=== PATIENT | male | born 1940 | race Caucasian/White ===

== ENCOUNTER 2018-03-09 09:57 | Day surgery (SDC) | payer MEDICARE, SELFPAY ==
[2018-03-09 10:15] VITALS: BP 141/78; PULSE 74; RESP 14; TEMP 37.4; O2SAT 96; BMI 30.4
[2018-03-09 10:36] LABS: Prothrombin Time Fingerstick 25.5 SEC (11.9-14.4)
--- NOTE | 2018-03-09 11:00 | COLBX_PTH ---
PATIENT: CLEVELAND MORLEY LOC: EN U#:[id number] AGE/SX: 77/M ROOM: RE03/09/[address]: Dr. Adin Garcia MD : 1940 BED: DIS: 03/09/2018 SPEC #: [id number] RECD: 03/09/18 15:12 STATUS: AASHISH KENRICK #: [id number] DARIANA: 03/09/18 11:[address]: Adin Garcia DEPT: SURGICAL PATHOLOGY RECD BY: Kayla Caputo ENTERED: 03/10/18 10:05 SP TYPE: COLON BX OT DR: Dr. Geoffrey Garcia III, MD Tissues: A - COLON BIOPSY B - Rectum, NOS Procedures: Surgery Specimen Level IV HEADER OPERATION: Colonoscopy (MAC) PRE-OP DIAGNOSIS: Diarrhea TISSUE SUBMITTED: A. Random colonic biopsies, B. Rectal polyp MICROSCOPIC DIAGNOSIS A. Colon, random biopsy: Fragments of colonic mucosa, no pathologic diagnosis. B. Rectal polyp, biopsy: Hyperplastic polyp. MENDEZ:jayjay 03/11/18 MICROSCOPIC DESCRIPTION Slides are reviewed. GROSS DESCRIPTION A - Received in fixative is one container labeled with the patient's name and designated random colonic biopsy. The specimen consists of multiple irregular fragments of light salazar soft tissue that in aggregate measure 1 x 1 x 0.1 cm. The specimen is totally submitted in one cassette. B - Received in fixative is one container labeled with the patient's name and designated rectal polyp. The specimen consists of one irregular fragment of light salazar soft tissue that measures 0.3 x 0.3 x 0.1 cm. The specimen is totally submitted in one cassette. / MENDEZ:jayjay 03/10/18 TC:1 CPT: 55211 x2
[2018-03-09 11:27] VITALS: BP 103/50; BP 141/78; PULSE 70; RESP 16; TEMP 36.6; O2SAT 93
[2018-03-09 11:31] VITALS: BP 105/55; BP 141/78; PULSE 66; RESP 16; O2SAT 93
--- NOTE | 2018-03-09 11:31 | OP.ENDO_ITS ---
Patient Name: Wilmer Thompson Procedure Date: 03/09/2018 10:37 AM Date of : 1940 Age: 77 Procedure: Colonoscopy Indications: Clinically significant diarrhea of unexplained origin Providers: Adin Garcia MD Medicines: See the Anesthesia note for documentation of the administered medications Patient Profile: Last Colonoscopy: February 2014. Complications: No immediate complications. Procedure: Pre-Anesthesia Assessment: - Prior to the procedure, a History and Physical was performed, and patient medications and allergies were reviewed. The patient's tolerance of previous anesthesia was also reviewed. The risks and benefits of the procedure and the sedation options and risks were discussed with the patient. All questions were answered, and informed consent was obtained. Prior Anticoagulants: The patient has taken Coumadin (warfarin), last dose was 1 day prior to procedure. ASA Grade Assessment: II - A patient with mild systemic disease. After reviewing the risks and benefits, the patient was deemed in satisfactory condition to undergo the procedure. After I obtained informed consent, the scope was passed under direct vision. Throughout the procedure, the patient's blood pressure, pulse, and oxygen saturations were monitored continuously. The colonoscope was introduced through the anus and advanced to the cecum, identified by appendiceal orifice and ileocecal valve. The colonoscopy was extremely difficult due to a tortuous colon. Successful completion of the procedure was aided by changing the patient to a supine position and using manual pressure. The patient tolerated the procedure well. The quality of the bowel preparation was good. Scope In: 10:50:58 AM Scope Withdrawal Time 0 hours 6 minutes 0 seconds Scope Out: 11:24:15 AM Total Procedure Duration Time 0 hours 33 minutes 17 seconds Findings: Hemorrhoids were found on perianal exam. Multiple diverticula were found in the sigmoid colon and descending colon. Biopsies for histology were taken with a cold forceps from the entire colon for evaluation of microscopic colitis. A 6 mm polyp was found in the rectum. The polyp was sessile. The polyp was removed with a cold biopsy forceps. Resection and retrieval were complete. Photograph was lost during processing. The exam was otherwise without abnormality. Impression: - Hemorrhoids found on perianal exam. - Diverticulosis in the sigmoid colon and in the descending colon. Biopsied. - One 6 mm polyp in the rectum, removed with a cold biopsy forceps. Resected and retrieved. - The examination was otherwise normal. A clear finding for the diarrhea is not established. Path is pending. Recommendation: - Discharge patient to home. - Resume previous diet. - Continue present medications. - Repeat colonoscopy in 5 years for surveillance based on pathology results. - Telephone my office for pathology results in 1 week. Procedure Code(s): --- Professional --- 92829, Colonoscopy, flexible; with biopsy, single or multiple Diagnosis Code(s): --- Professional --- K64.9, Unspecified hemorrhoids K62.1, Rectal polyp R19.7, Diarrhea, unspecified K57.30, Diverticulosis of large intestine without perforation or abscess without bleeding CPT copyright 2017 [employer]. All rights reserved. The codes documented in this report are preliminary and upon surgical resident review may be revised to meet current compliance requirements. Adin Garcia MD 03/09/2018 11:30:49 AM This report has been signed electronically. Number of Addenda: 0 Note Initiated On: 03/09/2018 10:37 AM
[2018-03-09 11:35] VITALS: BP 104/54; BP 141/78; PULSE 61; RESP 16; O2SAT 99
[2018-03-09 11:39] VITALS: BP 141/78; BP 97/55; PULSE 60; RESP 16; TEMP 36.5; O2SAT 93
[2018-03-09 12:02] VITALS: BP 141/78
== END 2018-03-09 12:04 | disposition home or self-care (01) ==
LOC: EN 09:57 → AC 09:59
PROVIDERS: Family Provider Family Medicine; PCP Family Medicine; Referring Provider Surgery; Visit Provider Surgery
PROC: 0DJD8ZZ Inspection of Lower Intestinal Tract, Via Natural or Artificial Opening Endoscopic (ICD-10-PCS; CPT 45378; principal; 2018-03-09 10:55)
DX: K62.1 Rectal polyp (principal); K64.9 Unspecified hemorrhoids; K57.30 Diverticulosis of large intestine without perforation or abscess without bleeding; R19.7 Diarrhea, unspecified; I48.91 Unspecified atrial fibrillation; F32.9 Major depressive disorder, single episode, unspecified; F41.9 Anxiety disorder, unspecified; I10 Essential (primary) hypertension; E78.00 Pure hypercholesterolemia, unspecified; Z87.891 Personal history of nicotine dependence; Z86.718 Personal history of other venous thrombosis and embolism; Z85.828 Personal history of other malignant neoplasm of skin; Z79.82 Long term (current) use of aspirin; Z79.01 Long term (current) use of anticoagulants; Z79.899 Other long term (current) drug therapy
CPT/HCPCS: 45380; 36416; 85610; 88305; J7120

== ENCOUNTER 2020-08-16 05:23 | Day surgery (SDC) | payer MEDICARE, SELFPAY ==
[2020-08-10 12:34] VITALS: BMI 28.8
--- NOTE | 2020-08-16 | EGD_PTH ---
PATIENT: CLEVELAND MORLEY LOC: EN U#:[id number] AGE/SX: 79/M ROOM: RE08/16/[address]: Dr. Adin Garcia MD : 1940 BED: DIS: 08/16/2020 SPEC #: [id number] RECD: 08/16/20 10:44 STATUS: AASHISH CHOUDHARY #: [id number] DARIANA: 08/16/20 00:[address]: Adin Garcia DEPT: SURGICAL PATHOLOGY RECD BY: Pablo Simons ENTERED: 08/16/20 10:45 SP TYPE: EGD BIOPSY OT DR: Dr. Geoffrey Garcia III, MD Tissues: A - Duodenum, NOS B - Gastric mucous membrane C - Cardioesophageal junction D - Gastric mucous membrane E - Esophageal mucous membrane Procedures: Special Stain Group II Surgery Specimen Level IV Alcian Blue/PAS (control) HEADER OPERATION: EGD ([facility]) PRE-OP DIAGNOSIS: Generalized abdominal pain, nausea TISSUE SUBMITTED: A - Duodenum biopsies, B - Antrum biopsy for H. pylori and path, C - Epigastric cardia polyp biopsy, D - GE junction biopsy, E - Mid esophagus biopsy MICROSCOPIC DIAGNOSIS A. Duodenum, biopsy: Mild Mary's gland hyperplasia. B. Gastric antrum, biopsy: Mild chronic gastritis with focal acute gastritis. See comment. C. Gastric cardia polyp, biopsy: Consistent with hyperplastic polyp, mildly inflamed. D. Gastroesophageal junction, biopsy: Chronic inflammation. Focal changes of reflux. No evidence of goblet cell metaplasia. See comment. E. Mid esophagus, biopsy: Fragments of benign squamous mucosa. No evidence of inflammation. AM:jayjay 08/17/2020 COMMENT B. The results of immunohistochemistry for Helicobacter pylori will be reported separately ([id number]). D. Alcian blue/PAS stain with matched control supports the above diagnosis. MICROSCOPIC DESCRIPTION Slides are reviewed. GROSS DESCRIPTION A - Received in fixative is one container labeled with the patient's name and designated duodenal biopsy. The specimen consists of multiple irregular fragments of light salazar soft tissue that in aggregate measure 0.7 x 0.5 x 0.1 cm. The specimen is totally submitted in one cassette. B - Received in fixative is one container labeled with the patient's name and designated antrum biopsy. The specimen consists of one irregular fragment of light salazar soft tissue that measures 0.5 x 0.2 x 0.1 cm. The specimen is totally submitted in one cassette. C - Received in fixative is one container labeled with the patient's name and designated epigastric polyp. The specimen consists of multiple irregular fragments of light salazar soft tissue that in aggregate measure 1.5 x 0.5 x 0.1 cm. The specimen is totally submitted in one cassette. D - Received in fixative is one container labeled with the patient's name and designated GE junction. The specimen consists of multiple irregular fragments of light salazar soft tissue that in aggregate measure 1 x 0.5 x 0.1 cm. The specimen is totally submitted in one cassette. E - Received in fixative is one container labeled with the patient's name and designated mid esophagus biopsy. The specimen consists of two irregular fragments of light salazar soft tissue that in aggregate measure 0.6 x 0.6 x 0.1 cm. The specimen is totally submitted in one cassette. / AM:jayjay 08/16/20 TC:2 CPT: 02117 x5, 18580
[2020-08-16 05:50] VITALS: BP 129/62; PULSE 59; RESP 16; TEMP 37.2; O2SAT 97; BMI 28.5
[2020-08-16] MEDS: Lactated Ringers 1,000 ML 100 ML IV (06:04)
[2020-08-16 06:11] LABS: Prothrombin Time Fingerstick 22.2 SEC (11.9-14.4)
--- NOTE | 2020-08-16 06:13 | HP.PCM_ITS ---
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: No Is patient in pain?: No (resolved) Allergies No Known Allergies Allergy (Verified 08/10/20 12:35) Medications amlodipine 5 mg tablet 5 mg PO DAILY 02/19/18 [History Confirmed 08/10/20] atorvastatin 20 mg tablet 20 mg PO DAILY 02/19/18 [History Confirmed 08/10/20] flecainide 100 mg tablet 100 mg PO Q12H 02/19/18 [History Confirmed 08/10/20] lisinopril 10 mg-hydrochlorothiazide 12.5 mg tablet 1 tab PO DAILY 02/19/18 [History Confirmed 08/10/20] sertraline 50 mg tablet 50 mg PO DAILY 02/19/18 [History Confirmed 08/10/20] warfarin 5 mg tablet 5 mg PO MOTUWETHFRSA 02/19/18 [History Confirmed 08/10/20] Warfarin Sodium 7 mg PO GILL 03/08/18 [History Confirmed 08/10/20] tamsulosin 0.4 mg capsule cap PO 08/10/20 [History Confirmed 08/10/20] [facility] Medical History (Updated 08/10/20 @ 13:[address] Adin Garcia MD) Nausea (Acute) Abdominal pain (Acute) Anxiety (Acute) Atrial fibrillation (Acute) Diarrhea (Acute) History of DVT (deep vein thrombosis) (Acute) History of basal cell carcinoma (Acute) History of colonic polyps (Acute) Hyperlipidemia (Acute) CKD (chronic kidney disease) (Chronic) Diverticulosis (Chronic) Hypertension (Chronic) Surgical History (Updated 08/10/20 @ 12:13 by Do [facility]) History of colonoscopy (Acute ~2018) History of elbow surgery (Acute) History of tonsillectomy (Acute) history bilateral cataract surgery (Acute) Family History (Updated 08/10/20 @ 12:16 by Do [employer]) Mother CAD (coronary artery disease) Father CAD (coronary artery disease) CHF (congestive heart failure) Brother Cancer Stomach Myocardial infarction Sister Asthma Social History (Updated 08/10/20 @ 13:[address] Adin Garcia MD) Smoking Status: Former smoker alcohol intake: current alcohol intake frequency: 0-2 drinks per day Alcohol type: other details: bhavin substance use type: does not use HPI HPI HPI: CLEVELAND MORLEY, is a 79 M who presents to the office today for surgical consultation regarding abdominal pain issues. The patient is referred by Dr. Geoffrey Garcia III and a written copy my surgical consult recommendations will return to him. Patient states that he has been unwell since Jayla time 2019. He has been complaining of a low abdominal pain. Nausea. No bright red blood per rectum or melena. No particular foods aggravate his situation but he is automatically dr opped down to a more bland diet. He has been feeling fatigued. He denies any exposure to COVID-19. He has not had any testing for COVID-19. Because of the discomfort he thought maybe it was a prostate infection but he states he was checked for that. He states that he had an ultrasound that was not revealing. We have evidence of a recent CT scan. That scan was performed without oral contrast but with and without IV contrast. Renal pathology was being evaluated. There was a 1.1 cm exophytic anterior lower pole lesion the right kidney. 3 mm calculus interpolar on the left. 1.8 cm simple cyst on the left. 1.2 cm exophytic lesion. There is not felt to be any biliary or bile findings albeit not with oral contrast. Mild hyperdense bilateral renal cyst. No acute pathology. Most recent laboratory demonstrates demonstrates normal liver function tests. Albumin 4.6. Total bilirubin 0.6. Alk phos 69. AST 20. His BUN is 24 and creatinine 1.43. GFR 48. Glucose slightly elevated 103. His white blood cell count 7.39 with a hemoglobin 14.8 hematocrit 42.9 platelet count 207,000. Now it is of note that I assisted him with a colonoscopy in 2018. There were no acute findings. Random colonic biopsies which were performed for diarrhea were normal After being seen by Dr. Geoffrey Garcia III the patient was initiated on omeprazole therapy. He actually is feeling some better. The nausea has improved. The abdominal pain has improved. HPI HPI HPI: CLEVELAND MORLEY, is a 79 M who presents to the office today for ROS General General: Yes appetite; no weight change, fatigue, colon cancer, breast cancer or weakness HEENT HEENT: No difficulty swallowing, eye injury, eye surgery, swollen glands or hoarseness Endo Endocrine: No thyroid disease, diabetes mellitus, thyroid cancer, Hair loss, heat intolerance or cold intolerance Musc Musculoskeletal: No back problems, arthritis, rheumatoid arthritis, gout or joint pain Cardio Cardiovascular: Yes atrial fibrillation and high blood pressure; no murmur, pacemaker, heart disease, heart attack, heart stent, palpitations, shortness of breat with exertion or chest pain Psych Psychiatric: Yes anxiety; no depression or hearing voices Resp Respiratory: No shortness of breath, No sleep apnea, No cough, No COPD, No asthma, No emphysema, No wheezing Gastro Gastrointestinal: Yes abdominal pain, Yes nausea or vomiting, No diarrhea, No constipation, No blood in stool, No acid reflux, No hemorrhoids, No ulcers, No gallbladder problem, No black,tarry stools Julio Cesar Hematologic: Yes blood thinners, No blood disorders, No bleeding, No anemia, Yes blood clots Neuro Neurologic: No weakness Exam Const General: cooperative, healthy appearing, comfortable, no acute distress Other: Diffuse tremors noted HENDC Head: normal to inspection Eyes General: appearance normal, both eyes and all related structures Chest Other: Increased anterior posterior diameter Resp Effort & Inspection: normal respiratory effort Auscultation: clear to auscultation bilaterally Cardio Rate: regular rate Rhythm: regular rhythm Heart Sounds: no murmurs GI Palpation: soft, no hepatosplenomegaly Auscultation: normal bowel sounds Musc Cervical Spine: normal cervical lordosis Neuro Cognition: normal cognition Extrem General: no calf tenderness Psych Affect: normal affect Assessment & Plan Problems 1. Generalized abdominal pain R10.84 2. Nausea R11.0 Plan Nausea and abdominal pain of undetermined etiology. Slightly improved on omeprazole therapy. I recommend a esophagogastroduodenoscopy with possible biopsy or polypectomy as indicated. He is aware of the technique, benefit, risk, alternatives. He is on Coumadin because of atrial fibrillation. We will have him hold that 2 days. He does have an interest in going to [place]. We will try to expedite his care. It may very well be that ongoing omeprazole therapy is the treatment of choice. We will inspect for active upper GI findings as well as H. pylori and eosinophilic esophagitis. I appreciate the opportunity of assisting with his surgical care Copy: Dr. Geoffrey Garcia, [facility] Adin Garcia M.D., F.A.C.S. I have re-examined the patient. There are no clinical changes since date of exam. Procedure Criteria Procedure Type: Elective COVID Risk Discussion: The surgeon/proceduralist and patient have discussed in detail the risk of exposure to and/or potential harm posed by the COVID-19 virus with having a surgery/procedure at this time versus the risk of delaying the surgery/procedure. It is not possible to know either the risk of delaying the surgery or procedure or chance of getting an infection with perfect accuracy, but a joint decision was made between the patient and the surgeon/proceduralist to proceed at this time with the scheduled surgery/procedure as indicated on the consent form.
--- NOTE | 2020-08-16 06:30 | IMM_PTH ---
PATIENT: CLEVELAND MORLEY LOC: EN U#:[id number] AGE/SX: 79/M ROOM: RE08/16/[address]: Dr. Adin Garcia MD : 1940 BED: DIS: 08/16/2020 SPEC #: [id number] RECD: 08/16/20 12:21 STATUS: AASHISH REAddison #: [id number] DARIANA: 08/16/20 06:[address]: Adin Garcia DEPT: IMMUNOHISTOCHEMISTRY RECD BY: Chanda Sidhu ENTERED: 08/16/20 12:22 SP TYPE: IMMUNO OTHR DR: Dr. Geoffrey Garcia III, MD Tissues: B - Stomach, NOS Procedures: H Pylori (initial) PHYSICIAN & INSTITUTION [place] [address] SPECIMEN INFORMATION: Tissue Source: B - Antrum biopsy Clinical Info: Abdominal pain, nausea Specimen Number: [id number] CPT code: 87038 METHODOLOGY: Deparaffinized sections of prefer/formalin-fixed tissue or PAP/DQ stained slides are incubated with monoclonal/polyclonal antibodies/oligonucleotide probes. Localization is made via biotin free immunoperoxidase method. Appropriate controls are performed and reacted as expected. Results on target cell population are indicated in the following table: RESULTS: ANTIBODY / CLONE RESULT Block B H Pylori (polyclonal) negative These tests were developed and their performance characteristics determined by [facility]. They may not have been cleared or approved by the U.S. Food and Drug Administration. The FDA has determined that such clearance or approval is not necessary. INTERPRETATION: B. Antrum, biopsy: Negative for Helicobacter pylori organisms. AM:jayjay 08/17/2020
[2020-08-16 07:00] VITALS: BP 129/62; BP 92/57; PULSE 61; RESP 16; TEMP 36.9; O2SAT 93
--- NOTE | 2020-08-16 07:02 | OP.EGD_ITS ---
Patient Name: Wilmer Thompson Procedure Date: 08/16/2020 6:23 AM Date of : 1940 Age: 79 Procedure: Upper GI endoscopy Indications: Generalized abdominal pain Providers: Adin Garcia MD Referring MD: Geoffrey Garcia Iii Medicines: See the Anesthesia note for documentation of the administered medications Complications: No immediate complications. Procedure: Pre-Anesthesia Assessment: - Prior to the procedure, a History and Physical was performed, and patient medications and allergies were reviewed. The patient's tolerance of previous anesthesia was also reviewed. The risks and benefits of the procedure and the sedation options and risks were discussed with the patient. All questions were answered, and informed consent was obtained. Prior Anticoagulants: The patient has taken no previous anticoagulant or antiplatelet agents. ASA Grade Assessment: II - A patient with mild systemic disease. After reviewing the risks and benefits, the patient was deemed in satisfactory condition to undergo the procedure. After obtaining informed consent, the endoscope was passed under direct vision. Throughout the procedure, the patient's blood pressure, pulse, and oxygen saturations were monitored continuously. The Endoscope was introduced through the mouth, and advanced to the second part of duodenum. The upper GI endoscopy was accomplished without difficulty. The patient tolerated the procedure well. Scope In: 6:41:05 AM Scope Out: 6:53:37 AM Total Procedure Duration Time 0 hours 12 minutes 32 seconds Findings: Esophagitis with no bleeding was found 41 cm from the incisors. Biopsies were taken with a cold forceps for histology. A 1 cm hiatal hernia was present. The middle third of the esophagus was normal. Biopsies were taken with a cold forceps for histology. A single 10 mm sessile polyp with no bleeding and stigmata of recent bleeding was found in the cardia. The polyp was removed with a cold biopsy forceps. Resection and retrieval were complete. Diffuse mildly erythematous mucosa without bleeding was found in the gastric antrum. Biopsies were taken with a cold forceps for histology. Diffuse mild inflammation characterized by erythema and friability was found in the duodenal bulb. Biopsies were taken with a cold forceps for histology. Impression: - Reflux esophagitis. Biopsied. - 1 cm hiatal hernia. - Normal middle third of esophagus. Biopsied. - A single gastric polyp. Resected and retrieved. - Erythematous mucosa in the antrum. Biopsied. - Duodenitis. Biopsied. Recommendation: - Discharge patient to home. - Resume previous diet. - Continue present medications. - Telephone my office for pathology results in 1 week. Findings of duodenitis could correlate with nausea and abdominal pain improved with omeprazole. Will notify pt of pathology. Procedure Code(s): --- Professional --- 37612, Esophagogastroduodenoscopy, flexible, transoral; with biopsy, single or multiple Diagnosis Code(s): --- Professional --- K21.0, Gastro-esophageal reflux disease with esophagitis K44.9, Diaphragmatic hernia without obstruction or gangrene K31.7, Polyp of stomach and duodenum K31.89, Other diseases of stomach and duodenum K29.80, Duodenitis without bleeding R10.84, Generalized abdominal pain CPT copyright 2017 [employer]. All rights reserved. The codes documented in this report are preliminary and upon clinical scientist review may be revised to meet current compliance requirements. Adin Garcia MD 08/16/2020 7:01:52 AM This report has been signed electronically. Number of Addenda: 0 Note Initiated On: 08/16/2020 6:23 AM
--- NOTE | 2020-08-16 07:02 | OP.CCLET_ITS ---
08/16/2020 Geoffrey Garcia [address] [place] [address] Re : Upper GI endoscopy procedure for Wilmer Guinda Dear Dr. Garcia This procedure was performed on August. My impressions and recommendations are as follows: Impressions : - Reflux esophagitis. Biopsied. - 1 cm hiatal hernia. - Normal middle third of esophagus. Biopsied. - A single gastric polyp. Resected and retrieved. - Erythematous mucosa in the antrum. Biopsied. - Duodenitis. Biopsied. Recommendations : - Discharge patient to home. - Resume previous diet. - Continue present medications. - Telephone my office for pathology results in 1 week. Findings of duodenitis could correlate with nausea and abdominal pain improved with omeprazole. Will notify pt of pathology. My findings are described in the full procedure note, which is enclosed. If I can be of further assistance, please feel free to contact me at Doctor phone number(s): Work: . Sincerely, Adin Garcia MD 08/16/2020 7:01:52 AM This report has been signed electronically.
[2020-08-16 07:05] VITALS: BP 112/71; BP 129/62; PULSE 56; RESP 16; O2SAT 93
[2020-08-16 07:10] VITALS: BP 129/62; BP 93/57; PULSE 57; RESP 16; O2SAT 93
[2020-08-16 07:15] VITALS: BP 116/69; BP 129/62; PULSE 60; RESP 16; TEMP 36.9; O2SAT 94
[2020-08-16 07:25] VITALS: BP 129/62
== END 2020-08-16 07:41 | disposition home or self-care (01) ==
LOC: EN 05:24 → AC 05:25
PROVIDERS: PCP Family Medicine; Referring Provider Family Medicine; Visit Provider Surgery
PROC: 0DJ08ZZ Inspection of Upper Intestinal Tract, Via Natural or Artificial Opening Endoscopic (ICD-10-PCS; CPT 43235; principal; 2020-08-16 06:25)
DX: K21.00 Gastro-esophageal reflux disease with esophagitis, without bleeding (principal); K29.50 Unspecified chronic gastritis without bleeding; K29.80 Duodenitis without bleeding; K44.9 Diaphragmatic hernia without obstruction or gangrene; N18.30 Chronic kidney disease, stage 3 unspecified; F32.9 Major depressive disorder, single episode, unspecified; Z20.828 Contact with and (suspected) exposure to other viral communicable diseases; K31.7 Polyp of stomach and duodenum; I48.91 Unspecified atrial fibrillation; E78.5 Hyperlipidemia, unspecified; F41.9 Anxiety disorder, unspecified; I12.9 Hypertensive chronic kidney disease with stage 1 through stage 4 chronic kidney disease, or unspecified chronic kidney disease; Z86.718 Personal history of other venous thrombosis and embolism; Z87.891 Personal history of nicotine dependence; Z79.01 Long term (current) use of anticoagulants; Z79.899 Other long term (current) drug therapy
CPT/HCPCS: 43239; 36416; 85610; 87426; 88305; 88313; 88342; C9803; J7120; J2405

== ENCOUNTER 2020-08-24 11:41 | Emergency (ER) | payer MEDICARE, SELFPAY ==
[2020-08-24 11:42] VITALS: BP 125/62; PULSE 53; RESP 14; TEMP 36.4; O2SAT 99; BMI 30.4
--- NOTE | 2020-08-24 11:50 | EKG12_ITS ---
Test Reason : SYNCOPE Blood Pressure : / mmHG Vent. Rate : 053 BPM Atrial Rate : 053 BPM P-R Int : 262 ms QRS Dur : 182 ms QT Int : 454 ms P-R-T Axes : 047 -55 068 degrees QTc Int : 426 ms Sinus bradycardia with 1st degree A-V block Left axis deviation Right bundle branch block Left ventricular hypertrophy with repolarization abnormality Abnormal ECG Confirmed by OMAR PARKS, JIM ([id number]), magazine editor LIZZIE BEARD ([id number]) on 08/27/2020 10:54:57 A M Referred By: DWIGHT/NICKY Confirmed By:JOSE NELSON MD
--- NOTE | 2020-08-24 11:52 | ED.DCSUM_ITS ---
History of Present Illness Chief Complaint: Syncope Informant: Patient, Family Narrative: 9-year-old male presenting with near syncopal episode. This occurred after his urology visit. Patient was supposed to have a urinalysis performed and was having difficulty urinating. He was not straining he states. Patient states that after he walked outside of the building he started to feel little lightheaded. He sat down. He waited about 10 minutes until he felt better. On his way over here he had a little bit more lightheadedness. Patient is on Coumadin for atrial fibrillation. He denies any chest pain, palpitations, shortness of breath. Past Medical History - Allergies and Home Meds Allergies/Adverse Reactions: Allergies No Known Allergies Allergy (Verified 08/24/20 11:46) Primary Care Physician: Geoffrey Garcia III, MD [Primary Care Provider] - Prior records reviewed: Yes Past Medical History: - - Atrial fibrillation, CKD, hypertension, hyperlipidemia, atrial fibrillation, anxiety Lives: Spouse/ Significant Other Smoking Status: Former smoker Alcohol: None Drugs: None Review of Systems General: Denies: Chills, Fever, Sweats Eyes: Denies: Visual changes - bilaterally, Diplopia ENT: Denies: Rhinorrhea, Sore throat Cardiovascular: Reports: - - Lightheadedness. Denies: Chest pain, Palpitations Respiratory: Denies: Dyspnea, Cough, Dyspnea on exertion Gastrointestinal: Denies: Abdominal pain, Nausea, Vomiting, Diarrhea, Melena, Hematochezia Genitourinary: Denies: Dysuria, Hematuria, Frequency Musculoskeletal: Denies: Back pain, Extremity Pain Skin: Denies: Rash, Wounds Neurological: Denies: Headache, Weakness, Numbness Psych: Denies: Depression, Anxiety, Suicidal thoughts, Suicidal ideations, -, - Physical Exam Vital Signs/Narrative: Vital Signs Temp Pulse Resp BP Pulse Ox 08/24/20 11:42 97.5 F L 53 L 14 125/62 H 99 Inital Vital Signs reviewed: Yes General: Well nourished, No Acute Distress Head: Normocephalic, Atraumatic Eyes: Perrl, EOMI. Negative for: Pale conjunctiva ENT: Moist mucous membranes, No rhinorrhea Cardiovascular: Regular rate, Regular rhythm Respiratory: No distress, CTA bilaterally Extremities: Nontender, No edema Skin: Normal color, No rash, Cyanosis, Diaphoresis Neurological: Alert, Oriented x3, Cranial nerves II-XII grossly intact Psychological: Normal affect, Normal Mood Diagnostic/Tx/Re-eval Clinical Impression(s) from Imaging Studies Chest X-Ray 08/24/20 12:15 IMPRESSION: No acute abnormality is seen. Electronically Signed: Willam Levy MD at 12:47 EDT , Service support , Brain CT 08/24/20 12:54 IMPRESSION: Chronic involutional changes of the brain. Electronically Signed: Willam Levy MD at 13:53 EDT , Service support , Laboratory Data 08/24/20 08/24/20 08/24/20 12:11 12:11 12:11 WBC 7.9 RBC 4.21 L Hgb 13.6 Hct 39.0 L MCV 92.6 MCH 32.3 H MCHC 34.9 RDW Std Deviation 39.3 RDW Coeff of Pierre 11.6 Plt Count 170 MPV 9.7 Immature Gran % (Auto) 0.400 Neut % (Auto) 78.6 H Lymph % (Auto) 9.9 L [place] % (Auto) 10.4 H Eos % (Auto) 0.4 Baso % (Auto) 0.3 Absolute Neuts (auto) 6.2 Absolute Lymphs (auto) 0.78 L Nucleated RBC % 0 PT 21.7 H INR 1.9 Sodium 129 L Potassium 4.0 Chloride 96 L Carbon Dioxide 27.0 Anion Gap 6 BUN 31 H Creatinine 1.98 H Estim Creat Clear Calc 31.75 Est GFR (MDRD) Af Amer 42 L Est GFR (MDRD) Non-Af 35 L BUN/Creatinine Ratio 15.7 Glucose 147 H Calcium 9.0 Troponin I 0.016 - Medical Decision Making Patient with near syncopal episode x2 prior to arrival. He denies any chest pain, palpitations, shortness of breath. He does have a slight posterior he adache. He denies any head injury. Patient had EKG performed on arrival which shows sinus bradycardia with first-degree AV block at 53 bpm as interpreted by myself. Patient is orthostatic negative. Patient had CT brain which is negative for acute findings. 1 view chest x-ray as interpreted by myself shows no acute cardiopulmonary process. Patient CBC shows no leukocytosis. Hemoglobin is stable. Patient's BMP does show an increase in his creatinine from 1.43-1.98 from August 06 this month. It does not appear to be prerenal. Patient's medications were reviewed and it is noted that he is on lisinopril HCTZ 10?12 0.5. Patient was discussed with Dr. Durant who recommended giving him a prescription for just the lisinopril and keeping his amlodipine 5 mg. He is to schedule an office appointment in 2 weeks for repeat labs and blood pressure check. Patient and acknowledged understanding. Patient stable for discharge at this time. Impression: 1. Near syncope 2. Acute kidney injury ED Disposition - Plan for ED Patient: Disposition: Home or Assisted Living Instructions: Kidney Disease: Understanding Fluids, ED Near-Fainting, Uncertain Cause Prescriptions: Lisinopril [Zestril] 10 mg PO DAILY #30 tablet Transmission Status: Received by [facility] Referrals: Geoffrey Garcia III, MD [Primary Care Provider] -
[2020-08-24] MEDS: 0.9% Normal Saline 1,000 ML 999 ML IV (12:00)
--- NOTE | 2020-08-24 12:15 | RAD_ITS ---
STUDY: X-RAY CHEST REASON FOR EXAM: Male, 79 years old. Chest pain TECHNIQUE: Single AP portable view of the chest. COMPARISON: None. FINDINGS: EKG electrodes are seen. The lungs are clear and expanded. There is no demonstrated pleural abnormality. Normal size heart. Normal mediastinum and wyatt. Normal visualized pulmonary arteries. Normal visualized aortic arch and descending thoracic aorta. There are diffuse degenerative changes of the visualized thoracic spine. Normal visualized ribs, clavicles, and shoulders. There is no demonstrated abnormality of the visualized soft tissue structures of the upper abdomen. RAD/Chest 1 View (Portable) IMPRESSION: No acute abnormality is seen. Electronically Signed: Willam Levy MD at 12:47 EDT , Service support ,
[2020-08-24 12:26] LABS: Absolute Lymphocyte Count 0.78 X10^3/uL (0.83-4.51); Absolute Neutrophil Count 6.2 X10^3/uL (2.0-7.7); Basophil# 0.02 X10^3/uL; Basophil% 0.3 % (0-1); Eosinophil# 0.03 X10^3/uL; Eosinophils% 0.4 % (0-5); Hemoglobin 13.6 g/dL (13.0-16.5); Lymphocyte # 0.78 X10^3/ul (4.0); Lymphocyte % 9.9 % (19-41); Mean Corp Hgb Conc 34.9 g/dL (32-36); Mean Corpuscular Hgb 32.3 pg (27.0-32.0); Mean Corpuscular Volume 92.6 fL (80-94); Mean Platelet Vol. 9.7 fl (6.2-12.0); Monocyte# 0.82 X10^3/uL; Monocyte% 10.4 % (0-10); NRBC Flagged by Analyzer 0 % (0-5); Neutrophil # 6.19 X10^3/uL (2.7-7.7); Neutrophil % 78.6 % (47-70); Platelet Count 170 K/mm3 (150-450); RBC Distribution Width CV 11.6 % (11.6-14.6); RBC Distribution Width SD 39.3 fl (35.1-43.9); Red Blood Count 4.21 M/mm3 (4.6-6.2); White Blood Count 7.9 K/mm3 (4.4-11.0)
[2020-08-24 12:35] LABS: International Normalized Ratio 1.9; Prothrombin Time (Protime)PT. 21.7 SECONDS (11.7-14.9)
[2020-08-24 12:45] LABS: Anion Gap 6 (5-15); BUN 31 mg/dL (7-18); BUN/Creat Ratio 15.7 RATIO (10-20); Chloride 96 mmol/L (98-107); Creatinine, Serum 1.98 mg/dL (0.70-1.30); EST Glomerular Filtration Rate 35 mL/min (>60); Est Glom Filt Rate - Afr Amer 42 mL/min (>60); Estimated Creatinine Clearance 31.75 ml/min; Glucose 147 mg/dL (74-106); Sodium Level 129 mmol/L (136-145)
--- NOTE | 2020-08-24 12:54 | CT_ITS ---
STUDY: CT BRAIN WITHOUT CONTRAST REASON FOR EXAM: Male, 79 years old. HEADACHE. Near syncopal episode. RADIATION DOSAGE (If Supplied By Facility): CTDIvol = ( 38.43 ) mGy, DLP = ( 755.92 ) mGycm TECHNIQUE: Transaxial CT imaging of the brain was performed without administration of intravenous contrast material. Individualized dose optimization techniques were used for this CT. COMPARISON: No relevant priors. FINDINGS: Normal soft tissue structures. Normal calvarium. There is mild cerebral atrophy with widening of the extra-axial spaces and ventricular dilatation. Normal white matter tracts of the cerebral hemispheres. Normal basal ganglia and thalami. Normal brainstem. Normal cerebellum. There is no intracranial hemorrhage. There are no findings of an acute ischemic infarction. Atherosclerotic calcification of the cavernous portions of the internal carotid arteries bilaterally. Normal visualized paranasal sinuses. CT/Brain/Head without Contrast IMPRESSION: Chronic involutional changes of the brain. Electronically Signed: Willam Levy MD at 13:53 EDT , Service support ,
[2020-08-24 13:12] VITALS: BP 112/65; BP 118/54; BP 125/73; PULSE 55; PULSE 58; PULSE 60; PULSE 61; RESP 14; O2SAT 99
[2020-08-24 14:48] VITALS: BP 121/64; PULSE 61; RESP 12; O2SAT 96
== END 2020-08-24 15:04 | disposition home or self-care (01) ==
PROVIDERS: Emergency Provider Student in an Organized Health Care Education/Training Program; PCP Family Medicine
DX: R55 Syncope and collapse (principal); N17.9 Acute kidney failure, unspecified; N18.9 Chronic kidney disease, unspecified; I48.91 Unspecified atrial fibrillation; Z87.891 Personal history of nicotine dependence; Z79.01 Long term (current) use of anticoagulants
CPT/HCPCS: 70450; 71045; 80048; 84484; 85025; 85610; 93005; 96360; 96361; 99285; A4216

== ENCOUNTER 2025-03-02 15:56 | Inpatient (IN) | payer MEDICARE, SELFPAY ==
[2025-03-02] VITALS (10 sets, daily range): BP systolic 97–177; BP diastolic 58–96; PULSE 64–85; RESP 11–18; TEMP 36.4–36.6; O2SAT 93–99; BMI 30.5
--- NOTE | 2025-03-02 16:16 | RAD_ITS ---
PROCEDURE: HIP, UNI W/ PELVIS 2-3 VIEWS 03/02/2025 REASON FOR EXAM: INJURY/PAIN TECHNIQUE: Procedure Code: RAD Modality: DX Procedure: HIP, UNI W/ PELVIS 2-3 VIEWS Laterality: FINDINGS: No evidence of acute fracture or dislocation. [id number] degenerative changes of the bilateral hips. Degenerative changes of the partially visualized spine. RAD/HIP, UNI W/ Pelvis 2-3 Views IMPRESSION: No acute osseous abnormalities. Bilateral hip osteoarthrosis. Reading Location: [id number]
--- NOTE | 2025-03-02 16:40 | CT_ITS ---
PROCEDURE: BRAIN/HEAD WITHOUT CONTRAST 03/02/2025 REASON FOR EXAM: INJURY/PAIN TECHNIQUE: Procedure Code: CTBR Modality: CT Procedure: BRAIN/HEAD WITHOUT CONTRAST Coronal and Sagittal reconstruction series were provided. One or more dose reduction techniques were used (e.g., Automated exposure control, adjustment of the mA and/or kV according to patient size, use of iterative reconstruction technique. RADIATION DOSE SUMMARY: CTDlvol: 44 mGy DLP: 914 mGycm COMPARISON: 08/24/2020. FINDINGS: The ventricles are normal in size and midline in position. No evidence of acute hemorrhage or infarction. No extra-axial blood or fluid collections. The paranasal sinuses and mastoid air cells are clear. The calvarial vault and skull base are intact. CT/Brain/Head without Contrast IMPRESSION: No acute intracranial abnormality. Reading Location: [id number]
--- NOTE | 2025-03-02 17:08 | EX.ED.GENINJ ---
HPI History of Present Illness Chief Complaint: Fall Detail of Chief Complaint: Patient was braiding the house and slipped and fell onto his right side. Informant: patient and spouse/S.O. Onset/Context/Timing Onset: Today and Hours Mechanism/Context: Blunt Injury and Fall Location of pain/injuries: Right hip Quality of Pain: Dull and Aching Location: Over the right greater trochanteric region and buttocks Current Severity: Mild Maximum Severity: Severe Worsened by: Movement and increased as he waited in the emergency department Relieved by: Temporary relief with Dilaudid. Associated Symptoms Associated Symptoms: Positive for Loss of function and Inability to ambulate; Negative for Parasthesias, Weakness or Loss of consciousness Narrative Narrative: Patient is an 84-year-old male. He slipped and fell while spraining the siding with Clorox. He presents because of trauma to his head, upper extremity and right hip area. He is on anticoagulant. He is on Coumadin. Is on Coumadin for prior DVT and dysrhythmia. Reviewing records indicates he has history of atrial fibrillation. He denies headache, double vision, blurred vision or loss of vision. Eyes cardona ears decreased hearing. Denies neck pain. He denies paresthesia, anesthesia or motor weakness in the upper or lower extremity. He denies chest pain, pressure, tightness or heaviness. No shortness of breath or difficulty breathing. He denies abdominal pain. Denies flank pain. He denies pain in his upper extremities or his left lower extremity. He does have cuts that will require repair. He denies low back pain. Tetanus Immunization: 5-10 years Prior similar symptoms: No Recent Illness/Hospitalization: No [facility] Medical History Acetabulum fracture Nausea Abdominal pain History of basal cell carcinoma CKD (chronic kidney disease) Diverticulosis Hyperlipidemia History of colonic polyps Diarrhea Anxiety Hypertension History of DVT (deep vein thrombosis) Atrial fibrillation Home Medications ?Medication ?Instructions ?Recorded ?Last Taken ?Type atorvastatin 20 mg tablet (Lipitor) 20 mg PO DAILY 02/19/18 Unknown History warfarin 5 mg tablet (Coumadin) 5 mg PO MOTUWETHFRSA 02/19/18 03/07/18 History warfarin 6 mg tablet 5 mg PO SUTUWETHSA 03/08/18 Unknown History lisinopril 10 mg tablet 10 mg PO DAILY #30 tabs 03/19/21 Unknown Rx albuterol sulfate 90 mcg/actuation 2 puff inhalation DAILY PRN 03/02/25 Unknown History aerosol inhaler shortness of breath or wheezing doxycycline hyclate 100 mg tablet 100 mg PO BID 03/02/25 Unknown History sertraline 100 mg tablet 100 mg PO DAILY 03/02/25 Unknown History umeclidinium 62.5 mcg-vilanterol inhalation DAILY 03/02/25 Unknown History 25 mcg/actuation powdr for inhalation (Anoro Ellipta) Allergy/AdvReac Type Severity Reaction Status Date / Time No Known Allergies Allergy Verified 03/02/25 15:57 Family History (Updated 08/10/20 @ 12:16 by Do Cornell) Mother CAD (coronary artery disease) Father CAD (coronary artery disease) CHF (congestive heart failure) Brother Cancer Stomach Myocardial infarction Sister Asthma Surgical History S/P Mohs surgery for basal cell carcinoma History of colonoscopy (~2017) history bilateral cataract surgery History of elbow surgery History of tonsillectomy Social History Smoking Status: Former smoker alcohol intake: current alcohol intake frequency: 0-2 drinks per day Alcohol type: other details: bhavin substance use type: does not use ROS ROS ED Constitutional Constitutional ED: Denies chills, fever(s), subjective or sweats Eyes Eyes: Denies blurry vision or change in vision ENT ENT ED: Denies ear pain, rhinorrhea or sore throat Cardiovascular Cardiovascular: Denies chest pain, palpitations or racing heartbeat Respiratory/Chest Respiratory/Chest: Denies cough, dyspnea or dyspnea on exertion Gastrointestinal Gastrointestinal: Denies abdominal pain, melena, nausea or vomiting Genitourinary Genitourinary ED: Denies dysuria, hematuria or urinary frequency Musculoskeletal Musculoskeletal: Reports other Details: Pain right hip region ; Denies arthralgias, back pain, myalgias or neck pain Integumentary Reports rash Psychiatric Psychiatric: Denies anxiety or depression Endocrine Endocrinology: Reports cold intolerance and heat intolerance Hematologic/Lymphatic Hematologic/Lymphatic: Reports easy bleeding, easy bruising and other Details: Patient is on anticoagulant for A-fib and remote history of DVT EXAM Physical Exam Const Vital Signs: 03/02/25 15:57 03/02/25 16:01 03/02/25 16:02 Temperature 97.8 F Temperature Source Oral Pulse Rate 71 64 Respiratory Rate 18 16 Respiratory Effort Normal Respiratory Depth Normal Respiratory Pattern Normal Blood Pressure 126/96 H 135/82 H Blood Pressure Mean 106 99 Pulse Ox 99 98 Oxygen Delivery Method Room Air Room Air 03/02/25 17:14 03/02/25 18:00 03/02/25 19:00 Temperature Temperature Source Pulse Rate 68 77 81 Respiratory Rate 14 16 16 Respiratory Effort Respiratory Depth Respiratory Pattern Blood Pressure 138/76 H 177/83 H 111/60 Blood Pressure Mean 96 114 77 Pulse Ox 95 99 96 Oxygen Delivery Method Room Air 03/02/25 20:00 03/02/25 21:00 03/02/25 22:00 Temperature Temperature Source Pulse Rate 77 73 78 Respiratory Rate 11 L 18 18 Respiratory Effort Respiratory Depth Respiratory Pattern Blood Pressure 97/82 H 121/63 H 118/58 L Blood Pressure Mean 87 82 78 Pulse Ox 94 94 93 Oxygen Delivery Method Room Air Room Air 03/02/25 22:23 Temperature 97.6 F L Temperature Source Pulse Rate 76 Respiratory Rate 18 Respiratory Effort Respiratory Depth Respiratory Pattern Blood Pressure 118/58 L Blood Pressure Mean 78 Pulse Ox 97 Oxygen Delivery Method Positive well nourished, well developed and obese Constitutional Narrative: The patient has a laceration right parietal area. There is also a laceration upper extremities. These were require suturing. General Appearance ED: well developed; Negative for NAD Nutritional Appearance: obese HEENT Reports TM's clear HEENT Narrative: There is no palp depression or findings of suggestive of basilar skull fracture. trauma and tenderness; Negative for atraumatic Nose: Negative for septum abnormal Tympanic Membrane ED: Yes TM's clear Eyes PERRL and EOMs intact bilaterally General Eye ED: Yes other Other Details: There is no nystagmus. There is no subconjunctival hemorrhage. Neck full ROM Neck Narrative: Trachea is midline. There is no stridor. General: Negative for tenderness Chest Wall inspection of chest normal and palpation of chest normal Resp normal respiratory effort and clear to auscultation bilaterally Cardio S1 normal heart sound, S2 normal heart sound and no murmurs Rate: regular rate Rhythm: abnormal rhythm irregularly irregular GI normal to inspection, nondistended, normoactive bowel sounds, non-tender, non-distended and no masses Back/Spine no thoracic nor lumbar tenderness Back/Spine Narrative: There is pain outpatient near the right ischial tuberosity and over the right greater trochanteric region. Logrolling does not cause him discomfort. There is no shortening the leg. Brayden Bri 4 test causes him pain in the gluteal area. He states the pain is significant. Distal pulses are palpable. Extremity normal to inspection; Negative for full ROM Extremity Narrative: Limited range of motion of the right lower leg because of pain in his proximal lateral right thigh. Neuro oriented x3, CN's II-XII intact bilaterally, moves all extremities, no focal motor deficits, no sensory deficits noted and No gait normal [place] Coma Scale: document GCS findings Spontaneous Obeys Commands Oriented 15 Sensorium / Orientation: alert Deep Tendon Reflexes: Rt Triceps (C7): 1+, Lt Triceps (C7): 1+, Rt Biceps (C5, C6): 1+, Lt Biceps (C5, C6): 1+, Rt Brachioradialis (C6): 1+, Lt Brachioradialis (C6): 1+, Rt Patellar (L4): 1+, Lt Patellar (L4): 1+, Rt Ankle (S1): 1+ and Lt Ankle (S1): 1+ Deep Tendon Reflexes Back: Rt Patellar (L4): 1+, Lt Patellar (L4): 1+, Rt Ankle (S1): 1+ and Lt Ankle (S1): 1+ Plantar Reflex: Downgoing: bilateral Psych mental status grossly normal and thought process normal PROC Procedures Other Procedures Procedure(s): Laceration repair: 1. Scalp located right temporal parietal area. Length 1.4 cm. Wound was prepped draped sterile manner. Anesthetized with 1% lidocaine by local infiltration 1 cc. Cleansed with surge cleanse and irrigated with normal saline 100 cc. 2 [address] were [address] with good approximation and hemostasis. 2. Laceration lateral right elbow. Length 1.5 cm patient's wound was prepped draped sterile manner. Anesthetized with 1% lidocaine with local infiltration, 1 cc. Using 5-0 Ethilon 3 simple interrupted stitches was placed. 3. Laceration webspace left hand 4.0 cm. Wound was anesthetized with 1% lidocaine, 3 cc was infiltrated. Wound was irrigated with 250 cc of normal saline. Using 5-0 Ethilon 7 interrupted sutures placed with good cosmesis and hemostasis. MDM MDM MDM Narrative Medical decision making narrative: Since patient is on anticoagulant will obtain CT of the head to rule out intracranial bleed. Israeli CT head rule. This was obtained to rule out subdural hematoma, epidural hematoma, intraparenchymal contusion and traumatic subarachnoid hemorrhage. X-ray of the hip was obtained to rule out fracture. Per my independent read there was no fracture. Radiologist agreed there was no fracture. Since patient was able to ambulate CT was obtained which revealed a comminuted acetabular fracture. Lab Data Attestation: I reviewed the patient's lab results. Labs: Laboratory Results - last 24 hr 03/02/25 17:10 PT 24.3 H INR 2.1 Radiography Chest X-Ray - ED: Read by ED Physician (Three-view x-ray of the right hip was independent reviewed interpreted by me at 1706 as negative. There is no fracture, subluxation dislocation of the femur or pelvis.) Diagnostic Testing: Clinical Impression(s) from Imaging Studies Hip/Pelvis X-Ray 03/02/25 16:16 IMPRESSION: No acute osseous abnormalities. Bilateral hip osteoarthrosis. Reading Location: [facility] Brain CT 03/02/25 16:40 IMPRESSION: No acute intracranial abnormality. Reading Location: [facility] Lower Extremity CT 03/02/25 18:18 IMPRESSION: Minimally displaced acute comminuted fractures of the right acetabulum, mainly involving the anterior column, which propagates along the medial aspect of right iliac wing, and nondisplaced fractures involving the superior and inferior pubic rami. No proximal right femur fracture or dislocation. Moderate right pelvic sidewall hematoma medial to the right acetabular wall, tracking along the right aspect of the pelvis and visualized lower retroperitoneum, with intramuscular component in the right obturator internus muscle belly. Suggest contrast-enhanced CT of the pelvis with early arterial and delayed venous phase images to assess for any potential active bleeding, if clinically warranted. Findings communicated with provider Edu Dean 03/02/2025 at 6:50 p.m. FIELD SALES SPECIALIST. Reading Location: [facility] CT of the head was reviewed. I agree there is no evidence of intracranial bleed i.e. subdural hematoma, epidural hematoma, traumatic subarachnoid hemorrhage or intraparenchymal contusion. Rhythm Strip Rhythm Strip: A-fib (83) Ectopy: None Management Discussion w/another healthcare provider: Hospitalist (Case discussed with hospitalist. He was admitted to [facility]. He was informed of Dr. Gee's recommendation), Juke Box Mechanic (Case was discussed with Dr. Gee. He reviewed the CT. He states this is treated nonoperatively. He would need to be nonweightbearing for 6 weeks. He will need a special type of walker and nonweightbearing) and Radiologist (Radiologist called because of the fracture noted on CT. He has a comminuted acetabular fracture.) Discharge Plan Dx/Rx/DC Orders Clinical Impression: Closed right acetabular fracture, Inability to ambulate due to right hip, Closed head injury, Anticoagulant long-term use, Atrial fibrillation, Laceration of scalp, Laceration of elbow, right, Laceration of left hand, Atrial fibrillation, chronic Disposition Disposition: Acute Care Hospital [facility]
--- NOTE | 2025-03-02 17:53 | ED.RN ---
pain 10/[address] william aware.
--- NOTE | 2025-03-02 18:14 | ED.RN ---
has been out several times saying that the pt is in pain. Dr Dean has been made aware on several occasions. He stated that he would go see the pt in a minute. Department is busy. Pt and have been made aware that he is doing his best and will be in to talk to the pt.
--- NOTE | 2025-03-02 18:18 | CT_ITS ---
PROCEDURE: CT EXTREMITY LOWER WITHOUT CONTRAST - RIGHT 03/02/2025 REASON FOR EXAM: UNABLE TO BEAR WEIGHT, NEGATIVE X-RAY TECHNIQUE: Procedure Code: CTELWO Modality: CT Procedure: EXTREMITY LOWER WITHOUT CONTRA CT right hip without contrast. Coronal and Sagittal reconstruction series were provided. One or more dose reduction techniques were used (e.g., Automated exposure control, adjustment of the mA and/or kV according to patient size, use of iterative reconstruction technique). RADIATION DOSE SUMMARY: CTDlvol: 21 mGy DLP: 702.49 mGycm COMPARISON: Radiographs earlier same day 03/02/2025. FINDINGS: Minimally displaced acute comminuted fracture of the right acetabulum, which involves mainly the anterior column and extends superiorly along the medial aspect of the right iliac wing approximating the anterior aspect of the right sacroiliac joint, and inferiorly there are nondisplaced fractures propagating through the superior and inferior pubic rami extending to the symphysis. No acute fracture of the proximal right femur. Right hip joint is intact. No pubic diastasis. Mild subcutaneous contusional changes overlying the right hip. Within the pelvis there is moderate amount of right pelvic sidewall hematoma, and small amount of retroperitoneal hemorrhage superiorly. There is also hematoma medial to the right acetabular wall and within right obturator internus muscle belly. Small fat containing right inguinal hernia noted. CT/Extremity Lower without Contra IMPRESSION: Minimally displaced acute comminuted fractures of the right acetabulum, mainly involving the anterior column, which propagates along the medial aspect of right iliac wing, and nondisplaced fractures involvi ng the superior and inferior pubic rami. No proximal right femur fracture or dislocation. Moderate right pelvic sidewall hematoma medial to the right acetabular wall, tr acking along the right aspect of the pelvis and visualized lower retroperitoneum, with intramuscular component in the right obt urator internus muscle belly. Suggest contrast-enhanced CT of the pelvis with early arterial and delayed venous phase images to assess for any potential active bleeding, if clinically warranted. Findings communicated with provider Edu Dean 03/02/2025 at 6:50 p.m. ELASTIC YARN TWISTER HELPER. Reading Location: [id number]
[2025-03-02 18:34] LABS: Prothrombin Time (Protime)PT. 24.3 SECONDS (11.7-14.9)
[2025-03-02] MEDS: HYDROmorphone 0.5 MG/0.5 ML SYRINGE IV ×2 (19:05→21:37)
--- NOTE | 2025-03-02 20:22 | CONS.ORTHO ---
HPI Consult Data Date of Consult: 03/02/25 HPI Narrative HPI Narrative: CLEVELAND MORLEY, is a 84 M who presents with anterior column acetabular fracture. no dislocation. good congruence of the hip. no hip fracture. low energy mechanism. [facility] Medical History (Updated 03/02/25 @ 20:22 by Domo Gee MD) Acetabulum fracture Nausea Abdominal pain History of basal cell carcinoma CKD (chronic kidney disease) Diverticulosis Hyperlipidemia History of colonic polyps Diarrhea Anxiety Hypertension History of DVT (deep vein thrombosis) Atrial fibrillation Home Medications ?Medication ?Instructions ?Recorded ?Last Taken ?Type atorvastatin 20 mg tablet (Lipitor) 20 mg PO DAILY 02/19/18 Unknown History warfarin 5 mg tablet (Coumadin) 5 mg PO MOTUWETHFRSA 02/19/18 03/07/18 History warfarin 6 mg tablet 5 mg PO SUTUWETHSA 03/08/18 Unknown History omeprazole 20 mg capsule,delayed 20 mg PO DAILY 08/14/20 08/16/20 05:00 History release 20 MG lisinopril 10 mg tablet 10 mg PO DAILY #30 tabs 08/24/20 Unknown Rx doxazosin 1 mg tablet 1 mg PO QHS 01/16/25 Unknown History Allergy/AdvReac Type Severity Reaction Status Date / Time No Known Allergies Allergy Verified 03/02/25 15:57 Family History (Updated 08/10/20 @ 12:16 by Do Cornell) Mother CAD (coronary artery disease) Father CAD (coronary artery disease) CHF (congestive heart failure) Brother Cancer Stomach Myocardial infarction Sister Asthma Surgical History S/P Mohs surgery for basal cell carcinoma History of colonoscopy (~2017) history bilateral cataract surgery History of elbow surgery History of tonsillectomy Social History (Updated 08/10/20 @ 13:[address] Adin Garcia MD) Smoking Status: Former smoker alcohol intake: current alcohol intake frequency: 0-2 drinks per day Alcohol type: other details: [place] substance use type: does not use Vital Signs Vital Signs Vital Signs: 03/02/25 15:57 03/02/25 16:01 03/02/25 16:02 Temperature 97.8 F Temperature Source Oral Pulse Rate 71 64 Respiratory Rate 18 16 Respiratory Effort Normal Respiratory Depth Normal Respiratory Pattern Normal Blood Pressure 126/96 H 135/82 H Blood Pressure Mean 106 99 Pulse Ox 99 98 Oxygen Delivery Method Room Air Room Air 03/02/25 17:14 03/02/25 18:00 03/02/25 19:00 Temperature Temperature Source Pulse Rate 68 77 81 Respiratory Rate 14 16 16 Respiratory Effort Respiratory Depth Respiratory Pattern Blood Pressure 138/76 H 177/83 H 111/60 Blood Pressure Mean 96 114 77 Pulse Ox 95 99 96 Oxygen Delivery Method Room Air 03/02/25 20:00 Temperature Temperature Source Pulse Rate 77 Respiratory Rate 11 L Respiratory Effort Respiratory Depth Respiratory Pattern Blood Pressure 97/82 H Blood Pressure Mean 87 Pulse Ox 94 Oxygen Delivery Method Weight Weight: 212 lb 15.465 oz Body Mass Index (BMI) 30.5 Lab / Micro Data Labs: Laboratory Results - last 24 hr 03/02/25 17:10: PT 24.3 H, INR 2.1 Imaging Radiology Impression Hip/Pelvis X-Ray 03/02/25 16:16 IMPRESSION: No acute osseous abnormalities. Bilateral hip osteoarthrosis. Reading Location: [facility] Brain CT 03/02/25 16:40 IMPRESSION: No acute intracranial abnormality. Reading Location: [facility] Lower Extremity CT 03/02/25 18:18 IMPRESSION: Minimally displaced acute comminuted fractures of the right acetabulum, mainly involving the anterior column, which propagates along the medial aspect of right iliac wing, and nondisplaced fractures involving the superior and inferior pubic rami. No proximal right femur fracture or dislocation. Moderate right pelvic sidewall hematoma medial to the right acetabular wall, tracking along the right aspect of the pelvis and visualized lower retroperitoneum, with intramuscular component in the right obturator internus muscle belly. Suggest contrast-enhanced CT of the pelvis with early arterial and delayed venous phase images to assess for any potential active bleeding, if clinically warranted. Findings communicated with provider Edu Dean 03/02/2025 at 6:50 p.m. 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 Reading Location: [facility] Assessment & Plan Assessment/Plan (1) Acetabulum fracture: PLAN: CLEVELAND MILLI, is a 84 M who presents with anterior column acetabular fracture. no dislocation. good congruence of the hip. no hip fracture. low energy mechanism. These can be treated non operatively. Other options for ORIF or immediate or delayed total hip arthroplasty. Given age, comorbidities, and low energy mechanicsm with good articular congurence, recommend non op trial. Protected WB 6-8 weeks, walker, PT/OT, admit under hospitalist, VTE prophylaxis, and repeat XR in 5-7 days to ensure stability. Will follow.
[2025-03-02] MEDS: Lidocaine 1% (20 ml mdv) 20 ML Vial INFILT (20:59)
--- NOTE | 2025-03-02 22:33 | PCM.HP.STD ---
[facility] - General General Date of Admission: 03/02/25 Date of Service: 03/02/25 Chief Complaint: Fall a Home with Scalp and Hand Lacerations plus Right Hip Pain. HPI Narrative CLEVELAND THOMPSON, is a 84 M with a past medical history of essential hypertension; on lisinopril, hyperlipidemia; on atorvastatin, obesity (class I); with BMI of 30.6 this admission, former tobacco abuse, chronic atrial fibrillation; on warfarin, remote history of DVT (~30 years ago), history of asthma; on umeclidinium-vilanterol plus albuterol sulfate daily as needed, CKD; stage III of uncertain subtype, history of diverticulosis, history of colon polyps, depression with anxiety; on sertraline, history of basal cell carcinoma; s/p Mohs surgery, and OA who presents to [facility] ER complaining of fall at home with scalp and hand lacerations plus Right hip pain. Mr. Thompson reports his symptoms began earlier this afternoon while he was [place] burying his house with bleach to remove mold when he accidentally lost his balance causing him to slip and fall onto his Right side. He does admit to hitting his head with a subsequent scalp laceration in addition to multiple lacerations to his Right hand but he denies LOC or related headache. He also noticed severe Right hip pain over the greater trochanteric region and buttocks that made it impossible for him to ambulate so he was brought in for further evaluation and treatment. He denies associated fever, chills, changes in vision, runny nose, sore throat, ear pain, changes in hearing, paresthesias, chest pain, palpitations, heart racing, shortness of breath, cough, dysuria, hematuria or flank pain. In the ER he was noted to have a CT scan of the lower extremities without contrast that revealed minimally displaced acute comminuted fractures of the Right acetabulum mainly involving the anterior column which propagates along the medial aspect of the Right iliac wing in addition to nondisplaced fractures involving superior and inferior pubic rami with no proximal Right femur fracture or dislocation complicated by moderate Right pelvic sidewall hematoma medial to the Right acetabular wall tracking along the Right aspect of the pelvis and visualized lower retroperitoneum with intramuscular component in the Right obturator internal muscle belly with contrast-enhanced CT suggested to assess for any potential active bleeding with a therapeutic INR of 2.1 present on admission with no CBC, CMP or abdominal/pelvic CT with IV contrast ordered at that time. He also had a head CT without contrast that revealed no acute intracranial abnormality. He was then admitted to the PCU for ongoing care for a stay that is expected to extend beyond 2 midnights. [facility], [facility] Medical History Acetabulum fracture Nausea Abdominal pain History of basal cell carcinoma CKD (chronic kidney disease) Diverticulosis Hyperlipidemia History of colonic polyps Diarrhea Anxiety Hypertension History of DVT (deep vein thrombosis) Atrial fibrillation Home Medications ?Medication ?Instructions ?Recorded ?Last Taken ?Type atorvastatin 20 mg tablet (Lipitor) 20 mg PO DAILY cholesterol 02/19/18 03/02/25 History warfarin 5 mg tablet (Coumadin) 5 mg PO MOTUWETHFRSA blood thinner 02/19/18 03/07/18 History warfarin 6 mg tablet 5 mg PO SUTUWETHSA blood thinner 03/08/18 03/02/25 History lisinopril 10 mg tablet 10 mg PO DAILY hypertension #30 08/24/20 03/02/25 Rx tabs albuterol sulfate 90 mcg/actuation 2 puff inhalation DAILY PRN 03/02/25 Unknown History aerosol inhaler shortness of breath or wheezing doxycycline hyclate 100 mg tablet 100 mg PO BID antibiotic 03/02/25 Unknown History sertraline 100 mg tablet 100 mg PO DAILY depression 03/02/25 03/02/25 History umeclidinium 62.5 mcg-vilanterol inhalation DAILY respiratory 03/02/25 03/02/25 History 25 mcg/actuation powdr for inhalation (Anoro Ellipta) Allergy/AdvReac Type Severity Reaction Status Date / Time No Known Allergies Allergy Verified 03/02/25 15:57 Family History Mother CAD (coronary artery disease) Father CAD (coronary artery disease) CHF (congestive heart failure) Brother Cancer Stomach Myocardial infarction Sister Asthma Surgical History S/P Mohs surgery for basal cell carcinoma History of colonoscopy (~2017) history bilateral cataract surgery History of elbow surgery History of tonsillectomy Social History Smoking Status: Former smoker alcohol intake: current alcohol intake frequency: 0-2 drinks per day Alcohol type: other details: bhavin substance use type: does not use ROS ROS Narrative Review of Systems: Constitutional: Patient denies fever or chills. Eyes: Patient denies change in vision or discharge from eyes. ENT: Patient denies runny nose, sore throat or ear pain. Resp: Patient denies shortness of breath or cough. CV: Patient denies chest pain, palpitations or heart racing. GI: Patient denies abdominal pain, nausea, vomiting, diarrhea or constipation. : Patient denies dysuria or hematuria. MSK: Patient admits to severe Right hip pain with inability to ambulate after fall as per HPI. Skin: Patient has lacerations to scalp, Right elbow and Left hand as per HPI but no rash. Psych: Patient denies symptoms of uncontrolled depression or anxiety. Neuro: Patient denies headache, paresthesias or focal neurologic deficits. Allergy: Patient denies lip swelling, tongue swelling or urticaria. Hematology: Patient admits to easy bleeding and bruisability on warfarin. Endocrinology: Patient denies polyuria, polydipsia, polyphagia but he does report heat/cold intolerance. 14 point ROS otherwise negative except for positives noted above in HPI. Vital Signs Vital Signs Vital Signs: 03/02/25 15:57 03/02/25 16:01 03/02/25 16:02 Temperature 97.8 F Temperature Source Oral Pulse Rate 71 64 Respiratory Rate 18 16 Respiratory Effort Normal Respiratory Depth Normal Respiratory Pattern Normal Blood Pressure 126/96 H 135/82 H Blood Pressure Mean 106 99 Pulse Ox 99 98 Oxygen Delivery Method Room Air Room Air 03/02/25 17:14 03/02/25 18:00 03/02/25 19:00 Temperature Temperature Source Pulse Rate 68 77 81 Respiratory Rate 14 16 16 Respiratory Effort Respiratory Depth Respiratory Pattern Blood Pressure 138/76 H 177/83 H 111/60 Blood Pressure Mean 96 114 77 Pulse Ox 95 99 96 Oxygen Delivery Method Room Air 03/02/25 20:00 03/02/25 21:00 03/02/25 22:00 Temperature Temperature Source Pulse Rate 77 73 78 Respiratory Rate 11 L 18 18 Respiratory Effort Respiratory Depth Respiratory Pattern Blood Pressure 97/82 H 121/63 H 118/58 L Blood Pressure Mean 87 82 78 Pulse Ox 94 94 93 Oxygen Delivery Method Room Air Room Air 03/02/25 22:23 Temperature 97.6 F L Temperature Source Pulse Rate 76 Respiratory Rate 18 Respiratory Effort Respiratory Depth Respiratory Pattern Blood Pressure 118/58 L Blood Pressure Mean 78 Pulse Ox 97 Oxygen Delivery Method Weight Weight: 212 lb 15.465 oz Body Mass Index (BMI) 30.5 Physical Exam Const alert and oriented x3 Constitutional Narrative: Obese elderly patient in moderate discomfort. General Appearance: cooperative HEENT HEENT Narrative: Patient has scalp laceration that has been stapled. Eyes PERRL, EOMs intact bilaterally and conjunctivae normal Neck no lymphadenopathy, supple and no JVD Resp normal respiratory effort, no retractions, no use of accessory muscles and clear to auscultation bilaterally Cardio Cardio Narrative: Irregularly irregular. GI normal to inspection, nondistended, normoactive bowel sounds, soft to palpation, non-tender and non-distended Extremity Extremity Narrative: Limited ROM due pain when attempting to move RLE mainly focused in his proximal/lateral thigh with associated large hematoma. Skin Skin Narrative: Patient has lacerations to scalp, Right elbow and Left hand with no evidence of rash. Neuro oriented x3, CN's II-XII intact bilaterally and no focal motor deficits Sensorium / Orientation: awake, alert, oriented to person, oriented to place and oriented to time Speech: speech normal Psych affect normal Results Medical Records Data Attestation: I reviewed the patient's medical records Lab / Micro Data Attestation: I reviewed the patient's lab results. 03/03/25 00:32 03/03/25 00:32 Labs: Laboratory Results - last 24 hr 03/02/25 17:10: PT 24.3 H, INR 2.1 Imaging Radiology Impression Hip/Pelvis X-Ray 03/02/25 16:16 IMPRESSION: No acute osseous abnormalities. Bilateral hip osteoarthrosis. Reading Location: [facility] Brain CT 03/02/25 16:40 IMPRESSION: No acute intracranial abnormality. Reading Location: [facility] Lower Extremity CT 03/02/25 18:18 IMPRESSION: Minimally displaced acute comminuted fractures of the right acetabulum, mainly involving the anterior column, which propagates along the medial aspect of right iliac wing, and nondisplaced fractures involving the superior and inferior pubic rami. No proximal right femur fracture or dislocation. Moderate right pelvic sidewall hematoma medial to the right acetabular wall, tracking along the right aspect of the pelvis and visualized lower retroperitoneum, with intramuscular component in the right obturator internus muscle belly. Suggest contrast-enhanced CT of the pelvis with early arterial and delayed venous phase images to assess for any potential active bleeding, if clinically warranted. Findings communicated with provider Edu Dean 03/02/2025 at 6:50 p.m. 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 Reading Location: [id number] Imaging Services [address] [place] [id number] Abdomen/Pelvis W IV Cont ONLY MR#: [id number] Acct: [id number] Name: CLEVELAND THOMPSON Rep #: [id number] : 1940 M 84 From: Kaley Trotter MD PCP: Dr. Tien Fernandez MD Status: ADM IN Study: Abdomen/Pelvis W IV Cont ONLY Date of Exam: 03/03/25 Exam# [id number] Ordering Dr: Isac Henderson DO PROCEDURE: ABDOMEN/PELVIS W IV CONT ONLY 03/03/2025 REASON FOR EXAM: RIGTH ACETABULAR FRACTURE WITH HEMATOMA ON COUMADIN TECHNIQUE: Procedure Code: [id number] Modality: CT Procedure: ABDOMEN/PELVIS W IV CONT ONLY Coronal and Sagittal reconstruction series were provided. CONTRAST: OMNIPAQUE 350 VOLUME: 100 mL One or more dose reduction techniques were used (e.g., Automated exposure control, adjustment of the mA and/or kV according to patient size, use of iterative reconstruction technique. RADIATION DOSE SUMMARY: CTDlvol: 21.18 mGy DLP: 2052 mGycm COMPARISON: None. FINDINGS: Acute oblique mildly displaced fracture of the right iliac bone reaching the right acetabular roof. Acute nondisplaced fracture of the right inferior pubic ramus. Acute oblique mildly displaced fracture of the lateral aspect of the right superior pubic ramus reaching the acetabulum. Underlying deep pelvic/periacetabular acute hematoma measuring 11.7 x 7.3 cm without associated active bleeding during the time of the exam. Minimal bilateral pleural effusions. Passive atelectatic airspace disease of the lower lobes. Mild cardiomegaly. 3 mm left renal nonobstructing stone. Scattered left renal simple cysts with the largest measuring 1.6 cm. Mild prostatomegaly. Scattered prostatic calcifications. Fat containing umbilical hernia without incarceration. Gastroparesis. Normal liver. Normal gallbladder and extrahepatic biliary system. Normal spleen. Normal pancreas. Normal bilateral adrenal glands. Normal size of the right kidney. There is no right renal mass. There are no right renal calculi. There is no right hydronephrosis. Normal visualized right ureter. Normal size of the left kidney. There is no left renal mass. There is no left hydronephrosis. Normal visualized left ureter. Normal small intestine. The appendix is visualized and appears normal. Normal inferior vena cava. Normal retroperitoneum. Normal urinary bladder. There is no pelvic mass lesion or lymphadenopathy. CT/Abdomen/Pelvis W IV Cont ONLY IMPRESSION: Acute oblique mildly displaced fracture of the right iliac bone reaching the right acetabular roof. Acute nondisplaced fracture of the right inferior pubic ramus. Acute oblique mildly displaced fracture of the lateral aspect of the right superior pubic ramus reaching the acetabulum. Underlying deep pelvic/periacetabular acute hematoma measuring 11.7 x 7.3 cm without associated active bleeding during the time of the exam. Minimal bilateral pleural effusions. Passive atelectatic airspace disease of the lower lobes. Mild cardiomegaly. 3 mm left renal nonobstructing stone. Scattered left renal simple cysts with the largest measuring 1.6 cm. Mild prostatomegaly. Scattered prostatic calcifications. Fat containing umbilical hernia without incarceration. Reading [id number] CC: Dr. Isac Henderson DO; Dr. 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 Analyst: Signed Assessment & Plan Assessment/Plan (1) Closed right acetabular fracture: QUALIFIERS: Encounter type: initial encounter Fracture alignment: displaced Sublocation of acetabulum: unspecified portion of acetabulum Qualified Code(s): S32.401A - Unspecified fracture of right acetabulum, initial encounter for closed fracture (2) Fracture of pubic ramus: QUALIFIERS: Encounter type: initial encounter Fracture type: closed Laterality: unspecified laterality Qualified Code(s): S32.599A - Other specified fracture of unspecified pubis, initial encounter for closed fracture (3) Pelvic hematoma in male: (4) Fall at home: QUALIFIERS: Encounter type: initial encounter Qualified Code(s): W19.XXXA - Unspecified fall, initial encounter; Y92.009 - Unspecified place in unspecified non-institutional (private) residence as the place of occurrence of the external cause (5) Difficulty balancing: (6) Inability to ambulate due to right hip: (7) Closed head injury: QUALIFIERS: Encounter type: initial encounter Qualified Code(s): S09.90XA - Unspecified injury of head, initial encounter (8) Laceration of scalp: QUALIFIERS: Encounter type: initial encounter Qualified Code(s): S01.01XA - Laceration without foreign body of scalp, initial encounter (9) Laceration of elbow, right: QUALIFIERS: Encounter type: initial encounter Qualified Code(s): S51.011A - Laceration without foreign body of right elbow, initial encounter (10) Laceration of left hand: QUALIFIERS: Encounter type: initial encounter Foreign body presence: without foreign body Qualified Code(s): S61.412A - Laceration without foreign body of left hand, initial encounter (11) Atrial fibrillation, chronic: (12) Anticoagulant long-term use: (13) Obesity (BMI 30.0-34.9): PLAN: Plan 1. CT scan of the lower extremities without contrast that revealed minimally displaced acute comminuted fractures of the Right acetabulum mainly involving the anterior column which propagates along the medial aspect of the Right iliac wing in addition to nondisplaced fractures involving superior and inferior pubic rami with no proximal Right femur fracture or dislocation complicated by moderate Right pelvic sidewall hematoma medial to the right acetabular wall tracking along the right aspect of the pelvis and visualized lower retroperitoneum with intramuscular component in the Right obturator internal muscle belly with contrast-enhanced CT suggested to assess for any potential active bleeding with a therapeutic INR of 2.1 present on admission with no CBC, CMP or abdominal/pelvic CT with IV contrast ordered by the ER physician - Admit to PCU. Obtain STAT CT scan of the abdomen/pelvis with IV contrast to evaluate for retroperitoneal hematoma with traumatic internal bleeding after Fall on warfarin in the setting of chronically Poor Balance. Type & Screen blood and transfuse for hemoglobin <7 g/dL. Patient will be treated with IV vitamin K if hematoma is enlarging, hemoglobin drops and/or hypotension worsens. Give acetaminophen prn for [id number] (level 1-5/10) pain or fever. Give hydromorphone IV prn for severe (level 6-10/10) pain. Dr. Gee of orthopedic surgery has written a note that reflects plan for nonoperative treatment of fractures with no further recommendations or contact regarding Right pelvic sidewall/retroperitoneal hematoma at this time. 2. Lacerations of Scalp, Right Elbow and Left Hand with Inability to Ambulate due to #1 - Stable with patient's wounds treated in ER. 3. Chronic atrial fibrillation; on warfarin plus remote history of DVT (~30 years ago) complicating #1 & #2 - Hold warfarin until further notice. Check PT/INR daily. 4. Obesity (class I); with BMI of 30.6 this admission adding to the burden of disease outlined in #1 - #3 - Weight loss will be recommended. Check TSH. This complicates his case and may hamper recovery. 5. CKD; stage III of uncertain subtype compounding #1 - #4 with patient needing IV contrast for #1 with no CMP ordered on admission - CMP has been ordered STAT. Hopefully IV contrast dye will not exacerbate his CKD with patient already ordered IVF. Labs returned shortly after midnight revealing Hyperkalemia of 5.6 mmol/L present on admission which was treated with Kayexalate. 6. Essential hypertension; on lisinopril - Hold lisinopril in light of #1. 7. Hyperlipidemia; on atorvastatin - Hold statin until further notice. 8. Former tobacco abuse - Noted. 9. History of asthma; on umeclidinium-vilanterol plus albuterol sulfate daily as needed - Stable with no evidence of acute flare at this time. Maintain home regimen. 10. History of diverticulosis - Noted. 11. History of colon polyps - Noted for the sake of completeness. 12. Depression with anxiety; on sertraline - Continue present therapy. 13. History of basal cell carcinoma; s/p Mohs surgery - Noted. 14. OA - Give acetaminophen prn as outlined in #1. 15. DVT prophylaxis - Patient had therapeutic INR of 2.1 present on admission so no additional treatment will be added at this time. Total time: Approximately (but not less than) 75 minutes. Update: Patient's contrasted CT scan of the abdomen pelvis was finally at approximately 5:20 AM which showed evidence of underlying deep pelvic/periacetabular acute hematoma measuring ~11.7 cm x ~7.3 cm without associated active bleeding during the time of exam in addition to fractures of the Right iliac bone inferior and superior pubic rami reaching the acetabulum. I then personally spoke with the pharmacist on-call with order placed for vitamin K 10 mg sq x 1 to fully reverse warfarin. Finally, patient was made NPO and consultation was placed to general surgery for recommendations regarding potential hematoma evacuation after trauma with help appreciated in advance. PATIENT AMBASSADOR was updated with plan. Charges/Coding Visit Charges Inpatient E&M: 60245 Init Hosp L3
--- OUTSIDE RECORDS SUMMARY | 2025-03-02 23:50 | XMS RPT_ITS | CCD ---
Author Organization [facility] Care Team Providers Care Office Machines Wirer Name Role Phone Radha Geoffrey Primary Care Provider 13, Pharmacist Unavailable Tien Serrano MD Primary Care Provider 13, Pharmacist Unavailable Tien Serrano MD Primary Care Provider Tien Serrano MD Primary Care Provider [phone] 13, Pharmacist Unavailable Tien Serrano MD Primary Care Provider Tien Serrano MD Primary Care Provider Tien Serrano MD Primary Care Provider Tien Serrano MD Primary Care Provider Haagen ANNEALING OPERATOR.SHIREEN Katy Unavailable Suppan ANNEALING OPERATOR.SHIREEN, Alejandrina A Unavailable [phone] Suppan ANNEALING OPERATOR.SHIREEN, Alejandrina A Unavailable Suppan ANNEALING OPERATOR.SHIREEN, Alejandrina A Unavailable [phone] Tien Serrano MD Primary Care Provider TIEN HEAD Attending Unavailable TIEN SERRANO Primary Care Unavailable TIEN HEAD Referring Unavailable TIEN HEAD Attending Unavailable TIEN SERRANO Primary Care Unavailable TIEN HEAD Referring Unavailable TIEN HEAD Referring Unavailable TIEN SERRANO Primary Care Unavailable TIEN HEAD Attending Unavailable TIEN SERRANO Referring Unavailable TIEN SERRANO Primary Care Unavailable TIEN HEAD Attending Unavailable TIEN HEAD Attending Unavailable MAGGIE, TIEN Primary Care Unavailable TIEN HEAD Referring Unavailable Iglesia Templeton Attending Provider Iglesia Templeton Attending Unavailable MAGGIE, TIEN Colmenares Primary Care Unavailable Kadeem'MICHELLE BERRIOS Attending Unavailable MAGGIE, TIEN Colmenares Referring Unavailable MAGGIE, TIEN Colmenares Attending Unavailable MAGGIE, TIEN Colmenares Primary Care Unavailable MAGGIE, TIEN Colmenares Attending Unavailable MAGGIE, TIEN Colmenares Primary Care Unavailable MAGGIE, TIEN Colmenares Primary Care Unavailable MAGGIE, TIEN Colmenares Referring Unavailable KATY GALDAMEZ Attending Unavailable MAGGIE, TIEN Colmenares Primary Care Unavailable MAGGIE, TIEN Colmenares Primary Care Unavailable BLAYNE DAVIS Attending Unavailable MAGGIE, TIEN Colmenares Referring Unavailable O'YASH, MICHELLE Attending Unavailable MAGGIE, TIEN Colmenares Primary Care Unavailable MAGGIE, TIEN Colmenares Referring Unavailable O'YASH, MICHELLE Attending Unavailable MAGGIE, TIEN Colmenares Primary Care Unavailable MAGGIE, TIEN Colmenares Referring Unavailable O'YASHMICHELLE Attending Unavailable MAGGIE, TIEN Colmenares Primary Care Unavailable MAGGIE, TIEN Colmenares Primary Care Unavailable MAGGIE, TIEN Colmenares Primary Care Unavailable MAGGIE, TIEN Colmenares Referring Unavailable MAGGIE, TIEN Colmenares Attending Unavailable MAGGIE, TIEN Colmenares Primary Care Unavailable MAGGIE, TIEN Colmenares Primary Care Unavailable MAGGIE, TIEN Colmenares Referring Unavailable LIA GRIFFIN Attending Unavailable MAGGIE, TIEN Colmenares Referring Unavailable MAGGIE, TIEN Colmenares Primary Care Unavailable MAGGIE, TIEN Colmenares Attending Unavailable MAGGIE, TIEN Colmenares Primary Care Unavailable MAGGIE, TIEN Colmenares Referring Unavailable MAGGIE, TIEN Colmenares Primary Care Unavailable MAGGIE, TIEN Colmenares Referring Unavailable MAGGIE, TIEN Colmenares Primary Care Unavailable MAGGIE, TIEN Colmenares Referring Unavailable MAGGIE, TIEN Colmenares Primary Care Unavailable MAGGIE, TIEN Colmenares Primary Care Unavailable MAGGIE, TIEN Colmenares Referring Unavailable MAGGIE, TIEN Colmenares Primary Care Unavailable MAGGIE, TIEN Colmenares Referring Unavailable Medications Current Medications Medication Drug Class(es) Dates Sig (Normalized) Sig (Original) [id number] 200 actuat albuterol 0.09 mg/actuat metered dose inhaler (20 sources) beta2-Adrenergic Agonist Start: 02-12-2024 End: 03-23-2024 take 2 puff(s) by inhalation every four hours as needed for wheezing albuterol HFA (VENTOLIN HFA) 90 mcg/actuation inhaler Indications: Chronic obstructive pulmonary disease, unspecified COPD type (HCC) Inhale 2 Puffs as instructed every 4 hours as needed for wheezing/shortness of breath. 3 Each 3 03/23/2024 Active take 1 puff(s) by in halation every six hours as needed Albuterol 108 (90 Base) MCG/ACT Aero Gabriela n inhaler Inhale 1 puff every 6 hours as needed for Shortness of Breath. Active amLODIPine 5 mg oral tablet (20 sources) Dihydropyridine Calcium Channel Terrell Start: 03-16-2017 End: 01-16-2025 take 1 tablet by mouth once daily amLODIPine (NORVASC) 5 mg tablet Take 5 mg by mouth once daily. 12/08/2023 Active atenolol 25 mg oral tablet (14 sources) beta-Adrenergic Terrell Start: 11-28-2024 take 1 tablet by mouth once daily atenolol (TENORMIN) 25 mg tablet Take 25 mg by mouth once daily. 11/28/2024 Active atorvastatin 20 mg oral tablet (20 sources) HMG-CoA Reductase Inhibitor Start: 03-16-2017 End: 02-21-2025 take 1 tablet by mouth once daily atorvastatin (LIPITOR) 20 mg tablet Indications: Hyperlipidemia LDL goal Take 1 tablet by mouth once daily. 90 tablet 1 02/21/2025 Active Comment on above: Take 1 tablet by thang once daily. cefuroxime 250 mg oral tablet (2 sources) Cephalosporin Antibacterial Start: 10-10-2024 End: 10-17-2024 take 1 tablet by mouth twice daily cefUROXime (CEFTIN) 250 mg tablet Indications: COPD with exacerbation (HCC) Take 1 tablet by mouth two times a day for 7 days. 14 tablet 10/10/2024 10/17/2024 Active CPAP (3 sources) Start: 02-03-2025 CPAP Indications: MARY BETH (obstructive sleep apnea) Initiate Auto PAP @ 5-20 cm of water with humidification. Mask (per patient preference) optional chin strap (if indicated) , filters, tubing, humidifier and lifetime supplies. 1 each 02/03/2025 Active doxazosin 1 mg oral tablet (20 sources) alpha-Adrenergic Terrell Start: 01-11-2024 End: 01-02-2026 take 1 tablet by mouth once daily at bedtime doxazosin (CARDURA) 1 mg tablet Indications: Essential hypertension, benign Take 1 tablet by mouth daily at bedtime. 90 tablet 3 01/02/2025 01/02/2026 Active Start: 10-31-2022 End: 01-07-2024 take 1 tablet by mouth once daily at bedtime doxazosin (CARDURA) 1 mg tablet Indications: Essential hypertension, benign Take 1 tablet by mouth daily at bedtime. 90 tablet 3 01/07/2023 01/07/2024 Active Comment on above: Take 1 tablet by thang th daily at bedtime. flecainide acetate 100 mg oral tablet (20 sources) Antiarrhythmic Start: take 1 tablet by mouth twice daily flecainide (TAMBOCOR) 100 mg tablet Take 100 mg by mouth two times a day. 11/28/2024 Active Start: 02-01-2024 End: 10-04-2024 take 1 tablet by mouth twice daily flecainide (TAMBOCOR) 100 mg tablet Take 100 mg by mouth two times a day. 11/28/2024 Active Start: 12-18-2022 End: 01-30-2024 take 1 tablet by mouth twice daily flecainide (TAMBOCOR) 100 mg tablet Take 1 tablet by mouth two times a day. 180 tablet 3 01/29/2024 01/30/2024 Discontinued Start: 02-19-2018 End: 01-16-2025 take 1 tablet by mouth every twelve hours Flecainide 100 mg tablet Discontinued 100 mg PO Q12H February 19, 2018 12:00am January 16, 2025 3:39pm Start: 05-08-2017 End: 12-15-2022 take 1 tablet by mouth twice daily flecainide (TAMBOCOR) 100 mg tablet Take 1 tablet by mouth twice daily. 10 tablet 0 12/15/2022 Active Comment on above: Take 1 tablet by thang th twice daily. lisinopril 10 mg oral tablet (20 sources) Angiotensin Converting Enzyme Inhibitor Start: End: 5 take 1 tablet by mouth once daily lisinopril (ZESTRIL) 10 mg tablet Take 1 tablet by mouth once daily. 90 tablet 1 11/07/2024 Active Comment on above: Take 1 tablet by thang th once daily. loperamide hydrochloride 2 mg oral tablet (20 sources) Opioid Agonist Start: 4 loperamide HCl (IMODIUM) 2 mg tab Take 1 tablet by mouth as needed. 03/23/2024 Active Start: 01-27-2019 End: 03-23-2024 take 1 mg by mouth every six hours as needed loperamide (ANTI-DIARRHEAL) 1 mg/5 mL solution Take 5 mL by mouth four times daily as needed. Take 1/2 tablet daily 01/27/2019 03/23/2024 Discontinued Comment on above: Take 5 mL by mouth f our times daily as needed. Take 1/2 tablet daily LORazepam 0.5 mg oral tablet (20 sources) Benzodiazepine Start: 3 End: take 1 tablet by mouth three times daily as needed for anxiety LORazepam (ATIVAN) 0.5 mg Indications: Generalized anxiety disorder Take 1 tablet by mouth three times a day as needed (anxiety) for up to 180 days. 60 tablet 0 03/27/2023 09/23/2023 Active Start: 02-19-2023 End: 03-21-2023 take 1 tablet by mouth three times daily as needed for anxiety LORazepam (ATIVAN) 0.5 mg Indications: Generalized anxiety disorder Take 1 tablet by mouth three times daily as needed (anxiety) for up to 30 days. 15 tablet 0 02/19/2023 03/21/2023 Active Start: 09-07-2020 End: 01-30-2022 take 1 tablet by mouth twice daily as needed for anxiety LORazepam (ATIVAN) 0.5 mg Indications: Generalized anxiety disorder Take 1 tablet by mouth twice daily as needed (anxiety) for up to 90 days. 180 tablet 0 09/07/2020 01/30/2022 Discontinued Comment on above: Take 1 tablet by thang th twice daily as needed (anxiety) for up to 90 days. Take 1 tablet by thang th three times daily as needed (anxiety) for up to 30 days. Take 1 tablet by thang th three times a day as needed (anxiety) for up to 180 days. omeprazole 20 mg delayed release oral capsule (1 source) Proton Pump Inhibitor Start: 1 take 1 capsule by mouth once daily Omeprazole 20 MG capsule Active 20 mg PO DAILY August 14, 2020 1:00am predniSONE 20 mg oral tablet (2 sources) Start: End: take 1 tablet by mouth once daily predniSONE (DELTASONE) 20 mg tablet Indications: COPD with exacerbation (HCC) Take 1 tablet by mouth once daily for 5 days. 5 tablet 10/10/2024 10/15/2024 Active sertraline 100 mg oral tablet (20 sources) Serotonin Reuptake Inhibitor Start: End: take 1 tablet by mouth once daily sertraline (ZOLOFT) 100 mg tablet Indications: Anxiety Take 1 tablet by mouth once daily. 90 tablet 1 11/28/2024 05/27/2025 Active Start: 03-27-2023 End: 09-23-2023 take 1.5 tablets by mouth once daily sertraline (ZOLOFT) 50 mg tablet Take 1.5 tablets by mouth once daily. 135 tablet 1 03/27/2023 09/23/2023 Active Start: 04-29-2022 take 0.5 tablet by m out once daily sertraline (ZOLOFT) 50 mg tablet Indications: Generalized anxiety disorder Take 0.5 tablets by mouth once daily. 135 tablet 3 04/29/2022 Active Start: 01-24-2021 End: 04-29-2022 take 1.5 tablets by mouth once daily sertraline (ZOLOFT) 50 mg tablet Indications: Generalized anxiety disorder Take 1.5 tablets by mouth once daily. 135 tablet 3 01/24/2021 04/29/2022 Discontinued Start: 01-15-2017 End: 01-16-2025 take 1 tablet by mouth once daily sertraline (ZOLOFT) 50 mg tablet Indications: Generalized anxiety disorder Take 1 tablet by mouth once daily. 90 tablet 1 02/19/2023 Active Comment on above: Take 1.5 tablets by mouth once daily. Take 0.5 tablets by mouth once daily. Take 1 tablet by thang once daily. tiotropium 0.018 mg inhalation powder (20 sources) Anticholinergic Start: 024 End: 025 take 1 capsule by inhalation once daily tiotropium (SPIRIVA WITH HANDIHALER) 18 mcg inhalation capsule Indications: Chronic obstructive pulmonary disease, unspecified COPD type (HCC) Inhale 1 capsule as instructed once daily. Use with handihaler. 90 capsule 3 03/23/2024 03/23/2025 Active 30 actuat umeclidinium 0.0625 mg/actuat / vilanterol 0.025 mg/actuat dry powder inhaler (17 sources) Anticholinergic, beta2-Adrenergic Agonist Start: take 1 dose by inhalation once daily umeclidinium-vilan terol (ANORO ELLIPTA) 62.5-25 mcg/actuation inhaler Inhale 1 Inhalation as instructed once daily. 3 each 2 11/14/2024 Active warfarin sodium 5 mg oral tablet (20 sources) Vitamin K Antagonist Start: End: warfarin (COUMADIN) 5 mg tablet 7.5 mg every Mon, Fri; 5 mg all other days 90 tablet 1 11/07/2024 Active Start: 10-14-2020 End: 01-09-2024 warfarin (COUMADIN) 5 mg tab let 7.5 mg every Mon, Fri; 5 mg all other days 90 tablet 1 07/27/2023 01/09/2024 Discontinued Start: 03-08-2018 Warfarin 6 MG tablet Active 5 mg PO SUTUWETHSA March 08, 2018 12:00am Start: 02-19-2018 Warfarin (Coum mame) 5 mg tablet Active 5 mg PO MOTUWETHFRSA February 19, 2018 12:00am Start: 01-21-2017 warfarin 2 MG tablet 2 mg + 5 mg = 7mg Sundays, and 5mg daily all other days or as directed. 01/21/2017 Active Comment on above: 7.5 mg every Mon, Fr i; 5 mg all other days Completed/Discontinued Medications Medication Drug Class(es) Dates Sig (Normalized) Sig (Original) aspirin 81 mg delayed release oral tablet (3 sources) Platelet Aggregation Inhibitor, Nonsteroidal Anti-inflammatory Drug Start: 02-09-2008 End: 08-10-2020 Aspirin (Adult Low Dose Aspirin) 81 mg tablet,delayed release (DR/EC) Discontinued 81 mg PO DAILY February 19, 2018 12:00am August 10, 2020 2:03pm furosemide 20 mg oral tablet (20 sources) Loop Diuretic Start: 11-02-2024 End: 11-02-2024 take 1 tablet by mouth once daily furosemide (LASIX) 20 mg tablet Take 1 tablet by mouth once daily. 30 tablet 5 11/02/2024 11/02/2024 Discontinued Start: 10-28-2024 End: 11-02-2024 take 3 tablets by mouth once daily furosemide (LASIX) 20 mg tablet Take 3 tablets by mouth once daily. 90 tablet 5 10/28/2024 11/02/2024 Discontinued Start: 10-11-2021 End: 01-30-2022 take 1 tablet by mouth once daily furosemide (LASIX) 40 mg tablet Indications: Congestive heart failure, unspecified HF chronicity, unspecified heart failure type (HCC) Take 1 tablet by mouth once daily. 3 tablet 0 10/11/2021 01/30/2022 Discontinued (Other) Comment on above: Take 1 tablet by thang once daily. hydroCHLOROthiazide 12.5 mg / lisinopril 10 mg oral tablet (3 sources) Thiazide Diuretic, Angiotensin Converting Enzyme Inhibitor Start: 02-19-2018 End: 01-16-2025 Lisinopril-Hydrochloro thiazide 10-12.5 mg tablet Discontinued 1 {tbl} PO DAILY February 19, 2018 12:00am January 16, 2025 3:38pm Start: 01-15-2017 lisinopril-hyd rochlorothiazide 20-25 MG Tab per tablet Take by mouth. 0 01/15/2017 Active tadalafil 5 mg oral tablet (1 source) Phosphodiesterase 5 Inhibitor Start: 04-20-2015 End: 11-11-2018 tadalafil 5 MG Tab Take 5 mg by mouth. 0 04/20/2015 11/11/2018 Discontinued (Therapy completed) tamsulosin hydrochloride 0.4 mg oral capsule (20 sources) alpha-Adrenergic Terrell Start: 08-10-2020 End: 01-16-2025 take 1 capsule by mouth once daily at bedtime tamsulosin (FLOMAX) 0.4 mg Take 1 capsule by mouth daily at bedtime. 90 capsule 3 02/20/2022 Active Comment on above: Take 1 capsule by mo [facility] daily at bedtime. Problems Active Problems Problem Classification Problem Date Documented Da te Episodic/Chronic Abdominal pain (2 sources) Left sided abdominal pain; Translations: [Unspecified abdominal pain] Episodic Anxiety disorders (20 sources) Generalized anxiety disorder; Translations: [Generalized anxiety disorder] Onset: 08-26-2006 11-09-2017 Chronic Cardiac dysrhythmias (20 sources) Atrial fibrillation; Translations: [Paroxysmal atrial fibrillation] Onset: 01-28-2007 Resolved: 04-11-2015 11-09-2017 Chronic Chronic kidney disease (20 sources) Chronic kidney disease stage 3; Translations: [CKD (chronic kidney disease), stage III] Onset: 04-08-2018 04-08-2018 Chronic Chronic kidney disease (2 sources) Chronic kidney disease; Translations: [Stage 3b chronic kidney disease (HCC)] Onset: 11-06-2021 Chronic obstructive pulmonary disease and bronchiectasis (20 sources) Chronic obstructive lung disease; Translations: [Chronic obstructive pulmonary disease, unspecified] Onset: 02-12-2024 02-12-2024 Chronic Congestive heart failure; nonhypertensive (20 sources) Left ventricular cardiac dysfunction; Translations: [Heart disease, unspecified] Onset: 10-28-2016 11-09-2017 Chronic Disorders of lipid metabolism (20 sources) Hyperlipidemia; Translations: [Hyperlipidemia, unspecified] Onset: 08-26-2006 Resolved: 05-04-2023 11-10-2019 Chronic Essential hypertension (20 sources) Essential hypertension; Translations: [Benign essential hypertension] Onset: 02-27-2010 11-11-2017 Chronic Genitourinary symptoms and ill-defined conditions (2 sources) Finding related to casts on urine microscopy; Translations: [Other abnormal findings in urine] Episodic Heart valve disorders (20 sources) Mitral valve regurgitation; Translations: [Tricuspid valve regurgitation] Onset: 02-01-2015 11-09-2017 Chronic Hemorrhoids (20 sources) Internal hemorrhoids; Translations: [Other hemorrhoids] Onset: 11-09-2017 11-09-2017 Episodic Hypertension with complications and secondary hypertension (20 sources) Hypertensive renal disease; Translations: [Hypertensive chronic kidney disease with stage 1 through stage 4 chronic kidney disease, or unspecified chronic kidney disease] Onset: 11-06-2021 Resolved: 10-31-2022 Chronic Nausea and vomiting (1 source) Nausea; Translations: [Nausea] 08-10-2020 Episodic Other aftercare (1 source) Removal of sutures done; Translations: [Encounter for removal of sutures] 01-16-2025 Episodic Other aftercare (1 source) Encounter for removal of sutures; Translations: [Visit for suture removal] Onset: 01-16-2025 Episodic Other and ill-defined heart disease (1 source) Heart disease; Translations: [Heart disease, unspecified] 01-16-2025 Chronic Other connective tissue disease (1 source) Difficulty balancing; Translations: [Other symptoms and signs involving the nervous system] 01-16-2025 Episodic Other diseases of kidney and ureters (2 sources) Renal impairment; Translations: [Disorder of kidney and ureter, unspecified] 11-12-2023 Episodic Other diseases of kidney and ureters (1 source) Disorder of kidney and ureter, unspecified; Translations: [Renal insufficiency] Onset: 12-15-2024 Episodic Other ear and sense organ disorders (1 source) Impacted cerumen in left ear; Translations: [Impacted cerumen, left ear] 11-11-2023 Episodic Other gastrointestinal disorders (1 source) Irritable bowel syndrome with diarrhea; Translations: [Irritable bowel syndrome with diarrhea] 03-23-2024 Chronic Other gastrointestinal disorders (1 source) Irritable bowel syndrome with diarrhea; Translations: [Irritable bowel syndrome with diarrhea] Onset: 03-23-2024 Chronic Other lower respiratory disease (10 sources) Dyspnea; Translations: [Shortness of breath] Episodic Other lower respiratory disease (2 sources) Abnormal breath sounds; Translations: [Other abnormalities of breathing] Episodic Other lower respiratory disease (1 source) Disorder of lung; Translations: [Other disorders of lung] 01-16-2025 Episodic Other nervous system disorders (1 source) Abnormal sensation; Translations: [Other disturbances of skin sensation] Episodic Other nervous system disorders (1 source) Impairment of balance; Translations: [Other abnormalities of gait and mobility] 11-11-2023 Episodic Other nutritional; endocrine; and metabolic disorders (3 sources) Obese class I; Translations: [Obesity, unspecified] Onset: 11-11-2018 11-11-2018 Chronic Other nutritional; endocrine; and metabolic disorders (2 sources) Obese class I; Translations: [Obesity (BMI 30.0-34.9)] Onset: 11-11-2018 11-11-2018 Other screening for suspected conditions (not mental disorders or infectious disease) (4 sources) Patient encounter status; Translations: [Encounter for screening for malignant neoplasm of colon] Episodic [place]-; endo-; and myocarditis; cardiomyopathy (except that caused by tuberculosis or sexually transmitted disease) (1 source) Heart valve disorder; Translations: [Endocarditis, valve unspecified] 02-20-2023 Chronic Pulmonary heart disease (20 sources) Pulmonary hypertension, unspecified; Translations: [Other chronic pulmonary heart diseases] Onset: 12-08-2023 11-14-2024 Chronic Residual codes; unclassified (10 sources) Obstructive sleep apnea syndrome; Translations: [Obstructive sleep apnea (adult) (pediatric)] Onset: 01-19-2025 12-07-2024 Chronic Residual codes; unclassified (1 source) Obstructive sleep apnea (adult) (pediatric); Translations: [MARY BETH (obstructive sleep apnea)] Onset: 01-10-2025 Chronic Unclassified (1 source) Long-term current use of drug therapy; Translations: [USP 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] Onset: 10-28-2016 11-09-2017 Unclassified (1 source) Drug therapy finding; Translations: [long term 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] Onset: 10-28-2016 11-09-2017 Past or Other Problems Problem Classification Problem Date Documented Da te Episodic/Chronic Cardiac dysrhythmias (6 sources) Palpitations; Translations: [Palpitations] Onset: 11-11-2018 11-11-2018 Episodic Cataract (1 source) Cataract 12-27-2021 Conditions associated with dizziness or vertigo (20 sources) Lightheadedness; Translations: [Dizziness] Onset: 04-11-2015 Resolved: 12-07-2024 11-09-2017 Episodic Diabetes mellitus without complication (20 sources) Hyperglycemia; Translations: [Hyperglycemia, unspecified] Onset: 03-14-2021 03-14-2021 Episodic Immunizations and screening for infectious disease (1 source) Encounter for immunization; Translations: [Encounter for immunization] Onset: 05-02-2024 Episodic Other aftercare (20 sources) Long-term current use of anticoagulant; Translations: [long term (current) use of anticoagulants] Onset: 04-11-2015 11-09-2017 Episodic Other aftercare (20 sources) Long-term current use of drug therapy; Translations: [Other group home (current) drug therapy] Onset: 10-28-2016 10-28-2016 Episodic Other aftercare (1 source) USP (current) use of anticoagulants; Translations: [USP (current) use of anticoagulants] Onset: 08-04-2019 Episodic Other aftercare (1 source) Other terminal carman (current) drug therapy; Translations: [long term 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] Onset: 10-28-2016 Episodic Other diseases of veins and lymphatics (20 sources) Peripheral venous insufficiency; Translations: [Venous insufficiency (chronic) (peripheral)] Onset: 04-11-2015 11-09-2017 Episodic Other gastrointestinal disorders (20 sources) Altered bowel function; Translations: [Other specified symptoms and signs involving the digestive system and abdomen] Onset: 01-21-2018 Resolved: 03-14-2021 03-14-2021 Episodic Other lower respiratory disease (3 sources) Dyspnea on exertion; Translations: [Other forms of dyspnea] Onset: 10-17-2021 10-17-2021 Episodic Other lower respiratory disease (1 source) Shortness of breath; Translations: [SOB (shortness of breath)] Onset: 10-10-2024 Episodic Other non-epithelial cancer of skin (20 sources) History of malignant basal cell neoplasm of skin; Translations: [Personal history of other malignant neoplasm of skin] Onset: 11-08-2021 Episodic Other skin disorders (20 sources) Skin lesion; Translations: [Disorder of the skin and subcutaneous tissue, unspecified] Onset: 03-05-2010 Resolved: 12-20-2014 Episodic Phlebitis; thrombophlebitis and thromboembolism (20 sources) H/O: Deep vein thrombosis; Translations: [Personal history of other venous thrombosis and embolism] Onset: 02-14-2016 11-09-2017 Episodic Residual codes; unclassified (5 sources) Edema of lower extremity; Translations: [Localized edema] Onset: 11-11-2017 11-11-2017 Episodic Residual codes; unclassified (20 sources) Bilateral lower limb edema; Translations: [Localized edema] Onset: 04-11-2015 Resolved: 01-10-2016 01-10-2016 Episodic Screening and history of mental health and substance abuse codes (3 sources) Ex-cigarette smoker; Translations: [Personal history of nicotine dependence] Onset: 11-02-2024 11-14-2024 Episodic Results Test Name Value Interpretation Reference Range Facility [facility] 02-20-2025 [facility] Telephone ([facility]) -------- WILMER MORLEY ([id number]) 1940 M Date Time Provider Department 02/20/25 NAMITA GEE During your visit today, we recorded the following information about you: Namita Gee Formerly [facility] 02/20/2025 4:27 PM Signed [facility] Amb[facility] Anticoagulation Clinic Anticoagulation Episode Summary Anticoagulation Care Providers Provider Role Specialty Phone number Tien Serrano MD Referring Family Medicine [phone] Wilmer Morley is a 84 year old year old male patient being evaluated today for a Telemanagement visit. Patient is currently on the following anticoagulant(s) Warfarin. Labs PT INR (no units) Date Value 09/16/2021 2.9 09/02/2021 3.2 06/06/2021 2.5 biotel INR Home CoaguChek (no units) Date Value 02/20/2025 2.0 02/06/2025 2.0 01/23/2025 2.4 Hemoglobin (g/dL) Date Value 10/27/2024 13.4 03/14/2021 14.8 Hematocrit (%) Date Value 10/27/2024 40.2 03/14/2021 44.9 Platelet Count (k/uL) Date Value 10/27/2024 149 03/14/2021 191 Creatinine (mg/dL) Date Value 01/26/2025 1.45 12/15/2024 1.65 12/07/2024 1.85 03/14/2021 1.34 09/06/2020 1.27 08/06/2020 1.43 Bilirubin, Total (mg/dL) Date Value 10/27/2024 0.6 03/14/2021 1.1 ALT (U/L) Date Value 10/27/2024 20 03/14/2021 32 AST (U/L) Date Value 10/27/2024 19 03/14/2021 30 Estimated Creatinine Clearance: 44.4 mL/min (A) (based on SCr of 1.45 mg/dL (H)). ALLERGIES No Known Allergies 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: Anticoagulation Episode Summary Current INR goal: 2.0-3.0 Assessment: INR result of 2.0 is therapeutic Plan: Current Warfarin Dosing As of 02/20/2025 Full warfarin instructions: 7.5 mg every Mon; 5 mg all other days Sent HowGood message Advised patient to continue current weekly dose as noted above Next INR check due on 03/06/2025 Namita Gee [facility]ly [facility] Clinical Pharmacist, Pharmacy Anticoagulation Clinic Pharmacy Anticoagulation Clinic Pager: [phone]. Allergies As of Date: 02/20/2025 (No Known Allergies) Date Reviewed: 01/16/2025 Reviewed by: Yoana aDily LPN - Fully Assessed Reason for Visit: Anticoagulation Telephone Fu [148] Cmt: Home INR Result Prescriptions as of 02/20/2025 - CPAP Initiate Auto PAP @ 5-20 cm of water with humidification. Mask (per patient preference) optional chin strap (if indicated) , filters, tubing, humidifier and lifetime supplies. - doxazosin (CARDURA) 1 mg tablet Take 1 tablet by mouth daily at bedtime. - atenolol (TENORMIN) 25 mg tablet Take 25 mg by mouth once daily. - flecainide (TAMBOCOR) 100 mg tablet Take 100 mg by mouth two times a day. - sertraline (ZOLOFT) 100 mg tablet Take 1 tablet by mouth once daily. - furosemide (LASIX) 40 mg tablet Take 40 mg by mouth once daily. - umeclidinium-vilanterol (ANORO ELLIPTA) 62.5-25 mcg/actuation inhaler Inhale 1 Inhalation as instructed once daily. - warfarin (COUMADIN) 5 mg tablet 7.5 mg every Mon, Fri; 5 mg all other days - lisinopril (ZESTRIL) 10 mg tablet Take 1 tablet by mouth once daily. - flecainide (TAMBOCOR) 100 mg tablet Take 1 tablet by mouth two times a day. - atorvastatin (LIPITOR) 20 mg tablet Take 1 tablet by mouth once daily. - albuterol HFA (VENTOLIN HFA) 90 mcg/actuation inhaler Inhale 2 Puffs as instructed every 4 hours as needed for wheezing/shortness of breath. - loperamide HCl (IMODIUM) 2 mg tab Take 1 tablet by mouth as needed. - amLODIPine (NORVASC) 5 mg tablet Take 5 mg by mouth once daily. Problem List As Of Date 02/20/2025 Noted Resolved Hyperlipidemia LDL goal <100 [E78.5] 08/26/2006 05/04/2023 GENERALIZED ANXIETY DIS [F41.1] 08/26/2006 ATRIAL FIBRILLATION [I48.91] 01/28/2007 INT HEMORRHOID W/O COMPL [K64.8] Essential hypertension, benign [I10] 02/27/2010 Skin lesion [L98.9] 03/05/2010 12/20/2014 Moderate mitral regurgitation [I34.0] 02/01/2015 Moderate tricuspid regurgitation [I07.1] 02/01/2015 Paroxysmal atrial fibrillation (HCC) [I48.0] 03/19/2015 04/11/2015 long term (current) use of anticoagulants [Z79.*04/11/2015 Episodic lightheadedness [R42] 04/11/2015 01/21/2018 Bilateral edema of lower extremity [R60.0] 04/11/2015 01/10/2016 Venous (peripheral) insufficiency [I87.2] 04/11/2015 History of DVT (deep vein thrombosis) [Z86.718] 02/14/2016 Asymptomatic LV dysfunction [I51.9] 10/28/2016 USP current use of antiarrhythmic medical*10/28/2016 Change in bowel movement [R19.8] 01/21/2018 03/14/2021 Stage 3a chronic kidney disease (HCC) [N18.31] 04/08/2018 Hyperglycemia [R73.9] 03/14/2021 Hypertensive kidney disease with stage 3a chron*11/06/2021 10/31/2022 Hx of skin cancer, basal cell [Z85.828] 11/08/2021 Vertigo [R42] 02/02/2024 Benign paroxysmal positional vertigo of right e*02/02/2024 Chronic obstructive pulmonary disease (HCC) [J4*02/12/2024 (more content not included)... Normal [facility] Chris 02-07-2025 CNPN Telephone ([facility] -------- WILMER MORLEY ([id number]) 1940 M Date Time Provider Department 02/07/25 ARABELLA LOPEZ During your visit today, we recorded the following information about you: Arabella Lopez Formerly [facility] 02/07/2025 8:40 AM Signed [facility] Ambulatory Pharmacy Anticoagulation Clinic Anticoagulation Episode Summary Anticoagulation Care Providers Provider Role Specialty Phone number Tien Serrano MD Referring Family Medicine [phone] Wilmer Morley is a 84 year old year old male patient being evaluated today for a Telemanagement visit. Patient is currently on the following anticoagulant(s) Warfarin. Labs Lab Results Component Value Date INR 2.0 02/06/2025 INR 2.4 01/23/2025 INR 2.4 01/09/2025 Lab Results Component Value Date HB 13.4 10/27/2024 HB 13.9 11/03/2023 HB 13.9 01/30/2022 Lab Results Component Value Date HCT 40.2 10/27/2024 HCT 42.3 11/03/2023 HCT 43.0 01/30/2022 Lab Results Component Value Date PLT 149 (L) 10/27/2024 PLT 162 11/03/2023 PLT 170 01/30/2022 Lab Results Component Value Date CREAT 1.45 (H) 01/26/2025 CREAT 1.65 (H) 12/15/2024 CREAT 1.85 (H) 12/07/2024 No components found for: TBILI3 Lab Results Component Value Date ALT 20 10/27/2024 ALT 35 11/03/2023 ALT 13 10/27/2022 Lab Results Component Value Date AST 19 10/27/2024 AST 33 11/03/2023 AST 14 10/27/2022 Estimated Creatinine Clearance: 44.4 mL/min (A) (based on SCr of 1.45 mg/dL (H)). ALLERGIES No Known Allergies 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: Anticoagulation Episode Summary Current INR goal: 2.0-3.0 Assessment: INR result of 2.0 is therapeutic Plan: Current Warfarin Dosing As of 02/07/2025 Full warfarin instructions: 7.5 mg every Mon; 5 mg all other days Sent HowGood message Advised patient to continue current weekly dose as noted above Next home INR check scheduled on 02/21/2025 Patient advised to call the PAC with any medication changes, bleeding/bruising concerns, recent changes in vitamin k consumption, if any procedures are coming up, if they have been ill or in the hospital, and if they have missed any doses of warfarin. Arabella Lopez Formerly [facility] Clinical Pharmacist, Pharmacy Anticoagulation Clinic Pharmacy Anticoagulation Clinic Pager: [phone]. Allergies As of Date: 02/07/2025 (No Known Allergies) Date Reviewed: 01/16/2025 Reviewed by: Yoana Daily LPN - Fully Assessed Reason for Visit: Anticoagulation Telephone Fu [148] Cmt: Home INR result Prescriptions as of 02/07/2025 - CPAP Initiate Auto PAP @ 5-20 cm of water with humidification. Mask (per patient preference) optional chin strap (if indicated) , filters, tubing, humidifier and lifetime supplies. - doxazosin (CARDURA) 1 mg tablet Take 1 tablet by mouth daily at bedtime. - atenolol (TENORMIN) 25 mg tablet Take 25 mg by mouth once daily. - flecainide (TAMBOCOR) 100 mg tablet Take 100 mg by mouth two times a day. - sertraline (ZOLOFT) 100 mg tablet Take 1 tablet by mouth once daily. - furosemide (LASIX) 40 mg tablet Take 40 mg by mouth once daily. - umeclidinium-vilanterol (ANORO ELLIPTA) 62.5-25 mcg/actuation inhaler Inhale 1 Inhalation as instructed once daily. - warfarin (COUMADIN) 5 mg tablet 7.5 mg every Mon, Fri; 5 mg all other days - lisinopril (ZESTRIL) 10 mg tablet Take 1 tablet by mouth once daily. - flecainide (TAMBOCOR) 100 mg tablet Take 1 tablet by mouth two times a day. - atorvastatin (LIPITOR) 20 mg tablet Take 1 tablet by mouth once daily. - albuterol HFA (VENTOLIN HFA) 90 mcg/actuation inhaler Inhale 2 Puffs as instructed every 4 hours as needed for wheezing/shortness of breath. - loperamide HCl (IMODIUM) 2 mg tab Take 1 tablet by mouth as needed. - amLODIPine (NORVASC) 5 mg tablet Take 5 mg by mouth once daily. Problem List As Of Date 02/07/2025 Noted Resolved Hyperlipidemia LDL goal <100 [E78.5] 08/26/2006 05/04/2023 GENERALIZED ANXIETY DIS [F41.1] 08/26/2006 ATRIAL FIBRILLATION [I48.91] 01/28/2007 INT HEMORRHOID W/O COMPL [K64.8] Essential hypertension, benign [I10] 02/27/2010 Skin lesion [L98.9] 03/05/2010 12/20/2014 Moderate mitral regurgitation [I34.0] 02/01/2015 Moderate tricuspid regurgitation [I07.1] 02/01/2015 Paroxysmal atrial fibrillation (HCC) [I48.0] 03/19/2015 04/11/2015 long term (current) use of anticoagulants [Z79.*04/11/2015 Episodic lightheadedness [R42] 04/11/2015 01/21/2018 Bilateral edema of lower extremity [R60.0] 04/11/2015 01/10/2016 Venous (peripheral) insufficiency [I87.2] 04/11/2015 History of DVT (deep vein thrombosis) [Z86.718] 02/14/2016 Asymptomatic LV dysfunction [I51.9] 10/28/2016 USP current use of antiarrhythmic medical*10/28/2016 Change in bowel movement [R19.8] 01/21/2018 03/14/2021 Stage 3a chronic kidney disease (HCC) [N18.31] 04/08/2018 Hyperglycemia [ (more content not included)... Normal [facility] Basic metabolic 2000 panelOr dered By: Seema Nix on 01-26-2025 Anion gap [Moles/Vol] 12 mmol/L 8 - 15 mmol/L [facility] Calcium [Mass/Vol] 9.3 mg/dL 8.5 - 10. 2 mg/dL [facility] Chloride [Moles/Vol] 104 mmol/L 98 - 10 7 mmol/L [facility] CO2 [Moles/Vol] 21 mmol/L Low 22 - 30 mmol/L [facility] Creatinine [Mass/Vol] 1.45 mg/dL High 0.73 - 1.22 mg/dL [facility] GFR/1.73 sq M.predicted among non-blacks MDRD (S/P/Bld) [Vol rate/Area] 48 mL/min/{1.73_m2} Low - PINF [facility] Comment on above: Estimated Glomerular Filtration Rate (eGFR) is calculated using the 2020 CKD-EPI creatinine equation. This equation utilizes serum creatinine, sex, and age as parameters. The creatinine assay has traceable calibration to isotope dilution-mass spectrometry. Refer to KDIGO guidelines for clinical interpretation. In patients with unstable renal function, e.g. those with acute kidney injury, the eGFR may not accurately reflect actual GFR. Glucose [Mass/Vol] 90 mg/dL 74 - 99 mg/dL [facility] Comment on above: The [place] Diab[employer] [place] Association (ADA) provides guidance for cutoff values for fasting glucose and random glucose. The ADA defines fasting as no caloric intake for at least 8 hours. Fasting plasma glucose results between 100 to 125 mg/dL indicate increased risk for diabetes (prediabetes). Fasting plasma glucose results greater than or equal to 126 mg/dL meet the criteria for diagnosis of diabetes. In the absence of unequivocal hyperglycemia, results should be confirmed by repeat testing. In a patient with classic symptoms of hyperglycemia or hyperglycemic crisis, random plasma glucose results greater than or equal to 200 mg/dL meet the criteria for diagnosis of diabetes. Reference: Standards of Medical Care in Diabetes 2016, [place] Diabetes Association. Diabetes Care. 2016.39(Suppl 1). Interpretation and review of laboratory results Abnormal [facility] Potassium [Moles/Vol] 4.5 mmol/L 3.7 - 5.1 mmol/L [facility] Sodium [Moles/Vol] 137 mmol/L 136 - 144 mmol/L [facility] Urea nitrogen [Mass/Vol] 31 mg/dL High 9 - 24 mg/dL [facility] Basic metabolic 2000 panelon 01-26-2025 Anion gap [Moles/Vol] 12 mmol/L Normal 8-15 [facility] Comment on above: Order Comment: Speci men Type: BLOOD SPECIMENOrdering Facility: [facility] Address: [address] [place] [address] Performed By: #### 2 4321-2 ####[facility] [id number] [place] [address] [place] Calcium [Mass/Vol] 9.3 mg/dL Normal 8.5-10.2 [facility] Comment on above: Order Comment: Speci men Type: BLOOD SPECIMENOrdering Facility: [facility] Address: [address] [place] [address] Performed By: #### 2 4321-2 ####[facility] MILLWDARELLLIA [id number] [place] [address] [place] Chloride [Moles/Vol] 104 mmol/L Normal 98-107 [facility] Comment on above: Order Comment: Speci men Type: BLOOD SPECIMENOrdering Facility: [facility] Address: [address] [place] [address] Performed By: #### 2 4321-2 ####[facility]ITALDARELLL[facility] [id number] [place] [address] [place] CO2 [Moles/Vol] 21 mmol/L Low 22-30 [facility] Comment on above: Order Comment: Speci men Type: BLOOD SPECIMENOrdering Facility: [facility] Address: [address] [place] [address] Performed By: #### 2 4321-2 ####[facility] SYSTEM[facility] [id number] [place] [address] [place] Creatinine [Mass/Vol] 1.45 mg/dL High 0.73-1.22 [facility] Comment on above: Order Comment: Speci men Type: BLOOD SPECIMENOrdering Facility: [facility] Address: [address] [place] [address] Performed By: #### 2 4321-2 ####[facility]ITALNCLIA [id number] [place] [address] [place] eGFRcr SerPlBld CKD-EPI 2020 48 mL/min/1.73m??? Low >=60 [facility] Comment on above: Order Comment: Martha murguia Type: BLOOD SPECIMENOrdering Facility: [facility] Address: [address] [place] [address] Result Comment: Mary Jo mated Glomerular Filtration Rate (eGFR) is calculated using the 2020 CKD-EPI creatinine equation. This equation utilizes serum creatinine, sex, and age as parameters. The creatinine assay has traceable calibration to isotope dilution-mass spectrometry. Refer to KDIGO guidelines for clinical interpretation. In patients with unstable renal function, e.g. those with acute kidney injury, the eGFR may not accurately reflect actual GFR. Performed By: #### 2 4321-2 ####[facility] [id number] [place] [address] [place] Glucose [Mass/Vol] 90 mg/dL Normal 74-99 [facility] Comment on above: Order Comment: Martha murguia Type: BLOOD SPECIMENOrdering Facility: [facility] Address: [address] [place] [address] Result Comment: The [place] Diabetes Association (ADA) provides guidance for cutoff values for fasting glucose and random glucose. The ADA defines fasting as no caloric intake for at least 8 hours. Fasting plasma glucose results between 100 to 125 mg/dL indicate increased risk for diabetes (prediabetes). Fasting plasma glucose results greater than or equal to 126 mg/dL meet the criteria for diagnosis of diabetes. In the absence of unequivocal hyperglycemia, results should be confirmed by repeat testing. In a patient with classic symptoms of hyperglycemia or hyperglycemic crisis, random plasma glucose results greater than or equal to 200 mg/dL meet the criteria for diagnosis of diabetes. Reference: Standards of Medical Care in Diabetes 2016, [place] Diabetes Association. Diabetes Care. 2016.39(Suppl 1). Performed By: #### 2 4321-2 ####[facility] [id number] [place] [address] [place] Potassium [Moles/Vol] 4.5 mmol/L Normal 3.7-5.1 [facility] Comment on above: Order Comment: Martha murguia Type: BLOOD SPECIMENOrdering Facility: [facility] Address: [address] [id number] Performed By: #### 2 4321-2 ####[facility] CLAUWNCLIA [id number] [place] [address] [place] Sodium [Moles/Vol] 137 mmol/L Normal 136-144 [facility] Comment on above: Order Comment: Speci men Type: BLOOD SPECIMENOrdering Facility: [facility] Address: [facility] [place] [address] Performed By: #### 2 4321-2 ####[facility] SHARIBUFFALONCLIA [id number] [place] [address] [place] Urea nitrogen [Mass/Vol] 31 mg/dL High 9-24 [facility] Comment on above: Order Comment: Speci men Type: BLOOD SPECIMENOrdering Facility: [facility] Address: [address] [place] [address] Performed By: #### 2 4321-2 ####[facility] SYSTEML[facility] [id number] [address] OF [place] CNPEufemia 01-23-20[facility] WILMER MORLEY ([id number]) 1940 M Date Time Provider Department 01/23/25 NAMITA GEE During your visit today, we recorded the following information about you: Namita Gee RPh 01/23/2025 1:35 PM S[address] [facility] Ambulatory Pharmacy Anticoagulation Clinic Anticoagulation Episode Summary Anticoagulation Care Providers Provider Role Specialty Phone number Tien Serrano MD Referring Family Medicine [phone] Wilmer Morley is a 84 year old year old male patient being evaluated today for a Telemanagement visit. Patient is currently on the following anticoagulant(s) Warfarin. Labs PT INR (no units) Date Value 09/16/2021 2.9 09/02/2021 3.2 06/06/2021 2.5 biotel INR Home CoaguChek (no units) Date Value 01/23/2025 2.4 01/09/2025 2.4 12/21/2024 3.0 Hemoglobin (g/dL) Date Value 10/27/2024 13.4 03/14/2021 14.8 Hematocrit (%) Date Value 10/27/2024 40.2 03/14/2021 44.9 Platelet Count (k/uL) Date Value 10/27/2024 149 03/14/2021 191 Creatinine (mg/dL) Date Value 12/15/2024 1.65 12/07/2024 1.85 11/07/2024 1.31 03/14/2021 1.34 09/06/2020 1.27 08/06/2020 1.43 Bilirubin, Total (mg/dL) Date Value 10/27/2024 0.6 03/14/2021 1.1 ALT (U/L) Date Value 10/27/2024 20 03/14/2021 32 AST (U/L) Date Value 10/27/2024 19 03/14/2021 30 Estimated Creatinine Clearance: 39.1 mL/min (A) (based on SCr of 1.65 mg/dL (H)). ALLERGIES No Known Allergies 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: Anticoagulation Episode Summary Current INR goal: 2.0-3.0 Assessment: INR result of 2.4 is therapeutic Plan: Current Warfarin Dosing As of 01/23/2025 Full warfarin instructions: 7.5 mg every Mon; 5 mg all other days Sent HowGood message Advised patient to continue current weekly dose as noted above Next INR check due on 02/13/2025 Namita Gee [facility] Clinical Pharmacist, Pharmacy Anticoagulation Clinic Pharmacy Anticoagulation Clinic Pager: [phone]. Allergies As of Date: 01/23/2025 (No Known Allergies) Date Reviewed: 01/16/2025 Reviewed by: Yoana Daily LPN - Fully Assessed Reason for Visit: Anticoagulation Telephone Fu [148] Cmt: Home INR Result Prescriptions as of 01/23/2025 - doxazosin (CARDURA) 1 mg tablet Take 1 tablet by mouth daily at bedtime. - atenolol (TENORMIN) 25 mg tablet Take 25 mg by mouth once daily. - flecainide (TAMBOCOR) 100 mg tablet Take 100 mg by mouth two times a day. - sertraline (ZOLOFT) 100 mg tablet Take 1 tablet by mouth once daily. - furosemide (LASIX) 40 mg tablet Take 40 mg by mouth once daily. - umeclidinium-vilanterol (ANORO ELLIPTA) 62.5-25 mcg/actuation inhaler Inhale 1 Inhalation as instructed once daily. - warfarin (COUMADIN) 5 mg tablet 7.5 mg every Mon, Fri; 5 mg all other days - lisinopril (ZESTRIL) 10 mg tablet Take 1 tablet by mouth once daily. - flecainide (TAMBOCOR) 100 mg tablet Take 1 tablet by mouth two times a day. - atorvastatin (LIPITOR) 20 mg tablet Take 1 tablet by mouth once daily. - albuterol HFA (VENTOLIN HFA) 90 mcg/actuation inhaler Inhale 2 Puffs as instructed every 4 hours as needed for wheezing/shortness of breath. - loperamide HCl (IMODIUM) 2 mg tab Take 1 tablet by mouth as needed. - amLODIPine (NORVASC) 5 mg tablet Take 5 mg by mouth once daily. Problem List As Of Date 01/23/2025 Noted Resolved Hyperlipidemia LDL goal <100 [E78.5] 08/26/2006 05/04/2023 GENERALIZED ANXIETY DIS [F41.1] 08/26/2006 ATRIAL FIBRILLATION [I48.91] 01/28/2007 INT HEMORRHOID W/O COMPL [K64.8] Essential hypertension, benign [I10] 02/27/2010 Skin lesion [L98.9] 03/05/2010 12/20/2014 Moderate mitral regurgitation [I34.0] 02/01/2015 Moderate tricuspid regurgitation [I07.1] 02/01/2015 Paroxysmal atrial fibrillation (HCC) [I48.0] 03/19/2015 04/11/2015 USP (current) use of anticoagulants [Z79.*04/11/2015 Episodic lightheadedness [R42] 04/11/2015 01/21/2018 Bilateral edema of lower extremity [R60.0] 04/11/2015 01/10/2016 Venous (peripheral) insufficiency [I87.2] 04/11/2015 History of DVT (deep vein thrombosis) [Z86.718] 02/14/2016 Asymptomatic LV dysfunction [I51.9] 10/28/2016 long term current use of antiarrhythmic medical*10/28/2016 Change in bowel movement [R19.8] 01/21/2018 03/14/2021 Stage 3a chronic kidney disease (HCC) [N18.31] 04/08/2018 Hyperglycemia [R73.9] 03/14/2021 Hypertensive kidney disease with stage 3a chron*11/06/2021 10/31/2022 Hx of skin cancer, basal cell [Z85.828] 11/08/2021 Vertigo [R42] 02/02/2024 Benign paroxysmal positional vertigo of right e*02/02/2024 Chronic obstructive pulmonary disease (HCC) [J4*02/12/2024 Pulmonary HTN (HCC) [I27.20] 12/07/2024 MARY BETH (obstructive sleep apnea) [G47.33] 01/19/2025 Encounter Status:Closed by NAMITA GEE [facility]/25 [facility] WILMER MORLEY ([id number]) 1940 M Date Time Provider Department 01/19/25 ITEN SERRANO During your visit today, we recorded the following information about you: Tien Serrano MD 01/19/2025 8:53 AM Signed Sleep study shows mild sleep apnea. We could consider cpap treatment or we can have him work on things like side sleeping and keeping weight tight if he does not want to. Let me know If he is willing to do cpap, we can set him up for autopap and a sleep apnea consult Stephany Stein MA 01/19/2025 9:58 AM Signed Patient was made aware of the results. Patient verbalizes understanding. He would like to think on this and call back Brian Stoll Lisa, MA 01/28/2025 12:04 PM Signed Closing encounter as patient has not called back in over a week since results were given Nicky Dodd LPN 02/03/2025 3:27 PM Signed Patient calling back decided he better do what Dr said, so he is willing to do the Autopap, and Sleep consult. He is calling his insurance to find out what DME is covered, he will call back. Pending Sleep Medicine consult, needs diagnosis. Nicky Dodd LPN 02/03/2025 3:27 PM Signed Addended by: NICKY DODD on: 02/03/2025 03:27 PM Modules accepted: Orders Tien Serrano MD 02/03/2025 5:13 PM Signed done Tien Serrano MD 02/03/2025 5:13 PM Signed Addended by: TIEN SERRANO on: 02/03/2025 05:13 PM Modules accepted: Orders Allergies As of Date: 01/19/2025 (No Known Allergies) Date Reviewed: 01/16/2025 Reviewed by: Yoana Daily LPN - Fully Assessed Reason for Visit: Results [95] Primary Visit Diagnosis:MARY BETH (obstructive sleep apnea) [G47.33] Comment:mild Order(s):CPAPInitiate Auto PAP @ 5-20 cm of water with humidification. Mask (per patient preference) optional chin strap (if indicated) , filters, tubing, humidifier and lifetime supplies.Disp: 1 eachRfl: 0 CONSULT TO SLEEP MEDICINE - ADULT [[id number]] Order #: [id number]: 1 FUTURE Prescriptions as of 02/03/2025 - CPAP Initiate Auto PAP @ 5-20 cm of water with humidification. Mask (per patient preference) optional chin strap (if indicated) , filters, tubing, humidifier and lifetime supplies. - doxazosin (CARDURA) 1 mg tablet Take 1 tablet by mouth daily at bedtime. - atenolol (TENORMIN) 25 mg tablet Take 25 mg by mouth once daily. - flecainide (TAMBOCOR) 100 mg tablet Take 100 mg by mouth two times a day. - sertraline (ZOLOFT) 100 mg tablet Take 1 tablet by mouth once daily. - furosemide (LASIX) 40 mg tablet Take 40 mg by mouth once daily. - umeclidinium-vilanterol (ANORO ELLIPTA) 62.5-25 mcg/actuation inhaler Inhale 1 Inhalation as instructed once daily. - warfarin (COUMADIN) 5 mg tablet 7.5 mg every Mon, Fri; 5 mg all other days - lisinopril (ZESTRIL) 10 mg tablet Take 1 tablet by mouth once daily. - flecainide (TAMBOCOR) 100 mg tablet Take 1 tablet by mouth two times a day. - atorvastatin (LIPITOR) 20 mg tablet Take 1 tablet by mouth once daily. - albuterol HFA (VENTOLIN HFA) 90 mcg/actuation inhaler Inhale 2 Puffs as instructed every 4 hours as needed for wheezing/shortness of breath. - loperamide HCl (IMODIUM) 2 mg tab Take 1 tablet by mouth as needed. - amLODIPine (NORVASC) 5 mg tablet Take 5 mg by mouth once daily. Problem List As Of Date 01/19/2025 Noted Resolved Hyperlipidemia LDL goal <100 [E78.5] 08/26/2006 05/04/2023 GENERALIZED ANXIETY DIS [F41.1] 08/26/2006 ATRIAL FIBRILLATION [I48.91] 01/28/2007 INT HEMORRHOID W/O COMPL [K64.8] Essential hypertension, benign [I10] 02/27/2010 Skin lesion [L98.9] 03/05/2010 12/20/2014 Moderate mitral regurgitation [I34.0] 02/01/2015 Moderate tricuspid regurgitation [I07.1] 02/01/2015 Paroxysmal atrial fibrillation (HCC) [I48.0] 03/19/2015 04/11/2015 long term (current) use of anticoagulants [Z79.*04/11/2015 Episodic lightheadedness [R42] 04/11/2015 01/21/2018 Bilateral edema of lower extremity [R60.0] 04/11/2015 01/10/2016 Venous (peripheral) insufficiency [I87.2] 04/11/2015 History of DVT (deep vein thrombosis) [Z86.718] 02/14/2016 Asymptomatic LV dysfunction [I51.9] 10/28/2016 long term current use of antiarrhythmic medical*10/28/2016 Change in bowel movement [R19.8] 01/21/2018 03/14/2021 Stage 3a chronic kidney disease (HCC) [N18.31] 04/08/2018 Hyperglycemia [R73.9] 03/14/2021 Hypertensive kidney disease with stage 3a chron*11/06/2021 10/31/2022 Hx of skin cancer, basal cell [Z85.828] 11/08/2021 Vertigo [R42] 02/02/2024 Benign paroxysmal positional vertigo of right e*02/02/2024 Chronic obstructive pulmonary disease (HCC) [J4*02/12/2024 Pulmonary HTN (HCC) [I27.20] 12/07/2024 MARY BETH (obstructive sleep apnea) [G47.33] 01/19/2025 Prescriptions ordered this encounter Disp Refills Start End CPAP 1 ea* 0 02/03/2025 Class: Print RX Sig: Initiate Auto PAP @ 5-20 cm of water w (more content not included)... Normal [facility] CNTHERAPYon 01-17-2025 CNTHERAPY OT/PT/Speech Visit (PTWS) -------- WILMER MORLEY ([id number]) 1940 M Date Time Provider Department 01/17/25 9:45 AM MICHELLE GOMEZ PTWS Date Time Provider Department Center 01/17/2025 9:45 AM [id number] GOMEZ PTMAURY Adames Reason for Visit: PT Eval [747] Primary Visit Diagnosis:Vertigo [R42] Allergies As of Date: 01/17/2025 (No Known Allergies) Date Reviewed: 01/16/2025 Reviewed by: Yoana Daily LPN - Fully Assessed Prescriptions as of 01/17/2025 - doxazosin (CARDURA) 1 mg tablet Take 1 tablet by mouth daily at bedtime. - atenolol (TENORMIN) 25 mg tablet Take 25 mg by mouth once daily. - flecainide (TAMBOCOR) 100 mg tablet Take 100 mg by mouth two times a day. - sertraline (ZOLOFT) 100 mg tablet Take 1 tablet by mouth once daily. - furosemide (LASIX) 40 mg tablet Take 40 mg by mouth once daily. - umeclidinium-vilanterol (ANORO ELLIPTA) 62.5-25 mcg/actuation inhaler Inhale 1 Inhalation as instructed once daily. - warfarin (COUMADIN) 5 mg tablet 7.5 mg every Mon, Fri; 5 mg all other days - lisinopril (ZESTRIL) 10 mg tablet Take 1 tablet by mouth once daily. - flecainide (TAMBOCOR) 100 mg tablet Take 1 tablet by mouth two times a day. - atorvastatin (LIPITOR) 20 mg tablet Take 1 tablet by mouth once daily. - albuterol HFA (VENTOLIN HFA) 90 mcg/actuation inhaler Inhale 2 Puffs as instructed every 4 hours as needed for wheezing/shortness of breath. - loperamide HCl (IMODIUM) 2 mg tab Take 1 tablet by mouth as needed. - amLODIPine (NORVASC) 5 mg tablet Take 5 mg by mouth once daily. [facility] WILMER MORLEY ([id number]) 1940 M Date Time Provider Department 01/16/25 2:15 PM BLAYNE DAVIS During your visit today, we recorded the following information about you: Blayne Davis APRN.OVERHEAD GARAGE DOOR HANGER 01/16/2025 2:42 PM Signed Patient triaged at [facility]. Here today with suture removal, surgical procedure removing skin cancer. I advised patient to have sutures removed via web designer developer. Appears to be a complex surgical removal. Allergies As of Date: 01/16/2025 (No Known Allergies) Date Reviewed: 01/16/2025 Reviewed by: Yonaa Daily LPN - Fully Assessed Reason for Visit: Other [0] Cmt: Stitch removal - Entered by patient Suture Removal [105] Cmt: Suture removal left forearm placed in [place] Primary Visit Diagnosis:Visit for suture removal [Z48.02] Prescriptions as of 01/16/2025 - doxazosin (CARDURA) 1 mg tablet Take 1 tablet by mouth daily at bedtime. - atenolol (TENORMIN) 25 mg tablet Take 25 mg by mouth once daily. - flecainide (TAMBOCOR) 100 mg tablet Take 100 mg by mouth two times a day. - sertraline (ZOLOFT) 100 mg tablet Take 1 tablet by mouth once daily. - furosemide (LASIX) 40 mg tablet Take 40 mg by mouth once daily. - umeclidinium-vilanterol (ANORO ELLIPTA) 62.5-25 mcg/actuation inhaler Inhale 1 Inhalation as instructed once daily. - warfarin (COUMADIN) 5 mg tablet 7.5 mg every Mon, Fri; 5 mg all other days - lisinopril (ZESTRIL) 10 mg tablet Take 1 tablet by mouth once daily. - flecainide (TAMBOCOR) 100 mg tablet Take 1 tablet by mouth two times a day. - atorvastatin (LIPITOR) 20 mg tablet Take 1 tablet by mouth once daily. - albuterol HFA (VENTOLIN HFA) 90 mcg/actuation inhaler Inhale 2 Puffs as instructed every 4 hours as needed for wheezing/shortness of breath. - loperamide HCl (IMODIUM) 2 mg tab Take 1 tablet by mouth as needed. - amLODIPine (NORVASC) 5 mg tablet Take 5 mg by mouth once daily. Problem List As Of Date 01/16/2025 Noted Resolved Hyperlipidemia LDL goal <100 [E78.5] 08/26/2006 05/04/2023 GENERALIZED ANXIETY DIS [F41.1] 08/26/2006 ATRIAL FIBRILLATION [I48.91] 01/28/2007 INT HEMORRHOID W/O COMPL [K64.8] Essential hypertension, benign [I10] 02/27/2010 Skin lesion [L98.9] 03/05/2010 12/20/2014 Moderate mitral regurgitation [I34.0] 02/01/2015 Moderate tricuspid regurgitation [I07.1] 02/01/2015 Paroxysmal atrial fibrillation (HCC) [I48.0] 03/19/2015 04/11/2015 long term (current) use of anticoagulants [Z79.*04/11/2015 Episodic lightheadedness [R42] 04/11/2015 01/21/2018 Bilateral edema of lower extremity [R60.0] 04/11/2015 01/10/2016 Venous (peripheral) insufficiency [I87.2] 04/11/2015 History of DVT (deep vein thrombosis) [Z86.718] 02/14/2016 Asymptomatic LV dysfunction [I51.9] 10/28/2016 USP current use of antiarrhythmic medical*10/28/2016 Change in bowel movement [R19.8] 01/21/2018 03/14/2021 Stage 3a chronic kidney disease (HCC) [N18.31] 04/08/2018 Hyperglycemia [R73.9] 03/14/2021 Hypertensive kidney disease with stage 3a chron*11/06/2021 10/31/2022 Hx of skin cancer, basal cell [Z85.828] 11/08/2021 Lightheaded [R42] 02/02/2024 12/07/2024 Benign paroxysmal positional vertigo of right e*02/02/2024 Chronic obstructive pulmonary disease (HCC) [J4*02/12/2024 Pulmonary HTN (HCC) [I27.20] 12/07/2024 Encounter Status:Closed by BLAYNE DAVIS on 01/16/25 [facility] Urgent Care Visit Reporton 0 01-16-2025 Urgent Care Visit Report [facility] [address], [address] [place] [address] OFFICE VISIT Date of Service: 01/16/25 MR#: [id number] Acct: [id number] Name: WILMER MORLEY Rep #: [id number] : 1940 Provider: BROOK Cabrera Age/Sex: 84/M Location: [facility] Status: Signed Intake Vital Signs 08/24/20 11:42 01/16/25 15:40 Height 5 ft 10 in 5 ft 10 in Weight: 206 lb 2 oz BMI 29.5 BP 110/60 Position Sitting Respiration 18 Pulse 100 Temp 98.3 F Temp Source Oral Pulse Oximetry (%) 96 Oxygen Delivery Method room air Intake Visit Reasons: suture removal Chief Complaint: suture removal Accompanied by: Self Allergies No Known Allergies Allergy (Verified 01/16/25 15:38) Medications ???Medication ???Instructions ???Recorded ???Confirmed ???Type atorvastatin 20 mg tablet (Lipitor) 20 mg PO DAILY 02/19/18 5 History warfarin 5 mg tablet (Coumadin) 5 mg PO MOTUWETHFRSA 02/19/1801/06 History warfarin 6 mg tablet 5 mg PO SUTUWETHSA 03/08/18 History omeprazole 20 mg capsule,delayed 20 mg PO DAILY 08/14/20 08/16/20 H istory release lisinopril 10 mg tablet 10 mg PO DAILY #30 tabs 08/24/20 0 01/16/25 Rx doxazosin 1 mg tablet 1 mg PO QHS 01/16/25 01/16/25 Hist ory Have you fallen in the past year?: No Nurse's Note: Patient goes to [place] half the year. 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 Patient just need the sutures taken out. [facility] Medical History (Updated 01/16/25 @ 15:40 by Olinda Echols MA) Nausea Abdominal pain History of basal cell carcinoma CKD (chronic kidney disease) Diverticulosis Hyperlipidemia History of colonic polyps Diarrhea Anxiety Hypertension History of DVT (deep vein thrombosis) Atrial fibrillation Surgical History (Updated 01/16/25 @ 16:05 by BROOK Prasad) S/P Mohs surgery for basal cell carcinoma History of colonoscopy ( 2018) history bilateral cataract surgery History of elbow surgery History of tonsillectomy Family History (Updated 08/10/20 @ 12:16 by Do Cornell) Mother CAD (coronary artery disease) Father CAD (coronary artery disease) CHF (congestive heart failure) Brother Cancer Stomach Myocardial infarction Sister Asthma Social History (Updated 08/10/20 @ 13:[address] Adin Garcia MD) Smoking Status: Former smoker alcohol intake: current alcohol intake frequency: 0-2 drinks per day Alcohol type: other details: [place] substance use type: does not use HPI HPI Chief Complaint: suture removal Details: WILMER MORLEY, is a 84 M who presents to the office today for suture removal s/p Mohs surgery to L FA 2 wks ago. Asymptomatic, noting x8 running sutures to the same. ROS Const Constitutional: No other (as above) Exam Const General: cooperative, healthy appearing and no acute distress Nutritional Appearance: average body habitus Orientation: alert and awake Resp Effort Inspection: normal respiratory effort and able to speak in complete sentences Cardio Rate: regular rate Pulses: radial pulses present Skin General: no rashes or lesions noted Other: Mohs surgery incision to left forearm with times 8 running sutures all removed without incident and wound approximation well-maintained. Site recleansed thereafter, then bacitracin ointment and dressing and Coban applied which patient tolerated well. Neuro General: patient alert and patient awake Cognition: normal cognition Speech: speech normal Extrem General: normal to inspection Psych Appearance: grossly normal Mental Status: mental status grossly normal Mood: congruent mood Affect: normal affect Speech and Movement: speech and movement normal Attitude: cooperative Coding Level of Care Code Attention Acid Adjuster Diagnoses S/P Mohs surgery for basal cell carcinoma Z98.890; Z85.828 Comment [id number], 10363 Assessment and Plan Assessment and Plan (1) S/P Mohs surgery for basal cell carcinoma: Status: Acute Plan: - To left forearm here for suture removal today All 8 running sutures removed without incident and wound approximation well-maintained. Continue daily wound care for an additional week as instructed today. Follow-up in the NOW clinic on an as-needed basis only. Patient states acknowledging understanding all the above. This note was generated with Flowonixation software. It may contain incorrect words, spelling, and punctuation that were not noted in checking the note before signing. Clinical Quality Measures Falls Risk Screening/Assistive Devices Have you fallen in the past year?: No 01/16/25 1607 Date Iglesia Perdue Signature: D (more content not included)... Normal [facility] POLYSOMNOGRAM (PSG)/HOME SLE EP APNEA TEST (HSAT)on 01-11-2025 POLYSOMNOGRAM (PSG)/HOME SLEEP APNEA TEST (HSAT) [facility] at [address], [address] [address] ; Home Sleep Apnea Test (HSAT) Study Report Name: WILMER MORLEY Date of Study: 01/11/2025 [facility]#: [id number] Age: 84 (: 1940) ESS: 08/29 Neck Circ. (cm): 40.0 Height (cm): 178.0 Weight (kg): 93.0 BMI: 29.4 Referring Provider: TIEN SERRANO Mailcode: [id number] Sleep history: The patient is a 84 year old male with a history of daytime sleepiness, fatigue, snoring, witnessed apneas, and mouth breathing. The patient is here for assessment of obstructive sleep apnea. The patient endorses being a habitual side sleeper. Pertinent medical history: Anxiety, Atrial fibrillation, Chronic obstructive pulmonary disease, Congestive heart failure, Hyperlipidemia, Hypertension, Pulmonary hypertension Medications: Zoloft, Lipitor, Zestril, Coumadin, Tambocor, Arnoro Ellipta Sleep procedure: PSG unattended Type III, minimum of 4 parameters (52660) Procedure: This study was performed using a Type III ambulatory PSG device and was unattended. The patient was instructed on proper use of the device by a registered biotechnologist. The monitored parameters included heart rate, oxygen saturation, continuous airflow with thermistor and nasal pressure transducer, snoring via nasal pressure transducer, chest and abdominal effort, and body position. RAQUEL definition: Respiratory event index (RAQUEL), calculated as respiratory events x 60 / TRT (total recording time in minutes). Note: the apnea hypopnea index has been replaced by the respiratory event index for home sleep apnea test. Since the home sleep apnea test does not measure sleep, the RAQUEL is most accurate index of respiratory events. The RAQUEL is a surrogate of the AHI per the AASM Manual for Scoring of Sleep and Associated Events version 3. Apnea definition: The peak signal excursions drop by >90% of pre-event baseline using an oronasal thermal sensor (diagnostic study), PAP device flow (titration study) or an alternative apnea sensor (diagnostic study). The duration of the >90% drop in signal excursion is >=10 seconds. Hypopnea definition: The peak signal excursions drop by >= 30% of pre-event baseline using nasal pressure (diagnostic study), PAP device flow (titration study) or an alternative hypopnea sensor (diagnostic study). The duration of the >= 30% drop in signal excursion is >=10 seconds. There is a greater than or equal to 4% oxygen desaturation from pre-event baseline. RESPIRATORY DATA: The study started at 22:21:31 and ended at 07:00:55 and the total recording time was 519 minutes. By convention, sleep is assumed for the whole recording. Snoring was noted. There was a total of 46 respiratory events. Of these events, the total number of apneas was 16 (16 obstructive) and 30 hypopneas. The central apnea index (KEN) was 0.0. The respiratory event index (RAQUEL) was 5.3 events per hour of study time. The mean oxygen saturation during the study was 93.0%, with a minimum oxygen saturation of 87.0%. The patient spent 31.9 minutes at oxygen saturation measured less than 90% (6.8% of recording time) and 7.1 minutes at oxygen saturation measured at or less than 88% (1.4% of recording time). Time RAQUEL/AHI Supine 241.0 min 8.0 Off-Supine 278.5 min 3.0 Total 519.5 min 5.3 ECG DATA: The average heart rate was 80 bpm with a range of 42 bpm to 107 bpm. ICSD DIAGNOSIS: Obstructive Sleep Apnea Syndrome [G47.33] IMPRESSION/RECOMMENDATIO NS: 1. This study confirms a diagnosis of at least mild obstructive sleep apnea. 2. The results of this study may represent an underestimation of the degree of obstructive sleep apnea, especially hypopneas, because of the known limitations of HSAT, such as inability to record arousals because EEG is not recorded. 3. Treatment of mild sleep apnea can include weight loss, positional therapy, treatment of allergies, oral appliance therapy or ENT evaluation of any airway abnormalities. PAP therapy may be considered in patients with documented symptoms of daytime sleepiness, impaired cognition, mood disorder, insomnia, or documented hypertension, ischemic heart disease, or history of stroke. INTERPRETING PHYSICIAN: Pankaj Diego MD I attest that I have performed epoch by epoch review of the entire raw data and find this study to be technically adequate. Report Digitally Signed By: PANKAJ DIEGO MD (01/18/2025 5:31:56 PM) Normal [facility] 01-09-2025 CNPN Telephone (PHAMTE) -------- WILMER MORLEY ([id number]) 1940 M Date Time Provider Department 01/09/25 NAMITA GEE During your visit today, we recorded the following information about you: Namita Gee RPh 01/09/2025 1:53 PM [address] [facility] Anticoagulation Clinic Anticoagulation Episode Summary Anticoagulation Care Providers Provider Role Specialty Phone number Tien Serrano MD Referring Family Medicine [phone] Wilmer Maxwelley is a 84 year old year old male patient being evaluated today for a Telemanagement visit. Patient is currently on the following anticoagulant(s) Warfarin. Labs PT INR (no units) Date Value 09/16/2021 2.9 09/02/2021 3.2 06/06/2021 2.5 biotel INR Home CoaguChek (no units) Date Value 01/09/2025 2.4 12/21/2024 3.0 12/07/2024 3.5 Hemoglobin (g/dL) Date Value 10/27/2024 13.4 03/14/2021 14.8 Hematocrit (%) Date Value 10/27/2024 40.2 03/14/2021 44.9 Platelet Count (k/uL) Date Value 10/27/2024 149 03/14/2021 191 Creatinine (mg/dL) Date Value 12/15/2024 1.65 12/07/2024 1.85 11/07/2024 1.31 03/14/2021 1.34 09/06/2020 1.27 08/06/2020 1.43 Bilirubin, Total (mg/dL) Date Value 10/27/2024 0.6 03/14/2021 1.1 ALT (U/L) Date Value 10/27/2024 20 03/14/2021 32 AST (U/L) Date Value 10/27/2024 19 03/14/2021 30 Estimated Creatinine Clearance: 39.1 mL/min (A) (based on SCr of 1.65 mg/dL (H)). ALLERGIES No Known Allergies 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: Anticoagulation Episode Summary Current INR goal: 2.0-3.0 Assessment: INR result of 2.4 is therapeutic Plan: Current Warfarin Dosing As of 01/09/2025 Full warfarin instructions: 7.5 mg every Mon; 5 mg all other days Sent HowGood message Advised patient to continue current weekly dose as noted above Next INR check due on 01/23/2025 Namita Gee [facility] Clinical Pharmacist, Pharmacy Anticoagulation Clinic Pharmacy Anticoagulation Clinic Pager: [phone]. Allergies As of Date: 01/09/2025 (No Known Allergies) Date Reviewed: 11/14/2024 Reviewed by: Lia Griffin MD - Fully Assessed Reason for Visit: Anticoagulation Telephone Fu [148] Cmt: Home INR Result Prescriptions as of 01/09/2025 - doxazosin (CARDURA) 1 mg tablet Take 1 tablet by mouth daily at bedtime. - atenolol (TENORMIN) 25 mg tablet Take 25 mg by mouth once daily. - flecainide (TAMBOCOR) 100 mg tablet Take 100 mg by mouth two times a day. - sertraline (ZOLOFT) 100 mg tablet Take 1 tablet by mouth once daily. - furosemide (LASIX) 40 mg tablet Take 40 mg by mouth once daily. - umeclidinium-vilanterol (ANORO ELLIPTA) 62.5-25 mcg/actuation inhaler Inhale 1 Inhalation as instructed once daily. - warfarin (COUMADIN) 5 mg tablet 7.5 mg every Mon, Fri; 5 mg all other days - lisinopril (ZESTRIL) 10 mg tablet Take 1 tablet by mouth once daily. - flecainide (TAMBOCOR) 100 mg tablet Take 1 tablet by mouth two times a day. - atorvastatin (LIPITOR) 20 mg tablet Take 1 tablet by mouth once daily. - albuterol HFA (VENTOLIN HFA) 90 mcg/actuation inhaler Inhale 2 Puffs as instructed every 4 hours as needed for wheezing/shortness of breath. - loperamide HCl (IMODIUM) 2 mg tab Take 1 tablet by mouth as needed. - amLODIPine (NORVASC) 5 mg tablet Take 5 mg by mouth once daily. Problem List As Of Date 01/09/2025 Noted Resolved Hyperlipidemia LDL goal <100 [E78.5] 08/26/2006 05/04/2023 GENERALIZED ANXIETY DIS [F41.1] 08/26/2006 ATRIAL FIBRILLATION [I48.91] 01/28/2007 INT HEMORRHOID W/O COMPL [K64.8] Essential hypertension, benign [I10] 02/27/2010 Skin lesion [L98.9] 03/05/2010 12/20/2014 Moderate mitral regurgitation [I34.0] 02/01/2015 Moderate tricuspid regurgitation [I07.1] 02/01/2015 Paroxysmal atrial fibrillation (HCC) [I48.0] 03/19/2015 04/11/2015 long term (current) use of anticoagulants [Z79.*04/11/2015 Episodic lightheadedness [R42] 04/11/2015 01/21/2018 Bilateral edema of lower extremity [R60.0] 04/11/2015 01/10/2016 Venous (peripheral) insufficiency [I87.2] 04/11/2015 History of DVT (deep vein thrombosis) [Z86.718] 02/14/2016 Asymptomatic LV dysfunction [I51.9] 10/28/2016 long term current use of antiarrhythmic medical*10/28/2016 Change in bowel movement [R19.8] 01/21/2018 03/14/2021 Stage 3a chronic kidney disease (HCC) [N18.31] 04/08/2018 Hyperglycemia [R73.9] 03/14/2021 Hypertensive kidney disease with stage 3a chron*11/06/2021 10/31/2022 Hx of skin cancer, basal cell [Z85.828] 11/08/2021 Lightheaded [R42] 02/02/2024 12/07/2024 Benign paroxysmal positional vertigo of right e*02/02/2024 Chronic obstructive pulmonary disease (HCC) [J4*02/12/2024 Pulmonary HTN (HCC) [I27.20] 12/07/2024 Encounter Status:Closed by NAMITA GEE on 01/09/[address] [facility] CNPNon 12-22-2024 CNPN Telephone (PHAMTE) -------- WILMER MORLEY ([id number]) 1940 M Date Time Provider Department 12/22/24 JINNY SHAH During your visit today, we recorded the following information about you: Jinny Shah [facility] 12/22/2024 8:13 AM Signed [facility] Ambulatory Pharm[facility] Anticoagulation Clinic Anticoagulation Episode Summary Anticoagulation Care Providers Provider Role Specialty Phone number Tien Serrano MD Referring Family Medicine [phone] Wilmer Johnsonaffey is a 83 year old year old male patient being evaluated today for a Telemanagement visit. Patient is currently on the following anticoagulant(s) Warfarin. Labs Lab Results Component Value Date INR 3.0 12/21/2024 INR 3.5 (A) 12/07/2024 INR 2.0 11/21/2024 Lab Results Component Value Date HB 13.4 10/27/2024 HB 13.9 11/03/2023 HB 13.9 01/30/2022 Lab Results Component Value Date HCT 40.2 10/27/2024 HCT 42.3 11/03/2023 HCT 43.0 01/30/2022 Lab Results Component Value Date PLT 149 (L) 10/27/2024 PLT 162 11/03/2023 PLT 170 01/30/2022 Lab Results Component Value Date CREAT 1.65 (H) 12/15/2024 CREAT 1.85 (H) 12/07/2024 CREAT 1.31 (H) 11/07/2024 No components found for: TBILI3 Lab Results Component Value Date ALT 20 10/27/2024 ALT 35 11/03/2023 ALT 13 10/27/2022 Lab Results Component Value Date AST 19 10/27/2024 AST 33 11/03/2023 AST 14 10/27/2022 Estimated Creatinine Clearance: 39.7 mL/min (A) (based on SCr of 1.65 mg/dL (H)). ALLERGIES No Known Allergies 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: long term (current) use of anticoagulants History of dvt (deep vein thrombosis) Anticoagulation Episode Summary Current INR goal: 2.0-3.0 Assessment: INR result of 3.0 is therapeutic Plan: Current Warfarin Dosing As of 12/22/2024 Full warfarin instructions: 7.5 mg every Mon; 5 mg all other days Sent HowGood message Advised patient to continue current weekly dose as noted above Next home INR check scheduled on 01/04/2025 Patient advised to call the PAC with any medication changes, bleeding/bruising concerns, recent changes in vitamin k consumption, if any procedures are coming up, if they have been ill or in the hospital, and if they have missed any doses of warfarin. Jinny Shah [facility] Clinical Pharmacist, Pharmacy Anticoagulation Clinic Pharmacy Anticoagulation Clinic Pager: [phone]. Arabella Lopez [facility] 01/05/2025 11:16 AM Signed Patient was due to test INR today. Will continue to monitor for results. Follow up in one week if no results received. Patient's INR Goal range is - 2.0-3.0 PT INR (no units) Date Value 09/16/2021 2.9 09/02/2021 3.2 06/06/2021 2.5 biotel INR Home CoaguChek (no units) Date Value 12/21/2024 3.0 12/07/2024 3.5 11/21/2024 2.0 Patient is in titration phase - No Patient has dosing provided until next INR - Yes Patient is on an injectable anticoagulant - No Arabella Lopez [facility] Allergies As of Date: 12/22/2024 (No Known Allergies) Date Reviewed: 11/14/2024 Reviewed by: Lia Griffin MD - Fully Assessed Reason for Visit: Anticoagulation Telephone Fu [148] Cmt: Home INR Primary Visit Diagnosis:long term (current) use of anticoagulants [Z79.01] Other Visit Diagnosis:History of DVT (deep vein thrombosis) [Z86.718] Prescriptions as of 01/05/2025 - doxazosin (CARDURA) 1 mg tablet Take 1 tablet by mouth daily at bedtime. - atenolol (TENORMIN) 25 mg tablet Take 25 mg by mouth once daily. - flecainide (TAMBOCOR) 100 mg tablet Take 100 mg by mouth two times a day. - sertraline (ZOLOFT) 100 mg tablet Take 1 tablet by mouth once daily. - furosemide (LASIX) 40 mg tablet Take 40 mg by mouth once daily. - umeclidinium-vilanterol (ANORO ELLIPTA) 62.5-25 mcg/actuation inhaler Inhale 1 Inhalation as instructed once daily. - warfarin (COUMADIN) 5 mg tablet 7.5 mg every Mon, Fri; 5 mg all other days - lisinopril (ZESTRIL) 10 mg tablet Take 1 tablet by mouth once daily. - flecainide (TAMBOCOR) 100 mg tablet Take 1 tablet by mouth two times a day. - atorvastatin (LIPITOR) 20 mg tablet Take 1 tablet by mouth once daily. - albuterol HFA (VENTOLIN HFA) 90 mcg/actuation inhaler Inhale 2 Puffs as instructed every 4 hours as needed for wheezing/shortness of breath. - loperamide HCl (IMODIUM) 2 mg tab Take 1 tablet by mouth as needed. - amLODIPine (NORVASC) 5 mg tablet Take 5 mg by mouth once daily. Problem List As Of Date 12/22/2024 Noted Resolved Hyperlipidemia LDL goal <100 [E78.5] 08/26/2006 05/04/2023 GENERALIZED ANXIETY DIS [F41.1] 08/26/2006 ATRIAL FIBRILLATION [I48.91] 01/28/2007 INT HEMORRHOID W/O COMPL [K64.8] Essential hypertension, benign [I10] 02/27/2010 Skin lesion [L98.9] 03/05/2010 12/20/2014 Moderate mitral regurgitation [I34.0] 02/01/2015 Moderate tricuspid regurgitation [I07.1] 02/02/20 (more content not included)... Normal [facility] Basic metabolic 2000 panelOr dered By: Laquita Sainz on 12-15-2024 Anion gap [Moles/Vol] 14 mmol/L 8 - 15 mmol/L [facility] Calcium [Mass/Vol] 9.4 mg/dL 8.5 - 10. 2 mg/dL [facility] Chloride [Moles/Vol] 103 mmol/L 98 - 10 7 mmol/L [facility] CO2 [Moles/Vol] 21 mmol/L Low 22 - 30 mmol/L [facility] Creatinine [Mass/Vol] 1.65 mg/dL High 0.73 - 1.22 mg/dL [facility] GFR/1.73 sq M.predicted among non-blacks MDRD (S/P/Bld) [Vol rate/Area] 41 mL/min/{1.73_m2} Low - PINF [facility] Comment on above: Estimated Glomerular Filtration Rate (eGFR) is calculated using the 2020 CKD-EPI creatinine equation. This equation utilizes serum creatinine, sex, and age as parameters. The creatinine assay has traceable calibration to isotope dilution-mass spectrometry. Refer to KDIGO guidelines for clinical interpretation. In patients with unstable renal function, e.g. those with acute kidney injury, the eGFR may not accurately reflect actual GFR. Glucose [Mass/Vol] 92 mg/dL 74 - 99 mg/dL [facility] Comment on above: The [place] Diab[employer] [place] Association (ADA) provides guidance for cutoff values for fasting glucose and random glucose. The ADA defines fasting as no caloric intake for at least 8 hours. Fasting plasma glucose results between 100 to 125 mg/dL indicate increased risk for diabetes (prediabetes). Fasting plasma glucose results greater than or equal to 126 mg/dL meet the criteria for diagnosis of diabetes. In the absence of unequivocal hyperglycemia, results should be confirmed by repeat testing. In a patient with classic symptoms of hyperglycemia or hyperglycemic crisis, random plasma glucose results greater than or equal to 200 mg/dL meet the criteria for diagnosis of diabetes. Reference: Standards of Medical Care in Diabetes 2016, [place] Diabetes Association. Diabetes Care. 2016.39(Suppl 1). Interpretation and review of laboratory results Abnormal [facility] Potassium [Moles/Vol] 4.2 mmol/L 3.7 - 5.1 mmol/L [facility] Sodium [Moles/Vol] 138 mmol/L 136 - 144 mmol/L [facility] Urea nitrogen [Mass/Vol] 40 mg/dL High 9 - 24 mg/dL [facility] Basic metabolic 2000 panelon 12-15-2024 Anion gap [Moles/Vol] 14 mmol/L Normal 8-15 [facility] Comment on above: Order Comment: Speci men Type: BLOOD SPECIMENOrdering Facility: [facility] Address: [address] [place] [address] Performed By: #### 2 4321-2 ####[facility] [id number] [place] [address] [place] Calcium [Mass/Vol] 9.4 mg/dL Normal 8.5-10.2 [facility] Comment on above: Order Comment: Speci men Type: BLOOD SPECIMENOrdering Facility: [facility] Address: [address] [place] [address] Performed By: #### 2 4321-2 ####[facility]ITAL[facility]LL[facility] [id number] [place] [address] [place] Chloride [Moles/Vol] 103 mmol/L Normal 98-107 [facility] Comment on above: Order Comment: Speci men Type: BLOOD SPECIMENOrdering Facility: [facility] Address: [address] [place] [address] Performed By: #### 2 4321-2 ####[facility]ITALNCLIA [id number] [place] [address] [place] CO2 [Moles/Vol] 21 mmol/L Low 22-30 [facility] Comment on above: Order Comment: Speci men Type: BLOOD SPECIMENOrdering Facility: [facility] Address: [address] [place] [address] Performed By: #### 2 4321-2 ####[facility]ITALNCLI [id number] [place] [address] [place] Creatinine [Mass/Vol] 1.65 mg/dL High 0.73-1.22 [facility] Comment on above: Order Comment: Speci men Type: BLOOD SPECIMENOrdering Facility: [facility] Address: [address] [place] [address] Performed By: #### 2 4321-2 ####[facility] [id number] [address] [place] Creatinine and Glomerular filtration rate.predicted panel (S/P/Bld) 41 mL/min/1.73m??? Low >=60 [facility] Comment on above: Order Comment: Martha murguia Type: BLOOD SPECIMENOrdering Facility: [facility] Address: [address] [place] [address] Result Comment: Mary Jo mated Glomerular Filtration Rate (eGFR) is calculated using the 2020 CKD-EPI creatinine equation. This equation utilizes serum creatinine, sex, and age as parameters. The creatinine assay has traceable calibration to isotope dilution-mass spectrometry. Refer to KDIGO guidelines for clinical interpretation. In patients with unstable renal function, e.g. those with acute kidney injury, the eGFR may not accurately reflect actual GFR. Performed By: #### 2 4321-2 ####[facility] [id number] [place] [address] [place] Glucose [Mass/Vol] 92 mg/dL Normal 74-99 [facility] Comment on above: Order Comment: Martha murguia Type: BLOOD SPECIMENOrdering Facility: [facility] Address: [address] [place] [address] Result Comment: The [place] Diabetes Association (ADA) provides guidance for cutoff values for fasting glucose and random glucose. The ADA defines fasting as no caloric intake for at least 8 hours. Fasting plasma glucose results between 100 to 125 mg/dL indicate increased risk for diabetes (prediabetes). Fasting plasma glucose results greater than or equal to 126 mg/dL meet the criteria for diagnosis of diabetes. In the absence of unequivocal hyperglycemia, results should be confirmed by repeat testing. In a patient with classic symptoms of hyperglycemia or hyperglycemic crisis, random plasma glucose results greater than or equal to 200 mg/dL meet the criteria for diagnosis of diabetes. Reference: Standards of Medical Care in Diabetes 2016, [place] Diabetes Association. Diabetes Care. 2016.39(Suppl 1). Performed By: #### 2 4321-2 ####[facility]ARELLLIA [id number] [place] [address] [place] Potassium [Moles/Vol] 4.2 mmol/L Normal 3.7-5.1 [facility] Comment on above: Order Comment: Martha mugruia Type: BLOOD SPECIMENOrdering Facility: [facility] Address: [address] [place] [address] Performed By: #### 2 4321-2 ####[facility] HOSPITALFay [id number] [place] [address] [place] Sodium [Moles/Vol] 138 mmol/L Normal 136-144 [facility] Comment on above: Order Comment: Martha murguia Type: BLOOD SPECIMENOrdering Facility: [facility] Address: [address] [place] [address] Performed By: #### 2 4321-2 ####[facility] SYSTEMLIFay [id number] [place] [address] [place] Urea nitrogen [Mass/Vol] 40 mg/dL High 9-24 [facility] Comment on above: Order Comment: Martha murguia Type: BLOOD SPECIMENOrdering Facility: [facility] Address: [address] [place] [address] Performed By: #### 2 4321-2 ####[facility] SYSTEMLIA [id number] [place] [address] [place] Basic metabolic 2000 panelon 12-07-2024 Anion gap [Moles/Vol] 13 mmol/L Normal 8-15 [facility] Comment on above: Order Comment: Speci men Type: BLOOD SPECIMENOrdering Facility: [facility] Address: [address] [place] [address] Performed By: #### 2 432-2, ####[facility] LABCLIA [id number] [place] [id number] [place] Calcium [Mass/Vol] 9.0 mg/dL Normal 8.5-10.2 [facility] Comment on above: Order Comment: Speci men Type: BLOOD SPECIMENOrdering Facility: [facility] Address: [address] [place] [address] Performed By: #### 2 4320-2, ####[facility] LABCLIA [id number] [place] [address] [place] Chloride [Moles/Vol] 104 mmol/L Normal 98-107 [facility] Comment on above: Order Comment: Speci men Type: BLOOD SPECIMENOrdering Facility: [facility] Address: [address] [place] [address] Performed By: #### 2 2, ####[facility] LABCLIA [id number] [place] [id number] [place] CO2 [Moles/Vol] 25 mmol/L Normal 22-30 [facility] Comment on above: Order Comment: Speci men Type: BLOOD SPECIMENOrdering Facility: [facility] Address: [address] [place], [place] [address] Performed By: #### 2 1-2, ####[facility] LABCLIA [id number] [place] [id number] [place] Creatinine [Mass/Vol] 1.85 mg/dL High 0.73-1.22 [facility] Comment on above: Order Comment: Speci men Type: BLOOD SPECIMENOrdering Facility: [facility] Address: [address] [place] [address] Performed By: #### 2 4321-2, ####[facility] LABIA [id number] [place] [address] [place] Creatinine and Glomerular filtration rate.predicted panel (S/P/Bld) 36 mL/min/1.73m??? Low >=60 [facility] Comment on above: Order Comment: Martha murguia Type: BLOOD SPECIMENOrdering Facility: [facility] Address: [address] [place] [address] Result Comment: Mary Jo mated Glomerular Filtration Rate (eGFR) is calculated using the 2020 CKD-EPI creatinine equation. This equation utilizes serum creatinine, sex, and age as parameters. The creatinine assay has traceable calibration to isotope dilution-mass spectrometry. Refer to KDIGO guidelines for clinical interpretation. In patients with unstable renal function, e.g. those with acute kidney injury, the eGFR may not accurately reflect actual GFR. Performed By: #### 2 4321-2, ####[facility] LABIA [id number] [place] [address] [place] Glucose [Mass/Vol] 153 mg/dL High 74-99 [facility] Comment on above: Order Comment: Martha murguia Type: BLOOD SPECIMENOrdering Facility: [facility] Address: [address] [place] [address] Result Comment: The [place] Diabetes Association (ADA) provides guidance for cutoff values for fasting glucose and random glucose. The ADA defines fasting as no caloric intake for at least 8 hours. Fasting plasma glucose results between 100 to 125 mg/dL indicate increased risk for diabetes (prediabetes). Fasting plasma glucose results greater than or equal to 126 mg/dL meet the criteria for diagnosis of diabetes. In the absence of unequivocal hyperglycemia, results should be confirmed by repeat testing. In a patient with classic symptoms of hyperglycemia or hyperglycemic crisis, random plasma glucose results greater than or equal to 200 mg/dL meet the criteria for diagnosis of diabetes. Reference: Standards of Medical Care in Diabetes 2016, [place] Diabetes Association. Diabetes Care. 2016.39(Suppl 1). Performed By: #### 2 432-2, ####[facility] LABIA [id number] [address] [place] [address] [place] Potassium [Moles/Vol] 3.9 mmol/L Normal 3.7-5.1 [facility] Comment on above: Order Comment: Speci men Type: BLOOD SPECIMENOrdering Facility: [facility] Address: [address] [place] [address] Performed By: #### 2 4321-2, ####[facility] LABIA [id number] [address] [address] [place] Sodium [Moles/Vol] 142 mmol/L Normal 136-144 [facility] Comment on above: Order Comment: Speci men Type: BLOOD SPECIMENOrdering Facility: [facility] Address: [address] [place] [address] Performed By: #### 2 4321-2, ####[facility] LABIA [id number] [address] [address] [place] Urea nitrogen [Mass/Vol] 46 mg/dL High 9-24 [facility] Comment on above: Order Comment: Speci men Type: BLOOD SPECIMENOrdering Facility: [facility] Address: [address] [place] [address] Performed By: #### 2 4321-2, ####[facility] LABIA [id number] [address] [address] [place] CNOVon 12-07-2024 CNOV Office Visit (FAMPWS ) -------- WILMER MORLEY ([id number]) 1940 Date Time Provider Department 12/07/24 9:00 AM TIEN SERRANOWS During your visit today, we recorded the following information about you: Pulse Blood pressure Weight 49/minute 118/58 93.9 kg Tien Serrano MD 12/07/2024 9:31 AM Signed - Take atenolol exactly as prescribed by your slipman and do not restart Norvasc. - Continue lasix 40 mg by mouth once daily as started last week. - Get blood drawn to check your kidney function and electrolytes (sodium, potassium, magnesium) following the start of lasix. - Wear daily compression socks (for example, [place] or similar) to help prevent leg swelling and improve circulation. - Schedule and attend a vestibular therapy refresher to work on balance; do the home exercises as instructed. - Complete a home sleep study to evaluate your sleep apnea and mail back the equipment when finished. - Continue your breathing medications as adjusted by Dr. Griffin and report any new wheezing or shortness of breath. - Monitor your blood pressure and heart rate at home regularly and bring your readings to your next visits. - Plan to return here in about four months for follow-up and keep routine cardiology appointments with Dr. Frank. Tien Serrano MD 12/07/2024 12:29 PM Signed Wilmer Morley is an 83-year-old male with a history of AFib, presenting for follow-up on dyspnea and lightheadedness. HPI Dyspnea: - Improvement in dyspnea since last visit. - Nocturnal wheezing resolved after medication adjustments by Dr. Griffin. - Denies current wheezing or lower extremity edema. Lightheadedness: - Chronic lightheadedness described as feeling teetery and like I'm going to pass out, x years. Dates back in chart nearly two decades. - Symptoms have increased in frequency and severity, limiting outdoor activities. - Aggravated by head movements, particularly up and down. - Denies actual syncope. - Previous evaluations by ENT and cardiology; underwent vestibular therapy with some improvement. - Recent echocardiogram by Dr. Frank showed no significant changes over the past three years. - Recent medication adjustments include discontinuation of Norvasc and initiation of atenolol, with no improvement in lightheadedness. - Blood pressure readings under 120/50-60 mmHg; heart rate in the 40s. - Denies current alcohol consumption; stopped drinking a month ago. Atrial Fibrillation: - History of AFib; recent discussion with Dr. Frank about potential ablation. - Dr. Frank noted AFib was okay and left ventricular function was okay. - Recent heart rate was 80 bpm, leading to medication adjustments. - Wilmer reports feeling tired and lacking energy. - Denies bleeding or bruising issues. - Denies increased thirst or polyuria. - Denies hearing problems. Chronic Kidney Disease: - Stage 3 CKD. - Recent initiation of Lasix 40 mg daily, x1 week. - No recent blood work to monitor kidney function or electrolytes since starting Lasix. MEDICATIONS: Current Outpatient Medications Medication Sig atenolol (TENORMIN) 25 mg tablet Take 25 mg by mouth once daily. flecainide (TAMBOCOR) 100 mg tablet Take 100 mg by mouth two times a day. sertraline (ZOLOFT) 100 mg tablet Take 1 tablet by mouth once daily. furosemide (LASIX) 40 mg tablet Take 40 mg by mouth once daily. umeclidinium-vilanterol (ANORO ELLIPTA) 62.5-25 mcg/actuation inhaler Inhale 1 Inhalation as instructed once daily. warfarin (COUMADIN) 5 mg tablet 7.5 mg every Mon, Fri; 5 mg all other days lisinopril (ZESTRIL) 10 mg tablet Take 1 tablet by mouth once daily. atorvastatin (LIPITOR) 20 mg tablet Take 1 tablet by mouth once daily. doxazosin (CARDURA) 1 mg tablet Take 1 tablet by mouth daily at bedtime. flecainide (TAMBOCOR) 100 mg tablet Take 1 tablet by mouth two times a day. (Patient taking differently: Take 100 mg by mouth once daily. Patient on Taper dose. Last dose is 11/16/24) albuterol HFA (VENTOLIN HFA) 90 mcg/actuation inhaler Inhale 2 Puffs as instructed every 4 hours as needed for wheezing/shortness of breath. loperamide HCl (IMODIUM) 2 mg tab Take 1 tablet by mouth as needed. amLODIPine (NORVASC) 5 mg tablet Take 5 mg by mouth once daily. (Patient not taking: Reported on 12/07/2024) No current facility-administered medications for this visit. 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 Benign neoplasm of colon CKD (chronic kidney disease), stage III (HCC) 04/08/2018 COPD (chronic obstructive pulmonary disease) (HCC) Diverticulosis of colon (without mention of hemorrhage) DVT (deep venous thrombosis) (HCC) Essential hypertension, benign 02/27/2010 Facial basal cell cancer 2009 Internal h (more content not included)... Normal [facility] CNPNon 12-07-2024 CNPN Telephone (PHAMTE) -------- WILMER MORLEY ([id number]) 1940 M Date Time Provider Department 12/07/24 GHAZAL BAILEY During your visit today, we recorded the following information about you: Ghazal Bailey RPh 12/07/2024 5:08 PM Signed [facility] Ambulatory [facility] Anticoagulation Clinic Anticoagulation Episode Summary Anticoagulation Care Providers Provider Role Specialty Phone number Tien Serrano MD Referring Family Medicine [phone] Wilmer Maxwelley is a 83 year old year old male patient being evaluated today for a Telemanagement visit. Patient is currently on the following anticoagulant(s) Warfarin. Labs Lab Results Component Value Date INR 3.5 (A) 12/07/2024 INR 2.0 11/21/2024 INR 2.9 11/05/2024 Lab Results Component Value Date HB 13.4 10/27/2024 HB 13.9 11/03/2023 HB 13.9 01/30/2022 Lab Results Component Value Date HCT 40.2 10/27/2024 HCT 42.3 11/03/2023 HCT 43.0 01/30/2022 Lab Results Component Value Date PLT 149 (L) 10/27/2024 PLT 162 11/03/2023 PLT 170 01/30/2022 Lab Results Component Value Date CREAT 1.31 (H) 11/07/2024 CREAT 1.55 (H) 11/01/2024 CREAT 1.43 (H) 10/27/2024 No components found for: TBILI3 Lab Results Component Value Date ALT 20 10/27/2024 ALT 35 11/03/2023 ALT 13 10/27/2022 Lab Results Component Value Date AST 19 10/27/2024 AST 33 11/03/2023 AST 14 10/27/2022 Estimated Creatinine Clearance: 50.1 mL/min (A) (based on SCr of 1.31 mg/dL (H)). ALLERGIES No Known Allergies 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: long term (current) use of anticoagulants Atrial fibrillation, unspecified type (hcc) History of dvt (deep vein thrombosis) Anticoagulation Episode Summary Current INR goal: 2.0-3.0 Assessment: INR result of 3.5 is SUPRAtherapeutic due to: unsure - possibly edema. He was having some edema and started atenolol and lasix. He d/c amlodipine. He hasn't had as much vit K lately but will start having his normal amount. Plan: Current Warfarin Dosing As of 12/07/2024 Full warfarin instructions: 7.5 mg every Mon; 5 mg all other days Called and spoke to patient/caregiver Advised patient to decrease dose for 1 day only then resume weekly regimen Next point of care INR check scheduled on 12/14/2024 Patient verbalizes understanding of the plan. Patient denies need for refills. Patient advised to call the PAC with any medication changes, bleeding/bruising concerns, recent changes in vitamin k consumption, if any procedures are coming up, if they have been ill or in the hospital, and if they have missed any doses of warfarin. Ghazal Bailey [facility] Clinical Pharmacist, Pharmacy Anticoagulation Clinic Pharmacy Anticoagulation Clinic Pager: [phone]. Allergies As of Date: 12/07/2024 (No Known Allergies) Date Reviewed: 11/14/2024 Reviewed by: Lia Griffin MD - Fully Assessed Reason for Visit: Anticoagulation Telephone Fu [148] Cmt: Home INR result Primary Visit Diagnosis:long term (current) use of anticoagulants [Z79.01] Other Visit Diagnoses:ATRIAL FIBRILLATION [I48.91] History of DVT (deep vein thrombosis) [Z86.718] Prescriptions as of 12/07/2024 - atenolol (TENORMIN) 25 mg tablet Take 25 mg by mouth once daily. - flecainide (TAMBOCOR) 100 mg tablet Take 100 mg by mouth two times a day. - sertraline (ZOLOFT) 100 mg tablet Take 1 tablet by mouth once daily. - furosemide (LASIX) 40 mg tablet Take 40 mg by mouth once daily. - umeclidinium-vilanterol (ANORO ELLIPTA) 62.5-25 mcg/actuation inhaler Inhale 1 Inhalation as instructed once daily. - warfarin (COUMADIN) 5 mg tablet 7.5 mg every Mon, Fri; 5 mg all other days - lisinopril (ZESTRIL) 10 mg tablet Take 1 tablet by mouth once daily. - flecainide (TAMBOCOR) 100 mg tablet Take 1 tablet by mouth two times a day. - atorvastatin (LIPITOR) 20 mg tablet Take 1 tablet by mouth once daily. - albuterol HFA (VENTOLIN HFA) 90 mcg/actuation inhaler Inhale 2 Puffs as instructed every 4 hours as needed for wheezing/shortness of breath. - loperamide HCl (IMODIUM) 2 mg tab Take 1 tablet by mouth as needed. - doxazosin (CARDURA) 1 mg tablet Take 1 tablet by mouth daily at bedtime. - amLODIPine (NORVASC) 5 mg tablet Take 5 mg by mouth once daily. 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 Normal [facility] Magnesium SerPl-mCncon 12-07 Magnesium [Mass/Vol] 1.7 mg/dL Normal 1.7-2.3 [facility] Comment on above: Order Comment: Speci men Type: BLOOD SPECIMENOrdering Facility: [facility] Address: [address] [place] [address] Performed By: #### 2 4321-2, 48221-2 ####[facility] LABCLIA [id number] [address] OF [facility] CNPNon 11-22-2024 CNPN Telephone (PHAMTE) -------- WILMER MORLEY ([id number]) 1940 M Date Time Provider Department 11/22/24 ARABELLA LOPEZ During your visit today, we recorded the following information about you: Arabella Lopez [facility] 11/22/2024 8:38 AM Signed [facility] Ambulatory Pharmacy Anticoagulation Clinic Anticoagulation Episode Summary Anticoagulation Care Providers Provider Role Specialty Phone number Tien Serrano MD Referring Family Medicine [phone] Wilmer Johnsonaffey is a 83 year old year old male patient being evaluated today for a Telemanagement visit. Patient is currently on the following anticoagulant(s) Warfarin. Labs Lab Results Component Value Date INR 2.0 11/21/2024 INR 2.9 11/05/2024 INR 2.7 10/20/2024 Lab Results Component Value Date HB 13.4 10/27/2024 HB 13.9 11/03/2023 HB 13.9 01/30/2022 Lab Results Component Value Date HCT 40.2 10/27/2024 HCT 42.3 11/03/2023 HCT 43.0 01/30/2022 Lab Results Component Value Date PLT 149 (L) 10/27/2024 PLT 162 11/03/2023 PLT 170 01/30/2022 Lab Results Component Value Date CREAT 1.31 (H) 11/07/2024 CREAT 1.55 (H) 11/01/2024 CREAT 1.43 (H) 10/27/2024 No components found for: TBILI3 Lab Results Component Value Date ALT 20 10/27/2024 ALT 35 11/03/2023 ALT 13 10/27/2022 Lab Results Component Value Date AST 19 10/27/2024 AST 33 11/03/2023 AST 14 10/27/2022 Estimated Creatinine Clearance: 49.6 mL/min (A) (based on SCr of 1.31 mg/dL (H)). ALLERGIES No Known Allergies 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: Anticoagulation Episode Summary Current INR goal: 2.0-3.0 Assessment: INR result of 2.0 is therapeutic Plan: Current Warfarin Dosing As of 11/22/2024 Full warfarin instructions: 7.5 mg every Mon; 5 mg all other days Sent HowGood message Advised patient to continue current weekly dose as noted above Next home INR check scheduled on 12/06/2024 Patient advised to call the PAC with any medication changes, bleeding/bruising concerns, recent changes in vitamin k consumption, if any procedures are coming up, if they have been ill or in the hospital, and if they have missed any doses of warfarin. Arabella Lopez RPh Clinical Pharmacist, Pharmacy Anticoagulation Clinic Pharmacy Anticoagulation Clinic Pager: [phone]. Arabella Lopez RPh 12/06/2024 11:21 AM Signed Patient was due to test INR today. Will continue to monitor for results. Follow up in one week if no results received. Patient's INR Goal range is - 2.0-3.0 PT INR (no units) Date Value 09/16/2021 2.9 09/02/2021 3.2 06/06/2021 2.5 biotel INR Home CoaguChek (no units) Date Value 11/21/2024 2.0 11/05/2024 2.9 10/20/2024 2.7 Patient is in titration phase - No Patient has dosing provided until next INR - Yes Patient is on an injectable anticoagulant - No Arabella Lopez RPh Allergies As of Date: 11/22/2024 (No Known Allergies) Date Reviewed: 11/14/2024 Reviewed by: Lia Griffin MD - Fully Assessed Reason for Visit: Anticoagulation Telephone Fu [148] Cmt: Home INR result Prescriptions as of 12/06/2024 - sertraline (ZOLOFT) 100 mg tablet Take 1 tablet by mouth once daily. - furosemide (LASIX) 40 mg tablet Take 40 mg by mouth once daily. - umeclidinium-vilanterol (ANORO ELLIPTA) 62.5-25 mcg/actuation inhaler Inhale 1 Inhalation as instructed once daily. - warfarin (COUMADIN) 5 mg tablet 7.5 mg every Mon, Fri; 5 mg all other days - lisinopril (ZESTRIL) 10 mg tablet Take 1 tablet by mouth once daily. - flecainide (TAMBOCOR) 100 mg tablet Take 1 tablet by mouth two times a day. - atorvastatin (LIPITOR) 20 mg tablet Take 1 tablet by mouth once daily. - albuterol HFA (VENTOLIN HFA) 90 mcg/actuation inhaler Inhale 2 Puffs as instructed every 4 hours as needed for wheezing/shortness of breath. - loperamide HCl (IMODIUM) 2 mg tab Take 1 tablet by mouth as needed. - doxazosin (CARDURA) 1 mg tablet Take 1 tablet by mouth daily at bedtime. - amLODIPine (NORVASC) 5 mg tablet Take 5 mg by mouth once daily. Problem List As Of Date 11/22/2024 Noted Resolved Hyperlipidemia LDL goal <100 [E78.5] 08/26/2006 05/04/2023 GENERALIZED ANXIETY DIS [F41.1] 08/26/2006 ATRIAL FIBRILLATION [I48.91] 01/28/2007 INT HEMORRHOID W/O COMPL [K64.8] Essential hypertension, benign [I10] 02/27/2010 Skin lesion [L98.9] 03/05/2010 12/20/2014 Moderate mitral regurgitation [I34.0] 02/01/2015 Moderate tricuspid regurgitation [I07.1] 02/01/2015 Paroxysmal atrial fibrillation (HCC) [I48.0] 03/19/2015 04/11/2015 USP (current) use of anticoagulants [Z79.*04/11/2015 Episodic lightheadedness [R42] 04/11/2015 01/21/2018 Bilateral edema of lower extremity [R60.0] 04/11/2015 01/10/2016 Venous (peripheral) insufficiency [I87.2] 04/11/2015 History of DVT (deep vein thrombosis) [Z86.718] 02/14/2016 Asymptomatic LV dysfunction [I (more content not included)... Normal [facility] CNOVon 11-14-2024 CNOV Office Visit (PULMWS ) -------- WILMER MORLEY ([id number]) 1940 M Date Time Provider Department 11/14/24 8:45 AM LIA GRIFFIN PULMWS During your visit today, we recorded the following information about you: Pulse Respiration Blood pressure Weight 81/minute 17/minute 136/74 92.3 kg Lia Griffin MD 11/14/2024 10:27 AM Signed . Respiratory [place] Note Patient name: Wilmer Morley PCP: Tien Serrano MD Referring Physician: Same Consultation requested by Dr. Serrano for an opinion regarding COPD. My final recommendations will be communicated back to the requesting physician by way of shared Medical record or letter to requesting physician via US mail. CC: Dyspnea HPI: Wilmer Morley 83 year old male former 25 pack year smoker, quitting in 2009 with PMH significant for CKD, AF, HTN, HLD being referred for evaluation COPD. Two year history of progressive dyspnea on exertion. Has to stop and rest with activities of daily living. He has had rather persistent wheezing. Rare cough with difficulty expectorating phlegm but when he is able to produce sputum it is clear to yellow in color. No chest pain. No peripheral edema. Recently started on Spiriva which does seem to help with wheezing and mild improvement in his shortness of breath. No history of recurrent bronchitis or pneumonia. No prior history of asthma. No nocturnal awakenings. DATA: COPD Assessment Test I never cough 0 1 2 3 4 5 I cough all the time; Score 2 I have no phlegm 0 1 2 3 4 5 My chest is completely full of phlegm; Score 3 My chest does not feel tight at all 0 1 2 3 4 5 My chest chest feels very tight; Score 1 When I walk up a hill or one flight of stairs I am not breathless 0 1 2 3 4 5 When I walk up a hill or one flight or stairs I am very breathless; Score 5 I am not limited doing any activities at home 0 1 2 3 4 5 I am very limited doing activities at home; Score 3 I am confident leaving my home despite my lung condition 0 1 2 3 4 5 I am not at all confident leaving my home because of my lung condition; Score 2 I sleep soundly 0 1 2 3 4 5 don't sleep soundly because of my lungs; Score 0 I have lots of energy 0 1 2 3 4 5 I have no energy at all; Score 3 Total Score: 19 PFT 2023: Pulmonary function test show moderate obstruction with marked improvement postbronchodilator, air trapping and hyperinflation Labs: Component Ref Range AND Units 8 d ago 3 yr ago NT Pro BNP <450 pg/mL 1,885 High 1,805 High Component Ref Range AND Units 8 d ago (10/27/24) WBC 3.70 - 11.00 k/uL 6.65 RBC 4.20 - 6.00 m/uL 4.15 Low Hemoglobin 13.0 - 17.0 g/dL 13.4 Hematocrit 39.0 - 51.0 % 40.2 MCV 80.0 - 100.0 fL 96.9 MCH 26.0 - 34.0 pg 32.3 MCHC 30.5 - 36.0 g/dL 33.3 RDW-CV 11.5 - 15.0 % 13.1 Platelet Count 150 - 400 k/uL 149 Low MPV 9.0 - 12.7 fL 9.4 Neutrophils % % 64.6 Abs Neut 1.45 - 7.50 k/uL 4.30 Lymphocytes % % 20.9 Abs Lymph 1.00 - 4.00 k/uL 1.39 Monocytes % % 9.3 Abs [place] <0.87 k/uL 0.62 Eosinophils % % 4.4 Abs Eosin <0.46 k/uL 0.29 Basophils % % 0.5 Abs Baso <0.11 k/uL 0.03 Immature Granulocytes % % 0.3 Abs Immature Gran <0.10 k/uL <0.03 Imaging / Diagnostic Studies: DATE OF EXAM: Oct 11 2024 11:07AM WRX [id number] - XR CHEST 2V FRONTAL/LAT / EXAM DATE/TIME: 10/11/2024 11:07 AM COMPARISON: Chest x-ray of 02/10/2024 RESULT: Lines, tubes, and devices: None. Lungs and pleura: No consolidation. No lung mass. No pleural effusion. No pneumothorax. Cardiomediastinal silhouette: Normal cardiomediastinal silhouette. Bones and soft tissues: Stable degenerative changes of the mid to lower thoracic spine. ECHO 2022: Conclusion Normal RV/LV size and function and ejection fraction 65%. Mild-moderate 2+ mitral and tricuspid regurgitation with moderate pulmonary hypertension at 51 mmHg. Trace pericardial effusion. Compared to study 11/2019, no significant changes. Left Ventricle The left ventricle is normal size. Left ventricular systolic function is normal. There is normal left ventricular wall thickness. There is normal LV segmental wall motion. Left ventricular filling pattern is normal for age. LVEF is 65%. Right Ventricle The right ventricle is normal size. The right ventricular systolic function is normal. Atria Left atrium is moderately dilated. Right atrium is moderately dilated. Aortic Valve Mild aortic valve sclerosis. There is no aortic valvular stenosis. No aortic regurgitation is present. Mitral Valve The mitral valve is normal in structure. Mild-moderate mitral regurgitation. Tricuspid Valve The tricuspid valve is normal in structure. Mild The RVSP is 50-55 mmHg.-moderate tricuspid regurgitation. Pulmonic Valve The pulmonary valve is normal in structure. Great Vessels The aortic r (more content not included)... Normal [facility] Chris 11-08-2024 [facility] -------- WILMER MORLEY ([id number]) 1940 Date Time Provider Department 11/08/24 TIEN SERRANO [facility] During your visit today, we recorded the following information about you: Tien Serrano MD 11/08/2024 8:34 AM Signed His labs are stable. His bnp is up a little higher. Verify with him but I think he is seeing his slipman, Dr Frank in [place] this week? If he is, lets fax to him. Verify how feeling, any worsening swelling or shortness of breath? Angie Jean MA 11/08/2024 12:32 PM Signed Message left for return call. BRIAN Murphy Beth, LPN 11/08/2024 2:27 PM Signed Patient returned call and went over results, notes from Dr Serrano with understanding. Patient said yes, appt is 11/09/2024 at 9 am. He is feeling the same with the shortness of breath, no increase in swelling. His weight is stable within a pound. Printed lab results and faxed to [phone] as requested. Tien Serrano MD 11/08/2024 2:28 PM Signed Ok. Can take a lasix today and keep appt with Dr Frank in tomorrow. Let me know what he says Stephany Stein MA 11/08/2024 2:46 PM Signed Patient notified of provider plan and is agreeable. Stephany Stein MA November 08, 2024 2:45 PM Allergies As of Date: 11/08/2024 (No Known Allergies) Date Reviewed: 11/02/2024 Reviewed by: Angie Jean MA - Fully Assessed Reason for Visit: Results [95] Prescriptions as of 11/08/2024 - warfarin (COUMADIN) 5 mg tablet 7.5 mg every Mon, Fri; 5 mg all other days - lisinopril (ZESTRIL) 10 mg tablet Take 1 tablet by mouth once daily. - flecainide (TAMBOCOR) 100 mg tablet Take 1 tablet by mouth two times a day. - atorvastatin (LIPITOR) 20 mg tablet Take 1 tablet by mouth once daily. - sertraline (ZOLOFT) 100 mg tablet Take 1 tablet by mouth once daily. - tiotropium (SPIRIVA WITH HANDIHALER) 18 mcg inhalation capsule Inhale 1 capsule as instructed once daily. Use with handihaler. - albuterol HFA (VENTOLIN HFA) 90 mcg/actuation inhaler Inhale 2 Puffs as instructed every 4 hours as needed for wheezing/shortness of breath. - loperamide HCl (IMODIUM) 2 mg tab Take 1 tablet by mouth as needed. - doxazosin (CARDURA) 1 mg tablet Take 1 tablet by mouth daily at bedtime. - amLODIPine (NORVASC) 5 mg tablet Take 5 mg by mouth once daily. Problem List As Of Date 11/08/2024 Noted Resolved Hyperlipidemia LDL goal <100 [E78.5] 08/26/2006 05/04/2023 GENERALIZED ANXIETY DIS [F41.1] 08/26/2006 ATRIAL FIBRILLATION [I48.91] 01/28/2007 INT HEMORRHOID W/O COMPL [K64.8] Essential hypertension, benign [I10] 02/27/2010 Skin lesion [L98.9] 03/05/2010 12/20/2014 Moderate mitral regurgitation [I34.0] 02/01/2015 Moderate tricuspid regurgitation [I07.1] 02/01/2015 Paroxysmal atrial fibrillation (HCC) [I48.0] 03/19/2015 04/11/2015 USP (current) use of anticoagulants [Z79.*04/11/2015 Episodic lightheadedness [R42] 04/11/2015 01/21/2018 Bilateral edema of lower extremity [R60.0] 04/11/2015 01/10/2016 Venous (peripheral) insufficiency [I87.2] 04/11/2015 History of DVT (deep vein thrombosis) [Z86.718] 02/14/2016 Asymptomatic LV dysfunction [I51.9] 10/28/2016 long term current use of antiarrhythmic medical*10/28/2016 Change in bowel movement [R19.8] 01/21/2018 03/14/2021 Stage 3a chronic kidney disease (HCC) [N18.31] 04/08/2018 Hyperglycemia [R73.9] 03/14/2021 Hypertensive kidney disease with stage 3a chron*11/06/2021 10/31/2022 Hx of skin cancer, basal cell [Z85.828] 11/08/2021 Lightheaded [R42] 02/02/2024 Benign paroxysmal positional vertigo of right e*02/02/2024 Chronic obstructive pulmonary disease (HCC) [J4*02/12/2024 Encounter Status:Closed by STEPHANY STEIN on 11/08/[address] [facility] Basic metabolic 2000 panelon 11-07-2024 Anion gap [Moles/Vol] 13 mmol/L Normal 8-15 [facility] Comment on above: Order Comment: Speci men Type: BLOOD SPECIMENOrdering Facility: [facility] Address: [address] [place] [address] Performed By: #### 1 9123-9, 77052-5 ####[facility] MILLWNCLIA [id number] [place] [address] [place] Calcium [Mass/Vol] 9.4 mg/dL Normal 8.5-10.2 [facility] Comment on above: Order Comment: Speci men Type: BLOOD SPECIMENOrdering Facility: [facility] Address: [address] [place] [address] Performed By: #### 1 9123-9, 66584-4 ####[facility] MILLWNCLIA [id number] [place] [address] [place] Chloride [Moles/Vol] 103 mmol/L Normal 98-107 [facility] Comment on above: Order Comment: Speci men Type: BLOOD SPECIMENOrdering Facility: [facility] Address: [address] [place] [address] Performed By: #### 1 9123-9, 65713-6 ####[facility] MILLTOWNCLIA [id number] [place] [address] [place] CO2 [Moles/Vol] 22 mmol/L Normal 22-30 [facility] Comment on above: Order Comment: Speci men Type: BLOOD SPECIMENOrdering Facility: [facility] Address: [address] [place] [address] Performed By: #### 1 9123-9, 54108-6 ####[facility] SE[facility] MILLTOWNCLIA [id number] [place] [address] [place] Creatinine [Mass/Vol] 1.31 mg/dL High 0.73-1.22 [facility] Comment on above: Order Comment: Martha murguia Type: BLOOD SPECIMENOrdering Facility: [facility] Address: [address] [place] [address] Performed By: #### 1 9123-9, 12458-0 ####[facility] [id number] [place] [address] [place] Creatinine and Glomerular filtration rate.predicted panel (S/P/Bld) 54 mL/min/1.73m??? Low >=60 [facility] Comment on above: Order Comment: Martha murguia Type: BLOOD SPECIMENOrdering Facility: [facility] Address: [address] [place] [address] Result Comment: Mary Jo mated Glomerular Filtration Rate (eGFR) is calculated using the 2020 CKD-EPI creatinine equation. This equation utilizes serum creatinine, sex, and age as parameters. The creatinine assay has traceable calibration to isotope dilution-mass spectrometry. Refer to KDIGO guidelines for clinical interpretation. In patients with unstable renal function, e.g. those with acute kidney injury, the eGFR may not accurately reflect actual GFR. Performed By: #### 1 9123-9, 84426-5 ####[facility] [id number] [place] [address] [place] Glucose [Mass/Vol] 102 mg/dL High 74-99 [facility] Comment on above: Order Comment: Martha murguia Type: BLOOD SPECIMENOrdering Facility: [facility] Address: [address] [place] [address] Result Comment: The [place] Diabetes Association (ADA) provides guidance for cutoff values for fasting glucose and random glucose. The ADA defines fasting as no caloric intake for at least 8 hours. Fasting plasma glucose results between 100 to 125 mg/dL indicate increased risk for diabetes (prediabetes). Fasting plasma glucose results greater than or equal to 126 mg/dL meet the criteria for diagnosis of diabetes. In the absence of unequivocal hyperglycemia, results should be confirmed by repeat testing. In a patient with classic symptoms of hyperglycemia or hyperglycemic crisis, random plasma glucose results greater than or equal to 200 mg/dL meet the criteria for diagnosis of diabetes. Reference: Standards of Medical Care in Diabetes 2016, [place] [employer] Association. Diabetes Care. 2016.39(Suppl 1). Performed By: #### 1 9123-9, 73497-7 ####[facility] SHARIGEETHA [id number] [place] [address] [place] Potassium [Moles/Vol] 4.4 mmol/L Normal 3.7-5.1 [facility] Comment on above: Order Comment: Martha murguia Type: BLOOD SPECIMENOrdering Facility: [facility] Address: [address] [place] [address] Performed By: #### 1 9123-9, 98147-2 ####[facility] [id number] [place] [address] [place] Sodium [Moles/Vol] 138 mmol/L Normal 136-144 [facility] Comment on above: Order Comment: Martha murguia Type: BLOOD SPECIMENOrdering Facility: [facility] Address: [address] [place] [address] Performed By: #### 1 9123-9, 00930-7 ####[facility] [id number] [place] [address] [place] Urea nitrogen [Mass/Vol] 32 mg/dL High 9-24 [facility] Comment on above: Order Comment: Martha murguia Type: BLOOD SPECIMENOrdering Facility: [facility] Address: [address] [place] [address] Performed By: #### 1 9123-9, 46265-3 ####[facility]ITAL[facility]CLIA [id number] [place] [address] [place] CNPEufemia 11-07-2024 CNPN Telephone ([facility]) -------- WILMER MORLEY ([id number]) 1940 M Date Time Provider Department 11/07/24 NAMITA GEE During your visit today, we recorded the following information about you: Namita Gee [facility] 11/07/2024 8:26 AM Signed [facility] Ambulatory Pharmacy Anticoagulation Clinic Anticoagulation Episode Summary Anticoagulation Care Providers Provider Role Specialty Phone number Tien Serrano MD Referring Family Medicine [phone] Wilmer Morley is a 83 year old year old male patient being evaluated today for a Telemanagement visit. Patient is currently on the following anticoagulant(s) Warfarin. Labs PT INR (no units) Date Value 09/16/2021 2.9 09/02/2021 3.2 06/06/2021 2.5 biotel INR Home CoaguChek (no units) Date Value 11/05/2024 2.9 10/20/2024 2.7 10/08/2024 1.6 Hemoglobin (g/dL) Date Value 10/27/2024 13.4 03/14/2021 14.8 Hematocrit (%) Date Value 10/27/2024 40.2 03/14/2021 44.9 Platelet Count (k/uL) Date Value 10/27/2024 149 03/14/2021 191 Creatinine (mg/dL) Date Value 11/01/2024 1.55 10/27/2024 1.43 12/28/2023 1.09 03/14/2021 1.34 09/06/2020 1.27 08/06/2020 1.43 Bilirubin, Total (mg/dL) Date Value 10/27/2024 0.6 03/14/2021 1.1 ALT (U/L) Date Value 10/27/2024 20 03/14/2021 32 AST (U/L) Date Value 10/27/2024 19 03/14/2021 30 Estimated Creatinine Clearance: 42.3 mL/min (A) (based on SCr of 1.55 mg/dL (H)). ALLERGIES No Known Allergies 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: Anticoagulation Episode Summary Current INR goal: 2.0-3.0 Assessment: INR result of 2.9 is therapeutic Plan: Current Warfarin Dosing As of 11/07/2024 Full warfarin instructions: 7.5 mg every Mon; 5 mg all other days Sent HowGood message Advised patient to continue current weekly dose as noted above Next INR check due on 11/21/2024 Namita Gee [facility] Clinical Pharmacist, Pharmacy Anticoagulation Clinic Pharmacy Anticoagulation Clinic Pager: [phone]. Namita Gee RPh 11/21/2024 3:54 PM Signed Patient was due to test INR today. Will continue to monitor for results. Follow up in one week if no results received. Patient's INR Goal range is - 2.0-3.0 PT INR (no units) Date Value 09/16/2021 2.9 09/02/2021 3.2 06/06/2021 2.5 biotel INR Home CoaguChek (no units) Date Value 11/05/2024 2.9 10/20/2024 2.7 10/08/2024 1.6 Patient is in titration phase - No Patient has dosing provided until next INR - Yes Patient is on an injectable anticoagulant - No Allergies As of Date: 11/07/2024 (No Known Allergies) Date Reviewed: 11/02/2024 Reviewed by: Angie Jean MA - Fully Assessed Reason for Visit: Anticoagulation Telephone Fu [148] Cmt: Home INR Result Prescriptions as of 11/21/2024 - furosemide (LASIX) 40 mg tablet Take 40 mg by mouth once daily. - umeclidinium-vilanterol (ANORO ELLIPTA) 62.5-25 mcg/actuation inhaler Inhale 1 Inhalation as instructed once daily. - warfarin (COUMADIN) 5 mg tablet 7.5 mg every Mon, Fri; 5 mg all other days - lisinopril (ZESTRIL) 10 mg tablet Take 1 tablet by mouth once daily. - flecainide (TAMBOCOR) 100 mg tablet Take 1 tablet by mouth two times a day. - atorvastatin (LIPITOR) 20 mg tablet Take 1 tablet by mouth once daily. - sertraline (ZOLOFT) 100 mg tablet Take 1 tablet by mouth once daily. - albuterol HFA (VENTOLIN HFA) 90 mcg/actuation inhaler Inhale 2 Puffs as instructed every 4 hours as needed for wheezing/shortness of breath. - loperamide HCl (IMODIUM) 2 mg tab Take 1 tablet by mouth as needed. - doxazosin (CARDURA) 1 mg tablet Take 1 tablet by mouth daily at bedtime. - amLODIPine (NORVASC) 5 mg tablet Take 5 mg by mouth once daily. Problem List As Of Date 11/07/2024 Noted Resolved Hyperlipidemia LDL goal <100 [E78.5] 08/26/2006 05/04/2023 GENERALIZED ANXIETY DIS [F41.1] 08/26/2006 ATRIAL FIBRILLATION [I48.91] 01/28/2007 INT HEMORRHOID W/O COMPL [K64.8] Essential hypertension, benign [I10] 02/27/2010 Skin lesion [L98.9] 03/05/2010 12/20/2014 Moderate mitral regurgitation [I34.0] 02/01/2015 Moderate tricuspid regurgitation [I07.1] 02/01/2015 Paroxysmal atrial fibrillation (HCC) [I48.0] 03/19/2015 04/11/2015 long term (current) use of anticoagulants [Z79.*04/11/2015 Episodic lightheadedness [R42] 04/11/2015 01/21/2018 Bilateral edema of lower extremity [R60.0] 04/11/2015 01/10/2016 Venous (peripheral) insufficiency [I87.2] 04/11/2015 History of DVT (deep vein thrombosis) [Z86.718] 02/14/2016 Asymptomatic LV dysfunction [I51.9] 10/28/2016 long term current use of antiarrhythmic medical*10/28/2016 Change in bowel movement [R19.8] 01/21/2018 03/14/2021 Stage 3a chronic kidney disease (HCC) [N18.31] 04/08/2018 Hyperglycemia [R73.9] 03/14/2021 Hypertensive kidney disease with stage 3a chron*11/06/2021 10/31/2022 Hx of skin (more content not included)... Normal [facility] Magnesium SerPl-mCncon 11-07 Magnesium [Mass/Vol] 1.8 mg/dL Normal 1.7-2.3 [facility] Comment on above: Order Comment: Speci men Type: BLOOD SPECIMENOrdering Facility: [facility] Address: [address] [place] [address] Performed By: #### 1 9123-9, 63011-5 ####[facility] [id number] [address] STATES OF [facility] NT-proBNP [facility] Natriuretic peptide.B prohormone N-Terminal [Mass/Vol] 2170 pg/mL High <450 [facility] Comment on above: Order Comment: Speci men Type: BLOOD SPECIMENOrdering Facility: [facility] Address: [address] [place] [address] Performed By: #### 3 3762-6 ####[facility] LABCLIA [id number] [address] [place] CNOVon 11-02-2024 CNOV Office Visit (FAMPWS ) -------- WILMER MORLEY ([id number]) 1940 M Date Time Provider Department 11/02/24 10:20 AM TIEN SERRANO FAMPWS During your visit today, we recorded the following information about you: Pulse Blood pressure Weight Height 79/minute 110/58 93.7 kg 1.778 m Tien Serrano MD 11/02/2024 11:18 AM Signed Patient presents with: 6 Month Exam HPI: Patient presents today for office visit for routine 6 month follow up. HTN: Denies chest pain No new or worsening shortness of breath Denies headaches Occ dizziness with exertion Currently in A-fib. Denies syncopal episodes No edema Over the last few months, he has noted occasional lightheadedness and has noted he is intermittently in fib again. Follows with Cardiology. Has appointment next week. Continues anticoag. No bleeding or bruising concerns. Due to his elevated bnp, we gave him some lasix. His renal function is not as much as it used to. He does feel better since on lasix. Will hold on it further since better. Remains on coumadin. He is not short of breath when he lays down. No new edema. HLD: No myalgias Seeing Pulmonary in November. Less wheezing. Note was copied and pasted, without alteration from previous ov: Wintered in [place]. Had elected initially not see pulmonary. Had pfts and work up done previously. Added inhalers. Feels like they are losing their effectiveness. Can cough but did start a month ago bringing up green sputum. Before was clear. No sore throat or ear pain or fever. Remains on coumadin. Inr has been up to date. Bp is stable. Still seeing cardiology. No worsening chest pain or worsening palpitations. No edema. Can be more short of breath when lying down. Had echo done in the past for same. Cardiology did not think it was his heart. No bleeding or bruising. Has labs scheduled soon. Last chest xray was ok. Recently inr had climbed due to doxycycline from derm. Latest Ref Rng 10/27/2024 11/01/2024 WBC 3.70 - 11.00 k/uL 6.65 RBC 4.20 - 6.00 m/uL 4.15 (L) Hemoglobin 13.0 - 17.0 g/dL 13.4 Hematocrit 39.0 - 51.0 % 40.2 MCV 80.0 - 100.0 fL 96.9 MCH 26.0 - 34.0 pg 32.3 MCHC 30.5 - 36.0 g/dL 33.3 RDW-CV 11.5 - 15.0 % 13.1 Platelet Count 150 - 400 k/uL 149 (L) MPV 9.0 - 12.7 fL 9.4 Neut% % 64.6 Abs Neut (ANC) 1.45 - 7.50 k/uL 4.30 Lymph% % 20.9 Abs Lymph 1.00 - 4.00 k/uL 1.39 [place]% % 9.3 Abs [place] <0.87 k/uL 0.62 Eosin% % 4.4 Abs Eosin <0.46 k/uL 0.29 Baso% % 0.5 Abs Baso <0.11 k/uL 0.03 Immature Gran % % 0.3 IMMATURE GRANS (ABS) <0.10 k/uL <0.03 NRBC /100 WBC 0.0 Absolute nRBC <0.01 k/uL <0.01 DTYPE Auto Protein, Total 6.3 - 8.0 g/dL 7.1 Albumin 3.9 - 4.9 g/dL 4.2 Calcium 8.5 - 10.2 mg/dL 9.2 9.0 Bilirubin, Total 0.2 - 1.3 mg/dL 0.6 Alkaline Phosphatase 38 - 113 U/L 87 AST 14 - 40 U/L 19 ALT 10 - 54 U/L 20 Glucose 74 - 99 mg/dL 90 98 BUN 9 - 24 mg/dL 37 (H) 42 (H) Creatinine 0.73 - 1.22 mg/dL 1.43 (H) 1.55 (H) Sodium 136 - 144 mmol/L 137 139 Potassium 3.7 - 5.1 mmol/L 4.8 4.3 Chloride 98 - 107 mmol/L 104 105 CO2 22 - 30 mmol/L 21 (L) 21 (L) Anion Gap 8 - 15 mmol/L 12 13 eGFR >=60 mL/min/1.73m? 49 (L) 44 (L) Cholesterol, Total <200 mg/dL 114 Triglyceride <150 mg/dL 80 HDL Cholesterol >39 mg/dL 48 LDL Cholesterol, Calculated <100 mg/dL 50 Non HDL Cholesterol <130 mg/dL 66 VLDL Cholesterol <30 mg/dL 11 TC:HDL Ratio <5.10 2.38 LDL:HDL Ratio <2.54 1.04 Fasting Time hrs 12 Hemoglobin A1C 4.3 - 5.6 % 5.8 (H) Estimated Average Glucose mg/dL 120 NT Pro BNP <450 pg/mL 1,885 (H) Legend: (L) Low (H) High MEDICATIONS: Current Outpatient Medications Medication Sig furosemide (LASIX) 20 mg tablet Take 3 tablets by mouth once daily. flecainide (TAMBOCOR) 100 mg tablet Take 1 tablet by mouth two times a day. atorvastatin (LIPITOR) 20 mg tablet Take 1 tablet by mouth once daily. warfarin (COUMADIN) 5 mg tablet 7.5 mg every Mon, Fri; 5 mg all other days sertraline (ZOLOFT) 100 mg tablet Take 1 tablet by mouth once daily. tiotropium (SPIRIVA WITH HANDIHALER) 18 mcg inhalation capsule Inhale 1 capsule as instructed once daily. Use with handihaler. albuterol HFA (VENTOLIN HFA) 90 mcg/actuation inhaler Inhale 2 Puffs as instructed every 4 hours as needed for wheezing/shortness of breath. lisinopril (ZESTRIL) 10 mg tablet Take 1 tablet by mouth once daily. loperamide HCl (IMODIUM) 2 mg tab Take 1 tablet by mouth as needed. doxazosin (CARDURA) 1 mg tablet Take 1 tablet by mouth daily at bedtime. amLODIPine (NORVASC) 5 mg tablet Take 5 mg by mouth once daily. No current facility-administered medications for this visit. 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 Normal [facility] Basic metabolic 2000 panelOr dered By: Seema Nix on 11-01-2024 Anion gap [Moles/Vol] 13 mmol/L 8 - 15 mmol/L [facility] Calcium [Mass/Vol] 9 mg/dL 8.5 - 10. 2 mg/dL [facility] Chloride [Moles/Vol] 105 mmol/L 98 - 10 7 mmol/L [facility] CO2 [Moles/Vol] 21 mmol/L Low 22 - 30 mmol/L [facility] Creatinine [Mass/Vol] 1.55 mg/dL High 0.73 - 1.22 mg/dL [facility] GFR/1.73 sq M.predicted among non-blacks MDRD (S/P/Bld) [Vol rate/Area] 44 mL/min/{1.73_m2} Low - PINF [facility] Comment on above: Estimated Glomerular Filtration Rate (eGFR) is calculated using the 2020 CKD-EPI creatinine equation. This equation utilizes serum creatinine, sex, and age as parameters. The creatinine assay has traceable calibration to isotope dilution-mass spectrometry. Refer to KDIGO guidelines for clinical interpretation. In patients with unstable renal function, e.g. those with acute kidney injury, the eGFR may not accurately reflect actual GFR. Glucose [Mass/Vol] 98 mg/dL 74 - 99 mg/dL [facility] Comment on above: The [place] Diab[employer] [place] Association (ADA) provides guidance for cutoff values for fasting glucose and random glucose. The ADA defines fasting as no caloric intake for at least 8 hours. Fasting plasma glucose results between 100 to 125 mg/dL indicate increased risk for diabetes (prediabetes). Fasting plasma glucose results greater than or equal to 126 mg/dL meet the criteria for diagnosis of diabetes. In the absence of unequivocal hyperglycemia, results should be confirmed by repeat testing. In a patient with classic symptoms of hyperglycemia or hyperglycemic crisis, random plasma glucose results greater than or equal to 200 mg/dL meet the criteria for diagnosis of diabetes. Reference: Standards of Medical Care in Diabetes 2016, [place] [employer] Association. Diabetes Care. 2016.39(Suppl 1). Interpretation and review of laboratory results Abnormal [facility] Potassium [Moles/Vol] 4.3 mmol/L 3.7 - 5.1 mmol/L [facility] Sodium [Moles/Vol] 139 mmol/L 136 - 144 mmol/L [facility] Urea nitrogen [Mass/Vol] 42 mg/dL High 9 - 24 mg/dL [facility] Basic metabolic 2000 panelon 11-01-2024 Anion gap [Moles/Vol] 13 mmol/L Normal 8-15 [facility] Comment on above: Order Comment: Speci men Type: BLOOD SPECIMENOrdering Facility: [facility] Address: [address] [place] [address] Performed By: #### 2 4321-2 ####[facility]ITALEUNICE [id number] [place] [address] [place] Calcium [Mass/Vol] 9.0 mg/dL Normal 8.5-10.2 [facility] Comment on above: Order Comment: Speci men Type: BLOOD SPECIMENOrdering Facility: [facility] Address: [address] [place] [address] Performed By: #### 2 4321-2 ####[facility] BEACHWDARELLLIA [id number] [place] [id number] [place] Chloride [Moles/Vol] 105 mmol/L Normal 98-107 [facility] Comment on above: Order Comment: Speci men Type: BLOOD SPECIMENOrdering Facility: [facility] Address: [address] [place] [address] Performed By: #### 2 4321-2 ####[facility] [id number] [place] [address] [place] CO2 [Moles/Vol] 21 mmol/L Low 22-30 [facility] Comment on above: Order Comment: Speci men Type: BLOOD SPECIMENOrdering Facility: [facility] Address: [address] [place] [address] Performed By: #### 2 4321-2 ####[facility] [id number] [place] [address] [place] Creatinine [Mass/Vol] 1.55 mg/dL High 0.73-1.22 [facility] Comment on above: Order Comment: Speci men Type: BLOOD SPECIMENOrdering Facility: [facility] Address: [address] [place] [address] Performed By: #### 2 4321-2 ####[facility] [id number] [place] [address] [place] Creatinine and Glomerular filtration rate.predicted panel (S/P/Bld) 44 mL/min/1.73m??? Low >=60 [facility] Comment on above: Order Comment: Speci men Type: BLOOD SPECIMENOrdering Facility: [facility] Address: [address] [place] [address] Result Comment: Mary Jo mated Glomerular Filtration Rate (eGFR) is calculated using the 2020 CKD-EPI creatinine equation. This equation utilizes serum creatinine, sex, and age as parameters. The creatinine assay has traceable calibration to isotope dilution-mass spectrometry. Refer to KDIGO guidelines for clinical interpretation. In patients with unstable renal function, e.g. those with acute kidney injury, the eGFR may not accurately reflect actual GFR. Performed By: #### 2 4321-2 ####[facility] SHARIMiahNCLIA [id number] [place] [address] [place] Glucose [Mass/Vol] 98 mg/dL Normal 74-99 [facility] Comment on above: Order Comment: Speci men Type: BLOOD SPECIMENOrdering Facility: [facility] Address: [address] [place] [address] Result Comment: The [place] Diabetes Association (ADA) provides guidance for cutoff values for fasting glucose and random glucose. The ADA defines fasting as no caloric intake for at least 8 hours. Fasting plasma glucose results between 100 to 125 mg/dL indicate increased risk for diabetes (prediabetes). Fasting plasma glucose results greater than or equal to 126 mg/dL meet the criteria for diagnosis of diabetes. In the absence of unequivocal hyperglycemia, results should be confirmed by repeat testing. In a patient with classic symptoms of hyperglycemia or hyperglycemic crisis, random plasma glucose results greater than or equal to 200 mg/dL meet the criteria for diagnosis of diabetes. Reference: Standards of Medical Care in Diabetes 2016, [place] Diabetes Association. Diabetes Care. 2016.39(Suppl 1). Performed By: #### 2 4321-2 ####[facility] [id number] [place] [address] [place] Potassium [Moles/Vol] 4.3 mmol/L Normal 3.7-5.1 [facility] Comment on above: Order Comment: Speci men Type: BLOOD SPECIMENOrdering Facility: [facility] Address: [address] [place] [address] Performed By: #### 2 4321-2 ####[facility] [id number] [place] [address] [place] Sodium [Moles/Vol] 139 mmol/L Normal 136-144 [facility] Comment on above: Order Comment: Speci men Type: BLOOD SPECIMENOrdering Facility: [facility] Address: [address] [place], [place] [address] Performed By: #### 2 4321-2 ####[facility] SHARIWNCLIA [id number] [address] [facility] Urea nitrogen [Mass/Vol] 42 mg/dL High 9-24 [facility] Comment on above: Order Comment: Speci men Type: BLOOD SPECIMENOrdering Facility: [facility] Address: [facility] [place] [id number] Performed By: #### 2 4321-2 ####[facility] SHARIWNCLIA [id number] [place] [address] [facility] CNPNon 10-28-2024 [facility] Telephone (FAMWS) -------- WILMER MORLEY ([id number]) 1940 M Date Time Provider Department 10/28/24 TIEN [facility]ERRANO [facility] During your visit today, we recorded the following information about you: Tien Serrano MD 10/28/2024 12:33 PM Signed His bnp or chf test is up some which can cause shortness of breath. Add lasix 20 mg a day and follow up in one week. When does he see cardiology next? Check bmp when he comes in. Velma Gonzalez LPN 10/28/2024 2:08 PM Signed Cardio is scheduled November 09. He is already scheduled with us next week. Verbalizes understanding of instructions. Allergies As of Date: 10/28/2024 (No Known Allergies) Date Reviewed: 10/10/2024 Reviewed by: Velma Gonzalez LPN - Fully Assessed Reason for Visit: Results [95] Primary Visit Diagnosis:Essential hypertension, benign [I10] Order(s):BASIC METABOLIC PANEL [SQBMP] Order #: [id number] FUTURE Prescriptions as of 11/02/2024 - flecainide (TAMBOCOR) 100 mg tablet Take 1 tablet by mouth two times a day. - atorvastatin (LIPITOR) 20 mg tablet Take 1 tablet by mouth once daily. - warfarin (COUMADIN) 5 mg tablet 7.5 mg every Mon, Fri; 5 mg all other days - sertraline (ZOLOFT) 100 mg tablet Take 1 tablet by mouth once daily. - tiotropium (SPIRIVA WITH HANDIHALER) 18 mcg inhalation capsule Inhale 1 capsule as instructed once daily. Use with handihaler. - albuterol HFA (VENTOLIN HFA) 90 mcg/actuation inhaler Inhale 2 Puffs as instructed every 4 hours as needed for wheezing/shortness of breath. - lisinopril (ZESTRIL) 10 mg tablet Take 1 tablet by mouth once daily. - loperamide HCl (IMODIUM) 2 mg tab Take 1 tablet by mouth as needed. - doxazosin (CARDURA) 1 mg tablet Take 1 tablet by mouth daily at bedtime. - amLODIPine (NORVASC) 5 mg tablet Take 5 mg by mouth once daily. 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] Essential hypertension, benign [I10] 02/27/2010 Skin lesion [L98.9] 03/05/2010 12/20/2014 Moderate mitral regurgitation [I34.0] 02/01/2015 Moderate tricuspid regurgitation [I07.1] 02/01/2015 Paroxysmal atrial fibrillation (HCC) [I48.0] 03/19/2015 04/11/2015 long term (current) use of anticoagulants [Z79.*04/11/2015 Episodic lightheadedness [R42] 04/11/2015 01/21/2018 Bilateral edema of lower extremity [R60.0] 04/11/2015 01/10/2016 Venous (peripheral) insufficiency [I87.2] 04/11/2015 History of DVT (deep vein thrombosis) [Z86.718] 02/14/2016 Asymptomatic LV dysfunction [I51.9] 10/28/2016 long term current use of antiarrhythmic medical*10/28/2016 Change in bowel movement [R19.8] 01/21/2018 03/14/2021 Stage 3a chronic kidney disease (HCC) [N18.31] 04/08/2018 Hyperglycemia [R73.9] 03/14/2021 Hypertensive kidney disease with stage 3a chron*11/06/2021 10/31/2022 Hx of skin cancer, basal cell [Z85.828] 11/08/2021 Lightheaded [R42] 02/02/2024 Benign paroxysmal positional vertigo of right e*02/02/2024 Chronic obstructive pulmonary disease (HCC) [J4*02/12/2024 Prescriptions ordered this encounter Disp Refills Start End FUROSEMIDE 20 MG TABLET 90 t* 5 10/28/2024 11/02/2024 Route: PO Sig: Take 3 tablets by mouth once daily. Encounter Status:Closed by TIEN SERRANO on 11/02/[address] [facility] CBC W Auto Differential pane l (Bld)on 10-27-2024 Basophils (Bld) [#/Vol] 0.03 10*3/uL Normal <0.11 [facility] Comment on above: Order Comment: Speci men Type: BLOOD SPECIMENOrdering Facility: [facility] Address: [address] [place] [address] Performed By: #### 5 7021-8 ####[facility] [id number] [place] [address] [place] Basophils/100 WBC (Bld) 0.5 % Normal [facility] Comment on above: Order Comment: Speci men Type: BLOOD SPECIMENOrdering Facility: [facility] Address: [address] [place] [address] Performed By: #### 5 7021-8 ####[facility] [id number] [place] [address] [place] Differential cell count method Nom (Bld) Auto Normal [facility] Comment on above: Order Comment: Speci men Type: BLOOD SPECIMENOrdering Facility: [facility] Address: [address] [place] [address] Performed By: #### 5 7021-8 ####[facility] SHARIBUFFALODARELLLIA [id number] [place] [address] [place] Eosinophils (Bld) [#/Vol] 0.29 10*3/uL Normal <0.46 [facility] Comment on above: Order Comment: Speci men Type: BLOOD SPECIMENOrdering Facility: [facility] Address: [address] [place] [address] Performed By: #### 5 7021-8 ####[facility] [id number] [place] [address] [place] Eosinophils/100 WBC (Bld) 4.4 % Normal [facility] Comment on above: Order Comment: Speci men Type: BLOOD SPECIMENOrdering Facility: [facility] Address: [address] [place] [address] Performed By: #### 5 7021-8 ####[facility] [id number] [place] [address] [place] Erythrocyte distribution width (RBC) [Ratio] 13.1 % Normal 11.5-15.0 [facility] Comment on above: Order Comment: Speci men Type: BLOOD SPECIMENOrdering Facility: [facility] Address: [address] [place] [address] Performed By: #### 5 7021-8 ####[facility] SYSTEMLIA [id number] [place] [address] [place] Hematocrit (Bld) [Volume fraction] 40.2 % Normal 39.0-51.0 [facility] Comment on above: Order Comment: Speci men Type: BLOOD SPECIMENOrdering Facility: [facility] Address: [address] [place] [address] Performed By: #### 5 7021-8 ####[facility] HOSPITALNCLIA [id number] [place] [address] [place] Hemoglobin (Bld) [Mass/Vol] 13.4 g/dL Normal 13.0-17.0 [facility] Comment on above: Order Comment: Speci men Type: BLOOD SPECIMENOrdering Facility: [facility] Address: [address] [place] [address] Performed By: #### 5 7021-8 ####[facility] SYSTEMLIA [id number] [place] [address] [place] Immature granulocytes (Bld) [#/Vol] 10*3/uL Normal <0.10 [facility] Comment on above: Order Comment: Speci men Type: BLOOD SPECIMENOrdering Facility: [facility] Address: [address] [place] [address] Performed By: #### 5 7021-8 ####[facility] [id number] [place] [address] [place] Immature granulocytes/100 WBC (Bld) 0.3 % Normal [facility] Comment on above: Order Comment: Speci men Type: BLOOD SPECIMENOrdering Facility: [facility] Address: [address] [place] [address] Performed By: #### 5 7021-8 ####[facility] SYSTEMLIA [id number] [place] [address] [place] Lymphocytes (Bld) [#/Vol] 1.39 10*3/uL Normal 1.00-4.00 [facility] Comment on above: Order Comment: Speci men Type: BLOOD SPECIMENOrdering Facility: [facility] Address: [address] [place] [address] Performed By: #### 5 7021-8 ####[facility] HOSPITALNCLIA [id number] [place] [address] [place] Lymphocytes/100 WBC (Bld) 20.9 % Normal [facility] Comment on above: Order Comment: Speci men Type: BLOOD SPECIMENOrdering Facility: [facility] Address: [address] [place] [address] Performed By: #### 5 7021-8 ####[facility] [id number] [place] [address] [place] MCH (RBC) [Entitic mass] 32.3 pg Normal 26.0-34.0 [facility] Comment on above: Order Comment: Speci men Type: BLOOD SPECIMENOrdering Facility: [facility] Address: [address] [place] [address] Performed By: #### 5 7021-8 ####[facility] [id number] [place] [address] [place] MCHC (RBC) [Mass/Vol] 33.3 g/dL Normal 30.5-36.0 [facility] Comment on above: Order Comment: Speci men Type: BLOOD SPECIMENOrdering Facility: [facility] Address: [address] [place] [address] Performed By: #### 5 7021-8 ####[facility] [id number] [place] [address] [place] MCV (RBC) [Entitic vol] 96.9 fL Normal 80.0-100.0 [facility] Comment on above: Order Comment: Speci men Type: BLOOD SPECIMENOrdering Facility: [facility] Address: [address] [place] [address] Performed By: #### 5 7021-8 ####[facility] [id number] [place] [address] [place] Monocytes (Bld) [#/Vol] 0.62 10*3/uL Normal <0.87 [facility] Comment on above: Order Comment: Speci men Type: BLOOD SPECIMENOrdering Facility: [facility] Address: [address] [place] [address] Performed By: #### 5 7021-8 ####[facility] MILLTOWNCLIA [id number] [place] [address] [place] Monocytes/100 WBC (Bld) 9.3 % Normal [facility] Comment on above: Order Comment: Speci men Type: BLOOD SPECIMENOrdering Facility: [facility] Address: [address] [place] [address] Performed By: #### 5 7021-8 ####[facility] MILLTOWNCLIA [id number] [place] [address] [place] Neutrophils (Bld) [#/Vol] 4.30 10*3/uL Normal 1.45-7.50 [facility] Comment on above: Order Comment: Speci men Type: BLOOD SPECIMENOrdering Facility: [facility] Address: [address] [place] [address] Performed By: #### 5 7021-8 ####[facility] BEACHWNCLIA [id number] [place] [address] [place] Neutrophils/100 WBC (Bld) 64.6 % Normal [facility] Comment on above: Order Comment: Speci men Type: BLOOD SPECIMENOrdering Facility: [facility] Address: [address] [place] [address] Performed By: #### 5 7021-8 ####[facility] MILLTOWNCLIA [id number] [place] [address] [place] Nucleated RBC (Bld) [#/Vol] 10*3/uL Normal <0.01 [facility] Comment on above: Order Comment: Speci men Type: BLOOD SPECIMENOrdering Facility: [facility] Address: [address] [place] [address] Performed By: #### 5 7021-8 ####[facility] MILLTOWNCLIA [id number] [place] [address] [place] Nucleated RBC/100 WBC (Bld) [Ratio] 0.0 /[address] [facility] Comment on above: Order Comment: Speci men Type: BLOOD SPECIMENOrdering Facility: [facility] Address: [address] [place] [address] Performed By: #### 5 7021-8 ####[facility] SHARIBUFFALOEUNICE [id number] [place] [address] [place] Platelet mean volume (Bld) [Entitic vol] 9.4 fL Normal 9.0-12.7 [facility] Comment on above: Order Comment: Speci men Type: BLOOD SPECIMENOrdering Facility: [facility] Address: [address] [place] [address] Performed By: #### 5 7021-8 ####[facility] HOSPITALDARELLFay [id number] [place] [address] [place] Platelets (Bld) [#/Vol] 149 10*3/uL Low 150-400 [facility] Comment on above: Order Comment: Speci men Type: BLOOD SPECIMENOrdering Facility: [facility] [facility] Address: [address] [place] [address] Performed By: #### 5 7021-8 ####[facility]ITALEUNICE [id number] [place] [address] [place] RBC (Bld) [#/Vol] 4.15 10*6/uL Low 4.20-6.00 [facility] Comment on above: Order Comment: Speci men Type: BLOOD SPECIMENOrdering Facility: [facility] Address: [address] [place] [address] Performed By: #### 5 7021-8 ####[facility] HOSPITALDARELLLIA [id number] [place] [address] [place] WBC (Bld) [#/Vol] 6.65 10*3/uL Normal 3.70-11.00 [facility] Comment on above: Order Comment: Speci men Type: BLOOD SPECIMENOrdering Facility: [facility] Address: [address] [place] [address] Performed By: #### 5 7021-8 ####[facility] [id number] [place] [address] [place] Comprehensive metabolic 2000 panelon 10-27-2024 Albumin [Mass/Vol] 4.2 g/dL Normal 3.9-4.9 [facility] Comment on above: Order Comment: Speci men Type: BLOOD SPECIMENOrdering Facility: [facility] Address: [address] [place] [address] Performed By: #### 2 4323-8 ####[facility] [id number] [place] [address] [place] ALP [Catalytic activity/Vol] 87 U/L Normal 38-113 [facility] Comment on above: Order Comment: Speci men Type: BLOOD SPECIMENOrdering Facility: [facility] Address: [address] [place] [address] Performed By: #### 2 4323-8 ####[facility] [id number] [address] STATES [place] ALT [Catalytic activity/Vol] 20 U/L Normal 10-54 [facility] Comment on above: Order Comment: Speci men Type: BLOOD SPECIMENOrdering Facility: [facility] Address: [address] [place] [address] Performed By: #### 2 4323-8 ####[facility]ITALNCLIA [id number] [place] [address] [place] Anion gap [Moles/Vol] 12 mmol/L Normal 8-15 [facility] Comment on above: Order Comment: Speci men Type: BLOOD SPECIMENOrdering Facility: [facility] Address: [address] [place] [address] Performed By: #### 2 4323-8 ####[facility] SHARIJESSICALIA [id number] [place] [address] [place] AST [Catalytic activity/Vol] 19 U/L Normal 14-40 [facility] Comment on above: Order Comment: Speci men Type: BLOOD SPECIMENOrdering Facility: [facility] Address: [address] [place] [address] Performed By: #### 2 4323-8 ####[facility]ITALNCLIA [id number] [place] [address] [place] Bilirubin [Mass/Vol] 0.6 mg/dL Normal 0.2-1.3 [facility] Comment on above: Order Comment: Speci men Type: BLOOD SPECIMENOrdering Facility: [facility] Address: [address] [place] [address] Performed By: #### 2 4323-8 ####[facility] SYSTEMLIA [id number] [place] [address] [place] Calcium [Mass/Vol] 9.2 mg/dL Normal 8.5-10.2 [facility] Comment on above: Order Comment: Speci men Type: BLOOD SPECIMENOrdering Facility: [facility] Address: [address] [place] [address] Performed By: #### 2 4323-8 ####[facility]ITALNCLIA [id number] [place] [address] [place] Chloride [Moles/Vol] 104 mmol/L Normal 98-107 [facility] Comment on above: Order Comment: Speci men Type: BLOOD SPECIMENOrdering Facility: [facility] Address: [address] [place] [address] Performed By: #### 2 4323-8 ####[facility]ITALNCLIA [id number] [place] [address] [place] CO2 [Moles/Vol] 21 mmol/L Low 22-30 [facility] Comment on above: Order Comment: Speci men Type: BLOOD SPECIMENOrdering Facility: [facility] Address: [address] [place] [address] Performed By: #### 2 4323-8 ####[facility]ITALNCLIA [id number] [place] [address] [place] Creatinine [Mass/Vol] 1.43 mg/dL High 0.73-1.22 [facility] Comment on above: Order Comment: Speci men Type: BLOOD SPECIMENOrdering Facility: [facility] Address: [address] [place] [address] Performed By: #### 2 4323-8 ####[facility]ITALNCLIA [id number] [place] [address] [place] Creatinine and Glomerular filtration rate.predicted panel (S/P/Bld) 49 mL/min/1.73m??? Low >=60 [facility] Comment on above: Order Comment: Speci men Type: BLOOD SPECIMENOrdering Facility: [facility] Address: [address] [place] [address] Result Comment: Mary Jo mated Glomerular Filtration Rate (eGFR) is calculated using the 2020 CKD-EPI creatinine equation. This equation utilizes serum creatinine, sex, and age as parameters. The creatinine assay has traceable calibration to isotope dilution-mass spectrometry. Refer to KDIGO guidelines for clinical interpretation. In patients with unstable renal function, e.g. those with acute kidney injury, the eGFR may not accurately reflect actual GFR. Performed By: #### 2 4323-8 ####[facility] SHARIWNCLIA [id number] [place] [address] [place] Glucose [Mass/Vol] 90 mg/dL Normal 74-99 [facility] Comment on above: Order Comment: Speci men Type: BLOOD SPECIMENOrdering Facility: [facility] Address: [address] [place] [address] Result Comment: The [place] Diabetes Association (ADA) provides guidance for cutoff values for fasting glucose and random glucose. The ADA defines fasting as no caloric intake for at least 8 hours. Fasting plasma glucose results between 100 to 125 mg/dL indicate increased risk for diabetes (prediabetes). Fasting plasma glucose results greater than or equal to 126 mg/dL meet the criteria for diagnosis of diabetes. In the absence of unequivocal hyperglycemia, results should be confirmed by repeat testing. In a patient with classic symptoms of hyperglycemia or hyperglycemic crisis, random plasma glucose results greater than or equal to 200 mg/dL meet the criteria for diagnosis of diabetes. Reference: Standards of Medical Care in Diabetes 2016, [place] Diabetes Association. Diabetes Care. 2016.39(Suppl 1). Performed By: #### 2 4323-8 ####[facility] [id number] [place] [address] [place] Potassium [Moles/Vol] 4.8 mmol/L Normal 3.7-5.1 [facility] Comment on above: Order Comment: Speci men Type: BLOOD SPECIMENOrdering Facility: [facility] Address: [address] [place] [address] Performed By: #### 2 4323-8 ####[facility] [id number] [place] [address] [place] Protein [Mass/Vol] 7.1 g/dL Normal 6.3-8.0 [facility] Comment on above: Order Comment: Speci men Type: BLOOD SPECIMENOrdering Facility: [facility] Address: [address] [place] [address] Performed By: #### 2 4323-8 ####[facility] [id number] [place] [address] [place] Sodium [Moles/Vol] 137 mmol/L Normal 136-144 [facility] Comment on above: Order Comment: Speci men Type: BLOOD SPECIMENOrdering Facility: [facility] Address: [address] [place] [address] Performed By: #### 2 4323-8 ####[facility] [id number] [place] [address] [place] Urea nitrogen [Mass/Vol] 37 mg/dL High 9-24 [facility] Comment on above: Order Comment: Speci men Type: BLOOD SPECIMENOrdering Facility: [facility] Address: [address] [place] [address] Performed By: #### 2 4323-8 ####[facility] [id number] [place] [address] [place] HbA1c (Bld)on 10-27-2024 Average glucose Estimated from glycated hemoglobin (Bld) [Mass/Vol] 120 mg/dL Normal [facility] Comment on above: Order Comment: Martha men Type: BLOOD SPECIMENOrdering Facility: [facility] Address: [address] [place] [address] Result Comment: eAG: (Estimated average glucose) is a calculated value from HgbA1c and is treasury representative of the average blood glucose level in the last 2-3 month period. Performed By: #### 5 5454-3 ####[facility] LABCLIA [id number] [address] [place] HbA1c (Bld) [Mass fraction] 5.8 % High 4.3-5.6 [facility] Comment on above: Order Comment: Martha murguia Type: BLOOD SPECIMENOrdering Facility: [facility] Address: [address] [place] [address] Result Comment: Amer [place] Diabetes Association guidelines indicate that patients with HgbA1c in the range 5.7-6.4% are at increased risk for development of diabetes, and intervention by lifestyle modification may be beneficial. HgbA1c greater or equal to 6.5% is considered diagnostic of diabetes. Performed By: #### 5 5454-3 ####[facility] LABCLIA [id number] [facility] [id number] [address] [place] Lipid 1996 panelon 5 Cholesterol [Mass/Vol] 114 mg/dL Normal <200 [facility] Comment on above: Order Comment: Martha men Type: BLOOD SPECIMENOrdering Facility: [facility] Address: [address] [place] [address] Result Comment: <200 mg/dL, Desirable 200-239 mg/dL, Borderline high >239 mg/dL, High Performed By: #### 2 4331-1 ####[facility] LABCLIA [id number] [facility] [address] [place] [address] [place] [facility] [id number] [place] [address] [place]#### 68895-6 ####[facility] LABCLIA [id number] [address], [facility] [place] Cholesterol in HDL [Mass/Vol] 48 mg/dL Normal >39 [facility] Comment on above: Order Comment: Tristini men Type: BLOOD SPECIMENOrdering Facility: [facility] Address: [address] [place] [address] Result Comment: 40-5 9 mg/dL, Acceptable >59 mg/dL, High: Negative risk factor for coronary heart disease <40 mg/dL, Low: Positive risk factor for coronary heart disease Performed By: #### 2 4331-1 ####[facility] LABCLIA [id number] [facility] [id number], [place] [address] [place] [facility] [id number] [place] [address] [place]#### 59280-6 ####[facility] LABCLIA [id number] [address] [place] [address] [place] Cholesterol in LDL [Mass/Vol] 50 mg/dL Normal <100 [facility] Comment on above: Order Comment: Speci blade Type: BLOOD SPECIMENOrdering Facility: [facility] Address: [address] [place] [address] Result Comment: <100 mg/dL, Optimal 100-129 mg/dL, Near optimal/above optimal 130-159 mg/dL, Borderline high 160-189 mg/dL, High >189 mg/dL, Very high Secondary prevention optimal LDL Cholesterol levels are recommended to be <70 mg/dL LDL cholesterol is calculated using the Felix-NIH equation. Performed By: #### 2 4331-1 ####[facility] LABCLIA [id number] [place] [id number] [place] [address]#### 81432-7 ####[facility] LABIA [id number] [address] Cholesterol in LDL/Cholesterol in HDL [Mass ratio] 1.04 {ratio} Normal <2.54 [facility] Comment on above: Order Comment: Martha murguia Type: BLOOD SPECIMENOrdering Facility: [facility] Address: [address] [place] [address] Result Comment: Lakhwinder venegas: 1. National Cholesterol Education Program ATP III Guideline At-A-Glance Quick Desk Reference: National Heart, Lung, and Blood [place]. National Institutes of Health. 2001: NIH Publication No. 01-3305. 2. An International Atherosclerosis Society position paper: global recommendations for the management of dyslipidemia: executive summary, Atherosclerosis. 2014: 232(2):410-413. Performed By: #### 2 4331-1 ####[facility] LABCLIA [id number] [id number] [place] [address] OF [place]#### 62318-5 ####[facility] LABCLIA [id number] [address] [address] [place] Cholesterol in VLDL [Mass/Vol] 11 mg/dL Normal <30 [facility] Comment on above: Order Comment: Speci men Type: BLOOD SPECIMENOrdering Facility: [facility] Address: [address] [place] [address] Performed By: #### 2 4331-1 ####[facility] LABCLIA [id number] [place] [id number] [place] [facility] [id number] [place] [address] [place]#### 94748-6 ####[facility] LABCLIA [id number] [address] [place] Cholesterol non HDL [Mass/Vol] 66 mg/dL Normal <130 [facility] Comment on above: Order Comment: Speci men Type: BLOOD SPECIMENOrdering Facility: [facility] Address: [address] [place] [address] Result Comment: <130 mg/dL, Optimal 130-159 mg/dL, Near optimal/above optimal 160-189 mg/dL, Borderline high 190-219 mg/dL, High >219 mg/dL, Very high Secondary prevention optimal non HDL Cholesterol levels are recommended to be <100 mg/dL Performed By: #### 2 4331-1 ####[facility] LABCLIA [id number] [place] [id number] [place] [facility] [id number] [place] [address] [place]#### 46877-8 ####[facility] LABCLIA [id number] [place] 5405[address] [place] Cholesterol.total/Ch olesterol in HDL [Mass ratio] 2.38 {ratio} Normal <5.10 [facility] Comment on above: Order Comment: Speci men Type: BLOOD SPECIMENOrdering Facility: [facility] Address: [address] [place], [place] [address] Performed By: #### 2 4331-1 ####[facility] LABCLIA [id number] [address] [place] [address] [place] [facility] [id number] [place] [address] [place]#### 33805-6 ####[facility] LABCLIA [id number] [address], [facility] [place] FASTING TIME [address] [facility] Comment on above: Order Comment: Speci men Type: BLOOD SPECIMENOrdering Facility: [facility] Address: [address] [place], [place] [address] Performed By: #### 2 4331-1 ####[facility] LABCLIA [id number] [address], [place] [address] [place] [facility] [id number] [place] [address] [place]#### 99437-6 ####[facility] LABCLIA [id number] [address], [facility] [place] Triglyceride [Mass/Vol] 80 mg/dL Normal <150 [facility] Comment on above: Order Comment: Speci men Type: BLOOD SPECIMENOrdering Facility: [facility] Address: [address] [place], [place] [address] Result Comment: <150 mg/dL, Normal 150-199 mg/dL, Borderline high 200-499 mg/dL, High >499 mg/dL, Very high Performed By: #### 2 4331-1 ####[facility] LABCLIA [id number] [address] [place] [address] [place] [facility] [id number] [place]#### 17891-3 ####[facility] [id number] [address] STATES OF [place] NT-proBNP [facility] 10-27 Natriuretic peptide.B prohormone N-Terminal [Mass/Vol] 1885 pg/mL High <450 [facility] Comment on above: Order Comment: Speci men Type: BLOOD SPECIMENOrdering Facility: [facility] Address: [address] [place] [address] Performed By: #### 2 4331-1 ####[facility] HOSPITALIA [id number] [address] STATES OF [facility] [id number] [address] OF [place]#### [address]86[address]-8 ####[facility] HOSPITALIA [id number] [address] OF [facility] 10-20-2024 CNPN Telephone (PHAMTE) -------- WILMER MORLEY ([id number]) 1940 M Date Time Provider Department 10/20/24 JINNY SHAH During your visit today, we recorded the following information about you: Jinny Shah, [facility] 10/20/2024 1:44 PM S[address] [facility] Ambulatory Pharmacy Anticoagulation Clinic Anticoagulation Episode Summary Anticoagulation Care Providers Provider Role Specialty Phone number Tien Serrano MD Referring Family Medicine [phone] Wilmer Maxwelley is a 83 year old year old male patient being evaluated today for a Telemanagement visit. Patient is currently on the following anticoagulant(s) Warfarin. Labs Lab Results Component Value Date INR 2.7 10/20/2024 INR 1.6 (A) 10/08/2024 INR 2.7 09/22/2024 Lab Results Component Value Date HB 13.9 11/03/2023 HB 13.9 01/30/2022 HB 13.0 10/10/2021 Lab Results Component Value Date HCT 42.3 11/03/2023 HCT 43.0 01/30/2022 HCT 40.4 10/10/2021 Lab Results Component Value Date PLT 162 11/03/2023 PLT 170 01/30/2022 PLT 173 10/10/2021 Lab Results Component Value Date CREAT 1.09 12/28/2023 CREAT 1.23 (H) 11/11/2023 CREAT 1.21 11/03/2023 No components found for: TBILI3 Lab Results Component Value Date ALT 35 11/03/2023 ALT 13 10/27/2022 ALT 19 01/30/2022 Lab Results Component Value Date AST 33 11/03/2023 AST 14 10/27/2022 AST 18 01/30/2022 CrCl cannot be calculated (Patient's most recent lab result is older than the maximum 180 days allowed.). ALLERGIES No Known Allergies 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: long term (current) use of anticoagulants History of dvt (deep vein thrombosis) Anticoagulation Episode Summary Current INR goal: 2.0-3.0 Assessment: INR result of 2.7 is therapeutic Plan: Current Warfarin Dosing As of 10/20/2024 Full warfarin instructions: 7.5 mg every Mon; 5 mg all other days Sent HowGood message Advised patient to continue current weekly dose as noted above Next home INR check scheduled on 11/03/2024 Patient advised to call the PAC with any medication changes, bleeding/bruising concerns, recent changes in vitamin k consumption, if any procedures are coming up, if they have been ill or in the hospital, and if they have missed any doses of warfarin. Jinny Shah [facility] Clinical Pharmacist, Pharmacy Anticoagulation Clinic Pharmacy Anticoagulation Clinic Pager: [phone]. Jinny Shah [facility] 11/03/2024 10:35 AM Signed Patient was due to test INR today. Will continue to monitor for results. Follow up in one week if no results received. Patient's INR Goal range is - 2.0-3.0 PT INR (no units) Date Value 09/16/2021 2.9 09/02/2021 3.2 06/06/2021 2.5 biotel INR Home CoaguChek (no units) Date Value 10/20/2024 2.7 10/08/2024 1.6 09/22/2024 2.7 Patient is in titration phase - No Patient has dosing provided until next INR - Yes Patient is on an injectable anticoagulant - No Jinny Shah [facility] Allergies As of Date: 10/20/2024 (No Known Allergies) Date Reviewed: 10/10/2024 Reviewed by: Velma Gonzalez LPN - Fully Assessed Reason for Visit: Anticoagulation Telephone Fu [148] Cmt: Home INR Primary Visit Diagnosis:long term (current) use of anticoagulants [Z79.01] Other Visit Diagnosis:History of DVT (deep vein thrombosis) [Z86.718] Prescriptions as of 11/03/2024 - flecainide (TAMBOCOR) 100 mg tablet Take 1 tablet by mouth two times a day. - atorvastatin (LIPITOR) 20 mg tablet Take 1 tablet by mouth once daily. - warfarin (COUMADIN) 5 mg tablet 7.5 mg every Mon, Fri; 5 mg all other days - sertraline (ZOLOFT) 100 mg tablet Take 1 tablet by mouth once daily. - tiotropium (SPIRIVA WITH HANDIHALER) 18 mcg inhalation capsule Inhale 1 capsule as instructed once daily. Use with handihaler. - albuterol HFA (VENTOLIN HFA) 90 mcg/actuation inhaler Inhale 2 Puffs as instructed every 4 hours as needed for wheezing/shortness of breath. - lisinopril (ZESTRIL) 10 mg tablet Take 1 tablet by mouth once daily. - loperamide HCl (IMODIUM) 2 mg tab Take 1 tablet by mouth as needed. - doxazosin (CARDURA) 1 mg tablet Take 1 tablet by mouth daily at bedtime. - amLODIPine (NORVASC) 5 mg tablet Take 5 mg by mouth once daily. Problem List As Of Date 10/20/2024 Noted Resolved Hyperlipidemia LDL goal <100 [E78.5] 08/26/2006 05/04/2023 GENERALIZED ANXIETY DIS [F41.1] 08/26/2006 ATRIAL FIBRILLATION [I48.91] 01/28/2007 INT HEMORRHOID W/O COMPL [K64.8] Essential hypertension, benign [I10] 02/27/2010 Skin lesion [L98.9] 03/05/2010 12/20/2014 Moderate mitral regurgitation [I34.0] 02/01/2015 Moderate tricuspid regurgitation [I07.1] 02/01/2015 Paroxysmal atrial fibrillation (HCC) [I48.0] 03/19/2015 04/11/2015 long term (current) use of anticoagulants [Z79.*04/11/2015 Episodic lightheadedness [R42] 04/11/2015 01/21/2018 (more content not included)... Normal [facility] XR CHEST 2V FRONTAL/LATon XR CHEST 2V FRONTAL/LAT * * *Final Report* * * DATE OF EXAM: Oct 11 2024 11:07AM [id number] - XR CHEST 2V FRONTAL/LAT / PROCEDURE REASON: multiple diagnoses * * * * Physician Interpretation * * * * EXAMINATION: CHEST RADIOGRAPH (2 VIEW FRONTAL and LATERAL) CLINICAL HISTORY: SOB (shortness of breath) COPD with exacerbation (HCC) MQ: XC2_6 EXAM DATE/TIME: 10/11/2024 11:07 AM COMPARISON: Chest x-ray of 02/10/2024 RESULT: Lines, tubes, and devices: None. Lungs and pleura: No consolidation. No lung mass. No pleural effusion. No pneumothorax. Cardiomediastinal silhouette: Normal cardiomediastinal silhouette. Bones and soft tissues: Stable degenerative changes of the mid to lower thoracic spine. IMPRESSION: No acute radiographic abnormality. 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 CNOVon 10-10-2024 CNOV Office Visit (FAMPWS ) -------- WILMER MORLEY ([id number]) 1940 M Date Time Provider Department 10/10/24 7:20 PM TIEN SERRANO During your visit today, we recorded the following information about you: Pulse Blood pressure Weight 60/minute 138/68 93.9 kg Tien Serrano MD 10/10/2024 7:47 PM Signed Patient presents with: Consult: Would like to see pulm. Had testing done in Feb. Breathing has gotten worse but just got back from [facility] HPI: Patient presents today for office visit for follow up. Wintered in [place]. Had elected initially not see pulmonary. Had pfts and work up done previously. Added inhalers. Feels like they are losing their effectiveness. Can cough but did start a month ago bringing up green sputum. Before was clear. No sore throat or ear pain or fever. Remains on coumadin. Inr has been up to date. Bp is stable. Still seeing cardiology. No worsening chest pain or worsening palpitations. No edema. Can be more short of breath when lying down. Had echo done in the past for same. Cardiology did not think it was his heart. No bleeding or bruising. Has labs scheduled soon. Last chest xray was ok. Recently inr had climbed due to doxycycline from derm. Note was copied and pasted, without alteration from last ov in Nov: Slight improvement with inhaler and breathing. Offered pulmonary. He overall feels things are improving enough that he is ok. No chest pain or shortness of breath. No cough Has rare sputum. Improved balance since therapy. Has also made adjustments to how he does things. Doing exercises that was given in therapy but could do them more often. See Katy's last note, copied and pasted. : He had PFTs completed, which showed. IMPRESSION: Spirometry indicates moderate obstruction. Positive bronchodilator response. Lung volumes (FRC and/or RV) are elevated indicating hyperinflation and air trapping He was started on spiriva and albuterol. Has noticed maybe a little better. Gets winded with activity, so going to try using the inhaler before activity to see if that helps prevent the SOB with exacerbation. MEDICATIONS: Current Outpatient Medications Medication Sig flecainide (TAMBOCOR) 100 mg tablet Take 1 tablet by mouth two times a day. atorvastatin (LIPITOR) 20 mg tablet Take 1 tablet by mouth once daily. warfarin (COUMADIN) 5 mg tablet 7.5 mg every Mon, Fri; 5 mg all other days (Patient taking differently: 7.5 mg every Mon; 5 mg all other days) sertraline (ZOLOFT) 100 mg tablet Take 1 tablet by mouth once daily. tiotropium (SPIRIVA WITH HANDIHALER) 18 mcg inhalation capsule Inhale 1 capsule as instructed once daily. Use with handihaler. albuterol HFA (VENTOLIN HFA) 90 mcg/actuation inhaler Inhale 2 Puffs as instructed every 4 hours as needed for wheezing/shortness of breath. lisinopril (ZESTRIL) 10 mg tablet Take 1 tablet by mouth once daily. loperamide HCl (IMODIUM) 2 mg tab Take 1 tablet by mouth as needed. doxazosin (CARDURA) 1 mg tablet Take 1 tablet by mouth daily at bedtime. amLODIPine (NORVASC) 5 mg tablet Take 5 mg by mouth once daily. No current facility-administered medications for this visit. 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 Benign neoplasm of colon CKD (chronic kidney disease), stage III (HCC) 04/08/2018 Diverticulosis of colon (without mention of hemorrhage) Essential hypertension, benign 02/27/2010 Facial basal cell cancer 2009 Internal hemorrhoids without mention of complication Other acute embolism veins Other and unspecified hyperlipidemia hypertriglyeridemia Personal history of colonic polyps PAST SURGICAL HISTORY Procedure Laterality Date CATARACT EXTRACTION HX Left CATARACT SURGERY, COMPLEX 2009 R eye COLONOSCOPY FLX DX W/COLLJ SPEC WHEN PFRMD 08/05/2000 Colonoscopy COLONOSCOPY FLX DX W/COLLJ SPEC WHEN PFRMD 11/02/2002 Colonoscopy COLONOSCOPY FLX DX W/COLLJ SPEC WHEN PFRMD 01/29/2009 COLONOSCOPY FLX DX W/COLLJ SPEC WHEN PFRMD 02/24/2014 Colonoscopy COLONOSCOPY FLX DX W/COLLJ SPEC WHEN PFRMD 03/09/[facility] ESOPHAGOGASTRODUODENOSCO PY TRANSORAL DIAGNOSTIC N/A 08/16/2020 [facility] H[facility] OF 2010 basal cell to right above upper lip FAMILY HISTORY Problem Relation Age of Onset Heart Father CHF Heart Mother CHF Heart Brother [place] - rheumatic fever Cancer Brother gastric Asthma Sister Social History Tobacco Use Smoking status: Former Current packs/day: 0.00 Types: Cigarettes Start date: 02/24/2010 Quit date: 02/24/2011 Years since quittin.6 Smokeless tobacco: Never Substance Use Topics Alcohol use: Yes Alcohol/week: 2.3 standard drinks of alcohol Types: 1 Glasses of Wine (5 (more content not included)... Normal [facility] CNPNon 10-10-2024 CNPN Telephone (PHARMN) -------- WILMER MORLEY ([id number]) 1940 M Date Time Provider Department 10/10/24 PHARMACIST PHARMN During your visit today, we recorded the following information about you: Sulema Villalobos RN 10/10/2024 10:03 AM Signed [facility]il from [facility] calling to report the patient's INR result 10/08. PT INR (no units) Date Value 09/16/2021 2.9 09/02/2021 3.2 06/06/2021 2.5 biotel INR Home CoaguChek (no units) Date Value 10/08/2024 1.6 09/22/2024 2.7 09/06/2024 2.4 Ivania Villalobos RN Pharmacy Anticoagulation Clinic Namita Gee RPh 10/10/2024 11:07 AM S[address] [facility] Ambulatory Pharmacy Anticoagulation Clinic Anticoagulation Episode Summary Anticoagulation Care Providers Provider Role Specialty Phone number Tien Serrano MD Referring Family Medicine [phone] Wilmer Maxwelley is a 83 year old year old male patient being evaluated today for a Telemanagement visit. Patient is currently on the following anticoagulant(s) Warfarin. Labs PT INR (no units) Date Value 09/16/2021 2.9 09/02/2021 3.2 06/06/2021 2.5 biotel INR Home CoaguChek (no units) Date Value 10/08/2024 1.6 09/22/2024 2.7 09/06/2024 2.4 CrCl cannot be calculated (Patient's most recent lab result is older than the maximum 180 days allowed.). ALLERGIES No Known Allergies 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: Anticoagulation Episode Summary Current INR goal: 2.0-3.0 Assessment: INR result of 1.6 is SUBtherapeutic due to: No obvious cause (patient denies liver, green tea, new herbal/nutritional supplements - such as Boost, Ensure, an increase in vit K foods and/or V8 type juices, any changes in warfarin tablet, or missed doses) Plan: Current Warfarin Dosing As of 10/10/2024 Full warfarin instructions: 7.5 mg every Mon; 5 mg all other days Called and spoke to patient/caregiver Advised patient to continue current weekly dose as noted above (already increased his dose on Thursday) Next INR check due on 10/24/2024 Patient verbalizes understanding of the plan. Namita Gee [facility] Clinical Pharmacist, Pharmacy Anticoagulation Clinic Pharmacy Anticoagulation Clinic Pager: [phone]. Allergies As of Date: 10/10/2024 (No Known Allergies) Date Reviewed: 03/23/2024 Reviewed by: Tra Foss LPN - Fully Assessed Reason for Visit: Anticoagulation [8] Prescriptions as of 10/10/2024 - flecainide (TAMBOCOR) 100 mg tablet Take 1 tablet by mouth two times a day. - atorvastatin (LIPITOR) 20 mg tablet Take 1 tablet by mouth once daily. - warfarin (COUMADIN) 5 mg tablet 7.5 mg every Mon, Fri; 5 mg all other days - sertraline (ZOLOFT) 100 mg tablet Take 1 tablet by mouth once daily. - tiotropium (SPIRIVA WITH HANDIHALER) 18 mcg inhalation capsule Inhale 1 capsule as instructed once daily. Use with handihaler. - albuterol HFA (VENTOLIN HFA) 90 mcg/actuation inhaler Inhale 2 Puffs as instructed every 4 hours as needed for wheezing/shortness of breath. - lisinopril (ZESTRIL) 10 mg tablet Take 1 tablet by mouth once daily. - loperamide HCl (IMODIUM) 2 mg tab Take 1 tablet by mouth as needed. - doxazosin (CARDURA) 1 mg tablet Take 1 tablet by mouth daily at bedtime. - amLODIPine (NORVASC) 5 mg tablet Take 5 mg by mouth once daily. Problem List As Of Date 10/10/2024 Noted Resolved Hyperlipidemia LDL goal <100 [E78.5] 08/26/2006 05/04/2023 GENERALIZED ANXIETY DIS [F41.1] 08/26/2006 ATRIAL FIBRILLATION [I48.91] 01/28/2007 INT HEMORRHOID W/O COMPL [K64.8] Essential hypertension, benign [I10] 02/27/2010 Skin lesion [L98.9] 03/05/2010 12/20/2014 Moderate mitral regurgitation [I34.0] 02/01/2015 Moderate tricuspid regurgitation [I07.1] 02/01/2015 Paroxysmal atrial fibrillation (HCC) [I48.0] 03/19/2015 04/11/2015 USP (current) use of anticoagulants [Z79.*04/11/2015 Episodic lightheadedness [R42] 04/11/2015 01/21/2018 Bilateral edema of lower extremity [R60.0] 04/11/2015 01/10/2016 Venous (peripheral) insufficiency [I87.2] 04/11/2015 History of DVT (deep vein thrombosis) [Z86.718] 02/14/2016 Asymptomatic LV dysfunction [I51.9] 10/28/2016 USP current use of antiarrhythmic medical*10/28/2016 Change in bowel movement [R19.8] 01/21/2018 03/14/2021 Stage 3a chronic kidney disease (HCC) [N18.31] 04/08/2018 Hyperglycemia [R73.9] 03/14/2021 Hypertensive kidney disease with stage 3a chron*11/06/2021 10/31/2022 Hx of skin cancer, basal cell [Z85.828] 11/08/2021 Lightheaded [R42] 02/02/2024 Benign paroxysmal positional vertigo of right e*02/02/2024 Chronic obstructive pulmonary disease (HCC) [J4*02/12/2024 Encounter Status:Closed by NAMITA GEE on 10/10/[address] [facility] Chris 09-22-2024 CNPN Telephone (PHAMTE) -------- MILLIWILMER SHARMA ([id number]) 1940 M Date Time Provider Department 09/22/24 JINNY SHAH During your visit today, we recorded the following information about you: Jinny Shah, [facility] 09/22/2024 2:00 PM [address] [facility] Ambulatory Pharmacy Anticoagulation Clinic Anticoagulation Episode Summary Anticoagulation Care Providers Provider Role Specialty Phone number Tien Serrano MD Referring Family Medicine [phone] Wilmer Morley is a 83 year old year old male patient being evaluated today for a Telemanagement visit. Patient is currently on the following anticoagulant(s) Warfarin. Labs PT INR (no units) Date Value 09/16/2021 2.9 09/02/2021 3.2 06/06/2021 2.5 biotel INR Home CoaguChek (no units) Date Value 09/22/2024 2.7 09/06/2024 2.4 08/16/2024 2.0 Hemoglobin (g/dL) Date Value 11/03/2023 13.9 03/14/2021 14.8 Hematocrit (%) Date Value 11/03/2023 42.3 03/14/2021 44.9 Platelet Count (k/uL) Date Value 11/03/2023 162 03/14/2021 191 Creatinine (mg/dL) Date Value 12/28/2023 1.09 11/11/2023 1.23 11/03/2023 1.21 03/14/2021 1.34 09/06/2020 1.27 08/06/2020 1.43 Bilirubin, Total (mg/dL) Date Value 11/03/2023 0.6 03/14/2021 1.1 ALT (U/L) Date Value 11/03/2023 35 03/14/2021 32 AST (U/L) Date Value 11/03/2023 33 03/14/2021 30 CrCl cannot be calculated (Patient's most recent lab result is older than the maximum 180 days allowed.). ALLERGIES No Known Allergies 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: USP (current) use of anticoagulants History of dvt (deep vein thrombosis) Anticoagulation Episode Summary Current INR goal: 2.0-3.0 Assessment: INR result of 2.7 is therapeutic Plan: Current Warfarin Dosing As of 09/22/2024 Full warfarin instructions: 7.5 mg every Mon; 5 mg all other days Sent HowGood message Advised patient to continue current weekly dose as noted above Next home INR check scheduled on 10/06/2024 Patient advised to call the PAC with any medication changes, bleeding/bruising concerns, recent changes in vitamin k consumption, if any procedures are coming up, if they have been ill or in the hospital, and if they have missed any doses of warfarin. Jinny Shah [facility] Clinical Pharmacist, Pharmacy Anticoagulation Clinic Pharmacy Anticoagulation Clinic Pager: [phone]. Jinny Shah [facility] 10/06/2024 3:56 PM Signed Patient was due to test INR today. Will continue to monitor for results. Follow up in one week if no results received. Patient's INR Goal range is - 2.0-3.0 PT INR (no units) Date Value 09/16/2021 2.9 09/02/2021 3.2 06/06/2021 2.5 biotel INR Home CoaguChek (no units) Date Value 09/22/2024 2.7 09/06/2024 2.4 08/16/2024 2.0 Patient is in titration phase - No Patient has dosing provided until next INR - Yes Patient is on an injectable anticoagulant - No Jinny Shah RPh Allergies As of Date: 09/22/2024 (No Known Allergies) Date Reviewed: 03/23/2024 Reviewed by: Tra Foss LPN - Fully Assessed Reason for Visit: Anticoagulation Telephone Fu [[id number]] Cmt: Home INR Primary Visit Diagnosis:USP (current) use of anticoagulants [Z79.01] Other Visit Diagnosis:History of DVT (deep vein thrombosis) [Z86.718] Prescriptions as of 10/06/2024 - flecainide (TAMBOCOR) 100 mg tablet Take 1 tablet by mouth two times a day. - atorvastatin (LIPITOR) 20 mg tablet Take 1 tablet by mouth once daily. - warfarin (COUMADIN) 5 mg tablet 7.5 mg every Mon, Fri; 5 mg all other days - sertraline (ZOLOFT) 100 mg tablet Take 1 tablet by mouth once daily. - tiotropium (SPIRIVA WITH HANDIHALER) 18 mcg inhalation capsule Inhale 1 capsule as instructed once daily. Use with handihaler. - albuterol HFA (VENTOLIN HFA) 90 mcg/actuation inhaler Inhale 2 Puffs as instructed every 4 hours as needed for wheezing/shortness of breath. - lisinopril (ZESTRIL) 10 mg tablet Take 1 tablet by mouth once daily. - loperamide HCl (IMODIUM) 2 mg tab Take 1 tablet by mouth as needed. - doxazosin (CARDURA) 1 mg tablet Take 1 tablet by mouth daily at bedtime. - amLODIPine (NORVASC) 5 mg tablet Take 5 mg by mouth once daily. Problem List As Of Date 09/22/2024 Noted Resolved Hyperlipidemia LDL goal <100 [E78.5] 08/26/2006 05/04/2023 GENERALIZED ANXIETY DIS [F41.1] 08/26/2006 ATRIAL FIBRILLATION [I48.91] 01/28/2007 INT HEMORRHOID W/O COMPL [K64.8] Essential hypertension, benign [I10] 02/27/2010 Skin lesion [L98.9] 03/05/2010 12/20/2014 Moderate mitral regurgitation [I34.0] 02/01/2015 Moderate tricuspid regurgitation [I07.1] 02/01/2015 Paroxysmal atrial fibrillation (HCC) [I48.0] 03/19/2015 04/11/2015 USP (current) use of anticoagulants [Z79.*04/11/2015 Episodic lightheadedness [R42] 04/11/2015 01/21/2018 Bilateral edema of lower ext (more content not included)... Normal [facility] CNPNon 09-06-2024 CNPN Telephone (PHAMTE) -------- MILLIWILMER ([id number]) 1940 M Date Time Provider Department 09/06/24 ARABELLA LOPEZ PHAMTE During your visit today, we recorded the following information about you: Arabella Lopez [facility] 09/06/2024 1:[address] PM [address] [facility] Ambulatory Pharmacy Anticoagulation Clinic Anticoagulation Episode Summary Anticoagulation Care Providers Provider Role Specialty Phone number Tien Serrano MD Referring Family Medicine [phone] Wilmer Dian Morley is a 83 year old year old male patient being evaluated today for a Telemanagement visit. Patient is currently on the following anticoagulant(s) Warfarin. Labs PT INR (no units) Date Value 09/16/2021 2.9 09/02/2021 3.2 06/06/2021 2.5 biotel INR Home CoaguChek (no units) Date Value 09/06/2024 2.4 08/16/2024 2.0 08/02/2024 2.0 Hemoglobin (g/dL) Date Value 11/03/2023 13.9 03/14/2021 14.8 Hematocrit (%) Date Value 11/03/2023 42.3 03/14/2021 44.9 Platelet Count (k/uL) Date Value 11/03/2023 162 03/14/2021 191 Creatinine (mg/dL) Date Value 12/28/2023 1.09 11/11/2023 1.23 11/03/2023 1.21 03/14/2021 1.34 09/06/2020 1.27 08/06/2020 1.43 Bilirubin, Total (mg/dL) Date Value 11/03/2023 0.6 03/14/2021 1.1 ALT (U/L) Date Value 11/03/2023 35 03/14/2021 32 AST (U/L) Date Value 11/03/2023 33 03/14/2021 30 CrCl cannot be calculated (Patient's most recent lab result is older than the maximum 180 days allowed.). ALLERGIES No Known Allergies 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: Anticoagulation Episode Summary Current INR goal: 2.0-3.0 Assessment: INR result of 2.4 is therapeutic Plan: Current Warfarin Dosing As of 09/06/2024 Full warfarin instructions: 7.5 mg every Mon; 5 mg all other days Sent HowGood message Advised patient to continue current weekly dose as noted above Next home INR check scheduled on 09/20/2024 Patient advised to call the PAC with any medication changes, bleeding/bruising concerns, recent changes in vitamin k consumption, if any procedures are coming up, if they have been ill or in the hospital, and if they have missed any doses of warfarin. Arabella Lopez RPh Clinical Pharmacist, Pharmacy Anticoagulation Clinic Pharmacy Anticoagulation Clinic Pager: [phone]. Arabella Lopez RPh 09/20/2024 10:55 AM Signed Patient was due to test INR today. Will continue to monitor for results. Follow up in one week if no results received. Patient's INR Goal range is - 2.0-3.0 PT INR (no units) Date Value 09/16/2021 2.9 09/02/2021 3.2 06/06/2021 2.5 biotel INR Home CoaguChek (no units) Date Value 09/06/2024 2.4 08/16/2024 2.0 08/02/2024 2.0 Patient is in titration phase - No Patient has dosing provided until next INR - Yes Patient is on an injectable anticoagulant - No Arabella Lpoez RPh Allergies As of Date: 09/06/2024 (No Known Allergies) Date Reviewed: 03/23/2024 Reviewed by: Tra Foss LPN - Fully Assessed Reason for Visit: Anticoagulation Telephone Fu [148] Cmt: Home INR result Prescriptions as of 09/20/2024 - atorvastatin (LIPITOR) 20 mg tablet Take 1 tablet by mouth once daily. - warfarin (COUMADIN) 5 mg tablet 7.5 mg every Mon, Fri; 5 mg all other days - sertraline (ZOLOFT) 100 mg tablet Take 1 tablet by mouth once daily. - tiotropium (SPIRIVA WITH HANDIHALER) 18 mcg inhalation capsule Inhale 1 capsule as instructed once daily. Use with handihaler. - albuterol HFA (VENTOLIN HFA) 90 mcg/actuation inhaler Inhale 2 Puffs as instructed every 4 hours as needed for wheezing/shortness of breath. - lisinopril (ZESTRIL) 10 mg tablet Take 1 tablet by mouth once daily. - loperamide HCl (IMODIUM) 2 mg tab Take 1 tablet by mouth as needed. - flecainide (TAMBOCOR) 100 mg tablet Take 1 tablet by mouth two times a day. - doxazosin (CARDURA) 1 mg tablet Take 1 tablet by mouth daily at bedtime. - amLODIPine (NORVASC) 5 mg tablet Take 5 mg by mouth once daily. Problem List As Of Date 09/06/2024 Noted Resolved Hyperlipidemia LDL goal <100 [E78.5] 08/26/2006 05/04/2023 GENERALIZED ANXIETY DIS [F41.1] 08/26/2006 ATRIAL FIBRILLATION [I48.91] 01/28/2007 INT HEMORRHOID W/O COMPL [K64.8] Essential hypertension, benign [I10] 02/27/2010 Skin lesion [L98.9] 03/05/2010 12/20/2014 Moderate mitral regurgitation [I34.0] 02/01/2015 Moderate tricuspid regurgitation [I07.1] 02/01/2015 Paroxysmal atrial fibrillation (HCC) [I48.0] 03/19/2015 04/11/2015 USP (current) use of anticoagulants [Z79.*04/11/2015 Episodic lightheadedness [R42] 04/11/2015 01/21/2018 Bilateral edema of lower extremity [R60.0] 04/11/2015 01/10/2016 Venous (peripheral) insufficiency [I87.2] 04/11/2015 History of DVT (deep vein thrombosis) [Z86.718] 02/14/2016 Asymptomatic LV dysfunction [I51.9] 10/28/2016 long term current use of antiarrhythmic medical*10/28/2016 (more content not included)... Normal [facility] -------- WILMER MORLEY ([id number]) 1940 M Date Time Provider Department 08/17/24 GHAZAL BAILEY During your visit today, we recorded the following information about you: Ghazal Bailey [facility] 08/17/2024 8:07 AM Signed [facility] Ambulatory Pharmacy Anticoagulation Clinic Anticoagulation Episode Summary Anticoagulation Care Providers Provider Role Specialty Phone number Tien Serrano MD Referring Family Medicine [phone] Wilmer Morley is a 83 year old year old male patient being evaluated today for a Telemanagement visit. Patient is currently on the following anticoagulant(s) Warfarin. Labs PT INR (no units) Date Value 09/16/2021 2.9 09/02/2021 3.2 06/06/2021 2.5 biotel INR Home CoaguChek (no units) Date Value 08/16/2024 2.0 08/02/2024 2.0 07/15/2024 3.1 Hemoglobin (g/dL) Date Value 11/03/2023 13.9 03/14/2021 14.8 Hematocrit (%) Date Value 11/03/2023 42.3 03/14/2021 44.9 Platelet Count (k/uL) Date Value 11/03/2023 162 03/14/2021 191 Creatinine (mg/dL) Date Value 12/28/2023 1.09 11/11/2023 1.23 11/03/2023 1.21 03/14/2021 1.34 09/06/2020 1.27 08/06/2020 1.43 Bilirubin, Total (mg/dL) Date Value 11/03/2023 0.6 03/14/2021 1.1 ALT (U/L) Date Value 11/03/2023 35 03/14/2021 32 AST (U/L) Date Value 11/03/2023 33 03/14/2021 30 CrCl cannot be calculated (Patient's most recent lab result is older than the maximum 180 days allowed.). ALLERGIES No Known Allergies 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: long term (current) use of anticoagulants Atrial fibrillation, unspecified type (hcc) History of dvt (deep vein thrombosis) Anticoagulation Episode Summary Current INR goal: 2.0-3.0 Assessment: INR result of 2.0 is therapeutic Plan: Current Warfarin Dosing As of 08/17/2024 Full warfarin instructions: 7.5 mg every Mon; 5 mg all other days Sent HowGood message Advised patient to continue current weekly dose as noted above Next home INR check scheduled on 08/31/2024 Patient advised to call the PAC with any medication changes, bleeding/bruising concerns, recent changes in vitamin k consumption, if any procedures are coming up, if they have been ill or in the hospital, and if they have missed any doses of warfarin. Ghazal Bailey [facility] Clinical Pharmacist, Pharmacy Anticoagulation Clinic Pharmacy Anticoagulation Clinic Pager: [phone]. Ghazal Bailey RPh 08/31/2024 2:21 PM Signed Patient was due to test INR today will continue to monitor for results. Follow up in one week if no results received. Patient's INR Goal range is - 2.0-3.0 PT INR (no units) Date Value 09/16/2021 2.9 09/02/2021 3.2 06/06/2021 2.5 biotel INR Home CoaguChek (no units) Date Value 08/16/2024 2.0 08/02/2024 2.0 07/15/2024 3.1 Patient is in titration phase - No Patient has dosing provided until next INR - Yes Patient is on an injectable anticoagulant - No Ghazal Bailey PharmD Pharmacy Anticoagulation Clinic Allergies As of Date: 08/17/2024 (No Known Allergies) Date Reviewed: 03/23/2024 Reviewed by: Tra Foss LPN - Fully Assessed Reason for Visit: Anticoagulation Telephone Fu [148] Cmt: Home INR result Primary Visit Diagnosis:long term (current) use of anticoagulants [Z79.01] Other Visit Diagnoses:ATRIAL FIBRILLATION [I48.91] History of DVT (deep vein thrombosis) [Z86.718] Prescriptions as of 08/31/2024 - atorvastatin (LIPITOR) 20 mg tablet Take 1 tablet by mouth once daily. - warfarin (COUMADIN) 5 mg tablet 7.5 mg every Mon, Fri; 5 mg all other days - sertraline (ZOLOFT) 100 mg tablet Take 1 tablet by mouth once daily. - tiotropium (SPIRIVA WITH HANDIHALER) 18 mcg inhalation capsule Inhale 1 capsule as instructed once daily. Use with handihaler. - albuterol HFA (VENTOLIN HFA) 90 mcg/actuation inhaler Inhale 2 Puffs as instructed every 4 hours as needed for wheezing/shortness of breath. - lisinopril (ZESTRIL) 10 mg tablet Take 1 tablet by mouth once daily. - loperamide HCl (IMODIUM) 2 mg tab Take 1 tablet by mouth as needed. - flecainide (TAMBOCOR) 100 mg tablet Take 1 tablet by mouth two times a day. - doxazosin (CARDURA) 1 mg tablet Take 1 tablet by mouth daily at bedtime. - amLODIPine (NORVASC) 5 mg tablet Take 5 mg by mouth once daily. Problem List As Of Date 08/17/2024 Noted Resolved Hyperlipidemia LDL goal <100 [E78.5] 08/26/2006 05/04/2023 GENERALIZED ANXIETY DIS [F41.1] 08/26/2006 ATRIAL FIBRILLATION [I48.91] 01/28/2007 INT HEMORRHOID W/O COMPL [K64.8] Essential hypertension, benign [I10] 02/27/2010 Skin lesion [L98.9] 03/05/2010 12/20/2014 Moderate mitral regurgitation [I34.0] 02/01/2015 Moderate tricuspid regurgitation [I07.1] 02/01/2015 Paroxysmal atrial fibrillation (HCC) [I48.0] 03/19/2015 04/11/2015 long term (current) use of anticoagulant (more content not included)... Normal [facility] 08-02-2024 [facility] Telephone ([facility]) -------- WILMER MORLEY ([id number]) 1940 M Date Time Provider Department 08/02/24 ARABELLA LOPEZ During your visit today, we recorded the following information about you: Arabella Lopez [facility] 08/02/2024 5:[address] PM [address] [facility] Ambulatory Pharmacy Anticoagulation Clinic Anticoagulation Episode Summary Anticoagulation Care Providers Provider Role Specialty Phone number Tien Serrano MD Referring Family Medicine [phone] Wilmer Morley is a 83 year old year old male patient being evaluated today for a Telemanagement visit. Patient is currently on the following anticoagulant(s) Warfarin. Labs PT INR (no units) Date Value 09/16/2021 2.9 09/02/2021 3.2 06/06/2021 2.5 biotel INR Home CoaguChek (no units) Date Value 08/02/2024 2.0 07/15/2024 3.1 06/29/2024 3.9 Hemoglobin (g/dL) Date Value 11/03/2023 13.9 03/14/2021 14.8 Hematocrit (%) Date Value 11/03/2023 42.3 03/14/2021 44.9 Platelet Count (k/uL) Date Value 11/03/2023 162 03/14/2021 191 Creatinine (mg/dL) Date Value 12/28/2023 1.09 11/11/2023 1.23 11/03/2023 1.21 03/14/2021 1.34 09/06/2020 1.27 08/06/2020 1.43 Bilirubin, Total (mg/dL) Date Value 11/03/2023 0.6 03/14/2021 1.1 ALT (U/L) Date Value 11/03/2023 35 03/14/2021 32 AST (U/L) Date Value 11/03/2023 33 03/14/2021 30 CrCl cannot be calculated (Patient's most recent lab result is older than the maximum 180 days allowed.). ALLERGIES No Known Allergies 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: Anticoagulation Episode Summary Current INR goal: 2.0-3.0 Assessment: INR result of 2.0 is therapeutic Plan: Current Warfarin Dosing As of 08/02/2024 Full warfarin instructions: 7.5 mg every Mon; 5 mg all other days Sent [employer] message Advised patient to continue current weekly dose as noted above Next home INR check scheduled on 08/16/2024 Patient advised to call the PAC with any medication changes, bleeding/bruising concerns, recent changes in vitamin k consumption, if any procedures are coming up, if they have been ill or in the hospital, and if they have missed any doses of warfarin. Arabella Lopez RPh Clinical Pharmacist, Pharmacy Anticoagulation Clinic Pharmacy Antico[facility] Pager: [phone]. Arabella Lopez RPh 08/16/2024 1:41 PM Signed Patient was due to test INR today. Will continue to monitor for results. Follow up in one week if no results received. Patient's INR Goal range is - 2.0-3.0 PT INR (no units) Date Value 09/16/2021 2.9 09/02/2021 3.2 06/06/2021 2.5 biotel INR Home CoaguChek (no units) Date Value 08/02/2024 2.0 07/15/2024 3.1 06/29/2024 3.9 Patient is in titration phase - No Patient has dosing provided until next INR - Yes Patient is on an injectable anticoagulant - No Arabella Lopez RPh Allergies As of Date: 08/02/2024 (No Known Allergies) Date Reviewed: 03/23/2024 Reviewed by: Tra Foss LPN - Fully Assessed Reason for Visit: Anticoagulation Telephone Fu [[id number]] Cmt: Home INR result Prescriptions as of 08/16/2024 - warfarin (COUMADIN) 5 mg tablet 7.5 mg every Mon, Fri; 5 mg all other days - sertraline (ZOLOFT) 100 mg tablet Take 1 tablet by mouth once daily. - tiotropium (SPIRIVA WITH HANDIHALER) 18 mcg inhalation capsule Inhale 1 capsule as instructed once daily. Use with handihaler. - albuterol HFA (VENTOLIN HFA) 90 mcg/actuation inhaler Inhale 2 Puffs as instructed every 4 hours as needed for wheezing/shortness of breath. - lisinopril (ZESTRIL) 10 mg tablet Take 1 tablet by mouth once daily. - loperamide HCl (IMODIUM) 2 mg tab Take 1 tablet by mouth as needed. - flecainide (TAMBOCOR) 100 mg tablet Take 1 tablet by mouth two times a day. - doxazosin (CARDURA) 1 mg tablet Take 1 tablet by mouth daily at bedtime. - atorvastatin (LIPITOR) 20 mg tablet Take 1 tablet by mouth once daily. - amLODIPine (NORVASC) 5 mg tablet Take 5 mg by mouth once daily. Problem List As Of Date 08/02/2024 Noted Resolved Hyperlipidemia LDL goal <100 [E78.5] 08/26/2006 05/04/2023 GENERALIZED ANXIETY DIS [F41.1] 08/26/2006 ATRIAL FIBRILLATION [I48.91] 01/28/2007 INT HEMORRHOID W/O COMPL [K64.8] Essential hypertension, benign [I10] 02/27/2010 Skin lesion [L98.9] 03/05/2010 12/20/2014 Moderate mitral regurgitation [I34.0] 02/01/2015 Moderate tricuspid regurgitation [I07.1] 02/01/2015 Paroxysmal atrial fibrillation (HCC) [I48.0] 03/19/2015 04/11/2015 USP (current) use of anticoagulants [Z79.*04/11/2015 Episodic lightheadedness [R42] 04/11/2015 01/21/2018 Bilateral edema of lower extremity [R60.0] 04/11/2015 01/10/2016 Venous (peripheral) insufficiency [I87.2] 04/11/2015 History of DVT (deep vein thrombosis) [Z86.718] 02/14/2016 Asymptomatic LV dysfunction [I51.9] 10/28/2016 long term current use of antiarrhythmic medical*10/29/19 (more content not included)... Normal [facility] 07-15-2024 [place] Telephone (ZarpoE) -------- WILMER MORLEY ([id number]) 1940 M Date Time Provider Department 07/15/24 ARABELLA LOPEZ During your visit today, we recorded the following information about you: Arabella Lopez [facility] 07/15/2024 4:28 PM S[address] [facility] Ambulatory Pharmacy Anticoagulation Clinic Anticoagulation Episode Summary Anticoagulation Care Providers Provider Role Specialty Phone number Tien Serrano MD Referring Family Medicine [phone] Wilmer Morley is a 83 year old year old male patient being evaluated today for a Telemanagement visit. Patient is currently on the following anticoagulant(s) Warfarin. Labs PT INR (no units) Date Value 09/16/2021 2.9 09/02/2021 3.2 06/06/2021 2.5 biotel INR Home CoaguChek (no units) Date Value 07/15/2024 3.1 06/29/2024 3.9 06/14/2024 3.2 Hemoglobin (g/dL) Date Value 11/03/2023 13.9 03/14/2021 14.8 Hematocrit (%) Date Value 11/03/2023 42.3 03/14/2021 44.9 Platelet Count (k/uL) Date Value 11/03/2023 162 03/14/2021 191 Creatinine (mg/dL) Date Value 12/28/2023 1.09 11/11/2023 1.23 11/03/2023 1.21 03/14/2021 1.34 09/06/2020 1.27 08/06/2020 1.43 Bilirubin, Total (mg/dL) Date Value 11/03/2023 0.6 03/14/2021 1.1 ALT (U/L) Date Value 11/03/2023 35 03/14/2021 32 AST (U/L) Date Value 11/03/2023 33 03/14/2021 30 CrCl cannot be calculated (Patient's most recent lab result is older than the maximum 180 days allowed.). ALLERGIES No Known Allergies 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: Anticoagulation Episode Summary Current INR goal: 2.0-3.0 Assessment: INR result of 3.1 is SUPRAtherapeutic due to: Patient taking incorrect warfarin dose or extra dose(s) Took 7.5 mg last Thursday Plan: Current Warfarin Dosing As of 07/15/2024 Full warfarin instructions: 7.5 mg every Mon; 5 mg all other days Called and spoke to patient/caregiver Advised patient to continue current weekly dose as noted above Next home INR check scheduled on 07/27/2024 Patient verbalizes understanding of the plan. Patient advised to call the PAC with any medication changes, bleeding/bruising concerns, recent changes in vitamin k consumption, if any procedures are coming up, if they have been ill or in the hospital, and if they have missed any doses of warfarin. Arabella Lopez [facility] Clinical Pharmacist, Pharmacy Anticoagulation Clinic Pharmacy Anticoagulation Clinic Pager: [phone]. Ghazal Bailey RPh 07/27/2024 9:12 AM Signed Patient was due to test INR today will continue to monitor for results. Follow up in one week if no results received. Patient's INR Goal range is - 2.0-3.0 INR Home CoaguChek (no units) Date Value 07/15/2024 3.1 06/29/2024 3.9 06/14/2024 3.2 Patient is in titration phase - No Patient has dosing provided until next INR - Yes Patient is on an injectable anticoagulant - No Ghazal Bailey, [place] [facility] Allergies As of Date: 07/15/2024 (No Known Allergies) Date Reviewed: 03/23/2024 Reviewed by: Tra Foss LPN - Fully Assessed Reason for Visit: Anticoagulation Telephone Fu [[id number]] Cmt: Home INR result Prescriptions as of 07/27/2024 - warfarin (COUMADIN) 5 mg tablet 7.5 mg every Mon, Fri; 5 mg all other days - sertraline (ZOLOFT) 100 mg tablet Take 1 tablet by mouth once daily. - tiotropium (SPIRIVA WITH HANDIHALER) 18 mcg inhalation capsule Inhale 1 capsule as instructed once daily. Use with handihaler. - albuterol HFA (VENTOLIN HFA) 90 mcg/actuation inhaler Inhale 2 Puffs as instructed every 4 hours as needed for wheezing/shortness of breath. - lisinopril (ZESTRIL) 10 mg tablet Take 1 tablet by mouth once daily. - loperamide HCl (IMODIUM) 2 mg tab Take 1 tablet by mouth as needed. - flecainide (TAMBOCOR) 100 mg tablet Take 1 tablet by mouth two times a day. - doxazosin (CARDURA) 1 mg tablet Take 1 tablet by mouth daily at bedtime. - atorvastatin (LIPITOR) 20 mg tablet Take 1 tablet by mouth once daily. - amLODIPine (NORVASC) 5 mg tablet Take 5 mg by mouth once daily. Problem List As Of Date 07/15/2024 Noted Resolved Hyperlipidemia LDL goal <100 [E78.5] 08/26/2006 05/04/2023 GENERALIZED ANXIETY DIS [F41.1] 08/26/2006 ATRIAL FIBRILLATION [I48.91] 01/28/2007 INT HEMORRHOID W/O COMPL [K64.8] Essential hypertension, benign [I10] 02/27/2010 Skin lesion [L98.9] 03/05/2010 12/20/2014 Moderate mitral regurgitation [I34.0] 02/01/2015 Moderate tricuspid regurgitation [I07.1] 02/01/2015 Paroxysmal atrial fibrillation (HCC) [I48.0] 03/19/2015 04/11/2015 long term (current) use of anticoagulants [Z79.*04/11/2015 Episodic lightheadedness [R42] 04/11/2015 01/21/2018 Bilateral edema of lower extremity [R60.0] 04/11/2015 01/10/2016 Venous (peripheral) insufficiency [I87.2] 04/11/2015 History of DVT (deep vein thrombosis) [Z86.718] (more content not included)... [facility] WILMER MORLEY ([id number]) 1940 M Date Time Provider Department 06/29/24 GHAZAL BAILEY During your visit today, we recorded the following information about you: Ghazal Bailey RPh 06/29/2024 2:[address] PM [address] [facility] Ambulatory Pharmacy Anticoagulation Clinic Anticoagulation Episode Summary Anticoagulation Care Providers Provider Role Specialty Phone number Tien Serrano MD Referring Family Medicine [phone] Wilmer Morley is a 83 year old year old male patient being evaluated today for a Telemanagement visit. Patient is currently on the following anticoagulant(s) Warfarin. Labs PT INR (no units) Date Value 09/16/2021 2.9 09/02/2021 3.2 06/06/2021 2.5 biotel INR Home CoaguChek (no units) Date Value 06/29/2024 3.9 06/14/2024 3.2 05/23/2024 2.3 Hemoglobin (g/dL) Date Value 11/03/2023 13.9 03/14/2021 14.8 Hematocrit (%) Date Value 11/03/2023 42.3 03/14/2021 44.9 Platelet Count (k/uL) Date Value 11/03/2023 162 03/14/2021 191 Creatinine (mg/dL) Date Value 12/28/2023 1.09 11/11/2023 1.23 11/03/2023 1.21 03/14/2021 1.34 09/06/2020 1.27 08/06/2020 1.43 Bilirubin, Total (mg/dL) Date Value 11/03/2023 0.6 03/14/2021 1.1 ALT (U/L) Date Value 11/03/2023 35 03/14/2021 32 AST (U/L) Date Value 11/03/2023 33 03/14/2021 30 CrCl cannot be calculated (Patient's most recent lab result is older than the maximum 180 days allowed.). ALLERGIES No Known Allergies 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: USP (current) use of anticoagulants Atrial fibrillation, unspecified type (hcc) History of dvt (deep vein thrombosis) Anticoagulation Episode Summary Current INR goal: 2.0-3.0 Assessment: INR result of 3.9 is SUPRAtherapeutic due to: No obvious cause (patient denies medication change, grapefruit/cranberry/pom egranate/barbara ingestion, OTC medication use, change in herbal/nutritional supplement, accidental overdosage, change in warfarin tablet shape or color, change in vit K consumption, recent illness (NVD, fever), any changes to general health, changes in tobacco use, or EtOH consumption) Plan: Current Warfarin Dosing As of 06/29/2024 Full warfarin instructions: 06/29: Hold; Otherwise 7.5 mg every Mon; 5 mg all other days Called and spoke to patient/caregiver Advised patient to hold 1 dose then decrease current regimen Next home INR check scheduled on 07/13/2024 Patient verbalizes understanding of the plan. Patient denies need for refills. Patient advised to call the PAC with any medication changes, bleeding/bruising concerns, recent changes in vitamin k consumption, if any procedures are coming up, if they have been ill or in the hospital, and if they have missed any doses of warfarin. Ghazal Bailey RPh Clinical Pharmacist, Pharmacy Anticoagulation Clinic Pharmacy Anticoagulation Clinic Pager: [phone]. Ghazal Bailey RPh 07/13/2024 8:57 AM Signed Patient was due to test INR today will continue to monitor for results. Follow up in one week if no results received. Patient's INR Goal range is - 2.0-3.0 PT INR (no units) Date Value 09/16/2021 2.9 09/02/2021 3.2 06/06/2021 2.5 biotel INR Home CoaguChek (no units) Date Value 06/29/2024 3.9 06/14/2024 3.2 05/23/2024 2.3 Patient is in titration phase - No Patient has dosing provided until next INR - Yes Patient is on an injectable anticoagulant - No Ghazal Bailey PharmD Pharmacy Anticoagulation Clinic Allergies As of Date: 06/29/2024 (No Known Allergies) Date Reviewed: 03/23/2024 Reviewed by: Tra Foss LPN - Fully Assessed Reason for Visit: Anticoagulation Telephone Fu [[id number]] Cmt: Home INR result Primary Visit Diagnosis:long term (current) use of anticoagulants [Z79.01] Other Visit Diagnoses:ATRIAL FIBRILLATION [I48.91] History of DVT (deep vein thrombosis) [Z86.718] Prescriptions as of 07/13/2024 - warfarin (COUMADIN) 5 mg tablet 7.5 mg every Mon, Fri; 5 mg all other days - sertraline (ZOLOFT) 100 mg tablet Take 1 tablet by mouth once daily. - tiotropium (SPIRIVA WITH HANDIHALER) 18 mcg inhalation capsule Inhale 1 capsule as instructed once daily. Use with handihaler. - albuterol HFA (VENTOLIN HFA) 90 mcg/actuation inhaler Inhale 2 Puffs as instructed every 4 hours as needed for wheezing/shortness of breath. - lisinopril (ZESTRIL) 10 mg tablet Take 1 tablet by mouth once daily. - loperamide HCl (IMODIUM) 2 mg tab Take 1 tablet by mouth as needed. - flecainide (TAMBOCOR) 100 mg tablet Take 1 tablet by mouth two times a day. - doxazosin (CARDURA) 1 mg tablet Take 1 tablet by mouth daily at bedtime. - atorvastatin (LIPITOR) 20 mg tablet Take 1 tablet by mouth once daily. - amLODIPine (NORVASC) 5 mg tablet Take 5 mg by mouth once daily. Problem List As Of Date 06/29/2024 Not (more content not included)... [facility] WILMER MORLEY ([id number]) 1940 M Date Time Provider Department 06/14/24 ARABELLA LOPEZ During your visit today, we recorded the following information about you: Arabella Lopez RPh 06/14/2024 2:04 PM Signed [facility] Ambulatory Pharmacy Anticoagulation Clinic Anticoagulation Episode Summary Anticoagulation Care Providers Provider Role Specialty Phone number Tien Serrano MD Referring Family Medicine [phone] Wilmer Johnsonaffey is a 83 year old year old male patient being evaluated today for a Telemanagement visit. Patient is currently on the following anticoagulant(s) Warfarin. Labs PT INR (no units) Date Value 09/16/2021 2.9 09/02/2021 3.2 06/06/2021 2.5 biotel INR Home CoaguChek (no units) Date Value 06/14/2024 3.2 05/23/2024 2.3 05/08/2024 2.8 Hemoglobin (g/dL) Date Value 11/03/2023 13.9 03/14/2021 14.8 Hematocrit (%) Date Value 11/03/2023 42.3 03/14/2021 44.9 Platelet Count (k/uL) Date Value 11/03/2023 162 03/14/2021 191 Creatinine (mg/dL) Date Value 12/28/2023 1.09 11/11/2023 1.23 11/03/2023 1.21 03/14/2021 1.34 09/06/2020 1.27 08/06/2020 1.43 Bilirubin, Total (mg/dL) Date Value 11/03/2023 0.6 03/14/2021 1.1 ALT (U/L) Date Value 11/03/2023 35 03/14/2021 32 AST (U/L) Date Value 11/03/2023 33 03/14/2021 30 Estimated Creatinine Clearance: 61.5 mL/min (based on SCr of 1.09 mg/dL). ALLERGIES No Known Allergies 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: Anticoagulation Episode Summary Current INR goal: 2.0-3.0 Assessment: INR result of 3.2 is SUPRAtherapeutic due to: Decreased vitamin k intake Plan: Current Warfarin Dosing As of 06/14/2024 Full warfarin instructions: 06/14: 2.5 mg; Otherwise 7.5 mg every Mon, Fri; 5 mg all other days Called and spoke to patient/caregiver Advised patient to continue current weekly dose as noted above and eat a serving of Vit K today and tomorrow. Next home INR check scheduled on 06/28/2024 Patient verbalizes understanding of the plan. Patient advised to call the PAC with any medication changes, bleeding/bruising concerns, recent changes in vitamin k consumption, if any procedures are coming up, if they have been ill or in the hospital, and if they have missed any doses of warfarin. Arabella Lopez RPh Clinical Pharmacist, Pharmacy Anticoagulation Clinic Pharmacy Anticoagulation Clinic Pager: [phone]. Arabella Lopez RPh 06/28/2024 12:05 PM Signed Patient was due to test INR today. Will continue to monitor for results. Follow up in one week if no results received. Patient's INR Goal range is - 2.0-3.0 PT INR (no units) Date Value 09/16/2021 2.9 09/02/2021 3.2 06/06/2021 2.5 biotel INR Home CoaguChek (no units) Date Value 06/14/2024 3.2 05/23/2024 2.3 05/08/2024 2.8 Patient is in titration phase - No Patient has dosing provided until next INR - Yes Patient is on an injectable anticoagulant - No Arabella Lopez RPh Allergies As of Date: 06/14/2024 (No Known Allergies) Date Reviewed: 03/23/2024 Reviewed by: Tra Foss LPN - Fully Assessed Prescriptions as of 06/28/2024 - warfarin (COUMADIN) 5 mg tablet 7.5 mg every Mon, Fri; 5 mg all other days - sertraline (ZOLOFT) 100 mg tablet Take 1 tablet by mouth once daily. - tiotropium (SPIRIVA WITH HANDIHALER) 18 mcg inhalation capsule Inhale 1 capsule as instructed once daily. Use with handihaler. - albuterol HFA (VENTOLIN HFA) 90 mcg/actuation inhaler Inhale 2 Puffs as instructed every 4 hours as needed for wheezing/shortness of breath. - lisinopril (ZESTRIL) 10 mg tablet Take 1 tablet by mouth once daily. - loperamide HCl (IMODIUM) 2 mg tab Take 1 tablet by mouth as needed. - flecainide (TAMBOCOR) 100 mg tablet Take 1 tablet by mouth two times a day. - doxazosin (CARDURA) 1 mg tablet Take 1 tablet by mouth daily at bedtime. - atorvastatin (LIPITOR) 20 mg tablet Take 1 tablet by mouth once daily. - amLODIPine (NORVASC) 5 mg tablet Take 5 mg by mouth once daily. Problem List As Of Date 06/14/2024 Noted Resolved Hyperlipidemia LDL goal <100 [E78.5] 08/26/2006 05/04/2023 GENERALIZED ANXIETY DIS [F41.1] 08/26/2006 ATRIAL FIBRILLATION [I48.91] 01/28/2007 INT HEMORRHOID W/O COMPL [K64.8] Essential hypertension, benign [I10] 02/27/2010 Skin lesion [L98.9] 03/05/2010 12/20/2014 Moderate mitral regurgitation [I34.0] 02/01/2015 Moderate tricuspid regurgitation [I07.1] 02/01/2015 Paroxysmal atrial fibrillation (HCC) [I48.0] 03/19/2015 04/11/2015 USP (current) use of anticoagulants [Z79.*04/11/2015 Episodic lightheadedness [R42] 04/11/2015 01/21/2018 Bilateral edema of lower extremity [R60.0] 04/11/2015 01/10/2016 Venous (peripheral) insufficiency [I87.2] 04/11/2015 History of DVT (deep vein thrombosis) [Z86.718] 02/14/2016 Asymptomatic LV dysfunction [I51.9] (more content not included)... Normal [facility] 05-24-2024 C[facility] Telephone (PHAMTE) -------- WILMER MORLEY ([id number]) 1940 M Date Time Provider Department 05/24/24 ARABELLA LOPEZ During your visit today, we recorded the following information about you: Arabella Lopez [facility] 05/24/2024 8:37 AM Signed [facility] Ambulatory Pharmacy Anticoagulation Clinic Anticoagulation Episode Summary Anticoagulation Care Providers Provider Role Specialty Phone number Tien Serrano MD Referring Family Medicine [phone] Wilmer Maxwelley is a 83 year old year old male patient being evaluated today for a Telemanagement visit. Patient is currently on the following anticoagulant(s) Warfarin. Labs PT INR (no units) Date Value 09/16/2021 2.9 09/02/2021 3.2 06/06/2021 2.5 biotel INR Home CoaguChek (no units) Date Value 05/23/2024 2.3 05/08/2024 2.8 04/20/2024 2.0 Hemoglobin (g/dL) Date Value 11/03/2023 13.9 03/14/2021 14.8 Hematocrit (%) Date Value 11/03/2023 42.3 03/14/2021 44.9 Platelet Count (k/uL) Date Value 11/03/2023 162 03/14/2021 191 Creatinine (mg/dL) Date Value 12/28/2023 1.09 11/11/2023 1.23 11/03/2023 1.21 03/14/2021 1.34 09/06/2020 1.27 08/06/2020 1.43 Bilirubin, Total (mg/dL) Date Value 11/03/2023 0.6 03/14/2021 1.1 ALT (U/L) Date Value 11/03/2023 35 03/14/2021 32 AST (U/L) Date Value 11/03/2023 33 03/14/2021 30 Estimated Creatinine Clearance: 61.5 mL/min (based on SCr of 1.09 mg/dL). ALLERGIES No Known Allergies 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: Anticoagulation Episode Summary Current INR goal: 2.0-3.0 Assessment: INR result of 2.3 is therapeutic Plan: Current Warfarin Dosing As of 05/24/2024 Full warfarin instructions: 7.5 mg every Mon, Fri; 5 mg all other days Called and spoke to patient/caregiver spouse Advised patient to continue current weekly dose as noted above Next home INR check scheduled on 06/14/2024 Patient's caregiver verbalizes understanding of the plan. Patient advised to call the PAC with any medication changes, bleeding/bruising concerns, recent changes in vitamin k consumption, if any procedures are coming up, if they have been ill or in the hospital, and if they have missed any doses of warfarin. Arabella Lopez RPh Clinical Pharmacist, Pharmacy Anticoagulation Clinic Pharmacy Anticoagulation Clinic Pager: [phone]. Arabella Lopez RPh 06/14/2024 11:01 AM Signed Patient was due to test INR today. Will continue to monitor for results. Follow up in one week if no results received. Patient's INR Goal range is - 2.0-3.0 PT INR (no units) Date Value 09/16/2021 2.9 09/02/2021 3.2 06/06/2021 2.5 biotel INR Home CoaguChek (no units) Date Value 05/23/2024 2.3 05/08/2024 2.8 04/20/2024 2.0 Patient is in titration phase - No Patient has dosing provided until next INR - Yes Patient is on an injectable anticoagulant - No Arabella Lopez RPh Allergies As of Date: 05/24/2024 (No Known Allergies) Date Reviewed: 03/23/2024 Reviewed by: Tra Foss LPN - Fully Assessed Reason for Visit: Anticoagulation Telephone Fu [[id number]] Cmt: Home INR result Prescriptions as of 06/14/2024 - sertraline (ZOLOFT) 100 mg tablet Take 1 tablet by mouth once daily. - warfarin (COUMADIN) 5 mg tablet 7.5 mg every Mon, Fri; 5 mg all other days - tiotropium (SPIRIVA WITH HANDIHALER) 18 mcg inhalation capsule Inhale 1 capsule as instructed once daily. Use with handihaler. - albuterol HFA (VENTOLIN HFA) 90 mcg/actuation inhaler Inhale 2 Puffs as instructed every 4 hours as needed for wheezing/shortness of breath. - lisinopril (ZESTRIL) 10 mg tablet Take 1 tablet by mouth once daily. - loperamide HCl (IMODIUM) 2 mg tab Take 1 tablet by mouth as needed. - flecainide (TAMBOCOR) 100 mg tablet Take 1 tablet by mouth two times a day. - doxazosin (CARDURA) 1 mg tablet Take 1 tablet by mouth daily at bedtime. - atorvastatin (LIPITOR) 20 mg tablet Take 1 tablet by mouth once daily. - amLODIPine (NORVASC) 5 mg tablet Take 5 mg by mouth once daily. Problem List As Of Date 05/24/2024 Noted Resolved Hyperlipidemia LDL goal <100 [E78.5] 08/26/2006 05/04/2023 GENERALIZED ANXIETY DIS [F41.1] 08/26/2006 ATRIAL FIBRILLATION [I48.91] 01/28/2007 INT HEMORRHOID W/O COMPL [K64.8] Essential hypertension, benign [I10] 02/27/2010 Skin lesion [L98.9] 03/05/2010 12/20/2014 Moderate mitral regurgitation [I34.0] 02/01/2015 Moderate tricuspid regurgitation [I07.1] 02/01/2015 Paroxysmal atrial fibrillation (HCC) [I48.0] 03/19/2015 04/11/2015 USP (current) use of anticoagulants [Z79.*04/11/2015 Episodic lightheadedness [R42] 04/11/2015 01/21/2018 Bilateral edema of lower extremity [R60.0] 04/11/2015 01/10/2016 Venous (peripheral) insufficiency [I87.2] 04/11/2015 History of DVT (deep vein thrombosis) [Z86.718] 02/14/2016 Asymptomatic LV dysfunction [I51.9] 10/28/2016 (more content not included)... Normal [facility] CNPNon 05-09-2024 CNPN Telephone (ELIZABETHMTE) -------- WILMER MORLEY ([id number]) 1940 M Date Time Provider Department 05/09/24 NAMITA GEE During your visit today, we recorded the following information about you: Namita Gee RPh 05/09/2024 7:07 AM Signed [facility] Ambulatory Pharmacy Anticoagulation Clinic Anticoagulation Episode Summary Anticoagulation Care Providers Provider Role Specialty Phone number Tien Serrano MD Referring Family Medicine [phone] Wilmer Johnsonaffey is a 83 year old year old male patient being evaluated today for a Telemanagement visit. Patient is currently on the following anticoagulant(s) Warfarin. Labs PT INR (no units) Date Value 09/16/2021 2.9 09/02/2021 3.2 06/06/2021 2.5 biotel INR Home CoaguChek (no units) Date Value 05/08/2024 2.8 04/20/2024 2.0 03/31/2024 2.6 Hemoglobin (g/dL) Date Value 11/03/2023 13.9 03/14/2021 14.8 Hematocrit (%) Date Value 11/03/2023 42.3 03/14/2021 44.9 Platelet Count (k/uL) Date Value 11/03/2023 162 03/14/2021 191 Creatinine (mg/dL) Date Value 12/28/2023 1.09 11/11/2023 1.23 11/03/2023 1.21 03/14/2021 1.34 09/06/2020 1.27 08/06/2020 1.43 Bilirubin, Total (mg/dL) Date Value 11/03/2023 0.6 03/14/2021 1.1 ALT (U/L) Date Value 11/03/2023 35 03/14/2021 32 AST (U/L) Date Value 11/03/2023 33 03/14/2021 30 Estimated Creatinine Clearance: 61.5 mL/min (based on SCr of 1.09 mg/dL). ALLERGIES No Known Allergies 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: Anticoagulation Episode Summary Current INR goal: 2.0-3.0 Assessment: INR result of 2.8 is therapeutic Plan: Current Warfarin Dosing As of 05/09/2024 Full warfarin instructions: 7.5 mg every Mon, Fri; 5 mg all other days Sent [employer] message Advised patient to continue current weekly dose as noted above Next INR check due on 05/23/2024 Namita Gee [facility] Clinical Pharmacist, Pharmacy [facility] Pager: [phone]. Arabella Lopez RPh 05/23/2024 8:05 AM Signed Patient was due to test INR today. Will continue to monitor for results. Follow up in one week if no results received. Arabella Lopez RPh Allergies As of Date: 05/09/2024 (No Known Allergies) Date Reviewed: 03/23/2024 Reviewed by: Tra Foss LPN - Fully Assessed Reason for Visit: Anticoagulation Telephone Fu [148] Cmt: Home INR Result Prescriptions as of 05/23/2024 - warfarin (COUMADIN) 5 mg tablet 7.5 mg every Mon, Fri; 5 mg all other days - tiotropium (SPIRIVA WITH HANDIHALER) 18 mcg inhalation capsule Inhale 1 capsule as instructed once daily. Use with handihaler. - albuterol HFA (VENTOLIN HFA) 90 mcg/actuation inhaler Inhale 2 Puffs as instructed every 4 hours as needed for wheezing/shortness of breath. - lisinopril (ZESTRIL) 10 mg tablet Take 1 tablet by mouth once daily. - loperamide HCl (IMODIUM) 2 mg tab Take 1 tablet by mouth as needed. - flecainide (TAMBOCOR) 100 mg tablet Take 1 tablet by mouth two times a day. - doxazosin (CARDURA) 1 mg tablet Take 1 tablet by mouth daily at bedtime. - atorvastatin (LIPITOR) 20 mg tablet Take 1 tablet by mouth once daily. - amLODIPine (NORVASC) 5 mg tablet Take 5 mg by mouth once daily. - sertraline (ZOLOFT) 100 mg tablet Take 1 tablet by mouth once daily. Problem List As Of Date 05/09/2024 Noted Resolved Hyperlipidemia LDL goal <100 [E78.5] 08/26/2006 05/04/2023 GENERALIZED ANXIETY DIS [F41.1] 08/26/2006 ATRIAL FIBRILLATION [I48.91] 01/28/2007 INT HEMORRHOID W/O COMPL [K64.8] Essential hypertension, benign [I10] 02/27/2010 Skin lesion [L98.9] 03/05/2010 12/20/2014 Moderate mitral regurgitation [I34.0] 02/01/2015 Moderate tricuspid regurgitation [I07.1] 02/01/2015 Paroxysmal atrial fibrillation (HCC) [I48.0] 03/19/2015 04/11/2015 long term (current) use of anticoagulants [Z79.*04/11/2015 Episodic lightheadedness [R42] 04/11/2015 01/21/2018 Bilateral edema of lower extremity [R60.0] 04/11/2015 01/10/2016 Venous (peripheral) insufficiency [I87.2] 04/11/2015 History of DVT (deep vein thrombosis) [Z86.718] 02/14/2016 Asymptomatic LV dysfunction [I51.9] 10/28/2016 long term current use of antiarrhythmic medical*10/28/2016 Change in bowel movement [R19.8] 01/21/2018 03/14/2021 Stage 3a chronic kidney disease (HCC) [N18.31] 04/08/2018 Hyperglycemia [R73.9] 03/14/2021 Hypertensive kidney disease with stage 3a chron*11/06/2021 10/31/2022 Hx of skin cancer, basal cell [Z85.828] 11/08/2021 Lightheaded [R42] 02/02/2024 Benign paroxysmal positional vertigo of right e*02/02/2024 Chronic obstructive pulmonary disease (HCC) [J4*02/12/2024 Encounter Status:Closed by NAMITA GEE on 05/09/[address] [facility] CNOVon 05-02-2024 CNOV Office Visit (FAMPWS ) -------- WILMER MORLEY ([id number]) 1940 M Date Time Provider Department 05/02/24 3:20 PM [facility] During your visit today, we recorded the following information about you: Pulse Blood pressure Weight 49/minute 122/62 98.4 kg Tien Serrano MD 05/02/2024 4:07 PM Signed Patient presents with: Follow Up HPI: Patient presents today for office visit for followed up. Slight improvement with inhaler and breathing. Offered pulmonary. He overall feels things are improving enough that he is ok. No chest pain or shortness of breath. No cough Has rare sputum. Improved balance since therapy. Has also made adjustments to how he does things. Doing exercises that was given in therapy but could do them more often. See Katy's last note, copied and pasted. : He had PFTs completed, which showed. IMPRESSION: Spirometry indicates moderate obstruction. Positive bronchodilator response. Lung volumes (FRC and/or RV) are elevated indicating hyperinflation and air trapping He was started on spiriva and albuterol. Has noticed maybe a little better. Gets winded with activity, so going to try using the inhaler before activity to see if that helps prevent the SOB with exacerbation. He has problems with IBS. He currently takes 1/2 tab of an imodium daily. He does notice that symptoms have gotten a little worse as far as urgency after he eats. No hematochezia/melena. Questions if okay to increase the imodium to a full tablet daily. Note was copied and pasted, without alteration from: my previous ov: ollowed up with PT for some balance concerns. Saw PT on 02/02/24. Nothing found inner ear. Plan is for balance training. To complete about 6 sessions. Will continue with home exercises. Denies dizziness. States nothing spins. Refers to feeling like he's had too much to drink. Has been monitoring his BP and HR. Hr often in the 50's which we discussed can be a normal finding. His slipman felt his symptoms were due to deconditioning. No headache, numbness or weakness. No vision or speech issues. Has not yet started back at [employer]. Trying to walk in his neighborhood. Still gets short of breath. Rare cough. No fever. Consider chest x-ray and PFT MEDICATIONS: Current Outpatient Medications Medication Sig warfarin (COUMADIN) 5 mg tablet 7.5 mg every Mon, Fri; 5 mg all other days tiotropium (SPIRIVA WITH HANDIHALER) 18 mcg inhalation capsule Inhale 1 capsule as instructed once daily. Use with handihaler. albuterol HFA (VENTOLIN HFA) 90 mcg/actuation inhaler Inhale 2 Puffs as instructed every 4 hours as needed for wheezing/shortness of breath. lisinopril (ZESTRIL) 10 mg tablet Take 1 tablet by mouth once daily. loperamide HCl (IMODIUM) 2 mg tab Take 1 tablet by mouth as needed. flecainide (TAMBOCOR) 100 mg tablet Take 1 tablet by mouth two times a day. doxazosin (CARDURA) 1 mg tablet Take 1 tablet by mouth daily at bedtime. atorvastatin (LIPITOR) 20 mg tablet Take 1 tablet by mouth once daily. amLODIPine (NORVASC) 5 mg tablet Take 5 mg by mouth once daily. sertraline (ZOLOFT) 100 mg tablet Take 1 tablet by mouth once daily. No current facility-administered medications for this visit. 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 Benign neoplasm of colon CKD (chronic kidney disease), stage III (HCC) 04/08/2018 Diverticulosis of colon (without mention of hemorrhage) Essential hypertension, benign 02/27/2010 Facial basal cell cancer 2009 Internal hemorrhoids without mention of complication Other acute embolism veins Other and unspecified hyperlipidemia hypertriglyeridemia Personal history of colonic polyps PAST SURGICAL HISTORY Procedure Laterality Date CATARACT EXTRACTION HX Left CATARACT SURGERY, COMPLEX 2009 R eye COLONOSCOPY FLX DX W/COLLJ SPEC WHEN PFRMD 08/05/2000 Colonoscopy COLONOSCOPY FLX DX W/COLLJ SPEC WHEN PFRMD 11/02/2002 Colonoscopy COLONOSCOPY FLX DX W/COLLJ SPEC WHEN PFRMD 01/29/2009 COLONOSCOPY FLX DX W/COLLJ SPEC WHEN PFRMD 02/24/2014 Colonoscopy COLONOSCOPY FLX DX W/COLLJ SPEC WHEN PFRMD 03/09/2018 [facility] ESOPHAGOGASTRODUODENOSCO PY TRANSORAL DIAGNOSTIC N/A 08/16/2020 [facility] PAST SURGICAL HISTORY OF 2010 basal cell to right above upper lip FAMILY HISTORY Problem Relation Age of Onset Heart Father CHF Heart Mother CHF Heart Brother [place] - rheumatic fever Cancer Brother gastric Asthma Sister Social History Tobacco Use Smoking status: Former Current packs/day: 0.00 Types: Cigarettes Start date: 02/24/2010 Quit date: 02/24/2011 Years since quittin.1 Smokeless tobacco: Never Substance Use Topics Alcohol use: Yes Alcohol/week: 2 (more content not included)... Normal [facility] Chris 04-20-2024 [facility] Telephone (LEANNE) -------- WILMER MORLEY ([id number]) 1940 M Date Time Provider Department 04/20/24 GHAZAL BAILEY During your visit today, we recorded the following information about you: Ghazal Bailey RPh 04/20/2024 2:[address] [facility] Ambulatory Pharmacy Anticoagulation Clinic Anticoagulation Episode Summary Anticoagulation Care Providers Provider Role Specialty Phone number Tien Serrano MD Referring Family Medicine [phone] Wilmer Morley is a 83 year old year old male patient being evaluated today for a Telemanagement visit. Patient is currently on the following anticoagulant(s) Warfarin. Labs PT INR (no units) Date Value 09/16/2021 2.9 09/02/2021 3.2 06/06/2021 2.5 biotel INR Home CoaguChek (no units) Date Value 04/20/2024 2.0 03/31/2024 2.6 03/16/2024 2.6 Hemoglobin (g/dL) Date Value 11/03/2023 13.9 03/14/2021 14.8 Hematocrit (%) Date Value 11/03/2023 42.3 03/14/2021 44.9 Platelet Count (k/uL) Date Value 11/03/2023 162 03/14/2021 191 Creatinine (mg/dL) Date Value 12/28/2023 1.09 11/11/2023 1.23 11/03/2023 1.21 03/14/2021 1.34 09/06/2020 1.27 08/06/2020 1.43 Bilirubin, Total (mg/dL) Date Value 11/03/2023 0.6 03/14/2021 1.1 ALT (U/L) Date Value 11/03/2023 35 03/14/2021 32 AST (U/L) Date Value 11/03/2023 33 03/14/2021 30 Estimated Creatinine Clearance: 60.4 mL/min (based on SCr of 1.09 mg/dL). ALLERGIES No Known Allergies 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: USP (current) use of anticoagulants Atrial fibrillation, unspecified type (hcc) History of dvt (deep vein thrombosis) Anticoagulation Episode Summary Current INR goal: 2.0-3.0 Assessment: INR result of 2.0 is therapeutic Plan: Current Warfarin Dosing As of 04/20/2024 Full warfarin instructions: 7.5 mg every Mon, Fri; 5 mg all other days Sent HowGood message Advised patient to continue current weekly dose as noted above Next home INR check scheduled on 05/04/2024 Patient advised to call the PAC with any medication changes, bleeding/bruising concerns, recent changes in vitamin k consumption, if any procedures are coming up, if they have been ill or in the hospital, and if they have missed any doses of warfarin. Ghazal Bailey [facility] Clinical Pharmacist, Pharmacy Anticoagulation Clinic Pharmacy Anticoagulation Clinic Pager: [phone]. Ghazal Bailey RPh 05/04/2024 9:50 AM Signed Patient was due to test INR today will continue to monitor for results. 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:long term (current) use of anticoagulants [Z79.01] Other Visit Diagnoses:ATRIAL FIBRILLATION [I48.91] History of DVT (deep vein thrombosis) [Z86.718] Prescriptions as of 05/04/2024 - warfarin (COUMADIN) 5 mg tablet 7.5 mg every Mon, Fri; 5 mg all other days - tiotropium (SPIRIVA WITH HANDIHALER) 18 mcg inhalation capsule Inhale 1 capsule as instructed once daily. Use with handihaler. - albuterol HFA (VENTOLIN HFA) 90 mcg/actuation inhaler Inhale 2 Puffs as instructed every 4 hours as needed for wheezing/shortness of breath. - lisinopril (ZESTRIL) 10 mg tablet Take 1 tablet by mouth once daily. - loperamide HCl (IMODIUM) 2 mg tab Take 1 tablet by mouth as needed. - flecainide (TAMBOCOR) 100 mg tablet Take 1 tablet by mouth two times a day. - doxazosin (CARDURA) 1 mg tablet Take 1 tablet by mouth daily at bedtime. - atorvastatin (LIPITOR) 20 mg tablet Take 1 tablet by mouth once daily. - amLODIPine (NORVASC) 5 mg tablet Take 5 mg by mouth once daily. - sertraline (ZOLOFT) 100 mg tablet Take 1 tablet by mouth once daily. Problem List As Of Date 04/20/2024 Noted Resolved Hyperlipidemia LDL goal <100 [E78.5] 08/26/2006 05/04/2023 GENERALIZED ANXIETY DIS [F41.1] 08/26/2006 ATRIAL FIBRILLATION [I48.91] 01/28/2007 INT HEMORRHOID W/O COMPL [K64.8] Essential hypertension, benign [I10] 02/27/2010 Skin lesion [L98.9] 03/05/2010 12/20/2014 Moderate mitral regurgitation [I34.0] 02/01/2015 Moderate tricuspid regurgitation [I07.1] 02/01/2015 Paroxysmal atrial fibrillation (HCC) [I48.0] 03/19/2015 04/11/2015 USP (current) use of anticoagulants [Z79.*04/11/2015 Episodic lightheadedness [R42] 04/11/2015 01/21/2018 Bilateral edema of lower extremity [R60.0] 04/11/2015 01/10/2016 Venous (peripheral) insufficiency [I87.2] 04/11/2015 History of DVT (deep vein thrombosis) [Z86.718] 02/14/2016 Asymptomatic LV dysfunction [I51.9] 10/28/2016 long term current use of antiarrhythmic medical*10/28/2016 Change in bowel movement [R19.8] 01/21/2018 03/14/2021 Stage 3a (more content not included)... [facility] WILMER MORLEY ([id number]) 1940 M Date Time Provider Department 03/31/24 JINNY SHAH During your visit today, we recorded the following information about you: Jinny Shah [facility] 03/31/2024 5:19 PM S[address] [facility] Ambulatory Pharmacy Anticoagulation Clinic Anticoagulation Episode Summary Anticoagulation Care Providers Provider Role Specialty Phone number Tien Serrano MD Referring Family Medicine [phone] Wilmer Morley is a 83 year old year old male patient being evaluated today for a Telemanagement visit. Patient is currently on the following anticoagulant(s) Warfarin. Labs PT INR (no units) Date Value 09/16/2021 2.9 09/02/2021 3.2 06/06/2021 2.5 biotel INR Home CoaguChek (no units) Date Value 03/31/2024 2.6 03/16/2024 2.6 03/02/2024 2.3 Hemoglobin (g/dL) Date Value 11/03/2023 13.9 03/14/2021 14.8 Hematocrit (%) Date Value 11/03/2023 42.3 03/14/2021 44.9 Platelet Count (k/uL) Date Value 11/03/2023 162 03/14/2021 191 Creatinine (mg/dL) Date Value 12/28/2023 1.09 11/11/2023 1.23 11/03/2023 1.21 03/14/2021 1.34 09/06/2020 1.27 08/06/2020 1.43 Bilirubin, Total (mg/dL) Date Value 11/03/2023 0.6 03/14/2021 1.1 ALT (U/L) Date Value 11/03/2023 35 03/14/2021 32 AST (U/L) Date Value 11/03/2023 33 03/14/2021 30 Estimated Creatinine Clearance: 60.4 mL/min (based on SCr of 1.09 mg/dL). ALLERGIES No Known Allergies 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: long term (current) use of anticoagulants History of dvt (deep vein thrombosis) Anticoagulation Episode Summary Current INR goal: 2.0-3.0 Assessment: INR result of 2.6 is therapeutic Plan: Current Warfarin Dosing As of 03/31/2024 Full warfarin instructions: 7.5 mg every Mon, Fri; 5 mg all other days Sent HowGood message Advised patient to continue current weekly dose as noted above Next home INR check scheduled on 04/14/2024 Patient advised to call the PAC with any medication changes, bleeding/bruising concerns, recent changes in vitamin k consumption, if any procedures are coming up, if they have been ill or in the hospital, and if they have missed any doses of warfarin. Jinny Shah [facility] Clinical Pharmacist, Pharmacy Anticoagulation Clinic Pharmacy Anticoagulation Clinic Pager: [phone]. Jinny Shah [facility] 04/14/2024 3:19 PM Signed Patient was due to test INR today. Will continue to monitor for results. Follow up in one week if no results received. Jinny Shah [facility] Allergies As of Date: 03/31/2024 (No Known Allergies) Date Reviewed: 03/23/2024 Reviewed by: Tra Foss LPN - Fully Assessed Reason for Visit: Anticoagulation Telephone Fu [148] Cmt: Home INR Primary Visit Diagnosis:USP (current) use of anticoagulants [Z79.01] Other Visit Diagnosis:History of DVT (deep vein thrombosis) [Z86.718] Prescriptions as of 04/14/2024 - warfarin (COUMADIN) 5 mg tablet 7.5 mg every Mon, Fri; 5 mg all other days - tiotropium (SPIRIVA WITH HANDIHALER) 18 mcg inhalation capsule Inhale 1 capsule as instructed once daily. Use with handihaler. - albuterol HFA (VENTOLIN HFA) 90 mcg/actuation inhaler Inhale 2 Puffs as instructed every 4 hours as needed for wheezing/shortness of breath. - lisinopril (ZESTRIL) 10 mg tablet Take 1 tablet by mouth once daily. - loperamide HCl (IMODIUM) 2 mg tab Take 1 tablet by mouth as needed. - flecainide (TAMBOCOR) 100 mg tablet Take 1 tablet by mouth two times a day. - doxazosin (CARDURA) 1 mg tablet Take 1 tablet by mouth daily at bedtime. - atorvastatin (LIPITOR) 20 mg tablet Take 1 tablet by mouth once daily. - amLODIPine (NORVASC) 5 mg tablet Take 5 mg by mouth once daily. - sertraline (ZOLOFT) 100 mg tablet Take 1 tablet by mouth once daily. Problem List As Of Date 03/31/2024 Noted Resolved Hyperlipidemia LDL goal <100 [E78.5] 08/26/2006 05/04/2023 GENERALIZED ANXIETY DIS [F41.1] 08/26/2006 ATRIAL FIBRILLATION [I48.91] 01/28/2007 INT HEMORRHOID W/O COMPL [K64.8] Essential hypertension, benign [I10] 02/27/2010 Skin lesion [L98.9] 03/05/2010 12/20/2014 Moderate mitral regurgitation [I34.0] 02/01/2015 Moderate tricuspid regurgitation [I07.1] 02/01/2015 Paroxysmal atrial fibrillation (HCC) [I48.0] 03/19/2015 04/11/2015 long term (current) use of anticoagulants [Z79.*04/11/2015 Episodic lightheadedness [R42] 04/11/2015 01/21/2018 Bilateral edema of lower extremity [R60.0] 04/11/2015 01/10/2016 Venous (peripheral) insufficiency [I87.2] 04/11/2015 History of DVT (deep vein thrombosis) [Z86.718] 02/14/2016 Asymptomatic LV dysfunction [I51.9] 10/28/2016 USP current use of antiarrhythmic medical*10/28/2016 Change in bowel movement [R19.8] 01/21/2018 03/14/2021 Stage 3a chronic kidney disease (HCC) [N18.31] 04/08/2018 Hyperg (more content not included)... Normal [facility] CNTHERAPYon 03-30-2024 CNTHERAPY OT/PT/Speech Visit (PTWS) -------- WILMER MORLEY ([id number]) 1940 M Date Time Provider Department 03/30/24 9:45 AM MICHELLE GOMEZ PTMAURY Date Time Provider Department Center 03/30/2024 9:45 AM [id number] GOMEZ PTMAURY Adames Reason for Visit: PT Discharge [752] Primary Visit Diagnosis:Lightheaded [R42] Other Visit Diagnosis:Benign paroxysmal positional vertigo of right ear [H81.11] Allergies As of Date: 03/30/2024 (No Known Allergies) Date Reviewed: 03/23/2024 Reviewed by: Tra Foss LPN - Fully Assessed Prescriptions as of 03/30/2024 - tiotropium (SPIRIVA WITH HANDIHALER) 18 mcg inhalation capsule Inhale 1 capsule as instructed once daily. Use with handihaler. - albuterol HFA (VENTOLIN HFA) 90 mcg/actuation inhaler Inhale 2 Puffs as instructed every 4 hours as needed for wheezing/shortness of breath. - lisinopril (ZESTRIL) 10 mg tablet Take 1 tablet by mouth once daily. - loperamide HCl (IMODIUM) 2 mg tab Take 1 tablet by mouth as needed. - flecainide (TAMBOCOR) 100 mg tablet Take 1 tablet by mouth two times a day. - doxazosin (CARDURA) 1 mg tablet Take 1 tablet by mouth daily at bedtime. - warfarin (COUMADIN) 5 mg tablet 7.5 mg every Mon, Fri; 5 mg all other days - atorvastatin (LIPITOR) 20 mg tablet Take 1 tablet by mouth once daily. - amLODIPine (NORVASC) 5 mg tablet Take 5 mg by mouth once daily. - sertraline (ZOLOFT) 100 mg tablet Take 1 tablet by mouth once daily. Dis[employer]: Therapy (PT/OT/Speech/Resp) ID: [id number] 03/30/2024 10:04 AM Author: MICHELLE GOMEZ Signed by MICHELLE GOMEZ PT on 03/30/2024 at 10:04 AM Document text: Program_ID:[id number] Access Code: [email or web address] URL: [email or web address] Date: 03-30-2024 Prepared By: Michelle Gomez Program Notes Exercises - Tandem Stance - 1-2 x daily - 7 x weekly - 1 sets - 3 reps - Single Leg Stance - 1-2 x daily - 7 x weekly - 1 sets - 3 reps - Single Leg Stance - 1-2 x daily - 7 x weekly - 1 sets - [address] [facility] THERAPY NTon 03-30-2024 THERAPY NT HNO ID: [id number] Author: MICHELLE GOMEZ PT Service: ? Author Type: Physical Therapist Type: Therapy (PT/OT/Speech/Resp) Filed: 03/30/2024 10:04 Note Text: Program_ID:[id number] Access Code: [email or web address] URL: [email or web address] Date: 03-30-2024 Prepared By: Michelle Gomez Program Notes Exercises - Tandem Stance - 1-2 x daily - 7 x weekly - 1 sets - 3 reps - Single Leg Stance - 1-2 x daily - 7 x weekly - 1 sets - 3 reps - Single Leg Stance - 1-2 x daily - 7 x weekly - 1 sets - [address] [facility] CNOVon 03-23-2024 CNOV [facility] -------- MILLIWILMER Dian ([id number]) 1940 M Date Time Provider Department 03/23/24 4:00 PM [facility] During your visit today, we recorded the following information about you: Pulse Respiration Blood pressure 54/minute 16/minute 142/70 Katy Galdamez APRN.[employer] 03/23/2024 5:15 PM Signed This is a 83 year old male who presents today with: Patient presents with: Recheck: 6 week follow up HISTORY OF PRESENT ILLNESS: Wilmer Morley is a 83 year old male. Patient presents with: Recheck: 6 week follow up Pt presents today for 6 week follow-up. He had PFTs completed, which showed. IMPRESSION: Spirometry indicates moderate obstruction. Positive bronchodilator response. Lung volumes (FRC and/or RV) are elevated indicating hyperinflation and air trapping He was started on spiriva and albuterol. Has noticed maybe a little better. Gets winded with activity, so going to try using the inhaler before activity to see if that helps prevent the SOB with exacerbation. He has problems with IBS. He currently takes 1/2 tab of an imodium daily. He does notice that symptoms have gotten a little worse as far as urgency after he eats. No hematochezia/melena. Questions if okay to increase the imodium to a full tablet daily. 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 Benign neoplasm of colon CKD (chronic kidney disease), stage III (HCC) 04/08/2018 Diverticulosis of colon (without mention of hemorrhage) Essential hypertension, benign 02/27/2010 Facial basal cell cancer 2009 Internal hemorrhoids without mention of complication Other acute embolism veins Other and unspecified hyperlipidemia hypertriglyeridemia Personal history of colonic polyps PAST SURGICAL HISTORY Procedure Laterality Date CATARACT EXTRACTION HX Left CATARACT SURGERY, COMPLEX 2009 R eye COLONOSCOPY FLX DX W/COLLJ SPEC WHEN PFRMD 08/05/2000 Colonoscopy COLONOSCOPY FLX DX W/COLLJ SPEC WHEN PFRMD 11/02/2002 Colonoscopy COLONOSCOPY FLX DX W/COLLJ SPEC WHEN PFRMD 01/29/2009 COLONOSCOPY FLX DX W/COLLJ SPEC WHEN PFRMD 02/24/2014 Colonoscopy COLONOSCOPY FLX DX W/COLLJ SPEC WHEN PFRMD 03/09/2018 [facility] 10 years ESOPHAGOGASTRODUODENOSCO PY TRANSORAL DIAGNOSTIC N/A 08/16/2020 [facility] PAST SURGICAL HISTORY OF 2010 basal cell to right above upper lip ALLERGIES Patient has no known allergies. MEDICATIONS Current Outpatient Medications Medication Sig tiotropium (SPIRIVA WITH HANDIHALER) 18 mcg inhalation capsule Inhale 1 capsule as instructed once daily. Use with handihaler. albuterol HFA (VENTOLIN HFA) 90 mcg/actuation inhaler Inhale 2 Puffs as instructed every 4 hours as needed for wheezing/shortness of breath. flecainide (TAMBOCOR) 100 mg tablet Take 1 tablet by mouth two times a day. doxazosin (CARDURA) 1 mg tablet Take 1 tablet by mouth daily at bedtime. warfarin (COUMADIN) 5 mg tablet 7.5 mg every Mon, Fri; 5 mg all other days atorvastatin (LIPITOR) 20 mg tablet Take 1 tablet by mouth once daily. amLODIPine (NORVASC) 5 mg tablet Take 5 mg by mouth once daily. lisinopril (ZESTRIL) 10 mg tablet Take 1 tablet by mouth once daily. sertraline (ZOLOFT) 100 mg tablet Take 1 tablet by mouth once daily. loperamide (ANTI-DIARRHEAL) 1 mg/5 mL solution Take 5 mL by mouth four times daily as needed. Take 1/2 tablet daily No current facility-administered medications for this visit. FAMILY HISTORY Problem Relation Age of Onset Heart Father CHF Heart Mother CHF Heart Brother [place] - rheumatic fever Cancer Brother gastric Asthma Sister Social History Tobacco Use Smoking status: Former Current packs/day: 0.00 Types: Cigarettes Start date: 02/24/2010 Quit date: 02/24/2011 Years since quittin.0 Smokeless tobacco: Never Substance Use Topics Alcohol use: Yes Alcohol/week: 2.3 standard drinks of alcohol Types: 1 Glasses of Wine (5oz), 1 Mixed Drinks per week Comment: one drink a day Drug use: No EXAM: BP 142/70 Pulse (!) 54 Resp 16 SpO2 96% PHYSICAL EXAM: General Appearance: Well appearing, alert, in no acute distress, well-hydrated, well nourished.. Skin: Skin color, texture, turgor normal, no suspicious rashes or lesions. Head: Normocephalic, no masses, lesions, tenderness or abnormalities. Eyes: Anicteric sclera. Pupils are equally round and reactive to light. Extraocular movements are intact. . Lungs:faint exp wheeze right upper field, otherwise CTA. Heart: RRR without murmur, gallop, or rubs. No ectopy. Neurologic: Gait normal. ASSESSMENT/PLAN: 1. Chronic obstructive pulmonary disease, unspecified COPD type (HCC) - ICD9: 496, ICD10: J44.9 (primary diagnosis) Some improvement. He is going to try adding albuterol before exe (more content not included)... [facility] [id number] 03-16-2024 [id number] HNO ID: [id number] Author: MICHELLE GOMEZ PT Service: ? Author Type: Physical Therapist Type: [id number] Filed: 03/16/2024 11:05 Note Text: [facility] Rehabilitation and Sports Therapy Physical Therapy Plan of Care Certification Patient Name: Wilmer Morley : 1940 [facility] #: [id number] Date: 03/16/2024 To: Tien Serrano MD From Therapist: Michelle Gomez PT RE: Patient Certification/ Recertification Your review, approval and electronic signature are required in order to comply with Payor: T MEDICARE / Plan: [employer] MEDICARE PPO / Product Type: PPO / regulations. The identified Physical Therapy PLAN OF CARE for the patient is as follows: R42 Lightheaded (primary encounter diagnosis) H81.11 Benign paroxysmal positional vertigo of right ear PLAN OF CARE UPDATE: Assessment: Wilmer Morley demonstrates improvements in rising from a chair and walking in the community. The patient has progressed toward goals. Patient continues to present with impairments in ADL's, balance, overall function, and patient reported outcome measures that interfere with (continues to have difficulty with amb with eyes closed and tandem stepping) . Current prognosis is Good due to: current objective clinical presentation, good support system/ coping skills, within-session changes, positive past response to therapy, acuteness of condition, good overall health status . The patient will benefit from continued skilled therapy services to meet the updated goals for this plan of care as noted below. Goals for Episode of Care: created on 02/02/24 through 03/15/24 Goals updated on 03/16/2024. Patient will be independent with home exercise program and progression. -- HEP Patient will return to prior level of function with all activities of daily living with trace reports of dizziness. -- MET Patient will deny dizziness with walking and standing. -- MET Patient will demonstrate the ability to complete VOR in static and dynamic positions with trace report of dizziness. -- MET Patient Goals: improve balance, become less SOB with minimal exertion -- MET Time Frame for Goals and Treatment : 04/13/24 Patient Goals: improve balance, become less SOB with minimal exertion Planned Interventions, Frequency, and Duration: 1x/week, 4 weeks Total Number of Visits Planned: 4 Patient to be seen for Therapeutic exercise (95104), Neuromuscular re-education (99602), Manual therapy (73193), Self-residential management (60605), Gait Training (31581), Therapeutic activities (04288) PLAN FOR NEXT VISIT: DC For further details regarding this patient refer to the Physical Therapy electronically documented visit dated 03/16/2024. Provider Attestation I have reviewed the treatment plan for Wilmer Morley, CCF# [id number] for the period of 03/16/24 -- 04/13/24, established on 03/16/2024. Signature certifies the need for therapy services. [facility] CNPNon 03-16-2024 CNPN Telephone (PHAMTE) -------- WILMER MORLEY ([id number]) 1940 M Date Time Provider Department 03/16/24 BEA ADAN During your visit today, we recorded the following information about you: Bea Adan [facility] 03/16/2024 5:08 PM S[address] [facility] Ambulatory Pharmacy Anticoagulation Clinic Anticoagulation Episode Summary Anticoagulation Care Providers Provider Role Specialty Phone number Tien Serrano MD Referring Family Medicine [phone] Wilmer Morley is a 83 year old year old male patient being evaluated today for a Telemanagement visit. Patient is currently on the following anticoagulant(s) Warfarin. Labs PT INR (no units) Date Value 09/16/2021 2.9 09/02/2021 3.2 06/06/2021 2.5 biotel INR Home CoaguChek (no units) Date Value 03/16/2024 2.6 03/02/2024 2.3 02/17/2024 2.5 Hemoglobin (g/dL) Date Value 11/03/2023 13.9 03/14/2021 14.8 Hematocrit (%) Date Value 11/03/2023 42.3 03/14/2021 44.9 Platelet Count (k/uL) Date Value 11/03/2023 162 03/14/2021 191 Creatinine (mg/dL) Date Value 12/28/2023 1.09 11/11/2023 1.23 11/03/2023 1.21 03/14/2021 1.34 09/06/2020 1.27 08/06/2020 1.43 Bilirubin, Total (mg/dL) Date Value 11/03/2023 0.6 03/14/2021 1.1 ALT (U/L) Date Value 11/03/2023 35 03/14/2021 32 AST (U/L) Date Value 11/03/2023 33 03/14/2021 30 Estimated Creatinine Clearance: 60.4 mL/min (based on SCr of 1.09 mg/dL). ALLERGIES No Known Allergies 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: USP (current) use of anticoagulants Atrial fibrillation, unspecified type (hcc) History of dvt (deep vein thrombosis) Anticoagulation Episode Summary Current INR goal: 2.0-3.0 Assessment: INR result of 2.6 is therapeutic Plan: Current Warfarin Dosing As of 03/16/2024 Full warfarin instructions: 7.5 mg every Mon, Fri; 5 mg all other days Sent HowGood message Advised patient to continue current weekly dose as noted above Next home INR check scheduled on 03/30/2024 Patient advised to call the PAC with any medication changes, bleeding/bruising concerns, recent changes in vitamin k consumption, if any procedures are coming up, if they have been ill or in the hospital, and if they have missed any doses of warfarin. Bea Adan [facility] Clinical Pharmacist, Pharmacy Anticoagulation Clinic Pharmacy Anticoagulation Clinic Pager: [phone]. Ghazal Bailey RPh 03/30/2024 11:05 AM Signed Patient was due to test INR today will continue to monitor for results. Ghazal Bailey PharmD Allergies As of Date: 03/16/2024 (No Known Allergies) Date Reviewed: 02/11/2024 Reviewed by: Bhavya Montaño RPFT - Fully Assessed Reason for Visit: Anticoagulation Telephone Fu [148] Cmt: INR Home Test Result Primary Visit Diagnosis:USP (current) use of anticoagulants [Z79.01] Other Visit Diagnoses:ATRIAL FIBRILLATION [I48.91] History of DVT (deep vein thrombosis) [Z86.718] Prescriptions as of 03/30/2024 - tiotropium (SPIRIVA WITH HANDIHALER) 18 mcg inhalation capsule Inhale 1 capsule as instructed once daily. Use with handihaler. - albuterol HFA (VENTOLIN HFA) 90 mcg/actuation inhaler Inhale 2 Puffs as instructed every 4 hours as needed for wheezing/shortness of breath. - lisinopril (ZESTRIL) 10 mg tablet Take 1 tablet by mouth once daily. - loperamide HCl (IMODIUM) 2 mg tab Take 1 tablet by mouth as needed. - flecainide (TAMBOCOR) 100 mg tablet Take 1 tablet by mouth two times a day. - doxazosin (CARDURA) 1 mg tablet Take 1 tablet by mouth daily at bedtime. - warfarin (COUMADIN) 5 mg tablet 7.5 mg every Mon, Fri; 5 mg all other days - atorvastatin (LIPITOR) 20 mg tablet Take 1 tablet by mouth once daily. - amLODIPine (NORVASC) 5 mg tablet Take 5 mg by mouth once daily. - sertraline (ZOLOFT) 100 mg tablet Take 1 tablet by mouth once daily. Problem List As Of Date 03/16/2024 Noted Resolved Hyperlipidemia LDL goal <100 [E78.5] 08/26/2006 05/04/2023 GENERALIZED ANXIETY DIS [F41.1] 08/26/2006 ATRIAL FIBRILLATION [I48.91] 01/28/2007 INT HEMORRHOID W/O COMPL [K64.8] Essential hypertension, benign [I10] 02/27/2010 Skin lesion [L98.9] 03/05/2010 12/20/2014 Moderate mitral regurgitation [I34.0] 02/01/2015 Moderate tricuspid regurgitation [I07.1] 02/01/2015 Paroxysmal atrial fibrillation (HCC) [I48.0] 03/19/2015 04/11/2015 long term (current) use of anticoagulants [Z79.*04/11/2015 Episodic lightheadedness [R42] 04/11/2015 01/21/2018 Bilateral edema of lower extremity [R60.0] 04/11/2015 01/10/2016 Venous (peripheral) insufficiency [I87.2] 04/11/2015 History of DVT (deep vein thrombosis) [Z86.718] 02/14/2016 Asymptomatic LV dysfunction [I51.9] 10/28/2016 USP current use of antiarrhythmic medical*10/28/2016 Change in bowel movement [R19.8] 01/21/2018 03/14/2021 Stage 3a chronic kidney disease (HCC) [N18.31] (more content not included)... [facility] CNTHERAPYon 03-16-2024 CNTHERAPY OT/PT/Speech Visit (PTWS) -------- WILMER MORLEY ([id number]) 1940 M Date Time Provider Department 03/16/24 10:30 AM MICHELLE GOMEZ PTWS Date Time Provider Department [place] 03/16/2024 10:30 AM [id number] GOMEZ PTMAURY [employer] Reason for Visit: PT Progress Note [1596] Primary Visit Diagnosis:Lightheaded [R42] Other Visit Diagnosis:Benign paroxysmal positional vertigo of right ear [H81.11] Allergies As of Date: 03/16/2024 (No Known Allergies) Date Reviewed: 02/11/2024 Reviewed by: Bhavya Montaño RPFT - Fully Assessed Prescriptions as of 03/16/2024 - tiotropium (SPIRIVA WITH HANDIHALER) 18 mcg inhalation capsule Inhale 1 capsule as instructed once daily. Use with handihaler. - albuterol HFA (VENTOLIN HFA) 90 mcg/actuation inhaler Inhale 2 Puffs as instructed every 4 hours as needed for wheezing/shortness of breath. - flecainide (TAMBOCOR) 100 mg tablet Take 1 tablet by mouth two times a day. - doxazosin (CARDURA) 1 mg tablet Take 1 tablet by mouth daily at bedtime. - warfarin (COUMADIN) 5 mg tablet 7.5 mg every Mon, Fri; 5 mg all other days - atorvastatin (LIPITOR) 20 mg tablet Take 1 tablet by mouth once daily. - amLODIPine (NORVASC) 5 mg tablet Take 5 mg by mouth once daily. - lisinopril (ZESTRIL) 10 mg tablet Take 1 tablet by mouth once daily. - sertraline (ZOLOFT) 100 mg tablet Take 1 tablet by mouth once daily. - loperamide (ANTI-DIARRHEAL) 1 mg/5 mL solution Take 5 mL by mouth four times daily as needed. Take 1/2 tablet daily [facility] WILMER MORLEY ([id number]) 1940 M Date Time Provider Department 03/03/24 JINNY SHAH During your visit today, we recorded the following information about you: Jinny Shah, [facility] 03/03/2024 7:02 AM Signed [facility] Ambulatory Pharmacy Anticoagulation Clinic Anticoagulation Episode Summary Anticoagulation Care Providers Provider Role Specialty Phone number Tien Serrano MD Referring Family Medicine [phone] Wilmer Maxwelley is a 83 year old year old male patient being evaluated today for a Telemanagement visit. Patient is currently on the following anticoagulant(s) Warfarin. Labs PT INR (no units) Date Value 09/16/2021 2.9 09/02/2021 3.2 06/06/2021 2.5 biotel INR Home CoaguChek (no units) Date Value 03/02/2024 2.3 02/17/2024 2.5 02/04/2024 2.4 Hemoglobin (g/dL) Date Value 11/03/2023 13.9 03/14/2021 14.8 Hematocrit (%) Date Value 11/03/2023 42.3 03/14/2021 44.9 Platelet Count (k/uL) Date Value 11/03/2023 162 03/14/2021 191 Creatinine (mg/dL) Date Value 12/28/2023 1.09 11/11/2023 1.23 11/03/2023 1.21 03/14/2021 1.34 09/06/2020 1.27 08/06/2020 1.43 Bilirubin, Total (mg/dL) Date Value 11/03/2023 0.6 03/14/2021 1.1 ALT (U/L) Date Value 11/03/2023 35 03/14/2021 32 AST (U/L) Date Value 11/03/2023 33 03/14/2021 30 Estimated Creatinine Clearance: 60.4 mL/min (based on SCr of 1.09 mg/dL). ALLERGIES No Known Allergies 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: USP (current) use of anticoagulants History of dvt (deep vein thrombosis) Anticoagulation Episode Summary Current INR goal: 2.0-3.0 Assessment: INR result of 2.3 is therapeutic Plan: Current Warfarin Dosing As of 03/03/2024 Full warfarin instructions: 7.5 mg every Mon, Fri; 5 mg all other days Sent HowGood message Advised patient to continue current weekly dose as noted above Next home INR check scheduled on 03/16/2024 Jinny Shah [facility] Clinical Pharmacist, Pharmacy Anticoagulation Clinic Pharmacy Anticoagulation Clinic Pager: [phone]. Allergies As of Date: 03/03/2024 (No Known Allergies) Date Reviewed: 02/11/2024 Reviewed by: Bhavya Montaño RPFT - Fully Assessed Reason for Visit: Anticoagulation Telephone Fu [148] Cmt: Home INR Primary Visit Diagnosis:USP (current) use of anticoagulants [Z79.01] Other Visit Diagnosis:History of DVT (deep vein thrombosis) [Z86.718] Prescriptions as of 03/03/2024 - tiotropium (SPIRIVA WITH HANDIHALER) 18 mcg inhalation capsule Inhale 1 capsule as instructed once daily. Use with handihaler. - albuterol HFA (VENTOLIN HFA) 90 mcg/actuation inhaler Inhale 2 Puffs as instructed every 4 hours as needed for wheezing/shortness of breath. - flecainide (TAMBOCOR) 100 mg tablet Take 1 tablet by mouth two times a day. - doxazosin (CARDURA) 1 mg tablet Take 1 tablet by mouth daily at bedtime. - warfarin (COUMADIN) 5 mg tablet 7.5 mg every Mon, Fri; 5 mg all other days - atorvastatin (LIPITOR) 20 mg tablet Take 1 tablet by mouth once daily. - amLODIPine (NORVASC) 5 mg tablet Take 5 mg by mouth once daily. - lisinopril (ZESTRIL) 10 mg tablet Take 1 tablet by mouth once daily. - sertraline (ZOLOFT) 100 mg tablet Take 1 tablet by mouth once daily. - loperamide (ANTI-DIARRHEAL) 1 mg/5 mL solution Take 5 mL by mouth four times daily as needed. Take 1/2 tablet daily Problem List As Of Date 03/03/2024 Noted Resolved Hyperlipidemia LDL goal <100 [E78.5] 08/26/2006 05/04/2023 GENERALIZED ANXIETY DIS [F41.1] 08/26/2006 ATRIAL FIBRILLATION [I48.91] 01/28/2007 INT HEMORRHOID W/O COMPL [K64.8] Essential hypertension, benign [I10] 02/27/2010 Skin lesion [L98.9] 03/05/2010 12/20/2014 Moderate mitral regurgitation [I34.0] 02/01/2015 Moderate tricuspid regurgitation [I07.1] 02/01/2015 Paroxysmal atrial fibrillation (HCC) [I48.0] 03/19/2015 04/11/2015 USP (current) use of anticoagulants [Z79.*04/11/2015 Episodic lightheadedness [R42] 04/11/2015 01/21/2018 Bilateral edema of lower extremity [R60.0] 04/11/2015 01/10/2016 Venous (peripheral) insufficiency [I87.2] 04/11/2015 History of DVT (deep vein thrombosis) [Z86.718] 02/14/2016 Asymptomatic LV dysfunction [I51.9] 10/28/2016 long term current use of antiarrhythmic medical*10/28/2016 Change in bowel movement [R19.8] 01/21/2018 03/14/2021 Stage 3a chronic kidney disease (HCC) [N18.31] 04/08/2018 Hyperglycemia [R73.9] 03/14/2021 Hypertensive kidney disease with stage 3a chron*11/06/2021 10/31/2022 Hx of skin cancer, basal cell [Z85.828] 11/08/2021 Lightheaded [R42] 02/02/2024 Benign paroxysmal positional vertigo of right e*02/02/2024 Chronic obstructive pulmonary disease (HCC) [J4*02/12/2024 Encounter Status:Closed by JINNY SHAH on 03/03/24 [facility] CNTHERAPYon 02-29-2024 CNTHERAPY OT/PT/Speech Visit (PTWS) -------- WILMER MORLEY ([id number]) 1940 M Date Time Provider Department 02/29/24 12:30 PM MICHELLE GOMEZ PTWS Date Time Provider Department [place] 02/29/2024 12:30 PM [id number] GOMEZ Reason for Visit: Physical Therapy [503] Primary Visit Diagnosis:Lightheaded [R42] Other Visit Diagnosis:Benign paroxysmal positional vertigo of right ear [H81.11] Allergies As of Date: 02/29/2024 (No Known Allergies) Date Reviewed: 02/11/2024 Reviewed by: Bhavya Montaño RPFT - Fully Assessed Prescriptions as of 02/29/2024 - tiotropium (SPIRIVA WITH HANDIHALER) 18 mcg inhalation capsule Inhale 1 capsule as instructed once daily. Use with handihaler. - albuterol HFA (VENTOLIN HFA) 90 mcg/actuation inhaler Inhale 2 Puffs as instructed every 4 hours as needed for wheezing/shortness of breath. - flecainide (TAMBOCOR) 100 mg tablet Take 1 tablet by mouth two times a day. - doxazosin (CARDURA) 1 mg tablet Take 1 tablet by mouth daily at bedtime. - warfarin (COUMADIN) 5 mg tablet 7.5 mg every Thu, Fri; 5 mg all other days - atorvastatin (LIPITOR) 20 mg tablet Take 1 tablet by mouth once daily. - amLODIPine (NORVASC) 5 mg tablet Take 5 mg by mouth once daily. - lisinopril (ZESTRIL) 10 mg tablet Take 1 tablet by mouth once daily. - sertraline (ZOLOFT) 100 mg tablet Take 1 tablet by mouth once daily. - loperamide (ANTI-DIARRHEAL) 1 mg/5 mL solution Take 5 mL by mouth four times daily as needed. Take 1/[address] [facility] No Panel Informationon 02-10 [facility] [address] [place] [address] Test Date: 2024-02-11 Pat Name: WILMER MORLEY Department: Room: Gender: Male Bark Tanner: : 1940 Requested By: Order Number: [id number] Reading MD: Lia Griffin MD Interpretive Statements 4 puffs Albuterol (360 mcg) delivered by MDI via holding chamber. HR pre = 66/min, HR post = /min. TGV is repeatable x 3. Pre/post BD The two largest FVCs were repeatable. The two largest FEV1s were repeatable. Glottic closure detected after 1 sec with repeated trials. IMPRESSION: Spirometry indicates moderate obstruction. Positive bronchodilator response. Lung volumes (FRC and/or RV) are elevated indicating hyperinflation and air trapping. Electronically Signed On 02-11-2024 15:03:07 EDT by Lia Griffin MD ID: [id number] Name: WILMER MORLEY Race: White Ht: 70.00 in Wt: 209.00 lbs Age: 83 Gender: Male : 1940 Dx: Shortness of breath Smoking Hx: Non-smoker Doctor: TIEN SERRANO Test Date: 02/11/2024 Site: [facility] Persaud: Bhavya Montaño PRE-BRONCH POST-BRONCH Pre LLN Pred ULN %Pred Post %Pred %Chg SPIROMETRY FVC (L) 2.95 2.76 3.75 4.76 78 3.80 101 22 FEV1 (L) 1.41 1.97 2.74 3.46 51 1.81 66 14 FEV1/FVC 0.48 0.61 0.75 0.87 63 0.48 63 0 PEF L/s (L/sec) 3.85 4.65 6.96 9.28 55 4.03 57 4 FEF50 (L/sec) 0.66 1.49 3.61 5.74 18 1.21 33 82 FIF50 (L/sec) 3.80 3.81 0 FEF50/FIF50 0.18 90-100 0.32 81 FIVC (L) 2.55 3.29 28 PNA41-32 (L/sec) 0.51 0.72 1.95 3.80 26 1.06 54 106 Time (sec) 12.16 12.38 1 FET PEF (sec) 0.08 0.10 31 STEPHANY (L) 0.07 0.09 32 Vol Extrap % (%) 2 2 3 LUNG VOLUMES TGV (L) 8.33 2.66 3.84 5.02 216 ERV (L) 0.62 1.25 49 RV (Pleth) (L) 7.78 2.09 2.70 3.32 288 SVC (L) 3.06 2.76 3.75 4.76 81 IC (L) 2.37 2.50 94 TLC (Pleth) (L) 10.69 5.76 7.06 8.37 151 RV/TLC (Pleth) (%) 73 32 39 47 184 Comments: 4 puffs Albuterol (360 mcg) delivered by MDI via holding chamber. HR pre = 66/min, HR post = /min. TGV is repeatable x 3. Pre/post BD The two largest FVCs were repeatable. The two largest FEV1s were repeatable. Glottic closure detected after 1 sec with repeated trials. PULMONARY FUNCTION LAB [facility] SPIROMETRY WITH DILATOR IF O BSTRUCTEDon 02-11-2024 ERV BOX (L) 0.[address] [facility] ERV PREDICTED (L) 1.25 L/S [facility] FEF25% POST (L/S) 2.53 L/S [facility] FEF25% PRE (L/S) 1.42 L/S [facility] BHY18-12% LLN (L/S) 0.72 L/S [facility] MFX98-66% POST (L/S) 1.06 L/S [facility] XSP35-10% PRE (L/S) 0.51 L/S [facility] GAI69-83% PREDICTED (L/S) 1.95 L/S [facility] FEF75% LLN (L/S) 0.16 L/S [facility] FEF75% POST (L/S) 0.49 L/S [facility] FEF75% PRE (L/S0 0.22 L/S [facility] FEF75% PREDICTED (L/S) 0.47 L/S [facility] FEF75% ULN (L/S) 1.38 L/S [facility] FET POST (S) 12.[address] [facility] FET PRE (S) 12.[address] [facility] FEV1 LLN (L) 1.[address] [facility] FEV1 PRE (L) 1.[address] [facility] FEV1 PREDICTED (L) 2.74 L [facility] FEV1 ULN (L) 3.[address] [facility] FEV1/FVC LLN (%) 61 % [facility] FEV1/FVC POST (%) 48 % [facility] FEV1/FVC PRE (%) 48 % [facility] FEV1/FVC PREDICTED (%) 75 % [facility] FEV1_POST (L) 1.[address] [facility] FRC Box (L) 8.[address] [facility] FVC LLN (L) 2.[address] [facility] FVC POST (L) 3.[address] [facility] FVC PRE (L) 2.[address] [facility] FVC PREDICTED (L) 3.75 L [facility] FVC ULN (L) 4.[address] [facility] IC BOX (L) 2.[address] [facility] IC PREDICTED (L) 2.50 L/S [facility] PEF LLN (L/S) 4.65 L/S [facility] PEF POST (L/S) 4.03 L/S [facility] PEF PRE (L/S) 3.85 L/S [facility] PEF ULN (L/S) 9.28 L/S [facility] RV Box (L) 7.[address] [facility] RV Box PREDICTED (L) 2.70 L [facility] RV/TLC Box (%) 73 % [facility] RV/TLC Box PREDICTED (%) 39 % [facility] SVC LLN (L) 2.76 L/S [facility] SVC PREDICTED (L) 3.75 L/S [facility] SVC ULN (L) 4.76 L/S [facility] TLC Box (L) 10.[address] [facility] TLC Box PREDICTED (L) 7.[address] [facility] VC (L) BOX 3.[address] [facility] XR Chest PA and Lateralon IMPRESSION: No acute radiographic abnormality. Boat Carpenter Mechanic: [email or web address] Transcribe Date/Time: Feb 10 2024 2:59P Dictated by : AMENA GRACE MD This examination was interpreted and the report reviewed and electronically signed by: AMENA GRACE MD on Feb 10 2024 2:59PM [facility] DIVISION OF RADIOLOGY * * *Final Report* * * DATE OF EXAM: Feb 10 2024 12:49PM WOX [id number] - XR CHEST 2V FRONTAL/LAT / PROCEDURE REASON: Lightheadedness * * * * Physician Interpretation * * * * EXAMINATION: CHEST RADIOGRAPH (2 VIEW FRONTAL & LATERAL) CLINICAL HISTORY: Lightheadedness MQ: XC2_6 EXAM DATE/TIME: 02/10/2024 12:49 PM COMPARISON: Chest x-ray on 04/29/2022 RESULT: Lines, tubes, and devices: None. Lungs and pleura: No consolidation. No lung mass. No pleural effusion. No pneumothorax. Cardiomediastinal silhouette: Stable cardiomediastinal silhouette. Bones and soft tissues: There are degenerative changes in the spine. DIVISION OF RADIOLOGY Provider, [facility] - 02/10/2024 * * *Final Report* * * DATE OF EXAM: Feb 10 2024 12:49PM WOX [id number] - XR CHEST 2V FRONTAL/LAT / PROCEDURE REASON: Lightheadedness * * * * Physician Interpretation * * * * EXAMINATION: CHEST RADIOGRAPH (2 VIEW FRONTAL & LATERAL) CLINICAL HISTORY: Lightheadedness MQ: XC2_6 EXAM DATE/TIME: 02/10/2024 12:49 PM COMPARISON: Chest x-ray on 04/29/2022 RESULT: Lines, tubes, and devices: None. Lungs and pleura: No consolidation. No lung mass. No pleural effusion. No pneumothorax. Cardiomediastinal silhouette: Stable cardiomediastinal silhouette. Bones and soft tissues: There are degenerative changes in the spine. IMPRESSION IMPRESSION: No acute radiographic abnormality. Boat Carpenter Mechanic: CRYSTAL Transcribe Date/Time: Feb 10 2024 2:59P Dictated by : AMENA GRACE MD This examination was interpreted and the report reviewed and electronically signed by: AMENA GRACE MD on Feb 10 2024 2:59PM EST [facility] Radiology Study observation (narrative) [facility] XR Chest PA and LateralOrder ed By: [facility] Provider on 02-10-[address] [facility] Cardiac echo study Procedure stress methodon 11-30-2023 [facility] REPORT EXAM: Treadmill Stress Echo Medical History Pretest Chest Pain Characteristics: No chest pain Conclusion normal electrocardiographic submax stress test, no anginal symptoms or ST segment changes. Baseline rhythm remained sinus. Bifascicular block with right bundle left axis. O2 sat 92% which is slightly low. Limited valvular interrogation demonstrated at least moderate tricuspid regurgitation and moderate severe pulmonary hypertension at 68 mmHg in addition to at least mild mitral regurgitation. Dyspnea and exercise limitations may be due to valvular insufficiency, moderate pulmonary hypertension, deconditioning and possible component of intrinsic lung disease with relatively low O2 saturation at 92%. Echo Findings The Pre-Stress Echocardiogram showed normal left ventricular contractility with an estimated Ejection Fraction of about 60%. The Post-Stress Echocardiogram showed normal left ventricular contractility with an estimated Ejection Fraction of about 70%. Other Information Study Quality: Good Stress Test Details Test: Exercise stress testing was performed using a 2 min Yoni protocol. HR Resting HR: 58 bpm Max Heart Rate (APMHR): 139.870923 bpm Max HR Achieved: 131 bpm Target HR (85% APMHR): 118.259984 bpm % of APMHR: 94.24 Recovery HR: 85 bpm HR response to stress: Attenuated secondary to medication BP Resting BP: 155/49 mmHg Max BP: 170/62 mmHg BP response to stress: Normal blood pressure response to stress. ECG Resting ECG: RBBB ST Change: none Arrhythmia: atrial premature beats-isolated Clinical Reason for Termination: Dyspnea Exercise duration: 3 min 30 sec Highest Stage Achieved: Stage 2: 2.5 mph at 12% grade. Exercise capacity: 6.3 METs Overall Exercise Capacity for Age: Average Scale: Active Angina Score: None CARDIOLOGY Tien Head, DO - 11/30/2023 APPROVED REPORT EXAM: Treadmill Stress Echo Medical History Pretest Chest Pain Characteristics: No chest pain Conclusion normal electrocardiographic submax stress test, no anginal symptoms or ST segment changes. Baseline rhythm remained sinus. Bifascicular block with right bundle left axis. O2 sat 92% which is slightly low. Limited valvular interrogation demonstrated at least moderate tricuspid regurgitation and moderate severe pulmonary hypertension at 68 mmHg in addition to at least mild mitral regurgitation. Dyspnea and exercise limitations may be due to valvular insufficiency, moderate pulmonary hypertension, deconditioning and possible component of intrinsic lung disease with relatively low O2 saturation at 92%. Echo Findings The Pre-Stress Echocardiogram showed normal left ventricular contractility with an estimated Ejection Fraction of about 60%. The Post-Stress Echocardiogram showed normal left ventricular contractility with an estimated Ejection Fraction of about 70%. Other Information Study Quality: Good Stress Test Details Test: Exercise stress testing was performed using a 2 min Yoni protocol. HR Resting HR: 58 bpmMax Heart Rate (APMHR): 139.781366 bpm Max HR Achieved: 131 bpmTarget HR (85% APMHR): 118.017864 bpm % of APMHR: 94.24 Recovery HR: 85 bpm HR response to stress: Attenuated secondary to medication BP Resting BP: 155/49 mmHg Max BP: 170/62 mmHg BP response to stress: Normal blood pressure response to stress. ECG Resting ECG: RBBB ST Change: none Arrhythmia: atrial premature beats-isolated Clinical Reason for Termination: Dyspnea Exercise duration: 3 min 30 sec Highest Stage Achieved: Stage 2: 2.5 mph at 12% grade. Exercise capacity: 6.3 METs Overall Exercise Capacity for Age: Average Scale: Active Angina Score: None [facility] Rad[facility] Study observation (narrative) [facility] Basic metabolic 2000 panelon 06-05-2024 Anion gap [Moles/Vol] 10 mmol/L 8 - 15 mmol/L [facility] Calcium [Mass/Vol] 9.6 mg/dL 8.5 - 10. 2 mg/dL [facility] Chloride [Moles/Vol] 104 mmol/L 98 - 10 7 mmol/L [facility] CO2 [Moles/Vol] 25 mmol/L 22 - 30 mmol/L [facility] Creatinine [Mass/Vol] 1.23 mg/dL High 0.73 - 1.22 mg/dL [facility] GFR/1.73 sq M.predicted among non-blacks MDRD (S/P/Bld) [Vol rate/Area] 59 mL/min/{1.73_m2} Low - PINF [facility] Comment on above: Estimated Glomerular Filtration Rate (eGFR) is calculated using the 2020 CKD-EPI creatinine equation. This equation utilizes serum creatinine, sex, and age as parameters. The creatinine assay has traceable calibration to isotope dilution-mass spectrometry. Refer to KDIGO guidelines for clinical interpretation. In patients with unstable renal function, e.g. those with acute kidney injury, the eGFR may not accurately reflect actual GFR. Glucose [Mass/Vol] 153 mg/dL High 74 - 99 mg/dL [facility] Comment on above: The [place] [employer] Association (ADA) provides guidance for cutoff values for fasting glucose and random glucose. The ADA defines fasting as no caloric intake for at least 8 hours. Fasting plasma glucose results between 100 to 125 mg/dL indicate increased risk for diabetes (prediabetes). Fasting plasma glucose results greater than or equal to 126 mg/dL meet the criteria for diagnosis of diabetes. In the absence of unequivocal hyperglycemia, results should be confirmed by repeat testing. In a patient with classic symptoms of hyperglycemia or hyperglycemic crisis, random plasma glucose results greater than or equal to 200 mg/dL meet the criteria for diagnosis of diabetes. Reference: Standards of Medical Care in Diabetes 2016, [place] [employer]. Diabetes Care. 2016.39(Suppl 1). Interpretation and review of laboratory results Abnormal [facility] Potassium [Moles/Vol] 4.5 mmol/L 3.7 - 5.1 mmol/L [facility] Sodium [Moles/Vol] 139 mmol/L 136 - 144 mmol/L [facility] Urea nitrogen [Mass/Vol] 29 mg/dL High 9 - 24 mg/dL [facility] Cardiac echo study Procedure on 04-22-2023 APPR [place] REPORT Other Information Study Quality: Good Conclusion Normal RV/LV size and function and ejection fraction 65%. Mild moderate 2+ mitral and tricuspid regurgitation with moderate pulmonary hypertension at 51 mmHg. Trace pericardial effusion. Compared to study 11/2019, no significant changes. Left Ventricle The left ventricle is normal size. Left ventricular systolic function is normal. There is normal left ventricular wall thickness. There is normal LV segmental wall motion. Left ventricular filling pattern is normal for age. LVEF is 65%. Right Ventricle The right ventricle is normal size. The right ventricular systolic function is normal. Atria Left atrium is moderately dilated. Right atrium is moderately dilated. Aortic Valve Mild aortic valve sclerosis. There is no aortic valvular stenosis. No aortic regurgitation is present. Mitral Valve The mitral valve is normal in structure. Mild moderate mitral regurgitation. Tricuspid Valve The tricuspid valve is normal in structure. Mild The RVSP is 50-55 mmHg. moderate tricuspid regurgitation. Pulmonic Valve The pulmonary valve is normal in structure. Great Vessels The aortic root is normal in size. Pericardium Trace pericardial effusion. EXAM: Comprehensive 2D, Doppler, and color-flow Echocardiogram Imaging system used: GE Vivid E9 2D Dimensions IVSd 1.0 cm M: 0.6-1.0 LVEF (Parish's) 65.23 % M: 52 - 72 PWd 1.0 cm M: 0.6 - 1.0 EF AP4-a2DQ 63.75 % LVDd 5.9 cm M: 4.2 - 5.8 EF AP2-a2DQ 69.22 % LVDs 3.87 cm M: 2.5 - 4.0 EF BP-a2DQ 65.23 % Aortic Root 4.08 cm M: 3.1 - 3.7 LVESV 39 mL Aortic Root Index 1.9 cm/m2 LVEDV 113.41 mL M: 62 - 150 Ascending Aorta 3.41 cm M: 2.6 - 3.4 LV Volume Index 53.50 mL/m2 M: 34 - 74 Ascending Aorta Index: 1.6 cm/m2 LA Volume 55.9 mL Left Atrium 4.63 cm M: 3.0 - 4.0 LA Volume Index 26.37 mL/m2 (M/F) 16-34 LVOT 2.57 cm (M/F) 1.5-2.5 RV Major 2.68 cm TAPSE 2.1 >1.7 cm RV Minor 8.29 cm IVC 2.4 cm RVIDd 3.60 cm (M/F) 2.5-4.1 Right Atrium 7.0 cm (M/F) 2.9-4.5 LV Diastology E/A Ratio 1.1 Septal E' 0.06 (>=.07 m/s) LAT E' 0.09 (>=.10 m/s) Aortic Valve LVOT Max 0.99 (0.7-1.1 m/s) LVOT VTI 21.94 cm LVOT Peak GR 3.92 mmHg LVOT Mean GR 2.11 mmHg AV DI 0.67 (>0.25) AoV Peak Gabe. 1.65 (0.5-1.3 m/s) AV Vmean 1.11 m/s AO Peak GR. 10.96 mmHg AO Mean GR. 5.91 (<5 mmHg) AO VTI 32.7 (18-25 cm) CHANO (VTI) 3.48 (2.5-4.5 cm2) Mitral Valve MV E Max Gabe. 0.8 (0.4-1.3 m/s) MV A Velocity 0.75 (0.4-1.3 m/s) E/A Ratio 1.10 MV PHT 82.10 ms MVA PHT 2.68 cm2 MR Vmax 5.19 m/s MV Dec [place] 318.53 cm/s2 MV Decel. Time 259.10 (160-240 ms) Pulmonary Valve PV Peak Velocity 1.1 (0.5-1.5 m/s) OR End VMAX 1.9 m/s PV maxPG 4.5 mmHg PV Vmax 1.1 m/s Tricuspid Valve TR P. Velocity 3.45 m/s RAP Estimate 3 mmHg RVSP 50.64 mmHg TR maxPG 47.64 mmHg S' 0.15 m/s CARDIOLOGY Tien Head DO - 04/22/2023 APPROVED REPORT Other Information Study Quality: Good Conclusion Normal RV/LV size and function and ejection fraction 65%. Mild moderate 2+ mitral and tricuspid regurgitation with moderate pulmonary hypertension at 51 mmHg. Trace pericardial effusion. Compared to study 11/2019, no significant changes. Left Ventricle The left ventricle is normal size. Left ventricular systolic function is normal. There is normal left ventricular wall thickness. There is normal LV segmental wall motion. Left ventricular filling pattern is normal for age. LVEF is 65%. Right Ventricle The right ventricle is normal size. The right ventricular systolic function is normal. Atria Left atrium is moderately dilated. Right atrium is moderately dilated. Aortic Valve Mild aortic valve sclerosis. There is no aortic valvular stenosis. No aortic regurgitation is present. Mitral Valve The mitral valve is normal in structure. Mild moderate mitral regurgitation. Tricuspid Valve The tricuspid valve is normal in structure. Mild The RVSP is 50-55 mmHg. moderate tricuspid regurgitation. Pulmonic Valve The pulmonary valve is normal in structure. Great Vessels The aortic root is normal in size. Pericardium Trace pericardial effusion. EXAM: Comprehensive 2D, Doppler, and color-flow Echocardiogram Imaging system used: GE Vivid E9 2D Dimensions IVSd 1.0 cm M: 0.6-1.0LVEF (Parish's)65.23 % M: 52 - 72 PWd 1.0 cm M: 0.6 - 1.0EF AP4-a2DQ63.75 % LVDd 5.9 cm M: 4.2 - 5.8EF AP2-a2DQ69.22 % LVDs 3.87 cm M: 2.5 - 4.0EF BP-a2DQ65.23 % Aortic Root 4.08 cm M: 3.1 - 3.5ONTHL74 mL Aortic Root Index1.9 cm/n4LCQPM134.41 mL M: 62 - 150 Ascending Aorta 3.41 cm M: 2.6 - 3.4LV Volume Index53.50 mL/m2 M: 34 - 74 Ascending Aorta Index: 1.6 cm/m2LA [place]94.9 mL Left Atrium 4.63 cm M: 3.0 - 4.0LA Volume Index26.37 mL/m2 (M/F) 16-34 LVOT2.57 cm (M/F) 1.5-2.5RV Major 2.68 cm TAPSE 2.1 >1.7 cmRV Minor8.29 cm IVC2.4 cmRVIDd3.60 cm (M/F) 2.5-4.1 Right Atrium 7.0 cm (M/F) 2.9-4.5 LV Diastology E/A Ratio 1.1Septal E'0.06 (>=.07 m/s) LAT E'0.09 (>=.10 m/s) Aortic Valve LVOT Max0.99 (0.7-1.1 m/s)LVOT VTI21.94 cm LVOT Peak GR3.92 mmHgLVOT Mean GR2.11 mmHg AV DI0.67 (>0.25)AoV Peak Gabe.1.65 (0.5-1.3 m/s) AV Vmean 1.11 m/Red Peak GR.10.96 mmHg AO Mean GR.5.91 (<5 mmHg)AO VTI32.7 (18-25 cm) CHANO (VTI)3.48 (2.5-4.5 cm2) Mitral Valve MV E Max Gabe.0.8 (0.4-1.3 m/s)MV A Velocity0.75 (0.4-1.3 m/s) E/A Ratio1.10MV PHT82.10 ms MVA PHT2.68 cm2MR Vmax5.19 m/s MV Dec [place] 318.53 cm/s2MV Decel. Xtwf701.10 (160-240 ms) Pulmonary Valve PV Peak Velocity1.1 (0.5-1.5 m/s)OR End VMAX1.9 m/s PV maxPG4.5 mmHgPV Vmax1.1 m/s Tricuspid Valve TR P. Velocity3.45 m/sRAP Estimate3 mmHg RVSP50.64 mmHgTR maxPG 47.64 mmHg S'0.15 m/s [facility] Radiology Study observation (narrative) [facility] XR CHEST 2V FRONTAL/LATon [facility] XR Chest PA and Lateralon IMPRESSION: No acute radiographic abnormality. Boat Carpenter Mechanic: CRYSTAL Transcribe Date/Time: Apr 29 2022 4:42P Dictated by : PAUL ARGUETA MD This examination was interpreted and the report reviewed and electronically signed by: PAUL ARGUETA MD on Apr 29 2022 4:43PM EST DIVISION OF RADIOLOGY * * *Final Report* * * DATE OF EXAM: Apr 29 2022 3:53PM WOX 5291 - XR CHEST 2V FRONTAL/LAT / PROCEDURE REASON: Abnormal breath sounds * * * * Physician Interpretation * * * * EXAMINATION: CHEST RADIOGRAPH (2 VIEW FRONTAL & LATERAL) CLINICAL HISTORY: Abnormal breath sounds MQ: XC2_6 EXAM DATE/TIME: 04/29/2022 3:53 PM COMPARISON: 10/10/2021 RESULT: Lines, tubes, and devices: None. Lungs and pleura: No consolidation. No lung mass. No pleural effusion. No pneumothorax. Stable minimal atelectasis or fibrosis at the left lung base Cardiomediastinal silhouette: Normal cardiomediastinal silhouette. Bones and soft tissues: Unremarkable. DIVISION OF RADIOLOGY Provider, [facility] - 04/29/2022 * * *Final Report* * * DATE OF EXAM: Apr 29 2022 3:53PM WOX 5291 - XR CHEST 2V FRONTAL/LAT / PROCEDURE REASON: Abnormal breath sounds * * * * Physician Interpretation * * * * EXAMINATION: CHEST RADIOGRAPH (2 VIEW FRONTAL & LATERAL) CLINICAL HISTORY: Abnormal breath sounds MQ: XC2_6 EXAM DATE/TIME: 04/29/2022 3:53 PM COMPARISON: 10/10/2021 RESULT: Lines, tubes, and devices: None. Lungs and pleura: No consolidation. No lung mass. No pleural effusion. No pneumothorax. Stable minimal atelectasis or fibrosis at the left lung base Cardiomediastinal silhouette: Normal cardiomediastinal silhouette. Bones and soft tissues: Unremarkable. IMPRESSION IMPRESSION: No acute radiographic abnormality. Boat Carpenter Mechanic: PSCB Transcribe Date/Time: Apr 29 2022 4:42P Dictated by : PAUL ARGUETA MD This examination was interpreted and the report reviewed and electronically signed by: PAUL ARGUETA MD on Apr 29 2022 4:43PM EST [facility] Radiology Study observation (narrative) [facility] XR Chest PA and LateralOrder ed By: [facility] Provider on 04-29-[address] [facility] HbA1c (Bld)on 02-04-2022 Average glucose Estimated from glycated hemoglobin (Bld) [Mass/Vol] 120 mg/dL [facility] HbA1c (Bld) [Mass fraction] 5.8 % High 4.3 - 5.6 % [facility] UA DIP, URINE (POC)on 2021 BILIRUBIN UA (POCT) Negative Negative [facility] CLARITY UA (POCT) Clear [facility] COLOR UA (POCT) Yellow [facility] GLUCOSE UA (POCT) Negative Negative mg/dL [facility] HEMOGLOBIN/BLOOD UA (POCT) Trace-intact Abnormal Negative [facility] KETONE UA (POCT) Negative Negative mg/dL [facility] LEUKOCYTES [facility] (POCT) [facility] NITRITE UA (POCT) Negative Negative [facility] PH UA (POCT) 6.0 4.5 - 8.[address] [facility] Protein Ql (U) Negative Negative mg/dL [facility] SPECIFIC GRAVITY UA (POCT) 1.020 1.005 - 1.[address] [facility] UROBILINOGEN UA (POCT) 0.2 E.U./dL Normal E.U./dL [facility] SURGICAL PATHOLOGYon 022 Case Report Surgical Pathology Report Case: [id number] Authorizing Provider: Cortney Miranda MD Collected: 01/22/2022 01:53 PM Ordering Location: General Surgery Received: 01/22/2022 02:21 PM Pathologist: Yazmin Browning MD Specimen: SKIN EXCISION, posterior scalp [facility] Clinical History skin lesion [facility] FINAL DIAGNOSIS A. Skin, excision, posterior scalp: - Seborrheic keratosis, irritated and inflamed. MP/HP 01/23/[address] [facility] Gross Description A. SKIN EXCISION Received in formalin is an unoriented elliptical segment of skin and subcutaneous tissue measuring 0.7 x 0.5 x 0.6 cm. The entire skin surface demonstrates an irregular salazar elevated, lobulated area. The marigns are inked black. The specimen is bisected. Totally submitted in one cassette. Gross examination performed at [facility], [address] [place], [place] [id number] FFS 01/23/2022 1:[address] [facility] Performing Lab Diagnostic interpretation performed at [facility], [address] [place] [id number] IA# [id number] Base Engineer: Alfonso Dugan M.D. [facility] XR Chest PA and Lateralon IMPRESSION: No acute radiographic abnormality. Boat Carpenter Mechanic: CRYSTAL Transcribe Date/Time: Oct 11 2021 11:14A Dictated by : FANNIE SCOTT MD This examination was interpreted and the report reviewed and electronically signed by: FANNIE SCOTT MD on Oct 11 2021 11:14AM EST [email or web address] E_DIVISION OF RADIOLOGY * * *Final Report* * * DATE OF EXAM: Oct 10 2021 3:29PM WOX 5291 - XR CHEST 2V FRONTAL/LAT / PROCEDURE REASON: SOB (shortness of breath) * * * * Physician Interpretation * * * * EXAMINATION: CHEST RADIOGRAPH (2 VIEW FRONTAL & LATERAL) CLINICAL HISTORY: SOB (shortness of breath) MQ: XC2_6 EXAM DATE/TIME: 10/10/2021 3:29 PM COMPARISON: No relevant prior studies available. RESULT: Lines, tubes, and devices: None. Lungs and pleura: No consolidation. No lung mass. No pleural effusion. No pneumothorax. Cardiomediastinal silhouette: Normal cardiomediastinal silhouette. Bones and soft tissues: Degenerative changes are present within the thoracic spine. [email or web address] E_DIVISION OF RADIOLOGY Provider, [facility] - 10/11/2021 * * *Final Report* * * DATE OF EXAM: Oct 10 2021 3:29PM WOX 5291 - XR CHEST 2V FRONTAL/LAT / PROCEDURE REASON: SOB (shortness of breath) * * * * Physician Interpretation * * * * EXAMINATION: CHEST RADIOGRAPH (2 VIEW FRONTAL & LATERAL) CLINICAL HISTORY: SOB (shortness of breath) MQ: XC2_6 EXAM DATE/TIME: 10/10/2021 3:29 PM COMPARISON: No relevant prior studies available. RESULT: Lines, tubes, and devices: None. Lungs and pleura: No consolidation. No lung mass. No pleural effusion. No pneumothorax. Cardiomediastinal silhouette: Normal cardiomediastinal silhouette. Bones and soft tissues: Degenerative changes are present within the thoracic spine. IMPRESSION IMPRESSION: No acute radiographic abnormality. Boat Carpenter Mechanic: PSCB Transcribe Date/Time: Oct 11 2021 11:14A Dictated by : FANNIE SCOTT MD This examination was interpreted and the report reviewed and electronically signed by: FANNIE SCOTT MD on Oct 11 2021 11:14AM EST [facility] XR Chest PA and LateralOrder ed By: Ccf Provider on 10-11-[address] [facility] XR Chest PA and Lateralon Radiology Study observation (narrative) [facility] INR FINGERSTICK B/Oon 2021 INR Coag (Bld) [Relative time] 2.9 {INR} [facility] Quality Check Yes [facility] INR FINGERSTICK B/Oon 2021 INR Coag (Bld) [Relative time] 3.2 {INR} [facility] Quality Check No [facility] ECHOCARDIOGRAMon 11-10-2019 APPR [place] REPORT Conclusion Mild moderate mitral regurgitation with moderate tricuspid regurgitation, biatrial enlargement with normal LV/RV size and function. No significant change from previous study at [facility] Left Ventricle The left ventricle is normal size. Left ventricular systolic function is normal. Borderline concentric left ventricular hypertrophy. There is normal LV segmental wall motion. Left ventricular filling pattern is normal for age. LVEF is 65-70%. Right Ventricle The right ventricle is normal size. The right ventricular systolic function is normal. Atria Left atrium is moderately dilated. Right atrium is moderately dilated. Aortic Valve Mild aortic valve sclerosis. There is no aortic valvular stenosis. No aortic regurgitation is present. Mitral Valve The mitral valve is normal in structure. Mild to moderate mitral regurgitation. Tricuspid Valve The tricuspid valve is normal in structure. Tricuspid annulus is dilated. Moderate tricuspid regurgitation. The RVSP is 40-45 mmHg. Pulmonic Valve The pulmonary valve is normal in structure. Great Vessels The aortic root is normal in size. Pericardium There is no pericardial effusion. EXAM: Comprehensive 2D, Doppler, and color-flow Echocardiogram 2D Dimensions IVSd 1.0 cm M: 0.6-1.0 LVEF (Parish's) 66.07 % M: 52 - 72 PWd 1.1 cm M: 0.6 - 1.0 EF AP4-a2DQ 61.36 % LVDd 5.7 cm M: 4.2 - 5.8 EF AP2-a2DQ 68.15 % LVDs 3.66 cm M: 2.5 - 4.0 EF BP-a2DQ 66.07 % Aortic Root 3.76 cm M: 3.1 - 3.7 LVSV 39 mL Aortic Root Index 1.8 cm/m2 LV Volume 114.64 mL M: 62 - 150 Ascending Aorta 3.44 cm M: 2.6 - 3.4 LV Volume Index 54.59 mL/m2 M: 34 - 74 Ascending Aorta Index: 1.6 cm/m2 LA Volume Index 35.00 mL/m2 (M/F) 16-34 Left Atrium 3.99 cm M: 3.0 - 4.0 RV Major 3.80 cm LVOT 2.40 cm (M/F) 1.5-2.5 RV Minor 6.54 cm TAPSE 4.0 <1.7 cm RVID Base (AP4) 2.73 cm (M/F) 2.5-4.1 IVC 1.7 cm Right Atrium 6.2 cm (M/F) 2.9-4.5 LV Diastology E/A Ratio 1.3 Septal E' 0.06 (<.07 m/s) LAT E' 0.10 (<.10 m/s) Aortic Valve LVOT Max 1.13 (0.7-1.1 m/s) LVOT VTI 19.17 cm AV DI 0.59 (>0.25) AoV Peak Gabe. 1.65 (0.5-1.3 m/s) AV Vmean 1.06 m/s AO Peak GR. 10.94 mmHg AO Mean GR. 5.21 (<5 mmHg) AO VTI 32.7 (18-25 cm) CHANO (VTI) 2.64 (2.5-4.5 cm2) Mitral Valve MV E Max Gabe. 1.1 (0.4-1.3 m/s) MV A Velocity 0.84 (0.4-1.3 m/s) E/A Ratio 1.29 MV PHT 56.26 ms MVA PHT 3.91 cm2 MV Dec [place] 509.07 cm/s2 MV Decel. Time 214.17 (160-240 ms) Pulmonary Valve PV Peak Velocity 1.1 (0.5-1.5 m/s) OR End VMAX 2.4 m/s PV maxPG 5.1 mmHg PV Vmax 1.1 m/s OR End PG 5.21 mmHg Tricuspid Valve TR P. Velocity 3.19 m/s RAP Estimate 3 mmHg RVSP 43.80 mmHg TR maxPG 40.80 mmHg [employer] User, Interfaces - 11/10/2019 12:09 PM EDT APPROVED REPORT Conclusion Mild moderate mitral regurgitation with moderate tricuspid regurgitation, biatrial enlargement with normal LV/RV size and function. No significant change from previous study at [facility] Left Ventricle The left ventricle is normal size. Left ventricular systolic function is normal. Borderline concentric left ventricular hypertrophy. There is normal LV segmental wall motion. Left ventricular filling pattern is normal for age. LVEF is 65-70%. Right Ventricle The right ventricle is normal size. The right ventricular systolic function is normal. Atria Left atrium is moderately dilated. Right atrium is moderately dilated. Aortic Valve Mild aortic valve sclerosis. There is no aortic valvular stenosis. No aortic regurgitation is present. Mitral Valve The mitral valve is normal in structure. Mild to moderate mitral regurgitation. Tricuspid Valve The tricuspid valve is normal in structure. Tricuspid annulus is dilated. Moderate tricuspid regurgitation. The RVSP is 40-45 mmHg. Pulmonic Valve The pulmonary valve is normal in structure. Great Vessels The aortic root is normal in size. Pericardium There is no pericardial effusion. EXAM: Comprehensive 2D, Doppler, and color-flow Echocardiogram 2D Dimensions IVSd 1.0 cm M: 0.6-1.0LVEF (Parish's)66.07 % M: 52 - 72 PWd 1.1 cm M: 0.6 - 1.0EF AP4-a2DQ61.36 % LVDd 5.7 cm M: 4.2 - 5.8EF AP2-a2DQ68.15 % LVDs 3.66 cm M: 2.5 - 4.0EF BP-a2DQ66.07 % Aortic Root 3.76 cm M: 3.1 - 3.8LMZC19 mL Aortic Root Index1.8 cm/m2LV Ajkcsr018.64 mL M: 62 - 150 Ascending Aorta 3.44 cm M: 2.6 - 3.4LV Volume Index54.59 mL/m2 M: 34 - 74 Ascending Aorta Index: 1.6 cm/m2LA Volume Index35.00 mL/m2 (M/F) 16-34 Left Atrium 3.99 cm M: 3.0 - 4.0RV Major 3.80 cm LVOT2.40 cm (M/F) 1.5-2.5RV Minor6.54 cm TAPSE 4.0 <1.7 cmRVID Base (AP4)2.73 cm (M/F) 2.5-4.1 IVC1.7 cmRight Atrium 6.2 cm (M/F) 2.9-4.5 LV Diastology E/A Ratio 1.3Septal E'0.06 (<.07 m/s) LAT E'0.10 (<.10 m/s) Aortic Valve LVOT Max1.13 (0.7-1.1 m/s)LVOT VTI19.17 cm AV DI0.59 (>0.25)AoV Peak Gabe.1.65 (0.5-1.3 m/s) AV Vmean 1.06 m/Red Peak GR.10.94 mmHg AO Mean GR.5.21 (<5 mmHg)AO VTI32.7 (18-25 cm) CHANO (VTI)2.64 (2.5-4.5 cm2) Mitral Valve MV E Max Gabe.1.1 (0.4-1.3 m/s)MV A Velocity0.84 (0.4-1.3 m/s) E/A Ratio1.29MV PHT56.26 ms MVA PHT3.91 cm2MV Dec [place] 509.07 cm/s2 MV Decel. Vpnw506.17 (160-240 ms) Pulmonary Valve PV Peak Velocity1.1 (0.5-1.5 m/s)OR End VMAX2.4 m/s PV maxPG5.1 mmHgPV Vmax1.1 m/s OR End PG 5.21 mmHg Tricuspid Valve TR P. Velocity3.19 m/sRAP Estimate3 mmHg RVSP43.80 mmHgTR maxPG 40.80 mmHg [facility] Vital Signs Date Time Vital Sign Value Performing Clinician Facility 01-17-2025 09:00-0400 Diastolic blood pressure 62 mm[Hg] Michelle Gomez PT [facility] 01-17-2025 09:00-0400 Heart rate 71 /min Michelle Gomez PT [facility] 01-17-2025 09:00-0400 SaO2% (BldA) [Mass fraction] 96 % Michelle Gomez PT [facility] 01-17-2025 09:00-0400 Systolic blood pressure 125 mm[Hg] Michelle Gomez PT [facility] 01-16-2025 15:40-0400 Body height 177.8 cm Iglesia DOE Work Phone: [facility] 01-16-2025 15:40-0400 Body mass index (BMI) [Ratio] 29.5 kg/m2 Iglesia DOE Work Phone: [facility] 01-16-2025 15:40-0400 Body temperature 98.3 [degF] Iglesia DOE Work Phone: [facility] 01-16-2025 15:40-0400 Body weight 93.49 kg Iglesia Lara PA Work Phone: [facility] 01-16-2025 15:40-0400 Diastolic blood pressure 60 mm[Hg] Iglesia Lara PA Work Phone: [facility] 01-16-2025 15:40-0400 Heart rate 100 /min Iglesia Lara PA Work Phone: [facility] 01-16-2025 15:40-0400 Respiratory rate 18 /min Iglesia Lara PA Work Phone: [facility] 01-16-2025 15:40-0400 SaO2% (BldA) [Mass fraction] 96 % Iglesia Lara PA Work Phone: [facility] 01-16-2025 15:40-0400 Systolic blood pressure 110 mm[Hg] Iglesia Lara PA Work Phone: [facility] 12-07-2024 09:01-0400 Body mass index (BMI) [Ratio] 29.7 kg/m2 Tien Serrano MD Work Phone: [facility] 12-07-2024 09:01-0400 Body weight 93.89 kg Tien Serrano MD Work Phone: [facility] 12-07-2024 09:01-0400 Diastolic blood pressure 58 mm[Hg] Tien Serrano MD Work Phone: [facility] 12-07-2024 09:01-0400 Heart rate 49 /min Tien Serrano MD Work Phone: [facility] 12-07-2024 09:01-0400 SaO2% (BldA) [Mass fraction] 98 % Tien Serrano MD Work Phone: [facility] 12-07-2024 09:01-0400 Systolic blood pressure 118 mm[Hg] Tien Serrano MD Work Phone: [facility] 11-14-2024 08:55-0400 Body mass index (BMI) [Ratio] 29.18 kg/m2 Lia Griffin MD Work Phone: [facility] 11-14-2024 08:55-0400 Body weight 92.26 kg Lia Griffin MD Work Phone: [facility] 11-14-2024 08:55-0400 Diastolic blood pressure 74 mm[Hg] Lia Griffin MD Work Phone: [facility] 11-14-2024 08:55-0400 Heart rate 81 /min Lia Griffin MD Work Phone: [facility] 11-14-2024 08:55-0400 Respiratory rate 17 /min Lia Griffin MD Work Phone: [facility] 11-14-2024 08:55-0400 SaO2% (BldA) [Mass fraction] 94 % Lia Griffin MD Work Phone: [facility] 11-14-2024 08:55-0400 Systolic blood pressure 136 mm[Hg] Lia Griffin MD Work Phone: [facility] 11-02-2024 10:22-0400 Body height 177.8 cm Tien Serrano MD Work Phone: [facility] 11-02-2024 10:22-0400 Body mass index (BMI) [Ratio] 29.64 kg/m2 Tien Serrano MD Work Phone: [facility] 11-02-2024 10:22-0400 Body weight 93.71 kg Tien Serrano MD Work Phone: [facility] 11-02-2024 10:22-0400 Diastolic blood pressure 58 mm[Hg] Tien Serrano MD Work Phone: [facility] 11-02-2024 10:22-0400 Heart rate 79 /min Tien Serrano MD Work Phone: [facility] Comment on above: Irregular 11-02-2024 10:22-0400 SaO2% (BldA) [Mass fraction] 95 % Tien Serrano MD Work Phone: [facility] 11-02-2024 10:22-0400 Systolic blood pressure 110 mm[Hg] Tien Serrano MD Work Phone: [facility] 10-10-2024 19:15-0400 Body mass index (BMI) [Ratio] 29.7 kg/m2 Tien Serrano MD Work Phone: [facility] 10-10-2024 19:15-0400 Body weight 93.89 kg Tien Serrano MD Work Phone: [facility] 10-10-2024 19:15-0400 Diastolic blood pressure 68 mm[Hg] Tien Serrano MD Work Phone: [facility] 10-10-2024 19:15-0400 Heart rate 60 /min Tien Serrano MD Work Phone: [facility] 10-10-2024 19:15-0400 SaO2% (BldA) [Mass fraction] 95 % Tien Serrano MD Work Phone: [facility] 10-10-2024 19:15-0400 Systolic blood pressure 138 mm[Hg] Tien Serrano MD Work Phone: [facility] 05-02-2024 15:19-0500 Body mass index (BMI) [Ratio] 31.14 kg/m2 Tien Serrano MD Work Phone: [facility] 05-02-2024 15:19-0500 Body weight 98.43 kg Tien Serrano MD Work Phone: [facility] 05-02-2024 15:19-0500 Diastolic blood pressure 62 mm[Hg] Tien Serrano MD Work Phone: [facility] 05-02-2024 15:19-0500 Heart rate 49 /min Tien Serrano MD Work Phone: [facility] 05-02-2024 15:19-0500 SaO2% (BldA) [Mass fraction] 97 % Tien Serrano MD Work Phone: [facility] 05-02-2024 15:19-0500 Systolic blood pressure 122 mm[Hg] Tien Serrano MD Work Phone: [facility] 03-30-2024 09:00-0400 Diastolic blood pressure 47 mm[Hg] Michelle O'Yash PT [facility] 03-30-2024 09:00-0400 Heart rate 61 /min Michelle O'Yash PT [facility] 03-30-2024 09:00-0400 SaO2% (BldA) [Mass fraction] 95 % Michelle O'Yash PT [facility] 03-30-2024 09:00-0400 Systolic blood pressure 137 mm[Hg] Michelle O'Yash PT [facility] 03-23-2024 15:44-0400 Diastolic blood pressure 70 mm[Hg] Katy Haagen ANNEALING OPERATOR.[employer] Work Phone: [facility] 03-23-2024 15:44-0400 Heart rate 54 /min Katy Haagen ANNEALING OPERATOR.[employer]ER Work Phone: [facility] 03-23-2024 15:44-0400 Respiratory rate 16 /min Katy Haagen ANNEALING OPERATOR.[employer]ER Work Phone: [facility] 03-23-2024 15:44-0400 SaO2% (BldA) [Mass fraction] 96 % Katy Galdamez ANNEALING OPERATOR.[employer]ER Work Phone: [facility] 03-23-2024 15:44-0400 Systolic blood pressure 142 mm[Hg] Katy Rudolph ROBERTN.[employer]ER Work Phone: [facility] 02-15-2024 09:00-0400 Diastolic blood pressure 58 mm[Hg] Michelle O'Ysah PT [facility] 02-15-2024 09:00-0400 Heart rate 69 /min Michelle O'Yash PT [facility] 02-15-2024 09:00-0400 SaO2% (BldA) [Mass fraction] 98 % Michelle O'Yash PT [facility] 02-15-2024 09:00-0400 Systolic blood pressure 153 mm[Hg] Michelle O'Yash PT [facility] 02-11-2024 13:09-0400 Body height 177.8 cm Pulm Wstr Work Phone: [facility] 02-11-2024 13:09-0400 Body mass index (BMI) [Ratio] 29.99 kg/m2 Pulm Wstr Work Phone: [facility] 02-11-2024 13:09-0400 Body weight 94.8 kg Pulm Wstr Work Phone: [facility] 02-11-2024 13:09-0400 Diastolic blood pressure 57 mm[Hg] Pulm Wstr Work Phone: [facility] 02-11-2024 13:09-0400 Heart rate 66 /min Pulm Wstr Work Phone: [facility] 02-11-2024 13:09-0400 Respiratory rate 14 /min Pulm Wstr Work Phone: [facility] 02-11-2024 13:09-0400 SaO2% (BldA) [Mass fraction] 96 % Pulm Wstr Work Phone: [facility] 02-11-2024 13:09-0400 Systolic blood pressure 149 mm[Hg] Pulm Wstr Work Phone: [facility] 02-10-2024 11:23-0400 Body height 180.3 cm Tien Serrano MD Work Phone: [facility] 02-10-2024 11:23-0400 Body mass index (BMI) [Ratio] 29.15 kg/m2 Tien Serrano MD Work Phone: [facility] 02-10-2024 11:23-0400 Body weight 94.8 kg Tien Serrano MD Work Phone: [facility] 02-10-2024 11:23-0400 Diastolic blood pressure 56 mm[Hg] Tien Serrano MD Work Phone: [facility] 02-10-2024 11:23-0400 Heart rate 72 /min Tien Serrano MD Work Phone: [facility] 02-10-2024 11:23-0400 SaO2% (BldA) [Mass fraction] 96 % Tien Serrano MD Work Phone: [facility] 02-10-2024 11:23-0400 Systolic blood pressure 144 mm[Hg] Tien Serrano MD Work Phone: [facility] 12-29-2023 15:33-0400 Body height 180.3 cm Tien Serrano MD Work Phone: [facility] 12-29-2023 15:33-0400 Body mass index (BMI) [Ratio] 29.71 kg/m2 Tien Serrano MD Work Phone: [facility] 12-29-2023 15:33-0400 Body weight 96.62 kg Tien Serrano MD Work Phone: [facility] 12-29-2023 15:33-0400 Diastolic blood pressure 54 mm[Hg] Tien Serrano MD Work Phone: [facility] 12-29-2023 15:33-0400 Heart rate 64 /min Tien Serrano MD Work Phone: [facility] 12-29-2023 15:33-0400 SaO2% (BldA) [Mass fraction] 96 % Tien Serrano MD Work Phone: [facility] 12-29-2023 15:33-0400 Systolic blood pressure 128 mm[Hg] Tien Serrano MD Work Phone: [facility] 11-11-2023 09:38-0400 Body height 180.3 cm Tien Serrano MD Work Phone: [facility] 11-11-2023 09:38-0400 Body mass index (BMI) [Ratio] 29.01 kg/m2 Tien Serrano MD Work Phone: [facility] 11-11-2023 09:38-0400 Body weight 94.35 kg Tien Serrano MD Work Phone: [facility] 11-11-2023 09:38-0400 Diastolic blood pressure 68 mm[Hg] Tien Serrano MD Work Phone: [facility] 11-11-2023 09:38-0400 Heart rate 76 /min Tien Serrano MD Work Phone: [facility] 11-11-2023 09:38-0400 Systolic blood pressure 178 mm[Hg] Tien Serrano MD Work Phone: [facility] 03-27-2023 08:55-0400 Body weight 92.53 kg NA Ruiz PA-C Work Phone: [facility] 03-27-2023 08:55-0400 Diastolic blood pressure 62 mm[Hg] NA Ruiz PA-C Work Phone: [facility] 03-27-2023 08:55-0400 Heart rate 64 /min NA Ruiz PA-C Work Phone: [facility] 03-27-2023 08:55-0400 Respiratory rate 16 /min NA Ruiz PA-C Work Phone: [facility] 03-27-2023 08:55-0400 SaO2% (BldA) [Mass fraction] 95 % NA Ruiz PA-C Work Phone: [facility] 03-27-2023 08:55-0400 Systolic blood pressure 144 mm[Hg] NA Ruiz PA-C Work Phone: [facility] 02-19-2023 13:55-0400 Body weight 94.8 kg NA Ruiz PA-C Work Phone: [facility] 02-19-2023 13:55-0400 Diastolic blood pressure 80 mm[Hg] NA Ruiz PA-C Work Phone: [facility] 02-19-2023 13:55-0400 Heart rate 64 /min NA Ruiz PA-C Work Phone: [facility] 02-19-2023 13:55-0400 Respiratory rate 16 /min NA Ruiz PA-C Work Phone: [facility] 02-19-2023 13:55-0400 SaO2% (BldA) [Mass fraction] 98 % NA Ruiz PA-C Work Phone: [facility] 02-19-2023 13:55-0400 Systolic blood pressure 150 mm[Hg] NA Ruiz PA-C Work Phone: [facility] 11-24-2022 09:19-0400 Diastolic blood pressure 62 mm[Hg] Katy Haagen ANNEALING OPERATOR.[employer]ER Work Phone: [facility] 11-24-2022 09:19-0400 Heart rate 63 /min Katy Haagen ANNEALING OPERATOR.[employer]ER Work Phone: [facility] 11-24-2022 09:19-0400 Respiratory rate 16 /min Katy Haagen ANNEALING OPERATOR.[employer]ER Work Phone: [facility] 11-24-2022 09:19-0400 SaO2% (BldA) [Mass fraction] 96 % Katy Haagen ANNEALING OPERATOR.[employer]ER Work Phone: [facility] 11-24-2022 09:19-0400 Systolic blood pressure 150 mm[Hg] Katy Haagen ANNEALING OPERATOR.[employer] DO[employer] HANGER Work Phone: [facility] 04-29-2022 15:21-0500 Diastolic blood pressure 74 mm[Hg] Tien Serrano MD Work Phone: [facility] 04-29-2022 15:21-0500 Systolic blood pressure 136 mm[Hg] Tien Serrano MD Work Phone: [facility] 04-29-2022 14:46-0500 Body weight 95.25 kg Tien Serrano MD Work Phone: [facility] 04-29-2022 14:46-0500 Heart rate 66 /min Tien Serrano MD Work Phone: [facility] 04-29-2022 14:46-0500 Respiratory rate 16 /min Tien Serrano MD Work Phone: [facility] 04-29-2022 14:46-0500 SaO2% (BldA) [Mass fraction] 95 % Tien Serrano MD Work Phone: [facility] 01-30-2022 10:35-0400 Body height 180.3 cm NA Ruiz PA-C Work Phone: [facility] 01-30-2022 10:35-0400 Body temperature 98.4 [degF] NA Ruiz PA-C Work Phone: [facility] 01-30-2022 10:35-0400 Body weight 93.44 kg NA Ruiz PA-C Work Phone: [facility] 01-30-2022 10:35-0400 Diastolic blood pressure 60 mm[Hg] NA Ruiz PA-C Work Phone: [facility] 01-30-2022 10:35-0400 Heart rate 72 /min NA Ruiz PA-C Work Phone: [facility] 01-30-2022 10:35-0400 SaO2% (BldA) [Mass fraction] 96 % NA Ruiz PA-C Work Phone: [facility] 01-30-2022 10:35-0400 Systolic blood pressure 144 mm[Hg] NA Ruiz PA-C Work Phone: [facility] 01-15-2022 14:57-0400 Body height 180.3 cm Cortney Miranda MD Work Phone: [facility] 01-15-2022 14:57-0400 Body temperature 99.3 [degF] Cortney Miranda MD Work Phone: [facility] 01-15-2022 14:57-0400 Body weight 94.8 kg Cortney Miranda MD Work Phone: [facility] 01-15-2022 14:57-0400 Diastolic blood pressure 70 mm[Hg] Cortney Miranda MD Work Phone: [facility] 01-15-2022 14:57-0400 Heart rate 53 /min Cortney Miranda MD Work Phone: [facility] 01-15-2022 14:57-0400 SaO2% (BldA) [Mass fraction] 95 % Cortney Miranda MD Work Phone: [facility] 01-15-2022 14:57-0400 Systolic blood pressure 149 mm[Hg] Cortney Miranda MD Work Phone: [facility] 11-08-2021 12:00-0400 Diastolic blood pressure 73 mm[Hg] Tien Serrano MD Work Phone: [facility] 11-08-2021 12:00-0400 Heart rate 55 /min Tien Serrano MD Work Phone: [facility] 11-08-2021 12:00-0400 Systolic blood pressure 163 mm[Hg] Tien Serrano MD Work Phone: [facility] 11-08-2021 11:05-0400 Body weight 96.62 kg Tien Serrano MD Work Phone: [facility] 11-11-2018 10:53-0400 BMI (Body Mass Index) 29.99 kg/m2 [facility] 11-11-2018 10:53-0400 Body weight 94.8 kg [facility] 11-11-2018 10:53-0400 BP Diastolic 64 mm[Hg] [facility] 11-11-2018 10:53-0400 BP Systolic 130 mm[Hg] [facility] 11-11-2018 10:53-0400 Height 177.8 cm [facility] 11-11-2018 10:53-0400 Pulse (Heart Rate) 68 /min [facility] 11-11-2018 10:53-0400 Pulse [facility] 98 % [facility] 11-11-2018 10:53-0400 Respiratory Rate 16 /min [facility] Encounters Encounter Date Encounter Type Care Provider Facility Start: 02-21-2025 End: 02-21-2025 Refill Tien Serrano MD Work Phone: [facility] Comment on above: Refill Request Start: 02-20-2025 End: 02-20-2025 Telephone encounter Namita Antonieta [facility] Comment on above: Anticoagulation Tele phone Fu (Home INR Result ) Start: 02-07-2025 End: 02-07-2025 Telephone encounter Arabella John [facility] Comment on above: Anticoagulation Tele phone Fu (Home INR result) Start: 01-26-2025 End: 01-26-2025 ambulatory TIEN SERRANO Facility:[facility] Start: 01-23-2025 End: 01-23-2025 Telephone encounter Namita Gee [facility] Comment on above: Anticoagulation Tele phone Fu (Home INR Result ) Start: 01-19-2025 End: 01-28-2025 Telephone encounter Tien Serrano MD Work Phone: [facility] Comment on above: Results Start: 01-17-2025 End: 01-17-2025 ambulatory Michelle Gomez PT [facility] Physical Therapy Comment on above: Vertigo (Primary Dx) Start: 01-16-2025 End: 01-16-2025 ambulatory Iglesia Lara PA [facility] Start: 01-16-2025 End: 01-16-2025 Patient encounter procedure Iglesia Lara PA [facility] Work Phone: Start: 01-16-2025 End: 01-16-2025 Patient encounter procedure Blayne Davis APRN.[facility] Work Phone: [facility] Comment on above: Visit for suture rem oval (Primary Dx) Start: 01-16-2025 End: 01-16-2025 ambulatory TIEN SERRANO Facility:[facility] Start: 01-10-2025 End: 01-11-2025 ambulatory TIEN SERRANO Facility:[facility] Start: 01-09-2025 End: 01-09-2025 Telephone encounter Namita Gee [facility] Comment on above: Anticoagulation Tele phone Fu (Home INR Result ) Start: 01-05-[address] [facility] Start: 12-30-2024 End: 01-02-2025 Refill Tien Serrano MD Work Phone: [facility] Comment on above: Refill Request Start: 12-22-2024 End: 12-22-2024 Telephone encounter Jinny Shah [facility] Comment on above: Anticoagulation Tele phone Fu (Home INR) Start: 12-15-2024 End: 02-14-2025 Follow-up encounter Tien Serrano MD Work Phone: Pulmonology [facility] Start: 12-15-2024 End: 12-15-2024 ambulatory TIEN SERRANO Facility:[facility] Start: 12-08-2024 End: 02-07-2025 Follow-up encounter Tien Serrano MD Work Phone: [facility] Start: 12-07-2024 End: 12-07-2024 Telephone encounter Ghazal Bailey [facility] Comment on above: Anticoagulation Tele phone Fu (Home INR result) Start: 12-07-2024 End: 12-07-2024 ambulatory TIEN SERRANO Facility:[facility] Start: 12-07-2024 End: 12-07-2024 Patient encounter procedure Tien Serrano MD Work Phone: [facility] Comment on above: Vertigo (Primary Dx) ; Atrial fibrillation, unspecified type (HCC); Essential hypertension, benign; Chronic obstructive pulmonary disease, unspecified COPD type (HCC); Stage 3a chronic kidney disease (HCC); Hyperglycemia; USP (current) use of anticoagulants; History of DVT (deep vein thrombosis); Pulmonary HTN (HCC); Congestive heart failure, unspecified HF chronicity, unspecified heart failure type ([facility]); MARY BETH (obstructive sleep apnea) Start: 12-07-2024 End: 12-07-2024 ambulatory TIEN SERRANO Facility:[facility] Start: 11-28-2024 End: 11-28-2024 Refill Tien Serrano MD Work Phone: [facility] Comment on above: Refill Request Start: 11-22-2024 End: 11-22-2024 Telephone encounter Arabella Lopez [facility] Comment on above: Anticoagulation Tele phone Fu (Home INR result) Start: 11-18-2024 [facility] Start: 11-18-2024 End: 11-18-2024 Subsequent hospital visit by physician Tien Head DO Work Phone: [facility] Comment on above: Arrived Start: 11-14-2024 End: 11-14-2024 Patient encounter procedure Lia Griffin MD Work Phone: Pulmonary Medicine Comment on above: COPD, moderate (HCC) (Primary Dx); Former cigarette smoker; Moderate pulmonary hypertension (HCC) Start: 11-14-2024 End: 11-14-2024 ambulatory TIEN SERRANO Facility:[facility] Start: 11-09-2024 [facility]ulatory [facility] Start: 11-08-2024 End: 11-08-2024 Telephone encounter Tien Serrano MD Work Phone: [facility] Comment on above: Results Start: 11-07-2024 End: 11-07-2024 Telephone encounter Namita Gee [facility] Comment on above: Anticoagulation Tele phone Fu (Home INR Result ) Refill Request Start: 11-07-2024 End: 11-07-2024 ambulatory TIEN SERRANO Facility:[facility] Start: 11-02-2024 End: 11-02-2024 Patient encounter procedure Tien Serrano MD Work Phone: [facility] Comment on above: Essential hypertensi on, benign (Primary Dx); Screening for depression; Congestive heart failure, unspecified HF chronicity, unspecified heart failure type (HCC); Atrial fibrillation, unspecified type (HCC); Stage 3a chronic kidney disease (HCC); Chronic obstructive pulmonary disease, unspecified COPD type (HCC); SOB (shortness of breath) Start: 11-02-2024 End: 11-02-2024 ambulatory [facility] Facility:[facility] Start: 11-01-2024 End: 11-01-2024 ambulatory [facility] Facility:[facility] Start: 10-28-2024 End: 11-02-2024 Telephone encounter Tien Serrano MD Work Phone: [facility] Comment on above: Results Start: 10-27-2024 End: 10-27-2024 ambulatory [facility] Facility:[facility] Start: 10-20-2024 End: 10-20-2024 Telephone encounter Jinny Shah [facility] Comment on above: Anticoagulation Tele phone Fu (Home INR) Start: 10-12-2024 End: 12-12-2024 Follow-up encounter Tien Serrano MD Work Phone: [facility] Start: 10-11-2024 ambulatory [facility] Facility :[facility] Start: 10-11-2024 End: 10-11-2024 Subsequent hospital visit by physician Tyrell [facility] Polanco Work Phone: Radiology Comment on above: SOB (shortness of br eath) [R06.02] Start: 10-10-2024 End: 10-10-2024 Patient encounter procedure Tien Serrano MD Work Phone: [facility] Comment on above: COPD with exacerbati on (HCC) (Primary Dx); Atrial fibrillation, unspecified type (HCC); Essential hypertension, benign; Moderate mitral regurgitation; Moderate tricuspid regurgitation; Chronic obstructive pulmonary disease, unspecified COPD type (HCC); Stage 3a chronic kidney disease (HCC); Hyperglycemia; long term (current) use of anticoagulants; History of DVT (deep vein thrombosis); USP 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; SOB (shortness of breath) Start: 10-10-2024 End: 10-10-2024 ambulatory [facility] Start: 10-10-2024 End: 10-10-2024 Telephone encounter [facility] Comment on above: Anticoagulation Start: 10-04-2024 End: 10-04-2024 Refill Tien Serrano MD Work Phone: [facility] Comment on above: Refill Request Start: 09-22-2024 End: 09-22-2024 Telephone encounter Jinny Shah [facility] Comment on above: Anticoagulation Tele phone Fu (Home INR) Start: 09-06-2024 End: 09-06-2024 Telephone encounter Arabella Lopez [facility] Comment on above: Anticoagulation Tele phone Fu (Home INR result) Start: 08-18-2024 End: 08-19-2024 Refill Tien Serrano MD Work Phone: [facility] Comment on above: Refill Request Start: 08-17-2024 End: 08-17-2024 Telephone encounter Ghazal Smithcheko [facility] Comment on above: Anticoagulation Tele phone Fu (Home INR result ) Start: 08-02-2024 End: 08-02-2024 Telephone encounter Arabella John [facility] Comment on above: Anticoagulation Tele phone Fu (Home INR result) Start: 07-15-2024 End: 07-15-2024 Telephone encounter Arabella John [facility] Comment on above: Anticoagulation Tele phone Fu (Home INR result) Start: 06-29-2024 End: 06-29-2024 Telephone encounter Ghazal Smithcheko [facility] Comment on above: Anticoagulation Tele phone Fu (Home INR result ) Start: 06-27-2024 End: 06-27-2024 Refill Tien Serrano MD Work Phone: [facility] [place] Comment on above: Refill Request Start: 06-14-2024 End: 06-14-2024 Telephone encounter Arabella Lopez [facility] Start: 06-09-2024 End: 06-09-2024 Refill Alejandrina Quiglye APRN.CNP Work Phone: [facility] [place] Comment on above: Refill Request Start: 05-24-2024 End: 05-24-2024 Telephone encounter Arabella Lopez [facility] Comment on above: Anticoagulation Tele phone Fu (Home INR result) Start: 05-10-[address] [facility] Start: 05-09-2024 End: 05-09-2024 Telephone encounter Namita Antonieta [facility] Comment on above: Anticoagulation Tele phone Fu (Home INR Result ) Start: 05-02-2024 End: 05-02-2024 Patient encounter procedure Tien Serrano MD Work Phone: [facility] [place] Comment on above: Chronic obstructive pulmonary disease, unspecified COPD type (HCC) (Primary Dx); Atrial fibrillation, unspecified type (HCC); Essential hypertension, benign; Stage 3a chronic kidney disease (HCC); Generalized anxiety disorder; Anxiety; Encounter for immunization; Hyperglycemia Start: 05-02-2024 End: 05-02-2024 ambulatory TIEN SERRANO Facility:[facility] Start: 04-20-2024 End: 04-20-2024 Telephone encounter Ghazal Bailey [facility] Comment on above: Anticoagulation Tele phone Fu (Home INR results ) Start: 04-01-2024 End: 04-01-2024 Refill Tien Serrano MD Work Phone: [facility] Comment on above: Refill Request Start: 03-31-2024 End: 03-31-2024 Telephone encounter Jinny Shah [facility] Comment on above: Anticoagulation Tele phone Fu (Home INR) Start: 03-30-2024 End: 03-30-2024 ambulatory Michelle Gomez PT [place] [facility] Physical Therapy Comment on above: Lightheaded (Primary Dx); Benign paroxysmal positional vertigo of right ear Start: 03-23-2024 End: 03-23-2024 Office outpatient visit 25 minutes Katy Galdamez APRN.CNP Work Phone: [facility] [place] Comment on above: Chronic obstructive pulmonary disease, unspecified COPD type (HCC) (Primary Dx); Irritable bowel syndrome with diarrhea Start: 03-23-2024 End: 03-23-2024 ambulatory KATY GALDAMEZ Facility:[facility] Start: 03-16-2024 End: 03-16-2024 Telephone encounter Bea Adan [facility] Comment on above: Anticoagulation Tele phone Fu (INR Home Test Result) Start: 03-16-2024 End: 03-16-2024 ambulatory Michelle O'Yash PT [facility] Physical Therapy Comment on above: Lightheaded (Primary Dx); Benign paroxysmal positional vertigo of right ear Start: 03-03-2024 End: 03-03-2024 Telephone encounter Jinny Shah [facility] Comment on above: Anticoagulation Tele phone Fu (Home INR) Start: 02-29-2024 End: 02-29-2024 ambulatory Michelle O'Yash PT [facility] Physical Therapy Comment on above: Lightheaded (Primary Dx); Benign paroxysmal positional vertigo of right ear Start: 02-18-2024 End: 02-18-2024 Telephone encounter Jinny Shah [facility] Comment on above: Anticoagulation Tele phone Fu (Home INR) Start: 02-15-2024 End: 02-15-2024 ambulatory Michelle O'Yash PT [facility] Physical Therapy Comment on above: Lightheaded (Primary Dx); Benign paroxysmal positional vertigo of right ear Start: 02-12-2024 End: 02-12-2024 Telephone encounter Tien Serrano MD Work Phone: [facility] Comment on above: Results Start: 02-11-2024 End: 02-11-2024 ambulatory Pulm [facility] Work Phone: PULM LAB [facility] Comment on above: Spirometry Start: 02-11-2024 End: 02-11-2024 Patient encounter procedure [facility] Work Phone: PULM [facility] Start: 02-10-2024 End: 02-10-2024 Subsequent hospital visit by physician Xr [facility] [place] Work Phone: Radiology Comment on above: Lightheadedness [R42 ] Start: 02-10-2024 End: 02-10-2024 Patient encounter procedure Tien Serrano MD Work Phone: [facility] Comment on above: SOB (shortness of br eath) (Primary Dx); Lightheadedness; Lightheaded Start: 02-04-2024 End: 02-04-2024 Telephone encounter Jamie Zelayazman [facility] Comment on above: Anticoagulation Tele phone Fu Start: 02-02-2024 End: 02-02-2024 ambulatory Michelle Gomez PT [place] [facility] Physical Therapy Comment on above: Lightheaded (Primary Dx); Benign paroxysmal positional vertigo of right ear Refill Request Start: 01-30-2024 End: 02-01-2024 Get Medical Advice Tien Serrano MD Work Phone: [facility] [place] Comment on above: Refill for flecainid e Start: 01-28-2024 End: 01-29-2024 Refill Tien Serrano MD Work Phone: [facility] Comment on above: Refill Request Start: 01-21-2024 Telephone encounter Jinny adams [facility] Comment on above: Anticoagulation Tele phone Fu (Home INR) Start: 01-09-2024 Refill Tien Serrano MD Work Phone: [facility] Comment on above: Refill Request Start: 01-05-2024 End: 06-29-2024 Telephone encounter Pharmacist [facility] Comment on above: Patient Update (Note s request) Start: 01-04-2024 Telephone encounter Namita [facility] Comment on above: Anticoagulation Tele phone Fu (Home INR Result ) Start: 12-29-2023 End: 12-29-2023 Patient encounter procedure Tien Serrano MD Work Phone: [facility] Comment on above: Lightheaded (Primary Dx); Atrial fibrillation, unspecified type (HCC); Essential hypertension, benign; Moderate mitral regurgitation; Moderate tricuspid regurgitation; Hyperglycemia; Generalized anxiety disorder; History of DVT (deep vein thrombosis); Benign paroxysmal positional vertigo of right ear; SOB (shortness of breath) Start: 12-18-2023 Telephone encounter Arabella Lopez [facility] Tele[facility] Comment on above: Anticoagulation Tele phone Fu (Home INR result) Start: 12-03-2023 Telephone encounter Jinny adams [facility] Comment on above: Anticoagulation Tele phone Fu (Home INR) Start: 11-30-2023 End: 11-30-2023 Subsequent hospital visit by physician Tien Head DO Work Phone: [facility] Echocardi[facility] Comment on above: Arrived Start: 11-27-2023 Telephone encounter Arabella Wilidaniel RPh P [facility]acy Ambulatory Telemanagement Comment on above: Anticoagulation Tele phone Fu (Home INR result) Start: 11-12-2023 Telephone encounter Tien Serrano MD Work Phone: [facility] [place] Comment on above: Results Start: 11-11-2023 End: 11-11-2023 Patient encounter procedure Tien Serrano MD Work Phone: [facility] [place] Comment on above: Atrial fibrillation, unspecified type (HCC) (Primary Dx); Essential hypertension, benign; Moderate mitral regurgitation; Stage 3a chronic kidney disease (HCC); Hyperglycemia; Hx of skin cancer, basal cell; Generalized anxiety disorder; long term (current) use of anticoagulants; long term 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; Balance problem; Impacted cerumen of left ear Start: 10-30-2023 Telephone encounter Ghazal Sanches [facility] Comment on above: Anticoagulation Tele phone Fu Start: 10-15-2023 Refill Tien Serrano MD Work Phone: [facility] [place] Comment on above: Refill Request Start: 10-13-2023 Telephone encounter Arabella Lopez RPh P [facility] Comment on above: Anticoagulation Tele phone Fu (Home INR result) Start: 09-24-2023 Telephone encounter Arabella John RPh P [facility] Comment on above: Anticoagulation Tele phone Fu (Home INR result) Start: 09-09-2023 Telephone encounter Bea Loco RPh P [facility] Comment on above: Anticoagulation Tele phone Fu (INR Home Test Result) Start: 08-21-2023 Telephone encounter Bea Loco RPh P [facility] Comment on above: Anticoagulation Tele phone Fu (INR Home Result) Start: 07-25-2023 Refill Tien Serrano MD Work Phone: [facility] [place] Comment on above: Refill Request new pharmacy provide r Start: 07-14-2023 Telephone encounter Arabella Lopez [facility] Tele[facility] Comment on above: Anticoagulation Tele phone Fu (Home INR result) Start: 05-15-2023 Telephone encounter Namita [facility] Comment on above: Anticoagulation Tele phone Fu (Home INR Result ) Start: 04-22-2023 End: 04-22-2023 Subsequent hospital visit by physician Tien Head DO Work Phone: [facility] Comment on above: Arrived Start: 04-16-2023 [facility] Comment on above: Anticoagulation Tele phone Fu (Home INR) Start: 03-31-2023 Telephone encounter Arabella Lopez [facility] Comment on above: Anticoagulation Tele phone Fu (Home INR result) Start: 03-27-2023 End: 03-27-2023 Patient encounter procedure Paulino Namita Ruiz PA-C Work Phone: [facility] Comment on above: Hypertensive kidney disease with stage 3a chronic kidney disease (HCC) (Primary Dx); Hyperlipidemia LDL goal <100; Atrial fibrillation, unspecified type (HCC); USP 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; Moderate mitral regurgitation; Moderate tricuspid regurgitation; Asymptomatic LV dysfunction; Venous (peripheral) insufficiency; History of DVT (deep vein thrombosis); USP (current) use of anticoagulants; Generalized anxiety disorder; Hyperglycemia; Encounter for immunization Start: 03-12-2023 Telephone encounter Jinny adams [facility] Comment on above: Anticoagulation Tele phone Fu (Home INR) Start: 02-26-2023 Telephone encounter [facility] Comment on above: Anticoagulation Tele phone Fu (Home INR) Start: 02-19-2023 End: 02-19-2023 Patient encounter procedure Paulino Namita Ruiz PA-C Work Phone: [facility] Comment on above: Essential hypertensi on, benign (Primary Dx); Stage 3a chronic kidney disease (HCC); Generalized anxiety disorder; USP 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; Atrial fibrillation, unspecified type (HCC); Dizziness; Valvular heart disease Start: 02-19-2023 Telephone encounter Tien Serrano MD Work Phone: [facility] [place] Comment on above: Medication Request Start: 02-18-2023 Refill Tien Serrano MD Work Phone: [facility] [place] Comment on above: Refill Request Start: 02-10-2023 Telephone encounter Arabella Lopez RPh P [facility] Comment on above: Anticoagulation Tele phone Fu Start: 01-23-2023 Telephone encounter Bea Loco [facility] Tele[facility] Comment on above: Anticoagulation Tele phone Fu Start: 01-07-2023 Refill Tien Serrano MD Work Phone: [facility] [place] Comment on above: Refill Request Start: 01-06-2023 Telephone encounter Namita Gee R [facility] Tele[facility] Comment on above: Anticoagulation (Marcello e INR Result ) Start: 12-19-2022 Telephone encounter Bea Loco [facility] Tele[facility] Comment on above: Anticoagulation Tele phone Fu Start: 12-15-2022 Refill Tien Serrano MD Work Phone: [facility] [place] Comment on above: Refill Request Start: 12-05-2022 Telephone encounter Ghazal [facility] Comment on above: Anticoagulation Tele phone Fu (Home INR result ) BP Readings Start: 11-24-2022 Telephone encounter Katy soria APRN.[employer] Work Phone: [facility] Comment on above: Consult Start: 11-24-2022 End: 11-24-2022 Office outpatient visit 15 minutes Katy Galdamez APRN.[employer] Work Phone: [facility] [place] Comment on above: Essential hypertensi on, benign (Primary Dx); Screening for colon cancer Start: 11-20-2022 Telephone encounter Marcelina ricci [facility] Work Phone: [facility] Comment on above: Anticoagulation Tele phone Fu Start: 11-05-2022 Telephone encounter Ghazal [facility] Comment on above: Anticoagulation Tele phone Fu (Home INR result ) Start: 10-22-2022 Telephone encounter Jamie Motley [facility]ulatory Tele[facility] Comment on above: Anticoagulation Tele phone Fu (Home INR Result) Start: 10-21-2022 Telephone encounter Love Awad [facility] Comment on above: Anticoagulation Tele phone Fu (Home INR ) Start: 09-08-2022 Telephone encounter Namita Antonieta [facility] Comment on above: Anticoagulation Tele phone Fu (Home INR Result ) Start: 08-26-2022 Telephone encounter Arabella John CASTREJON P [facility]acy Ambulatory Telemanagement Comment on above: Anticoagulation Tele phone Fu (Home INR expected) Start: 08-21-2022 Refill Tien Serrano MD Work Phone: [facility] [place] Comment on above: Refill Request Start: 08-13-2022 Telephone encounter Ghazal Lynn [facility] Comment on above: Anticoagulation Tele phone Fu (Home INR) Start: 08-06-2022 Refill Tien Serrano MD Work Phone: [facility] [place] Comment on above: Refill Request Start: 07-24-2022 Telephone encounter Jinny adams [facility] Comment on above: Anticoagulation Tele phone Fu (Home INR ) Start: 07-11-2022 Telephone encounter Bea Loco [facility] Telemanagement Comment on above: Anticoagulation Tele phone Fu (INR Home Test Result) Start: 06-24-2022 Telephone encounter Arabella John RPh P [facility] Comment on above: Anticoagulation Tele phone Fu (Home INR) Start: 06-05-2022 Telephone encounter Jinny adams [facility] Comment on above: Anticoagulation Tele phone Fu (Home INR result) Start: 05-22-2022 Telephone encounter Jinny adams [facility] Comment on above: Anticoagulation Tele phone Fu (Home INR result) Start: 05-06-2022 Telephone encounter Arabella John CASTREJONh P [facility] Tele[facility] Comment on above: Anticoagulation Tele phone Fu (Home INR) Start: 04-29-2022 End: 04-29-2022 Subsequent hospital visit by physician Tyrell [facility] [place] Work Phone: Radiology Comment on above: Abnormal breath soun ds [R06.89] Start: 04-29-2022 End: 04-29-2022 Patient encounter procedure Tien Serrano MD Work Phone: [facility] [place] Comment on above: Essential hypertensi on, benign (Primary Dx); Hyperlipidemia LDL goal <100; Atrial fibrillation, unspecified type (HCC); Moderate tricuspid regurgitation; Stage 3a chronic kidney disease (HCC); Hyperglycemia; Hx of skin cancer, basal cell; Generalized anxiety disorder; Abnormal breath sounds Start: 04-22-2022 Telephone encounter Arabella John [facility] Tele[facility] Comment on above: Anticoagulation Tele phone Fu (Home INR) Start: 04-07-2022 Telephone encounter Namita [facility] Comment on above: Anticoagulation Tele phone Fu (Home INR Result) Start: 04-04-2022 Telephone encounter Bea Loco [facility] Tele[facility] Comment on above: Anticoagulation Tele phone Fu Start: 03-21-2022 Telephone encounter Bea Adan [facility] Tele[facility] Comment on above: Anticoagulation Tele phone Fu (INR Home Test Result) Start: 03-19-2022 Telephone encounter Rere Roberto [facility] Comment on above: Anticoagulation Tele phone Fu Start: 02-20-2022 Refill Tien Serrano MD Work Phone: [facility] [place] Comment on above: Refill Request Start: 02-18-2022 Telephone encounter Marcelina Mark [facility] Comment on above: Anticoagulation Tele phone Fu Start: 02-03-2022 Telephone encounter Paulino Ruiz PA-C Work Phone: [facility] [place] Comment on above: Opened In Error Results, Lab Anticoagulation Tele phone Fu (Home INR /) Results Start: 01-30-2022 End: 01-30-2022 Patient encounter procedure Paulino Ruiz PA-C Work Phone: [facility] [place] Comment on above: Abdominal pain, left lateral (Primary Dx) Start: 01-24-2022 Telephone encounter Cortney Lozada MD Work Phone: General Surgery Comment on above: Results Start: 01-22-2022 End: 01-22-2022 Patient encounter procedure Cortney Miranda MD Work Phone: General Surgery Comment on above: Skin lesion (Primary Dx); Dysesthesia Start: 01-15-2022 End: 01-15-2022 Patient encounter procedure Cortney Miranda MD Work Phone: General Surgery Comment on above: Skin lesion (Primary Dx) Start: 01-08-2022 Telephone encounter Ghazal Bailey [facility] Tele[facility] Comment on above: Anticoagulation Tele phone Fu (Home INR result) Start: 2021 Telephone encounter Ghazal Bailey R [facility] Tele[facility] Comment on above: Anticoagulation Tele phone Fu (Home INR result) Blood Pressure Check Start: 11-26-2021 Telephone encounter Arabella Lopez RP P [facility] Tele[facility] Comment on above: Anticoagulation Tele phone Fu Start: 11-08-2021 End: 11-08-2021 Patient encounter procedure Tien Serrano MD Work Phone: [facility] Comment on above: Hypertensive kidney disease with stage 3a chronic kidney disease (HCC) (Primary Dx); Moderate tricuspid regurgitation; Atrial fibrillation, unspecified type (HCC); Essential hypertension, benign; Stage 3a chronic kidney disease (HCC); SOB (shortness of breath); Generalized anxiety disorder; Hx of skin cancer, basal cell Start: 10-28-2021 Telephone encounter Love Awad [facility] Comment on above: Anticoagulation Tele phone Fu (Home INR ) Start: 10-14-2021 Telephone encounter Namita Antonieta [facility] Comment on above: Anticoagulation Tele phone Fu (Home INR Result) Start: 10-11-2021 Telephone encounter Tien Serrano MD Work Phone: [facility] Comment on above: Results Start: 10-10-2021 End: 10-10-2021 Subsequent hospital visit by physician Tyrell [facility] [place] Work Phone: Radiology Comment on above: SOB (shortness of br eath) [R06.02] Start: 09-30-2021 Telephone encounter Arabella Lopez RPh P [facility] Comment on above: Anticoagulation Tele phone Fu (Home INR result) Start: 09-16-2021 Refill Tien Serrano MD Work Phone: [facility] [place] Comment on above: Refill Request Anticoagulation Tele phone Fu (Home INR Result) Start: 09-03-2021 Telephone encounter Arabella Rasheeddaniel [facility] Comment on above: Anticoagulation Tele phone Fu (Home INR result) Start: 04-25-2021 Telephone encounter Tien Serrano MD Work Phone: [facility] [place] Comment on above: Blood Pressure Check Start: 11-10-2019 End: 11-10-2019 Subsequent hospital visit by physician Tien Head Work Phone: [facility] E[facility] Comment on above: Arrived Start: 11-11-2018 End: 11-11-2018 Office outpatient visit 15 minutes Tien eHad Work Phone: [facility] Cardiology Comment on above: Moderate mitral regu rgitation (Primary Dx); Paroxysmal atrial fibrillation; Chronic anticoagulation; Essential hypertension; Palpitations Procedures Date Procedure Procedure Detail Performing Clinician Start: 02-11-2024 End: 02-11-2024 Brncdilat rspse spmtry pre&post-brncdilat admn Tien Serrano MD Work Phone: Start: 02-10-2024 Radiologic exam chest 2 views Tien Serrano MD Work Phone: Start: 11-30-2023 Echo tthrc r-t 2d w/ wo m-mode complete rest&st Tien Head DO Work Phone: Start: 11-11-2023 Adult depression scr eening assessment Namita Gee [facility] Start: 04-22-2023 Echo tthrc r-t 2d w/ wom-mode compl spec&colr d Tien Head DO Work Phone: Start: 03-27-2023 INFLUENZA VACCINE, P RSV FREE, AGE 65+ YR, HIGH DOSE, QUADRIVALENT (FLUZONE HIGH-DOSE) M Namita Ruiz PA-C Work Phone: Start: 03-27-2023 [employer] COVI D-19 VACCINE (2022- SEASON) AGE 12+ YR M Nmaita Ruiz PA-C Work Phone: Start: 04-29-2022 Radiologic exam chest 2 views Tien Serrano MD Work Phone: Start: 01-30-2022 Urnls dip stick/tabl et rgnt auto w/o microscopy M Namita Ruiz PA-C Work Phone: Start: 01-22-2022 SURGICAL PATHOLOGY Oanh Miranda MD Work Phone: Start: 10-10-2021 Radiologic exam chest 2 views Tien Serrano MD Work Phone: Start: 09-16-2021 Prothrombin time [facility] Start: 09-02-2021 Prothrombin time [facility] Start: 03-09-2021 Adult depression scr eening assessment Arabella Lopez [facility] Start: 11-10-2019 Transthoracic echocardiography Tien Head Work Phone: Plan of Treatment Date Care Activity Detail Author Start: 05-02-2029 Tetanus vaccination TETANUS [facility] Start: 05-02-2029 Urine microalbumin profile [facility] Start: 01-27-2028 Diabetes Screening Diabetes Screening [facility] Start: 12-16-2027 Diabetes Screening Diabetes Screening [facility] Start: 12-08-2027 Diabetes Screening Diabetes Screening [facility] Start: 11-08-2027 Diabetes Screening Diabetes Screening [facility] Start: 11-02-2027 Diabetes Screening Diabetes Screening [facility] Start: 12-27-2026 Diabetes Screening Diabetes Screening [facility] Start: 11-10-2026 Diabetes Screening Diabetes Screening [facility] Start: 03-23-2026 Diabetes Screening Diabetes Screening [facility] Start: 11-20-2025 DIABETES SCREEN DIABETES SCREEN [facility] Start: 11-20-2025 Diabetes Screening Diabetes Screening [facility] Start: 10-27-2025 DIABETES SCREEN DIABETES SCREEN [facility] Start: 05-16-2025 End: 05-16-2025 Patient encounter procedure 05/16/2025 9:00 AM EST Office Visit [facility] [address] [place] [address] Tien Head, [address] [place] [address] [facility] Start: 04-22-2025 End: 04-22-2025 Patient encounter procedure 04/22/2025 8:40 AM EST Office Visit [facility] [place] [address] [place] [address] Tien Serrano MD [address] [place] [address] 4 month follow up [facility] [place] Comment on above: 4 month follow up Start: 03-17-2025 End: 03-17-2025 Patient encounter procedure Pulmonary Medicine Comment on above: 4 month f/u Start: 02-09-2025 Covid-19 Vaccine () Covid-19 Vaccine () [facility] Comment on above: Postponed from 02/07/2024 (Declined at t his time) Start: 02-09-2025 Covid-19 Vaccine () Covid-19 Vaccine () [facility] Comment on above: Postponed from 02/07/2024 (Declined at t his time) Start: 02-06-2025 Influenza vaccination Influenza Vaccine [facility] Start: 01-30-2025 DIABETES SCREEN DIABETES SCREEN [facility] Start: 01-26-2025 End: 01-26-2025 ambulatory 01/26/2025 8:15 AM EDT Results Only [place] [facility] Laboratory [address] [place] [address] [place] [facility] Start: 01-17-2025 End: 01-17-2025 ambulatory 01/17/2025 9:45 AM EDT OT/PT/Speech Visit [facility] [address] [place] [address] Michelle Gomez, PT Vertigo [R42] [facility] Comment on above: Vertigo [R42] Start: 01-11-2025 End: 01-11-2025 Patient encounter procedure 01/11/2025 2:00 PM EDT Office Visit Neurology [address] [place] [address] MARY BETH (obstructive sleep apnea) [G47.33] Neurology Comment on above: MARY BETH (obstructive sleep apnea) [G47.33] Start: 12-15-2024 End: 12-15-2024 ambulatory 12/15/2024 8:15 AM EDT Results Only [place] [facility] [address] [place] [address] [facility] Start: 12-07-2024 End: 03-08-2025 Basic metabolic 2000 panel - Serum or Plasma [facility] Work Phone: Comment on above: Expected: 12/07/2024, Expires: Start: 12-07-2024 End: 03-08-2025 Magnesium [Mass/volume] in Serum or Plasma [facility] Comment on above: Expected: 12/07/2024, Expires: Start: 12-07-2024 End: 12-07-2024 Patient encounter procedure 12/07/2024 9:00 AM EDT Office Visit Family Medicine Sean [address] [place] [address] Tien Serrano MD [address] [place] [address] 6 week follow up [facility] [place] Comment on above: 6 week follow up Start: 12-05-2024 Influenza vaccination Influenza Vaccine (#1) [facility] Comment on above: Postponed from 02/07/2024 (Declined at t his time) Start: 11-14-2024 End: 11-14-2024 Patient encounter procedure 11/14/2024 8:45 AM EDT Office Visit Pulmonary Medicine [address] [place] [address] Lia Griffin MD [address] [place] [place] [address] Chronic obstructive pulmonary disease, unspecified COPD type (HCC) [J44.9]; SOB (shortness of breath) [R06.02] Pulmonary Medicine Comment on above: Chronic obstructive pulmonary disease, u nspecified COPD type (HCC) [J44.9]; SOB (shortness of breath) [R06.02] Start: 11-10-2024 Depression Screening Depression Screening [facility] Start: 11-07-2024 End: 11-07-2024 ambulatory 11/07/2024 9:45 AM EDT [facility] [address] [place] [address] [facility] [place] [address] [facility] Start: 11-02-2024 End: 02-01-2025 Basic metabolic 2000 panel - Serum or Plasma BASIC METABOLIC PANEL Lab Routine Essential hypertension, benign Expected: 11/02/2024, Expires: 02/01/2025 [facility] Work Phone: Comment on above: Expected: 11/02/2024, Expires: Start: 11-02-2024 End: 02-01-2025 Magnesium [Mass/volume] in Serum or Plasma MAGNESIUM Lab Routine Essential hypertension, benign Expected: 11/02/2024, Expires: 02/01/[address] [facility] Comment on above: Expected: 11/02/2024, Expires: Start: 11-02-2024 End: 02-01-2025 Natriuretic peptide.B prohormone N-Terminal [Mass/volume] in Serum or Plasma NT PRO BNP Lab Routine Congestive heart failure, unspecified HF chronicity, unspecified heart failure type (HCC) Expected: 11/02/2024, Expires: 02/01/[address] [facility] Comment on above: Expected: 11/02/2024, Expires: Start: 11-02-2024 End: 11-02-2024 Patient encounter procedure 11/02/2024 10:20 AM EDT Office Visit Family Medicine [place] [address] [place] [address] Tien Serrano MD [address] [place] [address] 6 month follow up Family Medicine [place] Comment on above: 6 month follow up Start: 10-30-2024 End: 01-29-2025 CBC W Auto Differential panel - Blood COMPLETE BLOOD COUNT AND DIFFERENTIAL Lab Routine Essential hypertension, benign Expected: 10/30/2024, Expires: 01/29/2025 [facility] Work Phone: Comment on above: Expected: 10/30/2024, Expires: Start: 10-30-2024 End: 01-29-2025 Comprehensive metabolic 2000 panel - Serum or Plasma COMPREHENSIVE METABOLIC PANEL Lab Routine Essential hypertension, benign Expected: 10/30/2024, Expires: 01/29/[address] [facility] Comment on above: Expected: 10/30/2024, Expires: Start: 10-30-2024 End: 01-29-2025 Hemoglobin A1c in Blood HEMOGLOBIN A1C Lab Routine Hyperglycemia Expected: 10/30/2024, Expires: 01/29/[address] [facility] Comment on above: Expected: 10/30/2024, Expires: Start: 10-30-2024 End: 01-29-2025 Lipid 1996 panel - Serum or Plasma LIPID PANEL BASIC Lab Routine Essential hypertension, benign Expected: 10/30/2024, Expires: 01/29/[address] [facility] Comment on above: Expected: 10/30/2024, Expires: Start: 10-27-2024 End: 10-27-2024 ambulatory 10/27/2024 9:30 AM EDT Results Only [place] [facility] [address] [place] [address] [facility] Start: 10-15-2024 DIABETES SCREEN DIABETES SCREEN [facility] Start: 10-10-2024 End: 10-10-2024 Patient encounter procedure 10/10/2024 7:20 PM EDT Office Visit Family [place] [address] [place] [address] Tien Serrano MD [address] [place] [address] discuss referral to pulm Family [facility] [place] Comment on above: discuss referral to pulm Start: 10-10-2024 DIABETES SCREEN DIABETES SCREEN [facility] Start: 10-10-2024 End: 01-09-2025 Natriuretic peptide.B prohormone N-Terminal [Mass/volume] in Serum or Plasma NT PRO BNP Lab Routine SOB (shortness of breath) Expected: 10/10/2024, Expires: 01/09/2025 [facility] Work Phone: Comment on above: Expected: 10/10/2024, Expires: Start: 09-02-2024 Covid-19 Vaccine () Covid-19 Vaccine () [facility] Start: 06-08-2024 Advance Directive Discussion Advance Directive Discussion [facility] Start: 06-08-2024 Medicare Advantage Annual Wellness Visit Medicare Advantage Annual Wellness Visit [facility] Start: 05-10-2024 End: 05-10-2024 Patient encounter procedure 05/10/2024 10:00 AM EST Office Visit [facility] [address] [place] [address] Tien Head DO [address] [place] [address] [facility] Start: 05-02-2024 End: 05-02-2024 Patient encounter procedure 05/02/2024 3:20 PM EST Office Visit Family [place] [address] [place] [address] Tien Serrano MD [address] [place] [address] 2 month follow up Family [facility] [place] Comment on above: 2 month follow up Start: 04-13-2024 End: 04-13-2024 ambulatory 04/13/2024 9:45 AM EST OT/PT/Speech Visit [facility] [address] [place] [id number] Michelle Gomez, PT Priority: Routine [place] [facility] Physical Therapy Comment on above: Priority: Routine Start: 03-30-2024 End: 03-30-2024 ambulatory 03/30/2024 9:45 AM EDT OT/PT/Speech Visit [facility] [address] [place] [address] Michelle Gomez, PT Priority: Routine [facility] Comment on above: Priority: Routine Start: 03-23-2024 End: 03-23-2024 Patient encounter procedure [facility] [place] Comment on above: 6 week follow up PFT testing Start: 03-16-2024 End: 03-16-2024 ambulatory 03/16/2024 10:30 AM EDT OT/PT/Speech Visit [facility] [address] [place] [address] Michelle Gomez, PT Priority: Routine [facility] Comment on above: Priority: Routine Start: 03-14-2024 DIABETES SCREEN DIABETES SCREEN [facility] Start: 02-29-2024 End: 02-29-2024 ambulatory 02/29/2024 12:30 PM EDT OT/PT/Speech Visit [facility] [address] [place] [address] Kadeem'Michelle Berrios, PT Dx: Lightheaded [R42 (ICD-10-CM)]; Benign paroxysmal positional vertigo of right ear [H81.11 (ICD-10-CM)] [facility] Comment on above: Dx: Lightheaded [R42 (ICD-10-CM)]; Benig n paroxysmal positional vertigo of right ear [H81.11 (ICD-10-CM)] Start: 02-15-2024 End: 02-15-2024 Follow-up encounter 02/15/2024 9:30 AM EDT OT/PT/Speech Visit [facility] [address] [place] [address] O'Michelle Berrios, PT follow up [facility] Comment on above: follow up Start: 02-11-2024 End: 02-11-2024 ambulatory PULM LAB [facility] Comment on above: SOB (shortness of breath) [R06.02] Start: 02-10-2024 End: 02-10-2024 Patient encounter procedure 02/10/2024 11:20 AM EDT Office Visit Family [facility] [address] [place] [address] Tien Serrano MD [address] [place] [address] 6 week follow up Family [place] Comment on above: 6 week follow up Start: 02-07-2024 Influenza vaccination Influenza Vaccine (#1) [facility] Start: 02-02-2024 End: 02-02-2024 ambulatory 02/02/2024 9:45 AM EDT OT/PT/Speech Visit [facility] [address] [place] [address] Michelle Gomez, PT Lightheaded [R42]; Benign paroxysmal positional vertigo of right ear [H81.11] [facility] Comment on above: Lightheaded [R42]; Benign paroxysmal pos itional vertigo of right ear [H81.11] Start: 12-29-2023 End: 12-29-2023 Patient encounter procedure 12/29/2023 3:40 PM EDT Office Visit Family [place]ardo [place] [address] [place] [address] Tien Serrano MD [address] [place] [address] 6 week follow up Family [place]ardo [place] Comment on above: 6 week follow up Start: 12-26-2023 End: 12-26-2023 Patient encounter procedure 12/26/2023 10:20 AM EDT Office Visit Family [place] [address] [place] [address] Tien Serrano MD [address] [facility] [place] [id number] 6 week follow up Family [place] Comment on above: 6 week follow up Start: 12-08-2023 End: 12-08-2023 Patient encounter procedure 12/08/2023 9:15 AM EDT Office Visit [facility] [address] [place] [address] Tien Head, [address] [place] [address] [facility] Start: 11-25-2023 ANNUAL PCP TEAM CHRONIC DISEASE VISIT ANNUAL PCP TEAM CHRONIC DISEASE VISIT [facility] Start: 11-21-2023 SERUM CREATININE SERUM CREATININE [facility] Start: 11-12-2023 End: 02-11-2024 Basic metabolic 2000 panel - Serum or Plasma BASIC METABOLIC PANEL Lab Routine Renal insufficiency Expected: 11/12/2023, Expires: 02/11/2024 [facility] Work Phone: Comment on above: Expected: 11/12/2023, Expires: Start: 11-11-2023 End: 11-11-2023 Patient encounter procedure 11/11/2023 9:40 AM EDT Office Visit Family Medicine [place] [address] [place] [address] Tien Serrano MD [address] [place] [address] 6 month follow up Family Medicine [place] Comment on above: 6 month follow up Start: 11-09-2023 End: 11-09-2023 Patient encounter procedure 11/09/2023 10:00 AM EDT Office Visit [facility] [address] [place] [address] Tien Head, DO [address] [place] [address] [facility] Start: 11-01-2023 ANNUAL PCP TEAM CHRONIC DISEASE VISIT ANNUAL PCP TEAM CHRONIC DISEASE VISIT [facility] Start: 10-28-2023 SERUM CREATININE SERUM CREATININE [facility] Start: 07-28-2023 Covid-19 Vaccine ( season) Covid-19 Vaccine ( season) [facility] Start: 06-08-2023 Advance Directive Discussion Advance Directive Discussion [facility] Start: 06-08-2023 Behavioral Health Screening Behavioral Health Screening [facility] Start: 06-08-2023 Depression Assessment Depression Assessment [facility] Start: 04-29-2023 ANNUAL PCP TEAM CHRONIC DISEASE VISIT ANNUAL PCP TEAM CHRONIC DISEASE VISIT [facility] Start: 02-19-2023 End: 04-21-2023 Basic metabolic 2000 panel - Serum or Plasma BASIC METABOLIC PNL Lab Routine Stage 3a chronic kidney disease (HCC) Expected: 02/19/2023, Expires: 04/21/2023 [facility] Work Phone: Comment on above: Expected: 02/19/2023, Expires: Start: 02-06-2023 Influenza vaccination [facility] Start: 01-30-2023 ANNUAL PCP TEAM CHRONIC DISEASE VISIT ANNUAL PCP TEAM CHRONIC DISEASE VISIT [facility] Start: 01-30-2023 HEMOGLOBIN/HEMATOCRIT HEMOGLOBIN/HEMATOCRIT [facility] Start: 01-30-2023 SERUM CREATININE SERUM CREATININE [facility] Start: 11-08-2022 ANNUAL PCP TEAM CHRONIC DISEASE VISIT ANNUAL PCP TEAM CHRONIC DISEASE VISIT [facility] Start: 10-27-2022 End: 12-27-2022 Comprehensive metabolic 2000 panel - Serum or Plasma COMP METABOLIC PANEL Lab Routine Hyperlipidemia LDL goal <100 Expected: 10/27/2022, Expires: 12/27/2022 [facility] Work Phone: Comment on above: Expected: 10/27/2022, Expires: 3 Start: 10-27-2022 End: 12-27-2022 Hemoglobin A1c in Blood HGB A1C Lab Routine Hyperglycemia Expected: 10/27/2022, Expires: 12/27/2022 [facility] Work Phone: Comment on above: Expected: 10/27/2022, Expires: 3 Start: 10-27-2022 End: 12-27-2022 Lipid 1996 panel - Serum or Plasma LIPID PANEL BASIC Lab Routine Hyperlipidemia LDL goal <100 Expected: 10/27/2022, Expires: 12/27/2022 [facility] Work Phone: Comment on above: Expected: 10/27/2022, Expires: 3 Start: 10-15-2022 SERUM CREATININE SERUM CREATININE [facility] Start: 10-10-2022 ANNUAL PCP TEAM CHRONIC DISEASE VISIT ANNUAL PCP TEAM CHRONIC DISEASE VISIT [facility] Start: 10-10-2022 HEMOGLOBIN/HEMATOCRIT HEMOGLOBIN/HEMATOCRIT [facility] Start: 10-10-2022 SERUM CREATININE SERUM CREATININE [facility] Start: 08-12-2022 COVID-19 VACCINE (5 - Moderna series) COVID-19 VACCINE (5 - Moderna series) [facility] Start: 06-08-2022 ADVANCE DIRECTIVE DISCUSSION ADVANCE DIRECTIVE DISCUSSION [facility] Start: 06-08-2022 DEPRESSION ASSESSMENT DEPRESSION ASSESSMENT [facility] Start: 04-25-2022 BP CONTROLLED (<130/80) BP CONTROLLED (<130/80) [facility] Start: 03-14-2022 ANNUAL PCP TEAM CHRONIC DISEASE VISIT ANNUAL PCP TEAM CHRONIC DISEASE VISIT [facility] Start: 03-14-2022 HEMOGLOBIN/HEMATOCRIT HEMOGLOBIN/HEMATOCRIT [facility] Start: 03-14-2022 SERUM CREATININE SERUM CREATININE [facility] Start: 03-09-2022 Adult depression screening assessment DEPRESSION SCREENING [facility] Start: 02-06-2022 Influenza vaccination INFLUENZA (#1) [facility] Start: 02-03-2022 End: 04-05-2022 ALBUMIN/CREAT RATIO RND UR ALBUMIN/CREAT RATIO RND UR Lab Routine Abnormal casts in urine Urine protein increased Expected: 02/03/2022, Expires: 04/05/2022 [facility] Work Phone: Comment on above: Expected: 02/03/2022, Expires: 2 Start: 02-03-2022 End: 04-05-2022 Urinalysis complete panel - Urine URINALYSIS, WITH MICROSCOPIC Lab Routine Abnormal casts in urine Urine protein increased Expected: 02/03/2022, Expires: 04/05/2022 [facility] Work Phone: Comment on above: Expected: 02/03/2022, Expires: 2 Start: 01-30-2022 End: 04-01-2022 CBC W Auto Differential panel - Blood [facility] Work Phone: Comment on above: Expected: 01/30/2022, Expires: 2 Start: 01-30-2022 End: 04-01-2022 Comprehensive metabolic 2000 panel - Serum or Plasma [facility] Work Phone: Comment on above: Expected: 01/30/2022, Expires: 2 Start: 01-30-2022 End: 04-01-2022 Lipase [Enzymatic activity/volume] in Serum or Plasma [facility] Work Phone: Comment on above: Expected: 01/30/2022, Expires: 2 Start: 10-11-2021 End: 12-11-2021 Basic metabolic 2000 panel - Serum or Plasma BASIC METABOLIC PNL Lab Routine Congestive heart failure, unspecified HF chronicity, unspecified heart failure type (HCC) Expected: 10/11/2021, Expires: 12/11/2021 [facility] Work Phone: Comment on above: Expected: 10/11/2021, Expires: 2 Start: 08-07-2021 COVID-19 VACCINE (4 - Booster for Moderna series) COVID-19 VACCINE (4 - Booster for Moderna series) [facility] Start: 06-08-2021 ADVANCE DIRECTIVE DISCUSSION ADVANCE DIRECTIVE DISCUSSION [facility] Start: 06-08-2021 DEPRESSION ASSESSMENT DEPRESSION ASSESSMENT [facility] Start: 06-04-2021 COVID-19 VACCINE (4 - Booster for Moderna series) COVID-19 VACCINE (4 - Booster for Moderna series) [facility] Start: 03-26-2021 Tetanus vaccination TETANUS [facility] Start: 11-12-2020 End: 11-12-2020 Office Visit 11/12/2020 Office Visit Cardiovascular Medicine Tien Head, [address] [place] [address] [facility] Start: 08-02-2020 COVID-19 VACCINE (2 - Moderna 3-dose series) COVID-19 VACCINE (2 - Moderna 3-dose series) [facility] Start: 11-12-2019 End: 11-12-2019 Transthoracic echocardiography ECHOCARDIOGRAM Echocardiography Routine Moderate mitral regurgitation Expected: 11/12/2019, Expires: 11/12/2019 [facility] Comment on above: Expected: 11/12/2019, Expires: 0 Start: 11-10-2019 End: 11-10-2019 Office Visit 11/10/2019 Office Visit Cardiovascular Medicine Tien Head, DO [address] [place] [id number] [facility] Start: 02-24-2015 Screening for malignant neoplasm of colon COLORECTAL CANCER SCREENING DISCUSSION [facility] Start: 2001 RSV Vaccine (1 - 1-dose 60+ series) RSV Vaccine (1 - 1-dose 60+ series) [facility] Start: 12-26-1991 Colonoscopy [facility] Start: 12-26-1991 Zoster vaccine hzv live for subcutaneous use ZOSTER (SHINGLES) VACCINE (1 of 2) [facility] Start: 1986 Screening for malignant neoplasm of colon COLORECTAL CANCER SCREENING DISCUSSION [facility] Start: 1960 Third diphtheria, tetanus and acellular pertussis (DTaP) vaccination TDAP (ADULT) [facility] Start: 12-26-1959 BP CONTROLLED (<130/80) BP CONTROLLED (<130/80) [facility] in Echocardiography ECHOCARDIOGRAM Echocardiography Routine Atrial fibrillation, unspecified type Dyspnea on exertion 11/18/2024 11:20 AM EDT [facility] End: 12-07-2025 HOME SLEEP APNEA TEST (HSAT) HOME SLEEP APNEA TEST (HSAT) Procedures Routine MARY BETH (obstructive sleep apnea) 1 Occurrences starting 12/07/2024 until 12/07/[address] [facility] Comment on above: 1 Occurrences starting 12/07/2024 until 12/07/2025 End: 03-11-2025 LUNG VOLUMES LUNG VOLUMES PFT Routine SOB (shortness of breath) Lightheadedness 1 Occurrences starting 02/10/2024 until 03/11/[address] [facility] Comment on above: 1 Occurrences starting 02/10/2024 until 03/11/2025 Removal impacted cer umen irrigation/lvg unilat AMBULATORY EAR LAVAGE/IRRIGATION Procedures Routine Impacted cerumen of left ear Ordered: 11/11/2023 [facility] Work Phone: Comment on above: Ordered: 11/11/2023 End: 03-11-2025 SIX MINUTE WALK SIX MINUTE WALK PFT Routine SOB (shortness of breath) Lightheadedness 1 Occurrences starting 02/10/2024 until 03/11/[address] [facility] Comment on above: 1 Occurrences starting 02/10/2024 until 03/11/2025 SIX MINUTE WALK SIX MINUTE WALK PFT Routine SOB (shortness of breath) Lightheadedness 02/11/2024 1:12 PM EDT [facility] Work Phone: End: 03-11-2025 SPIROMETRY WITH DILATOR IF OBSTRUCTED SPIROMETRY WITH DILATOR IF OBSTRUCTED PFT Routine SOB (shortness of breath) Lightheadedness 1 Occurrences starting 02/10/2024 until 03/11/2025 [facility] Work Phone: Comment on above: 1 Occurrences starting 02/10/2024 until 03/11/2025 Urinalysis complete panel - Urine URINALYSIS, WITH MICROSCOPIC Lab Routine Abdominal pain, left lateral 01/30/2022 11:36 AM EDT [facility] Work Phone: End: 11-09-2025 XR Chest PA and Lateral XR CHEST 2V FRONTAL/LAT Radiology Routine SOB (shortness of breath) COPD with exacerbation (HCC) 1 Occurrences starting 10/10/2024 until 11/09/[address] [facility] Comment on above: 1 Occurrences starting 10/10/2024 until 11/09/2025 XR Chest PA and Lateral XR CHEST 2V FRONTAL/LAT Radiology Routine SOB (shortness of breath) COPD with exacerbation (HCC) 10/11/2024 11:07 AM EDT [facility] Work Phone: [facility] Immunizations Immunization Date Immunization Notes Care Provider Vicente beal 05-02-2024 influenza, high dose seasonal, preservative-free Tien Serrano MD Work Phone: [facility] 05-02-2024 influenza virus vacc ine, unspecified formulation Tien Serrano MD Work Phone: [facility] 03-05-2024 COVID-19 vaccine, ag e 12+ yr (PFIZER-BIONTECH COMIRNATY) Michelle Gomez PT [facility] 04-21-2023 pneumococcal (PCV20) vaccine, 20 valent (PREVNAR 20) Namita Gee [facility] 04-21-2023 respiratory syncytia l virus (RSV) vaccine, bivalent (ABRYSVO) Namita Gee [facility] 03-27-2023 COVID-19 vaccine, ag e 12+ yr, season (Garmentory-BIONTSummitIG) AMBER Ruiz PA-C Work Phone: [facility] 03-27-2023 influenza (HD-IIV4) vaccine, age 65+ yr, high dose, quadrivalent, PF (FLUZONE HIGH-DOSE) NA Ruiz PA-C Work Phone: [facility] 03-27-2023 influenza virus vacc ine, unspecified formulation Arabella Lopez [facility] 04-01-2022 influenza (HD-IIV4) vaccine, age 65+ yr, high dose, quadrivalent, PF (FLUZONE HIGH-DOSE) NA Ruiz PA-C Work Phone: [facility] 04-01-2022 influenza, high dose seasonal, preservative-free Bea Adan [facility] 04-01-2022 influenza virus vacc ine, unspecified formulation Tien Serrano MD Work Phone: [facility] 03-14-2021 influenza, high-dose , quadrivalent vaccine (FLUZONE HIGH DOSE QUADRIVALENT) Arabella Lopez [facility] 07-05-2020 COVID-19 vaccine, fu ll dose (MODERNA) Arabella Lopez [facility] 03-08-2020 influenza, high-dose , quadrivalent vaccine (FLUZONE HIGH DOSE QUADRIVALENT) Arabella Lopez [facility] 05-02-2019 influenza, injectabl e, quadrivalent, preservative free NA Ruiz PA-C Work Phone: [facility] 05-02-2019 tetanus toxoid, redu mary diphtheria toxoid, and acellular pertussis vaccine, adsorbed Arabella Begany [facility] 04-10-2019 zoster vaccine recombinant Arabella Begany [facility] 04-06-2019 influenza, high dose seasonal, preservative-free Arabella [facility] 04-06-2019 tetanus toxoid, redu mary diphtheria toxoid, and acellular pertussis vaccine, adsorbed NA Ruiz PA-C Work Phone: [facility] [facility] 02-20-2019 zoster vaccine recombinant Arabella Began [facility] 09-25-2018 zoster vaccine recombinant NA Ruiz PA-C Work Phone: [facility] 07-31-2018 zoster vaccine recombinant NA Ruiz PA-C Work Phone: [facility] 04-10-2018 influenza, high dose seasonal, preservative-free Arabella Begany [facility] 04-07-2017 influenza, high dose seasonal, preservative-free [facility] Work Phone: 03-29-2016 influenza, high dose seasonal, preservative-free [facility] 04-20-2015 influenza, high dose seasonal, preservative-free Arabella Begany [facility] 04-20-2015 pneumococcal conjuga te vaccine, [address] [facility] 04-12-2015 influenza, injectabl e, quadrivalent, contains preservative [facility] 04-12-2015 influenza, seasonal, injectable, preservative free Arabella Began [facility] 04-05-2014 influenza, high dose seasonal, preservative-free Arabella Begany [facility] 04-05-2014 influenza, seasonal, injectable [facility] 03-26-2011 influenza virus vacc ine, unspecified formulation Arabella y [facility] Work Phone: 03-26-2011 TD(adult) unspecifie d formulation Arabella y [facility] 03-26-2011 tetanus and diphther ia toxoids, adsorbed, preservative free, for adult use (2 Lf of tetanus toxoid and 2 Lf of diphtheria toxoid) [facility] Work Phone: 03-10-2011 zoster vaccine, live Arabella [facility] 04-13-2010 influenza virus vacc ine, unspecified formulation Arabella [facility] Work Phone: 04-19-2009 H1N1 Flu Vaccine Tien Head [facility] 04-19-2009 influenza, high dose seasonal, preservative-free Arabella [facility] 04-19-2009 novel influenza-H1N1 -09, all formulations Arabella daniel [facility] Work Phone: 04-19-2009 novel influenza-H1N1 -09, preservative-free, injectable Arabella [facility] 04-16-2009 influenza virus vacc ine, unspecified formulation Arabella [facility] 04-21-2008 influenza virus vacc ine, unspecified formulation Arabella [facility] Work Phone: 04-14-2007 influenza virus vacc ine, whole virus Tien Head [facility] Work Phone: 04-14-2007 pneumococcal polysaccharide vaccine, 23 valent Tien Head [facility] Work Phone: 05-29-2005 influenza virus vacc ine, whole virus Tien [facility] Payers Date Payer Category Payer Self-pay 2021 Medicare AETNA MEDICARE A ETNA MEDICARE PPO [id number] 2021-Present [phone] [address] [place] [address] PPO [id number] 2017 Medicare [id number] 2017 Medicare MEDICARE AETNA [place] P[place] MEDICARE AETNA PPO [id number] 2017-Present [id number] 2017 Medicare [id number] 2017 Medicare (Managed Care) [id number] 2017 Medicare [id number] 1940 Unknown [id number] 1941 Unknown [id number] 1941 Unknown [id number] 1941 Unknown [id number] 1941 Unknown [id number] 83 Unknown [id number] Social History Date Type Detail Facility Start: 11-10-2019 End: 11-14-2024 Tobacco smoking status NHIS Former smoker [facility] Start: 11-10-2019 End: 11-14-2024 Tobacco use and exposure Never used [facility] Start: 11-10-2019 End: 01-16-2025 Alcohol intake Current drinker of alcohol (finding) [facility] Start: 11-11-2017 End: 04-17-2022 Tobacco Comment quit 20 years ago [facility] Start: 11-11-2017 Alcohol Comment 7 - 8 drinks per week. wine/martini [facility] Start: 1940 Sex Assigned At Not on file [facility] Start: 09-30-2021 End: 04-29-2022 Exposure to SARS-CoV-2 (event) Not sure [facility] Start: [birth year]08-1959 End: 02-24-2011 History of tobacco use Current smoker [facility] Start: [birth year]08-1958 End: 02-24-2011 History of tobacco use Cigarette Smoker [facility] Start: 04-25-2021 End: 01-17-[address] [facility] Start: 03-02-2020 End: 10-25-2022 History SDOH Alcohol Std Drinks [address] [facility] Start: 03-25-2011 History SDOH Alcohol Comment one drink a day [facility] Start: 03-02-2020 End: 10-25-2022 History SDOH Social Connections Phone [address] [facility] Start: 03-02-2020 End: 10-25-2022 History SDOH Social Connections Get Together [address] [facility] Start: 03-02-2020 End: 10-25-2022 History SDOH Transport Med [address] [facility] Start: 03-02-2020 Education [address] [facility] Start: 1940 Sex Assigned At Male [facility] Start: 11-01-2021 History SDOH Social Connections Get Together [address] [facility] Start: 11-01-2021 History SDOH Physical Activity DPW [address] [facility] Start: 10-25-2022 History SDOH Physical Activity MPS [address] [facility] Start: 10-25-2022 End: 01-17-2025 Social connection and isolation panel [facility] Do you belong to any clubs or organizations such as yazidi groups, unions, fraternal or athletic groups, or school groups? Yes [facility] Are you now , , , , never or living with a partner? [facility] How often to you hav e a drink containing alcohol? 4 or more times a week [facility] How many standard dr inks containing alcohol do you have on a typical day? 1 or [address] [facility] How often do you hav e 6 or more drinks on 1 occasion? Never [facility] Start: 05-09-2012 How hard is it for you to pay for the very basics like food, housing, medical care, and heating Not hard at all [facility] Do you feel stress - tense, restless, nervous, or anxious, or unable to sleep at night because your mind is troubled all the time - these days [OSQ] Not at all [facility] (I/We) worried wheth er (my/our) food would run out before (I/we) got money to buy more. Never true [facility] In the past 12 month s, was there a time when you were not able to pay the mortgage or rent on time? No [facility] Start: 11-04-2017 Gender identity Identifies as male gender (finding) [facility] Start: 11-09-2019 Sexual orientation Heterosexual (finding) [facility] Start: 11-11-2017 Alcohol Comment 7 - 8 drinks per week. wine/martini [facility] Start: 11-04-2017 Sex Male (finding) [facility] Start: 08-24-2020 Alcohol Alcohol [facility] Start: 08-24-2020 Lives Lives [facility] Start: 08-14-2020 Tobacco Use Tobacco Use [facility] Functional Status Date Assessment Result Facility 01-21-2018 Are you deaf, or do you have serious difficulty hearing No 01/21/2018 9:58 AM HARPERT Geoffrey Garcia III, MD [facility] 01-21-2018 Are you blind, or do you have serious difficulty seeing, even when wearing glasses No 01/21/2018 9:58 AM Geoffrey Carmen III, MD [facility] 01-21-2018 Do you have serious difficulty walking or climbing stairs No 01/21/2018 9:58 AM Geoffrey Carmen III, MD [facility] 01-21-2018 Do you have difficul ty dressing or bathing No 01/21/2018 9:58 AM Geoffrey Carmen III, MD [facility] 01-21-2018 Because of a physica l, mental, or emotional condition, do you have difficulty doing errands alone such as visiting a physician's office or shopping No 01/21/2018 9:58 AM Geoffrey Carmen III, MD [facility] Mental Status Date Assessment Result Facility 01-21-2018 Because of a physica l, mental, or emotional condition, do you have serious difficulty concentrating, remembering, or making decisions No 01/21/2018 9:58 AM Geoffrey Carmen III, MD No [facility] Clinical Notes 01-21-2018 to 02-21-2025 Telephone Encounter - Tra Foss LPN - 02/21/2025 12:26 PM EDTTelephone Encounter - Tra Foss LPN - 02/21/2025 12:26 PM EDTTelephone Encounter - Namita Gee RP - 02/20/2025 4:26 PM EDT Note Date & Type Note Facility 02-21-2025 Telephone encounter Note Prescription Refill Information The patient has been identified by name and date of : Yes Caregiver verified no other encounters exist for this prescription request: Yes Caregiver confirmed with patient/requestor that no other refills are due, in the near future, with this provider at this time: Yes The last office visit in the department: 12/07/24 Does the patient have a future office visit with this provider/department: Yes, 04/22/25 Requested Prescriptions Pending Prescriptions Disp Refills atorvastatin (LIPITOR) 20 mg tablet 90 tablet 1 Sig: Take 1 tablet by mouth once daily. Tra Foss LPN February 21, 2025 12:[address] [facility] 02-21-2025 Miscellaneous Notes Prescription Refill Information The patient has been identified by name and date of : Yes Caregiver verified no other encounters exist for this prescription request: Yes Caregiver confirmed with patient/requestor that no other refills are due, in the near future, with this provider at this time: Yes The last office visit in the department: 12/07/24 Does the patient have a future office visit with this provider/department: Yes, 04/22/25 Requested Prescriptions Pending Prescriptions Disp Refills atorvastatin (LIPITOR) 20 mg tablet 90 tablet 1 Sig: Take 1 tablet by mouth once daily. Tra Foss LPN February 21, 2025 12:26 PM documented in this encounter [facility] 02-20-2025 Telephone encounter Note [facility] Ambulatory Pharmacy Anticoagulation Clinic Anticoagulation Episode Summary Anticoagulation Care Providers Provider Role Specialty Phone number Tien Serrano MD Referring Family Medicine [phone] Wilmer Morley is a 84 year old year old male patient being evaluated today for a Telemanagement visit. Patient is currently on the following anticoagulant(s) Warfarin. Labs PT INR (no units) Date Value 09/16/2021 2.9 09/02/2021 3.2 06/06/2021 2.5 biotel INR Home CoaguChek (no units) Date Value 02/20/2025 2.0 02/06/2025 2.0 01/23/2025 2.4 Hemoglobin (g/dL) Date Value 10/27/2024 13.4 03/14/2021 14.8 Hematocrit (%) Date Value 10/27/2024 40.2 03/14/2021 44.9 Platelet Count (k/uL) Date Value 10/27/2024 149 03/14/2021 191 Creatinine (mg/dL) Date Value 01/26/2025 1.45 12/15/2024 1.65 12/07/2024 1.85 03/14/2021 1.34 09/06/2020 1.27 08/06/2020 1.43 Bilirubin, Total (mg/dL) Date Value 10/27/2024 0.6 03/14/2021 1.1 ALT (U/L) Date Value 10/27/2024 20 03/14/2021 32 AST (U/L) Date Value 10/27/2024 19 03/14/2021 30 Estimated Creatinine Clearance: 44.4 mL/min (A) (based on SCr of 1.45 mg/dL (H)). ALLERGIES No Known Allergies 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: Anticoagulation Episode Summary Current INR goal: 2.0-3.0 Assessment: INR result of 2.0 is therapeutic Plan: Current Warfarin Dosing As of 02/20/2025 Full warfarin instructions: 7.5 mg every Mon; 5 mg all other days Sent HowGood message Advised patient to continue current weekly dose as noted above Next INR check due on 03/06/2025 Namita Gee RPh Clinical Pharmacist, Pharmacy Anticoagulation Clinic [facility] Pager: [phone]. [facility] 02-20-2025 Miscellaneous Notes [facility] Ambulatory Pharmacy Anticoagulation Clinic Anticoagulation Episode Summary Anticoagulation Care Providers Provider Role Specialty Phone number Tien Serrano MD Referring Family Medicine [phone] Wlimer Morley is a 84 year old year old male patient being evaluated today for a Telemanagement visit. Patient is currently on the following anticoagulant(s) Warfarin. Labs PT INR (no units) Date Value 09/16/2021 2.9 09/02/2021 3.2 06/06/2021 2.5 biotel INR Home CoaguChek (no units) Date Value 02/20/2025 2.0 02/06/2025 2.0 01/23/2025 2.4 Hemoglobin (g/dL) Date Value 10/27/2024 13.4 03/14/2021 14.8 Hematocrit (%) Date Value 10/27/2024 40.2 03/14/2021 44.9 Platelet Count (k/uL) Date Value 10/27/2024 149 03/14/2021 191 Creatinine (mg/dL) Date Value 01/26/2025 1.45 12/15/2024 1.65 12/07/2024 1.85 03/14/2021 1.34 09/06/2020 1.27 08/06/2020 1.43 Bilirubin, Total (mg/dL) Date Value 10/27/2024 0.6 03/14/2021 1.1 ALT (U/L) Date Value 10/27/2024 20 03/14/2021 32 AST (U/L) Date Value 10/27/2024 19 03/14/2021 30 Estimated Creatinine Clearance: 44.4 mL/min (A) (based on SCr of 1.45 mg/dL (H)). ALLERGIES No Known Allergies 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: Anticoagulation Episode Summary Current INR goal: 2.0-3.0 Assessment: INR result of 2.0 is therapeutic Plan: Current Warfarin Dosing As of 02/20/2025 Full warfarin instructions: 7.5 mg every Mon; 5 mg all other days Sent HowGood message Advised patient to continue current weekly dose as noted above Next INR check due on 03/06/2025 Namita Gee RPh Clinical Pharmacist, Pharmacy Anticoagulation Clinic Pharmacy An[facility] Pager: [phone]. documented in this encounter [facility] 02-07-2025 Telephone encounter Note [facility] Ambulatory Pharmacy Anticoagulation Clinic Anticoagulation Episode Summary Anticoagulation Care Providers Provider Role Specialty Phone number Tien Serrano MD Referring Family Medicine [phone] Wilmer Morley is a 84 year old year old male patient being evaluated today for a Telemanagement visit. Patient is currently on the following anticoagulant(s) Warfarin. Labs Lab Results Component Value Date INR 2.0 02/06/2025 INR 2.4 01/23/2025 INR 2.4 01/09/2025 Lab Results Component Value Date HB 13.4 10/27/2024 HB 13.9 11/03/2023 HB 13.9 01/30/2022 Lab Results Component Value Date HCT 40.2 10/27/2024 HCT 42.3 11/03/2023 HCT 43.0 01/30/2022 Lab Results Component Value Date PLT 149 (L) 10/27/2024 PLT 162 11/03/2023 PLT 170 01/30/2022 Lab Results Component Value Date CREAT 1.45 (H) 01/26/2025 CREAT 1.65 (H) 12/15/2024 CREAT 1.85 (H) 12/07/2024 No components found for: TBILI3 Lab Results Component Value Date ALT 20 10/27/2024 ALT 35 11/03/2023 ALT 13 10/27/2022 Lab Results Component Value Date AST 19 10/27/2024 AST 33 11/03/2023 AST 14 10/27/2022 Estimated Creatinine Clearance: 44.4 mL/min (A) (based on SCr of 1.45 mg/dL (H)). ALLERGIES No Known Allergies 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: Anticoagulation Episode Summary Current INR goal: 2.0-3.0 Assessment: INR result of 2.0 is therapeutic Plan: Current Warfarin Dosing As of 02/07/2025 Full warfarin instructions: 7.5 mg every Mon; 5 mg all other days Sent [employer] message Advised patient to continue current weekly dose as noted above Next home INR check scheduled on 02/21/2025 Patient advised to call the PAC with any medication changes, bleeding/bruising concerns, recent changes in vitamin k consumption, if any procedures are coming up, if they have been ill or in the hospital, and if they have missed any doses of warfarin. Arabella Lopez RPh Clinical Pharmacist, Pharmacy Anticoagulation Clinic Pharmacy Anticoagulation Clinic Pager: [phone]. [facility] 02-07-2025 Miscellaneous Notes [facility] Ambulatory Pharmacy Anticoagulation Clinic Anticoagulation Episode Summary Anticoagulation Care Providers Provider Role Specialty Phone number Tien Serrano MD Referring Family Medicine [phone] Wilmer Morley is a 84 year old year old male patient being evaluated today for a Telemanagement visit. Patient is currently on the following anticoagulant(s) Warfarin. Labs Lab Results Component Value Date INR 2.0 02/06/2025 INR 2.4 01/23/2025 INR 2.4 01/09/2025 Lab Results Component Value Date HB 13.4 10/27/2024 HB 13.9 11/03/2023 HB 13.9 01/30/2022 Lab Results Component Value Date HCT 40.2 10/27/2024 HCT 42.3 11/03/2023 HCT 43.0 01/30/2022 Lab Results Component Value Date PLT 149 (L) 10/27/2024 PLT 162 11/03/2023 PLT 170 01/30/2022 Lab Results Component Value Date CREAT 1.45 (H) 01/26/2025 CREAT 1.65 (H) 12/15/2024 CREAT 1.85 (H) 12/07/2024 No components found for: TBILI3 Lab Results Component Value Date ALT 20 10/27/2024 ALT 35 11/03/2023 ALT 13 10/27/2022 Lab Results Component Value Date AST 19 10/27/2024 AST 33 11/03/2023 AST 14 10/27/2022 Estimated Creatinine Clearance: 44.4 mL/min (A) (based on SCr of 1.45 mg/dL (H)). ALLERGIES No Known Allergies 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: Anticoagulation Episode Summary Current INR goal: 2.0-3.0 Assessment: INR result of 2.0 is therapeutic Plan: Current Warfarin Dosing As of 02/07/2025 Full warfarin instructions: 7.5 mg every Mon; 5 mg all other days Sent mychart message Advised patient to continue current weekly dose as noted above Next home INR check scheduled on 02/21/2025 Patient advised to call the PAC with any medication changes, bleeding/bruising concerns, recent changes in vitamin k consumption, if any procedures are coming up, if they have been ill or in the hospital, and if they have missed any doses of warfarin. Arabella Lopez RPh Clinical Pharmacist, Pharmacy Anticoagulation Clinic Pharmacy Anticoagulation Clinic Pager: [phone]. documented in this encounter [facility] 01-28-2025 Telephone encounter Note Closing encounter as patient has not called back in over a week since results were given [facility] 01-28-2025 Miscellaneous Notes Closing encounter as patient has not called back in over a week since results were given Patient was made aware of the results. Patient verbalizes understanding. He would like to think on this and call back Stephany Stein Ma Sleep study shows mild sleep apnea. We could consider cpap treatment or we can have him work on things like side sleeping and keeping weight tight if he does not want to. Let me know If he is willing to do cpap, we can set him up for autopap and a sleep apnea consult documented in this encounter [facility] 01-23-2025 Telephone encounter Note [facility] Ambulatory Pharmacy Anticoagulation Clinic Anticoagulation Episode Summary Anticoagulation Care Providers Provider Role Specialty Phone number Tien Serrano MD Referring Family Medicine [phone] Wilmer Morley is a 84 year old year old male patient being evaluated today for a Telemanagement visit. Patient is currently on the following anticoagulant(s) Warfarin. Labs PT INR (no units) Date Value 09/16/2021 2.9 09/02/2021 3.2 06/06/2021 2.5 biotel INR Home CoaguChek (no units) Date Value 01/23/2025 2.4 01/09/2025 2.4 12/21/2024 3.0 Hemoglobin (g/dL) Date Value 10/27/2024 13.4 03/14/2021 14.8 Hematocrit (%) Date Value 10/27/2024 40.2 03/14/2021 44.9 Platelet Count (k/uL) Date Value 10/27/2024 149 03/14/2021 191 Creatinine (mg/dL) Date Value 12/15/2024 1.65 12/07/2024 1.85 11/07/2024 1.31 03/14/2021 1.34 09/06/2020 1.27 08/06/2020 1.43 Bilirubin, Total (mg/dL) Date Value 10/27/2024 0.6 03/14/2021 1.1 ALT (U/L) Date Value 10/27/2024 20 03/14/2021 32 AST (U/L) Date Value 10/27/2024 19 03/14/2021 30 Estimated Creatinine Clearance: 39.1 mL/min (A) (based on SCr of 1.65 mg/dL (H)). ALLERGIES No Known Allergies 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: Anticoagulation Episode Summary Current INR goal: 2.0-3.0 Assessment: INR result of 2.4 is therapeutic Plan: Current Warfarin Dosing As of 01/23/2025 Full warfarin instructions: 7.5 mg every Mon; 5 mg all other days Sent HowGood message Advised patient to continue current weekly dose as noted above Next INR check due on 02/13/2025 Namita Gee RPh Clinical Pharmacist, Pharmacy Anticoagulation Clinic Pharmacy Anticoagulation Clinic Pager: [phone]. [facility] 01-23-2025 Miscellaneous Notes [facility] Ambulatory Pharmacy Anticoagulation Clinic Anticoagulation Episode Summary Anticoagulation Care Providers Provider Role Specialty Phone number Tien Serrano MD Referring Family Medicine [phone] Wilmer Morley is a 84 year old year old male patient being evaluated today for a Telemanagement visit. Patient is currently on the following anticoagulant(s) Warfarin. Labs PT INR (no units) Date Value 09/16/2021 2.9 09/02/2021 3.2 06/06/2021 2.5 biotel INR Home CoaguChek (no units) Date Value 01/23/2025 2.4 01/09/2025 2.4 12/21/2024 3.0 Hemoglobin (g/dL) Date Value 10/27/2024 13.4 03/14/2021 14.8 Hematocrit (%) Date Value 10/27/2024 40.2 03/14/2021 44.9 Platelet Count (k/uL) Date Value 10/27/2024 149 03/14/2021 191 Creatinine (mg/dL) Date Value 12/15/2024 1.65 12/07/2024 1.85 11/07/2024 1.31 03/14/2021 1.34 09/06/2020 1.27 08/06/2020 1.43 Bilirubin, Total (mg/dL) Date Value 10/27/2024 0.6 03/14/2021 1.1 ALT (U/L) Date Value 10/27/2024 20 03/14/2021 32 AST (U/L) Date Value 10/27/2024 19 03/14/2021 30 Estimated Creatinine Clearance: 39.1 mL/min (A) (based on SCr of 1.65 mg/dL (H)). ALLERGIES No Known Allergies 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: Anticoagulation Episode Summary Current INR goal: 2.0-3.0 Assessment: INR result of 2.4 is therapeutic Plan: Current Warfarin Dosing As of 01/23/2025 Full warfarin instructions: 7.5 mg every Mon; 5 mg all other days Sent HowGood message Advised patient to continue current weekly dose as noted above Next INR check due on 02/13/2025 Namita Gee [facility] Clinical Pharmacist, Pharmacy Anticoagulation Clinic Pharmacy Anticoagulation Clinic Pager: [phone]. documented in this encounter [facility] 01-19-2025 Telephone encounter Note Patient was made aware of the results. Patient verbalizes understanding. He would like to think on this and call back Stephany Stein Ma [facility] 01-19-2025 Telephone encounter Note Sleep study shows mild sleep apnea. We could consider cpap treatment or we can have him work on things like side sleeping and keeping weight tight if he does not want to. Let me know If he is willing to do cpap, we can set him up for autopap and a sleep apnea consult [facility] 01-17-2025 Note HNO ID: [id number] Author: MICHELLE GOMEZ, PT Service: ? Author Type: Physical Therapist Type: Progress Notes Filed: 01/17/2025 10:28 Note Text: Episode Visit Count: 1 Therapist That Will Accept/Oversee The Plan Of Care: Michelle Gomez Start of Care Date: 01/17/25 Onset Date: 01/18/20 Plan of Care Certification Date: 01/17/25 Next Certification Due Date: 01/17/25 Patient Identified by Name and Date of : Yes REHABILITATION AND SPORTS THERAPY PHYSICAL THERAPY EVALUATION PLAN OF CARE: Assessment: Wilmer Morley presents with diagnosis of vertigo that interferes with walking . The patient presents with impairments in slight imbalance with moderate exertion. PROMIS? (Patient-Reported Outcomes Measurement Information System) scores were reviewed and identified as within normal limits. Prognosis for therapy is Good due to: current objective clinical presentation . The patient will benefit from skilled therapy services to meet the goals established for this plan of care as noted below. Goals for Episode of Care: established 01/17/25 DC. Patient Goals: improve activity tolerance Time Frame for Goals and Treatment : 01/17/25 Planned Interventions, Frequency, and Duration: Current Frequency: Discontinue Therapy Services Duration: 1 visit Total Number of Visits Planned: 1 Planned Treatment Interventions: Therapeutic exercise (37555), Neuromuscular re-education (24358), Manual therapy (10902), Therapeutic activities (95791), Self-residential management (22129), Gait Training (39172) PLAN FOR NEXT VISIT: DC Patient demonstrates good understanding of plan of care and treatment. The above goals and plan of care were discussed and agreed upon by patient/family. SUBJECTIVE: for SOB with exertion, but this resolves with rest. Pt. uses the inhaler intermittently. Feels as though he has had too much to drink and this has been going on for about 5 years. Admits he did not do the HEP from previous PT episode. Pt. admits that therapy was not much help previously but attributes this to his own lack of consistency with HEP completion. Patient Goals: improve activity tolerance Functional Limitations: walking Prior Level of Function: Independent without limitations Relevant History Past Relevant Medical Conditions: COPD, Atrial Fibrillation Intake Information: Prescription present Falls Interview: No positive findings with falls interview Vestibular Symptoms present for: years Symptom onset: gradual Dizziness: No Imbalance: Yes Imbalance triggered by: Walking Fall Assessment: No falls Nausea: no Motion Sickness: None Headache: No Neck Symptoms: No Jaw Symptoms: No Ear Symptoms: No Hearing Changes: No recent changes Tinnitus: No recent changes Sleep Affected by Symptoms: Not affected by dizziness, not affected by pain History of Syncope: No History of Migraine: No Denies: neuropathy, paresthesia, visual changes, focal weakness, tremors, dizziness, neurological complaints Pain: PROMIS Scales 01/10/2025 02/29/2024 02/01/2024 Higher is Better Phys Func - T Score 33 (moderate dysfunction) 40 (mild dysfunction) Phys Func - Percentile 4 16 Self-Eff Symptom - T Score 49 (Average) 44 (Average) 50 (Average) Self-Eff Symptom - Percentile 46 27 50 T-Score and Percentile Interpretation T-scores: mean of general population = 50. 5 points is clinically meaningfully difference Percentiles provide an indication of how the patient's score ranks in relation to the general population. Higher percentile rankings indicate better function/quality of life. 50th percentile is the average of the general population and indicates half of respondents had a worse score. OBJECTIVE MEASURES WITH LEVEL OF FUNCTION: Gait Gait: Independent Gait Distance (feet): 1900 Gait Device: None Gait Deviations: General Deviations Gait Observation: some slight lateral lean to the L with SOB at ~3 minutes into test, resolved and SP02 returned from 86% to 93% Functional Performance Test Results 6 Minute Walk Test (ft): 1900 ft (579 meters) 6 Minute Walk Test Gait Speed (calculated): 1.61 m/s Vitals BP: 125/62 Pulse: 71 SpO2: 96 % Additional Vitals: Yes Intra Assessment 1: Heart Rate Intra 1, Resp Rate Intra 1, BP Intra 1, SpO2 Intra 1 Intra Heart Rate 1: 85 Intra BP 1: 114/69 Intra SpO2 1: 93 Education: Education Learning Preferences: Demonstration, Explanation, Performance, Printed Materials Barriers: None Learning/educational needs: Plan of Care Education Provided: Yes, see treatment interventions for education provided Education Provided To: Patient Education Mode/Type: Demonstration, Explanation/Discussion Response to Education/Teach Back: States/Identifies, Return Demonstration TREATMENT: PT Treatment Interventions: Self-Chcf Management Evaluation Self-Chcf Management: 1: advised activity modification and monitoring his vitals at (more content not included)... [facility] 01-17-2025 History of Present illness Narrative Images from the original note were not included. Episode Visit Count: 1 Therapist That Will Accept/Oversee The Plan Of Care: Michelle Gomez Start of Care Date: 01/17/25 Onset Date: 01/18/20 Plan of Care Certification Date: 01/17/25 Next Certification Due Date: 01/17/25 Patient Identified by Name and Date of : Yes REHABILITATION AND SPORTS THERAPY PHYSICAL THERAPY EVALUATION PLAN OF CARE: Assessment: Wilmer Morley presents with diagnosis of vertigo that interferes with walking . The patient presents with impairments in slight imbalance with moderate exertion. PROMIS (Patient-Reported Outcomes Measurement Information System) scores were reviewed and identified as within normal limits. Prognosis for therapy is Good due to: current objective clinical presentation . The patient will benefit from skilled therapy services to meet the goals established for this plan of care as noted below. Goals for Episode of Care: established 01/17/25 DC. Patient Goals: improve activity tolerance Time Frame for Goals and Treatment : 01/17/25 Planned Interventions, Frequency, and Duration: Current Frequency: Discontinue Therapy Services Duration: 1 visit Total Number of Visits Planned: 1 Planned Treatment Interventions: Therapeutic exercise (51841), Neuromuscular re-education (15330), Manual therapy (89032), Therapeutic activities (00988), Self-residential management (05809), Gait Training (34105) PLAN FOR NEXT VISIT: DC Patient demonstrates good understanding of plan of care and treatment. The above goals and plan of care were discussed and agreed upon by patient/family. SUBJECTIVE: for SOB with exertion, but this resolves with rest. Pt. uses the inhaler intermittently. Feels as though he has had too much to drink and this has been going on for about 5 years. Admits he did not do the HEP from previous PT episode. Pt. admits that therapy was not much help previously but attributes this to his own lack of consistency with HEP completion. Patient Goals: improve activity tolerance Functional Limitations: walking Prior Level of Function: Independent without limitations Relevant History Past Relevant Medical Conditions: COPD, Atrial Fibrillation Intake Information: Prescription present Falls Interview: No positive findings with falls interview Vestibular Symptoms present for: years Symptom onset: gradual Dizziness: No Imbalance: Yes Imbalance triggered by: Walking Fall Assessment: No falls Nausea: no Motion Sickness: None Headache: No Neck Symptoms: No Jaw Symptoms: No Ear Symptoms: No Hearing Changes: No recent changes Tinnitus: No recent changes Sleep Affected by Symptoms: Not affected by dizziness, not affected by pain History of Syncope: No History of Migraine: No Denies: neuropathy, paresthesia, visual changes, focal weakness, tremors, dizziness, neurological complaints Pain: PROMIS Scales 01/10/2025 02/29/2024 02/01/2024 Higher is Better Phys Func - T Score 33 (moderate dysfunction) 40 (mild dysfunction) Phys Func - Percentile 4 16 Self-Eff Symptom - T Score 49 (Average) 44 (Average) 50 (Average) Self-Eff Symptom - Percentile 46 27 50 T-Score and Percentile Interpretation T-scores: mean of general population = 50. 5 points is clinically meaningfully difference Percentiles provide an indication of how the patient's score ranks in relation to the general population. Higher percentile rankings indicate better function/quality of life. 50th percentile is the average of the general population and indicates half of respondents had a worse score. OBJECTIVE MEASURES WITH LEVEL OF FUNCTION: Gait Gait: Independent Gait Distance (feet): 1900 Gait Device: None Gait Deviations: General Deviations Gait Observation: some slight lateral lean to the L with SOB at ~3 minutes into test, resolved and SP02 returned from 86% to 93% Functional Performance Test Results 6 Minute Walk Test (ft): 1900 ft (579 meters) 6 Minute Walk Test Gait Speed (calculated): 1.61 m/s Vitals BP: 125/62 Pulse: 71 SpO2: 96 % Additional Vitals: Yes Intra Assessment 1: Heart Rate Intra 1, Resp Rate Intra 1, BP Intra 1, SpO2 Intra 1 Intra Heart Rate 1: 85 Intra BP 1: 114/69 Intra SpO2 1: 93 Education: Education Learning Preferences: Demonstration, Explanation, Performance, Printed Materials Barriers: None Learning/educational needs: Plan of Care Education Provided: Yes, see treatment interventions for education provided Education Provided To: Patient Education Mode/Type: Demonstration, Explanation/Discussion Response to Education/Teach Back: States/Identifies, Return Demonstration TREATMENT: PT Treatment Interventions: Self-Chcf Management Evaluation Self-Chcf Management: 1: advised activity modification and monitoring his vitals at home when he feels symptoms 2: discussed age related values with regards to 6 MWT 3: encouraged continued activity as tolerated, frequent rest is ok, avoid gradual decline in activity tolerance Skilled Intervention: Skilled judgment in the selection of proper modification for activity of daily living/home management based on clinical presentation, deficits, and needs. Reviewed patient specific diagnosis in relation to activities of daily living/home management. Activity progression based on professional judgement. Billing * Evaluation Moderate Complexity: 1 Unit Self-Care/Home Management Treatment Minutes: 13 Skilled Treatment Time Minutes (timed and untimed codes): 43 Total Session Time (minutes): 43 Session Start Time : 943 Session Stop Time : 1026 Michelle Goemz PT documented in this encounter [facility] 01-16-2025 Note HNO ID: [id number] Author: BLAYNE DAVIS APRN.[employer]OR HANGER Service: ? Author Type: Nurse Practitioner Type: Progress Notes Filed: 01/16/2025 14:42 Note Text: Patient triaged at [facility]. Here today with suture removal, surgical procedure removing skin cancer. I advised patient to have sutures removed via web designer developer. Appears to be a complex surgical removal. [facility] 01-16-2025 History of Present illness Narrative Patient triaged at [facility]. Here today with suture removal, surgical procedure removing skin cancer. I advised patient to have sutures removed via web designer developer. Appears to be a complex surgical removal. documented in this encounter [facility] 01-13-2025 Note HNO ID: [id number] Author: ?, ?, ? Service: ? Author Type: ? Type: Progress Notes Filed: 01/13/2025 16:38 Note Text: Date: January 13, 2025 Name: Wilmer Morley Comments HSAT have been returned in working order with QANDA completed online. Possible belt failure, unsure. Passing study through for readers to determine result status. Maureen Gilman [facility] 01-09-2025 Note HNO ID: [id number] Author: ?, ?, ? Service: ? Author Type: ? Type: Progress Notes Filed: 01/13/2025 16:38 Note Text: [facility] # [id number] , date shipped out 01-10-25 Fed ex only Tracking mailout: [id number] Tracking return: [id number] [facility] 01-09-2025 Telephone encounter Note [facility] Ambulatory Pharmacy Anticoagulation Clinic Anticoagulation Episode Summary Anticoagulation Care Providers Provider Role Specialty Phone number Tien Serrano MD Referring Family Medicine [phone] Wilmer Morley is a 84 year old year old male patient being evaluated today for a Telemanagement visit. Patient is currently on the following anticoagulant(s) Warfarin. Labs PT INR (no units) Date Value 09/16/2021 2.9 09/02/2021 3.2 06/06/2021 2.5 biotel INR Home CoaguChek (no units) Date Value 01/09/2025 2.4 12/21/2024 3.0 12/07/2024 3.5 Hemoglobin (g/dL) Date Value 10/27/2024 13.4 03/14/2021 14.8 Hematocrit (%) Date Value 10/27/2024 40.2 03/14/2021 44.9 Platelet Count (k/uL) Date Value 10/27/2024 149 03/14/2021 191 Creatinine (mg/dL) Date Value 12/15/2024 1.65 12/07/2024 1.85 11/07/2024 1.31 03/14/2021 1.34 09/06/2020 1.27 08/06/2020 1.43 Bilirubin, Total (mg/dL) Date Value 10/27/2024 0.6 03/14/2021 1.1 ALT (U/L) Date Value 10/27/2024 20 03/14/2021 32 AST (U/L) Date Value 10/27/2024 19 03/14/2021 30 Estimated Creatinine Clearance: 39.1 mL/min (A) (based on SCr of 1.65 mg/dL (H)). ALLERGIES No Known Allergies 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: Anticoagulation Episode Summary Current INR goal: 2.0-3.0 Assessment: INR result of 2.4 is therapeutic Plan: Current Warfarin Dosing As of 01/09/2025 Full warfarin instructions: 7.5 mg every Mon; 5 mg all other days Sent HowGood message Advised patient to continue current weekly dose as noted above Next INR check due on 01/23/2025 Namita Gee RPh Clinical Pharmacist, Pharmacy Anticoagulation Clinic Pharmacy Anticoagulation Clinic Pager: [phone]. [facility] 01-09-2025 Miscellaneous Notes [facility] Ambulatory Pharmacy Anticoagulation Clinic Anticoagulation Episode Summary Anticoagulation Care Providers Provider Role Specialty Phone number Tien Serrano MD Referring Family Medicine [phone] Wilmer Morley is a 84 year old year old male patient being evaluated today for a Telemanagement visit. Patient is currently on the following anticoagulant(s) Warfarin. Labs PT INR (no units) Date Value 09/16/2021 2.9 09/02/2021 3.2 06/06/2021 2.5 biotel INR Home CoaguChek (no units) Date Value 01/09/2025 2.4 12/21/2024 3.0 12/07/2024 3.5 Hemoglobin (g/dL) Date Value 10/27/2024 13.4 03/14/2021 14.8 Hematocrit (%) Date Value 10/27/2024 40.2 03/14/2021 44.9 Platelet Count (k/uL) Date Value 10/27/2024 149 03/14/2021 191 Creatinine (mg/dL) Date Value 12/15/2024 1.65 12/07/2024 1.85 11/07/2024 1.31 03/14/2021 1.34 09/06/2020 1.27 08/06/2020 1.43 Bilirubin, Total (mg/dL) Date Value 10/27/2024 0.6 03/14/2021 1.1 ALT (U/L) Date Value 10/27/2024 20 03/14/2021 32 AST (U/L) Date Value 10/27/2024 19 03/14/2021 30 Estimated Creatinine Clearance: 39.1 mL/min (A) (based on SCr of 1.65 mg/dL (H)). ALLERGIES No Known Allergies 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: Anticoagulation Episode Summary Current INR goal: 2.0-3.0 Assessment: INR result of 2.4 is therapeutic Plan: Current Warfarin Dosing As of 01/09/2025 Full warfarin instructions: 7.5 mg every Mon; 5 mg all other days Sent HowGood message Advised patient to continue current weekly dose as noted above Next INR check due on 01/23/2025 Namita Gee RPh Clinical Pharmacist, Pharmacy Anticoagulation Clinic Pharmacy Anticoagulation Clinic Pager: [phone]. documented in this encounter [facility] 01-02-2025 Telephone encounter Note The following approved medication requests have been transmitted electronically. Requested Prescriptions Pending Prescriptions Disp Refills doxazosin (CARDURA) 1 mg tablet 90 tablet 3 Sig: Take 1 tablet by mouth daily at bedtime. Alejandrina Quigley APRN.CNP [facility] 01-02-2025 Miscellaneous Notes The following approved medication requests have been transmitted electronically. Requested Prescriptions Pending Prescriptions Disp Refills doxazosin (CARDURA) 1 mg tablet 90 tablet 3 Sig: Take 1 tablet by mouth daily at bedtime. Alejandrina Quigley APRN.CNP Prescription Refill Information The patient has been identified by name and date of : Yes Caregiver verified no other encounters exist for this prescription request: Yes Caregiver confirmed with patient/requestor that no other refills are due, in the near future, with this provider at this time: Yes The last office visit in the department: 12/07/24 Does the patient have a future office visit with this provider/department: Yes Requested Prescriptions Pending Prescriptions Disp Refills doxazosin (CARDURA) 1 mg tablet 90 tablet 3 Sig: Take 1 tablet by mouth daily at bedtime. Cortney Laughlin LPN January 02, 2025 11:23 AM documented in this encounter [facility] 01-02-2025 Telephone encounter Note Prescription Refill Information The patient has been identified by name and date of : Yes Caregiver verified no other encounters exist for this prescription request: Yes Caregiver confirmed with patient/requestor that no other refills are due, in the near future, with this provider at this time: Yes The last office visit in the department: 12/07/24 Does the patient have a future office visit with this provider/department: Yes Requested Prescriptions Pending Prescriptions Disp Refills doxazosin (CARDURA) 1 mg tablet 90 tablet 3 Sig: Take 1 tablet by mouth daily at bedtime. oCrtney Laughlin LPN January 02, 2025 11:[address] [facility] 12-22-2024 Telephone encounter Note [facility] Ambulatory Pharmacy Anticoagulation Clinic Anticoagulation Episode Summary Anticoagulation Care Providers Provider Role Specialty Phone number Tien Serrano MD Referring Family Medicine [phone] Wilmer Morley is a 83 year old year old male patient being evaluated today for a Telemanagement visit. Patient is currently on the following anticoagulant(s) Warfarin. Labs Lab Results Component Value Date INR 3.0 12/21/2024 INR 3.5 (A) 12/07/2024 INR 2.0 11/21/2024 Lab Results Component Value Date HB 13.4 10/27/2024 HB 13.9 11/03/2023 HB 13.9 01/30/2022 Lab Results Component Value Date HCT 40.2 10/27/2024 HCT 42.3 11/03/2023 HCT 43.0 01/30/2022 Lab Results Component Value Date PLT 149 (L) 10/27/2024 PLT 162 11/03/2023 PLT 170 01/30/2022 Lab Results Component Value Date CREAT 1.65 (H) 12/15/2024 CREAT 1.85 (H) 12/07/2024 CREAT 1.31 (H) 11/07/2024 No components found for: TBILI3 Lab Results Component Value Date ALT 20 10/27/2024 ALT 35 11/03/2023 ALT 13 10/27/2022 Lab Results Component Value Date AST 19 10/27/2024 AST 33 11/03/2023 AST 14 10/27/2022 Estimated Creatinine Clearance: 39.7 mL/min (A) (based on SCr of 1.65 mg/dL (H)). ALLERGIES No Known Allergies 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: USP (current) use of anticoagulants History of dvt (deep vein thrombosis) Anticoagulation Episode Summary Current INR goal: 2.0-3.0 Assessment: INR result of 3.0 is therapeutic Plan: Current Warfarin Dosing As of 12/22/2024 Full warfarin instructions: 7.5 mg every Mon; 5 mg all other days Sent HowGood message Advised patient to continue current weekly dose as noted above Next home INR check scheduled on 01/04/2025 Patient advised to call the PAC with any medication changes, bleeding/bruising concerns, recent changes in vitamin k consumption, if any procedures are coming up, if they have been ill or in the hospital, and if they have missed any doses of warfarin. Jinny Shah [facility] Clinical Pharmacist, Pharmacy Anticoagulation Clinic Pharmacy Anticoagulation Clinic Pager: [phone]. [facility] 12-22-2024 Miscellaneous Notes [facility] Ambulatory Pharmacy Anticoagulation Clinic Anticoagulation Episode Summary Anticoagulation Care Providers Provider Role Specialty Phone number Tien Serrano MD Referring Family Medicine [phone] Wilmer Morley is a 83 year old year old male patient being evaluated today for a Telemanagement visit. Patient is currently on the following anticoagulant(s) Warfarin. Labs Lab Results Component Value Date INR 3.0 12/21/2024 INR 3.5 (A) 12/07/2024 INR 2.0 11/21/2024 Lab Results Component Value Date HB 13.4 10/27/2024 HB 13.9 11/03/2023 HB 13.9 01/30/2022 Lab Results Component Value Date HCT 40.2 10/27/2024 HCT 42.3 11/03/2023 HCT 43.0 01/30/2022 Lab Results Component Value Date PLT 149 (L) 10/27/2024 PLT 162 11/03/2023 PLT 170 01/30/2022 Lab Results Component Value Date CREAT 1.65 (H) 12/15/2024 CREAT 1.85 (H) 12/07/2024 CREAT 1.31 (H) 11/07/2024 No components found for: TBILI3 Lab Results Component Value Date ALT 20 10/27/2024 ALT 35 11/03/2023 ALT 13 10/27/2022 Lab Results Component Value Date AST 19 10/27/2024 AST 33 11/03/2023 AST 14 10/27/2022 Estimated Creatinine Clearance: 39.7 mL/min (A) (based on SCr of 1.65 mg/dL (H)). ALLERGIES No Known Allergies 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: long term (current) use of anticoagulants History of dvt (deep vein thrombosis) Anticoagulation Episode Summary Current INR goal: 2.0-3.0 Assessment: INR result of 3.0 is therapeutic Plan: Current Warfarin Dosing As of 12/22/2024 Full warfarin instructions: 7.5 mg every Mon; 5 mg all other days Sent mychart message Advised patient to continue current weekly dose as noted above Next home INR check scheduled on 01/04/2025 Patient advised to call the PAC with any medication changes, bleeding/bruising concerns, recent changes in vitamin k consumption, if any procedures are coming up, if they have been ill or in the hospital, and if they have missed any doses of warfarin. Jinny Shah [facility] Clinical Pharmacist, Pharmacy Anticoagulation Clinic Pharmacy Anticoagulation Clinic Pager: [phone]. documented in this encounter [facility] 12-20-2024 Note HNO ID: [id number] Author: MELQUIADES DEL VALLE APRN.[employer]OR HANGER Service: ? Author Type: Nurse Practitioner Type: Progress Notes Filed: 01/13/2025 16:38 Note Text: December 20, 2024 Standing PSG Orders signed in the last 90 days None Future PSG Orders signed in the last 90 days Ordered Auth. provider HOME SLEEP APNEA TEST (HSAT) [[id number]] 12/07/24 Tien Serrano MD Assoc. diagnoses: MARY BETH (obstructive sleep apnea) [G47.33] Q: Indications: A: Obstructive sleep apnea Q: STOP-BANG conditions - Select All That Apply: A: GENDER = male A2: AGE > 50 A3: high blood PRESSURE A4: SNORING that is loud or disruptive A5: TIREDNESS, fatigue or sleepiness during the day A6: OBSERVED sleep apnea Q: Current use of supplemental oxygen during sleep period?: A: No All Prior Sleep Studies (past 365 days) 12/07/2024 09:29 Sleep Studies HOME SLEEP APNEA TEST (HSAT) HOME SLEEP APNEA TEST (HSAT) Order Status: Ordered, Future Expires: 12/07/25 BMI Readings from Last 2 Encounters: 12/07/24 : 29.70 kg/m? 11/14/24 : 29.18 kg/m? 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 Benign neoplasm of colon CKD (chronic kidney disease), stage III (HCC) 04/08/2018 COPD (chronic obstructive pulmonary disease) (HCC) Diverticulosis of colon (without mention of hemorrhage) DVT (deep venous thrombosis) (HCC) Essential hypertension, benign 02/27/2010 Facial basal cell cancer 2010 Internal hemorrhoids without mention of complication Other and unspecified hyperlipidemia hypertriglyeridemia Personal history of colonic polyps The medical record was reviewed to determine if the proposed sleep study conforms to the AASM Practice Parameters for the Indications for Polysomnography and Related Procedures, or if the sleep study is indicated for other reasons. Indications for study: MARY BETH suspected without comorbid medical or sleep disorders Sleep study to be performed: Home Sleep Apnea Test (HSAT) Special instructions: None-follow laboratory protocol Estela Cespedes Sleep [facility] Staff Note: I have read the above protocol, edited as needed, and agree to the plan. Melquiades Del Valle APRN.[employer] DOOR HANGER 2:57 PM, 12/20/2024 [facility] 12-20-2024 Note HNO ID: [id number] Author: ?, ?, ? Service: ? Author Type: ? Type: Progress Notes Filed: 01/13/2025 16:38 Note Text: December 20, 2024 An order has been received for Home Sleep Apnea Test (HSAT) from Tien Sweeney a B. [facility] Staff. Visit prep complete. Comments :No The sleep study is scheduled for 01/11. Insurance: Payor: [employer] MEDICARE / Plan: [employer] MEDICARE PPO / Product Type: PPO / Payer/Plan Subscr Sex Relation Sub. Ins. ID Effective Group Num 1. [employer] MEDICAR* MILLIWILMER Dian 1940 Male Self [id number] [birth year] [id number] [facility]ista [address] [facility] 12-07-2024 Telephone encounter Note [facility] Ambulatory Pharmacy Anticoagulation Clinic Anticoagulation Episode Summary Anticoagulation Care Providers Provider Role Specialty Phone number Tien Serrano MD Referring Family Medicine [phone] Wilmer Dian Morley is a 83 year old year old male patient being evaluated today for a Telemanagement visit. Patient is currently on the following anticoagulant(s) Warfarin. Labs Lab Results Component Value Date INR 3.5 (A) 12/07/2024 INR 2.0 11/21/2024 INR 2.9 11/05/2024 Lab Results Component Value Date HB 13.4 10/27/2024 HB 13.9 11/03/2023 HB 13.9 01/30/2022 Lab Results Component Value Date HCT 40.2 10/27/2024 HCT 42.3 11/03/2023 HCT 43.0 01/30/2022 Lab Results Component Value Date PLT 149 (L) 10/27/2024 PLT 162 11/03/2023 PLT 170 01/30/2022 Lab Results Component Value Date CREAT 1.31 (H) 11/07/2024 CREAT 1.55 (H) 11/01/2024 CREAT 1.43 (H) 10/27/2024 No components found for: [id number] Lab Results Component Value Date ALT 20 10/27/2024 ALT 35 11/03/2023 ALT 13 10/27/2022 Lab Results Component Value Date AST 19 10/27/2024 AST 33 11/03/2023 AST 14 10/27/2022 Estimated Creatinine Clearance: 50.1 mL/min (A) (based on SCr of 1.31 mg/dL (H)). ALLERGIES No Known Allergies 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: USP (current) use of anticoagulants Atrial fibrillation, unspecified type (hcc) History of dvt (deep vein thrombosis) Anticoagulation Episode Summary Current INR goal: 2.0-3.0 Assessment: INR result of 3.5 is SUPRAtherapeutic due to: unsure - possibly edema. He was having some edema and started atenolol and lasix. He d/c amlodipine. He hasn't had as much vit K lately but will start having his normal amount. Plan: Current Warfarin Dosing As of 12/07/2024 Full warfarin instructions: 7.5 mg every Mon; 5 mg all other days Called and spoke to patient/caregiver Advised patient to decrease dose for 1 day only then resume weekly regimen Next point of care INR check scheduled on 12/14/2024 Patient verbalizes understanding of the plan. Patient denies need for refills. Patient advised to call the PAC with any medication changes, bleeding/bruising concerns, recent changes in vitamin k consumption, if any procedures are coming up, if they have been ill or in the hospital, and if they have missed any doses of warfarin. Ghazal Bailey RPh Clinical Pharmacist, Pharmacy Anticoagulation Clinic Pharmacy Anticoagulation Clinic Pager: [phone]. [facility] 12-07-2024 Miscellaneous Notes [facility] Ambulatory Pharmacy Anticoagulation Clinic Anticoagulation Episode Summary Anticoagulation Care Providers Provider Role Specialty Phone number Tien Serrano MD Referring Family Medicine [phone] Wilmer Morley is a 83 year old year old male patient being evaluated today for a Telemanagement visit. Patient is currently on the following anticoagulant(s) Warfarin. Labs Lab Results Component Value Date INR 3.5 (A) 12/07/2024 INR 2.0 11/21/2024 INR 2.9 11/05/2024 Lab Results Component Value Date HB 13.4 10/27/2024 HB 13.9 11/03/2023 HB 13.9 01/30/2022 Lab Results Component Value Date HCT 40.2 10/27/2024 HCT 42.3 11/03/2023 HCT 43.0 01/30/2022 Lab Results Component Value Date PLT 149 (L) 10/27/2024 PLT 162 11/03/2023 PLT 170 01/30/2022 Lab Results Component Value Date CREAT 1.31 (H) 11/07/2024 CREAT 1.55 (H) 11/01/2024 CREAT 1.43 (H) 10/27/2024 No components found for: [id number] Lab Results Component Value Date ALT 20 10/27/2024 ALT 35 11/03/2023 ALT 13 10/27/2022 Lab Results Component Value Date AST 19 10/27/2024 AST 33 11/03/2023 AST 14 10/27/2022 Estimated Creatinine Clearance: 50.1 mL/min (A) (based on SCr of 1.31 mg/dL (H)). ALLERGIES No Known Allergies 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: long term (current) use of anticoagulants Atrial fibrillation, unspecified type (hcc) History of dvt (deep vein thrombosis) Anticoagulation Episode Summary Current INR goal: 2.0-3.0 Assessment: INR result of 3.5 is SUPRAtherapeutic due to: unsure - possibly edema. He was having some edema and started atenolol and lasix. He d/c amlodipine. He hasn't had as much vit K lately but will start having his normal amount. Plan: Current Warfarin Dosing As of 12/07/2024 Full warfarin instructions: 7.5 mg every Mon; 5 mg all other days Called and spoke to patient/caregiver Advised patient to decrease dose for 1 day only then resume weekly regimen Next point of care INR check scheduled on 12/14/2024 Patient verbalizes understanding of the plan. Patient denies need for refills. Patient advised to call the PAC with any medication changes, bleeding/bruising concerns, recent changes in vitamin k consumption, if any procedures are coming up, if they have been ill or in the hospital, and if they have missed any doses of warfarin. Ghazal Bailey RPh Clinical Pharmacist, Pharmacy Anticoagulation Clinic Pharmacy Anticoagulation Clinic Pager: [phone]. documented in this encounter [facility] 12-07-2024 Note HNO ID: [id number] Author: TIEN SERRANO MD Service: ? Author Type: Physician Type: Progress Notes Filed: 12/07/2024 12:29 Note Text: Wilmer Morley is an 83-year-old male with a history of AFib, presenting for follow-up on dyspnea and lightheadedness. HPI Dyspnea: - Improvement in dyspnea since last visit. - Nocturnal wheezing resolved after medication adjustments by Dr. Griffin. - Denies current wheezing or lower extremity edema. Lightheadedness: - Chronic lightheadedness described as feeling teetery and like I'm going to pass out, x years. Dates back in chart nearly two decades. - Symptoms have increased in frequency and severity, limiting outdoor activities. - Aggravated by head movements, particularly up and down. - Denies actual syncope. - Previous evaluations by ENT and cardiology; underwent vestibular therapy with some improvement. - Recent echocardiogram by Dr. Frank showed no significant changes over the past three years. - Recent medication adjustments include discontinuation of Norvasc and initiation of atenolol, with no improvement in lightheadedness. - Blood pressure readings under 120/50-60 mmHg; heart rate in the 40s. - Denies current alcohol consumption; stopped drinking a month ago. Atrial Fibrillation: - History of AFib; recent discussion with Dr. Frank about potential ablation. - Dr. Frank noted AFib was okay and left ventricular function was okay. - Recent heart rate was 80 bpm, leading to medication adjustments. - Wilmer reports feeling tired and lacking energy. - Denies bleeding or bruising issues. - Denies increased thirst or polyuria. - Denies hearing problems. Chronic Kidney Disease: - Stage 3 CKD. - Recent initiation of Lasix 40 mg daily, x1 week. - No recent blood work to monitor kidney function or electrolytes since starting Lasix. MEDICATIONS: Current Outpatient Medications Medication Sig atenolol (TENORMIN) 25 mg tablet Take 25 mg by mouth once daily. flecainide (TAMBOCOR) 100 mg tablet Take 100 mg by mouth two times a day. sertraline (ZOLOFT) 100 mg tablet Take 1 tablet by mouth once daily. furosemide (LASIX) 40 mg tablet Take 40 mg by mouth once daily. umeclidinium-vilanterol (ANORO ELLIPTA) 62.5-25 mcg/actuation inhaler Inhale 1 Inhalation as instructed once daily. warfarin (COUMADIN) 5 mg tablet 7.5 mg every Mon, Fri; 5 mg all other days lisinopril (ZESTRIL) 10 mg tablet Take 1 tablet by mouth once daily. atorvastatin (LIPITOR) 20 mg tablet Take 1 tablet by mouth once daily. doxazosin (CARDURA) 1 mg tablet Take 1 tablet by mouth daily at bedtime. flecainide (TAMBOCOR) 100 mg tablet Take 1 tablet by mouth two times a day. (Patient taking differently: Take 100 mg by mouth once daily. Patient on Taper dose. Last dose is 11/16/24) albuterol HFA (VENTOLIN HFA) 90 mcg/actuation inhaler Inhale 2 Puffs as instructed every 4 hours as needed for wheezing/shortness of breath. loperamide HCl (IMODIUM) 2 mg tab Take 1 tablet by mouth as needed. amLODIPine (NORVASC) 5 mg tablet Take 5 mg by mouth once daily. (Patient not taking: Reported on 12/07/2024) No current facility-administered medications for this visit. 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 Benign neoplasm of colon CKD (chronic kidney disease), stage III (HCC) 04/08/2018 COPD (chronic obstructive pulmonary disease) (HCC) Diverticulosis of colon (without mention of hemorrhage) DVT (deep venous thrombosis) (HCC) Essential hypertension, benign 02/27/2010 Facial basal cell cancer 2009 Internal hemorrhoids without mention of complication Other and unspecified hyperlipidemia hypertriglyeridemia Personal history of colonic polyps PAST SURGICAL HISTORY Procedure Laterality Date CATARACT EXTRACTION HX Left CATARACT SURGERY, COMPLEX 2009 R eye COLONOSCOPY FLX DX W/COLLJ SPEC WHEN PFRMD 08/05/2000 Colonoscopy COLONOSCOPY FLX DX W/COLLJ SPEC WHEN PFRMD 11/02/2002 Colonoscopy COLONOSCOPY FLX DX W/COLLJ SPEC WHEN PFRMD 01/29/2009 COLONOSCOPY FLX DX W/COLLJ SPEC WHEN PFRMD 02/24/2014 Colonoscopy COLONOSCOPY FLX DX W/COLLJ SPEC WHEN PFRMD [facility]/09/[facility] ESOPHAGOGASTRODUODENOSCOPY TRANSORAL DIAGNOSTIC N/A 08/16/[facility] H[facility] OF 2010 basal cell to right above upper lip FAMILY HISTORY Problem Relation Age of Onset Heart Father CHF Heart Mother CHF Heart Brother [place] - rheumatic fever Cancer Brother gastric Asthma Sister Social History Tobacco Use Smoking status: Former Average packs/day: 0.5 packs/day for 50.0 years (25.0 ttl pk-yrs) Types: Cigarettes Start date: 1958 Smokeless tobacco: Never Vaping Use Vaping status: Never Used Substance Use Topics Alcohol use: Yes Alcohol/week: 2.3 standard drinks of alcohol Types: 1 Glasses (more content not included)... [facility] 12-07-2024 History of Present illness Narrative Wilmer Morley is an 83-year-old male with a history of AFib, presenting for follow-up on dyspnea and lightheadedness. HPI Dyspnea: - Improvement in dyspnea since last visit. - Nocturnal wheezing resolved after medication adjustments by Dr. Griffin. - Denies current wheezing or lower extremity edema. Lightheadedness: - Chronic lightheadedness described as feeling teetery and like I'm going to pass out, x years. Dates back in chart nearly two decades. - Symptoms have increased in frequency and severity, limiting outdoor activities. - Aggravated by head movements, particularly up and down. - Denies actual syncope. - Previous evaluations by ENT and cardiology; underwent vestibular therapy with some improvement. - Recent echocardiogram by Dr. Frank showed no significant changes over the past three years. - Recent medication adjustments include discontinuation of Norvasc and initiation of atenolol, with no improvement in lightheadedness. - Blood pressure readings under 120/50-60 mmHg; heart rate in the 40s. - Denies current alcohol consumption; stopped drinking a month ago. Atrial Fibrillation: - History of AFib; recent discussion with Dr. Frank about potential ablation. - Dr. Frank noted AFib was okay and left ventricular function was okay. - Recent heart rate was 80 bpm, leading to medication adjustments. - Wilmer reports feeling tired and lacking energy. - Denies bleeding or bruising issues. - Denies increased thirst or polyuria. - Denies hearing problems. Chronic Kidney Disease: - Stage 3 CKD. - Recent initiation of Lasix 40 mg daily, x1 week. - No recent blood work to monitor kidney function or electrolytes since starting Lasix. MEDICATIONS: Current Outpatient Medications Medication Sig atenolol (TENORMIN) 25 mg tablet Take 25 mg by mouth once daily. flecainide (TAMBOCOR) 100 mg tablet Take 100 mg by mouth two times a day. sertraline (ZOLOFT) 100 mg tablet Take 1 tablet by mouth once daily. furosemide (LASIX) 40 mg tablet Take 40 mg by mouth once daily. umeclidinium-vilanterol (ANORO ELLIPTA) 62.5-25 mcg/actuation inhaler Inhale 1 Inhalation as instructed once daily. warfarin (COUMADIN) 5 mg tablet 7.5 mg every Mon, Fri; 5 mg all other days lisinopril (ZESTRIL) 10 mg tablet Take 1 tablet by mouth once daily. atorvastatin (LIPITOR) 20 mg tablet Take 1 tablet by mouth once daily. doxazosin (CARDURA) 1 mg tablet Take 1 tablet by mouth daily at bedtime. flecainide (TAMBOCOR) 100 mg tablet Take 1 tablet by mouth two times a day. (Patient taking differently: Take 100 mg by mouth once daily. Patient on Taper dose. Last dose is 11/16/24) albuterol HFA (VENTOLIN HFA) 90 mcg/actuation inhaler Inhale 2 Puffs as instructed every 4 hours as needed for wheezing/shortness of breath. loperamide HCl (IMODIUM) 2 mg tab Take 1 tablet by mouth as needed. amLODIPine (NORVASC) 5 mg tablet Take 5 mg by mouth once daily. (Patient not taking: Reported on 12/07/2024) No current facility-administered medications for this visit. 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 Benign neoplasm of colon CKD (chronic kidney disease), stage III (HCC) 04/08/2018 COPD (chronic obstructive pulmonary disease) (HCC) Diverticulosis of colon (without mention of hemorrhage) DVT (deep venous thrombosis) (HCC) Essential hypertension, benign 02/27/2010 Facial basal cell cancer 2009 Internal hemorrhoids without mention of complication Other and unspecified hyperlipidemia hypertriglyeridemia Personal history of colonic polyps PAST SURGICAL HISTORY Procedure Laterality Date CATARACT EXTRACTION HX Left CATARACT SURGERY, COMPLEX 2009 R eye COLONOSCOPY FLX DX W/COLLJ SPEC WHEN PFRMD 08/05/2000 Colonoscopy COLONOSCOPY FLX DX W/COLLJ SPEC WHEN PFRMD 11/02/2002 Colonoscopy COLONOSCOPY FLX DX W/COLLJ SPEC WHEN PFRMD 01/29/2009 COLONOSCOPY FLX DX W/COLLJ SPEC WHEN PFRMD 02/24/2014 Colonoscopy COLONOSCOPY FLX DX W/COLLJ SPEC WHEN PFRMD 03/09/2018 [facility]-repeat 10 years ESOPHAGOGASTRODUODENOSCOPY TRANSORAL DIAGNOSTIC N/A 08/16/2020 [facility] PAST SURGICAL HISTORY OF 2010 basal cell to right above upper lip FAMILY HISTORY Problem Relation Age of Onset Heart Father CHF Heart Mother CHF Heart Brother [place] - rheumatic fever Cancer Brother gastric Asthma Sister Social History Tobacco Use Smoking status: Former Average packs/day: 0.5 packs/day for 50.0 years (25.0 ttl pk-yrs) Types: Cigarettes Start date: 1958 Smokeless tobacco: Never Vaping Use Vaping status: Never Used Substance Use Topics Alcohol use: Yes Alcohol/week: 2.3 standard drinks of alcohol Types: 1 Glasses of Wine (5oz), 1 Mixed Drinks per week Comment: one drink a day Drug use: No Reviewed current medications, allergies, past medical history, surgical history, family history and social history today. REVIEW OF SYSTEMS Constitutional: (+) fatigue Ears/Nose/Mouth/Throat: (+) snoring, (-) hearing loss Cardiovascular: (+) near-syncope, (-) lower extremity edema Respiratory: (+) witnessed apnea, (-) wheezing Gastrointestinal: (-) constipation, (-) diarrhea Genitourinary: (-) dysuria Skin: (+) lower extremity discoloration Neurological: (+) balance instability, (+) positional disequilibrium, (-) dizziness Endocrine: (-) polydipsia Hematologic/Lymphatic: (-) easy bruising, (-) bleeding HEALTH MAINTENANCE: Reviewed health maintenance issues today and recommended the following in detail. Advance Directive Discussion due on 06/08/2024 Medicare Advantage Annual Wellness Visit Never done Covid-19 Vaccine( season) due on 09/02/2024 Depression Screening due on 11/10/2024 LAB REVIEWED: Labs: - BNP: 2170 (elevated) Imaging: - (11/28) Echocardiogram: No significant change from prior, normal left ventricular function VITALS: BP 118/58 Pulse (!) 49 Wt 93.9 kg (207 lb) SpO2 98% BMI 29.70 kg/m Last 4 Encounter Wt Readings: Date: Wt: 12/07/2024 93.9 kg (207 lb) 11/14/2024 92.3 kg (203 lb 6.4 oz) 11/02/2024 93.7 kg (206 lb 9.6 oz) 10/10/2024 93.9 kg (207 lb) PHYSICAL EXAMINATION: GENERAL: NAD, alert and oriented. SKIN: Unremarkable, no rash or skin lesions. OROPHARYNX: Lips, mucosa, and tongue normal, good dentition. No oral lesions noted. NECK: Supple, no lymphadenopathy, normal thyroid, no carotid bruits. LUNGS: Clear to auscultation bilaterally, no wheezes/rhonchi/rales. HEART: Irregular rhythm, no murmurs. No ectopy. EXTREMITIES: Normal, no deformities, no skin discoloration, no edema. NEURO: Awake, alert and oriented x3, cranial nerves II-XII grossly intact, normal gait, no involuntary motions. ASSESSMENT AND PLAN 1. Vertigo (R42) - Chronic imbalance described as feeling teetery and almost passing out, exacerbated by head movements up and down; no actual syncope reported. - Previous evaluations by ENT and vestibular therapy with minimal improvement. - Referred for vestibular therapy refresher. 2. Atrial fibrillation, unspecified type ([facility]) (I48.91) - Recent echocardiogram shows no significant changes over the last three years; left ventricular function remains stable. - Current heart rate controlled with atenolol, but patient reports fatigue and low heart rate in the 40s. - Discussed potential for ablation with slipman Dr. Frank. - Continue current medication regimen; monitor heart rate and symptoms. 3. Essential hypertension, benign (I10) - Blood pressure well-controlled with recent readings under 120/50-60 mmHg. - Recent medication adjustments by slipman, including discontinuation of Norvasc. - Continue monitoring blood pressure at home. 4. Chronic obstructive pulmonary disease, unspecified COPD type ([facility]) (J44.9) - Recent medication adjustments by Dr. Griffin have improved symptoms; no current wheezing. - Continue current medication regimen. 5. Stage 3a chronic kidney disease ([facility]) (N18.31) - Kidney function stable but requires monitoring due to recent initiation of Lasix 40 mg daily. - Ordered blood work to monitor kidney function, electrolytes, and magnesium levels. 6. Hyperglycemia (R73.9) - No current issues with hyperglycemia reported. 7. long term (current) use of anticoagulants (Z79.01) - Continue current anticoagulation therapy. 8. History of DVT (deep vein thrombosis) (Z86.718) - No new DVT events reported. 9. Pulmonary HTN ([facility]) (I27.20) - No worsening symptoms reported. - Continue current management. 10. Congestive heart failure, unspecified HF chronicity, unspecified heart failure type ([facility]) (I50.9) - Recent BNP elevated at 2,170 pg/mL. - No worsening edema reported. - Continue current management and follow-up with slipman. 11. MARY BETH (obstructive sleep apnea) (G47.33) - Symptoms of snoring and daytime fatigue reported. - Ordered home sleep study to evaluate for obstructive sleep apnea. (See patient after visit summary for additional instructions to patient) Tien Serrano MD Recording using [employer] software for draft documentation of the visit was discussed with the patient/authorized treasury representative; all questions welcomed and answered. Patient/authorized treasury representative agreed to proceed documented in this encounter [facility] 12-07-2024 Instructions Tien Serrano MD - 12/07/2024 9:31 AM EDT - Take atenolol exactly as prescribed by your slipman and do not restart Norvasc. - Continue lasix 40 mg by mouth once daily as started last week. - Get blood drawn to check your kidney function and electrolytes (sodium, potassium, magnesium) following the start of lasix. - Wear daily compression socks (for example, [place] or similar) to help prevent leg swelling and improve circulation. - Schedule and attend a vestibular therapy refresher to work on balance; do the home exercises as instructed. - Complete a home sleep study to evaluate your sleep apnea and mail back the equipment when finished. - Continue your breathing medications as adjusted by Dr. Griffin and report any new wheezing or shortness of breath. - Monitor your blood pressure and heart rate at home regularly and bring your readings to your next visits. - Plan to return here in about four months for follow-up and keep routine cardiology appointments with Dr. Frank. documented in this encounter [facility] 11-28-2024 Telephone encounter Note The following approved medication requests have been transmitted electronically. Requested Prescriptions Pending Prescriptions Disp Refills sertraline (ZOLOFT) 100 mg tablet 90 tablet 1 Sig: Take 1 tablet by mouth once daily. Alejandrina Quigley APRN.CNP [facility] 11-28-2024 Miscellaneous Notes The following approved medication requests have been transmitted electronically. Requested Prescriptions Pending Prescriptions Disp Refills sertraline (ZOLOFT) 100 mg tablet 90 tablet 1 Sig: Take 1 tablet by mouth once daily. Alejandrina Quigley APRN.CNP Prescription Refill Information The patient has been identified by name and date of : Yes Caregiver verified no other encounters exist for this prescription request: Yes Caregiver confirmed with patient/requestor that no other refills are due, in the near future, with this provider at this time: Yes The last office visit in the department: 11/02/24 Does the patient have a future office visit with this provider/department: Yes, 12/07/24 Requested Prescriptions Pending Prescriptions Disp Refills sertraline (ZOLOFT) 100 mg tablet 90 tablet 1 Sig: Take 1 tablet by mouth once daily. Tra Foss LPN November 28, 2024 5:52 PM documented in this encounter [facility] 11-28-2024 Telephone encounter Note Prescription Refill Information The patient has been identified by name and date of : Yes Caregiver verified no other encounters exist for this prescription request: Yes Caregiver confirmed with patient/requestor that no other refills are due, in the near future, with this provider at this time: Yes The last office visit in the department: 11/02/24 Does the patient have a future office visit with this provider/department: Yes, 12/07/24 Requested Prescriptions Pending Prescriptions Disp Refills sertraline (ZOLOFT) 100 mg tablet 90 tablet 1 Sig: Take 1 tablet by mouth once daily. Tra Foss LPN November 28, 2024 5:[address] [facility] 11-22-2024 Telephone encounter Note [facility] Ambulatory Pharmacy Anticoagulation Clinic Anticoagulation Episode Summary Anticoagulation Care Providers Provider Role Specialty Phone number Tien Serrano MD Referring Family Medicine [phone] Wilmer Morley is a 83 year old year old male patient being evaluated today for a Telemanagement visit. Patient is currently on the following anticoagulant(s) Warfarin. Labs Lab Results Component Value Date INR 2.0 11/21/2024 INR 2.9 11/05/2024 INR 2.7 10/20/2024 Lab Results Component Value Date HB 13.4 10/27/2024 HB 13.9 11/03/2023 HB 13.9 01/30/2022 Lab Results Component Value Date HCT 40.2 10/27/2024 HCT 42.3 11/03/2023 HCT 43.0 01/30/2022 Lab Results Component Value Date PLT 149 (L) 10/27/2024 PLT 162 11/03/2023 PLT 170 01/30/2022 Lab Results Component Value Date CREAT 1.31 (H) 11/07/2024 CREAT 1.55 (H) 11/01/2024 CREAT 1.43 (H) 10/27/2024 No components found for: TBILI3 Lab Results Component Value Date ALT 20 10/27/2024 ALT 35 11/03/2023 ALT 13 10/27/2022 Lab Results Component Value Date AST 19 10/27/2024 AST 33 11/03/2023 AST 14 10/27/2022 Estimated Creatinine Clearance: 49.6 mL/min (A) (based on SCr of 1.31 mg/dL (H)). ALLERGIES No Known Allergies 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: Anticoagulation Episode Summary Current INR goal: 2.0-3.0 Assessment: INR result of 2.0 is therapeutic Plan: Current Warfarin Dosing As of 11/22/2024 Full warfarin instructions: 7.5 mg every Mon; 5 mg all other days Sent HowGood message Advised patient to continue current weekly dose as noted above Next home INR check scheduled on 12/06/2024 Patient advised to call the PAC with any medication changes, bleeding/bruising concerns, recent changes in vitamin k consumption, if any procedures are coming up, if they have been ill or in the hospital, and if they have missed any doses of warfarin. Arabella Lopez RPh Clinical Pharmacist, Pharmacy Anticoagulation Clinic Pharmacy Anticoagulation Clinic Pager: [phone]. [facility] 11-22-2024 Miscellaneous Notes [facility] Ambulatory Pharmacy Anticoagulation Clinic Anticoagulation Episode Summary Anticoagulation Care Providers Provider Role Specialty Phone number Tien Serrano MD Referring Family Medicine [phone] Wilmer Morley is a 83 year old year old male patient being evaluated today for a Telemanagement visit. Patient is currently on the following anticoagulant(s) Warfarin. Labs Lab Results Component Value Date INR 2.0 11/21/2024 INR 2.9 11/05/2024 INR 2.7 10/20/2024 Lab Results Component Value Date HB 13.4 10/27/2024 HB 13.9 11/03/2023 HB 13.9 01/30/2022 Lab Results Component Value Date HCT 40.2 10/27/2024 HCT 42.3 11/03/2023 HCT 43.0 01/30/2022 Lab Results Component Value Date PLT 149 (L) 10/27/2024 PLT 162 11/03/2023 PLT 170 01/30/2022 Lab Results Component Value Date CREAT 1.31 (H) 11/07/2024 CREAT 1.55 (H) 11/01/2024 CREAT 1.43 (H) 10/27/2024 No components found for: [id number] Lab Results Component Value Date ALT 20 10/27/2024 ALT 35 11/03/2023 ALT 13 10/27/2022 Lab Results Component Value Date AST 19 10/27/2024 AST 33 11/03/2023 AST 14 10/27/2022 Estimated Creatinine Clearance: 49.6 mL/min (A) (based on SCr of 1.31 mg/dL (H)). ALLERGIES No Known Allergies 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: Anticoagulation Episode Summary Current INR goal: 2.0-3.0 Assessment: INR result of 2.0 is therapeutic Plan: Current Warfarin Dosing As of 11/22/2024 Full warfarin instructions: 7.5 mg every Mon; 5 mg all other days Sent HowGood message Advised patient to continue current weekly dose as noted above Next home INR check scheduled on 12/06/2024 Patient advised to call the PAC with any medication changes, bleeding/bruising concerns, recent changes in vitamin k consumption, if any procedures are coming up, if they have been ill or in the hospital, and if they have missed any doses of warfarin. Arabella Lopez RPh Clinical Pharmacist, Pharmacy Anticoagulation Clinic Pharm[facility] Pager: [phone]. documented in this encounter [facility] 11-14-2024 History of Present illness Narrative Images from the original note were not included. . [facility] [place] Note Patient name: Wilmer Morley PCP: Tien Serrano MD Referring Physician: Same Consultation requested by Dr. Serrano for an opinion regarding COPD. My final recommendations will be communicated back to the requesting physician by way of shared Medical record or letter to requesting physician via US mail. CC: Dyspnea HPI: Wilmer Morley 83 year old male former 25 pack year smoker, quitting in 2009 with PMH significant for CKD, AF, HTN, HLD being referred for evaluation COPD. Two year history of progressive dyspnea on exertion. Has to stop and rest with activities of daily living. He has had rather persistent wheezing. Rare cough with difficulty expectorating phlegm but when he is able to produce sputum it is clear to yellow in color. No chest pain. No peripheral edema. Recently started on Spiriva which does seem to help with wheezing and mild improvement in his shortness of breath. No history of recurrent bronchitis or pneumonia. No prior history of asthma. No nocturnal awakenings. DATA: COPD Assessment Test I never cough 0 1 2 3 4 5 I cough all the time; Score 2 I have no phlegm 0 1 2 3 4 5 My chest is completely full of phlegm; Score 3 My chest does not feel tight at all 0 1 2 3 4 5 My chest chest feels very tight; Score 1 When I walk up a hill or one flight of stairs I am not breathless 0 1 2 3 4 5 When I walk up a hill or one flight or stairs I am very breathless; Score 5 I am not limited doing any activities at home 0 1 2 3 4 5 I am very limited doing activities at home; Score 3 I am confident leaving my home despite my lung condition 0 1 2 3 4 5 I am not at all confident leaving my home because of my lung condition; Score 2 I sleep soundly 0 1 2 3 4 5 don't sleep soundly because of my lungs; Score 0 I have lots of energy 0 1 2 3 4 5 I have no energy at all; Score 3 Total Score: 19 PFT 2023: Pulmonary function test show moderate obstruction with marked improvement postbronchodilator, air trapping and hyperinflation Labs: Component Ref Range & Units 8 d ago 3 yr ago NT Pro BNP <450 pg/mL 1,885 High 1,805 High Component Ref Range & Units 8 d ago (10/27/24) WBC 3.70 - 11.00 k/uL 6.65 RBC 4.20 - 6.00 m/uL 4.15 Low Hemoglobin 13.0 - 17.0 g/dL 13.4 Hematocrit 39.0 - 51.0 % 40.2 MCV 80.0 - 100.0 fL 96.9 MCH 26.0 - 34.0 pg 32.3 MCHC 30.5 - 36.0 g/dL 33.3 RDW-CV 11.5 - 15.0 % 13.1 Platelet Count 150 - 400 k/uL 149 Low MPV 9.0 - 12.7 fL 9.4 Neutrophils % % 64.6 Abs Neut 1.45 - 7.50 k/uL 4.30 Lymphocytes % % 20.9 Abs Lymph 1.00 - 4.00 k/uL 1.39 Monocytes % % 9.3 Abs [place] <0.87 k/uL 0.62 Eosinophils % % 4.4 Abs Eosin <0.46 k/uL 0.29 Basophils % % 0.5 Abs Baso <0.11 k/uL 0.03 Immature Granulocytes % % 0.3 Abs Immature Gran <0.10 k/uL <0.03 Imaging / Diagnostic Studies: DATE OF EXAM: Oct 11 2024 11:07AM [id number] - XR CHEST 2V FRONTAL/LAT / EXAM DATE/TIME: 10/11/2024 11:07 AM COMPARISON: Chest x-ray of 02/10/2024 RESULT: Lines, tubes, and devices: None. Lungs and pleura: No consolidation. No lung mass. No pleural effusion. No pneumothorax. Cardiomediastinal silhouette: Normal cardiomediastinal silhouette. Bones and soft tissues: Stable degenerative changes of the mid to lower thoracic spine. ECHO 2022: Conclusion Normal RV/LV size and function and ejection fraction 65%. Mild-moderate 2+ mitral and tricuspid regurgitation with moderate pulmonary hypertension at 51 mmHg. Trace pericardial effusion. Compared to study 11/2019, no significant changes. Left Ventricle The left ventricle is normal size. Left ventricular systolic function is normal. There is normal left ventricular wall thickness. There is normal LV segmental wall motion. Left ventricular filling pattern is normal for age. LVEF is 65%. Right Ventricle The right ventricle is normal size. The right ventricular systolic function is normal. Atria Left atrium is moderately dilated. Right atrium is moderately dilated. Aortic Valve Mild aortic valve sclerosis. There is no aortic valvular stenosis. No aortic regurgitation is present. Mitral Valve The mitral valve is normal in structure. Mild-moderate mitral regurgitation. Tricuspid Valve The tricuspid valve is normal in structure. Mild The RVSP is 50-55 mmHg.-moderate tricuspid regurgitation. Pulmonic Valve The pulmonary valve is normal in structure. Great Vessels The aortic root is normal in size. Pericardium Trace pericardial effusion. 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 warfarin (COUMADIN) 5 mg tablet 7.5 mg every Mon, Fri; 5 mg all other days (Patient taking differently: 7.5 mg every Mon, 5 mg all other days) lisinopril (ZESTRIL) 10 mg tablet Take 1 tablet by mouth once daily. flecainide (TAMBOCOR) 100 mg tablet Take 1 tablet by mouth two times a day. (Patient taking differently: Take 100 mg by mouth once daily. Patient on Taper dose. Last dose is 11/16/24) atorvastatin (LIPITOR) 20 mg tablet Take 1 tablet by mouth once daily. sertraline (ZOLOFT) 100 mg tablet Take 1 tablet by mouth once daily. albuterol HFA (VENTOLIN HFA) 90 mcg/actuation inhaler Inhale 2 Puffs as instructed every 4 hours as needed for wheezing/shortness of breath. loperamide HCl (IMODIUM) 2 mg tab Take 1 tablet by mouth as needed. doxazosin (CARDURA) 1 mg tablet Take 1 tablet by mouth daily at bedtime. amLODIPine (NORVASC) 5 mg tablet Take 5 mg by mouth once daily. umeclidinium-vilanterol (ANORO ELLIPTA) 62.5-25 mcg/actuation inhaler Inhale 1 Inhalation as instructed once daily. 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 FAMILY HISTORY Problem Relation Age of Onset Heart Father CHF Heart Mother CHF Heart Brother [place] - rheumatic fever Cancer Brother gastric Asthma Sister PAST SURGICAL HISTORY Procedure Laterality Date CATARACT EXTRACTION HX Left CATARACT SURGERY, COMPLEX 2009 R eye COLONOSCOPY FLX DX W/COLLJ SPEC WHEN PFRMD 08/05/2000 Colonoscopy COLONOSCOPY FLX DX W/COLLJ SPEC WHEN PFRMD 11/02/2002 Colonoscopy COLONOSCOPY FLX DX W/COLLJ SPEC WHEN PFRMD 01/29/2009 COLONOSCOPY FLX DX W/COLLJ SPEC WHEN PFRMD 02/24/2014 Colonoscopy COLONOSCOPY FLX DX W/COLLJ SPEC WHEN PFRMD 03/09/2018 MARCIAL Garcia-repeat 10 years ESOPHAGOGASTRODUODENOSCOPY TRANSORAL DIAGNOSTIC N/A 08/16/[facility] 2010 basal cell to right above upper lip PMH, Social history, family history and surgical history reviewed and updated in EMR REVIEW OF SYSTEMS: CONSTITUTIONAL: No fevers, chills, nightsweats, unintended weight loss HEENT: Denies nasal congestion/sinus symptoms, problematic allergy problems. CARDIOVASCULAR: No chest pain, palpitations, orthopnea, edema. PULM: See HPI GI: No dysphagia/odynophagia, problematic reflux NEURO: Balance problems. No peripheral weakness/paresthesias or numbness of concern. MUSC-SKEL: No joint pain, swelling, or erythema. INTEGUMENTARY: No new skin changes PHYSICAL EXAMINATION: BP 136/74 Pulse 81 Resp 17 Wt 203 lb 6.4 oz (92.3kg) SpO2 94% General Appearance: age appropriate, NAD. Skin: Skin color, texture, turgor normal, no suspicious rashes or lesions. Head: Normocephalic, no masses, lesions, tenderness or abnormalities. Eyes: Sclera, conjunctiva normal. Oropharynx: No oral lesions or thrush. Neck: No masses, adenopathy or JVD. Lungs: Not labored, few rhonchi on the right. Heart: RRR, no murmur. Extremities: Left edema with chronic venous stasis, no clubbing. Assessment/Plan: Moderate COPD -Symptomatic moderate COPD -Changed inhaled therapy to LAMA/LABA with continued use of albuterol as needed Former smoker -Former smoker with sequelae of COPD -Continue abstinence -Does not qualify for lung cancer screening based on duration of smoking cessation and his age Moderate pulmonary hypertension - Follows with cardiology. Pending updated echocardiogram - Continue Elan Griffin MD [facility] [place] documented in this encounter [facility] 11-14-2024 Note HNO ID: [id number] Author: LIA GRIFFIN MD Service: ? Author Type: Physician Type: Progress Notes Filed: 11/14/2024 10:27 Note Text: . [facility] [place] Note Patient name: Wilmer Morley PCP: Tien Serrano MD Referring Physician: Same Consultation requested by Dr. Serrano for an opinion regarding COPD. My final recommendations will be communicated back to the requesting physician by way of shared Medical record or letter to requesting physician via [place] mail. CC: Dyspnea HPI: Wilmer Morley 83 year old male former 25 pack year smoker, quitting in 2009 with PMH significant for CKD, AF, HTN, HLD being referred for evaluation COPD. Two year history of progressive dyspnea on exertion. Has to stop and rest with activities of daily living. He has had rather persistent wheezing. Rare cough with difficulty expectorating phlegm but when he is able to produce sputum it is clear to yellow in color. No chest pain. No peripheral edema. Recently started on Spiriva which does seem to help with wheezing and mild improvement in his shortness of breath. No history of recurrent bronchitis or pneumonia. No prior history of asthma. No nocturnal awakenings. DATA: COPD Assessment Test I never cough 0 1 2 3 4 5 I cough all the time; Score 2 I have no phlegm 0 1 2 3 4 5 My chest is completely full of phlegm; Score 3 My chest does not feel tight at all 0 1 2 3 4 5 My chest chest feels very tight; Score 1 When I walk up a hill or one flight of stairs I am not breathless 0 1 2 3 4 5 When I walk up a hill or one flight or stairs I am very breathless; Score 5 I am not limited doing any activities at home 0 1 2 3 4 5 I am very limited doing activities at home; Score 3 I am confident leaving my home despite my lung condition 0 1 2 3 4 5 I am not at all confident leaving my home because of my lung condition; Score 2 I sleep soundly 0 1 2 3 4 5 don't sleep soundly because of my lungs; Score 0 I have lots of energy 0 1 2 3 4 5 I have no energy at all; Score 3 Total Score: 19 PFT 2023: Pulmonary function test show moderate obstruction with marked improvement postbronchodilator, air trapping and hyperinflation Labs: Component Ref Range AND Units 8 d ago 3 yr ago NT Pro BNP <450 pg/mL 1,885 High 1,805 High Component Ref Range AND Units 8 d ago (10/27/24) WBC 3.70 - 11.00 k/uL 6.65 RBC 4.20 - 6.00 m/uL 4.15 Low Hemoglobin 13.0 - 17.0 g/dL 13.4 Hematocrit 39.0 - 51.0 % 40.2 MCV 80.0 - 100.0 fL 96.9 MCH 26.0 - 34.0 pg 32.3 MCHC 30.5 - 36.0 g/dL 33.3 RDW-CV 11.5 - 15.0 % 13.1 Platelet Count 150 - 400 k/uL 149 Low MPV 9.0 - 12.7 fL 9.4 Neutrophils % % 64.6 Abs Neut 1.45 - 7.50 k/uL 4.30 Lymphocytes % % 20.9 Abs Lymph 1.00 - 4.00 k/uL 1.39 Monocytes % % 9.3 Abs [place] <0.87 k/uL 0.62 Eosinophils % % 4.4 Abs Eosin <0.46 k/uL 0.29 Basophils % % 0.5 Abs Baso <0.11 k/uL 0.03 Immature Granulocytes % % 0.3 Abs Immature Gran <0.10 k/uL <0.03 Imaging / Diagnostic Studies: DATE OF EXAM: Oct 11 2024 11:07AM [id number] - XR CHEST 2V FRONTAL/LAT / EXAM DATE/TIME: 10/11/2024 11:07 AM COMPARISON: Chest x-ray of 02/10/2024 RESULT: Lines, tubes, and devices: None. Lungs and pleura: No consolidation. No lung mass. No pleural effusion. No pneumothorax. Cardiomediastinal silhouette: Normal cardiomediastinal silhouette. Bones and soft tissues: Stable degenerative changes of the mid to lower thoracic spine. ECHO 2022: Conclusion Normal RV/LV size and function and ejection fraction 65%. Mild-moderate 2+ mitral and tricuspid regurgitation with moderate pulmonary hypertension at 51 mmHg. Trace pericardial effusion. Compared to study 11/2019, no significant changes. Left Ventricle The left ventricle is normal size. Left ventricular systolic function is normal. There is normal left ventricular wall thickness. There is normal LV segmental wall motion. Left ventricular filling pattern is normal for age. LVEF is 65%. Right Ventricle The right ventricle is normal size. The right ventricular systolic function is normal. Atria Left atrium is moderately dilated. Right atrium is moderately dilated. Aortic Valve Mild aortic valve sclerosis. There is no aortic valvular stenosis. No aortic regurgitation is present. Mitral Valve The mitral valve is normal in structure. Mild-moderate mitral regurgitation. Tricuspid Valve The tricuspid valve is normal in structure. Mild The RVSP is 50-55 mmHg.-moderate tricuspid regurgitation. Pulmonic Valve The pulmonary valve is normal in structure. Great Vessels The aortic root is normal in size. Pericardium Trace pericardial effusion. 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 [facility] 11-08-2024 Telephone encounter Note Patient notified of provider plan and is agreeable. Stephany Stein MA November 08, 2024 2:[address] [facility] 11-08-2024 Miscellaneous Notes Patient notified of provider plan and is agreeable. Stephany Stein MA November 08, 2024 2:45 PM Ok. Can take a lasix today and keep appt with Dr Frank in tomorrow. Let me know what he says Patient returned call and went over results, notes from Dr Serrano with understanding. Patient said yes, appt is 11/09/2024 at 9 am. He is feeling the same with the shortness of breath, no increase in swelling. His weight is stable within a pound. Printed lab results and faxed to [phone] as requested. Message left for return call. Angie Jean MA His labs are stable. His bnp is up a little higher. Verify with him but I think he is seeing his slipman, Dr Frank in [place] this week? If he is, lets fax to him. Verify how feeling, any worsening swelling or shortness of breath? documented in this encounter [facility] 11-08-2024 Telephone encounter Note Ok. Can take a lasix today and keep appt with Dr Frank in tomorrow. Let me know what he says [facility] 11-08-2024 Telephone encounter Note Patient returned call and went over results, notes from Dr Serrano with understanding. Patient said yes, appt is 11/09/2024 at 9 am. He is feeling the same with the shortness of breath, no increase in swelling. His weight is stable within a pound. Printed lab results and faxed to [phone] [facility] 11-08-2024 Telephone encounter Note Message left for return call. Angie Jean MA [facility] 11-08-2024 Telephone encounter Note His labs are stable. His bnp is up a little higher. Verify with him but I think he is seeing his slipman, Dr Frank in [place] this week? If he is, lets fax to him. Verify how feeling, any worsening swelling or shortness of breath? [facility] 11-07-2024 Telephone encounter Note Prescription Refill Information The patient has been identified by name and date of : Yes Caregiver verified no other encounters exist for this prescription request: Yes Caregiver confirmed with patient/requestor that no other refills are due, in the near future, with this provider at this time: Yes The last office visit in the department: 11/02/24 Does the patient have a future office visit with this provider/department: Yes, 12/07/24 Requested Prescriptions Pending Prescriptions Disp Refills warfarin (COUMADIN) 5 mg tablet 90 tablet 1 Si.5 mg every Mon, Fri; 5 mg all other days Tra Foss LPN November 07, 2024 5:[address] [facility] 11-07-2024 Miscellaneous Notes Prescription Refill Information The patient has been identified by name and date of : Yes Caregiver verified no other encounters exist for this prescription request: Yes Caregiver confirmed with patient/requestor that no other refills are due, in the near future, with this provider at this time: Yes The last office visit in the department: 11/02/24 Does the patient have a future office visit with this provider/department: Yes, 12/07/24 Requested Prescriptions Pending Prescriptions Disp Refills warfarin (COUMADIN) 5 mg tablet 90 tablet 1 Si.5 mg every Mon, Fri; 5 mg all other days Tra Foss LPN November 07, 2024 5:35 PM documented in this encounter [facility] 11-07-2024 Telephone encounter Note Prescription Refill Information The patient has been identified by name and date of : Yes Caregiver verified no other encounters exist for this prescription request: Yes Caregiver confirmed with patient/requestor that no other refills are due, in the near future, with this provider at this time: Yes The last office visit in the department: 11/02/24 Does the patient have a future office visit with this provider/department: Yes, 12/07/24 Requested Prescriptions Pending Prescriptions Disp Refills lisinopril (ZESTRIL) 10 mg tablet 90 tablet 1 Sig: Take 1 tablet by mouth once daily. Tra Foss LPN November 07, 2024 3:[address] [facility] 11-07-2024 Miscellaneous Notes Prescription Refill Information The patient has been identified by name and date of : Yes Caregiver verified no other encounters exist for this prescription request: Yes Caregiver confirmed with patient/requestor that no other refills are due, in the near future, with this provider at this time: Yes The last office visit in the department: 11/02/24 Does the patient have a future office visit with this provider/department: Yes, 12/07/24 Requested Prescriptions Pending Prescriptions Disp Refills lisinopril (ZESTRIL) 10 mg tablet 90 tablet 1 Sig: Take 1 tablet by mouth once daily. Tra Foss LPN November 07, 2024 3:39 PM documented in this encounter [facility] 11-07-2024 Telephone encounter Note [facility] Ambulatory Pharmacy Anticoagulation Clinic Anticoagulation Episode Summary Anticoagulation Care Providers Provider Role Specialty Phone number Tien Serrano MD Referring Family Medicine [phone] Wilmer Morley is a 83 year old year old male patient being evaluated today for a Telemanagement visit. Patient is currently on the following anticoagulant(s) Warfarin. Labs PT INR (no units) Date Value 09/16/2021 2.9 09/02/2021 3.2 06/06/2021 2.5 biotel INR Home CoaguChek (no units) Date Value 11/05/2024 2.9 10/20/2024 2.7 10/08/2024 1.6 Hemoglobin (g/dL) Date Value 10/27/2024 13.4 03/14/2021 14.8 Hematocrit (%) Date Value 10/27/2024 40.2 03/14/2021 44.9 Platelet Count (k/uL) Date Value 10/27/2024 149 03/14/2021 191 Creatinine (mg/dL) Date Value 11/01/2024 1.55 10/27/2024 1.43 12/28/2023 1.09 03/14/2021 1.34 09/06/2020 1.27 08/06/2020 1.43 Bilirubin, Total (mg/dL) Date Value 10/27/2024 0.6 03/14/2021 1.1 ALT (U/L) Date Value 10/27/2024 20 03/14/2021 32 AST (U/L) Date Value 10/27/2024 19 03/14/2021 30 Estimated Creatinine Clearance: 42.3 mL/min (A) (based on SCr of 1.55 mg/dL (H)). ALLERGIES No Known Allergies 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: Anticoagulation Episode Summary Current INR goal: 2.0-3.0 Assessment: INR result of 2.9 is therapeutic Plan: Current Warfarin Dosing As of 11/07/2024 Full warfarin instructions: 7.5 mg every Mon; 5 mg all other days Sent HowGood message Advised patient to continue current weekly dose as noted above Next INR check due on 11/21/2024 Namita Gee RPh Clinical Pharmacist, Pharmacy Anticoagulation Clinic Pharmacy [facility] Pager: [phone]. [facility] 11-07-2024 Miscellaneous Notes [facility] Ambulatory Pharmacy Anticoagulation Clinic Anticoagulation Episode Summary Anticoagulation Care Providers Provider Role Specialty Phone number Tien Serrano MD Referring Family Medicine [phone] Wilmer Morley is a 83 year old year old male patient being evaluated today for a Telemanagement visit. Patient is currently on the following anticoagulant(s) Warfarin. Labs PT INR (no units) Date Value 09/16/2021 2.9 09/02/2021 3.2 06/06/2021 2.5 biotel INR Home CoaguChek (no units) Date Value 11/05/2024 2.9 10/20/2024 2.7 10/08/2024 1.6 Hemoglobin (g/dL) Date Value 10/27/2024 13.4 03/14/2021 14.8 Hematocrit (%) Date Value 10/27/2024 40.2 03/14/2021 44.9 Platelet Count (k/uL) Date Value 10/27/2024 149 03/14/2021 191 Creatinine (mg/dL) Date Value 11/01/2024 1.55 10/27/2024 1.43 12/28/2023 1.09 03/14/2021 1.34 09/06/2020 1.27 08/06/2020 1.43 Bilirubin, Total (mg/dL) Date Value 10/27/2024 0.6 03/14/2021 1.1 ALT (U/L) Date Value 10/27/2024 20 03/14/2021 32 AST (U/L) Date Value 10/27/2024 19 03/14/2021 30 Estimated Creatinine Clearance: 42.3 mL/min (A) (based on SCr of 1.55 mg/dL (H)). ALLERGIES No Known Allergies 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: Anticoagulation Episode Summary Current INR goal: 2.0-3.0 Assessment: INR result of 2.9 is therapeutic Plan: Current Warfarin Dosing As of 11/07/2024 Full warfarin instructions: 7.5 mg every Thu; 5 mg all other days Sent HowGood message Advised patient to continue current weekly dose as noted above Next INR check due on 11/21/2024 Namita Gee RPh Clinical Pharmacist, Pharmacy Anticoagulation Clinic Pharmacy Antico[facility] Clinic Pager: [phone]. documented in this encounter [facility] 11-02-2024 Instructions Tien Serrano MD - 11/02/2024 11:16 AM EDT Get labs on Thursday. Hold on further lasix unless we tell you to use it. Weigh daily and call if you gain more than three or four lbs in a 24 hours. Call if more short of breath or edema. documented in this encounter [facility] 11-02-2024 Note HNO ID: [id number] Author: TIEN SERRANO MD Service: ? Author Type: Physician Type: Progress Notes Filed: 11/02/2024 11:18 Note Text: Patient presents with: 6 Month Exam HPI: Patient presents today for office visit for routine 6 month follow up. HTN: Denies chest pain No new or worsening shortness of breath Denies headaches Occ dizziness with exertion Currently in A-fib. Denies syncopal episodes No edema Over the last few months, he has noted occasional lightheadedness and has noted he is intermittently in fib again. Follows with Cardiology. Has appointment next week. Continues anticoag. No bleeding or bruising concerns. Due to his elevated bnp, we gave him some lasix. His renal function is not as much as it used to. He does feel better since on lasix. Will hold on it further since better. Remains on coumadin. He is not short of breath when he lays down. No new edema. HLD: No myalgias Seeing Pulmonary in November. Less wheezing. Note was copied and pasted, without alteration from previous ov: Wintered in [place]. Had elected initially not see pulmonary. Had pfts and work up done previously. Added inhalers. Feels like they are losing their effectiveness. Can cough but did start a month ago bringing up green sputum. Before was clear. No sore throat or ear pain or fever. Remains on coumadin. Inr has been up to date. Bp is stable. Still seeing cardiology. No worsening chest pain or worsening palpitations. No edema. Can be more short of breath when lying down. Had echo done in the past for same. Cardiology did not think it was his heart. No bleeding or bruising. Has labs scheduled soon. Last chest xray was ok. Recently inr had climbed due to doxycycline from derm. Latest Ref Rng 10/27/2024 11/01/2024 WBC 3.70 - 11.00 k/uL 6.65 RBC 4.20 - 6.00 m/uL 4.15 (L) Hemoglobin 13.0 - 17.0 g/dL 13.4 Hematocrit 39.0 - 51.0 % 40.2 MCV 80.0 - 100.0 fL 96.9 MCH 26.0 - 34.0 pg 32.3 MCHC 30.5 - 36.0 g/dL 33.3 RDW-CV 11.5 - 15.0 % 13.1 Platelet Count 150 - 400 k/uL 149 (L) MPV 9.0 - 12.7 fL 9.4 Neut% % 64.6 Abs Neut (ANC) 1.45 - 7.50 k/uL 4.30 Lymph% % 20.9 Abs Lymph 1.00 - 4.00 k/uL 1.39 [place]% % 9.3 Abs [place] <0.87 k/uL 0.62 Eosin% % 4.4 Abs Eosin <0.46 k/uL 0.29 Baso% % 0.5 Abs Baso <0.11 k/uL 0.03 Immature Gran % % 0.3 IMMATURE GRANS (ABS) <0.10 k/uL <0.03 NRBC /100 WBC 0.0 Absolute nRBC <0.01 k/uL <0.01 DTYPE Auto Protein, Total 6.3 - 8.0 g/dL 7.1 Albumin 3.9 - 4.9 g/dL 4.2 Calcium 8.5 - 10.2 mg/dL 9.2 9.0 Bilirubin, Total 0.2 - 1.3 mg/dL 0.6 Alkaline Phosphatase 38 - 113 U/L 87 AST 14 - 40 U/L 19 ALT 10 - 54 U/L 20 Glucose 74 - 99 mg/dL 90 98 BUN 9 - 24 mg/dL 37 (H) 42 (H) Creatinine 0.73 - 1.22 mg/dL 1.43 (H) 1.55 (H) Sodium 136 - 144 mmol/L 137 139 Potassium 3.7 - 5.1 mmol/L 4.8 4.3 Chloride 98 - 107 mmol/L 104 105 CO2 22 - 30 mmol/L 21 (L) 21 (L) Anion Gap 8 - 15 mmol/L 12 13 eGFR >=60 mL/min/1.73m? 49 (L) 44 (L) Cholesterol, Total <200 mg/dL 114 Triglyceride <150 mg/dL 80 HDL Cholesterol >39 mg/dL 48 LDL Cholesterol, Calculated <100 mg/dL 50 Non HDL Cholesterol <130 mg/dL 66 VLDL Cholesterol <30 mg/dL 11 TC:HDL Ratio <5.10 2.38 LDL:HDL Ratio <2.54 1.04 Fasting Time hrs 12 Hemoglobin A1C 4.3 - 5.6 % 5.8 (H) Estimated Average Glucose mg/dL 120 NT Pro BNP <450 pg/mL 1,885 (H) Legend: (L) Low (H) High MEDICATIONS: Current Outpatient Medications Medication Sig furosemide (LASIX) 20 mg tablet Take 3 tablets by mouth once daily. flecainide (TAMBOCOR) 100 mg tablet Take 1 tablet by mouth two times a day. atorvastatin (LIPITOR) 20 mg tablet Take 1 tablet by mouth once daily. warfarin (COUMADIN) 5 mg tablet 7.5 mg every Mon, Fri; 5 mg all other days sertraline (ZOLOFT) 100 mg tablet Take 1 tablet by mouth once daily. tiotropium (SPIRIVA WITH HANDIHALER) 18 mcg inhalation capsule Inhale 1 capsule as instructed once daily. Use with handihaler. albuterol HFA (VENTOLIN HFA) 90 mcg/actuation inhaler Inhale 2 Puffs as instructed every 4 hours as needed for wheezing/shortness of breath. lisinopril (ZESTRIL) 10 mg tablet Take 1 tablet by mouth once daily. loperamide HCl (IMODIUM) 2 mg tab Take 1 tablet by mouth as needed. doxazosin (CARDURA) 1 mg tablet Take 1 tablet by mouth daily at bedtime. amLODIPine (NORVASC) 5 mg tablet Take 5 mg by mouth once daily. No current facility-administered medications for this visit. 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 [facility] 11-02-2024 History of Present illness Narrative Patient presents with: 6 Month Exam HPI: Patient presents today for office visit for routine 6 month follow up. HTN: Denies chest pain No new or worsening shortness of breath Denies headaches Occ dizziness with exertion Currently in A-fib. Denies syncopal episodes No edema Over the last few months, he has noted occasional lightheadedness and has noted he is intermittently in fib again. Follows with Cardiology. Has appointment next week. Continues anticoag. No bleeding or bruising concerns. Due to his elevated bnp, we gave him some lasix. His renal function is not as much as it used to. He does feel better since on lasix. Will hold on it further since better. Remains on coumadin. He is not short of breath when he lays down. No new edema. HLD: No myalgias Seeing Pulmonary in November. Less wheezing. Note was copied and pasted, without alteration from previous ov: Wintered in [place]. Had elected initially not see pulmonary. Had pfts and work up done previously. Added inhalers. Feels like they are losing their effectiveness. Can cough but did start a month ago bringing up green sputum. Before was clear. No sore throat or ear pain or fever. Remains on coumadin. Inr has been up to date. Bp is stable. Still seeing cardiology. No worsening chest pain or worsening palpitations. No edema. Can be more short of breath when lying down. Had echo done in the past for same. Cardiology did not think it was his heart. No bleeding or bruising. Has labs scheduled soon. Last chest xray was ok. Recently inr had climbed due to doxycycline from derm. Latest Ref Rng 10/27/2024 11/01/2024 WBC 3.70 - 11.00 k/uL 6.65 RBC 4.20 - 6.00 m/uL 4.15 (L) Hemoglobin 13.0 - 17.0 g/dL 13.4 Hematocrit 39.0 - 51.0 % 40.2 MCV 80.0 - 100.0 fL 96.9 MCH 26.0 - 34.0 pg 32.3 MCHC 30.5 - 36.0 g/dL 33.3 RDW-CV 11.5 - 15.0 % 13.1 Platelet Count 150 - 400 k/uL 149 (L) MPV 9.0 - 12.7 fL 9.4 Neut% % 64.6 Abs Neut (ANC) 1.45 - 7.50 k/uL 4.30 Lymph% % 20.9 Abs Lymph 1.00 - 4.00 k/uL 1.39 [place]% % 9.3 Abs [place] <0.87 k/uL 0.62 Eosin% % 4.4 Abs Eosin <0.46 k/uL 0.29 Baso% % 0.5 Abs Baso <0.11 k/uL 0.03 Immature Gran % % 0.3 IMMATURE GRANS (ABS) <0.10 k/uL <0.03 NRBC /100 WBC 0.0 Absolute nRBC <0.01 k/uL <0.01 DTYPE Auto Protein, Total 6.3 - 8.0 g/dL 7.1 Albumin 3.9 - 4.9 g/dL 4.2 Calcium 8.5 - 10.2 mg/dL 9.2 9.0 Bilirubin, Total 0.2 - 1.3 mg/dL 0.6 Alkaline Phosphatase 38 - 113 U/L 87 AST 14 - 40 U/L 19 ALT 10 - 54 U/L 20 Glucose 74 - 99 mg/dL 90 98 BUN 9 - 24 mg/dL 37 (H) 42 (H) Creatinine 0.73 - 1.22 mg/dL 1.43 (H) 1.55 (H) Sodium 136 - 144 mmol/L 137 139 Potassium 3.7 - 5.1 mmol/L 4.8 4.3 Chloride 98 - 107 mmol/L 104 105 CO2 22 - 30 mmol/L 21 (L) 21 (L) Anion Gap 8 - 15 mmol/L 12 13 eGFR >=60 mL/min/1.73m 49 (L) 44 (L) Cholesterol, Total <200 mg/dL 114 Triglyceride <150 mg/dL 80 HDL Cholesterol >39 mg/dL 48 LDL Cholesterol, Calculated <100 mg/dL 50 Non HDL Cholesterol <130 mg/dL 66 VLDL Cholesterol <30 mg/dL 11 TC:HDL Ratio <5.10 2.38 LDL:HDL Ratio <2.54 1.04 Fasting Time hrs 12 Hemoglobin A1C 4.3 - 5.6 % 5.8 (H) Estimated Average Glucose mg/dL 120 NT Pro BNP <450 pg/mL 1,885 (H) Legend: (L) Low (H) High MEDICATIONS: Current Outpatient Medications Medication Sig furosemide (LASIX) 20 mg tablet Take 3 tablets by mouth once daily. flecainide (TAMBOCOR) 100 mg tablet Take 1 tablet by mouth two times a day. atorvastatin (LIPITOR) 20 mg tablet Take 1 tablet by mouth once daily. warfarin (COUMADIN) 5 mg tablet 7.5 mg every Mon, Fri; 5 mg all other days sertraline (ZOLOFT) 100 mg tablet Take 1 tablet by mouth once daily. tiotropium (SPIRIVA WITH HANDIHALER) 18 mcg inhalation capsule Inhale 1 capsule as instructed once daily. Use with handihaler. albuterol HFA (VENTOLIN HFA) 90 mcg/actuation inhaler Inhale 2 Puffs as instructed every 4 hours as needed for wheezing/shortness of breath. lisinopril (ZESTRIL) 10 mg tablet Take 1 tablet by mouth once daily. loperamide HCl (IMODIUM) 2 mg tab Take 1 tablet by mouth as needed. doxazosin (CARDURA) 1 mg tablet Take 1 tablet by mouth daily at bedtime. amLODIPine (NORVASC) 5 mg tablet Take 5 mg by mouth once daily. No current facility-administered medications for this visit. 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 Benign neoplasm of colon CKD (chronic kidney disease), stage III (HCC) 04/08/2018 Diverticulosis of colon (without mention of hemorrhage) Essential hypertension, benign 02/27/2010 Facial basal cell cancer 2009 Internal hemorrhoids without mention of complication Other acute embolism veins Other and unspecified hyperlipidemia hypertriglyeridemia Personal history of colonic polyps PAST SURGICAL HISTORY Procedure Laterality Date CATARACT EXTRACTION HX Left CATARACT SURGERY, COMPLEX 2009 R eye COLONOSCOPY FLX DX W/COLLJ SPEC WHEN PFRMD 08/05/2000 Colonoscopy COLONOSCOPY FLX DX W/COLLJ SPEC WHEN PFRMD 11/02/2002 Colonoscopy COLONOSCOPY FLX DX W/COLLJ SPEC WHEN PFRMD 01/29/2009 COLONOSCOPY FLX DX W/COLLJ SPEC WHEN PFRMD 02/24/2014 Colonoscopy COLONOSCOPY FLX DX W/COLLJ SPEC WHEN PFRMD 03/09/2018 [facility] ESOPHAGOGASTRODUODENOSCOPY TRANSORAL DIAGNOSTIC N/A 08/16/2020 [facility] PAST [facility] H[facility] OF 2010 basal cell to right above upper lip FAMILY HISTORY Problem Relation Age of Onset Heart Father CHF Heart Mother CHF Heart Brother [place] - rheumatic fever Cancer Brother gastric Asthma Sister Social History Tobacco Use Smoking status: Former Current packs/day: 0.00 Types: Cigarettes Start date: 02/24/2010 Quit date: 02/24/2011 Years since quittin.6 Smokeless tobacco: Never Substance Use Topics Alcohol use: Yes Alcohol/week: 2.3 standard drinks of alcohol Types: 1 Glasses of Wine (5oz), 1 Mixed Drinks per week Comment: one drink a day Drug use: No Reviewed current medications, allergies, past medical history, surgical history, family history and social history today. REVIEW OF SYSTEMS All other reviewed and negative other than HPI. VITALS: BP 110/58 Pulse 79 Ht 177.8 cm (5' 10) Wt 93.7 kg (206 lb 9.6 oz) SpO2 95% BMI 29.64 kg/m Last 4 Encounter Wt Readings: Date: Wt: 10/10/2024 93.9 kg (207 lb) 05/02/2024 98.4 kg (217 lb) 02/11/2024 94.8 kg (209 lb) 02/10/2024 94.8 kg (209 lb) PHYSICAL EXAMINATION: General appearance: Well appearing, alert, in no acute distress, well-hydrated, well nourished. Skin: Skin color, texture, turgor normal, no suspicious rashes or lesions Head: Normocephalic, no masses, lesions, tenderness or abnormalities Lungs: Lungs clear to auscultation. No wheezing, rhonchi, rales Heart: RRR without murmur, gallop, or rubs. No ectopy Abdomen: Normal abdominal exam, Abdomen soft, non-tender. Bowel sounds normal. No masses, organomegaly Extremities: No deformities, edema, skin discoloration, clubbing or cyanosis. Good capillary refill. ASSESSMENT/PLAN: 1. Essential hypertension, benign - ICD9: 401.1, ICD10: I10 (primary diagnosis) - Controlled - Continue current medications - BASIC METABOLIC PANEL- check labs early next week after stopping lasix. - MAGNESIUM 2. Screening for depression - ICD9: V79.0, ICD10: Z13.31 - DEPRESSION SCREENING 3. Congestive heart failure, unspecified HF chronicity, unspecified heart failure type (HCC) - ICD9: 428.0, ICD10: I50.9 - improved since on lasix. Hold on it giving his group home, given his ckd. . Will not use it again unless it worsens. - weigh daily and call if goes up. - see cardiology. Has appt soon. - NT PRO BNP 4. Atrial fibrillation, unspecified type (HCC) - ICD9: 427.31, ICD10: I48.91 - rate controlled, ? Contributing to his dypsnea. 5. Stage 3a chronic kidney disease (HCC) - ICD9: 585.3, ICD10: N18.31 - stable for a decade but will follow next week to make sure ok since we gave him lasix. 6. Chronic obstructive pulmonary disease, unspecified COPD type (HCC) - ICD9: 496, ICD10: J44.9 - seeing pulmonary. ? Contributing to breathing. 7. SOB (shortness of breath) - ICD9: 786.05, ICD10: R06.02 - stable. Tien Serrano MD documented in this encounter [facility] 10-28-2024 Telephone encounter Note Cardio is scheduled November 09. He is already scheduled with us next week. Verbalizes understanding of instructions. [facility] 10-28-2024 Miscellaneous Notes Cardio is scheduled November 09. He is already scheduled with us next week. Verbalizes understanding of instructions. His bnp or chf test is up some which can cause shortness of breath. Add lasix 20 mg a day and follow up in one week. When does he see cardiology next? Check bmp when he comes in. documented in this encounter [facility] 10-28-2024 Telephone encounter Note His bnp or chf test is up some which can cause shortness of breath. Add lasix 20 mg a day and follow up in one week. When does he see cardiology next? Check bmp when he comes in. [facility] 10-20-2024 Telephone encounter Note [facility] Ambulatory Pharmacy Anticoagulation Clinic Anticoagulation Episode Summary Anticoagulation Care Providers Provider Role Specialty Phone number Tien Serrano MD Referring Family Medicine [phone] Wilmer Morley is a 83 year old year old male patient being evaluated today for a Telemanagement visit. Patient is currently on the following anticoagulant(s) Warfarin. Labs Lab Results Component Value Date INR 2.7 10/20/2024 INR 1.6 (A) 10/08/2024 INR 2.7 09/22/2024 Lab Results Component Value Date HB 13.9 11/03/2023 HB 13.9 01/30/2022 HB 13.0 10/10/2021 Lab Results Component Value Date HCT 42.3 11/03/2023 HCT 43.0 01/30/2022 HCT 40.4 10/10/2021 Lab Results Component Value Date PLT 162 11/03/2023 PLT 170 01/30/2022 PLT 173 10/10/2021 Lab Results Component Value Date CREAT 1.09 12/28/2023 CREAT 1.23 (H) 11/11/2023 CREAT 1.21 11/03/2023 No components found for: TBILI3 Lab Results Component Value Date ALT 35 11/03/2023 ALT 13 10/27/2022 ALT 19 01/30/2022 Lab Results Component Value Date AST 33 11/03/2023 AST 14 10/27/2022 AST 18 01/30/2022 CrCl cannot be calculated (Patient's most recent lab result is older than the maximum 180 days allowed.). ALLERGIES No Known Allergies 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: long term (current) use of anticoagulants History of dvt (deep vein thrombosis) Anticoagulation Episode Summary Current INR goal: 2.0-3.0 Assessment: INR result of 2.7 is therapeutic Plan: Current Warfarin Dosing As of 10/20/2024 Full warfarin instructions: 7.5 mg every Mon; 5 mg all other days Sent HowGood message Advised patient to continue current weekly dose as noted above Next home INR check scheduled on 11/03/2024 Patient advised to call the PAC with any medication changes, bleeding/bruising concerns, recent changes in vitamin k consumption, if any procedures are coming up, if they have been ill or in the hospital, and if they have missed any doses of warfarin. Jinny Shah RPh Clinical Pharmacist, Pharmacy Anticoagulation Clinic Pharmacy Anticoagulation Clinic Pager: [phone]. [facility] 10-20-2024 Miscellaneous Notes [facility] Ambulatory Pharmacy Anticoagulation Clinic Anticoagulation Episode Summary Anticoagulation Care Providers Provider Role Specialty Phone number Tien Serrano MD Referring Family Medicine [phone] Wilmer Morley is a 83 year old year old male patient being evaluated today for a Telemanagement visit. Patient is currently on the following anticoagulant(s) Warfarin. Labs Lab Results Component Value Date INR 2.7 10/20/2024 INR 1.6 (A) 10/08/2024 INR 2.7 09/22/2024 Lab Results Component Value Date HB 13.9 11/03/2023 HB 13.9 01/30/2022 HB 13.0 10/10/2021 Lab Results Component Value Date HCT 42.3 11/03/2023 HCT 43.0 01/30/2022 HCT 40.4 10/10/2021 Lab Results Component Value Date PLT 162 11/03/2023 PLT 170 01/30/2022 PLT 173 10/10/2021 Lab Results Component Value Date CREAT 1.09 12/28/2023 CREAT 1.23 (H) 11/11/2023 CREAT 1.21 11/03/2023 No components found for: TBILI3 Lab Results Component Value Date ALT 35 11/03/2023 ALT 13 10/27/2022 ALT 19 01/30/2022 Lab Results Component Value Date AST 33 11/03/2023 AST 14 10/27/2022 AST 18 01/30/2022 CrCl cannot be calculated (Patient's most recent lab result is older than the maximum 180 days allowed.). ALLERGIES No Known Allergies 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: long term (current) use of anticoagulants History of dvt (deep vein thrombosis) Anticoagulation Episode Summary Current INR goal: 2.0-3.0 Assessment: INR result of 2.7 is therapeutic Plan: Current Warfarin Dosing As of 10/20/2024 Full warfarin instructions: 7.5 mg every Mon; 5 mg all other days Sent HowGood message Advised patient to continue current weekly dose as noted above Next home INR check scheduled on 11/03/2024 Patient advised to call the PAC with any medication changes, bleeding/bruising concerns, recent changes in vitamin k consumption, if any procedures are coming up, if they have been ill or in the hospital, and if they have missed any doses of warfarin. Jinny Shah RPh Clinical Pharmacist, Pharmacy Anticoagulation Clinic Pharmacy Anticoagulation Clinic Pager: [phone]. documented in this encounter [facility] 10-11-2024 History of Present illness Narrative Radiology Service Progress Note PATIENT NAME: Wilmer Morley DATE OF SERVICE: October 11, 2024 TIME: 11:01 AM PATIENT IDENTITY VERIFICATION COMPLETED USING TWO (2) IDENTIFIERS: Name and Date of confirmed by patient verbally. FALL SCREENING: Has the patient had 2 falls in the last year or 1 fall with injury or currently using an Ambulatory Assistive Device (Walker, Cane, Wheelchair, Crutches, etc.)? No PATIENT GENDER DATA: Assigned male at PATIENT RELEVANT IMPLANT DATA REVIEWED: Not Applicable PATIENT PRESENTS WITH AN IMPLANTABLE OR ATTACHED CENTRAL OFFICE INSTALLER: No RADIOLOGY DEPARTMENT: General X-ray: Exam(s) Completed: Chest X-Ray PERIPHERAL IV DATA: Not applicable SIGNED BY: RT Duc(R) October 11, 2024 11:01 AM documented in this encounter [facility] 10-11-2024 Note HNO ID: [id number] Author: ERIN POWER RT (R) Service: Radiology Author Type: Technologist Type: Progress Notes Filed: 10/11/2024 11:08 Note Text: Radiology Service Progress Note PATIENT NAME: Wilmer Morley DATE OF SERVICE: October 11, 2024 TIME: 11:01 AM PATIENT IDENTITY VERIFICATION COMPLETED USING TWO (2) IDENTIFIERS: Name and Date of confirmed by patient verbally. FALL SCREENING: Has the patient had 2 falls in the last year or 1 fall with injury or currently using an Ambulatory Assistive Device (Walker, Cane, Wheelchair, Crutches, etc.)? No PATIENT GENDER DATA: Assigned male at PATIENT RELEVANT IMPLANT DATA REVIEWED: Not Applicable PATIENT PRESENTS WITH AN IMPLANTABLE OR ATTACHED CENTRAL OFFICE INSTALLER: No RADIOLOGY DEPARTMENT: General X-ray: Exam(s) Completed: Chest X-Ray PERIPHERAL IV DATA: Not applicable SIGNED BY: RT Duc(Verónica) October 11, 2024 11:[address] [facility] 10-10-2024 Note HNO ID: [id number] Author: TIEN SERRANO MD Service: ? Author Type: Physician Type: Progress Notes Filed: 10/10/2024 19:47 Note Text: Patient presents with: Consult: Would like to see pulm. Had testing done in Feb. Breathing has gotten worse but just got back from [facility] HPI: Patient presents today for office visit for follow up. Wintered in [place]. Had elected initially not see pulmonary. Had pfts and work up done previously. Added inhalers. Feels like they are losing their effectiveness. Can cough but did start a month ago bringing up green sputum. Before was clear. No sore throat or ear pain or fever. Remains on coumadin. Inr has been up to date. Bp is stable. Still seeing cardiology. No worsening chest pain or worsening palpitations. No edema. Can be more short of breath when lying down. Had echo done in the past for same. Cardiology did not think it was his heart. No bleeding or bruising. Has labs scheduled soon. Last chest xray was ok. Recently inr had climbed due to doxycycline from derm. Note was copied and pasted, without alteration from last ov in Nov: Slight improvement with inhaler and breathing. Offered pulmonary. He overall feels things are improving enough that he is ok. No chest pain or shortness of breath. No cough Has rare sputum. Improved balance since therapy. Has also made adjustments to how he does things. Doing exercises that was given in therapy but could do them more often. See Katy's last note, copied and pasted. : He had PFTs completed, which showed. IMPRESSION: Spirometry indicates moderate obstruction. Positive bronchodilator response. Lung volumes (FRC and/or RV) are elevated indicating hyperinflation and air trapping He was started on spiriva and albuterol. Has noticed maybe a little better. Gets winded with activity, so going to try using the inhaler before activity to see if that helps prevent the SOB with exacerbation. MEDICATIONS: Current Outpatient Medications Medication Sig flecainide (TAMBOCOR) 100 mg tablet Take 1 tablet by mouth two times a day. atorvastatin (LIPITOR) 20 mg tablet Take 1 tablet by mouth once daily. warfarin (COUMADIN) 5 mg tablet 7.5 mg every Mon, Fri; 5 mg all other days (Patient taking differently: 7.5 mg every Mon; 5 mg all other days) sertraline (ZOLOFT) 100 mg tablet Take 1 tablet by mouth once daily. tiotropium (SPIRIVA WITH HANDIHALER) 18 mcg inhalation capsule Inhale 1 capsule as instructed once daily. Use with handihaler. albuterol HFA (VENTOLIN HFA) 90 mcg/actuation inhaler Inhale 2 Puffs as instructed every 4 hours as needed for wheezing/shortness of breath. lisinopril (ZESTRIL) 10 mg tablet Take 1 tablet by mouth once daily. loperamide HCl (IMODIUM) 2 mg tab Take 1 tablet by mouth as needed. doxazosin (CARDURA) 1 mg tablet Take 1 tablet by mouth daily at bedtime. amLODIPine (NORVASC) 5 mg tablet Take 5 mg by mouth once daily. No current facility-administered medications for this visit. 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 Benign neoplasm of colon CKD (chronic kidney disease), stage III (HCC) 04/08/2018 Diverticulosis of colon (without mention of hemorrhage) Essential hypertension, benign 02/27/2010 Facial basal cell cancer 2009 Internal hemorrhoids without mention of complication Other acute embolism veins Other and unspecified hyperlipidemia hypertriglyeridemia Personal history of colonic polyps PAST SURGICAL HISTORY Procedure Laterality Date CATARACT EXTRACTION HX Left CATARACT SURGERY, COMPLEX 2009 R eye COLONOSCOPY FLX DX W/COLLJ SPEC WHEN PFRMD 08/05/2000 Colonoscopy COLONOSCOPY FLX DX W/COLLJ SPEC WHEN PFRMD 11/02/2002 Colonoscopy COLONOSCOPY FLX DX W/COLLJ SPEC WHEN PFRMD 01/29/2009 COLONOSCOPY FLX DX W/COLLJ SPEC WHEN PFRMD 02/24/2014 Colonoscopy COLONOSCOPY FLX DX W/COLLJ SPEC WHEN PFRMD 03/09/2018 [facility] Garcia-repeat 10 years ESOPHAGOGASTRODUODENOSCOPY TRANSORAL DIAGNOSTIC N/A 08/16/2020 [facility] H[facility] OF 2010 basal cell to right above upper lip FAMILY HISTORY Problem Relation Age of Onset Heart Father CHF Heart Mother CHF Heart Brother [place] - rheumatic fever Cancer Brother gastric Asthma Sister Social History Tobacco Use Smoking status: Former Current packs/day: 0.00 Types: Cigarettes Start date: 02/24/2010 Quit date: 02/24/2011 Years since quittin.6 Smokeless tobacco: Never Substance Use Topics Alcohol use: Yes Alcohol/week: 2.3 standard drinks of alcohol Types: 1 Glasses of Wine (5oz), 1 Mixed Drinks per week Comment: one drink a day Drug use: No Reviewed current medications, allergies, past medical history, surgical history, family history and social history today. REVIEW OF SYSTEMS All other reviewed and negative (more content not included)... [facility] 10-10-2024 History of Present illness Narrative Patient presents with: Consult: Would like to see pulm. Had testing done in Feb. Breathing has gotten worse but just got back from [facility] HPI: Patient presents today for office visit for follow up. Wintered in [place]. Had elected initially not see pulmonary. Had pfts and work up done previously. Added inhalers. Feels like they are losing their effectiveness. Can cough but did start a month ago bringing up green sputum. Before was clear. No sore throat or ear pain or fever. Remains on coumadin. Inr has been up to date. Bp is stable. Still seeing cardiology. No worsening chest pain or worsening palpitations. No edema. Can be more short of breath when lying down. Had echo done in the past for same. Cardiology did not think it was his heart. No bleeding or bruising. Has labs scheduled soon. Last chest xray was ok. Recently inr had climbed due to doxycycline from derm. Note was copied and pasted, without alteration from last ov in Nov: Slight improvement with inhaler and breathing. Offered pulmonary. He overall feels things are improving enough that he is ok. No chest pain or shortness of breath. No cough Has rare sputum. Improved balance since therapy. Has also made adjustments to how he does things. Doing exercises that was given in therapy but could do them more often. See Katy's last note, copied and pasted. : He had PFTs completed, which showed. IMPRESSION: Spirometry indicates moderate obstruction. Positive bronchodilator response. Lung volumes (FRC and/or RV) are elevated indicating hyperinflation and air trapping He was started on spiriva and albuterol. Has noticed maybe a little better. Gets winded with activity, so going to try using the inhaler before activity to see if that helps prevent the SOB with exacerbation. MEDICATIONS: Current Outpatient Medications Medication Sig flecainide (TAMBOCOR) 100 mg tablet Take 1 tablet by mouth two times a day. atorvastatin (LIPITOR) 20 mg tablet Take 1 tablet by mouth once daily. warfarin (COUMADIN) 5 mg tablet 7.5 mg every Mon, Fri; 5 mg all other days (Patient taking differently: 7.5 mg every Mon; 5 mg all other days) sertraline (ZOLOFT) 100 mg tablet Take 1 tablet by mouth once daily. tiotropium (SPIRIVA WITH HANDIHALER) 18 mcg inhalation capsule Inhale 1 capsule as instructed once daily. Use with handihaler. albuterol HFA (VENTOLIN HFA) 90 mcg/actuation inhaler Inhale 2 Puffs as instructed every 4 hours as needed for wheezing/shortness of breath. lisinopril (ZESTRIL) 10 mg tablet Take 1 tablet by mouth once daily. loperamide HCl (IMODIUM) 2 mg tab Take 1 tablet by mouth as needed. doxazosin (CARDURA) 1 mg tablet Take 1 tablet by mouth daily at bedtime. amLODIPine (NORVASC) 5 mg tablet Take 5 mg by mouth once daily. No current facility-administered medications for this visit. 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 Benign neoplasm of colon CKD (chronic kidney disease), stage III (HCC) 04/08/2018 Diverticulosis of colon (without mention of hemorrhage) Essential hypertension, benign 02/27/2010 Facial basal cell cancer 2009 Internal hemorrhoids without mention of complication Other acute embolism veins Other and unspecified hyperlipidemia hypertriglyeridemia Personal history of colonic polyps PAST SURGICAL HISTORY Procedure Laterality Date CATARACT EXTRACTION HX Left CATARACT SURGERY, COMPLEX 2009 R eye COLONOSCOPY FLX DX W/COLLJ SPEC WHEN PFRMD 08/05/2000 Colonoscopy COLONOSCOPY FLX DX W/COLLJ SPEC WHEN PFRMD 11/02/2002 Colonoscopy COLONOSCOPY FLX DX W/COLLJ SPEC WHEN PFRMD 01/29/2009 COLONOSCOPY FLX DX W/COLLJ SPEC WHEN PFRMD 02/24/2014 Colonoscopy COLONOSCOPY FLX DX W/COLLJ SPEC WHEN PFRMD 03/09/2018 [facility] ESOPHAGOGASTRODUODENOSCOPY TRANSORAL DIAGNOSTIC N/A 08/16/2020 [facility] PAST SURGICAL HISTORY OF 2010 basal cell to right above upper lip FAMILY HISTORY Problem Relation Age of Onset Heart Father CHF Heart Mother CHF Heart Brother [place] - rheumatic fever Cancer Brother gastric Asthma Sister Social History Tobacco Use Smoking status: Former Current packs/day: 0.00 Types: Cigarettes Start date: 02/24/2010 Quit date: 02/24/2011 Years since quittin.6 Smokeless tobacco: Never Substance Use Topics Alcohol use: Yes Alcohol/week: 2.3 standard drinks of alcohol Types: 1 Glasses of Wine (5oz), 1 Mixed Drinks per week Comment: one drink a day Drug use: No Reviewed current medications, allergies, past medical history, surgical history, family history and social history today. REVIEW OF SYSTEMS All other reviewed and negative other than HPI. VITALS: BP 138/68 Pulse 60 Wt 93.9 kg (207 lb) SpO2 95% BMI 29.70 kg/m Last 4 Encounter Wt Readings: Date: Wt: 10/10/2024 93.9 kg (207 lb) 05/02/2024 98.4 kg (217 lb) 02/11/2024 94.8 kg (209 lb) 02/10/2024 94.8 kg (209 lb) PHYSICAL EXAMINATION: General appearance: Well appearing, alert, in no acute distress, well-hydrated, well nourished. Skin: Skin color, texture, turgor normal, no suspicious rashes or lesions Head: Normocephalic, no masses, lesions, tenderness or abnormalities Lungs: bilateral rhonchi. Moving air well. Heart: Heart sounds distant Abdomen: Normal abdominal exam, Abdomen soft, non-tender. Bowel sounds normal. No masses, organomegaly Extremities: No deformities, edema, skin discoloration, clubbing or cyanosis. Good capillary refill. ASSESSMENT/PLAN: 1. COPD with exacerbation (HCC) - ICD9: 491.21, ICD10: J44.1 (primary diagnosis) - Discussed risks and benefits of new medication with the patient. Advised them to call if any side effects or questions. Red flags for re-assessment reviewed with patient in detail. Call if symptoms worsen at all or if not better in one to two weeks Reviewed diagnosis and treatment options in detail. Questions were answered. Patient expressed understanding of treatment plan. Keep next follow up. - PREDNISONE 20 MG TABLET - CEFUROXIME AXETIL 250 MG TABLET - XR CHEST 2V FRONTAL/LAT 2. Atrial fibrillation, unspecified type (HCC) - ICD9: 427.31, ICD10: I48.91 - stable. Sees Dr Head. 3. Essential hypertension, benign - ICD9: 401.1, ICD10: I10 - Controlled 4. Moderate mitral regurgitation - ICD9: 424.0, ICD10: I34.0 - stable. 5. Moderate tricuspid regurgitation - ICD9: 397.0, ICD10: I07.1 - stable. 6. Chronic obstructive pulmonary disease, unspecified COPD type (HCC) - ICD9: 496, ICD10: J44.9 - CONSULT TO PULMONARY MEDICINE 7. Stage 3a chronic kidney disease (HCC) - ICD9: 585.3, ICD10: N18.31 - get labs. 8. Hyperglycemia - ICD9: 790.29, ICD10: R73.9 - stable . 9. long term (current) use of anticoagulants - ICD9: V58.61, ICD10: Z79.01 - up to date on testing. Test inr at the end of the week. 10. History of DVT (deep vein thrombosis) - ICD9: V12.51, ICD10: Z86.718 - up to date on testing. 11. USP 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 - ICD9: V58.69, ICD10: Z79.899 - stable. 12. SOB (shortness of breath) - ICD9: 786.05, ICD10: R06.02 - Discussed risks and benefits of new medication with the patient. Advised them to call if any side effects or questions. Red flags for re-assessment reviewed with patient in detail. Call if symptoms worsen at all or if not better in one to two weeks Reviewed diagnosis and treatment options in detail. Questions were answered. Patient expressed understanding of treatment plan. - NT PRO BNP - CONSULT TO PULMONARY MEDICINE - XR CHEST 2V FRONTAL/LAT Tien Serrano MD documented in this encounter [facility] 10-10-2024 Telephone encounter Note [facility] Ambulatory Pharmacy Anticoagulation Clinic Anticoagulation Episode Summary Anticoagulation Care Providers Provider Role Specialty Phone number Tien Serrano MD Referring Family [facility] [phone] Wilmer Morley is a 83 year old year old male patient being evaluated today for a Telemanagement visit. Patient is currently on the following anticoagulant(s) Warfarin. Labs PT INR (no units) Date Value 09/16/2021 2.9 09/02/2021 3.2 06/06/2021 2.5 biotel INR Home CoaguChek (no units) Date Value 10/08/2024 1.6 09/22/2024 2.7 09/06/2024 2.4 CrCl cannot be calculated (Patient's most recent lab result is older than the maximum 180 days allowed.). ALLERGIES No Known Allergies 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: Anticoagulation Episode Summary Current INR goal: 2.0-3.0 Assessment: INR result of 1.6 is SUBtherapeutic due to: No obvious cause (patient denies liver, green tea, new herbal/nutritional supplements - such as Boost, Ensure, an increase in vit K foods and/or V8 type juices, any changes in warfarin tablet, or missed doses) Plan: Current Warfarin Dosing As of 10/10/2024 Full warfarin instructions: 7.5 mg every Mon; 5 mg all other days Called and spoke to patient/caregiver Advised patient to continue current weekly dose as noted above (already increased his dose on Thursday) Next INR check due on 10/24/2024 Patient verbalizes understanding of the plan. Namita Gee RPh Clinical Pharmacist, Pharmacy Anticoagulation Clinic Pharmacy Anticoagulation Clinic Pager: [phone]. [facility] 10-10-2024 Miscellaneous Notes [facility] Ambulatory Pharmacy Anticoagulation Clinic Anticoagulation Episode Summary Anticoagulation Care Providers Provider Role Specialty Phone number Tien Serrano MD Referring Family Medicine [phone] Wilmer Morley is a 83 year old year old male patient being evaluated today for a Telemanagement visit. Patient is currently on the following anticoagulant(s) Warfarin. Labs PT INR (no units) Date Value 09/16/2021 2.9 09/02/2021 3.2 06/06/2021 2.5 biotel INR Home CoaguChek (no units) Date Value 10/08/2024 1.6 09/22/2024 2.7 09/06/2024 2.4 CrCl cannot be calculated (Patient's most recent lab result is older than the maximum 180 days allowed.). ALLERGIES No Known Allergies 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: Anticoagulation Episode Summary Current INR goal: 2.0-3.0 Assessment: INR result of 1.6 is SUBtherapeutic due to: No obvious cause (patient denies liver, green tea, new herbal/nutritional supplements - such as Boost, Ensure, an increase in vit K foods and/or V8 type juices, any changes in warfarin tablet, or missed doses) Plan: Current Warfarin Dosing As of 10/10/2024 Full warfarin instructions: 7.5 mg every Thu; 5 mg all other days Called and spoke to patient/caregiver Advised patient to continue current weekly dose as noted above (already increased his dose on Thursday) Next INR check due on 10/24/2024 Patient verbalizes understanding of the plan. Namita Gee RPh Clinical Pharmacist, Pharmacy Anticoagulation Clinic Pharmacy Anticoagulation Clinic Pager: [phone]. Summer from [employer] calling to report the patient's INR result 10/08. PT INR (no units) Date Value 09/16/2021 2.9 09/02/2021 3.2 06/06/2021 2.5 biotel INR Home CoaguChek (no units) Date Value 10/08/2024 1.6 09/22/2024 2.7 09/06/2024 2.4 Ivania Villalobos RN Pharmacy Anticoagulation Clinic documented in this encounter [facility] 10-10-2024 Telephone encounter Note Summer from [employer] calling to report the patient's INR result 10/08. PT INR (no units) Date Value 09/16/2021 2.9 09/02/2021 3.2 06/06/2021 2.5 biotel INR Home CoaguChek (no units) Date Value 10/08/2024 1.6 09/22/2024 2.7 09/06/2024 2.4 Ivania Villalobos RN Pharmacy Anticoagulation Clinic [facility] 10-04-2024 Telephone encounter Note Patient MyChart message requesting the following refill Refill(s) Requested: Requested Prescriptions Pending Prescriptions Disp Refills flecainide (TAMBOCOR) 100 mg tablet 180 tablet 3 Sig: Take 1 tablet by mouth two times a day. ALLERGIES No Known Allergies (home) [phone] (cell) Last Office Visit Date: 05/02/2024 Last Distance Health Visit: Visit date not found Future Appointment: 10/10/2024 The patients preferred pharmacy has been captured for this encounter? yes Request is for script(s) to be escript to pharmacy. Heidy Benavides LPN [facility] 10-04-2024 Miscellaneous Notes Patient Ciashophart message requesting the following refill Refill(s) Requested: Requested Prescriptions Pending Prescriptions Disp Refills flecainide (TAMBOCOR) 100 mg tablet 180 tablet 3 Sig: Take 1 tablet by mouth two times a day. ALLERGIES No Known Allergies (home) [phone] (cell) Last Office Visit Date: 05/02/2024 Last Distance Health Visit: Visit date not found Future Appointment: 10/10/2024 The patients preferred pharmacy has been captured for this encounter? yes Request is for script(s) to be escript to pharmacy. Heidy Benavides LPN documented in this encounter [facility] 09-22-2024 Telephone encounter Note [facility] Ambulatory Pharmacy Anticoagulation Clinic Anticoagulation Episode Summary Anticoagulation Care Providers Provider Role Specialty Phone number Tien Serrano MD Referring Family Medicine [phone] Wilmer Morley is a 83 year old year old male patient being evaluated today for a Telemanagement visit. Patient is currently on the following anticoagulant(s) Warfarin. Labs PT INR (no units) Date Value 09/16/2021 2.9 09/02/2021 3.2 06/06/2021 2.5 biotel INR Home CoaguChek (no units) Date Value 09/22/2024 2.7 09/06/2024 2.4 08/16/2024 2.0 Hemoglobin (g/dL) Date Value 11/03/2023 13.9 03/14/2021 14.8 Hematocrit (%) Date Value 11/03/2023 42.3 03/14/2021 44.9 Platelet Count (k/uL) Date Value 11/03/2023 162 03/14/2021 191 Creatinine (mg/dL) Date Value 12/28/2023 1.09 11/11/2023 1.23 11/03/2023 1.21 03/14/2021 1.34 09/06/2020 1.27 08/06/2020 1.43 Bilirubin, Total (mg/dL) Date Value 11/03/2023 0.6 03/14/2021 1.1 ALT (U/L) Date Value 11/03/2023 35 03/14/2021 32 AST (U/L) Date Value 11/03/2023 33 03/14/2021 30 CrCl cannot be calculated (Patient's most recent lab result is older than the maximum 180 days allowed.). ALLERGIES No Known Allergies 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: long term (current) use of anticoagulants History of dvt (deep vein thrombosis) Anticoagulation Episode Summary Current INR goal: 2.0-3.0 Assessment: INR result of 2.7 is therapeutic Plan: Current Warfarin Dosing As of 09/22/2024 Full warfarin instructions: 7.5 mg every Mon; 5 mg all other days Sent How[employer] message Advised patient to continue current weekly dose as noted above Next home INR check scheduled on 10/06/2024 Patient advised to call the PAC with any medication changes, bleeding/bruising concerns, recent changes in vitamin k consumption, if any procedures are coming up, if they have been ill or in the hospital, and if they have missed any doses of warfarin. Jinny Shah RPh Clinical Pharmacist, Pharmacy Anticoagulation Clinic Pharmacy Anticoagulation Clinic Pager: [phone]. [facility] 09-22-2024 Miscellaneous Notes [facility] Ambulatory Pharmacy Anticoagulation Clinic Anticoagulation Episode Summary Anticoagulation Care Providers Provider Role Specialty Phone number Tien Serrano MD Referring Family Medicine [phone] Wilmer Morley is a 83 year old year old male patient being evaluated today for a Telemanagement visit. Patient is currently on the following anticoagulant(s) Warfarin. Labs PT INR (no units) Date Value 09/16/2021 2.9 09/02/2021 3.2 06/06/2021 2.5 biotel INR Home CoaguChek (no units) Date Value 09/22/2024 2.7 09/06/2024 2.4 08/16/2024 2.0 Hemoglobin (g/dL) Date Value 11/03/2023 13.9 03/14/2021 14.8 Hematocrit (%) Date Value 11/03/2023 42.3 03/14/2021 44.9 Platelet Count (k/uL) Date Value 11/03/2023 162 03/14/2021 191 Creatinine (mg/dL) Date Value 12/28/2023 1.09 11/11/2023 1.23 11/03/2023 1.21 03/14/2021 1.34 09/06/2020 1.27 08/06/2020 1.43 Bilirubin, Total (mg/dL) Date Value 11/03/2023 0.6 03/14/2021 1.1 ALT (U/L) Date Value 11/03/2023 35 03/14/2021 32 AST (U/L) Date Value 11/03/2023 33 03/14/2021 30 CrCl cannot be calculated (Patient's most recent lab result is older than the maximum 180 days allowed.). ALLERGIES No Known Allergies 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: long term (current) use of anticoagulants History of dvt (deep vein thrombosis) Anticoagulation Episode Summary Current INR goal: 2.0-3.0 Assessment: INR result of 2.7 is therapeutic Plan: Current Warfarin Dosing As of 09/22/2024 Full warfarin instructions: 7.5 mg every Mon; 5 mg all other days Sent HowGood message Advised patient to continue current weekly dose as noted above Next home INR check scheduled on 10/06/2024 Patient advised to call the PAC with any medication changes, bleeding/bruising concerns, recent changes in vitamin k consumption, if any procedures are coming up, if they have been ill or in the hospital, and if they have missed any doses of warfarin. Jinny Shah RPh Clinical Pharmacist, Pharmacy Anticoagulation Clinic Pharmacy Anticoagulation Clinic Pager: [phone]. documented in this encounter [facility] 09-06-2024 Miscellaneous Notes [facility] Ambulatory Pharmacy Anticoagulation Clinic Anticoagulation Episode Summary Anticoagulation Care Providers Provider Role Specialty Phone number Tien Serrano MD Referring Family Medicine [phone] Wilmer Morley is a 83 year old year old male patient being evaluated today for a Telemanagement visit. Patient is currently on the following anticoagulant(s) Warfarin. Labs PT INR (no units) Date Value 09/16/2021 2.9 09/02/2021 3.2 06/06/2021 2.5 biotel INR Home CoaguChek (no units) Date Value 09/06/2024 2.4 08/16/2024 2.0 08/02/2024 2.0 Hemoglobin (g/dL) Date Value 11/03/2023 13.9 03/14/2021 14.8 Hematocrit (%) Date Value 11/03/2023 42.3 03/14/2021 44.9 Platelet Count (k/uL) Date Value 11/03/2023 162 03/14/2021 191 Creatinine (mg/dL) Date Value 12/28/2023 1.09 11/11/2023 1.23 11/03/2023 1.21 03/14/2021 1.34 09/06/2020 1.27 08/06/2020 1.43 Bilirubin, Total (mg/dL) Date Value 11/03/2023 0.6 03/14/2021 1.1 ALT (U/L) Date Value 11/03/2023 35 03/14/2021 32 AST (U/L) Date Value 11/03/2023 33 03/14/2021 30 CrCl cannot be calculated (Patient's most recent lab result is older than the maximum 180 days allowed.). ALLERGIES No Known Allergies 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: Anticoagulation Episode Summary Current INR goal: 2.0-3.0 Assessment: INR result of 2.4 is therapeutic Plan: Current Warfarin Dosing As of 09/06/2024 Full warfarin instructions: 7.5 mg every Mon; 5 mg all other days Sent HowGood message Advised patient to continue current weekly dose as noted above Next home INR check scheduled on 09/20/2024 Patient advised to call the PAC with any medication changes, bleeding/bruising concerns, recent changes in vitamin k consumption, if any procedures are coming up, if they have been ill or in the hospital, and if they have missed any doses of warfarin. Arabella Lopez RPh Clinical Pharmacist, Pharmacy Anticoagulation Clinic Pharmacy Anticoagulation Clinic Pager: [phone]. documented in this encounter [facility] 09-06-2024 Telephone encounter Note [facility] Ambulatory Pharmacy Anticoagulation Clinic Anticoagulation Episode Summary Anticoagulation Care Providers Provider Role Specialty Phone number Tien Serrano MD Referring Family Medicine [phone] Wilmer Morley is a 83 year old year old male patient being evaluated today for a Telemanagement visit. Patient is currently on the following anticoagulant(s) Warfarin. Labs PT INR (no units) Date Value 09/16/2021 2.9 09/02/2021 3.2 06/06/2021 2.5 biotel INR Home CoaguChek (no units) Date Value 09/06/2024 2.4 08/16/2024 2.0 08/02/2024 2.0 Hemoglobin (g/dL) Date Value 11/03/2023 13.9 03/14/2021 14.8 Hematocrit (%) Date Value 11/03/2023 42.3 03/14/2021 44.9 Platelet Count (k/uL) Date Value 11/03/2023 162 03/14/2021 191 Creatinine (mg/dL) Date Value 12/28/2023 1.09 11/11/2023 1.23 11/03/2023 1.21 03/14/2021 1.34 09/06/2020 1.27 08/06/2020 1.43 Bilirubin, Total (mg/dL) Date Value 11/03/2023 0.6 03/14/2021 1.1 ALT (U/L) Date Value 11/03/2023 35 03/14/2021 32 AST (U/L) Date Value 11/03/2023 33 03/14/2021 30 CrCl cannot be calculated (Patient's most recent lab result is older than the maximum 180 days allowed.). ALLERGIES No Known Allergies 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: Anticoagulation Episode Summary Current INR goal: 2.0-3.0 Assessment: INR result of 2.4 is therapeutic Plan: Current Warfarin Dosing As of 09/06/2024 Full warfarin instructions: 7.5 mg every Mon; 5 mg all other days Sent HowGood message Advised patient to continue current weekly dose as noted above Next home INR check scheduled on 09/20/2024 Patient advised to call the PAC with any medication changes, bleeding/bruising concerns, recent changes in vitamin k consumption, if any procedures are coming up, if they have been ill or in the hospital, and if they have missed any doses of warfarin. Arabella Lopez RPh Clinical Pharmacist, Pharmacy Anticoagulation Clinic Pharmacy Anticoagulation Clinic Pager: [phone]. [facility] 08-19-2024 Telephone encounter Note Prescription Refill Information The patient has been identified by name and date of : Yes Caregiver verified no other encounters exist for this prescription request: Yes Caregiver confirmed with patient/requestor that no other refills are due, in the near future, with this provider at this time: Yes The last office visit in the department: 05/02/2024 Does the patient have a future office visit with this provider/department: Yes Requested Prescriptions Pending Prescriptions Disp Refills atorvastatin (LIPITOR) 20 mg tablet 90 tablet 1 Sig: Take 1 tablet by mouth once daily. Alejandrina Rebollar LPN August 19, 2024 10:[address] [facility] 08-19-2024 Miscellaneous Notes Prescription Refill Information The patient has been identified by name and date of : Yes Caregiver verified no other encounters exist for this prescription request: Yes Caregiver confirmed with patient/requestor that no other refills are due, in the near future, with this provider at this time: Yes The last office visit in the department: 05/02/2024 Does the patient have a future office visit with this provider/department: Yes Requested Prescriptions Pending Prescriptions Disp Refills atorvastatin (LIPITOR) 20 mg tablet 90 tablet 1 Sig: Take 1 tablet by mouth once daily. Alejandrina Rebollar LPN August 19, 2024 10:12 AM documented in this encounter [facility] 08-17-2024 Telephone encounter Note [facility] Ambulatory Pharmacy Anticoagulation Clinic Anticoagulation Episode Summary Anticoagulation Care Providers Provider Role Specialty Phone number Tien Serrano MD Referring Family Medicine [phone] Wilmer Morley is a 83 year old year old male patient being evaluated today for a Telemanagement visit. Patient is currently on the following anticoagulant(s) Warfarin. Labs PT INR (no units) Date Value 09/16/2021 2.9 09/02/2021 3.2 06/06/2021 2.5 biotel INR Home CoaguChek (no units) Date Value 08/16/2024 2.0 08/02/2024 2.0 07/15/2024 3.1 Hemoglobin (g/dL) Date Value 11/03/2023 13.9 03/14/2021 14.8 Hematocrit (%) Date Value 11/03/2023 42.3 03/14/2021 44.9 Platelet Count (k/uL) Date Value 11/03/2023 162 03/14/2021 191 Creatinine (mg/dL) Date Value 12/28/2023 1.09 11/11/2023 1.23 11/03/2023 1.21 03/14/2021 1.34 09/06/2020 1.27 08/06/2020 1.43 Bilirubin, Total (mg/dL) Date Value 11/03/2023 0.6 03/14/2021 1.1 ALT (U/L) Date Value 11/03/2023 35 03/14/2021 32 AST (U/L) Date Value 11/03/2023 33 03/14/2021 30 CrCl cannot be calculated (Patient's most recent lab result is older than the maximum 180 days allowed.). ALLERGIES No Known Allergies 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: long term (current) use of anticoagulants Atrial fibrillation, unspecified type (hcc) History of dvt (deep vein thrombosis) Anticoagulation Episode Summary Current INR goal: 2.0-3.0 Assessment: INR result of 2.0 is therapeutic Plan: Current Warfarin Dosing As of 08/17/2024 Full warfarin instructions: 7.5 mg every Mon; 5 mg all other days Sent HowGood message Advised patient to continue current weekly dose as noted above Next home INR check scheduled on 08/31/2024 Patient advised to call the PAC with any medication changes, bleeding/bruising concerns, recent changes in vitamin k consumption, if any procedures are coming up, if they have been ill or in the hospital, and if they have missed any doses of warfarin. Ghazal Bailey RPh Clinical Pharmacist, Pharmacy Anticoagulation Clinic Pharmacy Anticoagulation Clinic Pager: [phone]. [facility] 08-17-2024 Miscellaneous Notes [facility] Ambulatory Pharmacy Anticoagulation Clinic Anticoagulation Episode Summary Anticoagulation Care Providers Provider Role Specialty Phone number Tien Serrano MD Referring Family Medicine [phone] Wilmer Morley is a 83 year old year old male patient being evaluated today for a Telemanagement visit. Patient is currently on the following anticoagulant(s) Warfarin. Labs PT INR (no units) Date Value 09/16/2021 2.9 09/02/2021 3.2 06/06/2021 2.5 biotel INR Home CoaguChek (no units) Date Value 08/16/2024 2.0 08/02/2024 2.0 07/15/2024 3.1 Hemoglobin (g/dL) Date Value 11/03/2023 13.9 03/14/2021 14.8 Hematocrit (%) Date Value 11/03/2023 42.3 03/14/2021 44.9 Platelet Count (k/uL) Date Value 11/03/2023 162 03/14/2021 191 Creatinine (mg/dL) Date Value 12/28/2023 1.09 11/11/2023 1.23 11/03/2023 1.21 03/14/2021 1.34 09/06/2020 1.27 08/06/2020 1.43 Bilirubin, Total (mg/dL) Date Value 11/03/2023 0.6 03/14/2021 1.1 ALT (U/L) Date Value 11/03/2023 35 03/14/2021 32 AST (U/L) Date Value 11/03/2023 33 03/14/2021 30 CrCl cannot be calculated (Patient's most recent lab result is older than the maximum 180 days allowed.). ALLERGIES No Known Allergies 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: USP (current) use of anticoagulants Atrial fibrillation, unspecified type (hcc) History of dvt (deep vein thrombosis) Anticoagulation Episode Summary Current INR goal: 2.0-3.0 Assessment: INR result of 2.0 is therapeutic Plan: Current Warfarin Dosing As of 08/17/2024 Full warfarin instructions: 7.5 mg every Mon; 5 mg all other days Sent HowGood message Advised patient to continue current weekly dose as noted above Next home INR check scheduled on 08/31/2024 Patient advised to call the PAC with any medication changes, bleeding/bruising concerns, recent changes in vitamin k consumption, if any procedures are coming up, if they have been ill or in the hospital, and if they have missed any doses of warfarin. Ghazal Bailey RPh Clinical Pharmacist, Pharmacy Anticoagulation Clinic Pharmacy Anticoagulation Clinic Pager: [phone]. documented in this encounter [facility] 08-02-2024 Telephone encounter Note [facility] Ambulatory Pharmacy Anticoagulation Clinic Anticoagulation Episode Summary Anticoagulation Care Providers Provider Role Specialty Phone number Tien Serrano MD Referring Family Medicine [phone] Wilmer Morley is a 83 year old year old male patient being evaluated today for a Telemanagement visit. Patient is currently on the following anticoagulant(s) Warfarin. Labs PT INR (no units) Date Value 09/16/2021 2.9 09/02/2021 3.2 06/06/2021 2.5 biotel INR Home CoaguChek (no units) Date Value 08/02/2024 2.0 07/15/2024 3.1 06/29/2024 3.9 Hemoglobin (g/dL) Date Value 11/03/2023 13.9 03/14/2021 14.8 Hematocrit (%) Date Value 11/03/2023 42.3 03/14/2021 44.9 Platelet Count (k/uL) Date Value 11/03/2023 162 03/14/2021 191 Creatinine (mg/dL) Date Value 12/28/2023 1.09 11/11/2023 1.23 11/03/2023 1.21 03/14/2021 1.34 09/06/2020 1.27 08/06/2020 1.43 Bilirubin, Total (mg/dL) Date Value 11/03/2023 0.6 03/14/2021 1.1 ALT (U/L) Date Value 11/03/2023 35 03/14/2021 32 AST (U/L) Date Value 11/03/2023 33 03/14/2021 30 CrCl cannot be calculated (Patient's most recent lab result is older than the maximum 180 days allowed.). ALLERGIES No Known Allergies 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: Anticoagulation Episode Summary Current INR goal: 2.0-3.0 Assessment: INR result of 2.0 is therapeutic Plan: Current Warfarin Dosing As of 08/02/2024 Full warfarin instructions: 7.5 mg every Mon; 5 mg all other days Sent HowGood message Advised patient to continue current weekly dose as noted above Next home INR check scheduled on 08/16/2024 Patient advised to call the PAC with any medication changes, bleeding/bruising concerns, recent changes in vitamin k consumption, if any procedures are coming up, if they have been ill or in the hospital, and if they have missed any doses of warfarin. Arabella Lopez RPh Clinical Pharmacist, Pharmacy Anticoagulation Clinic Pharmacy Anticoagulation Clinic Pager: [phone]. [facility] 08-02-2024 Miscellaneous Notes [facility] Ambulatory Pharmacy Anticoagulation Clinic Anticoagulation Episode Summary Anticoagulation Care Providers Provider Role Specialty Phone number Tien Serrano MD Referring Family Medicine [phone] Wilmer Morley is a 83 year old year old male patient being evaluated today for a Telemanagement visit. Patient is currently on the following anticoagulant(s) Warfarin. Labs PT INR (no units) Date Value 09/16/2021 2.9 09/02/2021 3.2 06/06/2021 2.5 biotel INR Home CoaguChek (no units) Date Value 08/02/2024 2.0 07/15/2024 3.1 06/29/2024 3.9 Hemoglobin (g/dL) Date Value 11/03/2023 13.9 03/14/2021 14.8 Hematocrit (%) Date Value 11/03/2023 42.3 03/14/2021 44.9 Platelet Count (k/uL) Date Value 11/03/2023 162 03/14/2021 191 Creatinine (mg/dL) Date Value 12/28/2023 1.09 11/11/2023 1.23 11/03/2023 1.21 03/14/2021 1.34 09/06/2020 1.27 08/06/2020 1.43 Bilirubin, Total (mg/dL) Date Value 11/03/2023 0.6 03/14/2021 1.1 ALT (U/L) Date Value 11/03/2023 35 03/14/2021 32 AST (U/L) Date Value 11/03/2023 33 03/14/2021 30 CrCl cannot be calculated (Patient's most recent lab result is older than the maximum 180 days allowed.). ALLERGIES No Known Allergies 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: Anticoagulation Episode Summary Current INR goal: 2.0-3.0 Assessment: INR result of 2.0 is therapeutic Plan: Current Warfarin Dosing As of 08/02/2024 Full warfarin instructions: 7.5 mg every Mon; 5 mg all other days Sent HowGood message Advised patient to continue current weekly dose as noted above Next home INR check scheduled on 08/16/2024 Patient advised to call the PAC with any medication changes, bleeding/bruising concerns, recent changes in vitamin k consumption, if any procedures are coming up, if they have been ill or in the hospital, and if they have missed any doses of warfarin. Arabella Lopez RPh Clinical Pharmacist, Pharmacy Anticoagulation Clinic Pharmacy Anticoagulation Clinic Pager: [phone]. documented in this encounter [facility] 07-15-2024 Telephone encounter Note [facility] Ambulatory Pharmacy Anticoagulation Clinic Anticoagulation Episode Summary Anticoagulation Care Providers Provider Role Specialty Phone number Tien Serrano MD Referring Family Medicine [phone] Wilmer Morley is a 83 year old year old male patient being evaluated today for a Telemanagement visit. Patient is currently on the following anticoagulant(s) Warfarin. Labs PT INR (no units) Date Value 09/16/2021 2.9 09/02/2021 3.2 06/06/2021 2.5 biotel INR Home CoaguChek (no units) Date Value 07/15/2024 3.1 06/29/2024 3.9 06/14/2024 3.2 Hemoglobin (g/dL) Date Value 11/03/2023 13.9 03/14/2021 14.8 Hematocrit (%) Date Value 11/03/2023 42.3 03/14/2021 44.9 Platelet Count (k/uL) Date Value 11/03/2023 162 03/14/2021 191 Creatinine (mg/dL) Date Value 12/28/2023 1.09 11/11/2023 1.23 11/03/2023 1.21 03/14/2021 1.34 09/06/2020 1.27 08/06/2020 1.43 Bilirubin, Total (mg/dL) Date Value 11/03/2023 0.6 03/14/2021 1.1 ALT (U/L) Date Value 11/03/2023 35 03/14/2021 32 AST (U/L) Date Value 11/03/2023 33 03/14/2021 30 CrCl cannot be calculated (Patient's most recent lab result is older than the maximum 180 days allowed.). ALLERGIES No Known Allergies 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: Anticoagulation Episode Summary Current INR goal: 2.0-3.0 Assessment: INR result of 3.1 is SUPRAtherapeutic due to: Patient taking incorrect warfarin dose or extra dose(s) Took 7.5 mg last Thursday Plan: Current Warfarin Dosing As of 07/15/2024 Full warfarin instructions: 7.5 mg every Thu; 5 mg all other days Called and spoke to patient/caregiver Advised patient to continue current weekly dose as noted above Next home INR check scheduled on 07/27/2024 Patient verbalizes understanding of the plan. Patient advised to call the PAC with any medication changes, bleeding/bruising concerns, recent changes in vitamin k consumption, if any procedures are coming up, if they have been ill or in the hospital, and if they have missed any doses of warfarin. Arabella Lopez RPh Clinical Pharmacist, Pharmacy Anticoagulation Clinic Pharmacy Anticoagulation Clinic Pager: [phone]. [facility] 07-15-2024 [address]iscellaneous [address] [facility] Ambulatory Pharmacy Anticoagulation Clinic Anticoagulation Episode Summary Anticoagulation Care Providers Provider Role Specialty Phone number Tien Serrano MD Referring Family Medicine [phone] Wilmer Morley is a 83 year old year old male patient being evaluated today for a Telemanagement visit. Patient is currently on the following anticoagulant(s) Warfarin. Labs PT INR (no units) Date Value 09/16/2021 2.9 09/02/2021 3.2 06/06/2021 2.5 biotel INR Home CoaguChek (no units) Date Value 07/15/2024 3.1 06/29/2024 3.9 06/14/2024 3.2 Hemoglobin (g/dL) Date Value 11/03/2023 13.9 03/14/2021 14.8 Hematocrit (%) Date Value 11/03/2023 42.3 03/14/2021 44.9 Platelet Count (k/uL) Date Value 11/03/2023 162 03/14/2021 191 Creatinine (mg/dL) Date Value 12/28/2023 1.09 11/11/2023 1.23 11/03/2023 1.21 03/14/2021 1.34 09/06/2020 1.27 08/06/2020 1.43 Bilirubin, Total (mg/dL) Date Value 11/03/2023 0.6 03/14/2021 1.1 ALT (U/L) Date Value 11/03/2023 35 03/14/2021 32 AST (U/L) Date Value 11/03/2023 33 03/14/2021 30 CrCl cannot be calculated (Patient's most recent lab result is older than the maximum 180 days allowed.). ALLERGIES No Known Allergies 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: Anticoagulation Episode Summary Current INR goal: 2.0-3.0 Assessment: INR result of 3.1 is SUPRAtherapeutic due to: Patient taking incorrect warfarin dose or extra dose(s) Took 7.5 mg last Thursday Plan: Current Warfarin Dosing As of 07/15/2024 Full warfarin instructions: 7.5 mg every Mon; 5 mg all other days Called and spoke to patient/caregiver Advised patient to continue current weekly dose as noted above Next home INR check scheduled on 07/27/2024 Patient verbalizes understanding of the plan. Patient advised to call the PAC with any medication changes, bleeding/bruising concerns, recent changes in vitamin k consumption, if any procedures are coming up, if they have been ill or in the hospital, and if they have missed any doses of warfarin. Arabella Lopez RPh Clinical Pharmacist, Pharmacy Anticoagulation Clinic Pharmacy Anticoagulation Clinic Pager: [phone]. documented in this encounter [facility] 06-29-2024 Telephone encounter Note [facility] Ambulatory Pharmacy Anticoagulation Clinic Anticoagulation Episode Summary Anticoagulation Care Providers Provider Role Specialty Phone number Tien Serrano MD Referring Family Medicine [phone] Wilmer Morley is a 83 year old year old male patient being evaluated today for a Telemanagement visit. Patient is currently on the following anticoagulant(s) Warfarin. Labs PT INR (no units) Date Value 09/16/2021 2.9 09/02/2021 3.2 06/06/2021 2.5 biotel INR Home CoaguChek (no units) Date Value 06/29/2024 3.9 06/14/2024 3.2 05/23/2024 2.3 Hemoglobin (g/dL) Date Value 11/03/2023 13.9 03/14/2021 14.8 Hematocrit (%) Date Value 11/03/2023 42.3 03/14/2021 44.9 Platelet Count (k/uL) Date Value 11/03/2023 162 03/14/2021 191 Creatinine (mg/dL) Date Value 12/28/2023 1.09 11/11/2023 1.23 11/03/2023 1.21 03/14/2021 1.34 09/06/2020 1.27 08/06/2020 1.43 Bilirubin, Total (mg/dL) Date Value 11/03/2023 0.6 03/14/2021 1.1 ALT (U/L) Date Value 11/03/2023 35 03/14/2021 32 AST (U/L) Date Value 11/03/2023 33 03/14/2021 30 CrCl cannot be calculated (Patient's most recent lab result is older than the maximum 180 days allowed.). ALLERGIES No Known Allergies 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: long term (current) use of anticoagulants Atrial fibrillation, unspecified type (hcc) History of dvt (deep vein thrombosis) Anticoagulation Episode Summary Current INR goal: 2.0-3.0 Assessment: INR result of 3.9 is SUPRAtherapeutic due to: No obvious cause (patient denies medication change, grapefruit/cranberry/pomegranate/barbara ingestion, OTC medication use, change in herbal/nutritional supplement, accidental overdosage, change in warfarin tablet shape or color, change in vit K consumption, recent illness (NVD, fever), any changes to general health, changes in tobacco use, or EtOH consumption) Plan: Current Warfarin Dosing As of 06/29/2024 Full warfarin instructions: 06/29: Hold; Otherwise 7.5 mg every Mon; 5 mg all other days Called and spoke to patient/caregiver Advised patient to hold 1 dose then decrease current regimen Next home INR check scheduled on 07/13/2024 Patient verbalizes understanding of the plan. Patient denies need for refills. Patient advised to call the PAC with any medication changes, bleeding/bruising concerns, recent changes in vitamin k consumption, if any procedures are coming up, if they have been ill or in the hospital, and if they have missed any doses of warfarin. Ghazal Bailey RPh Clinical Pharmacist, Pharmacy Anticoagulation Clinic Pharmacy Anticoagulation Clinic Pager: [phone]. [facility] 06-29-2024 [address]iscellaneous [address] [facility] Ambulatory Pharmacy Anticoagulation Clinic Anticoagulation Episode Summary Anticoagulation Care Providers Provider Role Specialty Phone number Tien Serrano MD Referring Family Medicine [phone] Wilmer Morley is a 83 year old year old male patient being evaluated today for a Telemanagement visit. Patient is currently on the following anticoagulant(s) Warfarin. Labs PT INR (no units) Date Value 09/16/2021 2.9 09/02/2021 3.2 06/06/2021 2.5 biotel INR Home CoaguChek (no units) Date Value 06/29/2024 3.9 06/14/2024 3.2 05/23/2024 2.3 Hemoglobin (g/dL) Date Value 11/03/2023 13.9 03/14/2021 14.8 Hematocrit (%) Date Value 11/03/2023 42.3 03/14/2021 44.9 Platelet Count (k/uL) Date Value 11/03/2023 162 03/14/2021 191 Creatinine (mg/dL) Date Value 12/28/2023 1.09 11/11/2023 1.23 11/03/2023 1.21 03/14/2021 1.34 09/06/2020 1.27 08/06/2020 1.43 Bilirubin, Total (mg/dL) Date Value 11/03/2023 0.6 03/14/2021 1.1 ALT (U/L) Date Value 11/03/2023 35 03/14/2021 32 AST (U/L) Date Value 11/03/2023 33 03/14/2021 30 CrCl cannot be calculated (Patient's most recent lab result is older than the maximum 180 days allowed.). ALLERGIES No Known Allergies 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: USP (current) use of anticoagulants Atrial fibrillation, unspecified type (hcc) History of dvt (deep vein thrombosis) Anticoagulation Episode Summary Current INR goal: 2.0-3.0 Assessment: INR result of 3.9 is SUPRAtherapeutic due to: No obvious cause (patient denies medication change, grapefruit/cranberry/pomegranate/barbara ingestion, OTC medication use, change in herbal/nutritional supplement, accidental overdosage, change in warfarin tablet shape or color, change in vit K consumption, recent illness (NVD, fever), any changes to general health, changes in tobacco use, or EtOH consumption) Plan: Current Warfarin Dosing As of 06/29/2024 Full warfarin instructions: 06/29: Hold; Otherwise 7.5 mg every Mon; 5 mg all other days Called and spoke to patient/caregiver Advised patient to hold 1 dose then decrease current regimen Next home INR check scheduled on 07/13/2024 Patient verbalizes understanding of the plan. Patient denies need for refills. Patient advised to call the PAC with any medication changes, bleeding/bruising concerns, recent changes in vitamin k consumption, if any procedures are coming up, if they have been ill or in the hospital, and if they have missed any doses of warfarin. Ghazal Bailey RPh Clinical Pharmacist, Pharmacy Anticoagulation Clinic Pharmacy Anticoagulation Clinic Pager: [phone]. documented in this encounter [facility] 06-27-2024 Telephone encounter Note Patient's calls and states that [facility] shipped out medications to [place] address and not where they currently are living. states that she talked to [facility] and they are going to need a new order for medication and that they will override previous order and send out medication to correct address. The patient has been identified by name and date of : Yes Caregiver verified no other encounters exist for this prescription request: Yes Caregiver confirmed with patient/requestor that no other refills are due, in the near future, with this provider at this time: Yes The last office visit in the department: 05/02/2024 Does the patient have a future office visit with this provider/department: Yes 11/02/2024 Requested Prescriptions Pending Prescriptions Disp Refills warfarin (COUMADIN) 5 mg tablet 90 tablet 1 Si.5 mg every Mon, Fri; 5 mg all other days Nerissa Zuniga RN June 27, 2024 12:[address] [facility] 06-27-2024 Miscellaneous Notes Patient's calls and states that [facility] shipped out medications to [place] address and not where they currently are living. states that she talked to [facility] and they are going to need a new order for medication and that they will override previous order and send out medication to correct address. The patient has been identified by name and date of : Yes Caregiver verified no other encounters exist for this prescription request: Yes Caregiver confirmed with patient/requestor that no other refills are due, in the near future, with this provider at this time: Yes The last office visit in the department: 05/02/2024 Does the patient have a future office visit with this provider/department: Yes 11/02/2024 Requested Prescriptions Pending Prescriptions Disp Refills warfarin (COUMADIN) 5 mg tablet 90 tablet 1 Si.5 mg every Mon, Fri; 5 mg all other days Nerissa Zuniga RN June 27, 2024 12:05 PM documented in this encounter [facility] 06-14-2024 Telephone encounter Note [facility] Ambulatory Pharmacy Anticoagulation Clinic Anticoagulation Episode Summary Anticoagulation Care Providers Provider Role Specialty Phone number Tien Serrano MD Referring Family Medicine [phone] Wilmer Morley is a 83 year old year old male patient being evaluated today for a Telemanagement visit. Patient is currently on the following anticoagulant(s) Warfarin. Labs PT INR (no units) Date Value 09/16/2021 2.9 09/02/2021 3.2 06/06/2021 2.5 biotel INR Home CoaguChek (no units) Date Value 06/14/2024 3.2 05/23/2024 2.3 05/08/2024 2.8 Hemoglobin (g/dL) Date Value 11/03/2023 13.9 03/14/2021 14.8 Hematocrit (%) Date Value 11/03/2023 42.3 03/14/2021 44.9 Platelet Count (k/uL) Date Value 11/03/2023 162 03/14/2021 191 Creatinine (mg/dL) Date Value 12/28/2023 1.09 11/11/2023 1.23 11/03/2023 1.21 03/14/2021 1.34 09/06/2020 1.27 08/06/2020 1.43 Bilirubin, Total (mg/dL) Date Value 11/03/2023 0.6 03/14/2021 1.1 ALT (U/L) Date Value 11/03/2023 35 03/14/2021 32 AST (U/L) Date Value 11/03/2023 33 03/14/2021 30 Estimated Creatinine Clearance: 61.5 mL/min (based on SCr of 1.09 mg/dL). ALLERGIES No Known Allergies 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: Anticoagulation Episode Summary Current INR goal: 2.0-3.0 Assessment: INR result of 3.2 is SUPRAtherapeutic due to: Decreased vitamin k intake Plan: Current Warfarin Dosing As of 06/14/2024 Full warfarin instructions: 06/14: 2.5 mg; Otherwise 7.5 mg every Mon, Fri; 5 mg all other days Called and spoke to patient/caregiver Advised patient to continue current weekly dose as noted above and eat a serving of Vit K today and tomorrow. Next home INR check scheduled on 06/28/2024 Patient verbalizes understanding of the plan. Patient advised to call the PAC with any medication changes, bleeding/bruising concerns, recent changes in vitamin k consumption, if any procedures are coming up, if they have been ill or in the hospital, and if they have missed any doses of warfarin. Arabella Lopez RPh Clinical Pharmacist, Pharmacy Anticoagulation Clinic Pharmacy Anticoagulation Clinic Pager: [phone]. [facility] 06-14-2024 Miscellaneous Notes [facility] Ambulatory Pharmacy Anticoagulation Clinic Anticoagulation Episode Summary Anticoagulation Care Providers Provider Role Specialty Phone number Tien Serrano MD Referring Family Medicine [phone] Wilmre Morley is a 83 year old year old male patient being evaluated today for a Telemanagement visit. Patient is currently on the following anticoagulant(s) Warfarin. Labs PT INR (no units) Date Value 09/16/2021 2.9 09/02/2021 3.2 06/06/2021 2.5 biotel INR Home CoaguChek (no units) Date Value 06/14/2024 3.2 05/23/2024 2.3 05/08/2024 2.8 Hemoglobin (g/dL) Date Value 11/03/2023 13.9 03/14/2021 14.8 Hematocrit (%) Date Value 11/03/2023 42.3 03/14/2021 44.9 Platelet Count (k/uL) Date Value 11/03/2023 162 03/14/2021 191 Creatinine (mg/dL) Date Value 12/28/2023 1.09 11/11/2023 1.23 11/03/2023 1.21 03/14/2021 1.34 09/06/2020 1.27 08/06/2020 1.43 Bilirubin, Total (mg/dL) Date Value 11/03/2023 0.6 03/14/2021 1.1 ALT (U/L) Date Value 11/03/2023 35 03/14/2021 32 AST (U/L) Date Value 11/03/2023 33 03/14/2021 30 Estimated Creatinine Clearance: 61.5 mL/min (based on SCr of 1.09 mg/dL). ALLERGIES No Known Allergies 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: Anticoagulation Episode Summary Current INR goal: 2.0-3.0 Assessment: INR result of 3.2 is SUPRAtherapeutic due to: Decreased vitamin k intake Plan: Current Warfarin Dosing As of 06/14/2024 Full warfarin instructions: 06/14: 2.5 mg; Otherwise 7.5 mg every Mon, Fri; 5 mg all other days Called and spoke to patient/caregiver Advised patient to continue current weekly dose as noted above and eat a serving of Vit K today and tomorrow. Next home INR check scheduled on 06/28/2024 Patient verbalizes understanding of the plan. Patient advised to call the PAC with any medication changes, bleeding/bruising concerns, recent changes in vitamin k consumption, if any procedures are coming up, if they have been ill or in the hospital, and if they have missed any doses of warfarin. Arabella Lopez RPh Clinical Pharmacist, Pharmacy Anticoagulation Clinic Pharmacy Anticoagulation Clinic Pager: [phone]. documented in this encounter [facility] 06-09-2024 Telephone encounter Note Prescription Refill Information The patient has been identified by name and date of : Yes Caregiver verified no other encounters exist for this prescription request: Yes Caregiver confirmed with patient/requestor that no other refills are due, in the near future, with this provider at this time: Yes The last office visit in the department: 05/02/24 Does the patient have a future office visit with this provider/department: Yes Requested Prescriptions Pending Prescriptions Disp Refills sertraline (ZOLOFT) 100 mg tablet 90 tablet 1 Sig: Take 1 tablet by mouth once daily. Velma Gonzalez LPN June 09, 2024 2:[address] [facility] 06-09-2024 Miscellaneous Notes Prescription Refill Information The patient has been identified by name and date of : Yes Caregiver verified no other encounters exist for this prescription request: Yes Caregiver confirmed with patient/requestor that no other refills are due, in the near future, with this provider at this time: Yes The last office visit in the department: 05/02/24 Does the patient have a future office visit with this provider/department: Yes Requested Prescriptions Pending Prescriptions Disp Refills sertraline (ZOLOFT) 100 mg tablet 90 tablet 1 Sig: Take 1 tablet by mouth once daily. Velma Gonzalez LPN June 09, 2024 2:10 PM documented in this encounter [facility] 05-24-2024 Telephone encounter Note [facility] Ambulatory Pharmacy Anticoagulation Clinic Anticoagulation Episode Summary Anticoagulation Care Providers Provider Role Specialty Phone number Tien Serrano MD Referring Family Medicine [phone] Wilmer Morley is a 83 year old year old male patient being evaluated today for a Telemanagement visit. Patient is currently on the following anticoagulant(s) Warfarin. Labs PT INR (no units) Date Value 09/16/2021 2.9 09/02/2021 3.2 06/06/2021 2.5 biotel INR Home CoaguChek (no units) Date Value 05/23/2024 2.3 05/08/2024 2.8 04/20/2024 2.0 Hemoglobin (g/dL) Date Value 11/03/2023 13.9 03/14/2021 14.8 Hematocrit (%) Date Value 11/03/2023 42.3 03/14/2021 44.9 Platelet Count (k/uL) Date Value 11/03/2023 162 03/14/2021 191 Creatinine (mg/dL) Date Value 12/28/2023 1.09 11/11/2023 1.23 11/03/2023 1.21 03/14/2021 1.34 09/06/2020 1.27 08/06/2020 1.43 Bilirubin, Total (mg/dL) Date Value 11/03/2023 0.6 03/14/2021 1.1 ALT (U/L) Date Value 11/03/2023 35 03/14/2021 32 AST (U/L) Date Value 11/03/2023 33 03/14/2021 30 Estimated Creatinine Clearance: 61.5 mL/min (based on SCr of 1.09 mg/dL). ALLERGIES No Known Allergies 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: Anticoagulation Episode Summary Current INR goal: 2.0-3.0 Assessment: INR result of 2.3 is therapeutic Plan: Current Warfarin Dosing As of 05/24/2024 Full warfarin instructions: 7.5 mg every Mon, Fri; 5 mg all other days Called and spoke to patient/caregiver spouse Advised patient to continue current weekly dose as noted above Next home INR check scheduled on 06/14/2024 Patient's caregiver verbalizes understanding of the plan. Patient advised to call the PAC with any medication changes, bleeding/bruising concerns, recent changes in vitamin k consumption, if any procedures are coming up, if they have been ill or in the hospital, and if they have missed any doses of warfarin. Arabella Lopez RPh Clinical Pharmacist, Pharmacy Anticoagulation Clinic Pharmacy Anticoagulation Clinic Pager: [phone]. [facility] 05-24-2024 Miscellaneous Notes [facility] Ambulatory Pharmacy Anticoagulation Clinic Anticoagulation Episode Summary Anticoagulation Care Providers Provider Role Specialty Phone number Tien Serrano MD Referring Family Medicine [phone] Wilmer Morley is a 83 year old year old male patient being evaluated today for a Telemanagement visit. Patient is currently on the following anticoagulant(s) Warfarin. Labs PT INR (no units) Date Value 09/16/2021 2.9 09/02/2021 3.2 06/06/2021 2.5 biotel INR Home CoaguChek (no units) Date Value 05/23/2024 2.3 05/08/2024 2.8 04/20/2024 2.0 Hemoglobin (g/dL) Date Value 11/03/2023 13.9 03/14/2021 14.8 Hematocrit (%) Date Value 11/03/2023 42.3 03/14/2021 44.9 Platelet Count (k/uL) Date Value 11/03/2023 162 03/14/2021 191 Creatinine (mg/dL) Date Value 12/28/2023 1.09 11/11/2023 1.23 11/03/2023 1.21 03/14/2021 1.34 09/06/2020 1.27 08/06/2020 1.43 Bilirubin, Total (mg/dL) Date Value 11/03/2023 0.6 03/14/2021 1.1 ALT (U/L) Date Value 11/03/2023 35 03/14/2021 32 AST (U/L) Date Value 11/03/2023 33 03/14/2021 30 Estimated Creatinine Clearance: 61.5 mL/min (based on SCr of 1.09 mg/dL). ALLERGIES No Known Allergies 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: Anticoagulation Episode Summary Current INR goal: 2.0-3.0 Assessment: INR result of 2.3 is therapeutic Plan: Current Warfarin Dosing As of 05/24/2024 Full warfarin instructions: 7.5 mg every Mon, Fri; 5 mg all other days Called and spoke to patient/caregiver spouse Advised patient to continue current weekly dose as noted above Next home INR check scheduled on 06/14/2024 Patient's caregiver verbalizes understanding of the plan. Patient advised to call the PAC with any medication changes, bleeding/bruising concerns, recent changes in vitamin k consumption, if any procedures are coming up, if they have been ill or in the hospital, and if they have missed any doses of warfarin. Arabella Lopez RPh Clinical Pharmacist, Pharmacy Anticoagulation Clinic Pharmacy Anticoagulation Clinic Pager: [phone]. documented in this encounter [facility] 05-09-2024 Telephone encounter Note [facility] Ambulatory Pharmacy Anticoagulation Clinic Anticoagulation Episode Summary Anticoagulation Care Providers Provider Role Specialty Phone number Tien Serrano MD Referring Family Medicine [phone] Wilmer Morley is a 83 year old year old male patient being evaluated today for a Telemanagement visit. Patient is currently on the following anticoagulant(s) Warfarin. Labs PT INR (no units) Date Value 09/16/2021 2.9 09/02/2021 3.2 06/06/2021 2.5 biotel INR Home CoaguChek (no units) Date Value 05/08/2024 2.8 04/20/2024 2.0 03/31/2024 2.6 Hemoglobin (g/dL) Date Value 11/03/2023 13.9 03/14/2021 14.8 Hematocrit (%) Date Value 11/03/2023 42.3 03/14/2021 44.9 Platelet Count (k/uL) Date Value 11/03/2023 162 03/14/2021 191 Creatinine (mg/dL) Date Value 12/28/2023 1.09 11/11/2023 1.23 11/03/2023 1.21 03/14/2021 1.34 09/06/2020 1.27 08/06/2020 1.43 Bilirubin, Total (mg/dL) Date Value 11/03/2023 0.6 03/14/2021 1.1 ALT (U/L) Date Value 11/03/2023 35 03/14/2021 32 AST (U/L) Date Value 11/03/2023 33 03/14/2021 30 Estimated Creatinine Clearance: 61.5 mL/min (based on SCr of 1.09 mg/dL). ALLERGIES No Known Allergies 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: Anticoagulation Episode Summary Current INR goal: 2.0-3.0 Assessment: INR result of 2.8 is therapeutic Plan: Current Warfarin Dosing As of 05/09/2024 Full warfarin instructions: 7.5 mg every Mon, Fri; 5 mg all other days Sent HowGood message Advised patient to continue current weekly dose as noted above Next INR check due on 05/23/2024 Namita Gee RPh Clinical Pharmacist, Pharmacy Anticoagulation Clinic Pharmacy Anticoagulation Clinic Pager: [phone]. [facility] 05-09-2024 Miscellaneous Notes [facility] Ambulatory Pharmacy Anticoagulation Clinic Anticoagulation Episode Summary Anticoagulation Care Providers Provider Role Specialty Phone number Tien Serrano MD Referring Family Medicine [phone] Wilmer Morley is a 83 year old year old male patient being evaluated today for a Telemanagement visit. Patient is currently on the following anticoagulant(s) Warfarin. Labs PT INR (no units) Date Value 09/16/2021 2.9 09/02/2021 3.2 06/06/2021 2.5 biotel INR Home CoaguChek (no units) Date Value 05/08/2024 2.8 04/20/2024 2.0 03/31/2024 2.6 Hemoglobin (g/dL) Date Value 11/03/2023 13.9 03/14/2021 14.8 Hematocrit (%) Date Value 11/03/2023 42.3 03/14/2021 44.9 Platelet Count (k/uL) Date Value 11/03/2023 162 03/14/2021 191 Creatinine (mg/dL) Date Value 12/28/2023 1.09 11/11/2023 1.23 11/03/2023 1.21 03/14/2021 1.34 09/06/2020 1.27 08/06/2020 1.43 Bilirubin, Total (mg/dL) Date Value 11/03/2023 0.6 03/14/2021 1.1 ALT (U/L) Date Value 11/03/2023 35 03/14/2021 32 AST (U/L) Date Value 11/03/2023 33 03/14/2021 30 Estimated Creatinine Clearance: 61.5 mL/min (based on SCr of 1.09 mg/dL). ALLERGIES No Known Allergies 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: Anticoagulation Episode Summary Current INR goal: 2.0-3.0 Assessment: INR result of 2.8 is therapeutic Plan: Current Warfarin Dosing As of 05/09/2024 Full warfarin instructions: 7.5 mg every Mon, Fri; 5 mg all other days Sent HowGood message Advised patient to continue current weekly dose as noted above Next INR check due on 05/23/2024 Namita Gee RPh Clinical Pharmacist, Pharmacy Anticoagulation Clinic Pharmacy Anticoagulation Clinic Pager: [phone]. documented in this encounter [facility] 05-02-2024 Note HNO ID: [id number] Author: TIEN SERRANO MD Service: ? Author Type: Physician Type: Progress Notes Filed: 05/02/2024 16:07 Note Text: Patient presents with: Follow Up HPI: Patient presents today for office visit for followed up. Slight improvement with inhaler and breathing. Offered pulmonary. He overall feels things are improving enough that he is ok. No chest pain or shortness of breath. No cough Has rare sputum. Improved balance since therapy. Has also made adjustments to how he does things. Doing exercises that was given in therapy but could do them more often. See Katy's last note, copied and pasted. : He had PFTs completed, which showed. IMPRESSION: Spirometry indicates moderate obstruction. Positive bronchodilator response. Lung volumes (FRC and/or RV) are elevated indicating hyperinflation and air trapping He was started on spiriva and albuterol. Has noticed maybe a little better. Gets winded with activity, so going to try using the inhaler before activity to see if that helps prevent the SOB with exacerbation. He has problems with IBS. He currently takes 1/2 tab of an imodium daily. He does notice that symptoms have gotten a little worse as far as urgency after he eats. No hematochezia/melena. Questions if okay to increase the imodium to a full tablet daily. Note was copied and pasted, without alteration from: my previous ov: ollowed up with PT for some balance concerns. Saw PT on 02/02/24. Nothing found inner ear. Plan is for balance training. To complete about 6 sessions. Will continue with home exercises. Denies dizziness. States nothing spins. Refers to feeling like he's had too much to drink. Has been monitoring his BP and HR. Hr often in the 50's which we discussed can be a normal finding. His slipman felt his symptoms were due to deconditioning. No headache, numbness or weakness. No vision or speech issues. Has not yet started back at [employer]. Trying to walk in his neighborhood. Still gets short of breath. Rare cough. No fever. Consider chest x-ray and PFT MEDICATIONS: Current Outpatient Medications Medication Sig warfarin (COUMADIN) 5 mg tablet 7.5 mg every Mon, Fri; 5 mg all other days tiotropium (SPIRIVA WITH HANDIHALER) 18 mcg inhalation capsule Inhale 1 capsule as instructed once daily. Use with handihaler. albuterol HFA (VENTOLIN HFA) 90 mcg/actuation inhaler Inhale 2 Puffs as instructed every 4 hours as needed for wheezing/shortness of breath. lisinopril (ZESTRIL) 10 mg tablet Take 1 tablet by mouth once daily. loperamide HCl (IMODIUM) 2 mg tab Take 1 tablet by mouth as needed. flecainide (TAMBOCOR) 100 mg tablet Take 1 tablet by mouth two times a day. doxazosin (CARDURA) 1 mg tablet Take 1 tablet by mouth daily at bedtime. atorvastatin (LIPITOR) 20 mg tablet Take 1 tablet by mouth once daily. amLODIPine (NORVASC) 5 mg tablet Take 5 mg by mouth once daily. sertraline (ZOLOFT) 100 mg tablet Take 1 tablet by mouth once daily. No current facility-administered medications for this visit. 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 Benign neoplasm of colon CKD (chronic kidney disease), stage III (HCC) 04/08/2018 Diverticulosis of colon (without mention of hemorrhage) Essential hypertension, benign 02/27/2010 Facial basal cell cancer 2009 Internal hemorrhoids without mention of complication Other acute embolism veins Other and unspecified hyperlipidemia hypertriglyeridemia Personal history of colonic polyps PAST SURGICAL HISTORY Procedure Laterality Date CATARACT EXTRACTION HX Left CATARACT SURGERY, COMPLEX 2009 R eye COLONOSCOPY FLX DX W/COLLJ SPEC WHEN PFRMD 08/05/2000 Colonoscopy COLONOSCOPY FLX DX W/COLLJ SPEC WHEN PFRMD 11/02/2002 Colonoscopy COLONOSCOPY FLX DX W/COLLJ SPEC WHEN PFRMD 01/29/2009 COLONOSCOPY FLX DX W/COLLJ SPEC WHEN PFRMD 02/24/2014 Colonoscopy COLONOSCOPY FLX DX W/COLLJ SPEC WHEN PFRMD 03/09/2018 [facility]-repeat 10 years ESOPHAGOGASTRODUODENOSCOPY TRANSORAL DIAGNOSTIC N/A 08/16/2020 [facility] 2010 basal cell to right above upper lip FAMILY HISTORY Problem Relation Age of Onset Heart Father CHF Heart Mother CHF Heart Brother [place] - rheumatic fever Cancer Brother gastric Asthma Sister Social History Tobacco Use Smoking status: Former Current packs/day: 0.00 Types: Cigarettes Start date: 02/24/2010 Quit date: 02/24/2011 Years since quittin.1 Smokeless tobacco: Never Substance Use Topics Alcohol use: Yes Alcohol/week: 2.3 standard drinks of alcohol Types: 1 Glasses of Wine (5oz), 1 Mixed Drinks per week Comment: one drink a day Drug use: No Reviewed current medications, allergies, past medical history, surgical history, family history and social history today (more content not included)... [facility] 05-02-2024 History of Present illness Narrative Patient presents with: Follow Up HPI: Patient presents today for office visit for followed up. Slight improvement with inhaler and breathing. Offered pulmonary. He overall feels things are improving enough that he is ok. No chest pain or shortness of breath. No cough Has rare sputum. Improved balance since therapy. Has also made adjustments to how he does things. Doing exercises that was given in therapy but could do them more often. See Katy's last note, copied and pasted. : He had PFTs completed, which showed. IMPRESSION: Spirometry indicates moderate obstruction. Positive bronchodilator response. Lung volumes (FRC and/or RV) are elevated indicating hyperinflation and air trapping He was started on spiriva and albuterol. Has noticed maybe a little better. Gets winded with activity, so going to try using the inhaler before activity to see if that helps prevent the SOB with exacerbation. He has problems with IBS. He currently takes 1/2 tab of an imodium daily. He does notice that symptoms have gotten a little worse as far as urgency after he eats. No hematochezia/melena. Questions if okay to increase the imodium to a full tablet daily. Note was copied and pasted, without alteration from: my previous ov: ollowed up with PT for some balance concerns. Saw PT on 02/02/24. Nothing found inner ear. Plan is for balance training. To complete about 6 sessions. Will continue with home exercises. Denies dizziness. States nothing spins. Refers to feeling like he's had too much to drink. Has been monitoring his BP and HR. Hr often in the 50's which we discussed can be a normal finding. His slipman felt his symptoms were due to deconditioning. No headache, numbness or weakness. No vision or speech issues. Has not yet started back at [employer]. Trying to walk in his neighborhood. Still gets short of breath. Rare cough. No fever. Consider chest x-ray and PFT MEDICATIONS: Current Outpatient Medications Medication Sig warfarin (COUMADIN) 5 mg tablet 7.5 mg every Mon, Fri; 5 mg all other days tiotropium (SPIRIVA WITH HANDIHALER) 18 mcg inhalation capsule Inhale 1 capsule as instructed once daily. Use with handihaler. albuterol HFA (VENTOLIN HFA) 90 mcg/actuation inhaler Inhale 2 Puffs as instructed every 4 hours as needed for wheezing/shortness of breath. lisinopril (ZESTRIL) 10 mg tablet Take 1 tablet by mouth once daily. loperamide HCl (IMODIUM) 2 mg tab Take 1 tablet by mouth as needed. flecainide (TAMBOCOR) 100 mg tablet Take 1 tablet by mouth two times a day. doxazosin (CARDURA) 1 mg tablet Take 1 tablet by mouth daily at bedtime. atorvastatin (LIPITOR) 20 mg tablet Take 1 tablet by mouth once daily. amLODIPine (NORVASC) 5 mg tablet Take 5 mg by mouth once daily. sertraline (ZOLOFT) 100 mg tablet Take 1 tablet by mouth once daily. No current facility-administered medications for this visit. 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 Benign neoplasm of colon CKD (chronic kidney disease), stage III (HCC) 04/08/2018 Diverticulosis of colon (without mention of hemorrhage) Essential hypertension, benign 02/27/2010 Facial basal cell cancer 2009 Internal hemorrhoids without mention of complication Other acute embolism veins Other and unspecified hyperlipidemia hypertriglyeridemia Personal history of colonic polyps PAST SURGICAL HISTORY Procedure Laterality Date CATARACT EXTRACTION HX Left CATARACT SURGERY, COMPLEX 2009 R eye COLONOSCOPY FLX DX W/COLLJ SPEC WHEN PFRMD 08/05/2000 Colonoscopy COLONOSCOPY FLX DX W/COLLJ SPEC WHEN PFRMD 11/02/2002 Colonoscopy COLONOSCOPY FLX DX W/COLLJ SPEC WHEN PFRMD 01/29/2009 COLONOSCOPY FLX DX W/COLLJ SPEC WHEN PFRMD 02/24/2014 Colonoscopy COLONOSCOPY FLX DX W/COLLJ SPEC WHEN PFRMD 03/09/2018 MARCIAL Garcia-repeat 10 years ESOPHAGOGASTRODUODENOSCOPY TRANSORAL DIAGNOSTIC N/A 08/16/2020 MARCIAL Garcia PAST SURGICAL HISTORY OF 2010 basal cell to right above upper lip FAMILY HISTORY Problem Relation Age of Onset Heart Father CHF Heart Mother CHF Heart Brother [place] - rheumatic fever Cancer Brother gastric Asthma Sister Social History Tobacco Use Smoking status: Former Current packs/day: 0.00 Types: Cigarettes Start date: 02/24/2010 Quit date: 02/24/2011 Years since quittin.1 Smokeless tobacco: Never Substance Use Topics Alcohol use: Yes Alcohol/week: 2.3 standard drinks of alcohol Types: 1 Glasses of Wine (5oz), 1 Mixed Drinks per week Comment: one drink a day Drug use: No Reviewed current medications, allergies, past medical history, surgical history, family history and social history today. REVIEW OF SYSTEMS All other reviewed and negative other than HPI. HEALTH MAINTENANCE: Reviewed health maintenance issues today and recommended the following in detail. There are no preventive care reminders to display for this patient. VITALS: BP 122/62 Pulse (!) 49 Wt 98.4 kg (217 lb) SpO2 97% BMI 31.14 kg/m Last 4 Encounter Wt Readings: Date: Wt: 02/11/2024 94.8 kg (209 lb) 02/10/2024 94.8 kg (209 lb) 12/29/2023 96.6 kg (213 lb) 11/11/2023 94.3 kg (208 lb) PHYSICAL EXAMINATION: General appearance: Well appearing, alert, in no acute distress, well-hydrated, well nourished. Skin: Skin color, texture, turgor normal, no suspicious rashes or lesions Head: Normocephalic, no masses, lesions, tenderness or abnormalities Lungs: Lungs clear to auscultation. No wheezing, rhonchi, rales Heart: RRR without murmur, gallop, or rubs. No ectopy Abdomen: Normal abdominal exam, Abdomen soft, non-tender. Bowel sounds normal. No masses, organomegaly Extremities: No deformities, edema, skin discoloration, clubbing or cyanosis. Good capillary refill. ASSESSMENT/PLAN: 1. Chronic obstructive pulmonary disease, unspecified COPD type (HCC) - ICD9: 496, ICD10: J44.9 (primary diagnosis) - continue current meds. Call if any issues. 2. Atrial fibrillation, unspecified type (HCC) - ICD9: 427.31, ICD10: I48.91 - follow progress. 3. Essential hypertension, benign - ICD9: 401.1, ICD10: I10 - Controlled - Continue current medications - COMPLETE BLOOD COUNT AND DIFFERENTIAL - COMPREHENSIVE METABOLIC PANEL - LIPID PANEL BASIC 4. Stage 3a chronic kidney disease (HCC) - ICD9: 585.3, ICD10: N18.31 -stable. 5. Generalized anxiety disorder - ICD9: 300.02, ICD10: F41.1 - stable. 6. Anxiety - ICD9: 300.00, ICD10: F41.9 - stable. 7. Encounter for immunization - ICD9: V03.89, ICD10: Z23 - INFLUENZA VACCINE, PRSV FREE, AGE 65+ YR, HIGH DOSE, TRIVALENT (FLUZONE HIGH-DOSE) 8. Hyperglycemia - ICD9: 790.29, ICD10: R73.9 - HEMOGLOBIN A1C Tien Serrano RTO in six months and prn. documented in this encounter [facility] 04-20-2024 Telephone encounter Note [facility] Ambulatory Pharmacy Anticoagulation Clinic Anticoagulation Episode Summary Anticoagulation Care Providers Provider Role Specialty Phone number Tien Serrano MD Referring Family Medicine [phone] Wilmer Morley is a 83 year old year old male patient being evaluated today for a Telemanagement visit. Patient is currently on the following anticoagulant(s) Warfarin. Labs PT INR (no units) Date Value 09/16/2021 2.9 09/02/2021 3.2 06/06/2021 2.5 biotel INR Home CoaguChek (no units) Date Value 04/20/2024 2.0 03/31/2024 2.6 03/16/2024 2.6 Hemoglobin (g/dL) Date Value 11/03/2023 13.9 03/14/2021 14.8 Hematocrit (%) Date Value 11/03/2023 42.3 03/14/2021 44.9 Platelet Count (k/uL) Date Value 11/03/2023 162 03/14/2021 191 Creatinine (mg/dL) Date Value 12/28/2023 1.09 11/11/2023 1.23 11/03/2023 1.21 03/14/2021 1.34 09/06/2020 1.27 08/06/2020 1.43 Bilirubin, Total (mg/dL) Date Value 11/03/2023 0.6 03/14/2021 1.1 ALT (U/L) Date Value 11/03/2023 35 03/14/2021 32 AST (U/L) Date Value 11/03/2023 33 03/14/2021 30 Estimated Creatinine Clearance: 60.4 mL/min (based on SCr of 1.09 mg/dL). ALLERGIES No Known Allergies 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: USP (current) use of anticoagulants Atrial fibrillation, unspecified type (hcc) History of dvt (deep vein thrombosis) Anticoagulation Episode Summary Current INR goal: 2.0-3.0 Assessment: INR result of 2.0 is therapeutic Plan: Current Warfarin Dosing As of 04/20/2024 Full warfarin instructions: 7.5 mg every Mon, Fri; 5 mg all other days Sent HowGood message Advised patient to continue current weekly dose as noted above Next home INR check scheduled on 05/04/2024 Patient advised to call the PAC with any medication changes, bleeding/bruising concerns, recent changes in vitamin k consumption, if any procedures are coming up, if they have been ill or in the hospital, and if they have missed any doses of warfarin. Ghazal Bailey RPh Clinical Pharmacist, Pharmacy Anticoagulation Clinic Pharmacy Anticoagulation Clinic Pager: [phone]. [facility] 04-20-2024 Miscellaneous Notes [facility] Ambulatory Pharmacy Anticoagulation Clinic Anticoagulation Episode Summary Anticoagulation Care Providers Provider Role Specialty Phone number Tien Serrano MD Referring Family Medicine [phone] Wilmer Morley is a 83 year old year old male patient being evaluated today for a Telemanagement visit. Patient is currently on the following anticoagulant(s) Warfarin. Labs PT INR (no units) Date Value 09/16/2021 2.9 09/02/2021 3.2 06/06/2021 2.5 biotel INR Home CoaguChek (no units) Date Value 04/20/2024 2.0 03/31/2024 2.6 03/16/2024 2.6 Hemoglobin (g/dL) Date Value 11/03/2023 13.9 03/14/2021 14.8 Hematocrit (%) Date Value 11/03/2023 42.3 03/14/2021 44.9 Platelet Count (k/uL) Date Value 11/03/2023 162 03/14/2021 191 Creatinine (mg/dL) Date Value 12/28/2023 1.09 11/11/2023 1.23 11/03/2023 1.21 03/14/2021 1.34 09/06/2020 1.27 08/06/2020 1.43 Bilirubin, Total (mg/dL) Date Value 11/03/2023 0.6 03/14/2021 1.1 ALT (U/L) Date Value 11/03/2023 35 03/14/2021 32 AST (U/L) Date Value 11/03/2023 33 03/14/2021 30 Estimated Creatinine Clearance: 60.4 mL/min (based on SCr of 1.09 mg/dL). ALLERGIES No Known Allergies 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: USP (current) use of anticoagulants Atrial fibrillation, unspecified type (hcc) History of dvt (deep vein thrombosis) Anticoagulation Episode Summary Current INR goal: 2.0-3.0 Assessment: INR result of 2.0 is therapeutic Plan: Current Warfarin Dosing As of 04/20/2024 Full warfarin instructions: 7.5 mg every Mon, Fri; 5 mg all other days Sent HowGood message Advised patient to continue current weekly dose as noted above Next home INR check scheduled on 05/04/2024 Patient advised to call the PAC with any medication changes, bleeding/bruising concerns, recent changes in vitamin k consumption, if any procedures are coming up, if they have been ill or in the hospital, and if they have missed any doses of warfarin. Ghazal Bailey RPh Clinical Pharmacist, Pharmacy Anticoagulation Clinic Pharmacy Anticoagulation Clinic Pager: [phone]. documented in this encounter [facility] 04-01-2024 Telephone encounter Note Prescription Refill Information The patient has been identified by name and date of : Yes Caregiver verified no other encounters exist for this prescription request: Yes Caregiver confirmed with patient/requestor that no other refills are due, in the near future, with this provider at this time: Yes The last office visit in the department: 03/23/24 Does the patient have a future office visit with this provider/department: Yes Requested Prescriptions Pending Prescriptions Disp Refills warfarin (COUMADIN) 5 mg tablet 90 tablet 1 Si.5 mg every Mon, Fri; 5 mg all other days Nkechi Hair LPN April 01, 2024 9:[address] [facility] 04-01-2024 Miscellaneous Notes Prescription Refill Information The patient has been identified by name and date of : Yes Caregiver verified no other encounters exist for this prescription request: Yes Caregiver confirmed with patient/requestor that no other refills are due, in the near future, with this provider at this time: Yes The last office visit in the department: 03/23/24 Does the patient have a future office visit with this provider/department: Yes Requested Prescriptions Pending Prescriptions Disp Refills warfarin (COUMADIN) 5 mg tablet 90 tablet 1 Si.5 mg every Mon, Fri; 5 mg all other days Nkechi Hair LPN April 01, 2024 9:40 AM documented in this encounter [facility] 03-31-2024 Telephone encounter Note [facility] Ambulatory Pharmacy Anticoagulation Clinic Anticoagulation Episode Summary Anticoagulation Care Providers Provider Role Specialty Phone number Tien Serrano MD Referring Family Medicine [phone] Wilmer Morley is a 83 year old year old male patient being evaluated today for a Telemanagement visit. Patient is currently on the following anticoagulant(s) Warfarin. Labs PT INR (no units) Date Value 09/16/2021 2.9 09/02/2021 3.2 06/06/2021 2.5 biotel INR Home CoaguChek (no units) Date Value 03/31/2024 2.6 03/16/2024 2.6 03/02/2024 2.3 Hemoglobin (g/dL) Date Value 11/03/2023 13.9 03/14/2021 14.8 Hematocrit (%) Date Value 11/03/2023 42.3 03/14/2021 44.9 Platelet Count (k/uL) Date Value 11/03/2023 162 03/14/2021 191 Creatinine (mg/dL) Date Value 12/28/2023 1.09 11/11/2023 1.23 11/03/2023 1.21 03/14/2021 1.34 09/06/2020 1.27 08/06/2020 1.43 Bilirubin, Total (mg/dL) Date Value 11/03/2023 0.6 03/14/2021 1.1 ALT (U/L) Date Value 11/03/2023 35 03/14/2021 32 AST (U/L) Date Value 11/03/2023 33 03/14/2021 30 Estimated Creatinine Clearance: 60.4 mL/min (based on SCr of 1.09 mg/dL). ALLERGIES No Known Allergies 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: USP (current) use of anticoagulants History of dvt (deep vein thrombosis) Anticoagulation Episode Summary Current INR goal: 2.0-3.0 Assessment: INR result of 2.6 is therapeutic Plan: Current Warfarin Dosing As of 03/31/2024 Full warfarin instructions: 7.5 mg every Mon, Fri; 5 mg all other days Sent HowGood message Advised patient to continue current weekly dose as noted above Next home INR check scheduled on 04/14/2024 Patient advised to call the PAC with any medication changes, bleeding/bruising concerns, recent changes in vitamin k consumption, if any procedures are coming up, if they have been ill or in the hospital, and if they have missed any doses of warfarin. Jinny Shah RPh Clinical Pharmacist, Pharmacy Anticoagulation Clinic Pharmacy Anticoagulation Clinic Pager: [phone]. [facility] 03-31-2024 Miscellaneous Notes [facility] Ambulatory Pharmacy Anticoagulation Clinic Anticoagulation Episode Summary Anticoagulation Care Providers Provider Role Specialty Phone number Tien Serrano MD Referring Family Medicine [phone] Wilmer Morley is a 83 year old year old male patient being evaluated today for a Telemanagement visit. Patient is currently on the following anticoagulant(s) Warfarin. Labs PT INR (no units) Date Value 09/16/2021 2.9 09/02/2021 3.2 06/06/2021 2.5 biotel INR Home CoaguChek (no units) Date Value 03/31/2024 2.6 03/16/2024 2.6 03/02/2024 2.3 Hemoglobin (g/dL) Date Value 11/03/2023 13.9 03/14/2021 14.8 Hematocrit (%) Date Value 11/03/2023 42.3 03/14/2021 44.9 Platelet Count (k/uL) Date Value 11/03/2023 162 03/14/2021 191 Creatinine (mg/dL) Date Value 12/28/2023 1.09 11/11/2023 1.23 11/03/2023 1.21 03/14/2021 1.34 09/06/2020 1.27 08/06/2020 1.43 Bilirubin, Total (mg/dL) Date Value 11/03/2023 0.6 03/14/2021 1.1 ALT (U/L) Date Value 11/03/2023 35 03/14/2021 32 AST (U/L) Date Value 11/03/2023 33 03/14/2021 30 Estimated Creatinine Clearance: 60.4 mL/min (based on SCr of 1.09 mg/dL). ALLERGIES No Known Allergies 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: USP (current) use of anticoagulants History of dvt (deep vein thrombosis) Anticoagulation Episode Summary Current INR goal: 2.0-3.0 Assessment: INR result of 2.6 is therapeutic Plan: Current Warfarin Dosing As of 03/31/2024 Full warfarin instructions: 7.5 mg every Mon, Fri; 5 mg all other days Sent HowGood message Advised patient to continue current weekly dose as noted above Next home INR check scheduled on 04/14/2024 Patient advised to call the PAC with any medication changes, bleeding/bruising concerns, recent changes in vitamin k consumption, if any procedures are coming up, if they have been ill or in the hospital, and if they have missed any doses of warfarin. Jinny Shah [facility] Clinical Pharmacist, Pharmacy Anticoagulation Clinic Pharmacy Anticoagulation Clinic Pager: [phone]. documented in this encounter [facility] 03-30-2024 History of Present illness Narrative Program_ID:[id number] Access Code: [email or web address] URL: [email or web address] Date: 03-30-2024 Prepared By: Michelle Gomez Program Notes Exercises - Tandem Stance - 1-2 x daily - 7 x weekly - 1 sets - 3 reps - Single Leg Stance - 1-2 x daily - 7 x weekly - 1 sets - 3 reps - Single Leg Stance - 1-2 x daily - 7 x weekly - 1 sets - 3 reps Images from the original note were not included. Episode Visit Count: 5 Therapist That Will Accept/Oversee The Plan Of Care: Michelle Gomez Start of Care Date: 02/02/24 Onset Date: 08/04/22 Plan of Care Certification Date: 03/16/24 Next Certification Due Date: 04/13/24 REHABILITATION AND SPORTS THERAPY PHYSICAL THERAPY DISCONTINUANCE OF CARE PLAN OF CARE UPDATE: Assessment: Wilmer Morley is discontinued from Physical Therapy services due to goal achievement.. Patient was seen for 5 visits from Start of Care Date: 02/02/24 to 03/30/2024 and treatment included: Therapeutic exercise, Neuromuscular re-education, and Self-residential management. Goals for Episode of Care: created on 02/02/24 through 03/15/24 Goals updated on 03/16/2024. Goals updated on 03/30/2024. Patient will be independent with home exercise program and progression. -- MET Patient will return to prior level of function with all activities of daily living with trace reports of dizziness. -- MET Patient will deny dizziness with walking and standing. -- MET Patient will demonstrate the ability to complete VOR in static and dynamic positions with trace report of dizziness. -- MET Patient Goals: improve balance, become less SOB with minimal exertion -- MET SUBJECTIVE: Pt. now gets up a little more slower and this really helps however, he had dizziness after walking about 1 mile. Pt. has an appointment to see cardiology. He becomes SOB with exertion, but this resolves with rest. Pt. uses the inhaler intermittently. Pt. is confident that he does not feel that he will fall.. Patient Goals: improve balance, become less SOB with minimal exertion Pain: PROMIS Scales 02/29/2024 02/01/2024 Higher is Better Phys Func - Score 33 (moderate dysfunction) 40 (mild dysfunction) Phys Func - Percentile 4 16 Self-Eff Symptom - Score 44 (Average) 50 (Average) Self-Eff Symptom - Percentile 27 50 T-scores: mean of general population = 50. 5 points is clinically meaningfully difference Percentiles provide an indication of how the patient's score ranks in relation to the general population. Higher percentile rankings indicate better function/quality of life. 50th percentile is the average of the general population and indicates half of respondents had a worse score. OBJECTIVE MEASURES WITH LEVEL OF FUNCTION: Vitals BP: (!) 137/47 Pulse: 61 SpO2: 95 % TREATMENT: Neuromuscular Re-Education: 1: static standing VORx1 horrizontal head movement 60 sec at 1-2 hz - denies symptoms 2: static standing VORx1 vertical head movement 60 sec at 1-2 hz - denies symptoms (swaying but without LOB or reports of dizziness) 3: static seated VORx1 vertical head movement 60 sec at 1-2 hz - denies symptoms 4: tandem static standing 30 sec EO firm surface 5: tandem static standing EC x 22 sec without UE support firm surface Skilled Intervention: Skilled judgment used to assess appropriate program for balance and coordination activity. Education in proprioceptive/kinesthetic awareness during sitting, standing, and dynamic activities. Patient education as noted. Self-Chcf Management: 1: advised that pt. take inhaler as Rx'd for the benefit of improving airway dialation 2: discussed that symptoms that increase with exertion are to be discussed with slipman Skilled Intervention: Skilled judgment in the selection of proper modification for activity of daily living/home management based on clinical presentation, deficits, and needs. Reviewed patient specific diagnosis in relation to activities of daily living/home management. Activity progression based on professional judgement. Reviewed and educated patient on additions/changes for home program as noted above with an (*). Correct performance of home program was facilitated with verbal, visual, and tactile cueing. Billing Neuromuscular Re-Education Treatment Minutes: 21 Self-Care/Home Management Treatment Minutes: 5 Skilled Treatment Time Minutes (timed and untimed codes): 26 Total Session Time (minutes): 26 Session Start Time : 939 Session Stop Time : 1006 Michelle Gomez PT documented in this encounter [facility] 03-30-2024 Note HNO ID: [id number] Author: MICHELLE GOMEZ PT Service: ? Author Type: Physical Therapist Type: Progress Notes Filed: 03/30/2024 10:07 Note Text: Episode Visit Count: 5 Therapist That Will Accept/Oversee The Plan Of Care: Michelle Gomez Start of Care Date: 02/02/24 Onset Date: 08/04/22 Plan of Care Certification Date: 03/16/24 Next Certification Due Date: 04/13/24 REHABILITATION AND SPORTS THERAPY PHYSICAL THERAPY DISCONTINUANCE OF CARE PLAN OF CARE UPDATE: Assessment: Wilmer Morley is discontinued from Physical Therapy services due to goal achievement.. Patient was seen for 5 visits from Start of Care Date: 02/02/24 to 03/30/2024 and treatment included: Therapeutic exercise, Neuromuscular re-education, and Self-residential management. Goals for Episode of Care: created on 02/02/24 through 03/15/24 Goals updated on 03/16/2024. Goals updated on 03/30/2024. Patient will be independent with home exercise program and progression. -- MET Patient will return to prior level of function with all activities of daily living with trace reports of dizziness. -- MET Patient will deny dizziness with walking and standing. -- MET Patient will demonstrate the ability to complete VOR in static and dynamic positions with trace report of dizziness. -- MET Patient Goals: improve balance, become less SOB with minimal exertion -- MET SUBJECTIVE: Pt. now gets up a little more slower and this really helps however, he had dizziness after walking about 1 mile. Pt. has an appointment to see cardiology. He becomes SOB with exertion, but this resolves with rest. Pt. uses the inhaler intermittently. Pt. is confident that he does not feel that he will fall.. Patient Goals: improve balance, become less SOB with minimal exertion Pain: PROMIS Scales 02/29/2024 02/01/2024 Higher is Better Phys Func - Score 33 (moderate dysfunction) 40 (mild dysfunction) Phys Func - Percentile 4 16 Self-Eff Symptom - Score 44 (Average) 50 (Average) Self-Eff Symptom - Percentile 27 50 T-scores: mean of general population = 50. 5 points is clinically meaningfully difference Percentiles provide an indication of how the patient's score ranks in relation to the general population. Higher percentile rankings indicate better function/quality of life. 50th percentile is the average of the general population and indicates half of respondents had a worse score. OBJECTIVE MEASURES WITH LEVEL OF FUNCTION: Vitals BP: (!) 137/47 Pulse: 61 SpO2: 95 % TREATMENT: Neuromuscular Re-Education: 1: static standing VORx1 horrizontal head movement 60 sec at 1-2 hz - denies symptoms 2: static standing VORx1 vertical head movement 60 sec at 1-2 hz - denies symptoms (swaying but without LOB or reports of dizziness) 3: static seated VORx1 vertical head movement 60 sec at 1-2 hz - denies symptoms 4: tandem static standing 30 sec EO firm surface 5: tandem static standing EC x 22 sec without UE support firm surface Skilled Intervention: Skilled judgment used to assess appropriate program for balance and coordination activity. Education in proprioceptive/kinesthetic awareness during sitting, standing, and dynamic activities. Patient education as noted. Self-Chcf Management: 1: advised that pt. take inhaler as Rx'd for the benefit of improving airway dialation 2: discussed that symptoms that increase with exertion are to be discussed with slipman Skilled Intervention: Skilled judgment in the selection of proper modification for activity of daily living/home management based on clinical presentation, deficits, and needs. Reviewed patient specific diagnosis in relation to activities of daily living/home management. Activity progression based on professional judgement. Reviewed and educated patient on additions/changes for home program as noted above with an (*). Correct performance of home program was facilitated with verbal, visual, and tactile cueing. Billing Neuromuscular Re-Education Treatment Minutes: 21 Self-Care/Home Management Treatment Minutes: 5 Skilled Treatment Time Minutes (timed and untimed codes): 26 Total Session Time (minutes): 26 Session Start Time : 939 Session Stop Time : 1006 Michelle Gomez, PT [facility] 03-23-2024 Note HNO ID: [id number] Author: KATY GALDAMEZ APRN.[employer] Service: ? Author Type: Nurse Practitioner Type: Progress Notes Filed: 03/23/2024 17:15 Note Text: This is a 83 year old male who presents today with: Patient presents with: Recheck: 6 week follow up HISTORY OF PRESENT ILLNESS: Wilmer Morley is a 83 year old male. Patient presents with: Recheck: 6 week follow up Pt presents today for 6 week follow-up. He had PFTs completed, which showed. IMPRESSION: Spirometry indicates moderate obstruction. Positive bronchodilator response. Lung volumes (FRC and/or RV) are elevated indicating hyperinflation and air trapping He was started on spiriva and albuterol. Has noticed maybe a little better. Gets winded with activity, so going to try using the inhaler before activity to see if that helps prevent the SOB with exacerbation. He has problems with IBS. He currently takes 1/2 tab of an imodium daily. He does notice that symptoms have gotten a little worse as far as urgency after he eats. No hematochezia/melena. Questions if okay to increase the imodium to a full tablet daily. 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 Benign neoplasm of colon CKD (chronic kidney disease), stage III (HCC) 04/08/2018 Diverticulosis of colon (without mention of hemorrhage) Essential hypertension, benign 02/27/2010 Facial basal cell cancer 2009 Internal hemorrhoids without mention of complication Other acute embolism veins Other and unspecified hyperlipidemia hypertriglyeridemia Personal history of colonic polyps PAST SURGICAL HISTORY Procedure Laterality Date CATARACT EXTRACTION HX Left CATARACT SURGERY, COMPLEX 2009 R eye COLONOSCOPY FLX DX W/COLLJ SPEC WHEN PFRMD 08/05/2000 Colonoscopy COLONOSCOPY FLX DX W/COLLJ SPEC WHEN PFRMD 11/02/2002 Colonoscopy COLONOSCOPY FLX DX W/COLLJ SPEC WHEN PFRMD 01/29/2009 COLONOSCOPY FLX DX W/COLLJ SPEC WHEN PFRMD 02/24/2014 Colonoscopy COLONOSCOPY FLX DX W/COLLJ SPEC WHEN PFRMD 03/09/2018 MARCIAL Garcia-repeat 10 years ESOPHAGOGASTRODUODENOSCOPY TRANSORAL DIAGNOSTIC N/A 08/16/2020 [facility] basal cell to right above upper lip ALLERGIES Patient has no known allergies. MEDICATIONS Current Outpatient Medications Medication Sig tiotropium (SPIRIVA WITH HANDIHALER) 18 mcg inhalation capsule Inhale 1 capsule as instructed once daily. Use with handihaler. albuterol HFA (VENTOLIN HFA) 90 mcg/actuation inhaler Inhale 2 Puffs as instructed every 4 hours as needed for wheezing/shortness of breath. flecainide (TAMBOCOR) 100 mg tablet Take 1 tablet by mouth two times a day. doxazosin (CARDURA) 1 mg tablet Take 1 tablet by mouth daily at bedtime. warfarin (COUMADIN) 5 mg tablet 7.5 mg every Mon, Fri; 5 mg all other days atorvastatin (LIPITOR) 20 mg tablet Take 1 tablet by mouth once daily. amLODIPine (NORVASC) 5 mg tablet Take 5 mg by mouth once daily. lisinopril (ZESTRIL) 10 mg tablet Take 1 tablet by mouth once daily. sertraline (ZOLOFT) 100 mg tablet Take 1 tablet by mouth once daily. loperamide (ANTI-DIARRHEAL) 1 mg/5 mL solution Take 5 mL by mouth four times daily as needed. Take 1/2 tablet daily No current facility-administered medications for this visit. FAMILY HISTORY Problem Relation Age of Onset Heart Father CHF Heart Mother CHF Heart Brother [place] - rheumatic fever Cancer Brother gastric Asthma Sister Social History Tobacco Use Smoking status: Former Current packs/day: 0.00 Types: Cigarettes Start date: 02/24/2010 Quit date: 02/24/2011 Years since quittin.0 Smokeless tobacco: Never Substance Use Topics Alcohol use: Yes Alcohol/week: 2.3 standard drinks of alcohol Types: 1 Glasses of Wine (5oz), 1 Mixed Drinks per week Comment: one drink a day Drug use: No EXAM: BP 142/70 Pulse (!) 54 Resp 16 SpO2 96% PHYSICAL EXAM: General Appearance: Well appearing, alert, in no acute distress, well-hydrated, well nourished.. Skin: Skin color, texture, turgor normal, no suspicious rashes or lesions. Head: Normocephalic, no masses, lesions, tenderness or abnormalities. Eyes: Anicteric sclera. Pupils are equally round and reactive to light. Extraocular movements are intact. . Lungs:faint exp wheeze right upper field, otherwise CTA. Heart: RRR without murmur, gallop, or rubs. No ectopy. Neurologic: Gait normal. ASSESSMENT/PLAN: 1. Chronic obstructive pulmonary disease, unspecified COPD type (HCC) - ICD9: 496, ICD10: J44.9 (primary diagnosis) Some improvement. He is going to try adding albuterol before exertional activities. Will continue to monitor. May need to consider adding inhaled steroid. - TIOTROPIUM BROMIDE 18 MCG CAPSULE WITH INHALATION DEVICE - ALBUTEROL SULFATE HFA 90 MCG/ACTUATION AEROSOL INHALER 2. Irritable bowel syndrome with di (more content not included)... [facility] 03-23-2024 History of Present illness Narrative This is a 83 year old male who presents today with: Patient presents with: Recheck: 6 week follow up HISTORY OF PRESENT ILLNESS: Wilmer Morley is a 83 year old male. Patient presents with: Recheck: 6 week follow up Pt presents today for 6 week follow-up. He had PFTs completed, which showed. IMPRESSION: Spirometry indicates moderate obstruction. Positive bronchodilator response. Lung volumes (FRC and/or RV) are elevated indicating hyperinflation and air trapping He was started on spiriva and albuterol. Has noticed maybe a little better. Gets winded with activity, so going to try using the inhaler before activity to see if that helps prevent the SOB with exacerbation. He has problems with IBS. He currently takes 1/2 tab of an imodium daily. He does notice that symptoms have gotten a little worse as far as urgency after he eats. No hematochezia/melena. Questions if okay to increase the imodium to a full tablet daily. 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 Benign neoplasm of colon CKD (chronic kidney disease), stage III (HCC) 04/08/2018 Diverticulosis of colon (without mention of hemorrhage) Essential hypertension, benign 02/27/2010 Facial basal cell cancer 2009 Internal hemorrhoids without mention of complication Other acute embolism veins Other and unspecified hyperlipidemia hypertriglyeridemia Personal history of colonic polyps PAST SURGICAL HISTORY Procedure Laterality Date CATARACT EXTRACTION HX Left CATARACT SURGERY, COMPLEX 2009 R eye COLONOSCOPY FLX DX W/COLLJ SPEC WHEN PFRMD 08/05/2000 Colonoscopy COLONOSCOPY FLX DX W/COLLJ SPEC WHEN PFRMD 11/02/2002 Colonoscopy COLONOSCOPY FLX DX W/COLLJ SPEC WHEN PFRMD 01/29/2009 COLONOSCOPY FLX DX W/COLLJ SPEC WHEN PFRMD 02/24/2014 Colonoscopy COLONOSCOPY FLX DX W/COLLJ SPEC WHEN PFRMD 03/09/2018 [facility] ESOPHAGOGASTRODUODENOSCOPY TRANSORAL DIAGNOSTIC N/A 08/16/2020 [facility] PAST [facility] H[facility] OF 2010 basal cell to right above upper lip ALLERGIES Patient has no known allergies. MEDICATIONS Current Outpatient Medications Medication Sig tiotropium (SPIRIVA WITH HANDIHALER) 18 mcg inhalation capsule Inhale 1 capsule as instructed once daily. Use with handihaler. albuterol HFA (VENTOLIN HFA) 90 mcg/actuation inhaler Inhale 2 Puffs as instructed every 4 hours as needed for wheezing/shortness of breath. flecainide (TAMBOCOR) 100 mg tablet Take 1 tablet by mouth two times a day. doxazosin (CARDURA) 1 mg tablet Take 1 tablet by mouth daily at bedtime. warfarin (COUMADIN) 5 mg tablet 7.5 mg every Mon, Fri; 5 mg all other days atorvastatin (LIPITOR) 20 mg tablet Take 1 tablet by mouth once daily. amLODIPine (NORVASC) 5 mg tablet Take 5 mg by mouth once daily. lisinopril (ZESTRIL) 10 mg tablet Take 1 tablet by mouth once daily. sertraline (ZOLOFT) 100 mg tablet Take 1 tablet by mouth once daily. loperamide (ANTI-DIARRHEAL) 1 mg/5 mL solution Take 5 mL by mouth four times daily as needed. Take 1/2 tablet daily No current facility-administered medications for this visit. FAMILY HISTORY Problem Relation Age of Onset Heart Father CHF Heart Mother CHF Heart Brother [place] - rheumatic fever Cancer Brother gastric Asthma Sister Social History Tobacco Use Smoking status: Former Current packs/day: 0.00 Types: Cigarettes Start date: 02/24/2010 Quit date: 02/24/2011 Years since quittin.0 Smokeless tobacco: Never Substance Use Topics Alcohol use: Yes Alcohol/week: 2.3 standard drinks of alcohol Types: 1 Glasses of Wine (5oz), 1 Mixed Drinks per week Comment: one drink a day Drug use: No EXAM: BP 142/70 Pulse (!) 54 Resp 16 SpO2 96% PHYSICAL EXAM: General Appearance: Well appearing, alert, in no acute distress, well-hydrated, well nourished.. Skin: Skin color, texture, turgor normal, no suspicious rashes or lesions. Head: Normocephalic, no masses, lesions, tenderness or abnormalities. Eyes: Anicteric sclera. Pupils are equally round and reactive to light. Extraocular movements are intact. . Lungs:faint exp wheeze right upper field, otherwise CTA. Heart: RRR without murmur, gallop, or rubs. No ectopy. Neurologic: Gait normal. ASSESSMENT/PLAN: 1. Chronic obstructive pulmonary disease, unspecified COPD type (HCC) - ICD9: 496, ICD10: J44.9 (primary diagnosis) Some improvement. He is going to try adding albuterol before exertional activities. Will continue to monitor. May need to consider adding inhaled steroid. - TIOTROPIUM BROMIDE 18 MCG CAPSULE WITH INHALATION DEVICE - ALBUTEROL SULFATE HFA 90 MCG/ACTUATION AEROSOL INHALER 2. Irritable bowel syndrome with diarrhea - ICD9: 564.1, ICD10: K58.0 Okay to increase to a whole imodium daily. He can also try peppermint oil. Also discussed trial of cutting out dairy. Discussed treatment plan and patient voices understanding. Patient's questions answered appropriately. Medications and potential side effects were discussed and patient voices understanding. Return to the office as scheduled or as needed for worsening/no improvement. Katy Galdamez APRN.[employer] documented in this encounter [facility] 03-16-2024 Telephone encounter Note [facility] Ambulatory Pharmacy Anticoagulation Clinic Anticoagulation Episode Summary Anticoagulation Care Providers Provider Role Specialty Phone number Tien Serrano MD Referring Family Medicine [phone] Wilmer Morley is a 83 year old year old male patient being evaluated today for a Telemanagement visit. Patient is currently on the following anticoagulant(s) Warfarin. Labs PT INR (no units) Date Value 09/16/2021 2.9 09/02/2021 3.2 06/06/2021 2.5 biotel INR Home CoaguChek (no units) Date Value 03/16/2024 2.6 03/02/2024 2.3 02/17/2024 2.5 Hemoglobin (g/dL) Date Value 11/03/2023 13.9 03/14/2021 14.8 Hematocrit (%) Date Value 11/03/2023 42.3 03/14/2021 44.9 Platelet Count (k/uL) Date Value 11/03/2023 162 03/14/2021 191 Creatinine (mg/dL) Date Value 12/28/2023 1.09 11/11/2023 1.23 11/03/2023 1.21 03/14/2021 1.34 09/06/2020 1.27 08/06/2020 1.43 Bilirubin, Total (mg/dL) Date Value 11/03/2023 0.6 03/14/2021 1.1 ALT (U/L) Date Value 11/03/2023 35 03/14/2021 32 AST (U/L) Date Value 11/03/2023 33 03/14/2021 30 Estimated Creatinine Clearance: 60.4 mL/min (based on SCr of 1.09 mg/dL). ALLERGIES No Known Allergies 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: USP (current) use of anticoagulants Atrial fibrillation, unspecified type (hcc) History of dvt (deep vein thrombosis) Anticoagulation Episode Summary Current INR goal: 2.0-3.0 Assessment: INR result of 2.6 is therapeutic Plan: Current Warfarin Dosing As of 03/16/2024 Full warfarin instructions: 7.5 mg every Mon, Fri; 5 mg all other days Sent HowGood message Advised patient to continue current weekly dose as noted above Next home INR check scheduled on 03/30/2024 Patient advised to call the PAC with any medication changes, bleeding/bruising concerns, recent changes in vitamin k consumption, if any procedures are coming up, if they have been ill or in the hospital, and if they have missed any doses of warfarin. Bea Adan RPh Clinical Pharmacist, Pharmacy Anticoagulation Clinic Pharmacy Anticoagulation Clinic Pager: [phone]. [facility] 03-16-2024 Miscellaneous Notes [facility] Ambulatory Pharmacy Anticoagulation Clinic Anticoagulation Episode Summary Anticoagulation Care Providers Provider Role Specialty Phone number Tien Serrano MD Referring Family Medicine [phone] Wilmer Morley is a 83 year old year old male patient being evaluated today for a Telemanagement visit. Patient is currently on the following anticoagulant(s) Warfarin. Labs PT INR (no units) Date Value 09/16/2021 2.9 09/02/2021 3.2 06/06/2021 2.5 biotel INR Home CoaguChek (no units) Date Value 03/16/2024 2.6 03/02/2024 2.3 02/17/2024 2.5 Hemoglobin (g/dL) Date Value 11/03/2023 13.9 03/14/2021 14.8 Hematocrit (%) Date Value 11/03/2023 42.3 03/14/2021 44.9 Platelet Count (k/uL) Date Value 11/03/2023 162 03/14/2021 191 Creatinine (mg/dL) Date Value 12/28/2023 1.09 11/11/2023 1.23 11/03/2023 1.21 03/14/2021 1.34 09/06/2020 1.27 08/06/2020 1.43 Bilirubin, Total (mg/dL) Date Value 11/03/2023 0.6 03/14/2021 1.1 ALT (U/L) Date Value 11/03/2023 35 03/14/2021 32 AST (U/L) Date Value 11/03/2023 33 03/14/2021 30 Estimated Creatinine Clearance: 60.4 mL/min (based on SCr of 1.09 mg/dL). ALLERGIES No Known Allergies 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: long term (current) use of anticoagulants Atrial fibrillation, unspecified type (hcc) History of dvt (deep vein thrombosis) Anticoagulation Episode Summary Current INR goal: 2.0-3.0 Assessment: INR result of 2.6 is therapeutic Plan: Current Warfarin Dosing As of 03/16/2024 Full warfarin instructions: 7.5 mg every Mon, Fri; 5 mg all other days Sent HowGood message Advised patient to continue current weekly dose as noted above Next home INR check scheduled on 03/30/2024 Patient advised to call the PAC with any medication changes, bleeding/bruising concerns, recent changes in vitamin k consumption, if any procedures are coming up, if they have been ill or in the hospital, and if they have missed any doses of warfarin. Bea Adan RPh Clinical Pharmacist, Pharmacy Anticoagulation Clinic Pharmacy Anticoagulation Clinic Pager: [phone]. documented in this encounter [facility] 03-16-2024 Note HNO ID: [id number] Author: MICHELLE GOMEZ, PT Service: ? Author Type: Physical Therapist Type: Progress Notes Filed: 03/16/2024 11:05 Note Text: Episode Visit Count: 4 Therapist That Will Accept/Oversee The Plan Of Care: Michelle Gomez Start of Care Date: 02/02/24 Onset Date: 08/04/22 Plan of Care Certification Date: 03/16/24 Next Certification Due Date: 04/13/24 REHABILITATION AND SPORTS THERAPY PHYSICAL THERAPY PROGRESS REPORT PLAN OF CARE UPDATE: Assessment: Wilmer Morley demonstrates improvements in rising from a chair and walking in the community. The patient has progressed toward goals. Patient continues to present with impairments in ADL's, balance, overall function, and patient reported outcome measures that interfere with (continues to have difficulty with amb with eyes closed and tandem stepping) . Current prognosis is Good due to: current objective clinical presentation, good support system/ coping skills, within-session changes, positive past response to therapy, acuteness of condition, good overall health status . The patient will benefit from continued skilled therapy services to meet the updated goals for this plan of care as noted below. Goals for Episode of Care: created on 02/02/24 through 03/15/24 Goals updated on 03/16/2024. Patient will be independent with home exercise program and progression. -- HEP Patient will return to prior level of function with all activities of daily living with trace reports of dizziness. -- MET Patient will deny dizziness with walking and standing. -- MET Patient will demonstrate the ability to complete VOR in static and dynamic positions with trace report of dizziness. -- MET Patient Goals: improve balance, become less SOB with minimal exertion -- MET Time Frame for Goals and Treatment : 04/13/24 Patient Goals: improve balance, become less SOB with minimal exertion Planned Interventions, Frequency, and Duration: 1x/week, 4 weeks Total Number of Visits Planned: 4 Patient to be seen for Therapeutic exercise (52982), Neuromuscular re-education (34504), Manual therapy (85999), Self-residential management (68491), Gait Training (87748), Therapeutic activities (68935) PLAN FOR NEXT VISIT: NANDINI SUBJECTIVE: Pt. reports that he now takes a moment before he keeps walking upon standing. He is able to do work in the yard, although occasional bouts of light headedness upon standing after being stooped.. Patient Goals: improve balance, become less SOB with minimal exertion Functional Limitations: (continues to have difficulty with amb with eyes closed and tandem stepping) Vestibular Dizziness: No Pain: Pain Pain Level: 0 Post Treatment Pain Post Treatment Pain Level: 0 PROMIS Scales 02/29/2024 02/01/2024 Higher is Better Phys Func - Score 33 (moderate dysfunction) 40 (mild dysfunction) Phys Func - Percentile 4 16 Self-Eff Symptom - Score 44 (Average) 50 (Average) Self-Eff Symptom - Percentile 27 50 T-scores: mean of general population = 50. 5 points is clinically meaningfully difference Percentiles provide an indication of how the patient's score ranks in relation to the general population. Higher percentile rankings indicate better function/quality of life. 50th percentile is the average of the general population and indicates half of respondents had a worse score. OBJECTIVE MEASURES WITH LEVEL OF FUNCTION: TREATMENT: Neuromuscular Re-Education: 1: tandem walking in // bars 20' 6x 2: walking with eyes clsoed in // bars 20' 2x 3: walking with horizontal head movement // bars 20' 2x (no symptoms produced) 4: walking with vertical head movement // bars 20' 2x (no symptoms produced) 5: tandem stance 30 sec each LE lead Skilled Intervention: Skilled judgment used to assess appropriate program for balance and coordination activity. Education in proprioceptive/kinesthetic awareness during standing and dynamic activities. Ensured patient safety with use of // bars. Reviewed and educated patient on additions/changes for home program as noted above with an (*). Patient education as noted. Self-Chcf Management: 1: suggested hallway motion detector lights 2: advised use of AD on uneven ground or negociating obstacles if he is feeling off balance 3: advised slow walking and taking rest as needed, don't wait until he has SOB 4: discussed light headedness with exertion vs. seated rest with head movement not producing lightheadedness symptoms is suggestive that it is not peripheral vestibular involvement producing symptoms Skilled Intervention: Skilled judgment in the selection of proper modification for activity of daily living/home management based on clinical presentation, deficits, and needs. Educated the patient regarding recommendations and provided written instruction to facilitate compliance. Reviewed patient specific diagnosis in relation to activities of daily living/home manage (more content not included)... [facility] 03-16-2024 History of Present illness Narrative Images from the original note were not included. Episode Visit Count: 4 Therapist That Will Accept/Oversee The Plan Of Care: Michelle Gomez Start of Care Date: 02/02/24 Onset Date: 08/04/22 Plan of Care Certification Date: 03/16/24 Next Certification Due Date: 04/13/24 REHABILITATION AND SPORTS THERAPY PHYSICAL THERAPY PROGRESS REPORT PLAN OF CARE UPDATE: Assessment: Wilmer Morley demonstrates improvements in rising from a chair and walking in the community. The patient has progressed toward goals. Patient continues to present with impairments in ADL's, balance, overall function, and patient reported outcome measures that interfere with (continues to have difficulty with amb with eyes closed and tandem stepping) . Current prognosis is Good due to: current objective clinical presentation, good support system/ coping skills, within-session changes, positive past response to therapy, acuteness of condition, good overall health status . The patient will benefit from continued skilled therapy services to meet the updated goals for this plan of care as noted below. Goals for Episode of Care: created on 02/02/24 through 03/15/24 Goals updated on 03/16/2024. Patient will be independent with home exercise program and progression. -- HEP Patient will return to prior level of function with all activities of daily living with trace reports of dizziness. -- MET Patient will deny dizziness with walking and standing. -- MET Patient will demonstrate the ability to complete VOR in static and dynamic positions with trace report of dizziness. -- MET Patient Goals: improve balance, become less SOB with minimal exertion -- MET Time Frame for Goals and Treatment : 04/13/24 Patient Goals: improve balance, become less SOB with minimal exertion Planned Interventions, Frequency, and Duration: 1x/week, 4 weeks Total Number of Visits Planned: 4 Patient to be seen for Therapeutic exercise (40001), Neuromuscular re-education (83598), Manual therapy (28144), Self-residential management (27104), Gait Training (48959), Therapeutic activities (08566) PLAN FOR NEXT VISIT: NANDINI SUBJECTIVE: Pt. reports that he now takes a moment before he keeps walking upon standing. He is able to do work in the yard, although occasional bouts of light headedness upon standing after being stooped.. Patient Goals: improve balance, become less SOB with minimal exertion Functional Limitations: (continues to have difficulty with amb with eyes closed and tandem stepping) Vestibular Dizziness: No Pain: Pain Pain Level: 0 Post Treatment Pain Post Treatment Pain Level: 0 PROMIS Scales 02/29/2024 02/01/2024 Higher is Better Phys Func - Score 33 (moderate dysfunction) 40 (mild dysfunction) Phys Func - Percentile 4 16 Self-Eff Symptom - Score 44 (Average) 50 (Average) Self-Eff Symptom - Percentile 27 50 T-scores: mean of general population = 50. 5 points is clinically meaningfully difference Percentiles provide an indication of how the patient's score ranks in relation to the general population. Higher percentile rankings indicate better function/quality of life. 50th percentile is the average of the general population and indicates half of respondents had a worse score. OBJECTIVE MEASURES WITH LEVEL OF FUNCTION: TREATMENT: Neuromuscular Re-Education: 1: tandem walking in // bars 20' 6x 2: walking with eyes clsoed in // bars 20' 2x 3: walking with horizontal head movement // bars 20' 2x (no symptoms produced) 4: walking with vertical head movement // bars 20' 2x (no symptoms produced) 5: tandem stance 30 sec each LE lead Skilled Intervention: Skilled judgment used to assess appropriate program for balance and coordination activity. Education in proprioceptive/kinesthetic awareness during standing and dynamic activities. Ensured patient safety with use of // bars. Reviewed and educated patient on additions/changes for home program as noted above with an (*). Patient education as noted. Self-Chcf Management: 1: suggested hallway motion detector lights 2: advised use of AD on uneven ground or negociating obstacles if he is feeling off balance 3: advised slow walking and taking rest as needed, don't wait until he has SOB 4: discussed light headedness with exertion vs. seated rest with head movement not producing lightheadedness symptoms is suggestive that it is not peripheral vestibular involvement producing symptoms Skilled Intervention: Skilled judgment in the selection of proper modification for activity of daily living/home management based on clinical presentation, deficits, and needs. Educated the patient regarding recommendations and provided written instruction to facilitate compliance. Reviewed patient specific diagnosis in relation to activities of daily living/home management. Activity progression based on professional judgement. Reviewed and educated patient on additions/changes for home program as noted above with an (*). Billing Neuromuscular Re-Education Treatment Minutes: 20 Self-Care/Home Management Treatment Minutes: 18 Skilled Treatment Time Minutes (timed and untimed codes): 38 Total Session Time (minutes): 38 Session Start Time : 1022 Session Stop Time : 1100 Michelle Gomez PT documented in this encounter [facility] 03-03-2024 Telephone encounter Note [facility] Ambulatory Pharmacy Anticoagulation Clinic Anticoagulation Episode Summary Anticoagulation Care Providers Provider Role Specialty Phone number Tien Serrano MD Referring Family Medicine [phone] Wilmer Morley is a 83 year old year old male patient being evaluated today for a Telemanagement visit. Patient is currently on the following anticoagulant(s) Warfarin. Labs PT INR (no units) Date Value 09/16/2021 2.9 09/02/2021 3.2 06/06/2021 2.5 biotel INR Home CoaguChek (no units) Date Value 03/02/2024 2.3 02/17/2024 2.5 02/04/2024 2.4 Hemoglobin (g/dL) Date Value 11/03/2023 13.9 03/14/2021 14.8 Hematocrit (%) Date Value 11/03/2023 42.3 03/14/2021 44.9 Platelet Count (k/uL) Date Value 11/03/2023 162 03/14/2021 191 Creatinine (mg/dL) Date Value 12/28/2023 1.09 11/11/2023 1.23 11/03/2023 1.21 03/14/2021 1.34 09/06/2020 1.27 08/06/2020 1.43 Bilirubin, Total (mg/dL) Date Value 11/03/2023 0.6 03/14/2021 1.1 ALT (U/L) Date Value 11/03/2023 35 03/14/2021 32 AST (U/L) Date Value 11/03/2023 33 03/14/2021 30 Estimated Creatinine Clearance: 60.4 mL/min (based on SCr of 1.09 mg/dL). ALLERGIES No Known Allergies 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: USP (current) use of anticoagulants History of dvt (deep vein thrombosis) Anticoagulation Episode Summary Current INR goal: 2.0-3.0 Assessment: INR result of 2.3 is therapeutic Plan: Current Warfarin Dosing As of 03/03/2024 Full warfarin instructions: 7.5 mg every Mon, Fri; 5 mg all other days Sent HowGood message Advised patient to continue current weekly dose as noted above Next home INR check scheduled on 03/16/2024 Jinny Shah RPh Clinical Pharmacist, Pharmacy Anticoagulation Clinic Pharmacy Anticoagulation Clinic Pager: [phone]. [facility] 03-03-2024 Miscellaneous Notes [facility] Ambulatory Pharmacy Anticoagulation Clinic Anticoagulation Episode Summary Anticoagulation Care Providers Provider Role Specialty Phone number Tien Serrano MD Referring Family Medicine [phone] Wilmer Morley is a 83 year old year old male patient being evaluated today for a Telemanagement visit. Patient is currently on the following anticoagulant(s) Warfarin. Labs PT INR (no units) Date Value 09/16/2021 2.9 09/02/2021 3.2 06/06/2021 2.5 biotel INR Home CoaguChek (no units) Date Value 03/02/2024 2.3 02/17/2024 2.5 02/04/2024 2.4 Hemoglobin (g/dL) Date Value 11/03/2023 13.9 03/14/2021 14.8 Hematocrit (%) Date Value 11/03/2023 42.3 03/14/2021 44.9 Platelet Count (k/uL) Date Value 11/03/2023 162 03/14/2021 191 Creatinine (mg/dL) Date Value 12/28/2023 1.09 11/11/2023 1.23 11/03/2023 1.21 03/14/2021 1.34 09/06/2020 1.27 08/06/2020 1.43 Bilirubin, Total (mg/dL) Date Value 11/03/2023 0.6 03/14/2021 1.1 ALT (U/L) Date Value 11/03/2023 35 03/14/2021 32 AST (U/L) Date Value 11/03/2023 33 03/14/2021 30 Estimated Creatinine Clearance: 60.4 mL/min (based on SCr of 1.09 mg/dL). ALLERGIES No Known Allergies 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: long term (current) use of anticoagulants History of dvt (deep vein thrombosis) Anticoagulation Episode Summary Current INR goal: 2.0-3.0 Assessment: INR result of 2.3 is therapeutic Plan: Current Warfarin Dosing As of 03/03/2024 Full warfarin instructions: 7.5 mg every Mon, Fri; 5 mg all other days Sent HowGood message Advised patient to continue current weekly dose as noted above Next home INR check scheduled on 03/16/2024 Jinny Shah RPh Clinical Pharmacist, Pharmacy Anticoagulation Clinic Pharmacy Anticoagulation Clinic Pager: [phone]. documented in this encounter [facility] 02-29-2024 Note HNO ID: [id number] Author: MICHELLE GOMEZ PT Service: ? Author Type: Physical Therapist Type: Progress Notes Filed: 02/29/2024 13:13 Note Text: Episode Visit Count: 3 Therapist That Will Accept/Oversee The Plan Of Care: Michelle Gomez Start of Care Date: 02/02/24 Onset Date: 08/04/22 Plan of Care Certification Date: 02/02/24 Next Certification Due Date: 03/15/24 REHABILITATION AND SPORTS THERAPY PHYSICAL THERAPY TREATMENT NOTE ASSESSMENT: Wilmer Morley tolerated the session with decreased symptoms. He demonstrated difficulty with SLS as well as tandem stepping. Pt. Demonstrates no difficulty this visit with head movement while walking-- as long as the eyes are open. Pt. Has much more difficulty with eyes closed static activities but without LOB. The patient will continue to benefit from ongoing skilled physical therapy to progress toward set goals. PLAN FOR NEXT VISIT: Pt. to discuss corrlation between anxiety and wooziness. Continue balance training with emphasis on eyes closed activities, uneven surface, SLS, and dynamic tandem walking. Mentions at end of visit that he has taken his BP at home one instance when he felt woozy- the systolic pressure was in the 90s. However when he had it taken at the clinic - systolic was in the 120s. Pt. reports symptoms improve when he changes or removes himself from situations - provides example that his drove for him to [facility]. He has 1 drink a day and this also relieves symptoms. SUBJECTIVE: Pt. attributes his symptoms to anxiety. He notices that he feels better when he has a drink. He has been mindful to stay hydrated. Denies falls.Denies symptoms currenlty. Vestibular Dizziness: No Pain: Pain Pain Level: 0 Post Treatment Pain Post Treatment Pain Level: 0 OBJECTIVE MEASURES WITH LEVEL OF FUNCTION: TREATMENT: Neuromuscular Re-Education: 1: foam static standing 30 sec 2: foam romberg standing 30 sec EO 3: amb with vertical head movement 40' 2x 4: amb with horizontal head movement 40' 2x 5: static standing on foam EC 30 sec 6: static standing on foam EO vertical and horizontal head movement x 30 sec 7: tandem walking x 10 steps - semi - tandem steps demonstrated and no LOB 8: tandem static stance 30 sec each side, no UE support 9: SLS static standing 5x attempts each side - 2-3 sec with LOB Skilled Intervention: Skilled judgment used to assess appropriate program for balance and coordination activity. Education in proprioceptive/kinesthetic awareness during standing and dynamic activities. Ensured patient safety with use of gait belt. Reviewed and educated patient on additions/changes for home program as noted above with an (*). Patient education as noted. Self-Chcf Management: 1: discussed how balance deficits can be present with or without inner ear involvement 2: discussed how stress can cause dizziness 3: encouraged pt.to discuss concerns of wooziness associated with anxiety Skilled Intervention: Skilled judgment in the selection of proper modification for activity of daily living/home management based on clinical presentation, deficits, and needs. Provided written instruction for activities of daily living techniques to facilitate proper performance and compliance. Reviewed patient specific diagnosis in relation to activities of daily living/home management. Activity progression based on professional judgement. Moderate verbal cues for maintaining neutral spine alignment. Provided written instruction for home program to facilitate proper performance and compliance. Correct performance of home program was facilitated with verbal, visual, and tactile cueing. Billing Neuromuscular Re-Education Treatment Minutes: 30 Self-Care/Home Management Treatment Minutes: 10 Skilled Treatment Time Minutes (timed and untimed codes): 40 Total Session Time (minutes): 40 Session Start Time : 1226 Session Stop Time : 1306 Michelle Gomez, PT [facility] 02-29-2024 History of Present illness Narrative Episode Visit Count: 3 Therapist That Will Accept/Oversee The Plan Of Care: Michelle Gomez Start of Care Date: 02/02/24 Onset Date: 08/04/22 Plan of Care Certification Date: 02/02/24 Next Certification Due Date: 03/15/24 REHABILITATION AND SPORTS THERAPY PHYSICAL THERAPY TREATMENT NOTE ASSESSMENT: Wilmer Morley tolerated the session with decreased symptoms. He demonstrated difficulty with SLS as well as tandem stepping. Pt. Demonstrates no difficulty this visit with head movement while walking-- as long as the eyes are open. Pt. Has much more difficulty with eyes closed static activities but without LOB. The patient will continue to benefit from ongoing skilled physical therapy to progress toward set goals. PLAN FOR NEXT VISIT: Pt. to discuss corrlation between anxiety and wooziness. Continue balance training with emphasis on eyes closed activities, uneven surface, SLS, and dynamic tandem walking. Mentions at end of visit that he has taken his BP at home one instance when he felt woozy- the systolic pressure was in the 90s. However when he had it taken at the clinic - systolic was in the 120s. Pt. reports symptoms improve when he changes or removes himself from situations - provides example that his drove for him to [facility]. He has 1 drink a day and this also relieves symptoms. SUBJECTIVE: Pt. attributes his symptoms to anxiety. He notices that he feels better when he has a drink. He has been mindful to stay hydrated. Denies falls.Denies symptoms currenlty. Vestibular Dizziness: No Pain: Pain Pain Level: 0 Post Treatment Pain Post Treatment Pain Level: 0 OBJECTIVE MEASURES WITH LEVEL OF FUNCTION: TREATMENT: Neuromuscular Re-Education: 1: foam static standing 30 sec 2: foam romberg standing 30 sec EO 3: amb with vertical head movement 40' 2x 4: amb with horizontal head movement 40' 2x 5: static standing on foam EC 30 sec 6: static standing on foam EO vertical and horizontal head movement x 30 sec 7: tandem walking x 10 steps - semi - tandem steps demonstrated and no LOB 8: tandem static stance 30 sec each side, no UE support 9: SLS static standing 5x attempts each side - 2-3 sec with LOB Skilled Intervention: Skilled judgment used to assess appropriate program for balance and coordination activity. Education in proprioceptive/kinesthetic awareness during standing and dynamic activities. Ensured patient safety with use of gait belt. Reviewed and educated patient on additions/changes for home program as noted above with an (*). Patient education as noted. Self-Chcf Management: 1: discussed how balance deficits can be present with or without inner ear involvement 2: discussed how stress can cause dizziness 3: encouraged pt.to discuss concerns of wooziness associated with anxiety Skilled Intervention: Skilled judgment in the selection of proper modification for activity of daily living/home management based on clinical presentation, deficits, and needs. Provided written instruction for activities of daily living techniques to facilitate proper performance and compliance. Reviewed patient specific diagnosis in relation to activities of daily living/home management. Activity progression based on professional judgement. Moderate verbal cues for maintaining neutral spine alignment. Provided written instruction for home program to facilitate proper performance and compliance. Correct performance of home program was facilitated with verbal, visual, and tactile cueing. Billing Neuromuscular Re-Education Treatment Minutes: 30 Self-Care/Home Management Treatment Minutes: 10 Skilled Treatment Time Minutes (timed and untimed codes): 40 Total Session Time (minutes): 40 Session Start Time : 1226 Session Stop Time : 1306 Michelle Gomez PT documented in this encounter [facility] 02-18-2024 Telephone encounter Note [facility] Ambulatory Pharmacy Anticoagulation Clinic Anticoagulation Episode Summary Anticoagulation Care Providers Provider Role Specialty Phone number Tien Serrano MD Referring Family Medicine [phone] Wilmer Morley is a 83 year old year old male patient being evaluated today for a Telemanagement visit. Patient is currently on the following anticoagulant(s) Warfarin. Labs PT INR (no units) Date Value 09/16/2021 2.9 09/02/2021 3.2 06/06/2021 2.5 biotel INR Home CoaguChek (no units) Date Value 02/17/2024 2.5 02/04/2024 2.4 01/21/2024 2.2 Hemoglobin (g/dL) Date Value 11/03/2023 13.9 03/14/2021 14.8 Hematocrit (%) Date Value 11/03/2023 42.3 03/14/2021 44.9 Platelet Count (k/uL) Date Value 11/03/2023 162 03/14/2021 191 Creatinine (mg/dL) Date Value 12/28/2023 1.09 11/11/2023 1.23 11/03/2023 1.21 03/14/2021 1.34 09/06/2020 1.27 08/06/2020 1.43 Bilirubin, Total (mg/dL) Date Value 11/03/2023 0.6 03/14/2021 1.1 ALT (U/L) Date Value 11/03/2023 35 03/14/2021 32 AST (U/L) Date Value 11/03/2023 33 03/14/2021 30 Estimated Creatinine Clearance: 60.4 mL/min (based on SCr of 1.09 mg/dL). ALLERGIES No Known Allergies 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: USP (current) use of anticoagulants History of dvt (deep vein thrombosis) Anticoagulation Episode Summary Current INR goal: 2.0-3.0 Assessment: INR result of 2.5 is therapeutic Plan: Current Warfarin Dosing As of 02/18/2024 Full warfarin instructions: 7.5 mg every Mon, Fri; 5 mg all other days Sent HowGood message Advised patient to continue current weekly dose as noted above Next home INR check scheduled on 03/02/2024 Jinny Shah RPh Clinical Pharmacist, Pharmacy Anticoagulation Clinic Pharmacy Anticoagulation Clinic Pager: [phone]. [facility] 02-18-2024 Miscellaneous Notes [facility] Ambulatory Pharmacy Anticoagulation Clinic Anticoagulation Episode Summary Anticoagulation Care Providers Provider Role Specialty Phone number Tien Serrano MD Referring Family Medicine [phone] Wilmer Morley is a 83 year old year old male patient being evaluated today for a Telemanagement visit. Patient is currently on the following anticoagulant(s) Warfarin. Labs PT INR (no units) Date Value 09/16/2021 2.9 09/02/2021 3.2 06/06/2021 2.5 biotel INR Home CoaguChek (no units) Date Value 02/17/2024 2.5 02/04/2024 2.4 01/21/2024 2.2 Hemoglobin (g/dL) Date Value 11/03/2023 13.9 03/14/2021 14.8 Hematocrit (%) Date Value 11/03/2023 42.3 03/14/2021 44.9 Platelet Count (k/uL) Date Value 11/03/2023 162 03/14/2021 191 Creatinine (mg/dL) Date Value 12/28/2023 1.09 11/11/2023 1.23 11/03/2023 1.21 03/14/2021 1.34 09/06/2020 1.27 08/06/2020 1.43 Bilirubin, Total (mg/dL) Date Value 11/03/2023 0.6 03/14/2021 1.1 ALT (U/L) Date Value 11/03/2023 35 03/14/2021 32 AST (U/L) Date Value 11/03/2023 33 03/14/2021 30 Estimated Creatinine Clearance: 60.4 mL/min (based on SCr of 1.09 mg/dL). ALLERGIES No Known Allergies 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: USP (current) use of anticoagulants History of dvt (deep vein thrombosis) Anticoagulation Episode Summary Current INR goal: 2.0-3.0 Assessment: INR result of 2.5 is therapeutic Plan: Current Warfarin Dosing As of 02/18/2024 Full warfarin instructions: 7.5 mg every Mon, Fri; 5 mg all other days Sent HowGood message Advised patient to continue current weekly dose as noted above Next home INR check scheduled on 03/02/2024 Jinny Shah [facility] Clinical Pharmacist, Pharmacy Anticoagulation Clinic Pharmacy Anticoagulation Clinic Pager: [phone]. documented in this encounter [facility] 02-15-2024 History of Present illness Narrative Episode Visit Count: 2 Therapist That Will Accept/Oversee The Plan Of Care: Michelle Gomez Start of Care Date: 02/02/24 Onset Date: 08/04/22 Plan of Care Certification Date: 02/02/24 Next Certification Due Date: 03/15/24 REHABILITATION AND SPORTS THERAPY PHYSICAL THERAPY TREATMENT NOTE ASSESSMENT: Wilmer Morley tolerated the session with increased symptoms. He demonstrated difficulty with amb with horizontal head movements as well as vertical due to increased SOB, and fogginess reported. Pt. Did not become SOB with seated stepper warm up but did get SOB with negotiating stairs and dynamic balance activities. 22/30 score suggesting lower risk for falls. BP slightly elevated but possible drop in systolic BP from before and after seated stepper. BP increased slightly as expected following standing/walking balance activities. Symptoms of fogginess do reduce with seated rest. The patient will continue to benefit from ongoing skilled physical therapy to progress toward set goals. PLAN FOR NEXT VISIT: hold chart x1 mo. Pt. advised to schedule 1 week from today to determine if Rx'd medication is effective for fogginess. Return to PT for head movement with ambulation if head movement continues SUBJECTIVE: Not dizzinss. Not spinning. COPD and asthma dx per nurse. Rx'd an inhaler but [facility] is out of stock. Continues to get SOB with minimal exertion. Patient Goals: improve balance, become less SOB with minimal exertion Vestibular Dizziness: No Imbalance: Yes Imbalance triggered by: Walking Pain: Pain Pain Level: 0 OBJECTIVE MEASURES WITH LEVEL OF FUNCTION: Functional Gait Assessment Gait level surface : 3 - Normal- walks 20' no assist device, good speed, no imbalance, normal gait pattern Change in gait speed: 2 - Mild impairment- is able to change speed but demonstrates mild gait deviations or no gait deviations but unable to achieve a significant change in velocity, or uses an assistive device Gait and horizontal head turns: 2 - Mild impairment- performs R/L head turns smoothly with slight change in gait velocity, minor disruption to smooth gait path or uses assistive device Gait and vertical head turns: 2 - Mild impairment- performs up/ down head turns smoothly with slight change in gait velocity, minor disruption to smooth gait path or uses assistive device Gait and pivot: 3 - Normal- pivot turn safely within 3 sec, stops quickly, no loss of balance Step over obstacle: 3 - Normal- is able to steop over box without changing speed, no evidence of imbalance Gait with narrow base of support : 1 - Moderate impairment- ambulates 4-7 steps Gait with eyes closed : 2 - Mild impairment- walks 20' uses assist device, slower speed, mild gait deviation, deviates 6-10 outside of 12 walkway Ambulates backward : 2 - Mild impairment- walks 20', uses assist device, slower speed, mild gait deviations, deviates 6-10 outside 12 walk[address] Steps: 2 - Mild impairment- alternating feet, must use rail Functional Gait Assessment Total : 22 Vitals BP: 153/58 Pulse: 69 SpO2: 98 % Additional Vitals: Yes Intra Assessment 1: Heart Rate Intra 1, SpO2 Intra 1, BP Intra 1 Intra Heart Rate 1: 70 Intra BP 1: 126/57 Intra BP Position 1: Sitting Intra SpO2 1: 97 Post Assessment: Heart Rate Post, SpO2 Post, BP Post Post Heart Rate: 70 Post BP: 132/55 Post BP Position: Standing Post SpO2: 94 Vitals response to exercise: Yes TREATMENT: Therapeutic Exercise: 1: seated Scifit stepper, 5 min, 1:1 throughout, level 2, subjective collected (vitals taken before and after - no SOB throughout warm up, BP dropped) Skilled Intervention: Patient was educated in proper exercise technique and purpose for exercises. Reviewed and educated patient on additions/changes for home exercise program as above (*). Skilled judgment was used in selection of appropriate interventions. Provided written instruction for home exercise program to facilitate proper performance and compliance. Correct performance of therapeutic exercises was facilitated with verbal, visual, and tactile cuing. Patient education as noted. Neuromuscular Re-Education: 1: FGA no AD (symptoms produced by head movement vertical and horizontal, side to side head movement worse per pt. report) Skilled Intervention: Skilled judgment used to assess appropriate program for balance and coordination activity. Education in proprioceptive/kinesthetic awareness during dynamic activities. Reviewed and educated patient on additions/changes for home program as noted above with an (*). Patient education as noted. Self-Chcf Management: 1: discussed difference between symptoms that onset with exertion vs. head movement alone causing fogginess. Head movement provoking symptoms suggests it is possible that pt. may have a slight UVL but can also be secondary to respiratory inovovlement 2: discussed vitals with seated stepper and exercise WNL with the exception of slightly elevatred BP. Possible that first systolic BP reading at rest is innacuate due to no change in other vitals or symptoms, but advised pt. to monitor at home and take medications as Rx'd 3: discussed FGA results determine low risk for falling 4: discussed that pt. may continue balance traiing with head movement if Rx'd medication does not reduce fogginess with exertion, however, also resturn to physician regarding ineffectiveness of medication should this happen Skilled Intervention: Skilled judgment in the selection of proper modification for activity of daily living/home management based on clinical presentation, deficits, and needs. Activity progression based on professional judgement. Reviewed and educated patient on additions/changes for home program as noted above with an (*). Billing Therapeutic Exercise Treatment Minutes: 5 Neuromuscular Re-Education Treatment Minutes: 25 Self-Care/Home Management Treatment Minutes: 10 Skilled Treatment Time Minutes (timed and untimed codes): 40 Total Session Time (minutes): 40 Session Start Time : 923 Session Stop Time : 100 Michelle Gomez PT documented in this encounter [facility] 02-12-2024 Telephone encounter Note Pt called and is notified of providers results and instructions. Pt voices understanding. Lakisha Morales RN [facility] 02-12-2024 Miscellaneous Notes Pt called and is notified of providers results and instructions. Pt voices understanding. Lakisha Morales RN Pfts show moderate asthma/copd. Can cause breathing issues. Add albuterol prn and maintenance inhaler. To take daily documented in this encounter [facility] 02-12-2024 Telephone encounter Note Pfts show moderate asthma/copd. Can cause breathing issues. Add albuterol prn and maintenance inhaler. To take daily [facility] 02-11-2024 History of Present illness Narrative PULM FUNCTION: Provider: Tien Serrano MD Assisting Tech: Bhavya Montaño RPFT Spirometry w/BD: 1 LV - Box: 1 6 MW: 1 documented in this encounter [facility] 02-10-2024 History of Present illness Narrative Radiology Service Progress Note PATIENT NAME: Wilmer Morley DATE OF SERVICE: February 10, 2024 TIME: 12:44 PM PATIENT IDENTITY VERIFICATION COMPLETED USING TWO (2) IDENTIFIERS: Name and Date of confirmed by patient verbally. FALL SCREENING: Has the patient had 2 falls in the last year or 1 fall with injury or currently using an Ambulatory Assistive Device (Walker, Cane, Wheelchair, Crutches, etc.)? No PATIENT GENDER DATA: Male PATIENT RELEVANT IMPLANT DATA REVIEWED: Not Applicable PATIENT PRESENTS WITH AN IMPLANTABLE OR ATTACHED CENTRAL OFFICE INSTALLER: No RADIOLOGY DEPARTMENT: General X-ray: Exam(s) Completed: Chest X-Ray PERIPHERAL IV DATA: Not applicable SIGNED BY: RT Duc(R) February 10, 2024 12:44 PM documented in this encounter [facility] 02-10-2024 History of Present illness Narrative Patient presents with: Follow Up HPI: Patient presents today for office visit for follow up. Followed up with PT for some balance concerns. Saw PT on 02/02/24. Nothing found inner ear. Plan is for balance training. To complete about 6 sessions. Will continue with home exercises. Denies dizziness. States nothing spins. Refers to feeling like he's had too much to drink. Has been monitoring his BP and HR. Hr often in the 50's which we discussed can be a normal finding. His slipman felt his symptoms were due to deconditioning. No headache, numbness or weakness. No vision or speech issues. Has not yet started back at [employer]. Trying to walk in his neighborhood. Still gets short of breath. Rare cough. No fever. Consider chest x-ray and PFT Note was copied and pasted, without alteration from: Had noted dizziness and balance last time. Offered neuro work up etc. He wanted to reassess today. No true vertigo. No headache or numbness or weakness. No vision or speech issues. No burning in the feet. See Stress echo: normal electrocardiographic submax stress test, no anginal symptoms or ST segment changes. Baseline rhythm remained sinus. Bifascicular block with right bundle left axis. O2 sat 92% which is slightly low. Limited valvular interrogation demonstrated at least moderate tricuspid regurgitation and moderate severe pulmonary hypertension at 68 mmHg in addition to at least mild mitral regurgitation. Dyspnea and exercise limitations may be due to valvular insufficiency, moderate pulmonary hypertension, deconditioning and possible component of intrinsic lung disease with relatively low O2 saturation at 92%. Follows with Cardiology, Dr. Head. Recent OV on 12/08/23. Added Amlodipine 5 mg daily. Monitors BP at home. Denies chest pain. No new or worsening shortness of breath. Denies palpitations and syncopal episodes. Denies edema. Dr. Head mentioned his shortness of breath and dizziness could very well be related to be being out of shape. Patient is going to start back at [employer]. Followed with ENT, Dr. Hernandez. Was able to removed impacted cerumen, left ear. Feeling of being off balance still comes and goes. Refers to it maybe being a little better. MEDICATIONS: Current Outpatient Medications Medication Sig flecainide (TAMBOCOR) 100 mg tablet Take 1 tablet by mouth two times a day. doxazosin (CARDURA) 1 mg tablet Take 1 tablet by mouth daily at bedtime. warfarin (COUMADIN) 5 mg tablet 7.5 mg every Mon, Fri; 5 mg all other days atorvastatin (LIPITOR) 20 mg tablet Take 1 tablet by mouth once daily. amLODIPine (NORVASC) 5 mg tablet Take 5 mg by mouth once daily. lisinopril (ZESTRIL) 10 mg tablet Take 1 tablet by mouth once daily. sertraline (ZOLOFT) 100 mg tablet Take 1 tablet by mouth once daily. loperamide (ANTI-DIARRHEAL) 1 mg/5 mL solution Take 5 mL by mouth four times daily as needed. Take 1/2 tablet daily No current facility-administered medications for this visit. ALLERGIES: ALLERGIES No Known Allergies PAST MEDICAL HISTORY No date: Anxiety No date: Atrial fibrillation (HCC) 2021: 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 No date: Benign neoplasm of colon 04/08/2018: CKD (chronic kidney disease), stage III (HCC) No date: Diverticulosis of colon (without mention of hemorrhage) 02/27/2010: Essential hypertension, benign 2009: Facial basal cell cancer No date: Internal hemorrhoids without mention of complication No date: Other acute embolism veins No date: Other and unspecified hyperlipidemia Comment: hypertriglyeridemia No date: Personal history of colonic polyps PAST SURGICAL HISTORY No date: CATARACT EXTRACTION HX; Left 2009: CATARACT SURGERY, COMPLEX Comment: R eye 08/05/2000: COLONOSCOPY FLX DX W/COLLJ SPEC WHEN PFRMD Comment: Colonoscopy 11/02/2002: COLONOSCOPY FLX DX W/COLLJ SPEC WHEN PFRMD Comment: Colonoscopy 01/29/2009: COLONOSCOPY FLX DX W/COLLJ SPEC WHEN PFRMD 02/24/2014: COLONOSCOPY FLX DX W/COLLJ SPEC WHEN PFRMD Comment: Colonoscopy 03/09/2018: COLONOSCOPY FLX DX W/COLLJ SPEC WHEN PFRMD Comment: MARCIAL Garcia-repeat 10 years 08/16/2020: ESOPHAGOGASTRODUODENOSCOPY TRANSORAL DIAGNOSTIC; N/A Comment: MARCIAL Garcia 2010: PAST SURGICAL HISTORY OF Comment: basal cell to right above upper lip FAMILY HISTORY Problem Relation Age of Onset Heart Father CHF Heart Mother CHF Heart Brother [place] - rheumatic fever Cancer Brother gastric Asthma Sister Social History Tobacco Use Smoking status: Former Current packs/day: 0.00 Types: Cigarettes Start date: 02/24/2010 Quit date: 02/24/2011 Years since quittin.9 Smokeless tobacco: Never Substance Use Topics Alcohol use: Yes Alcohol/week: 2.3 standard drinks of alcohol Types: 1 Glasses of Wine (5oz), 1 Mixed Drinks per week Comment: one drink a day Drug use: No Reviewed current medications, allergies, past medical history, surgical history, family history and social history today. REVIEW OF SYSTEMS All other reviewed and negative other than HPI. HEALTH MAINTENANCE: Reviewed health maintenance issues today and recommended the following in detail. Covid-19 Vaccine( season) due on 02/07/2024 Influenza Vaccine(1) due on 02/07/2024 VITALS: BP 144/56 Pulse 72 Ht 180.3 cm (5' 11) Wt 94.8 kg (209 lb) SpO2 96% BMI 29.15 kg/m Last 4 Encounter Wt Readings: Date: Wt: 12/29/2023 96.6 kg (213 lb) 11/11/2023 94.3 kg (208 lb) 05/04/2023 91.6 kg (202 lb) 03/27/2023 92.5 kg (204 lb) PHYSICAL EXAMINATION: General appearance: Well appearing, alert, in no acute distress, well-hydrated, well nourished. Skin: Skin color, texture, turgor normal, no suspicious rashes or lesions Head: Normocephalic, no masses, lesions, tenderness or abnormalitie Lungs: Lungs clear to auscultation. No wheezing, rhonchi, rales Heart: RRR without murmur, gallop, or rubs. No ectopy Abdomen: Normal abdominal exam, Abdomen soft, non-tender. Bowel sounds normal. No masses, organomegaly Extremities: No deformities, edema, skin discoloration, clubbing or cyanosis. Good capillary refill. Musculoskeletal: No joint swelling, deformity, or tenderness Peripheral pulses: Normal Neuro: Gait normal. Reflexes normal and symmetric. Sensation grossly intact. ASSESSMENT/PLAN: 1. SOB (shortness of breath) - ICD9: 786.05, ICD10: R06.02 (primary diagnosis) - willing to do pulmonary work up. Consider seeing pulmonary. - SPIROMETRY WITH DILATOR IF OBSTRUCTED - LUNG VOLUMES - SIX MINUTE WALK 2. Lightheadedness - ICD9: 780.4, ICD10: R42 - continue therapy. Declines neuro arnie and MRI. Red flags for re-assessment reviewed with patient in detail. - SPIROMETRY WITH DILATOR IF OBSTRUCTED - LUNG VOLUMES - XR CHEST 2V FRONTAL/LAT - SIX MINUTE WALK 3. Lightheaded - ICD9: 780.4, ICD10: R42 As above. Continue to follow with cardiology Tien Serrano MD RTO in six weeks documented in this encounter [facility] 02-02-2024 History of Present illness Narrative Images from the original note were not included. Episode Visit Count: 1 Therapist That Will Accept/Oversee The Plan Of Care: Michelle Gomez Start of Care Date: 02/02/24 Onset Date: 08/04/22 Plan of Care Certification Date: 02/02/24 Next Certification Due Date: 03/15/24 Patient Identified by Name and Date of : Yes REHABILITATION AND SPORTS THERAPY PHYSICAL THERAPY EVALUATION PLAN OF CARE: Assessment: Wilmer Morley presents with diagnosis of lightheaded and BPPV that interferes with walking in the community, rising from a chair . He presents with impairments in ADL's, balance, gait, independence in exercise, joint mobility, overall function, patient reported outcome measures, and symptom management. PROMIS (Patient-Reported Outcomes Measurement Information System) scores were reviewed and identified as a rehabilitation concern. Prognosis for therapy is Good due to: current objective clinical presentation, good support system/ coping skills, within-session changes, positive past response to therapy, acuteness of condition, good overall health status . He will benefit from skilled therapy services to meet the goals established for this plan of care as noted below. Goals for Episode of Care: created on 02/02/24 through 03/15/24 Patient will be independent with home exercise program and progression. Patient will return to prior level of function with all activities of daily living with trace reports of dizziness. Patient will deny dizziness with walking and standing. Patient will demonstrate the ability to complete VOR in static and dynamic positions with trace report of dizziness. Patient Goals: improve balance, become less SOB with minimal exertion Planned Interventions, Frequency, and Duration: Current Frequency: 1x/week Duration: 6 weeks Total Number of Visits Planned: 6 Planned Treatment Interventions: Therapeutic exercise (23319), Neuromuscular re-education (89936), Manual therapy (83004), Therapeutic activities (36011), Self-residential management (20293), Gait Training (33263), General Conditioning PLAN FOR NEXT VISIT: balance training FGA. Take BP. Patient demonstrates good understanding of plan of care and treatment. The above goals and plan of care were discussed and agreed upon by patient/family. SUBJECTIVE: for lightheadedness longer than a year. Pt. states it's not dizziness. SOB upon minimal exertion and lightheadedness upon standing that clears with rest. Never has symtoms at seated rest. Limits hims from working out. Denies symptoms with bending, laying down, or turning. Never feels lightheaded with walking, only SOB.Pt. is being treated with a medication for anxiety, but does not correlate stressful situations with symptoms consistently. Denies numbness, tingling, weakness, vision changes, dizziness, or vertigo. Mentions cardiovascular hx. Some symptoms he needs to mention to physician yet. Patient Goals: improve balance, become less SOB with minimal exertion Functional Limitations: walking in the community, rising from a chair Prior Level of Function: Independent without limitations Intake Information: Prescription present Previous Treatment: Physical Therapy Falls Interview: No positive findings with falls interview Concussion History of Concussion: No Vestibular Symptoms present for: years Symptom onset: gradual Dizziness: No Imbalance: Yes Imbalance triggered by: Walking (standing) Imbalance Comments: intermittent, not daily Fall Assessment: No falls Nausea: no Motion Sickness: None Headache: No Neck Symptoms: No Jaw Symptoms: No Ear Symptoms: No Hearing Changes: No recent changes Tinnitus: No recent changes Sleep Affected by Symptoms: pain keeps from falling asleep, not affected by pain History of Syncope: Yes (years ago, pt. passed out 2x) History of Migraine: No Denies: neurological complaints, tremors, focal weakness, headaches, paresthesia, neuropathy, visual changes, dizziness Pain: Pain Pain Level: 0 Post Treatment Pain Post Treatment Pain Level: 0 PROMIS Scales 02/01/2024 Higher is Better Phys Func - Score 40 (mild dysfunction) Phys Func - Percentile 16 Self-Eff Symptom - Score 50 (Average) Self-Eff Symptom - Percentile 50 T-scores: mean of general population = 50. 5 points is clinically meaningfully difference Percentiles provide an indication of how the patient's score ranks in relation to the general population. Higher percentile rankings indicate better function/quality of life. 50th percentile is the average of the general population and indicates half of respondents had a worse score. OBJECTIVE MEASURES WITH LEVEL OF FUNCTION: Posture / Alignment Posture: Forward head, Increased thoracic kyphosis Oculomotor Testing Fixation Present Ocular ROM: WNL Spontaneous Nystagmus: No nystagmus Gaze Evoked Nystagmus: Not Present Smooth pursuit: Horizontal, Vertical and Diagonal all WNL Saccadic eye movements: Horizontal, vertical and oblique all WNL. Head Thrusts: Negative VOR cancelation: Negative Convergence (Distance): WNL VOR to slow head movements: Negative X1 Viewing - Horizontal: negative - but minimal lightheadedness reported X1 Viewing - Vertical: negative - but minimal lightheadedness reported Cross Cover: Negative Oculomotor Testing Fixation Removed Spontaneous Nystagmus: No nystagmus Gaze Evoked Nystagmus: Not present Head Shake: Negative (negative - but minimal lightheadedness reported) Tragal Pressure: negative Positional Testing Positional Test Comments: TBA - pt. describes only feeling breif lightheadedness with sitting up Mobility Sit To Stand: Independent (without symptoms) Stand To Sit: Independent (without symptoms) Gait Gait: Independent Gait Distance (feet): 100 Gait Device: None Gait Observation: unremarkable, but minimal SOB upon entering exam room, resolves within a minute of rest Balance Static Standing Balance: Narrow Base of Support, Semi/Partial Tandem Stance, Tandem Stance, Single Leg Stance Narrow Base of Support: 30 Semi/Partial Tandem Stance: 30 Tandem Stance: 30 Education: Education Learning Preferences: Demonstration, Explanation, Performance, Printed Materials Barriers: None Learning/educational needs: Plan of Care, Home exercise program, Gait Training Education Provided: Yes, see treatment interventions for education provided Education Provided To: Patient Education Mode/Type: Demonstration, Explanation/Discussion, Performance, Literature/Printed Materials Response to Education/Teach Back: States/Identifies, Return Demonstration TREATMENT: PT Treatment Interventions: Therapeutic Exercise, Self-Chcf Management Evaluation Self-Chcf Management: 1: discussed negative vestibular testing with and without fixation 2: discussed how holding the breath may be causing lightheadedness - encouraged to be mindful and correct as necessary 3: encouraged pt. to mention all symptoms to physician regarding heart concerns 4: discussed how lightheadedness can be a symptom that overlaps other etiologies 5: discussed the benefit of balance training and PLB Skilled Intervention: Skilled judgment in the selection of proper modification for activity of daily living/home management based on clinical presentation, deficits, and needs. Reviewed patient specific diagnosis in relation to activities of daily living/home management. Activity progression based on professional judgement. Reviewed and educated patient on additions/changes for home program as noted above with an (*). Billing * Evaluation Moderate Complexity: 1 Unit Self-Care/Home Management Treatment Minutes: 15 Skilled Treatment Time Minutes (timed and untimed codes): 45 Total Session Time (minutes): 45 Session Start Time : 0930 Session Stop Time : 1015 Michelle oGmez PT documented in this encounter [facility] 01-30-2024 Telephone encounter Note Rx pending to correct pharmacy. Tra Foss LPN [facility] 01-30-2024 Miscellaneous Notes Rx pending to correct pharmacy. Tra Foss LPN documented in this encounter [facility] 01-29-2024 Telephone encounter Note The following approved medication requests have been transmitted electronically. Requested Prescriptions Pending Prescriptions Disp Refills flecainide (TAMBOCOR) 100 mg tablet 180 tablet 3 Sig: Take 1 tablet by mouth two times a day. Alejandrina Quigley APRN.CNP [facility] 01-29-2024 Miscellaneous Notes The following approved medication requests have been transmitted electronically. Requested Prescriptions Pending Prescriptions Disp Refills flecainide (TAMBOCOR) 100 mg tablet 180 tablet 3 Sig: Take 1 tablet by mouth two times a day. Alejandrina Quigley APRN.CNP Prescription Refill Information The patient has been identified by name and date of : Yes Caregiver verified no other encounters exist for this prescription request: Yes Caregiver confirmed with patient/requestor that no other refills are due, in the near future, with this provider at this time: Yes The last office visit in the department: 12/29/23 Does the patient have a future office visit with this provider/department: Yes Requested Prescriptions Pending Prescriptions Disp Refills flecainide (TAMBOCOR) 100 mg tablet 180 tablet 3 Sig: Take 1 tablet by mouth two times a day. Velma Gonzalez LPN January 29, 2024 10:20 AM documented in this encounter [facility] 01-29-2024 Telephone encounter Note Prescription Refill Information The patient has been identified by name and date of : Yes Caregiver verified no other encounters exist for this prescription request: Yes Caregiver confirmed with patient/requestor that no other refills are due, in the near future, with this provider at this time: Yes The last office visit in the department: 12/29/23 Does the patient have a future office visit with this provider/department: Yes Requested Prescriptions Pending Prescriptions Disp Refills flecainide (TAMBOCOR) 100 mg tablet 180 tablet 3 Sig: Take 1 tablet by mouth two times a day. Velma Gonzalez LPN January 29, 2024 10:[address] [facility] 01-21-2024 Telephone encounter Note [facility] Ambulatory Pharmacy Anticoagulation Clinic Anticoagulation Episode Summary Anticoagulation Care Providers Provider Role Specialty Phone number Tien Serrano MD Referring Family Medicine [phone] Wilmer Morley is a 83 year old year old male patient being evaluated today for a Telemanagement visit. Patient is currently on the following anticoagulant(s) Warfarin. Labs PT INR (no units) Date Value 09/16/2021 2.9 09/02/2021 3.2 06/06/2021 2.5 biotel INR Home CoaguChek (no units) Date Value 01/21/2024 2.2 01/03/2024 2.0 12/17/2023 3.0 Hemoglobin (g/dL) Date Value 11/03/2023 13.9 03/14/2021 14.8 Hematocrit (%) Date Value 11/03/2023 42.3 03/14/2021 44.9 Platelet Count (k/uL) Date Value 11/03/2023 162 03/14/2021 191 Creatinine (mg/dL) Date Value 12/28/2023 1.09 11/11/2023 1.23 11/03/2023 1.21 03/14/2021 1.34 09/06/2020 1.27 08/06/2020 1.43 Bilirubin, Total (mg/dL) Date Value 11/03/2023 0.6 03/14/2021 1.1 ALT (U/L) Date Value 11/03/2023 35 03/14/2021 32 AST (U/L) Date Value 11/03/2023 33 03/14/2021 30 Estimated Creatinine Clearance: 61.9 mL/min (based on SCr of 1.09 mg/dL). ALLERGIES No Known Allergies 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: USP (current) use of anticoagulants History of dvt (deep vein thrombosis) Anticoagulation Episode Summary Current INR goal: 2.0-3.0 Assessment: INR result of 2.2 is therapeutic Plan: Current Warfarin Dosing As of 01/21/2024 Full warfarin instructions: 7.5 mg every Mon, Fri; 5 mg all other days Sent HowGood message Advised patient to continue current weekly dose as noted above Next home INR check scheduled on 02/04/2024 Jinny Shah RPh Clinical Pharmacist, Pharmacy Anticoagulation Clinic Pharmacy [facility] Pager: [phone]. [facility] 01-21-2024 Miscellaneous Notes [facility] Ambulatory Pharmacy Anticoagulation Clinic Anticoagulation Episode Summary Anticoagulation Care Providers Provider Role Specialty Phone number Tien Serrano MD Referring Family Medicine [phone] Wilmer Morley is a 83 year old year old male patient being evaluated today for a Telemanagement visit. Patient is currently on the following anticoagulant(s) Warfarin. Labs PT INR (no units) Date Value 09/16/2021 2.9 09/02/2021 3.2 06/06/2021 2.5 biotel INR Home CoaguChek (no units) Date Value 01/21/2024 2.2 01/03/2024 2.0 12/17/2023 3.0 Hemoglobin (g/dL) Date Value 11/03/2023 13.9 03/14/2021 14.8 Hematocrit (%) Date Value 11/03/2023 42.3 03/14/2021 44.9 Platelet Count (k/uL) Date Value 11/03/2023 162 03/14/2021 191 Creatinine (mg/dL) Date Value 12/28/2023 1.09 11/11/2023 1.23 11/03/2023 1.21 03/14/2021 1.34 09/06/2020 1.27 08/06/2020 1.43 Bilirubin, Total (mg/dL) Date Value 11/03/2023 0.6 03/14/2021 1.1 ALT (U/L) Date Value 11/03/2023 35 03/14/2021 32 AST (U/L) Date Value 11/03/2023 33 03/14/2021 30 Estimated Creatinine Clearance: 61.9 mL/min (based on SCr of 1.09 mg/dL). ALLERGIES No Known Allergies 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: long term (current) use of anticoagulants History of dvt (deep vein thrombosis) Anticoagulation Episode Summary Current INR goal: 2.0-3.0 Assessment: INR result of 2.2 is therapeutic Plan: Current Warfarin Dosing As of 01/21/2024 Full warfarin instructions: 7.5 mg every Mon, Fri; 5 mg all other days Sent HowGood message Advised patient to continue current weekly dose as noted above Next home INR check scheduled on 02/04/2024 Jinny Shah RP Clinical Pharmacist, Pharmacy Anticoagulation Clinic Pharmacy Anticoagulation Clinic Pager: [phone]. documented in this encounter [facility] 01-11-2024 Telephone encounter Note Prescription Refill Information The patient has been identified by name and date of : Yes Caregiver verified no other encounters exist for this prescription request: Yes Caregiver confirmed with patient/requestor that no other refills are due, in the near future, with this provider at this time: Yes The last office visit in the department: 12/29/2023 Does the patient have a future office visit with this provider/department: Yes Requested Prescriptions Pending Prescriptions Disp Refills doxazosin (CARDURA) 1 mg tablet 90 tablet 3 Sig: Take 1 tablet by mouth daily at bedtime. warfarin (COUMADIN) 5 mg tablet 90 tablet 1 Si.5 mg every Mon, Fri; 5 mg all other days atorvastatin (LIPITOR) 20 mg tablet 90 tablet 1 Sig: Take 1 tablet by mouth once daily. Alejandrina Rebollar LPN January 11, 2024 11:[address] [facility] 01-11-2024 Miscellaneous Notes Prescription Refill Information The patient has been identified by name and date of : Yes Caregiver verified no other encounters exist for this prescription request: Yes Caregiver confirmed with patient/requestor that no other refills are due, in the near future, with this provider at this time: Yes The last office visit in the department: 12/29/2023 Does the patient have a future office visit with this provider/department: Yes Requested Prescriptions Pending Prescriptions Disp Refills doxazosin (CARDURA) 1 mg tablet 90 tablet 3 Sig: Take 1 tablet by mouth daily at bedtime. warfarin (COUMADIN) 5 mg tablet 90 tablet 1 Si.5 mg every Mon, Fri; 5 mg all other days atorvastatin (LIPITOR) 20 mg tablet 90 tablet 1 Sig: Take 1 tablet by mouth once daily. Alejandrina Rebollar LPN January 11, 2024 11:10 AM documented in this encounter [facility] 01-05-2024 Telephone encounter Note PAC received faxed request for office/clinical notes to continue home INR meter enrollment. Fax has been scanned into patient's chart and are located under 'Scanned Documents'. Will fax requested documents to [facility], as requested. Lakisha Avila CPhT (Button Machine Operator) Pharmacy Anticoagulation Clinic [facility] 01-05-2024 Miscellaneous Notes PAC received faxed request for office/clinical notes to continue home INR meter enrollment. Fax has been scanned into patient's chart and are located under 'Scanned Documents'. Will fax requested documents to [facility], as requested. Lakisha Avila CPhT (Button Machine Operator) Pharmacy Anticoagulation Clinic documented in this encounter [facility] 12-29-2023 History of Present illness Narrative Patient presents with: Follow Up HPI: Patient presents today for office visit for follow up. Had noted dizziness and balance last time. Offered neuro work up etc. He wanted to reassess today. No true vertigo. No headache or numbness or weakness. No vision or speech issues. No burning in the feet. See Stress echo: normal electrocardiographic submax stress test, no anginal symptoms or ST segment changes. Baseline rhythm remained sinus. Bifascicular block with right bundle left axis. O2 sat 92% which is slightly low. Limited valvular interrogation demonstrated at least moderate tricuspid regurgitation and moderate severe pulmonary hypertension at 68 mmHg in addition to at least mild mitral regurgitation. Dyspnea and exercise limitations may be due to valvular insufficiency, moderate pulmonary hypertension, deconditioning and possible component of intrinsic lung disease with relatively low O2 saturation at 92%. Follows with Cardiology, Dr. Head. Recent OV on 12/08/23. Added Amlodipine 5 mg daily. Monitors BP at home. Denies chest pain. No new or worsening shortness of breath. Denies palpitations and syncopal episodes. Denies edema. Dr. Head mentioned his shortness of breath and dizziness could very well be related to be being out of shape. Patient is going to start back at [employer]. Followed with ENT, Dr. Hernandez. Was able to removed impacted cerumen, left ear. Feeling of being off balance still comes and goes. Refers to it maybe being a little better. Note was copied and pasted, without alteration from: previous ov: HTN: Continues on Lisinopril 10 mg daily Doxazosin 1 mg daily Monitors BP at home occ. Are good at home. Stable. Denies chest pain. Increased shortness of breath over the last 6 months. Only with exertion. Denies headaches. Occasionally feels off balance. Refers to feeling when you've had too much to drink. States it's not dizziness and that the feeling is hard to describe. Has been there for years. Maybe just a little more frequently. Had a ct scan once for syncope when he had symptoms. Told cardiology about it on Thursday and he scheduled an echo and stress test. Is on doxazosin which might contribute but symptoms preceded it. Happens when he is upright. No new headaches. No tinnitus. No new numbness or weakness. No falls. No true vertigo. Denies palpitations. Does have Hx of A-fib. No recent episodes. Follows with cardiology. No recent syncopal episodes. No new or worsening edema. Always with some swelling to left leg due to Hx of DVT. Continues on Warfarin. Sees Dr Head. Coumadin is managed by pharmacy Bun is up a little. Discussed that it could help. MEDICATIONS: Current Outpatient Medications Medication Sig amLODIPine (NORVASC) 5 mg tablet Take 5 mg by mouth once daily. lisinopril (ZESTRIL) 10 mg tablet Take 1 tablet by mouth once daily. sertraline (ZOLOFT) 100 mg tablet Take 1 tablet by mouth once daily. warfarin (COUMADIN) 5 mg tablet 7.5 mg every Mon, Fri; 5 mg all other days atorvastatin (LIPITOR) 20 mg tablet Take 1 tablet by mouth once daily. doxazosin (CARDURA) 1 mg tablet Take 1 tablet by mouth daily at bedtime. flecainide (TAMBOCOR) 100 mg tablet Take 1 tablet by mouth twice daily. loperamide (ANTI-DIARRHEAL) 1 mg/5 mL solution Take 5 mL by mouth four times daily as needed. Take 1/2 tablet daily No current facility-administered medications for this visit. 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 Benign neoplasm of colon CKD (chronic kidney disease), stage III (HCC) 04/08/2018 Diverticulosis of colon (without mention of hemorrhage) Essential hypertension, benign 02/27/2010 Facial basal cell cancer 2009 Internal hemorrhoids without mention of complication Other acute embolism veins Other and unspecified hyperlipidemia hypertriglyeridemia Personal history of colonic polyps PAST SURGICAL HISTORY Procedure Laterality Date CATARACT EXTRACTION HX Left CATARACT SURGERY, COMPLEX 2009 R eye COLONOSCOPY FLX DX W/COLLJ SPEC WHEN PFRMD 08/05/2000 Colonoscopy COLONOSCOPY FLX DX W/COLLJ SPEC WHEN PFRMD 11/02/2002 Colonoscopy COLONOSCOPY FLX DX W/COLLJ SPEC WHEN PFRMD 01/29/2009 COLONOSCOPY FLX DX W/COLLJ SPEC WHEN PFRMD 02/24/2014 Colonoscopy COLONOSCOPY FLX DX W/COLLJ SPEC WHEN PFRMD 03/09/2018 LUZ MARINAMauro Garcia-repeat 10 years ESOPHAGOGASTRODUODENOSCOPY TRANSORAL DIAGNOSTIC N/A 08/16/2020 LUZ MARINAMauro Garcia PAST SURGICAL HISTORY OF 2010 basal cell to right above upper lip FAMILY HISTORY Problem Relation Age of Onset Heart Father CHF Heart Mother CHF Heart Brother [place] - rheumatic fever Cancer Brother gastric Asthma Sister Social History Tobacco Use Smoking status: Former Years: 1 Types: Cigarettes Quit date: 02/24/2011 Years since quittin.8 Smokeless tobacco: Never Substance Use Topics Alcohol use: Yes Alcohol/week: 2.3 standard drinks of alcohol Types: 1 Glasses of Wine (5oz), 1 Mixed Drinks per week Comment: one drink a day Drug use: No Reviewed current medications, allergies, past medical history, surgical history, family history and social history today. REVIEW OF SYSTEMS All other reviewed and negative other than HPI. HEALTH MAINTENANCE: VITALS: BP 128/54 Pulse 64 Ht 180.3 cm (5' 11) Wt 96.6 kg (213 lb) SpO2 96% BMI 29.71 kg/m Last 4 Encounter Wt Readings: Date: Wt: 12/29/2023 96.6 kg (213 lb) 11/11/2023 94.3 kg (208 lb) 05/04/2023 91.6 kg (202 lb) 03/27/2023 92.5 kg (204 lb) PHYSICAL EXAMINATION: General appearance: Well appearing, alert, in no acute distress, well-hydrated, well nourished. Skin: Skin color, texture, turgor normal, no suspicious rashes or lesions Head: Normocephalic, no masses, lesions, tenderness or abnormalities Eyes: Anicteric sclera. Pupils are equally round and reactive to light. Extraocular movements are intact. , no nystagmus. Neck: Supple, no adenopathy; thyroid symmetric, normal size, no bruits Lungs: Lungs clear to auscultation. No wheezing, rhonchi, rales Heart: RRR without murmur, gallop, or rubs. No ectopy Abdomen: Normal abdominal exam, Abdomen soft, non-tender. Bowel sounds normal. No masses, organomegaly Extremities: No deformities, edema, skin discoloration, clubbing or cyanosis. Good capillary refill. Musculoskeletal: No joint swelling, deformity, or tenderness Peripheral pulses: Normal Neuro: Gait normal. Reflexes normal and symmetric. Sensation grossly intact., normal motor exam. Positive rodríguez pike with horizontal gaze to the right that reproduces his symptoms. ASSESSMENT/PLAN: 1. Lightheaded - ICD9: 780.4, ICD10: R42 (primary diagnosis) -declines mri etc. Vestibular eval. Red flags for re-assessment reviewed with patient in detail. - CONSULT TO PHYSICAL THERAPY 2. Atrial fibrillation, unspecified type (HCC) - ICD9: 427.31, ICD10: I48.91 - stable. 3. Essential hypertension, benign - ICD9: 401.1, ICD10: I10 - Improving control - Continue current medications 4. Moderate mitral regurgitation - ICD9: 424.0, ICD10: I34.0 - per cardiology 5. Moderate tricuspid regurgitation - ICD9: 397.0, ICD10: I07.1 - per cardiology 6. Hyperglycemia - ICD9: 790.29, ICD10: R73.9 - stable. 7. Generalized anxiety disorder - ICD9: 300.02, ICD10: F41.1 - doing well. 8. History of DVT (deep vein thrombosis) - ICD9: V12.51, ICD10: Z86.718 Stable. 9. Benign paroxysmal positional vertigo of right ear - ICD9: 386.11, ICD10: H81.11 - CONSULT TO PHYSICAL THERAPY 10. SOB (shortness of breath) - ICD9: 786.05, ICD10: R06.02 - wants to wait and see how his exercising helps. Consider xray of chest and spirometry if continues. Tien Serrano MD RTO in six weeks or prn documented in this encounter [facility] 12-18-2023 Telephone encounter Note [facility] Ambulatory Pharmacy Anticoagulation Clinic Anticoagulation Episode Summary Anticoagulation Care Providers Provider Role Specialty Phone number Tien Serrano MD Referring Family Medicine [phone] Wilmer Morley is a 82 year old year old male patient being evaluated today for a Telemanagement visit. Patient is currently on the following anticoagulant(s) Warfarin. Labs PT INR (no units) Date Value 09/16/2021 2.9 09/02/2021 3.2 06/06/2021 2.5 biotel INR Home CoaguChek (no units) Date Value 12/17/2023 3.0 12/03/2023 2.6 11/26/2023 1.9 Hemoglobin (g/dL) Date Value 11/03/2023 13.9 03/14/2021 14.8 Hematocrit (%) Date Value 11/03/2023 42.3 03/14/2021 44.9 Platelet Count (k/uL) Date Value 11/03/2023 162 03/14/2021 191 Creatinine (mg/dL) Date Value 11/11/2023 1.23 11/03/2023 1.21 03/23/2023 1.19 03/14/2021 1.34 09/06/2020 1.27 08/06/2020 1.43 Bilirubin, Total (mg/dL) Date Value 11/03/2023 0.6 03/14/2021 1.1 ALT (U/L) Date Value 11/03/2023 35 03/14/2021 32 AST (U/L) Date Value 11/03/2023 33 03/14/2021 30 Estimated Creatinine Clearance: 55.2 mL/min (A) (based on SCr of 1.23 mg/dL (H)). ALLERGIES No Known Allergies 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: Anticoagulation Episode Summary Current INR goal: 2.0-3.0 Assessment: INR result of 3.0 is therapeutic Plan: Current Warfarin Dosing As of 12/18/2023 Full warfarin instructions: 7.5 mg every Mon, Fri; 5 mg all other days Sent HowGood message Advised patient to continue current weekly dose as noted above Next home INR check scheduled on 01/01/2024 Arabella Lopez RPh Clinical Pharmacist, Pharmacy Anticoagulation Clinic Pharmacy Anticoagulation Clinic Pager: [phone]. [facility] 12-18-2023 Miscellaneous Notes [facility] Ambulatory Pharmacy Anticoagulation Clinic Anticoagulation Episode Summary Anticoagulation Care Providers Provider Role Specialty Phone number Tien Serrano MD Referring Family Medicine [phone] Wilmer Morley is a 82 year old year old male patient being evaluated today for a Telemanagement visit. Patient is currently on the following anticoagulant(s) Warfarin. Labs PT INR (no units) Date Value 09/16/2021 2.9 09/02/2021 3.2 06/06/2021 2.5 biotel INR Home CoaguChek (no units) Date Value 12/17/2023 3.0 12/03/2023 2.6 11/26/2023 1.9 Hemoglobin (g/dL) Date Value 11/03/2023 13.9 03/14/2021 14.8 Hematocrit (%) Date Value 11/03/2023 42.3 03/14/2021 44.9 Platelet Count (k/uL) Date Value 11/03/2023 162 03/14/2021 191 Creatinine (mg/dL) Date Value 11/11/2023 1.23 11/03/2023 1.21 03/23/2023 1.19 03/14/2021 1.34 09/06/2020 1.27 08/06/2020 1.43 Bilirubin, Total (mg/dL) Date Value 11/03/2023 0.6 03/14/2021 1.1 ALT (U/L) Date Value 11/03/2023 35 03/14/2021 32 AST (U/L) Date Value 11/03/2023 33 03/14/2021 30 Estimated Creatinine Clearance: 55.2 mL/min (A) (based on SCr of 1.23 mg/dL (H)). ALLERGIES No Known Allergies 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: Anticoagulation Episode Summary Current INR goal: 2.0-3.0 Assessment: INR result of 3.0 is therapeutic Plan: Current Warfarin Dosing As of 12/18/2023 Full warfarin instructions: 7.5 mg every Mon, Fri; 5 mg all other days Sent HowGood message Advised patient to continue current weekly dose as noted above Next home INR check scheduled on 01/01/2024 Arabella Lopez RPh Clinical Pharmacist, Pharmacy Anticoagulation Clinic Pharmacy Anticoagulation Clinic Pager: [phone]. documented in this encounter [facility] 12-03-2023 Telephone encounter Note [facility] Ambulatory Pharmacy Anticoagulation Clinic Anticoagulation Episode Summary Anticoagulation Care Providers Provider Role Specialty Phone number Tien Serrano MD Referring Family Medicine [phone] Wilmer Morley is a 82 year old year old male patient being evaluated today for a Telemanagement visit. Patient is currently on the following anticoagulant(s) Warfarin. Labs PT INR (no units) Date Value 09/16/2021 2.9 09/02/2021 3.2 06/06/2021 2.5 biotel INR Home CoaguChek (no units) Date Value 12/03/2023 2.6 11/26/2023 1.9 10/29/2023 2.0 Hemoglobin (g/dL) Date Value 11/03/2023 13.9 03/14/2021 14.8 Hematocrit (%) Date Value 11/03/2023 42.3 03/14/2021 44.9 Platelet Count (k/uL) Date Value 11/03/2023 162 03/14/2021 191 Creatinine (mg/dL) Date Value 11/11/2023 1.23 11/03/2023 1.21 03/23/2023 1.19 03/14/2021 1.34 09/06/2020 1.27 08/06/2020 1.43 Bilirubin, Total (mg/dL) Date Value 11/03/2023 0.6 03/14/2021 1.1 ALT (U/L) Date Value 11/03/2023 35 03/14/2021 32 AST (U/L) Date Value 11/03/2023 33 03/14/2021 30 Estimated Creatinine Clearance: 55.2 mL/min (A) (based on SCr of 1.23 mg/dL (H)). ALLERGIES No Known Allergies 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: long term (current) use of anticoagulants History of dvt (deep vein thrombosis) Anticoagulation Episode Summary Current INR goal: 2.0-3.0 Assessment: INR result of 2.6 is therapeutic Plan: Current Warfarin Dosing As of 12/03/2023 Full warfarin instructions: 7.5 mg every Mon, Fri; 5 mg all other days Sent HowGood message Advised patient to continue current weekly dose as noted above Next home INR check scheduled on 12/17/2023 Jinny Shah RPh Clinical Pharmacist, Pharmacy Anticoagulation Clinic Pharmacy Anticoagulation Clinic Pager: [phone]. [facility] 12-03-2023 Miscellaneous Notes [facility] Ambulatory Pharmacy Anticoagulation Clinic Anticoagulation Episode Summary Anticoagulation Care Providers Provider Role Specialty Phone number Tien Serrano MD Referring Family Medicine [phone] Wilmer Morley is a 82 year old year old male patient being evaluated today for a Telemanagement visit. Patient is currently on the following anticoagulant(s) Warfarin. Labs PT INR (no units) Date Value 09/16/2021 2.9 09/02/2021 3.2 06/06/2021 2.5 biotel INR Home CoaguChek (no units) Date Value 12/03/2023 2.6 11/26/2023 1.9 10/29/2023 2.0 Hemoglobin (g/dL) Date Value 11/03/2023 13.9 03/14/2021 14.8 Hematocrit (%) Date Value 11/03/2023 42.3 03/14/2021 44.9 Platelet Count (k/uL) Date Value 11/03/2023 162 03/14/2021 191 Creatinine (mg/dL) Date Value 11/11/2023 1.23 11/03/2023 1.21 03/23/2023 1.19 03/14/2021 1.34 09/06/2020 1.27 08/06/2020 1.43 Bilirubin, Total (mg/dL) Date Value 11/03/2023 0.6 03/14/2021 1.1 ALT (U/L) Date Value 11/03/2023 35 03/14/2021 32 AST (U/L) Date Value 11/03/2023 33 03/14/2021 30 Estimated Creatinine Clearance: 55.2 mL/min (A) (based on SCr of 1.23 mg/dL (H)). ALLERGIES No Known Allergies 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: long term (current) use of anticoagulants History of dvt (deep vein thrombosis) Anticoagulation Episode Summary Current INR goal: 2.0-3.0 Assessment: INR result of 2.6 is therapeutic Plan: Current Warfarin Dosing As of 12/03/2023 Full warfarin instructions: 7.5 mg every Mon, Fri; 5 mg all other days Sent HowGood message Advised patient to continue current weekly dose as noted above Next home INR check scheduled on 12/17/2023 Jinny Shah RPh Clinical Pharmacist, Pharmacy Anticoagulation Clinic Pharmacy Anticoagulation Clinic Pager: [phone]. documented in this encounter [facility] 11-27-2023 Telephone encounter Note [facility] Ambulatory Pharmacy Anticoagulation Clinic Anticoagulation Episode Summary Anticoagulation Care Providers Provider Role Specialty Phone number Tien Serrano MD Referring Family Medicine [phone] Wilmer Morley is a 82 year old year old male patient being evaluated today for a Telemanagement visit. Patient is currently on the following anticoagulant(s) Warfarin. Labs PT INR (no units) Date Value 09/16/2021 2.9 09/02/2021 3.2 06/06/2021 2.5 biotel INR Home CoaguChek (no units) Date Value 11/26/2023 1.9 10/29/2023 2.0 10/12/2023 2.6 Hemoglobin (g/dL) Date Value 11/03/2023 13.9 03/14/2021 14.8 Hematocrit (%) Date Value 11/03/2023 42.3 03/14/2021 44.9 Platelet Count (k/uL) Date Value 11/03/2023 162 03/14/2021 191 Creatinine (mg/dL) Date Value 11/11/2023 1.23 11/03/2023 1.21 03/23/2023 1.19 03/14/2021 1.34 09/06/2020 1.27 08/06/2020 1.43 Bilirubin, Total (mg/dL) Date Value 11/03/2023 0.6 03/14/2021 1.1 ALT (U/L) Date Value 11/03/2023 35 03/14/2021 32 AST (U/L) Date Value 11/03/2023 33 03/14/2021 30 Estimated Creatinine Clearance: 55.2 mL/min (A) (based on SCr of 1.23 mg/dL (H)). ALLERGIES No Known Allergies 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: Anticoagulation Episode Summary Current INR goal: 2.0-3.0 Assessment: INR result of 1.9 is SUBtherapeutic due to: Missed dose(s) Plan: Current Warfarin Dosing As of 11/27/2023 Full warfarin instructions: 7.5 mg every Mon, Fri; 5 mg all other days Called and spoke to patient/caregiver Advised patient to continue current weekly dose as noted above Next home INR check scheduled on 12/11/2023 Patient verbalizes understanding of the plan. Arabella Lopez RPh Clinical Pharmacist, Pharmacy Anticoagulation Clinic Pharmacy Anticoagulation Clinic Pager: [phone]. [facility] 11-27-2023 Miscellaneous Notes [facility] Ambulatory Pharmacy Anticoagulation Clinic Anticoagulation Episode Summary Anticoagulation Care Providers Provider Role Specialty Phone number Tien Serrano MD Referring Family Medicine [phone] Wilmer Morley is a 82 year old year old male patient being evaluated today for a Telemanagement visit. Patient is currently on the following anticoagulant(s) Warfarin. Labs PT INR (no units) Date Value 09/16/2021 2.9 09/02/2021 3.2 06/06/2021 2.5 biotel INR Home CoaguChek (no units) Date Value 11/26/2023 1.9 10/29/2023 2.0 10/12/2023 2.6 Hemoglobin (g/dL) Date Value 11/03/2023 13.9 03/14/2021 14.8 Hematocrit (%) Date Value 11/03/2023 42.3 03/14/2021 44.9 Platelet Count (k/uL) Date Value 11/03/2023 162 03/14/2021 191 Creatinine (mg/dL) Date Value 11/11/2023 1.23 11/03/2023 1.21 03/23/2023 1.19 03/14/2021 1.34 09/06/2020 1.27 08/06/2020 1.43 Bilirubin, Total (mg/dL) Date Value 11/03/2023 0.6 03/14/2021 1.1 ALT (U/L) Date Value 11/03/2023 35 03/14/2021 32 AST (U/L) Date Value 11/03/2023 33 03/14/2021 30 Estimated Creatinine Clearance: 55.2 mL/min (A) (based on SCr of 1.23 mg/dL (H)). ALLERGIES No Known Allergies 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: Anticoagulation Episode Summary Current INR goal: 2.0-3.0 Assessment: INR result of 1.9 is SUBtherapeutic due to: Missed dose(s) Plan: Current Warfarin Dosing As of 11/27/2023 Full warfarin instructions: 7.5 mg every Mon, Fri; 5 mg all other days Called and spoke to patient/caregiver Advised patient to continue current weekly dose as noted above Next home INR check scheduled on 12/11/2023 Patient verbalizes understanding of the plan. Arabella Lopez RPh Clinical Pharmacist, Pharmacy Anticoagulation Clinic Pharmacy Anticoagulation Clinic Pager: [phone]. PATIENT CALL Patient called call center regarding message. Patient stated he missed a dose of warfarin 2-3 days ago and he also had a basal cell removed two days ago and is on an antibiotic-doxycycline 100 mg BID for ten days. Patient has already had two days of antibiotic. PT INR (no units) Date Value 09/16/2021 2.9 09/02/2021 3.2 06/06/2021 2.5 biotel INR Home CoaguChek (no units) Date Value 11/26/2023 1.9 10/29/2023 2.0 10/12/2023 2.6 Patient can be reached at [phone] to discuss Robel Stanford (RRsat) [facility] Ambulatory Pharmacy Anticoagulation Clinic Anticoagulation Episode Summary Anticoagulation Care Providers Provider Role Specialty Phone number Tien Serrano MD Referring Family Medicine [phone] Wilmer Morley is a 82 year old year old male patient being evaluated today for a Telemanagement visit. Patient is currently on the following anticoagulant(s) Warfarin. Labs PT INR (no units) Date Value 09/16/2021 2.9 09/02/2021 3.2 06/06/2021 2.5 biotel INR Home CoaguChek (no units) Date Value 11/26/2023 1.9 10/29/2023 2.0 10/12/2023 2.6 Hemoglobin (g/dL) Date Value 11/03/2023 13.9 03/14/2021 14.8 Hematocrit (%) Date Value 11/03/2023 42.3 03/14/2021 44.9 Platelet Count (k/uL) Date Value 11/03/2023 162 03/14/2021 191 Creatinine (mg/dL) Date Value 11/11/2023 1.23 11/03/2023 1.21 03/23/2023 1.19 03/14/2021 1.34 09/06/2020 1.27 08/06/2020 1.43 Bilirubin, Total (mg/dL) Date Value 11/03/2023 0.6 03/14/2021 1.1 ALT (U/L) Date Value 11/03/2023 35 03/14/2021 32 AST (U/L) Date Value 11/03/2023 33 03/14/2021 30 Estimated Creatinine Clearance: 55.2 mL/min (A) (based on SCr of 1.23 mg/dL (H)). ALLERGIES No Known Allergies 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: Anticoagulation Episode Summary Current INR goal: 2.0-3.0 Assessment: INR result of 1.9 is SUBtherapeutic due to: unknown cause - did not speak to patient Plan: Current Warfarin Dosing As of 11/27/2023 Full warfarin instructions: 7.5 mg every Mon, Fri; 5 mg all other days Left voice message Advised patient to increase total weekly regimen Next home INR check scheduled on 12/10/2023 Arabella Lopez RPh Clinical Pharmacist, Pharmacy Anticoagulation Clinic Pharmacy Anticoagulation Clinic Pager: [phone]. documented in this encounter [facility] 11-27-2023 Telephone encounter Note PATIENT CALL Patient called call center regarding message. Patient stated he missed a dose of warfarin 2-3 days ago and he also had a basal cell removed two days ago and is on an antibiotic-doxycycline 100 mg BID for ten days. Patient has already had two days of antibiotic. PT INR (no units) Date Value 09/16/2021 2.9 09/02/2021 3.2 06/06/2021 2.5 biotel INR Home CoaguChek (no units) Date Value 11/26/2023 1.9 10/29/2023 2.0 10/12/2023 2.6 Patient can be reached at [phone] to discuss Robel Stanford (RRsat) [facility] 11-27-2023 Telephone encounter Note [facility] Ambulatory Pharmacy Anticoagulation Clinic Anticoagulation Episode Summary Anticoagulation Care Providers Provider Role Specialty Phone number Tien Serrano MD Referring Family Medicine [phone] Wilmer Morley is a 82 year old year old male patient being evaluated today for a Telemanagement visit. Patient is currently on the following anticoagulant(s) Warfarin. Labs PT INR (no units) Date Value 09/16/2021 2.9 09/02/2021 3.2 06/06/2021 2.5 biotel INR Home CoaguChek (no units) Date Value 11/26/2023 1.9 10/29/2023 2.0 10/12/2023 2.6 Hemoglobin (g/dL) Date Value 11/03/2023 13.9 03/14/2021 14.8 Hematocrit (%) Date Value 11/03/2023 42.3 03/14/2021 44.9 Platelet Count (k/uL) Date Value 11/03/2023 162 03/14/2021 191 Creatinine (mg/dL) Date Value 11/11/2023 1.23 11/03/2023 1.21 03/23/2023 1.19 03/14/2021 1.34 09/06/2020 1.27 08/06/2020 1.43 Bilirubin, Total (mg/dL) Date Value 11/03/2023 0.6 03/14/2021 1.1 ALT (U/L) Date Value 11/03/2023 35 03/14/2021 32 AST (U/L) Date Value 11/03/2023 33 03/14/2021 30 Estimated Creatinine Clearance: 55.2 mL/min (A) (based on SCr of 1.23 mg/dL (H)). ALLERGIES No Known Allergies 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: Anticoagulation Episode Summary Current INR goal: 2.0-3.0 Assessment: INR result of 1.9 is SUBtherapeutic due to: unknown cause - did not speak to patient Plan: Current Warfarin Dosing As of 11/27/2023 Full warfarin instructions: 7.5 mg every Mon, Fri; 5 mg all other days Left voice message Advised patient to increase total weekly regimen Next home INR check scheduled on 12/10/2023 Arabella Lopez RPh Clinical Pharmacist, Pharmacy Anticoagulation Clinic Pharmacy Anticoagulation Clinic Pager: [phone]. [facility] 11-12-2023 Telephone encounter Note Patient was notified Lia Willard MA [facility] 11-12-2023 Miscellaneous Notes Patient was notified Lia Willard MA Kidney function still slightly up. Encourage fluids and recheck labs in a few weeks. documented in this encounter [facility] 11-12-2023 Telephone encounter Note Kidney function still slightly up. Encourage fluids and recheck labs in a few weeks. [facility] 11-11-2023 Nurse Note Ambulatory Ear Lavage Pre-treatment: No pre-treatment Treatment: Left ear Equipment and Irrigation solution and Volume used: Single use syringe with single use irrigation tip Return flow appearance: Clear Patient tolerated procedure: yes Tympanic membrane assessment: Tympanic membrane assessed by LIP pre and post procedure [facility] 11-11-2023 Nurse Note Ambulatory Ear Lavage Pre-treatment: No pre-treatment Treatment: Left ear Equipment and Irrigation solution and Volume used: Single use syringe with single use irrigation tip Return flow appearance: Clear Patient tolerated procedure: yes Tympanic membrane assessment: Tympanic membrane assessed by LIP pre and post procedure documented in this encounter [facility] 11-11-2023 History of Present illness Narrative Patient presents with: 6 Month Exam HPI: Patient presents today for office visit for follow up. HTN: Continues on Lisinopril 10 mg daily Doxazosin 1 mg daily Monitors BP at home occ. Are good at home. Stable. Denies chest pain. Increased shortness of breath over the last 6 months. Only with exertion. Denies headaches. Occasionally feels off balance. Refers to feeling when you've had too much to drink. States it's not dizziness and that the feeling is hard to describe. Has been there for years. Maybe just a little more frequently. Had a ct scan once for syncope when he had symptoms. Told cardiology about it on Thursday and he scheduled an echo and stress test. Is on doxazosin which might contribute but symptoms preceded it. Happens when he is upright. No new headaches. No tinnitus. No new numbness or weakness. No falls. No true vertigo. Denies palpitations. Does have Hx of A-fib. No recent episodes. Follows with cardiology. No recent syncopal episodes. No new or worsening edema. Always with some swelling to left leg due to Hx of DVT. Continues on Warfarin. Sees Dr Head. Coumadin is managed by pharmacy Bun is up a little. Discussed that it could help. HLD: Continues on Atorvastatin No myalgias PSYCH: Continues on Sertraline 100 mg Does not feel like he's under any stress Feels more pleasant Uses ativan prn. States he rarely uses. MEDICATIONS: Current Outpatient Medications Medication Sig lisinopril (ZESTRIL) 10 mg tablet Take 1 tablet by mouth once daily. sertraline (ZOLOFT) 100 mg tablet Take 1 tablet by mouth once daily. warfarin (COUMADIN) 5 mg tablet 7.5 mg every Mon, Fri; 5 mg all other days atorvastatin (LIPITOR) 20 mg tablet Take 1 tablet by mouth once daily. doxazosin (CARDURA) 1 mg tablet Take 1 tablet by mouth daily at bedtime. flecainide (TAMBOCOR) 100 mg tablet Take 1 tablet by mouth twice daily. loperamide (ANTI-DIARRHEAL) 1 mg/5 mL solution Take 5 mL by mouth four times daily as needed. Take 1/2 tablet daily No current facility-administered medications for this visit. 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 Benign neoplasm of colon CKD (chronic kidney disease), stage III (HCC) 04/08/2018 Diverticulosis of colon (without mention of hemorrhage) Essential hypertension, benign 02/27/2010 Facial basal cell cancer 2009 Internal hemorrhoids without mention of complication Other acute embolism veins Other and unspecified hyperlipidemia hypertriglyeridemia Personal history of colonic polyps PAST SURGICAL HISTORY Procedure Laterality Date CATARACT EXTRACTION HX Left CATARACT SURGERY, COMPLEX 2009 R eye COLONOSCOPY FLX DX W/COLLJ SPEC WHEN PFRMD 08/05/2000 Colonoscopy COLONOSCOPY FLX DX W/COLLJ SPEC WHEN PFRMD 11/02/2002 Colonoscopy COLONOSCOPY FLX DX W/COLLJ SPEC WHEN PFRMD 01/29/2009 COLONOSCOPY FLX DX W/COLLJ SPEC WHEN PFRMD 02/24/2014 Colonoscopy COLONOSCOPY FLX DX W/COLLJ SPEC WHEN PFRMD 03/09/2018 [facility]-repeat 10 years ESOPHAGOGASTRODUODENOSCOPY TRANSORAL DIAGNOSTIC N/A 08/16/2020 [facility] H[facility] OF 2010 basal cell to right above upper lip FAMILY HISTORY Problem Relation Age of Onset Heart Father CHF Heart Mother CHF Heart Brother [place] - rheumatic fever Cancer Brother gastric Asthma Sister Social History Tobacco Use Smoking status: Former Years: 1 Types: Cigarettes Quit date: 02/24/2011 Years since quittin.7 Smokeless tobacco: Never Substance Use Topics Alcohol use: Yes Alcohol/week: 2.3 standard drinks of alcohol Types: 1 Glasses of Wine (5oz), 1 Mixed Drinks per week Comment: one drink a day Drug use: No Reviewed current medications, allergies, past medical history, surgical history, family history and social history today. REVIEW OF SYSTEMS No urine or bowel issues that are new. All other reviewed and negative other than HPI. HEALTH MAINTENANCE: Reviewed health maintenance issues today and recommended the following in detail. Advance Directive Discussion due on 06/08/2023 Behavioral Health Screening-Behavioral Health Screening PHQ-2 Score: 0 (Lower risk for depression) SILVIO-7 Score: 1 (Minimal Anxiety) Recommendation: no further intervention at this time Covid-19 Vaccine() due on 07/28/2023 Latest Ref Rng 11/03/2023 WBC 3.70 - 11.00 k/uL 5.63 RBC 4.20 - 6.00 m/uL 4.32 Hemoglobin 13.0 - 17.0 g/dL 13.9 Hematocrit 39.0 - 51.0 % 42.3 MCV 80.0 - 100.0 fL 97.9 MCH 26.0 - 34.0 pg 32.2 MCHC 30.5 - 36.0 g/dL 32.9 RDW-CV 11.5 - 15.0 % 12.6 Platelet Count 150 - 400 k/uL 162 MPV 9.0 - 12.7 fL 10.6 Neut% % 55.6 Abs Neut (ANC) 1.45 - 7.50 k/uL 3.13 Lymph% % 31.6 Abs Lymph 1.00 - 4.00 k/uL 1.78 [place]% % 10.3 Abs [place] <0.87 k/uL 0.58 Eosin% % 1.4 Abs Eosin <0.46 k/uL 0.08 Baso% % 0.7 Abs Baso <0.11 k/uL 0.04 Immature Gran % % 0.4 IMMATURE GRANS (ABS) <0.10 k/uL <0.03 NRBC /100 WBC 0.0 Absolute nRBC <0.01 k/uL <0.01 DTYPE Auto Protein, Total 6.3 - 8.0 g/dL 7.0 Albumin 3.9 - 4.9 g/dL 4.2 Calcium 8.5 - 10.2 mg/dL 9.2 Bilirubin, Total 0.2 - 1.3 mg/dL 0.6 Alkaline Phosphatase 38 - 113 U/L 88 AST 14 - 40 U/L 33 ALT 10 - 54 U/L 35 Glucose 74 - 99 mg/dL 89 BUN 9 - 24 mg/dL 30 (H) Creatinine 0.73 - 1.22 mg/dL 1.21 Sodium 136 - 144 mmol/L 136 Potassium 3.7 - 5.1 mmol/L 4.8 Chloride 97 - 105 mmol/L 102 CO2 22 - 30 mmol/L 23 Anion Gap 9 - 18 mmol/L 11 eGFR >=60 mL/min/1.73m 60 Cholesterol, Total <200 mg/dL 125 Triglyceride <150 mg/dL 83 HDL Cholesterol >39 mg/dL 45 Non HDL Cholesterol <130 mg/dL 80 Fasting Time hrs 12 VLDL Cholesterol <30 mg/dL 17 TC:HDL Ratio <5.10 2.78 LDL Cholesterol <100 mg/dL 63 LDL:HDL Ratio <2.54 1.40 Hemoglobin A1C 4.3 - 5.6 % 5.6 Estimated Average Glucose mg/dL 114 Legend: (H) High VITALS: BP 178/68 Pulse 76 Ht 180.3 cm (5' 11) Wt 94.3 kg (208 lb) BMI 29.01 kg/m BP w/Orthostatic Vitals Date and Time Orthostatic BP Orthostatic Pulse BP Pulse BP Position BP Site BP Cuff Size 11/11/23 1040 128/55 57 -- -- Standing -- -- 11/11/23 1037 151/69 55 -- -- Sitting -- -- 11/11/23 1034 153/71 52 -- -- Supine -- -- 11/11/23 0938 -- -- 178/68 76 -- -- -- Last 4 Encounter Wt Readings: Date: Wt: 11/11/2023 94.3 kg (208 lb) 05/04/2023 91.6 kg (202 lb) 03/27/2023 92.5 kg (204 lb) 02/19/2023 94.8 kg (209 lb) PHYSICAL EXAMINATION: General appearance: Well appearing, alert, in no acute distress, well-hydrated, well nourished. Skin: Skin color, texture, turgor normal, no suspicious rashes or lesions Head: Normocephalic, no masses, lesions, tenderness or abnormalities Eyes: Anicteric sclera. Pupils are equally round and reactive to light. Extraocular movements are intact. Ears: - left tm has cerumen. Neck: Supple, no adenopathy; thyroid symmetric, normal size, no bruits Back: Normal exam Lungs: Lungs clear to auscultation. No wheezing, rhonchi, rales Heart: RRR without murmur, gallop, or rubs. No ectopy Abdomen: Normal abdominal exam, Abdomen soft, non-tender. Bowel sounds normal. No masses, organomegaly Extremities: No deformities, edema, skin discoloration, clubbing or cyanosis. Good capillary refill. Musculoskeletal: No joint swelling, deformity, or tenderness Peripheral pulses: Normal Neuro: Gait normal. Reflexes normal and symmetric. Sensation grossly intact., Negative findings: speech normal, muscle tone normal, muscle strength normal ASSESSMENT/PLAN: 1. Atrial fibrillation, unspecified type (HCC) - ICD9: 427.31, ICD10: I48.91 (primary diagnosis) - stable. Continue per cardiology 2. Essential hypertension, benign - ICD9: 401.1, ICD10: I10 - Controlled - Continue current medications 3. Moderate mitral regurgitation - ICD9: 424.0, ICD10: I34.0 - no change. 4. Stage 3a chronic kidney disease (HCC) - ICD9: 585.3, ICD10: N18.31 - doing well. 5. Hyperglycemia - ICD9: 790.29, ICD10: R73.9 - no change 6. Hx of skin cancer, basal cell - ICD9: V10.83, ICD10: Z85.828 - stable. 7. Generalized anxiety disorder - ICD9: 300.02, ICD10: F41.1 - no current issues. 8. long term (current) use of anticoagulants - ICD9: V58.61, ICD10: Z79.01 - tolerating well. 9. long term 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 - ICD9: V58.69, ICD10: Z79.899 - per cardiology 10. Balance problem - ICD9: 781.99, ICD10: R26.89 - offered neuro eval wishes to see ENT and have ear looked at first. Red flags for re-assessment reviewed with patient in detail. - do cardiac work up. 11. Impacted cerumen of left ear - ICD9: 380.4, ICD10: H61.22 -irrigated with warm tap water. Unable to remove. Tolerated well. Refer to ENT - AMBULATORY EAR LAVAGE/IRRIGATION Tien Serrano MD documented in this encounter [facility] 10-30-2023 Telephone encounter Note [facility] Ambulatory Pharmacy Anticoagulation Clinic Anticoagulation Episode Summary Anticoagulation Care Providers Provider Role Specialty Phone number Tien Serrano MD Referring Family Medicine [phone] Wilmer Morley is a 82 year old year old male patient being evaluated today for a Telemanagement visit. Patient is currently on the following anticoagulant(s) Warfarin. Labs PT INR (no units) Date Value 09/16/2021 2.9 09/02/2021 3.2 06/06/2021 2.5 biotel INR Home CoaguChek (no units) Date Value 10/29/2023 2.0 10/12/2023 2.6 09/24/2023 1.9 Hemoglobin (g/dL) Date Value 01/30/2022 13.9 03/14/2021 14.8 Hematocrit (%) Date Value 01/30/2022 43.0 03/14/2021 44.9 Platelet Count (k/uL) Date Value 01/30/2022 170 03/14/2021 191 Creatinine (mg/dL) Date Value 03/23/2023 1.19 11/20/2022 1.36 10/27/2022 1.32 03/14/2021 1.34 09/06/2020 1.27 08/06/2020 1.43 Bilirubin, Total (mg/dL) Date Value 10/27/2022 0.6 03/14/2021 1.1 ALT (U/L) Date Value 10/27/2022 13 03/14/2021 32 AST (U/L) Date Value 10/27/2022 14 03/14/2021 30 CrCl cannot be calculated (Patient's most recent lab result is older than the maximum 180 days allowed.). ALLERGIES No Known Allergies 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: long term (current) use of anticoagulants Atrial fibrillation, unspecified type (hcc) History of dvt (deep vein thrombosis) Anticoagulation Episode Summary Current INR goal: 2.0-3.0 Assessment: INR result of 2.0 is therapeutic Plan: Current Warfarin Dosing As of 10/30/2023 Full warfarin instructions: 7.5 mg every Mon, Fri; 5 mg all other days Sent HowGood message Advised patient to continue current weekly dose as noted above Next home INR check scheduled on 11/13/2023 Ghazal Bailey RPh Clinical Pharmacist, Pharmacy Anticoagulation Clinic Pharmacy Anticoagulation Clinic Pager: [phone]. [facility] 10-30-2023 Miscellaneous Notes [facility] Ambulatory Pharmacy Anticoagulation Clinic Anticoagulation Episode Summary Anticoagulation Care Providers Provider Role Specialty Phone number Tien Serrano MD Referring Family Medicine [phone] Wilmer Morley is a 82 year old year old male patient being evaluated today for a Telemanagement visit. Patient is currently on the following anticoagulant(s) Warfarin. Labs PT INR (no units) Date Value 09/16/2021 2.9 09/02/2021 3.2 06/06/2021 2.5 biotel INR Home CoaguChek (no units) Date Value 10/29/2023 2.0 10/12/2023 2.6 09/24/2023 1.9 Hemoglobin (g/dL) Date Value 01/30/2022 13.9 03/14/2021 14.8 Hematocrit (%) Date Value 01/30/2022 43.0 03/14/2021 44.9 Platelet Count (k/uL) Date Value 01/30/2022 170 03/14/2021 191 Creatinine (mg/dL) Date Value 03/23/2023 1.19 11/20/2022 1.36 10/27/2022 1.32 03/14/2021 1.34 09/06/2020 1.27 08/06/2020 1.43 Bilirubin, Total (mg/dL) Date Value 10/27/2022 0.6 03/14/2021 1.1 ALT (U/L) Date Value 10/27/2022 13 03/14/2021 32 AST (U/L) Date Value 10/27/2022 14 03/14/2021 30 CrCl cannot be calculated (Patient's most recent lab result is older than the maximum 180 days allowed.). ALLERGIES No Known Allergies 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: long term (current) use of anticoagulants Atrial fibrillation, unspecified type (hcc) History of dvt (deep vein thrombosis) Anticoagulation Episode Summary Current INR goal: 2.0-3.0 Assessment: INR result of 2.0 is therapeutic Plan: Current Warfarin Dosing As of 10/30/2023 Full warfarin instructions: 7.5 mg every Mon, Fri; 5 mg all other days Sent HowGood message Advised patient to continue current weekly dose as noted above Next home INR check scheduled on 11/13/2023 Ghazal Bailey RPh Clinical Pharmacist, Pharmacy Anticoagulation Clinic Pharmacy Antico[facility] Pager: [phone]. documented in this encounter [facility] 10-15-2023 Telephone encounter Note The following approved medication requests have been transmitted electronically. Requested Prescriptions Pending Prescriptions Disp Refills lisinopril (ZESTRIL) 10 mg tablet 90 tablet 1 Sig: Take 1 tablet by mouth once daily. sertraline (ZOLOFT) 100 mg tablet 90 tablet 1 Sig: Take 1 tablet by mouth once daily. Alejandrina Quigley APRN.CNS [facility] 10-15-2023 Miscellaneous Notes The following approved medication requests have been transmitted electronically. Requested Prescriptions Pending Prescriptions Disp Refills lisinopril (ZESTRIL) 10 mg tablet 90 tablet 1 Sig: Take 1 tablet by mouth once daily. sertraline (ZOLOFT) 100 mg tablet 90 tablet 1 Sig: Take 1 tablet by mouth once daily. Alejandrina Quigley APRN.CNS Patient has been identified by name and date of : Yes Requested Prescriptions Pending Prescriptions Disp Refills lisinopril (ZESTRIL) 10 mg tablet 90 tablet 2 Sig: Take 1 tablet by mouth once daily. sertraline (ZOLOFT) 100 mg tablet 90 tablet 1 Sig: Take 1 tablet by mouth once daily. RX INSTRUCTIONS: Patient aware RX will be sent to pharmacy. No need to notify patient. Scheduled 11/11/23 Velma Gonzalez LPN documented in this encounter [facility] 10-15-2023 Telephone encounter Note Patient has been identified by name and date of : Yes Requested Prescriptions Pending Prescriptions Disp Refills lisinopril (ZESTRIL) 10 mg tablet 90 tablet 2 Sig: Take 1 tablet by mouth once daily. sertraline (ZOLOFT) 100 mg tablet 90 tablet 1 Sig: Take 1 tablet by mouth once daily. RX INSTRUCTIONS: Patient aware RX will be sent to pharmacy. No need to notify patient. Scheduled 11/11/23 Velma Gonzalez LPN [facility] 10-13-2023 Telephone encounter Note [facility] Ambulatory Pharmacy Anticoagulation Clinic Anticoagulation Episode Summary Anticoagulation Care Providers Provider Role Specialty Phone number Tien Serrano MD Referring Family Medicine [phone] Wilmer Morley is a 82 year old year old male patient being evaluated today for a Telemanagement visit. Patient is currently on the following anticoagulant(s) Warfarin. Labs PT INR (no units) Date Value 09/16/2021 2.9 09/02/2021 3.2 06/06/2021 2.5 biotel INR Home CoaguChek (no units) Date Value 10/12/2023 2.6 09/24/2023 1.9 09/09/2023 2.0 Hemoglobin (g/dL) Date Value 01/30/2022 13.9 03/14/2021 14.8 Hematocrit (%) Date Value 01/30/2022 43.0 03/14/2021 44.9 Platelet Count (k/uL) Date Value 01/30/2022 170 03/14/2021 191 Creatinine (mg/dL) Date Value 03/23/2023 1.19 11/20/2022 1.36 10/27/2022 1.32 03/14/2021 1.34 09/06/2020 1.27 08/06/2020 1.43 Bilirubin, Total (mg/dL) Date Value 10/27/2022 0.6 03/14/2021 1.1 ALT (U/L) Date Value 10/27/2022 13 03/14/2021 32 AST (U/L) Date Value 10/27/2022 14 03/14/2021 30 CrCl cannot be calculated (Patient's most recent lab result is older than the maximum 180 days allowed.). ALLERGIES No Known Allergies 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: Anticoagulation Episode Summary Current INR goal: 2.0-3.0 Assessment: INR result of 2.6 is therapeutic Plan: Current Warfarin Dosing As of 10/13/2023 Full warfarin instructions: 7.5 mg every Mon, Fri; 5 mg all other days Sent HowGood message Advised patient to continue current weekly dose as noted above Next home INR check scheduled on 10/27/2023 Arabella Lopez RPh Clinical Pharmacist, Pharmacy Anticoagulation Clinic Pharmacy Anticoagulation Clinic Pager: [phone]. [facility] 10-13-2023 Miscellaneous Notes [facility] Ambulatory Pharmacy Anticoagulation Clinic Anticoagulation Episode Summary Anticoagulation Care Providers Provider Role Specialty Phone number Tien Serrano MD Referring Family Medicine [phone] Wilmer Morley is a 82 year old year old male patient being evaluated today for a Telemanagement visit. Patient is currently on the following anticoagulant(s) Warfarin. Labs PT INR (no units) Date Value 09/16/2021 2.9 09/02/2021 3.2 06/06/2021 2.5 biotel INR Home CoaguChek (no units) Date Value 10/12/2023 2.6 09/24/2023 1.9 09/09/2023 2.0 Hemoglobin (g/dL) Date Value 01/30/2022 13.9 03/14/2021 14.8 Hematocrit (%) Date Value 01/30/2022 43.0 03/14/2021 44.9 Platelet Count (k/uL) Date Value 01/30/2022 170 03/14/2021 191 Creatinine (mg/dL) Date Value 03/23/2023 1.19 11/20/2022 1.36 10/27/2022 1.32 03/14/2021 1.34 09/06/2020 1.27 08/06/2020 1.43 Bilirubin, Total (mg/dL) Date Value 10/27/2022 0.6 03/14/2021 1.1 ALT (U/L) Date Value 10/27/2022 13 03/14/2021 32 AST (U/L) Date Value 10/27/2022 14 03/14/2021 30 CrCl cannot be calculated (Patient's most recent lab result is older than the maximum 180 days allowed.). ALLERGIES No Known Allergies 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: Anticoagulation Episode Summary Current INR goal: 2.0-3.0 Assessment: INR result of 2.6 is therapeutic Plan: Current Warfarin Dosing As of 10/13/2023 Full warfarin instructions: 7.5 mg every Mon, Fri; 5 mg all other days Sent HowGood message Advised patient to continue current weekly dose as noted above Next home INR check scheduled on 10/27/2023 Arabella Lopez RPh Clinical Pharmacist, Pharmacy Anticoagulation Clinic Pharmacy Anticoagulation Clinic Pager: [phone]. documented in this encounter [facility] 09-24-2023 Miscellaneous Notes [facility] Ambulatory Pharmacy Anticoagulation Clinic Anticoagulation Episode Summary Anticoagulation Care Providers Provider Role Specialty Phone number Tien Serrano MD Referring Family Medicine [phone] Wilmer Morley is a 82 year old year old male patient being evaluated today for a Telemanagement visit. Patient is currently on the following anticoagulant(s) Warfarin. Labs PT INR (no units) Date Value 09/16/2021 2.9 09/02/2021 3.2 06/06/2021 2.5 biotel INR Home CoaguChek (no units) Date Value 09/24/2023 1.9 09/09/2023 2.0 08/21/2023 2.0 Hemoglobin (g/dL) Date Value 01/30/2022 13.9 03/14/2021 14.8 Hematocrit (%) Date Value 01/30/2022 43.0 03/14/2021 44.9 Platelet Count (k/uL) Date Value 01/30/2022 170 03/14/2021 191 Creatinine (mg/dL) Date Value 03/23/2023 1.19 11/20/2022 1.36 10/27/2022 1.32 03/14/2021 1.34 09/06/2020 1.27 08/06/2020 1.43 Bilirubin, Total (mg/dL) Date Value 10/27/2022 0.6 03/14/2021 1.1 ALT (U/L) Date Value 10/27/2022 13 03/14/2021 32 AST (U/L) Date Value 10/27/2022 14 03/14/2021 30 CrCl cannot be calculated (Patient's most recent lab result is older than the maximum 180 days allowed.). ALLERGIES No Known Allergies 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: Anticoagulation Episode Summary Current INR goal: 2.0-3.0 Assessment: INR result of 1.9 is SUBtherapeutic due to: Increased vitamin k intake Plan: Current Warfarin Dosing As of 09/24/2023 Full warfarin instructions: 7.5 mg every Mon, Fri; 5 mg all other days Called and spoke to patient/caregiver Advised patient to continue current weekly dose as noted above Next home INR check scheduled on 10/07 Patient verbalizes understanding of the plan. Arabella Lopez RPh Clinical Pharmacist, Pharmacy Anticoagulation Clinic Pharmacy Anticoagulation Clinic Pager: [phone]. documented in this encounter [facility] 09-24-2023 History of Past i llness Narrative Problem Noted Date Diagnosed Date Resolved Date Hypertensive kidney disease with stage 3a chronic kidney disease 11/06/2021 10/31/2022 Change in bowel movement 01/21/201812/2020 Episodic lightheadedness 04/11/2015 Bilateral edema of lower extremity 04/11/2015 01/10/2016 Paroxysmal atrial fibrillation 03/19/2015 04/11/2015 Skin lesion 03/05/2010 12/20/2014 Hyperlipidemia LDL goal <100 08/26/2006 05/04/2023 documented as of this encounter (statuses as of 09/25/2023) [facility]04-03-2024 Miscellaneous Notes* Telephone Encounter - Bea Adan RPh - 09/09/2023 4:58 PM EDT [facility] Ambulatory Pharmacy Anticoagulation Clinic Anticoagulation Episode Summary Anticoagulation Care Providers Provider Role Specialty Phone number Tien Serrano MD Referring Family Medicine [phone] Wilmer Morley is a 82 year old year old male patient being evaluated today for a Telemanagement visit. Patient is currently on the following anticoagulant(s) Warfarin. Labs PT INR (no units) Date Value 09/16/2021 2.9 09/02/2021 3.2 06/06/2021 2.5 biotel INR Home CoaguChek (no units) Date Value 09/09/2023 2.0 08/21/2023 2.0 08/02/2023 2.3 Hemoglobin (g/dL) Date Value 01/30/2022 13.9 03/14/2021 14.8 Hematocrit (%) Date Value 01/30/2022 43.0 03/14/2021 44.9 Platelet Count (k/uL) Date Value 01/30/2022 170 03/14/2021 191 Creatinine (mg/dL) Date Value 03/23/2023 1.19 11/20/2022 1.36 10/27/2022 1.32 03/14/2021 1.34 09/06/2020 1.27 08/06/2020 1.43 Bilirubin, Total (mg/dL) Date Value 10/27/2022 0.6 03/14/2021 1.1 ALT (U/L) Date Value 10/27/2022 13 03/14/2021 32 AST (U/L) Date Value 10/27/2022 14 03/14/2021 30 CrCl cannot be calculated (Unknown ideal weight.). ALLERGIES No Known Allergies 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: USP (current) use of anticoagulants Atrial fibrillation, unspecified type (hcc) History of dvt (deep vein thrombosis) Anticoagulation Episode Summary Current INR goal: 2.0-3.0 Assessment: INR result of 2.0 is therapeutic Plan: Current Warfarin Dosing As of 09/09/2023 Full warfarin instructions: 7.5 mg every Mon, Fri; 5 mg all other days Sent HowGood message Advised patient to continue current weekly dose as noted above Next home INR check scheduled on 09/23/2023 Bea Adan RPh Clinical Pharmacist, Pharmacy Anticoagulation Clinic Pharmacy Anticoagulation Clinic Pager: [phone]. [facility] Miscellaneous Notes* Telephone Encounter - Bea Adan RPh - 08/21/2023 4:40 PM EDT [facility] Ambulatory Pharmacy Anticoagulation Clinic Anticoagulation Episode Summary Anticoagulation Care Providers Provider Role Specialty Phone number Tien Serrano MD Referring Family Medicine [phone] Wilmer Morley is a 82 year old year old male patient being evaluated today for a Telemanagement visit. Patient is currently on the following anticoagulant(s) Warfarin. Labs PT INR (no units) Date Value 09/16/2021 2.9 09/02/2021 3.2 06/06/2021 2.5 biotel INR Home CoaguChek (no units) Date Value 08/21/2023 2.0 08/02/2023 2.3 07/13/2023 2.2 Hemoglobin (g/dL) Date Value 01/30/2022 13.9 03/14/2021 14.8 Hematocrit (%) Date Value 01/30/2022 43.0 03/14/2021 44.9 Platelet Count (k/uL) Date Value 01/30/2022 170 03/14/2021 191 Creatinine (mg/dL) Date Value 03/23/2023 1.19 11/20/2022 1.36 10/27/2022 1.32 03/14/2021 1.34 09/06/2020 1.27 08/06/2020 1.43 Bilirubin, Total (mg/dL) Date Value 10/27/2022 0.6 03/14/2021 1.1 ALT (U/L) Date Value 10/27/2022 13 03/14/2021 32 AST (U/L) Date Value 10/27/2022 14 03/14/2021 30 CrCl cannot be calculated (Unknown ideal weight.). ALLERGIES No Known Allergies 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: long term (current) use of anticoagulants Atrial fibrillation, unspecified type (hcc) History of dvt (deep vein thrombosis) Anticoagulation Episode Summary Current INR goal: 2.0-3.0 Assessment: INR result of 2.0 is therapeutic Plan: Current Warfarin Dosing As of 08/21/2023 Full warfarin instructions: 7.5 mg every Mon, Fri; 5 mg all other days Sent HowGood message Advised patient to continue current weekly dose as noted above Next home INR check scheduled on 09/04/2023 Bea Adan RPh Clinical Pharmacist, Pharmacy Anticoagulation Clinic Pharmacy Anticoagulation Clinic Pager: [phone]. [facility] History of Past illness Narrative* Problem Noted Date Diagnosed Date Resolved Date Hypertensive kidney disease with stage 3a chronic kidney disease 11/06/2021 10/31/2022 Change in bowel movement 01/21/201812/2020 Episodic lightheadedness 04/11/2015 Bilateral edema of lower extremity 04/11/2015 01/10/2016 Paroxysmal atrial fibrillation 03/19/2015 04/11/2015 Skin lesion 03/05/2010 12/20/2014 Hyperlipidemia LDL goal <100 08/26/2006 05/04/2023 documented as of this encounter (statuses as of 08/21/2023) [facility]02-21-2024 History of Past illness Narrative* Problem Noted Date Diagnosed Date Resolved Date Hypertensive kidney disease with stage 3a chronic kidney disease 11/06/2021 10/31/2022 Change in bowel movement 01/21/201812/2020 Episodic lightheadedness 04/11/2015 Bilateral edema of lower extremity 04/11/2015 01/10/2016 Paroxysmal atrial fibrillation 03/19/2015 04/11/2015 Skin lesion 03/05/2010 12/20/2014 Hyperlipidemia LDL goal <100 08/26/2006 05/04/2023 documented as of this encounter (statuses as of 07/29/2023) [facility]02-19-2024 Miscellaneous Notes* Telephone Encounter - Hanna Freitas Ma - 07/27/2023 9:23 AM EST Pt wrote in, in another mychart message that he changed Pharmacy Providers and needs Rx's sent to [facility]. Patient has been identified by name and date of : Yes, Provider Dr. Serrano Date July 27, 2023 Time 9:25 AM Patient mycharts for refill(s): Requested Prescriptions Pending Prescriptions Disp Refills warfarin (COUMADIN) 5 mg tablet 90 tablet 1 Si.5 mg every Mon, Fri; 5 mg all other days atorvastatin (LIPITOR) 20 mg tablet 90 tablet 1 Sig: Take 1 tablet by mouth once daily. Date of last office visit in primary care: 05/04/2023 Date of next office visit in primary care: 11/11/2023 Pt changed Pharmacy Providers due to insurance. Please advise. Thank you. Hanna Freitas Ma. documented in [facility] History of Past illness Narrative* Problem Noted Date Diagnosed Date Resolved Date Hypertensive kidney disease with stage 3a chronic kidney disease 11/06/2021 10/31/2022 Change in bowel movement 01/21/201812/2020 Episodic lightheadedness 04/11/2015 Bilateral edema of lower extremity 04/11/2015 01/10/2016 Paroxysmal atrial fibrillation 03/19/2015 04/11/2015 Skin lesion 03/05/2010 12/20/2014 Hyperlipidemia LDL goal <100 08/26/2006 05/04/2023 documented as of this encounter (statuses as of 07/27/2023) [facility]02-06-2024 Miscellaneous Notes* Telephone Encounter - Arabella Lopez RPh - 07/14/2023 9:13 AM EST [facility] Ambulatory Pharmacy Anticoagulation Clinic Anticoagulation Episode Summary Anticoagulation Care Providers Provider Role Specialty Phone number Tien Serrano MD Referring Family Medicine [phone] Wilmer Morley is a 82 year old year old male patient being evaluated today for a Telemanagement visit. Patient is currently on the following anticoagulant(s) Warfarin. Labs PT INR (no units) Date Value 09/16/2021 2.9 09/02/2021 3.2 06/06/2021 2.5 biotel INR Home CoaguChek (no units) Date Value 07/13/2023 2.2 06/23/2023 2.0 06/03/2023 2.6 Hemoglobin (g/dL) Date Value 01/30/2022 13.9 03/14/2021 14.8 Hematocrit (%) Date Value 01/30/2022 43.0 03/14/2021 44.9 Platelet Count (k/uL) Date Value 01/30/2022 170 03/14/2021 191 Creatinine (mg/dL) Date Value 03/23/2023 1.19 11/20/2022 1.36 10/27/2022 1.32 03/14/2021 1.34 09/06/2020 1.27 08/06/2020 1.43 Bilirubin, Total (mg/dL) Date Value 10/27/2022 0.6 03/14/2021 1.1 ALT (U/L) Date Value 10/27/2022 13 03/14/2021 32 AST (U/L) Date Value 10/27/2022 14 03/14/2021 30 Estimated Creatinine Clearance: 56.3 mL/min (based on SCr of 1.19 mg/dL). ALLERGIES No Known Allergies 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: Anticoagulation Episode Summary Current INR goal: 2.0-3.0 Assessment: INR result of 2.2 is therapeutic Plan: Current Warfarin Dosing As of 07/14/2023 Full warfarin instructions: 7.5 mg every Mon, Fri; 5 mg all other days Sent HowGood message Advised patient to continue current weekly dose as noted above Next home INR check scheduled on 07/28/2023 Arabella Lopez RPh Clinical Pharmacist, Pharmacy Anticoagulation Clinic Pharmacy Anticoagulation Clinic Pager: [phone]. documented in [facility] encounter[facility] History of Past illness Narrative* Problem Noted Date Diagnosed Date Resolved Date Hypertensive kidney disease with stage 3a chronic kidney disease 11/06/2021 10/31/2022 Change in bowel movement 01/21/201812/2020 Episodic lightheadedness 04/11/2015 Bilateral edema of lower extremity 04/11/2015 01/10/2016 Paroxysmal atrial fibrillation 03/19/2015 04/11/2015 Skin lesion 03/05/2010 12/20/2014 Hyperlipidemia LDL goal <100 08/26/2006 05/04/2023 documented as of this encounter (statuses as of 07/14/2023) [facility]12[facility] History of Past illness Narrative* Problem Noted Date Diagnosed Date Resolved Date Hypertensive kidney disease with stage 3a chronic kidney disease 11/06/2021 10/31/2022 Change in bowel movement 01/21/201812/2020 Episodic lightheadedness 04/11/2015 Bilateral edema of lower extremity 04/11/2015 01/10/2016 Paroxysmal atrial fibrillation 03/19/2015 04/11/2015 Skin lesion 03/05/2010 12/20/2014 Hyperlipidemia LDL goal <100 08/26/2006 05/04/2023 documented as of this encounter (statuses as of 05/15/2023) [facility]11-09-2023 Miscellaneous Notes* Telephone Encounter - Jinny Shah, [facility] - 04/16/2023 1:24 PM EST [facility] Ambulatory Pharmacy Anticoagulation Clinic Anticoagulation Episode Summary Anticoagulation Care Providers Provider Role Specialty Phone number Tien Serrano MD Referring Family Medicine [phone] Wilmer Morley is a 82 year old year old male patient being evaluated today for a Telemanagement visit. Patient is currently on the following anticoagulant(s) Warfarin. Labs PT INR (no units) Date Value 09/16/2021 2.9 09/02/2021 3.2 06/06/2021 2.5 biotel INR Home CoaguChek (no units) Date Value 04/16/2023 2.6 03/31/2023 2.1 03/12/2023 1.9 Hemoglobin (g/dL) Date Value 01/30/2022 13.9 03/14/2021 14.8 Hematocrit (%) Date Value 01/30/2022 43.0 03/14/2021 44.9 Platelet Count (k/uL) Date Value 01/30/2022 170 03/14/2021 191 Creatinine (mg/dL) Date Value 03/23/2023 1.19 11/20/2022 1.36 10/27/2022 1.32 03/14/2021 1.34 09/06/2020 1.27 08/06/2020 1.43 Bilirubin, Total (mg/dL) Date Value 10/27/2022 0.6 03/14/2021 1.1 ALT (U/L) Date Value 10/27/2022 13 03/14/2021 32 AST (U/L) Date Value 10/27/2022 14 03/14/2021 30 Estimated Creatinine Clearance: 56.6 mL/min (based on SCr of 1.19 mg/dL). ALLERGIES No Known Allergies 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: USP (current) use of anticoagulants History of dvt (deep vein thrombosis) Anticoagulation Episode Summary Current INR goal: 2.0-3.0 Assessment: INR result of 2.6 is therapeutic Plan: Current Warfarin Dosing As of 04/16/2023 Full warfarin instructions: 7.5 mg every Mon, Fri; 5 mg all other days Sent HowGood message Advised patient to continue current weekly dose as noted above Next home INR check scheduled on 05/07/2023 Jinny Shah RPh Clinical Pharmacist, Pharmacy Anticoagulation Clinic Pharmacy Anticoagulation Clinic Pager: [phone]. documented in [facility] encounter[facility] History of Past illness Narrative* Problem Noted Date Diagnosed Date Resolved Date Hypertensive kidney disease with stage 3a chronic kidney disease 11/06/2021 10/31/2022 Change in bowel movement 01/21/201812/2020 Episodic lightheadedness 04/11/2015 Bilateral edema of lower extremity 04/11/2015 01/10/2016 Paroxysmal atrial fibrillation 03/19/2015 04/11/2015 Skin lesion 03/05/2010 12/20/2014 documented as of this encounter (statuses as of 04/17/2023) [facility] Miscellaneous Notes* Telephone Encounter - Arabella Lopez RPh - 03/31/2023 1:41 PM EDT [facility] Ambulatory Pharmacy Anticoagulation Clinic Anticoagulation Episode Summary Anticoagulation Care Providers Provider Role Specialty Phone number Tien Serrano MD Referring Family Medicine [phone] Wilmer Morley is a 82 year old year old male patient being evaluated today for a Telemanagement visit. Patient is currently on the following anticoagulant(s) Warfarin. Labs PT INR (no units) Date Value 09/16/2021 2.9 09/02/2021 3.2 06/06/2021 2.5 biotel INR Home CoaguChek (no units) Date Value 03/31/2023 2.1 03/12/2023 1.9 02/26/2023 3.1 Hemoglobin (g/dL) Date Value 01/30/2022 13.9 03/14/2021 14.8 Hematocrit (%) Date Value 01/30/2022 43.0 03/14/2021 44.9 Platelet Count (k/uL) Date Value 01/30/2022 170 03/14/2021 191 Creatinine (mg/dL) Date Value 03/23/2023 1.19 11/20/2022 1.36 10/27/2022 1.32 03/14/2021 1.34 09/06/2020 1.27 08/06/2020 1.43 Bilirubin, Total (mg/dL) Date Value 10/27/2022 0.6 03/14/2021 1.1 ALT (U/L) Date Value 10/27/2022 13 03/14/2021 32 AST (U/L) Date Value 10/27/2022 14 03/14/2021 30 Estimated Creatinine Clearance: 56.6 mL/min (based on SCr of 1.19 mg/dL). ALLERGIES No Known Allergies 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: Anticoagulation Episode Summary Current INR goal: 2.0-3.0 Assessment: INR result of 2.1 is therapeutic Plan: Current Warfarin Dosing As of 03/31/2023 Full warfarin instructions: 7.5 mg every Mon, Fri; 5 mg all other days Sent HowGood message Advised patient to continue current weekly dose as noted above Next home INR check scheduled on 04/14/2023 Arabella Lopez RPh Clinical Pharmacist, Pharmacy Anticoagulation Clinic Pharmacy Anticoagulation Clinic Pager: [phone]. documented in this encounter[facility] History of Past illness Narrative* Problem Noted Date Diagnosed Date Resolved Date Hypertensive kidney disease with stage 3a chronic kidney disease 11/06/2021 10/31/2022 Change in bowel movement 01/21/201812/2020 Episodic lightheadedness 04/11/2015 Bilateral edema of lower extremity 04/11/2015 01/10/2016 Paroxysmal atrial fibrillation 03/19/2015 04/11/2015 Skin lesion 03/05/2010 12/20/2014 documented as of this encounter (statuses as of 03/31/2023) [facility]10-20-[facility] History of Present illness Narrative* Paulino Ruiz PA-C - 03/27/2023 8:40 AM EDT 82 year old male with c/o here to review sertraline Feels like sertraline didn't kick in well, was impatient. Going to [place] for winter. Notes medication is finally having an effect. Has used all 15 of last rx over 20 days. Feeling much better now. Asking for ativan over next 6 months 2/ week. Identifies on days he doesn't use Ativan in past Dr. Garcia said it was okay to have a beer, which he does routinely, generally just one From last visit: Has had afib for years. Notes was anxious. Was given ativan 0.5mg as needed, very effective. Gets a feeling of grogginess when get anxious. Was started on sertraline later. Stopped ativan three years ago. Was feeling better so tapered of sertraline 75mg over 3 weeks. Feels he is getting sx back. Has a feeling like too much to drink. Has hx remote syncope x 1 Hypertensive kidney disease with stage 3a chronic kidney disease (hcc) (primary encounter diagnosis) Hyperlipidemia ldl goal <100 Atrial fibrillation, unspecified type (hcc) USP 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 Moderate mitral regurgitation Moderate tricuspid regurgitation Asymptomatic lv dysfunction Venous (peripheral) insufficiency History of dvt (deep vein thrombosis) USP (current) use of anticoagulants Occup[employer] with [facility] in [place] Last visit 2022: mild stable BP elevation 10/15/2022 EKG SB, RBBB, LAD 11/24/2014 echo stable CONCLUSIONS: - Exam indication: Sustained atrial fibrillation - The left ventricle is normal in size. There is mild left ventricular hypertrophy. Left ventricular systolic function is mildly decreased. EF = 49 5% (2D 4-ch.) Baseline left ventricular diastolic function was not evaluated due to AF. - The right ventricle is mildly dilated. Right ventricular systolic function is normal. - The left atrial cavity is mildly dilated. - The right atrial cavity is dilated. - There is moderate (2+) mitral valve regurgitation. Mild thickened mitral leaflets with 2+ regurgitaion, no stenosis. - There is moderate (2+) tricuspid valve regurgitation. 2+ tricuspid regurgitation, RVSP 31mmHg C/W normal pulmonary pressure. - Mild aortic sclerosis, no regurgitation, no stenosis. - Since prior echocardiogram performed on 03/31/2012, the rhythm is now a fib. LVEF has decreased. The RA is larger, although RVSP is lower. There is more MR and TR. The small effusion is new. Current meds: Doxazosin 1 mg daily Flecainide 100mg twice a day Lisinopril 10mg daily Warfarin 5mg as directed Patient is compliant with meds Yes Monitors bp at home: Yes. If yes, readings: about the same as here today, occasionally 150-160 Denies side effects: No. Chest pain: No. Dyspnea: none. Edema: No. Palpitations: Yes. On occasion, has improved since restarting psych meds Syncope: one episode fully worked up. None since.. Headache: No. Dizziness: Yes. Associates as above Additional hx: Does treadmill for 30 minute and upper body work out. Feels getting out of breath with exercise working in yard or exercising. Last 3 Encounter BP Readings: Date: BP: 03/27/2023 144/62 02/19/2023 150/80 11/24/2022 150/62 Last 2 Encounter Wt Readings: Date: Wt: 03/27/2023 92.5 kg (204 lb) 02/19/2023 94.8 kg (209 lb) Component Latest Ref Rng & Units 01/30/2022 10/27/2022 11/20/2022 03/23/2023 WBC 3.70 - 11.00 k/uL 6.22 RBC 4.20 - 6.00 m/uL 4.42 Hemoglobin 13.0 - 17.0 g/dL 13.9 Hematocrit 39.0 - 51.0 % 43.0 MCV 80.0 - 100.0 fL 97.3 MCH 26.0 - 34.0 pg 31.4 MCHC 30.5 - 36.0 g/dL 32.3 RDW-CV 11.5 - 15.0 % 12.7 Platelet Count 150 - 400 k/uL 170 MPV 9.0 - 12.7 fL 10.8 Neut% % 72.3 Abs Neut (ANC) 1.45 - 7.50 k/uL 4.50 Lymph% % 19.5 Abs Lymph 1.00 - 4.00 k/uL 1.21 [place]% % 6.9 Abs [place] <0.87 k/uL 0.43 Eosin% % 0.8 Abs Eosin <0.46 k/uL 0.05 Baso% % 0.3 Abs Baso <0.11 k/uL <0.03 Immature Gran % % 0.2 IMMATURE GRANS (ABS) <0.10 k/uL <0.03 NRBC /100 WBC 0.0 Absolute nRBC <0.01 k/uL <0.01 DTYPE Auto Protein, Total 6.3 - 8.0 g/dL 7.2 6.8 Albumin 3.9 - 4.9 g/dL 4.2 4.0 Calcium 8.5 - 10.2 mg/dL 9.7 9.4 9.1 9.3 Bilirubin, Total 0.2 - 1.3 mg/dL 0.5 0.6 Alkaline Phosphatase 38 - 113 U/L 80 85 AST 14 - 40 U/L 18 14 ALT 10 - 54 U/L 19 13 Glucose 74 - 99 mg/dL 211 (H) 98 111 (H) 97 BUN 9 - 24 mg/dL 23 23 32 (H) 25 (H) Creatinine 0.73 - 1.22 mg/dL 1.17 1.32 (H) 1.36 (H) 1.19 Sodium 136 - 144 mmol/L 139 139 133 (L) 135 (L) Potassium 3.7 - 5.1 mmol/L 4.3 4.5 5.1 4.7 Chloride 97 - 105 mmol/L 101 104 99 102 CO2 22 - 30 mmol/L 27 28 26 23 Anion Gap 9 - 18 mmol/L 11 7 (L) 8 (L) 10 eGFR >=60 mL/min/1.73m 63 55 (L) 53 (L) 61 Cholesterol, Total <200 mg/dL 119 Triglyceride <150 mg/dL 71 HDL Cholesterol >39 mg/dL 52 Non HDL Cholesterol <130 mg/dL 67 Fasting Time hrs 10 VLDL Cholesterol <30 mg/dL 14 TC:HDL Ratio <5.10 2.29 LDL Cholesterol <100 mg/dL 53 LDL:HDL Ratio <2.54 1.02 Hyperglycemia 5.6 (10/27/2022) Current medications: Loperamide 1mg/5ml 5mL4 times a day as needed Hasn't used in a long time 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 Benign neoplasm of colon CKD (chronic kidney disease), stage III (HCC) 04/08/2018 Diverticulosis of colon (without mention of hemorrhage) Essential hypertension, benign 02/27/2010 Facial basal cell cancer 2009 Internal hemorrhoids without mention of complication Other acute embolism veins Other and unspecified hyperlipidemia hypertriglyeridemia Personal history of colonic polyps PAST SURGICAL HISTORY Procedure Laterality Date CATARACT EXTRACTION HX Left CATARACT SURGERY, COMPLEX 2009 R eye COLONOSCOPY FLX DX W/COLLJ SPEC WHEN PFRMD 08/05/2000 Colonoscopy COLONOSCOPY FLX DX W/COLLJ SPEC WHEN PFRMD 11/02/2002 Colonoscopy COLONOSCOPY FLX DX W/COLLJ SPEC WHEN PFRMD 01/29/2009 COLONOSCOPY FLX DX W/COLLJ SPEC WHEN PFRMD 02/24/2014 Colonoscopy COLONOSCOPY FLX DX W/COLLJ SPEC WHEN PFRMD 03/09/2018 MARCIAL Garcia-repeat 10 years ESOPHAGOGASTRODUODENOSCOPY TRANSORAL DIAGNOSTIC N/A 08/16/2020 LUZ MARINAMauro Garcia PAST SURGICAL HISTORY OF 2010 basal cell to right above upper lip Social History Tobacco Use Smoking status: Former Years: 1 Types: Cigarettes Quit date: 02/24/2011 Years since quittin.0 Smokeless tobacco: Never Substance Use Topics Alcohol use: Yes Alcohol/week: 5.0 standard drinks of alcohol Types: 1 Glasses of Wine (5oz), 1 Mixed Drinks per week Comment: one drink a day Drug use: No ACTIVE PROBLEM LIST Hyperlipidemia Ldl Goal <100 Generalized Anxiety Disorder ATRIAL FIBRILLATION Internal Hemorrhoids Without Mention of Complication Essential Hypertension, Benign Moderate Mitral Regurgitation Moderate Tricuspid Regurgitation Custodial (Current) Use of Anticoagulants Venous (Peripheral) Insufficiency History of Dvt (Deep Vein Thrombosis) Asymptomatic Lv Dysfunction Custodial Current Use of Antiarrhythmic Medical Therapy Stage 3a Chronic Kidney Disease (Hcc) Hyperglycemia Hx of Skin Cancer, Basal Cell Current Outpatient Medications Medication Sig Dispense Refill atorvastatin (LIPITOR) 20 mg tablet Take 1 tablet by mouth once daily. 90 tablet 1 warfarin (COUMADIN) 5 mg tablet 7.5 mg every Mon, Fri; 5 mg all other days 90 tablet 1 sertraline (ZOLOFT) 50 mg tablet Take 1 tablet by mouth once daily. 90 tablet 1 lisinopril (ZESTRIL) 10 mg tablet Take 1 tablet by mouth once daily. 90 tablet 2 warfarin (COUMADIN) 5 mg tablet 7.5 mg every Mon, Fri; 5 mg all other days 14 tablet 0 doxazosin (CARDURA) 1 mg tablet Take 1 tablet by mouth daily at bedtime. 90 tablet 3 flecainide (TAMBOCOR) 100 mg tablet Take 1 tablet by mouth twice daily. 180 tablet 3 loperamide (ANTI-DIARRHEAL) 1 mg/5 mL solution Take 5 mL by mouth four times daily as needed. Take 1/2 tablet daily No current facility-administered medications for this visit. RSV Vaccine(1 - 1-dose 60+ series) Never done Influenza Vaccine(1) due on 02/06/2023 Covid-19 Vaccine(2022-24 season) due on 02/06/2023 EXAM: BP 144/62 Pulse 64 Resp 16 Wt 92.5 kg (204 lb) SpO2 95% BMI 28.45 kg/m Pleasant older man in no acute distress. Alert and oriented all spheres. Euthymic, cheerful affect,and normal cognition. Speech normal. No deficits to learning or comprehension. Skin warm, dry, pink to lips and nailbeds. Normal turgor. Respirations regular and unlabored. HEENT: NCAT. No scleral icterus or conjunctival injection. TM's clear. Nose and oropharynx free from injection or lesion. Oral membranes moist and pink. No cervical lymph nodes. Thyroid non-tender, no masses, or enlargement. Carotids pulses 2+/4+ without bruits. No JVD with HOB at 30 degrees. Extrem: no clubbing or cyanosis. Edema: none. Extremities are warm and pink with prompt capillary refill. ASSESSMENT/PLAN: 1. Hypertensive kidney disease with stage 3a chronic kidney disease (HCC) - ICD9: 403.90, 585.3, ICD10: I12.9, N18.31 (primary diagnosis) - Controlled - Continue current medications - Recommend home blood pressure monitoring, to bring results to next visit - Encouraged sodium restriction, DASH or Mediterranean diet - Recommend regular aerobic exercise - eGFR: 61 Stable - Counseled on avoiding NSAIDs, adequate hydration 2. Hyperlipidemia LDL goal <100 - ICD9: 272.4, ICD10: E78.5 - Controlled - Continue current medications - Counseled on healthy diet and regular exercise 3. Atrial fibrillation, unspecified type (HCC) - ICD9: 427.31, ICD10: I48.91 stable 4. long term 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 - ICD9: V58.69, ICD10: Z79.899 compliant 5. Moderate mitral regurgitation - ICD9: 424.0, ICD10: I34.0 6. Moderate tricuspid regurgitation - ICD9: 397.0, ICD10: I07.1 7. Asymptomatic LV dysfunction - ICD9: 429.9, ICD10: I51.9 Follows with Alex Pyle 8. Venous (peripheral) insufficiency - ICD9: 459.81, ICD10: I87.2 Stable. 9. History of DVT (deep vein thrombosis) - ICD9: V12.51, ICD10: Z86.718 10. long term (current) use of anticoagulants - ICD9: V58.61, ICD10: Z79.01 compliant 11. Generalized anxiety disorder - ICD9: 300.02, ICD10: F41.1 Discussed use of ETOH as similar to ativan. Cannot mix ETOH and ativ - LORAZEPAM 0.5 MG TABLET - LORAZEPAM 0.5 MG TABLET 12. Hyperglycemia - ICD9: 790.29, ICD10: R73.9 Stable without medication 13. Encounter for immunization - ICD9: V03.89, ICD10: Z23 - INFLUENZA VACCINE, PRSV FREE, AGE 65+ YR, HIGH DOSE, QUADRIVALENT (FLUZONE HIGH-DOSE) - [employer] COVID-19 VACCINE ( SEASON) AGE 12+ YR - RSV PRINTED PHARMACY INSTRUCTIONS Paulino Ruiz PA-C Some of this note may have been copied and pasted for the purpose of history context and comparisonand has been adjusted for changes in prior data. Paulino Ruiz PA-C documented in [facility]* Diagnosis Hypertensive kidney disease with stage 3a chronic kidney disease (HCC)- Primary Hyperlipidemia LDL goal <100 Other and unspecified hyperlipidemia Atrial fibrillation, unspecified type (HCC) long term 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 Moderate mitral regurgitation Mitral valve disorders Moderate tricuspid regurgitation Diseases of tricuspid valve Asymptomatic LV dysfunction Heart disease, unspecified Venous (peripheral) insufficiency Unspecified venous (peripheral) insufficiency History of DVT (deep vein thrombosis) Personal history of venous thrombosis and embolism long term (current) use of anticoagulants Long-term (current) use of anticoagulants Generalized anxiety disorder Hyperglycemia Other abnormal glucose Encounter for immunization Need for other specified prophylactic vaccination against single bacterial disease documented in this encounter [facility] History of Past illness Narrative* Problem Noted Date Diagnosed Date Resolved Date Hypertensive kidney disease with stage 3a chronic kidney disease 11/06/2021 10/31/2022 Change in bowel movement 01/21/201812/2020 Episodic lightheadedness 04/11/2015 Bilateral edema of lower extremity 04/11/2015 01/10/2016 Paroxysmal atrial fibrillation 03/19/2015 04/11/2015 Skin lesion 03/05/2010 12/20/2014 documented as of this encounter (statuses as of 03/27/2023) [facility] History of Past illness Narrative* Problem Noted Date Diagnosed Date Resolved Date Hypertensive kidney disease with stage 3a chronic kidney disease 11/06/2021 10/31/2022 Change in bowel movement 01/21/201812/2020 Episodic lightheadedness 04/11/2015 Bilateral edema of lower extremity 04/11/2015 01/10/2016 Paroxysmal atrial fibrillation 03/19/2015 04/11/2015 Skin lesion 03/05/2010 12/20/2014 documented as of this encounter (statuses as of 03/14/2023) [facility] Miscellaneous Notes* Telephone Encounter - Jinny Shah, [facility] - 03/12/2023 3:25 PM EDT [facility] Ambulatory Pharmacy Anticoagulation Clinic Anticoagulation Episode Summary Anticoagulation Care Providers Provider Role Specialty Phone number Tien Serrano MD Referring Family Medicine [phone] Wilmer Morley is a 82 year old year old male patient being evaluated today for a Telemanagement visit. Patient is currently on the following anticoagulant(s) Warfarin. Labs PT INR (no units) Date Value 09/16/2021 2.9 09/02/2021 3.2 06/06/2021 2.5 biotel INR Home CoaguChek (no units) Date Value 03/12/2023 1.9 02/26/2023 3.1 02/10/2023 2.1 Hemoglobin (g/dL) Date Value 01/30/2022 13.9 03/14/2021 14.8 Hematocrit (%) Date Value 01/30/2022 43.0 03/14/2021 44.9 Platelet Count (k/uL) Date Value 01/30/2022 170 03/14/2021 191 Creatinine (mg/dL) Date Value 11/20/2022 1.36 10/27/2022 1.32 01/30/2022 1.17 03/14/2021 1.34 09/06/2020 1.27 08/06/2020 1.43 Bilirubin, Total (mg/dL) Date Value 10/27/2022 0.6 03/14/2021 1.1 ALT (U/L) Date Value 10/27/2022 13 03/14/2021 32 AST (U/L) Date Value 10/27/2022 14 03/14/2021 30 Estimated Creatinine Clearance: 50.1 mL/min (A) (based on SCr of 1.36 mg/dL (H)). ALLERGIES No Known Allergies 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: long term (current) use of anticoagulants History of dvt (deep vein thrombosis) Anticoagulation Episode Summary Current INR goal: 2.0-3.0 Assessment: INR result of 1.9 is SUBtherapeutic due to: Increased vitamin k intake Plan: Current Warfarin Dosing As of 03/12/2023 Full warfarin instructions: 03/12: 7.5 mg; Otherwise 7.5 mg every Mon, Fri; 5 mg all other days Called and spoke to patient/caregiver Advised patient to increase dose for 1 day only then resume weekly regimen Next home INR check scheduled on 03/26/23 Patient verbalizes understanding of the plan. Patient denies need for refills. Jinny Shah RP Clinical Pharmacist, Pharmacy Anticoagulation Clinic Pharmacy Anticoagulation Clinic Pager: [phone]. documented in this encounterMer[facility] History of Past illness Narrative* Problem Noted Date Diagnosed Date Resolved Date Hypertensive kidney disease with stage 3a chronic kidney disease 11/06/2021 10/31/2022 Change in bowel movement 01/21/201812/2020 Episodic lightheadedness 04/11/2015 Bilateral edema of lower extremity 04/11/2015 01/10/2016 Paroxysmal atrial fibrillation 03/19/2015 04/11/2015 Skin lesion 03/05/2010 12/20/2014 documented as of this encounter (statuses as of 02/27/2023) [facility] Miscellaneous Notes* Telephone Encounter - Jinny Shah [facility] - 02/26/2023 2:58 PM EDT [facility] Amb[facility] Anticoagulation Clinic Anticoagulation Episode Summary Anticoagulation Care Providers Provider Role Specialty Phone number Tien Serrano MD Referring Family Medicine [phone] Wilmer Morley is a 82 year old year old male patient being evaluated today for a Telemanagement visit. Patient is currently on the following anticoagulant(s) Warfarin. Labs PT INR (no units) Date Value 09/16/2021 2.9 09/02/2021 3.2 06/06/2021 2.5 biotel INR Home CoaguChek (no units) Date Value 02/26/2023 3.1 02/10/2023 2.1 01/23/2023 2.0 Hemoglobin (g/dL) Date Value 01/30/2022 13.9 03/14/2021 14.8 Hematocrit (%) Date Value 01/30/2022 43.0 03/14/2021 44.9 Platelet Count (k/uL) Date Value 01/30/2022 170 03/14/2021 191 Creatinine (mg/dL) Date Value 11/20/2022 1.36 10/27/2022 1.32 01/30/2022 1.17 03/14/2021 1.34 09/06/2020 1.27 08/06/2020 1.43 Bilirubin, Total (mg/dL) Date Value 10/27/2022 0.6 03/14/2021 1.1 ALT (U/L) Date Value 10/27/2022 13 03/14/2021 32 AST (U/L) Date Value 10/27/2022 14 03/14/2021 30 Estimated Creatinine Clearance: 50.1 mL/min (A) (based on SCr of 1.36 mg/dL (H)). ALLERGIES No Known Allergies 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: long term (current) use of anticoagulants History of dvt (deep vein thrombosis) Anticoagulation Episode Summary Current INR goal: 2.0-3.0 Assessment: INR result of 3.1 is SUPRAtherapeutic due to: Decreased vitamin k intake Plan: Current Warfarin Dosing As of 02/26/2023 Full warfarin instructions: 7.5 mg every Mon, Fri; 5 mg all other days Called and spoke to patient/caregiver Advised patient to continue current weekly dose as noted above and he will have a helping of vitamin K Next home INR check scheduled on 03/12/2023 Patient verbalizes understanding of the plan. Patient denies need for refills. Jinny Shah RPh Clinical Pharmacist, Pharmacy Anticoagulation Clinic Pharmacy Anticoagulation Clinic Pager: [phone]. documented in this encounterMer[facility] Evaluation note* Diagnosis Essential hypertension, benign- Primary Stage 3a chronic kidney disease (HCC) Generalized anxiety disorder USP 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 Atrial fibrillation, unspecified type (HCC) Dizziness Dizziness and giddiness Valvular heart disease Endocarditis, valve unspecified, unspecified cause documented in this encounter [facility] History of Past illness Narrative* Problem Noted Date Diagnosed Date Resolved Date Hypertensive kidney disease with stage 3a chronic kidney disease 11/06/2021 10/31/2022 Change in bowel movement 01/21/201812/2020 Episodic lightheadedness 04/11/2015 Bilateral edema of lower extremity 04/11/2015 01/10/2016 Paroxysmal atrial fibrillation 03/19/2015 04/11/2015 Skin lesion 03/05/2010 12/20/2014 documented as of this encounter (statuses as of 02/20/2023) [facility] Miscellaneous Notes* Telephone Encounter - Blanca Gomez RN - 02/19/2023 4:08 PM EDT Patient had 1 year script for Lisinopril sent to pharmacy in [place] in December. Asking if the script can be sent to [facility] instead? Pended. Thank you. documented in this encounterMer[facility]09-14-20[facility] History of Present illness Narrative* Paulino Ruiz PA-C - 02/19/2023 2:00 PM EDT 82 year old male with hx HTN, AF, HLD, Stage 3a CRF, hyperglycemia c/o anxiety issues. Has had afib for years. Notes was anxious. Was given ativan 0.5mg as needed, very effective. Gets a feeling of grogginess when get anxious. Was started on sertraline later. Stopped ativan three years ago. Was feeling better so tapered of sertraline 75mg over 3 weeks. Feels he is getting sx back. Has a feeling like too much to drink. Has hx remote syncope x [address] [employer] [facility] [employer] [facility] [place] Last visit 2022: mild stable BP elevation 10/15/2022 EKG SB, RBBB, LAD 11/24/2014 echo stable CONCLUSIONS: - Exam indication: Sustained atrial fibrillation - The left ventricle is normal in size. There is mild left ventricular hypertrophy. Left ventricular systolic function is mildly decreased. EF = 49 5% (2D 4-ch.) Baseline left ventricular diastolic function was not evaluated due to AF. - The right ventricle is mildly dilated. Right ventricular systolic function is normal. - The left atrial cavity is mildly dilated. - The right atrial cavity is dilated. - There is moderate (2+) mitral valve regurgitation. Mild thickened mitral leaflets with 2+ regurgitaion, no stenosis. - There is moderate (2+) tricuspid valve regurgitation. 2+ tricuspid regurgitation, RVSP 31mmHg C/W normal pulmonary pressure. - Mild aortic sclerosis, no regurgitation, no stenosis. - Since prior echocardiogram performed on 03/31/2012, the rhythm is now a fib. LVEF has decreased. The RA is larger, although RVSP is lower. There is more MR and TR. The small effusion is new. Current meds: Doxazosin 1 mg daily Lisinopril 10mg daily Patient is compliant with meds Yes Monitors bp at home: Yes. If yes, readings: Denies side effects: No. Chest pain: No. Dyspnea: none. Edema: No. Palpitations: Yes. On occasion Syncope: one episode fully worked up. None since.. Headache: No. Dizziness: Yes. Associates as above Last 3 Encounter BP Readings: Date: BP: 02/19/2023 150/80 11/24/2022 150/62 10/31/2022 160/64 Last 2 Encounter Wt Readings: Date: Wt: 02/19/2023 94.8 kg (209 lb) 10/31/2022 94.3 kg (207 lb 12.8 oz) Does treadmill for 30 minute and upper body work out. Feels getting out of breath with exercise working in yard or exercising. 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 Benign neoplasm of colon CKD (chronic kidney disease), stage III (HCC) 04/08/2018 Diverticulosis of colon (without mention of hemorrhage) Essential hypertension, benign 02/27/2010 Facial basal cell cancer 2010 Internal hemorrhoids without mention of complication Other acute embolism veins Other and unspecified hyperlipidemia hypertriglyeridemia Personal history of colonic polyps PAST SURGICAL HISTORY Procedure Laterality Date CATARACT EXTRACTION HX Left CATARACT SURGERY, COMPLEX 2009 R eye COLONOSCOPY FLX DX W/COLLJ SPEC WHEN PFRMD 08/05/2000 Colonoscopy COLONOSCOPY FLX DX W/COLLJ SPEC WHEN PFRMD 11/02/2002 Colonoscopy COLONOSCOPY FLX DX W/COLLJ SPEC WHEN PFRMD 01/29/2009 COLONOSCOPY FLX DX W/COLLJ SPEC WHEN PFRMD 02/24/2014 Colonoscopy COLONOSCOPY FLX DX W/COLLJ SPEC WHEN PFRMD 03/09/2018 LUZ MARINAMauro Garcia-repeat 10 years ESOPHAGOGASTRODUODENOSCOPY TRANSORAL DIAGNOSTIC N/A 08/16/2020 [facility] OF 2010 basal cell to right above upper lip Social History Tobacco Use Smoking status: Former Years: 1 Types: Cigarettes Quit date: 02/24/2011 Years since quittin.9 Smokeless tobacco: Never Substance Use Topics Alcohol use: Yes Alcohol/week: 5.0 standard drinks of alcohol Types: 1 Glasses of Wine (5oz), 1 Mixed Drinks per week Comment: one drink a day Drug use: No ACTIVE PROBLEM LIST Hyperlipidemia Ldl Goal <100 Generalized Anxiety Disorder ATRIAL FIBRILLATION Internal Hemorrhoids Without Mention of Complication Essential Hypertension, Benign Moderate Mitral Regurgitation Moderate Tricuspid Regurgitation Custodial (Current) Use of Anticoagulants Venous (Peripheral) Insufficiency History of Dvt (Deep Vein Thrombosis) Asymptomatic Lv Dysfunction [employer] Current Use of Antiarrhythmic Medical Therapy Stage 3a Chronic Kidney Disease (Hcc) Hyperglycemia Hx of Skin Cancer, Basal Cell Current Outpatient Medications Medication Sig Dispense Refill warfarin (COUMADIN) 5 mg tablet 7.5 mg every Mon, Fri; 5 mg all other days 14 tablet 0 doxazosin (CARDURA) 1 mg tablet Take 1 tablet by mouth daily at bedtime. 90 tablet 3 flecainide (TAMBOCOR) 100 mg tablet Take 1 tablet by mouth twice daily. 180 tablet 3 lisinopril (ZESTRIL) 10 mg tablet Take 1 tablet by mouth once daily. 90 tablet 3 atorvastatin (LIPITOR) 20 mg tablet Take 1 tablet by mouth once daily. 10 tablet 0 loperamide (ANTI-DIARRHEAL) 1 mg/5 mL solution Take 5 mL by mouth four times daily as needed. Take 1/2 tablet daily No current facility-administered medications for this visit. Covid-19 Vaccine(5 - Moderna series) due on 08/12/2022 Influenza Vaccine(1) due on 02/06/2023 EXAM: BP 150/80 Pulse 64 Resp 16 Wt 94.8 kg (209 lb) SpO2 98% BMI 29.15 kg/m BP w/Orthostatic Vitals Date and Time Orthostatic BP Orthostatic Pulse BP Pulse BP Position BP Site BP Cuff Size 02/20/23 0546 155/77 48 -- -- Standing Left Arm Regular Adult 02/20/23 0544 166/76 51 -- -- Supine Left Arm Regular Adult 02/19/23 1355 -- -- 150/80 64 -- -- -- Delayed documentation Peak Flow Date and Time PF Resp 02/19/23 1355 -- 16 Pleasant older adult man who appears younger than stated age in no acute distress. Alert and oriented all spheres. Normal affect and cognition. Speech normal. No deficits to learning or comprehension. Mood is euthymic, affect congruent Goal oriented Skin warm, dry, pink to lips and nailbeds. Normal turgor. Respirations regular and unlabored. HEENT: NCAT. No scleral icterus or conjunctival injection. TM's clear. Nose and oropharynx free from injection or lesion. Oral membranes moist and pink. No cervical lymph nodes. Thyroid non-tender, no masses, or enlargement. Carotids pulses 2+/4+ without bruits. No JVD with HOB at 30 degrees. Chest is normal shape. Lungs are clear to all draper with good air exchange through out. HRRR without murmur or gallop. No lifts, heaves, or rubs. Extrem: no clubbing or cyanosis. Edema: none. Extremities are warm and pink with prompt capillary refill. Stiff gait ASSESSMENT/PLAN: 1. Essential hypertension, benign - ICD9: 401.1, ICD10: I10 (primary diagnosis) - Uncontrolled - Continue current medications - Recommend home blood pressure monitoring, to bring results to next visit - Encouraged sodium restriction, DASH or Mediterranean diet - Recommend regular aerobic exercise - review at followup with Dr. Serrano 05/04/2023 - Follows with cardiology with same range with BP 2. Stage 3a chronic kidney disease (HCC) - ICD9: 585.3, ICD10: N18.31 - eGFR: 53 Stable - Counseled on avoiding NSAIDs, adequate hydration - BASIC METABOLIC PNL 3. Generalized anxiety disorder - ICD9: 300.02, ICD10: F41.1 Discussed use of enso not recommended in his age group: must use sparringly and with caution Will resume sertraline with goal to remain as sole agent Reviewed medication risks, side effects, not to mix medication with alcohol - SERTRALINE 50 MG TABLET - LORAZEPAM 0.5 MG TABLET 4. USP 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 - ICD9: V58.69, ICD10: Z79.899 Dizziness may be effect from flecainanide 5. Atrial fibrillation, unspecified type (HCC) - ICD9: 427.31, ICD10: I48.91 Currently regular bradycardic rhythm Has occasional flutters but asymptomatic 6. Dizziness - ICD9: 780.4, ICD10: R42 Patient feels this is identical to past issues with anxiety Discussed medication effects, cardiac risks Has echo scheduled with slipman Fall precautions reviewed- he is very careful 7. Valvular heart disease - ICD9: 424.90, ICD10: I38 As above F/u on medication through mychart over next 4 weeks on progress F/u here as needed and with upcoming appt Dr. Maggie Ruiz PA-C Some of this note may have been copied and pasted for the purpose of history context and comparison. documented in this encounterMer[facility]09-13-2023 Miscellaneous Notes* Telephone Encounter - Sylvie Gregory - 02/18/2023 10:28 AM EDT Patient has been identified by name and date of : Yes Requested Prescriptions Pending Prescriptions Disp Refills warfarin (COUMADIN) 5 mg tablet 14 tablet 0 Si.5 mg every Mon, Fri; 5 mg all other days MARY:11-24-22 NOV:02-19-23 RX INSTRUCTIONS: Patient aware RX will be sent to pharmacy. No need to notify patient. Sylvie Gregory documented in this encounterMercy Health St. [facility]09-13-2023 History of Past illness Narrative* Problem Noted Date Diagnosed Date Resolved Date Hypertensive kidney disease with stage 3a chronic kidney disease 11/06/2021 10/31/2022 Change in bowel movement 01/21/201812/2020 Episodic lightheadedness 04/11/2015 Bilateral edema of lower extremity 04/11/2015 01/10/2016 Paroxysmal atrial fibrillation 03/19/2015 04/11/2015 Skin lesion 03/05/2010 12/20/2014 documented as of this encounter (statuses as of 02/18/2023) [facility]-05-2023 Miscellaneous Notes* Telephone Encounter - Arabella Lopez [facility] - 02/10/2023 2:33 PM EDT [facility] Amb[facility] Clinic Anticoagulation Episode Summary Anticoagulation Care Providers Provider Role Specialty Phone number Tien Serrano MD Referring Family Medicine [phone] Wilmer Morley is a 82 year old year old male patient being evaluated today for a Telemanagement visit. Patient is currently on the following anticoagulant(s) Warfarin. Labs PT INR (no units) Date Value 09/16/2021 2.9 09/02/2021 3.2 06/06/2021 2.5 biotel INR Home CoaguChek (no units) Date Value 02/10/2023 2.1 01/23/2023 2.0 01/06/2023 2.6 Hemoglobin (g/dL) Date Value 01/30/2022 13.9 03/14/2021 14.8 Hematocrit (%) Date Value 01/30/2022 43.0 03/14/2021 44.9 Platelet Count (k/uL) Date Value 01/30/2022 170 03/14/2021 191 Creatinine (mg/dL) Date Value 11/20/2022 1.36 10/27/2022 1.32 01/30/2022 1.17 03/14/2021 1.34 09/06/2020 1.27 08/06/2020 1.43 Bilirubin, Total (mg/dL) Date Value 10/27/2022 0.6 03/14/2021 1.1 ALT (U/L) Date Value 10/27/2022 13 03/14/2021 32 AST (U/L) Date Value 10/27/2022 14 03/14/2021 30 CrCl cannot be calculated (Unknown ideal weight.). ALLERGIES No Known Allergies 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: Anticoagulation Episode Summary Current INR goal: 2.0-3.0 Assessment: INR result of 2.1 is therapeutic Plan: Current Warfarin Dosing As of 02/10/2023 Full warfarin instructions: 7.5 mg every Mon, Fri; 5 mg all other days Sent HowGood message Advised patient to continue current weekly dose as noted above Next home INR check scheduled on 02/24/2023 Arabella Lopez [facility] Clinical Pharmacist, Pharmacy Anticoagulation Clinic Pharmacy Anticoagulation Clinic Pager: [phone]. documented in this encounterMercy Health St. [facility]08-18-2023 Miscellaneous Notes* Telephone Encounter - Bea Adan RPh - 01/23/2023 4:18 PM EDT [facility] An[facility] Clinic Anticoagulation Episode Summary Anticoagulation Care Providers Provider Role Specialty Phone number Tien Serrano MD Referring Family Medicine [phone] Wilmer Morley is a 82 year old year old male patient being evaluated today for a Telemanagement visit. Patient is currently on the following anticoagulant(s) Warfarin. Labs PT INR (no units) Date Value 09/16/2021 2.9 09/02/2021 3.2 06/06/2021 2.5 biotel INR Home CoaguChek (no units) Date Value 01/23/2023 2.0 01/06/2023 2.6 12/22/2022 2.8 Hemoglobin (g/dL) Date Value 01/30/2022 13.9 03/14/2021 14.8 Hematocrit (%) Date Value 01/30/2022 43.0 03/14/2021 44.9 Platelet Count (k/uL) Date Value 01/30/2022 170 03/14/2021 191 Creatinine (mg/dL) Date Value 11/20/2022 1.36 10/27/2022 1.32 01/30/2022 1.17 03/14/2021 1.34 09/06/2020 1.27 08/06/2020 1.43 Bilirubin, Total (mg/dL) Date Value 10/27/2022 0.6 03/14/2021 1.1 ALT (U/L) Date Value 10/27/2022 13 03/14/2021 32 AST (U/L) Date Value 10/27/2022 14 03/14/2021 30 Estimated Creatinine Clearance: 49.9 mL/min (A) (based on SCr of 1.36 mg/dL (H)). ALLERGIES No Known Allergies 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: long term (current) use of anticoagulants Atrial fibrillation, unspecified type (hcc) History of dvt (deep vein thrombosis) Anticoagulation Episode Summary Current INR goal: 2.0-3.0 Assessment: INR result of 2.0 is therapeutic Plan: Current Warfarin Dosing As of 01/23/2023 Full warfarin instructions: 7.5 mg every Mon, Fri; 5 mg all other days Sent HowGood message Advised patient to continue current weekly dose as noted above Next home INR check scheduled on 02/06/2023 Bea Adan RPh Clinical Pharmacist, Pharmacy Anticoagulation Clinic Pharmacy Anticoagulation Clinic Pager: [phone]. documented in this encounterMercy Health St. [facility]08-18-2023 History of Past illness Narrative* Problem Noted Date Diagnosed Date Resolved Date Hypertensive kidney disease with stage 3a chronic kidney disease 11/06/2021 10/31/2022 Change in bowel movement 01/21/201812/2020 Episodic lightheadedness 04/11/2015 Bilateral edema of lower extremity 04/11/2015 01/10/2016 Paroxysmal atrial fibrillation 03/19/2015 04/11/2015 Skin lesion 03/05/2010 12/20/2014 documented as of this encounter (statuses as of 01/24/2023) [facility]-02-2023 Miscellaneous Notes* Telephone Encounter - Tra Foss LPN - 01/07/2023 1:31 PM EDT Patient phones requesting refills as follows: Requested Prescriptions Pending Prescriptions Disp Refills doxazosin (CARDURA) 1 mg tablet 10 tablet 0 Sig: Take 1 tablet by mouth daily at bedtime. flecainide (TAMBOCOR) 100 mg tablet 10 tablet 0 Sig: Take 1 tablet by mouth twice daily. *Previous 90 day rx's were cancelled when the short term supply rx's were sent to pharmacy. Please review and advise. Tra Foss LPN documented in this encounterMercy Health St. [facility]08-02-2023 History of Past illness Narrative* Problem Noted Date Diagnosed Date Resolved Date Hypertensive kidney disease with stage 3a chronic kidney disease 11/06/2021 10/31/2022 Change in bowel movement 01/21/201812/2020 Episodic lightheadedness 04/11/2015 Bilateral edema of lower extremity 04/11/2015 01/10/2016 Paroxysmal atrial fibrillation 03/19/2015 04/11/2015 Skin lesion 03/05/2010 12/20/2014 documented as of this encounter (statuses as of 01/07/2023) [facility]-14-2023 Miscellaneous Notes* Telephone Encounter - Bea Adan RPh - 12/19/2022 2:32 PM EDT Patient due to test INR today. Will continue to monitor for results. Bea Adan RPh documented in this encounterMercy Health St. [facility]07-14-2023 History of Past illness Narrative* Problem Noted Date Diagnosed Date Resolved Date Hypertensive kidney disease with stage 3a chronic kidney disease 11/06/2021 10/31/2022 Change in bowel movement 01/21/201812/2020 Episodic lightheadedness 04/11/2015 Bilateral edema of lower extremity 04/11/2015 01/10/2016 Paroxysmal atrial fibrillation 03/19/2015 04/11/2015 Skin lesion 03/05/2010 12/20/2014 documented as of this encounter (statuses as of 12/19/2022) [facility]-10-2023 Miscellaneous Notes* Telephone Encounter - Cortney Laughlin LPN - 12/15/2022 10:44 AM EDT Pt calls states he is on vacation , something has happened that is stopping him from returning for another 10 days .Asking if the following scripts can be called to a local pharmacy for a 10 day supply for him? Please advise . They are pended for you. documented in this encounterMercy Health St. [facility]07-10-2023 History of Past illness Narrative* Problem Noted Date Diagnosed Date Resolved Date Hypertensive kidney disease with stage 3a chronic kidney disease 11/06/2021 10/31/2022 Change in bowel movement 01/21/201812/2020 Episodic lightheadedness 04/11/2015 Bilateral edema of lower extremity 04/11/2015 01/10/2016 Paroxysmal atrial fibrillation 03/19/2015 04/11/2015 Skin lesion 03/05/2010 12/20/2014 documented as of this encounter (statuses as of 12/15/2022) [facility]-30-2023 Miscellaneous Notes* Telephone Encounter - Lia Willard Ma - 12/05/2022 3:18 PM EDT Patient was notified Lia Willard Ma * Telephone Encounter - Katy Galdamez APRN.CNP - 12/05/2022 3:14 PM EDT Blood pressures look good. Please continue the same medication. Katy Galdamez APRN.CNP * Telephone Encounter - Blanca Gomez RN - 12/05/2022 11:45 AM EDT Patient calling with BP readings for Kayt Galdamez CNP. Pt was instructed to let Katy know a week's worth of BP's: 11/27 112/63 P40 11/28 114/60 P58 11/29 127/64 P47 11/30 136/68 P50 12/01 122/57 P53 12/02 128/60 P51 Please call patient if provider has additional instructions. Blanca Gomez RN documented in this encounterMercy Health St. [facility]06-30-2023 Miscellaneous Notes* Telephone Encounter - Ghazal Bailey RPh - 12/05/2022 12:07 PM EDT [employer] message sent for therapeutic INR. documented in this encounterMercy Health St. [facility]06-30-2023 History of Past illness Narrative* Problem Noted Date Resolved Date Hypertensive kidney disease with stage 3a chronic kidney disease 11/06/2021 10/31/2022 Change in bowel movement 01/21/2018 021 Episodic lightheadedness 04/11/2015 018 Bilateral edema of lower extremity 04/11/2015 01/10/2016 Paroxysmal atrial fibrillation 03/19/2015 1 06/11/2014 Skin lesion 03/05/2010 12/20/2014 documented as of this encounter (statuses as of 12/05/2022) [facility]-30-[facility] History of Past illness Narrative* Problem Noted Date Resolved Date Hypertensive kidney disease with stage 3a chronic kidney disease 11/06/2021 10/31/2022 Change in bowel movement 01/21/2018 021 Episodic lightheadedness 04/11/2015 018 Bilateral edema of lower extremity 04/11/2015 01/10/2016 Paroxysmal atrial fibrillation 03/19/2015 1 06/11/2014 Skin lesion 03/05/2010 12/20/2014 documented as of this encounter (statuses as of 12/05/2022) [facility]-20-2023 Miscellaneous Notes* Telephone Encounter - Tra Foss LPN - 11/25/2022 3:44 PM EDT Referral faxed. Tra Foss LPN * Telephone Encounter - Katy Galdamez APRN.[employer] - 11/24/2022 8:11 PM EDT Can we please forward gen surg referral to Dr. Verónica Garcia. Katy Galdamez APRN.CNP documented in this encounterMercy Health St. [facility]06-19-2023 Instructions* Patient Instructions* Katy Galdamez APRN.CNP - 11/24/2022 9:47 AM EDT Continue the same medications. Send me the blood pressures in a week. documented in this encounterMercy Health St. [facility]06-19-2023 History of Present illness Narrative* Katy Galdamez APRN.CNP - 11/24/2022 9:21 AM EDT This is a 81 year old male who presents today with: Patient presents with: Recheck: 1 month follow up HISTORY OF PRESENT ILLNESS: Wilmer Morley is a 81 year old male. Patient presents with: Recheck: 1 month follow up Pt presents today for recheck blood pressure. BP was elevated at last visit. Flomax was stopped. Doxazosin was added. No worsening noturia. Stream about the same. More urgency with urination. BP elevated here. Has been check in with his home cuff -- 120's/60's. 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 Benign neoplasm of colon CKD (chronic kidney disease), stage III (HCC) 04/08/2018 Diverticulosis of colon (without mention of hemorrhage) Essential hypertension, benign 02/27/2010 Facial basal cell cancer 2009 Internal hemorrhoids without mention of complication Other acute embolism veins Other and unspecified hyperlipidemia hypertriglyeridemia Personal history of colonic polyps PAST SURGICAL HISTORY Procedure Laterality Date CATARACT EXTRACTION HX Left CATARACT SURGERY, COMPLEX 2009 R eye COLONOSCOPY FLX DX W/COLLJ SPEC WHEN PFRMD 08/05/2000 Colonoscopy COLONOSCOPY FLX DX W/COLLJ SPEC WHEN PFRMD 11/02/2002 Colonoscopy COLONOSCOPY FLX DX W/COLLJ SPEC WHEN PFRMD 01/29/2009 COLONOSCOPY FLX DX W/COLLJ SPEC WHEN PFRMD 02/24/2014 Colonoscopy COLONOSCOPY FLX DX W/COLLJ SPEC WHEN PFRMD 03/09/2018 LUZ MARINAMauro Garcia-repeat 10 years ESOPHAGOGASTRODUODENOSCOPY TRANSORAL DIAGNOSTIC N/A 08/16/2020 MARCIAL Garcia PAST SURGICAL HISTORY OF 2010 basal cell to right above upper lip ALLERGIES Patient has no known allergies. MEDICATIONS Current Outpatient Medications Medication Sig doxazosin (CARDURA) 1 mg tablet Take 1 tablet by mouth daily at bedtime. warfarin (COUMADIN) 5 mg tablet 7.5 mg every Mon, Fri; 5 mg all other days lisinopril (ZESTRIL, PRINIVIL) 10 mg tablet Take 1 tablet by mouth once daily. atorvastatin (LIPITOR) 20 mg tablet Take 1 tablet by mouth once daily. flecainide (TAMBOCOR) 100 mg tablet Take 1 tablet by mouth twice daily. loperamide (ANTI-DIARRHEAL) 1 mg/5 mL solution Take 5 mL by mouth four times daily as needed. Take 1/2 tablet daily No current facility-administered medications for this visit. FAMILY HISTORY Problem Relation Age of Onset Heart Father CHF Heart Mother CHF Heart Brother [place] - rheumatic fever Cancer Brother gastric Asthma Sister Social History Tobacco Use Smoking status: Former Years: 1.00 Types: Cigarettes Quit date: 02/24/2011 Years since quittin.7 Smokeless tobacco: Never Substance Use Topics Alcohol use: Yes Alcohol/week: 5.0 standard drinks Types: 1 Glasses of Wine (5oz), 1 Mixed Drinks per week Comment: one drink a day Drug use: No EXAM: BP 150/62 Pulse 63 Resp 16 SpO2 96% PHYSICAL EXAM: General Appearance: Well appearing, alert, in no acute distress, well-hydrated, well nourished.. Skin: Skin color, texture, turgor normal, no suspicious rashes or lesions. Head: Normocephalic, no masses, lesions, tenderness or abnormalities. Eyes: Anicteric sclera. Extraocular movements are intact. Lungs: Lungs clear to auscultation. No wheezing, rhonchi, rales.. Heart: RRR without murmur, gallop, or rubs. No ectopy. Neurologic: Gait normal. ASSESSMENT/PLAN: 1. Essential hypertension, benign - ICD9: 401.1, ICD10: I10 (primary diagnosis) - Home blood pressure readings controlled - Continue current medications - Recommend home blood pressure monitoring, to bring results to next visit - Encouraged sodium restriction, DASH or Mediterranean diet - Recommend regular aerobic exercise He will check daily home blood pressures for a week and send results to provider. If above goal, consider increasing doxazosin, as may help with urinary symptoms, as well. 2. Screening for colon cancer - ICD9: V76.51, ICD10: Z12.11 Reports d/t 5 year colonoscopy. Previously done by Dr. Verónica Garcia. - CONSULT TO GENERAL SURGERY Discussed treatment plan and patient voices understanding. Patient's questions answered appropriately. Medications and potential side effects were discussed and patient voices understanding. Return to the office as scheduled or as needed for worsening/no improvement. Katy Galdamez APRN.[employer] documented in this encounterMercy Health St. [facility]06-15-2023 Miscellaneous Notes* Telephone Encounter - Marcelina Flores [facility] - 11/20/2022 4:23 PM EDT [facility] Amb[facility] Pharmacy Anticoagulation Clinic Anticoagulation Episode Summary Anticoagulation Care Providers Provider Role Specialty Phone number Tien Serrano MD Referring Family Medicine [phone] Wilmer Morley is a 81 year old year old male patient being evaluated today for a Telemanagement visit. Patient is currently on the following anticoagulant(s) Warfarin. Labs PT INR (no units) Date Value 09/16/2021 2.9 09/02/2021 3.2 06/06/2021 2.5 biotel INR Home CoaguChek (no units) Date Value 11/20/2022 2.3 11/05/2022 2.2 10/22/2022 2.0 Hemoglobin (g/dL) Date Value 01/30/2022 13.9 03/14/2021 14.8 Hematocrit (%) Date Value 01/30/2022 43.0 03/14/2021 44.9 Platelet Count (k/uL) Date Value 01/30/2022 170 03/14/2021 191 Creatinine (mg/dL) Date Value 11/20/2022 1.36 10/27/2022 1.32 01/30/2022 1.17 03/14/2021 1.34 09/06/2020 1.27 08/06/2020 1.43 Bilirubin, Total (mg/dL) Date Value 10/27/2022 0.6 03/14/2021 1.1 ALT (U/L) Date Value 10/27/2022 13 03/14/2021 32 AST (U/L) Date Value 10/27/2022 14 03/14/2021 30 Estimated Creatinine Clearance: 50.8 mL/min (A) (based on SCr of 1.36 mg/dL (H)). ALLERGIES No Known Allergies 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: History of dvt (deep vein thrombosis) long term (current) use of anticoagulants Atrial fibrillation, unspecified type (hcc) Anticoagulation Episode Summary Current INR goal: 2.0-3.0 Assessment: INR result of 2.3 is therapeutic Plan: Current Warfarin Dosing As of 11/20/2022 Full warfarin instructions: 7.5 mg every Mon, Fri; 5 mg all other days Sent ClasskickharSingWho message Advised patient to continue current weekly dose as noted above Next home INR check scheduled on 12/04/2022 Marcelina Flores RPh Clinical Pharmacist, Pharmacy Anticoagulation Clinic Pharmacy Anticoagulation Clinic Pager: [phone]. documented in this encounterMercy Health St. [facility]05-31-2023 Miscellaneous Notes* Telephone Encounter - Ghazal Bailey RPh - 11/05/2022 3:39 PM EDT Mychart message sent for therapeutic INR. documented in this encounterMercy Health St. [facility]05-16-2023 Miscellaneous Notes* Telephone Encounter - Love Awad RPh - 10/21/2022 11:18 AM EDT Patient was due to test INR today. Will continue to monitor for results. Love Felisha Delmi, PharmD documented in this encounterMercy Health St. [facility]03-28-2023 Miscellaneous Notes* Telephone Encounter - Arabella Lopez RPh - 09/02/2022 1:50 PM EDT Wilmer Morley was called and reminded to test INR today or as soon as possible. Left VM Arabella Lopez RPh * Telephone Encounter - Arabella Lopez RPh - 08/26/2022 3:07 PM EDT Patient due to test INR today. Will continue to monitor for results. Arabella Lopez RPh documented in this encounterMer[facility] Health [facility]. [facility]03-16-2023 Miscellaneous Notes* Telephone Encounter - Dariela Batista LPN - 08/21/2022 3:35 PM EDT Patient phones requesting refills as follows: Requested Prescriptions Pending Prescriptions Disp Refills warfarin (COUMADIN) 5 mg tablet 90 tablet 1 Si.5 mg every Mon, Fri; 5 mg all other days MARY-04/09/22 Labs-02/04/22 NOV-10/31/22 med filled 02/20/22 Please review and advise. Dariela Batista LPN documented in this encounterMercy Health [facility]. [facility]03-08-2023 Miscellaneous Notes* Telephone Encounter - Ghazal Bailey RPh - 08/13/2022 8:57 AM EST Mychart message sent for therapeutic INR. documented in this encounterMercy Health St. [facility]03-01-2023 Miscellaneous Notes* Telephone Encounter - Alejandrina Rebollar LPN - 08/06/2022 11:31 AM EST Patient has been identified by name and date of : Yes Patient phones for refill(s): Requested Prescriptions Pending Prescriptions Disp Refills lisinopril (ZESTRIL, PRINIVIL) 10 mg tablet 90 tablet 3 Sig: Take 1 tablet by mouth once daily. Date of last office visit in primary care: 04/29/2022 10/31/2022 Please advise. Thank you. Alejandrina Rebollar LPN documented in this encounterMercy Health St. [facility]02-16-2023 Miscellaneous Notes* Telephone Encounter - Jinny Shah, [facility] - 07/24/2022 12:59 PM EST [facility] Ambulatory Pharmacy Anticoagulation Clinic Anticoagulation Episode Summary Anticoagulation Care Providers Provider Role Specialty Phone number Tien Serrano MD Referring Family Medicine [phone] Wilmer Morley is a 81 year old year old male patient being evaluated today for a Telemanagement visit. Patient is currently on the following anticoagulant(s) Warfarin. Labs PT INR (no units) Date Value 09/16/2021 2.9 09/02/2021 3.2 06/06/2021 2.5 biotel INR Home CoaguChek (no units) Date Value 07/24/2022 2.3 07/11/2022 2.4 06/24/2022 2.3 Hemoglobin (g/dL) Date Value 01/30/2022 13.9 03/14/2021 14.8 Hematocrit (%) Date Value 01/30/2022 43.0 03/14/2021 44.9 Platelet Count (k/uL) Date Value 01/30/2022 170 03/14/2021 191 Creatinine (mg/dL) Date Value 01/30/2022 1.17 10/15/2021 1.18 10/10/2021 1.43 03/14/2021 1.34 09/06/2020 1.27 08/06/2020 1.43 Bilirubin, Total (mg/dL) Date Value 01/30/2022 0.5 03/14/2021 1.1 ALT (U/L) Date Value 01/30/2022 19 03/14/2021 32 AST (U/L) Date Value 01/30/2022 18 03/14/2021 30 Estimated Creatinine Clearance: 59.3 mL/min (based on SCr of 1.17 mg/dL). ALLERGIES No Known Allergies 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: History of dvt (deep vein thrombosis) long term (current) use of anticoagulants Atrial fibrillation, unspecified type (hcc) Anticoagulation Episode Summary Current INR goal: 2.0-3.0 Assessment: INR result of 2.3 is therapeutic Plan: Current Warfarin Dosing As of 07/24/2022 Full warfarin instructions: 7.5 mg every Mon, Fri; 5 mg all other days Sent HowGood message Advised patient to continue current weekly dose as noted above Next home INR check scheduled on 08/07/2022 Jinny Shah [facility] Clinical Pharmacist, Pharmacy Anticoagulation Clinic Pharmacy Anticoagulation Clinic Pager: [phone]. documented in this encounterMercy Health St. [facility]02-03-2023 Miscellaneous Notes* Telephone Encounter - Bea Adan [facility] - 07/11/2022 2:35 PM EST [facility] Ambulatory Pharmacy Anticoagulation Clinic Anticoagulation Episode Summary Anticoagulation Care Providers Provider Role Specialty Phone number Tien Serrano MD Referring Internal Medicine [phone] Wilmer Morley is a 81 year old year old male patient being evaluated today for a Telemanagement visit. Patient is currently on the following anticoagulant(s) Warfarin. Labs PT INR (no units) Date Value 09/16/2021 2.9 09/02/2021 3.2 06/06/2021 2.5 biotel INR Home CoaguChek (no units) Date Value 07/11/2022 2.4 06/24/2022 2.3 06/10/2022 2.8 Hemoglobin (g/dL) Date Value 01/30/2022 13.9 03/14/2021 14.8 Hematocrit (%) Date Value 01/30/2022 43.0 03/14/2021 44.9 Platelet Count (k/uL) Date Value 01/30/2022 170 03/14/2021 191 Creatinine (mg/dL) Date Value 01/30/2022 1.17 10/15/2021 1.18 10/10/2021 1.43 03/14/2021 1.34 09/06/2020 1.27 08/06/2020 1.43 Bilirubin, Total (mg/dL) Date Value 01/30/2022 0.5 03/14/2021 1.1 ALT (U/L) Date Value 01/30/2022 19 03/14/2021 32 AST (U/L) Date Value 01/30/2022 18 03/14/2021 30 Estimated Creatinine Clearance: 59.3 mL/min (based on SCr of 1.17 mg/dL). ALLERGIES No Known Allergies 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: History of dvt (deep vein thrombosis) long term (current) use of anticoagulants Atrial fibrillation, unspecified type (hcc) Anticoagulation Episode Summary Current INR goal: 2.0-3.0 Assessment: INR result of 2.4 is therapeutic Plan: Current Warfarin Dosing As of 07/11/2022 Full warfarin instructions: 7.5 mg every Mon, Fri; 5 mg all other days Sent HowGood message Advised patient to continue current weekly dose as noted above Next home INR check scheduled on 07/25/2022 Bea Adan RPh Clinical Pharmacist, Pharmacy Anticoagulation Clinic Pharmacy Anticoagulation Clinic Pager: [phone]. documented in this encounterMercy Health [facility]01-17-2023 Miscellaneous Notes* Telephone Encounter - Arabella Lopez RPh - 06/24/2022 3:42 PM EST [employer] message sent with INR result, dosing and information on when to test next. Arabella Lpoez RPh, PharmD, CACP Clinical Pharmacist, Pharmacy Anticoagulation Clinic documented in this encounterMercy Health St. [facility]12-29-2022 Miscellaneous Notes* Telephone Encounter - Jinny Shah RPh - 06/05/2022 2:18 PM EST Patient due to test INR today. Will continue to monitor for results. Jinny Shah RPh documented in this encounterMercy Health St. [facility]12-15-2022 Miscellaneous Notes* Telephone Encounter - Jinny Shah RPh - 05/22/2022 1:12 PM EST [facility] Clinic Anticoagulation Episode Summary Anticoagulation Care Providers Provider Role Specialty Phone number Tien Serrano MD Referring Family Medicine [phone] Wilmer Morley is a 81 year old year old male patient being evaluated today for a Telemanagement visit. Patient is currently on the following anticoagulant(s) Warfarin. Labs PT INR (no units) Date Value 09/16/2021 2.9 09/02/2021 3.2 06/06/2021 2.5 biotel INR Home CoaguChek (no units) Date Value 05/22/2022 3.2 05/07/2022 2.6 04/22/2022 2.3 Hemoglobin (g/dL) Date Value 01/30/2022 13.9 03/14/2021 14.8 Hematocrit (%) Date Value 01/30/2022 43.0 03/14/2021 44.9 Platelet Count (k/uL) Date Value 01/30/2022 170 03/14/2021 191 Creatinine (mg/dL) Date Value 01/30/2022 1.17 10/15/2021 1.18 10/10/2021 1.43 03/14/2021 1.34 09/06/2020 1.27 08/06/2020 1.43 Bilirubin, Total (mg/dL) Date Value 01/30/2022 0.5 03/14/2021 1.1 ALT (U/L) Date Value 01/30/2022 19 03/14/2021 32 AST (U/L) Date Value 01/30/2022 18 03/14/2021 30 Estimated Creatinine Clearance: 59.3 mL/min (based on SCr of 1.17 mg/dL). ALLERGIES No Known Allergies 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: History of dvt (deep vein thrombosis) long term (current) use of anticoagulants Atrial fibrillation, unspecified type (hcc) Anticoagulation Episode Summary Current INR goal: 2.0-3.0 Assessment: INR result of 3.2 is SUPRAtherapeutic due to: Decreased vitamin k intake Plan: Current Warfarin Dosing As of 05/22/2022 Full warfarin instructions: 05/22: 2.5 mg; Otherwise 7.5 mg every Mon, Fri; 5 mg all other days; Starting 05/22/2022 Called and spoke to patient/caregiver Advised patient to decrease dose for 1 day only then resume weekly regimen Next home INR check scheduled on 06/05/2022 Patient verbalizes understanding of the plan. Patient denies need for refills. Jinny Shah [facility] Clinical Pharmacist, Pharmacy Anticoagulation Clinic Pharmacy Anticoagulation Clinic Pager: [phone]. documented in this encounterMercy Health St. [facility]11-30-2022 Miscellaneous Notes* Telephone Encounter - Ghazal Bailey [facility] - 05/07/2022 1:59 PM EST [employer] message sent for therapeutic INR. * Telephone Encounter - Arabella Lopez [facility] - 05/06/2022 4:18 PM EST Wilmer Morley was called and reminded to test INR today or as soon as possible. Arabella Lopez [facility] documented in this encounterMercy Health St. [facility]11-22-2022 History of Present illness Narrative* Stephania Marcus, RT(R) - 04/29/2022 3:40 PM EST Radiology Service Progress Note PATIENT NAME: Wilmer Morley DATE OF SERVICE: April 29, 2022 TIME: 3:43 PM PATIENT IDENTITY VERIFICATION COMPLETED USING TWO (2) IDENTIFIERS: Name and Date of confirmedby patient verbally. FALL SCREENING: Has the patient had 2 falls in the last year or 1 fall with injury or currently using an Ambulatory Assistive Device (Walker, Cane, Wheelchair, Crutches, etc.)? No PATIENT GENDER DATA: Male PATIENT RELEVANT IMPLANT DATA REVIEWED: Yes RADIOLOGY DEPARTMENT: General X-ray: Exam(s) Completed: Chest X-Ray PERIPHERAL IV DATA: Not applicable SIGNED BY: RT Yahir(R) April 29, 2022 3:43 PM documented in this encounterMercy Health St. [facility]11-22-2022 History of Present illness Narrative* Tien Serrano MD - 04/29/2022 3:03 PM EST Patient presents with: 6 Month Exam HPI: Patient presents today for office visit for follow up. Bp is initially up. Saw Dr Head recently. He told him to take his meds at night. Home bps have been very good. No current chest pain, no new dyspnea. No edema. No palpitations. [facility] No bleeding or bruising issues. Follows with pharmacy regularly. Psych: wants to decrease dose. Only taking 50 mg day. No depressive or anxiety symptoms. No side effects. No myalgias. No urinary issues. Had a cold two weeks ago. No fever or chills. No issues with taste or smell. Did home covids Is overall feeling better MEDICATIONS: Current Outpatient Medications Medication Sig tamsulosin (FLOMAX) 0.4 mg Take 1 capsule by mouth daily at bedtime. atorvastatin (LIPITOR) 20 mg tablet Take 1 tablet by mouth once daily. warfarin (COUMADIN) 5 mg tablet 7.5 mg every Mon, Fri; 5 mg all other days flecainide (TAMBOCOR) 100 mg tablet Take 1 tablet by mouth twice daily. sertraline (ZOLOFT) 50 mg tablet Take 1.5 tablets by mouth once daily. (Patient taking differently:Take 50 mg by mouth once daily.) lisinopril (ZESTRIL, PRINIVIL) 10 mg tablet Take 1 tablet by mouth once daily. loperamide (ANTI-DIARRHEAL) 1 mg/5 mL solution Take 5 mL by mouth four times daily as needed. Take 1/2 tablet daily No current facility-administered medications for this visit. 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 Benign neoplasm of colon CKD (chronic kidney disease), stage III (HCC) 04/08/2018 Diverticulosis of colon (without mention of hemorrhage) Essential hypertension, benign 02/27/2010 Facial basal cell cancer 2009 Internal hemorrhoids without mention of complication Other acute embolism veins Other and unspecified hyperlipidemia hypertriglyeridemia Personal history of colonic polyps PAST SURGICAL HISTORY Procedure Laterality Date CATARACT EXTRACTION HX Left CATARACT SURGERY, COMPLEX 2009 R eye COLONOSCOPY FLX DX W/COLLJ SPEC WHEN PFRMD 08/05/2000 Colonoscopy COLONOSCOPY FLX DX W/COLLJ SPEC WHEN PFRMD 11/02/2002 Colonoscopy COLONOSCOPY FLX DX W/COLLJ SPEC WHEN PFRMD 01/29/2009 COLONOSCOPY FLX DX W/COLLJ SPEC WHEN PFRMD 02/24/2014 Colonoscopy COLONOSCOPY FLX DX W/COLLJ SPEC WHEN PFRMD 03/09/2018 MARCIAL Garcia-repeat 10 years ESOPHAGOGASTRODUODENOSCOPY TRANSORAL DIAGNOSTIC N/A 08[facility]16/[facility] 2010 basal cell to right above upper lip FAMILY HISTORY Problem Relation Age of Onset Heart Father CHF Heart Mother CHF Heart Brother [place] - rheumatic fever Cancer Brother gastric Asthma Sister Social History Tobacco Use Smoking status: Former Years: 1.00 Types: Cigarettes Quit date: 02/24/2011 Years since quittin.1 Smokeless tobacco: Never Substance Use Topics Alcohol use: Yes Alcohol/week: 5.0 standard drinks Types: 1 Glasses of Wine (5oz), 1 Mixed Drinks per week Comment: one drink a day Drug use: No Reviewed current medications, allergies, past medical history, surgical history, family history andsocial history today. REVIEW OF SYSTEMS All other reviewed and negative other than HPI. HEALTH MAINTENANCE: Reviewed health maintenance issues today and recommended the following in detail. BP CONTROLLED (<130/80) Never done ADVANCE DIRECTIVE DISCUSSION -discussed does not have available. DEPRESSION ASSESSMENT Never done Component Latest Ref Rng & Units 01/30/2022 WBC 3.70 - 11.00 k/uL 6.22 RBC 4.20 - 6.00 m/uL 4.42 Hemoglobin 13.0 - 17.0 g/dL 13.9 Hematocrit 39.0 - 51.0 % 43.0 MCV 80.0 - 100.0 fL 97.3 MCH 26.0 - 34.0 pg 31.4 MCHC 30.5 - 36.0 g/dL 32.3 RDW-CV 11.5 - 15.0 % 12.7 Platelet Count 150 - 400 k/uL 170 MPV 9.0 - 12.7 fL 10.8 Neut% % 72.3 Abs Neut (ANC) 1.45 - 7.50 k/uL 4.50 Lymph% % 19.5 Abs Lymph 1.00 - 4.00 k/uL 1.21 [place]% % 6.9 Abs [place] <0.87 k/uL 0.43 Eosin% % 0.8 Abs Eosin <0.46 k/uL 0.05 Baso% % 0.3 Abs Baso <0.11 k/uL <0.03 Immature Gran % % 0.2 IMMATURE GRANS (ABS) <0.10 k/uL <0.03 NRBC /100 WBC 0.0 Absolute nRBC <0.01 k/uL <0.01 DTYPE Auto Protein, Total 6.3 - 8.0 g/dL 7.2 Albumin 3.9 - 4.9 g/dL 4.2 Calcium 8.5 - 10.2 mg/dL 9.7 Bilirubin, Total 0.2 - 1.3 mg/dL 0.5 Alkaline Phosphatase 38 - 113 U/L 80 AST 14 - 40 U/L 18 ALT 10 - 54 U/L 19 Glucose 74 - 99 mg/dL 211 (H) BUN 9 - 24 mg/dL 23 Creatinine 0.73 - 1.22 mg/dL 1.17 Sodium 136 - 144 mmol/L 139 Potassium 3.7 - 5.1 mmol/L 4.3 Chloride 97 - 105 mmol/L 101 CO2 22 - 30 mmol/L 27 Anion Gap 9 - 18 mmol/L 11 eGFR >=60 mL/min/1.73m 63 Hemoglobin A1C 4.3 - 5.6 % 5.8 (H) Estimated Average Glucose mg/dL 120 Lipase 16 - 61 U/L 34 VITALS: BP 136/74 Pulse 66 Resp 16 Wt 95.3 kg (210 lb) SpO2 95% BMI 29.29 kg/m Last 4 Encounter Wt Readings: Date: Wt: 04/29/2022 95.3 kg (210 lb) 01/30/2022 93.4 kg (206 lb) 01/15/2022 94.8 kg (209 lb) 11/08/2021 96.6 kg (213 lb) PHYSICAL EXAMINATION: General appearance: Well appearing, alert, in no acute distress, well-hydrated, well nourished. Skin: Skin color, texture, turgor normal, no suspicious rashes or lesions Head: Normocephalic, no masses, lesions, tenderness or abnormalities Lungs: moving air well. Has rhonchi on the right Heart: RRR without murmur, gallop, or rubs. No ectopy Abdomen: Normal abdominal exam, Abdomen soft, non-tender. Bowel sounds normal. No masses, organomegaly Extremities: No deformities, edema, skin discoloration, clubbing or cyanosis. Good capillary refill. ASSESSMENT/PLAN: 1. Essential hypertension, benign - ICD9: 401.1, ICD10: I10 (primary diagnosis) - good control - Continue current medication(s) - Goal of BP <130/80 2. Hyperlipidemia LDL goal <100 - ICD9: 272.4, ICD10: E78.5 - good control - Continue current medication. - LIPID PANEL BASIC - COMP METABOLIC PANEL 3. Atrial fibrillation, unspecified type (HCC) - ICD9: 427.31, ICD10: I48.91 - stable. 4. Moderate tricuspid regurgitation - ICD9: 397.0, ICD10: I07.1 - per cardiology 5. Stage 3a chronic kidney disease (HCC) - ICD9: 585.3, ICD10: N18.31 - last labs were much better. 6. Hyperglycemia - ICD9: 790.29, ICD10: R73.9 - HGB A1C 7. Hx of skin cancer, basal cell - ICD9: V10.83, ICD10: Z85.828 - sees derm every six month 8. Generalized anxiety disorder - ICD9: 300.02, ICD10: F41.1 - decrease dose. - SERTRALINE 50 MG TABLET 9. Abnormal breath sounds - ICD9: 786.7, ICD10: R06.89 - check chest xray today. Red flags for re-assessment reviewed with patient in detail. Tien Serrano MD documented in this encounterMercy Health St. [facility]10-31-2022 Miscellaneous Notes* Telephone Encounter - Namita Gee [facility] - 04/07/2022 3:32 PM EDT [facility] Amb[facility] Anticoagulation Clinic Anticoagulation Episode Summary Anticoagulation Care Providers Provider Role Specialty Phone number Tien Serrano MD Referring Family Medicine [phone] Wilmre Morley is a 81 year old year old male patient being evaluated today for a Telemanagement visit. Patient is currently on the following anticoagulant(s) Warfarin. Labs PT INR (no units) Date Value 09/16/2021 2.9 09/02/2021 3.2 06/06/2021 2.5 biotel INR Home CoaguChek (no units) Date Value 04/07/2022 3.6 03/21/2022 3.0 03/05/2022 3.1 Estimated Creatinine Clearance: 58.8 mL/min (based on SCr of 1.17 mg/dL). ALLERGIES No Known Allergies 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: Anticoagulation Episode Summary Current INR goal: 2.0-3.0 Assessment: INR result of 3.6 is SUPRAtherapeutic due to: Decreased vitamin k intake Plan: Current Warfarin Dosing As of 04/07/2022 Full warfarin instructions: 04/07: 2.5 mg; Otherwise 7.5 mg every Mon, Fri; 5 mg all other days Called and spoke to patient/caregiver Advised patient to decrease dose for 1 day only then resume weekly regimen Next INR check due on 04/28/2022 Patient verbalizes understanding of the plan. Namita Gee RPh Clinical Pharmacist, Pharmacy Anticoagulation Clinic Pharmacy Anticoagulation Clinic Pager: [phone]. documented in this encounterMercy Health St. [facility]10-28-2022 Miscellaneous Notes* Telephone Encounter - Bea Adan RPh - 04/04/2022 5:25 PM EDT Patient due to test INR today. Will continue to monitor for results. Bea Adan RPh documented in this encounterMercy Health St. [facility]10-14-2022 Miscellaneous Notes* Telephone Encounter - Bea Adan RPh - 03/21/2022 3:13 PM EDT [facility] Amb[facility] Anticoagulation Clinic Anticoagulation Episode Summary Anticoagulation Care Providers Provider Role Specialty Phone number Tien Serrano MD Referring Family Medicine [phone] Wilmer Morley is a 81 year old year old male patient being evaluated today for a Telemanagement visit. Patient is currently on the following anticoagulant(s) Warfarin. Labs PT INR (no units) Date Value 09/16/2021 2.9 09/02/2021 3.2 06/06/2021 2.5 biotel INR Home CoaguChek (no units) Date Value 03/21/2022 3.0 03/05/2022 3.1 02/19/2022 2.2 Hemoglobin (g/dL) Date Value 01/30/2022 13.9 03/14/2021 14.8 Hematocrit (%) Date Value 01/30/2022 43.0 03/14/2021 44.9 Platelet Count (k/uL) Date Value 01/30/2022 170 03/14/2021 191 Creatinine (mg/dL) Date Value 01/30/2022 1.17 10/15/2021 1.18 10/10/2021 1.43 03/14/2021 1.34 09/06/2020 1.27 08/06/2020 1.43 Bilirubin, Total (mg/dL) Date Value 01/30/2022 0.5 03/14/2021 1.1 ALT (U/L) Date Value 01/30/2022 19 03/14/2021 32 AST (U/L) Date Value 01/30/2022 18 03/14/2021 30 Estimated Creatinine Clearance: 58.8 mL/min (based on SCr of 1.17 mg/dL). ALLERGIES No Known Allergies 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: History of dvt (deep vein thrombosis) long term (current) use of anticoagulants Atrial fibrillation, unspecified type (hcc) Anticoagulation Episode Summary Current INR goal: 2.0-3.0 Assessment: INR result of 3.0 is therapeutic Plan: Current Warfarin Dosing As of 03/21/2022 Full warfarin instructions: 7.5 mg every Mon, Fri; 5 mg all other days Sent [employer] message Advised patient to continue current weekly dose as noted above Next home INR check scheduled on 04/04/2022 Bea Adan RPh Clinical Pharmacist, Pharmacy Anticoagulation Clinic Pharmacy Anticoagulation Clinic Pager: [phone]. documented in this encounterMercy Health [facility]. [facility]10-12-2022 Miscellaneous Notes* Telephone Encounter - Rere Mejia RPh - 03/19/2022 2:01 PM EDT Patient due to test INR today. Will continue to monitor for results. Rere Mejia RPh documented in this encounterMercy Health St. [facility]09-15-2022 Miscellaneous Notes* Telephone Encounter - Arpita Hurt Ma - 02/20/2022 3:37 PM EDT Last office visit: 01/30/22 F/u scheduled: 04/29/22 Arpita Hurt Ma documented in this encounterMercy Health St. [facility]09-13-2022 Miscellaneous Notes* Telephone Encounter - Marcelina Flores RPh - 02/18/2022 4:20 PM EDT Patient due to test INR today. Will continue to monitor for results. Marcelina Flores RPh documented in this encounterMercy Health St. [facility]08-29-2022 Miscellaneous Notes* Telephone Encounter - Stephany Stein Ma - 02/03/2022 11:30 AM EDT Added A1C to labs. Spoke with pt and will stop by lab to give urine sample. He wanted to update provider that he has little to no more abdominal pain. It has greatly improved. Stephany Stein Ma * Telephone Encounter - Paulino Ruiz PA-C - 02/03/2022 6:46 AM EDT There should be a message regarding urine casts and protein somewhere. Let him know we need to recheck urine micro and urine alb:creat ratio. Sugar is high: please have lab add [id number] from [facility]. Shivam Chávez PA-C documented in this encounterMercy Health St. [facility]08-29-2022 Miscellaneous Notes* Telephone Encounter - Love Awad RPh - 02/03/2022 11:01 AM EDT Patient was due to test INR today. Will continue to monitor for results. Love Awad PharmD documented in this encounterMercy Health St. [facility]08-29-2022 Miscellaneous Notes* Telephone Encounter - Paulino Ruiz PA-C - 02/03/2022 6:41 AM EDT Urine showed small protein and casts which are abnormal. Recheck urine micro and albumin:creat. Please have him cone in for recheck in lab. Telephone on 02/03/22 URINALYSIS, WITH MICROSCOPIC ALBUMIN/CREAT RATIO RND UR ThanksShivam PA-C documented in this encounterMercy Health St. [facility]08-25-2022 History of Present illness Narrative* Paulino Ruiz PA-C - 01/30/2022 10:40 AM EDT 81 year old male with c/o hx Valvular heart disease, AF on tambocor +coumadin, HLD, HTN, CRF3a, hyperglycemia, C/O: Abdominal pain left sided. Thursday evening, left lower abdomen, worried it's way up left side, varies Pain is achy. At current time: none, up to 3-4/10 at times. Last s a few minutes to Heat and tylenol about times help. Appetite good. No changes in diet. No nausea, vomiting, acid reflux. Bowels loose, once a day- in normal pattern currently. Takes Immodium AD 1/2 pill a day. No abdominal EGD 08/16/2020 Dr. Adin Dooley [place]: Esophagitis without bleeding, 1 cm hiatal hernia, single gastric polyp, duodenitis 03/09/2018 colonoscopy for diarrhea: Internal nonbleeding hemorrhoids, diverticulosis without diverticulitis, 6 mm polyp snared from the rectum: Surveillance recommended 5 years Colonoscopy 3 years ago No urinary sx. 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 Benign neoplasm of colon CKD (chronic kidney disease), stage III (HCC) 04/08/2018 Diverticulosis of colon (without mention of hemorrhage) Essential hypertension, benign 02/27/2010 Facial basal cell cancer 2009 Internal hemorrhoids without mention of complication Other acute embolism veins Other and unspecified hyperlipidemia hypertriglyeridemia Personal history of colonic polyps PAST SURGICAL HISTORY Procedure Laterality Date CATARACT EXTRACTION HX Left CATARACT SURGERY, COMPLEX 2009 R eye COLONOSCOPY FLX DX W/COLLJ SPEC WHEN PFRMD 08/05/2000 Colonoscopy COLONOSCOPY FLX DX W/COLLJ SPEC WHEN PFRMD 11/02/2002 Colonoscopy COLONOSCOPY FLX DX W/COLLJ SPEC WHEN PFRMD 01/29/2009 COLONOSCOPY FLX DX W/COLLJ SPEC WHEN PFRMD 02/24/2014 Colonoscopy COLONOSCOPY FLX DX W/COLLJ SPEC WHEN PFRMD 03/09/2018 MARCIAL Garcia-repeat 10 years ESOPHAGOGASTRODUODENOSCOPY TRANSORAL DIAGNOSTIC N/A 08/16/2020 MARCIAL Garcia PAST SURGICAL HISTORY OF 2010 basal cell to right above upper lip Social History Tobacco Use Smoking status: Former Years: 1.00 Types: Cigarettes Quit date: 02/24/2011 Years since quittin.9 Smokeless tobacco: Never Substance Use Topics Alcohol use: Yes Alcohol/week: 5.0 standard drinks Types: 1 Glasses of Wine (5oz), 1 Mixed Drinks per week Comment: one drink a day Drug use: No ACTIVE PROBLEM LIST Hyperlipidemia Ldl Goal <100 Generalized Anxiety Disorder ATRIAL FIBRILLATION Internal Hemorrhoids Without Mention of Complication Essential Hypertension, Benign Moderate Mitral Regurgitation Moderate Tricuspid Regurgitation Custodial (Current) Use of Anticoagulants Venous (Peripheral) Insufficiency History of Dvt (Deep Vein Thrombosis) Asymptomatic Lv Dysfunction Custodial Current Use of Antiarrhythmic Medical Therapy Stage 3a Chronic Kidney Disease (Hcc) Hyperglycemia Hypertensive Kidney Disease With Stage 3a Chronic Kidney Disease (Hcc) Hx of Skin Cancer, Basal Cell Current Outpatient Medications Medication Sig Dispense Refill flecainide (TAMBOCOR) 100 mg tablet Take 1 tablet by mouth twice daily. 180 tablet 3 furosemide (LASIX) 40 mg tablet Take 1 tablet by mouth once daily. (Patient not taking: Reported on01/15/2022) 3 tablet 0 warfarin (COUMADIN) 5 mg tablet 7.5 mg every Mon, Fri; 5 mg all other days 90 tablet 1 sertraline (ZOLOFT) 50 mg tablet Take 1.5 tablets by mouth once daily. (Patient taking differently:Take 50 mg by mouth once daily.) 135 tablet 3 lisinopril (ZESTRIL, PRINIVIL) 10 mg tablet Take 1 tablet by mouth once daily. 90 tablet 3 tamsulosin (FLOMAX) 0.4 mg Take 1 capsule by mouth daily at bedtime. 90 capsule 3 atorvastatin (LIPITOR) 20 mg tablet Take 1 tablet by mouth once daily. 90 tablet 3 LORazepam (ATIVAN) 0.5 mg Take 1 tablet by mouth twice daily as needed (anxiety) for up to 90 days.180 tablet 0 loperamide (ANTI-DIARRHEAL) 1 mg/5 mL solution Take 5 mL by mouth four times daily as needed. Take 1/2 tablet daily No current facility-administered medications for this visit. BP CONTROLLED (<130/80) Never done ADVANCE DIRECTIVE DISCUSSION Never done COVID-19 VACCINE(4 - Booster for Moderna series) due on 08/07/2021 EXAM: BP 144/60 Pulse 72 Temp 36.9 C (98.4 F) Ht 180.3 cm (5' 11) Wt 93.4 kg (206 lb) SpO2 96% BMI 28.73 kg/m Pleasant older man who appears younger than state in no acute distress. Alert and oriented all spheres. Normal affect and cognition. Speech normal. No deficits to learning or comprehension. Skin warm, dry, pink to lips and nailbeds. Normal turgor. Respirations regular and unlabored. HEENT: NCAT. No scleral icterus or conjunctival injection. TM's clear. Nose and oropharynx free from injection or lesion. Oral membranes moist and pink. No cervical lymph nodes. Thyroid non-tender, no masses, or enlargement. Carotids pulses 2+/4+ without bruits. No JVD with HOB at 30 degrees. Chest is normal shape. Lungs are clear to all draper with good air exchange through out. HRRR without murmur or gallop. No lifts, heaves, or rubs. Abdomen: active bowel sounds throughout, soft, nontender, no masses or organomegaly. No guarding. Negative heel strike. No CVAT. Extrem: no clubbing or cyanosis.none Edema: none. Extremities are warm and pink with prompt capillary refill. ASSESSMENT/PLAN: 1. Abdominal pain, left lateral - ICD9: 789.09, ICD10: R10.9 No indications of acute surgical abdomen. Will proceed with lab work. Exam is currently unremarkable- will hold on imaging. - CBC + DIFF - COMP METABOLIC PANEL - LIPASE BLD - UA DIP, URINE (POC) - URINALYSIS, WITH MICROSCOPIC Advised if severe pain, fever. Worsening to go to ED Will mychart results. Paulino Ruiz PA-C documented in this encounterMercy Health St. [facility]08-20-2022 Procedure note* Cortney Miranda MD - 01/25/2022 3:20 PM EDTProcedure(s): REM LESION NEC,HND,SCAL 0.6-1.0CM Pre-Procedure Diagnose(s): Skin lesion; Dysesthesia Post-Procedure Diagnose(s): Skin lesion; Dysesthesia Description of procedure: After informed consent was obtained, patient was brought to the procedure room. Appropriate time out protocol was followed. Patient was placed in the supine position. The site of the lesion was then cleansed with a sterile surgical skin preparation. Appropriate sterile surgical drapes were placed. The skin and subcutaneous tissues at the site were then infiltrated with local anesthetic. A skin incision was made at the site in an elliptical fashion to entirely incorporate the lesion with a 15 blade scalpel. The incision was carried down to the subcutaneous tissues. Dissection was done to separate the skin lesion from the surrounding subcutaneous tissues. The lesion was excised sharply down to the subcutaneous tissues. The lesion was 0.9 cm in size. The tissue was then removed and placed in formalin to be forwarded to pathology for analysis. Hemostasis was controlled by pressure. The skin edges were then reapproximated with interrupted 3-0 chromic in a simple fashion. Dermibond was applied to the incision site. Patient tolerated procedure well. Complications:none EBL: minimal documented in this encounterMercy Health St. [facility]08-19-2022 Miscellaneous Notes* Telephone Encounter - Cortney Miranda MD - 01/24/2022 1:48 PM EDT Patient underwent skin biopsy of scalp posterior to left ear on 01/22/2022. Pathology: FINAL DIAGNOSIS A. Skin, excision, posterior scalp: - Seborrheic keratosis, irritated and inflamed. Patient states that area is doing fine. Patient acknowledges above. documented in this encounterMercy Health St. [facility]08-17-2022 History of Present illness Narrative* Cortney Miranda MD - 01/22/2022 1:57 PM EDT Patient presents with skin lesion of the scalp posterior to the left ear. It is causing irritation and he is concerned about skin cancer. He tolerated procedure well. I will call patient with results. * Paulina Colbert RN - 01/22/2022 1:37 PM EDT UNIVERSAL PROTOCOL / SAFETY CHECKLIST Procedure to be Performed: Excision of skin excision posterior to left ear Sign In: A Moment of CARE was completed. Personnel directly involved with the procedure wore the appropriate PPE (Personal Protective Equipment). Patient/Surrogate Stated/Verified: PATIENT VERIFIED(optional for EMERGENT procedures): Patient name, Date of , Relevant allergies, and The intended procedure Time Out Communication: Intended patient and procedure match the source documents. Consent documented and matches the intended procedure. Sign Out: SIGN OUT (optional for EMERGENT procedures): All specimen containers correctly labeled. Paulina Colbert RN documented in this encounterMercy Health St. [facility]08-17-2022 Instructions* Patient Instructions* Paulina Colbert RN - 01/22/2022 1:44 PM EDT The following instructions are important for you related to your office visit today with the [facility]. Instructions After SKIN EXCISION-SUTURES If there is minor bleeding from this skin edge, you should hold pressure on the incision until the bleeding stops. If there is continued bleeding, you should contact our office immediately. You do not need to leave a dressing on the wound after two days. If the wound shows signs of redness, inflammation, or purulent drainage, you should contact our office immediately. You should keep the wound dry for the first two days. After that time, you may wash the wound with gentle soap and water. The wound should not be immersed in a pool, bathtub, or even hot tub. You can use Ibuprofen and Tylenol for pain. Dr. Miranda will call you in 7-10 days with results. If you note any additional difficulties, questions, or concerns, you should contact our office immediately @ [phone] and ask to be transferred to the General Surgery department. documented in this encounterMercy Health St. [facility]08-10-2022 History of Present illness Narrative* Cortney Miranda MD - 01/15/2022 6:55 PM EDT HISTORY AND PHYSICAL Wilmer Morley 1940 REFERRING PHYSICIAN: MD Brando CHIEF COMPLAINT: Consult (Check Lesion above Left Ear) HPI: The patient is a 81 year old male with a complaint of skin lesion of scalp behind left ear. He does not know how long it has been present. He has had BCCa in past, using Moh's surgery followed by a web designer developer in [place]. PAST MEDICAL HISTORY Diagnosis Date Anxiety Atrial fibrillation (HCC) 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 2022 Benign neoplasm of colon CKD (chronic kidney disease), stage III (HCC) 04/08/2018 Diverticulosis of colon (without mention of hemorrhage) Essential hypertension, benign 02/27/2010 Facial basal cell cancer 2009 Internal hemorrhoids without mention of complication Other acute embolism veins Other and unspecified hyperlipidemia hypertriglyeridemia Personal history of colonic polyps PAST SURGICAL HISTORY Procedure Laterality Date CATARACT EXTRACTION HX Left CATARACT SURGERY, COMPLEX 2009 R eye COLONOSCOPY FLX DX W/COLLJ SPEC WHEN PFRMD 08/05/2000 Colonoscopy COLONOSCOPY FLX DX W/COLLJ SPEC WHEN PFRMD 11/02/2002 Colonoscopy COLONOSCOPY FLX DX W/COLLJ SPEC WHEN PFRMD 01/29/2009 COLONOSCOPY FLX DX W/COLLJ SPEC WHEN PFRMD 02/24/2014 Colonoscopy COLONOSCOPY FLX DX W/COLLJ SPEC WHEN PFRMD [facility]/09/[facility] ESOPHAGOGASTRODUODENOSCOPY TRANSORAL DIAGNOSTIC N/A 08/16/2020 [facility] PAST [facility] H[facility] OF 2010 basal cell to right above upper lip Current Outpatient Medications Medication Sig warfarin (COUMADIN) 5 mg tablet 7.5 mg every Mon, Fri; 5 mg all other days sertraline (ZOLOFT) 50 mg tablet Take 1.5 tablets by mouth once daily. (Patient taking differently:Take 50 mg by mouth once daily.) flecainide (TAMBOCOR) 100 mg tablet Take 1 tablet by mouth twice daily. lisinopril (ZESTRIL, PRINIVIL) 10 mg tablet Take 1 tablet by mouth once daily. tamsulosin (FLOMAX) 0.4 mg Take 1 capsule by mouth daily at bedtime. atorvastatin (LIPITOR) 20 mg tablet Take 1 tablet by mouth once daily. loperamide (ANTI-DIARRHEAL) 1 mg/5 mL solution Take 5 mL by mouth four times daily as needed. Take 1/2 tablet daily furosemide (LASIX) 40 mg tablet Take 1 tablet by mouth once daily. (Patient not taking: Reported on01/15/2022) LORazepam (ATIVAN) 0.5 mg Take 1 tablet by mouth twice daily as needed (anxiety) for up to 90 days. ALLERGIES: Patient has no known allergies. PERSONAL HISTORY: Social History Tobacco Use Smoking status: Former Years: 1.00 Types: Cigarettes Quit date: 02/24/2011 Years since quittin.8 Smokeless tobacco: Never Substance Use Topics Alcohol use: Yes Alcohol/week: 5.0 standard drinks Types: 1 Glasses of Wine (5oz), 1 Mixed Drinks per week Comment: one drink a day Drug use: No FAMILY HISTORY Problem Relation Age of Onset Heart Father CHF Heart Mother CHF Heart Brother [place] - rheumatic fever Cancer Brother gastric Asthma Sister The review of systems data was entered by the nurse and reviewed by ut Nursing Notes: Ana Cabrera 01/15/2022 3:03 PM Signed REVIEW OF SYSTEMS: General: The patient denies fatigue, denies weight loss, denies weight gain, denies feeling hot, and denies feelings of cold. Eyes: The patient denies glaucoma, NOTES eye injury/surgery, wears glasses or contacts. Ear/Nose/Throat: The patient denies allergies, denies hayfever, denies ear infections, and denies bloody noses. Cardiovascular: The patient denies chest pain, denies heart disease, NOTES high blood pressure,denies cardiac stent, denies prior heart attack, denies irregular heart beat, denies high cholesterol, denies poor circulation, denies heart failure, other cardiac issues, denies claudication, denies coldfeet, denies peripheral arterial stent. Respiratory: The patient denies tuberculosis, denies pneumonia, denies frequent cough, denies pulmonary embolism, NOTES shortness of breath, and denies coughing up blood. Gastrointestinal: The patient denies difficulty swallowing, denies acid reflux, denies ulcers, denies vomiting, denies jaundice/hepatitis, denies gallbladder problems, denies black or tarry stools, denies hemorrhoids, denies bleeding from rectum, denies diverticulitis, denies constipation, denies diarrhea, denies loss of stool control, and denies hernias. Kidney/Bladder: The patient denies kidney stones, NOTES Kidney Failure. denies urine infections, and denies bloody urine. Skin: The patient denies a history of skin cancer, denies bleeding/changing moles, and denies a history of skin rash. Neurologic: The patient denies a history of epilepsy/convulsions, denies headaches, denies head/spinal injuries, and denies stroke/TIA. Psychiatric: The patient denies psychiatric medications, denies depression, and denies voices, denies substance abuse. Endocrine: The patient denies thyroid disorders, denies diabetes, and denies hormonal problems. Hematologic: The patient NOTES a history of bruising, NOTES bleeding, and denies anemia, denies blood clots. Infections: The patient NOTES a history of measles and mumps, denies rheumatic fever, and denies sexually transmitted diseases. Musculoskeletal: The patient denies back pain/injury, denies back problems, denies sciatica, deniesknee/foot trouble, denies arthritis, or denies gout. When was patient's last Mammogram screening? N/A Last Colonoscopy: 04/15/2018 Ana Cabrera PHYSICAL EXAMINATION: General: The patient is 81 year old male, well nourished, well hydrated in no acute distress. The patient is oriented to time, place, and person. VITALS: Blood pressure 149/70, pulse (!) 53, temperature 37.4 C (99.3 F), height 180.3 cm (5' 11),weight 94.8 kg (209 lb), SpO2 95 %. Body mass index is 29.15 kg/m . Head: Normal cephalic, atraumatic, 1 cm keratotic white lesion of scalp in area posterior to left ear Eyes: pupils are equally round, sclera are clear/anicteric Neck is supple with no tracheal deviation Respiratory: Normal respiratory excursion and pattern. Abdominal exam: benign Extremities: no clubbing, cyanosis or edema. Neuro: non focal Psych: normal mood Assessment IMPRESSION: skin lesion behind left ear PLAN: I have discussed the above with the patient. I have offered excision of this skin lesion. I have explained the procedure to the patient. To be done in the office using local anesthesia I have counseled the patient as to the risks of the procedure, including but not limited to: infection, bleeding, injury to any blood vessels/nerves, scar tissue, wound infections, complications of anesthesia, etc. - the patient understands. The patient wishes to proceed. He is instructed to hold coumadin three days prior to procedure. I have answered all questions to the patient s satisfaction and the patient has no further questions. I have confirmed and edited as necessary, the PFSH and ROS obtained by others. . Diagnoses: (L98.9) Skin lesion (primary encounter diagnosis) Return to Clinic: The patient will be scheduled for office procedure as described above. Medical Decision Making: Risk: Low: Low risk from testing/treatment Medical Decision Making Level: 2 - Straightforward Cortney Miranda MD documented in this encounterMercy Health St. [facility]08-10-2022 Nurse Note* Ana Cabrera - 01/15/2022 2:59 PM EDT REVIEW OF SYSTEMS: General: The patient denies fatigue, denies weight loss, denies weight gain, denies feeling hot, and denies feelings of cold. Eyes: The patient denies glaucoma, NOTES eye injury/surgery, wears glasses or contacts. Ear/Nose/Throat: The patient denies allergies, denies hayfever, denies ear infections, and denies bloody noses. Cardiovascular: The patient denies chest pain, denies heart disease, NOTES high blood pressure,denies cardiac stent, denies prior heart attack, denies irregular heart beat, denies high cholesterol, denies poor circulation, denies heart failure, other cardiac issues, denies claudication, denies coldfeet, denies peripheral arterial stent. Respiratory: The patient denies tuberculosis, denies pneumonia, denies frequent cough, denies pulmonary embolism, NOTES shortness of breath, and denies coughing up blood. Gastrointestinal: The patient denies difficulty swallowing, denies acid reflux, denies ulcers, denies vomiting, denies jaundice/hepatitis, denies gallbladder problems, denies black or tarry stools, denies hemorrhoids, denies bleeding from rectum, denies diverticulitis, denies constipation, denies diarrhea, denies loss of stool control, and denies hernias. Kidney/Bladder: The patient denies kidney stones, NOTES Kidney Failure. denies urine infections, and denies bloody urine. Skin: The patient denies a history of skin cancer, denies bleeding/changing moles, and denies a history of skin rash. Neurologic: The patient denies a history of epilepsy/convulsions, denies headaches, denies head/spinal injuries, and denies stroke/TIA. Psychiatric: The patient denies psychiatric medications, denies depression, and denies voices, denies substance abuse. Endocrine: The patient denies thyroid disorders, denies diabetes, and denies hormonal problems. Hematologic: The patient NOTES a history of bruising, NOTES bleeding, and denies anemia, denies blood clots. Infections: The patient NOTES a history of measles and mumps, denies rheumatic fever, and denies sexually transmitted diseases. Musculoskeletal: The patient denies back pain/injury, denies back problems, denies sciatica, deniesknee/foot trouble, denies arthritis, or denies gout. When was patient's last Mammogram screening? N/A Last Colonoscopy: 04/15/2018 Ana Cabrera documented in this encounterMercy Health St. [facility]08-03-2022 Miscellaneous Notes* Telephone Encounter - Ghazal Bailey RP - 01/08/2022 10:24 AM EDT MyChart message sent for INR in therapeutic range. documented in this encounterMercy Health St. [facility]07-20-2022 Miscellaneous Notes* Telephone Encounter - Ghazal Bailey [facility] - 2021 12:57 PM EDT MyChart message sent for therapeutic INR. documented in this encounterMercy Health St. [facility]07-20-2022 Miscellaneous Notes* Telephone Encounter - Tien Serrano MD - 2021 9:36 AM EDT bp came down nicely. Will follow. No changes. * Telephone Encounter - Keyla Rothman LPN - 2021 9:22 AM EDT Manual Readin/82 Pulse: 82 BP Og average: 137/73 P: 74 Repeat BP Check: 133/85 P69 #1 151/74 P79 #2 148/73 P75 #3 132/71 P73 #4 132/76 P71 #5 124/60 P74 #6 Reason for blood pressure check - Last BP elevated Patient is: Taking medication as prescribed Yes Took medication today Yes If no, date medication last taken N/A Experiencing side effects No BP was elevated at last appt 11/08/21. No BP medication changes were made at that time. Taking all medications as prescribed. Denies any chest pain, shortness of breath, dizziness, or headaches. No caffeine use. Past personal history of tobacco use; no current exposure. Alert and oriented. Pt has been identified by name and birthdate: Yes Allergies reviewed: Yes Latex allergy: no. Medication - prescribed and OTC reviewed and updated: Yes Do you need any prescription refills prior to your next visit: No Health Maintenance: Reviewed and not up to date and provider notified Patient advised that he would be contacted after review by PCP. Keyla Rothman LPN documented in this encounterMercy Health St. [facility]06-21-2022 Miscellaneous Notes* Telephone Encounter - Arabella Lopez [facility] - 11/26/2021 4:31 PM [address] [facility] Amb[facility] Anticoagulation Clinic Anticoagulation Episode Summary Anticoagulation Care Providers Provider Role Specialty Phone number Tien Serrano MD Referring [facility] [phone] Wimler Morley is a 80 year old year old male patient being evaluated today for a Telemanagement visit. Patient is currently on the following anticoagulant(s) Warfarin. Labs PT INR (no units) Date Value 09/16/2021 2.9 09/02/2021 3.2 06/06/2021 2.5 biotel INR Home CoaguChek (no units) Date Value 11/26/2021 3.1 11/11/2021 2.0 10/28/2021 2.8 Hemoglobin (g/dL) Date Value 10/10/2021 13.0 03/14/2021 14.8 Hematocrit (%) Date Value 10/10/2021 40.4 03/14/2021 44.9 Platelet Count (k/uL) Date Value 10/10/2021 173 03/14/2021 191 Creatinine (mg/dL) Date Value 10/15/2021 1.18 10/10/2021 1.43 03/14/2021 1.34 09/06/2020 1.27 08/06/2020 1.43 Bilirubin, Total (mg/dL) Date Value 03/14/2021 1.1 ALT (U/L) Date Value 03/14/2021 32 AST (U/L) Date Value 03/14/2021 30 CrCl cannot be calculated (Unknown ideal weight.). ALLERGIES No Known Allergies 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: Anticoagulation Episode Summary Current INR goal: 2.0-3.0 Assessment: INR result of 3.1 is SUPRAtherapeutic due to: No obvious cause Plan: Called and spoke to patient/caregiver Advised patient to continue current weekly dose and eat a serving of vit k today. Next home INR check scheduled on 12/10/2021 Patient verbalizes understanding of the plan. Arabella Lopez RPh Clinical Pharmacist, Pharmacy Anticoagulation Clinic Pharmacy Anticoagulation Clinic Pager: [phone] . documented in this encounterMercy Health St. [facility]06-03-2022 Nurse Note* Stephany Stein Ma - 11/08/2021 12:01 PM EDT BP AVERAGE 1. 172/79 56 2. 154/73 54 3. 169/73 53 4. 164/73 53 5. 162/74 58 6. 164/74 55 Average 163/73 55 * Velma Gonzalez LPN - 11/08/2021 11:01 AM EDT Follow up for shortness of breath feeling slight improvement. Had chest x-ray and lab work as ordered. Went to see cardiology for follow up. Was suggested that he increase his exercise. Going to [employer] about an hour a day 4 times a week. Was told that if that didn't seem to help him to contactcardio back and could order echo and stress test. documented in this encounterMercy Health St. [facility]06-03-2022 History of Present illness Narrative* Tien Serrano MD - 11/08/2021 11:28 AM EDT Patient presents with: Follow Up: shortness of breath HPI: Patient presents today for office visit for follow up. Nursing Notes: Velma Gonzalez EUSEBIA 11/08/2021 11:08 AM Signed Follow up for shortness of breath feeling slight improvement. Had chest x-ray and lab work as ordered. Went to see cardiology for follow up. Was suggested that he increase his exercise. Going to [employer] about an hour a day 4 times a week. Was told that if that didn't seem to help him to contactcardio back and could order echo and stress test. He is exercising and does feel as if he is improving. He is up to a mile and a half on a treadmill. No cough. No wheeze. No chest pain. Has lost weight. Dropped 4 lbs after three days of lasix. Has continued to lose. No edema. Component Latest Ref Rng & Units 10/10/2021 10/14/2021 10/15/2021 WBC 3.70 - 11.00 k/uL 6.34 RBC 4.20 - 6.00 m/uL 4.05 (L) Hemoglobin 13.0 - 17.0 g/dL 13.0 Hematocrit 39.0 - 51.0 % 40.4 MCV 80.0 - 100.0 fL 99.8 MCH 26.0 - 34.0 pg 32.1 MCHC 30.5 - 36.0 g/dL 32.2 RDW-CV 11.5 - 15.0 % 12.9 Platelet Count 150 - 400 k/uL 173 MPV 9.0 - 12.7 fL 10.2 Neut% % 66.7 Abs Neut (ANC) 1.45 - 7.50 k/uL 4.23 Lymph% % 20.5 Abs Lymph 1.00 - 4.00 k/uL 1.30 [place]% % 11.5 Abs [place] <0.87 k/uL 0.73 Eosin% % 0.6 Abs Eosin <0.46 k/uL 0.04 Baso% % 0.5 Abs Baso <0.11 k/uL 0.03 Immature Gran % % 0.2 IMMATURE GRANS (ABS) <0.10 k/uL <0.03 NRBC /100 WBC 0.0 Absolute nRBC <0.01 k/uL <0.01 DTYPE Auto Glucose 74 - 99 mg/dL 130 (H) 120 (H) BUN 9 - 24 mg/dL 31 (H) 30 (H) Creatinine 0.73 - 1.22 mg/dL 1.43 (H) 1.18 Sodium 136 - 144 mmol/L 140 141 Potassium 3.7 - 5.1 mmol/L 4.1 4.2 Chloride 97 - 105 mmol/L 104 105 CO2 22 - 30 mmol/L 28 26 Anion Gap 9 - 18 mmol/L 8 (L) 10 Calcium 8.5 - 10.2 mg/dL 9.2 8.8 eGFR >=60 mL/min/1.73m 50 (L) 63 Hemoglobin A1C 4.3 - 5.6 % 5.8 (H) Estimated Average Glucose mg/dL 120 NT Pro BNP <450 pg/mL 1,805 (H) INR Home CoaguChek 2.0 - 3.0 2.3 Chest xray was negative. See past ov: Velma Gonzalez LPN 10/10/2021 2:11 PM Signed Shortness of breath. Has noticed over the past 2-3 weeks. With exertion only. Mowing the grass willstart in 2-3 minutes with a couple flights of stairs. Denies any chest pain, cough, swelling, or dizziness. Happened one other time years ago and had chest x-ray that showed fluid. Cardio gave lasix and this solved issued. HTN: Patient is compliant with meds Holding lisinopril most of the time Monitors bp at home: Yes. Denies side effects: Yes. Chest pain: No. Dyspnea: Yes. Edema: No. Palpitations: No. Known A fib Syncope: No. Headache: No. Dizziness: No. Remains on coumadin. inr has been good. No bleeding issues. No cough or congestion. Sees Dr. Head in a few weeks. Does not feel ill. Shortness of breath is only with exertion. His weight is up today but does not recall any recent weight gain. Urine is stable. No recent ativan usage. MEDICATIONS: Current Outpatient Medications Medication Sig warfarin (COUMADIN) 5 mg tablet 7.5 mg every Mon, Fri; 5 mg all other days sertraline (ZOLOFT) 50 mg tablet Take 1.5 tablets by mouth once daily. (Patient taking differently:Take 50 mg by mouth once daily. ) flecainide (TAMBOCOR) 100 mg tablet Take 1 tablet by mouth twice daily. lisinopril (ZESTRIL, PRINIVIL) 10 mg tablet Take 1 tablet by mouth once daily. tamsulosin (FLOMAX) 0.4 mg Take 1 capsule by mouth daily at bedtime. atorvastatin (LIPITOR) 20 mg tablet Take 1 tablet by mouth once daily. furosemide (LASIX) 40 mg tablet Take 1 tablet by mouth once daily. LORazepam (ATIVAN) 0.5 mg Take 1 tablet by mouth twice daily as needed (anxiety) for up to 90 days. loperamide (ANTI-DIARRHEAL) 1 mg/5 mL solution Take 5 mL by mouth four times daily as needed. Take 1/2 tablet daily No current facility-administered medications for this visit. ALLERGIES: ALLERGIES No Known Allergies PAST MEDICAL HISTORY Diagnosis Date Anxiety Atrial fibrillation (HCC) Benign neoplasm of colon CKD (chronic kidney disease), stage III (HCC) 04/08/2018 Diverticulosis of colon (without mention of hemorrhage) Essential hypertension, benign 02/27/2010 Facial basal cell cancer 2009 Internal hemorrhoids without mention of complication Other acute embolism veins Other and unspecified hyperlipidemia hypertriglyeridemia Personal history of colonic polyps PAST SURGICAL HISTORY Procedure Laterality Date CATARACT EXTRACTION HX Left CATARACT SURGERY, COMPLEX 2009 R eye COLONOSCOPY FLX DX W/COLLJ SPEC WHEN PFRMD 08/05/2000 Colonoscopy COLONOSCOPY FLX DX W/COLLJ SPEC WHEN PFRMD 11/02/2002 Colonoscopy COLONOSCOPY FLX DX W/COLLJ SPEC WHEN PFRMD 01/29/2009 COLONOSCOPY FLX DX W/COLLJ SPEC WHEN PFRMD 02/24/2014 Colonoscopy COLONOSCOPY FLX DX W/COLLJ SPEC WHEN PFRMD 03/09/2018 [facility]-repeat 10 years ESOPHAGOGASTRODUODENOSCOPY TRANSORAL DIAGNOSTIC N/A 08/16/2020 [facility] PAST SURGICAL HISTORY OF 2010 basal cell to right above upper lip FAMILY HISTORY Problem Relation Age of Onset Heart Father CHF Heart Mother CHF Heart Brother [place] - rheumatic fever Cancer Brother gastric Asthma Sister Social History Tobacco Use Smoking status: Former Smoker Years: 1.00 Types: Cigarettes Quit date: 02/24/2011 Years since quittin.7 Smokeless tobacco: Never Used Substance Use Topics Alcohol use: Yes Alcohol/week: 5.0 standard drinks Types: 1 Glasses of Wine (5oz), 1 Mixed Drinks per week Comment: one drink a day Drug use: No Reviewed current medications, allergies, past medical history, surgical history, family history andsocial history today. REVIEW OF SYSTEMS Cut back his zoloft slightly and feeling well. All other reviewed and negative other than HPI. VITALS: BP 164/82 Pulse 60 Wt 96.6 kg (213 lb) BMI 30.56 kg/m Last 4 Encounter Wt Readings: Date: Wt: 11/08/2021 96.6 kg (213 lb) 10/10/2021 98.9 kg (218 lb) 03/14/2021 94.8 kg (209 lb) 09/07/2020 90.3 kg (199 lb) PHYSICAL EXAMINATION: General appearance: Well appearing, alert, in no acute distress, well-hydrated, well nourished. Skin: Skin color, texture, turgor normal, no suspicious rashes or lesions Head: Normocephalic, no masses, lesions, tenderness or abnormalities Lungs: Lungs clear to auscultation. No wheezing, rhonchi, rales Heart: RRR without murmur, gallop, or rubs. No ectopy Abdomen: Normal abdominal exam, Abdomen soft, non-tender. Bowel sounds normal. No masses, organomegaly Extremities: No deformities, edema, skin discoloration, clubbing or cyanosis. Good capillary refill. ASSESSMENT/PLAN: 1. Hypertensive kidney disease with stage 3a chronic kidney disease (HCC) - ICD9: 403.90, 585.3, ICD10: I12.9, N18.31 (primary diagnosis) - suboptimal control - Follow up in 1 month for BP recheck. - Goal of BP <130/80 2. Moderate tricuspid regurgitation - ICD9: 397.0, ICD10: I07.1 - per cardiology 3. Atrial fibrillation, unspecified type (HCC) - ICD9: 427.31, ICD10: I48.91 - follow progress. 4. Essential hypertension, benign - ICD9: 401.1, ICD10: I10 - as above. 5. Stage 3a chronic kidney disease (HCC) - ICD9: 585.3, ICD10: N18.31 - stable. 6. SOB (shortness of breath) - ICD9: 786.05, ICD10: R06.02 - agree with cardiology. Red flags for re-assessment reviewed with patient in detail. Tien Serrano RTO in one month for bp check and rto in six months and prn. documented in this encounterMercy Health [facility]. [facility]06-03-2022 Evaluation note* Diagnosis Hypertensive kidney disease with stage 3a chronic kidney disease (HCC)- Primary Moderate tricuspid regurgitation Diseases of tricuspid valve Atrial fibrillation, unspecified type (HCC) Essential hypertension, benign Stage 3a chronic kidney disease (HCC) SOB (shortness of breath) Shortness of breath Generalized anxiety disorder Hx of skin cancer, basal cell Personal history of other malignant neoplasm of skin documented in this encounter [facility]06-01-2022 History of Past illness Narrative* Problem Noted Date Resolved Date Hypertensive kidney disease with stage 3a chronic kidney disease 11/06/2021 10/31/2022 Change in bowel movement 01/21/2018 021 Episodic lightheadedness 04/11/2015 018 Bilateral edema of lower extremity 04/11/2015 01/10/2016 Paroxysmal atrial fibrillation 03/19/201506/11/2014 Skin lesion 03/05/2010 12/20/2014 documented as of this encounter (statuses as of 11/06/2022) [facility]-2022 History of Past illness Narrative* Problem Noted Date Resolved Date Hypertensive kidney disease with stage 3a chronic kidney disease 11/06/2021 10/31/2022 Change in bowel movement 01/21/2018 021 Episodic lightheadedness 04/11/2015 018 Bilateral edema of lower extremity 04/11/2015 01/10/2016 Paroxysmal atrial fibrillation 03/19/201506/11/2014 Skin lesion 03/05/2010 12/20/2014 documented as of this encounter (statuses as of 11/21/2022) [facility]22 History of Past illness Narrative* Problem Noted Date Resolved Date Hypertensive kidney disease with stage 3a chronic kidney disease 11/06/2021 10/31/2022 Change in bowel movement 01/21/2018 021 Episodic lightheadedness 04/11/2015 018 Bilateral edema of lower extremity 04/11/2015 01/10/2016 Paroxysmal atrial fibrillation 03/19/2015 1 06/11/2014 Skin lesion 03/05/2010 12/20/2014 documented as of this encounter (statuses as of 11/25/2022) [facility] History of Past illness Narrative* Problem Noted Date Resolved Date Hypertensive kidney disease with stage 3a chronic kidney disease 11/06/2021 10/31/2022 Change in bowel movement 01/21/2018 021 Episodic lightheadedness 04/11/2015 018 Bilateral edema of lower extremity 04/11/2015 01/10/2016 Paroxysmal atrial fibrillation 03/19/2015 1 06/11/2014 Skin lesion 03/05/2010 12/20/2014 documented as of this encounter (statuses as of 11/26/2022) [facility] History of Past illness Narrative* Problem Noted Date Diagnosed Date Resolved Date Hypertensive kidney disease with stage 3a chronic kidney disease 11/06/2021 10/31/2022 Change in bowel movement 01/21/201812/2020 Episodic lightheadedness 04/11/2015 Bilateral edema of lower extremity 04/11/2015 01/10/2016 Paroxysmal atrial fibrillation 03/19/2015 04/11/2015 Skin lesion 03/05/2010 12/20/2014 documented as of this encounter (statuses as of 01/07/2023) [facility] History of Past illness Narrative* Problem Noted Date Diagnosed Date Resolved Date Hypertensive kidney disease with stage 3a chronic kidney disease 11/06/2021 10/31/2022 Change in bowel movement 01/21/201812/2020 Episodic lightheadedness 04/11/2015 Bilateral edema of lower extremity 04/11/2015 01/10/2016 Paroxysmal atrial fibrillation 03/19/2015 04/11/2015 Skin lesion 03/05/2010 12/20/2014 documented as of this encounter (statuses as of 02/11/2023) [facility] History of Past illness Narrative* Problem Noted Date Diagnosed Date Resolved Date Hypertensive kidney disease with stage 3a chronic kidney disease 11/06/2021 10/31/2022 Change in bowel movement 01/21/201812/2020 Episodic lightheadedness 04/11/2015 Bilateral edema of lower extremity 04/11/2015 01/10/2016 Paroxysmal atrial fibrillation 03/19/2015 04/11/2015 Skin lesion 03/05/2010 12/20/2014 documented as of this encounter (statuses as of 02/20/2023) [facility] History of Past illness Narrative* Problem Noted Date Diagnosed Date Resolved Date Hypertensive kidney disease with stage 3a chronic kidney disease 11/06/2021 10/31/2022 Change in bowel movement 01/21/201812/2020 Episodic lightheadedness 04/11/2015 Bilateral edema of lower extremity 04/11/2015 01/10/2016 Paroxysmal atrial fibrillation 03/19/2015 04/11/2015 Skin lesion 03/05/2010 12/20/2014 Hyperlipidemia LDL goal <100 08/26/2006 05/04/2023 documented as of this encounter (statuses as of 09/10/2023) [facility]05-23-2022 Miscellaneous Notes* Telephone Encounter - Love Awad RPh - 10/28/2021 12:48 PM EDT [employer] message sent with INR result, dosing and information on when to test next. Love Awad PharmD documented in this encounter[facility] Miscellaneous Notes* Telephone Encounter - Steph Saravia LPN - 10/11/2021 8:57 AM EDT Phone call placed patient advised (see prior provider encounter) Patient verbalized understanding, agreed with plan of care currently scheduled with Dr. Head's office November 05 advised need to contact office sooner appointment. Patient denied changes in SOB, swelling, weight gain. Copy blood work faxed to Dr. Joshi's office [phone] along with updated provider instructions. Steph Saravia LPN * Telephone Encounter - Tien Serrano MD - 10/11/2021 8:05 AM EDT His test for fluid/chf is up. Kidney function is slightly reduced however. 1. Take lasix 40 mg po x 3 days. Call if any increased shortness of breath or edema. 2. See if we can get him back into Dr. Roberto holden 3. Fax copy of labs to him. 4. Recheck bmp next week. documented in this encounter[facility] Miscellaneous Notes* Telephone Encounter - Love Awad RPh - 09/30/2021 3:08 PM EDT [employer] message sent with INR result, dosing and information on when to test next. Love Awad PharmD * Telephone Encounter - Arabella Lopez RPh - 09/30/2021 2:46 PM EDT Patient due to test INR today. Will continue to monitor for results. Arabella Lopez RPh documented in [facility] encounter[facility] Miscellaneous Notes* Telephone Encounter - Jamie Motley RPh - 09/16/2021 1:39 PM EDT Images from the original note were not included. Jamie Motley RPh documented in this encounterMer[facility] Miscellaneous Notes* Telephone Encounter - Caryn Cornell MA - 09/16/2021 11:44 AM EDT Patient has been identified by name and date of : Yes Pending Prescriptions Disp Refills WARFARIN 5 MG TABLET 90 tablet 1 Si.5 mg every Mon, Fri; 5 mg all other days JODIE: No RX INSTRUCTIONS: Patient aware RX escripted to mail away pharmacy. No need to notify patient. Caryn Cornell MA Mary: 03/2021 Nov: 10/2021 Last refill; 04/25/2021 90 tablets 1 refill * Telephone Encounter - Rosa Singh Pss - 09/16/2021 11:44 AM EDT Patient has been identified by name and date of : Yes Pending Prescriptions Disp Refills WARFARIN 5 MG TABLET 90 tablet 1 Si.5 mg every Mon, Fri; 5 mg all other days JODIE: No RX INSTRUCTIONS: Patient aware RX escripted to mail away pharmacy. No need to notify patient. Rosa Singh Pss documented in this encounterMer[facility] Miscellaneous Notes* Telephone Encounter - Arabella Lopze RPh - 09/03/2021 3:27 PM EDT [facility] Ambulatory Pharmacy Anticoagulation Clinic Anticoagulation Episode Summary Anticoagulation Care Providers Provider Role Specialty Phone number Tien Serrano MD Referring [facility] [phone] Wilmer Morley is a 80 year old year old male patient being evaluated today for a Telemanagement visit. Patient is currently on the following anticoagulant(s) Warfarin. Labs PT INR (no units) Date Value 09/02/2021 3.2 06/06/2021 2.5 biotel 05/23/2021 2.9 biotel INR Home CoaguChek (no units) Date Value 08/19/2021 2.6 08/05/2021 3.1 07/22/2021 3.7 Hemoglobin (g/dL) Date Value 03/14/2021 14.8 Hematocrit (%) Date Value 03/14/2021 44.9 Platelet Count (k/uL) Date Value 03/14/2021 191 Creatinine (mg/dL) Date Value 03/14/2021 1.34 09/06/2020 1.27 08/06/2020 1.43 Bilirubin, Total (mg/dL) Date Value 03/14/2021 1.1 ALT (U/L) Date Value 03/14/2021 32 AST (U/L) Date Value 03/14/2021 30 CrCl cannot be calculated (Unknown ideal weight.). ALLERGIES No Known Allergies 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: Anticoagulation Episode Summary Current INR goal: 2.0-3.0 Assessment: INR result of 3.2 is SUPRAtherapeutic due to: unknown cause - did not speak to patient Plan: Left voice message Advised patient to decrease dose for 1 day only then resume weekly regimen Next home INR check scheduled on 09/17/2021 Arabella Lopez RPh Clinical Pharmacist, Pharmacy Anticoagulation Clinic Pharmacy Anticoagulation Clinic Pager: [phone] . documented in this encounterMer[facility] Miscellaneous Notes* Telephone Encounter - Dariela Batista LPN - 04/25/2021 12:29 PM EST TC to pt. Updated him on PCP recommendations. Pt stated he understood. Dariela Batista LPN * Telephone Encounter - Tien Serrano MD - 04/25/2021 12:16 PM EST Continue what he is doing. * Telephone Encounter - Keyla Rothman LPN - 04/25/2021 11:48 AM EST Manual Readin/66 Pulse: 68 Home Cuff: 140/65 P: 66 BP Og average: 114/60 P: 67 Repeat BP Check: 123/64 P67 #1 117/62 P72 #2 115/61 P66 #3 115/59 P64 #4 110/58 P66 #5 102/57 P64 #6 Reason for blood pressure check - Last BP elevated Patient is: Taking medication as prescribed No Took medication today Yes If no, date medication last taken N/A Experiencing side effects No BP was elevated at last appt 03/14/21. Reports that he has only been taking 1/2 tablet of Lisinoprilif his SBP is >140. States that if he takes it daily he has issues with dizziness/lightheadedness. He did take 1/2 tablet today. Home readings have ranged from 90's-150's/60-70's. No caffeine use.Past personal history of tobacco use; no current exposure. Alert and oriented. Pt has been identified by name and birthdate: Yes Allergies reviewed: Yes Latex allergy: no. Medication - prescribed and OTC reviewed and updated: Yes Do you need any prescription refills prior to your next visit: Yes Health Maintenance: Reviewed and not up to date and provider notified Patient advised that he would be contacted after review by PCP. Keyla Rothman LPN documented in this encounter[facility] History of Past illness Narrative* Problem Noted Date Resolved Date Change in bowel movement 01/21/2018 021 Episodic lightheadedness 04/11/2015 018 Bilateral edema of lower extremity 04/11/2015 01/10/2016 Paroxysmal atrial fibrillation 03/19/2015 1 06/11/2014 Skin lesion 03/05/2010 12/20/2014 documented as of this encounter (statuses as of 09/03/2021) [facility] History of Past illness Narrative* Problem Noted Date Resolved Date Change in bowel movement 01/21/2018 021 Episodic lightheadedness 04/11/2015 018 Bilateral edema of lower extremity 04/11/2015 01/10/2016 Paroxysmal atrial fibrillation 03/19/2015 1 06/11/2014 Skin lesion 03/05/2010 12/20/2014 documented as of this encounter (statuses as of 09/16/2021) [facility] History of Past illness Narrative* Problem Noted Date Resolved Date Change in bowel movement 01/21/2018 021 Episodic lightheadedness 04/11/2015 018 Bilateral edema of lower extremity 04/11/2015 01/10/2016 Paroxysmal atrial fibrillation 03/19/2015 1 06/11/2014 Skin lesion 03/05/2010 12/20/2014 documented as of this encounter (statuses as of 09/16/2021) [address]16-2018 History of Past illness Narrative* Problem Noted Date Resolved Date Change in bowel movement 01/21/2018 021 Episodic lightheadedness 04/11/2015 018 Bilateral edema of lower extremity 04/11/2015 01/10/2016 Paroxysmal atrial fibrillation 03/19/2015 1 06/11/2014 Skin lesion 03/05/2010 12/20/2014 documented as of this encounter (statuses as of 09/30/2021) [address]16-2018 History of Past illness Narrative* Problem Noted Date Resolved Date Change in bowel movement 01/21/2018 021 Episodic lightheadedness 04/11/2015 018 Bilateral edema of lower extremity 04/11/2015 01/10/2016 Paroxysmal atrial fibrillation 03/19/2015 1 06/11/2014 Skin lesion 03/05/2010 12/20/2014 documented as of this encounter (statuses as of 10/11/2021) [address]16-2018 History of Past illness Narrative* Problem Noted Date Resolved Date Change in bowel movement 01/21/2018 021 Episodic lightheadedness 04/11/2015 018 Bilateral edema of lower extremity 04/11/2015 01/10/2016 Paroxysmal atrial fibrillation 03/19/2015 1 06/11/2014 Skin lesion 03/05/2010 12/20/2014 documented as of this encounter (statuses as of 10/14/2021) [address]16-2018 History of Past illness Narrative* Problem Noted Date Resolved Date Change in bowel movement 01/21/2018 021 Episodic lightheadedness 04/11/2015 018 Bilateral edema of lower extremity 04/11/2015 01/10/2016 Paroxysmal atrial fibrillation 03/19/2015 1 06/11/2014 Skin lesion 03/05/2010 12/20/2014 documented as of this encounter (statuses as of 10/28/2021) [address]16-2018 History of Past illness Narrative* Problem Noted Date Resolved Date Change in bowel movement 01/21/2018 021 Episodic lightheadedness 04/11/2015 018 Bilateral edema of lower extremity 04/11/2015 01/10/2016 Paroxysmal atrial fibrillation 03/19/2015 1 06/11/2014 Skin lesion 03/05/2010 12/20/2014 documented as of this encounter (statuses as of 11/08/2021) [address]16-2018 History of Past illness Narrative* Problem Noted Date Resolved Date Change in bowel movement 01/21/2018 021 Episodic lightheadedness 04/11/2015 018 Bilateral edema of lower extremity 04/11/2015 01/10/2016 Paroxysmal atrial fibrillation 03/19/2015 1 06/11/2014 Skin lesion 03/05/2010 12/20/2014 documented as of this encounter (statuses as of 11/26/2021) [address]16-2018 History of Past illness Narrative* Problem Noted Date Resolved Date Change in bowel movement 01/21/2018 021 Episodic lightheadedness 04/11/2015 018 Bilateral edema of lower extremity 04/11/2015 01/10/2016 Paroxysmal atrial fibrillation 03/19/2015 1 06/11/2014 Skin lesion 03/05/2010 12/20/2014 documented as of this encounter (statuses as of 12/12/2021) [address]16-2018 History of Past illness Narrative* Problem Noted Date Resolved Date Change in bowel movement 01/21/2018 021 Episodic lightheadedness 04/11/2015 018 Bilateral edema of lower extremity 04/11/2015 01/10/2016 Paroxysmal atrial fibrillation 03/19/2015 1 06/11/2014 Skin lesion 03/05/2010 12/20/2014 documented as of this encounter (statuses as of 2021) [address]16-2018 History of Past illness Narrative* Problem Noted Date Resolved Date Change in bowel movement 01/21/2018 021 Episodic lightheadedness 04/11/2015 018 Bilateral edema of lower extremity 04/11/2015 01/10/2016 Paroxysmal atrial fibrillation 03/19/2015 1 06/11/2014 Skin lesion 03/05/2010 12/20/2014 documented as of this encounter (statuses as of 01/08/2022) [address]16-2018 History of Past illness Narrative* Problem Noted Date Resolved Date Change in bowel movement 01/21/2018 021 Episodic lightheadedness 04/11/2015 018 Bilateral edema of lower extremity 04/11/2015 01/10/2016 Paroxysmal atrial fibrillation 03/19/2015 1 06/11/2014 Skin lesion 03/05/2010 12/20/2014 documented as of this encounter (statuses as of 01/18/2022) [facility] History of Past illness Narrative* Problem Noted Date Resolved Date Change in bowel movement 01/21/2018 021 Episodic lightheadedness 04/11/2015 018 Bilateral edema of lower extremity 04/11/2015 01/10/2016 Paroxysmal atrial fibrillation 03/19/2015 1 06/11/2014 Skin lesion 03/05/2010 12/20/2014 documented as of this encounter (statuses as of 01/24/2022) [facility] History of Past illness Narrative* Problem Noted Date Resolved Date Change in bowel movement 01/21/2018 021 Episodic lightheadedness 04/11/2015 018 Bilateral edema of lower extremity 04/11/2015 01/10/2016 Paroxysmal atrial fibrillation 03/19/2015 1 06/11/2014 Skin lesion 03/05/2010 12/20/2014 documented as of this encounter (statuses as of 01/25/2022) [facility]08[facility] History of Past illness Narrative* Problem Noted Date Resolved Date Change in bowel movement 01/21/2018 021 Episodic lightheadedness 04/11/2015 018 Bilateral edema of lower extremity 04/11/2015 01/10/2016 Paroxysmal atrial fibrillation 03/19/2015 1 06/11/2014 Skin lesion 03/05/2010 12/20/2014 documented as of this encounter (statuses as of 01/30/2022) [address]16-2018 History of Past illness Narrative* Problem Noted Date Resolved Date Change in bowel movement 01/21/2018 021 Episodic lightheadedness 04/11/2015 018 Bilateral edema of lower extremity 04/11/2015 01/10/2016 Paroxysmal atrial fibrillation 03/19/2015 1 06/11/2014 Skin lesion 03/05/2010 12/20/2014 documented as of this encounter (statuses as of 02/03/2022) [address]16-2018 History of Past illness Narrative* Problem Noted Date Resolved Date Change in bowel movement 01/21/2018 021 Episodic lightheadedness 04/11/2015 018 Bilateral edema of lower extremity 04/11/2015 01/10/2016 Paroxysmal atrial fibrillation 03/19/2015 1 06/11/2014 Skin lesion 03/05/2010 12/20/2014 documented as of this encounter (statuses as of 02/03/2022) [address]16-2018 History of Past illness Narrative* Problem Noted Date Resolved Date Change in bowel movement 01/21/2018 021 Episodic lightheadedness 04/11/2015 018 Bilateral edema of lower extremity 04/11/2015 01/10/2016 Paroxysmal atrial fibrillation 03/19/2015 1 06/11/2014 Skin lesion 03/05/2010 12/20/2014 documented as of this encounter (statuses as of 02/18/2022) [address]16-2018 History of Past illness Narrative* Problem Noted Date Resolved Date Change in bowel movement 01/21/2018 021 Episodic lightheadedness 04/11/2015 018 Bilateral edema of lower extremity 04/11/2015 01/10/2016 Paroxysmal atrial fibrillation 03/19/2015 1 06/11/2014 Skin lesion 03/05/2010 12/20/2014 documented as of this encounter (statuses as of 02/20/2022) [address]16-2018 History of Past illness Narrative* Problem Noted Date Resolved Date Change in bowel movement 01/21/2018 021 Episodic lightheadedness 04/11/2015 018 Bilateral edema of lower extremity 04/11/2015 01/10/2016 Paroxysmal atrial fibrillation 03/19/2015 1 06/11/2014 Skin lesion 03/05/2010 12/20/2014 documented as of this encounter (statuses as of 03/19/2022) [address]16-2018 History of Past illness Narrative* Problem Noted Date Resolved Date Change in bowel movement 01/21/2018 021 Episodic lightheadedness 04/11/2015 018 Bilateral edema of lower extremity 04/11/2015 01/10/2016 Paroxysmal atrial fibrillation 03/19/2015 1 06/11/2014 Skin lesion 03/05/2010 12/20/2014 documented as of this encounter (statuses as of 03/21/2022) [facility] History of Past illness Narrative* Problem Noted Date Resolved Date Change in bowel movement 01/21/2018 021 Episodic lightheadedness 04/11/2015 018 Bilateral edema of lower extremity 04/11/2015 01/10/2016 Paroxysmal atrial fibrillation 03/19/2015 1 06/11/2014 Skin lesion 03/05/2010 12/20/2014 documented as of this encounter (statuses as of 04/04/2022) [facility] History of Past illness Narrative* Problem Noted Date Resolved Date Change in bowel movement 01/21/2018 021 Episodic lightheadedness 04/11/2015 018 Bilateral edema of lower extremity 04/11/2015 01/10/2016 Paroxysmal atrial fibrillation 03/19/2015 1 06/11/2014 Skin lesion 03/05/2010 12/20/2014 documented as of this encounter (statuses as of 04/07/2022) [facility] History of Past illness Narrative* Problem Noted Date Resolved Date Change in bowel movement 01/21/2018 021 Episodic lightheadedness 04/11/2015 018 Bilateral edema of lower extremity 04/11/2015 01/10/2016 Paroxysmal atrial fibrillation 03/19/2015 1 06/11/2014 Skin lesion 03/05/2010 12/20/2014 documented as of this encounter (statuses as of 04/22/2022) [address]16-2018 History of Past illness Narrative* Problem Noted Date Resolved Date Change in bowel movement 01/21/2018 021 Episodic lightheadedness 04/11/2015 018 Bilateral edema of lower extremity 04/11/2015 01/10/2016 Paroxysmal atrial fibrillation 03/19/2015 1 06/11/2014 Skin lesion 03/05/2010 12/20/2014 documented as of this encounter (statuses as of 04/29/2022) [facility] History of Past illness Narrative* Problem Noted Date Resolved Date Change in bowel movement 01/21/2018 021 Episodic lightheadedness 04/11/2015 018 Bilateral edema of lower extremity 04/11/2015 01/10/2016 Paroxysmal atrial fibrillation 03/19/2015 1 06/11/2014 Skin lesion 03/05/2010 12/20/2014 documented as of this encounter (statuses as of 05/07/2022) [facility] History of Past illness Narrative* Problem Noted Date Resolved Date Change in bowel movement 01/21/2018 021 Episodic lightheadedness 04/11/2015 018 Bilateral edema of lower extremity 04/11/2015 01/10/2016 Paroxysmal atrial fibrillation 03/19/2015 1 06/11/2014 Skin lesion 03/05/2010 12/20/2014 documented as of this encounter (statuses as of 05/08/2022) [place] [address]-16-2018 History of Past illness Narrative* Problem Noted Date Resolved Date Change in bowel movement 01/21/2018 021 Episodic lightheadedness 04/11/2015 018 Bilateral edema of lower extremity 04/11/2015 01/10/2016 Paroxysmal atrial fibrillation 03/19/2015 1 06/11/2014 Skin lesion 03/05/2010 12/20/2014 documented as of this encounter (statuses as of 05/22/2022) [place] [address]16-2018 History of Past illness Narrative* Problem Noted Date Resolved Date Change in bowel movement 01/21/2018 021 Episodic lightheadedness 04/11/2015 018 Bilateral edema of lower extremity 04/11/2015 01/10/2016 Paroxysmal atrial fibrillation 03/19/2015 1 06/11/2014 Skin lesion 03/05/2010 12/20/2014 documented as of this encounter (statuses as of 06/12/2022) [address]16-2018 History of Past illness Narrative* Problem Noted Date Resolved Date Change in bowel movement 01/21/2018 021 Episodic lightheadedness 04/11/2015 018 Bilateral edema of lower extremity 04/11/2015 01/10/2016 Paroxysmal atrial fibrillation 03/19/2015 1 06/11/2014 Skin lesion 03/05/2010 12/20/2014 documented as of this encounter (statuses as of 06/19/2022) [address]16-2018 History of Past illness Narrative* Problem Noted Date Resolved Date Change in bowel movement 01/21/2018 021 Episodic lightheadedness 04/11/2015 018 Bilateral edema of lower extremity 04/11/2015 01/10/2016 Paroxysmal atrial fibrillation 03/19/2015 1 06/11/2014 Skin lesion 03/05/2010 12/20/2014 documented as of this encounter (statuses as of 06/24/2022) [address]16-2018 History of Past illness Narrative* Problem Noted Date Resolved Date Change in bowel movement 01/21/2018 021 Episodic lightheadedness 04/11/2015 018 Bilateral edema of lower extremity 04/11/2015 01/10/2016 Paroxysmal atrial fibrillation 03/19/2015 1 06/11/2014 Skin lesion 03/05/2010 12/20/2014 documented as of this encounter (statuses as of 07/11/2022) [address]16-2018 History of Past illness Narrative* Problem Noted Date Resolved Date Change in bowel movement 01/21/2018 021 Episodic lightheadedness 04/11/2015 018 Bilateral edema of lower extremity 04/11/2015 01/10/2016 Paroxysmal atrial fibrillation 03/19/2015 1 06/11/2014 Skin lesion 03/05/2010 12/20/2014 documented as of this encounter (statuses as of 07/24/2022) [address]16-2018 History of Past illness Narrative* Problem Noted Date Resolved Date Change in bowel movement 01/21/2018 021 Episodic lightheadedness 04/11/2015 018 Bilateral edema of lower extremity 04/11/2015 01/10/2016 Paroxysmal atrial fibrillation 03/19/2015 1 06/11/2014 Skin lesion 03/05/2010 12/20/2014 documented as of this encounter (statuses as of 08/06/2022) [address]16-2018 History of Past illness Narrative* Problem Noted Date Resolved Date Change in bowel movement 01/21/2018 021 Episodic lightheadedness 04/11/2015 018 Bilateral edema of lower extremity 04/11/2015 01/10/2016 Paroxysmal atrial fibrillation 03/19/2015 1 06/11/2014 Skin lesion 03/05/2010 12/20/2014 documented as of this encounter (statuses as of 08/13/2022) [facility] illness Narrative* Problem Noted Date Resolved Date Change in bowel movement 01/21/2018 021 Episodic lightheadedness 04/11/2015 018 Bilateral edema of lower extremity 04/11/2015 01/10/2016 Paroxysmal atrial fibrillation 03/19/2015 1 06/11/2014 Skin lesion 03/05/2010 12/20/2014 documented as of this encounter (statuses as of 08/21/2022) [facility] History of Past illness Narrative* Problem Noted Date Resolved Date Change in bowel movement 01/21/2018 021 Episodic lightheadedness 04/11/2015 018 Bilateral edema of lower extremity 04/11/2015 01/10/2016 Paroxysmal atrial fibrillation 03/19/2015 1 06/11/2014 Skin lesion 03/05/2010 12/20/2014 documented as of this encounter (statuses as of 09/08/2022) [facility]08-16-2018 History of Past illness Narrative* Problem Noted Date Resolved Date Change in bowel movement 01/21/2018 021 Episodic lightheadedness 04/11/2015 018 Bilateral edema of lower extremity 04/11/2015 01/10/2016 Paroxysmal atrial fibrillation 03/19/2015 1 06/11/2014 Skin lesion 03/05/2010 12/20/2014 documented as of this encounter (statuses as of 09/13/2022) [address]16-2018 History of Past illness Narrative* Problem Noted Date Resolved Date Change in bowel movement 01/21/2018 021 Episodic lightheadedness 04/11/2015 018 Bilateral edema of lower extremity 04/11/2015 01/10/2016 Paroxysmal atrial fibrillation 03/19/2015 1 06/11/2014 Skin lesion 03/05/2010 12/20/2014 documented as of this encounter (statuses as of 10/22/2022) [facility]08-16-2018 History of Past illness Narrative* Problem Noted Date Resolved Date Change in bowel movement 01/21/2018 021 Episodic lightheadedness 04/11/2015 018 Bilateral edema of lower extremity 04/11/2015 01/10/2016 Paroxysmal atrial fibrillation 03/19/2015 1 06/11/2014 Skin lesion 03/05/2010 12/20/2014 documented as of this encounter (statuses as of 10/23/2022) [facility] note* Diagnosis USP (current) use of anticoagulants- Primary Long-term (current) use of anticoagulants History of DVT (deep vein thrombosis) Personal history of venous thrombosis and embolism [facility] Diagnosis Congestive heart failure, unspecified HF chronicity, unspecified heart failure type (HCC)- Primary [facility] Diagnosis long term (current) use of anticoagulants- Primary Long-term (current) use of anticoagulants History of DVT (deep vein thrombosis) Personal history of venous thrombosis and embolism Atrial fibrillation, unspecified type (HCC) [facility] Diagnosis USP (current) use of anticoagulants- Primary Long-term (current) use of anticoagulants History of DVT (deep vein thrombosis) Personal history of venous thrombosis and embolism Atrial fibrillation, unspecified type (HCC) [facility] Diagnosis Skin lesion- Primary Unspecified disorder of skin and subcutaneous tissue [facility] Diagnosis Skin lesion- Primary Unspecified disorder of skin and subcutaneous tissue Dysesthesia Disturbance of skin sensation [facility] Diagnosis Abdominal pain, left lateral- Primary Abdominal pain, unspecified site [facility] this [facility] Diagnosis Abnormal casts in urine- Primary Other cells and casts in urine Urine protein increased Proteinuria [facility] this [facility] Diagnosis Hyperlipidemia LDL goal <100 Other and unspecified hyperlipidemia [facility] this [facility] Diagnosis Essential hypertension, benign- Primary Hyperlipidemia LDL goal <100 Other and unspecified hyperlipidemia Atrial fibrillation, unspecified type (HCC) Moderate tricuspid regurgitation Diseases of tricuspid valve Stage 3a chronic kidney disease (HCC) Hyperglycemia Other abnormal glucose Hx of skin cancer, basal cell Personal history of other malignant neoplasm of skin Generalized anxiety disorder Abnormal breath sounds Abnormal chest sounds documented in this [facility]* Diagnosis USP (current) use of anticoagulants- Primary Long-term (current) use of anticoagulants History of DVT (deep vein thrombosis) Personal history of venous thrombosis and embolism Atrial fibrillation, unspecified type (HCC) documented in this encounter [facility]* Diagnosis Hyperglycemia- Primary Other abnormal glucose documented in this encounter [facility]* Diagnosis long term (current) use of anticoagulants- Primary Long-term (current) use of anticoagulants History of DVT (deep vein thrombosis) Personal history of venous thrombosis and embolism Atrial fibrillation, unspecified type (HCC) documented in this encounter [facility]* Diagnosis Essential hypertension, benign- Primary Screening for colon cancer Special screening for malignant neoplasms, colon documented in this [facility] Diagnosis Hyperlipidemia LDL goal <100 Other and unspecified hyperlipidemia Essential hypertension, benign documented in this encounter [facility]* Diagnosis USP (current) use of anticoagulants- Primary Long-term (current) use of anticoagulants Atrial fibrillation, unspecified type (HCC) History of DVT (deep vein thrombosis) Personal history of venous thrombosis and embolism documented in this encounter [facility]* Diagnosis Essential hypertension, benign documented in this [facility] Diagnosis USP (current) use of anticoagulants- Primary Long-term (current) use of anticoagulants ATRIAL FIBRILLATION History of DVT (deep vein thrombosis) Personal history of venous thrombosis and embolism documented in this [facility]* Diagnosis USP (current) use of anticoagulants- Primary Long-term (current) use of anticoagulants History of DVT (deep vein thrombosis) Personal history of venous thrombosis and embolism documented in this encounter [facility]* Diagnosis long term (current) use of anticoagulants- Primary Long-term (current) use of anticoagulants History of DVT (deep vein thrombosis) Personal history of venous thrombosis and embolism documented in this encounter [facility]* Diagnosis Moderate mitral regurgitation Mitral valve disorders [facility] Diagnosis Hyperlipidemia LDL goal <100 Other and unspecified hyperlipidemia documented in this encounter [facility]* Diagnosis Anxiety Anxiety state, unspecified Generalized anxiety disorder Hyperlipidemia LDL goal <100 Other and unspecified hyperlipidemia Essential hypertension, benign [facility] Diagnosis long term (current) use of anticoagulants- Primary Long-term (current) use of anticoagulants ATRIAL FIBRILLATION History of DVT (deep vein thrombosis) Personal history of venous thrombosis and embolism [facility] Diagnosis Anxiety Anxiety state, unspecified [facility] Diagnosis long term (current) use of anticoagulants- Primary Long-term (current) use of anticoagulants ATRIAL FIBRILLATION History of DVT (deep vein thrombosis) Personal history of venous thrombosis and embolism [facility] Diagnosis Atrial fibrillation, unspecified type (HCC)- Primary Essential hypertension, benign Moderate mitral regurgitation Mitral valve disorders Stage 3a chronic kidney disease (HCC) Hyperglycemia Other abnormal glucose Hx of skin cancer, basal cell Personal history of other malignant neoplasm of skin Generalized anxiety disorder USP (current) use of anticoagulants Long-term (current) use of anticoagulants long term 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 Balance problem Other symptoms involving nervous and musculoskeletal systems Impacted cerumen of left ear Impacted cerumen [facility] Diagnosis Renal insufficiency- Primary Unspecified disorder of kidney and ureter [facility] Diagnosis long term (current) use of anticoagulants- Primary Long-term (current) use of anticoagulants History of DVT (deep vein thrombosis) Personal history of venous thrombosis and embolism [facility]* Diagnosis Lightheaded- Primary Dizziness and giddiness Atrial fibrillation, unspecified type (HCC) Essential hypertension, benign Moderate mitral regurgitation Mitral valve disorders Moderate tricuspid regurgitation Diseases of tricuspid valve Hyperglycemia Other abnormal glucose Generalized anxiety disorder History of DVT (deep vein thrombosis) Personal history of venous thrombosis and embolism Benign paroxysmal positional vertigo of right ear SOB (shortness of breath) Shortness of breath [facility] Diagnosis Essential hypertension, benign Hyperlipidemia LDL goal <100 Other and unspecified hyperlipidemia [facility]* Diagnosis long term (current) use of anticoagulants- Primary Long-term (current) use of anticoagulants History of DVT (deep vein thrombosis) Personal history of venous thrombosis and embolism [facility] Diagnosis Lightheaded- Primary Dizziness and giddiness Benign paroxysmal positional vertigo of right ear documented in this encounter [facility] note* Diagnosis USP (current) use of anticoagulants- Primary Long-term (current) use of anticoagulants ATRIAL FIBRILLATION History of DVT (deep vein thrombosis) Personal history of venous thrombosis and embolism documented in this encounter [facility] note* Diagnosis SOB (shortness of breath)- Primary Shortness of breath Lightheadedness Dizziness and giddiness Lightheaded Dizziness and giddiness Lightheadedness Dizziness and giddiness documented in this encounter [facility] note* Diagnosis SOB (shortness of breath) Shortness of breath Lightheadedness Dizziness and giddiness documented in this encounter [facility] note* Diagnosis SOB (shortness of breath) Shortness of breath Lightheadedness Dizziness and giddiness documented in this encounter [facility] note* Diagnosis SOB (shortness of breath) Shortness of breath Lightheadedness Dizziness and giddiness documented in this encounter [facility] note* Diagnosis Chronic obstructive pulmonary disease, unspecified COPD type (HCC)- Primary documented in this encounter [facility] note* Diagnosis Lightheadedness Dizziness and giddiness documented in this encounter [facility] note* Diagnosis Lightheaded- Primary Dizziness and giddiness Benign paroxysmal positional vertigo of right ear documented in this encounter [facility] note* Diagnosis long term (current) use of anticoagulants- Primary Long-term (current) use of anticoagulants History of DVT (deep vein thrombosis) Personal history of venous thrombosis and embolism documented in this encounter [facility] note* Diagnosis Lightheaded- Primary Dizziness and giddiness Benign paroxysmal positional vertigo of right ear documented in this encounter [facility] note* Diagnosis Abnormal breath sounds Abnormal chest sounds documented in this encounter [facility] note* Diagnosis USP (current) use of anticoagulants- Primary Long-term (current) use of anticoagulants History of DVT (deep vein thrombosis) Personal history of venous thrombosis and embolism documented in this encounter [facility] note* Diagnosis SOB (shortness of breath) Shortness of breath documented in this encounter [facility] note* Diagnosis long term (current) use of anticoagulants- Primary Long-term (current) use of anticoagulants ATRIAL FIBRILLATION History of DVT (deep vein thrombosis) Personal history of venous thrombosis and embolism documented in this encounter [facility] note* Diagnosis Chronic obstructive pulmonary disease, unspecified COPD type (HCC)- Primary Irritable bowel syndrome with diarrhea Irritable bowel syndrome documented in this encounter [facility] note* Diagnosis Lightheaded- Primary Dizziness and giddiness Benign paroxysmal positional vertigo of right ear documented in this encounter [facility] note* Diagnosis long term (current) use of anticoagulants- Primary Long-term (current) use of anticoagulants ATRIAL FIBRILLATION History of DVT (deep vein thrombosis) Personal history of venous thrombosis and embolism documented in this encounter [facility] note* Diagnosis Chronic obstructive pulmonary disease, unspecified COPD type (HCC)- Primary Atrial fibrillation, unspecified type (HCC) Essential hypertension, benign Stage 3a chronic kidney disease (HCC) Generalized anxiety disorder Anxiety Anxiety state, unspecified Encounter for immunization Need for other specified prophylactic vaccination against single bacterial disease Hyperglycemia Other abnormal glucose documented [facility]* Diagnosis Anxiety Anxiety state, unspecified documented in this encounter [facility] note* Diagnosis USP (current) use of anticoagulants- Primary Long-term (current) use of anticoagulants ATRIAL FIBRILLATION History of DVT (deep vein thrombosis) Personal history of venous thrombosis and embolism documented in this encounter [facility] note* Diagnosis USP (current) use of anticoagulants- Primary Long-term (current) use of anticoagulants ATRIAL FIBRILLATION History of DVT (deep vein thrombosis) Personal history of venous thrombosis and embolism documented in this encounter [facility] note* Diagnosis Hyperlipidemia LDL goal <100 Other and unspecified hyperlipidemia documented in this encounter [facility] note* Diagnosis USP (current) use of anticoagulants- Primary Long-term (current) use of anticoagulants History of DVT (deep vein thrombosis) Personal history of venous thrombosis and embolism documented in this encounter [facility] note* Diagnosis COPD with exacerbation (HCC)- Primary Obstructive chronic bronchitis with exacerbation Atrial fibrillation, unspecified type (HCC) Essential hypertension, benign Moderate mitral regurgitation Mitral valve disorders Moderate tricuspid regurgitation Diseases of tricuspid valve Chronic obstructive pulmonary disease, unspecified COPD type (HCC) Stage 3a chronic kidney disease (HCC) Hyperglycemia Other abnormal glucose USP (current) use of anticoagulants Long-term (current) use of anticoagulants History of DVT (deep vein thrombosis) Personal history of venous thrombosis and embolism long term 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 SOB (shortness of breath) Shortness of breath documented in this encounter [facility] note* Diagnosis SOB (shortness of breath) Shortness of breath COPD with exacerbation (HCC) Obstructive chronic bronchitis with exacerbation documented in this encounter [facility] note* Diagnosis Essential hypertension, benign- Primary Screening for depression Congestive heart failure, unspecified HF chronicity, unspecified heart failure type (HCC) Atrial fibrillation, unspecified type (HCC) Stage 3a chronic kidney disease (HCC) Chronic obstructive pulmonary disease, unspecified COPD type (HCC) SOB (shortness of breath) Shortness of breath documented in this encounter [facility] note* Diagnosis Essential hypertension, benign- Primary documented in this encounter [facility] note* Diagnosis COPD, moderate (HCC)- Primary Chronic airway obstruction, not elsewhere classified Former cigarette smoker Personal history of tobacco use, presenting hazards to health Moderate pulmonary hypertension (HCC) documented in this encounter [facility] note* Diagnosis Anxiety Anxiety state, unspecified documented in this encounter [facility] note* Diagnosis Vertigo- Primary Dizziness and giddiness Atrial fibrillation, unspecified type (HCC) Essential hypertension, benign Chronic obstructive pulmonary disease, unspecified COPD type (HCC) Stage 3a chronic kidney disease (HCC) Hyperglycemia Other abnormal glucose USP (current) use of anticoagulants Long-term (current) use of anticoagulants History of DVT (deep vein thrombosis) Personal history of venous thrombosis and embolism Pulmonary HTN (HCC) Other chronic pulmonary heart diseases Congestive heart failure, unspecified HF chronicity, unspecified heart failure type (HCC) MARY BETH (obstructive sleep apnea) Obstructive sleep apnea (adult) (pediatric) documented in this encounter [facility] note* Diagnosis USP (current) use of anticoagulants- Primary Long-term (current) use of anticoagulants ATRIAL FIBRILLATION History of DVT (deep vein thrombosis) Personal history of venous thrombosis and embolism documented in this encounter [facility] note* Diagnosis USP (current) use of anticoagulants- Primary Long-term (current) use of anticoagulants History of DVT (deep vein thrombosis) Personal history of venous thrombosis and embolism documented in this encounter [facility] note* Diagnosis Essential hypertension, benign documented in this encounter [facility] noteNo assessment information availableKindred Hospital Work Phone: Evaluation note* Diagnosis Visit for suture removal- Primary Encounter for removal of sutures documented in this encounter [facility] note* Diagnosis Vertigo- Primary Dizziness and giddiness documented in this encounter [facility] note* Diagnosis MARY BETH (obstructive sleep apnea)- Primary Obstructive sleep apnea (adult) (pediatric) documented in this encounter [facility] note* Diagnosis Renal insufficiency- Primary Unspecified disorder of kidney and ureter documented in this encounter [facility] note* Diagnosis Stage 3b chronic kidney disease (HCC)- Primary documented in this encounter [facility] note* Diagnosis Hyperlipidemia LDL goal <100 Other and unspecified hyperlipidemia documented in this encounter [facility] for referral (narrative)* Outpatient Procedure (Routine) - Authorized Specialty Diagnoses / Procedures Referred By Contac t Referred To Contact [facility] Diagnoses SOB (shortness of breath) Lightheadedness Procedures SIX MINUTE WALK CARDIOPULMONARY EXERCISE STRESS Tien Serrano MD [address] [place] [address] Res[facility] [place] [id number] Referral ID Status Reason Start Date Expiration Date Visits Requested Visits Authorized [id number] Authorized Auto-Generat ed Referral 02/10/2024 03/11/2025 1 1 * Outpatient Procedure (Routine) - Authorized Specialty Diagnoses / Procedures Referred By Contac t Referred To Contact [facility] [place] Diagnoses SOB (shortness of breath) Lightheadedness Procedures LUNG VOLUMES Tien Serrano MD [address] [place] [address] Res[facility] [place] [id number] Referral ID Status Reason Start Date Expiration Date Visits Requested Visits Authorized [id number] Authorized Auto-Generat ed Referral 02/10/2024 03/11/2025 1 1 * Outpatient Procedure (Routine) - Authorized Specialty Diagnoses / Procedures Referred By Contac t Referred To Contact [facility] Diagnoses SOB (shortness of breath) Lightheadedness Procedures SPIROMETRY WITH DILATOR IF OBSTRUCTED BRNCDILAT RSPSE SPMTRY PRE&POST-BRNCDILAT ADMN Tien Serrano MD [address] [place] [address] Respiratory [place] [address] [place] [address] Referral ID Status Reason Start Date Expiration Date Visits Requested Visits Authorized [id number] Authorized Auto-Generat ed Referral 02/10/2024 03/11/2025 [address] [facility])No reason for referral information availableLogansport Memorial [facility] Work Phone: Reason for visit Narrative* Radiology (Routine) - Closed Specialty Diagnoses / Procedures Referred By Contac t Referred To Contact Diagnoses Atrial fibrillation, unspecified type Dyspnea on exertion Procedures ECHOCARDIOGRAM OR ECHO TTHRC R-T 2D W/WOM-MODE COMPL SPEC&COLR D Tien Head DO [address] [place] [address] Phone: tel: fax: Referral ID Status Reason Start Date Expiration Date Visits Re quested Visits Authorized [id number] Closed 11/09/2024 12/04/2025 1 1 [facility] Reason for Referral Status Reason Specialty Diagnoses / Procedures Referred By Contact Referred To Contact Closed Cardiovascular Medicine Diagnoses Moderate mitral regurgitation Procedures ECHOCARDIOGRAM Tien Head DO [address] [place] [address] [facility] Echocardiograph y [address] [place] [address] Status Reason Specialty Diagnoses / Procedures Re ferred By Contact Referred To Contact New Request Diagnoses Moderate mitral regurgitation Procedures ECHOCARDIOGRAM Tien Head DO [address] [place] [address] Specialty Diagnoses / Procedures Referred By Contac t Referred To Contact Cardiology Diagnoses Congestive heart failure, unspecified HF chronicity, unspecified heart failure type (HCC) Procedures CONSULT TO CARDIOLOGY Tien Serrano MD [address] [place] [address] Referral ID Status Reason Start Date Expiration Date Visits Requested Visits Authorized [id number] Ref Not Required PCP Requested Referral 10/11/2021 10/11/2022 1 1 Specialty Diagnoses / Procedures Referred By Contac t Referred To Contact General Surgery Diagnoses Screening for colon cancer Procedures CONSULT TO GENERAL SURGERY OFFICE/OUTPATIENT [facility] MDM 60-74 MINUTES Katy Galdamez APRN.CNP [address] [place] [address] Referral ID Status Reason Start Date Expiration Date Visits Requested Visits Authorized [id number] Pending Review PCP Requested Referral 11/24/2022 11/24/2023 1 1 Specialty Diagnoses / Procedures Referred By Contac t Referred To Contact Diagnoses Generalized anxiety disorder Paulino Ruiz PA-C [address] [place] [address] Referral ID Status Reason Start Date Expiration Date V isits Requested Visits Authorized [id number] Authorized 01/20/2023 02/19/2024 1 1 Specialty Diagnoses / Procedures Referred By Contac t Referred To Contact Diagnoses Moderate mitral regurgitation Procedures ECHOCARDIOGRAM OR ECHO HEART XTHORACIC,COMPLETE W DOPPLER Tien Head DO [address] [place] [id number] Referral ID Status Reason Start Date Expiration Date Visits Re quested Visits Authorized [id number] Closed 10/15/2022 11/09/2023 1 1 Specialty Diagnoses / Procedures Referred By Contac t Referred To Contact Ent - Otolaryngology Diagnoses Balance problem Impacted cerumen of left ear Procedures CONSULT TO ENT OFFICE/OUTPATIENT [facility] MDM 60 MINUTES Tien Serrano MD [address] [place] [address] Referral ID Status Reason Start Date Expiration Date Visits Requested Visits Authorized [id number] Authorized PCP Requested Referral 11/11/2023 11/10/2024 1 1 Specialty Diagnoses / Procedures Referred By Contac t Referred To Contact [facility] Diagnoses Lightheaded Benign paroxysmal positional vertigo of right ear Procedures CONSULT TO PHYSICAL THERAPY PH[facility] EVALUATION HIGH COMPLEX 45 MINS Tien Serrano MD [address] [place] [address] [facility] [place] [address] Referral ID Status Reason Start Date Expiration Date Visits Requested Visits Authorized [id number] Authorized Auto-Generat ed Referral 06/08/2023 06/07/2024 99 99 Assessments Diagnosis Moderate mitral regurgitation Mitral valve disorders Diagnosis Moderate mitral regurgitation- Primary Mitral valve disorders Paroxysmal atrial fibrillation Atrial fibrillation Chronic anticoagulation Encounter for long-term (current) use of anticoagulants Essential hypertension Unspecified essential hypertension Palpitations History of Present Illness * Tien Head, DO - 11/11/2018 11:00 AM EDT Pertinent cardiac diagnoses Paroxysmal atrial fibrillation (hcc) (primary encounter diagnosis) Essential hypertension, benign Moderate mitral regurgitation Moderate tricuspid regurgitation Hyperlipidemia ldl goal <100 Venous (peripheral) insufficiency Chronic anticoagulation Asymptomatic lv dysfunction long term 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 History of Present Illness 77 y.o. male here for one year follow-up. He remains asymptomatic from acardiac standpoint with only a rare palpitation. No unusual shortness of breath PND orthopnea lowerextremity edema. No exertional chest discomfort. He has not had an echocardiogram for several yearsto follow his valvular disease. No Known Allergies Outpatient Medications Prior to Visit Medication Sig Dispense Refill amLODIPine 5 MG Tab tablet TAKE 1 TABLET DAILY Aspirin (ECOTRIN LOW STRENGTH) [address] tablet Take by mouth. atorvastatin 20 MG Tab tablet TAKE 1 TABLET DAILY flecainide 100 MG Tab tablet Take 100 mg by mouth 2 times daily. lisinopril-hydrochlorothiazide 20-25 MG Tab per tablet Take by mouth. sertraline 50 MG Tab tablet Take 50 mg by mouth. warfarin 2 MG tablet 2 mg + 5 mg = 7mg Sundays, and 5mg daily all other days or as directed. tadalafil 5 MG Tab Take 5 mg by mouth. No facility-administered medications prior to visit. No family history on file. has no past surgical history on file. Social History Socioeconomic History Marital status: Spouse name: Not on file Number of children: Not on file Years of education: Not on file Highest education level: Not on file Occupational History Not on file Social Needs Financial resource strain: Not on file Food insecurity: Worry: Not on file Inability: Not on file Transportation needs: Medical: Not on file Non-medical: Not on file Tobacco Use Smoking status: Former Smoker Smokeless tobacco: Never Used Tobacco comment: quit 20 years ago Substance and Sexual Activity Alcohol use: Yes Comment: 7 - 8 drinks per week. wine/martini Drug use: No Sexual activity: Not on file Lifestyle Physical activity: Days per week: Not on file Minutes per session: Not on file Stress: Not on file Relationships Social connections: Talks on phone: Not on file Gets together: Not on file Attends confucianist service: Not on file Active member of club or organization: Not on file Attends meetings of clubs or organizations: Not on file Relationship status: Not on file Intimate partner violence: Fear of current or ex partner: Not on file Emotionally abused: Not on file Physically abused: Not on file Forced sexual activity: Not on file Other Topics Concern Not on file Social History Narrative Not on file Review of System 10 systems reviewed, pertinent positives listed above Blood pressure 130/64, pulse 68, resp. rate 16, height 1.778 m (5' 10), weight 94.8 kg (209 lb), SpO2 98 %. Body mass index is 29.99 kg/m . Physical Exam General appearance - alert, well developed, well nourished,77 y.o.male appropriate affect HEENT PERRLA, EOMI, no xanthelasma or icterus Neck - supple, No JVD or bruits. Upstrokes equal bilaterally. No adenopathy or thyromegaly. Lungs - clear to auscultation, no wheezes, rales or rhonchi Heart - regular rate and regular rhythm, occasional extrasystole. Normal S1 and S2 without S3. 1/6 midsystolic murmur apex Abdomen - soft, nontender, no organomegaly Extremities -trace ankle edema, no, clubbing or cyanosis, pulses 2+ bilaterally Neurologic: cranial nerves II through XII intact Musculoskeletal - no joint deformity, tendon xanthoma Skin - normal coloration and turgor, no laxity Psych- appropriate mood Lab Results: No results found for: SODIUM, POTASSIUM, MAGNESIUM, CALCIUM, CHLORIDE, TP, BUN, CREATSERUM, ALBUMIN, BILITOTAL, AST, ALKPHOS, CO2, AGRATIO, ALT, GFR, GFRAA, GFRCOMMENT, GLUCOSE, TROP No results found for: CHOLESTEROL, TRIG, HDL, LDLCALC, BLDL, TCHHDLMANENT No results found for: PT, INR, PTT, WBC, RBC, HGB, HCT, MCV, MEANCELHGB, MEANCELHGCON, RBCDISTRIBU,PLATELET, MPV, NEUTROPHILS, LYMPHOCYTES, MONOCYTE, EOSINOPHILS, BASOPHILS, RBCCOMMENTS, DIFFTYPE, PLTCMT, HGBA1C, ESTAVGGLUCOS, TSH Problem List Items Addressed This Visit Cardiovascular Atrial fibrillation Essential hypertension Moderate mitral regurgitation - Primary Relevant Orders ECHOCARDIOGRAM Palpitations Other Chronic anticoagulation Assessment & Plan Hemodynamically and electrically stable. Uncertain if he still has paroxysmal atrial fibrillation although his heart rate appears to be well-controlled and he is on full anticoagulation. Repeat echocardiogram at next visit to follow his valvular status. No overt left or right heart failure or anginal symptoms at this time. Lipids performed in [place] under good control. Tien Head DO 11/11/2018 1:25 PM documented in this encounter Summary Purpose Family History Relationship Condition Age at Onset Recorded Date/T artis mother Coronary artery disease Unknown father Coronary artery disease Unknown Congestive heart failure Unknown brother Malignant neoplasm Unknown Myocardial infarction Unknown sister Asthma Unknown Advance Directives No Advanced Directives Records FoundNo Advanced Directives Records FoundNo Advanced Directives Records Found Chief Complaint and Reason for Visit Chief Complaint Admit Date suture removal January 16, 2025 3: 37pm Additional Source Comments Reason for Visit (unrecogniz ed section and content) Reason Comments PT Eval Specialty Diagnoses / Procedures Referred By Maria Isabel zhao Referred To Contact [facility] Diagnoses Vertigo Procedures PHYSICAL THERAPY EVALUATION HIGH COMPLEX 45 MINS THERAPEUTIC EXERCISES RE, EA 15 MIN. Tien Serrano MD [address] [place] [address] Phone: tel: fax: [facility] [address] [place] [address] Referral ID Status Reason Start Date Expiration Date Visits Requested Visits Authorized [id number] Authorized Auto-Generat ed Referral 06/08/2024 06/07/2025 99 99 Reason Comments PT Progress Note Specialty Diagnoses / Procedures Referred By Maria Isabel zhao Referred To Contact [facility] Diagnoses Lightheaded Benign paroxysmal positional vertigo of right ear Procedures CONSULT TO PHYSICAL THERAPY PHYSICAL THERAPY EVALUATION HIGH COMPLEX 45 MINS Tien Serrano MD [address] [place] [address] [facility] [place] [address] [place] [address] Referral ID Status Reason Start Date Expiration Date Visits Requested Visits Authorized [id number] Authorized Auto-Generat ed Referral 06/08/2023 06/07/2024 99 99 Reason Comments Physical Therapy Status Reason Specialty Diagnoses / Procedures Referred By Contact Referred To Contact Closed Cardiovascular Medicine Diagnoses Moderate mitral regurgitation Procedures ECHOCARDIOGRAM Tien Head, DO [address] [place] [address] [facility] [address] [place] [address] Reason Comments Follow-up One year follow up. No complaints. Reason Comments Anticoagulation Telephone Fu Home INR re sult Reason Onset Date Comments Refill Request 09/16/2021 Reason Onset Date Comments Anticoagulation Telephone Fu 09/16/2021 [facility] Result Reason Comments Results Reason Onset Date Comments Anticoagulation Telephone Fu 10/14/2021 [facility] INR Result Reason Comments Anticoagulation Telephone Fu Home INR Reason Comments Follow Up shortness of breath Reason Comments Anticoagulation Telephone Fu Reason Comments Blood Pressure Check Reason Comments Consult Check Lesion above L eft Ear Reason Comments Results Reason Comments Procedure Skin excision Reason Comments Abdominal Pain Complaints of lower abd pain since Thursday that has radiated into the LUQ. Relieved with Tylenol. Reason Comments Opened In Error Reason Comments Results, Lab Reason Onset Date Comments Refill Request 02/20/2022 Reason Comments Anticoagulation Telephone Fu INR Home Te st Result Reason Onset Date Comments Anticoagulation Telephone Fu 04/07/2022 [facility] INR Result Reason Comments Anticoagulation Telephone Fu Home INR Reason Comments 6 Month Exam Reason Onset Date Comments Anticoagulation Telephone Fu 05/22/2022 [facility] INR result Reason Onset Date Comments Anticoagulation Telephone Fu 06/05/2022 [facility] INR result Reason Onset Date Comments Anticoagulation Telephone Fu 07/24/2022 [facility] INR Reason Onset Date Comments Refill Request 08/06/2022 Reason Onset Date Comments Refill Request 08/21/2022 Reason Onset Date Comments Anticoagulation Telephone Fu 09/08/2022 [facility] INR Result Reason Comments Anticoagulation Telephone Fu Home INR ex pected Reason Onset Date Comments Anticoagulation Telephone Fu 10/22/2022 [facility] Result Reason Comments Anticoagulation Telephone Fu Home INR re sult Reason Comments Recheck 1 month follow up Reason Comments Consult Reason Comments BP Readings Reason Onset Date Comments Refill Request 12/15/2022 Reason Onset Date Comments Anticoagulation 01/06/2023 Home INR Result Reason Onset Date Comments Refill Request 01/07/2023 Reason Onset Date Comments Refill Request 02/18/2023 Reason Comments Medication Request Reason Comments Anxiety Reason Onset Date Comments Anticoagulation Telephone Fu 02/26/2023 [facility] IN[facility] Reason Onset Date Comments Anticoagulation Telephone Fu 03/12/2023 [facility] INR Reason Comments Follow Up Medication follow up , lab results Reason Onset Date Comments Anticoagulation Telephone Fu 04/16/2023 [facility] INR Specialty Diagnoses / Procedures Referred By Maria Isabel zhao Referred To Contact Diagnoses Moderate mitral regurgitation Procedures ECHOCARDIOGRAM OR ECHO HEART XTHORACIC,COMPLETE W DOPPLER Tien Head, DO [address] [place] [id number] Referral ID Status Reason Start Date Expiration Date Visits Re quested Visits Authorized [id number] Closed 10/15/2022 11/09/2023 1 1 Reason Onset Date Comments Anticoagulation Telephone Fu 05/15/2023 [facility] INR Result Reason Onset Date Comments Refill Request 07/25/2023 Reason Comments Anticoagulation Telephone Fu INR Home Re sult Reason Onset Date Comments Anticoagulation Telephone Fu 09/09/2023 INR Home Test Result Reason Onset Date Comments Refill Request 10/15/2023 Reason Comments 6 Month Exam Specialty Diagnoses / Procedures Referred By Maria Isabel zhao Referred To Contact Cardiovascular Medicine Diagnoses Atrial fibrillation, unspecified type Dyspnea on exertion Procedures ECHOCARDIOGRAM TREADMILL STRESS TEST OR ECHO TTHRC R-T 2D W/WO M-MODE REST&STRS CONT ECG OR DOP ECHOCARD PULSE WAVE W/SPECTRAL F-UP/LMTD STD OR DOP ECHOCARD COLOR FLOW VELOCITY MAPPING OR ECHO TTHRC R-T 2D W/WO M-MODE COMPLETE REST&ST Tien Head, DO [address] [place] [address] [facility] [address] [place] [id number] Referral ID Status Reason Start Date Expiration Date Visits Re quested Visits Authorized [id number] Closed 11/09/2023 12/03/2024 1 1 Reason Onset Date Comments Anticoagulation Telephone Fu 12/03/2023 [facility] INR Reason Comments Follow Up Reason Onset Date Comments Anticoagulation Telephone Fu 01/04/2024 [facility] INR Result Reason Onset Date Comments Refill Request 01/09/2024 Reason Onset Date Comments Anticoagulation Telephone Fu 01/21/2024 [facility] INR Reason Onset Date Comments Refill Request 01/28/2024 Reason Onset Date Comments Refill Request 02/02/2024 Reason Onset Date Comments Anticoagulation Telephone Fu 02/04/2024 Reason Comments Follow Up Reason Comments Spirometry Specialty Diagnoses / Procedures Referred By Contac t Referred To Contact [facility] Diagnoses SOB (shortness of breath) Lightheadedness Procedures SPIROMETRY WITH DILATOR IF OBSTRUCTED BRNCDILAT RSPSE SPMTRY PRE&POST-BRNCDILAT ADMN Tien Serrano MD [address] [place] [address] [address] [address] Referral ID Status Reason Start Date Expiration Date V isits Requested Visits Authorized [id number] Closed Auto-Generate d Referral 02/10/2024 03/11/2025 1 1 Specialty Diagnoses / Procedures Referred By Contac t Referred To Contact [facility] Diagnoses SOB (shortness of breath) Lightheadedness Procedures SIX MINUTE WALK CARDIOPULMONARY EXERCISE STRESS Tien Serrano MD [address] [place] [id number] [address] [address] Referral ID Status Reason Start Date Expiration Date V isits Requested Visits Authorized [id number] Closed Auto-Generate d Referral 02/10/2024 03/11/2025 1 1 Specialty Diagnoses / Procedures Referred By Contac t Referred To Contact [facility] Diagnoses SOB (shortness of breath) Lightheadedness Procedures LUNG VOLUMES Tien Serrano MD [facility] [place] [address] [address] Referral ID Status Reason Start Date Expiration Date V isits Requested Visits Authorized [id number] Closed Auto-Generate d Referral 02/10/2024 03/11/2025 1 1 Reason Onset Date Comments Anticoagulation Telephone Fu 02/18/2024 [facility] IN[facility] Reason Onset Date Comments Anticoagulation Telephone Fu 03/03/2024 [facility] INR Reason Comments Recheck 6 week follow up Reason Comments PT Discharge Specialty Diagnoses / Procedures Referred By Contac t Referred To Contact PHYSICAL THERAPY Diagnoses Lightheaded Benign paroxysmal positional vertigo of right ear Procedures CONSULT TO PHYSICAL THERAPY PHYSICAL THERAPY EVALUATION HIGH COMPLEX 45 MINS Tien Serrano MD [address] [place] [address] [facility] [address] [place] [address] Reason Onset Date Comments Anticoagulation Telephone Fu 03/31/2024 [facility] INR Reason Onset Date Comments Refill Request 04/01/2024 Reason Comments Anticoagulation Telephone Fu Home INR re sults Reason Comments Follow Up Reason Onset Date Comments Anticoagulation Telephone Fu 05/09/2024 [facility] INR Result Reason Onset Date Comments Refill Request 06/09/2024 Reason Onset Date Comments Refill Request 06/27/2024 Reason Comments Patient Update Notes request Reason Onset Date Comments Refill Request 08/18/2024 Reason Onset Date Comments Anticoagulation Telephone Fu 09/22/2024 [facility] INR Reason Onset Date Comments Refill Request 10/04/2024 Reason Comments Anticoagulation Reason Comments Consult Would like to see pu lm. Had testing done in [place] gotten [place]set Date Comments Anticoagulation Telephone Fu 10/20/2024 [facility] INR Reason Onset Date Comments Anticoagulation Telephone Fu 11/07/2024 [facility] INR Result Reason Onset Date Comments Refill Request 11/07/2024 Reason Comments Consult COPD Reason Onset Date Comments Refill Request 11/28/2024 Reason Comments Follow Up Cardiology changed m eds. Still feeling out of balance. Has been to PT for this already. Pulm changed his inhaler. Reason Onset Date Comments Anticoagulation Telephone Fu 12/22/2024 [facility] INR Reason Onset Date Comments Refill Request 12/30/2024 Reason Onset Date Comments Anticoagulation Telephone Fu 01/09/2025 [facility] INR Result Reason Comments Other Stitch removal - Ent ered by patient Suture Removal Suture removal left forearm placed in [place] Reason Onset Date Comments Anticoagulation Telephone Fu 01/23/2025 [facility] INR Result Reason Onset Date Comments Anticoagulation Telephone Fu 02/20/2025 [facility] INR Result Reason Onset Date Comments Refill Request 02/21/2025 Source Comments (unrecognize d section and content) In the event this informatio n is protected by the Federal Confidentiality of Alcohol and Drug Abuse Patient Records regulations: The Federal rules restrict any use of the information to criminally investigate or prosecute any alcohol or drug abuse patient.[facility] CenterIn the event this information is protected by the Federal Confidentiality of Alcohol and Drug Abuse Patient Records regulations: The Federal rules restrict any use of the information to criminally investigate or prosecute any alcohol or drug abuse patient.[facility] CenterIn the event this information is protected by the Federal Confidentiality of Alcohol and Drug Abuse Patient Records regulations: The Federal rules restrict any use of the information to criminally investigate or prosecute any alcohol or drug abuse patient.[facility] CenterIn the event this information is protected by the Federal Confidentiality of Alcohol and Drug Abuse Patient Records regulations: The Federal rules restrict any use of the information to criminally investigate or prosecute any alcohol or drug abuse patient.[facility] CenterIn the event this information is protected by the Federal Confidentiality of Alcohol and Drug Abuse Patient Records regulations: The Federal rules restrict any use of the information to criminally investigate or prosecute any alcohol or drug abuse patient.[facility] CenterIn the event this information is protected by the Federal Confidentiality of Alcohol and Drug Abuse Patient Records regulations: The Federal rules restrict any use of the information to criminally investigate or prosecute any alcohol or drug abuse patient.[facility] CenterIn the event this information is protected by the Federal Confidentiality of Alcohol and Drug Abuse Patient Records regulations: The Federal rules restrict any use of the information to criminally investigate or prosecute any alcohol or drug abuse patient.[facility] CenterIn the event this information is protected by the Federal Confidentiality of Alcohol and Drug Abuse Patient Records regulations: The Federal rules restrict any use of the information to criminally investigate or prosecute any alcohol or drug abuse patient.[facility] CenterIn the event this information is protected by the Federal Confidentiality of Alcohol and Drug Abuse Patient Records regulations: The Federal rules restrict any use of the information to criminally investigate or prosecute any alcohol or drug abuse patient.[facility] CenterIn the event this information is protected by the Federal Confidentiality of Alcohol and Drug Abuse Patient Records regulations: The Federal rules restrict any use of the information to criminally investigate or prosecute any alcohol or drug abuse patient.[facility] CenterIn the event this information is protected by the Federal Confidentiality of Alcohol and Drug Abuse Patient Records regulations: The Federal rules restrict any use of the information to criminally investigate or prosecute any alcohol or drug abuse patient.[facility] CenterIn the event this information is protected by the Federal Confidentiality of Alcohol and Drug Abuse Patient Records regulations: The Federal rules restrict any use of the information to criminally investigate or prosecute any alcohol or drug abuse patient.[facility] CenterIn the event this information is protected by the Federal Confidentiality of Alcohol and Drug Abuse Patient Records regulations: The Federal rules restrict any use of the information to criminally investigate or prosecute any alcohol or drug abuse patient.[facility] CenterIn the event this information is protected by the Federal Confidentiality of Alcohol and Drug Abuse Patient Records regulations: The Federal rules restrict any use of the information to criminally investigate or prosecute any alcohol or drug abuse patient.[facility] CenterIn the event this information is protected by the Federal Confidentiality of Alcohol and Drug Abuse Patient Records regulations: The Federal rules restrict any use of the information to criminally investigate or prosecute any alcohol or drug abuse patient.[facility] CenterIn the event this information is protected by the Federal Confidentiality of Alcohol and Drug Abuse Patient Records regulations: The Federal rules restrict any use of the information to criminally investigate or prosecute any alcohol or drug abuse patient.[facility] CenterIn the event this information is protected by the Federal Confidentiality of Alcohol and Drug Abuse Patient Records regulations: The Federal rules restrict any use of the information to criminally investigate or prosecute any alcohol or drug abuse patient.[facility] CenterIn the event this information is protected by the Federal Confidentiality of Alcohol and Drug Abuse Patient Records regulations: The Federal rules restrict any use of the information to criminally investigate or prosecute any alcohol or drug abuse patient.[facility] CenterIn the event this information is protected by the Federal Confidentiality of Alcohol and Drug Abuse Patient Records regulations: The Federal rules restrict any use of the information to criminally investigate or prosecute any alcohol or drug abuse patient.[facility] CenterIn the event this information is protected by the Federal Confidentiality of Alcohol and Drug Abuse Patient Records regulations: The Federal rules restrict any use of the information to criminally investigate or prosecute any alcohol or drug abuse patient.[facility] CenterIn the event this information is protected by the Federal Confidentiality of Alcohol and Drug Abuse Patient Records regulations: The Federal rules restrict any use of the information to criminally investigate or prosecute any alcohol or drug abuse patient.[facility] CenterIn the event this information is protected by the Federal Confidentiality of Alcohol and Drug Abuse Patient Records regulations: The Federal rules restrict any use of the information to criminally investigate or prosecute any alcohol or drug abuse patient.[facility] CenterIn the event this information is protected by the Federal Confidentiality of Alcohol and Drug Abuse Patient Records regulations: The Federal rules restrict any use of the information to criminally investigate or prosecute any alcohol or drug abuse patient.[facility] CenterIn the event this information is protected by the Federal Confidentiality of Alcohol and Drug Abuse Patient Records regulations: The Federal rules restrict any use of the information to criminally investigate or prosecute any alcohol or drug abuse patient.[facility] CenterIn the event this information is protected by the Federal Confidentiality of Alcohol and Drug Abuse Patient Records regulations: The Federal rules restrict any use of the information to criminally investigate or prosecute any alcohol or drug abuse patient.[facility] CenterIn the event this information is protected by the Federal Confidentiality of Alcohol and Drug Abuse Patient Records regulations: The Federal rules restrict any use of the information to criminally investigate or prosecute any alcohol or drug abuse patient.[facility] CenterIn the event this information is protected by the Federal Confidentiality of Alcohol and Drug Abuse Patient Records regulations: The Federal rules restrict any use of the information to criminally investigate or prosecute any alcohol or drug abuse patient.[facility] CenterIn the event this information is protected by the Federal Confidentiality of Alcohol and Drug Abuse Patient Records regulations: The Federal rules restrict any use of the information to criminally investigate or prosecute any alcohol or drug abuse patient.[facility] CenterIn the event this information is protected by the Federal Confidentiality of Alcohol and Drug Abuse Patient Records regulations: The Federal rules restrict any use of the information to criminally investigate or prosecute any alcohol or drug abuse patient.[facility] CenterIn the event this information is protected by the Federal Confidentiality of Alcohol and Drug Abuse Patient Records regulations: The Federal rules restrict any use of the information to criminally investigate or prosecute any alcohol or drug abuse patient.[facility] CenterIn the event this information is protected by the Federal Confidentiality of Alcohol and Drug Abuse Patient Records regulations: The Federal rules restrict any use of the information to criminally investigate or prosecute any alcohol or drug abuse patient.[facility] CenterIn the event this information is protected by the Federal Confidentiality of Alcohol and Drug Abuse Patient Records regulations: The Federal rules restrict any use of the information to criminally investigate or prosecute any alcohol or drug abuse patient.[facility] CenterIn the event this information is protected by the Federal Confidentiality of Alcohol and Drug Abuse Patient Records regulations: The Federal rules restrict any use of the information to criminally investigate or prosecute any alcohol or drug abuse patient.[facility] CenterIn the event this information is protected by the Federal Confidentiality of Alcohol and Drug Abuse Patient Records regulations: The Federal rules restrict any use of the information to criminally investigate or prosecute any alcohol or drug abuse patient.[facility] CenterIn the event this information is protected by the Federal Confidentiality of Alcohol and Drug Abuse Patient Records regulations: The Federal rules restrict any use of the information to criminally investigate or prosecute any alcohol or drug abuse patient.[facility] CenterIn the event this information is protected by the Federal Confidentiality of Alcohol and Drug Abuse Patient Records regulations: The Federal rules restrict any use of the information to criminally investigate or prosecute any alcohol or drug abuse patient.[facility] CenterIn the event this information is protected by the Federal Confidentiality of Alcohol and Drug Abuse Patient Records regulations: The Federal rules restrict any use of the information to criminally investigate or prosecute any alcohol or drug abuse patient.[facility] CenterIn the event this information is protected by the Federal Confidentiality of Alcohol and Drug Abuse Patient Records regulations: The Federal rules restrict any use of the information to criminally investigate or prosecute any alcohol or drug abuse patient.[facility] CenterIn the event this information is protected by the Federal Confidentiality of Alcohol and Drug Abuse Patient Records regulations: The Federal rules restrict any use of the information to criminally investigate or prosecute any alcohol or drug abuse patient.[facility] CenterIn the event this information is protected by the Federal Confidentiality of Alcohol and Drug Abuse Patient Records regulations: The Federal rules restrict any use of the information to criminally investigate or prosecute any alcohol or drug abuse patient.[facility] CenterIn the event this information is protected by the Federal Confidentiality of Alcohol and Drug Abuse Patient Records regulations: The Federal rules restrict any use of the information to criminally investigate or prosecute any alcohol or drug abuse patient.[facility] CenterIn the event this information is protected by the Federal Confidentiality of Alcohol and Drug Abuse Patient Records regulations: The Federal rules restrict any use of the information to criminally investigate or prosecute any alcohol or drug abuse patient.[facility] CenterIn the event this information is protected by the Federal Confidentiality of Alcohol and Drug Abuse Patient Records regulations: The Federal rules restrict any use of the information to criminally investigate or prosecute any alcohol or drug abuse patient.[facility] CenterIn the event this information is protected by the Federal Confidentiality of Alcohol and Drug Abuse Patient Records regulations: The Federal rules restrict any use of the information to criminally investigate or prosecute any alcohol or drug abuse patient.[facility] CenterIn the event this information is protected by the Federal Confidentiality of Alcohol and Drug Abuse Patient Records regulations: The Federal rules restrict any use of the information to criminally investigate or prosecute any alcohol or drug abuse patient.[facility] CenterIn the event this information is protected by the Federal Confidentiality of Alcohol and Drug Abuse Patient Records regulations: The Federal rules restrict any use of the information to criminally investigate or prosecute any alcohol or drug abuse patient.[facility] CenterIn the event this information is protected by the Federal Confidentiality of Alcohol and Drug Abuse Patient Records regulations: The Federal rules restrict any use of the information to criminally investigate or prosecute any alcohol or drug abuse patient.[facility] CenterIn the event this information is protected by the Federal Confidentiality of Alcohol and Drug Abuse Patient Records regulations: The Federal rules restrict any use of the information to criminally investigate or prosecute any alcohol or drug abuse patient.[facility] CenterIn the event this information is protected by the Federal Confidentiality of Alcohol and Drug Abuse Patient Records regulations: The Federal rules restrict any use of the information to criminally investigate or prosecute any alcohol or drug abuse patient.[facility] CenterIn the event this information is protected by the Federal Confidentiality of Alcohol and Drug Abuse Patient Records regulations: The Federal rules restrict any use of the information to criminally investigate or prosecute any alcohol or drug abuse patient.[facility] CenterIn the event this information is protected by the Federal Confidentiality of Alcohol and Drug Abuse Patient Records regulations: The Federal rules restrict any use of the information to criminally investigate or prosecute any alcohol or drug abuse patient.[facility] CenterIn the event this information is protected by the Federal Confidentiality of Alcohol and Drug Abuse Patient Records regulations: The Federal rules restrict any use of the information to criminally investigate or prosecute any alcohol or drug abuse patient.[facility] CenterIn the event this information is protected by the Federal Confidentiality of Alcohol and Drug Abuse Patient Records regulations: The Federal rules restrict any use of the information to criminally investigate or prosecute any alcohol or drug abuse patient.[facility] CenterIn the event this information is protected by the Federal Confidentiality of Alcohol and Drug Abuse Patient Records regulations: The Federal rules restrict any use of the information to criminally investigate or prosecute any alcohol or drug abuse patient.[facility] CenterIn the event this information is protected by the Federal Confidentiality of Alcohol and Drug Abuse Patient Records regulations: The Federal rules restrict any use of the information to criminally investigate or prosecute any alcohol or drug abuse patient.[facility] CenterIn the event this information is protected by the Federal Confidentiality of Alcohol and Drug Abuse Patient Records regulations: The Federal rules restrict any use of the information to criminally investigate or prosecute any alcohol or drug abuse patient.[facility] CenterIn the event this information is protected by the Federal Confidentiality of Alcohol and Drug Abuse Patient Records regulations: The Federal rules restrict any use of the information to criminally investigate or prosecute any alcohol or drug abuse patient.[facility] CenterIn the event this information is protected by the Federal Confidentiality of Alcohol and Drug Abuse Patient Records regulations: The Federal rules restrict any use of the information to criminally investigate or prosecute any alcohol or drug abuse patient.[facility] CenterIn the event this information is protected by the Federal Confidentiality of Alcohol and Drug Abuse Patient Records regulations: The Federal rules restrict any use of the information to criminally investigate or prosecute any alcohol or drug abuse patient.[facility] CenterIn the event this information is protected by the Federal Confidentiality of Alcohol and Drug Abuse Patient Records regulations: The Federal rules restrict any use of the information to criminally investigate or prosecute any alcohol or drug abuse patient.[facility] CenterIn the event this information is protected by the Federal Confidentiality of Alcohol and Drug Abuse Patient Records regulations: The Federal rules restrict any use of the information to criminally investigate or prosecute any alcohol or drug abuse patient.[facility] CenterIn the event this information is protected by the Federal Confidentiality of Alcohol and Drug Abuse Patient Records regulations: The Federal rules restrict any use of the information to criminally investigate or prosecute any alcohol or drug abuse patient.[facility] CenterIn the event this information is protected by the Federal Confidentiality of Alcohol and Drug Abuse Patient Records regulations: The Federal rules restrict any use of the information to criminally investigate or prosecute any alcohol or drug abuse patient.[facility] CenterIn the event this information is protected by the Federal Confidentiality of Alcohol and Drug Abuse Patient Records regulations: The Federal rules restrict any use of the information to criminally investigate or prosecute any alcohol or drug abuse patient.[facility] CenterIn the event this information is protected by the Federal Confidentiality of Alcohol and Drug Abuse Patient Records regulations: The Federal rules restrict any use of the information to criminally investigate or prosecute any alcohol or drug abuse patient.[facility] CenterIn the event this information is protected by the Federal Confidentiality of Alcohol and Drug Abuse Patient Records regulations: The Federal rules restrict any use of the information to criminally investigate or prosecute any alcohol or drug abuse patient.[facility] CenterIn the event this information is protected by the Federal Confidentiality of Alcohol and Drug Abuse Patient Records regulations: The Federal rules restrict any use of the information to criminally investigate or prosecute any alcohol or drug abuse patient.[facility] CenterIn the event this information is protected by the Federal Confidentiality of Alcohol and Drug Abuse Patient Records regulations: The Federal rules restrict any use of the information to criminally investigate or prosecute any alcohol or drug abuse patient.[facility] CenterIn the event this information is protected by the Federal Confidentiality of Alcohol and Drug Abuse Patient Records regulations: The Federal rules restrict any use of the information to criminally investigate or prosecute any alcohol or drug abuse patient.[facility] CenterIn the event this information is protected by the Federal Confidentiality of Alcohol and Drug Abuse Patient Records regulations: The Federal rules restrict any use of the information to criminally investigate or prosecute any alcohol or drug abuse patient.[facility] CenterIn the event this information is protected by the Federal Confidentiality of Alcohol and Drug Abuse Patient Records regulations: The Federal rules restrict any use of the information to criminally investigate or prosecute any alcohol or drug abuse patient.[facility] CenterIn the event this information is protected by the Federal Confidentiality of Alcohol and Drug Abuse Patient Records regulations: The Federal rules restrict any use of the information to criminally investigate or prosecute any alcohol or drug abuse patient.[facility] CenterIn the event this information is protected by the Federal Confidentiality of Alcohol and Drug Abuse Patient Records regulations: The Federal rules restrict any use of the information to criminally investigate or prosecute any alcohol or drug abuse patient.[facility] CenterIn the event this information is protected by the Federal Confidentiality of Alcohol and Drug Abuse Patient Records regulations: The Federal rules restrict any use of the information to criminally investigate or prosecute any alcohol or drug abuse patient.[facility] CenterIn the event this information is protected by the Federal Confidentiality of Alcohol and Drug Abuse Patient Records regulations: The Federal rules restrict any use of the information to criminally investigate or prosecute any alcohol or drug abuse patient.[facility] CenterIn the event this information is protected by the Federal Confidentiality of Alcohol and Drug Abuse Patient Records regulations: The Federal rules restrict any use of the information to criminally investigate or prosecute any alcohol or drug abuse patient.[facility] CenterIn the event this information is protected by the Federal Confidentiality of Alcohol and Drug Abuse Patient Records regulations: The Federal rules restrict any use of the information to criminally investigate or prosecute any alcohol or drug abuse patient.[facility] CenterIn the event this information is protected by the Federal Confidentiality of Alcohol and Drug Abuse Patient Records regulations: The Federal rules restrict any use of the information to criminally investigate or prosecute any alcohol or drug abuse patient.[facility] CenterIn the event this information is protected by the Federal Confidentiality of Alcohol and Drug Abuse Patient Records regulations: The Federal rules restrict any use of the information to criminally investigate or prosecute any alcohol or drug abuse patient.[facility] CenterIn the event this information is protected by the Federal Confidentiality of Alcohol and Drug Abuse Patient Records regulations: The Federal rules restrict any use of the information to criminally investigate or prosecute any alcohol or drug abuse patient.[facility] CenterIn the event this information is protected by the Federal Confidentiality of Alcohol and Drug Abuse Patient Records regulations: The Federal rules restrict any use of the information to criminally investigate or prosecute any alcohol or drug abuse patient.[facility] CenterIn the event this information is protected by the Federal Confidentiality of Alcohol and Drug Abuse Patient Records regulations: The Federal rules restrict any use of the information to criminally investigate or prosecute any alcohol or drug abuse patient.[facility] CenterIn the event this information is protected by the Federal Confidentiality of Alcohol and Drug Abuse Patient Records regulations: The Federal rules restrict any use of the information to criminally investigate or prosecute any alcohol or drug abuse patient.[facility] CenterIn the event this information is protected by the Federal Confidentiality of Alcohol and Drug Abuse Patient Records regulations: The Federal rules restrict any use of the information to criminally investigate or prosecute any alcohol or drug abuse patient.[facility] CenterIn the event this information is protected by the Federal Confidentiality of Alcohol and Drug Abuse Patient Records regulations: The Federal rules restrict any use of the information to criminally investigate or prosecute any alcohol or drug abuse patient.[facility] CenterIn the event this information is protected by the Federal Confidentiality of Alcohol and Drug Abuse Patient Records regulations: The Federal rules restrict any use of the information to criminally investigate or prosecute any alcohol or drug abuse patient.[facility] CenterIn the event this information is protected by the Federal Confidentiality of Alcohol and Drug Abuse Patient Records regulations: The Federal rules restrict any use of the information to criminally investigate or prosecute any alcohol or drug abuse patient.[facility] CenterIn the event this information is protected by the Federal Confidentiality of Alcohol and Drug Abuse Patient Records regulations: The Federal rules restrict any use of the information to criminally investigate or prosecute any alcohol or drug abuse patient.[facility] CenterIn the event this information is protected by the Federal Confidentiality of Alcohol and Drug Abuse Patient Records regulations: The Federal rules restrict any use of the information to criminally investigate or prosecute any alcohol or drug abuse patient.[facility] CenterIn the event this information is protected by the Federal Confidentiality of Alcohol and Drug Abuse Patient Records regulations: The Federal rules restrict any use of the information to criminally investigate or prosecute any alcohol or drug abuse patient.[facility] CenterIn the event this information is protected by the Federal Confidentiality of Alcohol and Drug Abuse Patient Records regulations: The Federal rules restrict any use of the information to criminally investigate or prosecute any alcohol or drug abuse patient.[facility] CenterIn the event this information is protected by the Federal Confidentiality of Alcohol and Drug Abuse Patient Records regulations: The Federal rules restrict any use of the information to criminally investigate or prosecute any alcohol or drug abuse patient.[facility] CenterIn the event this information is protected by the Federal Confidentiality of Alcohol and Drug Abuse Patient Records regulations: The Federal rules restrict any use of the information to criminally investigate or prosecute any alcohol or drug abuse patient.[facility] CenterIn the event this information is protected by the Federal Confidentiality of Alcohol and Drug Abuse Patient Records regulations: The Federal rules restrict any use of the information to criminally investigate or prosecute any alcohol or drug abuse patient.[facility] CenterIn the event this information is protected by the Federal Confidentiality of Alcohol and Drug Abuse Patient Records regulations: The Federal rules restrict any use of the information to criminally investigate or prosecute any alcohol or drug abuse patient.[facility] CenterIn the event this information is protected by the Federal Confidentiality of Alcohol and Drug Abuse Patient Records regulations: The Federal rules restrict any use of the information to criminally investigate or prosecute any alcohol or drug abuse patient.[facility] CenterIn the event this information is protected by the Federal Confidentiality of Alcohol and Drug Abuse Patient Records regulations: The Federal rules restrict any use of the information to criminally investigate or prosecute any alcohol or drug abuse patient.[facility] CenterIn the event this information is protected by the Federal Confidentiality of Alcohol and Drug Abuse Patient Records regulations: The Federal rules restrict any use of the information to criminally investigate or prosecute any alcohol or drug abuse patient.[facility] CenterIn the event this information is protected by the Federal Confidentiality of Alcohol and Drug Abuse Patient Records regulations: The Federal rules restrict any use of the information to criminally investigate or prosecute any alcohol or drug abuse patient.[facility] CenterIn the event this information is protected by the Federal Confidentiality of Alcohol and Drug Abuse Patient Records regulations: The Federal rules restrict any use of the information to criminally investigate or prosecute any alcohol or drug abuse patient.[facility] CenterIn the event this information is protected by the Federal Confidentiality of Alcohol and Drug Abuse Patient Records regulations: The Federal rules restrict any use of the information to criminally investigate or prosecute any alcohol or drug abuse patient.[facility] CenterIn the event this information is protected by the Federal Confidentiality of Alcohol and Drug Abuse Patient Records regulations: The Federal rules restrict any use of the information to criminally investigate or prosecute any alcohol or drug abuse patient.[facility] CenterIn the event this information is protected by the Federal Confidentiality of Alcohol and Drug Abuse Patient Records regulations: The Federal rules restrict any use of the information to criminally investigate or prosecute any alcohol or drug abuse patient.[facility] CenterIn the event this information is protected by the Federal Confidentiality of Alcohol and Drug Abuse Patient Records regulations: The Federal rules restrict any use of the information to criminally investigate or prosecute any alcohol or drug abuse patient.[facility] CenterIn the event this information is protected by the Federal Confidentiality of Alcohol and Drug Abuse Patient Records regulations: The Federal rules restrict any use of the information to criminally investigate or prosecute any alcohol or drug abuse patient.[facility] CenterIn the event this information is protected by the Federal Confidentiality of Alcohol and Drug Abuse Patient Records regulations: The Federal rules restrict any use of the information to criminally investigate or prosecute any alcohol or drug abuse patient.[facility] CenterIn the event this information is protected by the Federal Confidentiality of Alcohol and Drug Abuse Patient Records regulations: The Federal rules restrict any use of the information to criminally investigate or prosecute any alcohol or drug abuse patient.[facility] CenterIn the event this information is protected by the Federal Confidentiality of Alcohol and Drug Abuse Patient Records regulations: The Federal rules restrict any use of the information to criminally investigate or prosecute any alcohol or drug abuse patient.[facility] CenterIn the event this information is protected by the Federal Confidentiality of Alcohol and Drug Abuse Patient Records regulations: The Federal rules restrict any use of the information to criminally investigate or prosecute any alcohol or drug abuse patient.[facility] CenterIn the event this information is protected by the Federal Confidentiality of Alcohol and Drug Abuse Patient Records regulations: The Federal rules restrict any use of the information to criminally investigate or prosecute any alcohol or drug abuse patient.[facility] CenterIn the event this information is protected by the Federal Confidentiality of Alcohol and Drug Abuse Patient Records regulations: The Federal rules restrict any use of the information to criminally investigate or prosecute any alcohol or drug abuse patient.[facility] CenterIn the event this information is protected by the Federal Confidentiality of Alcohol and Drug Abuse Patient Records regulations: The Federal rules restrict any use of the information to criminally investigate or prosecute any alcohol or drug abuse patient.[facility] CenterIn the event this information is protected by the Federal Confidentiality of Alcohol and Drug Abuse Patient Records regulations: The Federal rules restrict any use of the information to criminally investigate or prosecute any alcohol or drug abuse patient.[facility] CenterIn the event this information is protected by the Federal Confidentiality of Alcohol and Drug Abuse Patient Records regulations: The Federal rules restrict any use of the information to criminally investigate or prosecute any alcohol or drug abuse patient.[facility] CenterIn the event this information is protected by the Federal Confidentiality of Alcohol and Drug Abuse Patient Records regulations: The Federal rules restrict any use of the information to criminally investigate or prosecute any alcohol or drug abuse patient.[facility] CenterIn the event this information is protected by the Federal Confidentiality of Alcohol and Drug Abuse Patient Records regulations: The Federal rules restrict any use of the information to criminally investigate or prosecute any alcohol or drug abuse patient.[facility] CenterIn the event this information is protected by the Federal Confidentiality of Alcohol and Drug Abuse Patient Records regulations: The Federal rules restrict any use of the information to criminally investigate or prosecute any alcohol or drug abuse patient.[facility] CenterIn the event this information is protected by the Federal Confidentiality of Alcohol and Drug Abuse Patient Records regulations: The Federal rules restrict any use of the information to criminally investigate or prosecute any alcohol or drug abuse patient.[facility] CenterIn the event this information is protected by the Federal Confidentiality of Alcohol and Drug Abuse Patient Records regulations: The Federal rules restrict any use of the information to criminally investigate or prosecute any alcohol or drug abuse patient.[facility] CenterIn the event this information is protected by the Federal Confidentiality of Alcohol and Drug Abuse Patient Records regulations: The Federal rules restrict any use of the information to criminally investigate or prosecute any alcohol or drug abuse patient.[facility] CenterIn the event this information is protected by the Federal Confidentiality of Alcohol and Drug Abuse Patient Records regulations: The Federal rules restrict any use of the information to criminally investigate or prosecute any alcohol or drug abuse patient.[facility] CenterIn the event this information is protected by the Federal Confidentiality of Alcohol and Drug Abuse Patient Records regulations: The Federal rules restrict any use of the information to criminally investigate or prosecute any alcohol or drug abuse patient.[facility] CenterIn the event this information is protected by the Federal Confidentiality of Alcohol and Drug Abuse Patient Records regulations: The Federal rules restrict any use of the information to criminally investigate or prosecute any alcohol or drug abuse patient.[facility] CenterIn the event this information is protected by the Federal Confidentiality of Alcohol and Drug Abuse Patient Records regulations: The Federal rules restrict any use of the information to criminally investigate or prosecute any alcohol or drug abuse patient.[facility] CenterIn the event this information is protected by the Federal Confidentiality of Alcohol and Drug Abuse Patient Records regulations: The Federal rules restrict any use of the information to criminally investigate or prosecute any alcohol or drug abuse patient.[facility] CenterIn the event this information is protected by the Federal Confidentiality of Alcohol and Drug Abuse Patient Records regulations: The Federal rules restrict any use of the information to criminally investigate or prosecute any alcohol or drug abuse patient.[facility] CenterIn the event this information is protected by the Federal Confidentiality of Alcohol and Drug Abuse Patient Records regulations: The Federal rules restrict any use of the information to criminally investigate or prosecute any alcohol or drug abuse patient.[facility] CenterIn the event this information is protected by the Federal Confidentiality of Alcohol and Drug Abuse Patient Records regulations: The Federal rules restrict any use of the information to criminally investigate or prosecute any alcohol or drug abuse patient.[facility] CenterIn the event this information is protected by the Federal Confidentiality of Alcohol and Drug Abuse Patient Records regulations: The Federal rules restrict any use of the information to criminally investigate or prosecute any alcohol or drug abuse patient.[facility] CenterIn the event this information is protected by the Federal Confidentiality of Alcohol and Drug Abuse Patient Records regulations: The Federal rules restrict any use of the information to criminally investigate or prosecute any alcohol or drug abuse patient.[facility] CenterIn the event this information is protected by the Federal Confidentiality of Alcohol and Drug Abuse Patient Records regulations: The Federal rules restrict any use of the information to criminally investigate or prosecute any alcohol or drug abuse patient.[facility] CenterIn the event this information is protected by the Federal Confidentiality of Alcohol and Drug Abuse Patient Records regulations: The Federal rules restrict any use of the information to criminally investigate or prosecute any alcohol or drug abuse patient.[facility] CenterIn the event this information is protected by the Federal Confidentiality of Alcohol and Drug Abuse Patient Records regulations: The Federal rules restrict any use of the information to criminally investigate or prosecute any alcohol or drug abuse patient.[facility] CenterIn the event this information is protected by the Federal Confidentiality of Alcohol and Drug Abuse Patient Records regulations: The Federal rules restrict any use of the information to criminally investigate or prosecute any alcohol or drug abuse patient.[facility] CenterIn the event this information is protected by the Federal Confidentiality of Alcohol and Drug Abuse Patient Records regulations: The Federal rules restrict any use of the information to criminally investigate or prosecute any alcohol or drug abuse patient.[facility] CenterIn the event this information is protected by the Federal Confidentiality of Alcohol and Drug Abuse Patient Records regulations: The Federal rules restrict any use of the information to criminally investigate or prosecute any alcohol or drug abuse patient.[facility] CenterIn the event this information is protected by the Federal Confidentiality of Alcohol and Drug Abuse Patient Records regulations: The Federal rules restrict any use of the information to criminally investigate or prosecute any alcohol or drug abuse patient.[facility] CenterIn the event this information is protected by the Federal Confidentiality of Alcohol and Drug Abuse Patient Records regulations: The Federal rules restrict any use of the information to criminally investigate or prosecute any alcohol or drug abuse patient.[facility] CenterIn the event this information is protected by the Federal Confidentiality of Alcohol and Drug Abuse Patient Records regulations: The Federal rules restrict any use of the information to criminally investigate or prosecute any alcohol or drug abuse patient.[facility] CenterIn the event this information is protected by the Federal Confidentiality of Alcohol and Drug Abuse Patient Records regulations: The Federal rules restrict any use of the information to criminally investigate or prosecute any alcohol or drug abuse patient.[facility] CenterIn the event this information is protected by the Federal Confidentiality of Alcohol and Drug Abuse Patient Records regulations: The Federal rules restrict any use of the information to criminally investigate or prosecute any alcohol or drug abuse patient.[facility] CenterIn the event this information is protected by the Federal Confidentiality of Alcohol and Drug Abuse Patient Records regulations: The Federal rules restrict any use of the information to criminally investigate or prosecute any alcohol or drug abuse patient.[facility] CenterIn the event this information is protected by the Federal Confidentiality of Alcohol and Drug Abuse Patient Records regulations: The Federal rules restrict any use of the information to criminally investigate or prosecute any alcohol or drug abuse patient.[facility] CenterIn the event this information is protected by the Federal Confidentiality of Alcohol and Drug Abuse Patient Records regulations: The Federal rules restrict any use of the information to criminally investigate or prosecute any alcohol or drug abuse patient.[facility] CenterIn the event this information is protected by the Federal Confidentiality of Alcohol and Drug Abuse Patient Records regulations: The Federal rules restrict any use of the information to criminally investigate or prosecute any alcohol or drug abuse patient.[facility] CenterIn the event this information is protected by the Federal Confidentiality of Alcohol and Drug Abuse Patient Records regulations: The Federal rules restrict any use of the information to criminally investigate or prosecute any alcohol or drug abuse patient.[facility] CenterIn the event this information is protected by the [facility] Confidentiality of Alcohol and Drug Abuse Patient Records regulations: The Federal rules restrict any use of the information to criminally investigate or prosecute any alcohol or drug abuse patient.[facility] CenterIn the event this information is protected by the Federal Confidentiality of Alcohol and Drug Abuse Patient Records regulations: The Federal rules restrict any use of the information to criminally investigate or prosecute any alcohol or drug abuse patient.[facility] Care Teams (unrecognized sec tion and content) [employer] Wirer Relationship Specialty Start Date End Date Tien Serrano MD [address] [place], [place] [address] PCP - General Family Practice 03/14/21 13, Pharmacist [address] [place] [address] Pharmacist Pharmacy 12/29/19 [employer] Wire[employer] Relationship Specialty Start Date End Date Tien Serrano MD [address] [place], [place] [address] PCP - General Family Practice 03/14/21 13, Pharmacist [id number] [place] [address] Pharmacist Pharmacy 12/29/19 [employer] Wirer Relationship Specialty Start Date End Date Tien Serrano MD [address] [facility] [place] [address] PCP - General Family Practice 03/14/21 13, Pharmacist [address] [place] [address] Pharmacist Pharmacy 12/29/19 [employer] Mach[employer] Wirer Relationship Specialty Start Date End Date Tien Serrano MD [address] [facility] [place] [address] PCP - General Family Practice 03/14/21 13, Pharmacist [id number] [place] [address] Pharmacist Pharmacy 12/29/19 [employer] Machines Wirer Relationship Specialty Start Date End Date Tien Serrano MD [address] [place] [address] PCP - General Family Practice 03/14/21 13, Pharmacist [address] [place] [address] Pharmacist Pharmacy 12/29/19 [employer] Mach[employer] Wirer Relationship Specialty Start Date End Date Tien Serrano MD [address] [place] [address] PCP - General Family Practice 03/14/21, Pharmacist [address] [place] [address] Pharmacist Pharmacy 12/29/19 [employer] Wirer Relationship Specialty Start Date End Date Tien Serrano MD [address] [place] [address] PCP - General Family Practice 03/14/21 13, Pharmacist [address] [place] [address] Pharmacist Pharmacy 12/29/19 [employer] Mach[employer] Wirer Relationship Specialty Start Date End Date Tien Serrano MD [address] [place] [address] PCP - General Family Practice 03/14/21 13, Pharmacist [address] [place] [address] Pharmacist Pharmacy 12/29/19 Office Mach[employer] Wirer Relationship Specialty Start Date End Date Tien Serrano MD [address] [facility] [place] [address] PCP - General Family Practice 03/14/21 13, Pharmacist [address] [place] [address] Pharmacist Pharmacy 12/29/19 Office Machines Wirer Relationship Specialty Start Date End Date Tien Serrano MD [address] [facility] [place] [address] PCP - General Family Practice 03/14/21, Pharmacist [address] [place] [address] Pharmacist Pharmacy 12/29/19 Office Machines Wirer Relationship Specialty Start Date End Date Tien Serrano MD [address] [facility] [place] [address] PCP - General Family Practice 03/14/21, Pharmacist [id number] [place] [address] Pharmacist Pharmacy 12/29/19 Office Machines Wirer Relationship Specialty Start Date End Date Tien Serrano MD [address] [place] [address] PCP - General Family Practice 03/14/21, Pharmacist [address] [place] [address] Pharmacist Pharmacy 12/29/19 Office Machines Wirer Relationship Specialty Start Date End Date Tien Serrano MD [address] [facility] [place] [address] PCP - General Family Medicine 03/14/21 13, Pharmacist [address] [place] [address] Pharmacist Pharmacy 12/29/19 Office Machines Wirer Relationship Specialty Start Date End Date Tien Serrano MD [address] [facility] [place] [address] PCP - General Family Medicine 03/14/21, Pharmacist [address] [place] [address] Pharmacist Pharmacy 12/29/19 Office Machines Wirer Relationship Specialty Start Date End Date Tien Serrano MD [address] [place] [address] PCP - General Family Medicine 03/14/21, Pharmacist [address] [place] [address] Pharmacist Pharmacy 12/29/19 [employer] Machines Wirer Relationship Specialty Start Date End Date Tien Serrano MD [address] [place] [address] PCP - General Family Medicine 03/14/21, Pharmacist [id number] [place] [address] Pharmacist Pharmacy 12/29/19 [employer] Machines Wirer Relationship Specialty Start Date End Date Tien Serrano MD [address] [place] [address] PCP - General Family Medicine 03/14/21, Pharmacist [id number] [place] [address] Pharmacist Pharmacy 12/29/19 Office Machines Wirer Relationship Specialty Start Date End Date Tien Serrano MD [address] [place] [address] PCP - General Family Medicine 03/14/21, Pharmacist [address] [place] [address] Pharmacist Pharmacy 12/29/19 Office Machines Wirer Relationship Specialty Start Date End Date Tien Serrano MD [address] [place] [address] PCP - General Family Medicine 03/14/21 13, Pharmacist [address] [place] [address] Pharmacist Pharmacy 12/29/19 Office Machines Wirer Relationship Specialty Start Date End Date Tien Serrano MD [address] [facility] [place] [address] PCP - General Family Medicine 03/14/21 13, Pharmacist [address] [place] [address] Pharmacist Pharmacy 12/29/19 Office Machines Wirer Relationship Specialty Start Date End Date Tien Serrano MD [address] [facility] [place] [address] PCP - General Family Medicine 03/14/21 13, Pharmacist [address] [place] [address] Pharmacist Pharmacy 12/29/19 Office Machines Wirer Relationship Specialty Start Date End Date Tien Serrano MD [address] [place] [address] PCP - General Family Medicine 03/14/21 13, Pharmacist [address] [place] [address] Pharmacist Pharmacy 12/29/19 Office Machines Wirer Relationship Specialty Start Date End Date Tien Serrano MD [address] [place] [address] PCP - General Family Medicine 03/14/21 13, Pharmacist [address] [place] [address] Pharmacist Pharmacy 12/29/19 Office Machines Wirer Relationship Specialty Start Date End Date Tien Serrano MD [address] [place] [address] PCP - General Family Medicine 03/14/21 13, Pharmacist [address] [place] [address] Pharmacist Pharmacy 12/29/19 Office Machines Wirer Relationship Specialty Start Date End Date Tien Serrano MD [address] [place] [address] PCP - General Family Medicine 03/14/21 13, Pharmacist [address] [place] [address] Pharmacist Pharmacy 12/29/19 Office Machines Wirer Relationship Specialty Start Date End Date Tien Serrano MD [address] [place] [address] PCP - General Family Medicine 03/14/21 13, Pharmacist [address] [place] [address] Pharmacist Pharmacy 12/29/19 Office Machines Wirer Relationship Specialty Start Date End Date Tien Serrano MD [address] [place] [address] PCP - General Family Medicine 03/14/21, Pharmacist [id number] [place] [address] Pharmacist Pharmacy 12/29/19 Office Machines Wirer Relationship Specialty Start Date End Date Tien Serrano MD [address] [place] [address] PCP - General Family Medicine 03/14/21, Pharmacist [address] [place] [address] Pharmacist Pharmacy 12/29/19 Office Machines Wirer Relationship Specialty Start Date End Date Tien Serrano MD [address] [place] [address] PCP - General Family Medicine 03/14/21 13, Pharmacist [address] [place] [address] Pharmacist Pharmacy 12/29/19 Office Machines Wirer Relationship Specialty Start Date End Date Tien Serrano MD [address] [place] [address] PCP - General Family Medicine 03/14/21 13, Pharmacist [address] [place] [address] Pharmacist Pharmacy 12/29/19 Office Machines Wirer Relationship Specialty Start Date End Date Tien Serrano MD [address] [facility] [place] [address] PCP - General Family Medicine 03/14/21 13, Pharmacist [address] [place] [address] Pharmacist Pharmacy 12/29/19 Office Machines Wirer Relationship Specialty Start Date End Date Tien Serrano MD [address] [place] [address] PCP - General Family Medicine 03/14/21, Pharmacist [address] [place] [address] Pharmacist Pharmacy 12/29/19 Office Machines Wirer Relationship Specialty Start Date End Date Tien Serrano MD [address] [facility] [place] [address] PCP - General Family Medicine 03/14/21, Pharmacist [address] [place] [address] Pharmacist Pharmacy 12/29/19 Office Machines Wirer Relationship Specialty Start Date End Date Tien Serrano MD [address] [place] [address] PCP - General Family Medicine 03/14/21 13, Pharmacist [address] [place] [address] Pharmacist Pharmacy 12/29/19 Office Machines Wirer Relationship Specialty Start Date End Date Tien Serrano MD [address] [facility] Mail [address] [place] [address] PCP - General Family Medicine 10/17/21 Office Machines Wirer Relationship Specialty Start Date End Date Tien Serrano MD [address] [facility] [place] [address] PCP - General Family Medicine 03/14/21, Pharmacist [address] [place] [address] Pharmacist Pharmacy 12/29/19 Office Machines Wirer Relationship Specialty Start Date End Date Tien Serrano MD [address] [facility] [place] [address] PCP - General Family Medicine 03/14/21, Pharmacist [address] [place] [address] Pharmacist Pharmacy 12/29/19 Office Machines Wirer Relationship Specialty Start Date End Date Tien Serrano MD [address] [facility] [place] [address] PCP - General Family Medicine 03/14/21, Pharmacist [address] [place] [address] Pharmacist Pharmacy 12/29/19 Office Machines Wirer Relationship Specialty Start Date End Date Tien Serrano MD [address] [facility] [place] [address] PCP - General Family Medicine 03/14/21, Pharmacist [address] [place] [address] Pharmacist Pharmacy 12/29/19 Office Machines Wirer Relationship Specialty Start Date End Date Tien Serrano MD [address] [facility] [place] [address] PCP - General Family Medicine 03/14/21 13, Pharmacist [address] [place] [address] Pharmacist Pharmacy 12/29/19 Office Machines Wirer Relationship Specialty Start Date End Date Tien Serrano MD [address] [facility] Mail Code [address] [place] [address] PCP - General Family Medicine 10/17/21 Office Machines Wirer Relationship Specialty Start Date End Date Tien Serrano MD [address] [place] [address] PCP - General Family Medicine 03/14/21 13, Pharmacist [address] [place] [address] Pharmacist Pharmacy 12/29/19 Office Machines Wirer Relationship Specialty Start Date End Date Tien Serrano MD [address] [place] [address] PCP - General Family Medicine 03/14/21 13, Pharmacist [address] [place] [address] Pharmacist Pharmacy 12/29/19 Office Machines Wirer Relationship Specialty Start Date End Date Tien Serrano MD [address] [place] [address] PCP - General Family Medicine 03/14/21 13, Pharmacist [address] [place] [address] Pharmacist Pharmacy 12/29/19 Office Machines Wirer Relationship Specialty Start Date End Date Tien Serrano MD [address] [place] [address] PCP - General Family Medicine 03/14/21 13, Pharmacist [address] [place] [address] Pharmacist Pharmacy 12/29/19 Office Machines Wirer Relationship Specialty Start Date End Date Tien Serrano MD [address] [place] [address] PCP - General Family Medicine 03/14/21 13, Pharmacist [address] [place] [address] Pharmacist Pharmacy 12/29/19 Office Machines Wirer Relationship Specialty Start Date End Date Tien Serrano MD [address] [place] [address] PCP - General Family Medicine 03/14/21 13, Pharmacist [address] [place] [address] Pharmacist Pharmacy 12/29/19 Office Machines Wirer Relationship Specialty Start Date End Date Tien Serrano MD [address] [place] [address] PCP - General Family Medicine 03/14/21 13, Pharmacist [address] [place] [address] Pharmacist Pharmacy 12/29/19 Office Machines Wirer Relationship Specialty Start Date End Date Tien Serrano MD [address] [place] [address] PCP - General Family Medicine 03/14/21 13, Pharmacist [address] [place] [address] Pharmacist Pharmacy 12/29/19 Office Machines Wirer Relationship Specialty Start Date End Date Tien Serrano MD [address] [place] [address] PCP - General Family Medicine 03/14/21 13, Pharmacist [address] [place] [address] Pharmacist Pharmacy 12/29/19 Office Machines Wirer Relationship Specialty Start Date End Date Tien Serrano MD [address] [place] [address] PCP - General Family Medicine 03/14/21 13, Pharmacist [address] [place] [address] Pharmacist Pharmacy 12/29/19 Office Machines Wirer Relationship Specialty Start Date End Date Tien Serrano MD [address] [place] [address] PCP - General Family Medicine 03/14/21 13, Pharmacist [address] [place] [address] Pharmacist Pharmacy 12/29/19 Office Machines Wirer Relationship Specialty Start Date End Date Tien Serrano MD [address] [place] [address] PCP - General Family Medicine 03/14/21, Pharmacist [address] [place] [address] Pharmacist Pharmacy 12/29/19 Office Machines Wirer Relationship Specialty Start Date End Date Tien Serrano MD [address] [place] [address] PCP - General Family Medicine 03/14/21 13, Pharmacist [id number] [place] [address] Pharmacist Pharmacy 12/29/19 Office Machines Wirer Relationship Specialty Start Date End Date Tien Serrano MD [address] [place] [address] PCP - General Family Medicine 03/14/21, Pharmacist [id number] [place] [address] Pharmacist Pharmacy 12/29/19 Office Machines Wirer Relationship Specialty Start Date End Date Tien Serrano MD [address] [place] [address] PCP - General Family Medicine 03/14/21 13, Pharmacist [address] [place] [address] Pharmacist Pharmacy 12/29/19 Katy Galdamez APRN.OVERHEAD GARAGE DOOR HANGER [address] [place] [address] [facility] Family [facility] 05/16/24 Alejandrina Quigley APRN.OVERHEAD GARAGE DOOR HANGER [address] [facility] [place] [address] [facility] 05/16/24 Office Machines Wirer Relationship Specialty Start Date End Date Tien Serrano MD [address] [place] [address] PCP - General Family Medicine 03/14/21 13, Pharmacist [id number] [place] [address] Pharmacist Pharmacy 12/29/19 Katy Galdamez APRN.OVERHEAD GARAGE DOOR HANGER [address] [place] [address] [facility] 05/16/24 Alejandrina Quigley APRN.OVERHEAD GARAGE DOOR HANGER [address] [place] [address] [facility] 05/16/24 Office Machines Wirer Relationship Specialty Start Date End Date Tien Serrano MD [address] [place] [address] PCP - General Family Medicine 03/14/21 13, Pharmacist [phone] [place] [address] Pharmacist Pharmacy 12/29/19 Katy Galdamez APRN.OVERHEAD GARAGE DOOR HANGER [address] [place] [address] Cookie Padder Family [facility] 05/16/24 Alejandrina Quigley APRN.OVERHEAD GARAGE DOOR HANGER [address] [place] [address] [facility] 05/16/24 Office Machines Wirer Relationship Specialty Start Date End Date Tien Serrano MD [address] [facility] [place] [address] PCP - General Family Medicine 03/14/21 13, Pharmacist [address] [place] [address] Pharmacist Pharmacy 12/29/19 Katy Galdamez ANNEALING OPERATOR.OVERHEAD GARAGE DOOR HANGER [address] [place] [address] [facility] Family [facility] 05/16/24 Alejandrina Quigley ANNEALING OPERATOR.OVERHEAD GARAGE DOOR HANGER [address] [facility] [place] [address] Cookie [facility] Family [facility] 05/16/24 Office Machines Wirer Relationship Specialty Start Date End Date Tien Serrano MD [address] [facility] [place] [address] PCP - General Family Medicine 03/14/21 13, Pharmacist [address] [place] [address] Pharmacist Pharmacy 12/29/19 Katy Galdamez ANNEALING OPERATOR.OVERHEAD GARAGE DOOR HANGER [address] [place] [address] Cookie Padder Family Medicine 05/16/24 Alejandrina Quigley ANNEALING OPERATOR.OVERHEAD GARAGE DOOR HANGER [address] [facility] [place] [address] Cookie P[facility] Family Medicine 05/16/24 Office Machines Wirer Relationship Specialty Start Date End Date Tien Serrano MD [address] [facility] [place] [address] PCP - General Family Medicine 03/14/21 13, Pharmacist [id number] [place] [address] Pharmacist Pharmacy 12/29/19 Katy Galdamez APRN.OVERHEAD GARAGE DOOR HANGER [address] [place] [address] Cookie [facility] Family [facility] 05/16/24 Alejandrina Quigley ANNEALING OPERATOR.OVERHEAD GARAGE DOOR HANGER [address] [facility] [place] [address] Cookie Padder Family Medicine 05/16/24 Office Machines Wirer Relationship Specialty Start Date End Date Tien Serrano MD [address] [place] [address] PCP - General Family Medicine 03/14/21 13, Pharmacist [address] [place] [address] Pharmacist Pharmacy 12/29/19 Katy Galdamez ANNEALING OPERATOR.OVERHEAD GARAGE DOOR HANGER [address] [place] [address] [facility] 05/16/24 Alejandrina Quigley ANNEALING OPERATOR.OVERHEAD GARAGE DOOR HANGER [address] [place] [address] [facility] 05/16/24 Office Machines Wirer Relationship Specialty Start Date End Date Tien Serrano MD [address] [place] [address] PCP - General Family Medicine 03/14/21 13, Pharmacist [address] [place] [address] Pharmacist Pharmacy 12/29/19 Katy Galdamez APRN.OVERHEAD GARAGE DOOR HANGER [address] [place] [address] Cookie [facility] Family [facility] 05/16/24 Alejandrina Quigley APRN.OVERHEAD GARAGE DOOR HANGER [address] [facility] [place] [address] Cookie Padder Family Medicine 05/16/24 Office Machines Wirer Relationship Specialty Start Date End Date Tien Serrano MD [address] [facility] [place] [address] PCP - General Family Medicine 03/14/21 13, Pharmacist [address] [place] [address] Pharmacist Pharmacy 12/29/19 Katy Galdamez APRN.OVERHEAD GARAGE DOOR HANGER [address] [place] [address] Cookie Padder Family Medicine 05/16/24 Alejandrina Quigley ANNEALING OPERATOR.OVERHEAD GARAGE DOOR HANGER [address] [facility] [place] [address] [facility] 05/16/24 Office Machines Wirer Relationship Specialty Start Date End Date Tien Serrano MD [address] [facility] [place] [address] PCP - General Family Medicine 03/14/21 13, Pharmacist [address] [place] [address] Pharmacist Pharmacy 12/29/19 Katy Galdamez ANNEALING OPERATOR.OVERHEAD GARAGE DOOR HANGER [address] [place] [address] Cookie [facility] Family [facility] 05/16/24 Alejandrina Quigley APRN.OVERHEAD GARAGE DOOR HANGER [address] [facility] [place] [address] Cookie Padder Family [facility] 05/16/24 Office Machines Wirer Relationship Specialty Start Date End Date Tien Serrano MD [address] [place] [address] PCP - General Family Medicine 03/14/21 13, Pharmacist [address] [place] [address] Pharmacist Pharmacy 12/29/19 Katy Galdamez APRN.OVERHEAD GARAGE DOOR HANGER [address] [place] [address] Cookie Padder Family Medicine 05/16/24 Alejandrina Quigley APRN.OVERHEAD GARAGE DOOR HANGER [address] [place] [address] Cookie Padder Family Medicine 05/16/24 Office Machines Wirer Relationship Specialty Start Date End Date Tien Serrano MD PCP - General Family Medicine 10/17/21 Office Machines Wirer Relationship Specialty Start Date End Date Tien Serrano MD [address] [place] [address] PCP - General Family Medicine 03/14/21 13, Pharmacist [address] [place] [address] Pharmacist Pharmacy 12/29/19 Katy Galdamez APRN.OVERHEAD GARAGE DOOR HANGER [address] [place] [address] Cookie P[facility] Family [facility] 05/16/24 Alejandrina Quigley APRN.OVERHEAD GARAGE DOOR HANGER [address] [place] [address] Cookie P[facility] Family [facility] 05/16/24 Office Machines Wirer Relationship Specialty Start Date End Date Tien Serrano MD [address] [place] [address] PCP - General Family Medicine 03/14/21 13, Pharmacist [address] [place] [address] Pharmacist Pharmacy 12/29/19 Katy Galdamez, ANNEALING OPERATOR.OVERHEAD GARAGE DOOR HANGER [address] [place] [address] Cookie P[facility] Family [facility] 05/16/24 Alejandrina Quigley ANNEALING OPERATOR.OVERHEAD GARAGE DOOR HANGER [address] [place] [address] Cookie [facility] Family [facility] 05/16/24 Office Machines Wirer Relationship Specialty Start Date End Date Tien Serrano MD [address] [place] [address] PCP - General Family Medicine 03/14/21 13, Pharmacist [address] [place] [address] Pharmacist Pharmacy 12/29/19 Katy Galdamez, ANNEALING OPERATOR.OVERHEAD GARAGE DOOR HANGER [address] [place] [address] Cookie P[facility] Family [facility] 05/16/24 Alejandrina Quigley ANNEALING OPERATOR.OVERHEAD GARAGE DOOR HANGER [address] [place] [address] Cookie Padder Family [facility] 05/16/24 Office Machines Wirer Relationship Specialty Start Date End Date Tien Serrano MD [address] [place] [address] PCP - General Family Medicine 03/14/21 13, Pharmacist [address] [place] [address] Pharmacist Pharmacy 12/29/19 Katy Galdamez APRN.OVERHEAD GARAGE DOOR HANGER [address] [place] [address] [facility] 05/16/24 Alejandrina Quigley APRN.OVERHEAD GARAGE DOOR HANGER [address] [facility] [place], [place] [address] [phone] [facility] 05/16/24 Office Machines Wirer Relationship Specialty Start Date End Date Tien Serrano MD [address] [place], [place] [address] PCP - General Family Medicine 03/14/21 13, Pharmacist [address] [place] [address] Pharmacist Pharmacy 12/29/19 Katy Galdamez APRN.OVERHEAD GARAGE DOOR HANGER [address] [place] [address] [facility] 05/16/24 Alejandrina Quigley APRN.OVERHEAD GARAGE DOOR HANGER [address] [facility] [place] [address] [facility] 05/16/24 Team Status: Active Member Role/Relationship Status Dates Dr. Geoffrey Garcia III, MD Family Provider Active Team Status: Inactive Member Role/Relationship Status Dates Iglesia DOE, PA Attending Provider Active Start: January 16, 2025 End: January 16, 2025 Office Machines Wirer Relationship Specialty Start Date End Date Tien Serrano MD [address] [facility] [place], [place] [address] PCP - General Family Medicine 03/14/21 13, Pharmacist [address] [place] [address] Pharmacist Pharmacy 12/29/19 Katy Galdamez APRN.OVERHEAD GARAGE DOOR HANGER [address] [place] [address] [facility] 05/16/24 Alejandrina Quigley APRN.OVERHEAD GARAGE DOOR HANGER [address] [place] [address] [facility] 05/16/24 (unrecognized sect ion and content) No Status Records FoundNo Status Records FoundNo Status Records Found INFORMATION SOURCE (unrecogn ized section and content) DATE CREATED AUTHOR 01/07/2025 [facility] DATE CREATED AUTHOR AUTHOR'S ORGANIZ ATION 01/17/2025 [facility] DATE CREATED AUTHOR AUTHOR'S ORGANIZ ATION 02/21/2025 [facility] Goals (unrecognized section and content) Goals may be documented in a n alternate section FOR RECORDS PERTAINING TO PATIENTS WHO ARE OR HAVE BEEN ENROLLED IN A CHEMICAL DEPENDENCY/SUBSTANCEABUSE PROGRAM, SOME INFORMATION MAY BE OMITTED. This clinical summary was aggregated from multiple sources. Caution should be exercised in using it in the provision of clinical care. This summary normalizes information from multiple sources, and as a consequence, information in this document may materially change the coding, format and clinical context of patient data. In addition, data may be omitted in some cases. CLINICAL DECISIONS SHOULD BE BASED ON THE PRIMARY CLINICAL RECORDS. [facility]. provides no warranty or guarantee of the accuracy or completeness of information in this document.
--- OUTSIDE RECORDS SUMMARY | 2025-03-02 23:58 | XMS RPT_ITS | CCD ---
Author Organization [facility] Care Team Providers Care Uptwist Spinner Name Role Phone Radha Geoffrey Primary Care Provider 13, Pharmacist Unavailable Tien Serrano MD Primary Care Provider 13, Pharmacist Unavailable Tien Serrano MD Primary Care Provider Tien Serrano MD Primary Care Provider [phone] 13, Pharmacist Unavailable Tien Serrano MD Primary Care Provider Tien Serrano MD Primary Care Provider Tien Serrano MD Primary Care Provider Tien Serrano MD Primary Care Provider Haagen CLINICAL UNIT EDUCATOR.SHIREEN Katy Unavailable Suppan CLINICAL UNIT EDUCATOR.SHIREEN, Alejandrina A Unavailable Suppan CLINICAL UNIT EDUCATOR.SHIREEN, Alejandrina A Unavailable Suppan CLINICAL UNIT EDUCATOR.SHIREEN, Alejandrina A Unavailable [phone] Tien Serrano MD Primary Care Provider TIEN HEAD Attending Unavailable TIEN SERRANO Primary Care Unavailable TIEN HEAD Referring Unavailable TIEN HEAD Attending Unavailable TINE SERRANO Primary Care Unavailable TIEN HEAD Referring Unavailable TIEN HEAD Referring Unavailable TIEN SERRANO Primary Care Unavailable TIEN HEAD Attending Unavailable TIEN SERRANO Referring Unavailable TIEN SERRANO Primary Care Unavailable TIEN HEAD Attending Unavailable TIEN HEAD Attending Unavailable MAGGIE, TIEN Primary Care Unavailable TIEN HEAD Referring Unavailable Iglesia Templeton Attending Provider [phone] Iglesia Templeton Attending Unavailable MAGGIE, TIEN Colmenares [...] Drug Class(es) Dates Sig (Normalized) Sig (Original) [id number] 200 actuat albuterol 0.09 mg/actuat metered dose [...] on above: Take 1 capsule by mo [facility] daily at bedtime. Problems Active Problems Problem [...] Long-term current use of drug therapy; Translations: [longterm 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] Onset: 10-28-2016 11-09-2017 Unclassified (1 source) Drug therapy finding; Translations: [terminal make up operator 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] Onset: [...] sources) Long-term current use of anticoagulant; Translations: [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] Onset: 04-11-2015 11-09-2017 Episodic Other aftercare (20 sources) Long-term current use of drug therapy; Translations: [Other longterm (current) drug therapy] Onset: 10-28-2016 10-28-2016 Episodic Other aftercare (1 source) longterm (current) use of anticoagulants; Translations: [longterm (current) use of anticoagulants] Onset: 08-04-2019 Episodic Other aftercare (1 source) Other remote computer terminal operator (current) drug therapy; Translations: [terminal make up operator 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] Onset: [...] Test Name Value Interpretation Reference Range Facility [facility] 02-20-2025 [facility] Telephone ([facility]) -------- WILMER MORLEY ([id number]) 1940 M Date Time Provider Department 02/20/25 NAMITA GEE During your visit today, we recorded the following information about you: Namita Gee [facility] 02/20/2025 4:27 PM Signed [facility] Ambulatory Pharmacy Anticoagulation Clinic Anticoagulation Episode Summary Anticoagulation Care Providers Provider Role Specialty Phone number Tien Serrano MD Referring Family Medicine [phone] Wilmer Morley is a 84 year old [...] Mon; 5 mg all other days Sent Aquaporin message Advised patient to continue current weekly dose as noted above Next INR check due on 03/06/2025 Namita Gee [facility] Clinical Pharmacist, Pharmacy Anticoagulation Clinic Pharmacy Anticoagulation Clinic Pager: [phone]. Allergies As of Date: 02/20/2025 (No Known [...] Paroxysmal atrial fibrillation (HCC) [I48.0] 03/19/2015 04/11/2015 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 [Z79.*04/11/2015 Episodic lightheadedness [R42] 04/11/2015 01/21/2018 Bilateral edema of lower extremity [R60.0] 04/11/2015 01/10/2016 Venous (peripheral) insufficiency [I87.2] 04/11/2015 History of DVT (deep vein thrombosis) [Z86.718] 02/14/2016 Asymptomatic LV dysfunction [I51.9] 10/28/2016 longterm current use of antiarrhythmic medical*10/28/2016 Change in bowel movement [R19.8] 01/21/2018 03/14/2021 Stage 3a chronic kidney disease (HCC) [N18.31] 04/08/2018 Hyperglycemia [R73.9] 03/14/2021 Hypertensive kidney disease with stage 3a chron*11/06/2021 10/31/2022 Hx of skin cancer, basal cell [Z85.828] 11/08/2021 Vertigo [R42] 02/02/2024 Benign paroxysmal positional vertigo of right e*02/02/2024 Chronic obstructive pulmonary disease (HCC) [J4*02/12/2024 (more content not included)... Normal [facility] Chris 02-07-2025 CNPN Telephone ([facility] -------- WILMER MORLEY ([id number]) 1940 M Date Time Provider Department 02/07/25 ARABELLA LOPEZ During your visit today, we recorded the following information about you: Arabella Lopez [facility] 02/07/2025 8:40 AM Signed [facility] Ambulatory Pharmacy Anticoagulation Clinic Anticoagulation Episode Summary Anticoagulation Care Providers Provider Role Specialty Phone number Tien Serrano MD Referring Family Medicine [phone] Wilmer Morley is a 84 year old [...] Mon; 5 mg all other days Sent Aquaporin message Advised patient to continue current weekly dose as noted above Next home INR check scheduled on 02/21/2025 Patient advised to call the PAC with any medication changes, bleeding/bruising concerns, recent changes in vitamin k consumption, if any procedures are coming up, if they have been ill or in the hospital, and if they have missed any doses of warfarin. Arabella Lopez [facility] Clinical Pharmacist, Pharmacy Anticoagulation Clinic Pharmacy Anticoagulation Clinic Pager: [phone]. Allergies As of Date: 02/07/2025 (No Known [...] Paroxysmal atrial fibrillation (HCC) [I48.0] 03/19/2015 04/11/2015 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 [Z79.*04/11/2015 Episodic lightheadedness [R42] 04/11/2015 01/21/2018 Bilateral edema of lower extremity [R60.0] 04/11/2015 01/10/2016 Venous (peripheral) insufficiency [I87.2] 04/11/2015 History of DVT (deep vein thrombosis) [Z86.718] 02/14/2016 Asymptomatic LV dysfunction [I51.9] 10/28/2016 longterm current use of antiarrhythmic medical*10/28/2016 Change in bowel movement [R19.8] 01/21/2018 03/14/2021 Stage 3a chronic kidney disease (HCC) [N18.31] 04/08/2018 Hyperglycemia [ (more content not included)... Normal [facility] Basic metabolic 2000 panelOr dered By: Seema Nix on 01-26-2025 Anion gap [Moles/Vol] 12 mmol/L 8 - 15 mmol/L [facility] Calcium [Mass/Vol] 9.3 mg/dL 8.5 - 10. 2 mg/dL [facility] Chloride [Moles/Vol] 104 mmol/L 98 - 10 7 mmol/L [facility] CO2 [Moles/Vol] 21 mmol/L Low 22 - 30 mmol/L [facility] Creatinine [Mass/Vol] 1.45 mg/dL High 0.73 - 1.22 mg/dL [facility] GFR/1.73 sq M.predicted among non-blacks MDRD (S/P/Bld) [Vol rate/Area] 48 mL/min/{1.73_m2} Low - PINF [facility] Comment on above: Estimated Glomerular Filtration Rate [...] [Mass/Vol] 90 mg/dL 74 - 99 mg/dL [facility] Comment on above: The [place] Diabete s Association (ADA) provides guidance for [...] Standards of Medical Care in Diabetes 2016, [place] Diabetes Association. Diabetes Care. 2016.39(Suppl 1). Interpretation and review of laboratory results Abnormal [facility] Potassium [Moles/Vol] 4.5 mmol/L 3.7 - 5.1 mmol/L [facility] Sodium [Moles/Vol] 137 mmol/L 136 - 144 mmol/L [facility] Urea nitrogen [Mass/Vol] 31 mg/dL High 9 - 24 mg/dL [facility] Basic metabolic 2000 panelon 01-26-2025 Anion gap [Moles/Vol] 12 mmol/L Normal 8-15 [facility] Comment on above: Order Comment: Speci men Type: BLOOD SPECIMENOrdering Facility: [facility] Address: [address] [place] [address] Performed By: #### 2 4321-2 ####[facility] [id number] [place] [address] [place] Calcium [Mass/Vol] 9.3 mg/dL Normal 8.5-10.2 [facility] Comment on above: Order Comment: Speci men Type: BLOOD SPECIMENOrdering Facility: [facility] Address: [address] [place] [address] Performed By: #### 2 4321-2 ####[facility] MILLWDARELLLIA [id number] [place] [address] [place] Chloride [Moles/Vol] 104 mmol/L Normal 98-107 [facility] Comment on above: Order Comment: Speci men Type: BLOOD SPECIMENOrdering Facility: [facility] Address: [address] [place] [address] Performed By: #### 2 4321-2 ####[facility] EMERGENCYDARELLLIA [id number] [place] [address] [place] CO2 [Moles/Vol] 21 mmol/L Low 22-30 [facility] Comment on above: Order Comment: Speci men Type: BLOOD SPECIMENOrdering Facility: [facility] Address: [address] [place] [address] Performed By: #### 2 4321-2 ####[facility] [id number] [place] [address] [place] Creatinine [Mass/Vol] 1.45 mg/dL High 0.73-1.22 [facility] Comment on above: Order Comment: Speci men Type: BLOOD SPECIMENOrdering Facility: [facility] Address: [address] [place] [address] Performed By: #### 2 4321-2 ####[facility] EMER[facility]ENCYNCL[facility] [id number] [place] [address] [place] eGFRcr SerPlBld CKD-EPI 2020 48 mL/min/1.73m??? Low >=60 [facility] Comment on above: Order Comment: Martha murguia Type: BLOOD SPECIMENOrdering Facility: [facility] Address: [address] [place] [address] Result Comment: Mary Jo mated Glomerular Filtration [...] actual GFR. Performed By: #### 2 4321-2 ####[facility] [id number] [place] [address] [place] Glucose [Mass/Vol] 90 mg/dL Normal 74-99 [facility] Comment on above: Order Comment: Martha murguia Type: BLOOD SPECIMENOrdering Facility: [facility] Address: [address] [place] [address] Result Comment: The [place] Diabetes Association (ADA) provides guidance for cutoff [...] Standards of Medical Care in Diabetes 2016, [place] Diabetes Association. Diabetes Care. 2016.39(Suppl 1). Performed By: #### 2 4321-2 ####[facility] [id number] [place] [address] [place] Potassium [Moles/Vol] 4.5 mmol/L Normal 3.7-5.1 [facility] Comment on above: Order Comment: Martha murguia Type: BLOOD SPECIMENOrdering Facility: [facility] Address: [address] [place] [id number] Performed By: #### 2 4321-2 ####[facility] CLAUWNCLIA [id number] [place] [address] [place] Sodium [Moles/Vol] 137 mmol/L Normal 136-144 [facility] Comment on above: Order Comment: Speci men Type: BLOOD SPECIMENOrdering Facility: [facility] Address: [facility] [place] [address] Performed By: #### 2 4321-2 ####[facility] SHARIHERMITAGENCLIA [id number] [place] [address] [place] Urea nitrogen [Mass/Vol] 31 mg/dL High 9-24 [facility] Comment on above: Order Comment: Speci men Type: BLOOD SPECIMENOrdering Facility: [facility] Address: [address] [place] [address] Performed By: #### 2 4321-2 ####[facility] [id number] [address] OF [place] CNPEufemia [facility]-23-2025 [facility] WILMER MORLEY ([id number]) 1940 M Date Time Provider Department 01/23/25 NAMITA GEE During your visit today, we recorded the following information about you: Namita Gee RPh 01/23/2025 1:35 PM Signed [facility] Ambulatory Pharmacy Anticoagulation Clinic Anticoagulation Episode Summary Anticoagulation Care Providers Provider Role Specialty Phone number Tien Serrano MD Referring Family Medicine [phone] Wilmer Morley is a 84 year old [...] Mon; 5 mg all other days Sent Aquaporin message Advised patient to continue current weekly dose as noted above Next INR check due on 02/13/2025 Namita Gee [facility] Clinical Pharmacist, Pharmacy Anticoagulation Clinic Pharmacy Anticoagulation Clinic Pager: [phone]. Allergies As of Date: 01/23/2025 (No Known [...] Paroxysmal atrial fibrillation (HCC) [I48.0] 03/19/2015 04/11/2015 longterm (current) use of anticoagulants [Z79.*04/11/2015 Episodic lightheadedness [R42] 04/11/2015 01/21/2018 Bilateral edema of lower extremity [R60.0] 04/11/2015 01/10/2016 Venous (peripheral) insufficiency [I87.2] 04/11/2015 History of DVT (deep vein thrombosis) [Z86.718] 02/14/2016 Asymptomatic LV dysfunction [I51.9] 10/28/2016 terminal make up operator current use of antiarrhythmic medical*10/28/2016 Change in [...] Encounter Status:Closed by NAMITA GEE on [facility]/23/25 [facility] WILMER MORLEY ([id number]) 1940 M Date Time Provider Department 01/19/25 TIEN SERRANO During your visit today, we [...] 0 CONSULT TO SLEEP MEDICINE - ADULT [[id number]] Order #: [id number]: 1 FUTURE Prescriptions as of 02/03/2025 - [...] Paroxysmal atrial fibrillation (HCC) [I48.0] 03/19/2015 04/11/2015 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 [Z79.*04/11/2015 Episodic lightheadedness [R42] 04/11/2015 01/21/2018 Bilateral edema of lower extremity [R60.0] 04/11/2015 01/10/2016 Venous (peripheral) insufficiency [I87.2] 04/11/2015 History of DVT (deep vein thrombosis) [Z86.718] 02/14/2016 Asymptomatic LV dysfunction [I51.9] 10/28/2016 terminal make up operator current use of antiarrhythmic medical*10/28/2016 Change in [...] water w (more content not included)... Normal [facility] CNTHERAPYon 01-17-2025 CNTHERAPY OT/PT/Speech Visit (PTWS) -------- WILMER MORLEY ([id number]) 1940 M Date Time Provider Department 01/17/25 9:45 AM MICHELLE GOMEZ PTWS Date Time Provider Department Center 01/17/2025 9:45 AM [id number] GOMEZ PTMAURY Adames Reason for Visit: PT [...] 5 mg by mouth once daily. [facility] (DALIA[facility] -------- WILMER MORLEY ([id number]) 1940 M Date Time Provider Department 01/16/25 2:15 PM BLAYNE DAVIS During your visit today, we recorded the following information about you: Blayne Davis APRN.SR. OPERATIONS MANAGER 01/16/2025 2:42 PM Signed Patient triaged at [facility]. Here today with suture removal, surgical procedure removing skin cancer. I advised patient to have sutures removed via precast concrete ironworker. Appears to be a complex surgical removal. Allergies As of Date: 01/16/2025 (No Known Allergies) Date Reviewed: 01/16/2025 Reviewed by: Yoana Daily LPN - Fully Assessed Reason for Visit: Other [0] Cmt: Stitch removal - Entered by patient Suture Removal [105] Cmt: Suture removal left forearm placed in [place] Primary Visit Diagnosis:Visit for suture removal [Z48.02] [...] Paroxysmal atrial fibrillation (HCC) [I48.0] 03/19/2015 04/11/2015 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 [Z79.*04/11/2015 Episodic lightheadedness [R42] 04/11/2015 01/21/2018 Bilateral edema of lower extremity [R60.0] 04/11/2015 01/10/2016 Venous (peripheral) insufficiency [I87.2] 04/11/2015 History of DVT (deep vein thrombosis) [Z86.718] 02/14/2016 Asymptomatic LV dysfunction [I51.9] 10/28/2016 longterm current use of antiarrhythmic medical*10/28/2016 Change in [...] Encounter Status:Closed by BLAYNE DAVIS on 01/16/25 [facility] Urgent Care Visit Reporton 0 01-16-2025 Urgent Care Visit Report [facility] [address], [address] [place] [address] OFFICE VISIT Date of Service: 01/16/25 MR#: [id number] Acct: [id number] Name: WILMER MORLEY Rep #: [id number] : 1940 Provider: BROOK Cabrera Age/Sex: 84/M Location: [facility] Status: Signed Intake Vital Signs 08/24/20 11:42 [...] year?: No Nurse's Note: Patient goes to [place] half the year. 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 Patient just need the sutures taken out. [facility] Medical History (Updated 01/16/25 @ 15:40 by [...] cooperative Coding Level of Care Code Attention [employer] Librarian Diagnoses S/P Mohs surgery for basal cell carcinoma Z98.890; Z85.828 Comment 45396, [address]5119 Assessment and Plan Assessment and Plan (1) [...] the above. This note was generated with Ubitricityation software. It may contain incorrect words, spelling, and punctuation that were not noted in checking the note before signing. Clinical Quality Measures Falls Risk Screening/Assistive Devices Have you fallen in the past year?: No 01/16/25 1607 Date Iglseia Perdue Signature: D (more content not included)... Normal [facility] POLYSOMNOGRAM (PSG)/HOME SLE EP APNEA TEST (HSAT)on 01-11-2025 POLYSOMNOGRAM (PSG)/HOME SLEEP APNEA TEST (HSAT) [facility] at [address], [address] [address] ; Home Sleep Apnea Test (HSAT) Study Report Name: WILMER MORLEY Date of Study: 01/11/2025 [facility]#: [id number] Age: 84 (: 1940) ESS: 08/29 Neck [...] unattended Type III, minimum of 4 parameters (37506) Procedure: This study was performed using a Type III ambulatory PSG device and was unattended. The patient was instructed on proper use of the device by a registered cytotechnologist. The monitored parameters included heart rate, oxygen [...] PANKAJ DIEGO MD (01/18/2025 5:31:56 PM) Normal [facility] 01-09-2025 CNPN Telephone (PHAMTE) -------- WILMER MORLEY ([id number]) 1940 M Date Time Provider Department 01/09/25 NAMITA GEE During your visit today, we recorded the following information about you: Namita Gee RPh 01/09/2025 1:53 PM Signed [facility] Ambulatory Pharmacy Anticoagulation Clinic Anticoagulation Episode Summary Anticoagulation Care Providers Provider Role Specialty Phone number Tien Serrano MD Referring Family Medicine [phone] Wilmer Maxwelley is a 84 year old [...] Mon; 5 mg all other days Sent Aquaporin message Advised patient to continue current weekly dose as noted above Next INR check due on 01/23/2025 Namita Gee [facility] Clinical Pharmacist, Pharmacy Anticoagulation Clinic Pharmacy Anticoagulation Clinic Pager: [phone]. Allergies As of Date: 01/09/2025 (No Known [...] Paroxysmal atrial fibrillation (HCC) [I48.0] 03/19/2015 04/11/2015 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 [Z79.*04/11/2015 Episodic lightheadedness [R42] 04/11/2015 01/21/2018 Bilateral edema of lower extremity [R60.0] 04/11/2015 01/10/2016 Venous (peripheral) insufficiency [I87.2] 04/11/2015 History of DVT (deep vein thrombosis) [Z86.718] 02/14/2016 Asymptomatic LV dysfunction [I51.9] 10/28/2016 terminal make up operator current use of antiarrhythmic medical*10/28/2016 Change in [...] Status:Closed by NAMITA GEE on 01/09/25 Normal [facility] CNPNon 12-22-2024 CNPN Telephone (PHAMTE) -------- WILMER MORLEY ([id number]) 1940 M Date Time Provider Department 12/22/24 JINNY SHAH During your visit today, we recorded the following information about you: Jinny Shah [facility] 12/22/2024 8:13 AM Signed [facility] Ambulatory Pharmacy Anticoagulation Clinic Anticoagulation Episode Summary Anticoagulation Care Providers Provider Role Specialty Phone number Tien Serrano MD Referring Family Medicine [phone] Wilmer Johnsonaffey is a 83 year old [...] ALLERGIES No Known Allergies 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 History of dvt (deep vein thrombosis) Anticoagulation Episode Summary Current INR goal: 2.0-3.0 Assessment: INR result of 3.0 is therapeutic Plan: Current Warfarin Dosing As of 12/22/2024 Full warfarin instructions: 7.5 mg every Mon; 5 mg all other days Sent Aquaporin message Advised patient to continue current weekly dose as noted above Next home INR check scheduled on 01/04/2025 Patient advised to call the PAC with any medication changes, bleeding/bruising concerns, recent changes in vitamin k consumption, if any procedures are coming up, if they have been ill or in the hospital, and if they have missed any doses of warfarin. Jinny Shah [facility] Clinical Pharmacist, Pharmacy Anticoagulation Clinic Pharmacy Anticoagulation Clinic Pager: [phone]. Arabella Lopez [facility] 01/05/2025 11:16 AM Signed Patient [...] an injectable anticoagulant - No Arabella Lopez [facility] Allergies As of Date: 12/22/2024 (No Known Allergies) Date Reviewed: 11/14/2024 Reviewed by: Lia Griffin MD - Fully Assessed Reason for Visit: Anticoagulation Telephone Fu [148] Cmt: Home INR Primary Visit Diagnosis: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 [Z79.01] Other Visit [...] [I07.1] 02/02/20 (more content not included)... Normal [facility] Basic metabolic 2000 panelOr dered By: Laquita Sainz on 12-15-2024 Anion gap [Moles/Vol] 14 mmol/L 8 - 15 mmol/L [facility] Calcium [Mass/Vol] 9.4 mg/dL 8.5 - 10. 2 mg/dL [facility] Chloride [Moles/Vol] 103 mmol/L 98 - 10 7 mmol/L [facility] CO2 [Moles/Vol] 21 mmol/L Low 22 - 30 mmol/L [facility] Creatinine [Mass/Vol] 1.65 mg/dL High 0.73 - 1.22 mg/dL [facility] GFR/1.73 sq M.predicted among non-blacks MDRD (S/P/Bld) [Vol rate/Area] 41 mL/min/{1.73_m2} Low - PINF [facility] Comment on above: Estimated Glomerular Filtration Rate [...] [Mass/Vol] 92 mg/dL 74 - 99 mg/dL [facility] Comment on above: The [place] Diabete s Association (ADA) provides guidance for [...] Standards of Medical Care in Diabetes 2016, [place] Diabetes Association. Diabetes Care. 2016.39(Suppl 1). Interpretation and review of laboratory results Abnormal [facility] Potassium [Moles/Vol] 4.2 mmol/L 3.7 - 5.1 mmol/L [facility] Sodium [Moles/Vol] 138 mmol/L 136 - 144 mmol/L [facility] Urea nitrogen [Mass/Vol] 40 mg/dL High 9 - 24 mg/dL [facility] Basic metabolic 2000 panelon 12-15-2024 Anion gap [Moles/Vol] 14 mmol/L Normal 8-15 [facility] Comment on above: Order Comment: Speci men Type: BLOOD SPECIMENOrdering Facility: [facility] Address: [address] [place] [address] Performed By: #### 2 4321-2 ####[facility] [id number] [place] [address] [place] Calcium [Mass/Vol] 9.4 mg/dL Normal 8.5-10.2 [facility] Comment on above: Order Comment: Speci men Type: BLOOD SPECIMENOrdering Facility: [facility] Address: [address] [place] [address] Performed By: #### 2 4321-2 ####[facility] [id number] [place] [address] [place] Chloride [Moles/Vol] 103 mmol/L Normal 98-107 [facility] Comment on above: Order Comment: Speci men Type: BLOOD SPECIMENOrdering Facility: [facility] Address: [address] [place] [address] Performed By: #### 2 4321-2 ####[facility]ENCYNCL[facility] [id number] [place] [address] [place] CO2 [Moles/Vol] 21 mmol/L Low 22-30 [facility] Comment on above: Order Comment: Speci men Type: BLOOD SPECIMENOrdering Facility: [facility] Address: [address] [place] [address] Performed By: #### 2 4321-2 ####[facility]ENCYNCLI [id number] [place] [address] [place] Creatinine [Mass/Vol] 1.65 mg/dL High 0.73-1.22 [facility] Comment on above: Order Comment: Speci men Type: BLOOD SPECIMENOrdering Facility: [facility] Address: [address] [place] [address] Performed By: #### 2 4321-2 ####[facility]YN[facility] [id number] [address] [place] Creatinine and Glomerular filtration rate.predicted panel (S/P/Bld) 41 mL/min/1.73m??? Low >=60 [facility] Comment on above: Order Comment: Martha murguia Type: BLOOD SPECIMENOrdering Facility: [facility] Address: [address] [place] [address] Result Comment: Mary Jo mated Glomerular Filtration [...] actual GFR. Performed By: #### 2 4321-2 ####[facility] [id number] [place] [address] [place] Glucose [Mass/Vol] 92 mg/dL Normal 74-99 [facility] Comment on above: Order Comment: Martha murguia Type: BLOOD SPECIMENOrdering Facility: [facility] Address: [address] [place] [address] Result Comment: The [place] Diabetes Association (ADA) provides guidance for cutoff [...] Standards of Medical Care in Diabetes 2016, [place] Diabetes Association. Diabetes Care. 2016.39(Suppl 1). Performed By: #### 2 4321-2 ####[facility]ITALWDARELLLIA [id number] [place] [address] [place] Potassium [Moles/Vol] 4.2 mmol/L Normal 3.7-5.1 [facility] Comment on above: Order Comment: Martha murguia Type: BLOOD SPECIMENOrdering Facility: [facility] Address: [address] [place] [address] Performed By: #### 2 4321-2 ####[facility]OSPITALFay [id number] [place] [address] [place] Sodium [Moles/Vol] 138 mmol/L Normal 136-144 [facility] Comment on above: Order Comment: Martha murguia Type: BLOOD SPECIMENOrdering Facility: [facility] Address: [address] [place] [address] Performed By: #### 2 4321-2 ####[facility]ENTERLIFay [id number] [place] [address] [place] Urea nitrogen [Mass/Vol] 40 mg/dL High 9-24 [facility] Comment on above: Order Comment: Martha murguia Type: BLOOD SPECIMENOrdering Facility: [facility] Address: [address] [place] [address] Performed By: #### 2 4321-2 ####[facility] CENTERLIA [id number] [place] [address] [place] Basic metabolic 2000 panelon 12-07-2024 Anion gap [Moles/Vol] 13 mmol/L Normal 8-15 [facility] Comment on above: Order Comment: Speci men Type: BLOOD SPECIMENOrdering Facility: [facility] Address: [address] [place] [address] Performed By: #### 2 432-2, ####[facility] LABCLIA [id number] [place] [id number] [place] Calcium [Mass/Vol] 9.0 mg/dL Normal 8.5-10.2 [facility] Comment on above: Order Comment: Speci men Type: BLOOD SPECIMENOrdering Facility: [facility] Address: [address] [place] [address] Performed By: #### 2 4320-2, ####[facility] LABCLIA [id number] [place] [address] [place] Chloride [Moles/Vol] 104 mmol/L Normal 98-107 [facility] Comment on above: Order Comment: Speci men Type: BLOOD SPECIMENOrdering Facility: [facility] Address: [address] [place] [address] Performed By: #### 2 2, ####[facility] LABCLIA [id number] [place] [id number] [place] CO2 [Moles/Vol] 25 mmol/L Normal 22-30 [facility] Comment on above: Order Comment: Speci men Type: BLOOD SPECIMENOrdering Facility: [facility] Address: [address] [place], [place] [address] Performed By: #### 2 1-2, ####[facility] LABCLIA [id number] [place] [id number] [place] Creatinine [Mass/Vol] 1.85 mg/dL High 0.73-1.22 [facility] Comment on above: Order Comment: Speci men Type: BLOOD SPECIMENOrdering Facility: [facility] Address: [address] [place] [address] Performed By: #### 2 4321-2, ####[facility] LABIA [id number] [place] [address] [place] Creatinine and Glomerular filtration rate.predicted panel (S/P/Bld) 36 mL/min/1.73m??? Low >=60 [facility] Comment on above: Order Comment: Martha murguia Type: BLOOD SPECIMENOrdering Facility: [facility] Address: [address] [place] [address] Result Comment: Mary Jo mated Glomerular Filtration [...] actual GFR. Performed By: #### 2 4321-2, ####[facility] LABIA [id number] [place] [address] [place] Glucose [Mass/Vol] 153 mg/dL High 74-99 [facility] Comment on above: Order Comment: Martha murguia Type: BLOOD SPECIMENOrdering Facility: [facility] Address: [address] [place] [address] Result Comment: The [place] Diabetes Association (ADA) provides guidance for cutoff [...] Standards of Medical Care in Diabetes 2016, [place] Diabetes Association. Diabetes Care. 2016.39(Suppl 1). Performed By: #### 2 432-2, ####[facility] LABIA [id number] [address] [place] [address] [place] Potassium [Moles/Vol] 3.9 mmol/L Normal 3.7-5.1 [facility] Comment on above: Order Comment: Speci men Type: BLOOD SPECIMENOrdering Facility: [facility] Address: [address] [place] [address] Performed By: #### 2 4321-2, ####[facility] LABIA [id number] [address] [address] [place] Sodium [Moles/Vol] 142 mmol/L Normal 136-144 [facility] Comment on above: Order Comment: Speci men Type: BLOOD SPECIMENOrdering Facility: [facility] Address: [address] [place] [address] Performed By: #### 2 4321-2, ####[facility] LABIA [id number] [address] [address] [place] Urea nitrogen [Mass/Vol] 46 mg/dL High 9-24 [facility] Comment on above: Order Comment: Speci men Type: BLOOD SPECIMENOrdering Facility: [facility] Address: [address] [place] [address] Performed By: #### 2 4321-2, ####[facility] LABIA [id number] [address] [address] [place] CNOVon 12-07-2024 CNOV Office Visit (FAMPWS ) -------- WILMER MORLEY ([id number]) 1940 Date Time Provider Department 12/07/24 9:00 AM TIEN SERRANOWS During your visit today, we recorded the following information about you: Pulse Blood pressure Weight 49/minute 118/58 93.9 kg Tien Serrano MD 12/07/2024 9:31 AM Signed - Take atenolol exactly 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 - Continue [...] Internal h (more content not included)... Normal [facility] CNPNon 12-07-2024 CNPN Telephone (PHAMTE) -------- WILMER MORLEY ([id number]) 1940 M Date Time Provider Department 12/07/24 GHAZAL BAILEY During your visit today, we recorded the following information about you: Ghazal Bailey RPh 12/07/2024 5:08 PM Signed [facility] Ambulatory Pharmacy Anticoagulation Clinic Anticoagulation Episode Summary Anticoagulation Care Providers Provider Role Specialty Phone number Tien Serrano MD Referring Family Medicine [phone] Wilmer Maxwelley is a 83 year old [...] ALLERGIES No Known Allergies 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 Ghazal Bailey [facility] Clinical Pharmacist, Pharmacy Anticoagulation Clinic Pharmacy Anticoagulation Clinic Pager: [phone]. 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 Normal [facility] Magnesium SerPl-mCncon 12-07 Magnesium [Mass/Vol] 1.7 mg/dL Normal 1.7-2.3 [facility] Comment on above: Order Comment: Speci men Type: BLOOD SPECIMENOrdering Facility: [facility] Address: [address] [place] [address] Performed By: #### 2 4321-2, 84734-9 ####[facility] LABCLIA [id number] [address] OF [facility] CNPNon 11-22-2024 CNPN Telephone (PHAMTE) -------- WILMER MORLEY ([id number]) 1940 M Date Time Provider Department 11/22/24 ARABELLA LOPEZ During your visit today, we recorded the following information about you: Arabella Lopez [facility] 11/22/2024 8:38 AM Signed [facility] Ambulatory Pharmacy Anticoagulation Clinic Anticoagulation Episode Summary Anticoagulation Care Providers Provider Role Specialty Phone number Tien Serrano MD Referring Family Medicine [phone] Wilmer Johnsonaffey is a 83 year old [...] Mon; 5 mg all other days Sent Aquaporin message Advised patient to continue current weekly [...] Pharmacy Anticoagulation Clinic Pharmacy Anticoagulation Clinic Pager: [phone]. Arabella Lopez RPh 12/06/2024 11:21 AM Signed [...] Paroxysmal atrial fibrillation (HCC) [I48.0] 03/19/2015 04/11/2015 longterm (current) use of anticoagulants [Z79.*04/11/2015 Episodic lightheadedness [R42] 04/11/2015 01/21/2018 Bilateral edema of lower extremity [R60.0] 04/11/2015 01/10/2016 Venous (peripheral) insufficiency [I87.2] 04/11/2015 History of DVT (deep vein thrombosis) [Z86.718] 02/14/2016 Asymptomatic LV dysfunction [I (more content not included)... Normal [facility] CNOVon 11-14-2024 CNOV Office Visit (PULMWS ) -------- WILMER MORLEY ([id number]) 1940 M Date Time Provider Department 11/14/24 8:45 AM LIA GRIFFIN PULMWS During your visit today, we recorded the following information about you: Pulse Respiration Blood pressure Weight 81/minute 17/minute 136/74 92.3 kg Lia Griffin MD 11/14/2024 10:27 AM Signed . Respiratory [place] Note Patient name: Wilmer Morley PCP: Tien [...] k/uL 1.39 Monocytes % % 9.3 Abs Screven <0.87 k/uL 0.62 Eosinophils % % 4.4 [...] aortic r (more content not included)... Normal [facility] Chris 11-08-2024 [facility] WILMER MORLEY ([id number]) 1940 Date Time Provider Department 11/08/24 TIEN SERRANO [facility] During your visit today, we recorded the following information about you: Tien Serrano MD 11/08/2024 8:34 AM Signed His labs are stable. His bnp is up a little higher. Verify with him but I think he is seeing his boat camp operator, Dr Frank in [place] this week? If he is, lets fax [...] pound. Printed lab results and faxed to [phone] as requested. Tien Serrano MD 11/08/2024 2:28 [...] Paroxysmal atrial fibrillation (HCC) [I48.0] 03/19/2015 04/11/2015 longterm (current) use of anticoagulants [Z79.*04/11/2015 Episodic lightheadedness [R42] 04/11/2015 01/21/2018 Bilateral edema of lower extremity [R60.0] 04/11/2015 01/10/2016 Venous (peripheral) insufficiency [I87.2] 04/11/2015 History of DVT (deep vein thrombosis) [Z86.718] 02/14/2016 Asymptomatic LV dysfunction [I51.9] 10/28/2016 terminal make up operator current use of antiarrhythmic medical*10/28/2016 Change in bowel movement [R19.8] 01/21/2018 03/14/2021 Stage 3a chronic kidney disease (HCC) [N18.31] 04/08/2018 Hyperglycemia [R73.9] 03/14/2021 Hypertensive kidney disease with stage 3a chron*11/06/2021 10/31/2022 Hx of skin cancer, basal cell [Z85.828] 11/08/2021 Lightheaded [R42] 02/02/2024 Benign paroxysmal positional vertigo of right e*02/02/2024 Chronic obstructive pulmonary disease (HCC) [J4*02/12/2024 Encounter Status:Closed by STEPHANY STEIN on 11/08/24 Normal [facility] Basic metabolic 2000 panelon 11-07-2024 Anion gap [Moles/Vol] 13 mmol/L Normal 8-15 [facility] Comment on above: Order Comment: Speci men Type: BLOOD SPECIMENOrdering Facility: [facility] Address: [address] [place] [address] Performed By: #### 1 9123-9, 96553-2 ####[facility] MILLWNCLIA [id number] [place] [address] [place] Calcium [Mass/Vol] 9.4 mg/dL Normal 8.5-10.2 [facility] Comment on above: Order Comment: Speci men Type: BLOOD SPECIMENOrdering Facility: [facility] Address: [address] [place] [address] Performed By: #### 1 9123-9, 27528-6 ####[facility] MILLWNCLIA [id number] [place] [address] [place] Chloride [Moles/Vol] 103 mmol/L Normal 98-107 [facility] Comment on above: Order Comment: Speci men Type: BLOOD SPECIMENOrdering Facility: [facility] Address: [address] [place] [address] Performed By: #### 1 9123-9, 27777-7 ####[facility] SEAN MILLTOWNCLIA [id number] [place] [address] [place] CO2 [Moles/Vol] 22 mmol/L Normal 22-30 [facility] Comment on above: Order Comment: Speci men Type: BLOOD SPECIMENOrdering Facility: [facility] Address: [address] [place] [address] Performed By: #### 1 9123-9, 14220-5 ####[facility] SEAN MILLTOWNCLIA [id number] [place] [address] [place] Creatinine [Mass/Vol] 1.31 mg/dL High 0.73-1.22 [facility] Comment on above: Order Comment: Martha murguia Type: BLOOD SPECIMENOrdering Facility: [facility] Address: [address] [place] [address] Performed By: #### 1 9123-9, 50878-8 ####[facility] [id number] [place] [address] [place] Creatinine and Glomerular filtration rate.predicted panel (S/P/Bld) 54 mL/min/1.73m??? Low >=60 [facility] Comment on above: Order Comment: Martha murguia Type: BLOOD SPECIMENOrdering Facility: [facility] Address: [address] [place] [address] Result Comment: Mary Jo mated Glomerular Filtration [...] actual GFR. Performed By: #### 1 9123-9, 70794-2 ####[facility] [id number] [place] [address] [place] Glucose [Mass/Vol] 102 mg/dL High 74-99 [facility] Comment on above: Order Comment: Martha murguia Type: BLOOD SPECIMENOrdering Facility: [facility] Address: [address] [place] [address] Result Comment: The [place] Diabetes Association (ADA) provides guidance for cutoff [...] Standards of Medical Care in Diabetes 2016, [place] Diabetes Association. Diabetes Care. 2016.39(Suppl 1). Performed By: #### 1 9123-9, 73431-9 ####[facility] SHARIGEETHA [id number] [place] [address] [place] Potassium [Moles/Vol] 4.4 mmol/L Normal 3.7-5.1 [facility] Comment on above: Order Comment: Martha murguia Type: BLOOD SPECIMENOrdering Facility: [facility] Address: [address] [place] [address] Performed By: #### 1 9123-9, 51461-3 ####[facility]UN[facility] [id number] [place] [address] [place] Sodium [Moles/Vol] 138 mmol/L Normal 136-144 [facility] Comment on above: Order Comment: Martha murguia Type: BLOOD SPECIMENOrdering Facility: [facility] Address: [address] [place] [address] Performed By: #### 1 9123-9, 06670-4 ####[facility]UN[facility] [id number] [place] [address] [place] Urea nitrogen [Mass/Vol] 32 mg/dL High 9-24 [facility] Comment on above: Order Comment: Martha murguia Type: BLOOD SPECIMENOrdering Facility: [facility] Address: [address] [place] [address] Performed By: #### 1 9123-9, 73696-0 ####[facility]ENCYNCLIA [id number] [place] [address] [place] CNPEufemia 11-07-2024 CNPN Telephone ([facility]) -------- WILMER MORLEY ([id number]) 1940 M Date Time Provider Department 11/07/24 NAMITA GEE During your visit today, we recorded the following information about you: Namita Gee [facility] 11/07/2024 8:26 AM Signed [facility] Ambulatory Pharmacy Anticoagulation Clinic Anticoagulation Episode Summary Anticoagulation Care Providers Provider Role Specialty Phone number Tien Serrano MD Referring Family Medicine [phone] Wilmer Morley is a 83 year old [...] Mon; 5 mg all other days Sent Aquaporin message Advised patient to continue current weekly dose as noted above Next INR check due on 11/21/2024 Namita Gee [facility] Clinical Pharmacist, Pharmacy Anticoagulation Clinic Pharmacy Anticoagulation Clinic Pager: [phone]. Namita Gee RPh 11/21/2024 3:54 PM Signed [...] Paroxysmal atrial fibrillation (HCC) [I48.0] 03/19/2015 04/11/2015 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 [Z79.*04/11/2015 Episodic lightheadedness [R42] 04/11/2015 01/21/2018 Bilateral edema of lower extremity [R60.0] 04/11/2015 01/10/2016 Venous (peripheral) insufficiency [I87.2] 04/11/2015 History of DVT (deep vein thrombosis) [Z86.718] 02/14/2016 Asymptomatic LV dysfunction [I51.9] 10/28/2016 terminal make up operator current use of antiarrhythmic medical*10/28/2016 Change in bowel movement [R19.8] 01/21/2018 03/14/2021 Stage 3a chronic kidney disease (HCC) [N18.31] 04/08/2018 Hyperglycemia [R73.9] 03/14/2021 Hypertensive kidney disease with stage 3a chron*11/06/2021 10/31/2022 Hx of skin (more content not included)... Normal [facility] Magnesium SerPl-mCncon 11-07 Magnesium [Mass/Vol] 1.8 mg/dL Normal 1.7-2.3 [facility] Comment on above: Order Comment: Speci men Type: BLOOD SPECIMENOrdering Facility: [facility] Address: [address] [place] [address] Performed By: #### 1 9123-9, 71637-5 ####[facility] [id number] [address] STATES OF [facility] NT-proBNP [facility]07 Natriuretic peptide.B prohormone N-Terminal [Mass/Vol] 2170 pg/mL High <450 [facility] Comment on above: Order Comment: Speci men Type: BLOOD SPECIMENOrdering Facility: [facility] Address: [address] [place] [address] Performed By: #### 3 3762-6 ####[facility] LABCLIA [id number] [address] [place] CNOVon 11-02-2024 CNOV Office Visit (FAMPWS ) -------- WILMER MORLEY ([id number]) 1940 M Date Time Provider Department 11/02/24 [...] without alteration from previous ov: Wintered in [place]. Had elected initially not see pulmonary. Had [...] Abs Lymph 1.00 - 4.00 k/uL 1.39 Screven% % 9.3 Abs Screven <0.87 k/uL 0.62 Eosin% % 4.4 Abs [...] (chronic kidn (more content not included)... Normal [facility] Basic metabolic 2000 panelOr dered By: Seema Nix on 11-01-2024 Anion gap [Moles/Vol] 13 mmol/L 8 - 15 mmol/L [facility] Calcium [Mass/Vol] 9 mg/dL 8.5 - 10. 2 mg/dL [facility] Chloride [Moles/Vol] 105 mmol/L 98 - 10 7 mmol/L [facility] CO2 [Moles/Vol] 21 mmol/L Low 22 - 30 mmol/L [facility] Creatinine [Mass/Vol] 1.55 mg/dL High 0.73 - 1.22 mg/dL [facility] GFR/1.73 sq M.predicted among non-blacks MDRD (S/P/Bld) [Vol rate/Area] 44 mL/min/{1.73_m2} Low - PINF [facility] Comment on above: Estimated Glomerular Filtration Rate [...] [Mass/Vol] 98 mg/dL 74 - 99 mg/dL [facility] Comment on above: The [place] Diabete s Association (ADA) provides guidance for [...] Standards of Medical Care in Diabetes 2016, [place] Diabetes Association. Diabetes Care. 2016.39(Suppl 1). Interpretation and review of laboratory results Abnormal [facility] Potassium [Moles/Vol] 4.3 mmol/L 3.7 - 5.1 mmol/L [facility] Sodium [Moles/Vol] 139 mmol/L 136 - 144 mmol/L [facility] Urea nitrogen [Mass/Vol] 42 mg/dL High 9 - 24 mg/dL [facility] Basic metabolic 2000 panelon 11-01-2024 Anion gap [Moles/Vol] 13 mmol/L Normal 8-15 [facility] Comment on above: Order Comment: Speci men Type: BLOOD SPECIMENOrdering Facility: [facility] Address: [address] [place] [address] Performed By: #### 2 4321-2 ####[facility] [id number] [place] [address] [place] Calcium [Mass/Vol] 9.0 mg/dL Normal 8.5-10.2 [facility] Comment on above: Order Comment: Speci men Type: BLOOD SPECIMENOrdering Facility: [facility] Address: [address] [place] [address] Performed By: #### 2 4321-2 ####[facility]ITALWDARELLLIA [id number] [place] [id number] [place] Chloride [Moles/Vol] 105 mmol/L Normal 98-107 [facility] Comment on above: Order Comment: Speci men Type: BLOOD SPECIMENOrdering Facility: [facility] Address: [address] [place] [address] Performed By: #### 2 4321-2 ####[facility] [id number] [place] [address] [place] CO2 [Moles/Vol] 21 mmol/L Low 22-30 [facility] Comment on above: Order Comment: Speci men Type: BLOOD SPECIMENOrdering Facility: [facility] Address: [address] [place] [address] Performed By: #### 2 4321-2 ####[facility] [id number] [place] [address] [place] Creatinine [Mass/Vol] 1.55 mg/dL High 0.73-1.22 [facility] Comment on above: Order Comment: Speci men Type: BLOOD SPECIMENOrdering Facility: [facility] Address: [address] [place] [address] Performed By: #### 2 4321-2 ####[facility] [id number] [place] [address] [place] Creatinine and Glomerular filtration rate.predicted panel (S/P/Bld) 44 mL/min/1.73m??? Low >=60 [facility] Comment on above: Order Comment: Speci men Type: BLOOD SPECIMENOrdering Facility: [facility] Address: [address] [place] [address] Result Comment: Mary Jo mated Glomerular Filtration [...] actual GFR. Performed By: #### 2 4321-2 ####[facility] SHARIMiahNCLIA [id number] [place] [address] [place] Glucose [Mass/Vol] 98 mg/dL Normal 74-99 [facility] Comment on above: Order Comment: Speci men Type: BLOOD SPECIMENOrdering Facility: [facility] Address: [address] [place] [address] Result Comment: The [place] Diabetes Association (ADA) provides guidance for cutoff [...] Standards of Medical Care in Diabetes 2016, [place] [employer]. Diabetes Care. 2016.39(Suppl 1). Performed By: #### 2 4321-2 ####[facility] [id number] [place] [address] [place] Potassium [Moles/Vol] 4.3 mmol/L Normal 3.7-5.1 [facility] Comment on above: Order Comment: Speci men Type: BLOOD SPECIMENOrdering Facility: [facility] Address: [address] [place] [address] Performed By: #### 2 4321-2 ####[facility] [id number] [place] [address] [place] Sodium [Moles/Vol] 139 mmol/L Normal 136-144 [facility] Comment on above: Order Comment: Speci men Type: BLOOD SPECIMENOrdering Facility: [facility] Address: [address] [place], [place] [address] Performed By: #### 2 4321-2 ####[facility] SHARIWNCLIA [id number] [address] OF [facility] Urea nitrogen [Mass/Vol] 42 mg/dL High 9-24 [facility] Comment on above: Order Comment: Speci men Type: BLOOD SPECIMENOrdering Facility: [facility] Address: [facility] [place] [id number] Performed By: #### 2 4321-2 ####[facility] SHARIWNCLIA [id number] [place] [address] [facility] CNPNon 10-28-2024 [facility] Telephone (FAMWS) -------- WILMER MORLEY ([id number]) 1940 M Date Time Provider Department 10/28/24 [facility] During your visit today, we recorded [...] [I10] Order(s):BASIC METABOLIC PANEL [SQBMP] Order #: [id number] FUTURE Prescriptions as of 11/02/2024 - flecainide [...] Paroxysmal atrial fibrillation (HCC) [I48.0] 03/19/2015 04/11/2015 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 [Z79.*04/11/2015 Episodic lightheadedness [R42] 04/11/2015 01/21/2018 Bilateral edema of lower extremity [R60.0] 04/11/2015 01/10/2016 Venous (peripheral) insufficiency [I87.2] 04/11/2015 History of DVT (deep vein thrombosis) [Z86.718] 02/14/2016 Asymptomatic LV dysfunction [I51.9] 10/28/2016 terminal make up operator current use of antiarrhythmic medical*10/28/2016 Change in [...] Status:Closed by TIEN SERRANO on 11/02/24 Normal [facility] CBC W Auto Differential pane l (Bld)on 10-27-2024 Basophils (Bld) [#/Vol] 0.03 10*3/uL Normal <0.11 [facility] Comment on above: Order Comment: Speci men Type: BLOOD SPECIMENOrdering Facility: [facility] Address: [address] [place] [address] Performed By: #### 5 7021-8 ####[facility] [id number] [place] [address] [place] Basophils/100 WBC (Bld) 0.5 % Normal [facility] Comment on above: Order Comment: Speci men Type: BLOOD SPECIMENOrdering Facility: [facility] Address: [address] [place] [address] Performed By: #### 5 7021-8 ####[facility] [id number] [place] [address] [place] Differential cell count method Nom (Bld) Auto Normal [facility] Comment on above: Order Comment: Speci men Type: BLOOD SPECIMENOrdering Facility: [facility] Address: [address] [place] [address] Performed By: #### 5 7021-8 ####[facility] SHARIHERMITAGEDARELLLIA [id number] [place] [address] [place] Eosinophils (Bld) [#/Vol] 0.29 10*3/uL Normal <0.46 [facility] Comment on above: Order Comment: Speci men Type: BLOOD SPECIMENOrdering Facility: [facility] Address: [address] [place] [address] Performed By: #### 5 7021-8 ####[facility] [id number] [place] [address] [place] Eosinophils/100 WBC (Bld) 4.4 % Normal [facility] Comment on above: Order Comment: Speci men Type: BLOOD SPECIMENOrdering Facility: [facility] Address: [address] [place] [address] Performed By: #### 5 7021-8 ####[facility] [id number] [place] [address] [place] Erythrocyte distribution width (RBC) [Ratio] 13.1 % Normal 11.5-15.0 [facility] Comment on above: Order Comment: Speci men Type: BLOOD SPECIMENOrdering Facility: [facility] Address: [address] [place] [address] Performed By: #### 5 7021-8 ####[facility]ENTERLIA [id number] [place] [address] [place] Hematocrit (Bld) [Volume fraction] 40.2 % Normal 39.0-51.0 [facility] Comment on above: Order Comment: Speci men Type: BLOOD SPECIMENOrdering Facility: [facility] Address: [address] [place] [address] Performed By: #### 5 7021-8 ####[facility]ERGENCYNCLIA [id number] [place] [address] [place] Hemoglobin (Bld) [Mass/Vol] 13.4 g/dL Normal 13.0-17.0 [facility] Comment on above: Order Comment: Speci men Type: BLOOD SPECIMENOrdering Facility: [facility] Address: [address] [place] [address] Performed By: #### 5 7021-8 ####[facility]ENTERLIA [id number] [place] [address] [place] Immature granulocytes (Bld) [#/Vol] 10*3/uL Normal <0.10 [facility] Comment on above: Order Comment: Speci men Type: BLOOD SPECIMENOrdering Facility: [facility] Address: [address] [place] [address] Performed By: #### 5 7021-8 ####[facility] [id number] [place] [address] [place] Immature granulocytes/100 WBC (Bld) 0.3 % Normal [facility] Comment on above: Order Comment: Speci men Type: BLOOD SPECIMENOrdering Facility: [facility] Address: [address] [place] [address] Performed By: #### 5 7021-8 ####[facility]ENTERLIA [id number] [place] [address] [place] Lymphocytes (Bld) [#/Vol] 1.39 10*3/uL Normal 1.00-4.00 [facility] Comment on above: Order Comment: Speci men Type: BLOOD SPECIMENOrdering Facility: [facility] Address: [address] [place] [address] Performed By: #### 5 7021-8 ####[facility]ER[facility]ENCYNCLIA [id number] [place] [address] [place] Lymphocytes/100 WBC (Bld) 20.9 % Normal [facility] Comment on above: Order Comment: Speci men Type: BLOOD SPECIMENOrdering Facility: [facility] Address: [address] [place] [address] Performed By: #### 5 7021-8 ####[facility] [id number] [place] [address] [place] MCH (RBC) [Entitic mass] 32.3 pg Normal 26.0-34.0 [facility] Comment on above: Order Comment: Speci men Type: BLOOD SPECIMENOrdering Facility: [facility] Address: [address] [place] [address] Performed By: #### 5 7021-8 ####[facility] [id number] [place] [address] [place] MCHC (RBC) [Mass/Vol] 33.3 g/dL Normal 30.5-36.0 [facility] Comment on above: Order Comment: Speci men Type: BLOOD SPECIMENOrdering Facility: [facility] Address: [address] [place] [address] Performed By: #### 5 7021-8 ####[facility] [id number] [place] [address] [place] MCV (RBC) [Entitic vol] 96.9 fL Normal 80.0-100.0 [facility] Comment on above: Order Comment: Speci men Type: BLOOD SPECIMENOrdering Facility: [facility] Address: [address] [place] [address] Performed By: #### 5 7021-8 ####[facility] [id number] [place] [address] [place] Monocytes (Bld) [#/Vol] 0.62 10*3/uL Normal <0.87 [facility] Comment on above: Order Comment: Speci men Type: BLOOD SPECIMENOrdering Facility: [facility] Address: [address] [place] [address] Performed By: #### 5 7021-8 ####[facility] MILLTOWNCLIA [id number] [place] [address] [place] Monocytes/100 WBC (Bld) 9.3 % Normal [facility] Comment on above: Order Comment: Speci men Type: BLOOD SPECIMENOrdering Facility: [facility] Address: [address] [place] [address] Performed By: #### 5 7021-8 ####[facility] MILLTOWNCLIA [id number] [place] [address] [place] Neutrophils (Bld) [#/Vol] 4.30 10*3/uL Normal 1.45-7.50 [facility] Comment on above: Order Comment: Speci men Type: BLOOD SPECIMENOrdering Facility: [facility] Address: [address] [place] [address] Performed By: #### 5 7021-8 ####[facility]ITALWNCLIA [id number] [place] [address] [place] Neutrophils/100 WBC (Bld) 64.6 % Normal [facility] Comment on above: Order Comment: Speci men Type: BLOOD SPECIMENOrdering Facility: [facility] Address: [address] [place] [address] Performed By: #### 5 7021-8 ####[facility] MILLTOWNCLIA [id number] [place] [address] [place] Nucleated RBC (Bld) [#/Vol] 10*3/uL Normal <0.01 [facility] Comment on above: Order Comment: Speci men Type: BLOOD SPECIMENOrdering Facility: [facility] Address: [address] [place] [address] Performed By: #### 5 7021-8 ####[facility] MILLTOWNCLIA [id number] [place] [address] [place] Nucleated RBC/100 WBC (Bld) [Ratio] 0.0 /100 WBC Normal [facility] Comment on above: Order Comment: Speci men Type: BLOOD SPECIMENOrdering Facility: [facility] Address: [address] [place] [address] Performed By: #### 5 7021-8 ####[facility] SHARIHERMITAGEEUNICE [id number] [place] [address] [place] Platelet mean volume (Bld) [Entitic vol] 9.4 fL Normal 9.0-12.7 [facility] Comment on above: Order Comment: Speci men Type: BLOOD SPECIMENOrdering Facility: [facility] Address: [address] [place] [address] Performed By: #### 5 7021-8 ####[facility] EMERGENCYDARELLFay [id number] [place] [address] [place] Platelets (Bld) [#/Vol] 149 10*3/uL Low 150-400 [facility] Comment on above: Order Comment: Speci men Type: BLOOD SPECIMENOrdering Facility: [facility] Address: [address] [place] [address] Performed By: #### 5 7021-8 ####[facility]ERGENCYEUNICE [id number] [place] [address] [place] RBC (Bld) [#/Vol] 4.15 10*6/uL Low 4.20-6.00 [facility] Comment on above: Order Comment: Speci men Type: BLOOD SPECIMENOrdering Facility: [facility] Address: [address] [place] [address] Performed By: #### 5 7021-8 ####[facility] EMERGENCYDARELLLIA [id number] [place] [address] [place] WBC (Bld) [#/Vol] 6.65 10*3/uL Normal 3.70-11.00 [facility] Comment on above: Order Comment: Speci men Type: BLOOD SPECIMENOrdering Facility: [facility] Address: [address] [place] [address] Performed By: #### 5 7021-8 ####[facility] [id number] [place] [address] [place] Comprehensive metabolic 2000 panelon 10-27-2024 Albumin [Mass/Vol] 4.2 g/dL Normal 3.9-4.9 [facility] Comment on above: Order Comment: Speci men Type: BLOOD SPECIMENOrdering Facility: [facility] Address: [address] [place] [address] Performed By: #### 2 4323-8 ####[facility] [id number] [place] [address] [place] ALP [Catalytic activity/Vol] 87 U/L Normal 38-113 [facility] Comment on above: Order Comment: Speci men Type: BLOOD SPECIMENOrdering Facility: [facility] Address: [address] [place] [address] Performed By: #### 2 4323-8 ####[facility] [id number] [address] [place] ALT [Catalytic activity/Vol] 20 U/L Normal 10-54 [facility] Comment on above: Order Comment: Speci men Type: BLOOD SPECIMENOrdering Facility: [facility] Address: [address] [place] [address] Performed By: #### 2 4323-8 ####[facility]ENCYNCLIA [id number] [place] [address] [place] Anion gap [Moles/Vol] 12 mmol/L Normal 8-15 [facility] Comment on above: Order Comment: Speci men Type: BLOOD SPECIMENOrdering Facility: [facility] Address: [address] [place] [address] Performed By: #### 2 4323-8 ####[facility] SHARIJESSICALIA [id number] [place] [address] [place] AST [Catalytic activity/Vol] 19 U/L Normal 14-40 [facility] Comment on above: Order Comment: Speci men Type: BLOOD SPECIMENOrdering Facility: [facility] Address: [address] [place] [address] Performed By: #### 2 4323-8 ####[facility]ENCYNCLIA [id number] [place] [address] [place] Bilirubin [Mass/Vol] 0.6 mg/dL Normal 0.2-1.3 [facility] Comment on above: Order Comment: Speci men Type: BLOOD SPECIMENOrdering Facility: [facility] Address: [address] [place] [address] Performed By: #### 2 4323-8 ####[facility]ENTERLIA [id number] [place] [address] [place] Calcium [Mass/Vol] 9.2 mg/dL Normal 8.5-10.2 [facility] Comment on above: Order Comment: Speci men Type: BLOOD SPECIMENOrdering Facility: [facility] Address: [address] [place] [address] Performed By: #### 2 4323-8 ####[facility]ERGENCYNCLIA [id number] [place] [address] [place] Chloride [Moles/Vol] 104 mmol/L Normal 98-107 [facility] Comment on above: Order Comment: Speci men Type: BLOOD SPECIMENOrdering Facility: [facility] Address: [address] [place] [address] Performed By: #### 2 4323-8 ####[facility]ENCYNCLIA [id number] [place] [address] [place] CO2 [Moles/Vol] 21 mmol/L Low 22-30 [facility] Comment on above: Order Comment: Speci men Type: BLOOD SPECIMENOrdering Facility: [facility] Address: [address] [place] [address] Performed By: #### 2 4323-8 ####[facility]ENCYNCLIA [id number] [place] [address] [place] Creatinine [Mass/Vol] 1.43 mg/dL High 0.73-1.22 [facility] Comment on above: Order Comment: Speci men Type: BLOOD SPECIMENOrdering Facility: [facility] Address: [address] [place] [address] Performed By: #### 2 4323-8 ####[facility]ENCYNCLIA [id number] [place] [address] [place] Creatinine and Glomerular filtration rate.predicted panel (S/P/Bld) 49 mL/min/1.73m??? Low >=60 [facility] Comment on above: Order Comment: Speci men Type: BLOOD SPECIMENOrdering Facility: [facility] Address: [address] [place] [address] Result Comment: Mary Jo mated Glomerular Filtration [...] actual GFR. Performed By: #### 2 4323-8 ####[facility] SHARIWNCLIA [id number] [place] [address] [place] Glucose [Mass/Vol] 90 mg/dL Normal 74-99 [facility] Comment on above: Order Comment: Speci men Type: BLOOD SPECIMENOrdering Facility: [facility] Address: [address] [place] [address] Result Comment: The [place] Diabetes Association (ADA) provides guidance for cutoff [...] Standards of Medical Care in Diabetes 2016, [place] Diabetes Association. Diabetes Care. 2016.39(Suppl 1). Performed By: #### 2 4323-8 ####[facility] [id number] [place] [address] [place] Potassium [Moles/Vol] 4.8 mmol/L Normal 3.7-5.1 [facility] Comment on above: Order Comment: Speci men Type: BLOOD SPECIMENOrdering Facility: [facility] Address: [address] [place] [address] Performed By: #### 2 4323-8 ####[facility] [id number] [place] [address] [place] Protein [Mass/Vol] 7.1 g/dL Normal 6.3-8.0 [facility] Comment on above: Order Comment: Speci men Type: BLOOD SPECIMENOrdering Facility: [facility] Address: [address] [place] [address] Performed By: #### 2 4323-8 ####[facility] [id number] [place] [address] [place] Sodium [Moles/Vol] 137 mmol/L Normal 136-144 [facility] Comment on above: Order Comment: Speci men Type: BLOOD SPECIMENOrdering Facility: [facility] Address: [address] [place] [address] Performed By: #### 2 4323-8 ####[facility] [id number] [place] [address] [place] Urea nitrogen [Mass/Vol] 37 mg/dL High 9-24 [facility] Comment on above: Order Comment: Speci men Type: BLOOD SPECIMENOrdering Facility: [facility] Address: [address] [place] [address] Performed By: #### 2 4323-8 ####[facility]ENCYNCM[facility] [id number] [place] [address] [place] HbA1c (Bld)on 10-27-2024 Average glucose Estimated from glycated hemoglobin (Bld) [Mass/Vol] 120 mg/dL Normal [facility] Comment on above: Order Comment: Martha men Type: BLOOD SPECIMENOrdering Facility: [facility] Address: [address] [place] [address] Result Comment: eAG: (Estimated average glucose) is a calculated value from HgbA1c and is sales representative of the average blood glucose level in the last 2-3 month period. Performed By: #### 5 5454-3 ####[facility] LABCLIA [id number] [address] [place] HbA1c (Bld) [Mass fraction] 5.8 % High 4.3-5.6 [facility] Comment on above: Order Comment: Martha murguia Type: BLOOD SPECIMENOrdering Facility: [facility] Address: [address] [place] [address] Result Comment: [place] Diabetes Association guidelines indicate that patients with HgbA1c in the range 5.7-6.4% are at increased risk for development of diabetes, and intervention by lifestyle modification may be beneficial. HgbA1c greater or equal to 6.5% is considered diagnostic of diabetes. Performed By: #### 5 5454-3 ####[facility] LABCLIA [id number] [facility] [id number], [place] [address] [place] Lipid 1996 panelon 5 Cholesterol [Mass/Vol] 114 mg/dL Normal <200 [facility] Comment on above: Order Comment: Martha men Type: BLOOD SPECIMENOrdering Facility: [facility] Address: [address] [place] [address] Result Comment: <200 mg/dL, Desirable 200-239 mg/dL, Borderline high >239 mg/dL, High Performed By: #### 2 4331-1 ####[facility] LABCLIA [id number] [facility]ITALK [address] [place] [address] [place] [facility] [id number] [place] [address] [place]#### 24446-5 ####[facility] LABCLIA [id number] [address], [facility] [place] Cholesterol in HDL [Mass/Vol] 48 mg/dL Normal >39 [facility] Comment on above: Order Comment: Tristini men Type: BLOOD SPECIMENOrdering Facility: [facility] Address: [address] [place] [address] Result Comment: 40-5 9 mg/dL, Acceptable >59 mg/dL, High: Negative risk factor for coronary heart disease <40 mg/dL, Low: Positive risk factor for coronary heart disease Performed By: #### 2 4331-1 ####[facility] LABCLIA [id number] [facility] [id number], [place] [address] [place] [address] [facility] [address] [id number] [place] [address] [place]#### 83098-7 ####[facility] LABCLIA [id number] [address] [place] [address] [place] Cholesterol in LDL [Mass/Vol] 50 mg/dL Normal <100 [facility] Comment on above: Order Comment: Speci blade Type: BLOOD SPECIMENOrdering Facility: [facility] Address: [address] [place] [address] Result Comment: <100 mg/dL, Optimal 100-129 mg/dL, Near optimal/above optimal 130-159 mg/dL, Borderline high 160-189 mg/dL, High >189 mg/dL, Very high Secondary prevention optimal LDL Cholesterol levels are recommended to be <70 mg/dL LDL cholesterol is calculated using the Felix-NIH equation. Performed By: #### 2 4331-1 ####[facility] LABCLIA [id number] [place] [id number] [place] [address]#### 24823-1 ####[facility] LABIA [id number] [address] Cholesterol in LDL/Cholesterol in HDL [Mass ratio] 1.04 {ratio} Normal <2.54 [facility] Comment on above: Order Comment: Martha murguia Type: BLOOD SPECIMENOrdering Facility: [facility] Address: [address] [place] [address] Result Comment: Lakhwinder venegas: 1. National Cholesterol Education Program ATP III Guideline At-A-Glance Quick Desk Reference: National Heart, Lung, and Blood Shapleigh. National Institutes of Health. 2001: NIH Publication No. 01-3305. 2. An International Atherosclerosis Society position paper: global recommendations for the management of dyslipidemia: executive summary, Atherosclerosis. 2014: 232(2):410-413. Performed By: #### 2 4331-1 ####[facility] LABCLIA [id number] [id number] [place] [address] [place]#### 53744-5 ####[facility] LABCLIA [id number] [address] [address] [place] Cholesterol in VLDL [Mass/Vol] 11 mg/dL Normal <30 [facility] Comment on above: Order Comment: Speci men Type: BLOOD SPECIMENOrdering Facility: [facility] Address: [address] [place] [address] Performed By: #### 2 4331-1 ####[facility] LABCLIA [id number] [place] [id number] [place] [facility] [id number] [place] [address] [place]#### 33766-9 ####[facility] LABCLIA [id number] [address] [place] Cholesterol non HDL [Mass/Vol] 66 mg/dL Normal <130 [facility] Comment on above: Order Comment: Speci men Type: BLOOD SPECIMENOrdering Facility: [facility] Address: [address] [place] [address] Result Comment: <130 mg/dL, Optimal 130-159 mg/dL, Near optimal/above optimal 160-189 mg/dL, Borderline high 190-219 mg/dL, High >219 mg/dL, Very high Secondary prevention optimal non HDL Cholesterol levels are recommended to be <100 mg/dL Performed By: #### 2 4331-1 ####[facility] LABCLIA [id number] [place] [id number] [place] [facility] [id number] [place] [address] [place]#### 49514-9 ####[facility] LABCLIA [id number] [place] [id number] [place] Cholesterol.total/Ch olesterol in HDL [Mass ratio] 2.38 {ratio} Normal <5.10 [facility] Comment on above: Order Comment: Speci men Type: BLOOD SPECIMENOrdering Facility: [facility] Address: [address] [place], [place] [address] Performed By: #### 2 4331-1 ####[facility] LABCLIA [id number] [address] [place] [address] [place] [facility] [id number] [place] [address] [place]#### 79146-5 ####[facility] LABCLIA [id number] [address], [facility] [place] FASTING TIME 12 hrs Normal [facility] Comment on above: Order Comment: Speci men Type: BLOOD SPECIMENOrdering Facility: [facility] Address: [address] [place], [place] [address] Performed By: #### 2 4331-1 ####[facility] LABCLIA [id number] [address], [place] [address] [place] [facility] [id number] [place] [address] [place] DONALD#### 18245-7 ####[facility] LABCLIA [id number] [address], [facility] [place] Triglyceride [Mass/Vol] 80 mg/dL Normal <150 [facility] Comment on above: Order Comment: Speci men Type: BLOOD SPECIMENOrdering Facility: [facility] Address: [address] [place], [place] [address] Result Comment: <150 mg/dL, Normal 150-199 mg/dL, Borderline high 200-499 mg/dL, High >499 mg/dL, Very high Performed By: #### 2 4331-1 ####[facility] LABCLIA [id number] [address] [place] [address] [place] [address] [id number] [address]#### [address]-4 ####[facility] [id number] [address] STATES OF [place] NT-proBNP [facility] 10-27 Natriuretic peptide.B prohormone N-Terminal [Mass/Vol] 1885 pg/mL High <450 [facility] Comment on above: Order Comment: Speci men Type: BLOOD SPECIMENOrdering Facility: [facility] Address: [address] [place] [address] Performed By: #### 2 4331-1 ####[facility] [id number] [address] STATES OF [facility] [id number] [address] OF [place]#### [address]-3 ####[facility] [id number] [address] OF [facility] 10-20-2024 CNPN Telephone (PHAMTE) -------- WILMER MORLEY ([id number]) 1940 M Date Time Provider Department 10/20/24 JINNY SHAH During your visit today, we recorded the following information about you: Jinny Shah, [facility] 10/20/2024 1:44 PM Signed [facility] Ambulatory Pharmacy Anticoagulation Clinic Anticoagulation Episode Summary Anticoagulation Care Providers Provider Role Specialty Phone number Tien Serrano MD Referring Family Medicine [phone] Wilmer Maxwelley is a 83 year old [...] ALLERGIES No Known Allergies 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 History of dvt (deep vein thrombosis) Anticoagulation Episode Summary Current INR goal: 2.0-3.0 Assessment: INR result of 2.7 is therapeutic Plan: Current Warfarin Dosing As of 10/20/2024 Full warfarin instructions: 7.5 mg every Mon; 5 mg all other days Sent Aquaporin message Advised patient to continue current weekly dose as noted above Next home INR check scheduled on 11/03/2024 Patient advised to call the PAC with any medication changes, bleeding/bruising concerns, recent changes in vitamin k consumption, if any procedures are coming up, if they have been ill or in the hospital, and if they have missed any doses of warfarin. Jinny Shah [facility] Clinical Pharmacist, Pharmacy Anticoagulation Clinic Pharmacy Anticoagulation Clinic Pager: [phone]. 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 Normal [facility] XR CHEST 2V FRONTAL/LATon XR CHEST [...] thoracic spine. IMPRESSION: No acute radiographic abnormality. 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 Transcribe Date/Time: Oct 12 2024 8:34A Dictated by : CAROLINE SHAVER MD This examination was interpreted and the report reviewed and electronically signed by: CAROLINE SHAVER MD on Oct 12 2024 8:35AM EST [id number] Normal [facility] CNOVon 10-10-2024 CNOV Office Visit (FAMPWS ) -------- WILMER MORLEY ([id number]) 1940 M Date Time Provider Department 10/10/24 7:20 PM TIEN SERRANO During your visit today, we recorded the following information about you: Pulse Blood pressure Weight 60/minute 138/68 93.9 kg Tien Serrano MD 10/10/2024 7:47 PM Signed Patient presents with: Consult: Would like to see pulm. Had testing done in Feb. Breathing has gotten worse but just got back from [facility] HPI: Patient presents today for office visit for follow up. Wintered in [place]. Had elected initially not see pulmonary. Had [...] FLX DX W/COLLJ SPEC WHEN [facility]FRMD [facility] years ESOPHAGOGASTRODUODENOSCO PY TRANSORAL DIAGNOSTIC N/A 08/16/2020 [facility] PA[facility] H[facility] OF 2010 basal cell to right above upper lip FAMILY HISTORY Problem Relation Age of Onset Heart Father CHF Heart Mother CHF Heart Brother PA - rheumatic fever Cancer Brother gastric Asthma Sister Social History Tobacco Use Smoking status: Former Current packs/day: 0.00 Types: Cigarettes Start date: 02/24/2010 Quit date: 02/24/2011 Years since quittin.6 Smokeless tobacco: Never Substance Use Topics Alcohol use: Yes Alcohol/week: 2.3 standard drinks of alcohol Types: 1 Glasses of Wine (5 (more content not included)... Normal [facility] CNPNon 10-10-2024 CNPN Telephone (PHARMN) -------- WILMER MORLEY ([id number]) 1940 M Date Time Provider Department 10/10/24 [...] Namita Gee RPh 10/10/2024 11:07 AM Signed [facility] Ambulatory Pharmacy Anticoagulation Clinic Anticoagulation Episode Summary Anticoagulation Care Providers Provider Role Specialty Phone number Tien Serrano MD Referring Family Medicine [phone] Wilmer Maxwelley is a 83 year old [...] verbalizes understanding of the plan. Namita Gee [facility] Clinical Pharmacist, Pharmacy Anticoagulation Clinic Pharmacy Anticoagulation Clinic Pager: [phone]. Allergies As of Date: 10/10/2024 (No Known [...] Paroxysmal atrial fibrillation (HCC) [I48.0] 03/19/2015 04/11/2015 longterm (current) use of anticoagulants [Z79.*04/11/2015 Episodic lightheadedness [R42] 04/11/2015 01/21/2018 Bilateral edema of lower extremity [R60.0] 04/11/2015 01/10/2016 Venous (peripheral) insufficiency [I87.2] 04/11/2015 History of DVT (deep vein thrombosis) [Z86.718] 02/14/2016 Asymptomatic LV dysfunction [I51.9] 10/28/2016 longterm current use of antiarrhythmic medical*10/28/2016 Change in bowel movement [R19.8] 01/21/2018 03/14/2021 Stage 3a chronic kidney disease (HCC) [N18.31] 04/08/2018 Hyperglycemia [R73.9] 03/14/2021 Hypertensive kidney disease with stage 3a chron*11/06/2021 10/31/2022 Hx of skin cancer, basal cell [Z85.828] 11/08/2021 Lightheaded [R42] 02/02/2024 Benign paroxysmal positional vertigo of right e*02/02/2024 Chronic obstructive pulmonary disease (HCC) [J4*02/12/2024 Encounter Status:Closed by NAMITA GEE on 10/10/24 Normal [facility] Chris 09-22-2024 CNPN Telephone (PHAMTE) -------- MILLIWILMER SHARMA ([id number]) 1940 M Date Time Provider Department 09/22/24 JINNY SHAH During your visit today, we recorded the following information about you: Jinny Shah, [facility] 09/22/2024 2:00 PM Signed [facility] Ambulatory Pharmacy Anticoagulation Clinic Anticoagulation Episode Summary Anticoagulation Care Providers Provider Role Specialty Phone number Tien Serrano MD Referring Family Medicine [phone] Wilmer Morley is a 83 year old [...] ALLERGIES No Known Allergies 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: longterm (current) use of anticoagulants History of dvt (deep vein thrombosis) Anticoagulation Episode Summary Current INR goal: 2.0-3.0 Assessment: INR result of 2.7 is therapeutic Plan: Current Warfarin Dosing As of 09/22/2024 Full warfarin instructions: 7.5 mg every Mon; 5 mg all other days Sent Aquaporin message Advised patient to continue current weekly dose as noted above Next home INR check scheduled on 10/06/2024 Patient advised to call the PAC with any medication changes, bleeding/bruising concerns, recent changes in vitamin k consumption, if any procedures are coming up, if they have been ill or in the hospital, and if they have missed any doses of warfarin. Jinny Shah [facility] Clinical Pharmacist, Pharmacy Anticoagulation Clinic Pharmacy Anticoagulation Clinic Pager: [phone]. Jinny Shah [facility] 10/06/2024 3:56 PM Signed Patient [...] Fu [148] Cmt: Home INR Primary Visit Diagnosis:longterm (current) use of anticoagulants [Z79.01] Other Visit [...] Paroxysmal atrial fibrillation (HCC) [I48.0] 03/19/2015 04/11/2015 longterm (current) use of anticoagulants [Z79.*04/11/2015 Episodic lightheadedness [R42] 04/11/2015 01/21/2018 Bilateral edema of lower ext (more content not included)... Normal [facility] CNPNon 09-06-2024 CNPN Telephone (PHAMTE) -------- MILLIWILMER ([id number]) 1940 M Date Time Provider Department 09/06/24 ARABELLA LOPEZ PHAMTE During your visit today, we recorded the following information about you: Arabella Lopez [facility] 09/06/2024 1:41 PM Signed [facility] Ambulatory Pharmacy Anticoagulation Clinic Anticoagulation Episode Summary Anticoagulation Care Providers Provider Role Specialty Phone number Tien Serrano MD Referring Family Medicine [phone] Wilmer Dian Morley is a 83 year [...] Mon; 5 mg all other days Sent Aquaporin message Advised patient to continue current weekly [...] Pharmacy Anticoagulation Clinic Pharmacy Anticoagulation Clinic Pager: [phone]. 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 [facility] -------- WILMER MORLEY ([id number]) 1940 M Date Time Provider Department 08/17/24 GHAZAL BAILEY During your visit today, we recorded the following information about you: Ghazal Bailey [facility] 08/17/2024 8:07 AM Signed [facility] Ambulatory Pharmacy Anticoagulation Clinic Anticoagulation Episode Summary Anticoagulation Care Providers Provider Role Specialty Phone number Tien Serrano MD Referring Family Medicine [phone] Wilmer Morley is a 83 year old [...] ALLERGIES No Known Allergies 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 Atrial fibrillation, unspecified type (hcc) History of dvt (deep vein thrombosis) Anticoagulation Episode Summary Current INR goal: 2.0-3.0 Assessment: INR result of 2.0 is therapeutic Plan: Current Warfarin Dosing As of 08/17/2024 Full warfarin instructions: 7.5 mg every Mon; 5 mg all other days Sent Aquaporin message Advised patient to continue current weekly dose as noted above Next home INR check scheduled on 08/31/2024 Patient advised to call the PAC with any medication changes, bleeding/bruising concerns, recent changes in vitamin k consumption, if any procedures are coming up, if they have been ill or in the hospital, and if they have missed any doses of warfarin. Ghazal Bailey [facility] Clinical Pharmacist, Pharmacy Anticoagulation Clinic Pharmacy Anticoagulation Clinic Pager: [phone]. 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 Normal [facility] 08-02-2024 ARMANI Telephone ([facility]) -------- WILMER MORLEY ([id number]) 1940 M Date Time Provider Department 08/02/24 ARABELLA LOPEZ During your visit today, we recorded the following information about you: Arabella Lopez [facility] 08/02/2024 5:09 PM Signed [facility] Ambulatory Pharmacy Anticoagulation Clinic Anticoagulation Episode Summary Anticoagulation Care Providers Provider Role Specialty Phone number Tien Serrano MD Referring Family Medicine [phone] Wilmer Morley is a 83 year old [...] Mon; 5 mg all other days Sent [employer] message Advised patient to continue current weekly [...] Pharmacy Anticoagulation Clinic Pharmacy Anticoagulation Clinic Pager: [phone]. Arabella Lopez RPh 08/16/2024 1:41 PM Signed [...] Paroxysmal atrial fibrillation (HCC) [I48.0] 03/19/2015 04/11/2015 longterm (current) use of anticoagulants [Z79.*04/11/2015 Episodic lightheadedness [R42] 04/11/2015 01/21/2018 Bilateral edema of lower extremity [R60.0] 04/11/2015 01/10/2016 Venous (peripheral) insufficiency [I87.2] 04/11/2015 History of DVT (deep vein thrombosis) [Z86.718] 02/14/2016 Asymptomatic LV dysfunction [I51.9] 10/28/2016 terminal make up operator current use of antiarrhythmic medical*10/29/19 (more content not included)... Normal [facility] Chris 07-15-2024 [place] Telephone ([employer]) -------- WILMER MORLEY ([id number]) 1940 M Date Time Provider Department 07/15/24 ARABELLA LOPEZ During your visit today, we recorded the following information about you: Arabella Lopez [facility] 07/15/2024 4:28 PM Signed [facility] Ambulatory Pharmacy Anticoagulation Clinic Anticoagulation Episode Summary Anticoagulation Care Providers Provider Role Specialty Phone number Tien Serrano MD Referring Family Medicine [phone] Wilmer Morley is a 83 year old [...] missed any doses of warfarin. Arabella Lopez [facility] Clinical Pharmacist, Pharmacy Anticoagulation Clinic Pharmacy Anticoagulation Clinic Pager: [phone]. Ghazal Bailey RPh 07/27/2024 9:12 AM Signed [...] Paroxysmal atrial fibrillation (HCC) [I48.0] 03/19/2015 04/11/2015 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 [Z79.*04/11/2015 Episodic lightheadedness [R42] 04/11/2015 01/21/2018 Bilateral edema of lower extremity [R60.0] 04/11/2015 01/10/2016 Venous (peripheral) insufficiency [I87.2] 04/11/2015 History of DVT (deep vein thrombosis) [Z86.718] (more content not included)... [facility] -------- WILMER MORLEY ([id number]) 1940 M Date Time Provider Department 06/29/24 GHAZAL BAILEY During your visit today, we recorded the following information about you: Ghazal Bailey RPh 06/29/2024 2:48 PM Signed [facility] Ambulatory Pharmacy Anticoagulation Clinic Anticoagulation Episode Summary Anticoagulation Care Providers Provider Role Specialty Phone number Tien Serrano MD Referring Family Medicine [phone] Wilmer Morley is a 83 year old [...] ALLERGIES No Known Allergies 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: longterm (current) use of anticoagulants Atrial fibrillation, unspecified [...] Pharmacy Anticoagulation Clinic Pharmacy Anticoagulation Clinic Pager: [phone]. Ghazal Bailey RPh 07/13/2024 8:57 AM Signed [...] [148] Cmt: Home INR result Primary Visit Diagnosis: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 [Z79.01] Other Visit [...] 06/29/2024 Not (more content not included)... [facility] -------- WILMER MORLEY ([id number]) 1940 M Date Time Provider Department 06/14/24 ARABELLA LOPEZ During your visit today, we recorded the following information about you: Arabella Lopez RPh 06/14/2024 2:04 PM Signed [facility] Ambulatory Pharmacy Anticoagulation Clinic Anticoagulation Episode Summary Anticoagulation Care Providers Provider Role Specialty Phone number Tien Serrano MD Referring Family Medicine [phone] Wilmer Johnsonaffey is a 83 year old [...] Pharmacy Anticoagulation Clinic Pharmacy Anticoagulation Clinic Pager: [phone]. Arabella Lopez RPh 06/28/2024 12:05 PM Signed [...] Paroxysmal atrial fibrillation (HCC) [I48.0] 03/19/2015 04/11/2015 longterm (current) use of anticoagulants [Z79.*04/11/2015 Episodic lightheadedness [R42] 04/11/2015 01/21/2018 Bilateral edema of lower extremity [R60.0] 04/11/2015 01/10/2016 Venous (peripheral) insufficiency [I87.2] 04/11/2015 History of DVT (deep vein thrombosis) [Z86.718] 02/14/2016 Asymptomatic LV dysfunction [I51.9] (more content not included)... Normal [facility] 05-24-2024 CNPN Telephone (PHAMTE) -------- WILMER MORLEY ([id number]) 1940 M Date Time Provider Department 05/24/24 ARABELLA LOPEZ During your visit today, we recorded the following information about you: Arabella Lopez [facility] 05/24/2024 8:37 AM Signed [facility] Ambulatory Pharmacy Anticoagulation Clinic Anticoagulation Episode Summary Anticoagulation Care Providers Provider Role Specialty Phone number Tien Serrano MD Referring Family Medicine [phone] Wilmer Maxwelley is a 83 year old [...] Pharmacy Anticoagulation Clinic Pharmacy Anticoagulation Clinic Pager: [phone]. Arabella Lopez RPh 06/14/2024 11:01 AM Signed [...] Paroxysmal atrial fibrillation (HCC) [I48.0] 03/19/2015 04/11/2015 longterm (current) use of anticoagulants [Z79.*04/11/2015 Episodic lightheadedness [R42] 04/11/2015 01/21/2018 Bilateral edema of lower extremity [R60.0] 04/11/2015 01/10/2016 Venous (peripheral) insufficiency [I87.2] 04/11/2015 History of DVT (deep vein thrombosis) [Z86.718] 02/14/2016 Asymptomatic LV dysfunction [I51.9] 10/28/2016 (more content not included)... Normal [facility] CNPNon 05-09-2024 CNPN Telephone (ELIZABETHMTE) -------- WILMER MORLEY ([id number]) 1940 M Date Time Provider Department 05/09/24 NAMITA GEE During your visit today, we recorded the following information about you: Namita Gee RPh 05/09/2024 7:07 AM Signed [facility] Ambulatory Pharmacy Anticoagulation Clinic Anticoagulation Episode Summary Anticoagulation Care Providers Provider Role Specialty Phone number Tien Serrano MD Referring Family Medicine [phone] Wilmer Johnsonaffey is a 83 year old [...] Fri; 5 mg all other days Sent Aquaporin message Advised patient to continue current weekly dose as noted above Next INR check due on 05/23/2024 Namita Gee [facility] Clinical Pharmacist, Pharmacy Anticoagulation Clinic Pharmacy Anticoagulation Clinic Pager: [phone]. Arabella Lopez RPh 05/23/2024 8:05 AM Signed [...] Paroxysmal atrial fibrillation (HCC) [I48.0] 03/19/2015 04/11/2015 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 [Z79.*04/11/2015 Episodic lightheadedness [R42] 04/11/2015 01/21/2018 Bilateral edema of lower extremity [R60.0] 04/11/2015 01/10/2016 Venous (peripheral) insufficiency [I87.2] 04/11/2015 History of DVT (deep vein thrombosis) [Z86.718] 02/14/2016 Asymptomatic LV dysfunction [I51.9] 10/28/2016 terminal make up operator current use of antiarrhythmic medical*10/28/2016 Change in bowel movement [R19.8] 01/21/2018 03/14/2021 Stage 3a chronic kidney disease (HCC) [N18.31] 04/08/2018 Hyperglycemia [R73.9] 03/14/2021 Hypertensive kidney disease with stage 3a chron*11/06/2021 10/31/2022 Hx of skin cancer, basal cell [Z85.828] 11/08/2021 Lightheaded [R42] 02/02/2024 Benign paroxysmal positional vertigo of right e*02/02/2024 Chronic obstructive pulmonary disease (HCC) [J4*02/12/2024 Encounter Status:Closed by NAMITA GEE on 05/09/24 Normal [facility] CNOVon 05-02-2024 CNOV Office Visit (FAMPWS ) -------- WILMER MORLEY ([id number]) 1940 M Date Time Provider Department 05/02/24 3:20 PM [facility] During your visit today, we recorded [...] discussed can be a normal finding. 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 Normal [facility] 04-20-2024 [facility] Telephone (LEANNE) -------- WILMER MORLEY ([id number]) 1940 M Date Time Provider Department 04/20/24 GHAZAL BAILEY During your visit today, we recorded the following information about you: Ghazal Bailey RPh 04/20/2024 2:24 PM Signed [facility] Ambulatory Pharmacy Anticoagulation Clinic Anticoagulation Episode Summary Anticoagulation Care Providers Provider Role Specialty Phone number Tien Serrano MD Referring Family Medicine [phone] Wilmer Morley is a 83 year old [...] ALLERGIES No Known Allergies 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: longterm (current) use of anticoagulants Atrial fibrillation, unspecified type (hcc) History of dvt (deep vein thrombosis) Anticoagulation Episode Summary Current INR goal: 2.0-3.0 Assessment: INR result of 2.0 is therapeutic Plan: Current Warfarin Dosing As of 04/20/2024 Full warfarin instructions: 7.5 mg every Mon, Fri; 5 mg all other days Sent Aquaporin message Advised patient to continue current weekly dose as noted above Next home INR check scheduled on 05/04/2024 Patient advised to call the PAC with any medication changes, bleeding/bruising concerns, recent changes in vitamin k consumption, if any procedures are coming up, if they have been ill or in the hospital, and if they have missed any doses of warfarin. Ghazal Bailey [facility] Clinical Pharmacist, Pharmacy Anticoagulation Clinic Pharmacy Anticoagulation Clinic Pager: [phone]. Ghazal Bailey RPh 05/04/2024 9:50 AM Signed Patient was due to test INR today will continue to monitor for results. 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: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 [Z79.01] Other Visit [...] Paroxysmal atrial fibrillation (HCC) [I48.0] 03/19/2015 04/11/2015 longterm (current) use of anticoagulants [Z79.*04/11/2015 Episodic lightheadedness [R42] 04/11/2015 01/21/2018 Bilateral edema of lower extremity [R60.0] 04/11/2015 01/10/2016 Venous (peripheral) insufficiency [I87.2] 04/11/2015 History of DVT (deep vein thrombosis) [Z86.718] 02/14/2016 Asymptomatic LV dysfunction [I51.9] 10/28/2016 terminal make up operator current use of antiarrhythmic medical*10/28/2016 Change in bowel movement [R19.8] 01/21/2018 03/14/2021 Stage 3a (more content not included)... Normal [facility] 03-31-2024 [facility] -------- WILMER MORLEY ([id number]) 1940 M Date Time Provider Department 03/31/24 JINNY SHAH During your visit today, we recorded the following information about you: Jinny Shah [facility] 03/31/2024 5:19 PM Signed [facility] Ambulatory Pharmacy Anticoagulation Clinic Anticoagulation Episode Summary Anticoagulation Care Providers Provider Role Specialty Phone number Tien Serrano MD Referring Family Medicine [phone] Wilmer Morley is a 83 year old [...] ALLERGIES No Known Allergies 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 History of dvt (deep vein thrombosis) Anticoagulation Episode Summary Current INR goal: 2.0-3.0 Assessment: INR result of 2.6 is therapeutic Plan: Current Warfarin Dosing As of 03/31/2024 Full warfarin instructions: 7.5 mg every Mon, Fri; 5 mg all other days Sent Aquaporin message Advised patient to continue current weekly dose as noted above Next home INR check scheduled on 04/14/2024 Patient advised to call the PAC with any medication changes, bleeding/bruising concerns, recent changes in vitamin k consumption, if any procedures are coming up, if they have been ill or in the hospital, and if they have missed any doses of warfarin. Jinny Shah [facility] Clinical Pharmacist, Pharmacy Anticoagulation Clinic Pharmacy Anticoagulation Clinic Pager: [phone]. Jinny Shah [facility] 04/14/2024 3:19 PM Signed Patient was due to test INR today. Will continue to monitor for results. Follow up in one week if no results received. Jinny Shah [facility] Allergies As of Date: 03/31/2024 (No Known Allergies) Date Reviewed: 03/23/2024 Reviewed by: Tra Foss LPN - Fully Assessed Reason for Visit: Anticoagulation Telephone Fu [148] Cmt: Home INR Primary Visit Diagnosis:longterm (current) use of anticoagulants [Z79.01] Other Visit [...] Paroxysmal atrial fibrillation (HCC) [I48.0] 03/19/2015 04/11/2015 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 [Z79.*04/11/2015 Episodic lightheadedness [R42] 04/11/2015 01/21/2018 Bilateral edema of lower extremity [R60.0] 04/11/2015 01/10/2016 Venous (peripheral) insufficiency [I87.2] 04/11/2015 History of DVT (deep vein thrombosis) [Z86.718] 02/14/2016 Asymptomatic LV dysfunction [I51.9] 10/28/2016 longterm current use of antiarrhythmic medical*10/28/2016 Change in bowel movement [R19.8] 01/21/2018 03/14/2021 Stage 3a chronic kidney disease (HCC) [N18.31] 04/08/2018 Hyperg (more content not included)... [facility] CNTHERAPYon 03-30-2024 CNTHERAPY OT/PT/Speech Visit (PTWS) -------- WILMER MORLEY ([id number]) 1940 M Date Time Provider Department 03/30/24 9:45 AM MICHELLE GOMEZ PTMAURY Date Time Provider Department Center 03/30/2024 9:45 AM [id number] GOMEZ PTMAURY Adames Reason for Visit: PT [...] Take 1 tablet by mouth once daily. Program Engineer: Therapy (PT/OT/Speech/Resp) ID: [id number] 03/30/2024 10:04 AM Author: MICHELLE GOMEZ Signed by MICHELLE GOMEZ PT on 03/30/2024 at 10:04 AM Document text: Program_ID:[id number] Access Code: [email or web address] URL: [email or web address] Date: 03-30-2024 Prepared By: Michelle Gomez Program Notes Exercises - Tandem Stance - 1-2 x daily - 7 x weekly - 1 sets - 3 reps - Single Leg Stance - 1-2 x daily - 7 x weekly - 1 sets - 3 reps - Single Leg Stance - 1-2 x daily - 7 x weekly - 1 sets - 3 reps [facility] THERAPY NTon 03-30-2024 THERAPY NT HNO ID: [id number] Author: MICHELLE GOMEZ PT Service: ? Author Type: Physical Therapist Type: Therapy (PT/OT/Speech/Resp) Filed: 03/30/2024 10:04 Note Text: Program_ID:[id number] Access Code: [email or web address] URL: [email or web address] Date: 03-30-2024 Prepared By: Michelle Gomez Program Notes Exercises - Tandem Stance - 1-2 x daily - 7 x weekly - 1 sets - 3 reps - Single Leg Stance - 1-2 x daily - 7 x weekly - 1 sets - 3 reps - Single Leg Stance - 1-2 x daily - 7 x weekly - 1 sets - 3 reps [facility] CNOV[facility] 03-23-2024 [facility] -------- MILLIWILMER Dian ([id number]) 1940 M Date Time Provider Department 03/23/24 4:00 PM [facility] During your visit today, we recorded the following information about you: Pulse Respiration Blood pressure 54/minute 16/minute 142/70 Katy Galdamez APRN.SR. OPERATIONS MANAGER 03/23/2024 5:15 PM Signed This is a [...] years ESOPHAGOGASTRODUODENOSCO PY TRANSORAL DIAGNOSTIC N/A 08[facility]16/2020 [facility] H[facility] 2010 basal [...] Father CHF Heart Mother CHF Heart Brother PA - rheumatic fever Cancer Brother gastric Asthma [...] before exe (more content not included)... [facility] [id number] 03-16-2024 [id number] HNO ID: [id number] Author: MICHELLE GOMEZ PT Service: ? Author Type: Physical Therapist Type: [id number] Filed: 03/16/2024 11:05 Note Text: [facility] Rehabilitation and Sports Therapy Physical Therapy Plan of Care Certification Patient Name: Wilmer Morley : 1940 [facility] #: [id number] Date: 03/16/2024 To: Tien Serrano MD From Therapist: Michelle Gomez PT RE: Patient Certification/ Recertification Your review, approval and electronic signature are required in order to comply with Payor: T MEDICARE / Plan: [employer] MEDICARE PPO / Product Type: PPO / [...] Patient to be seen for Therapeutic exercise (15026), Neuromuscular re-education (70991), Manual therapy (91181), Self-prison management (50434), Gait Training (38306), Therapeutic activities (43013) PLAN FOR NEXT VISIT: DC For further details regarding this patient refer to the Physical Therapy electronically documented visit dated 03/16/2024. Provider Attestation I have reviewed the treatment plan for Wilmer Morley, CCF# [id number] for the period of 03/16/24 -- 04/13/24, established on 03/16/2024. Signature certifies the need for therapy services. [facility] CNPNon 03-16-2024 CNPN Telephone (PHAMTE) -------- WILMER MORLEY ([id number]) 1940 M Date Time Provider Department 03/16/24 BEA ADAN During your visit today, we recorded the following information about you: Bea Adan [facility] 03/16/2024 5:08 PM Signed [facility] Ambulatory Pharmacy Anticoagulation Clinic Anticoagulation Episode Summary Anticoagulation Care Providers Provider Role Specialty Phone number Tien Serrano MD Referring Family Medicine [phone] Wilmer Morley is a 83 year old [...] ALLERGIES No Known Allergies 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: longterm (current) use of anticoagulants Atrial fibrillation, unspecified type (hcc) History of dvt (deep vein thrombosis) Anticoagulation Episode Summary Current INR goal: 2.0-3.0 Assessment: INR result of 2.6 is therapeutic Plan: Current Warfarin Dosing As of 03/16/2024 Full warfarin instructions: 7.5 mg every Mon, Fri; 5 mg all other days Sent Aquaporin message Advised patient to continue current weekly dose as noted above Next home INR check scheduled on 03/30/2024 Patient advised to call the PAC with any medication changes, bleeding/bruising concerns, recent changes in vitamin k consumption, if any procedures are coming up, if they have been ill or in the hospital, and if they have missed any doses of warfarin. Bea Adan [facility] Clinical Pharmacist, Pharmacy Anticoagulation Clinic Pharmacy Anticoagulation Clinic Pager: [phone]. Ghazal Bailey RPh 03/30/2024 11:05 AM Signed Patient was due to test INR today will continue to monitor for results. Ghazal Bailey PharmD Allergies As of Date: 03/16/2024 (No Known Allergies) Date Reviewed: 02/11/2024 Reviewed by: Bhavya Montaño RPFT - Fully Assessed Reason for Visit: Anticoagulation Telephone Fu [148] Cmt: INR Home Test Result Primary Visit Diagnosis:longterm (current) use of anticoagulants [Z79.01] Other Visit [...] Paroxysmal atrial fibrillation (HCC) [I48.0] 03/19/2015 04/11/2015 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 [Z79.*04/11/2015 Episodic lightheadedness [R42] 04/11/2015 01/21/2018 Bilateral edema of lower extremity [R60.0] 04/11/2015 01/10/2016 Venous (peripheral) insufficiency [I87.2] 04/11/2015 History of DVT (deep vein thrombosis) [Z86.718] 02/14/2016 Asymptomatic LV dysfunction [I51.9] 10/28/2016 longterm current use of antiarrhythmic medical*10/28/2016 Change in bowel movement [R19.8] 01/21/2018 03/14/2021 Stage 3a chronic kidney disease (HCC) [N18.31] (more content not included)... [facility] CNTHERAPYon 03-16-2024 CNTHERAPY OT/PT/Speech Visit (PTWS) -------- WILMER MORLEY ([id number]) 1940 M Date Time Provider Department 03/16/24 10:30 AM MICHELLE GOMEZ PTWS Date Time Provider Department [place] 03/16/2024 10:30 AM [id number] GOMEZ PTMAURY [employer] Reason for Visit: PT Progress Note [1596] [...] as needed. Take 1/2 tablet daily [facility] WILMER MORLEY ([id number]) 1940 M Date Time Provider Department 03/03/24 JINNY SHAH During your visit today, we recorded the following information about you: Jinny Shah, [facility] 03/03/2024 7:02 AM Signed [facility] Ambulatory Pharmacy Anticoagulation Clinic Anticoagulation Episode Summary Anticoagulation Care Providers Provider Role Specialty Phone number Tien Serrano MD Referring Family Medicine [phone] Wilmer Maxwelley is a 83 year old [...] ALLERGIES No Known Allergies 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: longterm (current) use of anticoagulants History of dvt (deep vein thrombosis) Anticoagulation Episode Summary Current INR goal: 2.0-3.0 Assessment: INR result of 2.3 is therapeutic Plan: Current Warfarin Dosing As of 03/03/2024 Full warfarin instructions: 7.5 mg every Mon, Fri; 5 mg all other days Sent Aquaporin message Advised patient to continue current weekly dose as noted above Next home INR check scheduled on 03/16/2024 Jinny Shah [facility] Clinical Pharmacist, Pharmacy Anticoagulation Clinic Pharmacy Anticoagulation Clinic Pager: [phone]. Allergies As of Date: 03/03/2024 (No Known Allergies) Date Reviewed: 02/11/2024 Reviewed by: Bhavya Montaño RPFT - Fully Assessed Reason for Visit: Anticoagulation Telephone Fu [148] Cmt: Home INR Primary Visit Diagnosis:longterm (current) use of anticoagulants [Z79.01] Other Visit [...] Paroxysmal atrial fibrillation (HCC) [I48.0] 03/19/2015 04/11/2015 longterm (current) use of anticoagulants [Z79.*04/11/2015 Episodic lightheadedness [R42] 04/11/2015 01/21/2018 Bilateral edema of lower extremity [R60.0] 04/11/2015 01/10/2016 Venous (peripheral) insufficiency [I87.2] 04/11/2015 History of DVT (deep vein thrombosis) [Z86.718] 02/14/2016 Asymptomatic LV dysfunction [I51.9] 10/28/2016 terminal make up operator current use of antiarrhythmic medical*10/28/2016 Change in bowel movement [R19.8] 01/21/2018 03/14/2021 Stage 3a chronic kidney disease (HCC) [N18.31] 04/08/2018 Hyperglycemia [R73.9] 03/14/2021 Hypertensive kidney disease with stage 3a chron*11/06/2021 10/31/2022 Hx of skin cancer, basal cell [Z85.828] 11/08/2021 Lightheaded [R42] 02/02/2024 Benign paroxysmal positional vertigo of right e*02/02/2024 Chronic obstructive pulmonary disease (HCC) [J4*02/12/2024 Encounter Status:Closed by JINNY SHAH on 03/03/24 [facility] CNTHERAPYon 02-29-2024 CNTHERAPY OT/PT/Speech Visit (PTWS) -------- WILMER MORLEY ([id number]) 1940 M Date Time Provider Department 02/29/24 12:30 PM MICHELLE GOMEZ PTWS Date Time Provider Department [place] 02/29/2024 12:30 PM [id number] GOMEZ Reason for Visit: Physical Therapy [503] [...] as needed. 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 PULMONARY FUNCTION LAB [facility] SPIROMETRY WITH DILATOR IF O BSTRUCTEDon 02-11-2024 ERV BOX (L) 0.62 L [facility] ERV PREDICTED (L) 1.25 L/S [facility] FEF25% POST (L/S) 2.53 L/S [facility] FEF25% PRE (L/S) 1.42 L/S [facility] PYT32-83% LLN (L/S) 0.72 L/S [facility] VKO18-27% POST (L/S) 1.06 L/S [facility] EHW15-10% PRE (L/S) 0.51 L/S [facility] UEF03-80% PREDICTED (L/S) 1.95 L/S [facility] FEF75% LLN (L/S) 0.16 L/S [facility] FEF75% POST (L/S) 0.49 L/S [facility] FEF75% PRE (L/S0 0.22 L/S [facility] FEF75% PREDICTED (L/S) 0.47 L/S [facility] FEF75% ULN (L/S) 1.38 L/S [facility] FET POST (S) 12.38 S [facility] FET PRE (S) 12.16 S [facility] FEV1 LLN (L) 1.97 L [facility] FEV1 PRE (L) 1.41 L [facility] FEV1 PREDICTED (L) 2.[address] [facility] FEV1 ULN (L) 3.46 L [facility] FEV1/FVC LLN (%) 61 % [facility] FEV1/FVC POST (%) 48 % [facility] FEV1/FVC PRE (%) 48 % [facility] FEV1/FVC PREDICTED (%) 75 % [facility] FEV1_POST (L) 1.81 L [facility] FRC Box (L) 8.33 L [facility] FVC LLN (L) 2.76 L [facility] FVC POST (L) 3.80 L [facility] FVC PRE (L) 2.95 L [facility] FVC PREDICTED (L) 3.75 L [facility] FVC ULN (L) 4.76 L [facility] IC BOX (L) 2.37 L [facility] IC PREDICTED (L) 2.50 L/S [facility] PEF LLN (L/S) 4.65 L/S [facility] PEF POST (L/S) 4.03 L/S [facility] PEF PRE (L/S) 3.85 L/S [facility] PEF ULN (L/S) 9.28 L/S [facility] RV Box (L) 7.78 L [facility] RV Box PREDICTED (L) 2.70 L [facility] RV/TLC Box (%) 73 % [facility] RV/TLC Box PREDICTED (%) 39 % [facility] SVC LLN (L) 2.76 L/S [facility] SVC PREDICTED (L) 3.75 L/S [facility] SVC ULN (L) 4.76 L/S [facility] TLC Box (L) 10.69 L [facility] TLC Box PREDICTED (L) 7.06 L [facility] VC (L) BOX 3.06 L [facility] XR Chest PA and Lateralon IMPRESSION: No acute radiographic abnormality. 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 Transcribe Date/Time: Feb 10 2024 2:59P Dictated by : AMENA GRACE MD This examination was interpreted and the report reviewed and electronically signed by: AMENA GRACE MD on Feb 10 2024 2:59PM [facility] DIVISION OF RADIOLOGY * * *Final Report* [...] in the spine. DIVISION OF RADIOLOGY Provider, [facility] - 02/10/2024 * * *Final Report* [...] spine. IMPRESSION IMPRESSION: No acute radiographic abnormality. Divisional Storekeeper: CRYSTAL Transcribe Date/Time: Feb 10 2024 2:59P Dictated by : AMENA GRACE MD This examination was interpreted and the report reviewed and electronically signed by: AMENA GRACE MD on Feb 10 2024 2:59PM EST [facility] Radiology Study observation (narrative) [facility] XR Chest PA and LateralOrder ed By: Ccf Provider on 02-10-2024 [facility] Cardiac echo study Procedure stress methodon 11-30-2023 [...] HR: 58 bpm Max Heart Rate (APMHR): 139.769499 bpm Max HR Achieved: 131 bpm Target HR (85% APMHR): 118.601504 bpm % of APMHR: 94.24 Recovery HR: [...] Resting HR: 58 bpmMax Heart Rate (APMHR): 139.352498 bpm Max HR Achieved: 131 bpmTarget HR (85% APMHR): 118.894059 bpm % of APMHR: 94.24 Recovery HR: [...] Age: Average Scale: Active Angina Score: None [facility] Radiology Study observation (narrative) [facility] Basic metabolic 2000 panelon 06-05-2024 Anion gap [Moles/Vol] 10 mmol/L 8 - 15 mmol/L [facility] Calcium [Mass/Vol] 9.6 mg/dL 8.5 - 10. 2 mg/dL [facility] Chloride [Moles/Vol] 104 mmol/L 98 - 10 7 mmol/L [facility] CO2 [Moles/Vol] 25 mmol/L 22 - 30 mmol/L [facility] Creatinine [Mass/Vol] 1.23 mg/dL High 0.73 - 1.22 mg/dL [facility] GFR/1.73 sq M.predicted among non-blacks MDRD (S/P/Bld) [Vol rate/Area] 59 mL/min/{1.73_m2} Low - PINF [facility] Comment on above: Estimated Glomerular Filtration Rate [...] 153 mg/dL High 74 - 99 mg/dL [facility] Comment on above: The [place] Diab[employer] Association (ADA) provides guidance for [...] Standards of Medical Care in Diabetes 2016, [place] [employer]. Diabetes Care. 2016.39(Suppl 1). Interpretation and review of laboratory results Abnormal [facility] Potassium [Moles/Vol] 4.5 mmol/L 3.7 - 5.1 mmol/L [facility] Sodium [Moles/Vol] 139 mmol/L 136 - 144 mmol/L [facility] Urea nitrogen [Mass/Vol] 29 mg/dL High 9 - 24 mg/dL [facility] Cardiac echo study Procedure on 04-22-2023 APPR [...] cm2 MR Vmax 5.19 m/s MV Dec Kerr 318.53 cm/s2 MV Decel. Time 259.10 (160-240 ms) Pulmonary Valve PV Peak Velocity 1.1 (0.5-1.5 m/s) DE End VMAX 1.9 m/s PV maxPG 4.5 [...] Aortic Root 4.08 cm M: 3.1 - 3.3BJLPO28 mL Aortic Root Index1.9 cm/f2ODCWX753.41 mL M: 62 - 150 Ascending Aorta 3.41 cm M: 2.6 - 3.4LV Volume Index53.50 mL/m2 M: 34 - 74 Ascending Aorta Index: 1.6 cm/m2LA Gvutsp94.9 mL Left Atrium 4.63 cm M: 3.0 [...] MVA PHT2.68 cm2MR Vmax5.19 m/s MV Dec Kerr 318.53 cm/s2MV Decel. Baqb868.10 (160-240 ms) Pulmonary Valve PV Peak Velocity1.1 (0.5-1.5 m/s)DE End VMAX1.9 m/s PV maxPG4.5 mmHgPV Vmax1.1 m/s Tricuspid Valve TR P. Velocity3.45 m/sRAP Estimate3 mmHg RVSP50.64 mmHgTR maxPG 47.64 mmHg S'0.15 m/s [facility] Radiology Study observation (narrative) [facility] XR CHEST 2V FRONTAL/LATon [facility] XR Chest PA and Lateralon IMPRESSION: No acute radiographic abnormality. Divisional Storekeeper: CRYSTAL Transcribe Date/Time: Apr 29 2022 4:42P [...] soft tissues: Unremarkable. DIVISION OF RADIOLOGY Provider, [facility] - 04/29/2022 * * *Final Report* [...] Unremarkable. IMPRESSION IMPRESSION: No acute radiographic abnormality. 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 Transcribe Date/Time: Apr 29 2022 4:42P Dictated by : PAUL ARGUETA MD This examination was interpreted and the report reviewed and electronically signed by: PAUL ARGUETA MD on Apr 29 2022 4:43PM EST [facility] Radiology Study observation (narrative) [facility] XR Chest PA and LateralOrder ed By: Ccf Provider on 04-29-2022 [facility] HbA1c (Bld)on 02-04-2022 Average glucose Estimated from glycated hemoglobin (Bld) [Mass/Vol] 120 mg/dL [facility] HbA1c (Bld) [Mass fraction] 5.8 % High 4.3 - 5.6 % [facility] UA DIP, URINE (POC)on 2021 BILIRUBIN UA (POCT) Negative Negative [facility] CLARITY UA (POCT) Clear [facility] COLOR UA (POCT) Yellow [facility] GLUCOSE UA (POCT) Negative Negative mg/dL [facility] HEMOGLOBIN/BLOOD UA (POCT) Trace-intact Abnormal Negative [facility] KETONE UA (POCT) Negative Negative mg/dL [facility] LEUKOCYTES UA (POCT) Negative [facility] NITRITE UA (POCT) Negative Negative [facility] PH UA (POCT) 6.0 4.5 - 8.0 [facility] Protein Ql (U) Negative Negative mg/dL [facility] SPECIFIC GRAVITY UA (POCT) 1.020 1.005 - 1.030 [facility] UROBILINOGEN UA (POCT) 0.2 E.U./dL Normal E.U./dL [facility] SURGICAL PATHOLOGYon 022 Case Report Surgical Pathology Report Case: [id number] Authorizing Provider: Cortney Miranda MD Collected: 01/22/2022 01:53 PM Ordering Location: General Surgery Received: 01/22/2022 02:21 PM Pathologist: Yazmin Browning MD Specimen: SKIN EXCISION, posterior scalp [facility] Clinical History skin lesion [facility] FINAL DIAGNOSIS A. Skin, excision, posterior scalp: - Seborrheic keratosis, irritated and inflamed. MP/HP 01/23/2022 [facility] Gross Description A. SKIN EXCISION Received in formalin is an unoriented elliptical segment of skin and subcutaneous tissue measuring 0.7 x 0.5 x 0.6 cm. The entire skin surface demonstrates an irregular salazar elevated, lobulated area. The marigns are inked black. The specimen is bisected. Totally submitted in one cassette. Gross examination performed at [facility], [address] [place], [place] [id number] FFS 01/23/2022 1:44 AM [facility] Performing Lab Diagnostic interpretation performed at [facility], [address] [place] [address] IA# [id number] Stitch Welder: Alfonso Dugan M.D. [facility] XR Chest PA and Lateralon IMPRESSION: No acute radiographic abnormality. Divisional Storekeeper: CRYSTAL Transcribe Date/Time: Oct 11 2021 11:14A [...] thoracic spine. [id number] E_DIVISION OF RADIOLOGY Provider, [facility] - 10/11/2021 * * *Final Report* [...] spine. IMPRESSION IMPRESSION: No acute radiographic abnormality. 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 Transcribe Date/Time: Oct 11 2021 11:14A Dictated by : FANNIE SCOTT MD This examination was interpreted and the report reviewed and electronically signed by: FANNIE SCOTT MD on Oct 11 2021 11:14AM EST [facility] XR Chest PA and LateralOrder ed By: Ccf Provider on 10-11-2021 [facility] XR Chest PA and Lateralon Radiology Study observation (narrative) [facility] INR FINGERSTICK B/Oon 2021 INR Coag (Bld) [Relative time] 2.9 {INR} [facility] Quality Check Yes [facility] INR FINGERSTICK B/Oon 2021 INR Coag (Bld) [Relative time] 3.2 {INR} [facility] Quality Check No [facility] ECHOCARDIOGRAMon 11-10-2019 APPR [facility] REPORT Conclusion Mild [...] ms MVA PHT 3.91 cm2 MV Dec Kerr 509.07 cm/s2 MV Decel. Time 214.17 (160-240 ms) Pulmonary Valve PV Peak Velocity 1.1 (0.5-1.5 m/s) DE End VMAX 2.4 m/s PV maxPG 5.1 mmHg PV Vmax 1.1 m/s DE End PG 5.21 mmHg Tricuspid Valve TR P. Velocity 3.19 m/s RAP Estimate 3 mmHg RVSP 43.80 mmHg TR maxPG 40.80 mmHg [employer] User, Interfaces - 11/10/2019 12:09 PM EDT [...] Aortic Root 3.76 cm M: 3.1 - 3.3DVZG58 mL Aortic Root Index1.8 cm/m2LV Cdjlza583.64 mL M: 62 - 150 Ascending Aorta [...] Ratio1.29MV PHT56.26 ms MVA PHT3.91 cm2MV Dec Kerr 509.07 cm/s2 MV Decel. Jrmw268.17 (160-240 ms) Pulmonary Valve PV Peak Velocity1.1 (0.5-1.5 m/s)DE End VMAX2.4 m/s PV maxPG5.1 mmHgPV Vmax1.1 m/s DE End PG 5.21 mmHg Tricuspid Valve TR P. Velocity3.19 m/sRAP Estimate3 mmHg RVSP43.80 mmHgTR maxPG 40.80 mmHg [facility] Vital Signs Date Time Vital Sign Value Performing Clinician Facility 01-17-2025 09:00-0400 Diastolic blood pressure 62 mm[Hg] Michelle Gomez PT [facility] 01-17-2025 09:00-0400 Heart rate 71 /min Michelle Gomez PT [facility] 01-17-2025 09:00-0400 SaO2% (BldA) [Mass fraction] 96 % Michelle Gomez PT [facility] 01-17-2025 09:00-0400 Systolic blood pressure 125 mm[Hg] Michelle Gomez PT [facility] 01-16-2025 15:40-0400 Body height 177.8 cm Iglesia DOE Work Phone: [facility] 01-16-2025 15:40-0400 Body mass index (BMI) [Ratio] 29.5 kg/m2 Iglesia DOE Work Phone: [facility] 01-16-2025 15:40-0400 Body temperature 98.3 [degF] Iglesia DOE Work Phone: [facility] 01-16-2025 15:40-0400 Body weight 93.49 kg Iglesia Lara PA Work Phone: [facility] 01-16-2025 15:40-0400 Diastolic blood pressure 60 mm[Hg] Iglesia Lara PA Work Phone: [facility] 01-16-2025 15:40-0400 Heart rate 100 /min Iglesia Lara PA Work Phone: [facility] 01-16-2025 15:40-0400 Respiratory rate 18 /min Iglesia Lara PA Work Phone: [facility] 01-16-2025 15:40-0400 SaO2% (BldA) [Mass fraction] 96 % Iglesia Lara PA Work Phone: [facility] 01-16-2025 15:40-0400 Systolic blood pressure 110 mm[Hg] Iglesia Lara PA Work Phone: [facility] 12-07-2024 09:01-0400 Body mass index (BMI) [Ratio] 29.7 kg/m2 Tien Serrano MD Work Phone: [facility] 12-07-2024 09:01-0400 Body weight 93.89 kg Tien Serrano MD Work Phone: [facility] 12-07-2024 09:01-0400 Diastolic blood pressure 58 mm[Hg] Tien Serrano MD Work Phone: [facility] 12-07-2024 09:01-0400 Heart rate 49 /min Tien Serrano MD Work Phone: [facility] 12-07-2024 09:01-0400 SaO2% (BldA) [Mass fraction] 98 % Tien Serrano MD Work Phone: [facility] 12-07-2024 09:01-0400 Systolic blood pressure 118 mm[Hg] Tien Serrano MD Work Phone: [facility] 11-14-2024 08:55-0400 Body mass index (BMI) [Ratio] 29.18 kg/m2 Lia Griffin MD Work Phone: [facility] 11-14-2024 08:55-0400 Body weight 92.26 kg Lia Griffin MD Work Phone: [facility] 11-14-2024 08:55-0400 Diastolic blood pressure 74 mm[Hg] Lia Griffin MD Work Phone: [facility] 11-14-2024 08:55-0400 Heart rate 81 /min Lia Griffin MD Work Phone: [facility] 11-14-2024 08:55-0400 Respiratory rate 17 /min Lia Griffin MD Work Phone: [facility] 11-14-2024 08:55-0400 SaO2% (BldA) [Mass fraction] 94 % Lia Griffin MD Work Phone: [facility] 11-14-2024 08:55-0400 Systolic blood pressure 136 mm[Hg] Lia Griffin MD Work Phone: [facility] 11-02-2024 10:22-0400 Body height 177.8 cm Tien Serrano MD Work Phone: [facility] 11-02-2024 10:22-0400 Body mass index (BMI) [Ratio] 29.64 kg/m2 Tien Serrano MD Work Phone: [facility] 11-02-2024 10:22-0400 Body weight 93.71 kg Tien Serrano MD Work Phone: [facility] 11-02-2024 10:22-0400 Diastolic blood pressure 58 mm[Hg] Tien Serarno MD Work Phone: [facility] 11-02-2024 10:22-0400 Heart rate 79 /min Tien Serrano MD Work Phone: [facility] Comment on above: Irregular 11-02-2024 10:22-0400 SaO2% (BldA) [Mass fraction] 95 % Tien Serrano MD Work Phone: [facility] 11-02-2024 10:22-0400 Systolic blood pressure 110 mm[Hg] Tien Serrano MD Work Phone: [facility] 10-10-2024 19:15-0400 Body mass index (BMI) [Ratio] 29.7 kg/m2 Tien Serrano MD Work Phone: [facility] 10-10-2024 19:15-0400 Body weight 93.89 kg Tien Serrano MD Work Phone: [facility] 10-10-2024 19:15-0400 Diastolic blood pressure 68 mm[Hg] Tien Serrano MD Work Phone: [facility] 10-10-2024 19:15-0400 Heart rate 60 /min Tien Serrano MD Work Phone: [facility] 10-10-2024 19:15-0400 SaO2% (BldA) [Mass fraction] 95 % Tien Serrano MD Work Phone: [facility] 10-10-2024 19:15-0400 Systolic blood pressure 138 mm[Hg] Tien Serrano MD Work Phone: [facility] 05-02-2024 15:19-0500 Body mass index (BMI) [Ratio] 31.14 kg/m2 Tien Serrano MD Work Phone: [facility] 05-02-2024 15:19-0500 Body weight 98.43 kg Tien Serrano MD Work Phone: [facility] 05-02-2024 15:19-0500 Diastolic blood pressure 62 mm[Hg] Tien Serrano MD Work Phone: [facility] 05-02-2024 15:19-0500 Heart rate 49 /min Tien Serrano MD Work Phone: [facility] 05-02-2024 15:19-0500 SaO2% (BldA) [Mass fraction] 97 % Tien Serrano MD Work Phone: [facility] 05-02-2024 15:19-0500 Systolic blood pressure 122 mm[Hg] Tien Serrano MD Work Phone: [facility] 03-30-2024 09:00-0400 Diastolic blood pressure 47 mm[Hg] Michelle O'Ysah PT [facility] 03-30-2024 09:00-0400 Heart rate 61 /min Michelle O'Yash PT [facility] 03-30-2024 09:00-0400 SaO2% (BldA) [Mass fraction] 95 % Michelle O'Yash PT [facility] 03-30-2024 09:00-0400 Systolic blood pressure 137 mm[Hg] Michelle O'Yash PT [facility] 03-23-2024 15:44-0400 Diastolic blood pressure 70 mm[Hg] Katy Haagen CLINICAL UNIT EDUCATOR.SR. OPERATIONS MANAGER Work Phone: [facility] 03-23-2024 15:44-0400 Heart rate 54 /min Katy Haagen CLINICAL UNIT EDUCATOR.SR. OPERATIONS MANAGER Work Phone: [facility] 03-23-2024 15:44-0400 Respiratory rate 16 /min Katy Haagen CLINICAL UNIT EDUCATOR.SR. OPERATIONS MANAGER Work Phone: [facility] 03-23-2024 15:44-0400 SaO2% (BldA) [Mass fraction] 96 % Katy Galdamez CLINICAL UNIT EDUCATOR.SR. OPERATIONS MANAGER Work Phone: [facility] 03-23-2024 15:44-0400 Systolic blood pressure 142 mm[Hg] Katy Rudolph ROBERTN.SR. OPERATIONS MANAGER Work Phone: [facility] 02-15-2024 09:00-0400 Diastolic blood pressure 58 mm[Hg] Michelle O'Yash PT [facility] 02-15-2024 09:00-0400 Heart rate 69 /min Michelle O'Yash PT [facility] 02-15-2024 09:00-0400 SaO2% (BldA) [Mass fraction] 98 % Michelle O'Yash PT [facility] 02-15-2024 09:00-0400 Systolic blood pressure 153 mm[Hg] Michelle O'Yash PT [facility] 02-11-2024 13:09-0400 Body height 177.8 cm Pulm Wstr Work Phone: [facility] 02-11-2024 13:09-0400 Body mass index (BMI) [Ratio] 29.99 kg/m2 Pulm Wstr Work Phone: [facility] 02-11-2024 13:09-0400 Body weight 94.8 kg Pulm Wstr Work Phone: [facility] 02-11-2024 13:09-0400 Diastolic blood pressure 57 mm[Hg] Pulm Wstr Work Phone: [facility] 02-11-2024 13:09-0400 Heart rate 66 /min Pulm Wstr Work Phone: [facility] 02-11-2024 13:09-0400 Respiratory rate 14 /min Pulm Wstr Work Phone: [facility] 02-11-2024 13:09-0400 SaO2% (BldA) [Mass fraction] 96 % Pulm Wstr Work Phone: [facility] 02-11-2024 13:09-0400 Systolic blood pressure 149 mm[Hg] Pulm Wstr Work Phone: [facility] 02-10-2024 11:23-0400 Body height 180.3 cm Tien Serrano MD Work Phone: [facility] 02-10-2024 11:23-0400 Body mass index (BMI) [Ratio] 29.15 kg/m2 Tien Serrano MD Work Phone: [facility] 02-10-2024 11:23-0400 Body weight 94.8 kg Tien Serrano MD Work Phone: [facility] 02-10-2024 11:23-0400 Diastolic blood pressure 56 mm[Hg] Tien Serrano MD Work Phone: [facility] 02-10-2024 11:23-0400 Heart rate 72 /min Tien Serrano MD Work Phone: [facility] 02-10-2024 11:23-0400 SaO2% (BldA) [Mass fraction] 96 % Tien Serrano MD Work Phone: [facility] 02-10-2024 11:23-0400 Systolic blood pressure 144 mm[Hg] Tien Serrano MD Work Phone: [facility] 12-29-2023 15:33-0400 Body height 180.3 cm Tien Serrano MD Work Phone: [facility] 12-29-2023 15:33-0400 Body mass index (BMI) [Ratio] 29.71 kg/m2 Tien Serrano MD Work Phone: [facility] 12-29-2023 15:33-0400 Body weight 96.62 kg Tien Serrano MD Work Phone: [facility] 12-29-2023 15:33-0400 Diastolic blood pressure 54 mm[Hg] Tien Serrano MD Work Phone: [facility] 12-29-2023 15:33-0400 Heart rate 64 /min Tien Serrano MD Work Phone: [facility] 12-29-2023 15:33-0400 SaO2% (BldA) [Mass fraction] 96 % Tien Serrano MD Work Phone: [facility] 12-29-2023 15:33-0400 Systolic blood pressure 128 mm[Hg] Tien Serrano MD Work Phone: [facility] 11-11-2023 09:38-0400 Body height 180.3 cm Tien Serrano MD Work Phone: [facility] 11-11-2023 09:38-0400 Body mass index (BMI) [Ratio] 29.01 kg/m2 Tien Serrano MD Work Phone: [facility] 11-11-2023 09:38-0400 Body weight 94.35 kg Tien Serrano MD Work Phone: [facility] 11-11-2023 09:38-0400 Diastolic blood pressure 68 mm[Hg] Tien Serrano MD Work Phone: [facility] 11-11-2023 09:38-0400 Heart rate 76 /min Tien Serrano MD Work Phone: [facility] 11-11-2023 09:38-0400 Systolic blood pressure 178 mm[Hg] Tien Serrano MD Work Phone: [facility] 03-27-2023 08:55-0400 Body weight 92.53 kg NA Ruiz PA-C Work Phone: [facility] 03-27-2023 08:55-0400 Diastolic blood pressure 62 mm[Hg] NA Ruiz PA-C Work Phone: [facility] 03-27-2023 08:55-0400 Heart rate 64 /min NA Ruiz PA-C Work Phone: [facility] 03-27-2023 08:55-0400 Respiratory rate 16 /min NA Ruiz PA-C Work Phone: [facility] 03-27-2023 08:55-0400 SaO2% (BldA) [Mass fraction] 95 % NA Ruiz PA-C Work Phone: [facility] 03-27-2023 08:55-0400 Systolic blood pressure 144 mm[Hg] NA Ruiz PA-C Work Phone: [facility] 02-19-2023 13:55-0400 Body weight 94.8 kg NA Ruiz PA-C Work Phone: [facility] 02-19-2023 13:55-0400 Diastolic blood pressure 80 mm[Hg] NA Ruiz PA-C Work Phone: [facility] 02-19-2023 13:55-0400 Heart rate 64 /min NA Ruiz PA-C Work Phone: [facility] 02-19-2023 13:55-0400 Respiratory rate 16 /min NA Ruiz PA-C Work Phone: [facility] 02-19-2023 13:55-0400 SaO2% (BldA) [Mass fraction] 98 % NA Ruiz PA-C Work Phone: [facility] 02-19-2023 13:55-0400 Systolic blood pressure 150 mm[Hg] NA Ruiz PA-C Work Phone: [facility] 11-24-2022 09:19-0400 Diastolic blood pressure 62 mm[Hg] Katy Haagen CLINICAL UNIT EDUCATOR.SR. OPERATIONS MANAGER Work Phone: [facility] 11-24-2022 09:19-0400 Heart rate 63 /min Katy Haagen CLINICAL UNIT EDUCATOR.SR. OPERATIONS MANAGER Work Phone: [facility] 11-24-2022 09:19-0400 Respiratory rate 16 /min Katy Haagen CLINICAL UNIT EDUCATOR.SR. OPERATIONS MANAGER Work Phone: [facility] 11-24-2022 09:19-0400 SaO2% (BldA) [Mass fraction] 96 % Katy Haagen CLINICAL UNIT EDUCATOR.SR. OPERATIONS MANAGER Work Phone: [facility] 11-24-2022 09:19-0400 Systolic blood pressure 150 mm[Hg] Katy Haagen CLINICAL UNIT EDUCATOR.SR. OPERATIONS MANAGER Work Phone: [facility] 04-29-2022 15:21-0500 Diastolic blood pressure 74 mm[Hg] Tien Serrano MD Work Phone: [facility] 04-29-2022 15:21-0500 Systolic blood pressure 136 mm[Hg] Tien Serrano MD Work Phone: [facility] 04-29-2022 14:46-0500 Body weight 95.25 kg Tien Serrano MD Work Phone: [facility] 04-29-2022 14:46-0500 Heart rate 66 /min Tien Serrano MD Work Phone: [facility] 04-29-2022 14:46-0500 Respiratory rate 16 /min Tien Serrano MD Work Phone: [facility] 04-29-2022 14:46-0500 SaO2% (BldA) [Mass fraction] 95 % Tien Serrano MD Work Phone: [facility] 01-30-2022 10:35-0400 Body height 180.3 cm NA Ruiz PA-C Work Phone: [facility] 01-30-2022 10:35-0400 Body temperature 98.4 [degF] NA Ruiz PA-C Work Phone: [facility] 01-30-2022 10:35-0400 Body weight 93.44 kg NA Ruiz PA-C Work Phone: [facility] 01-30-2022 10:35-0400 Diastolic blood pressure 60 mm[Hg] NA Ruiz PA-C Work Phone: [facility] 01-30-2022 10:35-0400 Heart rate 72 /min NA Ruiz PA-C Work Phone: [facility] 01-30-2022 10:35-0400 SaO2% (BldA) [Mass fraction] 96 % NA Ruiz PA-C Work Phone: [facility] 01-30-2022 10:35-0400 Systolic blood pressure 144 mm[Hg] NA Ruiz PA-C Work Phone: [facility] 01-15-2022 14:57-0400 Body height 180.3 cm Cortney Miranda MD Work Phone: [facility] 01-15-2022 14:57-0400 Body temperature 99.3 [degF] Cortney Miranda MD Work Phone: [facility] 01-15-2022 14:57-0400 Body weight 94.8 kg Cortney Miranda MD Work Phone: [facility] 01-15-2022 14:57-0400 Diastolic blood pressure 70 mm[Hg] Cortney Miranda MD Work Phone: [facility] 01-15-2022 14:57-0400 Heart rate 53 /min Cortney Miranda MD Work Phone: [facility] 01-15-2022 14:57-0400 SaO2% (BldA) [Mass fraction] 95 % Cortney Miranda MD Work Phone: [facility] 01-15-2022 14:57-0400 Systolic blood pressure 149 mm[Hg] Cortney Miranda MD Work Phone: [facility] 11-08-2021 12:00-0400 Diastolic blood pressure 73 mm[Hg] Tien Serrano MD Work Phone: [facility] 11-08-2021 12:00-0400 Heart rate 55 /min Tien Serrano MD Work Phone: [facility] 11-08-2021 12:00-0400 Systolic blood pressure 163 mm[Hg] Tien Serrano MD Work Phone: [facility] 11-08-2021 11:05-0400 Body weight 96.62 kg Tien Serrano MD Work Phone: [facility] 11-11-2018 10:53-0400 BMI (Body Mass Index) 29.99 kg/m2 [employer] 11-11-2018 10:53-0400 Body weight 94.8 kg [employer] 11-11-2018 10:53-0400 BP Diastolic 64 mm[Hg] [employer] 11-11-2018 10:53-0400 BP Systolic 130 mm[Hg] [employer] 11-11-2018 10:53-0400 Height 177.8 cm [employer] 11-11-2018 10:53-0400 Pulse (Heart Rate) 68 /min [facility] 11-11-2018 10:53-0400 Pulse Oximetry 98 % [facility] 11-11-2018 10:53-0400 Respiratory Rate 16 /min [facility] Encounters Encounter Date Encounter Type Care Provider Facility Start: 02-21-2025 End: 02-21-2025 Refill Tien Serrano MD Work Phone: [facility] Comment on above: Refill Request Start: 02-20-2025 End: 02-20-2025 Telephone encounter Namita Antonieta [facility] Comment on above: Anticoagulation Tele phone Fu (Home INR Result ) Start: 02-07-2025 End: 02-07-2025 Telephone encounter Arabella John [facility] Comment on above: Anticoagulation Tele phone Fu (Home INR result) Start: 01-26-2025 End: 01-26-2025 ambulatory TIEN SERRANO Facility:[facility] Start: 01-23-2025 End: 01-23-2025 Telephone encounter Namita Gee [facility] Comment on above: Anticoagulation Tele phone Fu (Home INR Result ) Start: 01-19-2025 End: 01-28-2025 Telephone encounter Tien Serrano MD Work Phone: [facility] Comment on above: Results Start: 01-17-2025 End: 01-17-2025 ambulatory Michelle Gomez PT [facility] Physical Therapy Comment on above: Vertigo (Primary Dx) Start: 01-16-2025 End: 01-16-2025 ambulatory Iglesia Lara [facility] Start: 01-16-2025 End: 01-16-2025 Patient encounter procedure Iglesia Lara PA [facility] Work Phone: Start: 01-16-2025 End: 01-16-2025 Patient encounter procedure Blayne Davis APRN.[facility] Work Phone: [facility] Comment on above: Visit for suture rem oval (Primary Dx) Start: 01-16-2025 End: 01-16-2025 ambulatory TIEN SERRANO Facility:[facility] Start: 01-10-2025 End: 01-11-2025 ambulatory TIEN SERRANO Facility:[facility] Start: 01-09-2025 End: 01-09-2025 Telephone encounter Namita Gee [facility] Comment on above: Anticoagulation Tele phone Fu (Home INR Result ) Start: 01-05-2025 ambulatory TIEN HEAD [facility] Start: 12-30-2024 End: 01-02-2025 Refill Tien Serrano MD Work Phone: [facility] Comment on above: Refill Request Start: 12-22-2024 End: 12-22-2024 Telephone encounter Jinny Shah [facility] Comment on above: Anticoagulation Tele phone Fu (Home INR) Start: 12-15-2024 End: 02-14-2025 Follow-up encounter Tien Serrano MD Work Phone: Pulmonology [facility] Start: 12-15-2024 End: 12-15-2024 ambulatory TIEN SERRANO Facility:[facility] Start: 12-08-2024 End: 02-07-2025 Follow-up encounter Tien Serrano MD Work Phone: [facility] Start: 12-07-2024 End: 12-07-2024 Telephone encounter Ghazal Bailey [facility] Comment on above: Anticoagulation Tele phone Fu (Home INR result) Start: 12-07-2024 End: 12-07-2024 ambulatory TIEN SERRANO Facility:[facility] Start: 12-07-2024 End: 12-07-2024 Patient encounter procedure Tien Serrano MD Work Phone: [facility] Comment on above: Vertigo (Primary Dx) ; Atrial fibrillation, unspecified type (HCC); Essential hypertension, benign; Chronic obstructive pulmonary disease, unspecified COPD type (HCC); Stage 3a chronic kidney disease (HCC); Hyperglycemia; longterm (current) use of anticoagulants; History of DVT (deep vein thrombosis); Pulmonary HTN (HCC); Congestive heart failure, unspecified HF chronicity, unspecified heart failure type ([facility]); MARY BETH (obstructive sleep apnea) Start: 12-07-2024 End: 12-07-2024 ambulatory TIEN SERRAON Facility:[facility] Start: 11-28-2024 End: 11-28-2024 Refill Tien Serrano MD Work Phone: [facility] Comment on above: Refill Request Start: 11-22-2024 End: 11-22-2024 Telephone encounter Arabella Lopez [facility] Comment on above: Anticoagulation Tele phone Fu (Home INR result) Start: 11-18-2024 [facility] Start: 11-18-2024 End: 11-18-2024 Subsequent hospital visit by physician Tien Head DO Work Phone: [facility] Echocardiography Comment on above: Arrived Start: 11-14-2024 End: 11-14-2024 Patient encounter procedure Lia Griffin MD Work Phone: Pulmonary Medicine Comment on above: COPD, moderate (HCC) (Primary Dx); Former cigarette smoker; Moderate pulmonary hypertension (HCC) Start: 11-14-2024 End: 11-14-2024 ambulatory TIEN SERRANO Facility:[facility] Start: 11-09-2024 [facility]ulatory [facility] Start: 11-08-2024 End: 11-08-2024 Telephone encounter Tien Serrano MD Work Phone: [facility] Comment on above: Results Start: 11-07-2024 End: 11-07-2024 Telephone encounter Namita Gee [facility] Comment on above: Anticoagulation Tele phone Fu (Home INR Result ) Refill Request Start: 11-07-2024 End: 11-07-2024 ambulatory TIEN SERRANO Facility:[facility] Start: 11-02-2024 End: 11-02-2024 Patient encounter procedure [...] of breath) Start: 11-02-2024 End: 11-02-2024 ambulatory [facility] Facility:[facility] Start: 11-01-2024 End: 11-01-2024 ambulatory [facility] Facility:[facility] Start: 10-28-2024 End: 11-02-2024 Telephone encounter Tien Serrano MD Work Phone: [facility] Comment on above: Results Start: 10-27-2024 End: 10-27-2024 ambulatory [facility] Facility:[facility] Start: 10-20-2024 End: 10-20-2024 Telephone encounter Jinny Shah [facility] Comment on above: Anticoagulation Tele phone Fu (Home INR) Start: 10-12-2024 End: 12-12-2024 Follow-up encounter Tien Serrano MD Work Phone: [facility] Start: 10-11-2024 ambulatory [facility] Facility :[facility] Start: 10-11-2024 End: 10-11-2024 Subsequent hospital visit by physician Tyrell [facility] Polanco Work Phone: Radiology Comment on above: SOB (shortness of br eath) [R06.02] Start: 10-10-2024 End: 10-10-2024 Patient encounter procedure Tien Serrano MD Work Phone: [facility] Comment on above: COPD with exacerbati on (HCC) (Primary Dx); Atrial fibrillation, unspecified type (HCC); Essential hypertension, benign; Moderate mitral regurgitation; Moderate tricuspid regurgitation; Chronic obstructive pulmonary disease, unspecified COPD type (HCC); Stage 3a chronic kidney disease (HCC); Hyperglycemia; 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; History of DVT (deep vein thrombosis); longterm 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; SOB (shortness of breath) Start: 10-10-2024 End: 10-10-2024 ambulatory [facility] Start: 10-10-2024 End: 10-10-2024 Telephone encounter [facility] Comment on above: Anticoagulation Start: 10-04-2024 End: 10-04-2024 Refill Tien Serrano MD Work Phone: [facility] Comment on above: Refill Request Start: 09-22-2024 End: 09-22-2024 Telephone encounter Jinny Shah [facility] Comment on above: Anticoagulation Tele phone Fu (Home INR) Start: 09-06-2024 End: 09-06-2024 Telephone encounter Arabella Lopez [facility] Comment on above: Anticoagulation Tele phone Fu (Home INR result) Start: 08-18-2024 End: 08-19-2024 Refill Tien Serrano MD Work Phone: [facility] Comment on above: Refill Request Start: 08-17-2024 End: 08-17-2024 Telephone encounter Ghazal Smithcheko [facility] Comment on above: Anticoagulation Tele phone Fu (Home INR result ) Start: 08-02-2024 End: 08-02-2024 Telephone encounter Arabella John [facility] Comment on above: Anticoagulation Tele phone Fu (Home INR result) Start: 07-15-2024 End: 07-15-2024 Telephone encounter Arabella John [facility] Comment on above: Anticoagulation Tele phone Fu (Home INR result) Start: 06-29-2024 End: 06-29-2024 Telephone encounter Ghazal Smithcheko [facility] Comment on above: Anticoagulation Tele phone Fu (Home INR result ) Start: 06-27-2024 End: 06-27-2024 Refill Tien Serrano MD Work Phone: [facility] Comment on above: Refill Request Start: 06-14-2024 End: 06-14-2024 Telephone encounter Arabella Lopez [facility] Start: 06-09-2024 End: 06-09-2024 Refill Alejandrina Quigley APRN.CNP Work Phone: [facility] Comment on above: Refill Request Start: 05-24-2024 End: 05-24-2024 Telephone encounter Arabella Lopez [facility] Telemanagement Comment on above: Anticoagulation Tele phone Fu (Home INR result) Start: 05-10-2024 ambulatory TIEN HEAD [facility] Start: 05-09-2024 End: 05-09-2024 Telephone encounter Namita Antonieta [facility] Ambulatory Telemanagement Comment on above: Anticoagulation Tele phone Fu (Home INR Result ) Start: 05-02-2024 End: 05-02-2024 Patient encounter procedure Tien Serrano MD Work Phone: [facility] [place] Comment on above: Chronic obstructive pulmonary disease, unspecified COPD type (HCC) (Primary Dx); Atrial fibrillation, unspecified type (HCC); Essential hypertension, benign; Stage 3a chronic kidney disease (HCC); Generalized anxiety disorder; Anxiety; Encounter for immunization; Hyperglycemia Start: 05-02-2024 End: 05-02-2024 ambulatory TIEN SERRANO Facility:[facility] Start: 04-20-2024 End: 04-20-2024 Telephone encounter Ghazal Bailey [facility] Ambulatory Telemanagement Comment on above: Anticoagulation Tele phone Fu (Home INR results ) Start: 04-01-2024 End: 04-01-2024 Refill Tien Serrano MD Work Phone: [facility] Comment on above: Refill Request Start: 03-31-2024 End: 03-31-2024 Telephone encounter Jinny Shah [facility] Ambulatory Telemanagement Comment on above: Anticoagulation Tele phone Fu (Home INR) Start: 03-30-2024 End: 03-30-2024 ambulatory Michelle Gomez PT [place] [facility] Physical Therapy Comment on above: Lightheaded (Primary Dx); Benign paroxysmal positional vertigo of right ear Start: 03-23-2024 End: 03-23-2024 Office outpatient visit 25 minutes Katy Galdamez APRN.CNP Work Phone: [facility] [place] Comment on above: Chronic obstructive pulmonary disease, unspecified COPD type (HCC) (Primary Dx); Irritable bowel syndrome with diarrhea Start: 03-23-2024 End: 03-23-2024 ambulatory KATY GALDAMEZ Facility:[facility] Start: 03-16-2024 End: 03-16-2024 Telephone encounter Bea Adan [facility] Ambulatory Telemanagement Comment on above: Anticoagulation Tele phone Fu (INR Home Test Result) Start: 03-16-2024 End: 03-16-2024 ambulatory Michelle O'Yash PT [facility] Comment on above: Lightheaded (Primary Dx); Benign paroxysmal positional vertigo of right ear Start: 03-03-2024 End: 03-03-2024 Telephone encounter Jinny Shah [facility] Ambulatory Telemanagement Comment on above: Anticoagulation Tele phone Fu (Home INR) Start: 02-29-2024 End: 02-29-2024 ambulatory Michelle O'Yash PT [facility] Comment on above: Lightheaded (Primary Dx); Benign paroxysmal positional vertigo of right ear Start: 02-18-2024 End: 02-18-2024 Telephone encounter Jinny Shah [facility] Comment on above: Anticoagulation Tele phone Fu (Home INR) Start: 02-15-2024 End: 02-15-2024 ambulatory Michelle O'Yash PT [facility] Comment on above: Lightheaded (Primary Dx); Benign paroxysmal positional vertigo of right ear Start: 02-12-2024 End: 02-12-2024 Telephone encounter Tien Serrano MD Work Phone: [facility] Comment on above: Results Start: 02-11-2024 End: 02-11-2024 ambulatory Pulm Lab [facility] Work Phone: PULM LAB [facility] Comment on above: Spirometry Start: 02-11-2024 End: 02-11-2024 Patient encounter procedure Pulm Lab [facility] Work Phone: PULM LAB [facility] Start: 02-10-2024 End: 02-10-2024 Subsequent hospital visit by physician Xr [facility] [place] Work Phone: Radiology Comment on above: Lightheadedness [R42 ] Start: 02-10-2024 End: 02-10-2024 Patient encounter procedure Tien Serrano MD Work Phone: [facility] Comment on above: SOB (shortness of br eath) (Primary Dx); Lightheadedness; Lightheaded Start: 02-04-2024 End: 02-04-2024 Telephone encounter Jamie Zelayazman [facility] Ambulatory Telemanagement Comment on above: Anticoagulation Tele phone Fu Start: 02-02-2024 End: 02-02-2024 ambulatory Michelle Gomez PT [place] [facility] Physical Therapy Comment on above: Lightheaded (Primary Dx); Benign paroxysmal positional vertigo of right ear Refill Request Start: 01-30-2024 End: 02-01-2024 Get Medical Advice Tien Serrano MD Work Phone: [facility] [place] Comment on above: Refill for flecainid e Start: 01-28-2024 End: 01-29-2024 Refill Tien Serrano MD Work Phone: [facility] Comment on above: Refill Request Start: 01-21-2024 Telephone encounter Jinny adams [facility] Ambulatory Telemanagement Comment on above: Anticoagulation Tele phone Fu (Home INR) Start: 01-09-2024 Refill Tien Serrano MD Work Phone: [facility] Comment on above: Refill Request Start: 01-05-2024 End: 06-29-2024 Telephone encounter Pharmacist [facility] Comment on above: Patient Update (Note s request) Start: 01-04-2024 Telephone encounter Namita [facility] Ambulatory Telemanagement Comment on above: Anticoagulation Tele phone Fu (Home INR Result ) Start: 12-29-2023 End: 12-29-2023 Patient encounter procedure Tien Serrano MD Work Phone: [facility] Comment on above: Lightheaded (Primary Dx); Atrial fibrillation, unspecified type (HCC); Essential hypertension, benign; Moderate mitral regurgitation; Moderate tricuspid regurgitation; Hyperglycemia; Generalized anxiety disorder; History of DVT (deep vein thrombosis); Benign paroxysmal positional vertigo of right ear; SOB (shortness of breath) Start: 12-18-2023 Telephone encounter Arabella Lopez [facility] Ambulatory Telemanagement Comment on above: Anticoagulation Tele phone Fu (Home INR result) Start: 12-03-2023 Telephone encounter Jinny adams [facility] Ambulatory Telemanagement Comment on above: Anticoagulation Tele phone Fu (Home INR) Start: 11-30-2023 End: 11-30-2023 Subsequent hospital visit by physician Tien Head DO Work Phone: [facility] Echocardiography Comment on above: Arrived Start: 11-27-2023 Telephone encounter Arabella Wilidaniel RPh P harmacy Ambulatory Telemanagement Comment on above: Anticoagulation Tele phone Fu (Home INR result) Start: 11-12-2023 Telephone encounter Tien Serrano MD Work Phone: [facility] [place] Comment on above: Results Start: 11-11-2023 End: 11-11-2023 Patient encounter procedure Tien Serrano MD Work Phone: [facility] [place] Comment on above: Atrial fibrillation, unspecified type (HCC) (Primary Dx); Essential hypertension, benign; Moderate mitral regurgitation; Stage 3a chronic kidney disease (HCC); Hyperglycemia; Hx of skin cancer, basal cell; Generalized anxiety disorder; 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; terminal make up operator 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; Balance problem; Impacted cerumen of left ear Start: 10-30-2023 Telephone encounter Ghazal Sanches [facility] Comment on above: Anticoagulation Tele phone Fu Start: 10-15-2023 Refill Tien Serrano MD Work Phone: [facility] [place] Comment on above: Refill Request Start: 10-13-2023 Telephone encounter Arabella Lopez RPh [facility] Comment on above: Anticoagulation [...] 07-25-2023 Refill Tien Serrano MD Work Phone: [facility] [place] Comment on above: Refill Request new pharmacy provide r Start: 07-14-2023 Telephone encounter Arabella Lopez [facility] harmacy Ambulatory Telemanagement Comment on above: Anticoagulation Tele phone Fu (Home INR result) Start: 05-15-2023 Telephone encounter Namita [facility] Ambulatory Telemanagement Comment on above: Anticoagulation Tele phone Fu (Home INR Result ) Start: 04-22-2023 End: 04-22-2023 Subsequent hospital visit by physician Tien Head DO Work Phone: [facility] Comment on above: Arrived Start: 04-16-2023 Telephone encounter [facility]ulatory Telemanagement Comment on above: Anticoagulation Tele phone Fu (Home INR) Start: 03-31-2023 Telephone encounter Arabella Lopez [facility]acy Ambulatory Telemanagement Comment on above: Anticoagulation Tele phone Fu (Home INR result) Start: 03-27-2023 End: 03-27-2023 Patient encounter procedure Paulino Namita Ruiz PA-C Work Phone: [facility] Comment on above: Hypertensive kidney disease with stage 3a chronic kidney disease (HCC) (Primary Dx); Hyperlipidemia LDL goal <100; Atrial fibrillation, unspecified type (HCC); longterm 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; Moderate mitral regurgitation; Moderate tricuspid regurgitation; Asymptomatic LV dysfunction; Venous (peripheral) insufficiency; History of DVT (deep vein thrombosis); longterm (current) use of anticoagulants; Generalized anxiety disorder; Hyperglycemia; Encounter for immunization Start: 03-12-2023 Telephone encounter Jinny adams [facility] Ambulatory Telemanagement Comment on above: Anticoagulation Tele phone Fu (Home INR) Start: 02-26-2023 Telephone encounter [facility]inny [facility] Ambulatory Telemanagement Comment on above: Anticoagulation Tele phone Fu (Home INR) Start: 02-19-2023 End: 02-19-2023 Patient encounter procedure Paulino Namita Ruiz PA-C Work Phone: [facility] Comment on above: Essential hypertensi on, benign (Primary Dx); Stage 3a chronic kidney disease (HCC); Generalized anxiety disorder; longterm 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; Atrial fibrillation, unspecified type (HCC); Dizziness; Valvular heart disease Start: 02-19-2023 Telephone encounter Tien Serrano MD Work Phone: [facility] [place] Comment on above: Medication Request Start: 02-18-2023 Refill Tien Serrano MD Work Phone: [facility] [place] Comment on above: Refill Request Start: 02-10-2023 Telephone encounter Arabella Lopez RPh P harmacy Ambulatory Telemanagement Comment on above: Anticoagulation Tele phone Fu Start: 01-23-2023 Telephone encounter Bea Loco [facility]acy Ambulatory Telemanagement Comment on above: Anticoagulation Tele phone Fu Start: 01-07-2023 Refill Tien Serrano MD Work Phone: [facility] [place] Comment on above: Refill Request Start: 01-06-2023 Telephone encounter Namita Gee R Pharmacy Ambulatory Telemanagement Comment on above: Anticoagulation (Marcello e INR Result ) Start: 12-19-2022 Telephone encounter Bea Loco [facility]acy Ambulatory Telemanagement Comment on above: Anticoagulation Tele phone Fu Start: 12-15-2022 Refill Tien Serrano MD Work Phone: [facility] [place] Comment on above: Refill Request Start: 12-05-2022 Telephone encounter Ghazal [facility] Comment on above: Anticoagulation Tele phone Fu (Home INR result ) BP Readings Start: 11-24-2022 Telephone encounter Katy soria APRN.SR. OPERATIONS MANAGER Work Phone: [facility] Comment on above: Consult Start: 11-24-2022 End: 11-24-2022 Office outpatient visit 15 minutes Katy Galdamez APRN.SR. OPERATIONS MANAGER Work Phone: [facility] [place] Comment on above: Essential hypertensi on, benign (Primary Dx); Screening for colon cancer Start: 11-20-2022 Telephone encounter Marcelina ricci [facility] Work Phone: [facility] Comment on above: Anticoagulation Tele phone Fu Start: 11-05-2022 Telephone encounter Ghazal [facility] Ambulatory Telemanagement Comment on above: Anticoagulation Tele phone Fu (Home INR result ) Start: 10-22-2022 Telephone encounter Jamie Motley [facility] Ambulatory Telemanagement Comment on above: Anticoagulation Tele phone Fu (Home INR Result) Start: 10-21-2022 Telephone encounter Love Awad [facility] Ambulatory Telemanagement Comment on [...] 08-21-2022 Refill Tien Serrano MD Work Phone: [facility] [place] Comment on above: Refill Request Start: 08-13-2022 Telephone encounter Ghazal Lynn [facility] Ambulatory Telemanagement Comment on above: Anticoagulation Tele phone Fu (Home INR) Start: 08-06-2022 Refill Tien Serrano MD Work Phone: [facility] [place] Comment on above: Refill Request Start: 07-24-2022 Telephone encounter Jinny adams [facility] Ambulatory Telemanagement Comment on above: Anticoagulation Tele phone Fu (Home INR ) Start: 07-11-2022 Telephone encounter Bea Loco [facility]acy Ambulatory Telemanagement Comment on above: Anticoagulation Tele phone Fu (INR Home Test Result) Start: 06-24-2022 Telephone encounter Arabella John RPh P harmacy Ambulatory Telemanagement Comment on above: Anticoagulation Tele phone Fu (Home INR) Start: 06-05-2022 Telephone encounter Jinny adams [facility] Ambulatory Telemanagement Comment on above: Anticoagulation Tele phone Fu (Home INR result) Start: 05-22-2022 Telephone encounter Jinny adams [facility] Ambulatory Telemanagement Comment on above: Anticoagulation Tele phone Fu (Home INR result) Start: 05-06-2022 Telephone encounter Arabella John CASTREJONh P harmacy Ambulatory Telemanagement Comment on above: Anticoagulation Tele phone Fu (Home INR) Start: 04-29-2022 End: 04-29-2022 Subsequent hospital visit by physician Tyrell [facility] [place] Work Phone: Radiology Comment on above: [...] sounds Start: 04-22-2022 Telephone encounter Arabella John [facility] Ambulatory Telemanagement Comment on above: Anticoagulation Tele phone Fu (Home INR) Start: 04-07-2022 Telephone encounter Namita [facility] Ambulatory Telemanagement Comment on above: Anticoagulation Tele phone Fu (Home INR Result) Start: 04-04-2022 Telephone encounter Bea Loco [facility] Ambulatory Telemanagement Comment on above: Anticoagulation Tele phone Fu Start: 03-21-2022 Telephone encounter Bea Adan [facility] Ambulatory Telemanagement Comment on above: Anticoagulation Tele phone Fu (INR Home Test Result) Start: 03-19-2022 Telephone encounter Rere Roberto [facility] Ambulatory Telemanagement Comment on above: Anticoagulation Tele phone Fu Start: 02-20-2022 Refill Tien Serrano MD Work Phone: [facility] [place] Comment on above: Refill Request Start: 02-18-2022 Telephone encounter Marcelina Mark [facility] Comment on above: Anticoagulation Tele phone Fu Start: 02-03-2022 Telephone encounter Paulino Ruiz PA-C Work Phone: [facility] [place] Comment on above: Opened In Error Results, Lab Anticoagulation Tele phone Fu (Home INR /) Results Start: 01-30-2022 End: 01-30-2022 Patient encounter procedure Paulino Ruiz PA-C Work Phone: [facility] [place] Comment on above: Abdominal [...] Dx) Start: 01-08-2022 Telephone encounter Ghazal Bailey [facility] Ambulatory Telemanagement Comment on above: Anticoagulation [...] encounter procedure Tien Serrano MD Work Phone: [facility] Comment on above: Hypertensive kidney disease with stage 3a chronic kidney disease (HCC) (Primary Dx); Moderate tricuspid regurgitation; Atrial fibrillation, unspecified type (HCC); Essential hypertension, benign; Stage 3a chronic kidney disease (HCC); SOB (shortness of breath); Generalized anxiety disorder; Hx of skin cancer, basal cell Start: 10-28-2021 Telephone encounter Love Awad [facility] Comment on above: Anticoagulation Tele phone Fu (Home INR ) Start: 10-14-2021 Telephone encounter Namita Antonieta [facility] Ambulatory Telemanagement Comment on above: Anticoagulation Tele phone Fu (Home INR Result) Start: 10-11-2021 Telephone encounter Tien Serrano MD Work Phone: [facility] Comment on above: Results Start: 10-10-2021 End: 10-10-2021 Subsequent hospital visit by physician Tyrell [facility] [place] Work Phone: Radiology Comment on above: SOB (shortness of br eath) [R06.02] Start: 09-30-2021 Telephone encounter Arabella Lopez RPh P harmacy Ambulatory Telemanagement Comment on above: Anticoagulation Tele phone Fu (Home INR result) Start: 09-16-2021 Refill Tien Serrano MD Work Phone: [facility] [place] Comment on above: Refill Request Anticoagulation Tele phone Fu (Home INR Result) Start: 09-03-2021 Telephone encounter Arabella Rasheeddaniel [facility] Ambulatory Telemanagement Comment on above: Anticoagulation Tele phone Fu (Home INR result) Start: 04-25-2021 Telephone encounter Tien Serrano MD Work Phone: [facility] [place] Comment on above: Blood Pressure Check Start: 11-10-2019 End: 11-10-2019 Subsequent hospital visit by physician Tien Head Work Phone: [facility] E[facility]ocardi[facility] Comment on above: Arrived Start: 11-11-2018 End: 11-11-2018 Office outpatient visit 15 minutes Tien Head Work Phone: [facility] Comment on above: Moderate mitral [...] Adult depression scr eening assessment Namita Gee [facility] Start: 04-22-2023 Echo tthrc r-t 2d w/ wom-mode compl spec&colr d Tien Head DO Work Phone: Start: 03-27-2023 INFLUENZA VACCINE, P RSV FREE, AGE 65+ YR, HIGH DOSE, QUADRIVALENT (FLUZONE HIGH-DOSE) M Namita Ruiz PA-C Work Phone: Start: 03-27-2023 [employer] COVI D-19 VACCINE (2022- [place]) AGE 12+ YR M Namita Ruiz PA-C Work Phone: Start: 04-29-2022 Radiologic [...] Adult depression scr eening assessment Arabella Lopez [facility] Start: 11-10-2019 Transthoracic echocardiography Tien Head Work Phone: Plan of Treatment Date Care Activity Detail Author Start: 05-02-2029 Tetanus vaccination [facility] Start: 05-02-2029 Urine microalbumin profile [facility] Start: 01-27-2028 Diabetes Screening Diabetes Screening [facility] Start: 12-16-2027 Diabetes Screening Diabetes Screening [facility] Start: 12-08-2027 Diabetes Screening Diabetes Screening [facility] Start: 11-08-2027 Diabetes Screening Diabetes Screening [facility] Start: 11-02-2027 Diabetes Screening Diabetes Screening [facility] Start: 12-27-2026 Diabetes Screening Diabetes Screening [facility] Start: 11-10-2026 Diabetes Screening Diabetes Screening [facility] Start: 03-23-2026 Diabetes Screening Diabetes Screening [facility] Start: 11-20-2025 DIABETES SCREEN DIABETES SCREEN [facility] Start: 11-20-2025 Diabetes Screening Diabetes Screening [facility] Start: 10-27-2025 DIABETES SCREEN DIABETES SCREEN [facility] Start: 05-16-2025 End: 05-16-2025 Patient encounter procedure 05/16/2025 9:00 AM EST Office Visit [facility] [address] [place] [address] Tien Head, [address] [place] [address] [facility] Start: 04-22-2025 End: 04-22-2025 Patient encounter procedure 04/22/2025 8:40 AM EST Office Visit [facility] [place] [address] [place] [address] Tien Serrano MD [address] [place] [address] 4 month follow up [facility] [place] Comment on above: 4 month follow up Start: 03-17-2025 End: 03-17-2025 Patient encounter procedure Pulmonary Medicine Comment on above: 4 month f/u Start: 02-09-2025 Covid-19 Vaccine () Covid-19 Vaccine () [facility] Comment on above: Postponed from 02/07/2024 (Declined at t his time) Start: 02-09-2025 Covid-19 Vaccine () Covid-19 Vaccine () [facility] Comment on above: Postponed from 02/07/2024 (Declined at t his time) Start: 02-06-2025 [facility] Start: 01-30-2025 DIABETES SCREEN DIABETES SCREEN [facility] Start: 01-26-2025 End: 01-26-2025 ambulatory 01/26/2025 8:15 AM EDT Results Only [place] [facility] Laboratory [address] [place] [address] [place] [facility] Start: 01-17-2025 End: 01-17-2025 ambulatory 01/17/2025 9:45 AM EDT OT/PT/Speech Visit [facility] [address] [place] [address] Michelle Gomez, PT Vertigo [R42] [facility] Comment on above: Vertigo [R42] Start: 01-11-2025 End: 01-11-2025 Patient encounter procedure 01/11/2025 2:00 PM EDT Office Visit Neurology [address] [place] [address] MARY BETH (obstructive sleep apnea) [G47.33] Neurology Comment on above: MARY BETH (obstructive sleep apnea) [G47.33] Start: 12-15-2024 End: 12-15-2024 ambulatory 12/15/2024 8:15 AM EDT Results Only [place] [facility] [address] [place] [address] [facility] Start: 12-07-2024 End: 03-08-2025 Basic metabolic 2000 panel - Serum or Plasma [facility] Work Phone: Comment on above: Expected: 12/07/2024, Expires: Start: 12-07-2024 End: 03-08-2025 Magnesium [Mass/volume] in Serum or Plasma [facility] Comment on above: Expected: 12/07/2024, Expires: Start: 12-07-2024 End: 12-07-2024 Patient encounter procedure 12/07/2024 9:00 AM EDT Office Visit [facility] [place] [address] [place] [address] Tien Serrano MD [address] [place] [address] 6 week follow up [facility] [place] Comment on above: 6 week follow up Start: 12-05-2024 Influenza vaccination Influenza Vaccine (#1) [facility] Comment on above: Postponed from 02/07/2024 (Declined at t his time) Start: 11-14-2024 End: 11-14-2024 Patient encounter procedure 11/14/2024 8:45 AM EDT Office Visit Pulmonary Medicine [address] [place] [address] Lia Griffin MD [address] [place] [address] Chronic obstructive pulmonary disease, unspecified COPD type (HCC) [J44.9]; SOB (shortness of breath) [R06.02] Pulmonary Medicine Comment on above: Chronic obstructive pulmonary disease, u nspecified COPD type (HCC) [J44.9]; SOB (shortness of breath) [R06.02] Start: 11-10-2024 Depression Screening Depression Screening [facility] Start: 11-07-2024 End: 11-07-2024 ambulatory 11/07/2024 9:45 AM EDT [facility] [address] [facility] [place] [address] [facility] Start: 11-02-2024 End: 02-01-2025 Basic metabolic 2000 panel - Serum or Plasma BASIC METABOLIC PANEL Lab Routine Essential hypertension, benign Expected: 11/02/2024, Expires: 02/01/2025 [facility] Work Phone: Comment on above: Expected: 11/02/2024, Expires: Start: 11-02-2024 End: 02-01-2025 Magnesium [Mass/volume] in Serum or Plasma MAGNESIUM Lab Routine Essential hypertension, benign Expected: 11/02/2024, Expires: 02/01/2025 [facility] Comment on above: Expected: 11/02/2024, Expires: Start: 11-02-2024 End: 02-01-2025 Natriuretic peptide.B prohormone N-Terminal [Mass/volume] in Serum or Plasma NT PRO BNP Lab Routine Congestive heart failure, unspecified HF chronicity, unspecified heart failure type (HCC) Expected: 11/02/2024, Expires: 02/01/2025 [facility] Comment on above: Expected: 11/02/2024, Expires: Start: 11-02-2024 End: 11-02-2024 Patient encounter procedure 11/02/2024 10:20 AM EDT Office Visit Family Medicine [place] [address] [place] [address] Tien Serrano MD [address] [place] [place] [address] 6 month follow up Family Medicine [place] Comment on above: 6 month follow up Start: 10-30-2024 End: 01-29-2025 CBC W Auto Differential panel - Blood COMPLETE BLOOD COUNT AND DIFFERENTIAL Lab Routine Essential hypertension, benign Expected: 10/30/2024, Expires: 01/29/2025 [facility] Work Phone: Comment on above: Expected: 10/30/2024, Expires: Start: 10-30-2024 End: 01-29-2025 Comprehensive metabolic 2000 panel - Serum or Plasma COMPREHENSIVE METABOLIC PANEL Lab Routine Essential hypertension, benign Expected: 10/30/2024, Expires: 01/29/2025 [facility] Comment on above: Expected: 10/30/2024, Expires: Start: 10-30-2024 End: 01-29-2025 Hemoglobin A1c in Blood HEMOGLOBIN A1C Lab Routine Hyperglycemia Expected: 10/30/2024, Expires: 01/29/2025 [facility] Comment on above: Expected: 10/30/2024, Expires: Start: 10-30-2024 End: 01-29-2025 Lipid 1996 panel - Serum or Plasma LIPID PANEL BASIC Lab Routine Essential hypertension, benign Expected: 10/30/2024, Expires: 01/29/2025 [facility] Comment on above: Expected: 10/30/2024, Expires: Start: 10-27-2024 End: 10-27-2024 ambulatory 10/27/2024 9:30 AM EDT Results Only [place] [facility] Laboratory [address] [place] [address] [facility] Start: 10-15-2024 DIABETES SCREEN DIABETES SCREEN [facility] Start: 10-10-2024 End: 10-10-2024 Patient encounter procedure 10/10/2024 7:20 PM EDT Office Visit Family Gerardo [place] [address] [place] [address] Tien Serrano MD [address] [place] [address] discuss referral to pulm Family Gerardo [place] Comment on above: discuss referral to pulm Start: 10-10-2024 DIABETES SCREEN DIABETES SCREEN [facility] Start: 10-10-2024 End: 01-09-2025 Natriuretic peptide.B prohormone N-Terminal [Mass/volume] in Serum or Plasma NT PRO BNP Lab Routine SOB (shortness of breath) Expected: 10/10/2024, Expires: 01/09/2025 [facility] Work Phone: Comment on above: Expected: 10/10/2024, Expires: Start: 09-02-2024 Covid-19 Vaccine () Covid-19 Vaccine () [facility] Start: 06-08-2024 Advance Directive Discussion Advance Directive Discussion [facility] Start: 06-08-2024 Medicare Advantage Annual Wellness Visit Medicare Advantage Annual Wellness Visit [facility] Start: 05-10-2024 End: 05-10-2024 Patient encounter procedure 05/10/2024 10:00 AM EST Office Visit [facility] [address] [place] [address] Tien Head DO [address] [place] [address] [facility] Start: 05-02-2024 End: 05-02-2024 Patient encounter procedure 05/02/2024 3:20 PM EST Office Visit Family Gerardo [place] [address] [place] [address] Tien Serrano MD [address] [place] [address] 2 month follow up Family Gerardo [place] Comment on above: 2 month follow up Start: 04-13-2024 End: 04-13-2024 ambulatory 04/13/2024 9:45 AM EST OT/PT/Speech Visit [facility] [address] [place] [id number] Michelle Gomez, PT Priority: Routine [place] [facility] Physical Therapy Comment on above: Priority: Routine Start: 03-30-2024 End: 03-30-2024 ambulatory 03/30/2024 9:45 AM EDT OT/PT/Speech Visit [facility] [address] [place] [address] Michelle Gomez, PT Priority: Routine [facility] Comment on above: Priority: Routine Start: 03-23-2024 End: 03-23-2024 Patient encounter procedure [facility] [place] Comment on above: 6 week follow up PFT testing Start: 03-16-2024 End: 03-16-2024 ambulatory 03/16/2024 10:30 AM EDT OT/PT/Speech Visit [facility] [address] [place] [address] Michelle Gomez, PT Priority: Routine [facility] Comment on above: Priority: Routine Start: 03-14-2024 DIABETES SCREEN DIABETES SCREEN [facility] Start: 02-29-2024 End: 02-29-2024 ambulatory 02/29/2024 12:30 PM EDT OT/PT/Speech Visit [facility] [address] [place] [address] Kadeem'Michelle Berrios, PT Dx: Lightheaded [R42 (ICD-10-CM)]; Benign paroxysmal positional vertigo of right ear [H81.11 (ICD-10-CM)] [facility] Comment on above: Dx: Lightheaded [R42 (ICD-10-CM)]; Benig n paroxysmal positional vertigo of right ear [H81.11 (ICD-10-CM)] Start: 02-15-2024 End: 02-15-2024 Follow-up encounter 02/15/2024 9:30 AM EDT OT/PT/Speech Visit [facility] [address] [place] [address] O'Michelle Berrios, PT follow up [facility] Comment on above: follow up Start: 02-11-2024 End: 02-11-2024 ambulatory [facility] Comment on above: SOB (shortness of breath) [R06.02] Start: 02-10-2024 End: 02-10-2024 Patient encounter procedure 02/10/2024 11:20 AM EDT Office Visit Family Gerardo [facility]avezoster [address] [place] [address] Tien Serrano MD [address] [place] [address] 6 week follow up Family Gerardo [place] Comment on above: 6 week follow up Start: 02-07-2024 Influenza vaccination Influenza Vaccine (#1) [facility] Start: 02-02-2024 End: 02-02-2024 ambulatory 02/02/2024 9:45 AM EDT OT/PT/Speech Visit [facility] [address] [place] [address] Michelle Gomez, PT Lightheaded [R42]; Benign paroxysmal positional vertigo of right ear [H81.11] [facility] Comment on above: Lightheaded [R42]; Benign paroxysmal pos itional vertigo of right ear [H81.11] Start: 12-29-2023 End: 12-29-2023 Patient encounter procedure 12/29/2023 3:40 PM EDT Office Visit Family Gerardo [place] [address] [facility] [address] Tien Serrano MD [address] [place] [address] 6 week follow up Family Gerardo [place] Comment on above: 6 week follow up Start: 12-26-2023 End: 12-26-2023 Patient encounter procedure 12/26/2023 10:20 AM EDT Office Visit Family Gerardo [place]oster [address] [place] [address] Tien Serrano MD [address] [facility] [place], [place] [id number] 6 week follow up Family Gerardo [place] Comment on above: 6 week follow up Start: 12-08-2023 End: 12-08-2023 Patient encounter procedure 12/08/2023 9:15 AM EDT Office Visit [facility] [address] [place] [address] Tien Head, [address] [place] [address] [facility] Start: 11-25-2023 ANNUAL PCP TEAM CHRONIC DISEASE VISIT ANNUAL PCP TEAM CHRONIC DISEASE VISIT [facility] Start: 11-21-2023 SERUM CREATININE SERUM CREATININE [facility] Start: 11-12-2023 End: 02-11-2024 Basic metabolic 2000 panel - Serum or Plasma BASIC METABOLIC PANEL Lab Routine Renal insufficiency Expected: 11/12/2023, Expires: 02/11/2024 [facility] Work Phone: Comment on above: Expected: 11/12/2023, Expires: Start: 11-11-2023 End: 11-11-2023 Patient encounter procedure 11/11/2023 9:40 AM EDT Office Visit Family Medicine [place] [address] [place] [address] Tien Serrano MD [address] [place] [address] 6 month follow up Family Medicine [place] Comment on above: 6 month follow up Start: 11-09-2023 End: 11-09-2023 Patient encounter procedure 11/09/2023 10:00 AM EDT Office Visit [facility] [address] [place] [address] Tien Head, DO [address] [place] [address] [facility] Start: 11-01-2023 ANNUAL PCP TEAM CHRONIC DISEASE VISIT ANNUAL PCP TEAM CHRONIC DISEASE VISIT [facility] Start: 10-28-2023 SERUM CREATININE SERUM CREATININE [facility] Start: 07-28-2023 Covid-19 Vaccine ( season) Covid-19 Vaccine ( season) [facility] Start: 06-08-2023 Advance Directive Discussion Advance Directive Discussion [facility] Start: 06-08-2023 Behavioral Health Screening Behavioral Health Screening [facility] Start: 06-08-2023 Depression Assessment Depression Assessment [facility] Start: 04-29-2023 ANNUAL PCP TEAM CHRONIC DISEASE VISIT ANNUAL PCP TEAM CHRONIC DISEASE VISIT [facility] Start: 02-19-2023 End: 04-21-2023 Basic metabolic 2000 panel - Serum or Plasma BASIC METABOLIC PNL Lab Routine Stage 3a chronic kidney disease (HCC) Expected: 02/19/2023, Expires: 04/21/2023 [facility] Work Phone: Comment on above: Expected: 02/19/2023, Expires: Start: 02-06-2023 Influenza vaccination [facility] Start: 01-30-2023 ANNUAL PCP TEAM CHRONIC DISEASE VISIT ANNUAL PCP TEAM CHRONIC DISEASE VISIT [facility] Start: 01-30-2023 HEMOGLOBIN/HEMATOCRIT HEMOGLOBIN/HEMATOCRIT [facility] Start: 01-30-2023 SERUM CREATININE SERUM CREATININE [facility] Start: 11-08-2022 ANNUAL PCP TEAM CHRONIC DISEASE VISIT ANNUAL PCP TEAM CHRONIC DISEASE VISIT [facility] Start: 10-27-2022 End: 12-27-2022 Comprehensive metabolic 2000 panel - Serum or Plasma COMP METABOLIC PANEL Lab Routine Hyperlipidemia LDL goal <100 Expected: 10/27/2022, Expires: 12/27/2022 [facility] Work Phone: Comment on above: Expected: 10/27/2022, Expires: 3 Start: 10-27-2022 End: 12-27-2022 Hemoglobin A1c in Blood HGB A1C Lab Routine Hyperglycemia Expected: 10/27/2022, Expires: 12/27/2022 [facility] Work Phone: Comment on above: Expected: 10/27/2022, Expires: 3 Start: 10-27-2022 End: 12-27-2022 Lipid 1996 panel - Serum or Plasma LIPID PANEL BASIC Lab Routine Hyperlipidemia LDL goal <100 Expected: 10/27/2022, Expires: 12/27/2022 [facility] Work Phone: Comment on above: Expected: 10/27/2022, Expires: 3 Start: 10-15-2022 SERUM CREATININE SERUM CREATININE [facility] Start: 10-10-2022 ANNUAL PCP TEAM CHRONIC DISEASE VISIT ANNUAL PCP TEAM CHRONIC DISEASE VISIT [facility] Start: 10-10-2022 HEMOGLOBIN/HEMATOCRIT HEMOGLOBIN/HEMATOCRIT [facility] Start: 10-10-2022 SERUM CREATININE SERUM CREATININE [facility] Start: 08-12-2022 COVID-19 VACCINE (5 - Moderna series) COVID-19 VACCINE (5 - Moderna series) [facility] Start: 06-08-2022 ADVANCE DIRECTIVE DISCUSSION ADVANCE DIRECTIVE DISCUSSION [facility] Start: 06-08-2022 DEPRESSION ASSESSMENT DEPRESSION ASSESSMENT [facility] Start: 04-25-2022 BP CONTROLLED (<130/80) BP CONTROLLED (<130/80) [facility] Start: 03-14-2022 ANNUAL PCP TEAM CHRONIC DISEASE VISIT ANNUAL PCP TEAM CHRONIC DISEASE VISIT [facility] Start: 03-14-2022 HEMOGLOBIN/HEMATOCRIT HEMOGLOBIN/HEMATOCRIT [facility] Start: 03-14-2022 SERUM CREATININE SERUM CREATININE [facility] Start: 03-09-2022 Adult depression screening assessment DEPRESSION SCREENING [facility] Start: 02-06-2022 Influenza vaccination INFLUENZA (#1) [facility] Start: 02-03-2022 End: 04-05-2022 ALBUMIN/CREAT RATIO RND UR ALBUMIN/CREAT RATIO RND UR Lab Routine Abnormal casts in urine Urine protein increased Expected: 02/03/2022, Expires: 04/05/2022 [facility] Work Phone: Comment on above: Expected: 02/03/2022, Expires: 2 Start: 02-03-2022 End: 04-05-2022 Urinalysis complete panel - Urine URINALYSIS, WITH MICROSCOPIC Lab Routine Abnormal casts in urine Urine protein increased Expected: 02/03/2022, Expires: 04/05/2022 [facility] Work Phone: Comment on above: Expected: 02/03/2022, Expires: 2 Start: 01-30-2022 End: 04-01-2022 CBC W Auto Differential panel - Blood [facility] Work Phone: Comment on above: Expected: 01/30/2022, Expires: 2 Start: 01-30-2022 End: 04-01-2022 Comprehensive metabolic 2000 panel - Serum or Plasma [facility] Work Phone: Comment on above: Expected: 01/30/2022, Expires: 2 Start: 01-30-2022 End: 04-01-2022 Lipase [Enzymatic activity/volume] in Serum or Plasma [facility] Work Phone: Comment on above: Expected: 01/30/2022, Expires: 2 Start: 10-11-2021 End: 12-11-2021 Basic metabolic 2000 panel - Serum or Plasma BASIC METABOLIC PNL Lab Routine Congestive heart failure, unspecified HF chronicity, unspecified heart failure type (HCC) Expected: 10/11/2021, Expires: 12/11/2021 [facility] Work Phone: Comment on above: Expected: 10/11/2021, Expires: 2 Start: 08-07-2021 COVID-19 VACCINE (4 - Booster for Moderna series) COVID-19 VACCINE (4 - Booster for Moderna series) [facility] Start: 06-08-2021 ADVANCE DIRECTIVE DISCUSSION ADVANCE DIRECTIVE DISCUSSION [facility] Start: 06-08-2021 DEPRESSION ASSESSMENT DEPRESSION ASSESSMENT [facility] Start: 06-04-2021 COVID-19 VACCINE (4 - Booster for Moderna series) COVID-19 VACCINE (4 - Booster for Moderna series) [facility] Start: 03-26-2021 Tetanus vaccination [facility] Start: 11-12-2020 End: 11-12-2020 Office Visit 11/12/2020 Office Visit Cardiovascular Medicine Tien Head, [address] [place] [address] [facility] Start: 08-02-2020 COVID-19 VACCINE (2 - Moderna 3-dose series) COVID-19 VACCINE (2 - Moderna 3-dose series) [facility] Start: 11-12-2019 End: 11-12-2019 Transthoracic echocardiography ECHOCARDIOGRAM Echocardiography Routine Moderate mitral regurgitation Expected: 11/12/2019, Expires: 11/12/2019 [facility] Comment on above: Expected: 11/12/2019, Expires: 0 Start: 11-10-2019 End: 11-10-2019 Office Visit 11/10/2019 Office Visit Cardiovascular Medicine Tien Head, DO [address] [place] [id number] [facility] Start: 02-24-2015 Screening for malignant neoplasm of colon COLORECTAL CANCER SCREENING DISCUSSION [facility] Start: 2001 RSV Vaccine (1 - 1-dose 60+ series) RSV Vaccine (1 - 1-dose 60+ series) [facility] Start: 12-26-1991 Colonoscopy [facility] Start: 12-26-1991 Zoster vaccine hzv live for subcutaneous use ZOSTER (SHINGLES) VACCINE (1 of 2) [facility] Start: 1986 Screening for malignant neoplasm of colon COLORECTAL CANCER SCREENING DISCUSSION [facility] Start: 1960 Third diphtheria, tetanus and acellular pertussis (DTaP) vaccination TDAP (ADULT) [facility] Start: 12-26-1959 BP CONTROLLED (<130/80) BP CONTROLLED (<130/80) [facility] in Echocardiography ECHOCARDIOGRAM Echocardiography Routine Atrial fibrillation, unspecified type Dyspnea on exertion 11/18/2024 11:20 AM EDT [facility] End: 12-07-2025 HOME SLEEP APNEA TEST (HSAT) HOME SLEEP APNEA TEST (HSAT) Procedures Routine MARY BETH (obstructive sleep apnea) 1 Occurrences starting 12/07/2024 until 12/07/2025 [facility] Comment on above: 1 Occurrences starting 12/07/2024 until 12/07/2025 End: 03-11-2025 LUNG VOLUMES LUNG VOLUMES PFT Routine SOB (shortness of breath) Lightheadedness 1 Occurrences starting 02/10/2024 until 03/11/2025 [facility] Comment on above: 1 Occurrences starting 02/10/2024 until 03/11/2025 Removal impacted cer umen irrigation/lvg unilat AMBULATORY EAR LAVAGE/IRRIGATION Procedures Routine Impacted cerumen of left ear Ordered: 11/11/2023 [facility] Work Phone: Comment on above: Ordered: 11/11/2023 End: 03-11-2025 SIX MINUTE WALK SIX MINUTE WALK PFT Routine SOB (shortness of breath) Lightheadedness 1 Occurrences starting 02/10/2024 until 03/11/2025 [facility] Comment on above: 1 Occurrences starting 02/10/2024 until 03/11/2025 SIX MINUTE WALK SIX MINUTE WALK PFT Routine SOB (shortness of breath) Lightheadedness 02/11/2024 1:12 PM EDT [facility] Work Phone: End: 03-11-2025 SPIROMETRY WITH DILATOR IF OBSTRUCTED SPIROMETRY WITH DILATOR IF OBSTRUCTED PFT Routine SOB (shortness of breath) Lightheadedness 1 Occurrences starting 02/10/2024 until 03/11/2025 [facility] Work Phone: Comment on above: 1 Occurrences starting 02/10/2024 until 03/11/2025 Urinalysis complete panel - Urine URINALYSIS, WITH MICROSCOPIC Lab Routine Abdominal pain, left lateral 01/30/2022 11:36 AM EDT [facility] Work Phone: End: 11-09-2025 XR Chest PA and Lateral XR CHEST 2V FRONTAL/LAT Radiology Routine SOB (shortness of breath) COPD with exacerbation (HCC) 1 Occurrences starting 10/10/2024 until 11/09/2025 [facility] Comment on above: 1 Occurrences starting 10/10/2024 until 11/09/2025 XR Chest PA and Lateral XR CHEST 2V FRONTAL/LAT Radiology Routine SOB (shortness of breath) COPD with exacerbation (HCC) 10/11/2024 11:07 AM EDT [facility] Work Phone: [facility] Immunizations Immunization Date Immunization Notes Care Provider Vicente beal 05-02-2024 influenza, high dose seasonal, preservative-free Tien Serrano MD Work Phone: [facility] 05-02-2024 influenza virus vacc ine, unspecified formulation Tien Serrano MD Work Phone: [facility] 03-05-2024 COVID-19 vaccine, ag e 12+ yr (PFIZER-BIONTECH COMIRNATY) Michelle Gomez PT [facility] 04-21-2023 pneumococcal (PCV20) vaccine, 20 valent (PREVNAR 20) Namita Gee [facility] 04-21-2023 respiratory syncytia l virus (RSV) vaccine, bivalent (ABRYSVO) Namita Gee [facility] 03-27-2023 COVID-19 vaccine, ag e 12+ yr, season (Mogi-BIONTAtlas Spine) AMBER Ruiz PA-C Work Phone: [facility] 03-27-2023 influenza (HD-IIV4) vaccine, age 65+ yr, high dose, quadrivalent, PF (FLUZONE HIGH-DOSE) NA Ruiz PA-C Work Phone: [facility] 03-27-2023 influenza virus vacc ine, unspecified formulation Arabella Lopez [facility] 04-01-2022 influenza (HD-IIV4) vaccine, age 65+ yr, high dose, quadrivalent, PF (FLUZONE HIGH-DOSE) NA Ruiz PA-C Work Phone: [facility] 04-01-2022 influenza, high dose seasonal, preservative-free Bea Adan [facility] 04-01-2022 influenza virus vacc ine, unspecified formulation Tien Serrano MD Work Phone: [facility] 03-14-2021 influenza, high-dose , quadrivalent vaccine (FLUZONE HIGH DOSE QUADRIVALENT) Arabella Lopez [facility] 07-05-2020 COVID-19 vaccine, fu ll dose (MODERNA) Arabella Lopez [facility] 03-08-2020 influenza, high-dose , quadrivalent vaccine (FLUZONE HIGH DOSE QUADRIVALENT) Arabella Lopez [facility] 05-02-2019 influenza, injectabl e, quadrivalent, preservative free NA Ruiz PA-C Work Phone: [facility] 05-02-2019 tetanus toxoid, redu mary diphtheria toxoid, and acellular pertussis vaccine, adsorbed Arabella Begany [facility] 04-10-2019 zoster vaccine recombinant Arabella Begany [facility] 04-06-2019 influenza, high dose seasonal, preservative-free Arabella [facility] 04-06-2019 tetanus toxoid, redu mary diphtheria toxoid, and acellular pertussis vaccine, adsorbed NA Ruiz PA-C Work Phone: [facility] 02-20-2019 zoster vaccine recombinant Arabella Began [facility] 09-25-2018 zoster vaccine recombinant NA Ruiz PA-C Work Phone: [facility] 07-31-2018 zoster vaccine recombinant NA Ruiz PA-C Work Phone: [facility] 04-10-2018 influenza, high dose seasonal, preservative-free Arabella Begany [facility] 04-07-2017 influenza, high dose seasonal, preservative-free [facility] Work Phone: 03-29-2016 influenza, high dose seasonal, preservative-free [facility] 04-20-2015 influenza, high dose seasonal, preservative-free Arabella Begany [facility] 04-20-2015 pneumococcal conjuga te vaccine, 13 valent [facility] 04-12-2015 influenza, injectabl e, quadrivalent, contains preservative [facility] 04-12-2015 influenza, seasonal, injectable, preservative free Arabella Began [facility] 04-05-2014 influenza, high dose seasonal, preservative-free Arabella Begany [facility] 04-05-2014 influenza, seasonal, injectable [facility] 03-26-2011 influenza virus vacc ine, unspecified formulation Arabella y [facility] Work Phone: 03-26-2011 TD(adult) unspecifie d formulation Arabella y [facility] 03-26-2011 tetanus and diphther ia toxoids, adsorbed, preservative free, for adult use (2 Lf of tetanus toxoid and 2 Lf of diphtheria toxoid) [facility] Work Phone: 03-10-2011 zoster vaccine, live Arab[facility] 04-13-2010 influenza virus vacc ine, unspecified formulation Arab[facility] Work Phone: 04-19-2009 H1N1 Flu Vaccine Tien Head [facility] 04-19-2009 influenza, high dose seasonal, preservative-free Arabella [facility] 04-19-2009 novel influenza-H1N1 -09, all formulations Arabella daniel [facility] Work Phone: 04-19-2009 novel influenza-H1N1 -09, preservative-free, injectable [facility] 04-16-2009 influenza virus vacc ine, unspecified formulation [facility] 04-21-2008 influenza virus vacc ine, unspecified formulation [facility] Work Phone: 04-14-2007 influenza virus vacc ine, whole virus Tien Head [facility] Work Phone: 04-14-2007 pneumococcal polysaccharide vaccine, 23 valent Tien Head [facility] Work Phone: 05-29-2005 influenza virus vacc ine, [facility] virus [facility] Payers Date Payer Category Payer Self-pay 2021 Medicare [employer] MEDICARE A ETNA MEDICARE PPO [id number] 2021-Present [phone] [address] [place] [address] PPO [id number] 2017 Medicare [id number] 2017 Medicare MEDICARE AET[place] MEDICARE AETNA PPO xxxxxxxx 2017-Present [id number] 2017 Medicare [id number] 2017 Medicare (Managed Care) [id number] 2017 Medicare [id number] 1941 Unknown [id number] 1941 Unknown [id number] 1941 Unknown [id number] 1941 Unknown [id number] 1941 Unknown [id number] 83 Unknown [id number] Social History Date Type Detail Facility Start: 11-10-2019 End: 11-14-2024 Tobacco smoking status NHIS Former smoker [facility] Start: 11-10-2019 End: 11-14-2024 Tobacco use and exposure Never used [facility] Start: 11-10-2019 End: 01-16-2025 Alcohol intake Current drinker of alcohol (finding) [facility] Start: 11-11-2017 End: 04-17-2022 Tobacco Comment quit 20 years ago [facility] Start: 11-11-2017 Alcohol Comment 7 - 8 drinks per week. wine/martini [facility] Start: 1940 Sex Assigned At Not on file [facility] Start: 09-30-2021 End: 04-29-2022 Exposure to SARS-CoV-2 (event) Not sure [facility] Start: 06-08-1958 End: 02-24-2011 History of tobacco use Current smoker [facility] Start: 06-08-1958 End: 02-24-2011 History of tobacco use Cigarette Smoker [facility] Start: 04-25-2021 End: 01-17-2025 Alcohol intake [facility] Start: 03-02-2020 End: 10-25-2022 History SDOH Alcohol Std Drinks 1 [facility] Start: 03-25-2011 History SDOH Alcohol Comment one drink a day [facility] Start: 03-02-2020 End: 10-25-2022 History SDOH Social Connections Phone 5 [facility] Start: 03-02-2020 End: 10-25-2022 History SDOH Social Connections Get Together 3 [facility] Start: 03-02-2020 End: 10-25-2022 History SDOH Transport Med 2 [facility] Start: 03-02-2020 Education 18 [facility] Start: 1940 Sex Assigned At Male [facility] Start: 11-01-2021 History SDOH Social Connections Get Together 4 [facility] Start: 11-01-2021 History SDOH Physical Activity DPW 6 [facility] Start: 10-25-2022 History SDOH Physical Activity MPS 98 [facility] Start: 10-25-2022 End: 01-17-2025 Social connection and isolation panel [facility] Do you belong to any clubs or organizations such as taoist groups, unions, fraternal or athletic groups, or school groups? Yes [facility] Are you now , , , , never or living with a partner? [facility] How often to you hav e a drink containing alcohol? 4 or more times a week [facility] How many standard dr inks containing alcohol do you have on a typical day? 1 or 2 [facility] How often do you hav e 6 or more drinks on 1 occasion? Never [facility] Start: 05-09-2012 How hard is it for you to pay for the very basics like food, housing, medical care, and heating Not hard at all [facility] Do you feel stress - tense, restless, nervous, or anxious, or unable to sleep at night because your mind is troubled all the time - these days [OSQ] Not at all [facility] (I/We) worried wheth er (my/our) food would run out before (I/we) got money to buy more. Never true [facility] In the past 12 month s, was there a time when you were not able to pay the mortgage or rent on time? No [facility] Start: 11-04-2017 Gender identity Identifies as male gender (finding) [facility] Start: 11-09-2019 Sexual orientation Heterosexual (finding) [facility] Start: 11-11-2017 Alcohol Comment 7 - 8 drinks per week. wine/martini [facility] Start: 11-04-2017 Sex Male (finding) [facility] Start: 08-24-2020 Alcohol Alcohol [facility] Start: 08-24-2020 Lives Lives [facility] Start: 08-14-2020 Tobacco Use Tobacco Use [facility] Functional Status Date Assessment Result Facility 01-21-2018 Are you deaf, or do you have serious difficulty hearing No 01/21/2018 9:58 AM HARPERT Geoffrey Garcia III, MD [facility] 01-21-2018 Are you blind, or do you have serious difficulty seeing, even when wearing glasses No 01/21/2018 9:58 AM Geoffrey Carmen III, MD [facility] 01-21-2018 Do you have serious difficulty walking or climbing stairs No 01/21/2018 9:58 AM Geoffrey Carmen III, MD [facility] 01-21-2018 Do you have difficul ty dressing or bathing No 01/21/2018 9:58 AM Geoffrey Carmen III, MD [facility] 01-21-2018 Because of a physica l, mental, or emotional condition, do you have difficulty doing errands alone such as visiting a physician's office or shopping No 01/21/2018 9:58 AM Geoffrey Carmen III, MD [facility] Mental Status Date Assessment Result Facility 01-21-2018 Because of a physica l, mental, or emotional condition, do you have serious difficulty concentrating, remembering, or making decisions No 01/21/2018 9:58 AM Geoffrey Carmen III, MD No [facility] Clinical Notes 01-21-2018 to 02-21-2025 Telephone Encounter [...] Foss LPN February 21, 2025 12:26 PM [facility] 02-21-2025 Miscellaneous Notes Prescription Refill Information The [...] 2025 12:26 PM documented in this encounter [facility] 02-20-2025 Telephone encounter Note [facility] Ambulatory Pharmacy Anticoagulation Clinic Anticoagulation Episode Summary Anticoagulation Care Providers Provider Role Specialty Phone number Tien Serrano MD Referring Family Medicine [phone] Wilmer Morley is a 84 year old [...] Mon; 5 mg all other days Sent Aquaporin message Advised patient to continue current weekly dose as noted above Next INR check due on 03/06/2025 Namita Gee RPh Clinical Pharmacist, Pharmacy Anticoagulation Clinic Pharmacy Antico[facility] Clinic Pager: [phone]. [facility] 02-20-2025 Miscellaneous Notes [facility] Ambulatory Pharmacy Anticoagulation Clinic Anticoagulation Episode Summary Anticoagulation Care Providers Provider Role Specialty Phone number Tien Serrano MD Referring Family Medicine [phone] Wilmer Morley is a 84 year old [...] Mon; 5 mg all other days Sent Aquaporin message Advised patient to continue current weekly dose as noted above Next INR check due on 03/06/2025 Namita Gee RPh Clinical Pharmacist, Pharmacy Anticoagulation Clinic Pharmacy Antico[facility] Clinic Pager: [phone]. documented in this encounter [facility] 02-07-2025 Telephone encounter Note [facility] Ambulatory Pharmacy Anticoagulation Clinic Anticoagulation Episode Summary Anticoagulation Care Providers Provider Role Specialty Phone number Tien Serrano MD Referring Family Medicine [phone] Wilmer Morley is a 84 year old [...] Mon; 5 mg all other days Sent [employer] message Advised patient to continue current weekly [...] Pharmacy Anticoagulation Clinic Pharmacy Anticoagulation Clinic Pager: [phone]. [facility] 02-07-2025 Miscellaneous Notes [facility] Ambulatory Pharmacy Anticoagulation Clinic Anticoagulation Episode Summary Anticoagulation Care Providers Provider Role Specialty Phone number Tien Serrano MD Referring Family Medicine [phone] Wilmer Morley is a 84 year old [...] Pharmacy Anticoagulation Clinic Pharmacy Anticoagulation Clinic Pager: [phone]. documented in this encounter [facility] 01-28-2025 Telephone encounter Note Closing encounter as patient has not called back in over a week since results were given [facility] 01-28-2025 Miscellaneous Notes Closing encounter as patient [...] sleep apnea consult documented in this encounter [facility] 01-23-2025 Telephone encounter Note [facility] Ambulatory Pharmacy Anticoagulation Clinic Anticoagulation Episode Summary Anticoagulation Care Providers Provider Role Specialty Phone number Tien Serrano MD Referring Family Medicine [phone] Wilmer Morley is a 84 year old [...] Mon; 5 mg all other days Sent Aquaporin message Advised patient to continue current weekly dose as noted above Next INR check due on 02/13/2025 Namita Gee RPh Clinical Pharmacist, Pharmacy Anticoagulation Clinic Pharmacy Anticoagulation Clinic Pager: [phone]. [facility] 01-23-2025 Miscellaneous Notes [facility] Ambulatory Pharmacy Anticoagulation Clinic Anticoagulation Episode Summary Anticoagulation Care Providers Provider Role Specialty Phone number Tien Serrano MD Referring Family Medicine [phone] Wilmer Morley is a 84 year old [...] Mon; 5 mg all other days Sent Aquaporin message Advised patient to continue current weekly dose as noted above Next INR check due on 02/13/2025 Namita Gee [facility] Clinical Pharmacist, Pharmacy Anticoagulation Clinic Pharmacy Anticoagulation Clinic Pager: [phone]. documented in this encounter [facility] 01-19-2025 Telephone encounter Note Patient was made aware of the results. Patient verbalizes understanding. He would like to think on this and call back Stephany Stein Ma [facility] 01-19-2025 Telephone encounter Note Sleep study shows mild sleep apnea. We could consider cpap treatment or we can have him work on things like side sleeping and keeping weight tight if he does not want to. Let me know If he is willing to do cpap, we can set him up for autopap and a sleep apnea consult [facility] 01-17-2025 Note HNO ID: [id number] Author: MICHELLE GOMEZ, PT Service: ? Author [...] Planned: 1 Planned Treatment Interventions: Therapeutic exercise (04482), Neuromuscular re-education (39311), Manual therapy (18042), Therapeutic activities (82358), Self-prison management (89162), Gait Training (77791) PLAN FOR NEXT VISIT: DC Patient demonstrates [...] States/Identifies, Return Demonstration TREATMENT: PT Treatment Interventions: Self-Long-Term Management Evaluation Self-Long-Term Management: 1: advised activity modification and monitoring his vitals at (more content not included)... [facility] 01-17-2025 History of Present illness Narrative [...] Planned: 1 Planned Treatment Interventions: Therapeutic exercise (60806), Neuromuscular re-education (78453), Manual therapy (76080), Therapeutic activities (48766), Self-prison management (37287), Gait Training (72018) PLAN FOR NEXT VISIT: DC Patient demonstrates [...] States/Identifies, Return Demonstration TREATMENT: PT Treatment Interventions: Self-Long-Term Management Evaluation Self-Long-Term Management: 1: advised activity modification and monitoring [...] 943 Session Stop Time : 1026 Michelle Gomez PT documented in this encounter [facility] 01-16-2025 Note HNO ID: [id number] Author: BLAYNE DAVIS APRN.SR. OPERATIONS MANAGER Service: ? Author Type: Nurse Practitioner Type: Progress Notes Filed: 01/16/2025 14:42 Note Text: Patient triaged at [facility]. Here today with suture removal, surgical procedure removing skin cancer. I advised patient to have sutures removed via precast concrete ironworker. Appears to be a complex surgical removal. [facility] 01-16-2025 History of Present illness Narrative Patient triaged at [facility]. Here today with suture removal, surgical procedure removing skin cancer. I advised patient to have sutures removed via precast concrete ironworker. Appears to be a complex surgical removal. documented in this encounter [facility] 01-13-2025 Note HNO ID: [id number] Author: ?, ?, ? Service: ? Author Type: ? Type: Progress Notes Filed: 01/13/2025 16:38 Note Text: Date: January 13, 2025 Name: Wilmer Morley Comments HSAT have been returned in working order with QANDA completed online. Possible belt failure, unsure. Passing study through for readers to determine result status. Maureen Gilman [facility] 01-09-2025 Note HNO ID: [id number] Author: ?, ?, ? Service: ? Author Type: ? Type: Progress Notes Filed: 01/13/2025 16:38 Note Text: Nomad # [id number] , date shipped out 01-10-25 Fed ex only Tracking mailout: [id number] Tracking return: [id number] [facility] 01-09-2025 Telephone encounter Note [facility] Ambulatory Pharmacy Anticoagulation Clinic Anticoagulation Episode Summary Anticoagulation Care Providers Provider Role Specialty Phone number Tien Serrano MD Referring Family Medicine [phone] Wilmer Morley is a 84 year old [...] Mon; 5 mg all other days Sent Aquaporin message Advised patient to continue current weekly dose as noted above Next INR check due on 01/23/2025 Namita Gee RPh Clinical Pharmacist, Pharmacy Anticoagulation Clinic Pharmacy Anticoagulation Clinic Pager: [phone]. [facility] 01-09-2025 Miscellaneous Notes [facility] Ambulatory Pharmacy Anticoagulation Clinic Anticoagulation Episode Summary Anticoagulation Care Providers Provider Role Specialty Phone number Tien Serrano MD Referring Family Medicine [phone] Wilmer Morley is a 84 year old [...] Mon; 5 mg all other days Sent Aquaporin message Advised patient to continue current weekly dose as noted above Next INR check due on 01/23/2025 Namita Gee RPh Clinical Pharmacist, Pharmacy Anticoagulation Clinic Pharmacy Anticoagulation Clinic Pager: [phone]. documented in this encounter [facility] 01-02-2025 Telephone encounter Note The following approved medication requests have been transmitted electronically. Requested Prescriptions Pending Prescriptions Disp Refills doxazosin (CARDURA) 1 mg tablet 90 tablet 3 Sig: Take 1 tablet by mouth daily at bedtime. Alejandrina Quigley APRN.CNP [facility] 01-02-2025 Miscellaneous Notes The following approved medication [...] 2025 11:23 AM documented in this encounter [facility] 01-02-2025 Telephone encounter Note Prescription Refill Information [...] Laughlin LPN January 02, 2025 11:23 AM [facility] 12-22-2024 Telephone encounter Note [facility] Ambulatory Pharmacy Anticoagulation Clinic Anticoagulation Episode Summary Anticoagulation Care Providers Provider Role Specialty Phone number Tien Serrano MD Referring Family Medicine [phone] Wilmer Morley is a 83 year old [...] ALLERGIES No Known Allergies 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: longterm (current) use of anticoagulants History of dvt (deep vein thrombosis) Anticoagulation Episode Summary Current INR goal: 2.0-3.0 Assessment: INR result of 3.0 is therapeutic Plan: Current Warfarin Dosing As of 12/22/2024 Full warfarin instructions: 7.5 mg every Mon; 5 mg all other days Sent Aquaporin message Advised patient to continue current weekly dose as noted above Next home INR check scheduled on 01/04/2025 Patient advised to call the PAC with any medication changes, bleeding/bruising concerns, recent changes in vitamin k consumption, if any procedures are coming up, if they have been ill or in the hospital, and if they have missed any doses of warfarin. Jinny Shah [facility] Clinical Pharmacist, Pharmacy Anticoagulation Clinic Pharmacy Anticoagulation Clinic Pager: [phone]. 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 Jinny Shah [facility] Clinical Pharmacist, Pharmacy Anticoagulation Clinic Pharmacy Anticoagulation Clinic Pager: [phone]. documented in this encounter [facility] 12-20-2024 Note HNO ID: [id number] Author: MELQUIADES DEL VALLE APRN.SR. OPERATIONS MANAGER Service: ? Author Type: Nurse Practitioner Type: Progress Notes Filed: 01/13/2025 16:38 Note Text: December 20, 2024 Standing PSG Orders signed in the last 90 days None Future PSG Orders signed in the last 90 days Ordered Auth. provider HOME SLEEP APNEA TEST (HSAT) [[id number]] 12/07/24 Tien Serrano MD Assoc. diagnoses: MARY [...] agree to the plan. Melquiades Del Valle APRN.SR. OPERATIONS MANAGER 2:57 PM, 12/20/2024 [facility] 12-20-2024 Note HNO ID: [id number] Author: ?, ?, ? Service: ? Author Type: ? Type: Progress Notes Filed: 01/13/2025 16:38 Note Text: December 20, 2024 An order has been received for Home Sleep Apnea Test (HSAT) from Tien Sweeney [facility] Staff. Visit prep complete. Comments :No The sleep study is scheduled for 01/11. Insurance: Payor: [employer] MEDICARE / Plan: [employer] MEDICARE PPO / Product Type: PPO / Payer/Plan Subscr Sex Relation Sub. Ins. ID Effective Group Num 1. [employer] MEDICAR* MILLIWILMER Dian 1940 Male Self [id number] [birth year] [id number] Trista Thomas [facility] 12-07-2024 Telephone encounter Note [facility] Ambulatory Pharmacy Anticoagulation Clinic Anticoagulation Episode Summary Anticoagulation Care Providers Provider Role Specialty Phone number Tien Serrano MD Referring Family Medicine [phone] Wilmer Dian Morley is a 83 year [...] ALLERGIES No Known Allergies 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: longterm (current) use of anticoagulants Atrial fibrillation, unspecified [...] Pharmacy Anticoagulation Clinic Pharmacy Anticoagulation Clinic Pager: [phone]. 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 documented in this encounter [facility] 12-07-2024 Note HNO ID: [id number] Author: TIEN SERRANO MD Service: ? 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 2. Atrial fibrillation, unspecified type ([facility]) (I48.91) - Recent echocardiogram shows no significant changes over the last three years; left ventricular function remains stable. - Current heart rate controlled with atenolol, but patient reports fatigue and low heart rate in the 40s. - Discussed potential for ablation with boat camp operator Dr. Frank. - Continue current medication regimen; monitor heart rate and symptoms. 3. Essential hypertension, benign (I10) - Blood pressure well-controlled with recent readings under 120/50-60 mmHg. - Recent medication adjustments by boat camp operator, including discontinuation of Norvasc. - Continue monitoring blood pressure at home. 4. Chronic obstructive pulmonary disease, unspecified COPD type ([facility]) (J44.9) - Recent medication adjustments by Dr. Griffin have improved symptoms; no current wheezing. - Continue current medication regimen. 5. Stage 3a chronic kidney disease ([facility]) (N18.31) - Kidney function stable but requires monitoring due to recent initiation of Lasix 40 mg daily. - Ordered blood work to monitor kidney function, electrolytes, and magnesium levels. 6. Hyperglycemia (R73.9) - No current issues with hyperglycemia reported. 7. 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 8. History of DVT (deep vein thrombosis) (Z86.718) - No new DVT events reported. 9. Pulmonary HTN ([facility]) (I27.20) - No worsening symptoms reported. - Continue current management. 10. Congestive heart failure, unspecified HF chronicity, unspecified heart failure type ([facility]) (I50.9) - Recent BNP elevated at 2,170 pg/mL. - No worsening edema reported. - Continue current management and follow-up with boat camp operator. 11. MARY BETH (obstructive sleep apnea) (G47.33) - Symptoms of snoring and daytime fatigue reported. - Ordered home sleep study to evaluate for obstructive sleep apnea. (See patient after visit summary for additional instructions to patient) Tien Serrano MD Recording using [employer] software for draft documentation of the visit was discussed with the patient/authorized sales representative; all questions welcomed and answered. Patient/authorized sales representative agreed to proceed documented in this encounter [facility] 12-07-2024 Instructions Tien Serrano MD - 12/07/2024 9:31 AM EDT - Take atenolol exactly 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 - Continue [...] with Dr. Frank. documented in this encounter [facility] 11-28-2024 Telephone encounter Note The following approved medication requests have been transmitted electronically. Requested Prescriptions Pending Prescriptions Disp Refills sertraline (ZOLOFT) 100 mg tablet 90 tablet 1 Sig: Take 1 tablet by mouth once daily. Alejandrina Quigley APRN.CNP [facility] 11-28-2024 Miscellaneous Notes The following approved medication [...] 2024 5:52 PM documented in this encounter [facility] 11-28-2024 Telephone encounter Note Prescription Refill Information [...] Foss LPN November 28, 2024 5:52 PM [facility] 11-22-2024 Telephone encounter Note [facility] Ambulatory Pharmacy Anticoagulation Clinic Anticoagulation Episode Summary Anticoagulation Care Providers Provider Role Specialty Phone number Tien Serrano MD Referring Family Medicine [phone] Wilmer Morley is a 83 year old [...] Mon; 5 mg all other days Sent Aquaporin message Advised patient to continue current weekly [...] Pharmacy Anticoagulation Clinic Pharmacy Anticoagulation Clinic Pager: [phone]. [facility] 11-22-2024 Miscellaneous Notes [facility] Ambulatory Pharmacy Anticoagulation Clinic Anticoagulation Episode Summary Anticoagulation Care Providers Provider Role Specialty Phone number Tien Serrano MD Referring Family Medicine [phone] Wilmer Morley is a 83 year old [...] Mon; 5 mg all other days Sent Aquaporin message Advised patient to continue current weekly [...] Pharmacy Anticoagulation Clinic Pharmacy Anticoagulation Clinic Pager: [phone]. documented in this encounter [facility] 11-14-2024 History of Present illness Narrative Images from the original note were not included. . 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 Author Type: Physician Type: Progress Notes Filed: 11/14/2024 10:27 Note Text: . [facility] Note Patient name: Wilmer [place] PCP: Tien [...] k/uL 1.39 Monocytes % % 9.3 Abs Screven <0.87 k/uL 0.62 Eosinophils % % 4.4 [...] (HCC) 04/08/2018 COPD (more content not included)... [facility] 11-08-2024 Telephone encounter Note Patient notified of provider plan and is agreeable. Stephany Stein MA November 08, 2024 2:45 PM [facility] 11-08-2024 Miscellaneous Notes Patient notified of provider [...] pound. Printed lab results and faxed to [phone] as requested. Message left for return call. Angie Jean MA His labs are stable. His bnp is up a little higher. Verify with him but I think he is seeing his boat camp operator, Dr Frank in [place] this week? If he is, lets fax to him. Verify how feeling, any worsening swelling or shortness of breath? documented in this encounter [facility] 11-08-2024 Telephone encounter Note Ok. Can take a lasix today and keep appt with Dr Frank in tomorrow. Let me know what he says [facility] 11-08-2024 Telephone encounter Note Patient returned call and went over results, notes from Dr Serrano with understanding. Patient said yes, appt is 11/09/2024 at 9 am. He is feeling the same with the shortness of breath, no increase in swelling. His weight is stable within a pound. Printed lab results and faxed to [phone] as requested. [facility] 11-08-2024 Telephone encounter Note Message left for return call. Angie Jean MA [facility] 11-08-2024 Telephone encounter Note His labs are stable. His bnp is up a little higher. Verify with him but I think he is seeing his boat camp operator, Dr Frank in [place] this week? If he is, lets fax to him. Verify how feeling, any worsening swelling or shortness of breath? [facility] 11-07-2024 Telephone encounter Note Prescription Refill Information [...] Foss LPN November 07, 2024 5:35 PM [facility] 11-07-2024 Miscellaneous Notes Prescription Refill Information The [...] 2024 5:35 PM documented in this encounter [facility] 11-07-2024 Telephone encounter Note Prescription Refill Information [...] Foss LPN November 07, 2024 3:39 PM [facility] 11-07-2024 Miscellaneous Notes Prescription Refill Information The [...] 2024 3:39 PM documented in this encounter [facility] 11-07-2024 Telephone encounter Note [facility] Ambulatory Pharmacy Anticoagulation Clinic Anticoagulation Episode Summary Anticoagulation Care Providers Provider Role Specialty Phone number Tien eSrrano MD Referring Family Medicine [phone] Wilmer Morley is a 83 year old [...] Mon; 5 mg all other days Sent Aquapor[employer] message Advised patient to continue current weekly dose as noted above Next INR check due on 11/21/2024 Namita Gee RPh Clinical Pharmacist, Pharmacy Anticoagulation Clinic Pharmacy Anticoagulation Clinic Pager: [phone]. [facility] 11-07-2024 Miscellaneous Notes [facility] Ambulatory Pharmacy Anticoagulation Clinic Anticoagulation Episode Summary Anticoagulation Care Providers Provider Role Specialty Phone number Tien Serrano MD Referring Family Medicine [phone] Wilmer Morley is a 83 year old [...] Thu; 5 mg all other days Sent Aquaporin message Advised patient to continue current weekly dose as noted above Next INR check due on 11/21/2024 Namita Gee RPh Clinical Pharmacist, Pharmacy Anticoagulation Clinic Pharmacy Anticoagulation Clinic Pager: [phone]. documented in this encounter [facility] 11-02-2024 Instructions Tien Serrano MD - 11/02/2024 11:16 AM EDT Get labs on Thursday. Hold on further lasix unless we tell you to use it. Weigh daily and call if you gain more than three or four lbs in a 24 hours. Call if more short of breath or edema. documented in this encounter [facility] 11-02-2024 Note HNO ID: [id number] Author: TIEN SERRANO MD Service: ? Author [...] without alteration from previous ov: Wintered in [place]. Had elected initially not see pulmonary. Had [...] Abs Lymph 1.00 - 4.00 k/uL 1.39 Screven% % 9.3 Abs Screven <0.87 k/uL 0.62 Eosin% % 4.4 Abs [...] veins Other and (more content not included)... [facility] 11-02-2024 History of Present illness Narrative [...] without alteration from previous ov: Wintered in [place]. Had elected initially not see pulmonary. 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 Hold on it giving his longterm, given his ckd. . Will not use [...] Tien Serrano MD documented in this encounter [facility] 10-28-2024 Telephone encounter Note Cardio is scheduled November 09. He is already scheduled with us next week. Verbalizes understanding of instructions. [facility] 10-28-2024 Miscellaneous Notes Cardio is scheduled November 09. He is already scheduled with us next week. Verbalizes understanding of instructions. His bnp or chf test is up some which can cause shortness of breath. Add lasix 20 mg a day and follow up in one week. When does he see cardiology next? Check bmp when he comes in. documented in this encounter [facility] 10-28-2024 Telephone encounter Note His bnp or chf test is up some which can cause shortness of breath. Add lasix 20 mg a day and follow up in one week. When does he see cardiology next? Check bmp when he comes in. 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 GENERATORS: No RADIOLOGY DEPARTMENT: General X-ray: Exam(s) Completed: Chest X-Ray PERIPHERAL IV DATA: Not applicable SIGNED BY: RT Duc(R) October 11, 2024 11:01 AM documented in this encounter [facility] 10-11-2024 Note HNO ID: [id number] Author: ERIN POWER RT (R) Service: Radiology [...] PATIENT PRESENTS WITH AN IMPLANTABLE OR ATTACHED GAS ENGINE OPERATOR GENERATORS: No RADIOLOGY DEPARTMENT: General X-ray: Exam(s) Completed: Chest X-Ray PERIPHERAL IV DATA: Not applicable SIGNED BY: RT Duc(Verónica) October 11, 2024 11:01 AM [facility] 10-10-2024 Note HNO ID: [id number] Author: TIEN SERRANO MD Service: ? Author Type: Physician Type: Progress Notes Filed: 10/10/2024 19:47 Note Text: Patient presents with: Consult: Would like to see pulm. Had testing done in Feb. Breathing has gotten worse but just got back from [facility] HPI: Patient presents today for office visit for follow up. Wintered in [place]. Had elected initially not see pulmonary. 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 [facility] 10-10-2024 History of Present illness Narrative Patient presents with: Consult: Would like to see pulm. Had testing done in Feb. Breathing has gotten worse but just got back from [facility] HPI: Patient presents today for office visit for follow up. Wintered in [place]. Had elected initially not see pulmonary. 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 9. 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 Test inr at the end of the week. 10. History of DVT (deep vein thrombosis) - ICD9: V12.51, ICD10: Z86.718 - up to date on testing. 11. longterm 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 - [...] Tien Serrano MD documented in this encounter [facility] 10-10-2024 Telephone encounter Note [facility] Ambulatory Pharmacy Anticoagulation Clinic Anticoagulation Episode Summary Anticoagulation Care Providers Provider Role Specialty Phone number Tien Serrano MD Referring Family [facility] [phone] Wilmer Morley is a 83 year old [...] Pharmacy Anticoagulation Clinic Pharmacy Anticoagulation Clinic Pager: [phone]. [facility] 10-10-2024 Miscellaneous Notes [facility] Ambulatory Pharmacy Anticoagulation Clinic Anticoagulation Episode Summary Anticoagulation Care Providers Provider Role Specialty Phone number Tien Serrano MD Referring Family Medicine [phone] Wilmer Morley is a 83 year old [...] Pharmacy Anticoagulation Clinic Pharmacy Anticoagulation Clinic Pager: [phone]. Summer from [employer] calling to report the patient's INR result 10/08. PT INR (no units) Date Value 09/16/2021 2.9 09/02/2021 3.2 06/06/2021 2.5 biotel INR Home CoaguChek (no units) Date Value 10/08/2024 1.6 09/22/2024 2.7 09/06/2024 2.4 Ivania Villalobos RN Pharmacy Anticoagulation Clinic documented in this encounter [facility] 10-10-2024 Telephone encounter Note Summer from [employer] calling to report the patient's INR result 10/08. PT INR (no units) Date Value 09/16/2021 2.9 09/02/2021 3.2 06/06/2021 2.5 biotel INR Home CoaguChek (no units) Date Value 10/08/2024 1.6 09/22/2024 2.7 09/06/2024 2.4 Ivania Villalobos RN Pharmacy Anticoagulation Clinic [facility] 10-04-2024 Telephone encounter Note Patient MyChart message requesting the following refill Refill(s) Requested: Requested Prescriptions Pending Prescriptions Disp Refills flecainide (TAMBOCOR) 100 mg tablet 180 tablet 3 Sig: Take 1 tablet by mouth two times a day. ALLERGIES No Known Allergies (home) [phone] (cell) Last Office Visit Date: 05/02/2024 Last Distance Health Visit: Visit date not found Future Appointment: 10/10/2024 The patients preferred pharmacy has been captured for this encounter? yes Request is for script(s) to be escript to pharmacy. Heidy Benavides LPN [facility] 10-04-2024 Miscellaneous Notes Patient KangaDohart message requesting the following refill Refill(s) Requested: Requested Prescriptions Pending Prescriptions Disp Refills flecainide (TAMBOCOR) 100 mg tablet 180 tablet 3 Sig: Take 1 tablet by mouth two times a day. ALLERGIES No Known Allergies (home) [phone] (cell) Last Office Visit Date: 05/02/2024 Last Distance [facility] Visit: Visit date not found Future Appointment: 10/10/2024 The patients preferred pharmacy has been captured for this encounter? yes Request is for script(s) to be escript to pharmacy. 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 documented in this encounter [facility] 09-06-2024 Miscellaneous Notes [facility] Ambulatory Pharmacy Anticoagulation Clinic Anticoagulation Episode Summary Anticoagulation Care Providers Provider Role Specialty Phone number Tien Serrano MD Referring Family Medicine [phone] Wilmer Morley is a 83 year old [...] Mon; 5 mg all other days Sent Aquaporin message Advised patient to continue current weekly [...] Pharmacy Anticoagulation Clinic Pharmacy Anticoagulation Clinic Pager: [phone]. documented in this encounter [facility] 09-06-2024 Telephone encounter Note [facility] Ambulatory Pharmacy Anticoagulation Clinic Anticoagulation Episode Summary Anticoagulation Care Providers Provider Role Specialty Phone number Tien Serrano MD Referring Family Medicine [phone] Wilmer Morley is a 83 year old [...] Mon; 5 mg all other days Sent Aquaporin message Advised patient to continue current weekly [...] Pharmacy Anticoagulation Clinic Pharmacy Anticoagulation Clinic Pager: [phone]. [facility] 08-19-2024 Telephone encounter Note Prescription Refill Information [...] Rebollar LPN August 19, 2024 10:12 AM [facility] 08-19-2024 Miscellaneous Notes Prescription Refill Information The [...] 2024 10:12 AM documented in this encounter [facility] 08-17-2024 Telephone encounter Note [facility] Ambulatory Pharmacy Anticoagulation Clinic Anticoagulation Episode Summary Anticoagulation Care Providers Provider Role Specialty Phone number Tien Serrano MD Referring Family Medicine [phone] Wilmer Morley is a 83 year old [...] ALLERGIES No Known Allergies 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 [facility] 08-17-2024 Miscellaneous Notes [facility] Ambulatory Pharmacy Anticoagulation Clinic Anticoagulation Episode Summary Anticoagulation Care Providers Provider Role Specialty Phone number Tien Serrano MD Referring Family Medicine [phone] Wilmer Morley is a 83 year old [...] ALLERGIES No Known Allergies 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: longterm (current) use of anticoagulants Atrial fibrillation, unspecified type (hcc) History of dvt (deep vein thrombosis) Anticoagulation Episode Summary Current INR goal: 2.0-3.0 Assessment: INR result of 2.0 is therapeutic Plan: Current Warfarin Dosing As of 08/17/2024 Full warfarin instructions: 7.5 mg every Mon; 5 mg all other days Sent Aquaporin message Advised patient to continue current weekly [...] Pharmacy Anticoagulation Clinic Pharmacy Anticoagulation Clinic Pager: [phone]. documented in this encounter [facility] 08-02-2024 Telephone encounter Note [facility] Ambulatory Pharmacy Anticoagulation Clinic Anticoagulation Episode Summary Anticoagulation Care Providers Provider Role Specialty Phone number Tien Serrano MD Referring Family Medicine [phone] Wilmer Morley is a 83 year old [...] Mon; 5 mg all other days Sent Aquaporin message Advised patient to continue current weekly [...] Pharmacy Anticoagulation Clinic Pharmacy Anticoagulation Clinic Pager: [phone]. [facility] 08-02-2024 Miscellaneous Notes [facility] Ambulatory Pharmacy Anticoagulation Clinic Anticoagulation Episode Summary Anticoagulation Care Providers Provider Role Specialty Phone number Tien Serrano MD Referring Family Medicine [phone] Wilmer Morley is a 83 year old [...] Mon; 5 mg all other days Sent Aquaporin message Advised patient to continue current weekly [...] Pharmacy Anticoagulation Clinic Pharmacy Anticoagulation Clinic Pager: [phone]. documented in this encounter [facility] 07-15-2024 Telephone encounter Note [facility] Ambulatory Pharmacy Anticoagulation Clinic Anticoagulation Episode Summary Anticoagulation Care Providers Provider Role Specialty Phone number Tien Serrano MD Referring Family Medicine [phone] Wilmer Morley is a 83 year old [...] Pharmacy Anticoagulation Clinic Pharmacy Anticoagulation Clinic Pager: [phone]. [facility] 07-15-2024 Miscellaneous Notes [facility] Ambulatory Pharmacy Anticoagulation Clinic Anticoagulation Episode Summary Anticoagulation Care Providers Provider Role Specialty Phone number Tien Serrano MD Referring Family Medicine [phone] Wilmer Morley is a 83 year old [...] Pharmacy Anticoagulation Clinic Pharmacy Anticoagulation Clinic Pager: [phone]. 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 [facility] 06-29-2024 Miscellaneous Notes [facility] Ambulatory Pharmacy Anticoagulation Clinic Anticoagulation Episode Summary Anticoagulation Care Providers Provider Role Specialty Phone number Tien Serrano MD Referring Family Medicine [phone] Wilmer Morley is a 83 year old [...] ALLERGIES No Known Allergies 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: longterm (current) use of anticoagulants Atrial fibrillation, unspecified [...] Pharmacy Anticoagulation Clinic Pharmacy Anticoagulation Clinic Pager: [phone]. documented in this encounter [facility] 06-27-2024 Telephone encounter Note Patient's calls and states that [facility] shipped out medications to [place] address and not where they currently are living. states that she talked to [employer] and they are going to need a [...] Zuniga RN June 27, 2024 12:05 PM [facility] 06-27-2024 Miscellaneous Notes Patient's calls and states that [facility] shipped out medications to [place] address and not where they currently are living. states that she talked to [employer] and they are going to need a [...] 2024 12:05 PM documented in this encounter [facility] 06-14-2024 Telephone encounter Note [facility] Ambulatory Pharmacy Anticoagulation Clinic Anticoagulation Episode Summary Anticoagulation Care Providers Provider Role Specialty Phone number Tien Serrano MD Referring Family Medicine [phone] Wilmer Morley is a 83 year old [...] Pharmacy Anticoagulation Clinic Pharmacy Anticoagulation Clinic Pager: [phone]. [facility] 06-14-2024 Miscellaneous Notes [facility] Ambulatory Pharmacy Anticoagulation Clinic Anticoagulation Episode Summary Anticoagulation Care Providers Provider Role Specialty Phone number Tien Serrano MD Referring Family Medicine [phone] Wilmer Morley is a 83 year old [...] Pharmacy Anticoagulation Clinic Pharmacy Anticoagulation Clinic Pager: [phone]. documented in this encounter [facility] 06-09-2024 Telephone encounter Note Prescription Refill Information [...] Gonzalez LPN June 09, 2024 2:10 PM [facility] 06-09-2024 Miscellaneous Notes Prescription Refill Information The [...] 2024 2:10 PM documented in this encounter [facility] 05-24-2024 Telephone encounter Note [facility] Ambulatory Pharmacy Anticoagulation Clinic Anticoagulation Episode Summary Anticoagulation Care Providers Provider Role Specialty Phone number Tien Serrano MD Referring Family Medicine [phone] Wilmer Morley is a 83 year old [...] Pharmacy Anticoagulation Clinic Pharmacy Anticoagulation Clinic Pager: [phone]. [facility] 05-24-2024 Miscellaneous Notes [facility] Ambulatory Pharmacy Anticoagulation Clinic Anticoagulation Episode Summary Anticoagulation Care Providers Provider Role Specialty Phone number Tien Serrano MD Referring Family Medicine [phone] Wilmer Morley is a 83 year old [...] Pharmacy Anticoagulation Clinic Pharmacy Anticoagulation Clinic Pager: [phone]. documented in this encounter [facility] 05-09-2024 Telephone encounter Note [facility] Ambulatory Pharmacy Anticoagulation Clinic Anticoagulation Episode Summary Anticoagulation Care Providers Provider Role Specialty Phone number Tien Serrano MD Referring Family Medicine [phone] Wilmer Morley is a 83 year old [...] Fri; 5 mg all other days Sent Aquaporin message Advised patient to continue current weekly dose as noted above Next INR check due on 05/23/2024 Namita Gee RPh Clinical Pharmacist, Pharmacy Anticoagulation Clinic Pharmacy Anticoagulation Clinic Pager: [phone]. [facility] 05-09-2024 Miscellaneous Notes [facility] Ambulatory Pharmacy Anticoagulation Clinic Anticoagulation Episode Summary Anticoagulation Care Providers Provider Role Specialty Phone number Tien Serrano MD Referring Family Medicine [phone] Wilmer Morley is a 83 year old [...] Fri; 5 mg all other days Sent Aquaporin message Advised patient to continue current weekly dose as noted above Next INR check due on 05/23/2024 Namita Gee RPh Clinical Pharmacist, Pharmacy Anticoagulation Clinic Pharmacy Anticoagulation Clinic Pager: [phone]. documented in this encounter [facility] 05-02-2024 Note HNO ID: [id number] Author: TIEN SERRANO MD Service: ? Author [...] discussed can be a normal finding. 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 [facility] 05-02-2024 History of Present illness Narrative [...] discussed can be a normal finding. 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 [...] Father CHF Heart Mother CHF Heart Brother PA - rheumatic fever Cancer Brother gastric Asthma [...] months and prn. documented in this encounter [facility] 04-20-2024 Telephone encounter Note [facility] Ambulatory Pharmacy Anticoagulation Clinic Anticoagulation Episode Summary Anticoagulation Care Providers Provider Role Specialty Phone number Tien Serrano MD Referring Family Medicine [phone] Wilmer Morley is a 83 year old [...] ALLERGIES No Known Allergies 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: longterm (current) use of anticoagulants Atrial fibrillation, unspecified type (hcc) History of dvt (deep vein thrombosis) Anticoagulation Episode Summary Current INR goal: 2.0-3.0 Assessment: INR result of 2.0 is therapeutic Plan: Current Warfarin Dosing As of 04/20/2024 Full warfarin instructions: 7.5 mg every Mon, Fri; 5 mg all other days Sent Aquaporin message Advised patient to continue current weekly [...] Pharmacy Anticoagulation Clinic Pharmacy Anticoagulation Clinic Pager: [phone]. [facility] 04-20-2024 Miscellaneous Notes [facility] Ambulatory Pharmacy Anticoagulation Clinic Anticoagulation Episode Summary Anticoagulation Care Providers Provider Role Specialty Phone number Tien Serrano MD Referring Family Medicine [phone] Wilmer Morley is a 83 year old [...] ALLERGIES No Known Allergies 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: longterm (current) use of anticoagulants Atrial fibrillation, unspecified type (hcc) History of dvt (deep vein thrombosis) Anticoagulation Episode Summary Current INR goal: 2.0-3.0 Assessment: INR result of 2.0 is therapeutic Plan: Current Warfarin Dosing As of 04/20/2024 Full warfarin instructions: 7.5 mg every Mon, Fri; 5 mg all other days Sent Aquaporin message Advised patient to continue current weekly [...] Pharmacy Anticoagulation Clinic Pharmacy Anticoagulation Clinic Pager: [phone]. documented in this encounter [facility] 04-01-2024 Telephone encounter Note Prescription Refill Information [...] Hair LPN April 01, 2024 9:40 AM [facility] 04-01-2024 Miscellaneous Notes Prescription Refill Information The [...] 2024 9:40 AM documented in this encounter [facility] 03-31-2024 Telephone encounter Note [facility] Ambulatory Pharmacy Anticoagulation Clinic Anticoagulation Episode Summary Anticoagulation Care Providers Provider Role Specialty Phone number Tien Serrano MD Referring Family Medicine [phone] Wilmer Morley is a 83 year old [...] ALLERGIES No Known Allergies 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: longterm (current) use of anticoagulants History of dvt (deep vein thrombosis) Anticoagulation Episode Summary Current INR goal: 2.0-3.0 Assessment: INR result of 2.6 is therapeutic Plan: Current Warfarin Dosing As of 03/31/2024 Full warfarin instructions: 7.5 mg every Mon, Fri; 5 mg all other days Sent Aquaporin message Advised patient to continue current weekly [...] Pharmacy Anticoagulation Clinic Pharmacy Anticoagulation Clinic Pager: [phone]. [facility] 03-31-2024 Miscellaneous Notes [facility] Ambulatory Pharmacy Anticoagulation Clinic Anticoagulation Episode Summary Anticoagulation Care Providers Provider Role Specialty Phone number Tien Serrano MD Referring Family Medicine [phone] Wilmer Morley is a 83 year old [...] ALLERGIES No Known Allergies 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: longterm (current) use of anticoagulants History of dvt (deep vein thrombosis) Anticoagulation Episode Summary Current INR goal: 2.0-3.0 Assessment: INR result of 2.6 is therapeutic Plan: Current Warfarin Dosing As of 03/31/2024 Full warfarin instructions: 7.5 mg every Mon, Fri; 5 mg all other days Sent Aquaporin message Advised patient to continue current weekly dose as noted above Next home INR check scheduled on 04/14/2024 Patient advised to call the PAC with any medication changes, bleeding/bruising concerns, recent changes in vitamin k consumption, if any procedures are coming up, if they have been ill or in the hospital, and if they have missed any doses of warfarin. Jinny Shah [facility] Clinical Pharmacist, Pharmacy Anticoagulation Clinic Pharmacy Anticoagulation Clinic Pager: [phone]. documented in this encounter [facility] 03-30-2024 History of Present illness Narrative Program_ID:[id number] Access Code: [email or web address] URL: [email or web address] Date: 03-30-2024 Prepared By: Michelle Gomez [...] treatment included: Therapeutic exercise, Neuromuscular re-education, and Self-prison management. Goals for Episode of Care: created [...] and dynamic activities. Patient education as noted. Self-Long-Term Management: 1: advised that pt. take inhaler as Rx'd for the benefit of improving airway dialation 2: discussed that symptoms that increase with exertion are to be discussed with boat camp operator Skilled Intervention: Skilled judgment in the selection [...] Michelle Gomez PT documented in this encounter [facility] 03-30-2024 Note HNO ID: [id number] Author: MICHELLE GOMEZ PT Service: ? Author [...] treatment included: Therapeutic exercise, Neuromuscular re-education, and Self-prison management. Goals for Episode of Care: created [...] and dynamic activities. Patient education as noted. Self-Long-Term Management: 1: advised that pt. take inhaler as Rx'd for the benefit of improving airway dialation 2: discussed that symptoms that increase with exertion are to be discussed with boat camp operator Skilled Intervention: Skilled judgment in the selection [...] Stop Time : 1006 Michelle Gomez, PT [facility] 03-23-2024 Note HNO ID: [id number] Author: KATY GALDAMEZ APRN.SR. OPERATIONS MANAGER Service: ? Author Type: Nurse Practitioner Type: [...] 10 years ESOPHAGOGASTRODUODENOSCOPY TRANSORAL DIAGNOSTIC N/A [facility] basal [...] Father CHF Heart Mother CHF Heart Brother PA - rheumatic fever Cancer Brother gastric Asthma [...] syndrome with di (more content not included)... [facility] 03-23-2024 History of Present illness Narrative [...] FLX DX W/COLLJ SPEC WHEN PFRMD 03/09/2018 [facility] 10 years ESOPHAGOGASTRODUODENOSCOPY TRANSORAL DIAGNOSTIC N/A 08/16/2020 [facility]ST [facility] HISTORY OF 2010 basal [...] Father CHF Heart Mother CHF Heart Brother PA - rheumatic fever Cancer Brother gastric Asthma [...] as needed for worsening/no improvement. Katy Galdamez APRN.SR. OPERATIONS MANAGER documented in this encounter [facility] 03-16-2024 Telephone encounter Note [facility] Ambulatory Pharmacy Anticoagulation Clinic Anticoagulation Episode Summary Anticoagulation Care Providers Provider Role Specialty Phone number Tien Serrano MD Referring Family Medicine [phone] Wilmer Morley is a 83 year old [...] ALLERGIES No Known Allergies 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: longterm (current) use of anticoagulants Atrial fibrillation, unspecified type (hcc) History of dvt (deep vein thrombosis) Anticoagulation Episode Summary Current INR goal: 2.0-3.0 Assessment: INR result of 2.6 is therapeutic Plan: Current Warfarin Dosing As of 03/16/2024 Full warfarin instructions: 7.5 mg every Mon, Fri; 5 mg all other days Sent Aquaporin message Advised patient to continue current weekly [...] Pharmacy Anticoagulation Clinic Pharmacy Anticoagulation Clinic Pager: [phone]. 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 documented in this encounter [facility] 03-16-2024 Note HNO ID: [id number] Author: MICHELLE GOMEZ, PT Service: ? Author [...] Patient to be seen for Therapeutic exercise (21215), Neuromuscular re-education (03043), Manual therapy (98183), Self-prison management (46899), Gait Training (51684), Therapeutic activities (64528) PLAN FOR NEXT VISIT: NANDINI SUBJECTIVE: Pt. [...] with an (*). Patient education as noted. Self-Long-Term Management: 1: suggested hallway motion detector lights [...] daily living/home manage (more content not included)... [facility] 03-16-2024 History of Present illness Narrative [...] Patient to be seen for Therapeutic exercise (76013), Neuromuscular re-education (65061), Manual therapy (10803), Self-prison management (88930), Gait Training (28188), Therapeutic activities (11122) PLAN FOR NEXT VISIT: NANDINI SUBJECTIVE: Pt. [...] with an (*). Patient education as noted. Self-Long-Term Management: 1: suggested hallway motion detector lights [...] Michelle Gomez PT documented in this encounter [facility] 03-03-2024 Telephone encounter Note [facility] Ambulatory Pharmacy Anticoagulation Clinic Anticoagulation Episode Summary Anticoagulation Care Providers Provider Role Specialty Phone number Tien Serrano MD Referring Family Medicine [phone] Wilmer Morley is a 83 year old [...] ALLERGIES No Known Allergies 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: longterm (current) use of anticoagulants History of dvt (deep vein thrombosis) Anticoagulation Episode Summary Current INR goal: 2.0-3.0 Assessment: INR result of 2.3 is therapeutic Plan: Current Warfarin Dosing As of 03/03/2024 Full warfarin instructions: 7.5 mg every Mon, Fri; 5 mg all other days Sent Aquaporin message Advised patient to continue current weekly dose as noted above Next home INR check scheduled on 03/16/2024 Jinny Shah RPh Clinical Pharmacist, Pharmacy Anticoagulation Clinic Pharmacy Anticoagulation Clinic Pager: [phone]. 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 documented in this encounter [facility] 02-29-2024 Note HNO ID: [id number] Author: MICHELLE GOMEZ PT Service: ? Author [...] example that his drove for him to [facility]. He has 1 drink a day and [...] with an (*). Patient education as noted. Self-Long-Term Management: 1: discussed how balance deficits can [...] Stop Time : 1306 Michelle Gomez, PT [facility] 02-29-2024 History of Present illness Narrative [...] example that his drove for him to [facility]. He has 1 drink a day and [...] with an (*). Patient education as noted. Self-Long-Term Management: 1: discussed how balance deficits can [...] Michelle Gomez PT documented in this encounter [facility] 02-18-2024 Telephone encounter Note [facility] Ambulatory Pharmacy Anticoagulation Clinic Anticoagulation Episode Summary Anticoagulation Care Providers Provider Role Specialty Phone number Tien Serrano MD Referring Family Medicine [phone] Wilmer Morley is a 83 year old [...] ALLERGIES No Known Allergies 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: longterm (current) use of anticoagulants History of dvt (deep vein thrombosis) Anticoagulation Episode Summary Current INR goal: 2.0-3.0 Assessment: INR result of 2.5 is therapeutic Plan: Current Warfarin Dosing As of 02/18/2024 Full warfarin instructions: 7.5 mg every Mon, Fri; 5 mg all other days Sent Aquaporin message Advised patient to continue current weekly dose as noted above Next home INR check scheduled on 03/02/2024 Jinny Shah RPh Clinical Pharmacist, Pharmacy Anticoagulation Clinic Pharmacy Anticoagulation Clinic Pager: [phone]. [facility] 02-18-2024 Miscellaneous Notes [facility] Ambulatory Pharmacy Anticoagulation Clinic Anticoagulation Episode Summary Anticoagulation Care Providers Provider Role Specialty Phone number Tien Serrano MD Referring Family Medicine [phone] Wilmer Morley is a 83 year old [...] ALLERGIES No Known Allergies 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: longterm (current) use of anticoagulants History of dvt (deep vein thrombosis) Anticoagulation Episode Summary Current INR goal: 2.0-3.0 Assessment: INR result of 2.5 is therapeutic Plan: Current Warfarin Dosing As of 02/18/2024 Full warfarin instructions: 7.5 mg every Mon, Fri; 5 mg all other days Sent Aquaporin message Advised patient to continue current weekly dose as noted above Next home INR check scheduled on 03/02/2024 Jinny Shah [facility] Clinical Pharmacist, Pharmacy Anticoagulation Clinic Pharmacy Anticoagulation Clinic Pager: [phone]. documented in this encounter [facility] 02-15-2024 History of Present illness Narrative Episode [...] with an (*). Patient education as noted. Self-Long-Term Management: 1: discussed difference between symptoms that [...] Michelle Gomez PT documented in this encounter [facility] 02-12-2024 Telephone encounter Note Pt called and is notified of providers results and instructions. Pt voices understanding. Lakisha Morales RN [facility] 02-12-2024 Miscellaneous Notes Pt called and is notified of providers results and instructions. Pt voices understanding. Lakisha Morales RN Pfts show moderate asthma/copd. Can cause breathing issues. Add albuterol prn and maintenance inhaler. To take daily documented in this encounter [facility] 02-12-2024 Telephone encounter Note Pfts show moderate asthma/copd. Can cause breathing issues. Add albuterol prn and maintenance inhaler. To take daily [facility] 02-11-2024 History of Present illness Narrative PULM FUNCTION: Provider: Tien Serrano MD Assisting Tech: Bhavya Montaño RPFT Spirometry w/BD: 1 LV - Box: 1 6 MW: 1 documented in this encounter [facility] 02-10-2024 History of Present illness Narrative Radiology [...] PATIENT PRESENTS WITH AN IMPLANTABLE OR ATTACHED GAS ENGINE OPERATOR GENERATORS: No RADIOLOGY DEPARTMENT: General X-ray: Exam(s) Completed: Chest X-Ray PERIPHERAL IV DATA: Not applicable SIGNED BY: RT Duc(R) February 10, 2024 12:44 PM documented in this encounter [facility] 02-10-2024 History of Present illness Narrative Patient [...] discussed can be a normal finding. 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 [...] Father CHF Heart Mother CHF Heart Brother PA - rheumatic fever Cancer Brother gastric Asthma [...] in six weeks documented in this encounter [facility] 02-02-2024 History of Present illness Narrative Images [...] Planned: 6 Planned Treatment Interventions: Therapeutic exercise (30350), Neuromuscular re-education (09443), Manual therapy (82856), Therapeutic activities (18507), Self-prison management (30933), Gait Training (78706), General Conditioning PLAN FOR NEXT VISIT: balance [...] Demonstration TREATMENT: PT Treatment Interventions: Therapeutic Exercise, Self-Long-Term Management Evaluation Self-Long-Term Management: 1: discussed negative vestibular testing with [...] 0930 Session Stop Time : 1015 Michelle Gomez PT documented in this encounter [facility] 01-30-2024 Telephone encounter Note Rx pending to correct pharmacy. Tra Foss LPN [facility] 01-30-2024 Miscellaneous Notes Rx pending to correct pharmacy. Tra Foss LPN documented in this encounter [facility] 01-29-2024 Telephone encounter Note The following approved medication requests have been transmitted electronically. Requested Prescriptions Pending Prescriptions Disp Refills flecainide (TAMBOCOR) 100 mg tablet 180 tablet 3 Sig: Take 1 tablet by mouth two times a day. Alejandrina Quigley APRN.CNP [facility] 01-29-2024 Miscellaneous Notes The following approved medication [...] 2024 10:20 AM documented in this encounter [facility] 01-29-2024 Telephone encounter Note Prescription Refill Information [...] Gonzalez LPN January 29, 2024 10:20 AM [facility] 01-21-2024 Telephone encounter Note [facility] Ambulatory Pharmacy Anticoagulation Clinic Anticoagulation Episode Summary Anticoagulation Care Providers Provider Role Specialty Phone number Tien Serrano MD Referring Family Medicine [phone] Wilmer Morley is a 83 year old [...] ALLERGIES No Known Allergies 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: longterm (current) use of anticoagulants History of dvt (deep vein thrombosis) Anticoagulation Episode Summary Current INR goal: 2.0-3.0 Assessment: INR result of 2.2 is therapeutic Plan: Current Warfarin Dosing As of 01/21/2024 Full warfarin instructions: 7.5 mg every Mon, Fri; 5 mg all other days Sent Aquaporin message Advised patient to continue current weekly dose as noted above Next home INR check scheduled on 02/04/2024 Jinny Shah RPh Clinical Pharmacist, Pharmacy Anticoagulation Clinic Pharmacy Anticoagulation Clinic Pager: [phone]. 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 documented in this encounter [facility] 01-11-2024 Telephone encounter Note Prescription Refill Information [...] Rebollar LPN January 11, 2024 11:10 AM [facility] 01-11-2024 Miscellaneous Notes Prescription Refill Information The [...] 2024 11:10 AM documented in this encounter [facility] 01-05-2024 Telephone encounter Note PAC received faxed request for office/clinical notes to continue home INR meter enrollment. Fax has been scanned into patient's chart and are located under 'Scanned Documents'. Will fax requested documents to [facility], as requested. Lakisha Avila CPhT (Clearing House Clerk) Pharmacy Anticoagulation Clinic [facility] 01-05-2024 Miscellaneous Notes PAC received faxed request for office/clinical notes to continue home INR meter enrollment. Fax has been scanned into patient's chart and are located under 'Scanned Documents'. Will fax requested documents to [facility], as requested. Lakisha Avila CPhT (Clearing House Clerk) Pharmacy Anticoagulation Clinic documented in this encounter [facility] 12-29-2023 History of Present illness Narrative Patient [...] Father CHF Heart Mother CHF Heart Brother PA - rheumatic fever Cancer Brother gastric Asthma [...] weeks or prn documented in this encounter [facility] 12-18-2023 Telephone encounter Note [facility] Ambulatory Pharmacy Anticoagulation Clinic Anticoagulation Episode Summary Anticoagulation Care Providers Provider Role Specialty Phone number Tien Serrano MD Referring Family Medicine [phone] Wilmer Morely is a 82 year old year old [...] Fri; 5 mg all other days Sent Aquaporin message Advised patient to continue current weekly dose as noted above Next home INR check scheduled on 01/01/2024 Arabella Lopez RPh Clinical Pharmacist, Pharmacy Anticoagulation Clinic Pharmacy Anticoagulation Clinic Pager: [phone]. [facility] 12-18-2023 Miscellaneous Notes [facility] Ambulatory Pharmacy Anticoagulation Clinic Anticoagulation Episode Summary Anticoagulation Care Providers Provider Role Specialty Phone number Tien Serrano MD Referring Family Medicine [phone] Wilmer Morley is a 82 year old [...] Fri; 5 mg all other days Sent Aquaporin message Advised patient to continue current weekly dose as noted above Next home INR check scheduled on 01/01/2024 Arabella Lopez RPh Clinical Pharmacist, Pharmacy Anticoagulation Clinic Pharmacy Anticoagulation Clinic Pager: [phone]. 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 documented in this encounter [facility] 11-27-2023 Telephone encounter Note [facility] Ambulatory Pharmacy Anticoagulation Clinic Anticoagulation Episode Summary Anticoagulation Care Providers Provider Role Specialty Phone number Tien Serrano MD Referring Family Medicine [phone] Wilmer Morley is a 82 year old [...] Pharmacy Anticoagulation Clinic Pharmacy Anticoagulation Clinic Pager: [phone]. [facility] 11-27-2023 Miscellaneous Notes [facility] Ambulatory Pharmacy Anticoagulation Clinic Anticoagulation Episode Summary Anticoagulation Care Providers Provider Role Specialty Phone number Tien Serrano MD Referring Family Medicine [phone] Wilmer Morley is a 82 year old [...] Pharmacy Anticoagulation Clinic Pharmacy Anticoagulation Clinic Pager: [phone]. PATIENT CALL Patient called call center regarding [...] 10/12/2023 2.6 Patient can be reached at [phone] to discuss Robel Stanford ([email or web address]) [facility] Ambulatory Pharmacy Anticoagulation Clinic Anticoagulation Episode Summary Anticoagulation Care Providers Provider Role Specialty Phone number Tien Serrano MD Referring Family Medicine [phone] Wilmer Morley is a 82 year old [...] Pharmacy Anticoagulation Clinic Pharmacy Anticoagulation Clinic Pager: [phone]. documented in this encounter [facility] 11-27-2023 Telephone encounter Note PATIENT CALL Patient [...] 10/12/2023 2.6 Patient can be reached at [phone] to discuss Robel Stanford ([email or web address]) [facility] 11-27-2023 Telephone encounter Note [facility] Ambulatory Pharmacy Anticoagulation Clinic Anticoagulation Episode Summary Anticoagulation Care Providers Provider Role Specialty Phone number Tien Serrano MD Referring Family Medicine [phone] Wilmer Morley is a 82 year old [...] Pharmacy Anticoagulation Clinic Pharmacy Anticoagulation Clinic Pager: [phone]. [facility] 11-12-2023 Telephone encounter Note Patient was notified Lia Willard MA [facility] 11-12-2023 Miscellaneous Notes Patient was notified Lia Willard MA Kidney function still slightly up. Encourage fluids and recheck labs in a few weeks. documented in this encounter [facility] 11-12-2023 Telephone encounter Note Kidney function still slightly up. Encourage fluids and recheck labs in a few weeks. [facility] 11-11-2023 Nurse Note Ambulatory Ear Lavage Pre-treatment: No pre-treatment Treatment: Left ear Equipment and Irrigation solution and Volume used: Single use syringe with single use irrigation tip Return flow appearance: Clear Patient tolerated procedure: yes Tympanic membrane assessment: Tympanic membrane assessed by LIP pre and post procedure [facility] 11-11-2023 Nurse Note Ambulatory Ear Lavage Pre-treatment: No pre-treatment Treatment: Left ear Equipment and Irrigation solution and Volume used: Single use syringe with single use irrigation tip Return flow appearance: Clear Patient tolerated procedure: yes Tympanic membrane assessment: Tympanic membrane assessed by LIP pre and post procedure documented in this encounter [facility] 11-11-2023 History of Present illness Narrative Patient [...] 10 years ESOPHAGOGASTRODUODENOSCOPY TRANSORAL DIAGNOSTIC N/A [facility] 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 8. 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 9. 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 documented in this encounter [facility] 10-15-2023 Telephone encounter Note The following approved medication requests have been transmitted electronically. Requested Prescriptions Pending Prescriptions Disp Refills lisinopril (ZESTRIL) 10 mg tablet 90 tablet 1 Sig: Take 1 tablet by mouth once daily. sertraline (ZOLOFT) 100 mg tablet 90 tablet 1 Sig: Take 1 tablet by mouth once daily. Alejandrina Quigley APRN.CNS [facility] 10-15-2023 Miscellaneous Notes The following approved medication [...] Velma Gonzalez LPN documented in this encounter [facility] 10-15-2023 Telephone encounter Note Patient has been [...] notify patient. Scheduled 11/11/23 Velma Gonzalez LPN [facility] 10-13-2023 Telephone encounter Note [facility] Ambulatory Pharmacy Anticoagulation Clinic Anticoagulation Episode Summary Anticoagulation Care Providers Provider Role Specialty Phone number Tien Serrano MD Referring Family Medicine [phone] Wilmer Morley is a 82 year old [...] Fri; 5 mg all other days Sent Aquaporin message Advised patient to continue current weekly dose as noted above Next home INR check scheduled on 10/27/2023 Arabella Lopez RPh Clinical Pharmacist, Pharmacy Anticoagulation Clinic Pharmacy Anticoagulation Clinic Pager: [phone]. [facility] 10-13-2023 Miscellaneous Notes [facility] Ambulatory Pharmacy Anticoagulation Clinic Anticoagulation Episode Summary Anticoagulation Care Providers Provider Role Specialty Phone number Tien Serrano MD Referring Family Medicine [phone] Wilmer Morley is a 82 year old [...] Fri; 5 mg all other days Sent Aquaporin message Advised patient to continue current weekly dose as noted above Next home INR check scheduled on 10/27/2023 Arabella Lopez RPh Clinical Pharmacist, Pharmacy Anticoagulation Clinic Pharmacy Anticoagulation Clinic Pager: [phone]. documented in this encounter [facility] 09-24-2023 Miscellaneous Notes [facility] Ambulatory Pharmacy Anticoagulation Clinic Anticoagulation Episode Summary Anticoagulation Care Providers Provider Role Specialty Phone number Tien Serrano MD Referring Family Medicine [phone] Wilmer Morley is a 82 year old [...] Pharmacy Anticoagulation Clinic Pharmacy Anticoagulation Clinic Pager: [phone]. documented in this encounter [facility] 09-24-2023 History of Past i llness Narrative [...] of this encounter (statuses as of 09/25/2023) [facility]04-03-2024 Miscellaneous Notes* Telephone Encounter - Bea Adan RPh - 09/09/2023 4:58 PM EDT [facility] Ambulatory Pharmacy Anticoagulation Clinic Anticoagulation Episode Summary Anticoagulation Care Providers Provider Role Specialty Phone number Tien Serrano MD Referring Family Medicine [phone] Wilmer Morley is a 82 year old [...] ALLERGIES No Known Allergies 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: longterm (current) use of anticoagulants Atrial fibrillation, unspecified type (hcc) History of dvt (deep vein thrombosis) Anticoagulation Episode Summary Current INR goal: 2.0-3.0 Assessment: INR result of 2.0 is therapeutic Plan: Current Warfarin Dosing As of 09/09/2023 Full warfarin instructions: 7.5 mg every Mon, Fri; 5 mg all other days Sent Aquaporin message Advised patient to continue current weekly dose as noted above Next home INR check scheduled on 09/23/2023 Bea Adan RPh Clinical Pharmacist, Pharmacy Anticoagulation Clinic Pharmacy Anticoagulation Clinic Pager: [phone]. 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 [facility] encounter[facility] History of Past illness Narrative* Problem Noted Date Diagnosed Date Resolved Date Hypertensive kidney disease with stage 3a chronic kidney disease 11/06/2021 10/31/2022 Change in bowel movement 01/21/201812/2020 Episodic lightheadedness 04/11/2015 Bilateral edema of lower extremity 04/11/2015 01/10/2016 Paroxysmal atrial fibrillation 03/19/2015 04/11/2015 Skin lesion 03/05/2010 12/20/2014 Hyperlipidemia LDL goal <100 08/26/2006 05/04/2023 documented as of this encounter (statuses as of 08/21/2023) [facility]02-[facility] History of Past illness Narrative* Problem Noted Date Diagnosed Date Resolved Date Hypertensive kidney disease with stage 3a chronic kidney disease 11/06/2021 10/31/2022 Change in bowel movement 01/21/201812/2020 Episodic lightheadedness 04/11/2015 Bilateral edema of lower extremity 04/11/2015 01/10/2016 Paroxysmal atrial fibrillation 03/19/2015 04/11/2015 Skin lesion 03/05/2010 12/20/2014 Hyperlipidemia LDL goal <100 08/26/2006 05/04/2023 documented as of this encounter (statuses as of 07/29/2023) [facility]02-19-2024 Miscellaneous Notes* Telephone Encounter - Hanna Freitas Ma - 07/27/2023 9:23 AM EST Pt wrote in, in another mychart message that he changed Pharmacy Providers and needs Rx's sent to [facility]. Patient has been identified by name [...] you. Hanna Freitas Ma. documented in this encounterOhio[facility] History of Past illness Narrative* Problem Noted Date Diagnosed Date Resolved Date Hypertensive kidney disease with stage 3a chronic kidney disease 11/06/2021 10/31/2022 Change in bowel movement 01/21/201812/2020 Episodic lightheadedness 04/11/2015 Bilateral edema of lower extremity 04/11/2015 01/10/2016 Paroxysmal atrial fibrillation 03/19/2015 04/11/2015 Skin lesion 03/05/2010 12/20/2014 Hyperlipidemia LDL goal <100 08/26/2006 05/04/2023 documented as of this encounter (statuses as of 07/27/2023) [facility]02-06-2024 Miscellaneous Notes* Telephone Encounter - Arabella Lopez RPh - 07/14/2023 9:13 AM EST [facility] Ambulatory Pharmacy Anticoagulation Clinic Anticoagulation Episode Summary Anticoagulation Care Providers Provider Role Specialty Phone number Tien Serrano MD Referring Family Medicine [phone] Wilmer Morley is a 82 year old [...] Fri; 5 mg all other days Sent Aquaporin message Advised patient to continue current weekly dose as noted above Next home INR check scheduled on 07/28/2023 Arabella Lopez RPh Clinical Pharmacist, Pharmacy Anticoagulation Clinic Pharmacy Anticoagulation Clinic Pager: [phone]. documented in this encounterOhio[facility] History of Past illness Narrative* Problem Noted Date Diagnosed Date Resolved Date Hypertensive kidney disease with stage 3a chronic kidney disease 11/06/2021 10/31/2022 Change in bowel movement 01/21/201812/2020 Episodic lightheadedness 04/11/2015 Bilateral edema of lower extremity 04/11/2015 01/10/2016 Paroxysmal atrial fibrillation 03/19/2015 04/11/2015 Skin lesion 03/05/2010 12/20/2014 Hyperlipidemia LDL goal <100 08/26/2006 05/04/2023 documented as of this encounter (statuses as of 07/14/2023) [facility]12-08-2023 History of Past illness Narrative* Problem Noted Date Diagnosed Date Resolved Date Hypertensive kidney disease with stage 3a chronic kidney disease 11/06/2021 10/31/2022 Change in bowel movement 01/21/201812/2020 Episodic lightheadedness 04/11/2015 Bilateral edema of lower extremity 04/11/2015 01/10/2016 Paroxysmal atrial fibrillation 03/19/2015 04/11/2015 Skin lesion 03/05/2010 12/20/2014 Hyperlipidemia LDL goal <100 08/26/2006 05/04/2023 documented as of this encounter (statuses as of 05/15/2023) [facility]11-09-2023 Miscellaneous Notes* Telephone Encounter - Jinny Shah, [facility] - 04/16/2023 1:24 PM EST [facility] Ambulatory Pharmacy Anticoagulation Clinic Anticoagulation Episode Summary Anticoagulation Care Providers Provider Role Specialty Phone number Tien Serrano MD Referring Family Medicine [phone] Wilmer Morley is a 82 year old [...] ALLERGIES No Known Allergies 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: longterm (current) use of anticoagulants History of dvt (deep vein thrombosis) Anticoagulation Episode Summary Current INR goal: 2.0-3.0 Assessment: INR result of 2.6 is therapeutic Plan: Current Warfarin Dosing As of 04/16/2023 Full warfarin instructions: 7.5 mg every Mon, Fri; 5 mg all other days Sent Aquaporin message Advised patient to continue current weekly dose as noted above Next home INR check scheduled on 05/07/2023 Jinny Shah RPh Clinical Pharmacist, Pharmacy Anticoagulation Clinic Pharmacy Anticoagulation Clinic Pager: [phone]. documented in this encounter[facility] History of Past illness Narrative* Problem Noted Date Diagnosed Date Resolved Date Hypertensive kidney disease with stage 3a chronic kidney disease 11/06/2021 10/31/2022 Change in bowel movement 01/21/201812/2020 Episodic lightheadedness 04/11/2015 Bilateral edema of lower extremity 04/11/2015 01/10/2016 Paroxysmal atrial fibrillation 03/19/2015 04/11/2015 Skin lesion 03/05/2010 12/20/2014 documented as of this encounter (statuses as of 04/17/2023) [facility]10-24[facility] Miscellaneous Notes* Telephone Encounter - Arabella Lopez RPh - 03/31/2023 1:41 PM EDT [facility] Ambulatory Pharmacy Anticoagulation Clinic Anticoagulation Episode Summary Anticoagulation Care Providers Provider Role Specialty Phone number Tien Serrano MD Referring Family Medicine [phone] Wilmer Morley is a 82 year old [...] Fri; 5 mg all other days Sent Aquaporin message Advised patient to continue current weekly dose as noted above Next home INR check scheduled on 04/14/2023 Arabella Lopez RPh Clinical Pharmacist, Pharmacy Anticoagulation Clinic Pharmacy Anticoagulation Clinic Pager: [phone]. documented in this encounterOhio[facility] History of Past illness Narrative* Problem Noted Date Diagnosed Date Resolved Date Hypertensive kidney disease with stage 3a chronic kidney disease 11/06/2021 10/31/2022 Change in bowel movement 01/21/201812/2020 Episodic lightheadedness 04/11/2015 Bilateral edema of lower extremity 04/11/2015 01/10/2016 Paroxysmal atrial fibrillation 03/19/2015 04/11/2015 Skin lesion 03/05/2010 12/20/2014 documented as of this encounter (statuses as of 03/31/2023) [facility] History of Present illness Narrative* Paulino Ruiz PA-C - 03/27/2023 8:40 AM EDT 82 year old male with c/o here to review sertraline Feels like sertraline didn't kick in well, was impatient. Going to [place] for winter. Notes medication is finally having [...] goal <100 Atrial fibrillation, unspecified type (hcc) longterm 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 Moderate mitral regurgitation Moderate tricuspid regurgitation Asymptomatic lv dysfunction Venous (peripheral) insufficiency History of dvt (deep vein thrombosis) longterm (current) use of anticoagulants [employer] [facility] in [place] Last visit 2022: mild stable BP elevation [...] Abs Lymph 1.00 - 4.00 k/uL 1.21 Screven% % 6.9 Abs Screven <0.87 k/uL 0.43 Eosin% % 0.8 Abs [...] Father CHF Heart Mother CHF Heart Brother PA - rheumatic fever Cancer Brother gastric Asthma [...] Benign Moderate Mitral Regurgitation Moderate Tricuspid Regurgitation Longterm (Current) Use of Anticoagulants Venous (Peripheral) Insufficiency History of Dvt (Deep Vein Thrombosis) Asymptomatic Lv Dysfunction Longterm Current Use of Antiarrhythmic Medical Therapy Stage [...] - ICD9: 427.31, ICD10: I48.91 stable 4. 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 Moderate mitral regurgitation Mitral valve disorders Moderate tricuspid regurgitation Diseases of tricuspid valve Asymptomatic LV dysfunction Heart disease, unspecified Venous (peripheral) insufficiency Unspecified venous (peripheral) insufficiency History of DVT (deep vein thrombosis) Personal history of venous thrombosis and embolism 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 Long-term (current) use of anticoagulants Generalized anxiety disorder Hyperglycemia Other abnormal glucose Encounter for immunization Need for other specified prophylactic vaccination against single bacterial disease documented in this encounter [facility] History of Past illness Narrative* Problem Noted Date Diagnosed Date Resolved Date Hypertensive kidney disease with stage 3a chronic kidney disease 11/06/2021 10/31/2022 Change in bowel movement 01/21/201812/2020 Episodic lightheadedness 04/11/2015 Bilateral edema of lower extremity 04/11/2015 01/10/2016 Paroxysmal atrial fibrillation 03/19/2015 04/11/2015 Skin lesion 03/05/2010 12/20/2014 documented as of this encounter (statuses as of 03/27/2023) [facility] History of Past illness Narrative* Problem Noted Date Diagnosed Date Resolved Date Hypertensive kidney disease with stage 3a chronic kidney disease 11/06/2021 10/31/2022 Change in bowel movement 01/21/201812/2020 Episodic lightheadedness 04/11/2015 Bilateral edema of lower extremity 04/11/2015 01/10/2016 Paroxysmal atrial fibrillation 03/19/2015 04/11/2015 Skin lesion 03/05/2010 12/20/2014 documented as of this encounter (statuses as of 03/14/2023) [facility]10-[facility] Miscellaneous Notes* Telephone Encounter - Jinny Shah, [facility] - 03/12/2023 3:25 PM EDT [facility] Ambulatory Pharmacy Anticoagulation Clinic Anticoagulation Episode Summary Anticoagulation Care Providers Provider Role Specialty Phone number Tien Serrano MD Referring Family Medicine [phone] Wilmer Morley is a 82 year old [...] ALLERGIES No Known Allergies 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 documented in this encounterOhio[facility] History of Past illness Narrative* Problem Noted Date Diagnosed Date Resolved Date Hypertensive kidney disease with stage 3a chronic kidney disease 11/06/2021 10/31/2022 Change in bowel movement 01/21/201812/2020 Episodic lightheadedness 04/11/2015 Bilateral edema of lower extremity 04/11/2015 01/10/2016 Paroxysmal atrial fibrillation 03/19/2015 04/11/2015 Skin lesion 03/05/2010 12/20/2014 documented as of this encounter (statuses as of 02/27/2023) [facility] Miscellaneous Notes* Telephone Encounter - Jinny Shah [facility] - 02/26/2023 2:58 PM EDT [facility] Ambulatory Pharmacy Anticoagulation Clinic Anticoagulation Episode Summary Anticoagulation Care Providers Provider Role Specialty Phone number Tien Serrano MD Referring Family Medicine [phone] Wilmer Morley is a 82 year old [...] ALLERGIES No Known Allergies 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 documented in this encounterOhiohealth Marion [facility] Hospital09-15-2023 Evaluation note* Diagnosis Essential hypertension, benign- Primary Stage 3a chronic kidney disease (HCC) Generalized anxiety disorder longterm 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 Atrial fibrillation, unspecified type (HCC) Dizziness Dizziness and giddiness Valvular heart disease Endocarditis, valve unspecified, unspecified cause documented in this encounter [facility]09-15-[facility]23 History of Past illness Narrative* Problem Noted Date Diagnosed Date Resolved Date Hypertensive kidney disease with stage 3a chronic kidney disease 11/06/2021 10/31/2022 Change in bowel movement 01/21/201812/2020 Episodic lightheadedness 04/11/2015 Bilateral edema of lower extremity 04/11/2015 01/10/2016 Paroxysmal atrial fibrillation 03/19/2015 04/11/2015 Skin lesion 03/05/2010 12/20/2014 documented as of this encounter (statuses as of 02/20/2023) [facility]09-14-2023 Miscellaneous Notes* Telephone Encounter - Blanca Gomez RN - 02/19/2023 4:08 PM EDT Patient had 1 year script for Lisinopril sent to pharmacy in [place] in December. Asking if the script can be sent to [facility] instead? Pended. Thank you. documented in this encounterOhiohealth Marion General Hospital09-14-2023 History of Present illness Narrative* Paulino Ruiz [...] drink. Has hx remote syncope x [address] 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 longterm 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 - ICD9: V58.69, ICD10: Z79.899 Dizziness may be effect from flecainanide 5. Atrial fibrillation, unspecified type (HCC) - ICD9: 427.31, ICD10: I48.91 Currently regular bradycardic rhythm Has occasional flutters but asymptomatic 6. 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 Valvular heart disease - ICD9: 424.90, ICD10: I38 As above F/u on medication through mychart over next 4 weeks on progress F/u here as needed and with upcoming appt Dr. Maggie Ruiz PA-C Some of this note may have been copied and pasted for the purpose of history context and comparison. documented in this encounterOhiohealth Marion General Hospital09-13-2023 Miscellaneous Notes* Telephone Encounter - Sylvie Gregory [...] notify patient. Sylvie Gregory documented in this encounterOhiohealth Marion General Hospital09-13-2023 History of Past illness Narrative* Problem Noted Date Diagnosed Date Resolved Date Hypertensive kidney disease with stage 3a chronic kidney disease 11/06/2021 10/31/2022 Change in bowel movement 01/21/201812/2020 Episodic lightheadedness 04/11/2015 Bilateral edema of lower extremity 04/11/2015 01/10/2016 Paroxysmal atrial fibrillation 03/19/2015 04/11/2015 Skin lesion 03/05/2010 12/20/2014 documented as of this encounter (statuses as of 02/18/2023) [facility] Miscellaneous Notes* Telephone Encounter - Arabella Lopez [facility] - 02/10/2023 2:33 PM EDT [facility] Ambulatory Pharmacy Anticoagulation Clinic Anticoagulation Episode Summary Anticoagulation Care Providers Provider Role Specialty Phone number Tien Serrano MD Referring Family Medicine [phone] Wilmer Morley is a 82 year old [...] Fri; 5 mg all other days Sent [employer] message Advised patient to continue current weekly dose as noted above Next home INR check scheduled on 02/24/2023 Arabella Lopez [facility] Clinical Pharmacist, Pharmacy Anticoagulation Clinic Pharmacy Anticoagulation Clinic Pager: [phone]. 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 documented in this encounterOhiohealth Marion [facility] Hospital08-18-2023 History of Past illness Narrative* Problem Noted Date Diagnosed Date Resolved Date Hypertensive kidney disease with stage 3a chronic kidney disease 11/06/2021 10/31/2022 Change in bowel movement 01/21/201812/2020 Episodic lightheadedness 04/11/2015 Bilateral edema of lower extremity 04/11/2015 01/10/2016 Paroxysmal atrial fibrillation 03/19/2015 04/11/2015 Skin lesion 03/05/2010 12/20/2014 documented as of this encounter (statuses as of 01/24/2023) [facility] Miscellaneous Notes* Telephone Encounter - Tra Foss [...] advise. Tra Foss LPN documented in this encounterOhiohealth Marion General Hospital08-02-2023 History of Past illness Narrative* Problem Noted Date Diagnosed Date Resolved Date Hypertensive kidney disease with stage 3a chronic kidney disease 11/06/2021 10/31/2022 Change in bowel movement 01/21/201812/2020 Episodic lightheadedness 04/11/2015 Bilateral edema of lower extremity 04/11/2015 01/10/2016 Paroxysmal atrial fibrillation 03/19/2015 04/11/2015 Skin lesion 03/05/2010 12/20/2014 documented as of this encounter (statuses as of 01/07/2023) [facility] Miscellaneous Notes* Telephone Encounter - Bea Adan RPh - 12/19/2022 2:32 PM EDT Patient due to test INR today. Will continue to monitor for results. Bea Adan RPh documented in this encounterOhiohealth Marion General Hospital07-14-2023 History of Past illness Narrative* Problem Noted Date Diagnosed Date Resolved Date Hypertensive kidney disease with stage 3a chronic kidney disease 11/06/2021 10/31/2022 Change in bowel movement 01/21/201812/2020 Episodic lightheadedness 04/11/2015 Bilateral edema of lower extremity 04/11/2015 01/10/2016 Paroxysmal atrial fibrillation 03/19/2015 04/11/2015 Skin lesion 03/05/2010 12/20/2014 documented as of this encounter (statuses as of 12/19/2022) [facility]-10[facility] Miscellaneous Notes* Telephone Encounter - Cortney Laughlin [...] are pended for you. documented in this encounterOhiohealth Marion General Hospital07-10-2023 History of Past illness Narrative* Problem Noted Date Diagnosed Date Resolved Date Hypertensive kidney disease with stage 3a chronic kidney disease 11/06/2021 10/31/2022 Change in bowel movement 01/21/201812/2020 Episodic lightheadedness 04/11/2015 Bilateral edema of lower extremity 04/11/2015 01/10/2016 Paroxysmal atrial fibrillation 03/19/2015 04/11/2015 Skin lesion 03/05/2010 12/20/2014 documented as of this encounter (statuses as of 12/15/2022) [facility]-30[facility] Miscellaneous Notes* Telephone Encounter - Lia Willard Ma - 12/05/2022 3:18 PM EDT Patient was notified Lia Willard Ma * Telephone Encounter - Katy Galdamez APRN.CNP - 12/05/2022 3:14 PM EDT Blood pressures look good. Please continue the same medication. Katy Galdamez APRN.CNP * Telephone Encounter - Blanca Gomez RN - 12/05/2022 11:45 AM EDT Patient calling with BP readings for Katy Galdamez CNP. Pt was instructed to let Katy know a week's worth of BP's: 11/27 112/63 P40 11/28 114/60 P58 11/29 127/64 P47 11/30 136/68 P50 12/01 122/57 P53 12/02 128/60 P51 Please call patient if provider has additional instructions. Blanca Gomez RN documented in this encounterOhiohealth Marion General Hospital06-30-2023 Miscellaneous Notes* Telephone Encounter - Ghazal Bailey RPh - 12/05/2022 12:07 PM EDT [employer] message sent for therapeutic INR. documented in this encounterOhiohealth Marion General Hospital06-30-2023 History of Past illness Narrative* Problem Noted Date Resolved Date Hypertensive kidney disease with stage 3a chronic kidney disease 11/06/2021 10/31/2022 Change in bowel movement 01/21/2018 021 Episodic lightheadedness 04/11/2015 018 Bilateral edema of lower extremity 04/11/2015 01/10/2016 Paroxysmal atrial fibrillation 03/19/2015 1 06/11/2014 Skin lesion 03/05/2010 12/20/2014 documented as of this encounter (statuses as of 12/05/2022) [facility] History of Past illness Narrative* Problem Noted Date Resolved Date Hypertensive kidney disease with stage 3a chronic kidney disease 11/06/2021 10/31/2022 Change in bowel movement 01/21/2018 021 Episodic lightheadedness 04/11/2015 018 Bilateral edema of lower extremity 04/11/2015 01/10/2016 Paroxysmal atrial fibrillation 03/19/2015 1 06/11/2014 Skin lesion 03/05/2010 12/20/2014 documented as of this encounter (statuses as of 12/05/2022) [facility] Miscellaneous Notes* Telephone Encounter - Tra Foss LPN - 11/25/2022 3:44 PM EDT Referral faxed. Tra Foss LPN * Telephone Encounter - Katy Galdamez APRN.SR. OPERATIONS MANAGER - 11/24/2022 8:11 PM EDT Can we please forward gen surg referral to Dr. Verónica Garcia. Katy Galdamez APRN.CNP documented in this encounterOhiohealth Marion [facility] Hospital06-19-2023 Instructions* Patient Instructions* Katy Galdamez APRN.CNP - 11/24/2022 9:47 AM EDT Continue the same medications. Send me the blood pressures in a week. documented in this encounterOhiohealth Marion General Hospital06-19-2023 History of Present illness Narrative* Katy Galdamez [...] Father CHF Heart Mother CHF Heart Brother PA - rheumatic fever Cancer Brother gastric Asthma [...] as needed for worsening/no improvement. Katy Galdamez APRN.SR. 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 documented in this encounterOhiohealth Marion [facility] Hospital05-31-2023 Miscellaneous Notes* Telephone Encounter - Ghazal Bailey RPh - 11/05/2022 3:39 PM EDT Mychart message sent for therapeutic INR. documented in this encounterOhiohealth Marion General Hospital05-16-2023 Miscellaneous Notes* Telephone Encounter - Love Awad RPh - 10/21/2022 11:18 AM EDT Patient was due to test INR today. Will continue to monitor for results. Love Felisha Delmi, PharmD documented in this encounterOhiohealth Marion [facility] Hospital03-28-2023 Miscellaneous Notes* Telephone Encounter - Arabella Lopez RPh - 09/02/2022 1:50 PM EDT Wilmer Morley was called and reminded to test INR today or as soon as possible. Left VM Arabella Lopez RPh * Telephone Encounter - Arabella Lopez RPh - 08/26/2022 3:07 PM EDT Patient due to test INR today. Will continue to monitor for results. Arabella Lopez RPh documented in this encounterOhiohealth Marion [facility] Hospital03-16-2023 Miscellaneous Notes* Telephone Encounter - Dariela Batista LPN - 08/21/2022 3:35 PM EDT Patient phones requesting refills as follows: Requested Prescriptions Pending Prescriptions Disp Refills warfarin (COUMADIN) 5 mg tablet 90 tablet 1 Si.5 mg every Mon, Fri; 5 mg all other days MARY-04/09/22 Labs-02/04/22 NOV-10/31/22 med filled 02/20/22 Please review and advise. Dariela Batista LPN documented in this encounterOhiohealth [facility] Hospital03-08-2023 Miscellaneous Notes* Telephone Encounter - Ghazal Bailey RPh - 08/13/2022 8:57 AM EST Mychart message sent for therapeutic INR. documented in this encounterOhiohealth Marion [facility] Hospital03-01-2023 Miscellaneous Notes* Telephone Encounter - Alejandrina Rebollar [...] you. 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 documented in this encounterOhiohealth Marion [facility] Hospital01-17-2023 Miscellaneous Notes* Telephone Encounter - Arabella Lopez RPh - 06/24/2022 3:42 PM EST [employer] message sent with INR result, dosing and information on when to test next. Arabella Lopez RPh, PharmD, CACP Clinical Pharmacist, Pharmacy Anticoagulation Clinic documented in this encounterOhiohealth Marion [facility] Hospital12-29-2022 Miscellaneous Notes* Telephone Encounter - Jinny Shah RPh - 06/05/2022 2:18 PM EST Patient due to test INR today. Will continue to monitor for results. 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 Jinny Shah [facility] Clinical Pharmacist, Pharmacy Anticoagulation Clinic Pharmacy Anticoagulation Clinic Pager: [phone]. documented in this encounterOhiohealth Marion [facility] Hospital11-30-2022 Miscellaneous Notes* Telephone Encounter - Ghazal Bailey [facility] - 05/07/2022 1:59 PM EST [employer] message sent for therapeutic INR. * Telephone Encounter - Arabella Lopez [facility] - 05/06/2022 4:18 PM EST Wilmer Morley was called and reminded to test INR today or as soon as possible. Arabella Lopez [facility] documented in this encounterOhiohealth Marion [facility] Hospital11-22-2022 History of Present illness Narrative* Stephania Marcus, [...] 29, 2022 3:43 PM documented in this encounterOhiohealth Marion General Hospital11-22-2022 History of Present illness Narrative* Tien Serrano [...] 10 years ESOPHAGOGASTRODUODENOSCOPY TRANSORAL DIAGNOSTIC N/A [facility]/16/[facility] OF 2010 basal cell to right above upper lip FAMILY HISTORY Problem Relation Age of Onset Heart Father CHF Heart Mother CHF Heart Brother PA - rheumatic fever Cancer Brother gastric Asthma [...] Abs Lymph 1.00 - 4.00 k/uL 1.21 Screven% % 6.9 Abs Screven <0.87 k/uL 0.43 Eosin% % 0.8 Abs [...] detail. Tien Serrano MD documented in this encounterOhiohealth Marion General Hospital10-31-2022 Miscellaneous Notes* Telephone Encounter - Namita Gee [facility] - 04/07/2022 3:32 PM EDT [facility] Ambulatory Pharmacy Anticoagulation Clinic Anticoagulation Episode Summary Anticoagulation Care Providers Provider Role Specialty Phone number Tien Serrano MD Referring Family Medicine [phone] Wilmer Morley is a 81 year old [...] Pharmacy Anticoagulation Clinic Pharmacy Anticoagulation Clinic Pager: [phone]. documented in this encounterOhiohealth Marion [facility] Hospital10-28-2022 Miscellaneous Notes* Telephone Encounter - Bea Adan RPh - 04/04/2022 5:25 PM EDT Patient due to test INR today. Will continue to monitor for results. 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 documented in this encounterOhiohealth [facility] Hospital10-12-2022 Miscellaneous Notes* Telephone Encounter - Rere Mejia RPh - 03/19/2022 2:01 PM EDT Patient due to test INR today. Will continue to monitor for results. Rere Mejia RPh documented in this encounterOhiohealth Marion [facility] Hospital09-15-2022 Miscellaneous Notes* Telephone Encounter - Arpita Hurt Ma - 02/20/2022 3:37 PM EDT Last office visit: 01/30/22 F/u scheduled: 04/29/22 Arpita Hurt Ma documented in this encounterOhiohealth Marion [facility] Hospital09-13-2022 Miscellaneous Notes* Telephone Encounter - Marcelina Flores RPh - 02/18/2022 4:20 PM EDT Patient due to test INR today. Will continue to monitor for results. Marcelina Flores RPh documented in this encounterOhiohealth Marion [facility] Hospital08-29-2022 Miscellaneous Notes* Telephone Encounter - Stephany Stein [...] cbc. Shivam Chávez PA-C documented in this encounterOhiohealth Marion General Hospital08-29-2022 Miscellaneous Notes* Telephone Encounter - Love Awad RPh - 02/03/2022 11:01 AM EDT Patient was due to test INR today. Will continue to monitor for results. Love Awad PharmD documented in this encounterOhiohealth Marion [facility] Hospital08-29-2022 Miscellaneous Notes* Telephone Encounter - Paulino Ruiz PA-C - 02/03/2022 6:41 AM EDT Urine showed small protein and casts which are abnormal. Recheck urine micro and albumin:creat. Please have him cone in for recheck in lab. Telephone on 02/03/22 URINALYSIS, WITH MICROSCOPIC ALBUMIN/CREAT RATIO RND UR ThanksShivam PA-C documented in this encounterOhiohealth Marion [facility] Hospital08-25-2022 History of Present illness Narrative* Paulino Ruiz [...] Father CHF Heart Mother CHF Heart Brother PA - rheumatic fever Cancer Brother gastric Asthma [...] Benign Moderate Mitral Regurgitation Moderate Tricuspid Regurgitation Longterm (Current) Use of Anticoagulants Venous (Peripheral) Insufficiency History of Dvt (Deep Vein Thrombosis) Asymptomatic Lv Dysfunction Longterm Current Use of Antiarrhythmic Medical Therapy Stage [...] go to ED Will mychart results. Paulino Riuz PA-C documented in this encounterOhiohealth Marion [facility] Hospital08-20-2022 Procedure note* Cortney Miranda MD - 01/25/2022 [...] well. Complications:none EBL: minimal documented in this encounterOhiohealth Marion General Hospital08-19-2022 Miscellaneous Notes* Telephone Encounter - Cortney Miranda MD - 01/24/2022 1:48 PM EDT Patient underwent skin biopsy of scalp posterior to left ear on 01/22/2022. Pathology: FINAL DIAGNOSIS A. Skin, excision, posterior scalp: - Seborrheic keratosis, irritated and inflamed. Patient states that area is doing fine. Patient acknowledges above. documented in this encounterOhiohealth Marion [facility] Hospital08-17-2022 History of Present illness Narrative* Cortney Miranda [...] labeled. Paulina Colbert RN documented in this encounterOhiohealth Marion General Hospital08-17-2022 Instructions* Patient Instructions* Paulina Colbert RN - 01/22/2022 1:44 PM EDT The following instructions are important for you related to your office visit today with the [facility] General Surgeons. Instructions After SKIN EXCISION-SUTURES [...] you should contact our office immediately @ [phone] and ask to be transferred to the General Surgery department. 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 PAST MEDICAL HISTORY Diagnosis Date Anxiety Atrial [...] FLX DX W/COLLJ SPEC WHEN [facility]FRMD [facility] ESOPHAGOGASTRODUODENOSCOPY TRANSORAL DIAGNOSTIC N/A 08/16[facility] H[facility] 2010 basal [...] Father CHF Heart Mother CHF Heart Brother PA - rheumatic fever Cancer Brother gastric Asthma Sister The review of systems data was entered by the nurse and reviewed by oh Nursing Notes: Ana Cabrera 01/15/2022 3:03 PM [...] Straightforward Cortney Miranda MD documented in this encounterOhio[facility]22 Nurse Note* Ana Cabrera - 01/15/2022 2:59 [...] Colonoscopy: 04/15/2018 Ana Cabrera documented in this encounterOhiohealth [facility]08-03-2022 Miscellaneous Notes* Telephone Encounter - Ghazal Bailey RP - 01/08/2022 10:24 AM EDT MyChart message sent for INR in therapeutic range. documented in this encounterOhio[facility] Hospital07-20-2022 Miscellaneous Notes* Telephone Encounter - Ghazal Bailey [facility] - 2021 12:57 PM EDT MyChart message sent for therapeutic INR. documented in this encounterOhiohealth [facility] Hospital07-20-2022 Miscellaneous Notes* Telephone Encounter - Tien Serrano [...] PCP. Keyla Rothman LPN documented in this encounterOhiohealth [facility] Hospital06-21-2022 Miscellaneous Notes* Telephone Encounter - Arabella Lopez [facility] - 11/26/2021 4:31 PM EDT [facility] Anticoagulation Episode Summary Anticoagulation Care Providers Provider Role Specialty Phone number Tien Serrano MD Referring [facility] [phone] Wilmer Morley is a 80 year old [...] Pharmacy Anticoagulation Clinic Pharmacy Anticoagulation Clinic Pager: [phone] . documented in this encounterOhiohealth [facility]06-03-2022 Nurse Note* Stephany Stein Ma - 11/08/2021 [...] that he increase his exercise. Going to [employer] about an hour a day 4 times a week. Was told that if that didn't seem to help him to contactcardio back and could order echo and stress test. documented in this encounterOhiohealth [facility] Hospital06-03-2022 History of Present illness Narrative* Tien Serrano [...] that he increase his exercise. Going to [employer] about an hour a day 4 times [...] Abs Lymph 1.00 - 4.00 k/uL 1.30 Screven% % 11.5 Abs Screven <0.87 k/uL 0.73 Eosin% % 0.6 Abs [...] 10 years ESOPHAGOGASTRODUODENOSCOPY TRANSORAL DIAGNOSTIC N/A 08/16/2020 [facility] Garcia PAST SURGICAL HISTORY OF 2010 basal cell to right above upper lip FAMILY HISTORY Problem Relation Age of Onset Heart Father CHF Heart Mother CHF Heart Brother PA - rheumatic fever Cancer Brother gastric Asthma [...] six months and prn. documented in this encounterOhiohealth [facility] Hospital06-03-2022 Evaluation note* Diagnosis Hypertensive kidney disease with stage 3a chronic kidney disease (HCC)- Primary Moderate tricuspid regurgitation Diseases of tricuspid valve Atrial fibrillation, unspecified type (HCC) Essential hypertension, benign Stage 3a chronic kidney disease (HCC) SOB (shortness of breath) Shortness of breath Generalized anxiety disorder Hx of skin cancer, basal cell Personal history of other malignant neoplasm of skin documented in this encounter [facility]06[facility] History of Past illness Narrative* Problem Noted Date Resolved Date Hypertensive kidney disease with stage 3a chronic kidney disease 11/06/2021 10/31/2022 Change in bowel movement 01/21/2018 021 Episodic lightheadedness 04/11/2015 018 Bilateral edema of lower extremity 04/11/2015 01/10/2016 Paroxysmal atrial fibrillation 03/19/201506/11/2014 Skin lesion 03/05/2010 12/20/2014 documented as of this encounter (statuses as of 11/06/2022) [facility] History of Past illness Narrative* Problem Noted Date Resolved Date Hypertensive kidney disease with stage 3a chronic kidney disease 11/06/2021 10/31/2022 Change in bowel movement 01/21/2018 021 Episodic lightheadedness 04/11/2015 018 Bilateral edema of lower extremity 04/11/2015 01/10/2016 Paroxysmal atrial fibrillation 03/19/201506/11/2014 Skin lesion 03/05/2010 12/20/2014 documented as of this encounter (statuses as of 11/21/2022) [facility] History of Past illness Narrative* Problem Noted Date Resolved Date Hypertensive kidney disease with stage 3a chronic kidney disease 11/06/2021 10/31/2022 Change in bowel movement 01/21/2018 021 Episodic lightheadedness 04/11/2015 018 Bilateral edema of lower extremity 04/11/2015 01/10/2016 Paroxysmal atrial fibrillation 03/19/2015 1 06/11/2014 Skin lesion 03/05/2010 12/20/2014 documented as of this encounter (statuses as of 11/25/2022) [facility] of Past illness Narrative* Problem Noted Date Resolved Date Hypertensive kidney disease with stage 3a chronic kidney disease 11/06/2021 10/31/2022 Change in bowel movement 01/21/2018 021 Episodic lightheadedness 04/11/2015 018 Bilateral edema of lower extremity 04/11/2015 01/10/2016 Paroxysmal atrial fibrillation 03/19/2015 1 06/11/2014 Skin lesion 03/05/2010 12/20/2014 documented as of this encounter (statuses as of 11/26/2022) [facility] of Past illness Narrative* Problem Noted Date Diagnosed Date Resolved Date Hypertensive kidney disease with stage 3a chronic kidney disease 11/06/2021 10/31/2022 Change in bowel movement 01/21/201812/2020 Episodic lightheadedness 04/11/2015 Bilateral edema of lower extremity 04/11/2015 01/10/2016 Paroxysmal atrial fibrillation 03/19/2015 04/11/2015 Skin lesion 03/05/2010 12/20/2014 documented as of this encounter (statuses as of 01/07/2023) [facility] of Past illness Narrative* Problem Noted Date Diagnosed Date Resolved Date Hypertensive kidney disease with stage 3a chronic kidney disease 11/06/2021 10/31/2022 Change in bowel movement 01/21/201812/2020 Episodic lightheadedness 04/11/2015 Bilateral edema of lower extremity 04/11/2015 01/10/2016 Paroxysmal atrial fibrillation 03/19/2015 04/11/2015 Skin lesion 03/05/2010 12/20/2014 documented as of this encounter (statuses as of 02/11/2023) [facility] of Past illness Narrative* Problem Noted Date Diagnosed Date Resolved Date Hypertensive kidney disease with stage 3a chronic kidney disease 11/06/2021 10/31/2022 Change in bowel movement 01/21/201812/2020 Episodic lightheadedness 04/11/2015 Bilateral edema of lower extremity 04/11/2015 01/10/2016 Paroxysmal atrial fibrillation 03/19/2015 04/11/2015 Skin lesion 03/05/2010 12/20/2014 documented as of this encounter (statuses as of 02/20/2023) [facility] of Past illness Narrative* Problem Noted Date Diagnosed Date Resolved Date Hypertensive kidney disease with stage 3a chronic kidney disease 11/06/2021 10/31/2022 Change in bowel movement 01/21/201812/2020 Episodic lightheadedness 04/11/2015 Bilateral edema of lower extremity 04/11/2015 01/10/2016 Paroxysmal atrial fibrillation 03/19/2015 04/11/2015 Skin lesion 03/05/2010 12/20/2014 Hyperlipidemia LDL goal <100 08/26/2006 05/04/2023 documented as of this encounter (statuses as of 09/10/2023) [facility] Miscellaneous Notes* Telephone Encounter - Love Awad RPh - 10/28/2021 12:48 PM EDT [employer] message sent with INR result, dosing and information on when to test next. Love Awad PharmD documented in this encounterOhiohealth [facility]05-06-2022 Miscellaneous Notes* Telephone Encounter - Steph Saravia LPN - 10/11/2021 8:57 AM EDT Phone call placed patient advised (see prior provider encounter) Patient verbalized understanding, agreed with plan of care currently scheduled with Dr. Head's office November 05 advised need to contact office sooner appointment. Patient denied changes in SOB, swelling, weight gain. Copy blood work faxed to Dr. Joshi's office [phone] along with updated provider instructions. Steph Saravia [...] Recheck bmp next week. documented in this encounterOhio[facility]04-25-2022 Miscellaneous Notes* Telephone Encounter - Love Awad RPh - 09/30/2021 3:08 PM EDT [employer] message sent with INR result, dosing and information on when to test next. Love Awad PharmD * Telephone Encounter - Arabella Lopez RPh - 09/30/2021 2:46 PM EDT Patient due to test INR today. Will continue to monitor for results. Arabella Lopez RPh documented in this encounterOhio[facility]04-11-2022 Miscellaneous Notes* Telephone Encounter - Jamie Motley RPh - 09/16/2021 1:39 PM EDT Images from the original note were not included. Jamie Motley RPh documented in this encounterOhio[facility]04-11-2022 Miscellaneous Notes* Telephone Encounter - Caryn Cornell [...] patient. Rosa Singh Pss documented in this encounterOhiohealth [facility] Hospital03-29-2022 Miscellaneous Notes* Telephone Encounter - Arabella Lopez RPh - 09/03/2021 3:27 PM EDT [facility] Anticoagulation Episode Summary Anticoagulation Care Providers Provider Role Specialty Phone number Tien Serrano MD Referring [facility] [phone] Wilmer Morley is a 80 year old [...] Pharmacy Anticoagulation Clinic Pharmacy Anticoagulation Clinic Pager: [phone] . documented in this encounterOhiohealth [facility]11-18-2021 Miscellaneous Notes* Telephone Encounter - Dariela Batista [...] PCP. Keyla Rothman LPN documented in this encounterOhiohealth [facility]08-16-2018 History of Past illness Narrative* Problem Noted Date Resolved Date Change in bowel movement 01/21/2018 021 Episodic lightheadedness 04/11/2015 018 Bilateral edema of lower extremity 04/11/2015 01/10/2016 Paroxysmal atrial fibrillation 03/19/2015 1 06/11/2014 Skin lesion 03/05/2010 12/20/2014 documented as of this encounter (statuses as of 09/03/2021) [facility] of [facility] illness Narrative* Problem Noted Date Resolved Date Change in bowel movement 01/21/2018 021 Episodic lightheadedness 04/11/2015 018 Bilateral edema of lower extremity 04/11/2015 01/10/2016 Paroxysmal atrial fibrillation 03/19/2015 1 06/11/2014 Skin lesion 03/05/2010 12/20/2014 documented as of this encounter (statuses as of 09/16/2021) [facility] of [facility] illness Narrative* Problem Noted Date Resolved Date Change in bowel movement 01/21/2018 021 Episodic lightheadedness 04/11/2015 018 Bilateral edema of lower extremity 04/11/2015 01/10/2016 Paroxysmal atrial fibrillation 03/19/2015 1 06/11/2014 Skin lesion 03/05/2010 12/20/2014 documented as of this encounter (statuses as of 09/16/2021) [address]16-2018 History of Past illness Narrative* Problem Noted Date Resolved Date Change in bowel movement 01/21/2018 021 Episodic lightheadedness 04/11/2015 018 Bilateral edema of lower extremity 04/11/2015 01/10/2016 Paroxysmal atrial fibrillation 03/19/2015 1 06/11/2014 Skin lesion 03/05/2010 12/20/2014 documented as of this encounter (statuses as of 09/30/2021) [address]16-2018 History of Past illness Narrative* Problem Noted Date Resolved Date Change in bowel movement 01/21/2018 021 Episodic lightheadedness 04/11/2015 018 Bilateral edema of lower extremity 04/11/2015 01/10/2016 Paroxysmal atrial fibrillation 03/19/2015 1 06/11/2014 Skin lesion 03/05/2010 12/20/2014 documented as of this encounter (statuses as of 10/11/2021) [address]16-2018 History of Past illness Narrative* Problem Noted Date Resolved Date Change in bowel movement 01/21/2018 021 Episodic lightheadedness 04/11/2015 018 Bilateral edema of lower extremity 04/11/2015 01/10/2016 Paroxysmal atrial fibrillation 03/19/2015 1 06/11/2014 Skin lesion 03/05/2010 12/20/2014 documented as of this encounter (statuses as of 10/14/2021) [address]16-2018 History of Past illness Narrative* Problem Noted Date Resolved Date Change in bowel movement 01/21/2018 021 Episodic lightheadedness 04/11/2015 018 Bilateral edema of lower extremity 04/11/2015 01/10/2016 Paroxysmal atrial fibrillation 03/19/2015 1 06/11/2014 Skin lesion 03/05/2010 12/20/2014 documented as of this encounter (statuses as of 10/28/2021) [address]16-2018 History of Past illness Narrative* Problem Noted Date Resolved Date Change in bowel movement 01/21/2018 021 Episodic lightheadedness 04/11/2015 018 Bilateral edema of lower extremity 04/11/2015 01/10/2016 Paroxysmal atrial fibrillation 03/19/2015 1 06/11/2014 Skin lesion 03/05/2010 12/20/2014 documented as of this encounter (statuses as of 11/08/2021) [address]16-2018 History of Past illness Narrative* Problem Noted Date Resolved Date Change in bowel movement 01/21/2018 021 Episodic lightheadedness 04/11/2015 018 Bilateral edema of lower extremity 04/11/2015 01/10/2016 Paroxysmal atrial fibrillation 03/19/2015 1 06/11/2014 Skin lesion 03/05/2010 12/20/2014 documented as of this encounter (statuses as of 11/26/2021) [address]16-2018 History of Past illness Narrative* Problem Noted Date Resolved Date Change in bowel movement 01/21/2018 021 Episodic lightheadedness 04/11/2015 018 Bilateral edema of lower extremity 04/11/2015 01/10/2016 Paroxysmal atrial fibrillation 03/19/2015 1 06/11/2014 Skin lesion 03/05/2010 12/20/2014 documented as of this encounter (statuses as of 12/12/2021) [address]16-2018 History of Past illness Narrative* Problem Noted Date Resolved Date Change in bowel movement 01/21/2018 021 Episodic lightheadedness 04/11/2015 018 Bilateral edema of lower extremity 04/11/2015 01/10/2016 Paroxysmal atrial fibrillation 03/19/2015 1 06/11/2014 Skin lesion 03/05/2010 12/20/2014 documented as of this encounter (statuses as of 2021) [address]16-2018 History of Past illness Narrative* Problem Noted Date Resolved Date Change in bowel movement 01/21/2018 021 Episodic lightheadedness 04/11/2015 018 Bilateral edema of lower extremity 04/11/2015 01/10/2016 Paroxysmal atrial fibrillation 03/19/2015 1 06/11/2014 Skin lesion 03/05/2010 12/20/2014 documented as of this encounter (statuses as of 01/08/2022) [address]16-2018 History of Past illness Narrative* Problem Noted Date Resolved Date Change in bowel movement 01/21/2018 021 Episodic lightheadedness 04/11/2015 018 Bilateral edema of lower extremity 04/11/2015 01/10/2016 Paroxysmal atrial fibrillation 03/19/2015 1 06/11/2014 Skin lesion 03/05/2010 12/20/2014 documented as of this encounter (statuses as of 01/18/2022) [facility] Narrative* Problem Noted Date Resolved Date Change in bowel movement 01/21/2018 021 Episodic lightheadedness 04/11/2015 018 Bilateral edema of lower extremity 04/11/2015 01/10/2016 Paroxysmal atrial fibrillation 03/19/2015 1 06/11/2014 Skin lesion 03/05/2010 12/20/2014 documented as of this encounter (statuses as of 01/24/2022) [facility] Narrative* Problem Noted Date Resolved Date Change in bowel movement 01/21/2018 021 Episodic lightheadedness 04/11/2015 018 Bilateral edema of lower extremity 04/11/2015 01/10/2016 Paroxysmal atrial fibrillation 03/19/2015 1 06/11/2014 Skin lesion 03/05/2010 12/20/2014 documented as of this encounter (statuses as of 01/25/2022) [facility] Narrative* Problem Noted Date Resolved Date Change in bowel movement 01/21/2018 021 Episodic lightheadedness 04/11/2015 018 Bilateral edema of lower extremity 04/11/2015 01/10/2016 Paroxysmal atrial fibrillation 03/19/2015 1 06/11/2014 Skin lesion 03/05/2010 12/20/2014 documented as of this encounter (statuses as of 01/30/2022) [address]16-2018 History of Past illness Narrative* Problem Noted Date Resolved Date Change in bowel movement 01/21/2018 021 Episodic lightheadedness 04/11/2015 018 Bilateral edema of lower extremity 04/11/2015 01/10/2016 Paroxysmal atrial fibrillation 03/19/2015 1 06/11/2014 Skin lesion 03/05/2010 12/20/2014 documented as of this encounter (statuses as of 02/03/2022) [address]16-2018 History of Past illness Narrative* Problem Noted Date Resolved Date Change in bowel movement 01/21/2018 021 Episodic lightheadedness 04/11/2015 018 Bilateral edema of lower extremity 04/11/2015 01/10/2016 Paroxysmal atrial fibrillation 03/19/2015 1 06/11/2014 Skin lesion 03/05/2010 12/20/2014 documented as of this encounter (statuses as of 02/03/2022) [address]16-2018 History of Past illness Narrative* Problem Noted Date Resolved Date Change in bowel movement 01/21/2018 021 Episodic lightheadedness 04/11/2015 018 Bilateral edema of lower extremity 04/11/2015 01/10/2016 Paroxysmal atrial fibrillation 03/19/2015 1 06/11/2014 Skin lesion 03/05/2010 12/20/2014 documented as of this encounter (statuses as of 02/18/2022) [address]16-2018 History of Past illness Narrative* Problem Noted Date Resolved Date Change in bowel movement 01/21/2018 021 Episodic lightheadedness 04/11/2015 018 Bilateral edema of lower extremity 04/11/2015 01/10/2016 Paroxysmal atrial fibrillation 03/19/2015 1 06/11/2014 Skin lesion 03/05/2010 12/20/2014 documented as of this encounter (statuses as of 02/20/2022) [address]16-2018 History of Past illness Narrative* Problem Noted Date Resolved Date Change in bowel movement 01/21/2018 021 Episodic lightheadedness 04/11/2015 018 Bilateral edema of lower extremity 04/11/2015 01/10/2016 Paroxysmal atrial fibrillation 03/19/2015 1 06/11/2014 Skin lesion 03/05/2010 12/20/2014 documented as of this encounter (statuses as of 03/19/2022) [address]16-2018 History of Past illness Narrative* Problem Noted Date Resolved Date Change in bowel movement 01/21/2018 021 Episodic lightheadedness 04/11/2015 018 Bilateral edema of lower extremity 04/11/2015 01/10/2016 Paroxysmal atrial fibrillation 03/19/2015 1 06/11/2014 Skin lesion 03/05/2010 12/20/2014 documented as of this encounter (statuses as of 03/21/2022) [facility]* Problem Noted Date Resolved Date Change in bowel movement 01/21/2018 021 Episodic lightheadedness 04/11/2015 018 Bilateral edema of lower extremity 04/11/2015 01/10/2016 Paroxysmal atrial fibrillation 03/19/2015 1 06/11/2014 Skin lesion 03/05/2010 12/20/2014 documented as of this encounter (statuses as of 04/04/2022) [facility] Narrative* Problem Noted Date Resolved Date Change in bowel movement 01/21/2018 021 Episodic lightheadedness 04/11/2015 018 Bilateral edema of lower extremity 04/11/2015 01/10/2016 Paroxysmal atrial fibrillation 03/19/2015 1 06/11/2014 Skin lesion 03/05/2010 12/20/2014 documented as of this encounter (statuses as of 04/07/2022) [facility] Narrative* Problem Noted Date Resolved Date Change in bowel movement 01/21/2018 021 Episodic lightheadedness 04/11/2015 018 Bilateral edema of lower extremity 04/11/2015 01/10/2016 Paroxysmal atrial fibrillation 03/19/2015 1 06/11/2014 Skin lesion 03/05/2010 12/20/2014 documented as of this encounter (statuses as of 04/22/2022) [address]16-2018 History of Past illness Narrative* Problem Noted Date Resolved Date Change in bowel movement 01/21/2018 021 Episodic lightheadedness 04/11/2015 018 Bilateral edema of lower extremity 04/11/2015 01/10/2016 Paroxysmal atrial fibrillation 03/19/2015 1 06/11/2014 Skin lesion 03/05/2010 12/20/2014 documented as of this encounter (statuses as of 04/29/2022) [facility] Narrative* Problem Noted Date Resolved Date Change in bowel movement 01/21/2018 021 Episodic lightheadedness 04/11/2015 018 Bilateral edema of lower extremity 04/11/2015 01/10/2016 Paroxysmal atrial fibrillation 03/19/2015 1 06/11/2014 Skin lesion 03/05/2010 12/20/2014 documented as of this encounter (statuses as of 05/07/2022) [facility] Narrative* Problem Noted Date Resolved Date Change in bowel movement 01/21/2018 021 Episodic lightheadedness 04/11/2015 018 Bilateral edema of lower extremity 04/11/2015 01/10/2016 Paroxysmal atrial fibrillation 03/19/2015 1 06/11/2014 Skin lesion 03/05/2010 12/20/2014 documented as of this encounter (statuses as of 05/08/2022) [place] [address]16-2018 History of Past illness Narrative* Problem Noted Date Resolved Date Change in bowel movement 01/21/2018 021 Episodic lightheadedness 04/11/2015 018 Bilateral edema of lower extremity 04/11/2015 01/10/2016 Paroxysmal atrial fibrillation 03/19/2015 1 06/11/2014 Skin lesion 03/05/2010 12/20/2014 documented as of this encounter (statuses as of 05/22/2022) [place] [address]16[address]2018 History of Past illness Narrative* Problem Noted Date Resolved Date Change in bowel movement 01/21/2018 021 Episodic lightheadedness 04/11/2015 018 Bilateral edema of lower extremity 04/11/2015 01/10/2016 Paroxysmal atrial fibrillation 03/19/2015 1 06/11/2014 Skin lesion 03/05/2010 12/20/2014 documented as of this encounter (statuses as of 06/12/2022) [address]16-2018 History of Past illness Narrative* Problem Noted Date Resolved Date Change in bowel movement 01/21/2018 021 Episodic lightheadedness 04/11/2015 018 Bilateral edema of lower extremity 04/11/2015 01/10/2016 Paroxysmal atrial fibrillation 03/19/2015 1 06/11/2014 Skin lesion 03/05/2010 12/20/2014 documented as of this encounter (statuses as of 06/19/2022) [address]16-2018 History of Past illness Narrative* Problem Noted Date Resolved Date Change in bowel movement 01/21/2018 021 Episodic lightheadedness 04/11/2015 018 Bilateral edema of lower extremity 04/11/2015 01/10/2016 Paroxysmal atrial fibrillation 03/19/2015 1 06/11/2014 Skin lesion 03/05/2010 12/20/2014 documented as of this encounter (statuses as of 06/24/2022) [address]16-2018 History of Past illness Narrative* Problem Noted Date Resolved Date Change in bowel movement 01/21/2018 021 Episodic lightheadedness 04/11/2015 018 Bilateral edema of lower extremity 04/11/2015 01/10/2016 Paroxysmal atrial fibrillation 03/19/2015 1 06/11/2014 Skin lesion 03/05/2010 12/20/2014 documented as of this encounter (statuses as of 07/11/2022) [address]16-2018 History of Past illness Narrative* Problem Noted Date Resolved Date Change in bowel movement 01/21/2018 021 Episodic lightheadedness 04/11/2015 018 Bilateral edema of lower extremity 04/11/2015 01/10/2016 Paroxysmal atrial fibrillation 03/19/2015 1 06/11/2014 Skin lesion 03/05/2010 12/20/2014 documented as of this encounter (statuses as of 07/24/2022) [address]16-2018 History of Past illness Narrative* Problem Noted Date Resolved Date Change in bowel movement 01/21/2018 021 Episodic lightheadedness 04/11/2015 018 Bilateral edema of lower extremity 04/11/2015 01/10/2016 Paroxysmal atrial fibrillation 03/19/2015 1 06/11/2014 Skin lesion 03/05/2010 12/20/2014 documented as of this encounter (statuses as of 08/06/2022) [address]16-2018 History of Past illness Narrative* Problem Noted Date Resolved Date Change in bowel movement 01/21/2018 021 Episodic lightheadedness 04/11/2015 018 Bilateral edema of lower extremity 04/11/2015 01/10/2016 Paroxysmal atrial fibrillation 03/19/2015 1 06/11/2014 Skin lesion 03/05/2010 12/20/2014 documented as of this encounter (statuses as of 08/13/2022) [facility] Past illness Narrative* Problem Noted Date Resolved Date Change in bowel movement 01/21/2018 021 Episodic lightheadedness 04/11/2015 018 Bilateral edema of lower extremity 04/11/2015 01/10/2016 Paroxysmal atrial fibrillation 03/19/2015 1 06/11/2014 Skin lesion 03/05/2010 12/20/2014 documented as of this encounter (statuses as of 08/21/2022) [facility] History of Past illness Narrative* Problem Noted Date Resolved Date Change in bowel movement 01/21/2018 021 Episodic lightheadedness 04/11/2015 018 Bilateral edema of lower extremity 04/11/2015 01/10/2016 Paroxysmal atrial fibrillation 03/19/2015 1 06/11/2014 Skin lesion 03/05/2010 12/20/2014 documented as of this encounter (statuses as of 09/08/2022) [facility]08-16-2018 History of Past illness Narrative* Problem Noted Date Resolved Date Change in bowel movement 01/21/2018 021 Episodic lightheadedness 04/11/2015 018 Bilateral edema of lower extremity 04/11/2015 01/10/2016 Paroxysmal atrial fibrillation 03/19/2015 1 06/11/2014 Skin lesion 03/05/2010 12/20/2014 documented as of this encounter (statuses as of 09/13/2022) [address]16-2018 History of Past illness Narrative* Problem Noted Date Resolved Date Change in bowel movement 01/21/2018 021 Episodic lightheadedness 04/11/2015 018 Bilateral edema of lower extremity 04/11/2015 01/10/2016 Paroxysmal atrial fibrillation 03/19/2015 1 06/11/2014 Skin lesion 03/05/2010 12/20/2014 documented as of this encounter (statuses as of 10/22/2022) [facility]-16-2018 History of Past illness Narrative* Problem Noted Date Resolved Date Change in bowel movement 01/21/2018 021 Episodic lightheadedness 04/11/2015 018 Bilateral edema of lower extremity 04/11/2015 01/10/2016 Paroxysmal atrial fibrillation 03/19/2015 1 06/11/2014 Skin lesion 03/05/2010 12/20/2014 documented as of this encounter (statuses as of 10/23/2022) [facility] note* Diagnosis longterm (current) use of anticoagulants- Primary Long-term (current) use of anticoagulants History of DVT (deep vein thrombosis) Personal history of venous thrombosis and embolism [facility] Diagnosis Congestive heart failure, unspecified HF chronicity, unspecified heart failure type (HCC)- Primary [facility] Diagnosis 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- Primary Long-term (current) use of anticoagulants History of DVT (deep vein thrombosis) Personal history of venous thrombosis and embolism Atrial fibrillation, unspecified type (HCC) [facility] Diagnosis longterm (current) use of anticoagulants- Primary Long-term (current) use of anticoagulants History of DVT (deep vein thrombosis) Personal history of venous thrombosis and embolism Atrial fibrillation, unspecified type (HCC) [facility] Diagnosis Skin lesion- Primary Unspecified disorder of skin and subcutaneous tissue [facility] Diagnosis Skin lesion- Primary Unspecified disorder of skin and subcutaneous tissue Dysesthesia Disturbance of skin sensation [facility] Diagnosis Abdominal pain, left lateral- Primary Abdominal pain, unspecified site [facility] Diagnosis Abnormal casts in urine- Primary Other cells and casts in urine Urine protein increased Proteinuria [facility] Diagnosis Hyperlipidemia LDL goal <100 Other and unspecified hyperlipidemia [facility] Diagnosis Essential hypertension, benign- Primary Hyperlipidemia [...] sounds [facility]* Diagnosis longterm (current) use of anticoagulants- Primary Long-term (current) use of anticoagulants History of DVT (deep vein thrombosis) Personal history of venous thrombosis and embolism Atrial fibrillation, unspecified type (HCC) [facility]* Diagnosis Hyperglycemia- Primary Other abnormal glucose [facility] Diagnosis 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- Primary Long-term (current) use of anticoagulants History of DVT (deep vein thrombosis) Personal history of venous thrombosis and embolism Atrial fibrillation, unspecified type (HCC) [facility]* Diagnosis Essential hypertension, benign- Primary Screening for colon cancer Special screening for malignant neoplasms, colon [facility] Diagnosis Hyperlipidemia LDL goal <100 Other and unspecified hyperlipidemia Essential hypertension, benign [facility]* Diagnosis longterm (current) use of anticoagulants- Primary Long-term (current) use of anticoagulants Atrial fibrillation, unspecified type (HCC) History of DVT (deep vein thrombosis) Personal history of venous thrombosis and embolism [facility]* Diagnosis Essential hypertension, benign [facility] Diagnosis longterm (current) use of anticoagulants- Primary Long-term (current) use of anticoagulants ATRIAL FIBRILLATION History of DVT (deep vein thrombosis) Personal history of venous thrombosis and embolism [facility]* Diagnosis longterm (current) use of anticoagulants- Primary Long-term (current) use of anticoagulants History of DVT (deep vein thrombosis) Personal history of venous thrombosis and embolism [facility]* Diagnosis 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- Primary Long-term (current) use of anticoagulants History of DVT (deep vein thrombosis) Personal history of venous thrombosis and embolism [facility]* Diagnosis Moderate mitral regurgitation Mitral valve disorders [facility] Diagnosis Hyperlipidemia LDL goal <100 Other and unspecified hyperlipidemia [facility]* Diagnosis Anxiety Anxiety state, unspecified Generalized anxiety disorder Hyperlipidemia LDL goal <100 Other and unspecified hyperlipidemia Essential hypertension, benign [facility] Diagnosis 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- Primary Long-term (current) use of anticoagulants ATRIAL FIBRILLATION History of DVT (deep vein thrombosis) Personal history of venous thrombosis and embolism [facility] Diagnosis Anxiety Anxiety state, unspecified [facility] Diagnosis 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- Primary Long-term (current) use of anticoagulants ATRIAL FIBRILLATION History of DVT (deep vein thrombosis) Personal history of venous thrombosis and embolism [facility]* Diagnosis Atrial fibrillation, unspecified type (HCC)- Primary Essential hypertension, benign Moderate mitral regurgitation Mitral valve disorders Stage 3a chronic kidney disease (HCC) Hyperglycemia Other abnormal glucose Hx of skin cancer, basal cell Personal history of other malignant neoplasm of skin Generalized anxiety disorder longterm (current) use of anticoagulants Long-term (current) use of anticoagulants terminal make up operator 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 Balance problem Other symptoms involving nervous and musculoskeletal systems Impacted cerumen of left ear Impacted cerumen [facility]* Diagnosis Renal insufficiency- Primary Unspecified disorder of kidney and ureter [facility]* Diagnosis 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- Primary Long-term (current) use of anticoagulants History of DVT (deep vein thrombosis) Personal history of venous thrombosis and embolism [facility]* Diagnosis Lightheaded- Primary Dizziness and [...] Shortness of breath [facility]* Diagnosis Essential hypertension, benign Hyperlipidemia LDL goal <100 Other and unspecified hyperlipidemia [facility]* Diagnosis 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- Primary Long-term (current) use of anticoagulants History of DVT (deep vein thrombosis) Personal history of venous thrombosis and embolism [facility]* Diagnosis Lightheaded- Primary Dizziness and giddiness Benign paroxysmal positional vertigo of right ear documented in this encounter [facility] note* Diagnosis longterm (current) use of anticoagulants- Primary Long-term (current) use of anticoagulants ATRIAL FIBRILLATION History of DVT (deep vein thrombosis) Personal history of venous thrombosis and embolism documented in this encounter [facility] note* Diagnosis SOB (shortness of breath)- Primary Shortness of breath Lightheadedness Dizziness and giddiness Lightheaded Dizziness and giddiness Lightheadedness Dizziness and giddiness documented in this encounter [facility] note* Diagnosis SOB (shortness of breath) Shortness of breath Lightheadedness Dizziness and giddiness documented in this encounter [facility] note* Diagnosis SOB (shortness of breath) Shortness of breath Lightheadedness Dizziness and giddiness documented in this encounter [facility] note* Diagnosis SOB (shortness of breath) Shortness of breath Lightheadedness Dizziness and giddiness documented in this encounter [facility] note* Diagnosis Chronic obstructive pulmonary disease, unspecified COPD type (HCC)- Primary documented in this encounter [facility] note* Diagnosis Lightheadedness Dizziness and giddiness documented in this encounter [facility] note* Diagnosis Lightheaded- Primary Dizziness and giddiness Benign paroxysmal positional vertigo of right ear documented in this encounter [facility] note* Diagnosis 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- Primary Long-term (current) use of anticoagulants History of DVT (deep vein thrombosis) Personal history of venous thrombosis and embolism documented in this encounter [facility] note* Diagnosis Lightheaded- Primary Dizziness and giddiness Benign paroxysmal positional vertigo of right ear documented in this encounter [facility] note* Diagnosis Abnormal breath sounds Abnormal chest sounds documented in this encounter [facility] note* Diagnosis longterm (current) use of anticoagulants- Primary Long-term (current) use of anticoagulants History of DVT (deep vein thrombosis) Personal history of venous thrombosis and embolism documented in this encounter [facility] note* Diagnosis SOB (shortness of breath) Shortness of breath documented in this encounter [facility] note* Diagnosis 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- Primary Long-term (current) use of anticoagulants ATRIAL FIBRILLATION History of DVT (deep vein thrombosis) Personal history of venous thrombosis and embolism documented in this encounter [facility] note* Diagnosis Chronic obstructive pulmonary disease, unspecified COPD type (HCC)- Primary Irritable bowel syndrome with diarrhea Irritable bowel syndrome documented in this encounter [facility] note* Diagnosis Lightheaded- Primary Dizziness and giddiness Benign paroxysmal positional vertigo of right ear documented in this encounter [facility] note* Diagnosis 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- Primary Long-term (current) use of anticoagulants ATRIAL FIBRILLATION History of DVT (deep vein thrombosis) Personal history of venous thrombosis and embolism documented in this encounter [facility] note* Diagnosis Chronic obstructive pulmonary disease, unspecified COPD type (HCC)- Primary Atrial fibrillation, unspecified type (HCC) Essential hypertension, benign Stage 3a chronic kidney disease (HCC) Generalized anxiety disorder Anxiety Anxiety state, unspecified Encounter for immunization Need for other specified prophylactic vaccination against single bacterial disease Hyperglycemia Other abnormal glucose [facility]* Diagnosis Anxiety Anxiety state, unspecified documented in this encounter [facility] note* Diagnosis longterm (current) use of anticoagulants- Primary Long-term (current) use of anticoagulants ATRIAL FIBRILLATION History of DVT (deep vein thrombosis) Personal history of venous thrombosis and embolism documented in this encounter [facility] note* Diagnosis longterm (current) use of anticoagulants- Primary Long-term (current) use of anticoagulants ATRIAL FIBRILLATION History of DVT (deep vein thrombosis) Personal history of venous thrombosis and embolism documented in this encounter [facility] note* Diagnosis Hyperlipidemia LDL goal <100 Other and unspecified hyperlipidemia documented in this encounter [facility] note* Diagnosis longterm (current) use of anticoagulants- Primary Long-term (current) use of anticoagulants History of DVT (deep vein thrombosis) Personal history of venous thrombosis and embolism documented in this encounter [facility] note* Diagnosis COPD with exacerbation (HCC)- Primary Obstructive chronic bronchitis with exacerbation Atrial fibrillation, unspecified type (HCC) Essential hypertension, benign Moderate mitral regurgitation Mitral valve disorders Moderate tricuspid regurgitation Diseases of tricuspid valve Chronic obstructive pulmonary disease, unspecified COPD type (HCC) Stage 3a chronic kidney disease (HCC) Hyperglycemia Other abnormal glucose longterm (current) use of anticoagulants Long-term (current) use of anticoagulants History of DVT (deep vein thrombosis) Personal history of venous thrombosis and embolism terminal 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 up 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 SOB (shortness of breath) Shortness of breath documented in this encounter [facility] note* Diagnosis SOB (shortness of breath) Shortness of breath COPD with exacerbation (HCC) Obstructive chronic bronchitis with exacerbation documented in this encounter [facility] note* Diagnosis Essential hypertension, benign- Primary Screening for depression Congestive heart failure, unspecified HF chronicity, unspecified heart failure type (HCC) Atrial fibrillation, unspecified type (HCC) Stage 3a chronic kidney disease (HCC) Chronic obstructive pulmonary disease, unspecified COPD type (HCC) SOB (shortness of breath) Shortness of breath documented in this encounter [facility] note* Diagnosis Essential hypertension, benign- Primary documented in this encounter [facility] note* Diagnosis COPD, moderate (HCC)- Primary Chronic airway obstruction, not elsewhere classified Former cigarette smoker Personal history of tobacco use, presenting hazards to health Moderate pulmonary hypertension (HCC) documented in this encounter [facility] note* Diagnosis Anxiety Anxiety state, unspecified documented in this encounter [facility] note* Diagnosis Vertigo- Primary Dizziness and giddiness Atrial fibrillation, unspecified type (HCC) Essential hypertension, benign Chronic obstructive pulmonary disease, unspecified COPD type (HCC) Stage 3a chronic kidney disease (HCC) Hyperglycemia Other abnormal glucose longterm (current) use of anticoagulants Long-term (current) use of anticoagulants History of DVT (deep vein thrombosis) Personal history of venous thrombosis and embolism Pulmonary HTN (HCC) Other chronic pulmonary heart diseases Congestive heart failure, unspecified HF chronicity, unspecified heart failure type (HCC) MARY BETH (obstructive sleep apnea) Obstructive sleep apnea (adult) (pediatric) documented in this encounter [facility] note* Diagnosis longterm (current) use of anticoagulants- Primary Long-term (current) use of anticoagulants ATRIAL FIBRILLATION History of DVT (deep vein thrombosis) Personal history of venous thrombosis and embolism documented in this encounter [facility] note* Diagnosis longterm (current) use of anticoagulants- Primary Long-term (current) use of anticoagulants History of DVT (deep vein thrombosis) Personal history of venous thrombosis and embolism documented in this encounter [facility] note* Diagnosis Essential hypertension, benign documented in this encounter [facility] noteNo assessment information availableSan Leandro [facility] Work Phone: Evaluation note* Diagnosis Visit for suture removal- Primary Encounter for removal of sutures documented in this encounter [facility] note* Diagnosis Vertigo- Primary Dizziness and giddiness documented in this encounter [facility] note* Diagnosis MARY BETH (obstructive sleep apnea)- Primary Obstructive sleep apnea (adult) (pediatric) documented in this encounter [facility] note* Diagnosis Renal insufficiency- Primary Unspecified disorder of kidney and ureter documented in this encounter [facility] note* Diagnosis Stage 3b chronic kidney disease (HCC)- Primary documented in this encounter [facility] note* Diagnosis Hyperlipidemia LDL goal <100 Other and unspecified hyperlipidemia documented in this encounter [facility] for referral (narrative)* Outpatient Procedure (Routine) - Authorized Specialty Diagnoses / Procedures Referred By Contac t Referred To Contact [facility] Diagnoses SOB (shortness of breath) Lightheadedness Procedures SIX MINUTE WALK CARDIOPULMONARY EXERCISE STRESS Tien Serrano MD [address] [place] [address] [facility] [place] [id number] Referral ID Status Reason Start Date Expiration Date Visits Requested Visits Authorized [id number] Authorized Auto-Generat ed Referral 02/10/2024 03/11/2025 1 1 * Outpatient Procedure (Routine) - Authorized Specialty Diagnoses / Procedures Referred By Contac t Referred To Contact [facility] Diagnoses SOB (shortness of breath) Lightheadedness Procedures LUNG VOLUMES Tien Serrano MD [address] [place] [address] [facility] [place] [id number] Referral ID Status Reason Start Date Expiration Date Visits Requested Visits Authorized [id number] Authorized Auto-Generat ed Referral 02/10/2024 03/11/2025 1 1 * Outpatient Procedure (Routine) - Authorized Specialty Diagnoses / Procedures Referred By Contac t Referred To Contact [facility] Diagnoses SOB (shortness of breath) Lightheadedness Procedures SPIROMETRY WITH DILATOR IF OBSTRUCTED BRNCDILAT RSPSE SPMTRY PRE&POST-BRNCDILAT ADMN Tien Serrano MD [address] [place] [address] [facility] [place] [address] [place] [address] Referral ID Status Reason Start Date Expiration Date Visits Requested Visits Authorized [id number] Authorized Auto-Generat ed Referral 02/10/2024 03/11/2025 1 1 [facility])No reason for referral information availableSt. [facility] Work Phone: Reason for visit Narrative* Radiology (Routine) - Closed Specialty Diagnoses / Procedures Referred By Contac t Referred To Contact Diagnoses Atrial fibrillation, unspecified type Dyspnea on exertion Procedures ECHOCARDIOGRAM DE ECHO TTHRC R-T 2D W/WOM-MODE COMPL SPEC&COLR D Tien Head DO [address] [place] [address] Phone: tel: fax: Referral ID Status Reason Start Date Expiration Date Visits Re quested Visits Authorized [id number] Closed 11/09/2024 12/04/2025 1 1 [facility] Reason for Referral Status Reason Specialty Diagnoses / Procedures Referred By Contact Referred To Contact Closed Cardiovascular Medicine Diagnoses Moderate mitral regurgitation Procedures ECHOCARDIOGRAM Tien Head DO [address] [place] [address] [facility] Echocardiograph y [address] [place] [address] Status Reason Specialty Diagnoses / Procedures Re ferred By Contact Referred To Contact New Request Diagnoses Moderate mitral regurgitation Procedures ECHOCARDIOGRAM Tien Head DO [address] [place] [address] Specialty Diagnoses / Procedures Referred By Contac t Referred To Contact Cardiology Diagnoses Congestive heart failure, unspecified HF chronicity, unspecified heart failure type (HCC) Procedures CONSULT TO CARDIOLOGY Tien Serrano MD [address] [place] [address] Referral ID Status Reason Start Date Expiration Date Visits Requested Visits Authorized [id number] Ref Not Required PCP Requested Referral 10/11/2021 10/11/2022 1 1 Specialty Diagnoses / Procedures Referred By Contac t Referred To Contact General Surgery Diagnoses Screening for colon cancer Procedures CONSULT TO GENERAL SURGERY OFFICE/OUTPATIENT [facility] MDM 60-74 MINUTES Katy Galdamez APRN.CNP [address] [place] [address] Referral ID Status Reason Start Date Expiration Date Visits Requested Visits Authorized [id number] Pending Review PCP Requested Referral 11/24/2022 11/24/2023 1 1 Specialty Diagnoses / Procedures Referred By Contac t Referred To Contact Diagnoses Generalized anxiety disorder Paulino Ruiz PA-C [address] [place] [address] Referral ID Status Reason Start Date Expiration Date V isits Requested Visits Authorized [id number] Authorized 01/20/2023 02/19/2024 1 1 Specialty Diagnoses / Procedures Referred By Contac t Referred To Contact Diagnoses Moderate mitral regurgitation Procedures ECHOCARDIOGRAM DE ECHO HEART XTHORACIC,COMPLETE W DOPPLER Tien Head DO [address] [place] [id number] Referral ID Status Reason Start Date Expiration Date Visits Re quested Visits Authorized [id number] Closed 10/15/2022 11/09/2023 1 1 Specialty Diagnoses / Procedures Referred By Contac t Referred To Contact Ent - Otolaryngology Diagnoses Balance problem Impacted cerumen of left ear Procedures CONSULT TO ENT OFFICE/OUTPATIENT [facility] MDM 60 MINUTES Tien Serrano MD [address] [place] [address] Referral ID Status Reason Start Date Expiration Date Visits Requested Visits Authorized [id number] Authorized PCP Requested Referral 11/11/2023 11/10/2024 1 1 Specialty Diagnoses / Procedures Referred By Contac t Referred To Contact [facility] Diagnoses Lightheaded Benign paroxysmal positional vertigo of right ear Procedures CONSULT TO PHYSICAL THERAPY PHYSICAL THERAPY EVALUATION HIGH COMPLEX 45 MINS Tien Serrano MD [address] [place] [address] [facility] [place] [address] Referral ID Status Reason Start Date Expiration Date Visits Requested Visits Authorized [id number] Authorized Auto-Generat ed Referral 06/08/2023 06/07/2024 99 [...] (peripheral) insufficiency Chronic anticoagulation 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 Lipids performed in [place] under good control. Tien Head DO 11/11/2018 [...] RE, EA 15 MIN. Tien Serrano MD [address] [place] [address] Phone: tel: fax: [facility] [address] [place] [address] Referral ID Status Reason Start Date Expiration Date Visits Requested Visits Authorized [id number] Authorized Auto-Generat ed Referral 06/08/2024 06/07/2025 99 99 Reason Comments PT Progress Note Specialty Diagnoses / Procedures Referred By Maria Isabel zhao Referred To Contact [facility] Diagnoses Lightheaded Benign paroxysmal positional vertigo of right ear Procedures CONSULT TO PHYSICAL THERAPY PHYSICAL THERAPY EVALUATION HIGH COMPLEX 45 MINS Tien Serrano MD [address] [place] [address] [facility] [address] [place] [address] Referral ID Status Reason Start Date Expiration Date Visits Requested Visits Authorized [id number] Authorized Auto-Generat ed Referral 06/08/2023 06/07/2024 99 99 Reason Comments Physical Therapy Status Reason Specialty Diagnoses / Procedures Referred By Contact Referred To Contact Closed Cardiovascular Medicine Diagnoses Moderate mitral regurgitation Procedures ECHOCARDIOGRAM Tien Head, DO [address] [place] [address] [facility]ip [facility] Echocardiograph y [address] [place] [address] Reason Comments Follow-up One year follow up. [...] Contact Diagnoses Moderate mitral regurgitation Procedures ECHOCARDIOGRAM DE ECHO HEART XTHORACIC,COMPLETE W DOPPLER Tien Head, DO [address] [place] [id number] Referral ID Status Reason Start Date Expiration Date Visits Re quested Visits Authorized [id number] Closed 10/15/2022 11/09/2023 1 1 Reason Onset [...] on exertion Procedures ECHOCARDIOGRAM TREADMILL STRESS TEST DE ECHO TTHRC R-T 2D W/WO M-MODE REST&STRS CONT ECG DE DOP ECHOCARD PULSE WAVE W/SPECTRAL F-UP/LMTD STD DE DOP ECHOCARD COLOR FLOW VELOCITY MAPPING DE ECHO TTHRC R-T 2D W/WO M-MODE COMPLETE REST&ST Tien Head, DO [address] [place] [address] [facility] [address] [place] [address] Referral ID Status Reason Start Date Expiration Date Visits Re quested Visits Authorized [id number] Closed 11/09/2023 12/03/2024 1 1 Reason Onset [...] RSPSE SPMTRY PRE&POST-BRNCDILAT ADMN Tien Serrano MD [address] [place] [address] [address] [address] Referral ID Status Reason Start Date Expiration Date V isits Requested Visits Authorized [id number] Closed Auto-Generate d Referral 02/10/2024 03/11/2025 1 1 Specialty Diagnoses / Procedures Referred By Contac t Referred To Contact [facility] Diagnoses SOB (shortness of breath) Lightheadedness Procedures SIX MINUTE WALK CARDIOPULMONARY EXERCISE STRESS Tien Serrano MD [address] [place] [address] [address] Referral ID Status Reason Start Date Expiration Date V isits Requested Visits Authorized [id number] Closed Auto-Generate d Referral 02/10/2024 03/11/2025 1 1 Specialty Diagnoses / Procedures Referred By Contac t Referred To Contact [facility] Diagnoses SOB (shortness of breath) Lightheadedness Procedures LUNG VOLUMES Tien Serrano MD [facility] [place] [address] [address] Referral ID Status Reason Start Date Expiration Date V isits Requested Visits Authorized [id number] Closed Auto-Generate d Referral 02/10/2024 03/11/2025 1 [...] HIGH COMPLEX 45 MINS Tien Serrano MD [address] [place] [address] Pt [facility] [address] [place] [address] Reason Onset Date Comments Anticoagulation Telephone Fu [...] Removal Suture removal left forearm placed in [place] Reason Onset Date Comments Anticoagulation Telephone Fu [...] or prosecute any alcohol or drug abuse patient.[facility] HospitalIn the event this information is protected by the Federal Confidentiality of Alcohol and Drug Abuse Patient Records regulations: The Federal rules restrict any use of the information to criminally investigate or prosecute any alcohol or drug abuse patient.[facility] HospitalIn the event this information is protected by the Federal Confidentiality of Alcohol and Drug Abuse Patient Records regulations: The Federal rules restrict any use of the information to criminally investigate or prosecute any alcohol or drug abuse patient.[facility] HospitalIn the event this information is protected by the Federal Confidentiality of Alcohol and Drug Abuse Patient Records regulations: The Federal rules restrict any use of the information to criminally investigate or prosecute any alcohol or drug abuse patient.[facility] HospitalIn the event this information is protected by the Federal Confidentiality of Alcohol and Drug Abuse Patient Records regulations: The Federal rules restrict any use of the information to criminally investigate or prosecute any alcohol or drug abuse patient.[facility] HospitalIn the event this information is protected by the Federal Confidentiality of Alcohol and Drug Abuse Patient Records regulations: The Federal rules restrict any use of the information to criminally investigate or prosecute any alcohol or drug abuse patient.[facility] HospitalIn the event this information is protected by the Federal Confidentiality of Alcohol and Drug Abuse Patient Records regulations: The Federal rules restrict any use of the information to criminally investigate or prosecute any alcohol or drug abuse patient.[facility] HospitalIn the event this information is protected by the Federal Confidentiality of Alcohol and Drug Abuse Patient Records regulations: The Federal rules restrict any use of the information to criminally investigate or prosecute any alcohol or drug abuse patient.[facility] HospitalIn the event this information is protected by the Federal Confidentiality of Alcohol and Drug Abuse Patient Records regulations: The Federal rules restrict any use of the information to criminally investigate or prosecute any alcohol or drug abuse patient.[facility] HospitalIn the event this information is protected by the Federal Confidentiality of Alcohol and Drug Abuse Patient Records regulations: The Federal rules restrict any use of the information to criminally investigate or prosecute any alcohol or drug abuse patient.[facility] HospitalIn the event this information is protected by the Federal Confidentiality of Alcohol and Drug Abuse Patient Records regulations: The Federal rules restrict any use of the information to criminally investigate or prosecute any alcohol or drug abuse patient.[facility] HospitalIn the event this information is protected by the Federal Confidentiality of Alcohol and Drug Abuse Patient Records regulations: The Federal rules restrict any use of the information to criminally investigate or prosecute any alcohol or drug abuse patient.[facility] HospitalIn the event this information is protected by the Federal Confidentiality of Alcohol and Drug Abuse Patient Records regulations: The Federal rules restrict any use of the information to criminally investigate or prosecute any alcohol or drug abuse patient.[facility] HospitalIn the event this information is protected by the Federal Confidentiality of Alcohol and Drug Abuse Patient Records regulations: The Federal rules restrict any use of the information to criminally investigate or prosecute any alcohol or drug abuse patient.[facility] HospitalIn the event this information is protected by the Federal Confidentiality of Alcohol and Drug Abuse Patient Records regulations: The Federal rules restrict any use of the information to criminally investigate or prosecute any alcohol or drug abuse patient.[facility] HospitalIn the event this information is protected by the Federal Confidentiality of Alcohol and Drug Abuse Patient Records regulations: The Federal rules restrict any use of the information to criminally investigate or prosecute any alcohol or drug abuse patient.[facility] HospitalIn the event this information is protected by the Federal Confidentiality of Alcohol and Drug Abuse Patient Records regulations: The Federal rules restrict any use of the information to criminally investigate or prosecute any alcohol or drug abuse patient.[facility] HospitalIn the event this information is protected by the Federal Confidentiality of Alcohol and Drug Abuse Patient Records regulations: The Federal rules restrict any use of the information to criminally investigate or prosecute any alcohol or drug abuse patient.[facility] HospitalIn the event this information is protected by the Federal Confidentiality of Alcohol and Drug Abuse Patient Records regulations: The Federal rules restrict any use of the information to criminally investigate or prosecute any alcohol or drug abuse patient.[facility] HospitalIn the event this information is protected by the Federal Confidentiality of Alcohol and Drug Abuse Patient Records regulations: The Federal rules restrict any use of the information to criminally investigate or prosecute any alcohol or drug abuse patient.[facility] HospitalIn the event this information is protected by the Federal Confidentiality of Alcohol and Drug Abuse Patient Records regulations: The Federal rules restrict any use of the information to criminally investigate or prosecute any alcohol or drug abuse patient.[facility] HospitalIn the event this information is protected by the Federal Confidentiality of Alcohol and Drug Abuse Patient Records regulations: The Federal rules restrict any use of the information to criminally investigate or prosecute any alcohol or drug abuse patient.[facility] HospitalIn the event this information is protected by the Federal Confidentiality of Alcohol and Drug Abuse Patient Records regulations: The Federal rules restrict any use of the information to criminally investigate or prosecute any alcohol or drug abuse patient.[facility] HospitalIn the event this information is protected by the Federal Confidentiality of Alcohol and Drug Abuse Patient Records regulations: The Federal rules restrict any use of the information to criminally investigate or prosecute any alcohol or drug abuse patient.[facility] HospitalIn the event this information is protected by the Federal Confidentiality of Alcohol and Drug Abuse Patient Records regulations: The Federal rules restrict any use of the information to criminally investigate or prosecute any alcohol or drug abuse patient.[facility] HospitalIn the event this information is protected by the Federal Confidentiality of Alcohol and Drug Abuse Patient Records regulations: The Federal rules restrict any use of the information to criminally investigate or prosecute any alcohol or drug abuse patient.[facility] HospitalIn the event this information is protected by the Federal Confidentiality of Alcohol and Drug Abuse Patient Records regulations: The Federal rules restrict any use of the information to criminally investigate or prosecute any alcohol or drug abuse patient.[facility] HospitalIn the event this information is protected by the Federal Confidentiality of Alcohol and Drug Abuse Patient Records regulations: The Federal rules restrict any use of the information to criminally investigate or prosecute any alcohol or drug abuse patient.[facility] HospitalIn the event this information is protected by the Federal Confidentiality of Alcohol and Drug Abuse Patient Records regulations: The Federal rules restrict any use of the information to criminally investigate or prosecute any alcohol or drug abuse patient.[facility] HospitalIn the event this information is protected by the Federal Confidentiality of Alcohol and Drug Abuse Patient Records regulations: The Federal rules restrict any use of the information to criminally investigate or prosecute any alcohol or drug abuse patient.[facility] HospitalIn the event this information is protected by the Federal Confidentiality of Alcohol and Drug Abuse Patient Records regulations: The Federal rules restrict any use of the information to criminally investigate or prosecute any alcohol or drug abuse patient.[facility] HospitalIn the event this information is protected by the Federal Confidentiality of Alcohol and Drug Abuse Patient Records regulations: The Federal rules restrict any use of the information to criminally investigate or prosecute any alcohol or drug abuse patient.[facility] HospitalIn the event this information is protected by the Federal Confidentiality of Alcohol and Drug Abuse Patient Records regulations: The Federal rules restrict any use of the information to criminally investigate or prosecute any alcohol or drug abuse patient.[facility] HospitalIn the event this information is protected by the Federal Confidentiality of Alcohol and Drug Abuse Patient Records regulations: The Federal rules restrict any use of the information to criminally investigate or prosecute any alcohol or drug abuse patient.[facility] HospitalIn the event this information is protected by the Federal Confidentiality of Alcohol and Drug Abuse Patient Records regulations: The Federal rules restrict any use of the information to criminally investigate or prosecute any alcohol or drug abuse patient.[facility] HospitalIn the event this information is protected by the Federal Confidentiality of Alcohol and Drug Abuse Patient Records regulations: The Federal rules restrict any use of the information to criminally investigate or prosecute any alcohol or drug abuse patient.[facility] HospitalIn the event this information is protected by the Federal Confidentiality of Alcohol and Drug Abuse Patient Records regulations: The Federal rules restrict any use of the information to criminally investigate or prosecute any alcohol or drug abuse patient.[facility] HospitalIn the event this information is protected by the Federal Confidentiality of Alcohol and Drug Abuse Patient Records regulations: The Federal rules restrict any use of the information to criminally investigate or prosecute any alcohol or drug abuse patient.[facility] HospitalIn the event this information is protected by the Federal Confidentiality of Alcohol and Drug Abuse Patient Records regulations: The Federal rules restrict any use of the information to criminally investigate or prosecute any alcohol or drug abuse patient.[facility] HospitalIn the event this information is protected by the Federal Confidentiality of Alcohol and Drug Abuse Patient Records regulations: The Federal rules restrict any use of the information to criminally investigate or prosecute any alcohol or drug abuse patient.[facility] HospitalIn the event this information is protected by the Federal Confidentiality of Alcohol and Drug Abuse Patient Records regulations: The Federal rules restrict any use of the information to criminally investigate or prosecute any alcohol or drug abuse patient.[facility] HospitalIn the event this information is protected by the Federal Confidentiality of Alcohol and Drug Abuse Patient Records regulations: The Federal rules restrict any use of the information to criminally investigate or prosecute any alcohol or drug abuse patient.[facility] HospitalIn the event this information is protected by the Federal Confidentiality of Alcohol and Drug Abuse Patient Records regulations: The Federal rules restrict any use of the information to criminally investigate or prosecute any alcohol or drug abuse patient.[facility] HospitalIn the event this information is protected by the Federal Confidentiality of Alcohol and Drug Abuse Patient Records regulations: The Federal rules restrict any use of the information to criminally investigate or prosecute any alcohol or drug abuse patient.[facility] HospitalIn the event this information is protected by the Federal Confidentiality of Alcohol and Drug Abuse Patient Records regulations: The Federal rules restrict any use of the information to criminally investigate or prosecute any alcohol or drug abuse patient.[facility] HospitalIn the event this information is protected by the Federal Confidentiality of Alcohol and Drug Abuse Patient Records regulations: The Federal rules restrict any use of the information to criminally investigate or prosecute any alcohol or drug abuse patient.[facility] HospitalIn the event this information is protected by the Federal Confidentiality of Alcohol and Drug Abuse Patient Records regulations: The Federal rules restrict any use of the information to criminally investigate or prosecute any alcohol or drug abuse patient.[facility] HospitalIn the event this information is protected by the Federal Confidentiality of Alcohol and Drug Abuse Patient Records regulations: The Federal rules restrict any use of the information to criminally investigate or prosecute any alcohol or drug abuse patient.[facility] HospitalIn the event this information is protected by the Federal Confidentiality of Alcohol and Drug Abuse Patient Records regulations: The Federal rules restrict any use of the information to criminally investigate or prosecute any alcohol or drug abuse patient.[facility] HospitalIn the event this information is protected by the Federal Confidentiality of Alcohol and Drug Abuse Patient Records regulations: The Federal rules restrict any use of the information to criminally investigate or prosecute any alcohol or drug abuse patient.[facility] HospitalIn the event this information is protected by the Federal Confidentiality of Alcohol and Drug Abuse Patient Records regulations: The Federal rules restrict any use of the information to criminally investigate or prosecute any alcohol or drug abuse patient.[facility] HospitalIn the event this information is protected by the Federal Confidentiality of Alcohol and Drug Abuse Patient Records regulations: The Federal rules restrict any use of the information to criminally investigate or prosecute any alcohol or drug abuse patient.[facility] HospitalIn the event this information is protected by the Federal Confidentiality of Alcohol and Drug Abuse Patient Records regulations: The Federal rules restrict any use of the information to criminally investigate or prosecute any alcohol or drug abuse patient.[facility] HospitalIn the event this information is protected by the Federal Confidentiality of Alcohol and Drug Abuse Patient Records regulations: The Federal rules restrict any use of the information to criminally investigate or prosecute any alcohol or drug abuse patient.[facility] HospitalIn the event this information is protected by the Federal Confidentiality of Alcohol and Drug Abuse Patient Records regulations: The Federal rules restrict any use of the information to criminally investigate or prosecute any alcohol or drug abuse patient.[facility] HospitalIn the event this information is protected by the Federal Confidentiality of Alcohol and Drug Abuse Patient Records regulations: The Federal rules restrict any use of the information to criminally investigate or prosecute any alcohol or drug abuse patient.[facility] HospitalIn the event this information is protected by the Federal Confidentiality of Alcohol and Drug Abuse Patient Records regulations: The Federal rules restrict any use of the information to criminally investigate or prosecute any alcohol or drug abuse patient.[facility] HospitalIn the event this information is protected by the Federal Confidentiality of Alcohol and Drug Abuse Patient Records regulations: The Federal rules restrict any use of the information to criminally investigate or prosecute any alcohol or drug abuse patient.[facility] HospitalIn the event this information is protected by the Federal Confidentiality of Alcohol and Drug Abuse Patient Records regulations: The Federal rules restrict any use of the information to criminally investigate or prosecute any alcohol or drug abuse patient.[facility] HospitalIn the event this information is protected by the Federal Confidentiality of Alcohol and Drug Abuse Patient Records regulations: The Federal rules restrict any use of the information to criminally investigate or prosecute any alcohol or drug abuse patient.[facility] HospitalIn the event this information is protected by the Federal Confidentiality of Alcohol and Drug Abuse Patient Records regulations: The Federal rules restrict any use of the information to criminally investigate or prosecute any alcohol or drug abuse patient.[facility] HospitalIn the event this information is protected by the Federal Confidentiality of Alcohol and Drug Abuse Patient Records regulations: The Federal rules restrict any use of the information to criminally investigate or prosecute any alcohol or drug abuse patient.[facility] HospitalIn the event this information is protected by the Federal Confidentiality of Alcohol and Drug Abuse Patient Records regulations: The Federal rules restrict any use of the information to criminally investigate or prosecute any alcohol or drug abuse patient.[facility] HospitalIn the event this information is protected by the Federal Confidentiality of Alcohol and Drug Abuse Patient Records regulations: The Federal rules restrict any use of the information to criminally investigate or prosecute any alcohol or drug abuse patient.[facility] HospitalIn the event this information is protected by the Federal Confidentiality of Alcohol and Drug Abuse Patient Records regulations: The Federal rules restrict any use of the information to criminally investigate or prosecute any alcohol or drug abuse patient.[facility] HospitalIn the event this information is protected by the Federal Confidentiality of Alcohol and Drug Abuse Patient Records regulations: The Federal rules restrict any use of the information to criminally investigate or prosecute any alcohol or drug abuse patient.[facility] HospitalIn the event this information is protected by the Federal Confidentiality of Alcohol and Drug Abuse Patient Records regulations: The Federal rules restrict any use of the information to criminally investigate or prosecute any alcohol or drug abuse patient.[facility] HospitalIn the event this information is protected by the Federal Confidentiality of Alcohol and Drug Abuse Patient Records regulations: The Federal rules restrict any use of the information to criminally investigate or prosecute any alcohol or drug abuse patient.[facility] HospitalIn the event this information is protected by the Federal Confidentiality of Alcohol and Drug Abuse Patient Records regulations: The Federal rules restrict any use of the information to criminally investigate or prosecute any alcohol or drug abuse patient.[facility] HospitalIn the event this information is protected by the Federal Confidentiality of Alcohol and Drug Abuse Patient Records regulations: The Federal rules restrict any use of the information to criminally investigate or prosecute any alcohol or drug abuse patient.[facility] HospitalIn the event this information is protected by the Federal Confidentiality of Alcohol and Drug Abuse Patient Records regulations: The Federal rules restrict any use of the information to criminally investigate or prosecute any alcohol or drug abuse patient.[facility] HospitalIn the event this information is protected by the Federal Confidentiality of Alcohol and Drug Abuse Patient Records regulations: The Federal rules restrict any use of the information to criminally investigate or prosecute any alcohol or drug abuse patient.[facility] HospitalIn the event this information is protected by the Federal Confidentiality of Alcohol and Drug Abuse Patient Records regulations: The Federal rules restrict any use of the information to criminally investigate or prosecute any alcohol or drug abuse patient.[facility] HospitalIn the event this information is protected by the Federal Confidentiality of Alcohol and Drug Abuse Patient Records regulations: The Federal rules restrict any use of the information to criminally investigate or prosecute any alcohol or drug abuse patient.[facility] HospitalIn the event this information is protected by the Federal Confidentiality of Alcohol and Drug Abuse Patient Records regulations: The Federal rules restrict any use of the information to criminally investigate or prosecute any alcohol or drug abuse patient.[facility] HospitalIn the event this information is protected by the Federal Confidentiality of Alcohol and Drug Abuse Patient Records regulations: The Federal rules restrict any use of the information to criminally investigate or prosecute any alcohol or drug abuse patient.[facility] HospitalIn the event this information is protected by the Federal Confidentiality of Alcohol and Drug Abuse Patient Records regulations: The Federal rules restrict any use of the information to criminally investigate or prosecute any alcohol or drug abuse patient.[facility] HospitalIn the event this information is protected by the Federal Confidentiality of Alcohol and Drug Abuse Patient Records regulations: The Federal rules restrict any use of the information to criminally investigate or prosecute any alcohol or drug abuse patient.[facility] HospitalIn the event this information is protected by the Federal Confidentiality of Alcohol and Drug Abuse Patient Records regulations: The Federal rules restrict any use of the information to criminally investigate or prosecute any alcohol or drug abuse patient.[facility] HospitalIn the event this information is protected by the Federal Confidentiality of Alcohol and Drug Abuse Patient Records regulations: The Federal rules restrict any use of the information to criminally investigate or prosecute any alcohol or drug abuse patient.[facility] HospitalIn the event this information is protected by the Federal Confidentiality of Alcohol and Drug Abuse Patient Records regulations: The Federal rules restrict any use of the information to criminally investigate or prosecute any alcohol or drug abuse patient.[facility] HospitalIn the event this information is protected by the Federal Confidentiality of Alcohol and Drug Abuse Patient Records regulations: The Federal rules restrict any use of the information to criminally investigate or prosecute any alcohol or drug abuse patient.[facility] HospitalIn the event this information is protected by the Federal Confidentiality of Alcohol and Drug Abuse Patient Records regulations: The Federal rules restrict any use of the information to criminally investigate or prosecute any alcohol or drug abuse patient.[facility] HospitalIn the event this information is protected by the Federal Confidentiality of Alcohol and Drug Abuse Patient Records regulations: The Federal rules restrict any use of the information to criminally investigate or prosecute any alcohol or drug abuse patient.[facility] HospitalIn the event this information is protected by the Federal Confidentiality of Alcohol and Drug Abuse Patient Records regulations: The Federal rules restrict any use of the information to criminally investigate or prosecute any alcohol or drug abuse patient.[facility] HospitalIn the event this information is protected by the Federal Confidentiality of Alcohol and Drug Abuse Patient Records regulations: The Federal rules restrict any use of the information to criminally investigate or prosecute any alcohol or drug abuse patient.[facility] HospitalIn the event this information is protected by the Federal Confidentiality of Alcohol and Drug Abuse Patient Records regulations: The Federal rules restrict any use of the information to criminally investigate or prosecute any alcohol or drug abuse patient.[facility] HospitalIn the event this information is protected by the Federal Confidentiality of Alcohol and Drug Abuse Patient Records regulations: The Federal rules restrict any use of the information to criminally investigate or prosecute any alcohol or drug abuse patient.[facility] HospitalIn the event this information is protected by the Federal Confidentiality of Alcohol and Drug Abuse Patient Records regulations: The Federal rules restrict any use of the information to criminally investigate or prosecute any alcohol or drug abuse patient.[facility] HospitalIn the event this information is protected by the Federal Confidentiality of Alcohol and Drug Abuse Patient Records regulations: The Federal rules restrict any use of the information to criminally investigate or prosecute any alcohol or drug abuse patient.[facility] HospitalIn the event this information is protected by the Federal Confidentiality of Alcohol and Drug Abuse Patient Records regulations: The Federal rules restrict any use of the information to criminally investigate or prosecute any alcohol or drug abuse patient.[facility] HospitalIn the event this information is protected by the Federal Confidentiality of Alcohol and Drug Abuse Patient Records regulations: The Federal rules restrict any use of the information to criminally investigate or prosecute any alcohol or drug abuse patient.[facility] HospitalIn the event this information is protected by the Federal Confidentiality of Alcohol and Drug Abuse Patient Records regulations: The Federal rules restrict any use of the information to criminally investigate or prosecute any alcohol or drug abuse patient.[facility] HospitalIn the event this information is protected by the Federal Confidentiality of Alcohol and Drug Abuse Patient Records regulations: The Federal rules restrict any use of the information to criminally investigate or prosecute any alcohol or drug abuse patient.[facility] HospitalIn the event this information is protected by the Federal Confidentiality of Alcohol and Drug Abuse Patient Records regulations: The Federal rules restrict any use of the information to criminally investigate or prosecute any alcohol or drug abuse patient.[facility] HospitalIn the event this information is protected by the Federal Confidentiality of Alcohol and Drug Abuse Patient Records regulations: The Federal rules restrict any use of the information to criminally investigate or prosecute any alcohol or drug abuse patient.[facility] HospitalIn the event this information is protected by the Federal Confidentiality of Alcohol and Drug Abuse Patient Records regulations: The Federal rules restrict any use of the information to criminally investigate or prosecute any alcohol or drug abuse patient.[facility] HospitalIn the event this information is protected by the Federal Confidentiality of Alcohol and Drug Abuse Patient Records regulations: The Federal rules restrict any use of the information to criminally investigate or prosecute any alcohol or drug abuse patient.[facility] HospitalIn the event this information is protected by the Federal Confidentiality of Alcohol and Drug Abuse Patient Records regulations: The Federal rules restrict any use of the information to criminally investigate or prosecute any alcohol or drug abuse patient.[facility] HospitalIn the event this information is protected by the Federal Confidentiality of Alcohol and Drug Abuse Patient Records regulations: The Federal rules restrict any use of the information to criminally investigate or prosecute any alcohol or drug abuse patient.[facility] HospitalIn the event this information is protected by the Federal Confidentiality of Alcohol and Drug Abuse Patient Records regulations: The Federal rules restrict any use of the information to criminally investigate or prosecute any alcohol or drug abuse patient.[facility] HospitalIn the event this information is protected by the Federal Confidentiality of Alcohol and Drug Abuse Patient Records regulations: The Federal rules restrict any use of the information to criminally investigate or prosecute any alcohol or drug abuse patient.[facility] HospitalIn the event this information is protected by the Federal Confidentiality of Alcohol and Drug Abuse Patient Records regulations: The Federal rules restrict any use of the information to criminally investigate or prosecute any alcohol or drug abuse patient.[facility] HospitalIn the event this information is protected by the Federal Confidentiality of Alcohol and Drug Abuse Patient Records regulations: The Federal rules restrict any use of the information to criminally investigate or prosecute any alcohol or drug abuse patient.[facility] HospitalIn the event this information is protected by the Federal Confidentiality of Alcohol and Drug Abuse Patient Records regulations: The Federal rules restrict any use of the information to criminally investigate or prosecute any alcohol or drug abuse patient.[facility] HospitalIn the event this information is protected by the Federal Confidentiality of Alcohol and Drug Abuse Patient Records regulations: The Federal rules restrict any use of the information to criminally investigate or prosecute any alcohol or drug abuse patient.[facility] HospitalIn the event this information is protected by the Federal Confidentiality of Alcohol and Drug Abuse Patient Records regulations: The Federal rules restrict any use of the information to criminally investigate or prosecute any alcohol or drug abuse patient.[facility] HospitalIn the event this information is protected by the Federal Confidentiality of Alcohol and Drug Abuse Patient Records regulations: The Federal rules restrict any use of the information to criminally investigate or prosecute any alcohol or drug abuse patient.[facility] HospitalIn the event this information is protected by the Federal Confidentiality of Alcohol and Drug Abuse Patient Records regulations: The Federal rules restrict any use of the information to criminally investigate or prosecute any alcohol or drug abuse patient.[facility] HospitalIn the event this information is protected by the Federal Confidentiality of Alcohol and Drug Abuse Patient Records regulations: The Federal rules restrict any use of the information to criminally investigate or prosecute any alcohol or drug abuse patient.[facility] HospitalIn the event this information is protected by the Federal Confidentiality of Alcohol and Drug Abuse Patient Records regulations: The Federal rules restrict any use of the information to criminally investigate or prosecute any alcohol or drug abuse patient.[facility] HospitalIn the event this information is protected by the Federal Confidentiality of Alcohol and Drug Abuse Patient Records regulations: The Federal rules restrict any use of the information to criminally investigate or prosecute any alcohol or drug abuse patient.[facility] HospitalIn the event this information is protected by the Federal Confidentiality of Alcohol and Drug Abuse Patient Records regulations: The Federal rules restrict any use of the information to criminally investigate or prosecute any alcohol or drug abuse patient.[facility] HospitalIn the event this information is protected by the Federal Confidentiality of Alcohol and Drug Abuse Patient Records regulations: The Federal rules restrict any use of the information to criminally investigate or prosecute any alcohol or drug abuse patient.[facility] HospitalIn the event this information is protected by the Federal Confidentiality of Alcohol and Drug Abuse Patient Records regulations: The Federal rules restrict any use of the information to criminally investigate or prosecute any alcohol or drug abuse patient.[facility] HospitalIn the event this information is protected by the Federal Confidentiality of Alcohol and Drug Abuse Patient Records regulations: The Federal rules restrict any use of the information to criminally investigate or prosecute any alcohol or drug abuse patient.[facility] HospitalIn the event this information is protected by the Federal Confidentiality of Alcohol and Drug Abuse Patient Records regulations: The Federal rules restrict any use of the information to criminally investigate or prosecute any alcohol or drug abuse patient.[facility] HospitalIn the event this information is protected by the Federal Confidentiality of Alcohol and Drug Abuse Patient Records regulations: The Federal rules restrict any use of the information to criminally investigate or prosecute any alcohol or drug abuse patient.[facility] HospitalIn the event this information is protected by the Federal Confidentiality of Alcohol and Drug Abuse Patient Records regulations: The Federal rules restrict any use of the information to criminally investigate or prosecute any alcohol or drug abuse patient.[facility] HospitalIn the event this information is protected by the Federal Confidentiality of Alcohol and Drug Abuse Patient Records regulations: The Federal rules restrict any use of the information to criminally investigate or prosecute any alcohol or drug abuse patient.[facility] HospitalIn the event this information is protected by the Federal Confidentiality of Alcohol and Drug Abuse Patient Records regulations: The Federal rules restrict any use of the information to criminally investigate or prosecute any alcohol or drug abuse patient.[facility] HospitalIn the event this information is protected by the Federal Confidentiality of Alcohol and Drug Abuse Patient Records regulations: The Federal rules restrict any use of the information to criminally investigate or prosecute any alcohol or drug abuse patient.[facility] HospitalIn the event this information is protected by the Federal Confidentiality of Alcohol and Drug Abuse Patient Records regulations: The Federal rules restrict any use of the information to criminally investigate or prosecute any alcohol or drug abuse patient.[facility] HospitalIn the event this information is protected by the Federal Confidentiality of Alcohol and Drug Abuse Patient Records regulations: The Federal rules restrict any use of the information to criminally investigate or prosecute any alcohol or drug abuse patient.[facility] HospitalIn the event this information is protected by the Federal Confidentiality of Alcohol and Drug Abuse Patient Records regulations: The Federal rules restrict any use of the information to criminally investigate or prosecute any alcohol or drug abuse patient.[facility] HospitalIn the event this information is protected by the Federal Confidentiality of Alcohol and Drug Abuse Patient Records regulations: The Federal rules restrict any use of the information to criminally investigate or prosecute any alcohol or drug abuse patient.[facility] HospitalIn the event this information is protected by the Federal Confidentiality of Alcohol and Drug Abuse Patient Records regulations: The Federal rules restrict any use of the information to criminally investigate or prosecute any alcohol or drug abuse patient.[facility] HospitalIn the event this information is protected by the Federal Confidentiality of Alcohol and Drug Abuse Patient Records regulations: The Federal rules restrict any use of the information to criminally investigate or prosecute any alcohol or drug abuse patient.[facility] HospitalIn the event this information is protected by the Federal Confidentiality of Alcohol and Drug Abuse Patient Records regulations: The Federal rules restrict any use of the information to criminally investigate or prosecute any alcohol or drug abuse patient.[facility] HospitalIn the event this information is protected by the Federal Confidentiality of Alcohol and Drug Abuse Patient Records regulations: The Federal rules restrict any use of the information to criminally investigate or prosecute any alcohol or drug abuse patient.[facility] HospitalIn the event this information is protected by the Federal Confidentiality of Alcohol and Drug Abuse Patient Records regulations: The Federal rules restrict any use of the information to criminally investigate or prosecute any alcohol or drug abuse patient.[facility] HospitalIn the event this information is protected by the Federal Confidentiality of Alcohol and Drug Abuse Patient Records regulations: The Federal rules restrict any use of the information to criminally investigate or prosecute any alcohol or drug abuse patient.[facility] HospitalIn the event this information is protected by the Federal Confidentiality of Alcohol and Drug Abuse Patient Records regulations: The Federal rules restrict any use of the information to criminally investigate or prosecute any alcohol or drug abuse patient.[facility] HospitalIn the event this information is protected by the Federal Confidentiality of Alcohol and Drug Abuse Patient Records regulations: The Federal rules restrict any use of the information to criminally investigate or prosecute any alcohol or drug abuse patient.[facility] HospitalIn the event this information is protected by the Federal Confidentiality of Alcohol and Drug Abuse Patient Records regulations: The Federal rules restrict any use of the information to criminally investigate or prosecute any alcohol or drug abuse patient.[facility] HospitalIn the event this information is protected by the Federal Confidentiality of Alcohol and Drug Abuse Patient Records regulations: The Federal rules restrict any use of the information to criminally investigate or prosecute any alcohol or drug abuse patient.[facility] HospitalIn the event this information is protected by the Federal Confidentiality of Alcohol and Drug Abuse Patient Records regulations: The Federal rules restrict any use of the information to criminally investigate or prosecute any alcohol or drug abuse patient.[facility] HospitalIn the event this information is protected by the Federal Confidentiality of Alcohol and Drug Abuse Patient Records regulations: The Federal rules restrict any use of the information to criminally investigate or prosecute any alcohol or drug abuse patient.[facility] HospitalIn the event this information is protected by the Federal Confidentiality of Alcohol and Drug Abuse Patient Records regulations: The Federal rules restrict any use of the information to criminally investigate or prosecute any alcohol or drug abuse patient.[facility] HospitalIn the event this information is protected by the Federal Confidentiality of Alcohol and Drug Abuse Patient Records regulations: The Federal rules restrict any use of the information to criminally investigate or prosecute any alcohol or drug abuse patient.[facility] HospitalIn the event this information is protected by the Federal Confidentiality of Alcohol and Drug Abuse Patient Records regulations: The Federal rules restrict any use of the information to criminally investigate or prosecute any alcohol or drug abuse patient.[facility] HospitalIn the event this information is protected by the Federal Confidentiality of Alcohol and Drug Abuse Patient Records regulations: The Federal rules restrict any use of the information to criminally investigate or prosecute any alcohol or drug abuse patient.[facility] HospitalIn the event this information is protected by the Federal Confidentiality of Alcohol and Drug Abuse Patient Records regulations: The Federal rules restrict any use of the information to criminally investigate or prosecute any alcohol or drug abuse patient.[facility] HospitalIn the event this information is protected by the Federal Confidentiality of Alcohol and Drug Abuse Patient Records regulations: The Federal rules restrict any use of the information to criminally investigate or prosecute any alcohol or drug abuse patient.[facility] HospitalIn the event this information is protected by the Federal Confidentiality of Alcohol and Drug Abuse Patient Records regulations: The Federal rules restrict any use of the information to criminally investigate or prosecute any alcohol or drug abuse patient.[facility] HospitalIn the event this information is protected by the Federal Confidentiality of Alcohol and Drug Abuse Patient Records regulations: The Federal rules restrict any use of the information to criminally investigate or prosecute any alcohol or drug abuse patient.[facility] HospitalIn the event this information is protected by the [facility] Confidentiality of Alcohol and Drug Abuse Patient Records regulations: The Federal rules restrict any use of the information to criminally investigate or prosecute any alcohol or drug abuse patient.[facility] HospitalIn the event this information is protected by the Federal Confidentiality of Alcohol and Drug Abuse Patient Records regulations: The Federal rules restrict any use of the information to criminally investigate or prosecute any alcohol or drug abuse patient.[facility] Care Teams (unrecognized sec tion and content) [employer] Relationship Specialty Start Date End Date Tien Serrano MD [address] [place], [place] [id number] PCP - General Family Practice 03/14/21 13, Pharmacist [id number] [place] [address] Pharmacist Pharmacy 12/29/19 [employer] Relationship Specialty Start Date End Date Tien Serrano MD [address] [place], [place] [id number] PCP - General Family Practice 03/14/21 13, Pharmacist [id number] [place] [address] Pharmacist Pharmacy 12/29/19 [employer] Relationship Specialty Start Date End Date Tien Serrano MD [address] [facility] [place] [address] PCP - General Family Practice 03/14/21 13, Pharmacist [id number] [place] [address] Pharmacist Pharmacy 12/29/19 [employer] Relationship Specialty Start Date End Date Tien Serrano MD [address] [facility] [place] [address] PCP - General Family Practice 03/14/21 13, Pharmacist [id number] [place] [address] Pharmacist Pharmacy 12/29/19 [employer] Spinner Relationship Specialty Start Date End Date Tien Serrano MD [address] [place] [address] PCP - General Family Practice 03/14/21 13, Pharmacist [id number] [place] [address] Pharmacist Pharmacy 12/29/19 [employer]ist Spinner Relationship Specialty Start Date End Date Tien Serrano MD [address] [place] [address] PCP - General Family Practice 03/14/21, Pharmacist [phone] [place] [address] Pharmacist Pharmacy 12/29/19 Uptwist Spinner Relationship Specialty Start Date End Date Tien Serrano MD [address] [place] [address] PCP - General Family Practice 03/14/21 13, Pharmacist 81294 [place] [address] Pharmacist Pharmacy 12/29/19 Uptwist Spinner Relationship Specialty Start Date End Date Tien Serrano MD [address] [place] [address] PCP - General Family Practice 03/14/21 13, Pharmacist [address]61 [place] [address] Pharmacist Pharmacy 12/29/19 Uptwist Spinner Relationship Specialty Start Date End Date Tien Serrano MD [address] [facility] [place] [address] PCP - General Family Practice 03/14/21 13, Pharmacist [address]62 [place] [address] Pharmacist Pharmacy 12/29/19 Uptwist Spinner Relationship Specialty Start Date End Date Tien Serrano MD [address] [facility] [place] [address] PCP - General Family Practice 03/14/21, Pharmacist 22772 [place] [address] Pharmacist Pharmacy 12/29/19 Uptwist Spinner Relationship Specialty Start Date End Date Tien Serrano MD [address] [facility] [place] [address] PCP - General Family Practice 03/14/21, Pharmacist 80891 [place] [address] Pharmacist Pharmacy 12/29/19 Uptwist Spinner Relationship Specialty Start Date End Date Tien Serrano MD [address] [facility] [place] [address] PCP - General Family Practice 03/14/21, Pharmacist 66151 [place] [address] Pharmacist Pharmacy 12/29/19 Uptwist Spinner Relationship Specialty Start Date End Date Tien Serrano MD [address] [facility] [place] [address] PCP - General Family Medicine 03/14/21 13, Pharmacist [address]49 [place] [address] Pharmacist Pharmacy 12/29/19 Uptwist Spinner Relationship Specialty Start Date End Date iTen Serrano MD [address] [facility] [place] [address] PCP - General Family Medicine 03/14/21, Pharmacist [address] [place] [address] Pharmacist Pharmacy 12/29/19 Uptwist Spinner Relationship Specialty Start Date End Date Tien Serrano MD [address] [place] [address] PCP - General Family Medicine 03/14/21, Pharmacist 43364 [place] [address] Pharmacist Pharmacy 12/29/19 Uptwist Spinner Relationship Specialty Start Date End Date Tien Serrano MD [address] [place] [address] PCP - General Family Medicine 03/14/21, Pharmacist [phone] [place] [address] Pharmacist Pharmacy 12/29/19 Uptwist Spinner Relationship Specialty Start Date End Date Tien Serrano MD [address] [place] [address] PCP - General Family Medicine 03/14/21, Pharmacist [phone] [place] [address] Pharmacist Pharmacy 12/29/19 Uptwist Spinner Relationship Specialty Start Date End Date Tien Serrano MD [address] [place] [address] PCP - General Family Medicine 03/14/21, Pharmacist [address]16 [place] [address] Pharmacist Pharmacy 12/29/19 Uptwist Spinner Relationship Specialty Start Date End Date Tien Serrano MD [address] [place] [address] PCP - General Family Medicine 03/14/21 13, Pharmacist [address]220 [place] [address] Pharmacist Pharmacy 12/29/19 Uptwist Spinner Relationship Specialty Start Date End Date Tien Serrano MD [address] [facility] [place] [address] PCP - General Family Medicine 03/14/21 13, Pharmacist [address]33 [place] [address] Pharmacist Pharmacy 12/29/19 Uptwist Spinner Relationship Specialty Start Date End Date Tien Serrano MD [address] [facility] [place] [address] PCP - General Family Medicine 03/14/21 13, Pharmacist 26279 [place] [address] Pharmacist Pharmacy 12/29/19 Uptwist Spinner Relationship Specialty Start Date End Date Tien Serrano MD [address] [place] [address] PCP - General Family Medicine 03/14/21 13, Pharmacist 29921 [place] [address] Pharmacist Pharmacy 12/29/19 Uptwist Spinner Relationship Specialty Start Date End Date Tien Serrano MD [address] [place] [address] PCP - General Family Medicine 03/14/21 13, Pharmacist 51407 [place] [address] Pharmacist Pharmacy 12/29/19 Uptwist Spinner Relationship Specialty Start Date End Date Tien Serrano MD [address] [facility] [place] [address] PCP - General Family Medicine 03/14/21 13, Pharmacist 34482 [place] [address] Pharmacist Pharmacy 12/29/19 Uptwist Spinner Relationship Specialty Start Date End Date Tien Serrano MD [address] [place] [address] PCP - General Family Medicine 03/14/21 13, Pharmacist [address] [place] [address] Pharmacist Pharmacy 12/29/19 Uptwist Spinner Relationship Specialty Start Date End Date Tien Serrano MD [address] [place] [address] PCP - General Family Medicine 03/14/21 13, Pharmacist [address] [place] [address] Pharmacist Pharmacy 12/29/19 Uptwist Spinner Relationship Specialty Start Date End Date Tien Serrano MD [address] [place] [address] PCP - General Family Medicine 03/14/21, Pharmacist [phone] [place] [address] Pharmacist Pharmacy 12/29/19 Uptwist Spinner Relationship Specialty Start Date End Date Tien Serrano MD [address] [place] [address] PCP - General Family Medicine 03/14/21, Pharmacist 87975 [place] [address] Pharmacist Pharmacy 12/29/19 Uptwist Spinner Relationship Specialty Start Date End Date Tien Serrano MD [address] [place] [address] PCP - General Family Medicine 03/14/21 13, Pharmacist [address]2005 [place] [address] Pharmacist Pharmacy 12/29/19 Uptwist Spinner Relationship Specialty Start Date End Date Tien Serrano MD [address] [place] [address] PCP - General Family Medicine 03/14/21 13, Pharmacist 82866 [place] [address] Pharmacist Pharmacy 12/29/19 Uptwist Spinner Relationship Specialty Start Date End Date Tien Serrano MD [address] [facility] [place] [address] PCP - General Family Medicine 03/14/21 13, Pharmacist 7[address]58 [place] [address] Pharmacist Pharmacy 12/29/19 Uptwist Spinner Relationship Specialty Start Date End Date Tien Serrano MD [address] [place] [address] PCP - General Family Medicine 03/14/21, Pharmacist 60290 [place] [address] Pharmacist Pharmacy 12/29/19 Uptwist Spinner Relationship Specialty Start Date End Date Tien Serrano MD [address] [facility] [place] [address] PCP - General Family Medicine 03/14/21, Pharmacist 44334 [place] [address] Pharmacist Pharmacy 12/29/19 Uptwist Spinner Relationship Specialty Start Date End Date Tien Serrano MD [address] [place] [address] PCP - General Family Medicine 03/14/21 13, Pharmacist [address]87 [place] [address] Pharmacist Pharmacy 12/29/19 Uptwist Spinner Relationship Specialty Start Date End Date Tien Serrano MD [address] [facility] Mail Code [address] [place] [address] PCP - General Family Medicine 10/17/21 Uptwist Spinner Relationship Specialty Start Date End Date Tien Serrano MD [address] [facility] [place] [address] PCP - General Family Medicine 03/14/21, Pharmacist 6[address]65 [place] [address] Pharmacist Pharmacy 12/29/19 Uptwist Spinner Relationship Specialty Start Date End Date Tien Serrano MD [address] [facility] [place] [address] PCP - General Family Medicine 03/14/21, Pharmacist 53196 [place] [address] Pharmacist Pharmacy 12/29/19 Uptwist Spinner Relationship Specialty Start Date End Date Tien Serrano MD [address] [facility] [place] [address] PCP - General Family Medicine 03/14/21, Pharmacist [address]3845 [place] [address] Pharmacist Pharmacy 12/29/19 Uptwist Spinner Relationship Specialty Start Date End Date Tien Serrano MD [address] [facility] [place] [address] PCP - General Family Medicine 03/14/21, Pharmacist 74466 [place] [address] Pharmacist Pharmacy 12/29/19 Uptwist Spinner Relationship Specialty Start Date End Date Tien Serrano MD [address] [facility] [place] [address] PCP - General Family Medicine 03/14/21 13, Pharmacist [address]133 [place] [address] Pharmacist Pharmacy 12/29/19 Uptwist Spinner Relationship Specialty Start Date End Date Tien Serrano MD [address] [facility] Mail Code Wo[address] [place] [address] PCP - General Family Medicine 10/17/21 Uptwist Spinner Relationship Specialty Start Date End Date Tien Serrano MD [address] [place] [address] PCP - General Family Medicine 03/14/21 13, Pharmacist 5[address]32 [place] [address] Pharmacist Pharmacy 12/29/19 Uptwist Spinner Relationship Specialty Start Date End Date Tien Serrano MD [address] [place] [address] PCP - General Family Medicine 03/14/21 13, Pharmacist [address]15 [place] [address] Pharmacist Pharmacy 12/29/19 Uptwist Spinner Relationship Specialty Start Date End Date Tien Serrano MD [address] [place] [address] PCP - General Family Medicine 03/14/21 13, Pharmacist 88323 [place] [address] Pharmacist Pharmacy 12/29/19 Uptwist Spinner Relationship Specialty Start Date End Date Tien Serrano MD [address] [place] [address] PCP - General Family Medicine 03/14/21 13, Pharmacist 55946 [place] [address] Pharmacist Pharmacy 12/29/19 Uptwist Spinner Relationship Specialty Start Date End Date Tien Serrano MD [address] [place] [address] PCP - General Family Medicine 03/14/21 13, Pharmacist 82786 [place] [address] Pharmacist Pharmacy 12/29/19 Uptwist Spinner Relationship Specialty Start Date End Date Tien Serrano MD [address] [place] [address] PCP - General Family Medicine 03/14/21 13, Pharmacist 82184 [place] [address] Pharmacist Pharmacy 12/29/19 Uptwist Spinner Relationship Specialty Start Date End Date Tien Serrano MD [address] [place] [address] PCP - General Family Medicine 03/14/21 13, Pharmacist [address]247 [place] [address] Pharmacist Pharmacy 12/29/19 Uptwist Spinner Relationship Specialty Start Date End Date Tien Serrano MD [address] [place] [address] PCP - General Family Medicine 03/14/21 13, Pharmacist [address]03 [place] [address] Pharmacist Pharmacy 12/29/19 Uptwist Spinner Relationship Specialty Start Date End Date Tien Serrano MD [address] [place] [address] PCP - General Family Medicine 03/14/21 13, Pharmacist [address]6828 [place] [address] Pharmacist Pharmacy 12/29/19 Uptwist Spinner Relationship Specialty Start Date End Date Tien Serrano MD [address] [place] [address] PCP - General Family Medicine 03/14/21 13, Pharmacist 55824 [place] [address] Pharmacist Pharmacy 12/29/19 Uptwist Spinner Relationship Specialty Start Date End Date Tien Serrano MD [address] [place] [address] PCP - General Family Medicine 03/14/21 13, Pharmacist [address]83 [place] [address] Pharmacist Pharmacy 12/29/19 Uptwist Spinner Relationship Specialty Start Date End Date Tien Serrano MD [address] [place] [address] PCP - General Family Medicine 03/14/21, Pharmacist 29666 [place] [address] Pharmacist Pharmacy 12/29/19 Uptwist Spinner Relationship Specialty Start Date End Date Tien Serrano MD [address] [place] [address] PCP - General Family Medicine 03/14/21 13, Pharmacist 36586 [place] [address] Pharmacist Pharmacy 12/29/19 Uptwist Spinner Relationship Specialty Start Date End Date Tien Serrano MD [address] [place] [address] PCP - General Family Medicine 03/14/21, Pharmacist 29949 [place] [address] Pharmacist Pharmacy 12/29/19 Uptwist Spinner Relationship Specialty Start Date End Date Tien Serrano MD [address] [place] [address] PCP - General Family Medicine 03/14/21 13, Pharmacist [address]19 [place] [address] Pharmacist Pharmacy 12/29/19 Katy Galdamez APRN.SR. OPERATIONS MANAGER [address] [place] [address] [facility] 05/16/24 Alejandrina Quigley APRN.SR. OPERATIONS MANAGER [address] [facility] [place] [address] Prepleater [facility] 05/16/24 Uptwist Spinner Relationship Specialty Start Date End Date Tien Serrano MD [address] [place] [address] PCP - General Family Medicine 03/14/21 13, Pharmacist 54833 [place] [address] Pharmacist Pharmacy 12/29/19 Katy Galdamez APRN.SR. OPERATIONS MANAGER [address] [place] [address] [facility]24 Alejandrina Quigley APRN.SR. OPERATIONS MANAGER [address] [place] [address] [facility] 05/16/24 Uptwist Spinner Relationship Specialty Start Date End Date Tien Serrano MD [address] [place] [address] PCP - General Family Medicine 03/14/21 13, Pharmacist [address]49 [place] [address] Pharmacist Pharmacy 12/29/19 Katy Galdamez APRN.SR. OPERATIONS MANAGER [address] [place] [address] Prepleater [facility] 05/16/24 Alejandrina Quigley APRN.SR. OPERATIONS MANAGER [address] [place] [address] [facility] 05/16/24 Uptwist Spinner Relationship Specialty Start Date End Date Tien Serrano MD [address] [facility] [place] [address] PCP - General Family Medicine 03/14/21 13, Pharmacist 15206 [place] [address] Pharmacist Pharmacy 12/29/19 Katy Galdamez CLINICAL UNIT EDUCATOR.SR. OPERATIONS MANAGER [address] [place] [address] Pre[facility] 05/16/24 Alejandrina Quigley CLINICAL UNIT EDUCATOR.SR. OPERATIONS MANAGER [address] [facility] [place] [address] [facility] 05/16/24 Uptwist Spinner Relationship Specialty Start Date End Date Tien Serrano MD [address] [facility] [place] [address] PCP - General Family Medicine 03/14/21 13, Pharmacist 57208 [place] [address] Pharmacist Pharmacy 12/29/19 Katy Galdamez CLINICAL UNIT EDUCATOR.SR. OPERATIONS MANAGER [address] [place] [address] [facility] 05/16/24 Alejandrina Quigley CLINICAL UNIT EDUCATOR.SR. OPERATIONS MANAGER [address] [facility] [place] [address] [facility] 05/16/24 Uptwist Spinner Relationship Specialty Start Date End Date Tien Serrano MD [address] [facility] [place] [address] PCP - General Family Medicine 03/14/21 13, Pharmacist [address]31 [place] [address] Pharmacist Pharmacy 12/29/19 Katy Galdamez APRN.SR. OPERATIONS MANAGER [address] [place] [address] [facility] 05/16/24 Alejandrina Quigley CLINICAL UNIT EDUCATOR.SR. OPERATIONS MANAGER [address] [facility] [place] [address] [facility] 05/16/24 Uptwist Spinner Relationship Specialty Start Date End Date Tien Serrano MD [address] [place] [address] PCP - General Family Medicine 03/14/21 13, Pharmacist [address]23 [place] [address] Pharmacist Pharmacy 12/29/19 Katy Galdamez CLINICAL UNIT EDUCATOR.SR. OPERATIONS MANAGER [address] [place] [address] [facility]/16/24 Alejandrina Quigley CLINICAL UNIT EDUCATOR.SR. OPERATIONS MANAGER [address] [place] [address] [facility] 05/16/24 Uptwist Spinner Relationship Specialty Start Date End Date Tien Serrano MD [address] [facility] [address] PCP - General Family Medicine 03/14/21 13, Pharmacist [address]50 [place] [address] Pharmacist Pharmacy 12/29/19 Katy Galdamez APRN.SR. OPERATIONS MANAGER [address] [place] [address] [facility] 05/16/24 Alejandrina Quigley APRN.SR. OPERATIONS MANAGER [address] [facility] [place] [address] [facility] 05/16/24 Uptwist Spinner Relationship Specialty Start Date End Date Tien Serrano MD [address] [facility] [place] [address] PCP - General Family Medicine 03/14/21 13, Pharmacist [address]25 [place] [address] Pharmacist Pharmacy 12/29/19 Katy Galdamez APRN.SR. OPERATIONS MANAGER [address] [place] [address] Pre[facility] 05/16/24 Alejandrina Quigley CLINICAL UNIT EDUCATOR.SR. OPERATIONS MANAGER [address] [facility] [place] [address] [facility] 05/16/24 Uptwist Spinner Relationship Specialty Start Date End Date Tien Serrano MD [address] [facility] [place] [address] PCP - General Family Medicine 03/14/21 13, Pharmacist [address]159 [place] [address] Pharmacist Pharmacy 12/29/19 Katy Galdamez CLINICAL UNIT EDUCATOR.SR. OPERATIONS MANAGER [address] [place] [address] [facility] 05/16/24 Alejandrina Quigley APRN.SR. OPERATIONS MANAGER [address] [facility] [place] [address] [facility] 05/16/24 Uptwist Spinner Relationship Specialty Start Date End Date Tien Serrano MD [address] [place] [address] PCP - General Family Medicine 03/14/21 13, Pharmacist [address] [place] [address] Pharmacist Pharmacy 12/29/19 Katy Galdamez APRN.SR. OPERATIONS MANAGER [address] [place] [address] [facility] 05/16/24 Alejandrina Quigley APRN.SR. OPERATIONS MANAGER [address] [place] [address] [facility] 05/16/24 Uptwist Spinner Relationship Specialty Start Date End Date Tien Serrano MD PCP - General Family Medicine 10/17/21 Uptwist Spinner Relationship Specialty Start Date End Date Tien Serrano MD [address] [place] [address] PCP - General Family Medicine 03/14/21 13, Pharmacist 71370 [place] [address] Pharmacist Pharmacy 12/29/19 Katy Galdamez APRN.SR. OPERATIONS MANAGER [address] [place] [address] [facility] 05/16/24 Alejandrina Quigley APRN.SR. OPERATIONS MANAGER [address] [place] [address] [facility] 05/16/24 Uptwist Spinner Relationship Specialty Start Date End Date Tien Serrano MD [address] [place] [address] PCP - General Family Medicine 03/14/21 13, Pharmacist [address]88 [place] [address] Pharmacist Pharmacy 12/29/19 Katy Galdamez, CLINICAL UNIT EDUCATOR.SR. OPERATIONS MANAGER [address] [place] [address] [facility] 05/16/24 Alejandrina Quigley CLINICAL UNIT EDUCATOR.SR. OPERATIONS MANAGER [address] [place] [address] [facility] 05/16/24 Uptwist Spinner Relationship Specialty Start Date End Date Tien Serrano MD [address] [place] [address] PCP - General Family Medicine 03/14/21 13, Pharmacist 93416 [place] [address] Pharmacist Pharmacy 12/29/19 Katy Galdamez, CLINICAL UNIT EDUCATOR.SR. OPERATIONS MANAGER [address] [place] [address] [facility] 05/16/24 Alejandrina Quigley CLINICAL UNIT EDUCATOR.SR. OPERATIONS MANAGER [address] [place] [address] [facility] 05/16/24 Uptwist Spinner Relationship Specialty Start Date End Date Tien Serrano MD [address] [place] [address] PCP - General Family Medicine 03/14/21 13, Pharmacist [address]286 [place] [address] Pharmacist Pharmacy 12/29/19 Katy Galdamez APRN.SR. OPERATIONS MANAGER [address] [place] [address] [facility] 05/16/24 Alejandrina Quigley APRN.SR. OPERATIONS MANAGER [address] [facility] [place], [place] [address] [phone] [facility] 05/16/24 Uptwist Spinner Relationship Specialty Start Date End Date Tien Serrano MD [address] [place], [place] [address] PCP - General Family Medicine 03/14/21 13, Pharmacist [address]758 [place] [address] Pharmacist Pharmacy 12/29/19 Katy Galdamez APRN.SR. OPERATIONS MANAGER [address] [place] [address] [facility] 05/16/24 Alejandrina Qiugley APRN.SR. OPERATIONS MANAGER [address] [facility] [place] [address] [facility] 05/16/24 Team Status: Active Member Role/Relationship Status Dates Dr. Geoffrey Garcia III, MD Family Provider Active Team Status: Inactive Member Role/Relationship Status Dates Iglesia DOE, PA Attending Provider Active Start: January 16, 2025 End: January 16, 2025 Uptwist Spinner Relationship Specialty Start Date End Date Tien Serrano MD [address] [facility] [place], [place] [address] PCP - General Family Medicine 03/14/21 13, Pharmacist [address]89 [place] [address] Pharmacist Pharmacy 12/29/19 Katy Galdamez APRN.SR. OPERATIONS MANAGER [address] [place] [address] [facility] 05/16/24 Alejandrina Quigley APRN.SR. OPERATIONS MANAGER [address] [place] [address] [facility] 05/16/24 (unrecognized sect ion and content) No Status Records FoundNo Status Records FoundNo Status Records Found INFORMATION SOURCE (unrecogn ized section and content) DATE CREATED AUTHOR 01/07/2025 [facility] DATE CREATED AUTHOR AUTHOR'S ORGANIZ ATION 01/17/2025 [facility] DATE CREATED AUTHOR AUTHOR'S ORGANIZ ATION 02/21/2025 [facility] Goals (unrecognized section and content) Goals [...] BE BASED ON THE PRIMARY CLINICAL RECORDS. [facility] [employer] [facility]. provides no warranty or guarantee of the accuracy or completeness of information in this document.
[2025-03-03] VITALS (7 sets, daily range): BP systolic 91–114; BP diastolic 49–77; PULSE 55–100; RESP 16–18; TEMP 36.4–36.8; O2SAT 91–94; BMI 29.2; BMI 29.1
[2025-03-03] MEDS: 0.9% Normal Saline (1000mL) 1,000 ML 70 ML IV (00:35)
[2025-03-03 00:57] LABS: Hematocrit 37.0 % (40-54); Hemoglobin 12.2 g/dL (13.0-16.5); Immature Granulocytes Count 0.030 X10^3/uL (0.0-0.0); Mean Corp Hgb Conc 33.0 g/dL (32-36); Mean Corpuscular Volume 97.4 fL (80-94); Mean Platelet Vol. 10.6 fl (6.2-12.0); NRBC Flagged by Analyzer 0 % (0-5); Platelet Count 154 K/mm3 (150-450); RBC Distribution Width CV 13.1 % (11.6-14.6); RBC Distribution Width SD 46.8 fl (35.1-43.9); Red Blood Count 3.80 M/mm3 (4.6-6.2); White Blood Count 10.4 K/mm3 (4.4-11.0)
--- NOTE | 2025-03-03 01:05 | CT_ITS ---
PROCEDURE: ABDOMEN/PELVIS W IV CONT ONLY 03/03/2025 REASON FOR EXAM: RIGTH ACETABULAR FRACTURE WITH HEMATOMA ON COUMADIN TECHNIQUE: Procedure Code: [id number] Modality: CT Procedure: ABDOMEN/PELVIS W IV CONT ONLY Coronal and Sagittal reconstruction series were provided. CONTRAST: OMNIPAQUE 350 VOLUME: 100 mL One or more dose reduction techniques were used (e.g., Automated exposure control, adjustment of the mA and/or kV according to patient size, use of iterative reconstruction technique. RADIATION DOSE SUMMARY: CTDlvol: 21.18 mGy DLP: 2052 mGycm COMPARISON: None. FINDINGS: Acute oblique mildly displaced fracture of the right iliac bone reaching the right acetabular roof. Acute nondisplaced fracture of the right inferior pubic ramus. Acute oblique mildly displaced fracture of the lateral aspect of the right superior pubic ramus reaching the acetabulum. Underlying deep pelvic/periacetabular acute hematoma measuring 11.7 x 7.3 cm without associated active bleeding during the time of the exam. Minimal bilateral pleural effusions. Passive atelectatic airspace disease of the lower lobes. Mild cardiomegaly. 3 mm left renal nonobstructing stone. Scattered left renal simple cysts with the largest measuring 1.6 cm. Mild prostatomegaly. Scattered prostatic calcifications. Fat containing umbilical hernia without incarceration. Gastroparesis. Normal liver. Normal gallbladder and extrahepatic biliary system. Normal spleen. Normal pancreas. Normal bilateral adrenal glands. Normal size of the right kidney. There is no right renal mass. There are no right renal calculi. There is no right hydronephrosis. Normal visualized right ureter. Normal size of the left kidney. There is no left renal mass. There is no left hydronephrosis. Normal visualized left ureter. Normal small intestine. The appendix is visualized and appears normal. Normal inferior vena cava. Normal retroperitoneum. Normal urinary bladder. There is no pelvic mass lesion or lymphadenopathy. CT/Abdomen/Pelvis W IV Cont ONLY IMPRESSION: Acute oblique mildly displaced fracture of the right iliac bone reaching the ri ght acetabular roof. Acute nondisplaced fracture of the right inferior pubic ramus. Acute oblique mildly displaced fracture of the lateral aspect of the right supe rior pubic ramus reaching the acetabulum. Underlying deep pelvic/periacetabular acute hematoma measuring 11.7 x 7.3 cm wi thout associated active bleeding during the time of the exam. Minimal bilateral pleural effusions. Passive atelectatic airspace disease of the lower lobes. Mild cardiomegaly. 3 mm left renal nonobstructing stone. Scattered left renal simple cysts with the largest measuring 1.6 cm. Mild prostatomegaly. Scattered prostatic calcifications. Fat containing umbilical hernia without incarceration. Reading [facility] [address]
--- OUTSIDE RECORDS SUMMARY | 2025-03-03 01:17 | XMS RPT_ITS | CCD ---
Author Organization [facility] Care Team Providers Care Medical Records Assistant Name Role Phone Radha Geoffrey Primary Care Provider [phone], Pharmacist Unavailable Tien Serrano MD Primary Care Provider 13, Pharmacist Unavailable Tien Serrano MD Primary Care Provider Tien Serrano MD Primary Care Provider [phone], Pharmacist Unavailable Tien Serrano MD Primary Care Provider Tien Serrano MD Primary Care Provider Tien Serrano MD Primary Care Provider Tien Serrano MD Primary Care Provider Haagen DEHYDROGENATION OPERATOR HEAD.SHIREEN Katy Unavailable Suppan DEHYDROGENATION OPERATOR HEAD.SHIREEN, Alejandrina A Unavailable [phone] Suppan DEHYDROGENATION OPERATOR HEAD.SHIREEN, Alejandrina A Unavailable [phone] Suppan DEHYDROGENATION OPERATOR HEAD.SHIREEN, Alejandrina A Unavailable Tien Serrano MD Primary Care Provider TIEN [...] HEAD Referring Unavailable Iglesia Templeton Attending Provider [phone] Iglesia Templeton Attending Unavailable MAGGIE, TIEN Colmenares [...] Drug Class(es) Dates Sig (Normalized) Sig (Original) [id number] 200 actuat albuterol 0.09 mg/actuat metered dose [...] on above: Take 1 capsule by mo [facility] daily at bedtime. Problems Active Problems Problem [...] Long-term current use of drug therapy; Translations: [shelter 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] Onset: 10-28-2016 11-09-2017 Unclassified (1 source) Drug therapy finding; Translations: [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] Onset: [...] sources) Long-term current use of anticoagulant; Translations: [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] Onset: 04-11-2015 11-09-2017 Episodic Other aftercare (20 sources) Long-term current use of drug therapy; Translations: [Other assisted (current) drug therapy] Onset: 10-28-2016 10-28-2016 Episodic Other aftercare (1 source) shelter (current) use of anticoagulants; Translations: [shelter (current) use of anticoagulants] Onset: 08-04-2019 Episodic Other aftercare (1 source) Other exterminator termite (current) drug therapy; Translations: [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] Onset: [...] Test Name Value Interpretation Reference Range Facility [facility] 02-20-2025 [facility] Telephone ([facility]) -------- WILMER MORLEY ([id number]) 1940 M Date Time Provider Department 02/20/25 NAMITA GEE During your visit today, we recorded the following information about you: Namita Gee [facility] 02/20/2025 4:27 PM Signed [facility] Ambulatory Pharmacy Anticoagulation Clinic Anticoagulation Episode Summary Anticoagulation Care Providers Provider Role Specialty Phone number Tien Serrano MD Referring Family Medicine [phone] Wilmer Morley is a 84 year old [...] Mon; 5 mg all other days Sent [facility] message Advised patient to continue current weekly dose as noted above Next INR check due on 03/06/2025 Namita Gee [facility] Clinical Pharmacist, Pharmacy Anticoagulation Clinic Pharmacy Anticoagulation Clinic Pager: [phone]. Allergies As of Date: 02/20/2025 (No Known [...] Paroxysmal atrial fibrillation (HCC) [I48.0] 03/19/2015 04/11/2015 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 [Z79.*04/11/2015 Episodic lightheadedness [R42] 04/11/2015 01/21/2018 Bilateral edema of lower extremity [R60.0] 04/11/2015 01/10/2016 Venous (peripheral) insufficiency [I87.2] 04/11/2015 History of DVT (deep vein thrombosis) [Z86.718] 02/14/2016 Asymptomatic LV dysfunction [I51.9] 10/28/2016 shelter current use of antiarrhythmic medical*10/28/2016 Change in bowel movement [R19.8] 01/21/2018 03/14/2021 Stage 3a chronic kidney disease (HCC) [N18.31] 04/08/2018 Hyperglycemia [R73.9] 03/14/2021 Hypertensive kidney disease with stage 3a chron*11/06/2021 10/31/2022 Hx of skin cancer, basal cell [Z85.828] 11/08/2021 Vertigo [R42] 02/02/2024 Benign paroxysmal positional vertigo of right e*02/02/2024 Chronic obstructive pulmonary disease (HCC) [J4*02/12/2024 (more content not included)... Normal [facility] Chris 02-07-2025 [facility] WILMER MORLEY ([id number]) 1940 M Date Time Provider Department 02/07/25 ARABELLA LOPEZ During your visit today, we recorded the following information about you: Arabella Lopez [facility] 02/07/2025 8:40 AM Signed [facility] Ambulatory Pharmacy Anticoagulation Clinic Anticoagulation Episode Summary Anticoagulation Care Providers Provider Role Specialty Phone number Tien Serrano MD Referring Family Medicine [phone] Wilmer Morley is a 84 year old [...] Mon; 5 mg all other days Sent [facility] message Advised patient to continue current weekly dose as noted above Next home INR check scheduled on 02/21/2025 Patient advised to call the PAC with any medication changes, bleeding/bruising concerns, recent changes in vitamin k consumption, if any procedures are coming up, if they have been ill or in the hospital, and if they have missed any doses of warfarin. Arabella Lopez [facility] Clinical Pharmacist, Pharmacy Anticoagulation Clinic Pharmacy Anticoagulation Clinic Pager: [phone]. Allergies As of Date: 02/07/2025 (No Known [...] Paroxysmal atrial fibrillation (HCC) [I48.0] 03/19/2015 04/11/2015 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 [Z79.*04/11/2015 Episodic lightheadedness [R42] 04/11/2015 01/21/2018 Bilateral edema of lower extremity [R60.0] 04/11/2015 01/10/2016 Venous (peripheral) insufficiency [I87.2] 04/11/2015 History of DVT (deep vein thrombosis) [Z86.718] 02/14/2016 Asymptomatic LV dysfunction [I51.9] 10/28/2016 shelter current use of antiarrhythmic medical*10/28/2016 Change in bowel movement [R19.8] 01/21/2018 03/14/2021 Stage 3a chronic kidney disease (HCC) [N18.31] 04/08/2018 Hyperglycemia [ (more content not included)... Normal [facility] Basic metabolic 2000 panelOr dered By: Seema Nix on 01-26-2025 Anion gap [Moles/Vol] 12 mmol/L 8 - 15 mmol/L [facility] Calcium [Mass/Vol] 9.3 mg/dL 8.5 - 10. 2 mg/dL [facility] Chloride [Moles/Vol] 104 mmol/L 98 - 10 7 mmol/L [facility] CO2 [Moles/Vol] 21 mmol/L Low 22 - 30 mmol/L [facility] Creatinine [Mass/Vol] 1.45 mg/dL High 0.73 - 1.22 mg/dL [facility] GFR/1.73 sq M.predicted among non-blacks MDRD (S/P/Bld) [Vol rate/Area] 48 mL/min/{1.73_m2} Low - PINF [facility] Comment on above: Estimated Glomerular Filtration [...] [Mass/Vol] 90 mg/dL 74 - 99 mg/dL [facility] Comment on above: The [place] Diabete s Association (ADA) provides guidance for [...] Standards of Medical Care in Diabetes 2016, [place] [employer]. Diabetes Care. 2016.39(Suppl 1). Interpretation and review of laboratory results Abnormal [facility] Potassium [Moles/Vol] 4.5 mmol/L 3.7 - 5.1 mmol/L [facility] Sodium [Moles/Vol] 137 mmol/L 136 - 144 mmol/L [facility] Urea nitrogen [Mass/Vol] 31 mg/dL High 9 - 24 mg/dL [facility] Basic metabolic 2000 panelon 01-26-2025 Anion gap [Moles/Vol] 12 mmol/L Normal 8-15 [facility] Comment on above: Order Comment: Speci men Type: BLOOD SPECIMENOrdering Facility: [facility] Address: [address] [place] [address] Performed By: #### 2 4321-2 ####[facility] [id number] [place] [address] [place] Calcium [Mass/Vol] 9.3 mg/dL Normal 8.5-10.[address] [facility] Comment on above: Order Comment: Speci men Type: BLOOD SPECIMENOrdering Facility: [facility] Address: [address] [place] [address] Performed By: #### 2 4321-2 ####[place] [facility]LL[facility] [id number] [place] [address] [place] Chloride [Moles/Vol] 104 mmol/L Normal 98-107 [facility] Comment on above: Order Comment: Speci men Type: BLOOD SPECIMENOrdering Facility: [facility] Address: [address] [place] [address] Performed By: #### 2 4321-2 ####[facility]ARELLL[facility] [id number] [place] [address] [place] CO2 [Moles/Vol] 21 mmol/L Low 22-30 [facility] Comment on above: Order Comment: Speci men Type: BLOOD SPECIMENOrdering Facility: [facility] Address: [address] [place] [address] Performed By: #### 2 4321-2 ####[facility] [id number] [place] [address] [place] Creatinine [Mass/Vol] 1.45 mg/dL High 0.73-1.22 [facility] Comment on above: Order Comment: Speci men Type: BLOOD SPECIMENOrdering Facility: [facility] Address: [address] [place] [address] Performed By: #### 2 4321-2 ####[facility] [id number] [place] [address] [place] eGFRcr SerPlBld CKD-EPI 2020 48 mL/min/1.73m??? Low >=60 [facility] Comment on above: Order Comment: Martha murguia Type: BLOOD SPECIMENOrdering Facility: [facility] Address: [address] [place] [address] Result Comment: Mary Jo mated Glomerular Filtration [...] actual GFR. Performed By: #### 2 4321-2 ####[facility] [id number] [place] [address] [place] Glucose [Mass/Vol] 90 mg/dL Normal 74-[address] [facility] Comment on above: Order Comment: Martha murguia Type: BLOOD SPECIMENOrdering Facility: [facility] Address: [address] [place] [address] Result Comment: The [place] Diabetes Association (ADA) provides guidance for cutoff [...] Standards of Medical Care in Diabetes 2016, [place] Diabetes Association. Diabetes Care. 2016.39(Suppl 1). Performed By: #### 2 4321-2 ####[facility] [id number] [place] [address] [place] Potassium [Moles/Vol] 4.5 mmol/L Normal 3.7-5.1 [facility] Comment on above: Order Comment: Martha murguia Type: BLOOD SPECIMENOrdering Facility: [facility] Address: [address] [place] [id number] Performed By: #### 2 4321-2 ####[place] CLAUWNCL[facility] [id number] [place] [address] [place] Sodium [Moles/Vol] 137 mmol/L Normal 136-[address] [facility] Comment on above: Order Comment: Speci men Type: BLOOD SPECIMENOrdering Facility: [facility] Address: [facility] [place] [address] Performed By: #### 2 4321-2 ####[place] [facility] NORTENCLIA [id number] [place] [address] [place] Urea nitrogen [Mass/Vol] 31 mg/dL High 9-24 [facility] Comment on above: Order Comment: Speci men Type: BLOOD SPECIMENOrdering Facility: [facility] Address: [address] [place] [address] Performed By: #### 2 4321-2 ####[facility] [id number] OF [place] CNPEufemia 01-23-2025 [facility] WILMER MORLEY ([id number]) 1940 M Date Time Provider Department 01/23/25 NAMITA GEE During your visit today, we recorded the following information about you: Namita Gee RPh 01/23/2025 1:35 PM Signed [facility] Ambulatory Pharmacy Anticoagulation Clinic Anticoagulation Episode Summary Anticoagulation Care Providers Provider Role Specialty Phone number Tien Serrano MD Referring Family Medicine [phone] Wilmer Morley is a 84 year old [...] Mon; 5 mg all other days Sent [facility] message Advised patient to continue current weekly dose as noted above Next INR check due on 02/13/2025 Namita Gee [facility] Clinical Pharmacist, Pharmacy Anticoagulation Clinic Pharmacy Anticoagulation Clinic Pager: [phone]. Allergies As of Date: 01/23/2025 (No Known [...] Paroxysmal atrial fibrillation (HCC) [I48.0] 03/19/2015 04/11/2015 shelter (current) use of anticoagulants [Z79.*04/11/2015 Episodic lightheadedness [R42] 04/11/2015 01/21/2018 Bilateral edema of lower extremity [R60.0] 04/11/2015 01/10/2016 Venous (peripheral) insufficiency [I87.2] 04/11/2015 History of DVT (deep vein thrombosis) [Z86.718] 02/14/2016 Asymptomatic LV dysfunction [I51.9] 10/28/2016 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 medical*10/28/2016 Change in [...] Encounter Status:Closed by NAMITA GEE on 01/23/25 [place] [facility]20[facility] WILMER MORLEY ([id number]) 1940 M Date Time Provider Department 01/19/25 [...] 0 CONSULT TO SLEEP MEDICINE - ADULT [[id number]] Order #: [id number]: 1 FUTURE Prescriptions as of 02/03/2025 - [...] Paroxysmal atrial fibrillation (HCC) [I48.0] 03/19/2015 04/11/2015 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 [Z79.*04/11/2015 Episodic lightheadedness [R42] 04/11/2015 01/21/2018 Bilateral edema of lower extremity [R60.0] 04/11/2015 01/10/2016 Venous (peripheral) insufficiency [I87.2] 04/11/2015 History of DVT (deep vein thrombosis) [Z86.718] 02/14/2016 Asymptomatic LV dysfunction [I51.9] 10/28/2016 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 medical*10/28/2016 Change in [...] water w (more content not included)... Normal [facility] CNTHERAPYon 01-17-2025 CNTHERAPY OT/PT/Speech Visit (PTWS) -------- WILMER MORLEY ([id number]) 1940 M Date Time Provider Department 01/17/25 9:45 AM MICHELLE GOMEZ PTWS Date Time Provider Department Center 01/17/2025 9:45 AM [id number] GOMEZ PTMAURY Adames Reason for Visit: PT [...] 5 mg by mouth once daily. [facility] Office [facility] (DALIA) -------- WILMER MORLEY ([id number]) 1940 M Date Time Provider Department 01/16/25 2:15 PM BLAYNE DAVIS During your visit today, we recorded the following information about you: Blayne Davis APRN.FOLDER OPERATOR 01/16/2025 2:42 PM Signed Patient triaged at [facility]. Here today with suture removal, surgical procedure removing skin cancer. I advised patient to have sutures removed via medical biller/coder. Appears to be a complex surgical removal. Allergies As of Date: 01/16/2025 (No Known Allergies) Date Reviewed: 01/16/2025 Reviewed by: Yoana Daily LPN - Fully Assessed Reason for Visit: Other [0] Cmt: Stitch removal - Entered by patient Suture Removal [105] Cmt: Suture removal left forearm placed in [place] Primary Visit Diagnosis:Visit for suture removal [Z48.02] [...] Paroxysmal atrial fibrillation (HCC) [I48.0] 03/19/2015 04/11/2015 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 [Z79.*04/11/2015 Episodic lightheadedness [R42] 04/11/2015 01/21/2018 Bilateral edema of lower extremity [R60.0] 04/11/2015 01/10/2016 Venous (peripheral) insufficiency [I87.2] 04/11/2015 History of DVT (deep vein thrombosis) [Z86.718] 02/14/2016 Asymptomatic LV dysfunction [I51.9] 10/28/2016 shelter current use of antiarrhythmic medical*10/28/2016 Change in [...] Encounter Status:Closed by BLAYNE DAVIS on 01/16/25 [facility] Urgent Care Visit Reporton 0 01-16-2025 Urgent Care Visit Report [facility] [address], [address] [place] [address] OFFICE VISIT Date of Service: 01/16/25 MR#: [id number] Acct: [id number] Name: WILMER MORLEY Rep #: [id number] : 1940 Provider: BROOK Cabrera Age/Sex: 84/M Location: [facility] Status: Signed Intake Vital Signs 08/24/20 11:42 [...] year?: No Nurse's Note: Patient goes to [place] half the year. 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 Patient just need the sutures taken out. 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 This note was generated with Trave[employer]ation software. It may contain incorrect words, spelling, and punctuation that were not noted in checking the note before signing. Clinical Quality Measures Falls Risk Screening/Assistive Devices Have you fallen in the past year?: No 01/16/25 1607 Date Iglesia Perdue Signature: D (more content not included)... Normal [facility] POLYSOMNOGRAM (PSG)/HOME SLE EP APNEA TEST (HSAT)on 01-11-2025 POLYSOMNOGRAM (PSG)/HOME SLEEP APNEA TEST (HSAT) [facility] at [address], [address] [address] ; Home Sleep Apnea Test (HSAT) Study Report Name: WILMER MORLEY Date of Study: 01/11/2025 [facility]#: [id number] Age: 84 (: 1940) ESS: 08/29 Neck [...] unattended Type III, minimum of 4 parameters (14388) Procedure: This study was performed using a Type III ambulatory PSG device and was unattended. The patient was instructed on proper use of the device by a registered echocardiography radiology technologist. The monitored parameters included heart rate, oxygen [...] PANKAJ DIEGO MD (01/18/2025 5:31:56 PM) Normal [facility] 01-09-2025 CNPN Telephone (PHAMTE) -------- WILMER MORLEY ([id number]) 1940 M Date Time Provider Department 01/09/25 NAMITA GEE During your visit today, we recorded the following information about you: Namita Gee RPh 01/09/2025 1:53 PM Signed [facility] Ambulatory Pharmacy Anticoagulation Clinic Anticoagulation Episode Summary Anticoagulation Care Providers Provider Role Specialty Phone number Tien Serrano MD Referring Family Medicine [phone] Wilmer Maxwelley is a 84 year old [...] Mon; 5 mg all other days Sent [facility] message Advised patient to continue current weekly dose as noted above Next INR check due on 01/23/2025 Namita Gee [facility] Clinical Pharmacist, Pharmacy Anticoagulation Clinic Pharmacy Anticoagulation Clinic Pager: [phone]. Allergies As of Date: 01/09/2025 (No Known [...] Paroxysmal atrial fibrillation (HCC) [I48.0] 03/19/2015 04/11/2015 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 [Z79.*04/11/2015 Episodic lightheadedness [R42] 04/11/2015 01/21/2018 Bilateral edema of lower extremity [R60.0] 04/11/2015 01/10/2016 Venous (peripheral) insufficiency [I87.2] 04/11/2015 History of DVT (deep vein thrombosis) [Z86.718] 02/14/2016 Asymptomatic LV dysfunction [I51.9] 10/28/2016 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 medical*10/28/2016 Change in [...] Status:Closed by NAMITA GEE on 01/09/25 Normal [facility] CNPNon 12-22-2024 CNPN Telephone (PHAMTE) -------- WILMER MORLEY ([id number]) 1940 M Date Time Provider Department 12/22/24 JINNY SHAH During your visit today, we recorded the following information about you: Jinny Shah [facility] 12/22/2024 8:13 AM Signed [facility] Ambulatory Pharmacy Anticoagulation Clinic Anticoagulation Episode Summary Anticoagulation Care Providers Provider Role Specialty Phone number Tien Serrano MD Referring Family Medicine [phone] Wilmer Johnsonaffey is a 83 year old [...] ALLERGIES No Known Allergies 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 History of dvt (deep vein thrombosis) Anticoagulation Episode Summary Current INR goal: 2.0-3.0 Assessment: INR result of 3.0 is therapeutic Plan: Current Warfarin Dosing As of 12/22/2024 Full warfarin instructions: 7.5 mg every Mon; 5 mg all other days Sent [facility] message Advised patient to continue current weekly dose as noted above Next home INR check scheduled on 01/04/2025 Patient advised to call the PAC with any medication changes, bleeding/bruising concerns, recent changes in vitamin k consumption, if any procedures are coming up, if they have been ill or in the hospital, and if they have missed any doses of warfarin. Jinny Shah [facility] Clinical Pharmacist, Pharmacy Anticoagulation Clinic Pharmacy Anticoagulation Clinic Pager: [phone]. Arabella Lopez [facility] 01/05/2025 11:16 AM Signed Patient was due [...] an injectable anticoagulant - No Arabella Lopez [facility] Allergies As of Date: 12/22/2024 (No Known Allergies) Date Reviewed: 11/14/2024 Reviewed by: Lia Griffin MD - Fully Assessed Reason for Visit: Anticoagulation Telephone Fu [148] Cmt: Home INR Primary Visit Diagnosis: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 [Z79.01] Other Visit [...] [I07.1] 02/02/20 (more content not included)... Normal [facility] Basic metabolic 2000 panelOr dered By: Laquita Sainz on 12-15-2024 Anion gap [Moles/Vol] 14 mmol/L 8 - 15 mmol/L [facility] Calcium [Mass/Vol] 9.4 mg/dL 8.5 - 10. 2 mg/dL [facility] Chloride [Moles/Vol] 103 mmol/L 98 - 10 7 mmol/L [facility] CO2 [Moles/Vol] 21 mmol/L Low 22 - 30 mmol/L [facility] Creatinine [Mass/Vol] 1.65 mg/dL High 0.73 - 1.22 mg/dL [facility] GFR/1.73 sq M.predicted among non-blacks MDRD (S/P/Bld) [Vol rate/Area] 41 mL/min/{1.73_m2} Low - PINF [facility] Comment on above: Estimated Glomerular Filtration [...] [Mass/Vol] 92 mg/dL 74 - 99 mg/dL [facility] Comment on above: The [place] Diabete s Association (ADA) provides guidance for [...] Standards of Medical Care in Diabetes 2016, [place] [employer]. Diabetes Care. 2016.39(Suppl 1). Interpretation and review of laboratory results Abnormal [facility] Potassium [Moles/Vol] 4.2 mmol/L 3.7 - 5.1 mmol/L [facility] Sodium [Moles/Vol] 138 mmol/L 136 - 144 mmol/L [facility] Urea nitrogen [Mass/Vol] 40 mg/dL High 9 - 24 mg/dL [facility] Basic metabolic 2000 panelon 12-15-2024 Anion gap [Moles/Vol] 14 mmol/L Normal 8-15 [facility] Comment on above: Order Comment: Speci men Type: BLOOD SPECIMENOrdering Facility: [facility] Address: [address] [place] [address] Performed By: #### 2 4321-2 ####[facility] [id number] [place] [address] [place] Calcium [Mass/Vol] 9.4 mg/dL Normal 8.5-10.[address] [facility] Comment on above: Order Comment: Speci men Type: BLOOD SPECIMENOrdering Facility: [facility] Address: [address] [place] [address] Performed By: #### 2 4321-2 ####[facility]ITALNCELLYN [id number] [place] [address] [place] Chloride [Moles/Vol] 103 mmol/L Normal 98-107 [facility] Comment on above: Order Comment: Speci men Type: BLOOD SPECIMENOrdering Facility: [facility] Address: [address] [place] [address] Performed By: #### 2 4321-2 ####[facility]ITALNCLIA [id number] [place] [address] [place] CO2 [Moles/Vol] 21 mmol/L Low 22-30 [facility] Comment on above: Order Comment: Speci men Type: BLOOD SPECIMENOrdering Facility: [facility] Address: [address] [place] [address] Performed By: #### 2 4321-2 ####[facility]ITALNCLI [id number] [place] [address] [place] Creatinine [Mass/Vol] 1.65 mg/dL High 0.73-1.22 [facility] Comment on above: Order Comment: Speci men Type: BLOOD SPECIMENOrdering Facility: [facility] Address: [address] [place] [address] Performed By: #### 2 4321-2 ####[facility]ITALNC[facility] [id number] [address] [place] Creatinine and Glomerular filtration rate.predicted panel (S/P/Bld) 41 mL/min/1.73m??? Low >=60 [facility] Comment on above: Order Comment: Martha murguia Type: BLOOD SPECIMENOrdering Facility: [facility] Address: [address] [place] [address] Result Comment: Mary Jo mated Glomerular Filtration [...] actual GFR. Performed By: #### 2 4321-2 ####[facility] [id number] [place] [address] [place] Glucose [Mass/Vol] 92 mg/dL Normal 74-[address] [facility] Comment on above: Order Comment: Martha murguia Type: BLOOD SPECIMENOrdering Facility: [facility] Address: [address] [place] [address] Result Comment: The [place] Diabetes Association (ADA) provides guidance for cutoff [...] Standards of Medical Care in Diabetes 2016, [place] [employer] Association. Diabetes Care. 2016.39(Suppl 1). Performed By: #### 2 4321-2 ####[facility]ENTERWDARELLLIA [id number] [place] [address] [place] Potassium [Moles/Vol] 4.2 mmol/L Normal 3.7-5.1 [facility] Comment on above: Order Comment: Martha murguia Type: BLOOD SPECIMENOrdering Facility: [facility] Address: [address] [place] [address] Performed By: #### 2 4321-2 ####[facility]OSPITALFay [id number] [place] [address] [place] Sodium [Moles/Vol] 138 mmol/L Normal 136-[address] [facility] Comment on above: Order Comment: Martha murguia Type: BLOOD SPECIMENOrdering Facility: [facility] Address: [address] [place] [address] Performed By: #### 2 4321-2 ####[facility] HOSPITALLIFay [id number] [place] [address] [place] Urea nitrogen [Mass/Vol] 40 mg/dL High 9-24 [facility] Comment on above: Order Comment: Martha murguia Type: BLOOD SPECIMENOrdering Facility: [facility] Address: [address] [place] [address] Performed By: #### 2 4321-2 ####[facility] HOSPITALLIA [id number] [place] [address] [place] Basic metabolic 2000 panelon 12-07-2024 Anion gap [Moles/Vol] 13 mmol/L Normal 8-15 [facility] Comment on above: Order Comment: Speci men Type: BLOOD SPECIMENOrdering Facility: [facility] Address: [address] [place] [address] Performed By: #### 2 432-2, ####[facility] LABCLIA [id number] [place] [id number] [place] Calcium [Mass/Vol] 9.0 mg/dL Normal 8.5-10.[address] [facility] Comment on above: Order Comment: Speci men Type: BLOOD SPECIMENOrdering Facility: [facility] Address: [address] [place] [address] Performed By: #### 2 4320-2, ####[facility] LABCLIA [id number] [place] [address] [place] Chloride [Moles/Vol] 104 mmol/L Normal 98-107 [facility] Comment on above: Order Comment: Speci men Type: BLOOD SPECIMENOrdering Facility: [facility] Address: [address] [place] [address] Performed By: #### 2 2, ####[facility] LABCLIA [id number] [place] [address] [place] CO2 [Moles/Vol] 25 mmol/L Normal 22-30 [facility] Comment on above: Order Comment: Speci men Type: BLOOD SPECIMENOrdering Facility: [facility] Address: [address] [place], [place] [address] Performed By: #### 2 1-2, ####[facility] LABCLIA [id number] [place] [address] [place] Creatinine [Mass/Vol] 1.85 mg/dL High 0.73-1.22 [facility] Comment on above: Order Comment: Speci men Type: BLOOD SPECIMENOrdering Facility: [facility] Address: [address] [place] [address] Performed By: #### 2 4321-2, ####[facility] LABIA [id number] [place] [address] [place] Creatinine and Glomerular filtration rate.predicted panel (S/P/Bld) 36 mL/min/1.73m??? Low >=60 [facility] Comment on above: Order Comment: Martha murguia Type: BLOOD SPECIMENOrdering Facility: [facility] Address: [address] [place] [address] Result Comment: Mary Jo mated Glomerular Filtration [...] actual GFR. Performed By: #### 2 4321-2, ####[facility] LABIA [id number] [place] [address] [place] Glucose [Mass/Vol] 153 mg/dL High 74-[address] [facility] Comment on above: Order Comment: Martha murguia Type: BLOOD SPECIMENOrdering Facility: [facility] Address: [address] [place] [address] Result Comment: The [place] Diabetes Association (ADA) provides guidance for cutoff [...] Standards of Medical Care in Diabetes 2016, [place] Diabetes Association. Diabetes Care. 2016.39(Suppl 1). Performed By: #### 2 432-2, ####[facility] LABIA [id number] [address] [place] [address] [place] Potassium [Moles/Vol] 3.9 mmol/L Normal 3.7-5.1 [facility] Comment on above: Order Comment: Speci men Type: BLOOD SPECIMENOrdering Facility: [facility] Address: [address] [place] [address] Performed By: #### 2 4321-2, ####[facility] LABIA [id number] [address] [address] [place] Sodium [Moles/Vol] 142 mmol/L Normal 136-[address] [facility] Comment on above: Order Comment: Speci men Type: BLOOD SPECIMENOrdering Facility: [facility] Address: [address] [place] [address] Performed By: #### 2 4321-2, ####[facility] LABIA [id number] [address] [address] [place] Urea nitrogen [Mass/Vol] 46 mg/dL High 9-24 [facility] Comment on above: Order Comment: Speci men Type: BLOOD SPECIMENOrdering Facility: [facility] Address: [address] [place] [address] Performed By: #### 2 4321-2, ####[facility] LABIA [id number] [address] [address] [place] CNOVon 12-07-2024 CNOV Office Visit (FAMPWS ) -------- WILMER MORLEY ([id number]) 1940 Date Time Provider Department 12/07/24 9:00 AM TIEN SERRANOWS During your visit today, we recorded the following information about you: Pulse Blood pressure Weight 49/minute 118/58 93.9 kg Tien Serrano MD 12/07/2024 9:31 AM Signed - Take atenolol exactly as prescribed by your presser hand and do not restart Norvasc. - Continue [...] Internal h (more content not included)... Normal [facility] CNPNon 12-07-2024 CNPN Telephone (PHAMTE) -------- WILMER MORLEY ([id number]) 1940 M Date Time Provider Department 12/07/24 GHAZAL BAILEY During your visit today, we recorded the following information about you: Ghazal Bailey RPh 12/07/2024 5:08 PM Signed [facility] Ambulatory Pharmacy Anticoagulation Clinic Anticoagulation Episode Summary Anticoagulation Care Providers Provider Role Specialty Phone number Tien Serrano MD Referring Family Medicine [phone] Wilmer Maxwelley is a 83 year old [...] ALLERGIES No Known Allergies 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 Ghazal Bailey [facility] Clinical Pharmacist, Pharmacy Anticoagulation Clinic Pharmacy Anticoagulation Clinic Pager: [phone]. 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 Normal [facility] Magnesium SerPl-mCncon 12-07 Magnesium [Mass/Vol] 1.7 mg/dL Normal 1.7-2.3 [facility] Comment on above: Order Comment: Speci men Type: BLOOD SPECIMENOrdering Facility: [facility] Address: [address] [place] [address] Performed By: #### 2 4321-2, 64287-7 ####[facility] LABCLIA [id number] [address] OF [facility] CNPNon 11-22-2024 CNPN Telephone (PHAMTE) -------- WILMER MORLEY ([id number]) 1940 M Date Time Provider Department 11/22/24 ARABELLA LOPEZ During your visit today, we recorded the following information about you: Arabella Lopez [facility] 11/22/2024 8:38 AM Signed [facility] Ambulatory Pharmacy Anticoagulation Clinic Anticoagulation Episode Summary Anticoagulation Care Providers Provider Role Specialty Phone number Tien Serrano MD Referring Family Medicine [phone] Wilmer Johnsonaffey is a 83 year old [...] Mon; 5 mg all other days Sent [facility] message Advised patient to continue current weekly [...] Pharmacy Anticoagulation Clinic Pharmacy Anticoagulation Clinic Pager: [phone]. Arabella Lopez RPh 12/06/2024 11:21 AM Signed [...] Paroxysmal atrial fibrillation (HCC) [I48.0] 03/19/2015 04/11/2015 shelter (current) use of anticoagulants [Z79.*04/11/2015 Episodic lightheadedness [R42] 04/11/2015 01/21/2018 Bilateral edema of lower extremity [R60.0] 04/11/2015 01/10/2016 Venous (peripheral) insufficiency [I87.2] 04/11/2015 History of DVT (deep vein thrombosis) [Z86.718] 02/14/2016 Asymptomatic LV dysfunction [I (more content not included)... Normal [facility] CNOVon 11-14-2024 CNOV Office Visit (PULMWS ) -------- WILMER MORLEY ([id number]) 1940 M Date Time Provider Department 11/14/24 8:45 AM LIA GRIFFIN PULMWS During your visit today, we recorded the following information about you: Pulse Respiration Blood pressure Weight 81/minute 17/minute 136/74 92.3 kg Lia Griffin MD 11/14/2024 10:27 AM Signed . Respiratory Dry Prong Note Patient name: Wilmer Morley PCP: Tien [...] k/uL 1.39 Monocytes % % 9.3 Abs Louisa <0.87 k/uL 0.62 Eosinophils % % 4.4 [...] aortic r (more content not included)... Normal [facility] Chris 11-08-2024 [facility] -------- WILMER MORLEY ([id number]) 1940 Date Time Provider Department 11/08/24 TIEN SERRANO [facility] During your visit today, we recorded the following information about you: Tien Serrano MD 11/08/2024 8:34 AM Signed His labs are stable. His bnp is up a little higher. Verify with him but I think he is seeing his presser hand, Dr Frank in [place] this week? If he is, lets fax [...] pound. Printed lab results and faxed to [phone] as requested. 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 medical*10/28/2016 Change in bowel movement [R19.8] 01/21/2018 03/14/2021 Stage 3a chronic kidney disease (HCC) [N18.31] 04/08/2018 Hyperglycemia [R73.9] 03/14/2021 Hypertensive kidney disease with stage 3a chron*11/06/2021 10/31/2022 Hx of skin cancer, basal cell [Z85.828] 11/08/2021 Lightheaded [R42] 02/02/2024 Benign paroxysmal positional vertigo of right e*02/02/2024 Chronic obstructive pulmonary disease (HCC) [J4*02/12/2024 Encounter Status:Closed by STEPHANY STEIN on 11/08/24 Normal [facility] Basic metabolic 2000 panelon 11-07-2024 Anion gap [Moles/Vol] 13 mmol/L Normal 8-15 [facility] Comment on above: Order Comment: Speci men Type: BLOOD SPECIMENOrdering Facility: [facility] Address: [address] [place] [address] Performed By: #### 1 9123-9, 68500-7 ####[place] MILLWNCLIA [id number] [place] [address] [place] Calcium [Mass/Vol] 9.4 mg/dL Normal 8.5-10.[address] [facility] Comment on above: Order Comment: Speci men Type: BLOOD SPECIMENOrdering Facility: [facility] Address: [address] [place] [address] Performed By: #### 1 9123-9, 74797-9 ####[place] MILLWNCLIA [id number] [place] [address] [place] Chloride [Moles/Vol] 103 mmol/L Normal 98-107 [facility] Comment on above: Order Comment: Speci men Type: BLOOD SPECIMENOrdering Facility: [facility] Address: [address] [place] [address] Performed By: #### 1 9123-9, 76385-6 ####[facility] MILLTOWNCLIA [id number] [place] [address] [place] CO2 [Moles/Vol] 22 mmol/L Normal 22-30 [facility] Comment on above: Order Comment: Speci men Type: BLOOD SPECIMENOrdering Facility: [facility] Address: [address] [place] [address] Performed By: #### 1 9123-9, 26028-9 ####[facility] MILLTOWNCLIA [id number] [place] [address] [place] Creatinine [Mass/Vol] 1.31 mg/dL High 0.73-1.22 [facility] Comment on above: Order Comment: Martha murguia Type: BLOOD SPECIMENOrdering Facility: [facility] Address: [address] [place] [address] Performed By: #### 1 9123-9, 20367-0 ####[facility] [id number] [place] [address] [place] Creatinine and Glomerular filtration rate.predicted panel (S/P/Bld) 54 mL/min/1.73m??? Low >=60 [facility] Comment on above: Order Comment: Martha murguia Type: BLOOD SPECIMENOrdering Facility: [facility] Address: [address] [place] [address] Result Comment: Mary Jo mated Glomerular Filtration [...] actual GFR. Performed By: #### 1 9123-9, 49748-7 ####[facility] HOSPITALLI [id number] [place] [address] [place] Glucose [Mass/Vol] 102 mg/dL High 74-[address] [facility] Comment on above: Order Comment: Martha murguia Type: BLOOD SPECIMENOrdering Facility: [facility] Address: [address] [place] [address] Result Comment: The [place] Diabetes Association (ADA) provides guidance for cutoff [...] Standards of Medical Care in Diabetes 2016, [place] [employer]. Diabetes Care. 2016.39(Suppl 1). Performed By: #### 1 9123-9, 07277-8 ####[place] SHARIGEETHA [id number] [place] [address] [place] Potassium [Moles/Vol] 4.4 mmol/L Normal 3.7-5.1 [facility] Comment on above: Order Comment: Martha murguia Type: BLOOD SPECIMENOrdering Facility: [facility] Address: [address] [place] [address] Performed By: #### 1 9123-9, 08167-8 ####[facility]ALEUNICE [id number] [place] [address] [place] Sodium [Moles/Vol] 138 mmol/L Normal 136-[address] [facility] Comment on above: Order Comment: Martha murguia Type: BLOOD SPECIMENOrdering Facility: [facility] Address: [address] [place] [address] Performed By: #### 1 9123-9, 86463-6 ####[facility] [id number] [place] [address] [place] Urea nitrogen [Mass/Vol] 32 mg/dL High 9-24 [facility] Comment on above: Order Comment: Martha murguia Type: BLOOD SPECIMENOrdering Facility: [facility] Address: [address] [place] [address] Performed By: #### 1 9123-9, 36214-5 ####[facility]ITALNCLIA [id number] [place] [address] [place] CNPEufemia 11-07-2024 CNPN Telephone ([facility]) -------- WILMER MORLEY ([id number]) 1940 M Date Time Provider Department 11/07/24 NAMITA GEE During your visit today, we recorded the following information about you: Namita Gee [facility] 11/07/2024 8:26 AM Signed [facility] Ambulatory Pharmacy Anticoagulation Clinic Anticoagulation Episode Summary Anticoagulation Care Providers Provider Role Specialty Phone number Tien Serrano MD Referring Family Medicine [phone] Wilmer Morley is a 83 year old [...] Mon; 5 mg all other days Sent [facility] message Advised patient to continue current weekly dose as noted above Next INR check due on 11/21/2024 Namita Gee [facility] Clinical Pharmacist, Pharmacy Anticoagulation Clinic Pharmacy Anticoagulation Clinic Pager: [phone]. 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 Normal [facility] Magnesium SerPl-mCncon 11-07 Magnesium [Mass/Vol] 1.8 mg/dL Normal 1.7-2.3 [facility] Comment on above: Order Comment: Speci men Type: BLOOD SPECIMENOrdering Facility: [facility] Address: [address] [place] [address] Performed By: #### 1 9123-9, 02651-8 ####[facility] [id number] [address] STATES OF [facility] NT-proBNP [facility] Montgomeryon 11-07 Natriuretic peptide.B prohormone N-Terminal [Mass/Vol] 2170 pg/mL High <450 [facility] Comment on above: Order Comment: Speci men Type: BLOOD SPECIMENOrdering Facility: [facility] Address: [address] [place] [address] Performed By: #### 3 3762-6 ####[facility] LABCLIA [id number] [address] [place] CNOVon 11-02-2024 CNOV Office Visit (FAMPWS ) -------- WILMER MORLEY ([id number]) 1940 M Date Time Provider Department 11/02/24 [...] without alteration from previous ov: Wintered in [place]. Had elected initially not see pulmonary. Had [...] Abs Lymph 1.00 - 4.00 k/uL 1.39 Louisa% % 9.3 Abs Louisa <0.87 k/uL 0.62 Eosin% % 4.4 Abs [...] (chronic kidn (more content not included)... Normal [facility] Basic metabolic 2000 panelOr dered By: Seema Nix on 11-01-2024 Anion gap [Moles/Vol] 13 mmol/L 8 - 15 mmol/L [facility] Calcium [Mass/Vol] 9 mg/dL 8.5 - 10. 2 mg/dL [facility] Chloride [Moles/Vol] 105 mmol/L 98 - 10 7 mmol/L [facility] CO2 [Moles/Vol] 21 mmol/L Low 22 - 30 mmol/L [facility] Creatinine [Mass/Vol] 1.55 mg/dL High 0.73 - 1.22 mg/dL [facility] GFR/1.73 sq M.predicted among non-blacks MDRD (S/P/Bld) [Vol rate/Area] 44 mL/min/{1.73_m2} Low - PINF [facility] Comment on above: Estimated Glomerular Filtration [...] [Mass/Vol] 98 mg/dL 74 - 99 mg/dL [facility] Comment on above: The [place] Diab[place] s Association (ADA) provides guidance for [...] Standards of Medical Care in Diabetes 2016, [place] [employer]. Diabetes Care. 2016.39(Suppl 1). Interpretation and review of laboratory results Abnormal [facility] Potassium [Moles/Vol] 4.3 mmol/L 3.7 - 5.1 mmol/L [facility] Sodium [Moles/Vol] 139 mmol/L 136 - 144 mmol/L [facility] Urea nitrogen [Mass/Vol] 42 mg/dL High 9 - 24 mg/dL [facility] Basic metabolic 2000 panelon 11-01-2024 Anion gap [Moles/Vol] 13 mmol/L Normal 8-15 [facility] Comment on above: Order Comment: Speci men Type: BLOOD SPECIMENOrdering Facility: [facility] Address: [address] [place] [address] Performed By: #### 2 4321-2 ####[facility] [id number] [place] [address] [place] Calcium [Mass/Vol] 9.0 mg/dL Normal 8.5-10.[address] [facility] Comment on above: Order Comment: Speci men Type: BLOOD SPECIMENOrdering Facility: [facility] Address: [address] [place] [address] Performed By: #### 2 4321-2 ####[facility]ENTERWDARELLLIA [id number] [place] [id number] [place] Chloride [Moles/Vol] 105 mmol/L Normal 98-107 [facility] Comment on above: Order Comment: Speci men Type: BLOOD SPECIMENOrdering Facility: [facility] Address: [address] [place] [address] Performed By: #### 2 4321-2 ####[facility] [id number] [place] [address] [place] CO2 [Moles/Vol] 21 mmol/L Low 22-30 [facility] Comment on above: Order Comment: Speci men Type: BLOOD SPECIMENOrdering Facility: [facility] Address: [address] [place] [address] Performed By: #### 2 4321-2 ####[facility] [id number] [place] [address] [place] Creatinine [Mass/Vol] 1.55 mg/dL High 0.73-1.22 [facility] Comment on above: Order Comment: Speci men Type: BLOOD SPECIMENOrdering Facility: [facility] Address: [address] [place] [address] Performed By: #### 2 4321-2 ####[facility] [id number] [place] [address] [place] Creatinine and Glomerular filtration rate.predicted panel (S/P/Bld) 44 mL/min/1.73m??? Low >=60 [facility] Comment on above: Order Comment: Speci men Type: BLOOD SPECIMENOrdering Facility: [facility] Address: [address] [place] [address] Result Comment: Mary Jo mated Glomerular Filtration [...] actual GFR. Performed By: #### 2 4321-2 ####[place] SHARIMiahNCLIA [id number] [place] [address] [place] Glucose [Mass/Vol] 98 mg/dL Normal 74-[address] [facility] Comment on above: Order Comment: Speci men Type: BLOOD SPECIMENOrdering Facility: [facility] Address: [address] [place] [address] Result Comment: The [place] Diabetes Association (ADA) provides guidance for cutoff [...] Standards of Medical Care in Diabetes 2016, [place] [employer]. Diabetes Care. 2016.39(Suppl 1). Performed By: #### 2 4321-2 ####[facility] [id number] [place] [address] [place] Potassium [Moles/Vol] 4.3 mmol/L Normal 3.7-5.1 [facility] Comment on above: Order Comment: Speci men Type: BLOOD SPECIMENOrdering Facility: [facility] Address: [address] [place] [address] Performed By: #### 2 4321-2 ####[facility] [id number] [place] [address] [place] Sodium [Moles/Vol] 139 mmol/L Normal 136-[address] [facility] Comment on above: Order Comment: Speci men Type: BLOOD SPECIMENOrdering Facility: [facility] Address: [address] [place], [place] [address] Performed By: #### 2 4321-2 ####[place] SHARIWNCLIA [id number] [address] OF [facility] Urea nitrogen [Mass/Vol] 42 mg/dL High 9-24 [facility] Comment on above: Order Comment: Speci men Type: BLOOD SPECIMENOrdering Facility: [facility] Address: [facility] [place] [id number] Performed By: #### 2 4321-2 ####[place] SHARIWNCLIA [id number] [place] [address] 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 [Z79.*04/11/2015 Episodic lightheadedness [R42] 04/11/2015 01/21/2018 Bilateral edema of lower extremity [R60.0] 04/11/2015 01/10/2016 Venous (peripheral) insufficiency [I87.2] 04/11/2015 History of DVT (deep vein thrombosis) [Z86.718] 02/14/2016 Asymptomatic LV dysfunction [I51.9] 10/28/2016 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 medical*10/28/2016 Change in [...] Status:Closed by TIEN SERRANO on 11/02/24 Normal [facility] CBC W Auto Differential pane l (Bld)on 10-27-2024 Basophils (Bld) [#/Vol] 0.03 10*3/uL Normal <0.11 [facility] Comment on above: Order Comment: Speci men Type: BLOOD SPECIMENOrdering Facility: [facility] Address: [address] [place] [address] Performed By: #### 5 7021-8 ####[facility] [id number] [place] [address] [place] Basophils/100 WBC (Bld) 0.5 % Normal [facility] Comment on above: Order Comment: Speci men Type: BLOOD SPECIMENOrdering Facility: [facility] Address: [address] [place] [address] Performed By: #### 5 7021-8 ####[facility] [id number] [place] [address] [place] Differential cell count method Nom (Bld) Auto Normal [facility] Comment on above: Order Comment: Speci men Type: BLOOD SPECIMENOrdering Facility: [facility] Address: [address] [place] [address] Performed By: #### 5 7021-8 ####[facility] [facility] NORTEDARELLLIA [id number] [place] [address] [place] Eosinophils (Bld) [#/Vol] 0.29 10*3/uL Normal <0.46 [facility] Comment on above: Order Comment: Speci men Type: BLOOD SPECIMENOrdering Facility: [facility] Address: [address] [place] [address] Performed By: #### 5 7021-8 ####[facility] [id number] [place] [address] [place] Eosinophils/100 WBC (Bld) 4.4 % Normal [facility] Comment on above: Order Comment: Speci men Type: BLOOD SPECIMENOrdering Facility: [facility] Address: [address] [place] [address] Performed By: #### 5 7021-8 ####[facility] [id number] [place] [address] [place] Erythrocyte distribution width (RBC) [Ratio] 13.1 % Normal 11.5-15.0 [facility] Comment on above: Order Comment: Speci men Type: BLOOD SPECIMENOrdering Facility: [facility] Address: [address] [place] [address] Performed By: #### 5 7021-8 ####[facility] HOSPITALLIA [id number] [place] [address] [place] Hematocrit (Bld) [Volume fraction] 40.2 % Normal 39.0-51.0 [facility] Comment on above: Order Comment: Speci men Type: BLOOD SPECIMENOrdering Facility: [facility] Address: [address] [place] [address] Performed By: #### 5 7021-8 ####[facility]ITALNCLIA [id number] [place] [address] [place] Hemoglobin (Bld) [Mass/Vol] 13.4 g/dL Normal 13.0-17.0 [facility] Comment on above: Order Comment: Speci men Type: BLOOD SPECIMENOrdering Facility: [facility] Address: [address] [place] [address] Performed By: #### 5 7021-8 ####[facility]OSPITALLIA [id number] [place] [address] [place] Immature granulocytes (Bld) [#/Vol] 10*3/uL Normal <0.10 [facility] Comment on above: Order Comment: Speci men Type: BLOOD SPECIMENOrdering Facility: [facility] Address: [address] [place] [address] Performed By: #### 5 7021-8 ####[facility] [id number] [place] [address] [place] Immature granulocytes/100 WBC (Bld) 0.3 % Normal [facility] Comment on above: Order Comment: Speci men Type: BLOOD SPECIMENOrdering Facility: [facility] Address: [address] [place] [address] Performed By: #### 5 7021-8 ####[facility]OSPITALLIA [id number] [place] [address] [place] Lymphocytes (Bld) [#/Vol] 1.39 10*3/uL Normal 1.00-4.00 [facility] Comment on above: Order Comment: Speci men Type: BLOOD SPECIMENOrdering Facility: [facility] Address: [address] [place] [address] Performed By: #### 5 7021-8 ####[facility]ITALNCLIA [id number] [place] [address] [place] Lymphocytes/100 WBC (Bld) 20.9 % Normal [facility] Comment on above: Order Comment: Speci men Type: BLOOD SPECIMENOrdering Facility: [facility] Address: [address] [place] [address] Performed By: #### 5 7021-8 ####[facility] [id number] [place] [address] [place] MCH (RBC) [Entitic mass] 32.3 pg Normal 26.0-34.0 [facility] Comment on above: Order Comment: Speci men Type: BLOOD SPECIMENOrdering Facility: [facility] Address: [address] [place] [address] Performed By: #### 5 7021-8 ####[facility] [id number] [place] [address] [place] MCHC (RBC) [Mass/Vol] 33.3 g/dL Normal 30.5-36.0 [facility] Comment on above: Order Comment: Speci men Type: BLOOD SPECIMENOrdering Facility: [facility] Address: [address] [place] [address] Performed By: #### 5 7021-8 ####[facility] [id number] [place] [address] [place] MCV (RBC) [Entitic vol] 96.9 fL Normal 80.0-100.0 [facility] Comment on above: Order Comment: Speci men Type: BLOOD SPECIMENOrdering Facility: [facility] Address: [address] [place] [address] Performed By: #### 5 7021-8 ####[facility] [id number] [place] [address] [place] Monocytes (Bld) [#/Vol] 0.62 10*3/uL Normal <0.87 [facility] Comment on above: Order Comment: Speci men Type: BLOOD SPECIMENOrdering Facility: [facility] Address: [address] [place] [address] Performed By: #### 5 7021-8 ####[facility]ILLTOWNCL[facility] [id number] [place] [address] [place] Monocytes/100 WBC (Bld) 9.3 % Normal [facility] Comment on above: Order Comment: Speci men Type: BLOOD SPECIMENOrdering Facility: [facility] Address: [address] [place] [address] Performed By: #### 5 7021-8 ####[facility] MILLTOWNCLIA [id number] [place] [address] [place] Neutrophils (Bld) [#/Vol] 4.30 10*3/uL Normal 1.45-7.50 [facility] Comment on above: Order Comment: Speci men Type: BLOOD SPECIMENOrdering Facility: [facility] Address: [address] [place] [address] Performed By: #### 5 7021-8 ####[facility] CENTERWNCLIA [id number] [place] [address] [place] Neutrophils/100 WBC (Bld) 64.6 % Normal [facility] Comment on above: Order Comment: Speci men Type: BLOOD SPECIMENOrdering Facility: [facility] Address: [address] [place] [address] Performed By: #### 5 7021-8 ####[facility] MILLTOWNCLIA [id number] [place] [address] [place] Nucleated RBC (Bld) [#/Vol] 10*3/uL Normal <0.01 [facility] Comment on above: Order Comment: Speci men Type: BLOOD SPECIMENOrdering Facility: [facility] Address: [address] [place] [address] Performed By: #### 5 7021-8 ####[facility] MILLTOWNCLIA [id number] [place] [address] [place] Nucleated RBC/100 WBC (Bld) [Ratio] 0.0 /100 WBC Normal [facility] Comment on above: Order Comment: Speci men Type: BLOOD SPECIMENOrdering Facility: [facility] Address: [address] [place] [address] Performed By: #### 5 7021-8 ####[facility] [facility] NORTEEUNICE [id number] [place] [address] [place] Platelet mean volume (Bld) [Entitic vol] 9.4 fL Normal 9.0-12.7 [facility] Comment on above: Order Comment: Speci men Type: BLOOD SPECIMENOrdering Facility: [facility] Address: [address] [place] [address] Performed By: #### 5 7021-8 ####[facility] HOSPITALDARELLFay [id number] [place] [address] [place] Platelets (Bld) [#/Vol] 149 10*3/uL Low 150-400 [facility] Comment on above: Order Comment: Speci men Type: BLOOD SPECIMENOrdering Facility: [facility] Address: [address] [place] [address] Performed By: #### 5 7021-8 ####[facility] HOSPITALEUNICE [id number] [place] [address] [place] RBC (Bld) [#/Vol] 4.15 10*6/uL Low 4.20-6.00 [facility] Comment on above: Order Comment: Speci men Type: BLOOD SPECIMENOrdering Facility: [facility] Address: [address] [place] [address] Performed By: #### 5 7021-8 ####[facility] HOSPITALDARELLLIA [id number] [place] [address] [place] WBC (Bld) [#/Vol] 6.65 10*3/uL Normal 3.70-11.00 [facility] Comment on above: Order Comment: Speci men Type: BLOOD SPECIMENOrdering Facility: [facility] Address: [address] [place] [address] Performed By: #### 5 7021-8 ####[facility] [id number] [place] [address] [place] Comprehensive metabolic 2000 panelon 10-27-2024 Albumin [Mass/Vol] 4.2 g/dL Normal 3.9-4.[address] [facility] Comment on above: Order Comment: Speci men Type: BLOOD SPECIMENOrdering Facility: [facility] Address: [address] [place] [address] Performed By: #### 2 4323-8 ####[facility] [id number] [place] [address] [place] ALP [Catalytic activity/Vol] 87 U/L Normal 38-113 [facility] Comment on above: Order Comment: Speci men Type: BLOOD SPECIMENOrdering Facility: [facility] Address: [address] [place] [address] Performed By: #### 2 4323-8 ####[facility] [id number] [address] [place] ALT [Catalytic activity/Vol] 20 U/L Normal 10-54 [facility] Comment on above: Order Comment: Speci men Type: BLOOD SPECIMENOrdering Facility: [facility] Address: [address] [place] [address] Performed By: #### 2 4323-8 ####[facility]ITALNCLIA [id number] [place] [address] [place] Anion gap [Moles/Vol] 12 mmol/L Normal 8-15 [facility] Comment on above: Order Comment: Speci men Type: BLOOD SPECIMENOrdering Facility: [facility] Address: [address] [place] [address] Performed By: #### 2 4323-8 ####[facility] SHARIJESSICALIA [id number] [place] [address] [place] AST [Catalytic activity/Vol] 19 U/L Normal 14-40 [facility] Comment on above: Order Comment: Speci men Type: BLOOD SPECIMENOrdering Facility: [facility] Address: [address] [place] [address] Performed By: #### 2 4323-8 ####[facility]ITALNCLIA [id number] [place] [address] [place] Bilirubin [Mass/Vol] 0.6 mg/dL Normal 0.2-1.3 [facility] Comment on above: Order Comment: Speci men Type: BLOOD SPECIMENOrdering Facility: [facility] Address: [address] [place] [address] Performed By: #### 2 4323-8 ####[facility] HOSPITALLIA [id number] [place] [address] [place] Calcium [Mass/Vol] 9.2 mg/dL Normal 8.5-10.[address] [facility] Comment on above: Order Comment: Speci men Type: BLOOD SPECIMENOrdering Facility: [facility] Address: [address] [place] [address] Performed By: #### 2 4323-8 ####[facility]ITALNCLIA [id number] [place] [address] [place] Chloride [Moles/Vol] 104 mmol/L Normal 98-107 [facility] Comment on above: Order Comment: Speci men Type: BLOOD SPECIMENOrdering Facility: [facility] Address: [address] [place] [address] Performed By: #### 2 4323-8 ####[facility]ITALNCLIA [id number] [place] [address] [place] CO2 [Moles/Vol] 21 mmol/L Low 22-30 [facility] Comment on above: Order Comment: Speci men Type: BLOOD SPECIMENOrdering Facility: [facility] Address: [address] [place] [address] Performed By: #### 2 4323-8 ####[facility]ITALNCLIA [id number] [place] [address] [place] Creatinine [Mass/Vol] 1.43 mg/dL High 0.73-1.22 [facility] Comment on above: Order Comment: Speci men Type: BLOOD SPECIMENOrdering Facility: [facility] Address: [address] [place] [address] Performed By: #### 2 4323-8 ####[facility]ITALNCLIA [id number] [place] [address] [place] Creatinine and Glomerular filtration rate.predicted panel (S/P/Bld) 49 mL/min/1.73m??? Low >=60 [facility] Comment on above: Order Comment: Speci men Type: BLOOD SPECIMENOrdering Facility: [facility] Address: [address] [place] [address] Result Comment: Mary Jo mated Glomerular Filtration [...] actual GFR. Performed By: #### 2 4323-8 ####[place] SHARIWNCLIA [id number] [place] [address] [place] Glucose [Mass/Vol] 90 mg/dL Normal 74-[address] [facility] Comment on above: Order Comment: Speci men Type: BLOOD SPECIMENOrdering Facility: [facility] Address: [address] [place] [address] Result Comment: The [place] Diabetes Association (ADA) provides guidance for cutoff [...] Standards of Medical Care in Diabetes 2016, [place] [employer]. Diabetes Care. 2016.39(Suppl 1). Performed By: #### 2 4323-8 ####[facility] [id number] [place] [address] [place] Potassium [Moles/Vol] 4.8 mmol/L Normal 3.7-5.1 [facility] Comment on above: Order Comment: Speci men Type: BLOOD SPECIMENOrdering Facility: [facility] Address: [address] [place] [address] Performed By: #### 2 4323-8 ####[facility] [id number] [place] [address] [place] Protein [Mass/Vol] 7.1 g/dL Normal 6.3-8.[address] [facility] Comment on above: Order Comment: Speci men Type: BLOOD SPECIMENOrdering Facility: [facility] Address: [address] [place] [address] Performed By: #### 2 4323-8 ####[facility] [id number] [place] [address] [place] Sodium [Moles/Vol] 137 mmol/L Normal 136-[address] [facility] Comment on above: Order Comment: Speci men Type: BLOOD SPECIMENOrdering Facility: [facility] Address: [address] [place] [address] Performed By: #### 2 4323-8 ####[facility] [id number] [place] [address] [place] Urea nitrogen [Mass/Vol] 37 mg/dL High 9-24 [facility] Comment on above: Order Comment: Speci men Type: BLOOD SPECIMENOrdering Facility: [facility] Address: [address] [place] [address] Performed By: #### 2 4323-8 ####[facility]ITALNC[facility]VI[facility] [id number] [place] [address] [place] HbA1c (Bld)on 10-27-2024 Average glucose Estimated from glycated hemoglobin (Bld) [Mass/Vol] 120 mg/dL Normal [facility] Comment on above: Order Comment: Martha men Type: BLOOD SPECIMENOrdering Facility: [facility] Address: [address] [place] [address] Result Comment: eAG: (Estimated average glucose) is a calculated value from HgbA1c and is technical sales representatives of the average blood glucose level in the last 2-3 month period. Performed By: #### 5 5454-3 ####[facility] LABCLIA [id number] [address] [place] HbA1c (Bld) [Mass fraction] 5.8 % High 4.3-5.6 [facility] Comment on above: Order Comment: Martha murguia Type: BLOOD SPECIMENOrdering Facility: [facility] Address: [address] [place] [address] Result Comment: Amer ican Diabetes Association guidelines indicate that patients with HgbA1c in the range 5.7-6.4% are at increased risk for development of diabetes, and intervention by lifestyle modification may be beneficial. HgbA1c greater or equal to 6.5% is considered diagnostic of diabetes. Performed By: #### 5 5454-3 ####[facility] LABCLIA [id number] [facility] [place] [id number] [address] [place] Lipid 1996 panelon 5 Cholesterol [Mass/Vol] 114 mg/dL Normal <200 [facility] Comment on above: Order Comment: Martha men Type: BLOOD SPECIMENOrdering Facility: [facility] Address: [address] [place] [address] Result Comment: <200 mg/dL, Desirable 200-239 mg/dL, Borderline high >239 mg/dL, High Performed By: #### 2 4331-1 ####[facility] LABCLIA [id number] [facility] [address] [place] [address] [place] [facility] [id number] [place] [address] [place]#### 19099-9 ####[facility] LABCLIA [id number] [address], [facility] [place] Cholesterol in HDL [Mass/Vol] 48 mg/dL Normal >39 [facility] Comment on above: Order Comment: Tristini men Type: BLOOD SPECIMENOrdering Facility: [facility] Address: [address] [place] [address] Result Comment: 40-5 9 mg/dL, Acceptable >59 mg/dL, High: Negative risk factor for coronary heart disease <40 mg/dL, Low: Positive risk factor for coronary heart disease Performed By: #### 2 4331-1 ####[facility] LABCLIA [id number] [facility] [id number], [place] [address] [place] [facility]ICAHCA [facility] [id number] [place] [address] [place]#### 12574-5 ####[facility] LABCLIA [id number] [address] [place] [address] [place] Cholesterol in LDL [Mass/Vol] 50 mg/dL Normal <100 [facility] Comment on above: Order Comment: Speci blade Type: BLOOD SPECIMENOrdering Facility: [facility] Address: [address] [place] [address] Result Comment: <100 mg/dL, Optimal 100-129 mg/dL, Near optimal/above optimal 130-159 mg/dL, Borderline high 160-189 mg/dL, High >189 mg/dL, Very high Secondary prevention optimal LDL Cholesterol levels are recommended to be <70 mg/dL LDL cholesterol is calculated using the Felix-NIH equation. Performed By: #### 2 4331-1 ####[facility] LABCLIA [id number] [place] [id number] [place] [address]#### 86308-6 ####[facility] LABIA [id number] [address] Cholesterol in LDL/Cholesterol in HDL [Mass ratio] 1.04 {ratio} Normal <2.54 [facility] Comment on above: Order Comment: Martha murguia Type: BLOOD SPECIMENOrdering Facility: [facility] Address: [address] [place] [address] Result Comment: Lakhwinder venegas: 1. National Cholesterol Education Program ATP III Guideline At-A-Glance Quick Desk Reference: National Heart, Lung, and Blood Dry [place]ong. National Institutes of Health. 2001: NIH Publication No. 01-3305. 2. An International Atherosclerosis Society position paper: global recommendations for the management of dyslipidemia: executive summary, Atherosclerosis. 2014: 232(2):410-413. Performed By: #### 2 4331-1 ####[facility] LABCLIA [id number] [id number] [place] [address] OF [place]#### 55537-6 ####[facility] LABCLIA [id number] [address] [address] [place] Cholesterol in VLDL [Mass/Vol] 11 mg/dL Normal <30 [facility] Comment on above: Order Comment: Speci men Type: BLOOD SPECIMENOrdering Facility: [facility] Address: [address] [place] [address] Performed By: #### 2 4331-1 ####[facility] LABCLIA [id number] [place] [id number] [place] AMERICAHCA [facility] [id number] [place] [address] [place]#### 91255-1 ####[facility] LABCLIA [id number] [address] [place] Cholesterol non HDL [Mass/Vol] 66 mg/dL Normal <130 [facility] Comment on above: Order Comment: Speci men Type: BLOOD SPECIMENOrdering Facility: [facility] Address: [address] [place] [address] Result Comment: <130 mg/dL, Optimal 130-159 mg/dL, Near optimal/above optimal 160-189 mg/dL, Borderline high 190-219 mg/dL, High >219 mg/dL, Very high Secondary prevention optimal non HDL Cholesterol levels are recommended to be <100 mg/dL Performed By: #### 2 4331-1 ####[facility] LABCLIA [id number] [place] [id number] [place] [facility]ICAHCA [facility] [id number] [place] [address] [place]#### 37302-5 ####[facility] LABCLIA [id number] [place] [id number] [place] Cholesterol.total/Ch olesterol in HDL [Mass ratio] 2.38 {ratio} Normal <5.10 [facility] Comment on above: Order Comment: Speci men Type: BLOOD SPECIMENOrdering Facility: [facility] Address: [address] [place], [place] [address] Performed By: #### 2 4331-1 ####[facility] LABCLIA [id number] [address] [place] [address] [place] [facility] [id number] [place] [address] [place]#### 23296-3 ####[facility] LABCLIA [id number] [address], [facility] [place] FASTING TIME 12 hrs Normal [facility] Comment on above: Order Comment: Speci men Type: BLOOD SPECIMENOrdering Facility: [facility] Address: [address] [place], [place] [address] Performed By: #### 2 4331-1 ####[facility] LABCLIA [id number] [address], [place] [address] [place] [facility] [id number] [place] [address] [place]#### 34809-4 ####[facility] LABCLIA [id number] [address], [facility] [place] Triglyceride [Mass/Vol] 80 mg/dL Normal <150 [facility] Comment on above: Order Comment: Speci men Type: BLOOD SPECIMENOrdering Facility: [facility] Address: [address] [place], [place] [address] Result Comment: <150 mg/dL, Normal 150-199 mg/dL, Borderline high 200-499 mg/dL, High >499 mg/dL, Very high Performed By: #### 2 4331-1 ####[facility] LABCLIA [id number] [address] [place] [address] [place] [facility]ICAH[facility] [id number] [address]#### [address]94[address]-5 ####[facility] [id number] [address] STATES OF [facility] 10-27 Natriuretic peptide.B prohormone N-Terminal [Mass/Vol] 1885 pg/mL High <450 [facility] Comment on above: Order Comment: Speci men Type: BLOOD SPECIMENOrdering Facility: [facility] Address: [address] [place] [address] Performed By: #### 2 4331-1 ####[facility] [id number] [address] STATES OF [facility] [id number] [address] OF [place]#### [address]-7 ####[facility] [id number] [address] OF [facility] 10-20-2024 CNPN Telephone (PHAMTE) -------- WILMER MORLEY ([id number]) 1940 M Date Time Provider Department 10/20/24 JINNY SHAH During your visit today, we recorded the following information about you: Jinny Shah, [facility] 10/20/2024 1:44 PM Signed [facility] Ambulatory Pharmacy Anticoagulation Clinic Anticoagulation Episode Summary Anticoagulation Care Providers Provider Role Specialty Phone number Tien Serrano MD Referring Family Medicine [phone] Wilmer Maxwelley is a 83 year old [...] ALLERGIES No Known Allergies 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 History of dvt (deep vein thrombosis) Anticoagulation Episode Summary Current INR goal: 2.0-3.0 Assessment: INR result of 2.7 is therapeutic Plan: Current Warfarin Dosing As of 10/20/2024 Full warfarin instructions: 7.5 mg every Mon; 5 mg all other days Sent [facility] message Advised patient to continue current weekly dose as noted above Next home INR check scheduled on 11/03/2024 Patient advised to call the PAC with any medication changes, bleeding/bruising concerns, recent changes in vitamin k consumption, if any procedures are coming up, if they have been ill or in the hospital, and if they have missed any doses of warfarin. Jinny Shah [facility] Clinical Pharmacist, Pharmacy Anticoagulation Clinic Pharmacy Anticoagulation Clinic Pager: [phone]. 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 Normal [facility] XR CHEST 2V FRONTAL/LATon XR CHEST 2V [...] thoracic spine. IMPRESSION: No acute radiographic abnormality. Integrity Manager: PSCB Transcribe Date/Time: Oct 12 2024 8:34A Dictated by : CAROLINE SHAVER MD This examination was interpreted and the report reviewed and electronically signed by: CAROLINE SHAVER MD on Oct 12 2024 8:35AM EST [id number] Normal [facility] CNOVon 10-10-2024 CNOV Office Visit (FAMPWS ) -------- WILMER MORLEY ([id number]) 1940 M Date Time Provider Department 10/10/24 7:20 PM TIEN SERRANO During your visit today, we recorded the following information about you: Pulse Blood pressure Weight 60/minute 138/68 93.9 kg Tien Serrano MD 10/10/2024 7:47 PM Signed Patient presents with: Consult: Would like to see pulm. Had testing done in Feb. Breathing has gotten worse but just got back from [facility] HPI: Patient presents today for office visit for follow up. Wintered in [place]. Had elected initially not see pulmonary. 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 Normal [facility] CNPNon 10-10-2024 CNPN Telephone (PHARMN) -------- WILMER MORLEY ([id number]) 1940 M Date Time Provider Department 10/10/24 [...] RPh 10/10/2024 11:07 AM Signed [facility] Ambulatory Pharmacy Anticoagulation Clinic Anticoagulation Episode Summary Anticoagulation Care Providers Provider Role Specialty Phone number Tien Serrano MD Referring Family Medicine [phone] Wilmer Maxwelley is a 83 year old [...] verbalizes understanding of the plan. Namita Gee [facility] Clinical Pharmacist, Pharmacy Anticoagulation Clinic Pharmacy Anticoagulation Clinic Pager: [phone]. Allergies As of Date: 10/10/2024 (No Known [...] Paroxysmal atrial fibrillation (HCC) [I48.0] 03/19/2015 04/11/2015 shelter (current) use of anticoagulants [Z79.*04/11/2015 Episodic lightheadedness [R42] 04/11/2015 01/21/2018 Bilateral edema of lower extremity [R60.0] 04/11/2015 01/10/2016 Venous (peripheral) insufficiency [I87.2] 04/11/2015 History of DVT (deep vein thrombosis) [Z86.718] 02/14/2016 Asymptomatic LV dysfunction [I51.9] 10/28/2016 shelter current use of antiarrhythmic medical*10/28/2016 Change in bowel movement [R19.8] 01/21/2018 03/14/2021 Stage 3a chronic kidney disease (HCC) [N18.31] 04/08/2018 Hyperglycemia [R73.9] 03/14/2021 Hypertensive kidney disease with stage 3a chron*11/06/2021 10/31/2022 Hx of skin cancer, basal cell [Z85.828] 11/08/2021 Lightheaded [R42] 02/02/2024 Benign paroxysmal positional vertigo of right e*02/02/2024 Chronic obstructive pulmonary disease (HCC) [J4*02/12/2024 Encounter Status:Closed by NAMITA GEE on 10/10/24 Normal [facility] Chris 09-22-2024 CNPN Telephone (PHAMTE) -------- MILLIWILMER SHARMA ([id number]) 1940 M Date Time Provider Department 09/22/24 JINNY SHAH During your visit today, we recorded the following information about you: Jinny Shah, [facility] 09/22/2024 2:00 PM Signed [facility] Ambulatory Pharmacy Anticoagulation Clinic Anticoagulation Episode Summary Anticoagulation Care Providers Provider Role Specialty Phone number Tien Serrano MD Referring Family Medicine [phone] Wilmer Morley is a 83 year old [...] ALLERGIES No Known Allergies 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: shelter (current) use of anticoagulants History of dvt (deep vein thrombosis) Anticoagulation Episode Summary Current INR goal: 2.0-3.0 Assessment: INR result of 2.7 is therapeutic Plan: Current Warfarin Dosing As of 09/22/2024 Full warfarin instructions: 7.5 mg every Mon; 5 mg all other days Sent [facility] message Advised patient to continue current weekly dose as noted above Next home INR check scheduled on 10/06/2024 Patient advised to call the PAC with any medication changes, bleeding/bruising concerns, recent changes in vitamin k consumption, if any procedures are coming up, if they have been ill or in the hospital, and if they have missed any doses of warfarin. Jinny Shah [facility] Clinical Pharmacist, Pharmacy Anticoagulation Clinic Pharmacy Anticoagulation Clinic Pager: [phone]. Jinny Shah [facility] 10/06/2024 3:56 PM Signed Patient was due [...] Fu [148] Cmt: Home INR Primary Visit Diagnosis:shelter (current) use of anticoagulants [Z79.01] Other Visit [...] Paroxysmal atrial fibrillation (HCC) [I48.0] 03/19/2015 04/11/2015 shelter (current) use of anticoagulants [Z79.*04/11/2015 Episodic lightheadedness [R42] 04/11/2015 01/21/2018 Bilateral edema of lower ext (more content not included)... Normal [facility] CNPNon 09-06-2024 CNPN Telephone (PHAMTE) -------- MILLIWILMER ([id number]) 1940 M Date Time Provider Department 09/06/24 RAABELLA LOPEZ PHAMTE During your visit today, we recorded the following information about you: Arabella Lopez [facility] 09/06/2024 1:41 PM Signed [facility] Ambulatory Pharmacy Anticoagulation Clinic Anticoagulation Episode Summary Anticoagulation Care Providers Provider Role Specialty Phone number Tien Serrano MD Referring Family Medicine [phone] Wilmer Dian Morley is a 83 year [...] Mon; 5 mg all other days Sent [facility] message Advised patient to continue current weekly [...] Pharmacy Anticoagulation Clinic Pharmacy Anticoagulation Clinic Pager: [phone]. 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 Normal [facility] -------- WILMER MORLEY ([id number]) 1940 M Date Time Provider Department 08/17/24 GHAZAL BAILEY During your visit today, we recorded the following information about you: Ghazal Bailey [facility] 08/17/2024 8:07 AM Signed [facility] Ambulatory Pharmacy Anticoagulation Clinic Anticoagulation Episode Summary Anticoagulation Care Providers Provider Role Specialty Phone number Tien Serrano MD Referring Family Medicine [phone] Wilmer Morley is a 83 year old [...] ALLERGIES No Known Allergies 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 Atrial fibrillation, unspecified type (hcc) History of dvt (deep vein thrombosis) Anticoagulation Episode Summary Current INR goal: 2.0-3.0 Assessment: INR result of 2.0 is therapeutic Plan: Current Warfarin Dosing As of 08/17/2024 Full warfarin instructions: 7.5 mg every Mon; 5 mg all other days Sent [facility] message Advised patient to continue current weekly dose as noted above Next home INR check scheduled on 08/31/2024 Patient advised to call the PAC with any medication changes, bleeding/bruising concerns, recent changes in vitamin k consumption, if any procedures are coming up, if they have been ill or in the hospital, and if they have missed any doses of warfarin. Ghazal Bailey [facility] Clinical Pharmacist, Pharmacy Anticoagulation Clinic Pharmacy Anticoagulation Clinic Pager: [phone]. 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 Normal [facility] Chris 08-02-2024 ARMANI Telephone ([facility]) -------- WILMER MORLEY ([id number]) 1940 M Date Time Provider Department 08/02/24 ARABELLA LOPEZ During your visit today, we recorded the following information about you: Arabella Lopez [facility] 08/02/2024 5:09 PM Signed [facility] Ambulatory Pharmacy Anticoagulation Clinic Anticoagulation Episode Summary Anticoagulation Care Providers Provider Role Specialty Phone number Tien Serrano MD Referring Family Medicine [phone] Wilmer Morley is a 83 year old [...] Mon; 5 mg all other days Sent [employer] message Advised patient to continue current weekly [...] Pharmacy Anticoagulation Clinic Pharmacy Anticoagulation Clinic Pager: [phone]. 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 Normal [facility] Chris 07-15-2024 SHIREENN Telephone ([employer]) -------- WILMER MORLEY ([id number]) 1940 M Date Time Provider Department 07/15/24 ARABELLA LOPEZ During your visit today, we recorded the following information about you: Arabella Lopez [facility] 07/15/2024 4:28 PM Signed [facility] Ambulatory Pharmacy Anticoagulation Clinic Anticoagulation Episode Summary Anticoagulation Care Providers Provider Role Specialty Phone number Tien Serrano MD Referring Family Medicine [phone] Wilmer Morley is a 83 year old [...] missed any doses of warfarin. Arabella Lopez [facility] Clinical Pharmacist, Pharmacy Anticoagulation Clinic Pharmacy Anticoagulation Clinic Pager: [phone]. 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 [facility] -------- WILMER MORLEY ([id number]) 1940 M Date Time Provider Department 06/29/24 GHAZAL BAILEY During your visit today, we recorded the following information about you: Ghazal Bailey RPh 06/29/2024 2:48 PM Signed [facility] Ambulatory Pharmacy Anticoagulation Clinic Anticoagulation Episode Summary Anticoagulation Care Providers Provider Role Specialty Phone number Tien Serrano MD Referring Family Medicine [phone] Wilmer Morley is a 83 year old [...] ALLERGIES No Known Allergies 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: shelter (current) use of anticoagulants Atrial fibrillation, unspecified [...] Pharmacy Anticoagulation Clinic Pharmacy Anticoagulation Clinic Pager: [phone]. 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 [facility] -------- WILMER MORLEY ([id number]) 1940 M Date Time Provider Department 06/14/24 ARABELLA LOPEZ During your visit today, we recorded the following information about you: Arabella Lopez RPh 06/14/2024 2:04 PM Signed [facility] Ambulatory Pharmacy Anticoagulation Clinic Anticoagulation Episode Summary Anticoagulation Care Providers Provider Role Specialty Phone number Tien Serrano MD Referring Family Medicine [phone] Wilmer Johnsonaffey is a 83 year old [...] Pharmacy Anticoagulation Clinic Pharmacy Anticoagulation Clinic Pager: [phone]. Arabella Lopez RPh 06/28/2024 12:05 PM Signed [...] Paroxysmal atrial fibrillation (HCC) [I48.0] 03/19/2015 04/11/2015 shelter (current) use of anticoagulants [Z79.*04/11/2015 Episodic lightheadedness [R42] 04/11/2015 01/21/2018 Bilateral edema of lower extremity [R60.0] 04/11/2015 01/10/2016 Venous (peripheral) insufficiency [I87.2] 04/11/2015 History of DVT (deep vein thrombosis) [Z86.718] 02/14/2016 Asymptomatic LV dysfunction [I51.9] (more content not included)... Normal [facility] 05-24-2024 CNPN Telephone (PHAMTE) -------- WILMER MORLEY ([id number]) 1940 M Date Time Provider Department 05/24/24 ARABELLA LOPEZ During your visit today, we recorded the following information about you: Arabella Lopez [facility] 05/24/2024 8:37 AM Signed [facility] Ambulatory Pharmacy Anticoagulation Clinic Anticoagulation Episode Summary Anticoagulation Care Providers Provider Role Specialty Phone number Tien Serrano MD Referring Family Medicine [phone] Wilmer Maxwelley is a 83 year old [...] Pharmacy Anticoagulation Clinic Pharmacy Anticoagulation Clinic Pager: [phone]. Arabella Lopez RPh 06/14/2024 11:01 AM Signed [...] Paroxysmal atrial fibrillation (HCC) [I48.0] 03/19/2015 04/11/2015 shelter (current) use of anticoagulants [Z79.*04/11/2015 Episodic lightheadedness [R42] 04/11/2015 01/21/2018 Bilateral edema of lower extremity [R60.0] 04/11/2015 01/10/2016 Venous (peripheral) insufficiency [I87.2] 04/11/2015 History of DVT (deep vein thrombosis) [Z86.718] 02/14/2016 Asymptomatic LV dysfunction [I51.9] 10/28/2016 (more content not included)... Normal [facility] CNPNon 05-09-2024 CNPN Telephone (ELIZABETHMTE) -------- WILMER MORLEY ([id number]) 1940 M Date Time Provider Department 05/09/24 NAMITA GEE During your visit today, we recorded the following information about you: Namita Gee RPh 05/09/2024 7:07 AM Signed [facility] Ambulatory Pharmacy Anticoagulation Clinic Anticoagulation Episode Summary Anticoagulation Care Providers Provider Role Specialty Phone number Tien Serrano MD Referring Family Medicine [phone] Wilmer Johnsonaffey is a 83 year old [...] Fri; 5 mg all other days Sent [facility] message Advised patient to continue current weekly dose as noted above Next INR check due on 05/23/2024 Namita Gee [facility] Clinical Pharmacist, Pharmacy Anticoagulation Clinic Pharmacy Anticoagulation Clinic Pager: [phone]. 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 medical*10/28/2016 Change in bowel movement [R19.8] 01/21/2018 03/14/2021 Stage 3a chronic kidney disease (HCC) [N18.31] 04/08/2018 Hyperglycemia [R73.9] 03/14/2021 Hypertensive kidney disease with stage 3a chron*11/06/2021 10/31/2022 Hx of skin cancer, basal cell [Z85.828] 11/08/2021 Lightheaded [R42] 02/02/2024 Benign paroxysmal positional vertigo of right e*02/02/2024 Chronic obstructive pulmonary disease (HCC) [J4*02/12/2024 Encounter Status:Closed by NAMITA GEE on 05/09/24 Normal [facility] CNOVon 05-02-2024 CNOV Office Visit (FAMPWS ) -------- WILMER MORLEY ([id number]) 1940 M Date Time Provider Department 05/02/24 3:20 PM [facility]EN [facility]O [facility] During your visit today, we recorded the [...] discussed can be a normal finding. 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 [...] FLX DX W/COLLJ SPEC WHEN PFRMD 03/09/2018 [facility]repeat 10 years ESOPHAGOGASTRODUODENOSCO PY TRANSORAL DIAGNOSTIC N/A 08/16/2020 [facility] PAST SURGICAL HISTORY OF 2010 basal cell to right above upper lip FAMILY HISTORY Problem Relation Age of Onset Heart Father CHF Heart Mother CHF Heart Brother [place] - rheumatic fever Cancer Brother gastric Asthma Sister Social History Tobacco Use Smoking status: Former Current packs/day: 0.00 Types: Cigarettes Start date: 02/24/2010 Quit date: 02/24/2011 Years since quittin.1 Smokeless tobacco: Never Substance Use Topics Alcohol use: Yes Alcohol/week: 2 (more content not included)... Normal [facility] Chris 04-20-2024 [facility] Telephone (LEANNE) -------- WILMER MORLEY ([id number]) 1940 M Date Time Provider Department 04/20/24 GHAZAL BAILEY During your visit today, we recorded the following information about you: Ghazal Bailey RPh 04/20/2024 2:24 PM Signed [facility] Ambulatory Pharmacy Anticoagulation Clinic Anticoagulation Episode Summary Anticoagulation Care Providers Provider Role Specialty Phone number Tien Serrano MD Referring Family Medicine [phone] Wilmer Morley is a 83 year old [...] ALLERGIES No Known Allergies 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: shelter (current) use of anticoagulants Atrial fibrillation, unspecified type (hcc) History of dvt (deep vein thrombosis) Anticoagulation Episode Summary Current INR goal: 2.0-3.0 Assessment: INR result of 2.0 is therapeutic Plan: Current Warfarin Dosing As of 04/20/2024 Full warfarin instructions: 7.5 mg every Mon, Fri; 5 mg all other days Sent [facility] message Advised patient to continue current weekly dose as noted above Next home INR check scheduled on 05/04/2024 Patient advised to call the PAC with any medication changes, bleeding/bruising concerns, recent changes in vitamin k consumption, if any procedures are coming up, if they have been ill or in the hospital, and if they have missed any doses of warfarin. Ghazal Bailey [facility] Clinical Pharmacist, Pharmacy Anticoagulation Clinic Pharmacy Anticoagulation Clinic Pager: [phone]. Ghazal Bailey RPh 05/04/2024 9:50 AM Signed Patient was due to test INR today will continue to monitor for results. 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 Normal [facility] 03-31-2024 [facility] -------- WILMER MORLEY ([id number]) 1940 M Date Time Provider Department 03/31/24 JINNY SHAH During your visit today, we recorded the following information about you: Jinny Shah [facility] 03/31/2024 5:19 PM Signed [facility] Ambulatory Pharmacy Anticoagulation Clinic Anticoagulation Episode Summary Anticoagulation Care Providers Provider Role Specialty Phone number Tien Serrano MD Referring Family Medicine [phone] Wilmer Morley is a 83 year old [...] ALLERGIES No Known Allergies 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 History of dvt (deep vein thrombosis) Anticoagulation Episode Summary Current INR goal: 2.0-3.0 Assessment: INR result of 2.6 is therapeutic Plan: Current Warfarin Dosing As of 03/31/2024 Full warfarin instructions: 7.5 mg every Mon, Fri; 5 mg all other days Sent [facility] message Advised patient to continue current weekly dose as noted above Next home INR check scheduled on 04/14/2024 Patient advised to call the PAC with any medication changes, bleeding/bruising concerns, recent changes in vitamin k consumption, if any procedures are coming up, if they have been ill or in the hospital, and if they have missed any doses of warfarin. Jinny Shah [facility] Clinical Pharmacist, Pharmacy Anticoagulation Clinic Pharmacy Anticoagulation Clinic Pager: [phone]. Jinny Shah [facility] 04/14/2024 3:19 PM Signed Patient was due to test INR today. Will continue to monitor for results. Follow up in one week if no results received. 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 Normal [facility] CNTHERAPYon 03-30-2024 CNTHERAPY OT/PT/Speech Visit (PTWS) -------- WILMER MORLEY ([id number]) 1940 M Date Time Provider Department 03/30/24 9:45 AM MICHELLE GOMEZ PTMAURY Date Time Provider Department Center 03/30/2024 9:45 AM [id number] GOMEZ PTMAURY Adames Reason for Visit: PT [...] Take 1 tablet by mouth once daily. Acetylene Burner: Therapy (PT/OT/Speech/Resp) ID: [id number] 03/30/2024 10:04 AM Author: MICHELLE GOMEZ Signed by MICHELLE GOMEZ PT on 03/30/2024 at 10:04 AM Document text: Program_ID:[id number] Access Code: [email or web address] URL: [email or web address] Date: 03-30-2024 Prepared By: Michelle Gomez Program Notes Exercises - Tandem Stance - 1-2 x daily - 7 x weekly - 1 sets - 3 reps - Single Leg Stance - 1-2 x daily - 7 x weekly - 1 sets - 3 reps - Single Leg Stance - 1-2 x daily - 7 x weekly - 1 sets - 3 reps Normal [facility] THERAPY NTon 03-30-2024 THERAPY NT HNO ID: [id number] Author: MICHELLE GOMEZ PT Service: ? Author Type: Physical Therapist Type: Therapy (PT/OT/Speech/Resp) Filed: 03/30/2024 10:04 Note Text: Program_ID:[id number] Access Code: [email or web address] URL: [email or web address] Date: 03-30-2024 Prepared By: Michelle Gomez Program Notes Exercises - Tandem Stance - 1-2 x daily - 7 x weekly - 1 sets - 3 reps - Single Leg Stance - 1-2 x daily - 7 x weekly - 1 sets - 3 reps - Single Leg Stance - 1-2 x daily - 7 x weekly - 1 sets - 3 reps Normal [facility] CNOVon 03-23-2024 [facility]OV [facility] -------- MILLIWILMER Dian ([id number]) 1940 M Date Time Provider Department 03/23/24 4:00 PM [facility] During your visit today, we recorded the following information about you: Pulse Respiration Blood pressure 54/minute 16/minute 142/70 Katy Galdamez APRN.FOLDER OPERATOR 03/23/2024 5:15 PM Signed This is a [...] years ESOPHAGOGASTRODUODENOSCO PY TRANSORAL DIAGNOSTIC N/A 08/16/2020 [facility] H[facility] 2010 basal [...] Father CHF Heart Mother CHF Heart Brother [place] - rheumatic fever Cancer Brother gastric Asthma [...] before exe (more content not included)... Normal [facility] [id number] 03-16-2024 [id number] HNO ID: [id number] Author: MICHELLE GOMEZ PT Service: ? Author Type: Physical Therapist Type: [id number] Filed: 03/16/2024 11:05 Note Text: [facility] Therapy Physical Therapy Plan of Care Certification Patient Name: Wilmer Morley : 1940 [facility] #: [id number] Date: 03/16/2024 To: Tien Serrano MD From Therapist: Michelle Gomez PT RE: Patient Certification/ Recertification Your review, approval and electronic signature are required in order to comply with Payor: T MEDICARE / Plan: [employer] MEDICARE PPO / Product Type: PPO / [...] Patient to be seen for Therapeutic exercise (99787), Neuromuscular re-education (22504), Manual therapy (98878), Self-chcf management (68534), Gait Training (06825), Therapeutic activities (20366) PLAN FOR NEXT VISIT: DC For further details regarding this patient refer to the Physical Therapy electronically documented visit dated 03/16/2024. Provider Attestation I have reviewed the treatment plan for Wilmer Morley, CCF# [id number] for the period of 03/16/24 -- 04/13/24, established on 03/16/2024. Signature certifies the need for therapy services. Normal [facility] CNPNon 03-16-2024 CNPN Telephone (PHAMTE) -------- WILMER MORLEY ([id number]) 1940 M Date Time Provider Department 03/16/24 BEA ADAN During your visit today, we recorded the following information about you: Bea Adan [facility] 03/16/2024 5:08 PM Signed [facility] Ambulatory Pharmacy Anticoagulation Clinic Anticoagulation Episode Summary Anticoagulation Care Providers Provider Role Specialty Phone number Tien Serrano MD Referring Family Medicine [phone] Wilmer Morley is a 83 year old [...] ALLERGIES No Known Allergies 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: shelter (current) use of anticoagulants Atrial fibrillation, unspecified type (hcc) History of dvt (deep vein thrombosis) Anticoagulation Episode Summary Current INR goal: 2.0-3.0 Assessment: INR result of 2.6 is therapeutic Plan: Current Warfarin Dosing As of 03/16/2024 Full warfarin instructions: 7.5 mg every Mon, Fri; 5 mg all other days Sent [facility] message Advised patient to continue current weekly dose as noted above Next home INR check scheduled on 03/30/2024 Patient advised to call the PAC with any medication changes, bleeding/bruising concerns, recent changes in vitamin k consumption, if any procedures are coming up, if they have been ill or in the hospital, and if they have missed any doses of warfarin. Bea Adan [facility] Clinical Pharmacist, Pharmacy Anticoagulation Clinic Pharmacy Anticoagulation Clinic Pager: [phone]. Ghazal Bailey RPh 03/30/2024 11:05 AM Signed Patient was due to test INR today will continue to monitor for results. 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 Normal [facility] CNTHERAPYon 03-16-2024 CNTHERAPY OT/PT/Speech Visit (PTWS) -------- WILMER MORLYE ([id number]) 1940 M Date Time Provider Department 03/16/24 10:30 AM MICHELLE GOMEZ PTWS Date Time Provider Department [place] 03/16/2024 10:30 AM [id number] GOMEZ PTMAURY Audingo Reason for Visit: PT Progress Note [1596] [...] as needed. Take 1/2 tablet daily Normal [facility] WILMER MORLEY ([id number]) 1940 M Date Time Provider Department 03/03/24 JINNY SHAH During your visit today, we recorded the following information about you: Jinny Shah, [facility] 03/03/2024 7:02 AM Signed [facility] Ambulatory Pharmacy Anticoagulation Clinic Anticoagulation Episode Summary Anticoagulation Care Providers Provider Role Specialty Phone number Tien Serrano MD Referring Family Medicine [phone] Wilmer Maxwelley is a 83 year old [...] ALLERGIES No Known Allergies 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: shelter (current) use of anticoagulants History of dvt (deep vein thrombosis) Anticoagulation Episode Summary Current INR goal: 2.0-3.0 Assessment: INR result of 2.3 is therapeutic Plan: Current Warfarin Dosing As of 03/03/2024 Full warfarin instructions: 7.5 mg every Mon, Fri; 5 mg all other days Sent [facility] message Advised patient to continue current weekly dose as noted above Next home INR check scheduled on 03/16/2024 Jinny Shah [facility] Clinical Pharmacist, Pharmacy Anticoagulation Clinic Pharmacy Anticoagulation Clinic Pager: [phone]. Allergies As of Date: 03/03/2024 (No Known Allergies) Date Reviewed: 02/11/2024 Reviewed by: Bhavya Montaño RPFT - Fully Assessed Reason for Visit: Anticoagulation Telephone Fu [148] Cmt: Home INR Primary Visit Diagnosis:shelter (current) use of anticoagulants [Z79.01] Other Visit [...] Paroxysmal atrial fibrillation (HCC) [I48.0] 03/19/2015 04/11/2015 shelter (current) use of anticoagulants [Z79.*04/11/2015 Episodic lightheadedness [R42] 04/11/2015 01/21/2018 Bilateral edema of lower extremity [R60.0] 04/11/2015 01/10/2016 Venous (peripheral) insufficiency [I87.2] 04/11/2015 History of DVT (deep vein thrombosis) [Z86.718] 02/14/2016 Asymptomatic LV dysfunction [I51.9] 10/28/2016 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 medical*10/28/2016 Change in bowel movement [R19.8] 01/21/2018 03/14/2021 Stage 3a chronic kidney disease (HCC) [N18.31] 04/08/2018 Hyperglycemia [R73.9] 03/14/2021 Hypertensive kidney disease with stage 3a chron*11/06/2021 10/31/2022 Hx of skin cancer, basal cell [Z85.828] 11/08/2021 Lightheaded [R42] 02/02/2024 Benign paroxysmal positional vertigo of right e*02/02/2024 Chronic obstructive pulmonary disease (HCC) [J4*02/12/2024 Encounter Status:Closed by JINNY SHAH on 03/03/24 [facility] CNTHERAPYon 02-29-2024 CNTHERAPY OT/PT/Speech Visit (PTWS) -------- WILMER MORLEY ([id number]) 1940 M Date Time Provider Department 02/29/24 12:30 PM MICHELLE GOMEZ PTWS Date Time Provider Department [place] 02/29/2024 12:30 PM [id number] GOMEZ Reason for Visit: Physical Therapy [503] [...] as needed. Take 1/2 tablet daily Normal [facility] No Panel Informationon 02-10 [facility] [address] [place] [address] Test Date: 2024-02-11 Pat Name: WILMER MORLEY Department: Room: Gender: Male Brand Strategist: : 1940 Requested By: Order Number: [id number] Reading MD: Lia Griffin MD Interpretive Statements [...] 15:03:07 EDT by Lia Griffin MD ID: [id number] Name: WILMER MORLEY Race: White Ht: 70.00 [...] 0.32 81 FIVC (L) 2.55 3.29 28 NCK52-49 (L/sec) 0.51 0.72 1.95 3.80 26 1.06 [...] repeated trials. PULMONARY FUNCTION LAB [facility] SPIROMETRY WITH DILATOR IF O BSTRUCTEDon 02-11-2024 ERV BOX (L) 0.62 L [facility] ERV PREDICTED (L) 1.25 L/S [facility] FEF25% POST (L/S) 2.53 L/S [facility] FEF25% PRE (L/S) 1.42 L/S [facility] d [facility] KUB68-65% LLN (L/S) 0.72 L/S [facility] QBT90-20% POST (L/S) 1.06 L/S [facility] CKC47-32% PRE (L/S) 0.51 L/S [facility] NOP17-20% PREDICTED (L/S) 1.95 L/S [facility] FEF75% LLN (L/S) 0.16 L/S [facility] FEF75% POST (L/S) 0.49 L/S [facility] FEF75% PRE (L/S0 0.22 L/S [facility] FEF75% PREDICTED (L/S) 0.47 L/S [facility] FEF75% ULN (L/S) 1.38 L/S [facility] FET POST (S) 12.38 S [facility] FET PRE (S) 12.16 S [facility] FEV1 LLN (L) 1.97 L [facility] FEV1 PRE (L) 1.41 L [facility] FEV1 PREDICTED (L) 2.74 L [facility] FEV1 ULN (L) 3.46 L [facility] FEV1/FVC LLN (%) 61 % [facility] FEV1/FVC POST (%) 48 % [facility] FEV1/FVC PRE (%) 48 % [facility] FEV1/FVC PREDICTED (%) 75 % [facility] FEV1_POST (L) 1.81 L [facility] FRC Box (L) 8.33 L [facility] FVC LLN (L) 2.76 L [facility] FVC POST (L) 3.80 L [facility] FVC PRE (L) 2.95 L [facility] FVC PREDICTED (L) 3.75 L [facility] FVC ULN (L) 4.76 L [facility] IC BOX (L) 2.37 L [facility] IC PREDICTED (L) 2.50 L/S [facility] PEF LLN (L/S) 4.65 L/S [facility] PEF POST (L/S) 4.03 L/S [facility] PEF PRE (L/S) 3.85 L/S [facility] PEF ULN (L/S) 9.28 L/S [facility] RV Box (L) 7.78 L [facility] RV Box PREDICTED (L) 2.70 L [facility] RV/TLC Box (%) 73 % [facility] RV/TLC Box PREDICTED (%) 39 % [facility] SVC LLN (L) 2.76 L/S [facility] SVC PREDICTED (L) 3.75 L/S [facility] SVC ULN (L) 4.76 L/S [facility] TLC Box (L) 10.69 L [facility] TLC Box PREDICTED (L) 7.06 L [facility] VC (L) BOX 3.06 L [facility] XR Chest PA and Lateralon IMPRESSION: No acute radiographic abnormality. Integrity Manager: PSCB Transcribe Date/Time: Feb 10 2024 2:59P Dictated by : AMENA GRACE MD This examination was interpreted and the report reviewed and electronically signed by: AMENA GRACE MD on Feb 10 2024 2:59PM [facility] DIVISION OF RADIOLOGY * * *Final Report* [...] in the spine. DIVISION OF RADIOLOGY Provider, [facility] - 02/10/2024 * * *Final Report* * [...] spine. IMPRESSION IMPRESSION: No acute radiographic abnormality. Integrity Manager: CRYSTAL Transcribe Date/Time: Feb 10 2024 2:59P Dictated by : AMENA GRACE MD This examination was interpreted and the report reviewed and electronically signed by: AMENA GRACE MD on Feb 10 2024 2:59PM EST [facility] Radiology Study observation (narrative) [facility] XR Chest PA and LateralOrder ed By: Ccf Provider on 02-10-2024 [facility] Cardiac echo study Procedure stress methodon [...] HR: 58 bpm Max Heart Rate (APMHR): 139.111707 bpm Max HR Achieved: 131 bpm Target HR (85% APMHR): 118.807443 bpm % of APMHR: 94.24 Recovery HR: [...] Resting HR: 58 bpmMax Heart Rate (APMHR): 139.022265 bpm Max HR Achieved: 131 bpmTarget HR (85% APMHR): 118.708549 bpm % of APMHR: 94.24 Recovery HR: [...] Age: Average Scale: Active Angina Score: None [facility] Radiology Study observation (narrative) [facility] Basic metabolic 2000 panelon 06-05-2024 Anion gap [Moles/Vol] 10 mmol/L 8 - 15 mmol/L [facility] Calcium [Mass/Vol] 9.6 mg/dL 8.5 - 10. 2 mg/dL [facility] Chloride [Moles/Vol] 104 mmol/L 98 - 10 7 mmol/L [facility] CO2 [Moles/Vol] 25 mmol/L 22 - 30 mmol/L [facility] Creatinine [Mass/Vol] 1.23 mg/dL High 0.73 - 1.22 mg/dL [facility] GFR/1.73 sq M.predicted among non-blacks MDRD (S/P/Bld) [Vol rate/Area] 59 mL/min/{1.73_m2} Low - PINF [facility] Comment on above: Estimated Glomerular Filtration [...] 153 mg/dL High 74 - 99 mg/dL [facility] Comment on above: The [place] [employer] Association (ADA) provides guidance for [...] Standards of Medical Care in Diabetes 2016, [place] [employer]. Diabetes Care. 2016.39(Suppl 1). Interpretation and review of laboratory results Abnormal [facility] Potassium [Moles/Vol] 4.5 mmol/L 3.7 - 5.1 mmol/L [facility] Sodium [Moles/Vol] 139 mmol/L 136 - 144 mmol/L [facility] Urea nitrogen [Mass/Vol] 29 mg/dL High 9 - 24 mg/dL [facility] Cardiac echo study Procedure on 04-22-2023 APPR [...] cm2 MR Vmax 5.19 m/s MV Dec [place] 318.53 cm/s2 MV Decel. Time 259.10 (160-240 ms) Pulmonary Valve PV Peak Velocity 1.1 (0.5-1.5 m/s) ME End VMAX 1.9 m/s PV maxPG 4.5 [...] Aortic Root 4.08 cm M: 3.1 - 3.1KEXRD12 mL Aortic Root Index1.9 cm/t3CKBYN246.41 mL M: 62 - 150 Ascending Aorta 3.41 cm M: 2.6 - 3.4LV Volume Index53.50 mL/m2 M: 34 - 74 Ascending Aorta Index: 1.6 cm/m2LA Ybhnqw02.9 mL Left Atrium 4.63 cm M: 3.0 [...] MVA PHT2.68 cm2MR Vmax5.19 m/s MV Dec [place] 318.53 cm/s2MV Decel. Hgjk118.10 (160-240 ms) Pulmonary Valve PV Peak Velocity1.1 (0.5-1.5 m/s)ME End VMAX1.9 m/s PV maxPG4.5 mmHgPV Vmax1.1 m/s Tricuspid Valve TR P. Velocity3.45 m/sRAP Estimate3 mmHg RVSP50.64 mmHgTR maxPG 47.64 mmHg S'0.15 m/s [facility] Radiology Study observation (narrative) [facility] XR CHEST 2V FRONTAL/LATon [facility] XR Chest PA and Lateralon IMPRESSION: No acute radiographic abnormality. Integrity Manager: CRYSTAL Transcribe Date/Time: Apr 29 2022 4:42P [...] soft tissues: Unremarkable. DIVISION OF RADIOLOGY Provider, [facility] - 04/29/2022 * * *Final Report* * [...] Unremarkable. IMPRESSION IMPRESSION: No acute radiographic abnormality. Integrity Manager: PSCB Transcribe Date/Time: Apr 29 2022 4:42P Dictated by : PAUL ARGUETA MD This examination was interpreted and the report reviewed and electronically signed by: PAUL ARGUETA MD on Apr 29 2022 4:43PM EST [facility] Radiology Study observation (narrative) [facility] XR Chest PA and LateralOrder ed By: Ccf Provider on 04-29-2022 [facility] HbA1c (Bld)on 02-04-2022 Average glucose Estimated from glycated hemoglobin (Bld) [Mass/Vol] 120 mg/dL [facility] HbA1c (Bld) [Mass fraction] 5.8 % High 4.3 - 5.6 % [facility] UA DIP, URINE (POC)on 2021 BILIRUBIN UA (POCT) Negative Negative [facility] CLARITY UA (POCT) Clear [facility] COLOR UA (POCT) Yellow [facility] GLUCOSE UA (POCT) Negative Negative mg/dL [facility] HEMOGLOBIN/BLOOD UA (POCT) Trace-intact Abnormal Negative [facility] KETONE UA (POCT) Negative Negative mg/dL [facility] LEUKOCYTES UA (POCT) Negative Negative [facility] NITRITE UA (POCT) Negative Negative [facility] PH UA (POCT) 6.0 4.5 - 8.0 [facility] Protein Ql (U) Negative Negative mg/dL [facility] SPECIFIC GRAVITY UA (POCT) 1.020 1.005 - 1.030 [facility] UROBILINOGEN UA (POCT) 0.2 E.U./dL Normal E.U./dL [facility] SURGICAL PATHOLOGYon 022 Case Report Surgical Pathology Report Case: [id number] Authorizing Provider: Cortney Miranda MD Collected: 01/22/2022 01:53 PM Ordering Location: General Surgery Received: 01/22/2022 02:21 PM Pathologist: Yazmin Browning MD Specimen: SKIN EXCISION, posterior scalp [facility] Clinical History skin lesion [facility] FINAL DIAGNOSIS A. Skin, excision, posterior scalp: - Seborrheic keratosis, irritated and inflamed. MP/HP 01/23/2022 [facility] Gross Description A. SKIN EXCISION Received in formalin is an unoriented elliptical segment of skin and subcutaneous tissue measuring 0.7 x 0.5 x 0.6 cm. The entire skin surface demonstrates an irregular salazar elevated, lobulated area. The marigns are inked black. The specimen is bisected. Totally submitted in one cassette. Gross examination performed at [facility], [address] [place], [place] [id number] FFS 01/23/2022 1:44 AM [facility] Performing Lab Diagnostic interpretation performed at [facility], [address] [place] [address] IA# [id number] Atomic Physics Professor: Alfonso Dugan M.D. [facility] XR Chest PA and Lateralon IMPRESSION: No acute radiographic abnormality. Integrity Manager: CRYSTAL Transcribe Date/Time: Oct 11 2021 11:14A [...] thoracic spine. [id number] E_DIVISION OF RADIOLOGY Provider, [facility] - 10/11/2021 * * *Final Report* * [...] spine. IMPRESSION IMPRESSION: No acute radiographic abnormality. Integrity Manager: PSCB Transcribe Date/Time: Oct 11 2021 11:14A Dictated by : FANNIE SCOTT MD This examination was interpreted and the report reviewed and electronically signed by: FANNIE SCOTT MD on Oct 11 2021 11:14AM EST [facility] XR Chest PA and LateralOrder ed By: Ccf Provider on 10-11-2021 [facility] XR Chest PA and Lateralon Radiology Study observation (narrative) [facility] INR FINGERSTICK B/Oon 2021 INR Coag (Bld) [Relative time] 2.9 {INR} [facility] Quality Check Yes [facility] INR FINGERSTICK B/Oon 2021 INR Coag (Bld) [Relative time] 3.2 {INR} [facility] Quality Check No [facility] ECHOCARDIOGRAMon 11-10-2019 APPR [facility] REPORT Conclusion [...] ms MVA PHT 3.91 cm2 MV Dec [place] 509.07 cm/s2 MV Decel. Time 214.17 (160-240 ms) Pulmonary Valve PV Peak Velocity 1.1 (0.5-1.5 m/s) ME End VMAX 2.4 m/s PV maxPG 5.1 mmHg PV Vmax 1.1 m/s ME End PG 5.21 mmHg Tricuspid Valve TR P. Velocity 3.19 m/s RAP Estimate 3 mmHg RVSP 43.80 mmHg TR maxPG 40.80 mmHg [employer] User, Interfaces - 11/10/2019 12:09 PM EDT [...] Aortic Root 3.76 cm M: 3.1 - 3.8WSIS23 mL Aortic Root Index1.8 cm/m2LV Ccxffy316.64 mL M: 62 - 150 Ascending Aorta [...] Ratio1.29MV PHT56.26 ms MVA PHT3.91 cm2MV Dec [place] 509.07 cm/s2 MV Decel. Raeb199.17 (160-240 ms) Pulmonary Valve PV Peak Velocity1.1 (0.5-1.5 m/s)ME End VMAX2.4 m/s PV maxPG5.1 mmHgPV Vmax1.1 m/s ME End PG 5.21 mmHg Tricuspid Valve TR P. Velocity3.19 m/sRAP Estimate3 mmHg RVSP43.80 mmHgTR maxPG 40.80 mmHg [facility] Vital Signs Date Time Vital Sign Value Performing Clinician Facility 01-17-2025 09:00-0400 Diastolic blood pressure 62 mm[Hg] Michelle Gomez PT [facility] 01-17-2025 09:00-0400 Heart rate 71 /min Michelle Gomez PT [facility] 01-17-2025 09:00-0400 SaO2% (BldA) [Mass fraction] 96 % Michelle Gomez PT [facility] 01-17-2025 09:00-0400 Systolic blood pressure 125 mm[Hg] Michelle Gomez PT [facility] 01-16-2025 15:40-0400 Body height 177.8 cm Iglesia DOE Work Phone: [facility] 01-16-2025 15:40-0400 Body mass index (BMI) [Ratio] 29.5 kg/m2 Iglesia DOE Work Phone: [facility] 01-16-2025 15:40-0400 Body temperature 98.3 [degF] Iglesia DOE Work Phone: [facility] 01-16-2025 15:40-0400 Body weight 93.49 kg Iglesia Lara PA Work Phone: [facility] 01-16-2025 15:40-0400 Diastolic blood pressure 60 mm[Hg] Iglesia Lara PA Work Phone: [facility] 01-16-2025 15:40-0400 Heart rate 100 /min Iglesia Lara PA Work Phone: [facility] 01-16-2025 15:40-0400 Respiratory rate 18 /min Iglesia Lara PA Work Phone: [facility] 01-16-2025 15:40-0400 SaO2% (BldA) [Mass fraction] 96 % Iglesia Lara PA Work Phone: [facility] 01-16-2025 15:40-0400 Systolic blood pressure 110 mm[Hg] Iglesia Lara PA Work Phone: [facility] 12-07-2024 09:01-0400 Body mass index (BMI) [Ratio] 29.7 kg/m2 Tien Serrano MD Work Phone: [facility] 12-07-2024 09:01-0400 Body weight 93.89 kg Tien Serrano MD Work Phone: [facility] 12-07-2024 09:01-0400 Diastolic blood pressure 58 mm[Hg] Tien Serrano MD Work Phone: [facility] 12-07-2024 09:01-0400 Heart rate 49 /min Tien Serrano MD Work Phone: [facility] 12-07-2024 09:01-0400 SaO2% (BldA) [Mass fraction] 98 % Tien Serrano MD Work Phone: [facility] 12-07-2024 09:01-0400 Systolic blood pressure 118 mm[Hg] Tien Serrano MD Work Phone: [facility] 11-14-2024 08:55-0400 Body mass index (BMI) [Ratio] 29.18 kg/m2 Lia Griffin MD Work Phone: [facility] 11-14-2024 08:55-0400 Body weight 92.26 kg Lia Griffin MD Work Phone: [facility] 11-14-2024 08:55-0400 Diastolic blood pressure 74 mm[Hg] Lia Griffin MD Work Phone: [facility] 11-14-2024 08:55-0400 Heart rate 81 /min Lia Griffin MD Work Phone: [facility] 11-14-2024 08:55-0400 Respiratory rate 17 /min Lia Griffin MD Work Phone: [facility] 11-14-2024 08:55-0400 SaO2% (BldA) [Mass fraction] 94 % Lia Griffin MD Work Phone: [facility] 11-14-2024 08:55-0400 Systolic blood pressure 136 mm[Hg] Lia Griffin MD Work Phone: [facility] 11-02-2024 10:22-0400 Body height 177.8 cm Tien Serrano MD Work Phone: [facility] 11-02-2024 10:22-0400 Body mass index (BMI) [Ratio] 29.64 kg/m2 Tien Serrano MD Work Phone: [facility] 11-02-2024 10:22-0400 Body weight 93.71 kg Tien Serrano MD Work Phone: [facility] 11-02-2024 10:22-0400 Diastolic blood pressure 58 mm[Hg] Tien Serrano MD Work Phone: [facility] 11-02-2024 10:22-0400 Heart rate 79 /min Tien Serrano MD Work Phone: [facility] Comment on above: Irregular 11-02-2024 10:22-0400 SaO2% (BldA) [Mass fraction] 95 % Tien Serrano MD Work Phone: [facility] 11-02-2024 10:22-0400 Systolic blood pressure 110 mm[Hg] Tien Serrano MD Work Phone: [facility] 10-10-2024 19:15-0400 Body mass index (BMI) [Ratio] 29.7 kg/m2 Tien Serrano MD Work Phone: [facility] 10-10-2024 19:15-0400 Body weight 93.89 kg Tien Serrano MD Work Phone: [facility] 10-10-2024 19:15-0400 Diastolic blood pressure 68 mm[Hg] Tien Serrano MD Work Phone: [facility] 10-10-2024 19:15-0400 Heart rate 60 /min Tien Serrano MD Work Phone: [facility] 10-10-2024 19:15-0400 SaO2% (BldA) [Mass fraction] 95 % Tien Serrano MD Work Phone: [facility] 10-10-2024 19:15-0400 Systolic blood pressure 138 mm[Hg] Tien Serrano MD Work Phone: [facility] 05-02-2024 15:19-0500 Body mass index (BMI) [Ratio] 31.14 kg/m2 Tien Serrano MD Work Phone: [facility] 05-02-2024 15:19-0500 Body weight 98.43 kg Tien Serrano MD Work Phone: [facility] 05-02-2024 15:19-0500 Diastolic blood pressure 62 mm[Hg] Tien Serrano MD Work Phone: [facility] 05-02-2024 15:19-0500 Heart rate 49 /min Tien Serrano MD Work Phone: [facility] 05-02-2024 15:19-0500 SaO2% (BldA) [Mass fraction] 97 % Tien Serrano MD Work Phone: [facility] 05-02-2024 15:19-0500 Systolic blood pressure 122 mm[Hg] Tien Serrano MD Work Phone: [facility] 03-30-2024 09:00-0400 Diastolic blood pressure 47 mm[Hg] Michelle O'Yash PT [facility] 03-30-2024 09:00-0400 Heart rate 61 /min Michelle O'Yash PT [facility] 03-30-2024 09:00-0400 SaO2% (BldA) [Mass fraction] 95 % Michelle O'Yash PT [facility] 03-30-2024 09:00-0400 Systolic blood pressure 137 mm[Hg] Michelle O'Yash PT [facility] 03-23-2024 15:44-0400 Diastolic blood pressure 70 mm[Hg] Katy Haagen DEHYDROGENATION OPERATOR HEAD.FOLDER OPERATOR Work Phone: [facility] 03-23-2024 15:44-0400 Heart rate 54 /min Katy Haagen DEHYDROGENATION OPERATOR HEAD.FOLDER OPERATOR Work Phone: [facility] 03-23-2024 15:44-0400 Respiratory rate 16 /min Katy Haagen DEHYDROGENATION OPERATOR HEAD.FOLDER OPERATOR Work Phone: [facility] 03-23-2024 15:44-0400 SaO2% (BldA) [Mass fraction] 96 % Katy Galdamez DEHYDROGENATION OPERATOR HEAD.FOLDER OPERATOR Work Phone: [facility] 03-23-2024 15:44-0400 Systolic blood pressure 142 mm[Hg] Katy Rudolph ROBERTN.FOLDER OPERATOR Work Phone: [facility] 02-15-2024 09:00-0400 Diastolic blood pressure 58 mm[Hg] Michelle O'Yash PT [facility] 02-15-2024 09:00-0400 Heart rate 69 /min Michelle O'Yash PT [facility] 02-15-2024 09:00-0400 SaO2% (BldA) [Mass fraction] 98 % Michelle O'Yash PT [facility] 02-15-2024 09:00-0400 Systolic blood pressure 153 mm[Hg] Michelle O'Yash PT [facility] 02-11-2024 13:09-0400 Body height 177.8 cm Pulm Wstr Work Phone: [facility] 02-11-2024 13:09-0400 Body mass index (BMI) [Ratio] 29.99 kg/m2 Pulm Wstr Work Phone: [facility] 02-11-2024 13:09-0400 Body weight 94.8 kg Pulm Wstr Work Phone: [facility] 02-11-2024 13:09-0400 Diastolic blood pressure 57 mm[Hg] Pulm Wstr Work Phone: [facility] 02-11-2024 13:09-0400 Heart rate 66 /min Pulm Wstr Work Phone: [facility] 02-11-2024 13:09-0400 Respiratory rate 14 /min Pulm Wstr Work Phone: [facility] 02-11-2024 13:09-0400 SaO2% (BldA) [Mass fraction] 96 % Pulm Wstr Work Phone: [facility] 02-11-2024 13:09-0400 Systolic blood pressure 149 mm[Hg] Pulm Wstr Work Phone: [facility] 02-10-2024 11:23-0400 Body height 180.3 cm Tien Serrano MD Work Phone: [facility] 02-10-2024 11:23-0400 Body mass index (BMI) [Ratio] 29.15 kg/m2 Tien Serrano MD Work Phone: [facility] 02-10-2024 11:23-0400 Body weight 94.8 kg Tien Serrano MD Work Phone: [facility] 02-10-2024 11:23-0400 Diastolic blood pressure 56 mm[Hg] Tien Serrano MD Work Phone: [facility] 02-10-2024 11:23-0400 Heart rate 72 /min Tien Serrano MD Work Phone: [facility] 02-10-2024 11:23-0400 SaO2% (BldA) [Mass fraction] 96 % Tien Serrano MD Work Phone: [facility] 02-10-2024 11:23-0400 Systolic blood pressure 144 mm[Hg] Tien Serrano MD Work Phone: [facility] 12-29-2023 15:33-0400 Body height 180.3 cm Tien Serrano MD Work Phone: [facility] 12-29-2023 15:33-0400 Body mass index (BMI) [Ratio] 29.71 kg/m2 Tien Serrano MD Work Phone: [facility] 12-29-2023 15:33-0400 Body weight 96.62 kg Tien Serrano MD Work Phone: [facility] 12-29-2023 15:33-0400 Diastolic blood pressure 54 mm[Hg] Tien Serrano MD Work Phone: [facility] 12-29-2023 15:33-0400 Heart rate 64 /min Tien Serrano MD Work Phone: [facility] 12-29-2023 15:33-0400 SaO2% (BldA) [Mass fraction] 96 % Tien Serrano MD Work Phone: [facility] 12-29-2023 15:33-0400 Systolic blood pressure 128 mm[Hg] Tien Serrano MD Work Phone: [facility] 11-11-2023 09:38-0400 Body height 180.3 cm Tien Serrano MD Work Phone: [facility] 11-11-2023 09:38-0400 Body mass index (BMI) [Ratio] 29.01 kg/m2 Tien Serrano MD Work Phone: [facility] 11-11-2023 09:38-0400 Body weight 94.35 kg Tien Serrano MD Work Phone: [facility] 11-11-2023 09:38-0400 Diastolic blood pressure 68 mm[Hg] Tien Serrano MD Work Phone: [facility] 11-11-2023 09:38-0400 Heart rate 76 /min Tien Serrano MD Work Phone: [facility] 11-11-2023 09:38-0400 Systolic blood pressure 178 mm[Hg] Tien Serrano MD Work Phone: [facility] 03-27-2023 08:55-0400 Body weight 92.53 kg NA Ruiz PA-C Work Phone: [facility] 03-27-2023 08:55-0400 Diastolic blood pressure 62 mm[Hg] NA Ruiz PA-C Work Phone: [facility] 03-27-2023 08:55-0400 Heart rate 64 /min NA Ruiz PA-C Work Phone: [facility] 03-27-2023 08:55-0400 Respiratory rate 16 /min NA Ruiz PA-C Work Phone: [facility] 03-27-2023 08:55-0400 SaO2% (BldA) [Mass fraction] 95 % NA Ruiz PA-C Work Phone: [facility] 03-27-2023 08:55-0400 Systolic blood pressure 144 mm[Hg] NA Ruiz PA-C Work Phone: [facility] 02-19-2023 13:55-0400 Body weight 94.8 kg NA Ruiz PA-C Work Phone: [facility] 02-19-2023 13:55-0400 Diastolic blood pressure 80 mm[Hg] NA Ruiz PA-C Work Phone: [facility] 02-19-2023 13:55-0400 Heart rate 64 /min NA Ruiz PA-C Work Phone: [facility] 02-19-2023 13:55-0400 Respiratory rate 16 /min NA Ruiz PA-C Work Phone: [facility] 02-19-2023 13:55-0400 SaO2% (BldA) [Mass fraction] 98 % NA Ruiz PA-C Work Phone: [facility] 02-19-2023 13:55-0400 Systolic blood pressure 150 mm[Hg] NA Ruiz PA-C Work Phone: [facility] 11-24-2022 09:19-0400 Diastolic blood pressure 62 mm[Hg] Katy Haagen DEHYDROGENATION OPERATOR HEAD.FOLDER OPERATOR Work Phone: [facility] 11-24-2022 09:19-0400 Heart rate 63 /min Katy Haagen DEHYDROGENATION OPERATOR HEAD.FOLDER OPERATOR Work Phone: [facility] 11-24-2022 09:19-0400 Respiratory rate 16 /min Katy Haagen DEHYDROGENATION OPERATOR HEAD.FOLDER OPERATOR Work Phone: [facility] 11-24-2022 09:19-0400 SaO2% (BldA) [Mass fraction] 96 % Katy Haagen DEHYDROGENATION OPERATOR HEAD.FOLDER OPERATOR Work Phone: [facility] 11-24-2022 09:19-0400 Systolic blood pressure 150 mm[Hg] Katy Haagen DEHYDROGENATION OPERATOR HEAD.FOLDER OPERATOR Work Phone: [facility] 04-29-2022 15:21-0500 Diastolic blood pressure 74 mm[Hg] Tien Serrano MD Work Phone: [facility] 04-29-2022 15:21-0500 Systolic blood pressure 136 mm[Hg] Tien Serrano MD Work Phone: [facility] 04-29-2022 14:46-0500 Body weight 95.25 kg Tien Serrano MD Work Phone: [facility] 04-29-2022 14:46-0500 Heart rate 66 /min Tien Serrano MD Work Phone: [facility] 04-29-2022 14:46-0500 Respiratory rate 16 /min Tien Serrano MD Work Phone: [facility] 04-29-2022 14:46-0500 SaO2% (BldA) [Mass fraction] 95 % Tien Serrano MD Work Phone: [facility] 01-30-2022 10:35-0400 Body height 180.3 cm NA Ruiz PA-C Work Phone: [facility] 01-30-2022 10:35-0400 Body temperature 98.4 [degF] NA Ruiz PA-C Work Phone: [facility] 01-30-2022 10:35-0400 Body weight 93.44 kg NA Ruiz PA-C Work Phone: [facility] 01-30-2022 10:35-0400 Diastolic blood pressure 60 mm[Hg] NA Ruiz PA-C Work Phone: [facility] 01-30-2022 10:35-0400 Heart rate 72 /min NA Ruiz PA-C Work Phone: [facility] 01-30-2022 10:35-0400 SaO2% (BldA) [Mass fraction] 96 % NA Ruiz PA-C Work Phone: [facility] 01-30-2022 10:35-0400 Systolic blood pressure 144 mm[Hg] NA Ruiz PA-C Work Phone: [facility] 01-15-2022 14:57-0400 Body height 180.3 cm Cortney Miranda MD Work Phone: [facility] 01-15-2022 14:57-0400 Body temperature 99.3 [degF] Cortney Miranda MD Work Phone: [facility] 01-15-2022 14:57-0400 Body weight 94.8 kg Cortney Miranda MD Work Phone: [facility] 01-15-2022 14:57-0400 Diastolic blood pressure 70 mm[Hg] Cortney Miranda MD Work Phone: [facility] 01-15-2022 14:57-0400 Heart rate 53 /min Cortney Miranda MD Work Phone: [facility] 01-15-2022 14:57-0400 SaO2% (BldA) [Mass fraction] 95 % Cortney Miranda MD Work Phone: [facility] 01-15-2022 14:57-0400 Systolic blood pressure 149 mm[Hg] Cortney Miranda MD Work Phone: [facility] 11-08-2021 12:00-0400 Diastolic blood pressure 73 mm[Hg] Tien Serrano MD Work Phone: [facility] 11-08-2021 12:00-0400 Heart rate 55 /min Tien Serrano MD Work Phone: [facility] 11-08-2021 12:00-0400 Systolic blood pressure 163 mm[Hg] Tien Serrano MD Work Phone: [facility] 11-08-2021 11:05-0400 Body weight 96.62 kg Tien Serrano MD Work Phone: [facility] 11-11-2018 10:53-0400 BMI (Body Mass Index) 29.99 kg/m2 [email or web address] 11-11-2018 10:53-0400 Body weight 94.8 kg [email or web address] 11-11-2018 10:53-0400 BP Diastolic 64 mm[Hg] [email or web address] 11-11-2018 10:53-0400 BP Systolic 130 mm[Hg] [email or web address] 11-11-2018 10:53-0400 Height 177.8 cm [email or web address] 11-11-2018 10:53-0400 Pulse (Heart Rate) 68 /min [facility] 11-11-2018 10:53-0400 Pulse [facility]xim[facility] 98 % [facility] 11-11-2018 10:53-0400 Respiratory Rate 16 /min [facility] Encounters Encounter Date Encounter Type Care Provider Facility Start: 02-21-2025 End: 02-21-2025 Refill Tien Serrano MD Work Phone: [facility] Comment on above: Refill Request Start: 02-20-2025 End: 02-20-2025 Telephone encounter Namita Antonieta [facility] Comment on above: Anticoagulation Tele phone Fu (Home INR Result ) Start: 02-07-2025 End: 02-07-2025 Telephone encounter Arabella John [facility] Comment on above: Anticoagulation Tele phone Fu (Home INR result) Start: 01-26-2025 End: 01-26-2025 ambulatory TIEN SERRANO Facility:[facility] Start: 01-23-2025 End: 01-23-2025 Telephone encounter Namita Gee [facility] Comment on above: Anticoagulation Tele phone Fu (Home INR Result ) Start: 01-19-2025 End: 01-28-2025 Telephone encounter Tien Serrano MD Work Phone: [facility] Comment on above: Results Start: 01-17-2025 End: 01-17-2025 ambulatory Michelle Gomez PT [facility] Comment on above: Vertigo (Primary Dx) Start: 01-16-2025 End: 01-16-2025 ambulatory Iglesia Lara [facility] Start: 01-16-2025 End: 01-16-2025 Patient encounter procedure Iglesia L[facility] Work Phone: Start: 01-16-2025 End: 01-16-2025 Patient encounter procedure Blayne Davis APRN.[facility] Work Phone: [facility] Comment on above: Visit for suture rem oval (Primary Dx) Start: 01-16-2025 End: 01-16-2025 ambulatory TIEN SERRANO Facility:[facility] Start: 01-10-2025 End: 01-11-2025 ambulatory TIEN SERRANO Facility:[facility] Start: 01-09-2025 End: 01-09-2025 Telephone encounter Namita Gee [facility] Comment on above: Anticoagulation Tele phone Fu (Home INR Result ) Start: 01-05-2025 ambulatory TIEN HEAD [facility] Start: 12-30-2024 End: 01-02-2025 Refill Tien Serrano MD Work Phone: [facility] Comment on above: Refill Request Start: 12-22-2024 End: 12-22-2024 Telephone encounter Jinny Shah [facility] Comment on above: Anticoagulation Tele phone Fu (Home INR) Start: 12-15-2024 End: 02-14-2025 Follow-up encounter Tien Serrano MD Work Phone: Pulmonology [facility] Start: 12-15-2024 End: 12-15-2024 ambulatory TIEN SERRANO Facility:[facility] Start: 12-08-2024 End: 02-07-2025 Follow-up encounter Tien Serrano MD Work Phone: [facility] Start: 12-07-2024 End: 12-07-2024 Telephone encounter Ghazal Bailey [facility] Comment on above: Anticoagulation Tele phone Fu (Home INR result) Start: 12-07-2024 End: 12-07-2024 ambulatory TIEN SERRANO Facility:[facility] Start: 12-07-2024 End: 12-07-2024 Patient encounter procedure Tien Serrano MD Work Phone: [facility] Comment on above: Vertigo (Primary Dx) ; Atrial fibrillation, unspecified type (HCC); Essential hypertension, benign; Chronic obstructive pulmonary disease, unspecified COPD type (HCC); Stage 3a chronic kidney disease (HCC); Hyperglycemia; shelter (current) use of anticoagulants; History of DVT (deep vein thrombosis); Pulmonary HTN (HCC); Congestive heart failure, unspecified HF chronicity, unspecified heart failure type ([facility]); MARY BETH (obstructive sleep apnea) Start: 12-07-2024 End: 12-07-2024 ambulatory TIEN SERRANO Facility:[facility] Start: 11-28-2024 End: 11-28-2024 Refill Tien Serrano MD Work Phone: [facility] Comment on above: Refill Request Start: 11-22-2024 End: 11-22-2024 Telephone encounter Arabella Lopez [facility] Comment on above: Anticoagulation Tele phone Fu (Home INR result) Start: 11-18-[address] [facility] Start: 11-18-2024 End: 11-18-2024 Subsequent hospital visit by physician Tien Head DO Work Phone: [facility] Comment on above: Arrived Start: 11-14-2024 End: 11-14-2024 Patient encounter procedure Lia Griffin MD Work Phone: Pulmonary Medicine Comment on above: COPD, moderate (HCC) (Primary Dx); Former cigarette smoker; Moderate pulmonary hypertension (HCC) Start: 11-14-2024 End: 11-14-2024 ambulatory TIEN SERRANO Facility:[facility] Start: 11-09-[address] Start: 11-08-2024 End: 11-08-2024 Telephone encounter Tien Serrano MD Work Phone: [facility] Comment on above: Results Start: 11-07-2024 End: 11-07-2024 Telephone encounter Namita Gee [facility] Comment on above: Anticoagulation Tele phone Fu (Home INR Result ) Refill Request Start: 11-07-2024 End: 11-07-2024 ambulatory TIEN SERRANO Facility:[facility] Start: 11-02-2024 End: 11-02-2024 Patient encounter [...] of breath) Start: 11-02-2024 End: 11-02-2024 ambulatory [facility] Facility:[facility] Start: 11-01-2024 End: 11-01-2024 ambulatory [facility] Facility:[facility] Start: 10-28-2024 End: 11-02-2024 Telephone encounter Tien Serrano MD Work Phone: [facility] Comment on above: Results Start: 10-27-2024 End: 10-27-2024 ambulatory [facility] Facility:[facility] Start: 10-20-2024 End: 10-20-2024 Telephone encounter Jinny Shah [facility] Comment on above: Anticoagulation Tele phone Fu (Home INR) Start: 10-12-2024 End: 12-12-2024 Follow-up encounter Tien Serrano MD Work Phone: [facility] Start: 10-11-2024 ambulatory [facility] Facility :[facility] Start: 10-11-2024 End: 10-11-2024 Subsequent hospital visit by physician Tyrell [facility] Polanco Work Phone: Radiology Comment on above: SOB (shortness of br eath) [R06.02] Start: 10-10-2024 End: 10-10-2024 Patient encounter procedure Tien Serrano MD Work Phone: [facility] Comment on above: COPD with exacerbati on (HCC) (Primary Dx); Atrial fibrillation, unspecified type (HCC); Essential hypertension, benign; Moderate mitral regurgitation; Moderate tricuspid regurgitation; Chronic obstructive pulmonary disease, unspecified COPD type (HCC); Stage 3a chronic kidney disease (HCC); Hyperglycemia; 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; History of DVT (deep vein thrombosis); shelter 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; SOB (shortness of breath) Start: 10-10-2024 End: 10-10-2024 ambulatory [facility] Start: 10-10-2024 End: 10-10-2024 Telephone encounter [facility] Comment on above: Anticoagulation Start: 10-04-2024 End: 10-04-2024 Refill Tien Serrano MD Work Phone: [facility] [place] Comment on above: Refill Request Start: 09-22-2024 End: 09-22-2024 Telephone encounter Jinny Shah [facility] Comment on above: Anticoagulation Tele phone Fu (Home INR) Start: 09-06-2024 End: 09-06-2024 Telephone encounter Arabella Lopez [facility] Comment on above: Anticoagulation Tele phone Fu (Home INR result) Start: 08-18-2024 End: 08-19-2024 Refill Tien Serrano MD Work Phone: [facility] Comment on above: Refill Request Start: 08-17-2024 End: 08-17-2024 Telephone encounter Ghazal Smithcheko [facility] Comment on above: Anticoagulation Tele phone Fu (Home INR result ) Start: 08-02-2024 End: 08-02-2024 Telephone encounter Arabella John [facility] Comment on above: Anticoagulation Tele phone Fu (Home INR result) Start: 07-15-2024 End: 07-15-2024 Telephone encounter Arabella John [facility] Comment on above: Anticoagulation Tele phone Fu (Home INR result) Start: 06-29-2024 End: 06-29-2024 Telephone encounter Ghazal Smithcheko [facility] Comment on above: Anticoagulation Tele phone Fu (Home INR result ) Start: 06-27-2024 End: 06-27-2024 Refill Tien Serrano MD Work Phone: [facility] [place] Comment on above: Refill Request Start: 06-14-2024 End: 06-14-2024 Telephone encounter Arabella Lopez [facility] Start: 06-09-2024 End: 06-09-2024 Refill Alejandrina Quigley APRN.CNP Work Phone: [facility] Comment on above: Refill Request Start: 05-24-2024 End: 05-24-2024 Telephone encounter Arabella Lopez [facility] Comment on above: Anticoagulation Tele phone Fu (Home INR result) Start: 05-10-2024 ambulatory TIEN HEAD [facility] Start: 05-09-2024 End: 05-09-2024 Telephone encounter Namita Antonieta [facility] Comment on above: Anticoagulation Tele phone Fu (Home INR Result ) Start: 05-02-2024 End: 05-02-2024 Patient encounter procedure Tien Serrano MD Work Phone: [facility] Comment on above: Chronic obstructive pulmonary disease, unspecified COPD type (HCC) (Primary Dx); Atrial fibrillation, unspecified type (HCC); Essential hypertension, benign; Stage 3a chronic kidney disease (HCC); Generalized anxiety disorder; Anxiety; Encounter for immunization; Hyperglycemia Start: 05-02-2024 End: 05-02-2024 ambulatory TIEN SERRANO Facility:[facility] Start: 04-20-2024 End: 04-20-2024 Telephone encounter Ghazal Bailey [facility] Comment on above: Anticoagulation Tele phone Fu (Home INR results ) Start: 04-01-2024 End: 04-01-2024 Refill Tien Serrano MD Work Phone: [facility] Comment on above: Refill Request Start: 03-31-2024 End: 03-31-2024 Telephone encounter Jinny Shah [facility] Comment on above: Anticoagulation Tele phone Fu (Home INR) Start: 03-30-2024 End: 03-30-2024 ambulatory Michelle Gomez PT [facility] Comment on above: Lightheaded (Primary Dx); Benign paroxysmal positional vertigo of right ear Start: 03-23-2024 End: 03-23-2024 Office outpatient visit 25 minutes Ktay Galdamez APRN.CNP Work Phone: [facility] Comment on above: Chronic obstructive pulmonary disease, unspecified COPD type (HCC) (Primary Dx); Irritable bowel syndrome with diarrhea Start: 03-23-2024 End: 03-23-2024 ambulatory KATY GALDAMEZ Facility:[facility] Start: 03-16-2024 End: 03-16-2024 Telephone encounter Bea Adan [facility] Telemanagement Comment on above: Anticoagulation Tele phone Fu (INR Home Test Result) Start: 03-16-2024 End: 03-16-2024 ambulatory Michelle O'Yash PT [facility] Comment on above: Lightheaded (Primary Dx); Benign paroxysmal positional vertigo of right ear Start: 03-03-2024 End: 03-03-2024 Telephone encounter Jinny Shah [facility] Tele[facility] Comment on above: Anticoagulation Tele phone Fu (Home INR) Start: 02-29-2024 End: 02-29-2024 ambulatory Michelle O'Yash PT [facility] Comment on above: Lightheaded (Primary Dx); Benign paroxysmal positional vertigo of right ear Start: 02-18-2024 End: 02-18-2024 Telephone encounter Jinny Shah [facility] Comment on above: Anticoagulation Tele phone Fu (Home INR) Start: 02-15-2024 End: 02-15-2024 ambulatory Michelle O'Yash PT [facility] Comment on above: Lightheaded (Primary Dx); Benign paroxysmal positional vertigo of right ear Start: 02-12-2024 End: 02-12-2024 Telephone encounter Tien Serrano MD Work Phone: [facility] Comment on above: Results Start: 02-11-2024 End: 02-11-2024 ambulatory Pulm Lab [facility] Work Phone: PULM [facility] Comment on above: Spirometry Start: 02-11-2024 End: 02-11-2024 Patient encounter procedure Pulm [facility] Work Phone: [facility] Start: 02-10-2024 End: 02-10-2024 Subsequent hospital visit by physician Xr [facility] [place] Work Phone: Radiology Comment on above: Lightheadedness [R42 ] Start: 02-10-2024 End: 02-10-2024 Patient encounter procedure Tien Serrano MD Work Phone: [facility] Comment on above: SOB (shortness of br eath) (Primary Dx); Lightheadedness; Lightheaded Start: 02-04-2024 End: 02-04-2024 Telephone encounter Jamie Zelayazman [facility] Tele[facility] Comment on above: Anticoagulation Tele phone Fu Start: 02-02-2024 End: 02-02-2024 ambulatory Michelle Gomez PT [place] [facility] Comment on above: Lightheaded (Primary Dx); Benign paroxysmal positional vertigo of right ear Refill Request Start: 01-30-2024 End: 02-01-2024 Get Medical Advice Tien Serrano MD Work Phone: [facility] [place] Comment on above: Refill for flecainid e Start: 01-28-2024 End: 01-29-2024 Refill Tien Serrano MD Work Phone: [facility] Comment on above: Refill Request Start: 01-21-2024 Telephone encounter Jinny adams [facility] Tele[facility] Comment on above: Anticoagulation Tele phone Fu (Home INR) Start: 01-09-2024 Refill Tien Serrano MD Work Phone: [facility] Comment on above: Refill Request Start: 01-05-2024 End: 06-29-2024 Telephone encounter Pharmacist [facility] Comment on above: Patient Update (Note s request) Start: 01-04-2024 Telephone encounter Namita Sanches [facility] Tele[facility] Comment on above: Anticoagulation Tele phone Fu (Home INR Result ) Start: 12-29-2023 End: 12-29-2023 Patient encounter procedure Tien Serrano MD Work Phone: [facility] Comment on above: Lightheaded (Primary Dx); Atrial fibrillation, unspecified type (HCC); Essential hypertension, benign; Moderate mitral regurgitation; Moderate tricuspid regurgitation; Hyperglycemia; Generalized anxiety disorder; History of DVT (deep vein thrombosis); Benign paroxysmal positional vertigo of right ear; SOB (shortness of breath) Start: 12-18-2023 Telephone encounter Arabella Lopez [facility] Ambulatory Telemanagement Comment on above: Anticoagulation Tele phone Fu (Home INR result) Start: 12-03-2023 Telephone encounter Jinny adams [facility] Tele[facility] Comment on above: Anticoagulation Tele phone Fu (Home INR) Start: 11-30-2023 End: 11-30-2023 Subsequent hospital visit by physician Tien Head DO Work Phone: [facility] Comment on above: Arrived Start: 11-27-2023 Telephone encounter Arabella Wilidaniel RPh P harmacy Ambulatory Telemanagement Comment on above: Anticoagulation Tele phone Fu (Home INR result) Start: 11-12-2023 Telephone encounter Tien Serrano MD Work Phone: [facility] [place] Comment on above: Results Start: 11-11-2023 End: 11-11-2023 Patient encounter procedure Tien Serrano MD Work Phone: [facility] [place] Comment on above: Atrial fibrillation, unspecified type (HCC) (Primary Dx); Essential hypertension, benign; Moderate mitral regurgitation; Stage 3a chronic kidney disease (HCC); Hyperglycemia; Hx of skin cancer, basal cell; Generalized anxiety disorder; 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; 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; Balance problem; Impacted cerumen of left ear Start: 10-30-2023 Telephone encounter Ghazal Sanches [facility] Comment on above: Anticoagulation Tele phone Fu Start: 10-15-2023 Refill Tien Serrano MD Work Phone: [facility] [place] Comment on above: Refill Request Start: 10-13-2023 Telephone encounter Arabella Lopez [facility] Comment on above: Anticoagulation Tele phone [...] 07-25-2023 Refill Tien Serrano MD Work Phone: [facility] [place] Comment on above: Refill Request new pharmacy provide r Start: 07-14-2023 Telephone encounter Arabella Lopez [facility] Ambulatory Tele[facility] Comment on above: Anticoagulation Tele phone Fu (Home INR result) Start: 05-15-2023 Telephone encounter Namita [facility] Tele[facility] Comment on above: Anticoagulation Tele phone Fu (Home INR Result ) Start: 04-22-2023 End: 04-22-2023 Subsequent hospital visit by physician Tien Head DO Work Phone: [facility] Comment on above: Arrived Start: 04-16-2023 [facility] Comment on above: Anticoagulation Tele phone Fu (Home INR) Start: 03-31-2023 Telephone encounter Arabella Lopez [facility]ulatory Tele[facility] Comment on above: Anticoagulation Tele phone Fu (Home INR result) Start: 03-27-2023 End: 03-27-2023 Patient encounter procedure Paulino Namita Ruiz PA-C Work Phone: [facility] Comment on above: Hypertensive kidney disease with stage 3a chronic kidney disease (HCC) (Primary Dx); Hyperlipidemia LDL goal <100; Atrial fibrillation, unspecified type (HCC); shelter 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; Moderate mitral regurgitation; Moderate tricuspid regurgitation; Asymptomatic LV dysfunction; Venous (peripheral) insufficiency; History of DVT (deep vein thrombosis); shelter (current) use of anticoagulants; Generalized anxiety disorder; Hyperglycemia; Encounter for immunization Start: 03-12-2023 Telephone encounter Jinny adams [facility] Comment on above: Anticoagulation Tele phone Fu (Home INR) Start: 02-26-2023 Telephone [facility] Comment on above: Anticoagulation Tele phone Fu (Home INR) Start: 02-19-2023 End: 02-19-2023 Patient encounter procedure Paulino Namita Ruiz PA-C Work Phone: [facility] Comment on above: Essential hypertensi on, benign (Primary Dx); Stage 3a chronic kidney disease (HCC); Generalized anxiety disorder; shelter 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; Atrial fibrillation, unspecified type (HCC); Dizziness; Valvular heart disease Start: 02-19-2023 Telephone encounter Tien Serrano MD Work Phone: [facility] [place] Comment on above: Medication Request Start: 02-18-2023 Refill Tien Serrano MD Work Phone: [facility] [place] Comment on above: Refill Request Start: 02-10-2023 Telephone encounter Arabella Lopez RPh P [facility] Ambulatory [facility] Comment on above: Anticoagulation Tele phone Fu Start: 01-23-2023 Telephone encounter Bea Loco [facility] Ambulatory Tele[facility] Comment on above: Anticoagulation Tele phone Fu Start: 01-07-2023 Refill Tien Serrano MD Work Phone: [facility] [place] Comment on above: Refill Request Start: 01-06-2023 Telephone encounter Namita Gee R [facility] Ambulatory Telemanagement Comment on above: Anticoagulation (Marcello e INR Result ) Start: 12-19-2022 Telephone encounter Bea Loco [facility]ulatory Tele[facility] Comment on above: Anticoagulation Tele phone Fu Start: 12-15-2022 Refill Tien Serrano MD Work Phone: [facility] [place] Comment on above: Refill Request Start: 12-05-2022 Telephone encounter Ghazal [facility] Comment on above: Anticoagulation Tele phone Fu (Home INR result ) BP Readings Start: 11-24-2022 Telephone encounter Katy soria APRN.FOLDER OPERATOR Work Phone: [facility] Comment on above: Consult Start: 11-24-2022 End: 11-24-2022 Office outpatient visit 15 minutes Katy Galdamez APRN.FOLDER OPERATOR Work Phone: [facility] [place] Comment on above: Essential hypertensi on, benign (Primary Dx); Screening for colon cancer Start: 11-20-2022 Telephone encounter Marcelina ricci [facility] Work Phone: [facility] Comment on above: Anticoagulation Tele phone Fu Start: 11-05-2022 Telephone encounter Ghazal [facility] Comment on above: Anticoagulation Tele phone Fu (Home INR result ) Start: 10-22-2022 Telephone encounter Jamie Motley [facility]ulatory Telemanagement Comment on above: Anticoagulation Tele phone Fu (Home INR Result) Start: 10-21-2022 Telephone encounter Love Awad [facility] Telemanagement Comment on above: [...] 08-21-2022 Refill Tien Serrano MD Work Phone: [facility] [place] Comment on above: Refill Request Start: 08-13-2022 Telephone encounter Ghazal Lynn [facility] Comment on above: Anticoagulation Tele phone Fu (Home INR) Start: 08-06-2022 Refill Tien Serrano MD Work Phone: [facility] [place] Comment on above: Refill Request Start: 07-24-2022 Telephone encounter Jinny adams [facility] Tele[facility] Comment on above: Anticoagulation Tele phone Fu (Home INR ) Start: 07-11-2022 Telephone encounter Bea Loco [facility] Ambulatory Telemanagement Comment on above: Anticoagulation Tele phone Fu (INR Home Test Result) Start: 06-24-2022 Telephone encounter Arabella John RPh P harmacy Ambulatory Telemanagement Comment on above: Anticoagulation Tele phone Fu (Home INR) Start: 06-05-2022 Telephone encounter Jniny adams [facility] Tele[facility] Comment on above: Anticoagulation Tele phone Fu (Home INR result) Start: 05-22-2022 Telephone encounter Jinny adams [facility] Tele[facility] Comment on above: Anticoagulation Tele phone Fu (Home INR result) Start: 05-06-2022 Telephone encounter Arabella John [facility] Ambulatory Tele[facility] Comment on above: Anticoagulation Tele phone Fu (Home INR) Start: 04-29-2022 End: 04-29-2022 Subsequent hospital visit by physician Tyrell [facility] [place] Work Phone: Radiology Comment on [...] sounds Start: 04-22-2022 Telephone encounter Arabella John [facility]ulatory Telemanagement Comment on above: Anticoagulation Tele phone Fu (Home INR) Start: 04-07-2022 Telephone encounter Namita [facility] Tele[facility] Comment on above: Anticoagulation Tele phone Fu (Home INR Result) Start: 04-04-2022 Telephone encounter Bea Loco [facility] Telemanagement Comment on above: Anticoagulation Tele phone Fu Start: 03-21-2022 Telephone encounter Bea Adan [facility] Ambulatory Telemanagement Comment on above: Anticoagulation Tele phone Fu (INR Home Test Result) Start: 03-19-2022 Telephone encounter Rere Roberto [facility] Telemanagement Comment on above: Anticoagulation Tele phone Fu Start: 02-20-2022 Refill Tien Serrano MD Work Phone: [facility] [place] Comment on above: Refill Request Start: 02-18-2022 Telephone encounter Marcelina Mark [facility] Comment on above: Anticoagulation Tele phone Fu Start: 02-03-2022 Telephone encounter Paulino Ruiz PA-C Work Phone: [facility] [place] Comment on above: Opened In Error Results, Lab Anticoagulation Tele phone Fu (Home INR /) Results Start: 01-30-2022 End: 01-30-2022 Patient encounter procedure Paulino Ruiz PA-C Work Phone: [facility] [place] Comment on above: Abdominal [...] Dx) Start: 01-08-2022 Telephone encounter Ghazal Bailey [facility] Ambulatory Telemanagement Comment on above: [...] encounter procedure Tien Serrano MD Work Phone: [facility] Comment on above: Hypertensive kidney disease with stage 3a chronic kidney disease (HCC) (Primary Dx); Moderate tricuspid regurgitation; Atrial fibrillation, unspecified type (HCC); Essential hypertension, benign; Stage 3a chronic kidney disease (HCC); SOB (shortness of breath); Generalized anxiety disorder; Hx of skin cancer, basal cell Start: 10-28-2021 Telephone encounter Love Awad [facility] Comment on above: Anticoagulation Tele phone Fu (Home INR ) Start: 10-14-2021 Telephone encounter Namita Antonieta [facility] Tele[facility] Comment on above: Anticoagulation Tele phone Fu (Home INR Result) Start: 10-11-2021 Telephone encounter Tien Serrano MD Work Phone: [facility] Comment on above: Results Start: 10-10-2021 End: 10-10-2021 Subsequent hospital visit by physician Tyrell [facility] [place] Work Phone: Radiology Comment on [...] Result) Start: 09-03-2021 Telephone encounter Arabella Rasheeddaniel [facility]ulatory Tele[facility] Comment on above: Anticoagulation Tele phone Fu (Home INR result) Start: 04-25-2021 Telephone encounter Tien Serrano MD Work Phone: [facility] [place] Comment on above: Blood Pressure Check Start: 11-10-2019 End: 11-10-2019 Subsequent hospital visit by physician Tien Head Work Phone: [facility] Comment on above: Arrived Start: 11-11-2018 End: 11-11-2018 Office outpatient visit 15 minutes Tien Head Work Phone: [facility] Comment on above: Moderate mitral regu [...] Adult depression scr eening assessment Namita Gee [facility] Start: 04-22-2023 Echo tthrc r-t 2d w/ wom-mode compl spec&colr d Tien Head DO Work Phone: Start: 03-27-2023 INFLUENZA VACCINE, P RSV FREE, AGE 65+ YR, HIGH DOSE, QUADRIVALENT (FLUZONE HIGH-DOSE) M Namita Ruiz PA-C Work Phone: Start: 03-27-2023 [facility] COVI D-19 VACCINE (2022- SEASON) AGE 12+ [...] Adult depression scr eening assessment Arabella Lopez [facility] Start: 11-10-2019 Transthoracic echocardiography Tien Head Work Phone: Plan of Treatment Date Care Activity Detail Author Start: 05-02-2029 Tetanus vaccination TETANUS [facility] Start: 05-02-2029 Urine microalbumin profile [facility] Start: 01-27-2028 Diabetes Screening Diabetes Screening [facility] Start: 12-16-2027 Diabetes Screening Diabetes Screening [facility] Start: 12-08-2027 Diabetes Screening Diabetes Screening [facility] Start: 11-08-2027 Diabetes Screening Diabetes Screening [facility] Start: 11-02-2027 Diabetes Screening Diabetes Screening [facility] Start: 12-27-2026 Diabetes Screening Diabetes Screening [facility] Start: 11-10-2026 Diabetes Screening Diabetes Screening [facility] Start: 03-23-2026 Diabetes Screening Diabetes Screening [facility] Start: 11-20-2025 DIABETES SCREEN DIABETES SCREEN [facility] Start: 11-20-2025 Diabetes Screening Diabetes Screening [facility] Start: 10-27-2025 DIABETES SCREEN DIABETES SCREEN [facility] Start: 05-16-2025 End: 05-16-2025 Patient encounter procedure 05/16/2025 9:00 AM EST Office Visit [facility] [address] [place] [address] Tien Head, [address] [place] [address] [facility] Start: 04-22-2025 End: 04-22-2025 Patient encounter procedure 04/22/2025 8:40 AM EST Office Visit [facility] Medicine [place] [address] [place] [address] Tien Serrano MD [address] [place] [address] 4 month follow up [facility] [place] Comment on above: 4 month follow up Start: 03-17-2025 End: 03-17-2025 Patient encounter procedure Pulmonary Medicine Comment on above: 4 month f/u Start: 02-09-2025 Covid-19 Vaccine () Covid-19 Vaccine () [facility] Comment on above: Postponed from 02/07/2024 (Declined at t his time) Start: 02-09-2025 Covid-19 Vaccine () Covid-19 Vaccine () [facility] Comment on above: Postponed from 02/07/2024 (Declined at t his time) Start: 02-06-2025 Influenza vaccination Influ[facility] Vaccine (#[facility] Start: 01-30-2025 DIABETES SCREEN DIABETES SCREEN [facility] Start: 01-26-2025 End: 01-26-2025 ambulatory 01/26/2025 8:15 AM EDT Results Only [place] [facility] [address] [place] [address] [place] [facility] Start: 01-17-2025 End: 01-17-2025 ambulatory 01/17/2025 9:45 AM EDT OT/PT/Speech Visit [facility] [address] [place] [address] Michelle Gomez, PT Vertigo [R42] [facility] Comment on above: Vertigo [R42] Start: 01-11-2025 End: 01-11-2025 Patient encounter procedure 01/11/2025 2:00 PM EDT Office Visit Neurology [address] [place] [address] MARY BETH (obstructive sleep apnea) [G47.33] Neurology Comment on above: MARY BETH (obstructive sleep apnea) [G47.33] Start: 12-15-2024 End: 12-15-2024 ambulatory 12/15/2024 8:15 AM EDT Results Only [place] [facility] [address] [place] [address] [facility] Start: 12-07-2024 End: 03-08-2025 Basic metabolic 2000 panel - Serum or Plasma [facility] Work Phone: Comment on above: Expected: 12/07/2024, Expires: Start: 12-07-2024 End: 03-08-2025 Magnesium [Mass/volume] in Serum or Plasma [facility] Comment on above: Expected: 12/07/2024, Expires: Start: 12-07-2024 End: 12-07-2024 Patient encounter procedure 12/07/2024 9:00 AM EDT Office Visit Family Medicine [place] [address] [place] [address] Tien Serrano MD [address] [facility] [place] [address] 6 week follow up Family [facility] [place] Comment on above: 6 week follow up Start: 12-05-2024 Influenza vaccination Influenza Vaccine (#1) [facility] Comment on above: Postponed from 02/07/2024 (Declined at t his time) Start: 11-14-2024 End: 11-14-2024 Patient encounter procedure 11/14/2024 8:45 AM EDT Office Visit Pulmonary Medicine [address] [place] [address] Lia Griffin MD [address] [place] [address] Chronic obstructive pulmonary disease, unspecified COPD type (HCC) [J44.9]; SOB (shortness of breath) [R06.02] Pulmonary Medicine Comment on above: Chronic obstructive pulmonary disease, u nspecified COPD type (HCC) [J44.9]; SOB (shortness of breath) [R06.02] Start: 11-10-2024 Depression Screening Depression Screening [facility] Start: 11-07-2024 End: 11-07-2024 ambulatory 11/07/2024 9:45 AM EDT Results Only [facility] [address] [place] [facility] [place] [address] [facility] Start: 11-02-2024 End: 02-01-2025 Basic metabolic 2000 panel - Serum or Plasma BASIC METABOLIC PANEL Lab Routine Essential hypertension, benign Expected: 11/02/2024, Expires: 02/01/2025 [facility] Work Phone: Comment on above: Expected: 11/02/2024, Expires: Start: 11-02-2024 End: 02-01-2025 Magnesium [Mass/volume] in Serum or Plasma MAGNESIUM Lab Routine Essential hypertension, benign Expected: 11/02/2024, Expires: 02/01/2025 [facility] Comment on above: Expected: 11/02/2024, Expires: Start: 11-02-2024 End: 02-01-2025 Natriuretic peptide.B prohormone N-Terminal [Mass/volume] in Serum or Plasma NT PRO BNP Lab Routine Congestive heart failure, unspecified HF chronicity, unspecified heart failure type (HCC) Expected: 11/02/2024, Expires: 02/01/2025 [facility] Comment on above: Expected: 11/02/2024, Expires: Start: 11-02-2024 End: 11-02-2024 Patient encounter procedure 11/02/2024 10:20 AM EDT Office Visit Family Medicine [place] [address] [place] [address] Tien Serrano MD [address] [facility] [place] [address] 6 month follow up Family Medicine [place] Comment on above: 6 month follow up Start: 10-30-2024 End: 01-29-2025 CBC W Auto Differential panel - Blood COMPLETE BLOOD COUNT AND DIFFERENTIAL Lab Routine Essential hypertension, benign Expected: 10/30/2024, Expires: 01/29/2025 [facility] Work Phone: Comment on above: Expected: 10/30/2024, Expires: Start: 10-30-2024 End: 01-29-2025 Comprehensive metabolic 2000 panel - Serum or Plasma COMPREHENSIVE METABOLIC PANEL Lab Routine Essential hypertension, benign Expected: 10/30/2024, Expires: 01/29/2025 [facility] Comment on above: Expected: 10/30/2024, Expires: Start: 10-30-2024 End: 01-29-2025 Hemoglobin A1c in Blood HEMOGLOBIN A1C Lab Routine Hyperglycemia Expected: 10/30/2024, Expires: 01/29/2025 [facility] Comment on above: Expected: 10/30/2024, Expires: Start: 10-30-2024 End: 01-29-2025 Lipid 1996 panel - Serum or Plasma LIPID PANEL BASIC Lab Routine Essential hypertension, benign Expected: 10/30/2024, Expires: 01/29/2025 [facility] Comment on above: Expected: 10/30/2024, Expires: Start: 10-27-2024 End: 10-27-2024 ambulatory 10/27/2024 9:30 AM EDT Results Only [place] [facility] [address] [place] [address] [facility] Start: 10-15-2024 DIABETES SCREEN DIABETES SCREEN [facility] Start: 10-10-2024 End: 10-10-2024 Patient encounter procedure 10/10/2024 7:20 PM EDT Office Visit [facility] [place] [address] [place] [address] Tien Serrano MD [address] [place] [address] discuss referral to pulm [facility] [place] Comment on above: discuss referral to pulm Start: 10-10-2024 DIABETES SCREEN DIABETES SCREEN [facility] Start: 10-10-2024 End: 01-09-2025 Natriuretic peptide.B prohormone N-Terminal [Mass/volume] in Serum or Plasma NT PRO BNP Lab Routine SOB (shortness of breath) Expected: 10/10/2024, Expires: 01/09/2025 [facility] Work Phone: Comment on above: Expected: 10/10/2024, Expires: Start: 09-02-2024 Covid-19 Vaccine () Covid-19 Vaccine () [facility] Start: 06-08-2024 Advance Directive Discussion Advance Directive Discussion [facility] Start: 06-08-2024 Medicare Advantage Annual Wellness Visit Medicare Advantage Annual Wellness Visit [facility] Start: 05-10-2024 End: 05-10-2024 Patient encounter procedure 05/10/2024 10:00 AM EST Office Visit [facility] [address] [place] [address] Tien Head DO [address] [place] [address] [facility] Start: 05-02-2024 End: 05-02-2024 Patient encounter procedure 05/02/2024 3:20 PM EST Office Visit Family Gerardo [place] [address] [place] [address] Tien Serrano MD [address] [place] [address] 2 month follow up Family Gerardo [place] Comment on above: 2 month follow up Start: 04-13-2024 End: 04-13-2024 ambulatory 04/13/2024 9:45 AM EST OT/PT/Speech Visit [facility] [address] [place] [id number] Michelle Gomez, PT Priority: Routine [place] [facility] Comment on above: Priority: Routine Start: 03-30-2024 End: 03-30-2024 ambulatory 03/30/2024 9:45 AM EDT OT/PT/Speech Visit [facility] [address] [place] [address] Michelle Gomez, PT Priority: Routine [facility] Comment on above: Priority: Routine Start: 03-23-2024 End: 03-23-2024 Patient encounter procedure [facility] [place] Comment on above: 6 week follow up PFT testing Start: 03-16-2024 End: 03-16-2024 ambulatory 03/16/2024 10:30 AM EDT OT/PT/Speech Visit [facility] [address] [place] [address] Michelle Gomez, PT Priority: Routine [facility] Comment on above: Priority: Routine Start: 03-14-2024 DIABETES SCREEN DIABETES SCREEN [facility] Start: 02-29-2024 End: 02-29-2024 ambulatory 02/29/2024 12:30 PM EDT OT/PT/Speech Visit [facility] [address] [place] [address] Kadeem'Michelle Berrios, PT Dx: Lightheaded [R42 (ICD-10-CM)]; Benign paroxysmal positional vertigo of right ear [H81.11 (ICD-10-CM)] [facility] Comment on above: Dx: Lightheaded [R42 (ICD-10-CM)]; Benig n paroxysmal positional vertigo of right ear [H81.11 (ICD-10-CM)] Start: 02-15-2024 End: 02-15-2024 Follow-up encounter 02/15/2024 9:30 AM EDT OT/PT/Speech Visit [facility] [address] [place] [address] O'Michelle Berrios, PT follow up [facility] Comment on above: follow up Start: 02-11-2024 End: 02-11-2024 ambulatory [facility] Comment on above: SOB (shortness of breath) [R06.02] Start: 02-10-2024 End: 02-10-2024 Patient encounter procedure 02/10/2024 11:20 AM EDT Office Visit Family Gerardo Chavezoster [address] [place] [address] Tien Serrano MD [address] [facility] [place] [address] 6 week follow up Family Gerardo [place] Comment on above: 6 week follow up Start: 02-07-2024 Influenza vaccination Influenza Vaccine (#1) [facility] Start: 02-02-2024 End: 02-02-2024 ambulatory 02/02/2024 9:45 AM EDT OT/PT/Speech Visit [facility] [address] [place] [address] Michelle Gomez, PT Lightheaded [R42]; Benign paroxysmal positional vertigo of right ear [H81.11] [facility] Comment on above: Lightheaded [R42]; Benign paroxysmal pos itional vertigo of right ear [H81.11] Start: 12-29-2023 End: 12-29-2023 Patient encounter procedure 12/29/2023 3:40 PM EDT Office Visit Family Gerardo [place] [address] [place] [address] Tien Serrano MD [address] [facility] [place] [place] [address] 6 week follow up Family Gerardo Chavezoster Comment on above: 6 week follow up Start: 12-26-2023 End: 12-26-2023 Patient encounter procedure 12/26/2023 10:20 AM EDT Office Visit Family Gerardo Chavezoster [address] [place] [address] Tien Serrano MD [address] [facility] [place], [place] [id number] 6 week follow up Family Gerardo [place] Comment on above: 6 week follow up Start: 12-08-2023 End: 12-08-2023 Patient encounter procedure 12/08/2023 9:15 AM EDT Office Visit [facility] [address] [place] [address] Tien Head, [address] [place] [address] [facility] Start: 11-25-2023 ANNUAL PCP TEAM CHRONIC DISEASE VISIT ANNUAL PCP TEAM CHRONIC DISEASE VISIT [facility] Start: 11-21-2023 SERUM CREATININE SERUM CREATININE [facility] Start: 11-12-2023 End: 02-11-2024 Basic metabolic 2000 panel - Serum or Plasma BASIC METABOLIC PANEL Lab Routine Renal insufficiency Expected: 11/12/2023, Expires: 02/11/2024 [facility] Work Phone: Comment on above: Expected: 11/12/2023, Expires: Start: 11-11-2023 End: 11-11-2023 Patient encounter procedure 11/11/2023 9:40 AM EDT Office Visit [facility] [place] [address] [place] [address] Tien Serrano MD [address] [place] [address] 6 month follow up [facility] [place] Comment on above: 6 month follow up Start: 11-09-2023 End: 11-09-2023 Patient encounter procedure 11/09/2023 10:00 AM EDT Office Visit [facility] [address] [place] [id number] Tien Head, DO [address] [place] [address] [facility] Start: 11-01-2023 ANNUAL PCP TEAM CHRONIC DISEASE VISIT ANNUAL PCP TEAM CHRONIC DISEASE VISIT [facility] Start: 10-28-2023 SERUM CREATININE SERUM CREATININE [facility] Start: 07-28-2023 Covid-19 Vaccine ( season) Covid-19 Vaccine ( season) [facility] Start: 06-08-2023 Advance Directive Discussion Advance Directive Discussion [facility] Start: 06-08-2023 Behavioral Health Screening Behavioral Health Screening [facility] Start: 06-08-2023 Depression Assessment Depression Assessment [facility] Start: 04-29-2023 ANNUAL PCP TEAM CHRONIC DISEASE VISIT ANNUAL PCP TEAM CHRONIC DISEASE VISIT [facility] Start: 02-19-2023 End: 04-21-2023 Basic metabolic 2000 panel - Serum or Plasma BASIC METABOLIC PNL Lab Routine Stage 3a chronic kidney disease (HCC) Expected: 02/19/2023, Expires: 04/21/2023 [facility] Work Phone: Comment on above: Expected: 02/19/2023, Expires: Start: 02-06-2023 Influenza vaccination [facility] Start: 01-30-2023 ANNUAL PCP TEAM CHRONIC DISEASE VISIT ANNUAL PCP TEAM CHRONIC DISEASE VISIT [facility] Start: 01-30-2023 HEMOGLOBIN/HEMATOCRIT HEMOGLOBIN/HEMATOCRIT [facility] Start: 01-30-2023 SERUM CREATININE SERUM CREATININE [facility] Start: 11-08-2022 ANNUAL PCP TEAM CHRONIC DISEASE VISIT ANNUAL PCP TEAM CHRONIC DISEASE VISIT [facility] Start: 10-27-2022 End: 12-27-2022 Comprehensive metabolic 2000 panel - Serum or Plasma COMP METABOLIC PANEL Lab Routine Hyperlipidemia LDL goal <100 Expected: 10/27/2022, Expires: 12/27/2022 [facility] Work Phone: Comment on above: Expected: 10/27/2022, Expires: 3 Start: 10-27-2022 End: 12-27-2022 Hemoglobin A1c in Blood HGB A1C Lab Routine Hyperglycemia Expected: 10/27/2022, Expires: 12/27/2022 [facility] Work Phone: Comment on above: Expected: 10/27/2022, Expires: 3 Start: 10-27-2022 End: 12-27-2022 Lipid 1996 panel - Serum or Plasma LIPID PANEL BASIC Lab Routine Hyperlipidemia LDL goal <100 Expected: 10/27/2022, Expires: 12/27/2022 [facility] Work Phone: Comment on above: Expected: 10/27/2022, Expires: 3 Start: 10-15-2022 SERUM CREATININE SERUM CREATININE [facility] Start: 10-10-2022 ANNUAL PCP TEAM CHRONIC DISEASE VISIT ANNUAL PCP TEAM CHRONIC DISEASE VISIT [facility] Start: 10-10-2022 HEMOGLOBIN/HEMATOCRIT HEMOGLOBIN/HEMATOCRIT [facility] Start: 10-10-2022 SERUM CREATININE SERUM CREATININE [facility] Start: 08-12-2022 COVID-19 VACCINE (5 - Moderna series) COVID-19 VACCINE (5 - Moderna series) [facility] Start: 06-08-2022 ADVANCE DIRECTIVE DISCUSSION ADVANCE DIRECTIVE DISCUSSION [facility] Start: 06-08-2022 DEPRESSION ASSESSMENT DEPRESSION ASSESSMENT [facility] Start: 04-25-2022 BP CONTROLLED (<130/80) BP CONTROLLED (<130/80) [facility] Start: 03-14-2022 ANNUAL PCP TEAM CHRONIC DISEASE VISIT ANNUAL PCP TEAM CHRONIC DISEASE VISIT [facility] Start: 03-14-2022 HEMOGLOBIN/HEMATOCRIT HEMOGLOBIN/HEMATOCRIT [facility] Start: 03-14-2022 SERUM CREATININE SERUM CREATININE [facility] Start: 03-09-2022 Adult depression screening assessment DEPRESSION SCREENING [facility] Start: 02-06-2022 Influenza vaccination INFLUENZA (#1) [facility] Start: 02-03-2022 End: 04-05-2022 ALBUMIN/CREAT RATIO RND UR ALBUMIN/CREAT RATIO RND UR Lab Routine Abnormal casts in urine Urine protein increased Expected: 02/03/2022, Expires: 04/05/2022 [facility] Work Phone: Comment on above: Expected: 02/03/2022, Expires: 2 Start: 02-03-2022 End: 04-05-2022 Urinalysis complete panel - Urine URINALYSIS, WITH MICROSCOPIC Lab Routine Abnormal casts in urine Urine protein increased Expected: 02/03/2022, Expires: 04/05/2022 [facility] Work Phone: Comment on above: Expected: 02/03/2022, Expires: 2 Start: 01-30-2022 End: 04-01-2022 CBC W Auto Differential panel - Blood [facility] Work Phone: Comment on above: Expected: 01/30/2022, Expires: 2 Start: 01-30-2022 End: 04-01-2022 Comprehensive metabolic 2000 panel - Serum or Plasma [facility] Work Phone: Comment on above: Expected: 01/30/2022, Expires: 2 Start: 01-30-2022 End: 04-01-2022 Lipase [Enzymatic activity/volume] in Serum or Plasma [facility] Work Phone: Comment on above: Expected: 01/30/2022, Expires: 2 Start: 10-11-2021 End: 12-11-2021 Basic metabolic 2000 panel - Serum or Plasma BASIC METABOLIC PNL Lab Routine Congestive heart failure, unspecified HF chronicity, unspecified heart failure type (HCC) Expected: 10/11/2021, Expires: 12/11/2021 [facility] Work Phone: Comment on above: Expected: 10/11/2021, Expires: 2 Start: 08-07-2021 COVID-19 VACCINE (4 - Booster for Moderna series) COVID-19 VACCINE (4 - Booster for Moderna series) [facility] Start: 06-08-2021 ADVANCE DIRECTIVE DISCUSSION ADVANCE DIRECTIVE DISCUSSION [facility] Start: 06-08-2021 DEPRESSION ASSESSMENT DEPRESSION ASSESSMENT [facility] Start: 06-04-2021 COVID-19 VACCINE (4 - Booster for Moderna series) COVID-19 VACCINE (4 - Booster for Moderna series) [facility] Start: 03-26-2021 Tetanus vaccination TETANUS [facility] Start: 11-12-2020 End: 11-12-2020 Office Visit 11/12/2020 Office Visit Cardiovascular Medicine Tien Head, [address] [place] [address] [facility] Start: 08-02-2020 COVID-19 VACCINE (2 - Moderna 3-dose series) COVID-19 VACCINE (2 - Moderna 3-dose series) [facility] Start: 11-12-2019 End: 11-12-2019 Transthoracic echocardiography ECHOCARDIOGRAM Echocardiography Routine Moderate mitral regurgitation Expected: 11/12/2019, Expires: 11/12/2019 [facility] Comment on above: Expected: 11/12/2019, Expires: 0 Start: 11-10-2019 End: 11-10-2019 Office Visit 11/10/2019 Office Visit Cardiovascular Medicine Tien Head, DO [address] [id number] [facility] Start: 02-24-2015 Screening for malignant neoplasm of colon COLORECTAL CANCER SCREENING DISCUSSION [facility] Start: 2001 RSV Vaccine (1 - 1-dose 60+ series) RSV Vaccine (1 - 1-dose 60+ series) [facility] Start: 12-26-1991 Colonoscopy [facility] Start: 12-26-1991 Zoster vaccine hzv live for subcutaneous use ZOSTER (SHINGLES) VACCINE (1 of 2) [facility] Start: 1986 Screening for malignant neoplasm of colon COLORECTAL CANCER SCREENING DISCUSSION [facility] Start: 1960 Third diphtheria, tetanus and acellular pertussis (DTaP) vaccination TDAP (ADULT) [facility] Start: 12-26-1959 BP CONTROLLED (<130/80) BP CONTROLLED (<130/80) [facility] in Echocardiography ECHOCARDIOGRAM Echocardiography Routine Atrial fibrillation, unspecified type Dyspnea on exertion 11/18/2024 11:20 AM EDT [facility] End: 12-07-2025 HOME SLEEP APNEA TEST (HSAT) HOME SLEEP APNEA TEST (HSAT) Procedures Routine MARY BETH (obstructive sleep apnea) 1 Occurrences starting 12/07/2024 until 12/07/2025 [facility] Comment on above: 1 Occurrences starting 12/07/2024 until 12/07/2025 End: 03-11-2025 LUNG VOLUMES LUNG VOLUMES PFT Routine SOB (shortness of breath) Lightheadedness 1 Occurrences starting 02/10/2024 until 03/11/2025 [facility] Comment on above: 1 Occurrences starting 02/10/2024 until 03/11/2025 Removal impacted cer umen irrigation/lvg unilat AMBULATORY EAR LAVAGE/IRRIGATION Procedures Routine Impacted cerumen of left ear Ordered: 11/11/2023 [facility] Work Phone: Comment on above: Ordered: 11/11/2023 End: 03-11-2025 SIX MINUTE WALK SIX MINUTE WALK PFT Routine SOB (shortness of breath) Lightheadedness 1 Occurrences starting 02/10/2024 until 03/11/2025 [facility] Comment on above: 1 Occurrences starting 02/10/2024 until 03/11/2025 SIX MINUTE WALK SIX MINUTE WALK PFT Routine SOB (shortness of breath) Lightheadedness 02/11/2024 1:12 PM EDT [facility] Work Phone: End: 03-11-2025 SPIROMETRY WITH DILATOR IF OBSTRUCTED SPIROMETRY WITH DILATOR IF OBSTRUCTED PFT Routine SOB (shortness of breath) Lightheadedness 1 Occurrences starting 02/10/2024 until 03/11/2025 [facility] Work Phone: Comment on above: 1 Occurrences starting 02/10/2024 until 03/11/2025 Urinalysis complete panel - Urine URINALYSIS, WITH MICROSCOPIC Lab Routine Abdominal pain, left lateral 01/30/2022 11:36 AM EDT [facility] Work Phone: End: 11-09-2025 XR Chest PA and Lateral XR CHEST 2V FRONTAL/LAT Radiology Routine SOB (shortness of breath) COPD with exacerbation (HCC) 1 Occurrences starting 10/10/2024 until 11/09/2025 [facility] Comment on above: 1 Occurrences starting 10/10/2024 until 11/09/2025 XR Chest PA and Lateral XR CHEST 2V FRONTAL/LAT Radiology Routine SOB (shortness of breath) COPD with exacerbation (HCC) 10/11/2024 11:07 AM EDT [facility] Work Phone: [facility] Immunizations Immunization Date Immunization Notes Care Provider Vicente beal 05-02-2024 influenza, high dose seasonal, preservative-free Tien Serrano MD Work Phone: [facility] 05-02-2024 influenza virus vacc ine, unspecified formulation Tien Serrano MD Work Phone: [facility] 03-05-2024 COVID-19 vaccine, ag e 12+ yr (PFIZER-BIONTECH COMIRNATY) Michelle Gomez PT [facility] 04-21-2023 pneumococcal (PCV20) vaccine, 20 valent (PREVNAR 20) Namita Gee [facility] 04-21-2023 respiratory syncytia l virus (RSV) vaccine, bivalent (ABRYSVO) Namita Gee [facility] 03-27-2023 COVID-19 vaccine, ag e 12+ yr, season ([employer]BIONT[employer]) AMBER Ruiz PA-C Work Phone: [facility] 03-27-2023 influenza (HD-IIV4) vaccine, age 65+ yr, high dose, quadrivalent, PF (FLUZONE HIGH-DOSE) NA Ruiz PA-C Work Phone: [facility] 03-27-2023 influenza virus vacc ine, unspecified formulation Arabella Lopez [facility] 04-01-2022 influenza (HD-IIV4) vaccine, age 65+ yr, high dose, quadrivalent, PF (FLUZONE HIGH-DOSE) NA Ruiz PA-C Work Phone: [facility] 04-01-2022 influenza, high dose seasonal, preservative-free Bea Adan [facility] 04-01-2022 influenza virus vacc ine, unspecified formulation Tien Serrano MD Work Phone: [facility] 03-14-2021 influenza, high-dose , quadrivalent vaccine (FLUZONE HIGH DOSE QUADRIVALENT) Arabella Lopez [facility] 07-05-2020 COVID-19 vaccine, fu ll dose (MODERNA) Arabella Lopez [facility] 03-08-2020 influenza, high-dose , quadrivalent vaccine (FLUZONE HIGH DOSE QUADRIVALENT) Arabella Lopez [facility] 05-02-2019 influenza, injectabl e, quadrivalent, preservative free NA Ruiz PA-C Work Phone: [facility] 05-02-2019 tetanus toxoid, redu mary diphtheria toxoid, and acellular pertussis vaccine, adsorbed Arabella Begany [facility] 04-10-2019 zoster vaccine recombinant Arabella Begany [facility] 04-06-2019 influenza, high dose seasonal, preservative-free Arabella [facility] 04-06-2019 tetanus toxoid, redu mary diphtheria toxoid, and acellular pertussis vaccine, adsorbed NA Ruiz PA-C Work Phone: [facility] 02-20-2019 zoster vaccine recombinant Arabella Began [facility] 09-25-2018 zoster vaccine recombinant NA Ruiz PA-C Work Phone: [facility] 07-31-2018 zoster vaccine recombinant NA Ruiz PA-C Work Phone: [facility] 04-10-2018 influenza, high dose seasonal, preservative-free Arabella Begany [facility] 04-07-2017 influenza, high dose seasonal, preservative-free [facility] Work Phone: 03-29-2016 influenza, high dose seasonal, preservative-free [facility] 04-20-2015 influenza, high dose seasonal, preservative-free Arabella Begany [facility] 04-20-2015 pneumococcal conjuga te vaccine, [address] [facility] 04-12-2015 influenza, injectabl e, quadrivalent, contains preservative [facility] 04-12-2015 influenza, seasonal, injectable, preservative free Arabella Began [facility] 04-05-2014 influenza, high dose seasonal, preservative-free Arabella Begany [facility] 04-05-2014 influenza, seasonal, injectable [facility] 03-26-2011 influenza virus vacc ine, unspecified formulation Arabella y [facility] Work Phone: 03-26-2011 TD(adult) unspecifie d formulation Arabella y [facility] 03-26-2011 tetanus and diphther ia toxoids, adsorbed, preservative free, for adult use (2 Lf of tetanus toxoid and 2 Lf of diphtheria toxoid) [facility] Work Phone: 03-10-2011 zoster vaccine, live Arabella [facility] 04-13-2010 influenza virus vacc ine, unspecified formulation Arabella [facility] Work Phone: 04-19-2009 H1N1 Flu Vaccine Tien Head [facility] 04-19-2009 influenza, high dose seasonal, preservative-free Arabella [facility] 04-19-2009 novel influenza-H1N1 -09, all formulations Arabella daniel [facility] Work Phone: 04-19-2009 novel influenza-H1N1 -09, preservative-free, injectable Arabella [facility] 04-16-2009 influenza virus vacc ine, unspecified formulation Arabella [facility] 04-21-2008 influenza virus vacc ine, unspecified formulation Arabella [facility] Work Phone: 04-14-2007 influenza virus vacc ine, whole virus Tien Head [facility] Work Phone: 04-14-2007 pneumococcal polysaccharide vaccine, 23 valent Tien Head [facility] Work Phone: 05-29-2005 influenza virus vacc ine, [facility] virus [facility] Payers Date Payer Category Payer Self-pay 2021 Medicare [employer] MEDICARE A ETNA MEDICARE PPO [id number] 2021-Present [phone] [address] [place] [address] PPO [id number] 2017 Medicare [id number] 2017 Medicare MEDICARE AETNA [place] P[place] MEDICARE AETNA PPO [id number] 2017-Present [id number] 2017 Medicare [id number] 2017 Medicare (Managed Care) [id number] 2017 Medicare [id number] 1941 Unknown [id number] 1941 Unknown [id number] 1941 Unknown [id number] 1941 Unknown [id number] 1941 Unknown [id number] 83 Unknown [id number] Social History Date Type Detail Facility Start: 11-10-2019 End: 11-14-2024 Tobacco smoking status NHIS Former smoker [facility] Start: 11-10-2019 End: 11-14-2024 Tobacco use and exposure Never used [facility] Start: 11-10-2019 End: 01-16-2025 Alcohol intake Current drinker of alcohol (finding) [facility] Start: 11-11-2017 End: 04-17-2022 Tobacco Comment quit 20 years ago [facility] Start: 11-11-2017 Alcohol Comment 7 - 8 drinks per week. wine/martini [facility] Start: 1940 Sex Assigned At Not on file [facility] Start: 09-30-2021 End: 04-29-2022 Exposure to SARS-CoV-2 (event) Not sure [facility] Start: 06-08-1958 End: 02-24-2011 History of tobacco use Current smoker [facility] Start: 06-08-1958 End: 02-24-2011 History of tobacco use Cigarette Smoker [facility] Start: 04-25-2021 End: 01-17-2025 Alcohol intake [facility] Start: 03-02-2020 End: 10-25-2022 History SDOH Alcohol Std Drinks 1 [facility] Start: 03-25-2011 History SDOH Alcohol Comment one drink a day [facility] Start: 03-02-2020 End: 10-25-2022 History SDOH Social Connections Phone 5 [facility] Start: 03-02-2020 End: 10-25-2022 History SDOH Social Connections Get Together 3 [facility] Start: 03-02-2020 End: 10-25-2022 History SDOH Transport Med 2 [facility] Start: 03-02-2020 Education 18 [facility] Start: 1940 Sex Assigned At Male [facility] Start: 11-01-2021 History SDOH Social Connections Get Together 4 [facility] Start: 11-01-2021 History SDOH Physical Activity DPW 6 [facility] Start: 10-25-2022 History SDOH Physical Activity MPS 98 [facility] Start: 10-25-2022 End: 01-17-2025 Social connection and isolation panel [facility] Do you belong to any clubs or organizations such as christian groups, unions, fraternal or athletic groups, or school groups? Yes [facility] Are you now , , , , never or living with a partner? [facility] How often to you hav e a drink containing alcohol? 4 or more times a week [facility] How many standard dr inks containing alcohol do you have on a typical day? 1 or 2 [facility] How often do you hav e 6 or more drinks on 1 occasion? Never [facility] Start: 05-09-2012 How hard is it for you to pay for the very basics like food, housing, medical care, and heating Not hard at all [facility] Do you feel stress - tense, restless, nervous, or anxious, or unable to sleep at night because your mind is troubled all the time - these days [OSQ] Not at all [facility] (I/We) worried wheth er (my/our) food would run out before (I/we) got money to buy more. Never true [facility] In the past 12 month s, was there a time when you were not able to pay the mortgage or rent on time? No [facility] Start: 11-04-2017 Gender identity Identifies as male gender (finding) [facility] Start: 11-09-2019 Sexual orientation Heterosexual (finding) [facility] Start: 11-11-2017 Alcohol Comment 7 - 8 drinks per week. wine/martini [facility] Start: 11-04-2017 Sex Male (finding) [facility] Start: 08-24-2020 Alcohol Alcohol [facility] Start: 08-24-2020 Lives Lives [facility] Start: 08-14-2020 Tobacco Use Tobacco Use [facility] Functional Status Date Assessment Result Facility 01-21-2018 Are you deaf, or do you have serious difficulty hearing No 01/21/2018 9:58 AM HARPERT Geoffrey Garcia III, MD [facility] 01-21-2018 Are you blind, or do you have serious difficulty seeing, even when wearing glasses No 01/21/2018 9:58 AM Geoffrey Carmen III, MD [facility] 01-21-2018 Do you have serious difficulty walking or climbing stairs No 01/21/2018 9:58 AM Geoffrey Carmen III, MD [facility] 01-21-2018 Do you have difficul ty dressing or bathing No 01/21/2018 9:58 AM Geoffrey Carmen III, MD [facility] 01-21-2018 Because of a physica l, mental, or emotional condition, do you have difficulty doing errands alone such as visiting a physician's office or shopping No 01/21/2018 9:58 AM Geoffrey Carmen III, MD [facility] Mental Status Date Assessment Result Facility 01-21-2018 Because of a physica l, mental, or emotional condition, do you have serious difficulty concentrating, remembering, or making decisions No 01/21/2018 9:58 AM Geoffrey Carmen III, MD No [facility] Clinical Notes 01-21-2018 to 02-21-2025 Telephone [...] February 21, 2025 12:26 PM [facility] 02-21-2025 Miscellaneous Notes Prescription Refill Information [...] PM documented in this encounter [facility] 02-20-2025 Telephone encounter Note [facility] Ambulatory Pharmacy Anticoagulation Clinic Anticoagulation Episode Summary Anticoagulation Care Providers Provider Role Specialty Phone number Tien Serrano MD Referring Family Medicine [phone] Wilmer Morley is a 84 year old [...] Mon; 5 mg all other days Sent [facility] message Advised patient to continue current weekly dose as noted above Next INR check due on 03/06/2025 Namita Gee RPh Clinical Pharmacist, Pharmacy Anticoagulation Clinic Pharmacy Antico[facility] Clinic Pager: [phone]. [facility] 02-20-2025 Miscellaneous Notes [facility] Ambulatory Pharmacy Anticoagulation Clinic Anticoagulation Episode Summary Anticoagulation Care Providers Provider Role Specialty Phone number Tien Serrano MD Referring Family Medicine [phone] Wilmer Morley is a 84 year old [...] Mon; 5 mg all other days Sent [facility] message Advised patient to continue current weekly dose as noted above Next INR check due on 03/06/2025 Namita Gee RPh Clinical Pharmacist, Pharmacy Anticoagulation Clinic Pharmacy An[facility] Pager: [phone]. documented in this encounter [facility] 02-07-2025 Telephone encounter Note [facility] Ambulatory Pharmacy Anticoagulation Clinic Anticoagulation Episode Summary Anticoagulation Care Providers Provider Role Specialty Phone number Tien Serrano MD Referring Family Medicine [phone] Wilmer Morley is a 84 year old [...] Mon; 5 mg all other days Sent [employer] message Advised patient to continue current weekly [...] Pharmacy Anticoagulation Clinic Pharmacy Anticoagulation Clinic Pager: [phone]. [facility] 02-07-2025 Miscellaneous Notes [facility] Ambulatory Pharmacy Anticoagulation Clinic Anticoagulation Episode Summary Anticoagulation Care Providers Provider Role Specialty Phone number Tien Serrano MD Referring Family Medicine [phone] Wilmer Morley is a 84 year old [...] Pharmacy Anticoagulation Clinic Pharmacy Anticoagulation Clinic Pager: [phone]. documented in this encounter [facility] 01-28-2025 Telephone encounter Note Closing encounter as patient has not called back in over a week since results were given [facility] 01-28-2025 Miscellaneous Notes Closing encounter as [...] consult documented in this encounter [facility] 01-23-2025 Telephone encounter Note [facility] Ambulatory Pharmacy Anticoagulation Clinic Anticoagulation Episode Summary Anticoagulation Care Providers Provider Role Specialty Phone number Tien Serrano MD Referring Family Medicine [phone] Wilmer Morley is a 84 year old [...] Mon; 5 mg all other days Sent [facility] message Advised patient to continue current weekly dose as noted above Next INR check due on 02/13/2025 Namita Gee RPh Clinical Pharmacist, Pharmacy Anticoagulation Clinic Pharmacy Anticoagulation Clinic Pager: [phone]. [facility] 01-23-2025 Miscellaneous Notes [facility] Ambulatory Pharmacy Anticoagulation Clinic Anticoagulation Episode Summary Anticoagulation Care Providers Provider Role Specialty Phone number Tien Serrano MD Referring Family Medicine [phone] Wilmer Morley is a 84 year old [...] Mon; 5 mg all other days Sent [facility] message Advised patient to continue current weekly dose as noted above Next INR check due on 02/13/2025 Namita Gee [facility] Clinical Pharmacist, Pharmacy Anticoagulation Clinic Pharmacy Anticoagulation Clinic Pager: [phone]. documented in this encounter [facility] 01-19-2025 Telephone encounter Note Patient was made aware of the results. Patient verbalizes understanding. He would like to think on this and call back Stephany Stein Ma [facility] 01-19-2025 Telephone encounter Note Sleep study shows mild sleep apnea. We could consider cpap treatment or we can have him work on things like side sleeping and keeping weight tight if he does not want to. Let me know If he is willing to do cpap, we can set him up for autopap and a sleep apnea consult [facility] 01-17-2025 Note HNO ID: [id number] Author: MICHELLE GOMEZ, PT Service: ? Author [...] Planned: 1 Planned Treatment Interventions: Therapeutic exercise (00221), Neuromuscular re-education (31265), Manual therapy (32170), Therapeutic activities (97103), Self-chcf management (04805), Gait Training (42193) PLAN FOR NEXT VISIT: DC Patient demonstrates [...] States/Identifies, Return Demonstration TREATMENT: PT Treatment Interventions: Self-Alf Management Evaluation Self-Alf Management: 1: advised activity modification and monitoring his vitals at (more content not included)... [facility] 01-17-2025 History of Present illness Narrative Images [...] Planned: 1 Planned Treatment Interventions: Therapeutic exercise (75560), Neuromuscular re-education (78004), Manual therapy (14077), Therapeutic activities (73431), Self-chcf management (40051), Gait Training (86631) PLAN FOR NEXT VISIT: DC Patient demonstrates [...] States/Identifies, Return Demonstration TREATMENT: PT Treatment Interventions: Self-Alf Management Evaluation Self-Alf Management: 1: advised activity modification and monitoring [...] PT documented in this encounter [facility] 01-16-2025 Note HNO ID: [id number] Author: BLAYNE DAVIS APRN.FOLDER OPERATOR Service: ? Author Type: Nurse Practitioner Type: Progress Notes Filed: 01/16/2025 14:42 Note Text: Patient triaged at [facility]. Here today with suture removal, surgical procedure removing skin cancer. I advised patient to have sutures removed via medical biller/coder. Appears to be a complex surgical removal. [facility] 01-16-2025 History of Present illness Narrative Patient triaged at [facility]. Here today with suture removal, surgical procedure removing skin cancer. I advised patient to have sutures removed via medical biller/coder. Appears to be a complex surgical removal. documented in this encounter [facility] 01-13-2025 Note HNO ID: [id number] Author: ?, ?, ? Service: ? Author Type: ? Type: Progress Notes Filed: 01/13/2025 16:38 Note Text: Date: January 13, 2025 Name: Wilmer Morley Comments HSAT have been returned in working order with QANDA completed online. Possible belt failure, unsure. Passing study through for readers to determine result status. Maureen Gilman [facility] 01-09-2025 Note HNO ID: [id number] Author: ?, ?, ? Service: ? Author Type: ? Type: Progress Notes Filed: 01/13/2025 16:38 Note Text: [facility] # [id number] , date shipped out 01-10-25 Fed ex only Tracking mailout: [id number] Tracking return: [id number] [facility] 01-09-2025 Telephone encounter Note [facility] Ambulatory Pharmacy Anticoagulation Clinic Anticoagulation Episode Summary Anticoagulation Care Providers Provider Role Specialty Phone number Tien Serrano MD Referring Family Medicine [phone] Wilmer Morley is a 84 year old [...] Mon; 5 mg all other days Sent [facility] message Advised patient to continue current weekly dose as noted above Next INR check due on 01/23/2025 Namita Gee RPh Clinical Pharmacist, Pharmacy Anticoagulation Clinic Pharmacy Anticoagulation Clinic Pager: [phone]. [facility] 01-09-2025 Miscellaneous Notes [facility] Ambulatory Pharmacy Anticoagulation Clinic Anticoagulation Episode Summary Anticoagulation Care Providers Provider Role Specialty Phone number Tien Serrano MD Referring Family Medicine [phone] Wilmer Morley is a 84 year old [...] Mon; 5 mg all other days Sent [facility] message Advised patient to continue current weekly dose as noted above Next INR check due on 01/23/2025 Namita Gee RPh Clinical Pharmacist, Pharmacy Anticoagulation Clinic Pharmacy Anticoagulation Clinic Pager: [phone]. documented in this encounter [facility] 01-02-2025 Telephone encounter Note The following approved medication requests have been transmitted electronically. Requested Prescriptions Pending Prescriptions Disp Refills doxazosin (CARDURA) 1 mg tablet 90 tablet 3 Sig: Take 1 tablet by mouth daily at bedtime. Alejandrina Quigley APRN.CNP [facility] 01-02-2025 Miscellaneous Notes The following approved [...] AM documented in this encounter [facility] 01-02-2025 Telephone encounter Note Prescription Refill [...] January 02, 2025 11:23 AM [facility] 12-22-2024 Telephone encounter Note [facility] Ambulatory Pharmacy Anticoagulation Clinic Anticoagulation Episode Summary Anticoagulation Care Providers Provider Role Specialty Phone number Tien Serrano MD Referring Family Medicine [phone] Wilmer Morley is a 83 year old [...] ALLERGIES No Known Allergies 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: shelter (current) use of anticoagulants History of dvt (deep vein thrombosis) Anticoagulation Episode Summary Current INR goal: 2.0-3.0 Assessment: INR result of 3.0 is therapeutic Plan: Current Warfarin Dosing As of 12/22/2024 Full warfarin instructions: 7.5 mg every Mon; 5 mg all other days Sent [facility] message Advised patient to continue current weekly dose as noted above Next home INR check scheduled on 01/04/2025 Patient advised to call the PAC with any medication changes, bleeding/bruising concerns, recent changes in vitamin k consumption, if any procedures are coming up, if they have been ill or in the hospital, and if they have missed any doses of warfarin. Jinny Shah [facility] Clinical Pharmacist, Pharmacy Anticoagulation Clinic Pharmacy Anticoagulation Clinic Pager: [phone]. 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 Jinny Shah [facility] Clinical Pharmacist, Pharmacy Anticoagulation Clinic Pharmacy Anticoagulation Clinic Pager: [phone]. documented in this encounter [facility] 12-20-2024 Note HNO ID: [id number] Author: MELQUIADES DEL VALLE APRN.FOLDER OPERATOR Service: ? Author Type: Nurse Practitioner Type: Progress Notes Filed: 01/13/2025 16:38 Note Text: December 20, 2024 Standing PSG Orders signed in the last 90 days None Future PSG Orders signed in the last 90 days Ordered Auth. provider HOME SLEEP APNEA TEST (HSAT) [[id number]] 12/07/24 Tien Serrano MD Assoc. diagnoses: MARY [...] agree to the plan. Melquiades Del Valle APRN.FOLDER OPERATOR 2:57 PM, 12/20/2024 [facility] 12-20-2024 Note HNO ID: [id number] Author: ?, ?, ? Service: ? Author Type: ? Type: Progress Notes Filed: 01/13/2025 16:38 Note Text: December 20, 2024 An order has been received for Home Sleep Apnea Test (HSAT) from Tien Sweeney a B. [facility] Staff. Visit prep complete. Comments :No The sleep study is scheduled for 01/11. Insurance: Payor: [employer] MEDICARE / Plan: [employer] MEDICARE PPO / Product Type: PPO / Payer/Plan Subscr Sex Relation Sub. Ins. ID Effective Group Num 1. [employer] MEDICAR* MILLIWILMER Dian 1940 Male Self [id number] [birth year] [id number] Trista Thomas [facility] 12-07-2024 Telephone encounter Note [facility] Ambulatory Pharmacy Anticoagulation Clinic Anticoagulation Episode Summary Anticoagulation Care Providers Provider Role Specialty Phone number Tien Serrano MD Referring Family Medicine [phone] Wilmer Dian Morley is a 83 year [...] ALLERGIES No Known Allergies 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: shelter (current) use of anticoagulants Atrial fibrillation, unspecified [...] Pharmacy Anticoagulation Clinic Pharmacy Anticoagulation Clinic Pager: [phone]. 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 documented in this encounter [facility] 12-07-2024 Note HNO ID: [id number] Author: TIEN SERRANO MD Service: ? 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 2. Atrial fibrillation, unspecified type ([facility]) (I48.91) - Recent echocardiogram shows no significant changes over the last three years; left ventricular function remains stable. - Current heart rate controlled with atenolol, but patient reports fatigue and low heart rate in the 40s. - Discussed potential for ablation with presser hand Dr. Frank. - Continue current medication regimen; monitor heart rate and symptoms. 3. Essential hypertension, benign (I10) - Blood pressure well-controlled with recent readings under 120/50-60 mmHg. - Recent medication adjustments by presser hand, including discontinuation of Norvasc. - Continue monitoring blood pressure at home. 4. Chronic obstructive pulmonary disease, unspecified COPD type ([facility]) (J44.9) - Recent medication adjustments by Dr. Griffin have improved symptoms; no current wheezing. - Continue current medication regimen. 5. Stage 3a chronic kidney disease ([facility]) (N18.31) - Kidney function stable but requires monitoring due to recent initiation of Lasix 40 mg daily. - Ordered blood work to monitor kidney function, electrolytes, and magnesium levels. 6. Hyperglycemia (R73.9) - No current issues with hyperglycemia reported. 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 8. History of DVT (deep vein thrombosis) (Z86.718) - No new DVT events reported. 9. Pulmonary HTN ([facility]) (I27.20) - No worsening symptoms reported. - Continue current management. 10. Congestive heart failure, unspecified HF chronicity, unspecified heart failure type ([facility]) (I50.9) - Recent BNP elevated at 2,170 pg/mL. - No worsening edema reported. - Continue current management and follow-up with presser hand. 11. MARY BETH (obstructive sleep apnea) (G47.33) - Symptoms of snoring and daytime fatigue reported. - Ordered home sleep study to evaluate for obstructive sleep apnea. (See patient after visit summary for additional instructions to patient) Tien Serrano MD Recording using [employer] software for draft documentation of the visit was discussed with the patient/authorized technical sales representatives; all questions welcomed and answered. Patient/authorized technical sales representatives agreed to proceed documented in this encounter [facility] 12-07-2024 Instructions Tien Serrano MD - 12/07/2024 9:31 AM EDT - Take atenolol exactly as prescribed by your presser hand and do not restart Norvasc. - Continue [...] Frank. documented in this encounter [facility] 11-28-2024 Telephone encounter Note The following approved medication requests have been transmitted electronically. Requested Prescriptions Pending Prescriptions Disp Refills sertraline (ZOLOFT) 100 mg tablet 90 tablet 1 Sig: Take 1 tablet by mouth once daily. Alejandrina Quigley APRN.CNP [facility] 11-28-2024 Miscellaneous Notes The following approved [...] PM documented in this encounter [facility] 11-28-2024 Telephone encounter Note Prescription Refill [...] November 28, 2024 5:52 PM [facility] 11-22-2024 Telephone encounter Note [facility] Ambulatory Pharmacy Anticoagulation Clinic Anticoagulation Episode Summary Anticoagulation Care Providers Provider Role Specialty Phone number Tien Serrano MD Referring Family Medicine [phone] Wilmer Morley is a 83 year old [...] Mon; 5 mg all other days Sent [facility] message Advised patient to continue current weekly [...] Pharmacy Anticoagulation Clinic Pharmacy Anticoagulation Clinic Pager: [phone]. [facility] 11-22-2024 Miscellaneous Notes [facility] Ambulatory Pharmacy Anticoagulation Clinic Anticoagulation Episode Summary Anticoagulation Care Providers Provider Role Specialty Phone number Tien Serrano MD Referring Family Medicine [phone] Wilmer Morley is a 83 year old [...] Mon; 5 mg all other days Sent [facility] message Advised patient to continue current weekly [...] Pharmacy Anticoagulation Clinic Pharmacy Anticoagulation Clinic Pager: [phone]. documented in this encounter [facility] 11-14-2024 History of Present illness Narrative Images from the original note were not included. . 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 Author Type: Physician Type: Progress Notes Filed: 11/14/2024 10:27 Note Text: . Respiratory Dry Prong Note Patient name: Wilmer Morley PCP: Tien [...] k/uL 1.39 Monocytes % % 9.3 Abs Louisa <0.87 k/uL 0.62 Eosinophils % % 4.4 [...] (HCC) 04/08/2018 COPD (more content not included)... [facility] 11-08-2024 Telephone encounter Note Patient notified of provider plan and is agreeable. Stephany Stein MA November 08, 2024 2:45 PM [facility] 11-08-2024 Miscellaneous Notes Patient notified of [...] pound. Printed lab results and faxed to [phone] as requested. Message left for return call. Angie Jean MA His labs are stable. His bnp is up a little higher. Verify with him but I think he is seeing his presser hand, Dr Frank in [place] this week? If he is, lets fax to him. Verify how feeling, any worsening swelling or shortness of breath? documented in this encounter [facility] 11-08-2024 Telephone encounter Note Ok. Can take a lasix today and keep appt with Dr Frank in tomorrow. Let me know what he says [facility] 11-08-2024 Telephone encounter Note Patient returned call and went over results, notes from Dr Serrano with understanding. Patient said yes, appt is 11/09/2024 at 9 am. He is feeling the same with the shortness of breath, no increase in swelling. His weight is stable within a pound. Printed lab results and faxed to [phone] as requested. [facility] 11-08-2024 Telephone encounter Note Message left for return call. Angie Jean MA [facility] 11-08-2024 Telephone encounter Note His labs are stable. His bnp is up a little higher. Verify with him but I think he is seeing his presser hand, Dr Frank in [place] this week? If he is, lets fax to him. Verify how feeling, any worsening swelling or shortness of breath? [facility] 11-07-2024 Telephone encounter Note Prescription Refill [...] November 07, 2024 5:35 PM [facility] 11-07-2024 Miscellaneous Notes Prescription Refill Information [...] PM documented in this encounter [facility] 11-07-2024 Telephone encounter Note Prescription Refill [...] November 07, 2024 3:39 PM [facility] 11-07-2024 Miscellaneous Notes Prescription Refill Information [...] PM documented in this encounter [facility] 11-07-2024 Telephone encounter Note [facility] Ambulatory Pharmacy Anticoagulation Clinic Anticoagulation Episode Summary Anticoagulation Care Providers Provider Role Specialty Phone number Tien Serrano MD Referring Family Medicine [phone] Wilmer Morley is a 83 year old [...] Mon; 5 mg all other days Sent [facility] message Advised patient to continue current weekly dose as noted above Next INR check due on 11/21/2024 Namita Gee RPh Clinical Pharmacist, Pharmacy Anticoagulation Clinic Pharmacy Anticoagulation Clinic Pager: [phone]. [facility] 11-07-2024 Miscellaneous Notes [facility] Ambulatory Pharmacy Anticoagulation Clinic Anticoagulation Episode Summary Anticoagulation Care Providers Provider Role Specialty Phone number Tien Serrano MD Referring Family Medicine [phone] Wilmer Morley is a 83 year old [...] Thu; 5 mg all other days Sent [facility] message Advised patient to continue current weekly dose as noted above Next INR check due on 11/21/2024 Namita Gee RPh Clinical Pharmacist, Pharmacy Anticoagulation Clinic Pharmacy Anticoagulation Clinic Pager: [phone]. documented in this encounter [facility] 11-02-2024 Instructions Tien Serrano MD - 11/02/2024 11:16 AM EDT Get labs on Thursday. Hold on further lasix unless we tell you to use it. Weigh daily and call if you gain more than three or four lbs in a 24 hours. Call if more short of breath or edema. documented in this encounter [facility] 11-02-2024 Note HNO ID: [id number] Author: TIEN SERRANO MD Service: ? Author [...] without alteration from previous ov: Win[place] in [place]. Had elected initially not see pulmonary. Had [...] Abs Lymph 1.00 - 4.00 k/uL 1.39 Louisa% % 9.3 Abs Louisa <0.87 k/uL 0.62 Eosin% % 4.4 Abs [...] veins Other and (more content not included)... [facility] 11-02-2024 History of Present illness Narrative Patient [...] without alteration from previous ov: [place] in [place]. Had elected initially not see pulmonary. 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 Hold on it giving his assisted, given his ckd. . Will not use [...] MD documented in this encounter [facility] 10-28-2024 Telephone encounter Note Cardio is scheduled November 09. He is already scheduled with us next week. Verbalizes understanding of instructions. [facility] 10-28-2024 Miscellaneous Notes Cardio is scheduled [...] in. documented in this encounter [facility] 10-28-2024 Telephone encounter Note His bnp or chf test is up some which can cause shortness of breath. Add lasix 20 mg a day and follow up in one week. When does he see cardiology next? Check bmp when he comes in. 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 documented in this encounter [facility] 10-11-2024 History of Present illness Narrative [...] PATIENT PRESENTS WITH AN IMPLANTABLE OR ATTACHED CLINICAL NURSING ASSISTANT: No RADIOLOGY DEPARTMENT: General X-ray: Exam(s) Completed: Chest X-Ray PERIPHERAL IV DATA: Not applicable SIGNED BY: RT Duc(R) October 11, 2024 11:01 AM documented in this encounter [facility] 10-11-2024 Note HNO ID: [id number] Author: ERIN POWER RT (R) Service: Radiology [...] PATIENT PRESENTS WITH AN IMPLANTABLE OR ATTACHED CLINICAL NURSING ASSISTANT: No RADIOLOGY DEPARTMENT: General X-ray: Exam(s) Completed: Chest X-Ray PERIPHERAL IV DATA: Not applicable SIGNED BY: RT Duc(Verónica) October 11, 2024 11:01 AM [facility] 10-10-2024 Note HNO ID: [id number] Author: TIEN SERRANO MD Service: ? Author Type: Physician Type: Progress Notes Filed: 10/10/2024 19:47 Note Text: Patient presents with: Consult: Would like to see pulm. Had testing done in Feb. Breathing has gotten worse but just got back from [facility] HPI: Patient presents today for office visit for follow up. [place] in [place]. Had elected initially not see pulmonary. 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 [facility] 10-10-2024 History of Present illness Narrative Patient presents with: Consult: Would like to see pulm. Had testing done in Feb. Breathing has gotten worse but just got back from [facility] HPI: Patient presents today for office visit for follow up. [place] in [place]. Had elected initially not see pulmonary. 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 Test inr at the end of the week. 10. History of DVT (deep vein thrombosis) - ICD9: V12.51, ICD10: Z86.718 - up to date on testing. 11. shelter 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 - [...] MD documented in this encounter [facility] 10-10-2024 Telephone encounter Note [facility] Ambulatory Pharmacy Anticoagulation Clinic Anticoagulation Episode Summary Anticoagulation Care Providers Provider Role Specialty Phone number iTen Serrano MD Referring Family [facility] [phone] Wilmer Morley is a 83 year old [...] Pharmacy Anticoagulation Clinic Pharmacy Anticoagulation Clinic Pager: [phone]. [facility] 10-10-2024 Miscellaneous Notes [facility] Ambulatory Pharmacy Anticoagulation Clinic Anticoagulation Episode Summary Anticoagulation Care Providers Provider Role Specialty Phone number Tien Serrano MD Referring Family Medicine [phone] Wilmer Morley is a 83 year old [...] Pharmacy Anticoagulation Clinic Pharmacy Anticoagulation Clinic Pager: [phone]. Summer from [employer] calling to report the patient's INR result 10/08. PT INR (no units) Date Value 09/16/2021 2.9 09/02/2021 3.2 06/06/2021 2.5 [employer]otel INR Home Coagu[employer]k (no units) Date Value 10/08/2024 1.6 09/22/2024 2.7 09/06/2024 2.4 Ivania Villalobos RN Pharmacy Anticoagulation Clinic documented in this encounter [facility] 10-10-2024 Telephone encounter Note Summer from [employer] calling to report the patient's INR result 10/08. PT INR (no units) Date Value 09/16/2021 2.9 09/02/2021 3.2 06/06/2021 2.5 biotel INR Home CoaguChek (no units) Date Value 10/08/2024 1.6 09/22/2024 2.7 09/06/2024 2.4 Ivania Villalobos RN Pharmacy Anticoagulation Clinic [facility] 10-04-2024 Telephone encounter Note Patient MyChart message requesting the following refill Refill(s) Requested: Requested Prescriptions Pending Prescriptions Disp Refills flecainide (TAMBOCOR) 100 mg tablet 180 tablet 3 Sig: Take 1 tablet by mouth two times a day. ALLERGIES No Known Allergies (home) [phone] (cell) Last Office Visit Date: 05/02/2024 Last [facility] Visit: Visit date not found Future Appointment: 10/10/2024 The patients preferred pharmacy has been captured for this encounter? yes Request is for script(s) to be escript to pharmacy. Heidy Benavides LPN [facility] 10-04-2024 Miscellaneous Notes Patient [employer] message requesting the following refill Refill(s) Requested: Requested Prescriptions Pending Prescriptions Disp Refills flecainide (TAMBOCOR) 100 mg tablet 180 tablet 3 Sig: Take 1 tablet by mouth two times a day. ALLERGIES No Known Allergies (home) [phone] (cell) Last Office Visit Date: 05/02/2024 Last [facility] Visit: Visit date not found Future Appointment: 10/10/2024 The patients preferred pharmacy has been captured for this encounter? yes Request is for script(s) to be escript to pharmacy. 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 documented in this encounter [facility] 09-06-2024 Miscellaneous Notes [facility] Ambulatory Pharmacy Anticoagulation Clinic Anticoagulation Episode Summary Anticoagulation Care Providers Provider Role Specialty Phone number Tien Serrano MD Referring Family Medicine [phone] Wilmer Morley is a 83 year old [...] Mon; 5 mg all other days Sent [facility] message Advised patient to continue current weekly [...] Pharmacy Anticoagulation Clinic Pharmacy Anticoagulation Clinic Pager: [phone]. documented in this encounter [facility] 09-06-2024 Telephone encounter Note [facility] Ambulatory Pharmacy Anticoagulation Clinic Anticoagulation Episode Summary Anticoagulation Care Providers Provider Role Specialty Phone number Tien Serrano MD Referring Family Medicine [phone] Wilmer Morley is a 83 year old [...] Mon; 5 mg all other days Sent [facility] message Advised patient to continue current weekly [...] Pharmacy Anticoagulation Clinic Pharmacy Anticoagulation Clinic Pager: [phone]. [facility] 08-19-2024 Telephone encounter Note Prescription Refill [...] August 19, 2024 10:12 AM [facility] 08-19-2024 Miscellaneous Notes Prescription Refill Information [...] AM documented in this encounter [facility] 08-17-2024 Telephone encounter Note [facility] Ambulatory Pharmacy Anticoagulation Clinic Anticoagulation Episode Summary Anticoagulation Care Providers Provider Role Specialty Phone number Tien Serrano MD Referring Family Medicine [phone] Wilmer Morley is a 83 year old [...] ALLERGIES No Known Allergies 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 [facility] 08-17-2024 Miscellaneous Notes [facility] Ambulatory Pharmacy Anticoagulation Clinic Anticoagulation Episode Summary Anticoagulation Care Providers Provider Role Specialty Phone number Tien Serrano MD Referring Family Medicine [phone] Wilmer Morley is a 83 year old [...] ALLERGIES No Known Allergies 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: shelter (current) use of anticoagulants Atrial fibrillation, unspecified type (hcc) History of dvt (deep vein thrombosis) Anticoagulation Episode Summary Current INR goal: 2.0-3.0 Assessment: INR result of 2.0 is therapeutic Plan: Current Warfarin Dosing As of 08/17/2024 Full warfarin instructions: 7.5 mg every Mon; 5 mg all other days Sent [facility] message Advised patient to continue current weekly [...] Pharmacy Anticoagulation Clinic Pharmacy Anticoagulation Clinic Pager: [phone]. documented in this encounter [facility] 08-02-2024 Telephone encounter Note [facility] Ambulatory Pharmacy Anticoagulation Clinic Anticoagulation Episode Summary Anticoagulation Care Providers Provider Role Specialty Phone number Tien Serrano MD Referring Family Medicine [phone] Wilmer Morley is a 83 year old [...] Mon; 5 mg all other days Sent [facility] message Advised patient to continue current weekly [...] Pharmacy Anticoagulation Clinic Pharmacy Anticoagulation Clinic Pager: [phone]. [facility] 08-02-2024 Miscellaneous Notes [facility] Ambulatory Pharmacy Anticoagulation Clinic Anticoagulation Episode Summary Anticoagulation Care Providers Provider Role Specialty Phone number Tien Serrano MD Referring Family Medicine [phone] Wilmer Morley is a 83 year old [...] Mon; 5 mg all other days Sent [facility] message Advised patient to continue current weekly [...] Pharmacy Anticoagulation Clinic Pharmacy Anticoagulation Clinic Pager: [phone]. documented in this encounter [facility] 07-15-2024 Telephone encounter Note [facility] Ambulatory Pharmacy Anticoagulation Clinic Anticoagulation Episode Summary Anticoagulation Care Providers Provider Role Specialty Phone number Tien Serrano MD Referring Family Medicine [phone] Wilmer Morley is a 83 year old [...] Pharmacy Anticoagulation Clinic Pharmacy Anticoagulation Clinic Pager: [phone]. [facility] 07-15-2024 Miscellaneous Notes [facility] Ambulatory Pharmacy Anticoagulation Clinic Anticoagulation Episode Summary Anticoagulation Care Providers Provider Role Specialty Phone number Tien Serrano MD Referring Family Medicine [phone] Wilmer Morley is a 83 year old [...] Pharmacy Anticoagulation Clinic Pharmacy Anticoagulation Clinic Pager: [phone]. 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 [facility] 06-29-2024 Miscellaneous Notes [facility] Ambulatory Pharmacy Anticoagulation Clinic Anticoagulation Episode Summary Anticoagulation Care Providers Provider Role Specialty Phone number Tien Serrano MD Referring Family Medicine [phone] Wilmer Morley is a 83 year old [...] ALLERGIES No Known Allergies 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: shelter (current) use of anticoagulants Atrial fibrillation, unspecified [...] Pharmacy Anticoagulation Clinic Pharmacy Anticoagulation Clinic Pager: [phone]. documented in this encounter [facility] 06-27-2024 Telephone encounter Note Patient's calls and states that [employer] shipped out medications to [place] address and not where they currently are living. states that she talked to [email or web address] and they are going to need a [...] June 27, 2024 12:05 PM [facility] 06-27-2024 Miscellaneous Notes Patient's calls and states that [employer] shipped out medications to [place] address and not where they currently are living. states that she talked to [email or web address] and they are going to need a [...] PM documented in this encounter [facility] 06-14-2024 Telephone encounter Note [facility] Ambulatory Pharmacy Anticoagulation Clinic Anticoagulation Episode Summary Anticoagulation Care Providers Provider Role Specialty Phone number Tien Serrano MD Referring Family Medicine [phone] Wilmer Morley is a 83 year old [...] Pharmacy Anticoagulation Clinic Pharmacy Anticoagulation Clinic Pager: [phone]. [facility] 06-14-2024 Miscellaneous Notes [facility] Ambulatory Pharmacy Anticoagulation Clinic Anticoagulation Episode Summary Anticoagulation Care Providers Provider Role Specialty Phone number Tien Serrano MD Referring Family Medicine [phone] Wilmer Morley is a 83 year old [...] Pharmacy Anticoagulation Clinic Pharmacy Anticoagulation Clinic Pager: [phone]. documented in this encounter [facility] 06-09-2024 Telephone encounter Note Prescription Refill [...] June 09, 2024 2:10 PM [facility] 06-09-2024 Miscellaneous Notes Prescription Refill Information [...] PM documented in this encounter [facility] 05-24-2024 Telephone encounter Note [facility] Ambulatory Pharmacy Anticoagulation Clinic Anticoagulation Episode Summary Anticoagulation Care Providers Provider Role Specialty Phone number Tien Serrano MD Referring Family Medicine [phone] Wilmer Morley is a 83 year old [...] Pharmacy Anticoagulation Clinic Pharmacy Anticoagulation Clinic Pager: [phone]. [facility] 05-24-2024 Miscellaneous Notes [facility] Ambulatory Pharmacy Anticoagulation Clinic Anticoagulation Episode Summary Anticoagulation Care Providers Provider Role Specialty Phone number Tien Serrano MD Referring Family Medicine [phone] Wilmer Morley is a 83 year old [...] Pharmacy Anticoagulation Clinic Pharmacy Anticoagulation Clinic Pager: [phone]. documented in this encounter [facility] 05-09-2024 Telephone encounter Note [facility] Ambulatory Pharmacy Anticoagulation Clinic Anticoagulation Episode Summary Anticoagulation Care Providers Provider Role Specialty Phone number Tien Serrano MD Referring Family Medicine [phone] Wlimer Morley is a 83 year old year [...] Fri; 5 mg all other days Sent [facility] message Advised patient to continue current weekly dose as noted above Next INR check due on 05/23/2024 Namita Gee RPh Clinical Pharmacist, Pharmacy Anticoagulation Clinic Pharmacy Anticoagulation Clinic Pager: [phone]. [facility] 05-09-2024 Miscellaneous Notes [facility] Ambulatory Pharmacy Anticoagulation Clinic Anticoagulation Episode Summary Anticoagulation Care Providers Provider Role Specialty Phone number Tien Serrano MD Referring Family Medicine [phone] Wilmer Morley is a 83 year old [...] Fri; 5 mg all other days Sent [facility] message Advised patient to continue current weekly dose as noted above Next INR check due on 05/23/2024 Namita Gee RPh Clinical Pharmacist, Pharmacy Anticoagulation Clinic Pharmacy Anticoagulation Clinic Pager: [phone]. documented in this encounter [facility] 05-02-2024 Note HNO ID: [id number] Author: TIEN SERRANO MD Service: ? Author [...] discussed can be a normal finding. 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 [facility] 05-02-2024 History of Present illness Narrative Patient [...] discussed can be a normal finding. 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 [...] Father CHF Heart Mother CHF Heart Brother [place] - rheumatic fever Cancer Brother gastric Asthma [...] prn. documented in this encounter [facility] 04-20-2024 Telephone encounter Note [facility] Ambulatory Pharmacy Anticoagulation Clinic Anticoagulation Episode Summary Anticoagulation Care Providers Provider Role Specialty Phone number Tien Serrano MD Referring Family Medicine [phone] Wilmer Morley is a 83 year old [...] ALLERGIES No Known Allergies 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: shelter (current) use of anticoagulants Atrial fibrillation, unspecified type (hcc) History of dvt (deep vein thrombosis) Anticoagulation Episode Summary Current INR goal: 2.0-3.0 Assessment: INR result of 2.0 is therapeutic Plan: Current Warfarin Dosing As of 04/20/2024 Full warfarin instructions: 7.5 mg every Mon, Fri; 5 mg all other days Sent [facility] message Advised patient to continue current weekly [...] Pharmacy Anticoagulation Clinic Pharmacy Anticoagulation Clinic Pager: [phone]. [facility] 04-20-2024 Miscellaneous Notes [facility] Ambulatory Pharmacy Anticoagulation Clinic Anticoagulation Episode Summary Anticoagulation Care Providers Provider Role Specialty Phone number Tien Serrano MD Referring Family Medicine [phone] Wilmer Morley is a 83 year old [...] ALLERGIES No Known Allergies 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: shelter (current) use of anticoagulants Atrial fibrillation, unspecified type (hcc) History of dvt (deep vein thrombosis) Anticoagulation Episode Summary Current INR goal: 2.0-3.0 Assessment: INR result of 2.0 is therapeutic Plan: Current Warfarin Dosing As of 04/20/2024 Full warfarin instructions: 7.5 mg every Mon, Fri; 5 mg all other days Sent [facility] message Advised patient to continue current weekly [...] Pharmacy Anticoagulation Clinic Pharmacy Anticoagulation Clinic Pager: [phone]. documented in this encounter [facility] 04-01-2024 Telephone encounter Note Prescription Refill [...] April 01, 2024 9:40 AM [facility] 04-01-2024 Miscellaneous Notes Prescription Refill Information [...] AM documented in this encounter [facility] 03-31-2024 Telephone encounter Note [facility] Ambulatory Pharmacy Anticoagulation Clinic Anticoagulation Episode Summary Anticoagulation Care Providers Provider Role Specialty Phone number Tien Serrano MD Referring Family Medicine [phone] Wilmer Morley is a 83 year old [...] ALLERGIES No Known Allergies 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: shelter (current) use of anticoagulants History of dvt (deep vein thrombosis) Anticoagulation Episode Summary Current INR goal: 2.0-3.0 Assessment: INR result of 2.6 is therapeutic Plan: Current Warfarin Dosing As of 03/31/2024 Full warfarin instructions: 7.5 mg every Mon, Fri; 5 mg all other days Sent [facility] message Advised patient to continue current weekly [...] Pharmacy Anticoagulation Clinic Pharmacy Anticoagulation Clinic Pager: [phone]. [facility] 03-31-2024 Miscellaneous Notes [facility] Ambulatory Pharmacy Anticoagulation Clinic Anticoagulation Episode Summary Anticoagulation Care Providers Provider Role Specialty Phone number Tien Serrano MD Referring Family Medicine [phone] Wilmer Morley is a 83 year old [...] ALLERGIES No Known Allergies 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: shelter (current) use of anticoagulants History of dvt (deep vein thrombosis) Anticoagulation Episode Summary Current INR goal: 2.0-3.0 Assessment: INR result of 2.6 is therapeutic Plan: Current Warfarin Dosing As of 03/31/2024 Full warfarin instructions: 7.5 mg every Mon, Fri; 5 mg all other days Sent [facility] message Advised patient to continue current weekly dose as noted above Next home INR check scheduled on 04/14/2024 Patient advised to call the PAC with any medication changes, bleeding/bruising concerns, recent changes in vitamin k consumption, if any procedures are coming up, if they have been ill or in the hospital, and if they have missed any doses of warfarin. Jinny Shah [facility] Clinical Pharmacist, Pharmacy Anticoagulation Clinic Pharmacy Anticoagulation Clinic Pager: [phone]. documented in this encounter [facility] 03-30-2024 History of Present illness Narrative Program_ID:[id number] Access Code: [email or web address] URL: [email or web address] m/ Date: 03-30-2024 Prepared By: Michelle Gomez [...] treatment included: Therapeutic exercise, Neuromuscular re-education, and Self-chcf management. Goals for Episode of Care: created [...] and dynamic activities. Patient education as noted. Self-Alf Management: 1: advised that pt. take inhaler as Rx'd for the benefit of improving airway dialation 2: discussed that symptoms that increase with exertion are to be discussed with presser hand Skilled Intervention: Skilled judgment in the selection [...] PT documented in this encounter [facility] 03-30-2024 Note HNO ID: [id number] Author: MICHELLE GOMEZ PT Service: ? Author [...] treatment included: Therapeutic exercise, Neuromuscular re-education, and Self-chcf management. Goals for Episode of Care: created [...] and dynamic activities. Patient education as noted. Self-Alf Management: 1: advised that pt. take inhaler as Rx'd for the benefit of improving airway dialation 2: discussed that symptoms that increase with exertion are to be discussed with presser hand Skilled Intervention: Skilled judgment in the selection [...] Stop Time : 1006 Michelle Gomez, PT [facility] 03-23-2024 Note HNO ID: [id number] Author: KATY GALDAMEZ APRN.FOLDER OPERATOR Service: ? Author Type: Nurse Practitioner Type: [...] 10 years ESOPHAGOGASTRODUODENOSCOPY TRANSORAL DIAGNOSTIC N/A [facility] basal [...] Father CHF Heart Mother CHF Heart Brother [place] - rheumatic fever Cancer Brother gastric Asthma [...] syndrome with di (more content not included)... [facility] 03-23-2024 History of Present illness Narrative This [...] FLX DX W/COLLJ SPEC WHEN PFRMD 03/09/2018 [facility] 10 years ESOPHAGOGASTRODUODENOSCOPY TRANSORAL DIAGNOSTIC N/A 08/16/2020 [facility] OF 2010 basal [...] Father CHF Heart Mother CHF Heart Brother [place] - rheumatic fever Cancer Brother gastric Asthma [...] as needed for worsening/no improvement. Katy Galdamez APRN.FOLDER OPERATOR documented in this encounter [facility] 03-16-2024 Telephone encounter Note [facility] Ambulatory Pharmacy Anticoagulation Clinic Anticoagulation Episode Summary Anticoagulation Care Providers Provider Role Specialty Phone number iTen Serrano MD Referring Family Medicine [phone] Wilmer Morley is a 83 year old [...] ALLERGIES No Known Allergies 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: shelter (current) use of anticoagulants Atrial fibrillation, unspecified type (hcc) History of dvt (deep vein thrombosis) Anticoagulation Episode Summary Current INR goal: 2.0-3.0 Assessment: INR result of 2.6 is therapeutic Plan: Current Warfarin Dosing As of 03/16/2024 Full warfarin instructions: 7.5 mg every Mon, Fri; 5 mg all other days Sent [facility] message Advised patient to continue current weekly [...] Pharmacy Anticoagulation Clinic Pharmacy Anticoagulation Clinic Pager: [phone]. 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 documented in this encounter [facility] 03-16-2024 Note HNO ID: [id number] Author: MICHELLE GOMEZ, PT Service: ? Author [...] Patient to be seen for Therapeutic exercise (86394), Neuromuscular re-education (74698), Manual therapy (92574), Self-chcf management (04745), Gait Training (62068), Therapeutic activities (81672) PLAN FOR NEXT VISIT: NANDINI SUBJECTIVE: Pt. [...] with an (*). Patient education as noted. Self-Alf Management: 1: suggested hallway motion detector lights [...] daily living/home manage (more content not included)... [facility] 03-16-2024 History of Present illness Narrative Images [...] Patient to be seen for Therapeutic exercise (24156), Neuromuscular re-education (54987), Manual therapy (01922), Self-chcf management (51885), Gait Training (26634), Therapeutic activities (65171) PLAN FOR NEXT VISIT: NANDINI SUBJECTIVE: Pt. [...] with an (*). Patient education as noted. Self-Alf Management: 1: suggested hallway motion detector lights [...] PT documented in this encounter [facility] 03-03-2024 Telephone encounter Note [facility] Ambulatory Pharmacy Anticoagulation Clinic Anticoagulation Episode Summary Anticoagulation Care Providers Provider Role Specialty Phone number Tien Serrano MD Referring Family Medicine [phone] Wilmer Morley is a 83 year old [...] ALLERGIES No Known Allergies 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: shelter (current) use of anticoagulants History of dvt (deep vein thrombosis) Anticoagulation Episode Summary Current INR goal: 2.0-3.0 Assessment: INR result of 2.3 is therapeutic Plan: Current Warfarin Dosing As of 03/03/2024 Full warfarin instructions: 7.5 mg every Mon, Fri; 5 mg all other days Sent [facility] message Advised patient to continue current weekly dose as noted above Next home INR check scheduled on 03/16/2024 Jinny Shah RPh Clinical Pharmacist, Pharmacy Anticoagulation Clinic Pharmacy Anticoagulation Clinic Pager: [phone]. 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 documented in this encounter [facility] 02-29-2024 Note HNO ID: [id number] Author: MICHELLE GOMEZ PT Service: ? Author [...] with an (*). Patient education as noted. Self-Alf Management: 1: discussed how balance deficits can [...] Stop Time : 1306 Michelle Gomez, PT [facility] 02-29-2024 History of Present illness Narrative Episode [...] with an (*). Patient education as noted. Self-Alf Management: 1: discussed how balance deficits can [...] PT documented in this encounter [facility] 02-18-2024 Telephone encounter Note [facility] Ambulatory Pharmacy Anticoagulation Clinic Anticoagulation Episode Summary Anticoagulation Care Providers Provider Role Specialty Phone number Tien Serrano MD Referring Family Medicine [phone] Wilmer Morley is a 83 year old [...] ALLERGIES No Known Allergies 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: shelter (current) use of anticoagulants History of dvt (deep vein thrombosis) Anticoagulation Episode Summary Current INR goal: 2.0-3.0 Assessment: INR result of 2.5 is therapeutic Plan: Current Warfarin Dosing As of 02/18/2024 Full warfarin instructions: 7.5 mg every Mon, Fri; 5 mg all other days Sent [facility] message Advised patient to continue current weekly dose as noted above Next home INR check scheduled on 03/02/2024 Jinny Shah RPh Clinical Pharmacist, Pharmacy Anticoagulation Clinic Pharmacy Anticoagulation Clinic Pager: [phone]. [facility] 02-18-2024 Miscellaneous Notes [facility] Ambulatory Pharmacy Anticoagulation Clinic Anticoagulation Episode Summary Anticoagulation Care Providers Provider Role Specialty Phone number Tien Serrano MD Referring Family Medicine [phone] Wilmer Morley is a 83 year old [...] ALLERGIES No Known Allergies 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: shelter (current) use of anticoagulants History of dvt (deep vein thrombosis) Anticoagulation Episode Summary Current INR goal: 2.0-3.0 Assessment: INR result of 2.5 is therapeutic Plan: Current Warfarin Dosing As of 02/18/2024 Full warfarin instructions: 7.5 mg every Mon, Fri; 5 mg all other days Sent [facility] message Advised patient to continue current weekly dose as noted above Next home INR check scheduled on 03/02/2024 Jinny Shah [facility] Clinical Pharmacist, Pharmacy Anticoagulation Clinic Pharmacy Anticoagulation Clinic Pager: [phone]. documented in this encounter [facility] 02-15-2024 History of Present illness Narrative [...] with an (*). Patient education as noted. Self-Alf Management: 1: discussed difference between symptoms that [...] PT documented in this encounter [facility] 02-12-2024 Telephone encounter Note Pt called and is notified of providers results and instructions. Pt voices understanding. Lakisha Morales RN [facility] 02-12-2024 Miscellaneous Notes Pt called and is notified of providers results and instructions. Pt voices understanding. Lakisha Morales RN Pfts show moderate asthma/copd. Can cause breathing issues. Add albuterol prn and maintenance inhaler. To take daily documented in this encounter [facility] 02-12-2024 Telephone encounter Note Pfts show moderate asthma/copd. Can cause breathing issues. Add albuterol prn and maintenance inhaler. To take daily [facility] 02-11-2024 History of Present illness Narrative PULM FUNCTION: Provider: Tien Serrano MD Assisting Tech: Bhavya Montaño RPFT Spirometry w/BD: 1 LV - Box: 1 6 MW: 1 documented in this encounter [facility] 02-10-2024 History of Present illness Narrative [...] PATIENT PRESENTS WITH AN IMPLANTABLE OR ATTACHED CLINICAL NURSING ASSISTANT: No RADIOLOGY DEPARTMENT: General X-ray: Exam(s) Completed: Chest X-Ray PERIPHERAL IV DATA: Not applicable SIGNED BY: RT Duc(R) February 10, 2024 12:44 PM documented in this encounter [facility] 02-10-2024 History of Present illness Narrative [...] discussed can be a normal finding. 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 [...] Father CHF Heart Mother CHF Heart Brother [place] - rheumatic fever Cancer Brother gastric Asthma [...] weeks documented in this encounter [facility] 02-02-2024 History of Present illness Narrative [...] Planned: 6 Planned Treatment Interventions: Therapeutic exercise (90374), Neuromuscular re-education (21633), Manual therapy (30790), Therapeutic activities (77396), Self-chcf management (51247), Gait Training (48230), General Conditioning PLAN FOR NEXT VISIT: balance [...] Demonstration TREATMENT: PT Treatment Interventions: Therapeutic Exercise, Self-Alf Management Evaluation Self-Alf Management: 1: discussed negative vestibular testing with [...] PT documented in this encounter [facility] 01-30-2024 Telephone encounter Note Rx pending to correct pharmacy. Tra Foss LPN [facility] 01-30-2024 Miscellaneous Notes Rx pending to correct pharmacy. Tra Foss LPN documented in this encounter [facility] 01-29-2024 Telephone encounter Note The following approved medication requests have been transmitted electronically. Requested Prescriptions Pending Prescriptions Disp Refills flecainide (TAMBOCOR) 100 mg tablet 180 tablet 3 Sig: Take 1 tablet by mouth two times a day. Alejandrina Quigley APRN.CNP [facility] 01-29-2024 Miscellaneous Notes The following approved [...] AM documented in this encounter [facility] 01-29-2024 Telephone encounter Note Prescription Refill [...] January 29, 2024 10:20 AM [facility] 01-21-2024 Telephone encounter Note [facility] Ambulatory Pharmacy Anticoagulation Clinic Anticoagulation Episode Summary Anticoagulation Care Providers Provider Role Specialty Phone number Tien Serrano MD Referring Family Medicine [phone] Wilmer Morley is a 83 year old [...] ALLERGIES No Known Allergies 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: shelter (current) use of anticoagulants History of dvt (deep vein thrombosis) Anticoagulation Episode Summary Current INR goal: 2.0-3.0 Assessment: INR result of 2.2 is therapeutic Plan: Current Warfarin Dosing As of 01/21/2024 Full warfarin instructions: 7.5 mg every Mon, Fri; 5 mg all other days Sent [facility] message Advised patient to continue current weekly dose as noted above Next home INR check scheduled on 02/04/2024 Jinny Shah RPh Clinical Pharmacist, Pharmacy Anticoagulation Clinic Pharmacy Anticoagulation Clinic Pager: [phone]. 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 documented in this encounter [facility] 01-11-2024 Telephone encounter Note Prescription Refill [...] January 11, 2024 11:10 AM [facility] 01-11-2024 Miscellaneous Notes Prescription Refill Information [...] AM documented in this encounter [facility] 01-05-2024 Telephone encounter Note PAC received faxed request for office/clinical notes to continue home INR meter enrollment. Fax has been scanned into patient's chart and are located under 'Scanned Documents'. Will fax requested documents to [facility], as requested. Lakisha Avila CPhT (Blueprint Clerk) Pharmacy Anticoagulation Clinic [facility] 01-05-2024 Miscellaneous Notes PAC received faxed request for office/clinical notes to continue home INR meter enrollment. Fax has been scanned into patient's chart and are located under 'Scanned Documents'. Will fax requested documents to [facility], as requested. Lakisha Avila CPhT (Blueprint Clerk) Pharmacy Anticoagulation Clinic documented in this encounter [facility] 12-29-2023 History of Present illness Narrative [...] Father CHF Heart Mother CHF Heart Brother [place] - rheumatic fever Cancer Brother gastric Asthma [...] prn documented in this encounter [facility] 12-18-2023 Telephone encounter Note [facility] Ambulatory Pharmacy Anticoagulation Clinic Anticoagulation Episode Summary Anticoagulation Care Providers Provider Role Specialty Phone number Tien Serrano MD Referring Family Medicine [phone] Wilmer Morley is a 82 year old [...] Fri; 5 mg all other days Sent [facility] message Advised patient to continue current weekly dose as noted above Next home INR check scheduled on 01/01/2024 Arabella Lopez RPh Clinical Pharmacist, Pharmacy Anticoagulation Clinic Pharmacy Anticoagulation Clinic Pager: [phone]. [facility] 12-18-2023 Miscellaneous Notes [facility] Ambulatory Pharmacy Anticoagulation Clinic Anticoagulation Episode Summary Anticoagulation Care Providers Provider Role Specialty Phone number Tien Serrano MD Referring Family Medicine [phone] Wilmer Morley is a 82 year old [...] Fri; 5 mg all other days Sent [facility] message Advised patient to continue current weekly dose as noted above Next home INR check scheduled on 01/01/2024 Arabella Lopez RPh Clinical Pharmacist, Pharmacy Anticoagulation Clinic Pharmacy Anticoagulation Clinic Pager: [phone]. 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 documented in this encounter [facility] 11-27-2023 Telephone encounter Note [facility] Ambulatory Pharmacy Anticoagulation Clinic Anticoagulation Episode Summary Anticoagulation Care Providers Provider Role Specialty Phone number Tien Serrano MD Referring Family Medicine [phone] Wilmer Morley is a 82 year old [...] Pharmacy Anticoagulation Clinic Pharmacy Anticoagulation Clinic Pager: [phone]. [facility] 11-27-2023 Miscellaneous Notes [facility] Ambulatory Pharmacy Anticoagulation Clinic Anticoagulation Episode Summary Anticoagulation Care Providers Provider Role Specialty Phone number Tien Serrano MD Referring Family Medicine [phone] Wilmer Morley is a 82 year old [...] Pharmacy Anticoagulation Clinic Pharmacy Anticoagulation Clinic Pager: [phone]. PATIENT CALL Patient called call center regarding [...] 10/12/2023 2.6 Patient can be reached at [phone] to discuss Robel Stanford ([employer]) [facility] Ambulatory Pharmacy Anticoagulation Clinic Anticoagulation Episode Summary Anticoagulation Care Providers Provider Role Specialty Phone number Tien Serrano MD Referring Family Medicine [phone] Wilmer Morley is a 82 year old [...] Pharmacy Anticoagulation Clinic Pharmacy Anticoagulation Clinic Pager: [phone]. documented in this encounter [facility] 11-27-2023 Telephone encounter Note PATIENT CALL [...] 10/12/2023 2.6 Patient can be reached at [phone] to discuss Robel Stanford ([employer]) [facility] 11-27-2023 Telephone encounter Note [facility] Ambulatory Pharmacy Anticoagulation Clinic Anticoagulation Episode Summary Anticoagulation Care Providers Provider Role Specialty Phone number Tien Serrano MD Referring Family Medicine [phone] Wilmer Morley is a 82 year old [...] Pharmacy Anticoagulation Clinic Pharmacy Anticoagulation Clinic Pager: [phone]. [facility] 11-12-2023 Telephone encounter Note Patient was notified Lia Willard MA [facility] 11-12-2023 Miscellaneous Notes Patient was notified Lia Willard MA Kidney function still slightly up. Encourage fluids and recheck labs in a few weeks. documented in this encounter [facility] 11-12-2023 Telephone encounter Note Kidney function still slightly up. Encourage fluids and recheck labs in a few weeks. [facility] 11-11-2023 Nurse Note Ambulatory Ear Lavage Pre-treatment: No pre-treatment Treatment: Left ear Equipment and Irrigation solution and Volume used: Single use syringe with single use irrigation tip Return flow appearance: Clear Patient tolerated procedure: yes Tympanic membrane assessment: Tympanic membrane assessed by LIP pre and post procedure [facility] 11-11-2023 Nurse Note Ambulatory Ear Lavage Pre-treatment: No pre-treatment Treatment: Left ear Equipment and Irrigation solution and Volume used: Single use syringe with single use irrigation tip Return flow appearance: Clear Patient tolerated procedure: yes Tympanic membrane assessment: Tympanic membrane assessed by LIP pre and post procedure documented in this encounter [facility] 11-11-2023 History of Present illness Narrative [...] 10 years ESOPHAGOGASTRODUODENOSCOPY TRANSORAL DIAGNOSTIC N/A [facility] SPECIAL SURGERYMauro Garcia PAST SURGICAL 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 documented in this encounter [facility] 10-15-2023 Telephone encounter Note The following approved medication requests have been transmitted electronically. Requested Prescriptions Pending Prescriptions Disp Refills lisinopril (ZESTRIL) 10 mg tablet 90 tablet 1 Sig: Take 1 tablet by mouth once daily. sertraline (ZOLOFT) 100 mg tablet 90 tablet 1 Sig: Take 1 tablet by mouth once daily. Alejandrina Quigley APRN.CNS [facility] 10-15-2023 Miscellaneous Notes The following approved [...] LPN documented in this encounter [facility] 10-15-2023 Telephone encounter Note Patient has [...] Scheduled 11/11/23 Velma Gonzalez LPN [facility] 10-13-2023 Telephone encounter Note [facility] Ambulatory Pharmacy Anticoagulation Clinic Anticoagulation Episode Summary Anticoagulation Care Providers Provider Role Specialty Phone number Tien Serrano MD Referring Family Medicine [phone] Wilmer Morley is a 82 year old [...] Fri; 5 mg all other days Sent [facility] message Advised patient to continue current weekly dose as noted above Next home INR check scheduled on 10/27/2023 Arabella Lopez RPh Clinical Pharmacist, Pharmacy Anticoagulation Clinic Pharmacy Anticoagulation Clinic Pager: [phone]. [facility] 10-13-2023 Miscellaneous Notes [facility] Ambulatory Pharmacy Anticoagulation Clinic Anticoagulation Episode Summary Anticoagulation Care Providers Provider Role Specialty Phone number Tien Serrano MD Referring Family Medicine [phone] Wilmer Morley is a 82 year old [...] Fri; 5 mg all other days Sent [facility] message Advised patient to continue current weekly dose as noted above Next home INR check scheduled on 10/27/2023 Arabella Lopez RPh Clinical Pharmacist, Pharmacy Anticoagulation Clinic Pharmacy Anticoagulation Clinic Pager: [phone]. documented in this encounter [facility] 09-24-2023 Miscellaneous Notes [facility] Ambulatory Pharmacy Anticoagulation Clinic Anticoagulation Episode Summary Anticoagulation Care Providers Provider Role Specialty Phone number Tien Serrano MD Referring Family Medicine [phone] Wilmer Morley is a 82 year old [...] Pharmacy Anticoagulation Clinic Pharmacy Anticoagulation Clinic Pager: [phone]. documented in this encounter [facility] 09-24-2023 History of Past i llness [...] encounter (statuses as of 09/25/2023) [facility]04-03-2024 Miscellaneous Notes* Telephone Encounter - Bea Adan RPh - 09/09/2023 4:58 PM EDT [facility] Ambulatory Pharmacy Anticoagulation Clinic Anticoagulation Episode Summary Anticoagulation Care Providers Provider Role Specialty Phone number Tien Serrano MD Referring Family Medicine [phone] Wilmer Morley is a 82 year old [...] ALLERGIES No Known Allergies 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: shelter (current) use of anticoagulants Atrial fibrillation, unspecified type (hcc) History of dvt (deep vein thrombosis) Anticoagulation Episode Summary Current INR goal: 2.0-3.0 Assessment: INR result of 2.0 is therapeutic Plan: Current Warfarin Dosing As of 09/09/2023 Full warfarin instructions: 7.5 mg every Mon, Fri; 5 mg all other days Sent [facility] message Advised patient to continue current weekly dose as noted above Next home INR check scheduled on 09/23/2023 Bea Adan RPh Clinical Pharmacist, Pharmacy Anticoagulation Clinic Pharmacy Anticoagulation Clinic Pager: [phone]. 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 documented [facility] encounter[facility] History of Past illness Narrative* Problem [...] encounter (statuses as of 08/21/2023) [facility]02-21[facility] History of Past illness Narrative* Problem [...] encounter (statuses as of 07/29/2023) [facility]02-19-2024 Miscellaneous Notes* Telephone Encounter - Hanna Freitas Ma - 07/27/2023 9:23 AM EST Pt wrote in, in another mychart message that he changed Pharmacy Providers and needs Rx's sent [facility]. Patient has been identified by name [...] Freitas Ma. documented [facility] encounter[facility] History of Past illness Narrative* Problem [...] encounter (statuses as of 07/27/2023) [facility]02-06-2024 Miscellaneous Notes* Telephone Encounter - Arabella Lopez RPh - 07/14/2023 9:13 AM EST [facility] Ambulatory Pharmacy Anticoagulation Clinic Anticoagulation Episode Summary Anticoagulation Care Providers Provider Role Specialty Phone number Tien Serrano MD Referring Family Medicine [phone] Wilmer Morley is a 82 year old [...] Fri; 5 mg all other days Sent [facility] message Advised patient to continue current weekly dose as noted above Next home INR check scheduled on 07/28/2023 Arabella Lopez RPh Clinical Pharmacist, Pharmacy Anticoagulation Clinic Pharmacy Anticoagulation Clinic Pager: [phone]. documented in this encounterMer[facility] History of Past illness Narrative* Problem [...] encounter (statuses as of 07/14/2023) [facility]12-08-2023 History of Past illness Narrative* Problem [...] encounter (statuses as of 05/15/2023) [facility]11-09-2023 Miscellaneous Notes* Telephone Encounter - Jinny Shah, [facility] - 04/16/2023 1:24 PM EST [facility] Ambulatory Pharmacy Anticoagulation Clinic Anticoagulation Episode Summary Anticoagulation Care Providers Provider Role Specialty Phone number Tien Serrano MD Referring Family Medicine [phone] Wilmer Morley is a 82 year old [...] ALLERGIES No Known Allergies 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: shelter (current) use of anticoagulants History of dvt (deep vein thrombosis) Anticoagulation Episode Summary Current INR goal: 2.0-3.0 Assessment: INR result of 2.6 is therapeutic Plan: Current Warfarin Dosing As of 04/16/2023 Full warfarin instructions: 7.5 mg every Mon, Fri; 5 mg all other days Sent [facility] message Advised patient to continue current weekly dose as noted above Next home INR check scheduled on 05/07/2023 Jinny Shah RPh Clinical Pharmacist, Pharmacy Anticoagulation Clinic Pharmacy Anticoagulation Clinic Pager: [phone]. documented in this encounterMer[facility] History of Past illness Narrative* Problem Noted Date Diagnosed Date Resolved Date Hypertensive kidney disease with stage 3a chronic kidney disease 11/06/2021 10/31/2022 Change in bowel movement 01/21/201812/2020 Episodic lightheadedness 04/11/2015 Bilateral edema of lower extremity 04/11/2015 01/10/2016 Paroxysmal atrial fibrillation 03/19/2015 04/11/2015 Skin lesion 03/05/2010 12/20/2014 documented as of this encounter (statuses as of 04/17/2023) [facility]10[facility] Miscellaneous Notes* Telephone Encounter - Arabella Lopez RPh - 03/31/2023 1:41 PM EDT [facility] Ambulatory Pharmacy Anticoagulation Clinic Anticoagulation Episode Summary Anticoagulation Care Providers Provider Role Specialty Phone number Tien Serrano MD Referring Family Medicine [phone] Wilmer Morley is a 82 year old [...] Fri; 5 mg all other days Sent [facility] message Advised patient to continue current weekly dose as noted above Next home INR check scheduled on 04/14/2023 Arabella Lopez RPh Clinical Pharmacist, Pharmacy Anticoagulation Clinic Pharmacy Anticoagulation Clinic Pager: [phone]. documented in this encounterMer[facility] History of Past illness Narrative* Problem Noted Date Diagnosed Date Resolved Date Hypertensive kidney disease with stage 3a chronic kidney disease 11/06/2021 10/31/2022 Change in bowel movement 01/21/201812/2020 Episodic lightheadedness 04/11/2015 Bilateral edema of lower extremity 04/11/2015 01/10/2016 Paroxysmal atrial fibrillation 03/19/2015 04/11/2015 Skin lesion 03/05/2010 12/20/2014 documented as of this encounter (statuses as of 03/31/2023) [facility] History of Present illness Narrative* Paulino Ruiz PA-C - 03/27/2023 8:40 AM EDT 82 year old male with c/o here to review sertraline Feels like sertraline didn't kick in well, was impatient. Going to OR for winter. 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 Head with [facility] in [place] Last visit 2022: mild stable BP elevation [...] Abs Lymph 1.00 - 4.00 k/uL 1.21 Louisa% % 6.9 Abs [place] <0.87 k/uL 0.43 Eosin% % 0.8 Abs [...] Father CHF Heart Mother CHF Heart Brother [place] - rheumatic fever Cancer Brother gastric Asthma [...] Benign Moderate Mitral Regurgitation Moderate Tricuspid Regurgitation Long-Term (Current) Use of Anticoagulants Venous (Peripheral) Insufficiency History of Dvt (Deep Vein Thrombosis) Asymptomatic Lv Dysfunction Long-Term Current Use of Antiarrhythmic Medical Therapy Stage [...] - ICD9: 427.31, ICD10: I48.91 stable 4. 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 - ICD9: V58.61, [...] YR, HIGH DOSE, QUADRIVALENT (FLUZONE HIGH-DOSE) - [facility] COVID-19 VACCINE ( SEASON) AGE 12+ YR - RSV PRINTED PHARMACY INSTRUCTIONS Paulino Ruiz PA-C Some of this note may have been copied and pasted for the purpose of history context and comparisonand has been adjusted for changes in prior data. 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 Moderate mitral regurgitation Mitral valve disorders Moderate tricuspid regurgitation Diseases of tricuspid valve Asymptomatic LV dysfunction Heart disease, unspecified Venous (peripheral) insufficiency Unspecified venous (peripheral) insufficiency History of DVT (deep vein thrombosis) Personal history of venous thrombosis and embolism 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 Long-term (current) use of anticoagulants Generalized anxiety disorder Hyperglycemia Other abnormal glucose Encounter for immunization Need for other specified prophylactic vaccination against single bacterial disease documented in this encounter [facility] History of Past illness Narrative* Problem Noted Date Diagnosed Date Resolved Date Hypertensive kidney disease with stage 3a chronic kidney disease 11/06/2021 10/31/2022 Change in bowel movement 01/21/201812/2020 Episodic lightheadedness 04/11/2015 Bilateral edema of lower extremity 04/11/2015 01/10/2016 Paroxysmal atrial fibrillation 03/19/2015 04/11/2015 Skin lesion 03/05/2010 12/20/2014 documented as of this encounter (statuses as of 03/27/2023) [facility] History of Past illness Narrative* Problem Noted Date Diagnosed Date Resolved Date Hypertensive kidney disease with stage 3a chronic kidney disease 11/06/2021 10/31/2022 Change in bowel movement 01/21/201812/2020 Episodic lightheadedness 04/11/2015 Bilateral edema of lower extremity 04/11/2015 01/10/2016 Paroxysmal atrial fibrillation 03/19/2015 04/11/2015 Skin lesion 03/05/2010 12/20/2014 documented as of this encounter (statuses as of 03/14/2023) [facility] Miscellaneous Notes* Telephone Encounter - Jinny Shah, [facility] - 03/12/2023 3:25 PM EDT [facility] Ambulatory Pharmacy Anticoagulation Clinic Anticoagulation Episode Summary Anticoagulation Care Providers Provider Role Specialty Phone number Tien Serrano MD Referring Family Medicine [phone] Wilmer Morley is a 82 year old [...] ALLERGIES No Known Allergies 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 documented in this encounterMer[facility]09[facility] History of Past illness Narrative* Problem Noted Date Diagnosed Date Resolved Date Hypertensive kidney disease with stage 3a chronic kidney disease 11/06/2021 10/31/2022 Change in bowel movement 01/21/201812/2020 Episodic lightheadedness 04/11/2015 Bilateral edema of lower extremity 04/11/2015 01/10/2016 Paroxysmal atrial fibrillation 03/19/2015 04/11/2015 Skin lesion 03/05/2010 12/20/2014 documented as of this encounter (statuses as of 02/27/2023) [facility] Miscellaneous Notes* Telephone Encounter - Jinny Shah [facility] - 02/26/2023 2:58 PM EDT [facility] Ambulatory Pharmacy Anticoagulation Clinic Anticoagulation Episode Summary Anticoagulation Care Providers Provider Role Specialty Phone number Tien Serrano MD Referring Family Medicine [phone] Wilmer Morley is a 82 year old [...] ALLERGIES No Known Allergies 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 documented in this encounterMer[facility]09-[facility] Evaluation note* Diagnosis Essential hypertension, benign- Primary Stage 3a chronic kidney disease (HCC) Generalized anxiety disorder shelter 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 Atrial fibrillation, unspecified type (HCC) Dizziness Dizziness and giddiness Valvular heart disease Endocarditis, valve unspecified, unspecified cause documented in this encounter [facility] History of Past illness Narrative* Problem Noted Date Diagnosed Date Resolved Date Hypertensive kidney disease with stage 3a chronic kidney disease 11/06/2021 10/31/2022 Change in bowel movement 01/21/201812/2020 Episodic lightheadedness 04/11/2015 Bilateral edema of lower extremity 04/11/2015 01/10/2016 Paroxysmal atrial fibrillation 03/19/2015 04/11/2015 Skin lesion 03/05/2010 12/20/2014 documented as of this encounter (statuses as of 02/20/2023) [facility] Miscellaneous Notes* Telephone Encounter - Blanca Gomez RN - 02/19/2023 4:08 PM EDT Patient had 1 year script for Lisinopril sent to pharmacy in [place] in December. Asking if the script can be sent to [facility] instead? Pended. Thank you. documented in this encounterMercy [facility]09-14-[facility]23 History of Present illness Narrative* Paulino [...] drink. Has hx remote syncope x [address] 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 shelter 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 - ICD9: V58.69, ICD10: Z79.899 Dizziness may be effect from flecainanide 5. Atrial fibrillation, unspecified type (HCC) - ICD9: 427.31, ICD10: I48.91 Currently regular bradycardic rhythm Has occasional flutters but asymptomatic 6. Dizziness - ICD9: 780.4, ICD10: R42 Patient feels this is identical to past issues with anxiety Discussed medication effects, cardiac risks Has echo scheduled with presser hand Fall precautions reviewed- he is very careful [...] and comparison. documented in this encounterMer[facility]09-13-2023 Miscellaneous Notes* Telephone Encounter - Sylvie [...] Sylvie Gregory documented in this encounterMercy Health [facility]09-13-2023 History of Past illness Narrative* Problem Noted Date Diagnosed Date Resolved Date Hypertensive kidney disease with stage 3a chronic kidney disease 11/06/2021 10/31/2022 Change in bowel movement 01/21/201812/2020 Episodic lightheadedness 04/11/2015 Bilateral edema of lower extremity 04/11/2015 01/10/2016 Paroxysmal atrial fibrillation 03/19/2015 04/11/2015 Skin lesion 03/05/2010 12/20/2014 documented as of this encounter (statuses as of 02/18/2023) [facility] Misc[facility] Notes* Telephone Encounter - Arabella Lopez [facility] - 02/10/2023 2:33 PM EDT [facility] Ambulatory [facility]acy Anticoagulation Clinic Anticoagulation Episode Summary Anticoagulation Care Providers Provider Role Specialty Phone number Tien Serrano MD Referring Family Medicine [phone] Wilmer Morley is a 82 year old [...] Fri; 5 mg all other days Sent [facility] message Advised patient to continue current weekly dose as noted above Next home INR check scheduled on 02/24/2023 Arabella Lopez [facility] Clinical Pharmacist, Pharmacy Anticoagulation Clinic Pharmacy Anticoagulation Clinic Pager: [phone]. 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 documented in this encounterMercy [facility]08-[facility] History of Past illness Narrative* Problem Noted Date Diagnosed Date Resolved Date Hypertensive kidney disease with stage 3a chronic kidney disease 11/06/2021 10/31/2022 Change in bowel movement 01/21/201812/2020 Episodic lightheadedness 04/11/2015 Bilateral edema of lower extremity 04/11/2015 01/10/2016 Paroxysmal atrial fibrillation 03/19/2015 04/11/2015 Skin lesion 03/05/2010 12/20/2014 documented as of this encounter (statuses as of 01/24/2023) [facility] Miscellaneous Notes* Telephone Encounter - Tra [...] Foss LPN documented in this encounterMercy Health [facility] Hospital08-02-2023 History of Past illness Narrative* Problem Noted Date Diagnosed Date Resolved Date Hypertensive kidney disease with stage 3a chronic kidney disease 11/06/2021 10/31/2022 Change in bowel movement 01/21/201812/2020 Episodic lightheadedness 04/11/2015 Bilateral edema of lower extremity 04/11/2015 01/10/2016 Paroxysmal atrial fibrillation 03/19/2015 04/11/2015 Skin lesion 03/05/2010 12/20/2014 documented as of this encounter (statuses as of 01/07/2023) [facility] Miscellaneous Notes* Telephone Encounter - Bea Adan RPh - 12/19/2022 2:32 PM EDT Patient due to test INR today. Will continue to monitor for results. Bea Adan RPh documented in this encounterMercy [facility]07-14-2023 History of Past illness Narrative* Problem Noted Date Diagnosed Date Resolved Date Hypertensive kidney disease with stage 3a chronic kidney disease 11/06/2021 10/31/2022 Change in bowel movement 01/21/201812/2020 Episodic lightheadedness 04/11/2015 Bilateral edema of lower extremity 04/11/2015 01/10/2016 Paroxysmal atrial fibrillation 03/19/2015 04/11/2015 Skin lesion 03/05/2010 12/20/2014 documented as of this encounter (statuses as of 12/19/2022) [facility] Miscellaneous Notes* Telephone Encounter - Cortney [...] for you. documented in this encounterMercy Health [facility]07-10-2023 History of Past illness Narrative* Problem Noted Date Diagnosed Date Resolved Date Hypertensive kidney disease with stage 3a chronic kidney disease 11/06/2021 10/31/2022 Change in bowel movement 01/21/201812/2020 Episodic lightheadedness 04/11/2015 Bilateral edema of lower extremity 04/11/2015 01/10/2016 Paroxysmal atrial fibrillation 03/19/2015 04/11/2015 Skin lesion 03/05/2010 12/20/2014 documented as of this encounter (statuses as of 12/15/2022) [facility] Miscellaneous Notes* Telephone Encounter - Lia [...] Gomez RN documented in this encounterMercy Health Willard Hospital06-30-2023 Miscellaneous Notes* Telephone Encounter - Ghazal Bailey RPh - 12/05/2022 12:07 PM EDT [employer] message sent for therapeutic INR. documented in this encounterMercy Health Will[facility] Hospital06-30-2023 History of Past illness Narrative* Problem Noted Date Resolved Date Hypertensive kidney disease with stage 3a chronic kidney disease 11/06/2021 10/31/2022 Change in bowel movement 01/21/2018 021 Episodic lightheadedness 04/11/2015 018 Bilateral edema of lower extremity 04/11/2015 01/10/2016 Paroxysmal atrial fibrillation 03/19/2015 1 06/11/2014 Skin lesion 03/05/2010 12/20/2014 documented as of this encounter (statuses as of 12/05/2022) [facility] of Past illness Narrative* Problem Noted Date Resolved Date Hypertensive kidney disease with stage 3a chronic kidney disease 11/06/2021 10/31/2022 Change in bowel movement 01/21/2018 021 Episodic lightheadedness 04/11/2015 018 Bilateral edema of lower extremity 04/11/2015 01/10/2016 Paroxysmal atrial fibrillation 03/19/2015 1 06/11/2014 Skin lesion 03/05/2010 12/20/2014 documented as of this encounter (statuses as of 12/05/2022) [facility] Miscellaneous Notes* Telephone Encounter - Tra Foss LPN - 11/25/2022 3:44 PM EDT Referral faxed. Tra Foss LPN * Telephone Encounter - Katy Galdamez APRN.FOLDER OPERATOR - 11/24/2022 8:11 PM EDT Can we please forward gen surg referral to Dr. Verónica Garcia. Katy Galdamez APRN.CNP documented in this encounterMercy Health Willard Hospital06-19-2023 Instructions* Patient Instructions* Katy Galdamez APRN.CNP - 11/24/2022 9:47 AM EDT Continue the same medications. Send me the blood pressures in a week. documented in this encounterMercy Health Willard Hospital06-19-2023 History of Present illness Narrative* Katy [...] Father CHF Heart Mother CHF Heart Brother [place] - rheumatic fever Cancer Brother gastric Asthma [...] as needed for worsening/no improvement. 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 documented in this encounterMercy Health Willard Hospital05-31-2023 Miscellaneous Notes* Telephone Encounter - Ghazal Bailey RPh - 11/05/2022 3:39 PM EDT Mychart message sent for therapeutic INR. documented in this encounterMercy Health Willard Hospital05-16-2023 Miscellaneous Notes* Telephone Encounter - Love Awad RPh - 10/21/2022 11:18 AM EDT Patient was due to test INR today. Will continue to monitor for results. Love Felisha Delmi, PharmD documented in this encounterMercy Health Will[facility] Hospital03-28-2023 Miscellaneous Notes* Telephone Encounter - Arabella [...] Lopez RPh documented in this encounterMercy Health Willard Hospital03-16-2023 Miscellaneous Notes* Telephone Encounter - Dariela Batista LPN - 08/21/2022 3:35 PM EDT Patient phones requesting refills as follows: Requested Prescriptions Pending Prescriptions Disp Refills warfarin (COUMADIN) 5 mg tablet 90 tablet 1 Si.5 mg every Mon, Fri; 5 mg all other days MARY-04/09/22 Labs-02/04/22 NOV-10/31/22 med filled 02/20/22 Please review and advise. Dariela Batista LPN documented in this encounterMercy Health Will[facility] Hospital03-08-2023 Miscellaneous Notes* Telephone Encounter - Ghazal Bailey RPh - 08/13/2022 8:57 AM EST Mychart message sent for therapeutic INR. documented in this encounterMercy Health Willard Hospital03-01-2023 Miscellaneous Notes* Telephone Encounter - Alejandrina [...] Rebollar LPN documented in this encounterMercy Health Willard Hospital02-16-2023 Miscellaneous Notes* Telephone Encounter - Jinny Shah, [facility] - 07/24/2022 12:59 PM EST [facility] Anticoagulation Episode Summary Anticoagulation Care Providers Provider Role Specialty Phone number Tien Serrano MD Referring Family Medicine [phone] Wilmer Morley is a 81 year old [...] Warfarin: History of dvt (deep vein thrombosis) 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 documented in this encounterMercy Health Willard Hospital01-17-2023 Miscellaneous Notes* Telephone Encounter - Arabella Lopez RPh - 06/24/2022 3:42 PM EST [employer] message sent with INR result, dosing and information on when to test next. Arabella Lopez RPh, PharmD, CACP Clinical Pharmacist, Pharmacy Anticoagulation Clinic documented in this encounterMercy Health Willard Hospital12-29-2022 Miscellaneous Notes* Telephone Encounter - Jinny Shah RPh - 06/05/2022 2:18 PM EST Patient due to test INR today. Will continue to monitor for results. 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 Jinny Shah [facility] Clinical Pharmacist, Pharmacy Anticoagulation Clinic Pharmacy Anticoagulation Clinic Pager: [phone]. documented in this encounterMercy Health Willard Hospital11-30-2022 Miscellaneous Notes* Telephone Encounter - Ghazal Bailey [facility] - 05/07/2022 1:59 PM EST [employer] message sent for therapeutic INR. * Telephone Encounter - Arabella Lopez [facility] - 05/06/2022 4:18 PM EST Wilmer Morley was called and reminded to test INR today or as soon as possible. 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 FAMILY HISTORY Problem Relation Age of Onset Heart Father CHF Heart Mother CHF Heart Brother [place] - rheumatic fever Cancer Brother gastric Asthma [...] Abs Lymph 1.00 - 4.00 k/uL 1.21 Louisa% % 6.9 Abs [place]a <0.87 k/uL 0.43 Eosin% % 0.8 Abs [...] Serrano MD documented in this encounterMercy Health Will[facility] Hospital10-31-2022 Miscellaneous Notes* Telephone Encounter - Namita Gee [facility] - 04/07/2022 3:32 PM EDT [facility] Anticoagulation Episode Summary Anticoagulation Care Providers Provider Role Specialty Phone number Tien Serrano MD Referring Family Medicine [phone] Wilmer Morley is a 81 year old [...] Pharmacy Anticoagulation Clinic Pharmacy Anticoagulation Clinic Pager: [phone]. documented in this encounterMercy Health Willard Hospital10-28-2022 Miscellaneous Notes* Telephone Encounter - Bea Adan RPh - 04/04/2022 5:25 PM EDT Patient due to test INR today. Will continue to monitor for results. 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 documented in this encounterMercy Health [facility] Hospital10-12-2022 Miscellaneous Notes* Telephone Encounter - Rere Mejia RPh - 03/19/2022 2:01 PM EDT Patient due to test INR today. Will continue to monitor for results. Rere Mejia RPh documented in this encounterMercy Health [facility] Hospital09-15-2022 Miscellaneous Notes* Telephone Encounter - Arpita Hurt Ma - 02/20/2022 3:37 PM EDT Last office visit: 01/30/22 F/u scheduled: 04/29/22 Arpita Hurt Ma documented in this encounterMercy Health [facility] Hospital09-13-2022 Miscellaneous Notes* Telephone Encounter - Marcelina Flores RPh - 02/18/2022 4:20 PM EDT Patient due to test INR today. Will continue to monitor for results. Marcelina Flores RPh documented in this encounterMercy Health [facility] Hospital08-29-2022 Miscellaneous Notes* Telephone Encounter - Stephany [...] Chávez PA-C documented in this encounterMercy Health Willard Hospital08-29-2022 Miscellaneous Notes* Telephone Encounter - Love Awad RPh - 02/03/2022 11:01 AM EDT Patient was due to test INR today. Will continue to monitor for results. Love Awad PharmD documented in this encounterMercy Health Willard Hospital08-29-2022 Miscellaneous Notes* Telephone Encounter - Paulino Ruiz PA-C - 02/03/2022 6:41 AM EDT Urine showed small protein and casts which are abnormal. Recheck urine micro and albumin:creat. Please have him cone in for recheck in lab. 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 Pathology: FINAL DIAGNOSIS A. Skin, excision, posterior scalp: - Seborrheic keratosis, irritated and inflamed. Patient states that area is doing fine. Patient acknowledges above. documented in this encounterMercy Health Willard Hospital08-17-2022 History of Present illness Narrative* Cortney [...] Colbert RN documented in this encounterMercy Health Willard Hospital08-17-2022 Instructions* Patient Instructions* Paulina Colbert RN - 01/22/2022 1:44 PM EDT The following instructions are important for you related to your office visit today with the [facility] General Surgeons. Instructions After SKIN EXCISION-SUTURES [...] you should contact our office immediately @ [phone] and ask to be transferred to the General Surgery department. documented in this encounterMercy Health Willard Hospital08-10-2022 History of Present illness Narrative* Cortney [...] past, using Moh's surgery followed by a medical biller/coder in [place]. PAST MEDICAL HISTORY Diagnosis Date Anxiety Atrial [...] FLX DX W/COLLJ SPEC WHEN PFRMD 03/09/2018 [facility] 10 years ESOPHAGOGASTRODUODENOSCOPY TRANSORAL DIAGNOSTIC N/A 08/16/2020 [facility] PAST SURGICAL H[facility] OF 2010 basal [...] Father CHF Heart Mother CHF Heart Brother [place] - rheumatic fever Cancer Brother gastric Asthma Sister The review of systems data was entered by the nurse and reviewed by [place] Nursing Notes: Ana Cabrera 01/15/2022 3:03 PM [...] Miranda MD documented in this encounterMercy Health [facility] Hospital08-10-2022 Nurse Note* Ana Cabrera - 01/15/2022 [...] Ana Cabrera documented in this encounterMercy Health Willard Hospital08-03-2022 Miscellaneous Notes* Telephone Encounter - Ghazal Bailey RP - 01/08/2022 10:24 AM EDT MyChart message sent for INR in therapeutic range. documented in this encounterMercy Health [facility] Hospital07-20-2022 Miscellaneous Notes* Telephone Encounter - Ghazal Bailey [facility] - 2021 12:57 PM EDT MyChart message sent for therapeutic INR. documented in this encounterMercy Health [facility]ard Hospital07-20-2022 Miscellaneous Notes* Telephone Encounter - Tien [...] Rothman LPN documented in this encounterMercy Health Willard Hospital06-21-2022 Miscellaneous Notes* Telephone Encounter - Arabella Lopez [facility] - 11/26/2021 4:31 PM EDT [facility] Anticoagulation Episode Summary Anticoagulation Care Providers Provider Role Specialty Phone number Tien Serrano MD Referring [facility] [phone] Wilmer Morley is a 80 year old [...] Pharmacy Anticoagulation Clinic Pharmacy Anticoagulation Clinic Pager: [phone] . documented in this encounterMercy Health Willard Hospital06-03-2022 Nurse Note* Stephany Stein Ma - [...] that he increase his exercise. Going to [employer] about an hour a day 4 times a week. Was told that if that didn't seem to help him to contactcardio back and could order echo and stress test. documented in this encounterMercy Health Willard Hospital06-03-2022 History of Present illness Narrative* Tien [...] that he increase his exercise. Going to [employer] about an hour a day 4 times [...] Abs Lymph 1.00 - 4.00 k/uL 1.30 [place]a% % 11.5 Abs [place] <0.87 k/uL 0.73 Eosin% % 0.6 Abs [...] Father CHF Heart Mother CHF Heart Brother [place] - rheumatic fever Cancer Brother gastric Asthma [...] and prn. documented in this encounterMercy Health [facility]ard Hospital06-03-2022 Evaluation note* Diagnosis Hypertensive kidney disease [...] skin documented in this encounter [facility] History of Past illness Narrative* Problem Noted Date Resolved Date Hypertensive kidney disease with stage 3a chronic kidney disease 11/06/2021 10/31/2022 Change in bowel movement 01/21/2018 021 Episodic lightheadedness 04/11/2015 018 Bilateral edema of lower extremity 04/11/2015 01/10/2016 Paroxysmal atrial fibrillation 03/19/201506/11/2014 Skin lesion 03/05/2010 12/20/2014 documented as of this encounter (statuses as of 11/06/2022) [facility] of Past illness Narrative* Problem Noted Date Resolved Date Hypertensive kidney disease with stage 3a chronic kidney disease 11/06/2021 10/31/2022 Change in bowel movement 01/21/2018 021 Episodic lightheadedness 04/11/2015 018 Bilateral edema of lower extremity 04/11/2015 01/10/2016 Paroxysmal atrial fibrillation 03/19/201506/11/2014 Skin lesion 03/05/2010 12/20/2014 documented as of this encounter (statuses as of 11/21/2022) [facility] of [facility] illness Narrative* Problem Noted Date Resolved Date Hypertensive kidney disease with stage 3a chronic kidney disease 11/06/2021 10/31/2022 Change in bowel movement 01/21/2018 021 Episodic lightheadedness 04/11/2015 018 Bilateral edema of lower extremity 04/11/2015 01/10/2016 Paroxysmal atrial fibrillation 03/19/2015 1 06/11/2014 Skin lesion 03/05/2010 12/20/2014 documented as of this encounter (statuses as of 11/25/2022) [facility] Narrative* Problem Noted Date Resolved Date Hypertensive kidney disease with stage 3a chronic kidney disease 11/06/2021 10/31/2022 Change in bowel movement 01/21/2018 021 Episodic lightheadedness 04/11/2015 018 Bilateral edema of lower extremity 04/11/2015 01/10/2016 Paroxysmal atrial fibrillation 03/19/2015 1 06/11/2014 Skin lesion 03/05/2010 12/20/2014 documented as of this encounter (statuses as of 11/26/2022) [facility] Narrative* Problem Noted Date Diagnosed Date Resolved Date Hypertensive kidney disease with stage 3a chronic kidney disease 11/06/2021 10/31/2022 Change in bowel movement 01/21/201812/2020 Episodic lightheadedness 04/11/2015 Bilateral edema of lower extremity 04/11/2015 01/10/2016 Paroxysmal atrial fibrillation 03/19/2015 04/11/2015 Skin lesion 03/05/2010 12/20/2014 documented as of this encounter (statuses as of 01/07/2023) [facility] Narrative* Problem Noted Date Diagnosed Date Resolved Date Hypertensive kidney disease with stage 3a chronic kidney disease 11/06/2021 10/31/2022 Change in bowel movement 01/21/201812/2020 Episodic lightheadedness 04/11/2015 Bilateral edema of lower extremity 04/11/2015 01/10/2016 Paroxysmal atrial fibrillation 03/19/2015 04/11/2015 Skin lesion 03/05/2010 12/20/2014 documented as of this encounter (statuses as of 02/11/2023) [facility] Narrative* Problem Noted Date Diagnosed Date Resolved Date Hypertensive kidney disease with stage 3a chronic kidney disease 11/06/2021 10/31/2022 Change in bowel movement 01/21/201812/2020 Episodic lightheadedness 04/11/2015 Bilateral edema of lower extremity 04/11/2015 01/10/2016 Paroxysmal atrial fibrillation 03/19/2015 04/11/2015 Skin lesion 03/05/2010 12/20/2014 documented as of this encounter (statuses as of 02/20/2023) [facility] Narrative* Problem [...] encounter (statuses as of 09/10/2023) [facility] Miscellaneous Notes* Telephone Encounter - Love Awad RPh - 10/28/2021 12:48 PM EDT [employer] message sent with INR result, dosing and information on when to test next. Love Awad PharmD documented in this encounterMercy Health [facility]05-06-2022 Miscellaneous Notes* Telephone Encounter - Steph Saravia LPN - 10/11/2021 8:57 AM EDT Phone call placed patient advised (see prior provider encounter) Patient verbalized understanding, agreed with plan of care currently scheduled with Dr. Head's office November 05 advised need to contact office sooner appointment. Patient denied changes in SOB, swelling, weight gain. Copy blood work faxed to Dr. Joshi's office [phone] along with updated provider instructions. Steph Saravia [...] next week. documented in this encounterMercy Health [facility] Hospital04-25-2022 Miscellaneous Notes* Telephone Encounter - Love Awad RPh - 09/30/2021 3:08 PM EDT [employer] message sent with INR result, dosing and information on when to test next. Love Awad PharmD * Telephone Encounter - Arabella Lopez RPh - 09/30/2021 2:46 PM EDT Patient due to test INR today. Will continue to monitor for results. Arabella Lopez RPh documented in this encounterMercy Health [facility] Hospital04-11-2022 Miscellaneous Notes* Telephone Encounter - Jamie Motley RPh - 09/16/2021 1:39 PM EDT Images from the original note were not included. Jamie Motley RPh documented in this encounterMercy Health [facility] Hospital04-11-2022 Miscellaneous Notes* Telephone Encounter - Caryn [...] Singh Pss documented in this encounterMercy Health [facility] Hospital03-29-2022 Miscellaneous Notes* Telephone Encounter - Arabella Lopez RPh - 09/03/2021 3:27 PM EDT [facility] Anticoagulation Episode Summary Anticoagulation Care Providers Provider Role Specialty Phone number Tien Serrano MD Referring [facility] [phone] Wilmer Morley is a 80 year old [...] Pharmacy Anticoagulation Clinic Pharmacy Anticoagulation Clinic Pager: [phone] . documented in this encounterMercy Health Will[facility] Hospital11-18-2021 Miscellaneous Notes* Telephone Encounter - Dariela [...] Rothman LPN documented in this encounterMercy Health [facility]ard Hospital08-16-2018 History of Past illness Narrative* Problem Noted Date Resolved Date Change in bowel movement 01/21/2018 021 Episodic lightheadedness 04/11/2015 018 Bilateral edema of lower extremity 04/11/2015 01/10/2016 Paroxysmal atrial fibrillation 03/19/2015 1 06/11/2014 Skin lesion 03/05/2010 12/20/2014 documented as of this encounter (statuses as of 09/03/2021) [facility] of [facility] illness Narrative* Problem Noted Date Resolved Date Change in bowel movement 01/21/2018 021 Episodic lightheadedness 04/11/2015 018 Bilateral edema of lower extremity 04/11/2015 01/10/2016 Paroxysmal atrial fibrillation 03/19/2015 1 06/11/2014 Skin lesion 03/05/2010 12/20/2014 documented as of this encounter (statuses as of 09/16/2021) [facility] illness Narrative* Problem Noted Date Resolved Date Change in bowel movement 01/21/2018 021 Episodic lightheadedness 04/11/2015 018 Bilateral edema of lower extremity 04/11/2015 01/10/2016 Paroxysmal atrial fibrillation 03/19/2015 1 06/11/2014 Skin lesion 03/05/2010 12/20/2014 documented as of this encounter (statuses as of 09/16/2021) [address]16-2018 History of Past illness Narrative* Problem Noted Date Resolved Date Change in bowel movement 01/21/2018 021 Episodic lightheadedness 04/11/2015 018 Bilateral edema of lower extremity 04/11/2015 01/10/2016 Paroxysmal atrial fibrillation 03/19/2015 1 06/11/2014 Skin lesion 03/05/2010 12/20/2014 documented as of this encounter (statuses as of 09/30/2021) [address]16-2018 History of Past illness Narrative* Problem Noted Date Resolved Date Change in bowel movement 01/21/2018 021 Episodic lightheadedness 04/11/2015 018 Bilateral edema of lower extremity 04/11/2015 01/10/2016 Paroxysmal atrial fibrillation 03/19/2015 1 06/11/2014 Skin lesion 03/05/2010 12/20/2014 documented as of this encounter (statuses as of 10/11/2021) [address]16-2018 History of Past illness Narrative* Problem Noted Date Resolved Date Change in bowel movement 01/21/2018 021 Episodic lightheadedness 04/11/2015 018 Bilateral edema of lower extremity 04/11/2015 01/10/2016 Paroxysmal atrial fibrillation 03/19/2015 1 06/11/2014 Skin lesion 03/05/2010 12/20/2014 documented as of this encounter (statuses as of 10/14/2021) [address]16-2018 History of Past illness Narrative* Problem Noted Date Resolved Date Change in bowel movement 01/21/2018 021 Episodic lightheadedness 04/11/2015 018 Bilateral edema of lower extremity 04/11/2015 01/10/2016 Paroxysmal atrial fibrillation 03/19/2015 1 06/11/2014 Skin lesion 03/05/2010 12/20/2014 documented as of this encounter (statuses as of 10/28/2021) [address]16-2018 History of Past illness Narrative* Problem Noted Date Resolved Date Change in bowel movement 01/21/2018 021 Episodic lightheadedness 04/11/2015 018 Bilateral edema of lower extremity 04/11/2015 01/10/2016 Paroxysmal atrial fibrillation 03/19/2015 1 06/11/2014 Skin lesion 03/05/2010 12/20/2014 documented as of this encounter (statuses as of 11/08/2021) [address]16-2018 History of Past illness Narrative* Problem Noted Date Resolved Date Change in bowel movement 01/21/2018 021 Episodic lightheadedness 04/11/2015 018 Bilateral edema of lower extremity 04/11/2015 01/10/2016 Paroxysmal atrial fibrillation 03/19/2015 1 06/11/2014 Skin lesion 03/05/2010 12/20/2014 documented as of this encounter (statuses as of 11/26/2021) [address]16-2018 History of Past illness Narrative* Problem Noted Date Resolved Date Change in bowel movement 01/21/2018 021 Episodic lightheadedness 04/11/2015 018 Bilateral edema of lower extremity 04/11/2015 01/10/2016 Paroxysmal atrial fibrillation 03/19/2015 1 06/11/2014 Skin lesion 03/05/2010 12/20/2014 documented as of this encounter (statuses as of 12/12/2021) [address]16-2018 History of Past illness Narrative* Problem Noted Date Resolved Date Change in bowel movement 01/21/2018 021 Episodic lightheadedness 04/11/2015 018 Bilateral edema of lower extremity 04/11/2015 01/10/2016 Paroxysmal atrial fibrillation 03/19/2015 1 06/11/2014 Skin lesion 03/05/2010 12/20/2014 documented as of this encounter (statuses as of 2021) [address]16-2018 History of Past illness Narrative* Problem Noted Date Resolved Date Change in bowel movement 01/21/2018 021 Episodic lightheadedness 04/11/2015 018 Bilateral edema of lower extremity 04/11/2015 01/10/2016 Paroxysmal atrial fibrillation 03/19/2015 1 06/11/2014 Skin lesion 03/05/2010 12/20/2014 documented as of this encounter (statuses as of 01/08/2022) [address]16-2018 History of Past illness Narrative* Problem Noted Date Resolved Date Change in bowel movement 01/21/2018 021 Episodic lightheadedness 04/11/2015 018 Bilateral edema of lower extremity 04/11/2015 01/10/2016 Paroxysmal atrial fibrillation 03/19/2015 1 06/11/2014 Skin lesion 03/05/2010 12/20/2014 documented as of this encounter (statuses as of 01/18/2022) [facility]-16-2018 History of Past illness Narrative* Problem Noted Date Resolved Date Change in bowel movement 01/21/2018 021 Episodic lightheadedness 04/11/2015 018 Bilateral edema of lower extremity 04/11/2015 01/10/2016 Paroxysmal atrial fibrillation 03/19/2015 1 06/11/2014 Skin lesion 03/05/2010 12/20/2014 documented as of this encounter (statuses as of 01/24/2022) [facility]-16-2018 History of Past illness Narrative* Problem Noted Date Resolved Date Change in bowel movement 01/21/2018 021 Episodic lightheadedness 04/11/2015 018 Bilateral edema of lower extremity 04/11/2015 01/10/2016 Paroxysmal atrial fibrillation 03/19/2015 1 06/11/2014 Skin lesion 03/05/2010 12/20/2014 documented as of this encounter (statuses as of 01/25/2022) [facility]16-2018 History of Past illness Narrative* Problem Noted Date Resolved Date Change in bowel movement 01/21/2018 021 Episodic lightheadedness 04/11/2015 018 Bilateral edema of lower extremity 04/11/2015 01/10/2016 Paroxysmal atrial fibrillation 03/19/2015 1 06/11/2014 Skin lesion 03/05/2010 12/20/2014 documented as of this encounter (statuses as of 01/30/2022) [address]16-2018 History of Past illness Narrative* Problem Noted Date Resolved Date Change in bowel movement 01/21/2018 021 Episodic lightheadedness 04/11/2015 018 Bilateral edema of lower extremity 04/11/2015 01/10/2016 Paroxysmal atrial fibrillation 03/19/2015 1 06/11/2014 Skin lesion 03/05/2010 12/20/2014 documented as of this encounter (statuses as of 02/03/2022) [address]16-2018 History of Past illness Narrative* Problem Noted Date Resolved Date Change in bowel movement 01/21/2018 021 Episodic lightheadedness 04/11/2015 018 Bilateral edema of lower extremity 04/11/2015 01/10/2016 Paroxysmal atrial fibrillation 03/19/2015 1 06/11/2014 Skin lesion 03/05/2010 12/20/2014 documented as of this encounter (statuses as of 02/03/2022) [address]16-2018 History of Past illness Narrative* Problem Noted Date Resolved Date Change in bowel movement 01/21/2018 021 Episodic lightheadedness 04/11/2015 018 Bilateral edema of lower extremity 04/11/2015 01/10/2016 Paroxysmal atrial fibrillation 03/19/2015 1 06/11/2014 Skin lesion 03/05/2010 12/20/2014 documented as of this encounter (statuses as of 02/18/2022) [address]16-2018 History of Past illness Narrative* Problem Noted Date Resolved Date Change in bowel movement 01/21/2018 021 Episodic lightheadedness 04/11/2015 018 Bilateral edema of lower extremity 04/11/2015 01/10/2016 Paroxysmal atrial fibrillation 03/19/2015 1 06/11/2014 Skin lesion 03/05/2010 12/20/2014 documented as of this encounter (statuses as of 02/20/2022) [address]16-2018 History of Past illness Narrative* Problem Noted Date Resolved Date Change in bowel movement 01/21/2018 021 Episodic lightheadedness 04/11/2015 018 Bilateral edema of lower extremity 04/11/2015 01/10/2016 Paroxysmal atrial fibrillation 03/19/2015 1 06/11/2014 Skin lesion 03/05/2010 12/20/2014 documented as of this encounter (statuses as of 03/19/2022) [address]16-2018 History of Past illness Narrative* Problem Noted Date Resolved Date Change in bowel movement 01/21/2018 021 Episodic lightheadedness 04/11/2015 018 Bilateral edema of lower extremity 04/11/2015 01/10/2016 Paroxysmal atrial fibrillation 03/19/2015 1 06/11/2014 Skin lesion 03/05/2010 12/20/2014 documented as of this encounter (statuses as of 03/21/2022) [facility]16-2018 History of Past illness Narrative* Problem Noted Date Resolved Date Change in bowel movement 01/21/2018 021 Episodic lightheadedness 04/11/2015 018 Bilateral edema of lower extremity 04/11/2015 01/10/2016 Paroxysmal atrial fibrillation 03/19/2015 1 06/11/2014 Skin lesion 03/05/2010 12/20/2014 documented as of this encounter (statuses as of 04/04/2022) [facility]16-2018 History of Past illness Narrative* Problem Noted Date Resolved Date Change in bowel movement 01/21/2018 021 Episodic lightheadedness 04/11/2015 018 Bilateral edema of lower extremity 04/11/2015 01/10/2016 Paroxysmal atrial fibrillation 03/19/2015 1 06/11/2014 Skin lesion 03/05/2010 12/20/2014 documented as of this encounter (statuses as of 04/07/2022) [facility]16-2018 History of Past illness Narrative* Problem Noted Date Resolved Date Change in bowel movement 01/21/2018 021 Episodic lightheadedness 04/11/2015 018 Bilateral edema of lower extremity 04/11/2015 01/10/2016 Paroxysmal atrial fibrillation 03/19/2015 1 06/11/2014 Skin lesion 03/05/2010 12/20/2014 documented as of this encounter (statuses as of 04/22/2022) [address]16-2018 History of Past illness Narrative* Problem Noted Date Resolved Date Change in bowel movement 01/21/2018 021 Episodic lightheadedness 04/11/2015 018 Bilateral edema of lower extremity 04/11/2015 01/10/2016 Paroxysmal atrial fibrillation 03/19/2015 1 06/11/2014 Skin lesion 03/05/2010 12/20/2014 documented as of this encounter (statuses as of 04/29/2022) [facility]16-2018 History of Past illness Narrative* Problem Noted Date Resolved Date Change in bowel movement 01/21/2018 021 Episodic lightheadedness 04/11/2015 018 Bilateral edema of lower extremity 04/11/2015 01/10/2016 Paroxysmal atrial fibrillation 03/19/2015 1 06/11/2014 Skin lesion 03/05/2010 12/20/2014 documented as of this encounter (statuses as of 05/07/2022) [facility]16-2018 History of Past illness Narrative* Problem Noted Date Resolved Date Change in bowel movement 01/21/2018 021 Episodic lightheadedness 04/11/2015 018 Bilateral edema of lower extremity 04/11/2015 01/10/2016 Paroxysmal atrial fibrillation 03/19/2015 1 06/11/2014 Skin lesion 03/05/2010 12/20/2014 documented as of this encounter (statuses as of 05/08/2022) [place] [id number] History of Past illness Narrative* Problem Noted Date Resolved Date Change in bowel movement 01/21/2018 021 Episodic lightheadedness 04/11/2015 018 Bilateral edema of lower extremity 04/11/2015 01/10/2016 Paroxysmal atrial fibrillation 03/19/2015 1 06/11/2014 Skin lesion 03/05/2010 12/20/2014 documented as of this encounter (statuses as of 05/22/2022) [place] [id number] History of Past illness Narrative* Problem Noted Date Resolved Date Change in bowel movement 01/21/2018 021 Episodic lightheadedness 04/11/2015 018 Bilateral edema of lower extremity 04/11/2015 01/10/2016 Paroxysmal atrial fibrillation 03/19/2015 1 06/11/2014 Skin lesion 03/05/2010 12/20/2014 documented as of this encounter (statuses as of 06/12/2022) [address]16-2018 History of Past illness Narrative* Problem Noted Date Resolved Date Change in bowel movement 01/21/2018 021 Episodic lightheadedness 04/11/2015 018 Bilateral edema of lower extremity 04/11/2015 01/10/2016 Paroxysmal atrial fibrillation 03/19/2015 1 06/11/2014 Skin lesion 03/05/2010 12/20/2014 documented as of this encounter (statuses as of 06/19/2022) [address]16-2018 History of Past illness Narrative* Problem Noted Date Resolved Date Change in bowel movement 01/21/2018 021 Episodic lightheadedness 04/11/2015 018 Bilateral edema of lower extremity 04/11/2015 01/10/2016 Paroxysmal atrial fibrillation 03/19/2015 1 06/11/2014 Skin lesion 03/05/2010 12/20/2014 documented as of this encounter (statuses as of 06/24/2022) [address]16-2018 History of Past illness Narrative* Problem Noted Date Resolved Date Change in bowel movement 01/21/2018 021 Episodic lightheadedness 04/11/2015 018 Bilateral edema of lower extremity 04/11/2015 01/10/2016 Paroxysmal atrial fibrillation 03/19/2015 1 06/11/2014 Skin lesion 03/05/2010 12/20/2014 documented as of this encounter (statuses as of 07/11/2022) [address]16-2018 History of Past illness Narrative* Problem Noted Date Resolved Date Change in bowel movement 01/21/2018 021 Episodic lightheadedness 04/11/2015 018 Bilateral edema of lower extremity 04/11/2015 01/10/2016 Paroxysmal atrial fibrillation 03/19/2015 1 06/11/2014 Skin lesion 03/05/2010 12/20/2014 documented as of this encounter (statuses as of 07/24/2022) [address]16-2018 History of Past illness Narrative* Problem Noted Date Resolved Date Change in bowel movement 01/21/2018 021 Episodic lightheadedness 04/11/2015 018 Bilateral edema of lower extremity 04/11/2015 01/10/2016 Paroxysmal atrial fibrillation 03/19/2015 1 06/11/2014 Skin lesion 03/05/2010 12/20/2014 documented as of this encounter (statuses as of 08/06/2022) [address]16-2018 History of Past illness Narrative* Problem Noted Date Resolved Date Change in bowel movement 01/21/2018 021 Episodic lightheadedness 04/11/2015 018 Bilateral edema of lower extremity 04/11/2015 01/10/2016 Paroxysmal atrial fibrillation 03/19/2015 1 06/11/2014 Skin lesion 03/05/2010 12/20/2014 documented as of this encounter (statuses as of 08/13/2022) [facility]16-2018 History of Past illness Narrative* Problem Noted Date Resolved Date Change in bowel movement 01/21/2018 021 Episodic lightheadedness 04/11/2015 018 Bilateral edema of lower extremity 04/11/2015 01/10/2016 Paroxysmal atrial fibrillation 03/19/2015 1 06/11/2014 Skin lesion 03/05/2010 12/20/2014 documented as of this encounter (statuses as of 08/21/2022) [facility]16[facility]2018 History of Past illness Narrative* Problem Noted Date Resolved Date Change in bowel movement 01/21/2018 021 Episodic lightheadedness 04/11/2015 018 Bilateral edema of lower extremity 04/11/2015 01/10/2016 Paroxysmal atrial fibrillation 03/19/2015 1 06/11/2014 Skin lesion 03/05/2010 12/20/2014 documented as of this encounter (statuses as of 09/08/2022) [facility]16[facility]2018 History of Past illness Narrative* Problem Noted Date Resolved Date Change in bowel movement 01/21/2018 021 Episodic lightheadedness 04/11/2015 018 Bilateral edema of lower extremity 04/11/2015 01/10/2016 Paroxysmal atrial fibrillation 03/19/2015 1 06/11/2014 Skin lesion 03/05/2010 12/20/2014 documented as of this encounter (statuses as of 09/13/2022) [address]16-2018 History of Past illness Narrative* Problem Noted Date Resolved Date Change in bowel movement 01/21/2018 021 Episodic lightheadedness 04/11/2015 018 Bilateral edema of lower extremity 04/11/2015 01/10/2016 Paroxysmal atrial fibrillation 03/19/2015 1 06/11/2014 Skin lesion 03/05/2010 12/20/2014 documented as of this encounter (statuses as of 10/22/2022) [facility]16[facility]2018 History of Past illness Narrative* Problem Noted Date Resolved Date Change in bowel movement 01/21/2018 021 Episodic lightheadedness 04/11/2015 018 Bilateral edema of lower extremity 04/11/2015 01/10/2016 Paroxysmal atrial fibrillation 03/19/2015 1 06/11/2014 Skin lesion 03/05/2010 12/20/2014 documented as of this encounter (statuses as of 10/23/2022) [facility] note* Diagnosis shelter (current) use of anticoagulants- Primary Long-term (current) use of anticoagulants History of DVT (deep vein thrombosis) Personal history of venous thrombosis and embolism [facility] Diagnosis Congestive heart failure, unspecified HF chronicity, unspecified heart failure type (HCC)- Primary [facility] 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 Long-term (current) use of anticoagulants History of DVT (deep vein thrombosis) Personal history of venous thrombosis and embolism Atrial fibrillation, unspecified type (HCC) [facility] Diagnosis shelter (current) use of anticoagulants- Primary Long-term (current) use of anticoagulants History of DVT (deep vein thrombosis) Personal history of venous thrombosis and embolism Atrial fibrillation, unspecified type (HCC) [facility] Diagnosis Skin lesion- Primary Unspecified disorder of skin and subcutaneous tissue [facility] Diagnosis Skin lesion- Primary Unspecified disorder of skin and subcutaneous tissue Dysesthesia Disturbance of skin sensation [facility] Diagnosis Abdominal pain, left lateral- Primary Abdominal pain, unspecified site [facility] Diagnosis Abnormal casts in urine- Primary Other cells and casts in urine Urine protein increased Proteinuria [facility] Diagnosis Hyperlipidemia LDL goal <100 Other and unspecified hyperlipidemia [facility] Diagnosis Essential hypertension, benign- Primary Hyperlipidemia LDL goal <100 Other and unspecified hyperlipidemia Atrial fibrillation, unspecified type (HCC) Moderate tricuspid regurgitation Diseases of tricuspid valve Stage 3a chronic kidney disease (HCC) Hyperglycemia Other abnormal glucose Hx of skin cancer, basal cell Personal history of other malignant neoplasm of skin Generalized anxiety disorder Abnormal breath sounds Abnormal chest sounds [facility]* Diagnosis shelter (current) use of anticoagulants- Primary Long-term (current) use of anticoagulants History of DVT (deep vein thrombosis) Personal history of venous thrombosis and embolism Atrial fibrillation, unspecified type (HCC) [facility]* Diagnosis Hyperglycemia- Primary Other abnormal glucose [facility]* 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 Long-term (current) use of anticoagulants History of DVT (deep vein thrombosis) Personal history of venous thrombosis and embolism Atrial fibrillation, unspecified type (HCC) [facility]* Diagnosis Essential hypertension, benign- Primary Screening for colon cancer Special screening for malignant neoplasms, colon [facility] Diagnosis Hyperlipidemia LDL goal <100 Other and unspecified hyperlipidemia Essential hypertension, benign [facility]* Diagnosis shelter (current) use of anticoagulants- Primary Long-term (current) use of anticoagulants Atrial fibrillation, unspecified type (HCC) History of DVT (deep vein thrombosis) Personal history of venous thrombosis and embolism [facility]* Diagnosis Essential hypertension, benign [facility] Diagnosis shelter (current) use of anticoagulants- Primary Long-term (current) use of anticoagulants ATRIAL FIBRILLATION History of DVT (deep vein thrombosis) Personal history of venous thrombosis and embolism [facility]* Diagnosis shelter (current) use of anticoagulants- Primary Long-term (current) use of anticoagulants History of DVT (deep vein thrombosis) Personal history of venous thrombosis and embolism [facility]* 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 Long-term (current) use of anticoagulants History of DVT (deep vein thrombosis) Personal history of venous thrombosis and embolism [facility]* Diagnosis Moderate mitral regurgitation Mitral valve disorders [facility] Diagnosis Hyperlipidemia LDL goal <100 Other and unspecified hyperlipidemia [facility]* Diagnosis Anxiety Anxiety state, unspecified Generalized anxiety disorder Hyperlipidemia LDL goal <100 Other and unspecified hyperlipidemia Essential hypertension, benign 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 Long-term (current) use of anticoagulants ATRIAL FIBRILLATION History of DVT (deep vein thrombosis) Personal history of venous thrombosis and embolism [facility] Anxiety Anxiety state, unspecified 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 Long-term (current) use of anticoagulants ATRIAL FIBRILLATION History of DVT (deep vein thrombosis) Personal history of venous thrombosis and embolism [facility] Diagnosis Atrial fibrillation, unspecified type (HCC)- Primary Essential hypertension, benign Moderate mitral regurgitation Mitral valve disorders Stage 3a chronic kidney disease (HCC) Hyperglycemia Other abnormal glucose Hx of skin cancer, basal cell Personal history of other malignant neoplasm of skin Generalized anxiety disorder shelter (current) use of anticoagulants Long-term (current) use of anticoagulants 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 Balance problem Other symptoms involving nervous and musculoskeletal systems Impacted cerumen of left ear Impacted cerumen [facility] Diagnosis Renal insufficiency- Primary Unspecified disorder of kidney and ureter [facility] 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 Long-term (current) use of anticoagulants History of DVT (deep vein thrombosis) Personal history of venous thrombosis and embolism [facility] Diagnosis Lightheaded- Primary Dizziness and [...] Shortness of breath [facility] Diagnosis Essential hypertension, benign Hyperlipidemia LDL goal <100 Other and unspecified hyperlipidemia [facility] 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 Long-term (current) use of anticoagulants History of DVT (deep vein thrombosis) Personal history of venous thrombosis and embolism [facility] Diagnosis Lightheaded- Primary Dizziness and giddiness Benign paroxysmal positional vertigo of right ear documented in this encounter [facility] note* Diagnosis shelter (current) use of anticoagulants- Primary Long-term (current) use of anticoagulants ATRIAL FIBRILLATION History of DVT (deep vein thrombosis) Personal history of venous thrombosis and embolism documented in this encounter [facility] note* Diagnosis SOB (shortness of breath)- Primary Shortness of breath Lightheadedness Dizziness and giddiness Lightheaded Dizziness and giddiness Lightheadedness Dizziness and giddiness documented in this encounter [facility] note* Diagnosis SOB (shortness of breath) Shortness of breath Lightheadedness Dizziness and giddiness documented in this encounter [facility] note* Diagnosis SOB (shortness of breath) Shortness of breath Lightheadedness Dizziness and giddiness documented in this encounter [facility] note* Diagnosis SOB (shortness of breath) Shortness of breath Lightheadedness Dizziness and giddiness documented in this encounter [facility] note* Diagnosis Chronic obstructive pulmonary disease, unspecified COPD type (HCC)- Primary documented in this encounter [facility] note* Diagnosis Lightheadedness Dizziness and giddiness documented in this encounter [facility] note* Diagnosis Lightheaded- Primary Dizziness and giddiness Benign paroxysmal positional vertigo of right ear documented in this encounter [facility] note* 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 Long-term (current) use of anticoagulants History of DVT (deep vein thrombosis) Personal history of venous thrombosis and embolism documented in this encounter [facility] note* Diagnosis Lightheaded- Primary Dizziness and giddiness Benign paroxysmal positional vertigo of right ear documented in this encounter [facility] note* Diagnosis Abnormal breath sounds Abnormal chest sounds documented in this encounter [facility] note* Diagnosis shelter (current) use of anticoagulants- Primary Long-term (current) use of anticoagulants History of DVT (deep vein thrombosis) Personal history of venous thrombosis and embolism documented in this encounter [facility] note* Diagnosis SOB (shortness of breath) Shortness of breath documented in this encounter [facility] note* 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 Long-term (current) use of anticoagulants ATRIAL FIBRILLATION History of DVT (deep vein thrombosis) Personal history of venous thrombosis and embolism documented in this encounter [facility] note* Diagnosis Chronic obstructive pulmonary disease, unspecified COPD type (HCC)- Primary Irritable bowel syndrome with diarrhea Irritable bowel syndrome documented in this encounter [facility] note* Diagnosis Lightheaded- Primary Dizziness and giddiness Benign paroxysmal positional vertigo of right ear documented in this encounter [facility] note* 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 Long-term (current) use of anticoagulants ATRIAL FIBRILLATION History of DVT (deep vein thrombosis) Personal history of venous thrombosis and embolism documented in this encounter [facility] note* Diagnosis Chronic obstructive pulmonary disease, unspecified COPD type (HCC)- Primary Atrial fibrillation, unspecified type (HCC) Essential hypertension, benign Stage 3a chronic kidney disease (HCC) Generalized anxiety disorder Anxiety Anxiety state, unspecified Encounter for immunization Need for other specified prophylactic vaccination against single bacterial disease Hyperglycemia Other abnormal glucose [facility] Diagnosis Anxiety Anxiety state, unspecified documented in this encounter [facility] note* Diagnosis shelter (current) use of anticoagulants- Primary Long-term (current) use of anticoagulants ATRIAL FIBRILLATION History of DVT (deep vein thrombosis) Personal history of venous thrombosis and embolism documented in this encounter [facility] note* Diagnosis shelter (current) use of anticoagulants- Primary Long-term (current) use of anticoagulants ATRIAL FIBRILLATION History of DVT (deep vein thrombosis) Personal history of venous thrombosis and embolism documented in this encounter [facility] note* Diagnosis Hyperlipidemia LDL goal <100 Other and unspecified hyperlipidemia documented in this encounter [facility] note* Diagnosis shelter (current) use of anticoagulants- Primary Long-term (current) use of anticoagulants History of DVT (deep vein thrombosis) Personal history of venous thrombosis and embolism documented in this encounter [facility] note* Diagnosis COPD with exacerbation (HCC)- Primary Obstructive chronic bronchitis with exacerbation Atrial fibrillation, unspecified type (HCC) Essential hypertension, benign Moderate mitral regurgitation Mitral valve disorders Moderate tricuspid regurgitation Diseases of tricuspid valve Chronic obstructive pulmonary disease, unspecified COPD type (HCC) Stage 3a chronic kidney disease (HCC) Hyperglycemia Other abnormal glucose shelter (current) use of anticoagulants Long-term (current) use of anticoagulants History of DVT (deep vein thrombosis) Personal history of venous thrombosis and embolism 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 SOB (shortness of breath) Shortness of breath documented in this encounter [facility] note* Diagnosis SOB (shortness of breath) Shortness of breath COPD with exacerbation (HCC) Obstructive chronic bronchitis with exacerbation documented in this encounter [facility] note* Diagnosis Essential hypertension, benign- Primary Screening for depression Congestive heart failure, unspecified HF chronicity, unspecified heart failure type (HCC) Atrial fibrillation, unspecified type (HCC) Stage 3a chronic kidney disease (HCC) Chronic obstructive pulmonary disease, unspecified COPD type (HCC) SOB (shortness of breath) Shortness of breath documented in this encounter [facility] note* Diagnosis Essential hypertension, benign- Primary documented in this encounter [facility] note* Diagnosis COPD, moderate (HCC)- Primary Chronic airway obstruction, not elsewhere classified Former cigarette smoker Personal history of tobacco use, presenting hazards to health Moderate pulmonary hypertension (HCC) documented in this encounter [facility] note* Diagnosis Anxiety Anxiety state, unspecified documented in this encounter [facility] note* Diagnosis Vertigo- Primary Dizziness and giddiness Atrial fibrillation, unspecified type (HCC) Essential hypertension, benign Chronic obstructive pulmonary disease, unspecified COPD type (HCC) Stage 3a chronic kidney disease (HCC) Hyperglycemia Other abnormal glucose shelter (current) use of anticoagulants Long-term (current) use of anticoagulants History of DVT (deep vein thrombosis) Personal history of venous thrombosis and embolism Pulmonary HTN (HCC) Other chronic pulmonary heart diseases Congestive heart failure, unspecified HF chronicity, unspecified heart failure type (HCC) MARY BETH (obstructive sleep apnea) Obstructive sleep apnea (adult) (pediatric) documented in this encounter [facility] note* Diagnosis shelter (current) use of anticoagulants- Primary Long-term (current) use of anticoagulants ATRIAL FIBRILLATION History of DVT (deep vein thrombosis) Personal history of venous thrombosis and embolism documented in this encounter [facility] note* Diagnosis shelter (current) use of anticoagulants- Primary Long-term (current) use of anticoagulants History of DVT (deep vein thrombosis) Personal history of venous thrombosis and embolism documented in this encounter [facility] note* Diagnosis Essential hypertension, benign documented in this encounter [facility] noteNo assessment information availableK[facility] Work Phone: Evaluation note* Diagnosis Visit for suture removal- Primary Encounter for removal of sutures documented in this encounter [facility] note* Diagnosis Vertigo- Primary Dizziness and giddiness documented in this encounter [facility] note* Diagnosis MARY BETH (obstructive sleep apnea)- Primary Obstructive sleep apnea (adult) (pediatric) documented in this encounter [facility] note* Diagnosis Renal insufficiency- Primary Unspecified disorder of kidney and ureter documented in this encounter [facility] note* Diagnosis Stage 3b chronic kidney disease (HCC)- Primary documented in this encounter [facility] note* Diagnosis Hyperlipidemia LDL goal <100 Other and unspecified hyperlipidemia documented in this encounter [facility] for referral (narrative)* Outpatient Procedure (Routine) - Authorized Specialty Diagnoses / Procedures Referred By Contac t Referred To Contact [facility] Diagnoses SOB (shortness of breath) Lightheadedness Procedures SIX MINUTE WALK CARDIOPULMONARY EXERCISE STRESS Tien Serrano MD [address] [place] [address] Res[facility] [place] [id number] Referral ID Status Reason Start Date Expiration Date Visits Requested Visits Authorized [id number] Authorized Auto-Generat ed Referral 02/10/2024 03/11/2025 1 1 * Outpatient Procedure (Routine) - Authorized Specialty Diagnoses / Procedures Referred By Contac t Referred To Contact [facility] [place] Diagnoses SOB (shortness of breath) Lightheadedness Procedures LUNG VOLUMES Tien Serrano MD [address] [place] [address] Respiratory [place] [id number] Referral ID Status Reason Start Date Expiration Date Visits Requested Visits Authorized [id number] Authorized Auto-Generat ed Referral 02/10/2024 03/11/2025 1 1 * Outpatient Procedure (Routine) - Authorized Specialty Diagnoses / Procedures Referred By Contac t Referred To Contact [facility] Diagnoses SOB (shortness of breath) Lightheadedness Procedures SPIROMETRY WITH DILATOR IF OBSTRUCTED BRNCDILAT RSPSE SPMTRY PRE&POST-BRNCDILAT ADMN Tien Serrano MD [address] [place] [address] Res[facility] [place] [address] [place] [address] Referral ID Status Reason Start Date Expiration Date Visits Requested Visits Authorized [id number] Authorized Auto-Generat ed Referral 02/10/2024 03/11/2025 1 1 [facility])No reason for referral information availableSt. [facility] Work Phone: Reason for visit Narrative* Radiology (Routine) - Closed Specialty Diagnoses / Procedures Referred By Contac t Referred To Contact Diagnoses Atrial fibrillation, unspecified type Dyspnea on exertion Procedures ECHOCARDIOGRAM ME ECHO TTHRC R-T 2D W/WOM-MODE COMPL SPEC&COLR D Tien Head DO [address] [place] [address] Phone: tel: fax: Referral ID Status Reason Start Date Expiration Date Visits Re quested Visits Authorized [id number] Closed 11/09/2024 12/04/2025 1 1 [facility] Reason for Referral Status Reason Specialty Diagnoses / Procedures Referred By Contact Referred To Contact Closed Cardiovascular Medicine Diagnoses Moderate mitral regurgitation Procedures ECHOCARDIOGRAM Tien Head DO [address] [place] [address] [facility] Echocardiograph y [address] [place] [address] Status Reason Specialty Diagnoses / Procedures Re ferred By Contact Referred To Contact New Request Diagnoses Moderate mitral regurgitation Procedures ECHOCARDIOGRAM Tien Head DO [address] [place] [address] Specialty Diagnoses / Procedures Referred By Contac t Referred To Contact Cardiology Diagnoses Congestive heart failure, unspecified HF chronicity, unspecified heart failure type (HCC) Procedures CONSULT TO CARDIOLOGY Tien Serrano MD [address] [place] [address] Referral ID Status Reason Start Date Expiration Date Visits Requested Visits Authorized [id number] Ref Not Required PCP Requested Referral 10/11/2021 10/11/2022 1 1 Specialty Diagnoses / Procedures Referred By Contac t Referred To Contact General Surgery Diagnoses Screening for colon cancer Procedures CONSULT TO GENERAL SURGERY OFFICE/OUTPATIENT [facility] MDM 60-74 MINUTES Katy Galdamez APRN.CNP [address] [place] [address] Referral ID Status Reason Start Date Expiration Date Visits Requested Visits Authorized [id number] Pending Review PCP Requested Referral 11/24/2022 11/24/2023 1 1 Specialty Diagnoses / Procedures Referred By Contac t Referred To Contact Diagnoses Generalized anxiety disorder Paulino Ruiz PA-C [address] [place] [address] Referral ID Status Reason Start Date Expiration Date V isits Requested Visits Authorized [id number] Authorized 01/20/2023 02/19/2024 1 1 Specialty Diagnoses / Procedures Referred By Contac t Referred To Contact Diagnoses Moderate mitral regurgitation Procedures ECHOCARDIOGRAM ME ECHO HEART XTHORACIC,COMPLETE W DOPPLER Tien Head DO [address] [place] [address] Referral ID Status Reason Start Date Expiration Date Visits Re quested Visits Authorized [id number] Closed 10/15/2022 11/09/2023 1 1 Specialty Diagnoses / Procedures Referred By Contac t Referred To Contact Ent - Otolaryngology Diagnoses Balance problem Impacted cerumen of left ear Procedures CONSULT TO ENT OFFICE/OUTPATIENT [facility] MDM 60 MINUTES Tien Serrano MD [address] [place] [address] Referral ID Status Reason Start Date Expiration Date Visits Requested Visits Authorized [id number] Authorized PCP Requested Referral 11/11/2023 11/10/2024 1 1 Specialty Diagnoses / Procedures Referred By Contac t Referred To Contact [facility] Diagnoses Lightheaded Benign paroxysmal positional vertigo of right ear Procedures CONSULT TO PHYSICAL THERAPY PHYSICAL THERAPY EVALUATION HIGH COMPLEX 45 MINS Tien Serrano MD [address] [place] [address] [facility] [place] [address] Referral ID Status Reason Start Date Expiration Date Visits Requested Visits Authorized [id number] Authorized Auto-Generat ed Referral 06/08/2023 06/07/2024 99 [...] (peripheral) insufficiency Chronic anticoagulation Asymptomatic lv dysfunction 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 Lipids performed in [place] under good control. Tien Head DO 11/11/2018 [...] RE, EA 15 MIN. Tien Serrano MD [address] [place] [address] Phone: tel: fax: [facility] [address] [place] [address] Referral ID Status Reason Start Date Expiration Date Visits Requested Visits Authorized [id number] Authorized Auto-Generat ed Referral 06/08/2024 06/07/2025 99 99 Reason Comments PT Progress Note Specialty Diagnoses / Procedures Referred By Maria Isabel zhao Referred To Contact [facility] Diagnoses Lightheaded Benign paroxysmal positional vertigo of right ear Procedures CONSULT TO PHYSICAL THERAPY PHYSICAL THERAPY EVALUATION HIGH COMPLEX 45 MINS Tien Serrano MD [address] [place] [address] [facility] [place] [address] [place] [address] Referral ID Status Reason Start Date Expiration Date Visits Requested Visits Authorized [id number] Authorized Auto-Generat ed Referral 06/08/2023 06/07/2024 99 99 Reason Comments Physical Therapy Status Reason Specialty Diagnoses / Procedures Referred By Contact Referred To Contact Closed Cardiovascular Medicine Diagnoses Moderate mitral regurgitation Procedures ECHOCARDIOGRAM Tien Head, DO [address] [place] [address] [facility] Echocardiograph y [address] [place] [address] Reason Comments Follow-up One year follow up. [...] Contact Diagnoses Moderate mitral regurgitation Procedures ECHOCARDIOGRAM ME ECHO HEART XTHORACIC,COMPLETE W DOPPLER Tien Head, DO [address] [place] [address] Referral ID Status Reason Start Date Expiration Date Visits Re quested Visits Authorized [id number] Closed 10/15/2022 11/09/2023 1 1 Reason Onset [...] on exertion Procedures ECHOCARDIOGRAM TREADMILL STRESS TEST ME ECHO TTHRC R-T 2D W/WO M-MODE REST&STRS CONT ECG ME DOP ECHOCARD PULSE WAVE W/SPECTRAL F-UP/LMTD STD ME DOP ECHOCARD COLOR FLOW VELOCITY MAPPING ME ECHO TTHRC R-T 2D W/WO M-MODE COMPLETE REST&ST Tien Head, DO [address] [place] [address] [facility] [address] [place] [address] Referral ID Status Reason Start Date Expiration Date Visits Re quested Visits Authorized [id number] Closed 11/09/2023 12/03/2024 1 1 Reason Onset [...] RSPSE SPMTRY PRE&POST-BRNCDILAT ADMN Tien Serrano MD [address] [place] [address] [address] [address] Referral ID Status Reason Start Date Expiration Date V isits Requested Visits Authorized [id number] Closed Auto-Generate d Referral 02/10/2024 03/11/2025 1 1 Specialty Diagnoses / Procedures Referred By Contac t Referred To Contact [facility] [place] Diagnoses SOB (shortness of breath) Lightheadedness Procedures SIX MINUTE WALK CARDIOPULMONARY EXERCISE STRESS Tien Serrano MD [address] [place] [address] [address] Referral ID Status Reason Start Date Expiration Date V isits Requested Visits Authorized [id number] Closed Auto-Generate d Referral 02/10/2024 03/11/2025 1 1 Specialty Diagnoses / Procedures Referred By Contac t Referred To Contact [facility] [place] Diagnoses SOB (shortness of breath) Lightheadedness Procedures LUNG VOLUMES Tien Serrano MD [facility] [place] [address] [address] Referral ID Status Reason Start Date Expiration Date V isits Requested Visits Authorized [id number] Closed Auto-Generate d Referral 02/10/2024 03/11/2025 1 [...] HIGH COMPLEX 45 MINS Tien Serrano MD [address] [place] [address] [facility] [address] [place] [address] Reason Onset Date Comments Anticoagulation Telephone Fu [...] Removal Suture removal left forearm placed in [place] Reason Onset Date Comments Anticoagulation Telephone Fu [...] any alcohol or drug abuse patient.[facility] HospitalIn the event this information is protected by the Federal Confidentiality of Alcohol and Drug Abuse Patient Records regulations: The Federal rules restrict any use of the information to criminally investigate or prosecute any alcohol or drug abuse patient.[facility] HospitalIn the event this information is protected by the Federal Confidentiality of Alcohol and Drug Abuse Patient Records regulations: The Federal rules restrict any use of the information to criminally investigate or prosecute any alcohol or drug abuse patient.[facility] HospitalIn the event this information is protected by the Federal Confidentiality of Alcohol and Drug Abuse Patient Records regulations: The Federal rules restrict any use of the information to criminally investigate or prosecute any alcohol or drug abuse patient.[facility] HospitalIn the event this information is protected by the Federal Confidentiality of Alcohol and Drug Abuse Patient Records regulations: The Federal rules restrict any use of the information to criminally investigate or prosecute any alcohol or drug abuse patient.[facility] HospitalIn the event this information is protected by the Federal Confidentiality of Alcohol and Drug Abuse Patient Records regulations: The Federal rules restrict any use of the information to criminally investigate or prosecute any alcohol or drug abuse patient.[facility] HospitalIn the event this information is protected by the Federal Confidentiality of Alcohol and Drug Abuse Patient Records regulations: The Federal rules restrict any use of the information to criminally investigate or prosecute any alcohol or drug abuse patient.[facility] HospitalIn the event this information is protected by the Federal Confidentiality of Alcohol and Drug Abuse Patient Records regulations: The Federal rules restrict any use of the information to criminally investigate or prosecute any alcohol or drug abuse patient.[facility] HospitalIn the event this information is protected by the Federal Confidentiality of Alcohol and Drug Abuse Patient Records regulations: The Federal rules restrict any use of the information to criminally investigate or prosecute any alcohol or drug abuse patient.[facility] HospitalIn the event this information is protected by the Federal Confidentiality of Alcohol and Drug Abuse Patient Records regulations: The Federal rules restrict any use of the information to criminally investigate or prosecute any alcohol or drug abuse patient.[facility] HospitalIn the event this information is protected by the Federal Confidentiality of Alcohol and Drug Abuse Patient Records regulations: The Federal rules restrict any use of the information to criminally investigate or prosecute any alcohol or drug abuse patient.[facility] HospitalIn the event this information is protected by the Federal Confidentiality of Alcohol and Drug Abuse Patient Records regulations: The Federal rules restrict any use of the information to criminally investigate or prosecute any alcohol or drug abuse patient.[facility] HospitalIn the event this information is protected by the Federal Confidentiality of Alcohol and Drug Abuse Patient Records regulations: The Federal rules restrict any use of the information to criminally investigate or prosecute any alcohol or drug abuse patient.[facility] HospitalIn the event this information is protected by the Federal Confidentiality of Alcohol and Drug Abuse Patient Records regulations: The Federal rules restrict any use of the information to criminally investigate or prosecute any alcohol or drug abuse patient.[facility] HospitalIn the event this information is protected by the Federal Confidentiality of Alcohol and Drug Abuse Patient Records regulations: The Federal rules restrict any use of the information to criminally investigate or prosecute any alcohol or drug abuse patient.[facility] HospitalIn the event this information is protected by the Federal Confidentiality of Alcohol and Drug Abuse Patient Records regulations: The Federal rules restrict any use of the information to criminally investigate or prosecute any alcohol or drug abuse patient.[facility] HospitalIn the event this information is protected by the Federal Confidentiality of Alcohol and Drug Abuse Patient Records regulations: The Federal rules restrict any use of the information to criminally investigate or prosecute any alcohol or drug abuse patient.[facility] HospitalIn the event this information is protected by the Federal Confidentiality of Alcohol and Drug Abuse Patient Records regulations: The Federal rules restrict any use of the information to criminally investigate or prosecute any alcohol or drug abuse patient.[facility] HospitalIn the event this information is protected by the Federal Confidentiality of Alcohol and Drug Abuse Patient Records regulations: The Federal rules restrict any use of the information to criminally investigate or prosecute any alcohol or drug abuse patient.[facility] HospitalIn the event this information is protected by the Federal Confidentiality of Alcohol and Drug Abuse Patient Records regulations: The Federal rules restrict any use of the information to criminally investigate or prosecute any alcohol or drug abuse patient.[facility] HospitalIn the event this information is protected by the Federal Confidentiality of Alcohol and Drug Abuse Patient Records regulations: The Federal rules restrict any use of the information to criminally investigate or prosecute any alcohol or drug abuse patient.[facility] HospitalIn the event this information is protected by the Federal Confidentiality of Alcohol and Drug Abuse Patient Records regulations: The Federal rules restrict any use of the information to criminally investigate or prosecute any alcohol or drug abuse patient.[facility] HospitalIn the event this information is protected by the Federal Confidentiality of Alcohol and Drug Abuse Patient Records regulations: The Federal rules restrict any use of the information to criminally investigate or prosecute any alcohol or drug abuse patient.[facility] HospitalIn the event this information is protected by the Federal Confidentiality of Alcohol and Drug Abuse Patient Records regulations: The Federal rules restrict any use of the information to criminally investigate or prosecute any alcohol or drug abuse patient.[facility] HospitalIn the event this information is protected by the Federal Confidentiality of Alcohol and Drug Abuse Patient Records regulations: The Federal rules restrict any use of the information to criminally investigate or prosecute any alcohol or drug abuse patient.[facility] HospitalIn the event this information is protected by the Federal Confidentiality of Alcohol and Drug Abuse Patient Records regulations: The Federal rules restrict any use of the information to criminally investigate or prosecute any alcohol or drug abuse patient.[facility] HospitalIn the event this information is protected by the Federal Confidentiality of Alcohol and Drug Abuse Patient Records regulations: The Federal rules restrict any use of the information to criminally investigate or prosecute any alcohol or drug abuse patient.[facility] HospitalIn the event this information is protected by the Federal Confidentiality of Alcohol and Drug Abuse Patient Records regulations: The Federal rules restrict any use of the information to criminally investigate or prosecute any alcohol or drug abuse patient.[facility] HospitalIn the event this information is protected by the Federal Confidentiality of Alcohol and Drug Abuse Patient Records regulations: The Federal rules restrict any use of the information to criminally investigate or prosecute any alcohol or drug abuse patient.[facility] HospitalIn the event this information is protected by the Federal Confidentiality of Alcohol and Drug Abuse Patient Records regulations: The Federal rules restrict any use of the information to criminally investigate or prosecute any alcohol or drug abuse patient.[facility] HospitalIn the event this information is protected by the Federal Confidentiality of Alcohol and Drug Abuse Patient Records regulations: The Federal rules restrict any use of the information to criminally investigate or prosecute any alcohol or drug abuse patient.[facility] HospitalIn the event this information is protected by the Federal Confidentiality of Alcohol and Drug Abuse Patient Records regulations: The Federal rules restrict any use of the information to criminally investigate or prosecute any alcohol or drug abuse patient.[facility] HospitalIn the event this information is protected by the Federal Confidentiality of Alcohol and Drug Abuse Patient Records regulations: The Federal rules restrict any use of the information to criminally investigate or prosecute any alcohol or drug abuse patient.[facility] HospitalIn the event this information is protected by the Federal Confidentiality of Alcohol and Drug Abuse Patient Records regulations: The Federal rules restrict any use of the information to criminally investigate or prosecute any alcohol or drug abuse patient.[facility] HospitalIn the event this information is protected by the Federal Confidentiality of Alcohol and Drug Abuse Patient Records regulations: The Federal rules restrict any use of the information to criminally investigate or prosecute any alcohol or drug abuse patient.[facility] HospitalIn the event this information is protected by the Federal Confidentiality of Alcohol and Drug Abuse Patient Records regulations: The Federal rules restrict any use of the information to criminally investigate or prosecute any alcohol or drug abuse patient.[facility] HospitalIn the event this information is protected by the Federal Confidentiality of Alcohol and Drug Abuse Patient Records regulations: The Federal rules restrict any use of the information to criminally investigate or prosecute any alcohol or drug abuse patient.[facility] HospitalIn the event this information is protected by the Federal Confidentiality of Alcohol and Drug Abuse Patient Records regulations: The Federal rules restrict any use of the information to criminally investigate or prosecute any alcohol or drug abuse patient.[facility] HospitalIn the event this information is protected by the Federal Confidentiality of Alcohol and Drug Abuse Patient Records regulations: The Federal rules restrict any use of the information to criminally investigate or prosecute any alcohol or drug abuse patient.[facility] HospitalIn the event this information is protected by the Federal Confidentiality of Alcohol and Drug Abuse Patient Records regulations: The Federal rules restrict any use of the information to criminally investigate or prosecute any alcohol or drug abuse patient.[facility] HospitalIn the event this information is protected by the Federal Confidentiality of Alcohol and Drug Abuse Patient Records regulations: The Federal rules restrict any use of the information to criminally investigate or prosecute any alcohol or drug abuse patient.[facility] HospitalIn the event this information is protected by the Federal Confidentiality of Alcohol and Drug Abuse Patient Records regulations: The Federal rules restrict any use of the information to criminally investigate or prosecute any alcohol or drug abuse patient.[facility] HospitalIn the event this information is protected by the Federal Confidentiality of Alcohol and Drug Abuse Patient Records regulations: The Federal rules restrict any use of the information to criminally investigate or prosecute any alcohol or drug abuse patient.[facility] HospitalIn the event this information is protected by the Federal Confidentiality of Alcohol and Drug Abuse Patient Records regulations: The Federal rules restrict any use of the information to criminally investigate or prosecute any alcohol or drug abuse patient.[facility] HospitalIn the event this information is protected by the Federal Confidentiality of Alcohol and Drug Abuse Patient Records regulations: The Federal rules restrict any use of the information to criminally investigate or prosecute any alcohol or drug abuse patient.[facility] HospitalIn the event this information is protected by the Federal Confidentiality of Alcohol and Drug Abuse Patient Records regulations: The Federal rules restrict any use of the information to criminally investigate or prosecute any alcohol or drug abuse patient.[facility] HospitalIn the event this information is protected by the Federal Confidentiality of Alcohol and Drug Abuse Patient Records regulations: The Federal rules restrict any use of the information to criminally investigate or prosecute any alcohol or drug abuse patient.[facility] HospitalIn the event this information is protected by the Federal Confidentiality of Alcohol and Drug Abuse Patient Records regulations: The Federal rules restrict any use of the information to criminally investigate or prosecute any alcohol or drug abuse patient.[facility] HospitalIn the event this information is protected by the Federal Confidentiality of Alcohol and Drug Abuse Patient Records regulations: The Federal rules restrict any use of the information to criminally investigate or prosecute any alcohol or drug abuse patient.[facility] HospitalIn the event this information is protected by the Federal Confidentiality of Alcohol and Drug Abuse Patient Records regulations: The Federal rules restrict any use of the information to criminally investigate or prosecute any alcohol or drug abuse patient.[facility] HospitalIn the event this information is protected by the Federal Confidentiality of Alcohol and Drug Abuse Patient Records regulations: The Federal rules restrict any use of the information to criminally investigate or prosecute any alcohol or drug abuse patient.[facility] HospitalIn the event this information is protected by the Federal Confidentiality of Alcohol and Drug Abuse Patient Records regulations: The Federal rules restrict any use of the information to criminally investigate or prosecute any alcohol or drug abuse patient.[facility] HospitalIn the event this information is protected by the Federal Confidentiality of Alcohol and Drug Abuse Patient Records regulations: The Federal rules restrict any use of the information to criminally investigate or prosecute any alcohol or drug abuse patient.[facility] HospitalIn the event this information is protected by the Federal Confidentiality of Alcohol and Drug Abuse Patient Records regulations: The Federal rules restrict any use of the information to criminally investigate or prosecute any alcohol or drug abuse patient.[facility] HospitalIn the event this information is protected by the Federal Confidentiality of Alcohol and Drug Abuse Patient Records regulations: The Federal rules restrict any use of the information to criminally investigate or prosecute any alcohol or drug abuse patient.[facility] HospitalIn the event this information is protected by the Federal Confidentiality of Alcohol and Drug Abuse Patient Records regulations: The Federal rules restrict any use of the information to criminally investigate or prosecute any alcohol or drug abuse patient.[facility] HospitalIn the event this information is protected by the Federal Confidentiality of Alcohol and Drug Abuse Patient Records regulations: The Federal rules restrict any use of the information to criminally investigate or prosecute any alcohol or drug abuse patient.[facility] HospitalIn the event this information is protected by the Federal Confidentiality of Alcohol and Drug Abuse Patient Records regulations: The Federal rules restrict any use of the information to criminally investigate or prosecute any alcohol or drug abuse patient.[facility] HospitalIn the event this information is protected by the Federal Confidentiality of Alcohol and Drug Abuse Patient Records regulations: The Federal rules restrict any use of the information to criminally investigate or prosecute any alcohol or drug abuse patient.[facility] HospitalIn the event this information is protected by the Federal Confidentiality of Alcohol and Drug Abuse Patient Records regulations: The Federal rules restrict any use of the information to criminally investigate or prosecute any alcohol or drug abuse patient.[facility] HospitalIn the event this information is protected by the Federal Confidentiality of Alcohol and Drug Abuse Patient Records regulations: The Federal rules restrict any use of the information to criminally investigate or prosecute any alcohol or drug abuse patient.[facility] HospitalIn the event this information is protected by the Federal Confidentiality of Alcohol and Drug Abuse Patient Records regulations: The Federal rules restrict any use of the information to criminally investigate or prosecute any alcohol or drug abuse patient.[facility] HospitalIn the event this information is protected by the Federal Confidentiality of Alcohol and Drug Abuse Patient Records regulations: The Federal rules restrict any use of the information to criminally investigate or prosecute any alcohol or drug abuse patient.[facility] HospitalIn the event this information is protected by the Federal Confidentiality of Alcohol and Drug Abuse Patient Records regulations: The Federal rules restrict any use of the information to criminally investigate or prosecute any alcohol or drug abuse patient.[facility] HospitalIn the event this information is protected by the Federal Confidentiality of Alcohol and Drug Abuse Patient Records regulations: The Federal rules restrict any use of the information to criminally investigate or prosecute any alcohol or drug abuse patient.[facility] HospitalIn the event this information is protected by the Federal Confidentiality of Alcohol and Drug Abuse Patient Records regulations: The Federal rules restrict any use of the information to criminally investigate or prosecute any alcohol or drug abuse patient.[facility] HospitalIn the event this information is protected by the Federal Confidentiality of Alcohol and Drug Abuse Patient Records regulations: The Federal rules restrict any use of the information to criminally investigate or prosecute any alcohol or drug abuse patient.[facility] HospitalIn the event this information is protected by the Federal Confidentiality of Alcohol and Drug Abuse Patient Records regulations: The Federal rules restrict any use of the information to criminally investigate or prosecute any alcohol or drug abuse patient.[facility] HospitalIn the event this information is protected by the Federal Confidentiality of Alcohol and Drug Abuse Patient Records regulations: The Federal rules restrict any use of the information to criminally investigate or prosecute any alcohol or drug abuse patient.[facility] HospitalIn the event this information is protected by the Federal Confidentiality of Alcohol and Drug Abuse Patient Records regulations: The Federal rules restrict any use of the information to criminally investigate or prosecute any alcohol or drug abuse patient.[facility] HospitalIn the event this information is protected by the Federal Confidentiality of Alcohol and Drug Abuse Patient Records regulations: The Federal rules restrict any use of the information to criminally investigate or prosecute any alcohol or drug abuse patient.[facility] HospitalIn the event this information is protected by the Federal Confidentiality of Alcohol and Drug Abuse Patient Records regulations: The Federal rules restrict any use of the information to criminally investigate or prosecute any alcohol or drug abuse patient.[facility] HospitalIn the event this information is protected by the Federal Confidentiality of Alcohol and Drug Abuse Patient Records regulations: The Federal rules restrict any use of the information to criminally investigate or prosecute any alcohol or drug abuse patient.[facility] HospitalIn the event this information is protected by the Federal Confidentiality of Alcohol and Drug Abuse Patient Records regulations: The Federal rules restrict any use of the information to criminally investigate or prosecute any alcohol or drug abuse patient.[facility] HospitalIn the event this information is protected by the Federal Confidentiality of Alcohol and Drug Abuse Patient Records regulations: The Federal rules restrict any use of the information to criminally investigate or prosecute any alcohol or drug abuse patient.[facility] HospitalIn the event this information is protected by the Federal Confidentiality of Alcohol and Drug Abuse Patient Records regulations: The Federal rules restrict any use of the information to criminally investigate or prosecute any alcohol or drug abuse patient.[facility] HospitalIn the event this information is protected by the Federal Confidentiality of Alcohol and Drug Abuse Patient Records regulations: The Federal rules restrict any use of the information to criminally investigate or prosecute any alcohol or drug abuse patient.[facility] HospitalIn the event this information is protected by the Federal Confidentiality of Alcohol and Drug Abuse Patient Records regulations: The Federal rules restrict any use of the information to criminally investigate or prosecute any alcohol or drug abuse patient.[facility] HospitalIn the event this information is protected by the Federal Confidentiality of Alcohol and Drug Abuse Patient Records regulations: The Federal rules restrict any use of the information to criminally investigate or prosecute any alcohol or drug abuse patient.[facility] HospitalIn the event this information is protected by the Federal Confidentiality of Alcohol and Drug Abuse Patient Records regulations: The Federal rules restrict any use of the information to criminally investigate or prosecute any alcohol or drug abuse patient.[facility] HospitalIn the event this information is protected by the Federal Confidentiality of Alcohol and Drug Abuse Patient Records regulations: The Federal rules restrict any use of the information to criminally investigate or prosecute any alcohol or drug abuse patient.[facility] HospitalIn the event this information is protected by the Federal Confidentiality of Alcohol and Drug Abuse Patient Records regulations: The Federal rules restrict any use of the information to criminally investigate or prosecute any alcohol or drug abuse patient.[facility] HospitalIn the event this information is protected by the Federal Confidentiality of Alcohol and Drug Abuse Patient Records regulations: The Federal rules restrict any use of the information to criminally investigate or prosecute any alcohol or drug abuse patient.[facility] HospitalIn the event this information is protected by the Federal Confidentiality of Alcohol and Drug Abuse Patient Records regulations: The Federal rules restrict any use of the information to criminally investigate or prosecute any alcohol or drug abuse patient.[facility] HospitalIn the event this information is protected by the Federal Confidentiality of Alcohol and Drug Abuse Patient Records regulations: The Federal rules restrict any use of the information to criminally investigate or prosecute any alcohol or drug abuse patient.[facility] HospitalIn the event this information is protected by the Federal Confidentiality of Alcohol and Drug Abuse Patient Records regulations: The Federal rules restrict any use of the information to criminally investigate or prosecute any alcohol or drug abuse patient.[facility] HospitalIn the event this information is protected by the Federal Confidentiality of Alcohol and Drug Abuse Patient Records regulations: The Federal rules restrict any use of the information to criminally investigate or prosecute any alcohol or drug abuse patient.[facility] HospitalIn the event this information is protected by the Federal Confidentiality of Alcohol and Drug Abuse Patient Records regulations: The Federal rules restrict any use of the information to criminally investigate or prosecute any alcohol or drug abuse patient.[facility] HospitalIn the event this information is protected by the Federal Confidentiality of Alcohol and Drug Abuse Patient Records regulations: The Federal rules restrict any use of the information to criminally investigate or prosecute any alcohol or drug abuse patient.[facility] HospitalIn the event this information is protected by the Federal Confidentiality of Alcohol and Drug Abuse Patient Records regulations: The Federal rules restrict any use of the information to criminally investigate or prosecute any alcohol or drug abuse patient.[facility] HospitalIn the event this information is protected by the Federal Confidentiality of Alcohol and Drug Abuse Patient Records regulations: The Federal rules restrict any use of the information to criminally investigate or prosecute any alcohol or drug abuse patient.[facility] HospitalIn the event this information is protected by the Federal Confidentiality of Alcohol and Drug Abuse Patient Records regulations: The Federal rules restrict any use of the information to criminally investigate or prosecute any alcohol or drug abuse patient.[facility] HospitalIn the event this information is protected by the Federal Confidentiality of Alcohol and Drug Abuse Patient Records regulations: The Federal rules restrict any use of the information to criminally investigate or prosecute any alcohol or drug abuse patient.[facility] HospitalIn the event this information is protected by the Federal Confidentiality of Alcohol and Drug Abuse Patient Records regulations: The Federal rules restrict any use of the information to criminally investigate or prosecute any alcohol or drug abuse patient.[facility] HospitalIn the event this information is protected by the Federal Confidentiality of Alcohol and Drug Abuse Patient Records regulations: The Federal rules restrict any use of the information to criminally investigate or prosecute any alcohol or drug abuse patient.[facility] HospitalIn the event this information is protected by the Federal Confidentiality of Alcohol and Drug Abuse Patient Records regulations: The Federal rules restrict any use of the information to criminally investigate or prosecute any alcohol or drug abuse patient.[facility] HospitalIn the event this information is protected by the Federal Confidentiality of Alcohol and Drug Abuse Patient Records regulations: The Federal rules restrict any use of the information to criminally investigate or prosecute any alcohol or drug abuse patient.[facility] HospitalIn the event this information is protected by the Federal Confidentiality of Alcohol and Drug Abuse Patient Records regulations: The Federal rules restrict any use of the information to criminally investigate or prosecute any alcohol or drug abuse patient.[facility] HospitalIn the event this information is protected by the Federal Confidentiality of Alcohol and Drug Abuse Patient Records regulations: The Federal rules restrict any use of the information to criminally investigate or prosecute any alcohol or drug abuse patient.[facility] HospitalIn the event this information is protected by the Federal Confidentiality of Alcohol and Drug Abuse Patient Records regulations: The Federal rules restrict any use of the information to criminally investigate or prosecute any alcohol or drug abuse patient.[facility] HospitalIn the event this information is protected by the Federal Confidentiality of Alcohol and Drug Abuse Patient Records regulations: The Federal rules restrict any use of the information to criminally investigate or prosecute any alcohol or drug abuse patient.[facility] HospitalIn the event this information is protected by the Federal Confidentiality of Alcohol and Drug Abuse Patient Records regulations: The Federal rules restrict any use of the information to criminally investigate or prosecute any alcohol or drug abuse patient.[facility] HospitalIn the event this information is protected by the Federal Confidentiality of Alcohol and Drug Abuse Patient Records regulations: The Federal rules restrict any use of the information to criminally investigate or prosecute any alcohol or drug abuse patient.[facility] HospitalIn the event this information is protected by the Federal Confidentiality of Alcohol and Drug Abuse Patient Records regulations: The Federal rules restrict any use of the information to criminally investigate or prosecute any alcohol or drug abuse patient.[facility] HospitalIn the event this information is protected by the Federal Confidentiality of Alcohol and Drug Abuse Patient Records regulations: The Federal rules restrict any use of the information to criminally investigate or prosecute any alcohol or drug abuse patient.[facility] HospitalIn the event this information is protected by the Federal Confidentiality of Alcohol and Drug Abuse Patient Records regulations: The Federal rules restrict any use of the information to criminally investigate or prosecute any alcohol or drug abuse patient.[facility] HospitalIn the event this information is protected by the Federal Confidentiality of Alcohol and Drug Abuse Patient Records regulations: The Federal rules restrict any use of the information to criminally investigate or prosecute any alcohol or drug abuse patient.[facility] HospitalIn the event this information is protected by the Federal Confidentiality of Alcohol and Drug Abuse Patient Records regulations: The Federal rules restrict any use of the information to criminally investigate or prosecute any alcohol or drug abuse patient.[facility] HospitalIn the event this information is protected by the Federal Confidentiality of Alcohol and Drug Abuse Patient Records regulations: The Federal rules restrict any use of the information to criminally investigate or prosecute any alcohol or drug abuse patient.[facility] HospitalIn the event this information is protected by the Federal Confidentiality of Alcohol and Drug Abuse Patient Records regulations: The Federal rules restrict any use of the information to criminally investigate or prosecute any alcohol or drug abuse patient.[facility] HospitalIn the event this information is protected by the Federal Confidentiality of Alcohol and Drug Abuse Patient Records regulations: The Federal rules restrict any use of the information to criminally investigate or prosecute any alcohol or drug abuse patient.[facility] HospitalIn the event this information is protected by the Federal Confidentiality of Alcohol and Drug Abuse Patient Records regulations: The Federal rules restrict any use of the information to criminally investigate or prosecute any alcohol or drug abuse patient.[facility] HospitalIn the event this information is protected by the Federal Confidentiality of Alcohol and Drug Abuse Patient Records regulations: The Federal rules restrict any use of the information to criminally investigate or prosecute any alcohol or drug abuse patient.[facility] HospitalIn the event this information is protected by the Federal Confidentiality of Alcohol and Drug Abuse Patient Records regulations: The Federal rules restrict any use of the information to criminally investigate or prosecute any alcohol or drug abuse patient.[facility] HospitalIn the event this information is protected by the Federal Confidentiality of Alcohol and Drug Abuse Patient Records regulations: The Federal rules restrict any use of the information to criminally investigate or prosecute any alcohol or drug abuse patient.[facility] HospitalIn the event this information is protected by the Federal Confidentiality of Alcohol and Drug Abuse Patient Records regulations: The Federal rules restrict any use of the information to criminally investigate or prosecute any alcohol or drug abuse patient.[facility] HospitalIn the event this information is protected by the Federal Confidentiality of Alcohol and Drug Abuse Patient Records regulations: The Federal rules restrict any use of the information to criminally investigate or prosecute any alcohol or drug abuse patient.[facility] HospitalIn the event this information is protected by the Federal Confidentiality of Alcohol and Drug Abuse Patient Records regulations: The Federal rules restrict any use of the information to criminally investigate or prosecute any alcohol or drug abuse patient.[facility] HospitalIn the event this information is protected by the Federal Confidentiality of Alcohol and Drug Abuse Patient Records regulations: The Federal rules restrict any use of the information to criminally investigate or prosecute any alcohol or drug abuse patient.[facility] HospitalIn the event this information is protected by the Federal Confidentiality of Alcohol and Drug Abuse Patient Records regulations: The Federal rules restrict any use of the information to criminally investigate or prosecute any alcohol or drug abuse patient.[facility] HospitalIn the event this information is protected by the Federal Confidentiality of Alcohol and Drug Abuse Patient Records regulations: The Federal rules restrict any use of the information to criminally investigate or prosecute any alcohol or drug abuse patient.[facility] HospitalIn the event this information is protected by the Federal Confidentiality of Alcohol and Drug Abuse Patient Records regulations: The Federal rules restrict any use of the information to criminally investigate or prosecute any alcohol or drug abuse patient.[facility] HospitalIn the event this information is protected by the Federal Confidentiality of Alcohol and Drug Abuse Patient Records regulations: The Federal rules restrict any use of the information to criminally investigate or prosecute any alcohol or drug abuse patient.[facility] HospitalIn the event this information is protected by the Federal Confidentiality of Alcohol and Drug Abuse Patient Records regulations: The Federal rules restrict any use of the information to criminally investigate or prosecute any alcohol or drug abuse patient.[facility] HospitalIn the event this information is protected by the Federal Confidentiality of Alcohol and Drug Abuse Patient Records regulations: The Federal rules restrict any use of the information to criminally investigate or prosecute any alcohol or drug abuse patient.[facility] HospitalIn the event this information is protected by the Federal Confidentiality of Alcohol and Drug Abuse Patient Records regulations: The Federal rules restrict any use of the information to criminally investigate or prosecute any alcohol or drug abuse patient.[facility] HospitalIn the event this information is protected by the Federal Confidentiality of Alcohol and Drug Abuse Patient Records regulations: The Federal rules restrict any use of the information to criminally investigate or prosecute any alcohol or drug abuse patient.[facility] HospitalIn the event this information is protected by the Federal Confidentiality of Alcohol and Drug Abuse Patient Records regulations: The Federal rules restrict any use of the information to criminally investigate or prosecute any alcohol or drug abuse patient.[facility] HospitalIn the event this information is protected by the Federal Confidentiality of Alcohol and Drug Abuse Patient Records regulations: The Federal rules restrict any use of the information to criminally investigate or prosecute any alcohol or drug abuse patient.[facility] HospitalIn the event this information is protected by the Federal Confidentiality of Alcohol and Drug Abuse Patient Records regulations: The Federal rules restrict any use of the information to criminally investigate or prosecute any alcohol or drug abuse patient.[facility] HospitalIn the event this information is protected by the Federal Confidentiality of Alcohol and Drug Abuse Patient Records regulations: The Federal rules restrict any use of the information to criminally investigate or prosecute any alcohol or drug abuse patient.[facility] HospitalIn the event this information is protected by the Federal Confidentiality of Alcohol and Drug Abuse Patient Records regulations: The Federal rules restrict any use of the information to criminally investigate or prosecute any alcohol or drug abuse patient.[facility] HospitalIn the event this information is protected by the Federal Confidentiality of Alcohol and Drug Abuse Patient Records regulations: The Federal rules restrict any use of the information to criminally investigate or prosecute any alcohol or drug abuse patient.[facility] HospitalIn the event this information is protected by the Federal Confidentiality of Alcohol and Drug Abuse Patient Records regulations: The Federal rules restrict any use of the information to criminally investigate or prosecute any alcohol or drug abuse patient.[facility] HospitalIn the event this information is protected by the Federal Confidentiality of Alcohol and Drug Abuse Patient Records regulations: The Federal rules restrict any use of the information to criminally investigate or prosecute any alcohol or drug abuse patient.[facility] HospitalIn the event this information is protected by the Federal Confidentiality of Alcohol and Drug Abuse Patient Records regulations: The Federal rules restrict any use of the information to criminally investigate or prosecute any alcohol or drug abuse patient.[facility] HospitalIn the event this information is protected by the Federal Confidentiality of Alcohol and Drug Abuse Patient Records regulations: The Federal rules restrict any use of the information to criminally investigate or prosecute any alcohol or drug abuse patient.[facility] HospitalIn the event this information is protected by the Federal Confidentiality of Alcohol and Drug Abuse Patient Records regulations: The Federal rules restrict any use of the information to criminally investigate or prosecute any alcohol or drug abuse patient.[facility] HospitalIn the event this information is protected by the Federal Confidentiality of Alcohol and Drug Abuse Patient Records regulations: The Federal rules restrict any use of the information to criminally investigate or prosecute any alcohol or drug abuse patient.[facility] HospitalIn the event this information is protected by the Federal Confidentiality of Alcohol and Drug Abuse Patient Records regulations: The Federal rules restrict any use of the information to criminally investigate or prosecute any alcohol or drug abuse patient.[facility] HospitalIn the event this information is protected by the Federal Confidentiality of Alcohol and Drug Abuse Patient Records regulations: The Federal rules restrict any use of the information to criminally investigate or prosecute any alcohol or drug abuse patient.[facility] HospitalIn the event this information is protected by the Federal Confidentiality of Alcohol and Drug Abuse Patient Records regulations: The Federal rules restrict any use of the information to criminally investigate or prosecute any alcohol or drug abuse patient.[facility] HospitalIn the event this information is protected by the Federal Confidentiality of Alcohol and Drug Abuse Patient Records regulations: The Federal rules restrict any use of the information to criminally investigate or prosecute any alcohol or drug abuse patient.[facility] HospitalIn the event this information is protected by the Federal Confidentiality of Alcohol and Drug Abuse Patient Records regulations: The Federal rules restrict any use of the information to criminally investigate or prosecute any alcohol or drug abuse patient.[facility] HospitalIn the event this information is protected by the Federal Confidentiality of Alcohol and Drug Abuse Patient Records regulations: The Federal rules restrict any use of the information to criminally investigate or prosecute any alcohol or drug abuse patient.[facility] HospitalIn the event this information is protected by the Federal Confidentiality of Alcohol and Drug Abuse Patient Records regulations: The Federal rules restrict any use of the information to criminally investigate or prosecute any alcohol or drug abuse patient.[facility] HospitalIn the event this information is protected by the [facility] Confidentiality of Alcohol and Drug Abuse Patient Records regulations: The Federal rules restrict any use of the information to criminally investigate or prosecute any alcohol or drug abuse patient.[facility] HospitalIn the event this information is protected by the Federal Confidentiality of Alcohol and Drug Abuse Patient Records regulations: The Federal rules restrict any use of the information to criminally investigate or prosecute any alcohol or drug abuse patient.[facility] Care Teams (unrecognized sec tion and content) Medical Records Assistant Relationship Specialty Start Date End Date Tien Serrano MD [address] [place], [place] [address] PCP - General Family Practice 03/14/21 13, Pharmacist [phone] [place] [address] Pharmacist Pharmacy 12/29/19 Medical Records Assistant Relationship Specialty Start Date End Date Tien Serrano MD [address] [place], [place] [address] PCP - General Family Practice 03/14/21 13, Pharmacist [phone] [place] [address] Pharmacist Pharmacy 12/29/19 Medical Records Assistant Relationship Specialty Start Date End Date Tien Serrano MD [address] [facility] [place] [address] PCP - General Family Practice 03/14/21 13, Pharmacist [phone] [place] [address] Pharmacist Pharmacy 12/29/19 Medical Records Assistant Relationship Specialty Start Date End Date Tien Serrano MD [address] [facility] [place] [address] PCP - General Family Practice 03/14/21 13, Pharmacist [phone] [place] [address] Pharmacist Pharmacy 12/29/19 Medical Records Assistant Relationship Specialty Start Date End Date Tien Serrano MD [address] [place] [address] PCP - General Family Practice 03/14/21 13, Pharmacist [phone] [place] [address] Pharmacist Pharmacy 12/29/19 Medical Records Assistant Relationship Specialty Start Date End Date Tien Serrano MD [address] [place] [address] PCP - General Family Practice 03/14/21, Pharmacist [address] [place] [address] Pharmacist Pharmacy 12/29/19 Medical Records Assistant Relationship Specialty Start Date End Date Tien Serrano MD [address] [place] [address] PCP - General Family Practice 03/14/21 13, Pharmacist [address] [place] [address] Pharmacist Pharmacy 12/29/19 Medical Records Assistant Relationship Specialty Start Date End Date Tien Serrano MD [address] [place] [address] PCP - General Family Practice 03/14/21 13, Pharmacist [phone] [place] [address] Pharmacist Pharmacy 12/29/19 Medical Records Assistant Relationship Specialty Start Date End Date Tien Serrano MD [address] [facility] [address] PCP - General Family Practice 03/14/21 13, Pharmacist [phone] [place] [address] Pharmacist Pharmacy 12/29/19 Medical Records Assistant Relationship Specialty Start Date End Date Tien Serrano MD [address] [facility] [address] PCP - General Family Practice 03/14/21, Pharmacist [phone] [place] [address] Pharmacist Pharmacy 12/29/19 Medical Records Assistant Relationship Specialty Start Date End Date Tien Serrano MD [address] [facility] [address] PCP - General Family Practice 03/14/21, Pharmacist [phone] [place] [address] Pharmacist Pharmacy 12/29/19 Medical Records Assistant Relationship Specialty Start Date End Date Tien Serrano MD [address] [facility] [place] [address] PCP - General Family Practice 03/14/21, Pharmacist [phone] [place] [address] Pharmacist Pharmacy 12/29/19 Medical Records Assistant Relationship Specialty Start Date End Date Tien Serrano MD [address] [facility] [address] PCP - General Family Medicine 03/14/21 13, Pharmacist [phone] [place] [address] Pharmacist Pharmacy 12/29/19 Medical Records Assistant Relationship Specialty Start Date End Date Tien Serrano MD [address] [facility] [address] PCP - General Family Medicine 03/14/21, Pharmacist [phone] [place] [address] Pharmacist Pharmacy 12/29/19 Medical Records Assistant Relationship Specialty Start Date End Date Tien Serrano MD [address] [place] [address] PCP - General Family Medicine 03/14/21, Pharmacist [phone] [place] [address] Pharmacist Pharmacy 12/29/19 Medical Records Assistant Relationship Specialty Start Date End Date Tien Serrano MD [address] [place] [address] PCP - General Family Medicine 03/14/21, Pharmacist [phone] [place] [address] Pharmacist Pharmacy 12/29/19 Medical Records Assistant Relationship Specialty Start Date End Date Tien Serrano MD [address] [place] [address] PCP - General Family Medicine 03/14/21, Pharmacist [phone] [place] [address] Pharmacist Pharmacy 12/29/19 Medical Records Assistant Relationship Specialty Start Date End Date Tien Serrano MD [address] [place] [address] PCP - General Family Medicine 03/14/21, Pharmacist [address] [place] [address] Pharmacist Pharmacy 12/29/19 Medical Records Assistant Relationship Specialty Start Date End Date Tien Serrano MD [address] [place] [address] PCP - General Family Medicine 03/14/21 13, Pharmacist [address] [place] [address] Pharmacist Pharmacy 12/29/19 Medical Records Assistant Relationship Specialty Start Date End Date Tien Serrano MD [address] [facility] [address] PCP - General Family Medicine 03/14/21 13, Pharmacist [address] [place] [address] Pharmacist Pharmacy 12/29/19 Medical Records Assistant Relationship Specialty Start Date End Date Tien Serrano MD [address] [facility] [address] PCP - General Family Medicine 03/14/21 13, Pharmacist [phone] [place] [address] Pharmacist Pharmacy 12/29/19 Medical Records Assistant Relationship Specialty Start Date End Date Tien Serrano MD [address] [place] [address] PCP - General Family Medicine 03/14/21 13, Pharmacist [phone] [facility] [address] Pharmacist Pharmacy 12/29/19 Medical Records Assistant Relationship Specialty Start Date End Date Tien Serrano MD [address] [place] [address] PCP - General Family Medicine 03/14/21 13, Pharmacist [phone] [place] [address] Pharmacist Pharmacy 12/29/19 Medical Records Assistant Relationship Specialty Start Date End Date Tien Serrano MD [address] [facility] [place] [address] PCP - General Family Medicine 03/14/21 13, Pharmacist [address] [facility] [address] Pharmacist Pharmacy 12/29/19 Medical Records Assistant Relationship Specialty Start Date End Date Tien Serrano MD [address] [place] [address] PCP - General Family Medicine 03/14/21 13, Pharmacist [address] [place] [address] Pharmacist Pharmacy 12/29/19 Medical Records Assistant Relationship Specialty Start Date End Date Tien Serrano MD [address] [place] [address] PCP - General Family Medicine 03/14/21 13, Pharmacist [address] [place] [address] Pharmacist Pharmacy 12/29/19 Medical Records Assistant Relationship Specialty Start Date End Date Tien Serrano MD [address] [place] [address] PCP - General Family Medicine 03/14/21, Pharmacist [phone] [place] [address] Pharmacist Pharmacy 12/29/19 Medical Records Assistant Relationship Specialty Start Date End Date Tien Serrano MD [address] [place] [address] PCP - General Family Medicine 03/14/21, Pharmacist [address] [place] [address] Pharmacist Pharmacy 12/29/19 Medical Records Assistant Relationship Specialty Start Date End Date Tien Serrano MD [address] [place] [address] PCP - General Family Medicine 03/14/21 13, Pharmacist [phone] [place] [address] Pharmacist Pharmacy 12/29/19 Medical Records Assistant Relationship Specialty Start Date End Date Tien Serrano MD [address] [place] [address] PCP - General Family Medicine 03/14/21 13, Pharmacist [phone] [facility] [address] Pharmacist Pharmacy 12/29/19 Medical Records Assistant Relationship Specialty Start Date End Date Tien Serrano MD [address] [facility] [address] PCP - General Family Medicine 03/14/21 13, Pharmacist [address] [place] [address] Pharmacist Pharmacy 12/29/19 Medical Records Assistant Relationship Specialty Start Date End Date Tien Serrano MD [address] [place] [address] PCP - General Family Medicine 03/14/21, Pharmacist [address] [place] [address] Pharmacist Pharmacy 12/29/19 Medical Records Assistant Relationship Specialty Start Date End Date Tien Serrano MD [address] [place] [address] PCP - General Family Medicine 03/14/21, Pharmacist [phone] [place] [address] Pharmacist Pharmacy 12/29/19 Medical Records Assistant Relationship Specialty Start Date End Date Tien Serrano MD [address] [place] [address] PCP - General Family Medicine 03/14/21 13, Pharmacist [phone] [place] [address] Pharmacist Pharmacy 12/29/19 Medical Records Assistant Relationship Specialty Start Date End Date Tien Serrano MD [address] [facility] Mail Code [address] [place] [address] PCP - General Family Medicine 10/17/21 Medical Records Assistant Relationship Specialty Start Date End Date Tien Serrano MD [address] [facility] [address] PCP - General Family Medicine 03/14/21, Pharmacist [address] [facility] [address] Pharmacist Pharmacy 12/29/19 Medical Records Assistant Relationship Specialty Start Date End Date Tien Serrano MD [address] [place] [address] PCP - General Family Medicine 03/14/21, Pharmacist [address] [place] [address] Pharmacist Pharmacy 12/29/19 Medical Records Assistant Relationship Specialty Start Date End Date Tien Serrano MD [address] [facility] [address] PCP - General Family Medicine 03/14/21, Pharmacist [address] [place] [address] Pharmacist Pharmacy 12/29/19 Medical Records Assistant Relationship Specialty Start Date End Date Tien Serrano MD [address] [place] [address] PCP - General Family Medicine 03/14/21, Pharmacist [phone] [place] [address] Pharmacist Pharmacy 12/29/19 Medical Records Assistant Relationship Specialty Start Date End Date Tien Serrano MD [address] [place] [address] PCP - General Family Medicine 03/14/21 13, Pharmacist [address] [place] [address] Pharmacist Pharmacy 12/29/19 Medical Records Assistant Relationship Specialty Start Date End Date Tien Serrano MD [address] [facility] Mail Code [address] [place] [address] PCP - General Family Medicine 10/17/21 Medical Records Assistant Relationship Specialty Start Date End Date Tien Serrano MD [address] [place] [address] PCP - General Family Medicine 03/14/21 13, Pharmacist [address] [place] [address] Pharmacist Pharmacy 12/29/19 Medical Records Assistant Relationship Specialty Start Date End Date Tien Serrano MD [address] [place] [address] PCP - General Family Medicine 03/14/21 13, Pharmacist [address] [place] [address] Pharmacist Pharmacy 12/29/19 Medical Records Assistant Relationship Specialty Start Date End Date Tien Serrano MD [address] [place] [address] PCP - General Family Medicine 03/14/21 13, Pharmacist [address] [place] [address] Pharmacist Pharmacy 12/29/19 Medical Records Assistant Relationship Specialty Start Date End Date Tien Serrano MD [address] [place] [address] PCP - General Family Medicine 03/14/21 13, Pharmacist [address] [place] [address] Pharmacist Pharmacy 12/29/19 Medical Records Assistant Relationship Specialty Start Date End Date Tien Serrano MD [address] [place] [address] PCP - General Family Medicine 03/14/21 13, Pharmacist [address] [place] [address] Pharmacist Pharmacy 12/29/19 Medical Records Assistant Relationship Specialty Start Date End Date Tien Serrano MD [address] [place] [address] PCP - General Family Medicine 03/14/21 13, Pharmacist [address] [place] [address] Pharmacist Pharmacy 12/29/19 Medical Records Assistant Relationship Specialty Start Date End Date Tien Serrano MD [address] [place] [address] PCP - General Family Medicine 03/14/21 13, Pharmacist [address] [place] [address] Pharmacist Pharmacy 12/29/19 Medical Records Assistant Relationship Specialty Start Date End Date Tien Serrano MD [address] [place] [address] PCP - General Family Medicine 03/14/21 13, Pharmacist [address]752 [place] [address] Pharmacist Pharmacy 12/29/19 Medical Records Assistant Relationship Specialty Start Date End Date Tien Serrano MD [address] [place] [address] PCP - General Family Medicine 03/14/21 13, Pharmacist [address] [place] [address] Pharmacist Pharmacy 12/29/19 Medical Records Assistant Relationship Specialty Start Date End Date Tien Serrano MD [address] [place] [address] PCP - General Family Medicine 03/14/21 13, Pharmacist [address]134 [place] [address] Pharmacist Pharmacy 12/29/19 Medical Records Assistant Relationship Specialty Start Date End Date Tien Serrano MD [address] [place] [address] PCP - General Family Medicine 03/14/21 13, Pharmacist [address] [place] [address] Pharmacist Pharmacy 12/29/19 Medical Records Assistant Relationship Specialty Start Date End Date Tien Serrano MD [address] [place] [address] PCP - General Family Medicine 03/14/21, Pharmacist [address] [place] [address] Pharmacist Pharmacy 12/29/19 Medical Records Assistant Relationship Specialty Start Date End Date Tien Serrano MD [address] [place] [address] PCP - General Family Medicine 03/14/21 13, Pharmacist [address] [place] [address] Pharmacist Pharmacy 12/29/19 Medical Records Assistant Relationship Specialty Start Date End Date Tien Serrano MD [address] [place] [address] PCP - General Family Medicine 03/14/21, Pharmacist [address] [place] [address] Pharmacist Pharmacy 12/29/19 Medical Records Assistant Relationship Specialty Start Date End Date Tien Serrano MD [address] [place] [address] PCP - General Family Medicine 03/14/21 13, Pharmacist [address] [place] [address] Pharmacist Pharmacy 12/29/19 Katy Galdamez APRN.FOLDER OPERATOR [address] [place] [address] [employer] [facility] 05/16/24 Alejandrina Quigley APRN.FOLDER OPERATOR [address] [facility] [place] [address] [employer] [facility] 05/16/24 Medical Records Assistant Relationship Specialty Start Date End Date Tien Serrano MD [address] [place] [address] PCP - General Family Medicine 03/14/21 13, Pharmacist [phone] [place] [address] Pharmacist Pharmacy 12/29/19 Katy Galdamez APRN.FOLDER OPERATOR [address] [place] [address] [facility] Alejandrina Quigley APRN.FOLDER OPERATOR [address] [place] [address] [facility] 05/16/24 Medical Records Assistant Relationship Specialty Start Date End Date Tien Serrano MD [address] [place] [address] PCP - General Family Medicine 03/14/21 13, Pharmacist [phone] [place] [address] Pharmacist Pharmacy 12/29/19 Katy Galdamez APRN.FOLDER OPERATOR [address] [place] [address] Extractor Load[employer] Un[employer] [facility] 05/16/24 Alejandrina Quigley APRN.FOLDER OPERATOR [address] [place] [address] [employer] [facility] 05/16/24 Medical Records Assistant Relationship Specialty Start Date End Date Tien Serrano MD [address] [facility] [address] PCP - General Family Medicine 03/14/21 13, Pharmacist [phone] [facility] [address] Pharmacist Pharmacy 12/29/19 Katy Galdamez DEHYDROGENATION OPERATOR HEAD.FOLDER OPERATOR [address] [place] [address] [employer] [facility] 05/16/24 Alejandrina Quigley DEHYDROGENATION OPERATOR HEAD.FOLDER OPERATOR [address] [facility] [address] [employer] [facility] 05/16/24 Medical Records Assistant Relationship Specialty Start Date End Date Tien Serrano MD [address] [facility] [place] [address] PCP - General Family Medicine 03/14/21 13, Pharmacist [phone] [facility] [address] Pharmacist Pharmacy 12/29/19 Katy Galdamez DEHYDROGENATION OPERATOR HEAD.FOLDER OPERATOR [address] [facility] [place] [address] [employer] [facility] 05/16/24 Alejandrina Quigley DEHYDROGENATION OPERATOR HEAD.FOLDER OPERATOR [address] [facility] [address] [employer] [facility] 05/16/24 Medical Records Assistant Relationship Specialty Start Date End Date Tien Serrano MD [address] [facility] [address] PCP - General Family Medicine 03/14/21 13, Pharmacist [phone] [place] [address] Pharmacist Pharmacy 12/29/19 Katy Galdamez APRN.FOLDER OPERATOR [address] [place] [address] [employer] [facility] 05/16/24 Alejandrina Quigley DEHYDROGENATION OPERATOR HEAD.FOLDER OPERATOR [address] [facility] [address] [employer] [facility] 05/16/24 Medical Records Assistant Relationship Specialty Start Date End Date Tien Serrano MD [address] [place] [address] PCP - General Family Medicine 03/14/21 13, Pharmacist [phone] [place] [address] Pharmacist Pharmacy 12/29/19 Katy Galdamez DEHYDROGENATION OPERATOR HEAD.FOLDER OPERATOR [address] [place] [address] [facility] 05/16/24 Alejandrina Quigley DEHYDROGENATION OPERATOR HEAD.FOLDER OPERATOR [address] [place] [address] [facility] 05/16/[facility] Medical Records Assistant Relationship Specialty Start Date End Date Tien Serrano MD [address] [facility] [place] [address] PCP - General Family Medicine 03/14/21 13, Pharmacist [phone] [place] [address] Pharmacist Pharmacy 12/29/19 Katy Galdamez APRN.FOLDER OPERATOR [address] [place] [address] [employer] [facility] 05/16/24 Alejandrina Quigley APRN.FOLDER OPERATOR [address] [facility] [address] [employer] [facility] 05/16/24 Medical Records Assistant Relationship Specialty Start Date End Date Tien Serrano MD [address] [facility] [address] PCP - General Family Medicine 03/14/21 13, Pharmacist [phone] [place] [address] Pharmacist Pharmacy 12/29/19 Katy Galdamez APRN.FOLDER OPERATOR [address] [place] [address] [employer] [facility] 05/16/24 Alejandrina Quigley DEHYDROGENATION OPERATOR HEAD.FOLDER OPERATOR [address] [facility] [address] [facility] 05/16/24 Medical Records Assistant Relationship Specialty Start Date End Date Tien Serrano MD [address] [facility] [address] PCP - General Family Medicine 03/14/21 13, Pharmacist [phone] [place] [address] Pharmacist Pharmacy 12/29/19 Katy Galdamez DEHYDROGENATION OPERATOR HEAD.FOLDER OPERATOR [address] [place] [address] [employer] [facility] 05/16/24 Alejandrina Quigley APRN.FOLDER OPERATOR [address] [facility] [address] [employer] [facility] 05/16/24 Medical Records Assistant Relationship Specialty Start Date End Date Tien Serrano MD [address] [place] [address] PCP - General Family Medicine 03/14/21 13, Pharmacist [phone] [place] [address] Pharmacist Pharmacy 12/29/19 Katy Galdamez APRN.FOLDER OPERATOR [address] [place] [address] [employer] [facility] 05/16/24 Alejandrina Quigley APRN.FOLDER OPERATOR [address] [place] [address] [employer] [facility] 05/16/24 Medical Records Assistant Relationship Specialty Start Date End Date Tien Serrano MD PCP - General Family Medicine 10/17/21 Medical Records Assistant Relationship Specialty Start Date End Date Tien Serrano MD [address] [place] [address] PCP - General Family Medicine 03/14/21 13, Pharmacist [phone] [place] [address] Pharmacist Pharmacy 12/29/19 Katy Galdamez APRN.FOLDER OPERATOR [address] [place] [address] [employer] [facility] 05/16/24 Alejandrina Quigley APRN.FOLDER OPERATOR [address] [place] [address] Ext[employer] [facility] 05/16/24 Medical Records Assistant Relationship Specialty Start Date End Date Tien Serrano MD [address] [place] [address] PCP - General Family Medicine 03/14/21 13, Pharmacist [phone] [place] [address] Pharmacist Pharmacy 12/29/19 Katy Galdamez, DEHYDROGENATION OPERATOR HEAD.FOLDER OPERATOR [address] [place] [address] Ext[employer]loader [facility] 05/16/24 Alejandrina Quigley DEHYDROGENATION OPERATOR HEAD.FOLDER OPERATOR [address] [place] [address] Ext[employer]loader [facility] 05/16/24 Medical Records Assistant Relationship Specialty Start Date End Date Tien Serrano MD [address] [place] [address] PCP - General Family Medicine 03/14/21 13, Pharmacist [phone] [place] [address] Pharmacist Pharmacy 12/29/19 Katy Galdamez, DEHYDROGENATION OPERATOR HEAD.FOLDER OPERATOR [address] [place] [address] Ext[employer]loader [facility] 05/16/24 Alejandrina Quigley DEHYDROGENATION OPERATOR HEAD.FOLDER OPERATOR [address] [place] [address] Extractor Load[employer]loader [facility] 05/16/24 Medical Records Assistant Relationship Specialty Start Date End Date Tien Serrano MD [address] [place] [address] PCP - General Family Medicine 03/14/21 13, Pharmacist [phone] [place] [address] Pharmacist Pharmacy 12/29/19 Katy Galdamez APRN.FOLDER OPERATOR [address] [place] [address] [facility] 05/16/24 Alejandrina Quigley APRN.FOLDER OPERATOR [address] [facility], [place] [address] [phone] [facility] 05/16/24 Medical Records Assistant Relationship Specialty Start Date End Date Tien Serrano MD [address] [place], [place] [address] PCP - General Family Medicine 03/14/21 13, Pharmacist [phone] [place] [address] Pharmacist Pharmacy 12/29/19 Katy Galdamez APRN.FOLDER OPERATOR [address] [place] [address] [facility] 05/16/24 Alejandrina Quigley APRN.FOLDER OPERATOR [address] [facility] [address] [facility] 05/16/24 Team Status: Active Member Role/Relationship Status Dates Dr. Geoffrey Garcia III, MD Family Provider Active Team Status: Inactive Member Role/Relationship Status Dates Iglesia DOE, PA Attending Provider Active Start: January 16, 2025 End: January 16, 2025 Medical Records Assistant Relationship Specialty Start Date End Date Tien Serrano MD [address] [facility], [place] [address] PCP - General Family Medicine 03/14/21 13, Pharmacist [phone] [place] [address] Pharmacist Pharmacy 12/29/19 Katy Galdamez APRN.FOLDER OPERATOR [address] [place] [address] [facility] 05/16/24 Alejandrina Quigley APRN.FOLDER OPERATOR [address] [place] [address] [facility] 05/16/24 (unrecognized sect ion and content) No Status Records FoundNo Status Records FoundNo Status Records Found INFORMATION SOURCE (unrecogn ized section and content) DATE CREATED AUTHOR 01/07/2025 [facility] DATE CREATED AUTHOR AUTHOR'S ORGANIZ ATION 01/17/2025 [facility] DATE CREATED AUTHOR AUTHOR'S ORGANIZ ATION 02/21/2025 [facility] Goals (unrecognized section and content) Goals may [...] BE BASED ON THE PRIMARY CLINICAL RECORDS. [facility] [employer] [facility]. provides no warranty or guarantee of the accuracy or completeness of information in this document.
[2025-03-03 01:21] LABS: Troponin T High Sensitivity 37 ng/L (<=22)
[2025-03-03 01:22] LABS: AST(SGOT) 23 U/L (<=37); Alanine Aminotransfer ALT/SGPT 23 U/L (<=46); Albumin, Serum 3.9 g/dL (3.4-4.8); Alkaline Phosphatase 76 U/L (40-129); Anion Gap 13 (5-15); BUN 38 mg/dL (4-19); BUN/Creat Ratio 25.2 RATIO (10-20); Calcium,Total 8.7 mg/dL (7.6-11.0); Carbon Dioxide 19.0 mmol/L (21.0-32.0); Chloride 105 mmol/L (98-108); Estimated Creatinine Clearance 42.32 ml/min (50-250); Globulin 2.5 g/dL (2.2-4.2); Glucose 129 mg/dL (70-99); Magnesium 2.1 mg/dL (1.5-2.2); Potassium 5.6 mmol/L (3.3-5.1)
[2025-03-03] MEDS: HYDROmorphone 0.5 MG/0.5 ML SYRINGE IV (01:58)
[2025-03-03] MEDS: 0.9% Saline Lock 10 ML Syringe IV (01:59)
[2025-03-03 03:54] LABS: Troponin T High Sens 2 HR 43 ng/L (<=22)
[2025-03-03 05:21] LABS: Prothrombin Time (Protime)PT. 27.4 SECONDS (11.7-14.9)
[2025-03-03] MEDS: Phytonadione (Vit K) 10 MG/ML Ampul SC (05:33)
[2025-03-03 06:13] LABS: Troponin T High Sens 4 HR 50 ng/L (<=22)
[2025-03-03 06:47] LABS: Cholesterol 94 mg/dL (<=200); Low Density Lipoprotein Calc. 45 mg/dL; Triglycerides 65 mg/dL; Very Low Density Lipoprotein 13 mg/dL (5-40); cholesterol:hdl ratio screen 2.58
[2025-03-03 07:40] LABS: Mucous, Urine 0 SEEN /hpf (<or=2+); Squamous Epithelial Cells - UA 0 SEEN /hpf (0-5)
[2025-03-03 07:46] LABS: Color, Urine Yellow (Yellow); Glucose, Dipstick Normal (Normal); Ketone-Dipstick Negative (Negative); Leukocyte Esterase-Dipstick Negative /ul (Negative); Nitrite-Dipstick Negative (Negative); Occult Blood-Urine 250 /ul (Negative); Protein-Dipstick 30 mg/dl (Negative); Specific Gravity, Urine 1.015 (1.002-1.030); Urine Bilirubin Dipstick Negative (Negative)
[2025-03-03 07:58] LABS: Red Blood Cells-Urine 10-25 SEEN /hpf (0-5)
--- NOTE | 2025-03-03 08:32 | PCM.HOSP.N ---
Hospitalist Note I was given signout by the nighttime hospitalist that the patient has a right pelvic wall and retroperitoneal hematoma about 12 cm, INR 2.5 on warfarin for chronic A-fib and low blood pressure. I immediately came to see the patient. On further history taking, Patient said he slipped on the porch while working because the floor was wet on the right side of lower extremity. He he hit his head on sidewalk. He denies LOC. Patient further said he is well blood pressure is around 110-120 systolic and heart rate is around 60s. Patient came to hospital with right scalp laceration severe pain on the right hip area, small laceration to left hand and right elbow. The pain at the time of fall was 10 out of 10 and pain is better after he got morphine and Dilaudid. CT right lower extremity without contrast first and then with contrast was done which showed 11.7 x 7.3 cm without associated active bleeding during the time of the exam. CT injury reviewed and shows periacetabular/deep pelvic acute hematoma without residual active bleeding at time of exam. It shows acute oblique mildly displaced fracture of right iliac bone reaching the right acetabular roof, acute nondisplaced fracture of right inferior pubic ramus, acute oblique mildly displaced fracture of lateral aspect of right superior pubic ramus. Patient has been given vitamin K 10 mg subcutaneously. After discussion with the surgeon Dr. Vasquez we agreed to transfer out the patient as blood pressure lower than normal. Continue IV fluid at 100 mL/h. Patient is maintaining permissive hypotension as defense for hemostasis therefore avoid bolus until acute hypotension. 2 units of FFP ordered. H&H Q6 hourly. [facility] and discussed with transfer home visit field care manager. Waiting for a callback. Repeat H&H came back 11.4/34.7. Patient also has CKD with estimated creatinine clearance 42 mL/min. 1 prior creatinine was 1.98 in August 2020. Therefore we will avoid further contrast. Getting IV fluid normal saline to prevent VERNA. Clinical Impression(s) from Imaging Studies- Hip/Pelvis X-Ray 03/02/25 16:16 IMPRESSION: No acute osseous abnormalities. Bilateral hip osteoarthrosis. Reading Location: [id number] Brain CT 03/02/25 16:40 IMPRESSION: No acute intracranial abnormality. Reading Location: [facility] Lower Extremity CT 03/02/25 18:18 IMPRESSION: Minimally displaced acute comminuted fractures of the right acetabulum, mainly involving the anterior column, which propagates along the medial aspect of right iliac wing, and nondisplaced fractures involving the superior and inferior pubic rami. No proximal right femur fracture or dislocation. Moderate right pelvic sidewall hematoma medial to the right acetabular wall, tracking along the right aspect of the pelvis and visualized lower retroperitoneum, with intramuscular component in the right obturator internus muscle belly. Suggest contrast-enhanced CT of the pelvis with early arterial and delayed venous phase images to assess for any potential active bleeding, if clinically warranted. Findings communicated with provider Edu Dean 03/02/2025 at 6:50 p.m. [employer]I [employer]. Reading Location: [facility] Abdomen/Pelvis CT 03/03/25 01:05 IMPRESSION: Acute oblique mildly displaced fracture of the right iliac bone reaching the right acetabular roof. Acute nondisplaced fracture of the right inferior pubic ramus. Acute oblique mildly displaced fracture of the lateral aspect of the right superior pubic ramus reaching the acetabulum. Underlying deep pelvic/periacetabular acute hematoma measuring 11.7 x 7.3 cm without associated active bleeding during the time of the exam. Minimal bilateral pleural effusions. Passive atelectatic airspace disease of the lower lobes. Mild cardiomegaly. 3 mm left renal nonobstructing stone. Scattered left renal simple cysts with the largest measuring 1.6 cm. Mild prostatomegaly. Scattered prostatic calcifications. Fat containing umbilical hernia without incarceration. Reading Location[facility]
[2025-03-03 08:37] LABS: Hematocrit 34.7 % (40-54); Hemoglobin 11.4 g/dL (13.0-16.5)
--- NOTE | 2025-03-03 08:46 | EX.PCM.CON.S ---
Assessment & Plan Assessment/Plan (1) Pelvic hematoma in male: (2) Anticoagulant long-term use: (3) Acetabulum fracture: (4) Fall at home: QUALIFIERS: Encounter type: initial encounter Qualified Code(s): W19.XXXA - Unspecified fall, initial encounter; Y92.009 - Unspecified place in unspecified non-institutional (private) residence as the place of occurrence of the external cause PLAN: Plan Recommend transfer to tertiary care facility with IR capabilities. Discussed with Dr. Sanz as well as patient. Patient did get vitamin K 10 mg, Dr. Sanz just ordered FFP. As INR is still 2.5. Reviewed imaging with patient as well. Marisol Vasquez M.D. Pager: [phone] [facility] [address] [place] [address], Outpatient Pavilion, [address] [place] [address] Office: [phone] HPI Consult Data Date of Consult: 03/03/25 HPI Narrative HPI Narrative: CLEVELAND MORLEY, is a 84 M who presents to the ER after a fall on his porch as he was cleaning his siding and it was slippery. Patient did fall down 2 steps onto the concrete as well. Patient had CT right lower extremity and CT abdomen pelvis showed pelvic hematoma no obvious evidence for active extravasation per report patient also had an acetabular fracture also involved iliac on the right. Patient was seen by Ortho. Patient also is on Coumadin for A-fib INR was 2.1 on admit got vitamin K 10 mg subcu current INR is 2.5. Patient's blood pressures were systolically 100-110 currently this morning they are in the 90s. Patient's hemoglobin on admit was 12.2 currently 11.4. [facility] Medical History Acetabulum fracture Nausea Abdominal pain History of basal cell carcinoma CKD (chronic kidney disease) Diverticulosis Hyperlipidemia History of colonic polyps Diarrhea Anxiety Hypertension History of DVT (deep vein thrombosis) Atrial fibrillation Home Medications ?Medication ?Instructions ?Recorded ?Last Taken ?Type atorvastatin 20 mg tablet (Lipitor) 20 mg PO DAILY cholesterol 02/19/18 03/02/25 History warfarin 5 mg tablet (Coumadin) 5 mg PO MOTUWETHFRSA blood thinner 02/19/18 03/07/18 History warfarin 6 mg tablet 5 mg PO SUTUWETHSA blood thinner 03/08/18 03/02/25 History lisinopril 10 mg tablet 10 mg PO DAILY hypertension #30 08/24/20 03/02/25 Rx tabs albuterol sulfate 90 mcg/actuation 2 puff inhalation DAILY PRN 03/02/25 Unknown History aerosol inhaler shortness of breath or wheezing doxycycline hyclate 100 mg tablet 100 mg PO BID antibiotic 03/02/25 Unknown History sertraline 100 mg tablet 100 mg PO DAILY depression 03/02/25 03/02/25 History umeclidinium 62.5 mcg-vilanterol inhalation DAILY respiratory 03/02/25 03/02/25 History 25 mcg/actuation powdr for inhalation (Anoro Ellipta) Allergy/AdvReac Type Severity Reaction Status Date / Time No Known Allergies Allergy Verified 03/02/25 15:57 Family History Mother CAD (coronary artery disease) Father CAD (coronary artery disease) CHF (congestive heart failure) Brother Cancer Stomach Myocardial infarction Sister Asthma Surgical History S/P Mohs surgery for basal cell carcinoma History of colonoscopy (~2017) history bilateral cataract surgery History of elbow surgery History of tonsillectomy Social History Smoking Status: Former smoker alcohol intake: current alcohol intake frequency: 0-2 drinks per day Alcohol type: other details: adia's substance use type: does not use Physical Exam Const alert, oriented x3 and no apparent distress HEENT normocephalic and head/scalp atraumatic Resp normal respiratory effort Cardio regular rate GI soft to palpation and non-tender; Negative for non-distended Palpation: Negative for guarding Extremity normal to inspection Skin no rashes or lesions noted Neuro CN's II-XII intact bilaterally Psych mental status grossly normal Lab / Micro Data 03/03/25 08:25 03/03/25 00:32 Labs: Laboratory Results - last 24 hr 03/02/25 17:10: PT 24.3 H, INR 2.1 03/03/25 00:32: WBC 10.4, RBC 3.80 L, Hgb 12.2 L, Hct 37.0 L, MCV 97.4 H, MCH 32.1 H, MCHC 33.0, RDW Std Deviation 46.8 H, RDW Coeff of Pierre 13.1, Plt Count 154, MPV 10.6, Immature Gran % (Auto) 0.300, Neut % (Auto) 84.1 H, Lymph % (Auto) 6.5 L, Cook % (Auto) 8.7, Eos % (Auto) 0.1, Baso % (Auto) 0.3, Absolute Neuts (auto) 8.8 H, Absolute Lymphs (auto) 0.68 L, Nucleated RBC % 0, Sodium 137, Potassium 5.6 H, Chloride 105, Carbon Dioxide 19.0 L, Anion Gap 13, BUN 38 H, Creatinine 1.51 H, Estim Creat Clear Calc 42.32 L, Est GFR (MDRD) Non-Af 46 L, BUN/Creatinine Ratio 25.2 H, Glucose 129 H, Calcium 8.7, Phosphorus 3.8, Magnesium 2.1, Total Bilirubin 0.94, AST 23, ALT 23, Alkaline Phosphatase 76, Troponin T High Sens 37 H, Total Protein 6.5, Albumin 3.9, Globulin 2.5, Albumin/Globulin Ratio 1.5, Blood Type B POSITIVE, Antibody Screen NEGATIVE 03/03/25 02:39: Troponin T Hi Sens 2 Hr 43 H 03/03/25 04:46: PT 27.4 H, INR 2.5, Troponin T Hi Sens 4Hr 50 H, Triglycerides 65, Cholesterol 94, LDL Cholesterol, Calc 45, VLDL Cholesterol 13, HDL Cholesterol 36 L, Cholesterol/HDL Ratio 2.58, TSH 4.240 H 03/03/25 07:17: Urine Color Yellow, Urine Clarity Clear, Urine pH 5.0, Ur Specific Lithia 1.015, Urine Protein 30 H, Urine Glucose (UA) Normal, Urine Ketones Negative, Urine Occult Blood 250 H, Urine Nitrite Negative, Urine Bilirubin Negative, Urine Urobilinogen Normal, Ur Leukocyte Esterase Negative, Urine RBC 10-25 SEEN, Urine WBC 0 SEEN, Ur Squamous Epith Cells 0 SEEN, Urine Bacteria 0 SEEN, Urine Mucus 0 SEEN 03/03/25 08:25: Hgb 11.4 L, Hct 34.7 L Rhythm Strip Rhythm Strip: A-fib (84) Ectopy: None Imaging Radiology Impression Hip/Pelvis X-Ray 03/02/25 16:16 IMPRESSION: No acute osseous abnormalities. Bilateral hip osteoarthrosis. Reading Location: [facility] Brain CT 03/02/25 16:40 IMPRESSION: No acute intracranial abnormality. Reading Location: [facility] Lower Extremity CT 03/02/25 18:18 IMPRESSION: Minimally displaced acute comminuted fractures of the right acetabulum, mainly involving the anterior column, which propagates along the medial aspect of right iliac wing, and nondisplaced fractures involving the superior and inferior pubic rami. No proximal right femur fracture or dislocation. Moderate right pelvic sidewall hematoma medial to the right acetabular wall, tracking along the right aspect of the pelvis and visualized lower retroperitoneum, with intramuscular component in the right obturator internus muscle belly. Suggest contrast-enhanced CT of the pelvis with early arterial and delayed venous phase images to assess for any potential active bleeding, if clinically warranted. Findings communicated with provider Edu Dean 03/02/2025 at 6:50 p.m. MANAGEMENT LEAD. Reading Location: [facility] Abdomen/Pelvis CT 03/03/25 01:05 IMPRESSION: Acute oblique mildly displaced fracture of the right iliac bone reaching the right acetabular roof. Acute nondisplaced fracture of the right inferior pubic ramus. Acute oblique mildly displaced fracture of the lateral aspect of the right superior pubic ramus reaching the acetabulum. Underlying deep pelvic/periacetabular acute hematoma measuring 11.7 x 7.3 cm without associated active bleeding during the time of the exam. Minimal bilateral pleural effusions. Passive atelectatic airspace disease of the lower lobes. Mild cardiomegaly. 3 mm left renal nonobstructing stone. Scattered left renal simple cysts with the largest measuring 1.6 cm. Mild prostatomegaly. Scattered prostatic calcifications. Fat containing umbilical hernia without incarceration. Reading Location[facility]
[2025-03-03] MEDS: 0.9% Normal Saline (250mL Bag) 250 ML 999 ML IV (09:33)
--- NOTE | 2025-03-03 10:04 | PN.HOSP_ITS ---
Reason for Visit Chief Complaint: Fall a Home with Scalp and Hand Lacerations plus Right Hip Pain. Objective Data Objective Data Vital Signs: Vital Signs Temp Pulse Resp BP Pulse Ox O2 Del Method 97.9 F 55 L 16 91/53 L 93 Room Air 03/03/25 08:08 03/03/25 08:08 03/03/25 08:08 03/03/25 08:08 03/03/25 08:08 03/03/25 09:57 Oxygen Delivery Method Room Air Weight: 203 lb 7.787 oz Body Mass Index (BMI) 29.1 Intake & Output: Intake and Output for Last 24 Hours 03/01/25 03/02/25 03/03/25 23:59 23:59 23:59 Intake Total 650 / 650 Output Total 0 / 0 Balance 650 / 650 Lab / Micro Data 03/03/25 08:25 03/03/25 00:32 Labs: Laboratory Results - last 24 hr 03/02/25 17:10: PT 24.3 H, INR 2.1 03/03/25 00:32: WBC 10.4, RBC 3.80 L, Hgb 12.2 L, Hct 37.0 L, MCV 97.4 H, MCH 32.1 H, MCHC 33.0, RDW Std Deviation 46.8 H, RDW Coeff of Pierre 13.1, Plt Count 154, MPV 10.6, Immature Gran % (Auto) 0.300, Neut % (Auto) 84.1 H, Lymph % (Auto) 6.5 L, Mchenry % (Auto) 8.7, Eos % (Auto) 0.1, Baso % (Auto) 0.3, Absolute Neuts (auto) 8.8 H, Absolute Lymphs (auto) 0.68 L, Nucleated RBC % 0, Sodium 137, Potassium 5.6 H, Chloride 105, Carbon Dioxide 19.0 L, Anion Gap 13, BUN 38 H, Creatinine 1.51 H, Estim Creat Clear Calc 42.32 L, Est GFR (MDRD) Non-Af 46 L , BUN/Creatinine Ratio 25.2 H, Glucose 129 H, Calcium 8.7, Phosphorus 3.8, Magnesium 2.1, Total Bilirubin 0.94, AST 23, ALT 23, Alkaline Phosphatase 76, T roponin T High Sens 37 H, Total Protein 6.5, Albumin 3.9, Globulin 2.5, Albumin/Globulin Ratio 1.5, Blood Type B POSITIVE, Antibody Screen NEGATIVE 03/03/25 02:39: Troponin T Hi Sens 2 Hr 43 H 03/03/25 04:46: PT 27.4 H, INR 2.5, Troponin T Hi Sens 4Hr 50 H, Triglycerides 65, Cholesterol 94, LDL Cholesterol, Calc 45, VLDL Cholesterol 13, HDL Cholesterol 36 L, Cholesterol/HDL Ratio 2.58, TSH 4.240 H 03/03/25 07:17: Urine Color Yellow, Urine Clarity Clear, Urine pH 5.0, Ur Specific [place] 1.015, Urine Protein 30 H, Urine Glucose (UA) Normal, Urine Ketones Negative, Urine Occult Blood 250 H, Urine Nitrite Negative, Urine Bilirubin Negative, Urine Urobilinogen Normal, Ur Leukocyte Esterase Negative, Urine RBC 10-25 SEEN, Urine WBC 0 SEEN, Ur Squamous Epith Cells 0 SEEN, Urine Bacteria 0 SEEN, Urine Mucus 0 SEEN 03/03/25 08:25: Hgb 11.4 L, Hct 34.7 L Radiography Diagnostic Testing: Radiology Impression Hip/Pelvis X-Ray 03/02/25 16:16 IMPRESSION: No acute osseous abnormalities. Bilateral hip osteoarthrosis. Reading Location: [facility] Brain CT 03/02/25 16:40 IMPRESSION: No acute intracranial abnormality. Reading Location: [facility] Lower Extremity CT 03/02/25 18:18 IMPRESSION: Minimally displaced acute comminuted fractures of the right acetabulum, mainly involving the anterior column, which propagates along the medial aspect of right iliac wing, and nondisplaced fractures involving the superior and inferior pubic rami. No proximal right femur fracture or dislocation. Moderate right pelvic sidewall hematoma medial to the right acetabular wall, tracking along the right aspect of the pelvis and visualized lower retroperitoneum, with intramuscular component in the right obturator internus muscle belly. Suggest contrast-enhanced CT of the pelvis with early arterial and delayed venous phase images to assess for any potential active bleeding, if clinically warranted. Findings communicated with provider Edu Dean 03/02/2025 at 6:50 p.m. AIRFRAME TECHNICIAN. Reading Location: [id number] Abdomen/Pelvis CT 03/03/25 01:05 IMPRESSION: Acute oblique mildly displaced fracture of the right iliac bone reaching the right acetabular roof. Acute nondisplaced fracture of the right inferior pubic ramus. Acute oblique mildly displaced fracture of the lateral aspect of the right superior pubic ramus reaching the acetabulum. Underlying deep pelvic/periacetabular acute hematoma measuring 11.7 x 7.3 cm without associated active bleeding during the time of the exam. Minimal bilateral pleural effusions. Passive atelectatic airspace disease of the lower lobes. Mild cardiomegaly. 3 mm left renal nonobstructing stone. Scattered left renal simple cysts with the largest measuring 1.6 cm. Mild prostatomegaly. Scattered prostatic calcifications. Fat containing umbilical hernia without incarceration. Reading Location: [place] [id number] Rhythm Strip Rhythm Strip: A-fib (83) Ectopy: None Physical Exam Narrative Seen and examined in the morning. Physical exam General: Alert, Oriented x3, Cooperative HEENT: Staple on the right parietal region. Blood stain with matted hair. Atraumatic, PERRLA, EOMI, Normocephalic. Oral: No Gingival or Mucosal Lesions/ Ulcerations Neck: Supple, No JVD, Negative Carotid Bruits Chest wall/Lungs: Air entry diminished in bilateral lung bases. No crepitation/rhonchi Cardiovascular: Regular rate and rhythm, Normal S1,S2, No M/G/R Abdomen: Bowel Sounds Present, Soft, Non Tender, Non-Distended : No dysuria. No renal angle tenderness. No suprapubic tenderness. Extremities: No edema, Capillary Refill Less than 3 Seconds Skin: No rashes, No breakdown Musculoskeletal: No Tenderness to Palpation of Joints or Extremities Neurological: Cranial nerves II-XII grossly intact, DTR 2+/4. No acute focal neurological deficit. Psych/Mental Status: Normal Affect, Appropriate.
--- NOTE | 2025-03-03 12:29 | NURSING ---
Called report to Jamie at [facility]. No other questions asked.
[2025-03-03 14:41] LABS: Hematocrit 32.1 % (40-54); Hemoglobin 10.6 g/dL (13.0-16.5)
--- NOTE | 2025-03-03 15:56 | DS.PCM_ITS ---
Providers Date of Admission: 03/02/25 Date of Discharge: 03/03/25 Primary Care Physician: Dr. Tien Fernandez MD Consultations 03/03/25 05:23 Consult: General Surgery Routine Consulting Provider: Marisol Vasquez Reason for Consult: ~11.7 cm by ~7.3 cm deep pelvic/periacetabular acute hematoma after fall. 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 of anticoagulants (3) Acetabulum fracture: Status: Acute Code(s): S32.409A - Unspecified fracture of unspecified acetabulum, initial encounter for closed fracture (4) Fall at home: Status: Acute Code(s): W19.XXXA - Unspecified fall, initial encounter; Y92.009 - Unspecified place in unspecified non-institutional (private) residence as the place of occurrence of the external cause Qualifiers: Encounter type: initial encounter Qualified Code(s): W19.XXXA - Unspecified fall, initial encounter; Y92.009 - Unspecified place in unspecified non-institutional (private) residence as the place of occurrence of the external cause Plan The patient is nine 74-year-old gentleman came to ED after he slipped on the porch while cleaning sliding on the wet floor and fell 2 steps on the right side of lower extremity. He also hit his head on sidewalk. He denies LOC. Patient further said he is well blood pressure is around 110-120 systolic and heart rate is around 60s. Patient came to hospital with right scalp laceration severe pain on the right hip area, small laceration to left hand and right elbow. 1. Fall resulting into multiple fracture of right iliac bone, superior inferior rami of pubic bone and roof of acetabulum: Patient was admitted in PCU. Pain is controlled oxycodone and Dilaudid.CT right lower extremity without contrast first and then with contrast was done which showed 11.7 x 7.3 cm without associated active bleeding during the time of the exam. CT injury reviewed and shows periacetabular/deep pelvic acute hematoma without residual active bleeding at time of CT exam. It shows acute oblique mildly displaced fracture of right iliac bone reaching the right acetabular roof, acute nondisplaced fracture of right inferior pubic ramus, acute oblique mildly displaced fracture of lateral aspect of right superior pubic ramus. Patient has been given vitamin K 10 mg subcutaneously. After discussion with the surgeon Dr. Vasquez we agreed to transfer out the patient as blood pressure lower than normal. Continue IV fluid at 100 mL/h. Patient is maintaining permissive hypotension as physiological mechanism for hemostasis therefore avoid bolus until acute hypotension. 2 units of FFP ordered and 1 was given. H&H Q6 hourly. 2. Laceration of scalp right elbow and left hand: Laceration of scalp was stapled by ER physician. No active bleeding. Dressing was done. 3. Chronic A-fib on warfarin: INR was 2.1 in the most recent INR 2.5. Vitamin K Ceftin will be given. 2 units of FFP is ordered and 1 unit given. 3. Mild acute anemia: H&H 12.2 dropped to 10.6 therefore acute anemia due to internal hematoma as mentioned above. Was not in active PRBC transfusion but FFP. Continue monitoring H&H. 4. CKD stage IIIb: Estimated creatinine clearance about 42 mL/min. Creatinine 1.5. One prior creatinine was 1.98 in August 2020. Therefore we will avoid further contrast. Getting IV fluid normal saline to prevent VERNA. 6. Multiple chronic conditions include essential hypertension, dyslipidemia, anxiety and depression and history of basal cell carcinoma status Mohs surgery: On medical treatment Patient is transferred to [facility]. I called [facility] for transfer and discussed with transfer direct care staffer. First I talked to hospitalist Dr. Marquez who recommended that patient should go to trauma unit therefore discussed with trauma surgeon Dr. Medley. He accepted the patient. Patient transferred to [facility] in clinically hemodynamically stable condition. 03/02/25 17:10: PT 24.3 H, INR 2.1 03/03/25 00:32: WBC 10.4, RBC 3.80 L, Hgb 12.2 L, Hct 37.0 L, MCV 97.4 H, MCH 32.1 H, MCHC 33.0, RDW Std Deviation 46.8 H, RDW Coeff of Pierre 13.1, Plt Count 154, MPV 10.6, Immature Gran % (Auto) 0.300, Neut % (Auto) 84.1 H, Lymph % (Auto) 6.5 L, [place] % (Auto) 8.7, Eos % (Auto) 0.1, Baso % (Auto) 0.3, Absolute Neuts (auto) 8.8 H, Absolute Lymphs (auto) 0.68 L, Nucleated RBC % 0, Sodium 137, Potassium 5.6 H, Chloride 105, Carbon Dioxide 19.0 L, Anion Gap 13, BUN 38 H, Creatinine 1.51 H, Estim Creat Clear Calc 42.32 L, Est GFR (MDRD) Non-Af 46 L , BUN/Creatinine Ratio 25.2 H, Glucose 129 H, Calcium 8.7, Phosphorus 3.8, Magnesium 2.1, Total Bilirubin 0.94, AST 23, ALT 23, Alkaline Phosphatase 76, T roponin T High Sens 37 H, Total Protein 6.5, Albumin 3.9, Globulin 2.5, Albumin/Globulin Ratio 1.5, Blood Type B POSITIVE, Antibody Screen NEGATIVE 03/03/25 02:39: Troponin T Hi Sens 2 Hr 43 H 03/03/25 04:46: PT 27.4 H, INR 2.5, Troponin T Hi Sens 4Hr 50 H, Triglycerides 65, Cholesterol 94, LDL Cholesterol, Calc 45, VLDL Cholesterol 13, HDL Cholesterol 36 L, Cholesterol/HDL Ratio 2.58, TSH 4.240 H 03/03/25 07:17: Urine Color Yellow, Urine Clarity Clear, Urine pH 5.0, Ur Specific [place] 1.015, Urine Protein 30 H, Urine Glucose (UA) Normal, Urine Ketones Negative, Urine Occult Blood 250 H, Urine Nitrite Negative, Urine Bilirubin Negative, Urine Urobilinogen Normal, Ur Leukocyte Esterase Negative, Urine RBC 10-25 SEEN, Urine WBC 0 SEEN, Ur Squamous Epith Cells 0 SEEN, Urine Bacteria 0 SEEN, Urine Mucus 0 SEEN 03/03/25 08:25: Hgb 11.4 L, Hct 34.7 L 03/03/25 14:03: Hgb 10.6 L, Hct 32.1 L Medications at Discharge Home Medications atorvastatin 20 mg tablet (Lipitor) 20 mg PO DAILY cholesterol 02/19/18 warfarin 5 mg tablet (Coumadin) 5 mg PO [facility] blood thinner 02/19/18 warfarin 6 mg tablet 5 mg PO SUTUWETHSA blood thinner 03/08/18 lisinopril 10 mg tablet 10 mg PO DAILY hypertension #30 tabs 08/24/20 albuterol sulfate 90 mcg/actuation aerosol inhaler 2 puff inhalation DAILY PRN shortness of breath or wheezing 03/02/25 doxycycline hyclate 100 mg tablet 100 mg PO BID antibiotic 03/02/25 sertraline 100 mg tablet 100 mg PO DAILY depression 03/02/25 umeclidinium 62.5 mcg-vilanterol 25 mcg/actuation powdr for inhalation (Anoro Ellipta) inhalation DAILY respiratory 03/02/25 Hospital Course Summary of Care Provided Hospital Course: Laboratory Results 03/02/25 17:10: PT 24.3 H, INR 2.1 03/03/25 00:32: WBC 10.4, RBC 3.80 L, Hgb 12.2 L, Hct 37.0 L, MCV 97.4 H, MCH 32.1 H, MCHC 33.0, RDW Std Deviation 46.8 H, RDW Coeff of Pierre 13.1, Plt Count 154, MPV 10.6, Immature Gran % (Auto) 0.300, Neut % (Auto) 84.1 H, Lymph % (Auto) 6.5 L, [place] % (Auto) 8.7, Eos % (Auto) 0.1, Baso % (Auto) 0.3, Absolute Neuts (auto) 8.8 H, Absolute Lymphs (auto) 0.68 L, Nucleated RBC % 0, Sodium 137, Potassium 5.6 H, Chloride 105, Carbon Dioxide 19.0 L, Anion Gap 13, BUN 38 H, Creatinine 1.51 H, Estim Creat Clear Calc 42.32 L, Est GFR (MDRD) Non-Af 46 L , BUN/Creatinine Ratio 25.2 H, Glucose 129 H, Calcium 8.7, Phosphorus 3.8, Magnesium 2.1, Total Bilirubin 0.94, AST 23, ALT 23, Alkaline Phosphatase 76, T roponin T High Sens 37 H, Total Protein 6.5, Albumin 3.9, Globulin 2.5, Albumin/Globulin Ratio 1.5, Blood Type B POSITIVE, Antibody Screen NEGATIVE 03/03/25 02:39: Troponin T Hi Sens 2 Hr 43 H 03/03/25 04:46: PT 27.4 H, INR 2.5, Troponin T Hi Sens 4Hr 50 H, Triglycerides 65, Cholesterol 94, LDL Cholesterol, Calc 45, VLDL Cholesterol 13, HDL Cholesterol 36 L, Cholesterol/HDL Ratio 2.58, TSH 4.240 H 03/03/25 07:17: Urine Color Yellow, Urine Clarity Clear, Urine pH 5.0, Ur Specific [place] 1.015, Urine Protein 30 H, Urine Glucose (UA) Normal, Urine Ketones Negative, Urine Occult Blood 250 H, Urine Nitrite Negative, Urine Bilirubin Negative, Urine Urobilinogen Normal, Ur Leukocyte Esterase Negative, Urine RBC 10-25 SEEN, Urine WBC 0 SEEN, Ur Squamous Epith Cells 0 SEEN, Urine Bacteria 0 SEEN, Urine Mucus 0 SEEN 03/03/25 08:25: Hgb 11.4 L, Hct 34.7 L 03/03/25 14:03: Hgb 10.6 L, Hct 32.1 L Physical Exam Narrative Seen and examined in the morning. Physical exam General: Alert, Oriented x3, Cooperative HEENT: Staple on the right parietal region. Blood stain with matted hair. Atraumatic, PERRLA, EOMI, Normocephalic. Oral: No Gingival or Mucosal Lesions/ Ulcerations Neck: Supple, No JVD, Negative Carotid Bruits Chest wall/Lungs: Air entry diminished in bilateral lung bases. No crepitation/rhonchi Cardiovascular: Regular rate and rhythm, Normal S1,S2, No M/G/R Abdomen: Bowel Sounds Present, Soft, Non Tender, Non-Distended : No dysuria. No renal angle tenderness. No suprapubic tenderness. Extremities: No edema, Capillary Refill Less than 3 Seconds Skin: No rashes, No breakdown Musculoskeletal: No Tenderness to Palpation of Joints or Extremities Neurological: Cranial nerves II-XII grossly intact, DTR 2+/4. No acute focal neurological deficit. Psych/Mental Status: Normal Affect, Appropriate. Weight / BMI Weight Weight: 203 lb 7.787 oz Body Mass Index (BMI) 29.1 ABG / Lab / Microbiology Data 03/03/25 14:03 03/03/25 00:32 Laboratory: Laboratory Results - last 24 hr 03/02/25 17:10: PT 24.3 H, INR 2.1 03/03/25 00:32: WBC 10.4, RBC 3.80 L, Hgb 12.2 L, Hct 37.0 L, MCV 97.4 H, MCH 32.1 H, MCHC 33.0, RDW Std Deviation 46.8 H, RDW Coeff of Pierre 13.1, Plt Count 154, MPV 10.6, Immature Gran % (Auto) 0.300, Neut % (Auto) 84.1 H, Lymph % (Auto) 6.5 L, [place] % (Auto) 8.7, Eos % (Auto) 0.1, Baso % (Auto) 0.3, Absolute Neuts (auto) 8.8 H, Absolute Lymphs (auto) 0.68 L, Nucleated RBC % 0, Sodium 137, Potassium 5.6 H, Chloride 105, Carbon Dioxide 19.0 L, Anion Gap 13, BUN 38 H, Creatinine 1.51 H, Estim Creat Clear Calc 42.32 L, Est GFR (MDRD) Non-Af 46 L , BUN/Creatinine Ratio 25.2 H, Glucose 129 H, Calcium 8.7, Phosphorus 3.8, Magnesium 2.1, Total Bilirubin 0.94, AST 23, ALT 23, Alkaline Phosphatase 76, T roponin T High Sens 37 H, Total Protein 6.5, Albumin 3.9, Globulin 2.5, Albumin/Globulin Ratio 1.5, Blood Type B POSITIVE, Antibody Screen NEGATIVE 03/03/25 02:39: Troponin T Hi Sens 2 Hr 43 H 03/03/25 04:46: PT 27.4 H, INR 2.5, Troponin T Hi Sens 4Hr 50 H, Triglycerides 65, Cholesterol 94, LDL Cholesterol, Calc 45, VLDL Cholesterol 13, HDL Cholesterol 36 L, Cholesterol/HDL Ratio 2.58, TSH 4.240 H 03/03/25 07:17: Urine Color Yellow, Urine Clarity Clear, Urine pH 5.0, Ur Specific [place] 1.015, Urine Protein 30 H, Urine Glucose (UA) Normal, Urine Ketones Negative, Urine Occult Blood 250 H, Urine Nitrite Negative, Urine Bilirubin Negative, Urine Urobilinogen Normal, Ur Leukocyte Esterase Negative, Urine RBC 10-25 SEEN, Urine WBC 0 SEEN, Ur Squamous Epith Cells 0 SEEN, Urine Bacteria 0 SEEN, Urine Mucus 0 SEEN 03/03/25 08:25: Hgb 11.4 L, Hct 34.7 L 03/03/25 14:03: Hgb 10.6 L, Hct 32.1 L Radiography Diagnostic Testing: Radiology Impression Hip/Pelvis X-Ray 03/02/25 16:16 IMPRESSION: No acute osseous abnormalities. Bilateral hip osteoarthrosis. Reading Location: [facility] Brain CT 03/02/25 16:40 IMPRESSION: No acute intracranial abnormality. Reading Location: [facility] Lower Extremity CT 03/02/25 18:18 IMPRESSION: Minimally displaced acute comminuted fractures of the right acetabulum, mainly involving the anterior column, which propagates along the medial aspect of right iliac wing, and nondisplaced fractures involving the superior and inferior pubic rami. No proximal right femur fracture or dislocation. Moderate right pelvic sidewall hematoma medial to the right acetabular wall, tracking along the right aspect of the pelvis and visualized lower retroperitoneum, with intramuscular component in the right obturator internus muscle belly. Suggest contrast-enhanced CT of the pelvis with early arterial and delayed venous phase images to assess for any potential active bleeding, if clinically warranted. Findings communicated with provider Edu Dean 03/02/2025 at 6:50 p.m. 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 Reading Location: [facility] Abdomen/Pelvis CT 03/03/25 01:05 IMPRESSION: Acute oblique mildly displaced fracture of the right iliac bone reaching the right acetabular roof. Acute nondisplaced fracture of the right inferior pubic ramus. Acute oblique mildly displaced fracture of the lateral aspect of the right superior pubic ramus reaching the acetabulum. Underlying deep pelvic/periacetabular acute hematoma measuring 11.7 x 7.3 cm without associated active bleeding during the time of the exam. Minimal bilateral pleural effusions. Passive atelectatic airspace disease of the lower lobes. Mild cardiomegaly. 3 mm left renal nonobstructing stone. Scattered left renal simple cysts with the largest measuring 1.6 cm. Mild prostatomegaly. Scattered prostatic calcifications. Fat containing umbilical hernia without incarceration. Reading Location: [facility] D/C Instructions DC O2, CPAP, BIPAP Needs Home O2 Discharge instructions: No Meaningful Use Info Meaningful Use Meaningful Use Diagnoses (Choose all that apply): None applicable Discharge Plan Admission Admit Date/Time: 03/02/25 23:34 Attending Provider: Marcos Sanz Primary Care Provider: Tien Fernandez Consulting Providers: Isac Henderson; Marisol Vasquez Discharge Orders/Prescriptions Prescriptions: No Action warfarin [Coumadin] 5 mg tablet 5 mg PO MOTUWETHFRSA Patient Comments: 7.5 mg Thursday atorvastatin [Lipitor] 20 mg tablet 20 mg PO DAILY warfarin 6 MG tablet 5 mg PO SUTUWETHSA lisinopril 10 MG tablet 10 mg PO DAILY Qty: 30 0RF sertraline 100 mg tablet 100 mg PO DAILY doxycycline hyclate 100 mg tablet 100 mg PO BID Patient Comments: no currently taking umeclidinium-vilanterol [Anoro Ellipta] 62.5-25 mcg/actuation blister with device INHALATION DAILY Patient Comments: 1 puff albuterol sulfate 90 mcg/actuation HFA aerosol inhaler 2 puff inhalation DAILY PRN (Reason: shortness of breath or wheezing) Patient Comments: has but only uses prn Referrals / Follow Up: Tien Fernandez MD [Primary Care Provider, Medical] Disposition Disposition (needs filled in before D/C Order can be placed): DC/Tx to Another Type of HCF Charges/Coding Visit Charges Inpatient E&M: 92996 Disch Hosp >30min
== END 2025-03-03 15:11 | disposition other institution (70) | DRG 536 ==
LOC: ED 22:49 → PCU 03-03 01:13
PROVIDERS: Admitting Provider Internal Medicine; Emergency Provider Emergency Medicine; PCP Family Medicine; Visit Provider Internal Medicine
DX: S32.431A Displaced fracture of anterior column [iliopubic] of right acetabulum, initial encounter for closed fracture (principal); D68.32 Hemorrhagic disorder due to extrinsic circulating anticoagulants; I48.20 Chronic atrial fibrillation, unspecified; S32.511A Fracture of superior rim of right pubis, initial encounter for closed fracture; S32.591A Other specified fracture of right pubis, initial encounter for closed fracture; E66.811 Obesity, class 1; S01.01XA Laceration without foreign body of scalp, initial encounter; S30.0XXA Contusion of lower back and pelvis, initial encounter; N18.32 Chronic kidney disease, stage 3b; I12.9 Hypertensive chronic kidney disease with stage 1 through stage 4 chronic kidney disease, or unspecified chronic kidney disease; F32.A Depression, unspecified; E78.5 Hyperlipidemia, unspecified; S61.412A Laceration without foreign body of left hand, initial encounter; S51.011A Laceration without foreign body of right elbow, initial encounter; E87.5 Hyperkalemia; F41.9 Anxiety disorder, unspecified; W19.XXXA Unspecified fall, initial encounter; Z68.30 Body mass index [BMI] 30.0-30.9, adult; Z87.891 Personal history of nicotine dependence; Z79.01 Long term (current) use of anticoagulants; Z79.899 Other long term (current) drug therapy; Z86.718 Personal history of other venous thrombosis and embolism
CPT/HCPCS: 36415; 70450; 73502; 73700; 74177; 80053; 80061; 81001; 83735; 84100; 84443; 84484; 85014; 85018; 85025; 85610; 86850; 86900; 86901; 99285; P9017; Q9967; A4216; J2405

== ENCOUNTER 2025-03-10 15:20 | Inpatient (IN) | payer MEDICARE, SELFPAY ==
[2025-03-10 15:39] VITALS: BP 128/76; PULSE 82; RESP 12; TEMP 36.4; O2SAT 82; O2SAT 98; BMI 29.4
[2025-03-10] MEDS: Warfarin (PBKC) 5 MG Tablet PO (17:10)
[2025-03-10 17:50] LABS: Prothrombin Time (Protime)PT. 22.3 SECONDS (11.7-14.9)
--- NOTE | 2025-03-10 18:17 | NURSING ---
Patient Admitted From [facility], Admission Date 03/10/2025 Time 1520. Admitted With Family At The Bedside; Melissa Thompson. Patient A/O X3. Has No Complaints Of Pain At This Time. Patient Admission Questions Completed Upon Assessment, Assessment Completed With ESTRADA Najera. PT/INR Orders Placed STAT. Results Are As Follows PT: 22.3 INR: 1.9. Notified, Verbal Orders To Give Warfarin Per Medication Order. Patient Oriented To Hospital & Room, Call Molina Within Reach, Bed In Lowest Position, Yellow Fall Sign Posted and Yellow Fall Bracelet, Patient Calm & Cooperative At This Time & Resting In Bed.
[2025-03-10] MEDS: Senna/Docusate Sodium 1 Tablet 2 TABLET PO (21:05)
[2025-03-10 21:17] VITALS: BP 112/82; PULSE 80
[2025-03-11 07:09] LABS: Hematocrit 33.2 % (40-54); Hemoglobin 11.1 g/dL (13.0-16.5); Immature Granulocytes Count 0.030 X10^3/uL (0.0-0.0); Mean Corp Hgb Conc 33.4 g/dL (32-36); Mean Corpuscular Volume 96.8 fL (80-94); Mean Platelet Vol. 10.1 fl (6.2-12.0); NRBC Flagged by Analyzer 0 % (0-5); Platelet Count 178 K/mm3 (150-450); RBC Distribution Width CV 13.3 % (11.6-14.6); RBC Distribution Width SD 47.4 fl (35.1-43.9); Red Blood Count 3.43 M/mm3 (4.6-6.2); White Blood Count 6.9 K/mm3 (4.4-11.0)
[2025-03-11 07:45] LABS: Anion Gap 10 (5-15); BUN 26 mg/dL (4-19); BUN/Creat Ratio 22.5 RATIO (10-20); Calcium,Total 9.4 mg/dL (7.6-11.0); Carbon Dioxide 24.2 mmol/L (21.0-32.0); Chloride 105 mmol/L (98-108); Estimated Creatinine Clearance 54.83 ml/min (50-250); Glucose 107 mg/dL (70-99); Potassium 4.8 mmol/L (3.3-5.1)
--- NOTE | 2025-03-11 08:13 | HP.PCM_ITS ---
[facility] - General General Date of Admission: 03/10/25 Date of Service: 03/11/25 Chief Complaint: Debility due to fall with multiple fractures. HPI Narrative CLEVELAND MORLEY, is a 84 YO M with a PMH of essential hypertension, hyperlipidemia, former tobacco dependence, chronic atrial fibrillation, chronic anticoagulation with warfarin, remote history of DVT over 30 years ago unprovoked, asthma, stage III chronic renal failure, diverticulosis, colon polyps, depression/anxiety, history of basal cell carcinoma with excisions and osteoarthritis who presented to the emergency department at [facility] on 03/02/2025 after a fall at home. He was on his deck and he has lost his balance and fell over onto his right side. He admitted to having a problem with disequilibrium and loss of balance and had recently been seeing physical therapy as an outpatient. He complained of right hip pain and left upper extremity pain. He had a scalp laceration and multiple lacerations to the right hand. Imaging revealed anterior column acetabular fracture with no dislocation. There was no hip fracture. There was also a moderate right pelvic sidewall hematoma medial to the right acetabular wall. CT scan of the abdomen and pelvis also showed minimal bilateral pleural effusions and oblique mildly displaced fracture of the lateral aspect of the right superior pubic ramus, and acute nondisplaced fracture of the right inferior pubic ramus, a deep pelvic/periacetabular hematoma measuring 11.7 x 7.3 cm without associated active bleeding, a nonobstructing kidney stone, left renal simple cysts, prostatic enlargement with scattered prostatic calcifications and a fat-containing umbilical hernia without incarceration. INR in the emergency department was 2.1 and he was given vitamin K. He also received 2 units of fresh frozen plasma. He was seen in consultation by Dr. Gee from orthopedics who recommended conservative therapy. He was admitted to the hospitalist service. Consult was ordered with general surgery regarding the pelvic hematoma. Dr. Vasquez recommended transfer to a tertiary facility with IR capabilities. He was transferred to [facility]. At [facility] he had imaging of the LUE and showed acute displaced fractures of the 4th and 5th metacarpal shafts. At [facility] he was seen by orthopedics and they splinted the left hand fractures at the bedside. He did not require any operative intervention. They elected to treat the nondisplaced acetabular fracture nonoperatively. He was made toe-touch weightbearing on the right lower extremity and nonweightbearing on the left hand. He was transferred to the transitional care unit at [facility] on 03/10/2025 for PT/OT to restore function/independence so that he will be able to go home and maintain toe-touch weightbearing. He lives in a one-story house and has 2 or 3 steps to get into his house from his garage. There are 2 handrails. He has a walk-in shower with grab bars and he has an elevated toilet. [place] tells me he did not sleep well last night and that the ambulance ride from [facility] caused increased pain. Currently his pain is tolerable. He is currently on Robaxin 750 mg 3 times daily, Tylenol 1 g p.o. every 8 hours, gabapentin 100 mg 3 times daily and oxycodone 5 mg every 4 hours as needed pain. All lab drawn this morning was personally reviewed. His hemoglobin is stable at 11.1 and the white blood cell count is normal with an unremarkable differential. Platelets are within normal limits. INR today is 2 which is up from 1.9 last evening. He is on warfarin. He received vitamin K last week just after the accident when the pelvic hematoma was discovered. Sodium is 139 and the potassium is 4.8. BUN is 26 with a creatinine of 1.17. Mucous membranes are dry and he has not been drinking enough. I encouraged him to increase his fluid intake. Calcium is normal. He had osteopenia on his x-rays and he has not been taking calcium or vitamin D. His vitamin D level is low at 23.4. [facility] Medical History (Updated 03/12/25 @ 07:[address] Heidy Vital DO) Prostatic enlargement Disequilibrium Tobacco dependence in remission COPD exacerbation Obesity (BMI 30.0-34.9) Laceration of left hand Laceration of elbow, right History of basal cell carcinoma CKD (chronic kidney disease) Diverticulosis Hyperlipidemia History of colonic polyps Diarrhea Anxiety Hypertension History of DVT (deep vein thrombosis) Home Medications Medication Instructions Recorded Last Taken Type atorvastatin 20 mg tablet (Lipitor) 20 mg PO DAILY cho lesterol 02/19/18 03/02/25 History warfarin 5 mg tablet (Coumadin) 5 mg PO .tuwethfrsasu blood thinner 02/19/18 03/07/18 History warfarin 6 mg tablet 7.5 mg PO MO blood thinner 1 003/02/25 History albuterol sulfate 90 mcg/actuation 2 puff inhalation D AILY PRN 03/02/25 Unknown History aerosol inhaler shortness of breath or wheez ing doxycycline hyclate 100 mg tablet 100 mg PO BID antibi otic 03/02/25 Unknown History sertraline 100 mg tablet 100 mg PO DAILY depression 0 03/02/25 03/02/25 History umeclidinium 62.5 mcg-vilanterol 1 inh inhalation SABINA Y respiratory 03/02/25 03/02/25 History 25 mcg/actuation powdr for inhalation (Anoro Ellipta) acetaminophen 500 mg tablet 1,000 mg PO Q8H pain 03/10 Unknown History doxazosin 1 mg tablet 1 mg PO QHS heart 03/10/25 U nknown History gabapentin 100 mg capsule 100 mg PO TID nerve pain 08/30 Unknown History ipratropium 20 mcg-albuterol 100 1 puff inhalation Q6H PRN wheezing 03/10/25 Unknown History mcg/actuation mist for inhalation lisinopril 10 mg tablet 10 mg PO QHS hypertension Unknown History methocarbamol 500 mg tablet 500 mg PO Q8H muscle spasm s 03/10/25 Unknown History oxycodone 5 mg tablet 5 mg PO Q6H PRN pain (scale score 03/10/25 Unknown History 6-10) polyethylene glycol 3350 17 17 g PO DAILY bowels 03/10 Unknown History gram/dose oral powder (Miralax) Allergy/AdvReac Type Severity Reaction Status Date / Time No Known Allergies Allergy Verified 03/02/25 15:57 Family History Mother CAD (coronary artery disease) Father CAD (coronary artery disease) CHF (congestive heart failure) Brother Cancer Stomach Myocardial infarction Sister Asthma Surgical History S/P Mohs surgery for basal cell carcinoma History of colonoscopy (~2018) history bilateral cataract surgery History of elbow surgery History of tonsillectomy Social History (Updated 03/11/25 @ 14:[address] Heidy Vital DO) household members: spouse housing: house number of children: 2 current occupational status: retired Smoking Status: Former smoker how long ago did patient quit smoking: More than 25 years ago. alcohol intake: current alcohol intake frequency: 0-2 drinks per day Alcohol type: other details: bhavin substance use type: does not use ROS Review of Systems ROS Unobtainable: Denies due to encephalopathy, due to endotracheal tube, due to mental condition or due to mental status Constitutional Constitutional: Denies anorexia, change in weight, chills, fatigue, fever(s), night sweats or weakness Eyes Eyes: Denies blurry vision, change in vision, eye pain or loss of vision ENT HEENT: Denies abnormal hearing, dysphagia, headache(s), hearing loss, nasal congestion or sore throat Cardiovascular Cardiovascular: Reports lightheadedness and other Details: Has had 2 syncopal episodes in the past. No prodrome with either.......one occurred while he was sitting down. Sees cardiology. Has never had a tilt table. ; Denies chest pain, dyspnea on exertion, edema, orthopnea, palpitations, paroxysmal nocturnal dyspnea or syncope Respiratory/Chest Respiratory/Chest: Reports other Details: Having some pain in the R posterior chest with movement and deep breathing. No hemoptysis and no cough. ; Denies cough, dyspnea, shortness of breath at rest, shortness of breath with exertion or wheezing Gastrointestinal Gastrointestinal: Denies abdominal pain, constipation, diarrhea, dyspepsia, hematemesis, hematochezia, nausea or vomiting Genitourinary Genitourinary: Denies dysuria, hematuria, nocturia, urinary frequency, urinary hesitancy, urinary incontinence or urinary urgency Musculoskeletal Musculoskeletal: Reports difficulty walking, extremity pain, joint pain, stiffness and other Details: Pain in the left arm/hand and in the R hip. Also with R posterior thorax pain. These are due to recent trauma. ; Denies back pain, joint swelling or neck pain Integumentary Integumentary: Reports wounds and other Details: bruising due to trauma ; Denies jaundice Neurologic Neurologic: Reports disequilibrium; Denies confusion, dizziness, focal weakness, headache(s), paresthesias, seizures or tremor(s) Psychiatric Psychiatric: Reports anxiety, depression and other Details: On an SSRI chronically ; Denies homicidal ideation or suicidal ideation Endocrine Endocrinology: Denies change in body appearance, polydipsia or polyuria Hematologic/Lymphatic Hematologic/Lymphatic: Reports easy bleeding, easy bruising and other Details: Chronically on warfarin for atrial fibrillation. ; Denies lymphadenopathy Allergic/Immunologic Allergic/Immunologic: Denies rhinitis, eczemia or asthma Vital Signs Vital Signs Vital Signs: 03/10/25 15:39 03/10/25 15:39 03/10/25 21:17 Temperature 97.6 F L Temperature Source Temporal Pulse Rate 82 82 80 Pulse Rhythm Irregular Pulse Strength Normal (2+) Respiratory Rate 12 12 Respiratory Effort Normal Non-Labored Respiratory Depth Normal Respiratory Pattern Normal Blood Pressure 128/76 H 112/82 H Blood Pressure Mean 93 92 Blood Pressure Source Monitor Monitor Blood Pressure Position Sitting Semi-Fowlers Blood Pressure Location Left Arm Right Arm Pulse Ox 82 98 Oxygen Delivery Method Room Air Room Air 03/10/25 22:00 Temperature Temperature Source Pulse Rate Pulse Rhythm Pulse Strength Normal (2+) Respiratory Rate Respiratory Effort Respiratory Depth Respiratory Pattern Blood Pressure Blood Pressure Mean Blood Pressure Source Blood Pressure Position Blood Pressure Location Pulse Ox Oxygen Delivery Method Weight Weight: 205 lb 3.2 oz Body Mass Index (BMI) 29.4 Physical Exam Const alert, oriented x3 and no apparent distress Constitutional Narrative: Making good eye contact, appropriate, calm. General Appearance: cooperative and comfortable HEENT HEENT Narrative: Dry mucous membranes. No evidence of thrush. Eyes PERRL, EOMs intact bilaterally, conjunctivae normal and no scleral icterus Eyes Narrative: No discharge from the eyes. No visual field loss. General Eye: normal appearance of both eyes Neck no lymphadenopathy, supple, no JVD and no carotid bruits Neck Narrative: Brisk carotid upstroke with good pulse volume. Chest Chest Narrative: having some pain in the R posterior chest. CXR in the ED showed no rib fractures. Pain increases with deep breath and with movement. Chest: symmetrical chest wall rise Resp normal respiratory effort, no use of accessory muscles and clear to auscultation bilaterally Resp Narrative: Not tachypneic and no conversational dyspnea. Breath sounds are somewhat diminished throughout. No crackles and no wheezes. Good effort. Cardio S1 normal heart sound, S2 normal heart sound, no murmurs, no rub and no gallops Cardio Narrative: Irregular irregular rhythm with mildly increased resting heart rate. GI normal to inspection, nondistended, normoactive bowel sounds and non-tender GI Narrative: No guarding with palpation. Denies feeling constipated or having diarrhea. no CVA tenderness Extremity no clubbing, cyanosis or edema Skin no jaundice Skin Narrative: lacerations are intact with no dehiscence, no erythema and no DC. Multiple areas of bruising/ecchymosis. No significant swelling in the fingers of the left hand and he has intact sensation. Rashes: no rashes Neuro oriented x3, CN's II-XII intact bilaterally and no focal motor deficits Motor Exam: strength 5/5 throughout Psych affect normal Psych Narrative: Appropriate, making good eye contact. Able to stay on topic and focus. No flight of ideas. Does not appear anxious or depressed. Conversant and relating well to staff. Results Lab / Micro Data 03/11/25 06:26 03/11/25 06:26 Labs: Laboratory Results - last 24 hr 03/10/25 16:37: PT 22.3 H, INR 1.9 03/11/25 06:26: WBC 6.9, RBC 3.43 L, Hgb 11.1 L, Hct 33.2 L, MCV 96.8 H, MCH 32.4 H, MCHC 33.4, RDW Std Deviation 47.4 H, RDW Coeff of Pierre 13.3, Plt Count 178, MPV 10.1, Immature Gran % (Auto) 0.400, Neut % (Auto) 68.8, Lymph % (Auto) 13.4 L, [place] % (Auto) 12.6 H, Eos % (Auto) 4.5, Baso % (Auto) 0.3, Absolute Neuts (auto) 4.8, Absolute Lymphs (auto) 0.93, Nucleated RBC % 0, Sodium 139, Potassium 4.8, Chloride 105, Carbon Dioxide 24.2, Anion Gap 10, BUN 26 H, Creatinine 1.17, Estim Creat Clear Calc 54.83, Est GFR (MDRD) Non-Af 62, B UN/Creatinine Ratio 22.5 H, Glucose 107 H, Calcium 9.4 Micro: Microbiology 03/11/25 05:35 Nasal Secretion SARS-CoV-2 Antigen (Rapid) - Final Assessment & Plan Assessment/Plan (1) Debility: (2) Fall at home: QUALIFIERS: Encounter type: initial encounter Qualified Code(s): W19.XXXA - Unspecified fall, initial encounter; Y92.009 - Unspecified place in unspecified non-institutional (private) residence as the place of occurrence of the external cause (3) Closed right acetabular fracture: QUALIFIERS: Encounter type: initial encounter Sublocation of acetabulum: unspecified portion of acetabulum Fracture alignment: displaced Q ualified Code(s): S32.401A - Unspecified fracture of right acetabulum, initial encounter for closed fracture (4) Pelvic hematoma in male: (5) Metacarpal bone fracture: (6) Multiple lacerations: (7) Fracture of pubic ramus: QUALIFIERS: Encounter type: initial encounter Fracture type: c losed Laterality: unspecified laterality Qualified Code(s): S32.599A - Other specified fracture of unspecified pubis, initial encounter for closed fracture (8) Atrial fibrillation, chronic: (9) Anticoagulant long-term use: (10) Macrocytic anemia: (11) Vitamin D deficiency: (12) Rib pain on right side: PLAN: Plan PLAN PT for gait stability OT for ADL's Analgesics as needed Bowel protocol Fall precautions Assess for Anxiety/Depression GI prophylaxis -not necessary at this time. He denies heartburn, epigastric pain, nausea, vomiting and history of peptic ulcer disease. DVT prophylaxis -continue warfarin. Goal INR is 2-3. Follow up with orthopedics, PCP and cardiology following DC from Rehab AM lab personally reviewed. Maintain touchdown weightbearing on the right lower extremity. Nonweightbearing on the left upper extremity. Will schedule oxycodone 5 mg with breakfast and 5 mg at bedtime and continue as needed oxycodone every 4 hours as needed. Decrease Robaxin to twice daily check a Vitamin D level Recommend a DEXA as an outpatient to assess for osteoporosis Rib XRAYS on the R side to R/O rib fractures due to the recent fall Encouraged increased fluid intake Decrease Robaxin to twice daily, continue gabapentin 100 mg 3 times daily Schedule 2 doses of oxycodone daily 5 mg with breakfast and 5 mg at at bedtime. Continue oxycodone every 4 hours as needed pain 4-10 Orthostatics in the a.m. Charges/Coding Visit Charges Inpatient E&M: 30780 SN[facility] Init L2
[2025-03-11 08:21] LABS: Prothrombin Time (Protime)PT. 23.3 SECONDS (11.7-14.9)
[2025-03-11 08:43] VITALS: BP 110/64; BP 111/63; BP 117/52; PULSE 61; PULSE 77; PULSE 86; RESP 17; TEMP 36.7; O2SAT 94
[2025-03-11] MEDS: Umeclidinium Brm/Vilanterol 62.5-25 mcg Inh 1 PUFF INHALATION (09:06)
[2025-03-11] MEDS: Senna/Docusate Sodium 1 Tablet 2 TABLET PO (09:09)
[2025-03-11 11:15] LABS: Vitamin D,25 Hydroxy 23.4 ng/mL (30-100)
[2025-03-11] MEDS: Tuberculin,Purif.prot.deriv. 50 TU/ML Vial 0.1 ML ID (12:05)
--- NOTE | 2025-03-11 14:40 | RAD_ITS ---
PROCEDURE: RIBS UNI MIN 3V W/PA CHEST 03/11/2025 REASON FOR EXAM: PAIN R POSTERIOR RIBS AFTER A FALL TECHNIQUE: Procedure Code: RADRIB Modality: DX Procedure: RIBS UNI MIN 3V W/PA CHEST COMPARISON: Chest x-ray from 08/24/2020 FINDINGS: Findings: Acute, minimally displaced right posterior lateral 5th, 6, and 9th ribs without pleural thickening or pneumothorax. Other: No acute pulmonary process Borderline cardiomegaly. RAD/Ribs Uni Min 3V w/PA Chest IMPRESSION: Acute, minimally displaced posterolateral right 5th 6th and 9th rib fractures w ithout pleural thickening or pneumothorax No acute pulmonary process Borderline cardiomegaly Reading Location: [id number]
[2025-03-11] MEDS: Warfarin (PBKC) 5 MG Tablet PO (17:52)
[2025-03-12 06:15] LABS: Prothrombin Time (Protime)PT. 22.6 SECONDS (11.7-14.9)
--- NOTE | 2025-03-12 07:30 | PN_ITS ---
Subjective Subjective Afebrile Vital signs stable Orthostatics were negative yesterday INR today is 1.9 but with recent trauma and pelvic hematoma This is acceptable. He will get 7.5 mg tomorrow and it will likely get up to 2 again. He had only 1 as needed dose of oxycodone 5 mg in the past 12 hours Right rib x-rays revealed acute minimally displaced right posterior lateral 5th, 6th and 9th rib fractures. No evidence of pneumothorax. And that was at 2:45 this morning. Yesterday he had 2 doses of Oxycodone.....1 at 0900 and the other was scheduled dose at bedtime. Tells me that the pain is much better today. He did wake up with pain early this AM and had a PRN dose of Oxycodone. He denies Muscle spasms with the decrease in the Robaxin. Denies cough, shortness of breath at rest, palpitations, lightheadedness. Objective Data Objective Data Vital Signs: Vital Signs Temp Pulse Resp BP Pulse Ox O2 Del Method 98.1 F 77 17 110/64 94 Room Air 03/11/25 08:43 03/11/25 08:43 03/11/25 08:43 03/11/25 08:43 03/11/25 08:43 03/11/25 08:45 Oxygen Delivery Method Room Air Weight: 205 lb 3.194 oz Body Mass Index (BMI) 29.4 Intake & Output: Intake and Output for Last 24 Hours 03/10/25 03/11/25 03/12/25 23:59 23:59 23:59 Intake Total 240 / 240 840 / 840 Output Total 450 / 450 Balance 240 / 240 390 / 390 Lab / Micro Data 03/11/25 06:26 03/11/25 06:26 Labs: Laboratory Results - last 24 hr 03/11/25 06:26: PT 23.3 H, INR 2.0, Sodium 139, Potassium 4.8, Chloride 105, Carbon Dioxide 24.2, Anion Gap 10, BUN 26 H, Creatinine 1.17, Estim Creat Clear Calc 54.83, Est GFR (MDRD) Non-Af 62, BUN/Creatinine Ratio 22.5 H, Glucose 107 H , Calcium 9.4, Vitamin D 25-Hydroxy 23.4 L 03/12/25 05:35: PT 22.6 H, INR 1.9 Micro: Microbiology 03/11/25 05:35 Nasal Secretion SARS-CoV-2 Antigen (Rapid) - Final Radiography Diagnostic Testing: Radiology Impression Ribs w/Chest X-Ray 03/11/25 14:40 IMPRESSION: Acute, minimally displaced posterolateral right 5th 6th and 9th rib fractures without pleural thickening or pneumothorax No acute pulmonary process Borderline cardiomegaly Reading Location: [facility] Physical Exam Const alert, oriented x3 and no apparent distress Constitutional Narrative: Resting in bed when I entered the room. General Appearance: cooperative Resp Resp Narrative: Diminished but clear to auscultation with no rales or wheezes. Able to speak in full sentences. Effort and Inspection: Negative for tachypneic or respiratory distress Cardio Cardio Narrative: Irregular irregular rhythm with heart rate within normal limits despite nothing to block the AV node. Extremity no calf tenderness Assessment & Plan Assessment/Plan (1) Debility: (2) Fall at home: QUALIFIERS: Encounter type: initial encounter Qualified Code(s): W19.XXXA - Unspecified fall, initial encounter; Y92.009 - Unspecified place in unspecified non-institutional (private) residence as the place of occurrence of the external cause (3) Closed right acetabular fracture: QUALIFIERS: Encounter type: initial encounter Sublocation of acetabulum: unspecified portion of acetabulum Fracture alignment: displaced Q ualified Code(s): S32.401A - Unspecified fracture of right acetabulum, initial encounter for closed fracture (4) Pelvic hematoma in male: (5) Metacarpal bone fracture: (6) Multiple lacerations: (7) Fracture of pubic ramus: QUALIFIERS: Encounter type: initial encounter Fracture type: c losed Laterality: unspecified laterality Qualified Code(s): S32.599A - Other specified fracture of unspecified pubis, initial encounter for closed fracture (8) Atrial fibrillation, chronic: (9) Anticoagulant long-term use: (10) Macrocytic anemia: (11) Vitamin D deficiency: (12) Rib pain on right side: (13) Right rib fracture: PLAN: Plan 1. Continue therapy 2. Increase the at bedtime oxycodone to 10 mg and continue 5 mg every 4 hours as needed for pain 4-10. 3. Change Robaxin to as needed 4. Would like to start tapering off gabapentin......... if he tolerates changing Robaxin to as needed will start to taper gabapentin tomorrow. 5. I gave him his IS and instructed him in use. It was on a table he can not reach so he has not been using. Asked him to do 10 breaths every hour while awake. Charges/Coding Visit Charges Inpatient E&M: 80299 [facility] Subs L1
[2025-03-12] MEDS: Umeclidinium Brm/Vilanterol 62.5-25 mcg Inh 1 PUFF INHALATION (09:55)
[2025-03-12] MEDS: Cholecalciferol (VIT D3) 25 MCG TABLET (1,000 UNITS) PO (09:56)
[2025-03-12] MEDS: FLU VACCINE HIGH DOSE 25-26(65YR UP) 180 MCG/0.5 ML SYRINGE IM (10:01)
[2025-03-12 10:28] VITALS: BP 130/83; PULSE 78; RESP 16; TEMP 36.6; O2SAT 95
[2025-03-12] MEDS: Warfarin (PBKC) 5 MG Tablet PO (16:05)
[2025-03-12 20:00] VITALS: PULSE 82; O2SAT 94
[2025-03-12 21:49] VITALS: BP 131/83; PULSE 98
[2025-03-13 02:09] VITALS: PULSE 70; O2SAT 94
[2025-03-13 08:37] LABS: Prothrombin Time (Protime)PT. 23.1 SECONDS (11.7-14.9)
[2025-03-13] MEDS: Umeclidinium Brm/Vilanterol 62.5-25 mcg Inh 1 PUFF INHALATION (09:30)
[2025-03-13] MEDS: Cholecalciferol (VIT D3) 25 MCG TABLET (1,000 UNITS) PO (09:33)
[2025-03-13] MEDS: Senna/Docusate Sodium 1 Tablet 2 TABLET PO ×2 (09:34→21:42)
[2025-03-13 09:38] VITALS: BP 100/60; PULSE 62; RESP 18; TEMP 36.4; O2SAT 96
--- NOTE | 2025-03-13 09:48 | PHA.CONS_ITS ---
TCU RX Drug Regimen Review Subjective/Objective Subjective/Objective Subjective: TCU admission note. 85 YOM with PMH as listed below here s/p nondisplaced acetabular fracture for rehabilitation prior to discharge. Objective: Allergies No Known Allergies Allergy (Verified 03/02/25 15:57) Current Medications Generic Name Dose Route Start Last Admin Trade Name Freq PRN Reason Stop Dose Admin Acetaminophen 1,000 mg 03/10/25 22:00 03/13/25 06:25 Acetaminophen 500 Mg Tablet PO 1,000 mg Q8 POLLY Administration Albuterol Sulfate 1 puff 03/10/25 16:07 Albuterol Ih (6.7 Gm) 1 Puff Inhaler INHALATION Q6H PRN wheezing Atorvastatin Calcium 20 mg 03/11/25 10:00 03/13/25 09:31 Atorvastatin Calcium 20 Mg Tablet PO 20 mg DAILY POLLY Administration Calamine/Phenol 1 applic 03/10/25 22:00 03/13/25 09:31 Menthol/Lanolin/Calamine/Znox 113 Gm Tube TOPICAL 1 applic BID [facility] Administration Protocol Cholecalciferol 25 mcg 03/12/25 10:00 03/13/25 09:33 Cholecalciferol (Vit D3) 25 Mcg Tablet (1,000 Units) PO 25 mcg DAILY POLLY Administration Doxazosin Mesylate 1 mg 03/10/25 22:00 03/12/25 21:57 Doxazosin 1 Mg Tablet PO 1 mg QHS [facility] Administration Protocol Gabapentin 100 mg 03/10/25 22:00 03/13/25 06:25 Gabapentin 100 Mg Capsule PO 100 mg TID POLLY Administration Lisinopril 10 mg 03/10/25 22:00 03/12/25 21:58 Lisinopril 10 Mg Tablet PO 10 mg QHS [facility] Administration Protocol Magnesium Citrate 300 ml 03/10/25 16:01 Magnesium Citrate 300 Ml PO X1 PRN Constipation Methocarbamol 500 mg 03/12/25 09:32 Methocarbamol 500 Mg Tablet PO 03/21/25 22:01 BID PRN MUSCLE SPASM Nystatin 1 applic 03/10/25 22:00 03/13/25 09:31 Nystatin Powder 15gm Bottle TOPICAL 1 applic BID [facility] Administration Protocol Oxycodone HCl 5 mg 03/11/25 12:30 03/13/25 03:42 Oxycodone 5 Mg Tablet PO 5 mg Q4H PRN PRN Administration pain (scale score 6-10) Oxycodone HCl 0 mg 03/12/25 22:00 03/13/25 06:26 Oxycodone 5 Mg Tablet PO 5 mg 0700,2200 [facility] Administration Polyethylene Glycol 17 gm 03/11/25 10:00 03/13/25 09:31 Polyethylene Glycol 3350 17 Gm Packet PO Not Given DAILY [facility] Senna/Docusate Sodium 2 tablet 03/10/25 22:00 03/13/25 09:34 Senna/Docusate Sodium 1 Tablet PO 1 tablet BID POLLY Administration Sertraline HCl 100 mg 03/11/25 10:00 03/13/25 09:33 Sertraline 100 Mg Tablet PO 100 mg DAILY [facility] Administration Sodium Chloride 10 - 40 ml 03/10/25 15:40 0.9% Saline Lock 10 Ml Syringe IV UD PRN SALINE FLUSH Tuberculin PPD 0.1 ml 03/18/25 10:00 Tuberculin,Purif.Prot.Deriv. 50 Tu/Ml Vial ID 03/18/25 10:01 X1 ONE Umeclidinium/Vilanterol 1 puff 03/11/25 10:00 03/13/25 09:30 Umeclidinium Brm/Vilanterol 62.5-25 Mcg Inh INHALATION 1 puff DAILY [facility] Administration Warfarin Sodium 5 mg 03/10/25 17:00 03/12/25 16:05 Warfarin (Pbkc) 5 Mg Tablet PO 5 mg [id number] [facility] Administration Warfarin Sodium 7.5 mg 03/13/25 17:00 Warfarin (Pbkc) 7.5 Mg Tablet PO Mo@1700 [facility] Problem List Right rib fracture (Acute) Rib pain on right side (Acute) Macrocytic anemia (Acute) Multiple lacerations (Acute) Metacarpal bone fracture (Acute) Debility (Acute) Vitamin D deficiency (Acute) Fall at home (Acute) Pelvic hematoma in male (Acute) Fracture of pubic ramus (Acute) Atrial fibrillation, chronic (Chronic) Anticoagulant long-term use (Chronic) Closed right acetabular fracture (Acute) Vital Signs Temp Pulse Resp BP Pulse Ox O2 Del Method 97.6 F L 62 18 100/60 96 Room Air 03/13/25 09:38 03/13/25 09:38 03/13/25 09:38 03/13/25 09:38 03/13/25 09:38 03/13/25 09:38 Oxygen Delivery Method Room Air Weight: 93.077 kg Body Mass Index (BMI) 29.4 Sodium 139 mmol/L (133-145) 03/11/25 06:26 Potassium 4.8 mmol/L (3.3-5.1) 03/11/25 06:26 Chloride 105 mmol/L (98-108) 03/11/25 06:26 Carbon Dioxide 24.2 mmol/L (21.0-32.0) 03/11/25 06:26 Anion Gap 10 (5-15) 03/11/25 06:26 BUN 26 mg/dL (4-19) H 03/11/25 06:26 Creatinine 1.17 mg/dL (0.70-1.20) 03/11/25 06:26 Est GFR (MDRD) Non-Af 62 (>60) 03/11/25 06:26 BUN/Creatinine Ratio 22.5 RATIO (10-20) H 03/11/25 06:26 Glucose 107 mg/dL (70-99) H 03/11/25 06:26 Assessment/Plan: 1. Pain: acetaminophen 1000 mg PO Q8, oxycodone 5 mg @ 0700 and 10 mg @ 2100, and 5 mg PO Q4H PRN pain -03/17, gabapentin 100 mg PO TID. The patient has required x 2 doses of PRN oxycodone so far this admission. Please continue to monitor pain levels, PRN medication usage, LFTs (AST/ALT = 23/23 U/L on 03/03/25), renal function (serum creatinine = 1.17 mg/dL with creatinine cleara nce ~ 55 mL/min on 03/11/25), for lower extremity edema, for constipation, respiratory depression, syncope/ataxia/falls, and for dizziness/drowsiness. 2. Bowel: senna/docusate 2 tablets PO BID, polyethylene glycol 17 grams PO daily, magnesium citrate 300 mL PO x 1 PRN constipation. The patient has not required any PRN doses of magnesium citrate so far this admission and the patient's last documented bowel movement was on 03/11/25. Please continue to monitor for PRN medication usage, for bowel movements, for constipation, and diarrhea. 3. Asthma: umeclidinium/vilanterol 1 puff daily, albuterol 1 puff Q6H PRN wheezing. The patient has not required any PRN doses of albuterol so far this admission. Please continue to monitor for shortness of breath, cough, increased wheezing, PRN medication usage, for dry mouth, and for palpitations. 4. Hyperlipidemia: atorvastatin 20 mg PO daily. Please continue to monitor lipid levels (cholesterol = 94 mg/dL with LDL = 45 mg/dL on 03/03/25), LFTs (AST/ALT = 23/23 U/L on 03/03/25), and for myalgias. 5. History of DVT: warfarin 7.5 mg on Mondays, and 5 mg on all other days. Please continue to monitor for s/s of a DVT such as pain/erythema/edema in an e xtremity, for bleeding/excessive bruising, hemoglobin levels (Hgb = 11.1 g/dL on 03/11/25), platelet counts (Plt = 178 K/mm3 on 03/11/25), and INR (INR = 2.0 on 03/13/25). 6. Muscle spasms: methocarbamol 500 mg PO BID PRN muscle spasms. The patient has not required any PRN doses from this order so far this admission. Please continue to monitor for muscle spasms, for PRN medication usage, for drowsin ess/dizziness, and for syncope/ataxia/falls. 7. Hypertension: doxazosin 1 mg PO QHS, lisinopril 10 mg PO daily. Please continue to monitor blood pressures (recent range = 100-131/60-83 mmHg), for s/s of orthostasis, renal function (serum creatinine = 1.17 mg/dL with creatinine clearance ~ 55 mL/min on 03/11/25), potassium levels (K = 4.8 mmol/L on 03/11/25), for cough, and for angioedema. 8. Vitamin D deficiency: cholecalciferol 25 mcg PO daily. Please continue to monitor vitamin D levels (vitamin D = 23.4 ng/mL on 03/11/25), and for s/s of vitamin D deficiency. 9. Skin irritation/tinea corporis: calmoseptine 1 application topically BID, nystatin powder 1 application topically BID. Please continue to monitor for resolution of tinea corporis and for skin irritation/skin integrity. Assessment/Plan for indications treated with psychotropic medications: 1. Depression/anxiety: sertraline 100 mg PO daily. Monitor for efficacy including resident symptoms, behaviors and indications of distress. Monitor for s/s of depression/anxiet and for SI.Monitor for tolerability including mental status, cognition, excessive sleepiness, withdrawal or decreased participation in activities and decline in physical functioning. Maximize use of nonpharmacologic/behavioral interventions to facilitate dose reduction or discontinuation as appropriate. Please evaluate the appropriateness of GDR unless contraindicated. If appropriate, GDR should be attempted in 2 separate quarters within the first year of use or admission to TCU. If GDR attempted, monitor resident symptoms/behaviors. Monitor for diarrhea, nausea, headache, anxiety or drowsiness, suicidal thoughts or behaviors (Boxed Warning), symptoms of bleeding, symptoms of serotonin syndrome (including agitation, confusion, hyperreflexia, rigidity/myoclonus, tremor, tachycardia, tachypnea), sodium levels (last Na = 139 mmol/L on 03/11/25). Medical chart and medication regimen reviewed. The following medication irregularities or issues were identified: No recommendations for resident at this time. Date Date of Note: 03/13/25
--- NOTE | 2025-03-13 12:40 | NURSING ---
sample coordinator Note; Activity Asset: Deuce Guillen is independent in his choice of daily activities. He prefers in room over group. His family and insurance verification specialist will visits and he welcomes our circular tank cooper and therapy dog when available. He has his tablet and smartphone he will use for reading, games and talking w/family. Staff will remind him of weekly activities and respect his right to say no.
--- NOTE | 2025-03-13 12:49 | NURSING ---
PT HAS RED/RAISED/ITCHY RASH TO BACK. REQUESTED CREAM,PER TO TRY WEARING A T SHIRT TO BED. RN AWARE
--- NOTE | 2025-03-13 14:30 | CASEMGMT ---
Social Work SW met with patient to complete initial assessment. Introduced self and role. Verified/updated contacts. Pt confirmed code status as full code. Educated to [facility] and Home insurance with [employer] 03/16 and continued stay is not guaranteed with each review. Pt's goal is to return home with . SW will continue to follow for DC planning. Roxanne Alex MSW CONSTRUCTION TECH
--- NOTE | 2025-03-13 15:23 | NURSING ---
Addendum entered by Shirley Khan 03/13/25 17:06: Received call from Dr Gee's office, was told that Dr Gee would like repeat XRs done and that they will enter orders. Original Note: Called Dr. Gee's office to see about repeat xrays and follow-up. Spoke with Whitley. Asked about Dr. Gee following for hand fractures as well. She will check with physician and call back with orders.
[2025-03-13] MEDS: WARFARIN 7.5 MG PO (16:54)
[2025-03-13] MEDS: COVID VAC 25-26 (12UP)(MOD)/PF 50 MCG/0.5 ML SYRINGE IM (16:56)
--- NOTE | 2025-03-13 16:59 | NURSING ---
ASKED PT IF HE STILL WOULD LIKE THE COVID VACCINE. PT STATED YES. VACCINE GIVEN IN RT DELT. PT TOLERATED WELL. WILL MONITOR.
[2025-03-13 21:31] VITALS: BP 117/86; PULSE 94
[2025-03-14 08:27] VITALS: BP 114/53; PULSE 64; RESP 16; TEMP 36.6; O2SAT 93
[2025-03-14] MEDS: Umeclidinium Brm/Vilanterol 62.5-25 mcg Inh 1 PUFF INHALATION (08:29)
[2025-03-14] MEDS: Cholecalciferol (VIT D3) 25 MCG TABLET (1,000 UNITS) PO (08:30)
[2025-03-14] MEDS: Senna/Docusate Sodium 1 Tablet 2 TABLET PO (08:32)
[2025-03-14] MEDS: Polyethylene Glycol 3350 17 GM PACKET PO (08:33)
--- NOTE | 2025-03-14 13:15 | RAD_ITS ---
PROCEDURE: HAND MIN 3 VIEWS 03/14/2025 REASON FOR EXAM: FRACTURE TECHNIQUE: Procedure Code: [facility] Modality: DX Procedure: HAND MIN 3 VIEWS. Examination was obtained in a plaster cast limiting the evaluation. Laterality: Left hand. COMPARISON: None FINDINGS: Bones: Findings suggestive of an undisplaced fracture of the midportion of the 4th and 5th metacarpals. Satisfactory alignment. Joints: Normal alignment. Mild degenerative changes. Soft tissues: Soft tissue swelling. Other: RAD/Hand Min 3 Views IMPRESSION: Nondisplaced oblique fractures through the midportions of the 4th and 5th metac arpals with overlying soft tissue swelling. There is good alignment. Degenerative changes of the interphalangeal joints. Reading Location: [facility]
--- NOTE | 2025-03-14 13:15 | RAD_ITS ---
PROCEDURE: HIP, UNI W/ PELVIS 2-3 VIEWS 03/14/2025 REASON FOR EXAM: FRACTURE TECHNIQUE: Procedure Code: [facility] Modality: DX Procedure: HIP, UNI W/ PELVIS 2-3 VIEWS Laterality: Right hip COMPARISON: Prior study dated March 02, 2025. FINDINGS: Bones: No fracture seen. Joints: Osteoarthritis of both hip joints. Soft tissues: Unremarkable Other: RAD/HIP, UNI W/ Pelvis 2-3 Views IMPRESSION: Degenerative changes. No fracture or dislocation. Stable examination. Reading Location: [id number]
[2025-03-14] MEDS: Magnesium Citrate 300 ML PO (14:11)
[2025-03-14] MEDS: Warfarin (PBKC) 5 MG Tablet PO (17:36)
[2025-03-14 20:58] VITALS: BP 111/61; PULSE 96
[2025-03-15 02:52] VITALS: PULSE 60; RESP 16; O2SAT 96
--- NOTE | 2025-03-15 04:08 | NURSING ---
Written communication left for Dr. Nelson regarding sutures to R elbow placed 03/02/25 in [facility] ED and the need for removal orders.
[2025-03-15 10:12] VITALS: BP 100/55; PULSE 56; RESP 18; TEMP 36.3; O2SAT 93
--- NOTE | 2025-03-15 10:12 | NURSING ---
machine BP readings are as follows, 69/40 Right arm, 82/39 Left arm, manual reading Right arm 100/55
[2025-03-15] MEDS: Umeclidinium Brm/Vilanterol 62.5-25 mcg Inh 1 PUFF INHALATION (10:14)
[2025-03-15] MEDS: Cholecalciferol (VIT D3) 25 MCG TABLET (1,000 UNITS) PO (10:15)
--- NOTE | 2025-03-15 10:26 | CASEMGMT ---
Social Work IDT met with patient and for care plan meeting. Discussed patient's progress in PT/OT/SN/RDN. Educated to [employer] insurance with NRD 03/16 and continued stay is not guaranteed with each review. Provided pt/family with written communication of insurance process and copay coverage during stay. Pt's goal is to DC home with . Encouraged to be active with therapy sessions. inquired if insurance issues DC without pt being ready to DC home, what are the options. SW explained pt can appeal the insurance decision and/or DC to a SNF at an OOP cost with part B therapies. Pt/ prefer to DC home. SW educated to coordinating DME needs and skilled HHC at the time. SW will continue to follow for DC planning. - IDT has noticed some comprehension/cognitive issues with pt; ST order entered. Roxanne Alex DIGITAL CONTENT MARKETING MANAGER ROCK CRUSHER OPERATOR
[2025-03-15] MEDS: Warfarin (PBKC) 5 MG Tablet PO (18:06)
[2025-03-16 07:10] LABS: Prothrombin Time (Protime)PT. 24.6 SECONDS (11.7-14.9)
[2025-03-16 08:12] VITALS: BP 119/84; PULSE 69; RESP 16; TEMP 36.3
[2025-03-16] MEDS: Umeclidinium Brm/Vilanterol 62.5-25 mcg Inh 1 PUFF INHALATION (08:14)
[2025-03-16] MEDS: Cholecalciferol (VIT D3) 25 MCG TABLET (1,000 UNITS) PO (08:15)
--- NOTE | 2025-03-16 12:37 | MDS.RN ---
Pain assessment for MDS complete.
[2025-03-16] MEDS: Warfarin (PBKC) 5 MG Tablet PO (17:22)
[2025-03-16] MEDS: Senna/Docusate Sodium 1 Tablet 2 TABLET PO (21:49)
[2025-03-17 05:47] LABS: Hematocrit 34.0 % (40-54); Hemoglobin 11.3 g/dL (13.0-16.5); Immature Granulocytes Count 0.020 X10^3/uL (0.0-0.0); Mean Corp Hgb Conc 33.2 g/dL (32-36); Mean Corpuscular Volume 96.6 fL (80-94); Mean Platelet Vol. 9.6 fl (6.2-12.0); NRBC Flagged by Analyzer 0 % (0-5); Platelet Count 298 K/mm3 (150-450); RBC Distribution Width CV 13.5 % (11.6-14.6); RBC Distribution Width SD 48.0 fl (35.1-43.9); Red Blood Count 3.52 M/mm3 (4.6-6.2); White Blood Count 7.4 K/mm3 (4.4-11.0)
[2025-03-17 06:14] LABS: Anion Gap 9 (5-15); BUN 34 mg/dL (4-19); BUN/Creat Ratio 31.5 RATIO (10-20); Calcium,Total 9.3 mg/dL (7.6-11.0); Carbon Dioxide 24.5 mmol/L (21.0-32.0); Chloride 104 mmol/L (98-108); Estimated Creatinine Clearance 60.50 ml/min (50-250); Glucose 108 mg/dL (70-99); Potassium 5.0 mmol/L (3.3-5.1)
[2025-03-17 08:39] VITALS: BP 110/60; PULSE 118; RESP 18; TEMP 36.5; O2SAT 96
[2025-03-17] MEDS: Umeclidinium Brm/Vilanterol 62.5-25 mcg Inh 1 PUFF INHALATION (08:42)
[2025-03-17] MEDS: Cholecalciferol (VIT D3) 25 MCG TABLET (1,000 UNITS) PO (08:45)
[2025-03-17] MEDS: Senna/Docusate Sodium 1 Tablet 2 TABLET PO ×2 (08:53→21:55)
[2025-03-17] MEDS: Polyethylene Glycol 3350 17 GM PACKET PO (08:53)
--- NOTE | 2025-03-17 09:30 | NURSING ---
Advertising Vice President Note; MDS for 03/17/2025 Complete
--- NOTE | 2025-03-17 13:03 | NURSING ---
Left VM with Dr. Gee's office about care of left hand fractures/splint. Splint moving around the last couple days per resident. He did say he'd be fine setting up [place] to go to office if physician would like to see him in person.
--- NOTE | 2025-03-17 13:36 | NURSING ---
right elbow sutures removed,. pt tolerated well.
--- NOTE | 2025-03-17 15:47 | NURSING ---
dwight removed from scalp, sutures removed from right hand without incident, pt tolerated well
--- NOTE | 2025-03-17 15:50 | RAD_ITS ---
PROCEDURE: HAND MIN 3 VIEWS 03/17/2025 REASON FOR EXAM: ASSESS FRACTURE POST SPLINT REMOVAL TECHNIQUE: Procedure Code: [facility] Modality: DX Procedure: HAND MIN 3 VIEWS Laterality: COMPARISON: 03/14/2025 left hand radiographs. FINDINGS: Splint has been removed since the prior exam. Comminuted and somewhat foreshortened oblique fracture of the shaft of the 5th metacarpal is identified, with mild dorsal angulation of the fracture apex. Oblique fracture of the 4th metacarpal shaft appears foreshortened approximately 8 mm, with radial angulation of the fracture apex again identified Arthrosis of multiple interphalangeal joints. Wrist alignment appears near anatomic on the lateral view. Mild osteopenia. RAD/Hand Min 3 Views IMPRESSION: Oblique 4th metacarpal shaft fracture appears foreshortened approximately mm, w ith radial angulation of the fracture apex again identified. Comminuted and somewhat foreshortened oblique fracture of the shaft of the 5th metacarpal with dorsal angulation of the apex. Arthrosis of multiple interphalangeal joints. Mild osteopenia. Reading Location: [facility]
--- NOTE | 2025-03-17 16:30 | NURSING ---
splint removed, xrays taken of left hand, dr. lópez and PA in room at bedside. order placed for wrist brace.
[2025-03-17] MEDS: Warfarin (PBKC) 5 MG Tablet PO (16:33)
--- NOTE | 2025-03-17 17:02 | EX.PCM.CON.S ---
Documented by User: BROOK Pérez 03/17/25 17:22 Assessment & Plan Assessment/Plan (1) Fracture of shaft of fourth metacarpal bone of left hand: QUALIFIERS: Encounter type: initial encounter Fracture alignment: displaced Fracture type: closed Qualified Code(s): S62.325A - Displaced fracture of shaft of fourth metacarpal bone, left hand, initial encounter for closed fracture (2) Closed fracture of shaft of fifth metacarpal bone: QUALIFIERS: Encounter type: initial encounter Fracture alignment: displaced Laterality: left Qualified Code(s): S62.327A - Displaced fracture of shaft of fifth metacarpal bone, left hand, initial encounter for closed fracture PLAN: Plan Plan for screw fixation with Dr. Magana early next week Hold Warfarin, discussed with Dr. Nelson Wrist brace in the meantime with activity precautions. HPI Consult Data Date of Consult: 03/17/25 HPI Narrative HPI Narrative: Patient is a 84-year-old male who initially presented to the ED on 03/02/2025 after losing his balance and falling down on his deck. He presented to the ED for initial trauma workup was found to have anterior column acetabular fracture without dislocation that was being treated nonoperatively, and pelvic hematoma, and left hand hand lacerations. He was transferred to outside hospital for IR interventions for his pelvis and states during his time there an x-ray of his left hand was obtained which noted his fractures and he was fitted with a splint. Patient was seen at bedside with Dr. Magana with his spouse and nurse at bedside. He does note there is a floppy sensation when he tries to use his left hand but states his pain is generally well-controlled at this time. He is right-hand dominant, he has never injured his left hand before. He does not have history of diabetes, he is not a smoker. He takes warfarin for chronic atrial fibrillation. He never had complications from anesthesia in the past. [facility] Medical History (Updated 03/17/25 @ 17:22 by BROOK Pérez) Closed fracture of shaft of fifth metacarpal bone Fracture of shaft of fourth metacarpal bone of left hand Closed displaced fracture of neck of left fifth metacarpal bone Closed displaced fracture of neck of left fourth metacarpal bone Prostatic enlargement Disequilibrium Tobacco dependence in remission COPD exacerbation Obesity (BMI 30.0-34.9) Laceration of left hand Laceration of elbow, right History of basal cell carcinoma CKD (chronic kidney disease) Diverticulosis Hyperlipidemia History of colonic polyps Diarrhea Anxiety Hypertension History of DVT (deep vein thrombosis) Home Medications Medication Instructions Recorded Last Taken Type atorvastatin 20 mg tablet (Lipitor) 20 mg PO DAILY cholesterol 02/19/18 03/02/25 History warfarin 5 mg tablet (Coumadin) 5 mg PO .tuwethoneidasu blood thinner 02/19/18 03/07/18 History warfarin 6 mg tablet 7.5 mg PO MO blood thinner 03/08/18 03/02/25 History albuterol sulfate 90 mcg/actuation 2 puff inhalation DAILY PRN 03/02/25 Unknown History aerosol inhaler shortness of breath or wheezing doxycycline hyclate 100 mg tablet 100 mg PO BID antibiotic 03/02/25 Unknown History sertraline 100 mg tablet 100 mg PO DAILY depression 03/02/25 03/02/25 History umeclidinium 62.5 mcg-vilanterol 1 inh inhalation DAILY respiratory 03/02/25 03/02/25 History 25 mcg/actuation powdr for inhalation (Anoro Ellipta) acetaminophen 500 mg tablet 1,000 mg PO Q8H pain 03/10/25 Unknown History doxazosin 1 mg tablet 1 mg PO QHS heart 03/10/25 Unknown History gabapentin 100 mg capsule 100 mg PO TID nerve pain 03/10/25 Unknown History ipratropium 20 mcg-albuterol 100 1 puff inhalation Q6H PRN wheezing 03/10/25 Unknown History mcg/actuation mist for inhalation lisinopril 10 mg tablet 10 mg PO QHS hypertension 03/10/25 Unknown History methocarbamol 500 mg tablet 500 mg PO Q8H muscle spasms 03/10/25 Unknown History oxycodone 5 mg tablet 5 mg PO Q6H PRN pain (scale score 03/10/25 Unknown History 6-10) polyethylene glycol 3350 17 17 g PO DAILY bowels 03/10/25 Unknown History gram/dose oral powder (Miralax) Allergy/AdvReac Type Severity Reaction Status Date / Time No Known Allergies Allergy Verified 03/02/25 15:57 Family History Mother CAD (coronary artery disease) Father CAD (coronary artery disease) CHF (congestive heart failure) Brother Cancer Stomach Myocardial infarction Sister Asthma Surgical History S/P Mohs surgery for basal cell carcinoma History of colonoscopy (~2018) history bilateral cataract surgery History of elbow surgery History of tonsillectomy Social History (Updated 03/11/25 @ 14:[address] Heidy Vital DO) household members: spouse housing: house number of children: 2 current occupational status: retired Smoking Status: Former smoker how long ago did patient quit smoking: More than 25 years ago. alcohol intake: current alcohol intake frequency: 0-2 drinks per day Alcohol type: other details: bhavin substance use type: does not use ROS ROS Narrative General: Denies fever, chills HEENT: Denies headaches, vision changes, sore throat Cardio: Denies chest pain, leg edema Pulmonary: Denies shortness of pain, cough, wheezing GI: Denies nausea, vomiting, diarrhea Physical Exam Narrative Afebrile/VSS. Lying in bed no acute distress. Left upper extremity: Left ulnar hand is edematous, ecchymosis along wrist. Unstable 4th and 5th MCPs. Focal tenderness to fracture areas. Flexes, extends MCPs, PIP, DIP. No scissorsing or angulation. Hyperextends fingers, no mallet or jersey fingers. Intact collateral ligaments. Sensations intact to light touch Digits are pink, well-perfused, capillary refill less than 2 seconds no tenderness to wrist palpation or manipulation Lab / Micro Data 03/17/25 05:15 03/17/25 05:15 Labs: Laboratory Results - last 24 hr 03/17/25 05:15: WBC 7.4, RBC 3.52 L, Hgb 11.3 L, Hct 34.0 L, MCV 96.6 H, MCH 32.1 H, MCHC 33.2, RDW Std Deviation 48.0 H, RDW Coeff of Pierre 13.5, Plt Count 298, MPV 9.6, Immature Gran % (Auto) 0.300, Neut % (Auto) 68.0, Lymph % (Auto) 14.8 L, [place] % (Auto) 10.2 H, Eos % (Auto) 6.4 H, Baso % (Auto) 0.3, Absolute Neuts (auto) 5.0, Absolute Lymphs (auto) 1.09, Nucleated RBC % 0, Sodium 138, Potassium 5.0, Chloride 104, Carbon Dioxide 24.5, Anion Gap 9, BUN 34 H, Creatinine 1.07, Estim Creat Clear Calc 60.50, Est GFR (MDRD) Non-Af 69, BUN/Creatinine Ratio 31.5 H, Glucose 108 H, Calcium 9.3 Imaging Radiology Impression Hand X-Ray 03/17/25 15:50 IMPRESSION: Oblique 4th metacarpal shaft fracture appears foreshortened approximately mm, with radial angulation of the fracture apex again identified. Comminuted and somewhat foreshortened oblique fracture of the shaft of the 5th metacarpal with dorsal angulation of the apex. Arthrosis of multiple interphalangeal joints. Mild osteopenia. Reading Location: [facility] Charges/Coding Visit Charges Office Visits / Consults: 66759 OV L2 New 15min Documented by User: Dr. Adin Magana MD 03/18/25 10:21 Assessment & Plan Assessment/Plan (1) Fracture of shaft of fourth metacarpal bone of left hand: QUALIFIERS: Encounter type: initial encounter Fracture alignment: displaced Fracture type: closed Qualified Code(s): S62.325A - Displaced fracture of shaft of fourth metacarpal bone, left hand, initial encounter for closed fracture (2) Closed fracture of shaft of fifth metacarpal bone: QUALIFIERS: Encounter type: initial encounter Fracture alignment: displaced Laterality: left Qualified Code(s): S62.327A - Displaced fracture of shaft of fifth metacarpal bone, left hand, initial encounter for closed fracture PLAN: Plan Plan for screw fixation with Dr. Magana early next week Hold Warfarin, discussed with Dr. Nelson Wrist brace in the meantime with activity precautions. I saw and examined the patient today and discussed the fractures with the patient and his I talked to the patient extensively about the risks of surgery, including bleeding, infection, damage to surrounding structures, poor scaring, surgical site dehiscence and wound formation, need for wound care, need for repeat operations, failure to obtain the desired result, DVT/PE, and the risks of anesthesia including , including stroke (from low blood pressure/ischemia or clot). We talked about the risks of nonunion and malunion. We talked about the risks of hardware failure and infection. We talked about different treatment options including closed management v treatment in the OR with reduction and fixation. They are interested in trying to fix the bones as best as possible as the patient is very active (uses hands to lift/move). While there is no scissoring or angulation, the fractures are malaligned and unstable. Discussed possibility of need for bone grafting. The benefits and alternatives of this surgery were also discussed. All of their questions were answered, and they agreed to proceed with surgery. HPI Consult Data Date of Consult: 03/18/25 [facility] Medical History (Updated 03/17/25 @ 17:22 by BROOK Pérez) Closed fracture of shaft of fifth metacarpal bone Fracture of shaft of fourth metacarpal bone of left hand Closed displaced fracture of neck of left fifth metacarpal bone Closed displaced fracture of neck of left fourth metacarpal bone Prostatic enlargement Disequilibrium Tobacco dependence in remission COPD exacerbation Obesity (BMI 30.0-34.9) Laceration of left hand Laceration of elbow, right History of basal cell carcinoma CKD (chronic kidney disease) Diverticulosis Hyperlipidemia History of colonic polyps Diarrhea Anxiety Hypertension History of DVT (deep vein thrombosis) Home Medications Medication Instructions Recorded Last Taken Type atorvastatin 20 mg tablet (Lipitor) 20 mg PO DAILY cholesterol 02/19/18 03/02/25 History warfarin 5 mg tablet (Coumadin) 5 mg PO .tuwethfrsasu blood thinner 02/19/18 03/07/18 History warfarin 6 mg tablet 7.5 mg PO MO blood thinner 03/08/18 03/02/25 History albuterol sulfate 90 mcg/actuation 2 puff inhalation DAILY PRN 03/02/25 Unknown History aerosol inhaler shortness of breath or wheezing doxycycline hyclate 100 mg tablet 100 mg PO BID antibiotic 03/02/25 Unknown History sertraline 100 mg tablet 100 mg PO DAILY depression 03/02/25 03/02/25 History umeclidinium 62.5 mcg-vilanterol 1 inh inhalation DAILY respiratory 03/02/25 03/02/25 History 25 mcg/actuation powdr for inhalation (Anoro Ellipta) acetaminophen 500 mg tablet 1,000 mg PO Q8H pain 03/10/25 Unknown History doxazosin 1 mg tablet 1 mg PO QHS heart 03/10/25 Unknown History gabapentin 100 mg capsule 100 mg PO TID nerve pain 03/10/25 Unknown History ipratropium 20 mcg-albuterol 100 1 puff inhalation Q6H PRN wheezing 03/10/25 Unknown History mcg/actuation mist for inhalation lisinopril 10 mg tablet 10 mg PO QHS hypertension 03/10/25 Unknown History methocarbamol 500 mg tablet 500 mg PO Q8H muscle spasms 03/10/25 Unknown History oxycodone 5 mg tablet 5 mg PO Q6H PRN pain (scale score 03/10/25 Unknown History 6-10) polyethylene glycol 3350 17 17 g PO DAILY bowels 03/10/25 Unknown History gram/dose oral powder (Miralax) Allergy/AdvReac Type Severity Reaction Status Date / Time No Known Allergies Allergy Verified 03/02/25 15:57 Family History Mother CAD (coronary artery disease) Father CAD (coronary artery disease) CHF (congestive heart failure) Brother Cancer Stomach Myocardial infarction Sister Asthma Surgical History S/P Mohs surgery for basal cell carcinoma History of colonoscopy (~2017) history bilateral cataract surgery History of elbow surgery History of tonsillectomy Social History (Updated 03/11/25 @ 14:[address] Heidy Vital DO) household members: spouse housing: house number of children: 2 current occupational status: retired Smoking Status: Former smoker how long ago did patient quit smoking: More than 25 years ago. alcohol intake: current alcohol intake frequency: 0-2 drinks per day Alcohol type: other details: bhavin substance use type: does not use Lab / Micro Data 03/17/25 05:15 03/17/25 05:15
--- NOTE | 2025-03-17 17:28 | CASEMGMT ---
Social Work SW completed BIMS (04/22) and PHQ-2 () for MDS assessment. Roxanne Alex CELLO TEACHER RIM TECHNICIAN
[2025-03-17 21:51] VITALS: BP 139/81; PULSE 104
[2025-03-18 08:51] VITALS: BP 108/76; PULSE 84; RESP 16; TEMP 36.8; O2SAT 95
[2025-03-18] MEDS: Umeclidinium Brm/Vilanterol 62.5-25 mcg Inh 1 PUFF INHALATION (08:54)
[2025-03-18] MEDS: Cholecalciferol (VIT D3) 25 MCG TABLET (1,000 UNITS) PO (08:55)
[2025-03-18] MEDS: Senna/Docusate Sodium 1 Tablet 2 TABLET PO ×2 (08:57→22:22)
[2025-03-18] MEDS: Tuberculin,Purif.prot.deriv. 50 TU/ML Vial 0.1 ML ID (11:40)
[2025-03-18 22:00] VITALS: PULSE 64; RESP 18; O2SAT 96
[2025-03-18 22:42] VITALS: BP 137/87; PULSE 64
[2025-03-19 09:58] VITALS: BP 100/62; PULSE 73; RESP 17; TEMP 36.4; O2SAT 95
[2025-03-19] MEDS: Umeclidinium Brm/Vilanterol 62.5-25 mcg Inh 1 PUFF INHALATION (10:01)
[2025-03-19] MEDS: Senna/Docusate Sodium 1 Tablet 2 TABLET PO (10:02)
[2025-03-19] MEDS: Cholecalciferol (VIT D3) 25 MCG TABLET (1,000 UNITS) PO (10:02)
[2025-03-19 21:00] VITALS: BP 108/65; PULSE 84; RESP 16; O2SAT 94
[2025-03-20 09:18] VITALS: BP 111/75; PULSE 67; RESP 17; TEMP 36.6; O2SAT 94
[2025-03-20 09:19] LABS: Prothrombin Time (Protime)PT. 18.7 SECONDS (11.7-14.9)
[2025-03-20] MEDS: Umeclidinium Brm/Vilanterol 62.5-25 mcg Inh 1 PUFF INHALATION (09:20)
[2025-03-20] MEDS: Cholecalciferol (VIT D3) 25 MCG TABLET (1,000 UNITS) PO (09:21)
[2025-03-20 22:08] VITALS: BP 134/88; PULSE 111
[2025-03-20 22:09] VITALS: PULSE 81; O2SAT 94
--- NOTE | 2025-03-21 06:32 | NURSING ---
Written communication left for Dr. Nelson regarding pt request to have BID Senna changed to daily.
--- NOTE | 2025-03-21 08:06 | PCM.PN.SRG ---
Subjective Subjective Patient seen at TCU bedside. Plan for OR tomorrow. No concerns overnight. He has been wearing his brace and denies new pain, numbness, tingling, weakness. Objective Data Objective Data Vital Signs: Vital Signs Temp Pulse Resp BP Pulse Ox O2 Del Method O2 Flow Rate 97.9 F 81 17 134/88 H 94 Room Air 95 03/20/25 09:18 03/20/25 22:09 03/20/25 09:18 03/20/25 22:08 03/20/25 22:09 03/20/25 22:09 03/16/25 08:12 Oxygen Flow Rate (L/min) 95 Oxygen Delivery Method Room Air Weight: 209 lb 4 oz Body Mass Index (BMI) 30.0 Intake & Output: Intake and Output for Last 24 Hours 03/19/25 03/20/25 03/21/25 23:59 23:59 23:59 Intake Total 1280 / 1280 1200 / 1200 Balance 1280 / 1280 1200 / 1200 Lab / Micro Data Attestation: I reviewed the patient's lab results. 03/17/25 05:15 03/17/25 05:15 Labs: Laboratory Results - last 24 hr 03/20/25 08:15: PT 18.7 H, INR 1.5 Micro: Microbiology 03/20/25 06:12 Nasal Secretion SARS-CoV-2 Antigen (Rapid) - Final 03/13/25 06:28 Nasal Secretion SARS-CoV-2 Antigen (Rapid) - Final 03/11/25 05:35 Nasal Secretion SARS-CoV-2 Antigen (Rapid) - Final Physical Exam Narrative Afebrile/VSS. Sitting up in bed in no acute distress Left upper extremity: In wrist splint. Improved but ongoing 4th and 5th MCP swelling. Nontender to palpation, instability with 4th and 5th MCP manipulation Flexes and extends MCP, PIP, DIP. No scissorsing or angulation. Difficult with thumb pinky opposition Sensation intact to light touch [place], well perfused, cap refill <2 sec Assessment & Plan Assessment/Plan (1) Closed fracture of shaft of fifth metacarpal bone: QUALIFIERS: Encounter type: initial encounter Fracture alignment: displaced Laterality: left Qualified Code(s): S62.327A - Displaced fracture of shaft of fifth metacarpal bone, left hand, initial encounter for closed fracture (2) Fracture of shaft of fourth metacarpal bone of left hand: QUALIFIERS: Encounter type: initial encounter Fracture alignment: displaced Fracture type: closed Qualified Code(s): S62.325A - Displaced fracture of shaft of fourth metacarpal bone, left hand, initial encounter for closed fracture PLAN: Plan NPO after midnight tonight. OK to have sips of water with meds. Ancef for surgical prophylaxis to be placed tomorrow. Continue holding Warfarin Charges/Coding Visit Charges Inpatient E&M: 47191 Subs Hosp L2
--- NOTE | 2025-03-21 08:48 | MDS.RN ---
Information for the MDS was obtained from review of the clinical record, interview of resident, staff, and direct observation of resident’s care.
--- NOTE | 2025-03-21 09:06 | NURSING ---
Spoke with KIRSTEN, hand surgery planned for tomorrow around 0600. NPO at midnight. Ok to have gabapentin, ellipta, oxy, and albuterol (which can be sent w/ him if he may need while off unit). They will have respiratory complete EKG today and they will use most current labs in chart.
[2025-03-21 09:36] VITALS: BP 108/67; PULSE 69; RESP 17; TEMP 36.5; O2SAT 96
[2025-03-21] MEDS: Umeclidinium Brm/Vilanterol 62.5-25 mcg Inh 1 PUFF INHALATION (09:39)
[2025-03-21] MEDS: Cholecalciferol (VIT D3) 25 MCG TABLET (1,000 UNITS) PO (09:40)
[2025-03-21] MEDS: Senna/Docusate Sodium 1 Tablet 2 TABLET PO (09:42)
--- NOTE | 2025-03-21 17:01 | PN.TCU_ITS ---
Objective Data Objective Data Vital Signs: Vital Signs Temp Pulse Resp BP Pulse Ox O2 Del Method O2 Flow Rate 97.7 F L 69 17 108/67 96 Room Air 95 03/21/25 09:36 03/21/25 09:36 03/21/25 09:36 03/21/25 09:36 03/21/25 09:36 03/21/25 09:36 03/16/25 08:12 Oxygen Flow Rate (L/min) 95 Oxygen Delivery Method Room Air Weight: 94.914 kg Body Mass Index (BMI) 30.0 Intake & Output: Intake and Output for Last 24 Hours 03/19/25 03/20/25 03/21/25 23:59 23:59 23:59 Intake Total 1280 / 1280 1200 / 1200 720 / 720 Balance 1280 / 1280 1200 / 1200 720 / 720 Lab / Micro Data 03/17/25 05:15 03/17/25 05:15 Micro: Microbiology 03/20/25 06:12 Nasal Secretion SARS-CoV-2 Antigen (Rapid) - Final 03/13/25 06:28 Nasal Secretion SARS-CoV-2 Antigen (Rapid) - Final 03/11/25 05:35 Nasal Secretion SARS-CoV-2 Antigen (Rapid) - Final Assessment & Plan Assessment/Plan (1) Major depression: PLAN: Plan The following psychotropic medication was present on admission: Sertraline 100mg daily. Psychotropic medication therapy is indicated for a diagnosis of: Major Depression. Based on my clinical evaluation, continuation of the medication is necessary at this time. Gradual dose reduction plan (select one): ____ GDR will be attempted. Will monitor patient symptoms and behaviors in response to GDR. __x__ GRD contraindicated. Reason contraindicated: stable chronic skilled nursing use.
[2025-03-21 20:45] VITALS: PULSE 67; RESP 18; O2SAT 98
[2025-03-21 22:10] VITALS: BP 119/65; PULSE 62
[2025-03-22] MEDS: Umeclidinium Brm/Vilanterol 62.5-25 mcg Inh 1 PUFF INHALATION (05:03)
[2025-03-22 05:07] VITALS: BP 137/73; PULSE 69; RESP 16; TEMP 36.4; O2SAT 94; BMI 28.6
[2025-03-22 05:34] VITALS: PULSE 69; RESP 18; O2SAT 94
--- NOTE | 2025-03-22 05:59 | NURSING ---
Addendum entered by Shirley Khan 03/22/25 12:37: Pt returns to unit with OR staff ~1150. Original Note: Pt left unit at this time via bed accompanied by data quality consultant to preop.
[2025-03-22] MEDS: Cholecalciferol (VIT D3) 25 MCG TABLET (1,000 UNITS) PO (12:25)
[2025-03-22] MEDS: Senna/Docusate Sodium 1 Tablet 2 TABLET PO (12:45)
[2025-03-22 16:00] VITALS: BP 122/60; PULSE 106; RESP 16; TEMP 36.5; O2SAT 95
--- NOTE | 2025-03-22 19:57 | NURSING ---
Notified Dr. Nelson of pt complaint of pain at 10 to L hand despite PRN oxy given via secure text message. Spoke with Dr. Nelson via telephone. New order for morphine 10 mg PO q4H PRN for pain score 6-10. New order to discontinue scheduled oxy 5mg @ 0700 and 10 mg @2200. Clarified PRN oxy order with lora Oliva to keep order. Orders verified via readback.
[2025-03-22] MEDS: morphine (oral solution) 10MG/0.5ML Syringe 10 MG SL/PO (20:24)
[2025-03-22 22:22] VITALS: BP 108/52; PULSE 53
[2025-03-22] MEDS: 0.9% Saline Lock 10 ML Syringe IV (22:27)
[2025-03-23] MEDS: morphine (oral solution) 10MG/0.5ML Syringe 10 MG SL/PO (02:59)
[2025-03-23 03:56] VITALS: PULSE 59; O2SAT 93
[2025-03-23 04:44] VITALS: BP 101/52; PULSE 56; RESP 18; O2SAT 93
[2025-03-23 06:46] LABS: Prothrombin Time (Protime)PT. 15.9 SECONDS (11.7-14.9)
--- NOTE | 2025-03-23 08:13 | PCM.PN.SRG ---
Subjective Subjective Patient seen this morning in TCU bedside sitting up in bed with his arm elevated and eating breakfast. He states pain was under control last night. He reports expected postoperative swelling, denies numbness, weakness, tingling. Discussed pain medication regimen with nurse who states he does have morphine for breakthrough and his pain is controlled on oxycodone 10 mg. Objective Data Objective Data Vital Signs: Vital Signs Temp Pulse Resp BP Pulse Ox O2 Del Method O2 Flow Rate 97.7 F L 56 L 18 101/52 L 93 Room Air 95 03/22/25 16:00 03/23/25 04:44 03/23/25 04:44 03/23/25 04:44 03/23/25 04:44 03/23/25 04:44 03/16/25 08:12 Oxygen Flow Rate (L/min) 95 Oxygen Delivery Method Room Air Weight: 199 lb 11.2 oz Body Mass Index (BMI) 28.6 Intake & Output: Intake and Output for Last 24 Hours 03/21/25 03/22/25 03/23/25 23:59 23:59 23:59 Intake Total 1200 / 1200 360 / 360 Balance 1200 / 1200 360 / 360 Lab / Micro Data Attestation: I reviewed the patient's lab results. 03/17/25 05:15 03/17/25 05:15 Labs: Laboratory Results - last 24 hr 03/23/25 05:30: PT 15.9 H, INR 1.2 Micro: Microbiology 03/20/25 06:12 Nasal Secretion SARS-CoV-2 Antigen (Rapid) - Final 03/13/25 06:28 Nasal Secretion SARS-CoV-2 Antigen (Rapid) - Final 03/11/25 05:35 Nasal Secretion SARS-CoV-2 Antigen (Rapid) - Final Physical Exam Narrative Afebrile/VSS. Sitting up in bed eating breakfast in no acute distress Left upper extremity: Diffuse swelling without passive or expressible drainage. No palpable collection. No erythema or induration. Flexes and extends MCPs, PIP, DIP. No mallet or jersey finger, hyperextends. Collateral ligaments intact. Sensation intact to light touch Digits are well-perfused, pink cap refill less than 2 seconds. Assessment & Plan Assessment/Plan (1) Closed fracture of shaft of fifth metacarpal bone: QUALIFIERS: Encounter type: initial encounter Fracture alignment: displaced Laterality: left Qualified Code(s): S62.327A - Displaced fracture of shaft of fifth metacarpal bone, left hand, initial encounter for closed fracture (2) Fracture of shaft of fourth metacarpal bone of left hand: QUALIFIERS: Encounter type: initial encounter Fracture alignment: displaced Fracture type: closed Qualified Code(s): S62.325A - Displaced fracture of shaft of fourth metacarpal bone, left hand, initial encounter for closed fracture PLAN: Plan Assessment: POD 1 ORIF of 4th and 5th metacarpal Plan: Pain control: Stopped Morphine and added oral Dilaudid for breakthrough pain. Continue scheduled Tylenol and Oxycodone PRN Incision care: Xeroform over the incision, ABD dressing and yanna wrap. Activity: Elevate at all times, encourage ROM and no heavy lifting OK to start Warfarin. 7 day course of Doxycycline for surgical prophylaxis OK to dispo plan from plastics standpoint. We will follow up with him in clinic Thursday. We will continue to follow if he's still here.
[2025-03-23 09:49] VITALS: BP 73/40; PULSE 53; RESP 18; TEMP 36.4; O2SAT 93
--- NOTE | 2025-03-23 09:50 | NURSING ---
Nurse entered room to obtain vital signs. Vitals machine gave readings of 64/32, 73/45. Manual blood pressure taken with reading of 62/42. Dr. Nelson was paged and gave new order for bolus 1000 cc Normal Saline. IV in right AC used.
[2025-03-23] MEDS: Senna/Docusate Sodium 1 Tablet 2 TABLET PO (10:03)
[2025-03-23] MEDS: Umeclidinium Brm/Vilanterol 62.5-25 mcg Inh 1 PUFF INHALATION (10:03)
[2025-03-23] MEDS: Cholecalciferol (VIT D3) 25 MCG TABLET (1,000 UNITS) PO (10:03)
[2025-03-23] MEDS: 0.9% Saline Lock 10 ML Syringe IV (11:07)
[2025-03-23] MEDS: 0.9% Normal Saline (1000mL) 1,000 ML 999 ML IV (11:11)
--- NOTE | 2025-03-23 11:20 | NURSING ---
Bolus started. Pt resting in bed at this time with call light in reach and at beside.
--- NOTE | 2025-03-23 12:20 | NURSING ---
Bolus completed. Pt has no voiced complaints or sings of discomfort.
--- NOTE | 2025-03-23 13:55 | NURSING ---
Blood pressure recheck of .
[2025-03-23] MEDS: Warfarin (PBKC) 5 MG Tablet PO (18:45)
[2025-03-23 21:30] VITALS: BP 126/79; PULSE 87; RESP 16
[2025-03-24] MEDS: 0.9% Saline Lock 10 ML Syringe IV ×3 (05:56→21:59)
--- NOTE | 2025-03-24 07:38 | PN.SURG_ITS ---
Subjective Subjective Patient seen in TCU. He's sitting up watching TV this morning. States his hand a little more swollen today but no significant pain or drainage noted. He has since been restarted on Warfarin. He had an episode of low BP and received 1L saline bolus and BP has since returned back to normal. He does not endorse to me feeling symptomatic from it. He denies new numbness, weakness, tingling. Objective Data Objective Data Vital Signs: Vital Signs Temp Pulse Resp BP Pulse Ox O2 Del Method O2 Flow Rate 97.6 F L 87 16 126/79 H 93 Room Air 95 03/23/25 09:49 03/23/25 21:30 03/23/25 21:30 03/23/25 21:30 03/23/25 09:49 03/23/25 09:49 03/16/25 08:12 Oxygen Flow Rate (L/min) 95 Oxygen Delivery Method Room Air Weight: 199 lb 11.2 oz Body Mass Index (BMI) 28.6 Intake & Output: Intake and Output for Last 24 Hours 03/22/25 03/23/25 03/24/25 23:59 23:59 23:59 Intake Total 360 / 360 2079 Balance 360 / 360 2079 Lab / Micro Data Attestation: I reviewed the patient's lab results. 03/17/25 05:15 03/17/25 05:15 Micro: Microbiology 03/20/25 06:12 Nasal Secretion SARS-CoV-2 Antigen (Rapid) - Final 03/13/25 06:28 Nasal Secretion SARS-CoV-2 Antigen (Rapid) - Final 03/11/25 05:35 Nasal Secretion SARS-CoV-2 Antigen (Rapid) - Final Physical Exam Narrative Afebrile/VSS. Sitting up in be, in no acute distress Left upper extremity: Diffuse swelling of hand and digits. No incisional passive or expressible drainage. No palpable collection. No erythema or induration. Ecchymosis throughout hand more notable today without hematoma collection. Flexes and extends MCPs, PIP, DIP. No mallet or jersey finger, hyperextends. Collateral ligaments intact. Sensation intact to light touch Digits are well-perfused, pink cap refill less than 2 seconds. Arm elevation pillow in room but not being used, arm was only propped on 1 pillow. Pillow applied and encouraged elevating it all times Assessment & Plan Assessment/Plan (1) Closed fracture of shaft of fifth metacarpal bone: QUALIFIERS: Encounter type: initial encounter Fracture alignment: displaced Laterality: left Qualified Code(s): S62.327A - Displaced fracture of shaft of fifth metacarpal bone, left hand, initial encounter for closed fracture (2) Fracture of shaft of fourth metacarpal bone of left hand: QUALIFIERS: Encounter type: initial encounter Fracture type: c losed Fracture alignment: displaced Qualified Code(s): S62.325A - Displaced fracture of shaft of fourth metacarpal bone, left hand, initial encounter for closed fracture PLAN: Plan Assessment: POD 2 ORIF of 4th and 5th metacarpal Plan: Pain control: per MAR Incision care: Xeroform over the incision, ABD dressing and yanna wrap. Activity: Elevate at all times, encourage ROM and no heavy lifting. Doing well since restarting Warfarin without hematoma or significant bleeding. 7 day course of Doxycycline for surgical prophylaxis (2 of 7) OK to dispo plan from plastics standpoint. We will continue to follow if he's still here. Charges/Coding Procedures Integumentary 111xxx-113xx: [id number] Global Visit
[2025-03-24 08:09] LABS: Hematocrit 35.6 % (40-54); Hemoglobin 11.1 g/dL (13.0-16.5); Immature Granulocytes Count 0.030 X10^3/uL (0.0-0.0); Mean Corp Hgb Conc 31.2 g/dL (32-36); Mean Corpuscular Volume 100.0 fL (80-94); Mean Platelet Vol. 10.1 fl (6.2-12.0); NRBC Flagged by Analyzer 0 % (0-5); Platelet Count 220 K/mm3 (150-450); RBC Distribution Width CV 13.6 % (11.6-14.6); RBC Distribution Width SD 50.3 fl (35.1-43.9); Red Blood Count 3.56 M/mm3 (4.6-6.2); White Blood Count 7.2 K/mm3 (4.4-11.0)
[2025-03-24 08:27] VITALS: BP 108/78; PULSE 108; RESP 18; TEMP 36.4; O2SAT 94
[2025-03-24] MEDS: Umeclidinium Brm/Vilanterol 62.5-25 mcg Inh 1 PUFF INHALATION (08:35)
[2025-03-24] MEDS: Polyethylene Glycol 3350 17 GM PACKET PO (08:36)
[2025-03-24] MEDS: Senna/Docusate Sodium 1 Tablet 2 TABLET PO (08:36)
[2025-03-24] MEDS: Cholecalciferol (VIT D3) 25 MCG TABLET (1,000 UNITS) PO (08:37)
[2025-03-24 08:41] LABS: Anion Gap 10 (5-15); BUN 47 mg/dL (4-19); BUN/Creat Ratio 32.8 RATIO (10-20); Calcium,Total 9.0 mg/dL (7.6-11.0); Carbon Dioxide 22.1 mmol/L (21.0-32.0); Chloride 102 mmol/L (98-108); Estimated Creatinine Clearance 44.62 ml/min (50-250); Glucose 109 mg/dL (70-99); Potassium 4.7 mmol/L (3.3-5.1)
[2025-03-24 10:00] VITALS: PULSE 104; O2SAT 94
--- NOTE | 2025-03-24 15:36 | NURSING ---
pt tolerated dressing change well
[2025-03-24] MEDS: Warfarin (PBKC) 5 MG Tablet PO (18:22)
[2025-03-24 21:57] VITALS: BP 116/73; PULSE 63
[2025-03-25] MEDS: Umeclidinium Brm/Vilanterol 62.5-25 mcg Inh 1 PUFF INHALATION (10:13)
[2025-03-25] MEDS: Cholecalciferol (VIT D3) 25 MCG TABLET (1,000 UNITS) PO (10:13)
[2025-03-25] MEDS: Senna/Docusate Sodium 1 Tablet 2 TABLET PO (10:16)
[2025-03-25 15:40] VITALS: BP 135/54; PULSE 58; RESP 16; TEMP 37.1; O2SAT 95
[2025-03-25] MEDS: Warfarin (PBKC) 5 MG Tablet PO (17:53)
[2025-03-25 22:43] VITALS: BP 156/80; PULSE 94
[2025-03-25] MEDS: 0.9% Saline Lock 10 ML Syringe IV (22:46)
[2025-03-26] MEDS: Cholecalciferol (VIT D3) 25 MCG TABLET (1,000 UNITS) PO (09:47)
[2025-03-26] MEDS: Umeclidinium Brm/Vilanterol 62.5-25 mcg Inh 1 PUFF INHALATION (09:48)
[2025-03-26 13:40] VITALS: BP 128/83; PULSE 95; RESP 16; TEMP 36.7; O2SAT 94
[2025-03-26] MEDS: Warfarin (PBKC) 5 MG Tablet PO (16:29)
[2025-03-26 20:00] VITALS: PULSE 74; O2SAT 93
[2025-03-26 21:06] VITALS: BP 138/80; PULSE 60
[2025-03-26] MEDS: 0.9% Saline Lock 10 ML Syringe IV (21:11)
[2025-03-27 06:22] VITALS: PULSE 70; O2SAT 93
[2025-03-27 08:19] LABS: Prothrombin Time (Protime)PT. 17.2 SECONDS (11.7-14.9)
[2025-03-27 08:43] VITALS: BP 124/78; PULSE 98; RESP 18; TEMP 36.9; O2SAT 96
[2025-03-27] MEDS: Umeclidinium Brm/Vilanterol 62.5-25 mcg Inh 1 PUFF INHALATION ×2 (08:45)
[2025-03-27] MEDS: Cholecalciferol (VIT D3) 25 MCG TABLET (1,000 UNITS) PO (08:46)
[2025-03-27] MEDS: 0.9% Saline Lock 10 ML Syringe IV ×2 (08:46→21:17)
[2025-03-27] MEDS: WARFARIN 7.5 MG PO (17:04)
[2025-03-27 21:23] VITALS: BP 120/90; PULSE 92; RESP 16
[2025-03-27 22:04] VITALS: BP 152/80; PULSE 67; RESP 16
--- NOTE | 2025-03-28 05:34 | NURSING ---
c/o chronic "loose stools for the last 5 years", reports being prescribed "Imodium at home". Patient requesting imodium PRN for loose stools. Written communication left for Dr. Nelson review this AM.
[2025-03-28 08:13] VITALS: BP 128/95; PULSE 60; RESP 18; TEMP 36.4; O2SAT 95
[2025-03-28] MEDS: Cholecalciferol (VIT D3) 25 MCG TABLET (1,000 UNITS) PO (08:15)
--- NOTE | 2025-03-28 08:30 | NURSING ---
Addendum entered by Michelle Moreno 03/28/25 13:29: Xray results back. TC to who ordered a CT abdomen/ pelvis with contrast to rule out blockage. D/C new order for PRN Imodium. Original Note: Pt as been having loose stools. notified. Xray of abdomen and pelvis ordered.
--- NOTE | 2025-03-28 08:55 | RAD_ITS ---
PROCEDURE: ABDOMEN SINGLE VIEW 03/28/2025 REASON FOR EXAM: LOOSE STOOLS. TECHNIQUE: Procedure Code: RADABD Modality: DX Procedure: ABDOMEN SINGLE VIEW COMPARISON: Reviewed FINDINGS: Dilated loop of small bowel in the left upper hemiabdomen measuring up to 5 cm. Obstruction versus ileus must be excluded. Distal bowel appears decompressed however. No free air. RAD/Abdomen Single View IMPRESSION: As above Reading [facility]
[2025-03-28 09:00] VITALS: BMI 28.5
--- NOTE | 2025-03-28 12:02 | PN.SURG_ITS ---
Subjective Subjective Patient seen in TCU. He's sitting up in bed holding his ipad up with his left hand. States his hand less swollen. Denies drainage, fever, chills, weakness, numbness, tingling. He reports decreased appetite and haven't eating too much. He is tolerating restarting Warfarin and continues to work with therapies. Objective Data Objective Data Vital Signs: Vital Signs Temp Pulse Resp BP Pulse Ox O2 Del Method O2 Flow Rate 97.6 F L 60 18 128/95 H 95 Room Air 95 03/28/25 08:13 03/28/25 08:13 03/28/25 08:13 03/28/25 08:13 03/28/25 08:13 03/28/25 08:13 03/16/25 08:12 Oxygen Flow Rate (L/min) 95 Oxygen Delivery Method Room Air Weight: 199 lb 11.2 oz Body Mass Index (BMI) 28.6 Intake & Output: Intake and Output for Last 24 Hours 03/26/25 03/27/25 03/28/25 23:59 23:59 23:59 Intake Total 720 / 720 720 / 720 280 / 280 Output Total 900 / 900 Balance 720 / 720 -180 / -180 280 / 280 Lab / Micro Data Attestation: I reviewed the patient's lab results. 03/24/25 07:15 03/24/25 07:15 Micro: Microbiology 03/27/25 05:15 Nasal Secretion SARS-CoV-2 Antigen (Rapid) - Final 03/20/25 06:12 Nasal Secretion SARS-CoV-2 Antigen (Rapid) - Final 03/13/25 06:28 Nasal Secretion SARS-CoV-2 Antigen (Rapid) - Final 03/11/25 05:35 Nasal Secretion SARS-CoV-2 Antigen (Rapid) - Final Radiography Diagnostic Testing: Radiology Impression KUB X-Ray 03/28/25 08:55 IMPRESSION: As above Reading [facility] Physical Exam Narrative Afebrile/VSS. Sitting up in be, in no acute distress Left upper extremity: Expected swelling of dorsal hand. No incisional passive or expressible drainage. No palpable collection. No erythema or induration. No hematoma collection. Flexes and extends MCPs, PIP, DIP. No mallet or jersey finger, hyperextends. Collateral ligaments intact. Sensation intact to light touch Digits are well-perfused, pink cap refill less than 2 seconds. Assessment & Plan Assessment/Plan (1) Closed fracture of shaft of fifth metacarpal bone: QUALIFIERS: Encounter type: initial encounter Fracture alignment: displaced Laterality: left Qualified Code(s): S62.327A - Displaced fracture of shaft of fifth metacarpal bone, left hand, initial encounter for closed fracture (2) Fracture of shaft of fourth metacarpal bone of left hand: QUALIFIERS: Encounter type: initial encounter Fracture type: c losed Fracture alignment: displaced Qualified Code(s): S62.325A - Displaced fracture of shaft of fourth metacarpal bone, left hand, initial encounter for closed fracture PLAN: Plan Assessment: POD 6 ORIF of 4th and 5th metacarpal Plan: Pain control: per AUG. Kidney function changes: Continue to monitor and recommend trending. Incision care: Xeroform over the incision, gauze dressing and yanna wrap. Activity: Elevate at all times, encourage ROM and no heavy lifting. Doing well since restarting Warfarin without hematoma or significant bleeding. 7 day course of Doxycycline for surgical prophylaxis (6 of 7). Will dc tomorrow. OK to dispo plan from plastics standpoint. We will continue to follow if he's still here. Charges/Coding Procedures Integumentary 111xxx-113xx: [id number] Global Visit
[2025-03-28] MEDS: Umeclidinium Brm/Vilanterol 62.5-25 mcg Inh 1 PUFF INHALATION (13:07)
[2025-03-28] MEDS: 0.9% Saline Lock 10 ML Syringe IV (13:10)
--- NOTE | 2025-03-28 16:01 | NURSING ---
Addendum entered by Michelle Moreno 03/28/25 16:11: Returned to floor from scan. Original Note: Patient off floor for CT scan.
--- NOTE | 2025-03-28 16:50 | CASEMGMT ---
Social Work Insurance issued LCD 03/30, DC 03/31. SW phoned the to update on DC date and explained appeal rights. is uncertain on pt's readiness to DC home or her ability to properly care for him. BREE confirmed is scheduled with OT ADL tomorrow and has been present for PT sessions. has been knowledgeable and involved with pt's care during stay and preparation for DC with DME, etc. conflicted on whether to appeal or not. SW suggested waiting until after the ADL tomorrow morning and discuss with pt, then notify this worker. Reminded appeal must be filed by noon. expressed understanding and appreciative of suggestion. to speak with pt this evening during visit. SW inquired about needs at home - HHC vs OP therapy. to discuss with pt their preference. SW inquired about DME - has purchased several items, but pt does need a platform walker and likely a BSC. SW will assist with coordinating. Plan: DC home with 03/31 - needs and appeal decision MAUREEN Alex LASER BEAM TRIM OPERATOR SHELLFISH HARVESTER
[2025-03-28] MEDS: Warfarin (PBKC) 6 MG Tablet PO (17:21)
[2025-03-29 10:00] VITALS: PULSE 75; O2SAT 95
[2025-03-29 10:51] VITALS: BP 128/79; PULSE 68; RESP 17; TEMP 37.1; O2SAT 96
[2025-03-29] MEDS: Umeclidinium Brm/Vilanterol 62.5-25 mcg Inh 1 PUFF INHALATION (10:54)
[2025-03-29] MEDS: Cholecalciferol (VIT D3) 25 MCG TABLET (1,000 UNITS) PO (10:56)
--- NOTE | 2025-03-29 11:50 | NURSING ---
dressing change completed after pt ADLs per order, tolerated well.
--- NOTE | 2025-03-29 11:53 | CASEMGMT ---
Addendum entered by Roxanne Alex 03/29/25 15:42: [facility] but PT will assess for OT needs. SW updated pt and in room. Updated order. - Plan: [facility] PT/ST/SN Addendum entered by Roxanne Alex 03/29/25 15:00: SW received preferences from pt/. [facility] is first choice. SW phoned referral. Original Note: Social Work SW received VM from stating pt and are comfortable with DC home 03/31 and will not appeal. SW returned call to and discussed specifics for DC plan. HHC vs OP therapy. prefers HHC d/t WBS. SW offered list of skilled HHC agencies within geographical area, INN with insurance, that include quality and resource data via [employer] guide. accepted and requested printed list be left in pt's room. /pt will review and notify this worker of preferences. SW educated HHC agency will contact pt for SOC date date, but typically 2-3 days after DC, pending PCP signing orders. SW confirmed pt's need for platform FWW at DC, which will be delivered to the pt's room prior to DC. will transport. appreciative. - BREE sent referral to [facility] via [employer]. Plan: DC home with 03/31, HHC PT/OT/ST/SN, platform FWW Roxanne Alex PARACHUTE SUPERVISOR MULTIPLE CUT OFF SAW OPERATOR
[2025-03-29] MEDS: Warfarin (PBKC) 6 MG Tablet PO (19:02)
--- NOTE | 2025-03-29 19:15 | PCM.DC.SUM ---
Providers Date of Admission: 03/10/25 Primary Care Physician: Dr. Tien Fernandez MD Reason For Visit: R PUBIC/ACETABULUM/ILIUM FX/ L HAND FRACTURE/FALL Diagnosis Discharge Diagnosis (1) Closed fracture of shaft of fifth metacarpal bone: Status: Acute Code(s): S62.328A - Displaced fracture of shaft of other metacarpal bone, initial encounter for closed fracture Qualifiers: Encounter type: initial encounter Fracture alignment: displaced Laterality: left Qualified Code(s): S62.327A - Displaced fracture of shaft of fifth metacarpal bone, left hand, initial encounter for closed fracture (2) Fracture of shaft of fourth metacarpal bone of left hand: Status: Acute Code(s): S62.325A - Displaced fracture of shaft of fourth metacarpal bone, left hand, initial encounter for closed fracture Qualifiers: Encounter type: initial encounter Fracture type: closed Fracture alignment: displaced Qualified Code(s): S62.325A - Displaced fracture of shaft of fourth metacarpal bone, left hand, initial encounter for closed fracture Plan The following psychotropic medication was present on admission: Sertraline 100mg daily. Psychotropic medication therapy is indicated for a diagnosis of: Major Depression. Based on my clinical evaluation, continuation of the medication is necessary at this time. Gradual dose reduction plan (select one): ____ GDR will be attempted. Will monitor patient symptoms and behaviors in response to GDR. __x__ GRD contraindicated. Reason contraindicated: stable chronic shelter use. Medications at Discharge Home Medications atorvastatin 20 mg tablet (Lipitor) 20 mg PO DAILY cholesterol 02/19/18 warfarin 5 mg tablet (Coumadin) 5 mg PO .tuwethfrsu blood thinner 02/19/18 warfarin 6 mg tablet 7.5 mg PO MO blood thinner 03/08/18 sertraline 100 mg tablet 100 mg PO DAILY depression 03/02/25 umeclidinium 62.5 mcg-vilanterol 25 mcg/actuation powdr for inhalation (Anoro Ellipta) 1 inh inhalation DAILY respiratory 03/02/25 doxazosin 1 mg tablet 1 mg PO QHS heart 03/10/25 ipratropium 20 mcg-albuterol 100 mcg/actuation mist for inhalation 1 puff inhalation Q6H PRN wheezing 03/10/25 lisinopril 10 mg tablet 10 mg PO QHS hypertension 03/10/25 cholecalciferol (vitamin D3) 25 mcg (1,000 unit) capsule (Vitamin D3) 1,000 unit PO DAILY 03/22/25 acetaminophen 500 mg tablet 1,000 mg (2 x 500 mg) PO Q8 #0 tabs 03/29/25 gabapentin 100 mg capsule 100 mg PO TID 30 days #90 caps 03/29/25 loperamide 2 mg capsule 2 mg PO DAILY #0 caps 03/29/25 Hospital Course Operations - (See below.) Procedures None Summary of Care Provided Minutes Spent on Discharge: 35 Hospital Course: 84 year old male with below past medical history hospitalized for fall, multiple fractures, pelvic hematoma, complicated by hypotension 2/2 acute blood loss anemia, admitted to TCU with debility, here for rehabilitation, strengthening, prior to discharge home with . 03/22/2025 Dr. Magana: Pre-Operative Diagnosis: Left ring and small finger metacarpal fractures Post-Operative Diagnosis: Same Surgery/Procedure Performed: 1) open reduction internal fixation left ring finger metacarpal fracture 2) open reduction internal fixation of the left small finger metacarpal fracture Discharge home with 03/31/2025, [facility] PT/ST/SN, platform FWW. Platform FWW: Patient is unsafe to use a cane and requires a walker for ambulation in the home and the community. Physical Exam Const alert General Appearance: cooperative HEENT normocephalic Eyes PERRL and EOMs intact bilaterally Neck supple, no JVD and no carotid bruits Resp normal respiratory effort, normal air movement and clear to auscultation bilaterally Cardio regular rate and regular rhythm GI normal to inspection, nondistended, normoactive bowel sounds, non-tender and non-distended Extremity normal capillary refill Extremity Narrative: Left hand dressed. General Extremity: Negative for edema Skin no rashes or lesions noted General Skin Exam: no breakdown Psych affect normal Appearance: appropriate Weight / BMI Weight Weight: 90.446 kg Body Mass Index (BMI) 28.5 ABG / Lab / Microbiology Data 03/24/25 07:15 03/24/25 07:15 Microbiology: Microbiology 03/27/25 05:15 Nasal Secretion SARS-CoV-2 Antigen (Rapid) - Final 03/20/25 06:12 Nasal Secretion SARS-CoV-2 Antigen (Rapid) - Final 03/13/25 06:28 Nasal Secretion SARS-CoV-2 Antigen (Rapid) - Final 03/11/25 05:35 Nasal Secretion SARS-CoV-2 Antigen (Rapid) - Final D/C Instructions Discharge Activity: Return to Normal Activity, May Shower and Use Walker Weight Bearing Status: Toe touch weight bearing (Right lower extremity.) and No weight bearing (Left upper extremity.) Call your doctor if you observe: Fever of 101 or Higher, Inability to urinate, Inability to have a bowel movement, Shortness of breath, Dizziness, Fainting spells, Swelling in the ankles, Chest pain and Uncontrolled pain DC O2, CPAP, BIPAP Needs Home O2 Discharge instructions: No Additional Instructions: Discharge home with 03/31/2025, [facility] PT/ST/SN, platform FWW. Platform FWW: Patient is unsafe to use a cane and requires a walker for ambulation in the home and the community. Please Follow Up With: JAMSHID Hilario Meaningful Use Info Meaningful Use Meaningful Use Diagnoses (Choose all that apply): None applicable Discharge Plan Admission Admit Date/Time: 03/10/25 15:20 Primary Reason for Your Visit: Debility. Attending Provider: Heidy Vital Primary Care Provider: Tien Fernandez Instructions Additional Instructions / Restrictions: Discharge home with 03/31/2025, [facility] PT/ST/SN, platform FWW. Platform FWW: Patient is unsafe to use a cane and requires a walker for ambulation in the home and the community. Discharge Orders/Prescriptions Prescriptions: New loperamide 2 mg Capsule 2 mg PO DAILY Qty: 0 0RF acetaminophen 500 mg Tablet 1,000 mg PO Q8 Qty: 0 0RF gabapentin 100 mg Capsule 100 mg PO TID 30 Days Qty: 90 0RF Continued warfarin [Coumadin] 5 mg tablet 5 mg PO . Patient Comments: 7.5 mg Thursday-ON HOLD FOR SURGERY atorvastatin [Lipitor] 20 mg tablet 20 mg PO DAILY warfarin 6 MG tablet 7.5 mg PO MO Patient Comments: ON HOLD FOR SURGERY sertraline 100 mg tablet 100 mg PO DAILY umeclidinium-vilanterol [Anoro Ellipta] 62.5-25 mcg/actuation blister with device 1 inh INHALATION DAILY Patient Comments: 1 puff cholecalciferol (vitamin D3) [Vitamin D3] 25 mcg (1,000 unit) capsule 1,000 unit PO DAILY doxazosin 1 mg tablet 1 mg PO QHS ipratropium-albuterol 20-100 mcg/actuation mist 1 puff inhalation Q6H PRN (Reason: wheezing) lisinopril 10 MG tablet 10 mg PO QHS Discontinued doxycycline hyclate 100 mg tablet 100 mg PO BID Patient Comments: no currently taking albuterol sulfate 90 mcg/actuation HFA aerosol inhaler 2 puff inhalation DAILY PRN (Reason: shortness of breath or wheezing) Patient Comments: has but only uses prn magnesium citrate 100 mg capsule 300 mg PO DAILY PRN (Reason: constipation) gabapentin 100 mg capsule 100 mg PO TID acetaminophen 500 mg tablet 1,000 mg PO Q8H oxycodone 5 mg tablet 5 mg PO Q6H PRN (Reason: pain (scale score 6-10)) polyethylene glycol 3350 [Miralax] 17 gram/dose powder 17 g PO DAILY Referrals / Follow Up: Domo Gee MD [Med Staff - Active Staff, Orthopedics] Referral Note: Follow-up Tien Fernandez MD [Primary Care Provider, Medical] - Within 1 Week Referral Note: Transition Care Management appointment. Disposition Disposition (needs filled in before D/C Order can be placed): Home Health Service
[2025-03-29 20:58] VITALS: BP 114/86; PULSE 98; O2SAT 93
--- NOTE | 2025-03-30 01:39 | NURSING ---
All care provided in room due to contact precautions.
[2025-03-30 06:46] VITALS: PULSE 66; O2SAT 96
[2025-03-30 08:01] LABS: Prothrombin Time (Protime)PT. 20.8 SECONDS (11.7-14.9)
--- NOTE | 2025-03-30 09:22 | NURSING ---
In contact precautions pending C-diff testing. Today had large formed BM. Contact precautions and order for stool sample DC'd at this time.
--- NOTE | 2025-03-30 09:45 | CASEMGMT ---
Social Work SW informed pt that [facility] can accept and will contact for SOC date confirmation. SW completed BIMS (04/22) and PHQ-2 () for MDS assessment. Roxanne Alex COUNTERPERSON DIRECTOR ASSET
[2025-03-30] MEDS: Umeclidinium Brm/Vilanterol 62.5-25 mcg Inh 1 PUFF INHALATION (09:47)
[2025-03-30] MEDS: Senna/Docusate Sodium 1 Tablet 2 TABLET PO (09:49)
[2025-03-30] MEDS: Cholecalciferol (VIT D3) 25 MCG TABLET (1,000 UNITS) PO (09:53)
[2025-03-30 10:57] VITALS: BP 96/59; PULSE 62; RESP 16; TEMP 36.8; O2SAT 97
[2025-03-30] MEDS: Warfarin (PBKC) 6 MG Tablet PO (17:30)
[2025-03-30 23:09] VITALS: BP 113/79; PULSE 94
[2025-03-31 02:53] VITALS: PULSE 64; O2SAT 95
[2025-03-31 06:11] LABS: Hematocrit 34.5 % (40-54); Hemoglobin 11.5 g/dL (13.0-16.5); Immature Granulocytes Count 0.020 X10^3/uL (0.0-0.0); Mean Corp Hgb Conc 33.3 g/dL (32-36); Mean Corpuscular Volume 93.5 fL (80-94); Mean Platelet Vol. 10.3 fl (6.2-12.0); NRBC Flagged by Analyzer 0 % (0-5); Platelet Count 157 K/mm3 (150-450); RBC Distribution Width CV 13.2 % (11.6-14.6); RBC Distribution Width SD 45.1 fl (35.1-43.9); Red Blood Count 3.69 M/mm3 (4.6-6.2); White Blood Count 5.5 K/mm3 (4.4-11.0)
[2025-03-31 06:56] LABS: Anion Gap 9 (5-15); BUN 25 mg/dL (4-19); BUN/Creat Ratio 24.5 RATIO (10-20); Calcium,Total 9.1 mg/dL (7.6-11.0); Carbon Dioxide 23.6 mmol/L (21.0-32.0); Chloride 102 mmol/L (98-108); Estimated Creatinine Clearance 61.47 ml/min (50-250); Glucose 103 mg/dL (70-99); Potassium 4.6 mmol/L (3.3-5.1)
[2025-03-31 08:56] VITALS: BP 96/73; PULSE 69; RESP 17; TEMP 36.7; O2SAT 97
[2025-03-31] MEDS: Umeclidinium Brm/Vilanterol 62.5-25 mcg Inh 1 PUFF INHALATION (08:58)
[2025-03-31] MEDS: Cholecalciferol (VIT D3) 25 MCG TABLET (1,000 UNITS) PO (08:59)
--- NOTE | 2025-03-31 10:44 | PN.SURG_ITS ---
Subjective Subjective Patient seen in TCU. He's sitting up in bed eating breakfast. States his hand continues to feel less swollen and has some tightness from sutures on his hand. Denies drainage, fever, chills, weakness, numbness, tingling. He is pending discharge home with spouse today. Objective Data Objective Data Vital Signs: Vital Signs Temp Pulse Resp BP Pulse Ox O2 Del Method O2 Flow Rate 98.0 F 69 17 96/73 97 Room Air 95 03/31/25 08:56 03/31/25 08:56 03/31/25 08:56 03/31/25 08:56 03/31/25 08:56 03/31/25 08:56 03/16/25 08:12 Oxygen Flow Rate (L/min) 95 Oxygen Delivery Method Room Air Weight: 199 lb 6.4 oz Body Mass Index (BMI) 28.5 Intake & Output: Intake and Output for Last 24 Hours 03/29/25 03/30/25 03/31/25 23:59 23:59 23:59 Intake Total 840 / 840 1040 / 1040 Output Total 350 / 350 250 / 250 Balance 840 / 840 690 / 690 -250 / -250 Lab / Micro Data 03/31/25 05:28 03/31/25 05:28 Labs: Laboratory Results - last 24 hr 03/31/25 05:28: WBC 5.5, RBC 3.69 L, Hgb 11.5 L, Hct 34.5 L, MCV 93.5, MCH 31.2, MCHC 33.3, RDW Std Deviation 45.1 H, RDW Coeff of Pierre 13.2, Plt Count 157, MPV 10.3, Immature Gran % (Auto) 0.400, Neut % (Auto) 64.9, Lymph % (Auto) 19.3, M nasima % (Auto) 12.5 H, Eos % (Auto) 2.5, Baso % (Auto) 0.4, Absolute Neuts (auto) 3.6, Absolute Lymphs (auto) 1.07, Nucleated RBC % 0, Sodium 135, Potassium 4.6, Chloride 102, Carbon Dioxide 23.6, Anion Gap 9, BUN 25 H, Creatinine 1.03, Estim Creat Clear Calc 61.47, Est GFR (MDRD) Non-Af 72, BUN/Creatinine Ratio 24.5 H, G lucose 103 H, Calcium 9.1 Micro: Microbiology 03/27/25 05:15 Nasal Secretion SARS-CoV-2 Antigen (Rapid) - Final 03/20/25 06:12 Nasal Secretion SARS-CoV-2 Antigen (Rapid) - Final 03/13/25 06:28 Nasal Secretion SARS-CoV-2 Antigen (Rapid) - Final 03/11/25 05:35 Nasal Secretion SARS-CoV-2 Antigen (Rapid) - Final Radiography Diagnostic Testing: Radiology Impression KUB X-Ray 03/28/25 08:55 IMPRESSION: As above Reading Location: [facility] Physical Exam Narrative Afebrile/VSS. Sitting up in be, in no acute distress Left upper extremity: Improved swelling of dorsal hand. No incisional passive or expressible drainage. No palpable collection. No erythema or induration. No hematoma collection. Nontender to palpation of MCPs. No instability. Flexes and extends MCPs, PIP, DIP. No mallet or jersey finger, hyperextends. Collateral ligaments intact. Slight extensor lag with ring finger. Sensation intact to light touch Digits are well-perfused, pink cap refill less than 2 seconds. Assessment & Plan Assessment/Plan (1) Closed fracture of shaft of fifth metacarpal bone: QUALIFIERS: Encounter type: initial encounter Fracture alignment: displaced Laterality: left Qualified Code(s): S62.327A - Displaced fracture of shaft of fifth metacarpal bone, left hand, initial encounter for closed fracture (2) Fracture of shaft of fourth metacarpal bone of left hand: QUALIFIERS: Encounter type: initial encounter Fracture type: c losed Fracture alignment: displaced Qualified Code(s): S62.325A - Displaced fracture of shaft of fourth metacarpal bone, left hand, initial encounter for closed fracture PLAN: Plan Assessment: POD# 8 ORIF of 4th and 5th metacarpal Plan: Pain control: per AUG. Kidney function changes: Improving Incision care: Leave open to air. Activity: Elevate. Doing well since restarting Warfarin without hematoma or significant bleeding. Completed 7 day course of Doxycycline for surgical prophylaxis. Follow up Thursday at [facility] with xrays 04/04 for suture removal Hand therapy referral already in place. Charges/Coding Procedures Integumentary [id number]: [id number] [facility] Visit
--- NOTE | 2025-04-04 09:23 | MDS.RN ---
Information for the MDS was obtained from review of the clinical record, interview of resident, staff, and direct observation of resident’s care.
== END 2025-03-31 12:25 | disposition home health service (06) | DRG 560 ==
PROVIDERS: Admitting Provider Internal Medicine; PCP Family Medicine; Visit Provider Internal Medicine
DX: S32.434D Nondisplaced fracture of anterior column [iliopubic] of right acetabulum, subsequent encounter for fracture with routine healing (principal); I48.20 Chronic atrial fibrillation, unspecified; J90 Pleural effusion, not elsewhere classified; J44.89 Other specified chronic obstructive pulmonary disease; N18.30 Chronic kidney disease, stage 3 unspecified; D53.9 Nutritional anemia, unspecified; I12.9 Hypertensive chronic kidney disease with stage 1 through stage 4 chronic kidney disease, or unspecified chronic kidney disease; F32.9 Major depressive disorder, single episode, unspecified; E55.9 Vitamin D deficiency, unspecified; E78.5 Hyperlipidemia, unspecified; W19.XXXD Unspecified fall, subsequent encounter; K42.9 Umbilical hernia without obstruction or gangrene; F41.9 Anxiety disorder, unspecified; S62.327D Displaced fracture of shaft of fifth metacarpal bone, left hand, subsequent encounter for fracture with routine healing; S32.511D Fracture of superior rim of right pubis, subsequent encounter for fracture with routine healing; S22.41XD Multiple fractures of ribs, right side, subsequent encounter for fracture with routine healing; Z87.891 Personal history of nicotine dependence; Z79.01 Long term (current) use of anticoagulants; Z86.718 Personal history of other venous thrombosis and embolism; S01.01XD Laceration without foreign body of scalp, subsequent encounter; S61.411D Laceration without foreign body of right hand, subsequent encounter; S62.325D Displaced fracture of shaft of fourth metacarpal bone, left hand, subsequent encounter for fracture with routine healing; Z79.899 Other long term (current) drug therapy; Z23 Encounter for immunization
CPT/HCPCS: 36415; 71101; 73130; 73502; 74018; 80048; 82306; 85025; 85610; 87811; 90480; 91322; 92507; 92523; 93005; 97110; 97116; 97162; 97165; 97530; 97535; 97802; A4216

== ENCOUNTER 2025-03-22 06:04 | Day surgery (SDC) | payer MEDICARE, SELFPAY ==
--- NOTE | 2025-03-21 14:50 | PAT.ANE_ITS ---
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 When Was Last Pacemaker Check QUESTION #4 FULL TEXT: You/Your Family Experience fever (hyperthermia) with Anesthesia Last Oral Intake Last Oral intake: Last Oral Intake NPO since Meds taken in AM with sips of water? Meds patient instructed to take am of surgery PONV PONV - craft center director: PONV - craft center director Female No 03/21/25 08:53 HX of Motion Sickness No 03/21/25 08:53 HX of N/V After Surgery No 03/21/25 08:53 Non-Smoker Yes 03/21/25 08:53 Duration of Surgery greater No 03/21/25 08:53 than 60 minutes Number of Risk Factors 1 03/21/25 08:53 PONV Score Low Risk 03/21/25 08:53 Height & Weight Height & Weight: Anesthesia: Height & Weight Height 5 ft 10 in 03/15/25 11:53 Respiratory Assessment Respiratory Assessment - craft center director: Respiratory Tract Infection Hx - craft center director Hx Respiratory Tract Infection No 03/21/25 08:53 STOP Sleep Apnea STOP Sleep Apnea - craft center director: STOP Sleep Apnea - craft center director Hx Hypertension Yes 03/21/25 08:53 Hx Sleep Apnea No 03/21/25 08:53 CPAP No 03/10/25 15:39 BIPAP No 03/10/25 15:39 Do you snore loudly (louder No 03/21/25 08:53 than talking or can be heard Do you often feel tired/ No 03/21/25 08:53 fatigued/ sleepy during daytime? Has anyone observed you stop No 03/21/25 08:53 breathing during sleep? STOP Results Negative 03/21/25 08:53 QUESTION #5 FULL TEXT : Do you snore loudly (louder than talking or can be heard through closed doors)? 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 Specify any problems Hx of Preganancy in last 3 N/A 03/21/25 08:53 Months Nurse Filling Out Transfusion [facility] 03/21/25 08:53 & Questions: Date: 03/21/25 03/21/25 08:53 Time: 09:08 03/21/25 08:53 Patient unable to answer at this time (ie. confused, unrespo /Reproduction History /Reproductive History - craft center director: /Reproductive Hx- craft center director Hx Now Gestational Age (in weeks): EDC: Hx Hx Para Hx Section SAB PFSH Medical History Wears glasses Alcohol use Bruising Walker as ambulation aid History of renal disease High cholesterol DVT (deep venous thrombosis) Excessive bleeding Easy bruising Blackout Former smoker History of echocardiogram Cardiology follow-up encounter History of atrial fibrillation Closed fracture of shaft of fifth metacarpal bone Fracture of shaft of fourth metacarpal bone of left hand Closed displaced fracture of neck of left fifth metacarpal bone Closed displaced fracture of neck of left fourth metacarpal bone Prostatic enlargement Disequilibrium Tobacco dependence in remission COPD exacerbation Obesity (BMI 30.0-34.9) Laceration of left hand Laceration of elbow, right History of basal cell carcinoma CKD (chronic kidney disease) Diverticulosis Hyperlipidemia History of colonic polyps Diarrhea Anxiety Hypertension History of DVT (deep vein thrombosis) Home Medications ?Medication ?Instructions ?Recorded ?Last Taken ?Type atorvastatin 20 mg tablet (Lipitor) 20 mg PO DAILY cho lesterol 02/19/18 03/02/25 History warfarin 5 mg tablet (Coumadin) 5 mg PO .tuwethfrsasu blood thinner 02/19/18 03/07/18 History warfarin 6 mg tablet 7.5 mg PO MO blood thinner 1 03/02/25 History albuterol sulfate 90 mcg/actuation 2 puff inhalation D AILY PRN 03/02/25 Unknown History aerosol inhaler shortness of breath or wheez ing doxycycline hyclate 100 mg tablet 100 mg PO BID antibi otic 03/02/25 Unknown History sertraline 100 mg tablet 100 mg PO DAILY depression 0 03/02/25 03/02/25 History umeclidinium 62.5 mcg-vilanterol 1 inh inhalation SABINA Y respiratory 03/02/25 03/02/25 History 25 mcg/actuation powdr for inhalation (Anoro Ellipta) acetaminophen 500 mg tablet 1,000 mg PO Q8H pain 03/10 Unknown History doxazosin 1 mg tablet 1 mg PO QHS heart 03/10/25 U nknown History gabapentin 100 mg capsule 100 mg PO TID nerve pain 08/30 Unknown History ipratropium 20 mcg-albuterol 100 1 puff inhalation Q6H PRN wheezing 03/10/25 Unknown History mcg/actuation mist for inhalation lisinopril 10 mg tablet 10 mg PO QHS hypertension Unknown History methocarbamol 500 mg tablet 500 mg PO Q8H muscle spasm s 03/10/25 Unknown History oxycodone 5 mg tablet 5 mg PO Q6H PRN pain (scale score 03/10/25 Unknown History 6-10) polyethylene glycol 3350 17 17 g PO DAILY bowels 03/10 Unknown History gram/dose oral powder (Miralax) Allergy/AdvReac Type Severity Reaction Status Date / Time No Known Allergies Allergy Verified 03/21/25 08:31 Family History Mother CAD (coronary artery disease) Father CAD (coronary artery disease) CHF (congestive heart failure) Brother Cancer Stomach Myocardial infarction Sister Asthma Surgical History S/P Mohs surgery for basal cell carcinoma History of colonoscopy (~2018) history bilateral cataract surgery History of elbow surgery History of tonsillectomy Social History (Updated 03/11/25 @ 14:[address] Heidy Vital DO) household members: spouse housing: house number of children: 2 current occupational status: retired Smoking Status: Former smoker how long ago did patient quit smoking: More than 25 years ago. alcohol intake: current alcohol intake frequency: 0-2 drinks per day Alcohol type: other details: [place] substance use type: does not use Audit: Pertinent Findings Pertinent Findings EKG Perinent findings: 11/09/2024. Atrial fibrillation with slow ventricular response. LAD. RBBB. Minimal LVH. 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 Nonspecific T wave abnormality. A-fib has replaced normal sinus rhythm compared to November 2023. Echo (EF%) pertinent findings: 11/20/2024. EF of 55%. No aortic stenosis. RVSP is 48 mmHg. Consult pertinent findings: 11/28/2024. Dr. Mejia?cardiology. 1. Atrial fibrillation-preserved LV function of 65%. Resume flecainide. Atenolol for age rate control. Consider outpatient cardioversion versus ablation. 2. Intermittent low blood pressures-Will discontinue amlodipine. 01/05/2025. Dr. Mejia?cardiology 1. Atrial fibrillation-no change with the flecainide. Atenolol dropped his heart rate into the 30s and 40s. Cardioversion discussed again. Decision is to maintain present regimen since he is slowly improving. 2. Balance and coordination are improved with exercises. Recommendation Anesthesia Recommendation Anesthesia recommendation: OPTIMIZED for anesthesia
[2025-03-22] VITALS (14 sets, daily range): BP systolic 107–140; BP diastolic 71–94; PULSE 77–103; RESP 14–17; TEMP 36.5–36.7; O2SAT 92–97; BMI 28.5
[2025-03-22] MEDS: Lactated Ringers 1,000 ML 15 ML IV (06:58)
--- NOTE | 2025-03-22 07:05 | PCM.PRE.AN2 ---
ASA Classification* ASA Classification ASA Classification: 3 Assessment & Plan Anesthesia* Anesthesia Assessment Anesthesia Assessment: Discussed sedation and/or anesthesia options, risks, benefits, and alternatives with patient/parents/legal guardian/POA. Questions invited. The patient/parents/legal guardian/POA seems to understand and agrees to proceed with anesthesia plan. Reviewed the physical assessment, medical history, allergy history and patient home medications list prior to surgery/procedure/anesthetic and documented any changes. Performed airway and anesthesia risk assessments. Anesthesia Type Anesthesia Type: General, MAC and Block History Source History Obtained from:: Patient and Chart Anesthesia Focused Assessment* Temperature: 97.7 F Pulse Rate: 77 Blood Pressure: 139/93 Respiratory Rate: 17 Pulse Ox: 95 Oxygen Delivery Method: Room Air Airway Assessment Mouth opens: >3 cm Mallampati Score: II Teeth Condition: Missing Neck Range of motion (ROM): Full ROM Labs Anesthesia Preop lab: CBC WBC, (4.4-11.0) 7.4 K/mm3 03/17/25, 05:15 RBC, (4.6-6.2) 3.52 M/mm3 L 03/17/25, 05:15 Hgb, (13.0-16.5) 11.3 g/dL L 03/17/25, 05:15 Hct, (40-54) 34.0 % L 03/17/25, 05:15 Plt Count, (150-450) 298 K/mm3 03/17/25, 05:15 CHEMISTRY Potassium, (3.3-5.1) 5.0 mmol/L 03/17/25, 05:15 Sodium, (133-145) 138 mmol/L 03/17/25, 05:15 Magnesium, (1.5-2.2) 2.1 mg/dL 03/03/25, 00:32 Phosphorus, (2.7-4.5) 3.8 mg/dL 03/03/25, 00:32 BUN, (4-19) 34 mg/dL H 03/17/25, 05:15 Creatinine, (0.70-1.20) 1.07 mg/dL 03/17/25, 05:15 Glucose, (70-99) 108 mg/dL H 03/17/25, 05:15 TSH, (0.300-4.200) 4.240 uIU/mL H 03/03/25, 04:46 COAG PT, (11.7-14.9) 18.7 SECONDS H 03/20/25, 08:15 Pre-Assessment Diagnosis/Proposed Procedure Planned Operative Procedure(s): ORIF INTERNAL FIXATION LEFT HAND,METACARPAL FRACTURES, POSSIBLE BONE GRAFTING Anesthesia History Anesthesia History - byproducts extractor: Anesthesia History - byproducts extractor Hx Hospitalization No 03/21/25 08:53 Any Problems With Anesthesia No 03/21/25 08:53 Cholinesterase deficiency No 03/21/25 08:53 You/Your Family Experience No 03/21/25 08:53 fever (hyperthermia) with Relationship Recent Exposure to Contagious No 08/16/20 05:50 Disease Does patient have nerve No 03/21/25 08:53 stimulator Patient instructed to have device shut off --Does patient have Pacemaker No 03/22/25 06:59 or ICD? When Was Last Pacemaker Check QUESTION #4 FULL TEXT: You/Your Family Experience fever (hyperthermia) with Anesthesia Last Oral Intake Last Oral intake: Last Oral Intake NPO since 05:00 03/22/25 06:59 Meds taken in AM with sips of Yes 03/22/25 06:59 water? Meds patient instructed to take am of surgery PONV PONV - byproducts extractor: PONV - byproducts extractor Female No 03/21/25 08:53 HX of Motion Sickness No 03/21/25 08:53 HX of N/V After Surgery No 03/21/25 08:53 Non-Smoker Yes 03/21/25 08:53 Duration of Surgery greater No 03/21/25 08:53 than 60 minutes Number of Risk Factors 1 03/21/25 08:53 PONV Score Low Risk 03/21/25 08:53 Height & Weight Height & Weight: Anesthesia: Height & Weight Height 5 ft 10 in 03/22/25 06:59 Weight: 90.265 kg 03/22/25 06:59 Body Mass Index (BMI) 28.5 03/22/25 06:59 Respiratory Assessment Respiratory Assessment - byproducts extractor: Respiratory Tract Infection Hx - byproducts extractor Hx Respiratory Tract Infection No 03/21/25 08:53 STOP Sleep Apnea STOP Sleep Apnea - byproducts extractor: STOP Sleep Apnea - byproducts extractor Hx Hypertension Yes 03/21/25 08:53 Hx Sleep Apnea No 03/21/25 08:53 CPAP No 03/10/25 15:39 BIPAP No 03/10/25 15:39 Do you snore loudly (louder No 03/21/25 08:53 than talking or can be heard Do you often feel tired/ No 03/21/25 08:53 fatigued/ sleepy during daytime? Has anyone observed you stop No 03/21/25 08:53 breathing during sleep? STOP Results Negative 03/21/25 08:53 QUESTION #5 FULL TEXT : Do you snore loudly (louder than talking or can be heard through closed doors)? Tobacco Use History Tobacco Use History - byproducts extractor: Tobacco Use History - byproducts extractor Tobacco Use Smoking Status Former smoker 03/21/25 08:53 Hx Tobacco Use No 03/21/25 08:53 Years Smoking Packs Smoked per Day Smoking Cessation Date was No - quit smoking greater 03/21/25 08:53 within the last 15 years than 15 years ago Hx Smoking Cessation Date Hx Smoking Cessation Counseling Hematologic Medial History Hematologic Hx - byproducts extractor: Hematologic Medical Hx - search engine optimization specialist Hx of Blood Transfusion No 03/21/25 08:53 Hx of Transfusion in last 3 No 03/21/25 08:53 Months Date of Last Transfusion (if within last 3 months) Ever experience any problems No 03/21/25 08:53 with transfusion(s)? Specify any problems Hx of Preganancy in last 3 N/A 03/21/25 08:53 Months Nurse Filling Out Transfusion VLEHMAN 03/21/25 08:53 & Questions: Date: 03/21/25 03/21/25 08:53 Time: 09:08 03/21/25 08:53 Patient unable to answer at this time (ie. confused, unrespo /Reproduction History /Reproductive History - byproducts extractor: /Reproductive Hx- byproducts extractor Hx Now Gestational Age (in weeks): EDC: Hx Hx Para Hx Section SAB Active Medications Active Medications: Current Medications Generic Name Dose Route Start Last Admin Trade Name Freq PRN Reason Stop Dose Admin Lactated Ringer's 1,000 mls @ 15 mls/hr 03/22/25 06:15 03/22/25 06:58 IV 15 mls/hr .Q48H POLLY Administration PFSH Medical History Wears glasses Alcohol use Bruising Walker as ambulation aid History of renal disease High cholesterol DVT (deep venous thrombosis) Excessive bleeding Easy bruising Blackout Former smoker History of echocardiogram Cardiology follow-up encounter History of atrial fibrillation Closed fracture of shaft of fifth metacarpal bone Fracture of shaft of fourth metacarpal bone of left hand Closed displaced fracture of neck of left fifth metacarpal bone Closed displaced fracture of neck of left fourth metacarpal bone Prostatic enlargement Disequilibrium Tobacco dependence in remission COPD exacerbation Obesity (BMI 30.0-34.9) Laceration of left hand Laceration of elbow, right History of basal cell carcinoma CKD (chronic kidney disease) Diverticulosis Hyperlipidemia History of colonic polyps Diarrhea Anxiety Hypertension History of DVT (deep vein thrombosis) Home Medications ?Medication ?Instructions ?Recorded ?Last Taken ?Type atorvastatin 20 mg tablet (Lipitor) 20 mg PO DAILY cholesterol 02/19/18 03/21/25 History warfarin 5 mg tablet (Coumadin) 5 mg PO .[facility] blood thinner 02/19/18 03/07/18 History warfarin 6 mg tablet 7.5 mg PO MO blood thinner 03/08/18 03/02/25 History albuterol sulfate 90 mcg/actuation 2 puff inhalation DAILY PRN 03/02/25 03/21/25 History aerosol inhaler shortness of breath or wheezing doxycycline hyclate 100 mg tablet 100 mg PO BID antibiotic 03/02/25 Unknown History sertraline 100 mg tablet 100 mg PO DAILY depression 03/02/25 03/21/25 History umeclidinium 62.5 mcg-vilanterol 1 inh inhalation DAILY respiratory 03/02/25 03/22/25 History 25 mcg/actuation powdr for inhalation (Anoro Ellipta) acetaminophen 500 mg tablet 1,000 mg PO Q8H pain 03/10/25 03/21/25 History doxazosin 1 mg tablet 1 mg PO QHS heart 03/10/25 03/21/25 History gabapentin 100 mg capsule 100 mg PO TID nerve pain 03/10/25 03/21/25 History ipratropium 20 mcg-albuterol 100 1 puff inhalation Q6H PRN wheezing 03/10/25 03/21/25 History mcg/actuation mist for inhalation lisinopril 10 mg tablet 10 mg PO QHS hypertension 03/10/25 03/21/25 History oxycodone 5 mg tablet 5 mg PO Q6H PRN pain (scale score 03/10/25 03/22/25 History 6-10) polyethylene glycol 3350 17 17 g PO DAILY bowels 03/10/25 Unknown History gram/dose oral powder (Miralax) cholecalciferol (vitamin D3) 25 1,000 unit PO DAILY 03/22/25 03/21/25 History mcg (1,000 unit) capsule (Vitamin D3) magnesium citrate 100 mg capsule 300 mg PO DAILY PRN constipation 03/22/25 Unknown History Allergy/AdvReac Type Severity Reaction Status Date / Time No Known Allergies Allergy Verified 03/22/25 06:56 Family History Mother CAD (coronary artery disease) Father CAD (coronary artery disease) CHF (congestive heart failure) Brother Cancer Stomach Myocardial infarction Sister Asthma Surgical History S/P Mohs surgery for basal cell carcinoma History of colonoscopy (~2018) history bilateral cataract surgery History of elbow surgery History of tonsillectomy Social History household members: spouse housing: house number of children: 2 current occupational status: retired Smoking Status: Former smoker how long ago did patient quit smoking: More than 25 years ago. alcohol intake: current alcohol intake frequency: 0-2 drinks per day Alcohol type: other details: adia's substance use type: does not use Review of Systems (Anesthesia) ROS Narrative System reviewed and no additional complaints, except as documented.
--- NOTE | 2025-03-22 07:12 | RAD_ITS ---
PROCEDURE: HAND MIN 3 VIEWS 03/22/2025 REASON FOR EXAM: METACARPAL FRACTURES, 4TH AND 5TH. POSSIBLE GRAFTING TECHNIQUE: Procedure Code: SHERMAN Modality: DX Procedure: HAND MIN 3 VIEWS Laterality: Left COMPARISON: Left hand x-ray 03/17/2025. FINDINGS: Bones: Intraoperative surgical correction of 4th and 5th metacarpal fractures. Joints: Unremarkable. Soft tissues: No soft tissue abnormalities. Number of images: 13. RAD/Hand Min 3 Views IMPRESSION: Intraoperative surgical correction of 4th and 5th metacarpal fractures with met allic hardware. Reading Location: [id number]
--- NOTE | 2025-03-22 07:16 | PCM.HP.STD ---
HPI - General HPI Narrative Patient is a 84-year-old male who initially presented to the ED on 03/02/2025 after losing his balance and falling down on his deck. He presented to the ED for initial trauma workup was found to have anterior column acetabular fracture without dislocation that was being treated nonoperatively, and pelvic hematoma, and left hand hand lacerations. He was transferred to outside hospital for IR interventions for his pelvis and states during his time there an x-ray of his left hand was obtained which noted his fractures and he was fitted with a splint. Patient was seen at bedside with Dr. Magana with his spouse and nurse at bedside. He does note there is a floppy sensation when he tries to use his left hand but states his pain is generally well-controlled at this time. He is right-hand dominant, he has never injured his left hand before. He does not have history of diabetes, he is not a smoker. He takes warfarin for chronic atrial fibrillation. He never had complications from anesthesia in the past. He denies changes to his medical health. He denies pain, but does feel his hand feel floppy. Denies numbness, weakness, tingling. [facility] Medical History Wears glasses Alcohol use Bruising Walker as ambulation aid History of renal disease High cholesterol DVT (deep venous thrombosis) Excessive bleeding Easy bruising Blackout Former smoker History of echocardiogram Cardiology follow-up encounter History of atrial fibrillation Closed fracture of shaft of fifth metacarpal bone Fracture of shaft of fourth metacarpal bone of left hand Closed displaced fracture of neck of left fifth metacarpal bone Closed displaced fracture of neck of left fourth metacarpal bone Prostatic enlargement Disequilibrium Tobacco dependence in remission COPD exacerbation Obesity (BMI 30.0-34.9) Laceration of left hand Laceration of elbow, right History of basal cell carcinoma CKD (chronic kidney disease) Diverticulosis Hyperlipidemia History of colonic polyps Diarrhea Anxiety Hypertension History of DVT (deep vein thrombosis) Home Medications ?Medication ?Instructions ?Recorded ?Last Taken ?Type atorvastatin 20 mg tablet (Lipitor) 20 mg PO DAILY cholesterol 02/19/18 03/21/25 History warfarin 5 mg tablet (Coumadin) 5 mg PO .[facility] blood thinner 02/19/18 03/07/18 History warfarin 6 mg tablet 7.5 mg PO MO blood thinner 03/08/18 03/02/25 History albuterol sulfate 90 mcg/actuation 2 puff inhalation DAILY PRN 03/02/25 03/21/25 History aerosol inhaler shortness of breath or wheezing doxycycline hyclate 100 mg tablet 100 mg PO BID antibiotic 03/02/25 Unknown History sertraline 100 mg tablet 100 mg PO DAILY depression 03/02/25 03/21/25 History umeclidinium 62.5 mcg-vilanterol 1 inh inhalation DAILY respiratory 03/02/25 03/22/25 History 25 mcg/actuation powdr for inhalation (Anoro Ellipta) acetaminophen 500 mg tablet 1,000 mg PO Q8H pain 03/10/25 03/21/25 History doxazosin 1 mg tablet 1 mg PO QHS heart 03/10/25 03/21/25 History gabapentin 100 mg capsule 100 mg PO TID nerve pain 03/10/25 03/21/25 History ipratropium 20 mcg-albuterol 100 1 puff inhalation Q6H PRN wheezing 03/10/25 03/21/25 History mcg/actuation mist for inhalation lisinopril 10 mg tablet 10 mg PO QHS hypertension 03/10/25 03/21/25 History oxycodone 5 mg tablet 5 mg PO Q6H PRN pain (scale score 03/10/25 03/22/25 History 6-10) polyethylene glycol 3350 17 17 g PO DAILY bowels 03/10/25 Unknown History gram/dose oral powder (Miralax) cholecalciferol (vitamin D3) 25 1,000 unit PO DAILY 03/22/25 03/21/25 History mcg (1,000 unit) capsule (Vitamin D3) magnesium citrate 100 mg capsule 300 mg PO DAILY PRN constipation 03/22/25 Unknown History Allergy/AdvReac Type Severity Reaction Status Date / Time No Known Allergies Allergy Verified 03/22/25 06:56 Family History Mother CAD (coronary artery disease) Father CAD (coronary artery disease) CHF (congestive heart failure) Brother Cancer Stomach Myocardial infarction Sister Asthma Surgical History S/P Mohs surgery for basal cell carcinoma History of colonoscopy (~2018) history bilateral cataract surgery History of elbow surgery History of tonsillectomy Social History household members: spouse housing: house number of children: 2 current occupational status: retired Smoking Status: Former smoker how long ago did patient quit smoking: More than 25 years ago. alcohol intake: current alcohol intake frequency: 0-2 drinks per day Alcohol type: other details: adia[place] substance use type: does not use ROS ROS Narrative General: Denies fever, chills HEENT: Denies headaches, vision changes, sore throat Cardio: Denies chest pain, leg edema Pulmonary: Denies shortness of pain, cough, wheezing GI: Denies nausea, vomiting, diarrhea Vital Signs Vital Signs Vital Signs: 03/22/25 06:59 03/22/25 06:59 03/22/25 07:07 Temperature 97.7 F L 97.7 F L Temperature Source Temporal Pulse Rate 77 77 Respiratory Rate 17 17 Respiratory Pattern Normal Blood Pressure 139/93 H 139/93 H Blood Pressure Mean 108 Blood Pressure Source Monitor Blood Pressure Position Semi-Fowlers Blood Pressure Location Left Arm Pulse Ox 95 95 Oxygen Delivery Method Room Air Room Air Weight Weight: 199 lb Body Mass Index (BMI) 28.5 Physical Exam Narrative Afebrile/VSS. Lying in bed no acute distress Left upper extremity: In wrist splint. Improved but ongoing 4th and 5th MCP swelling. Nontender to palpation, instability with 4th and 5th MCP manipulation Flexes and extends MCP, PIP, DIP. No scissorsing or angulation. Difficult with thumb pinky opposition Sensation intact to light touch [place], well perfused, cap refill <2 sec Assessment & Plan Assessment/Plan (1) Closed fracture of shaft of fifth metacarpal bone: QUALIFIERS: Encounter type: initial encounter Fracture alignment: displaced Laterality: left Qualified Code(s): S62.327A - Displaced fracture of shaft of fifth metacarpal bone, left hand, initial encounter for closed fracture (2) Closed displaced fracture of neck of left fifth metacarpal bone: QUALIFIERS: Encounter type: initial encounter Qualified Code(s): S62.337A - Displaced fracture of neck of fifth metacarpal bone, left hand, initial encounter for closed fracture PLAN: Plan Presents today for surgical stabilization surgery with Dr. Magana. Ancef 2 g ordered for perioperative surgical prophylaxis.
[2025-03-22 07:17] LABS: Prothrombin Time (Protime)PT. 16.2 SECONDS (11.7-14.9)
[2025-03-22] MEDS: Cefazolin 1 GM/5 ML Vial 2 GM IV (07:39)
[2025-03-22] MEDS: Lidocaine 1% (5 ml sdv) 5 ML Vial IV (07:39)
[2025-03-22] MEDS: fentaNYL 100 MCG/2 ML Ampul 50 MCG IV (07:40)
[2025-03-22] MEDS: Bupiv/Epi 0.25% 30 ML Vial (08:57)
--- NOTE | 2025-03-22 09:25 | PCM.POST.ANE ---
Anesthesia: Postop Eval I Current Vital Signs Temperature: 98 F Pulse Rate: 93 Blood Pressure: 140/71 Respiratory Rate: 16 Pulse Ox: 93 Oxygen Delivery Method: Room Air Assessment Airway patent: Yes Spontaneous unlabored respirations: Yes Mental status: Awake and Calm nausea: No Vomiting: No Anesthesia Complication: No Fluid Hydration Crystalloid volume administer (ml): 700 Total IV fluid infused: 700 Progress Note Anesthesia document: Postop Eval 1 completed: Yes
--- NOTE | 2025-03-22 09:50 | OP.PCM_ITS ---
Operative Report (Standard) Operative Information Date of Procedure: 03/22/25 Pre-Operative Diagnosis: Left ring and small finger metacarpal fractures Post-Operative Diagnosis: Same Surgery/Procedure Performed: 1) open reduction internal fixation left ring finger metacarpal fracture 2) open reduction internal fixation of the left small finger metacarpal fracture nursery helper: Yes Seedling Puller: Nael Zafar Tasks completed by first grade teacher: Retracting and Other (reduction of the fracture ) Type of Anesthesia: General/Supplemental (20 cc of quarter percent Marcaine with 1-200,000 epinephrine) RN Documented Start/Stop Times: Operation Date: 03/22/25 07:30 Case Time Into Pre-Op 03/22/25 06:13 Out of Pre-Op 03/22/25 07:27 Anesthesia Start 03/22/25 07:30 Into Room 03/22/25 07:30 Procedure Start 03/22/25 07:56 Procedure End 03/22/25 09:07 Anesthesia End 03/22/25 09:17 Out of Room 03/22/25 09:17 Into Recovery 03/22/25 09:20 Procedure Start Time: 07:56 Procedure Stop Time: 09:07 Select all DRAINS/GRAFTS/IMPLANTS that apply: Prosthetic device (Intramedullary screws for the ring and small finger metacarpal fractures) Prosthetic device details: Left ring finger metacarpal fracture 4.5 mm x 45 mm intramedullary screw, [employer]umed, lot #[id number], reference [id number], expiration 18 April 2029 Left small finger fracture Xsomed implant 4.5 mm x 40 mm intramedullary screw, reference [id number], lot [id number], expiration date 26 December 2027 Estimated Blood Loss: 10 cc Specimen collected: No Description of surgery: Indications: Patient is a delightful 84-year-old male who sustained multiple orthopedic traumatic injuries after a fall 3 weeks ago. His left hand metacarpal fractures were brought to my attention a few days ago while recovering in the rehab facility (transferred from [facility] to our hospital). I talked the patient about the risks, benefits, and alternatives to fixing the fractures and he elected to proceed. Procedure details: Patient was correctly identified in preoperative holding and taken back to the operating room he was administered general anesthesia and prepped and draped in sterile fashion. All proper timeouts were performed. A tourniquet was placed on the left arm to 250 mmHg and inflated after use of the Esmarch. I attempted closed reduction of the fractures with the mini C arm, however the fractures were stuck in place and malalignment. I therefore made a longitudinally oriented incision between the ring and small finger metacarpals with careful dissection using tenotomy scissors with care taken to protect the cutaneous nerve branches and the tendons. Immediately after entering the skin it was noticed that the EDC tendon had somehow ruptured from the closed injury/displaced fractures. This attritional rupture was identified. This appeared to have happened a while back (the injury was 3 weeks old) and therefore was not amenable to primary repair. The extensor digiti minimi tendon was intact, it appeared to be connected to the rest of the extensor mechanism, and therefore no repair was performed (secondary to significant gapping and no clinical exam/physical exam findings of any deficits/extensor lag or boutonniere). Attention was then turned to exposing the fracture sites and minimal periosteal stripping was performed with a Paradise elevator on the ring and small finger metacarpals. They were reduced with the fracture clamps and a longitudinal K wire from the MCP joint through the head of the metacarpals. Once the fractures had satisfactory alignment, the cavities were reamed and the metacarpals were measured for the proper length of the screws. The digital cascade was checked and was excellent as there was no finger overlap/scissoring or angulation. A 45 mm screw was placed in the ring finger metacarpal and a 40 mm screw was placed in the small finger metacarpal. The metacarpals were stressed under fluoroscopy and there was no movement (rigid fixation was obtained). The wounds were irrigated with copious amounts of Irrisept and normal saline. The tourniquet was let down and hemostasis was obtained with bipolar electrocautery. The incision sites were then closed with horizontal mattress 4-0 nylon suture. Xeroform Mirella and an Kaiden wrap were applied. Patient tolerated the procedure well. He was awakened and taken the PACU in stable condition. Postoperative plan: Nonweightbearing to the left hand, but he can use his hand for self-care and for eating. He should be platform weightbearing only for the left upper extremity. He should not do any lifting for a month with the left hand. PSU will follow while in house Surgical Findings: 1) Existing rupture of the EDC tendon to the small finger (with extensor digiti minimi tendon intact). Repair deferred secondary to extensor digiti minimi being intact and significant gap between frayed tendon ends that had likely been for some time and contracted (this is a 3-week-old injury). 2) Unable to reduce fractures without open reduction as there was callus developing around the fracture lines. Required open reduction and stabilization. Complications Complications: No
--- NOTE | 2025-03-22 12:10 | POSTOPAN2_ITS ---
Anesthesia Postop Eval I Sum Postop Eval Completion status Anesthesia document: Postop Eval 1 completed: Yes Anesthesia Postop Eval I Summary Anesthesia Postop Eval I Summary: Anesthesia Postop Eval I: Assessment Summary Airway patent Yes 03/22/25 09:27 [email or web address] Spontaneous unlabored Yes 03/22/25 09:27 [employer]ICER.[email or web address] respirations Mental status Awake,Calm 03/22/25 09:27 [employer] SERV[employer] OFFICER.JDEF nausea No 03/22/25 09:27 [employer] OFFICER.[email or web address] Vomiting No 03/22/25 09:27 [employer] SERVICE [email or web address] Anesthesia Postop Eval I: Fluid Summary Crystalloid volume administer 700 03/22/25 09:27 [employer] SERV[employer] [email or web address].[email or web address] (ml) Colloids volume administered ( ml) Blood Product volume administered (ml) Total IV fluid infused 700 03/22/25 09:27 [employer] SERV[employer] OFFICER.[email or web address] Anesthesia Postop Eval I: Summary Notes Anesthesia Complication No 03/22/25 09:27 [employer] SERV[employer] OFFICER.[email or web address] Anesthesia Complication Comment: Post-operative progress note Anesthesia: Postop Eval II Evaluation Mental status: Awake and Calm Pain Level: 1 nausea: No Vomiting: No Complications Anesthesia Complication: No
--- NOTE | 2025-03-22 12:10 | PCM.POSTANE2 ---
Anesthesia Postop Eval I Sum Postop Eval Completion status Anesthesia document: Postop Eval 1 completed: Yes Anesthesia Postop Eval I Summary Anesthesia Postop Eval I Summary: Anesthesia Postop Eval I: Assessment Summary Airway patent Yes 03/22/25 09:27 ANIMAL [email or web address] Spontaneous unlabored Yes 03/22/25 09:27 ANIMAL [email or web address] respirations Mental status Awake,Calm 03/22/25 09:27 ANIMAL [email or web address] nausea No 03/22/25 09:27 ANIMAL [email or web address] Vomiting No 03/22/25 09:27 ANIMAL [email or web address] Anesthesia Postop Eval I: Fluid Summary Crystalloid volume administer 700 03/22/25 09:27 ANIMAL [email or web address] (ml) Colloids volume administered ( ml) Blood Product volume administered (ml) Total IV fluid infused 700 03/22/25 09:27 ANIMAL [email or web address] Anesthesia Postop Eval I: Summary Notes Anesthesia Complication No 03/22/25 09:27 ANIMAL [email or web address] Anesthesia Complication Comment: Post-operative progress note Anesthesia: Postop Eval II Evaluation Mental status: Awake and Calm Pain Level: 1 nausea: No Vomiting: No Complications Anesthesia Complication: No
[2025-03-22 15:40] LABS: INR Fingerstick 1.4
== END 2025-03-22 11:50 | disposition home or self-care (01) ==
LOC: SDC 06:05 → AC 06:05
PROVIDERS: Anesthesiology; PCP Family Medicine; Referring Provider Surgery Plastic and Reconstructive Surgery; Visit Provider Surgery Plastic and Reconstructive Surgery
PROC: (CPT 26615; principal; 2025-03-22 07:15)
DX: S62.327A Displaced fracture of shaft of fifth metacarpal bone, left hand, initial encounter for closed fracture (principal); J44.9 Chronic obstructive pulmonary disease, unspecified; I48.20 Chronic atrial fibrillation, unspecified; S62.337A Displaced fracture of neck of fifth metacarpal bone, left hand, initial encounter for closed fracture; N18.9 Chronic kidney disease, unspecified; I12.9 Hypertensive chronic kidney disease with stage 1 through stage 4 chronic kidney disease, or unspecified chronic kidney disease; E78.00 Pure hypercholesterolemia, unspecified; Z79.51 Long term (current) use of inhaled steroids; Z79.899 Other long term (current) drug therapy; Z79.01 Long term (current) use of anticoagulants; Z86.718 Personal history of other venous thrombosis and embolism; Z87.891 Personal history of nicotine dependence; W19.XXXA Unspecified fall, initial encounter
CPT/HCPCS: 26615; 01830; 36416; 73130; 76000; 85610; C1713; A4216; J2405

== ENCOUNTER → 2025-03-28 | Outpatient (CLI) | payer MEDICARE, SELFPAY ==
--- NOTE | 2025-03-28 15:29 | CT_ITS ---
PROCEDURE: CT ABDOMEN/PELVIS WITH CONTRAST 03/28/2025 REASON FOR EXAM: OBSTRUCTION,ILEUS TECHNIQUE: Procedure Code: [id number] Modality: CT Procedure: ABDOMEN/PELVIS WITH CONTRAST Coronal and Sagittal reconstruction series were provided. CONTRAST: Isovue 370 VOLUME: 89 mL One or more dose reduction techniques were used (e.g., Automated exposure control, adjustment of the mA and/or kV according to patient size, use of iterative reconstruction technique. RADIATION DOSE SUMMARY: DLP: 1153.81 mGycm COMPARISON: 03/03/2025 FINDINGS: Lung bases: Small right and trace left pleural effusions. No airspace consolidation visualized. Nonspecific small pericardial effusion partially imaged. Liver: No significant abnormality. Gallbladder: Unremarkable. No biliary ductal dilatation. Spleen: Unremarkable. Pancreas: Unremarkable. Adrenals: Unremarkable. Kidneys: Symmetric enhancement. Few left small subcentimeter nonobstructive renal stones. No hydroureteronephrosis. Several small simple appearing left renal cysts. Bladder: Underdistended, grossly unremarkable. Reproductive Organs: Unremarkable, nonenlarged prostate. Bowel: Oral contrast propagates to the ileocecal junction, no bowel obstruction. Normal appendix. Mild distal colonic diverticulosis without evidence for active diverticulitis/colitis. Lymph nodes: No enlarged abdominopelvic lymph nodes. Vasculature: Normal caliber abdominal aorta. Mild atherosclerotic disease. Peritoneum / Retroperitoneum: No ascites or free air. Bones: Stable appearing subacute fractures involving the right iliac wing and extending to the right acetabulum and pubic rami. Nearly resolved previously seen right pelvic sidewall and retroperitoneal hemorrhage with small amount of residual liquified intramuscular hematoma adjacent to the medial wall of the right acetabulum. Mild degenerative changes of the spine. CT/Abdomen/Pelvis WITH Contrast IMPRESSION: 1. No bowel obstruction or other acute intra-abdominal abnormality. 2. Small right and trace left pleural effusions. Nonspecific small pericardial effusion. 3. Few tiny subcentimeter nonobstructive left renal stones. No hydronephrosis. 4. Stable appearing subacute right pelvic fractures. Resolving pelvic sidewall hematoma. Reading Location: [id number]
== END | disposition home or self-care (01) ==
PROVIDERS: PCP Family Medicine; Referring Provider Family Medicine Geriatric Medicine; Visit Provider Family Medicine Geriatric Medicine
DX: Z12.5 Encounter for screening for malignant neoplasm of prostate (principal)
CPT/HCPCS: 74177; Q9967; A4216

== ENCOUNTER → 2025-05-23 | Outpatient (CLI) | payer MEDICARE, SELFPAY ==
--- NOTE | 2025-05-23 09:07 | RAD_ITS ---
PROCEDURE: HAND MIN 3 VIEWS 05/23/2025 REASON FOR EXAM: LEFT HAND XRAY ASSESS HARDWARE TECHNIQUE: Procedure Code: [facility] Modality: DX Procedure: HAND MIN 3 VIEWS Left hand three views COMPARISON: April 25, 2025 FINDINGS: There is hardware fixation of the 4th and 5th metacarpals with anatomic alignment, and slight increase in callus formation compared to the prior with early bridging noted along the radial aspect of the 4th and 5th metacarpal fractures. Osteopenia is noted. Degenerative changes are present at the interphalangeal joints, unchanged. There is no visible atherosclerosis. RAD/Hand Min 3 Views IMPRESSION: Hardware in position. Reading Location: [facility]
== END | disposition home or self-care (01) ==
LOC: RAD 09:06
PROVIDERS: PCP Family Medicine; Referring Provider Physician Assistant; Visit Provider Physician Assistant
DX: S62.337A Displaced fracture of neck of fifth metacarpal bone, left hand, initial encounter for closed fracture (principal); S62.335A Displaced fracture of neck of fourth metacarpal bone, left hand, initial encounter for closed fracture
CPT/HCPCS: 73130